=== PATIENT | female | born 1965 | race Caucasian/White ===

== ENCOUNTER 2021-12-26 12:21 | Outpatient (REF) | payer BC, SELFPAY ==
--- OUTSIDE RECORDS SUMMARY | 2021-12-26 12:24 | XMS_ITS | Clinical Summary ---
:1965 Author Organization [facility] Address [address] [place] [address] Care Team Providers Name Role Phone Unassigned, [...] for each transition of care or referral. [facility] Allergies Active Allergy Reactions Severity Noted Date Comments Sulfa Antibiotics Rash 08/31/2014 Medications Medication Sig Dispensed Refills Start Date End Date Status [place]-3 Fatty Acids 2 times daily 0 Active [...] age to complete this topic Care Teams Industrial Psychology Teacher Relationship Specialty Start Date End Date Unassigned, Provider PCP - General 06/10/[address] [place] [id number]
--- OUTSIDE RECORDS SUMMARY | 2021-12-26 12:24 | XMS_ITS | Encounter Summary ---
:1965 Author Organization [facility] Address [address] [place] [address] Care Team Providers Name Role Phone Unassigned, Provider Primary Care Provider Unavailable Reason for Visit Reason Comments SKIN LESION Encounter Details Date Type Department Care Team Description 03/13/2017 Office Visit Eddie Galicia MD, Basal cell carcinoma of right forehead (Primary Dx); Dermatology PhD Basal cell carcinoma of scalp; [address] [employer] [address] [place] [address] History of basal cell carcin paulo; [place] [address] [address] BCNS (basal cell nevus syndrome) [phone] [place] [address] (Wo rk) Social History Tobacco [...] vertex/parietal scalp. The biopsies were performed at [facility]. She was last seen by me there [...] return for Mohs surgery x 3 sites. LER OPERATOR documented in this encounter Plan of Treatment [...] anomalies documented in this encounter Care Teams Central Supply Tech Relationship Specialty Start Date End Date Unassigned, Provider PCP - General 06/10/[address] [place] [address] documented as of this encounter
--- OUTSIDE RECORDS SUMMARY | 2021-12-26 12:24 | XMS_ITS | Encounter Summary ---
:1965 Author Organization [facility] Address [address] [place] [address] Care Team Providers Name Role Phone Unassigned, Provider Primary Care Provider Unavailable Reason for Visit Reason Comments Reschedule Appointment Encounter Details Date Type Department Care Team Description 05/08/2017 Telephone [facility] Eddie Cedillo MD, Reschedule Appointment [address] [place] [address] [place] [address] [place] [address] (Wo rk) Social History Tobacco Use Types Packs/Day Years Used Date Smoking Tobacco: Never Assessed Sex Assigned at Date Recorded Not on file documented as of this encounter Nursing Notes Anitha Cristina - 07/02/2017 8:02 AM CST 07/02/17: Patient LVM to cancel mohs surgery. She states she will call back to reschedule. WIG MAKER Anitha Cristina - 05/08/2017 1:40 PM CST 05/08/17: Returned call to patient to reschedule. Mohs surgery scheduled with PL in on 06-11-17,there were no orders for patient so referral will not go to surgery schedulers if cancelled. WIG MAKER documented in this encounter Plan of Treatment Not on filedocumented as of this encounter Visit Diagnoses Not on filedocumented in this encounter Care Teams Decorative Greens Cutter Relationship Specialty Start Date End Date Unassigned, Provider PCP - General 06/10/01 [address] [place] [address] documented as of this encounter
--- OUTSIDE RECORDS SUMMARY | 2021-12-26 12:24 | XMS_ITS | Encounter Summary ---
:1965 Author Organization [facility] Address [address] [place] [address] Care Team Providers Name Role Phone Unassigned, Provider Primary Care Provider Unavailable Reason for Visit Reason Comments Surgery, To Schedule Encounter Details Date Type Department Care Team Description 07/02/2017 Telephone [facility] Eddie Eddy MD, Surgery, To Schedule [address] [place] [address] [place] [address] [place] [address] (Wo rk) Social History Tobacco [...] 07/02/17 or schedule consult if further questions. NEERING PATTERNMAKER documented in this encounter Plan of Treatment Not on filedocumented as of this encounter Visit Diagnoses Not on filedocumented in this encounter Care Teams Echocardiography Tech Relationship Specialty Start Date End Date Unassigned, Provider PCP - General 06/10/01 [address] [place] [address] documented as of this encounter
--- OUTSIDE RECORDS SUMMARY | 2021-12-26 12:24 | XMS_ITS | Encounter Summary ---
:1965 Author Organization [facility] Address [address] [place] [address] Care Team Providers Name Role Phone Unassigned, Provider Primary Care Provider Unavailable Encounter Details Date Type Department Care Team Description 01/04/1999 PN Conversion Only [facility] Rian Meier [address] [facility] [place] [address] [facility] [phone] [place], [place] [address] (Wo rk) Social History Tobacco Use Types Packs/Day Years Used Date Smoking Tobacco: Never Assessed Sex Assigned at Date Recorded Not on file documented as of this encounter Progress Notes Conversion, [facility] - 01/04/1999 12:01 AM CDT Progress Notes signed by at 12/10/00 2614 Author: Logan Conversion Service: (none) Author Type: (none) Filed: 08/23/10 1231 Note Time: 01/04/99 0001 Status: Signed Floor Press Operator: Logan Conversion IMPRESSION: Abdominal pain secondary to [...] and return for any worsening symptoms. CC: [id number] C: DOCUMENT: [id number] SCHEDULED RESOURCE: RIAN MEIER MD Electronically signed by [facility] at 03/27/2016 2:50 PM UPHOLSTERER INSIDE documented in this encounter Plan of Treatment Not on filedocumented as of this encounter Procedures Procedure Name Priority Date/Time Associated Comments Diagnosis XR ABD FLAT AND Routine 01/04/1999 3:14 PM Result s for this [facility] CDT procedure are i n the results section. WET PREP PARK Routine 01/04/1999 2:44 PM Results for this [facility] CDT procedure ar e in the results [...] PICIOUS-APPEARING MASSES OR CALCIFICATIONS ARE SEEN. A WA LD DEXTROCONVEXITY OF THE LUMBAR SPINE IS [...] - HP CONVERSION Hemoglobin Conc 36.5 gm/dL [place] RDW 11.6 11.0 - HP CONVERSION 15.0 [...] Specific 1.010 1.005 - 25 HP CONVERSION [place] pH Urine 5.5 4.5 - 7.5 HP [...] CONVERSION Test (Urine) (01/04/1999 2:44 PM CDT) [facility] Method Time Signature Urine Negative No [...] Rian Meier MD LAB_1 Performing Organization Address City/[facility]/ZIP Code Phon e Number HP CONVERSION (ABNORMAL) Wet Prep [facility] (01/04/1999 2:44 PM CDT) [facility] Method Time Signature Wet Prep [place] ? No normal HP CONVERSION [place] [facility] Wet Prep Negative No normal HP CONVERSION Trich [facility] Wet Prep WBC Few No normal HP CONVERSION [place] [facility] Wet Prep Moderate No normal HP CONVERSION Bacteria [facility] Wet Prep Clue Negative No normal HP CONVERSION Cells [facility] [place] Cl Wet Prep Positive (A) No normal HP CONVERSION [place] [facility] Wet Prep Negative No normal HP CONVERSION Amine Odor range [facility] Specimen (Source) Anatomical Collection Method Collection Time Re ceived Time Location / / Volume Laterality 01/04/1999 2:44 PM CDT Rian Meier MD LAB_1 Performing Organization Address City/State/ZIP Code Phon e Number HP CONVERSION documented in this encounter Visit Diagnoses Not on filedocumented in this encounter Care Teams Peanut Cleaner Relationship Specialty Start Date End Date Unassigned, Provider PCP - General 06/10/[address] [place] [address] documented as of this encounter
--- OUTSIDE RECORDS SUMMARY | 2021-12-26 12:24 | XMS_ITS | Encounter Summary ---
:1965 Author Organization [facility] Address [address] [place] [address] Care Team Providers Name Role Phone Unassigned, Provider Primary Care Provider Unavailable Reason for Visit Reason Onset Date Comments CONSULT 03/06/2017 Encounter Details Date Type Department Care Team Description 03/06/2017 Telephone [facility] Eddie Eddy MD, PhD CONSULT [address] [facility] [place] [address] [place], [place] [id number] (Wo rk) Social History Tobacco Use Types Packs/Day Years Used Date Smoking Tobacco: Never Assessed Sex Assigned at Date Recorded Not on file documented as of this encounter Nursing Notes Antonette Casiano RN - 03/06/2017 1:[address] Cedillo, consult scheduled with Ms. Kraus, former pt at [facility] who is exploring options for treatment of NBCCS and previously biopsied skin cancers. Appointment scheduled in . documented in this encounter Plan of Treatment Not on filedocumented as of this encounter Visit Diagnoses Not on filedocumented in this encounter Care Teams Construction Supervisor Relationship Specialty Start Date End Date Unassigned, Provider PCP - General 06/10/[address] [place] [address] documented as of this encounter
--- OUTSIDE RECORDS SUMMARY | 2021-12-26 12:24 | XMS_ITS | Encounter Summary ---
:1965 Author Organization [facility] Address [address] [place] [address] Care Team Providers Name Role Phone Unassigned, Provider Primary Care Provider Unavailable Reason for Referral Consult/Transfer Care (Routine) - Closed Specialty Diagnoses / Procedures Referred By Contact Refer red To Contact Diagnoses Recurrent basal cell carcinoma of forehead Basal cell carcinoma of scalp Eddie Cedillo MD, PhD [address] [place], [place] [address] Referral ID Status Reason Start Date Expiration Date Visits Requ ested Visits Authorized [id number] Closed 07/02/2017 10/01/2018 1 1 Scheduling Instructions Your provider has recommended an appoint ment with [facility]. A scheduler conveyor will contact you within the next 5 business days to assist you in setting up this appointment or you may call to schedule your appointment. This recommended service/s may not be covered by your insurance coverage. To find out your specific benefit coverage, please call t he number on your insurance card. RINARY MEDICINE SCIENTIST Reason for Visit Reason Comments Referral Encounter Details Date Type Department Care Team Description 07/02/2017 Notes/Orders Eddie Galicia MD, Recurrent basal cell carcinoma of forehead (Primary Dx); Dermatology PhD Basal cell carcinoma of scalp [address] [place] [address] [address] [phone] [place] [address] (Wo rk) Social History Tobacco [...] msg, spoke with pt): Home address : [address] [place] [address] Best Number/Person to Call: [phone] Remember, if contacting someone besides the pt, [...] neck documented in this encounter Care Teams Break Off Worker Relationship Specialty Start Date End Date Unassigned, Provider PCP - General 06/10/[address] [place] [address] documented as of this encounter
--- OUTSIDE RECORDS SUMMARY | 2021-12-26 12:24 | XMS_ITS | Continuity of Care Document ---
:1965 Author Organization [facility] Address [address] [address] [place] [address] Phone Care Team Providers Name Role Phone Campos Angel MD Unavailable Unavailable Allergies, Adverse Reactions, Alerts Substance Reaction Status Criticality TAPE, PERMEABLE ADHESIVE Rash Active No Info rmation Sulfa (Sulfonamide Antibiotics) Rash Active No Information Medications Medication Instructions Dosage Effective Dates Status Comment s (start - stop) TYLENOL (unknown take 2 tablet by Not Available - Active strength) oral route every 4 hours as needed IBUPROFEN (unknown take 1 capsule by Not Available - Acti ve strength) oral route every 4 hours as needed Cymbalta 60 mg take 1 capsule by 60 MG - Active capsule,delayed oral route every 2 release days Procedures Procedure Date Office Cons New/estab Mod Advance Directives Directive Yes / No Effective Date File Name No Information Encounters Encounter Practice Location Reason(s) Diagnoses Date Provider Provide rs Description For Visit Copied on Encounter Office Cons [facility] Right lower quadrant Jan- Stanley Referring New/estab [facility] Symptoms abdominal 0-201 Provider: Aniika MADIE, or painDietary [address]. Yudy [address] counseling and [address] [address], (chief surveillanceElevated Gretchen JARAMILLO H, [address] [place] complaint) blood-pressure Street [address] [place], [place], reading, w/o NE, Vu [place], [phone], diagnosis of [address], [place] [facility], [place], tel: [place], [phone]. [phone] tel: , [place]. [phone] tel: [phone] Family History Family Member Type Diagnosis Age At Onset Mother Problem (finding) Thyroid disorder Mother Problem (finding) gallbladder disease Mother Problem (finding) Melenoma Father Problem (finding) Type of lymphoma Payers Payer name Insurance type Covered democrat ID Authorization(s ) Esau Jones [facility] [id number] Social History Type Description Quantity Date Captured Comments Alcohol Use Details Caffeine Use Details Unknown Tobacco Use Status Current non-smoker Smoking Status Never smoker Non-Smoking Tobacco : No Details Available : No Details Available S Use Details Sex Female Vital Signs Date / Height Weight BMI Pulse Blood Temperature Respiratory Body Head Head Circ. Wt./Patel. BMI Pulse Inhaled Time: Rate Pressure Rate Surface Circumference Percenti le Percentile percentile Ox Ox Area 69.50 123.740 39.7 85 135/84 -2019 in kg 1 /min mm[Hg] 2:14 (272.80 kg/m PM lbs) carler (2) Chief Complaint And Reason For Visit From encounter dated '01/13/2019 14:30'. GI Symptoms or Concerns (chief complaint). Description: Gabriela Kraus is a 53-year-old woman with history of Gorlin syndrome, multiple skin cancers as a result, previous endometrial cancer and total hysterectomy and oophorectomy, parathyroid gland removal and jaw cyst removals, who presents for intermittent right-sided and right flank abdominal pain at least since the winter and spring of this year. Sheis sent by her primary care provider, Yudy Mathews.Gabriela says that this pain feels similar to kidney stone pain that she has had in the years past. However, she has had evaluation by urologist including CT abdomen and pelvis as well as specific urologic contrast studies of her kidneys and ureters without any abnormality detected. Last CT scan on October 20, 2018, did show a small hypodensity in the right lobe of the liver, most likely representing a cyst, which was stable from previous exams. She had colonic diverticulosis. She had a tiny gallstone versus small calcification in the gallbladder wall and evidence of prior appendectomy, hysterectomy and bilateral salpingo-oophorectomies. There is also a tiny lipoma in the proximal ascending colon.She did have a colonoscopy on September 04 of this year at [facility] with Dr. Yfn Fields. That exam was entirely normal with repeat recommended in 10 years.Gabriela states that usually this pain comes on and lasts for a couple of days at a fairly constant level before resolving. She does sometimes get the pain in the middle of the night and it will even wake her up at night. Sometimes the pain is related to eating particularly salty foods, but mostly it is not associated with eating or other GI functions. The pain is mostly in the right lower quadrant of the abdomen, but then seems to shoot through to her right mid back. She denies any other radiation. She has some mild nausea, but no vomiting. No change in appetite, dysphagia, or odynophagia. No constipation, diarrhea, melena, or hematochezia and no association of the pain with malfunction.She has occasionally taken NSAIDs for the pain, but denies any chronic NSAID use. No positional changes make the pain better or worse. The pain actually only comes on every few months, so currently it has been a few weeks since she has had pain episode.Gabriela is single. 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 She does not use tobacco. She rarely drinks alcohol.She does have a family history of gallbladder disease in her mother. Her father had lymphoma. She denies any other GI disorders, malignanciesin her family. Reason For Referral Reason For Referral No Information Plan Of Treatment Date Type Action Status Goal Lifestyle education regarding di et completed History Of Present Illness Encounter Date Complaint History Of Present I llness GI Symptoms or Concerns Gabriela Kraus is a 53-year-old woman with history of Gorlin syndrome, multiple skin cancers as a result, previous end ometrial cancer and total hysterectomy and oop horectomy, parathyroid gland removal and ja w cyst removals, who presents for intermi ttent right-sided and right flank abdomina l pain at least since the winter and spring of this year. She is sent by her primary care pro vider, Yudy Mathews.Gabriela says that this pain feels similar to kidney stone pain that she has had in the years past. However, she has had evaluation by urologist including CT abdomen and pelvis as well as specific urologic co ntrast studies of her kidneys and ureters without any abnormality detected. Last CT sc an on October 20, 2018, did show a small hypoden sity in the right lobe of the liver, most like ly representing a cyst, which was stable fro m previous exams. She had colonic diverticulos is. She had a tiny gallstone versus sma ll calcification in the gallbladder wall and evidence of prior appendectomy Functional Status Date Functional Assessment No Information Instructions Date Instruction Additional Informati on Lifestyle education regarding diet Relat ed to Dietary counseling and surveillance Assessments Type Assessment Date assessment Right lower quadrant abdominal pain assessment Dietary counseling and surveillance assessment Elevated blood-pressure reading w/o diag nosis of hypertension impression Gabriela Kraus is a 53-year-old woman with a history of Gorlin syndrome and multiple skin cancers, jaw cysts, and endometrial cancer probably related to Gorlin syndro me status post total hysterectomy and salpingo-oophorectomy, who presents for episodic right lower quadrant abdominal pain radiating to her mid right back and has been present for the last few months. She has no other warning signs. She felt that her symptoms were similar to previous kidney stones, but she has had full evaluation with Urology without any abno rmalities detected. She has had specifically CT abdomen and pelvis in October of this year as well as colonoscopy in September of is year, neither of which showed any significant abnormaliti es. There was possible small gallstone noted on CT scan, mary ferguson.Most likely, her symptoms are not GI related given very l ittle association with GI function, eating or bowel movements. However, we did discuss the possibility of gallbladder r elated pain given that she has a gallstone on CT scan and had s ome occasional postprandial symptoms and night symptoms . However, it would be very atypical to feel the pain predomina ntly in the right lower quadrant with a gallbladder even t hilary it does sometimes radiate up to the right back. For now, I would not pursue any further evaluation of this gi ruperto her intermittent symptoms, but at some point, we could co nsider HIDA scan if symptoms persisted and were more consist ent with gallbladder pain.I think it is equally or possibly m ore likely that she is having adhesive related pain, which she has had in the past, although she felt that it was a little b it different then. We discussed that very likely there would b e nothing to do about this, if it was the cause of her pain un less she were to have full blown obstruction, which is unlikel y.I do not think she meets criteria for functional GI disorde r unless her symptoms were to become more GI specific. With pr evious colonoscopy and CT scan, further evaluation is unlikely to be helpful from a GI perspective. She has no other upper s ymptoms to indicate upper endoscopy at this time.She will fo llow up with her primary care doctor and contact me shoul d her symptoms become more persistent or have more GI features and we could discuss further workup as detailed above.Thank y ou so much for involving us in the care of this very pl easant woman. Patient Care Teams Name Effective Dates (start - stop) Status M embshar No Information
[2021-12-26 13:00] LABS: Basophils Absolute Auto 0.04 K/uL (0.00-0.30); Basophils Percent Auto 0.6 % (0.0-3.0); Eosinophils Absolute Auto 0.28 K/uL (0.00-0.50); Eosinophils Percent Auto 4.5 % (0.0-7.0); Hematocrit 42.7 % (33.0-51.0); Hemoglobin* 14.3 gm/dL (12.0-16.0); Immature Granulocytes Abs Auto 0.01 K/uL (0.00-0.30); Lymphocytes Absolute Auto 1.69 K/uL (0.90-2.90); Lymphocytes Percent Auto 27.4 % (20-44); Mean Corpuscular HGB Conc 34 gm/dL (32-36); Mean Corpuscular Hemoglobin 31 pg (26-34); Mean Corpuscular Volume 92 fL (80-100); Monocytes Percent Auto 7.1 % (0.0-11.0); Neutrophils Percent Auto 60.2 % (42.0-72.0); Platelet Count* 366 K/uL (140-440); RDW Coefficient of Variation % 13.1 % (11.5-15.5); Red Blood Count 4.63 m/uL (4.00-5.20); White Blood Count* 6.16 K/uL (4.50-11.00)
[2021-12-26 13:10] LABS: Slide Review Reflex No
[2021-12-26 13:50] LABS: Albumin* 4.2 g/dL (3.3-5.0)
[2021-12-26 13:51] LABS: Chloride* 101 mmol/L (96-114); Potassium* 4.1 mmol/L (3.6-5.1); Sodium* 137 mmol/L (135-149)
[2021-12-26 13:53] LABS: Alkaline Phosphatase* 131 U/L (40-150); Aspartate Amino Transferase* 26 U/L (12-35); Bilirubin Total* 0.6 mg/dL (0.1-1.5); Blood Urea Nitrogen* 21 mg/dL (7-30); Carbon Dioxide* 28 mmol/L (20-32); Creatinine* 0.8 mg/dL (0.5-1.5); Estimated Glomerular Filt Rate 86 ml/min; Gamma Glutamyl Transpeptidase* 20 U/L (8-55); Total Protein* 7.1 g/dL (6.0-8.3)
[2021-12-26 13:54] LABS: Alanine Aminotransferase* 16 U/L (4-35); Calcium* 9.2 mg/dL (8.4-10.6); Glucose* 105 mg/dL (60-115)
[2021-12-26 14:28] LABS: Ferritin* 60.8 ng/mL (11.1-264.0)
[2021-12-26 14:55] LABS: Vitamin B12* 437 pg/mL (243-894)
[2021-12-27 08:50] LABS: Thyroid Peroxidase (TPO) Ab 0.6 IU/mL (0.0-9.0)
[2021-12-27 12:19] LABS: CRP, High Sensitivity 6.7 mg/L (<=3.0); Ceruloplasmin 28 mg/dL (16-45); Homocysteine, Total 8 umol/L (0-15)
[2021-12-27 12:43] LABS: Cortisol, Serum 12.3 ug/dL
[2021-12-27 13:14] LABS: Insulin, Random 14 uIU/mL
[2021-12-27 21:06] LABS: Folate, Serum 16.8 ng/mL (>=5.9)
[2021-12-28 12:06] LABS: Copper, Serum/Plasma 151.8 ug/dL (80.0-155.0)
== END 2021-12-26 12:22 | disposition home or self-care (01) ==
LOC: NPINS 12:21
PROVIDERS: PCP Internal Medicine; Visit Provider Family Medicine
DX: E55.9 Vitamin D deficiency, unspecified (principal); Z87.42 Personal history of other diseases of the female genital tract; R73.9 Hyperglycemia, unspecified; R91.1 Solitary pulmonary nodule
CPT/HCPCS: 80053; 82390; 82525; 82533; 82607; 82728; 82746; 82977; 83090; 83525; 84630; 85025; 86141; 86376

== ENCOUNTER 2021-12-26 13:27 | Outpatient (CLI) | payer BC, SELFPAY ==
--- OUTSIDE RECORDS SUMMARY | 2021-12-26 10:13 | XMS_ITS | Encounter Summary ---
:1965 Author Organization [facility] Address [address] [place] [address] Care Team Providers Name Role Phone Unassigned, Provider Primary Care Provider Unavailable Reason for Visit Reason Comments SKIN LESION Encounter Details Date Type Department Care Team Description 03/13/2017 Office Visit Eddie Galicia MD, Basal cell carcinoma of right forehead (Primary Dx); Dermatology PhD Basal cell carcinoma of scalp; [address] [address] [place] [address] History of basal cell carcin paulo; [place] [address] BLVD BCNS (basal cell nevus syndrome) [phone] [place] [address] (Wo rk) Social History Tobacco Use Types Packs/Day Years Used Date Smoking Tobacco: Never Assessed Sex Assigned at Date Recorded Not on file documented as of this encounter Progress Notes Eddie Cedillo MD, PhD - 03/13/2017 3:45 PM CST CHIEF COMPLAINT: Basal cell nevus syndrome. HISTORY OF PRESENT ILLNESS: Ms. Gabriela Kraus is a 51 y.o. woman seen in the Dermatologic Surgery Clinic. The patient is here to discuss treatment options for biopsy-proven BCCs on her right superior forehead and right vertex/parietal scalp. The biopsies were performed at [facility]. She was last seen by me there approximately 1 1/2 years ago. 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 She had surgery for endometrial cancer in January 2016. MEDICATIONS: Reviewed and noted in EMR. ALLERGIES: None. Reviewed and noted in EMR. FAMILY HISTORY: Non-contributory. No family history of skin cancer. REVIEW OF SYSTEMS: Was unremarkable for any relevant issues for 10 point review of systems check. The patient had no other skin issues or constitutional symptoms, including fever, chills, malaise. OBJECTIVE: On examination, the patient is a healthy woman in no acute distress. She was alert and oriented x3. On her face, there were multiple scars with no evidence of recurrence. On her right forehead, there was a 5 mm erythematous macule. On her vertex and right vertex scalp, there were two pearly papules. ASSESSMENT AND PLAN: 1. Basal cell carcinomas of the right superior forehead, right vertex scalp, and vertex scalp. She will return for Mohs surgery of all three sites. One of the three sites will need a frozen biopsy. 2. History of BCCs. There was no evidence of recurrence. 3. Basal cell nevus syndrome. We discussed future follow up plans and skin checks. She would like tocontact the clinic if she notices anything suspicious. She will return for Mohs surgery x 3 sites. MBLER BRAZER documented in this encounter Plan of Treatment Not on filedocumented as of this encounter Visit Diagnoses Diagnosis Basal cell carcinoma of right forehead - Primary Basal cell carcinoma of skin of other an d unspecified parts of face Basal cell carcinoma of scalp Basal cell carcinoma of scalp and skin o f neck History of basal cell carcinoma Personal history of other malignant neop lasm of skin BCNS (basal cell nevus syndrome) Other specified congenital anomalies documented in this encounter Care Teams Compensation And Benefits Analyst Relationship Specialty Start Date End Date Unassigned, Provider PCP - General 06/10/[address] [place] [address] documented as of this encounter
--- OUTSIDE RECORDS SUMMARY | 2021-12-26 10:13 | XMS_ITS | Encounter Summary ---
:1965 Author Organization [facility] Address [address] [place] [address] Care Team Providers Name Role Phone Unassigned, Provider Primary Care Provider Unavailable Reason for Referral Consult/Transfer Care (Routine) - Closed Specialty Diagnoses / Procedures Referred By Contact Refer red To Contact Diagnoses Recurrent basal cell carcinoma of forehead Basal cell carcinoma of scalp Eddie Cedillo MD, PhD [address] [place], [place] [address] Referral ID Status Reason Start Date Expiration Date Visits Requ ested Visits Authorized [id number] Closed 07/02/2017 10/01/2018 1 1 Scheduling Instructions Your provider has recommended an appoint ment with [facility]. A assembler fitter will contact you within the next 5 business days to assist you in setting up this appointment or you may call to schedule your appointment. This recommended service/s may not be covered by your insurance coverage. To find out your specific benefit coverage, please call t he number on your insurance card. EXAMINER Reason for Visit Reason Comments Referral Encounter Details Date Type Department Care Team Description 07/02/2017 Notes/Orders Eddie Galicia MD, Recurrent basal cell carcinoma of forehead (Primary Dx); Dermatology PhD Basal cell carcinoma of scalp [address] [place] [address] [address] [phone] [place] [address] (Wo rk) Social History Tobacco Use Types Packs/Day Years Used Date Smoking Tobacco: Never Assessed Sex Assigned at Date Recorded Not on file documented as of this encounter Progress Notes Jonnie, Anitha L - 07/02/2017 8:04 AM CST Mohs / Derm Surg Referral Site 1: Site 2: Site 3: Site 4: Site R superior forehead R vertex/partietal scalp Diagnosis BCC BCC Size (optional) <1 cm 1-2 cm >2 cm Mohs or Exc Mohs Photos (Copy & Paste or type No Photo): How was pt informed? (ex: left msg, spoke with pt): Home address : [address] [place] [address] Best Number/Person to Call: [phone] Remember, if contacting someone besides the pt, make sure we have a verbal disclosure on file for that person. Notes: This is not a new referral. Orders were entered for tracking purposes as order was not entered and patient has cancelled appts. Richelle Duenas - 07/02/2017 8:04 AM CST 07/10/17: LVM Anitha Cristina - 07/02/2017 8:04 AM CST 07/18/17: LVM Anitha Cristina - 07/02/2017 8:04 AM CST 07/25/17: Letter sent. Three attempts made to reach patient with no answer/call back. documented in this encounter Plan of Treatment Scheduled Referrals Name Type Priority Associated Diagnoses Order S chedule Dermatology Surgery/Mohs Referral Routine Recurrent basal cell Ordered: 07/02/2017 Consult Adult carcinoma of for ehead Basal cell carcinoma of scalp documented as of this encounter Visit Diagnoses Diagnosis Recurrent basal cell carcinoma of forehe ad - Primary Basal cell carcinoma of skin of other an d unspecified parts of face Basal cell carcinoma of scalp Basal cell carcinoma of scalp and skin o f neck documented in this encounter Care Teams Associate Oracle Retail Relationship Specialty Start Date End Date Unassigned, Provider PCP - General 06/10/[address] [place] [address] documented as of this encounter
--- OUTSIDE RECORDS SUMMARY | 2021-12-26 10:13 | XMS_ITS | Encounter Summary ---
:1965 Author Organization [facility] Address [address] [place] [address] Care Team Providers Name Role Phone Unassigned, Provider Primary Care Provider Unavailable Reason for Visit Reason Onset Date Comments CONSULT 03/06/2017 Encounter Details Date Type Department Care Team Description 03/06/2017 [facility]phone [facility] Eddie Eddy MD, PhD CONSULT [address] [facility] [place] [address] [place], [place] [id number] (Wo rk) Social History Tobacco Use Types Packs/Day Years Used Date Smoking Tobacco: Never Assessed Sex Assigned at Date Recorded Not on file documented as of this encounter Nursing Notes Antonette Casiano RN - 03/06/2017 1:[address] Cedillo, consult scheduled with Ms. Kraus, former pt at [facility] who is exploring options for treatment of NBCCS and previously biopsied skin cancers. Appointment scheduled in . documented in this encounter Plan of Treatment Not on filedocumented as of this encounter Visit Diagnoses Not on filedocumented in this encounter Care Teams Senior Graduate Advisor Relationship Specialty Start Date End Date Unassigned, Provider PCP - General 06/10/[address] [place] [address] documented as of this encounter
--- OUTSIDE RECORDS SUMMARY | 2021-12-26 10:13 | XMS_ITS | Encounter Summary ---
:1965 Author Organization [facility] Address [address] [place] [address] Care Team Providers Name Role Phone Unassigned, Provider Primary Care Provider Unavailable Encounter Details Date Type Department Care Team Description 01/04/1999 PN Conversion Only [facility] Rian Meier [address] [facility] [place] [address] [address] [facility] [phone] [place], [place] [address] (Wo rk) Social History Tobacco Use Types Packs/Day Years Used Date Smoking Tobacco: Never Assessed Sex Assigned at Date Recorded Not on file documented as of this encounter Progress Notes Conversion, [facility] - 01/04/1999 12:01 AM CDT Progress Notes signed by at 12/10/00 [id number] Author: Logan Conversion Service: (none) Author Type: (none) Filed: 08/23/10 1231 Note Time: 01/04/99 0001 Status: Signed Coal Chute Worker: Logan Conversion IMPRESSION: Abdominal pain secondary to constipation, and vaginal yeast infection. SUBJECTIVE: The patient is a 33-year-old woman who presents to Urgent Care with abdominal discomfort which has been worsening over the past hour. She has had some generalized weakness and some nausea with this. She has not had any vomiting, fever. She had a normal bowel movement today. Last menstrual period was ten days ago. She is ALLERGIC TO SULFA. She takes no medications, and denies any significant past medical history. OBJECTIVE: VITAL SIGNS: T: 98.6, P: 78, R: 16. BP: 110/72. GENERAL: She appears uncomfortable, but not toxic. HEENT: Normal. HEART AND LUNGS: Normal. ABDOMEN: Soft. Tender only to deep palpation in the right lower quadrant. There is no guarding or rebound. White blood cell count is 5.4. Urine test is negative. Urinalysis is normal. T&Y is positive for yeast. X-ray upright and flat shows a very large amount of stool in the right side of the colon. ASSESSMENT: Abdominal pain secondary to constipation, and vaginal yeast infection. PLAN: Diflucan 150 mg p.o. times one. I recommended the patient take a laxative tonight to encourage bowel movements, and return for any worsening symptoms. CC: YUNG:[id number] C: DOCUMENT: [id number] SCHEDULED RESOURCE: RIAN MEIER MD Electronically signed by [facility] [place] [facility] at 03/27/2016 2:50 PM SATELLITE TV INSTALLER documented in this encounter Plan of Treatment Not on filedocumented as of this encounter Procedures Procedure Name Priority Date/Time Associated Comments Diagnosis XR ABD FLAT AND Routine 01/04/1999 3:14 PM Result s for this UPRIGHT CDT procedure are i n the results section. WET PREP PARK Routine 01/04/1999 2:44 PM Results for this [facility] CDT procedure ar e in the results section. URINALYSIS COMPLETE Routine 01/04/1999 2:44 PM Re sults for this HOLD CULTURE CDT procedure are i n the results section. COMPLETE BLOOD Routine 01/04/1999 2:44 PM Results for this COUNT-NO DIFF CDT procedure are in the results section. TEST Routine 01/04/1999 2:44 PM Results for this (URINE) CDT procedure are i n the results section. documented in this encounter Results XR Abd Flat And Upright (01/04/1999 3:14 PM CDT) Anatomical Region Laterality Modality Abdomen Other Specimen (Source) Anatomical Location Collection Method / Collectio n Time Received Time / Laterality Volume Impressions 01/04/1999 3:14 PM CDT : ?NONSPECIFIC ABDOMEN. FINDINGS: ?TWO-VIEW ABDOMEN, . ?NO OBSTRUCTIVE BOWEL GAS PATTERN O R FREE AIR IS SEEN. ?MODERATE RETAINED BOWEL CONTENT IN THE COLON, ESPECIALLY IN ?THE AREA OF THE ASCENDING COLON. ? ?NO SUSPICIOUS-APPEARING ?MASSES OR CALCIFICATIONS ARE SEEN. ??A MILD DEXTROCONVEXITY ?OF THE LUMBAR SPINE IS SEEN. TECH-ID : ? BJR TRANS-ID: ? STX Narrative 01/04/1999 3:14 PM CDT CLINICAL DATA: ?ABDOMEN AND NAUSEA FOR ONE DAY Procedure Note Trevor Gasca - 07/12/2016 CLINICAL DATA: ABDOMEN AND NAUSEA FOR ONE DAY IMPRESSION : NONSPECIFIC ABDOMEN. FINDINGS: TWO-VIEW ABDOMEN, . NO OBSTRUCTIVE BOWEL GAS PATTERN OR EMRE E AIR IS SEEN. MODERATE RETAINED BOWEL CONTENT IN THE COLON, ESPECIALLY IN THE AREA OF THE ASCENDING COLON. NO LIBAN PICIOUS-APPEARING MASSES OR CALCIFICATIONS ARE SEEN. A NC LD DEXTROCONVEXITY OF THE LUMBAR SPINE IS SEEN. TECH-ID : BJR TRANS-ID: STX Rian Meier MD RAD GD Complete Blood Count-No Diff (01/04/1999 2:44 PM CDT) P athologist Signature White Blood Cell 5.4 3.8 - 11.0 HP CONVERSIO N Count K/cmm Red Blood Cell 4.34 3.70 - HP CONVERSION Count 5.20 m/cmm Hemoglobin 14.2 11.8 - HP CONVERSION 15.5 gm/dL Hematocrit 41.9 35.0 - HP CONVERSION 46.0 % Mean Corpuscular 96.5 80.0 - HP CONVERSION Volume 100.0 fl Mean Corpuscular 32.7 27.0 - HP CONVERSION Hemoglobin 34.0 pg Mean Corpuscular 33.9 32.0 - HP CONVERSION Hemoglobin Conc 36.5 gm/dL [place] RDW 11.6 11.0 - HP CONVERSION 15.0 % Platelet Count 377 140 - 450 HP CONVERSION k/cmm Specimen (Source) Anatomical Collection Method Collection Time Re ceived Time Location / / Volume Laterality 01/04/1999 2:44 PM CDT Rian Meier MD LAB_1 Performing Organization Address City/State/ZIP Code Phon e Number HP CONVERSION (ABNORMAL) Urinalysis Complete Hold Culture (01/04/1999 2:44 PM CDT) Patholo gist Method Time Signature U Specific 1.010 1.005 - 25 HP CONVERSION [place] pH Urine 5.5 4.5 - 7.5 HP CONVERSION Protein Urine Negative Neg-Trac HP CONVERSION Glucose, Negative Neg-Trac HP CONVERSION Qualitative U Ketones Negative Negative HP CONVERSION U BILI Negative Negative HP CONVERSION Blood Urine Negative Negative HP CONVERSION Nitrite Urine Negative Negative HP CONVERSION Leukocyte Negative Negative HP CONVERSION Esterase Urine Urobilinogen Negative 0.2 - 1.0 HP CONVERSION Urine White Blood 0-2 0 - 3 /HPF HP CONVERSION Cells Urine Red Blood Cells 0-2 0 - 3 /HPF HP CONVERSION Urine Epithelial Cells Few Few /HPF HP CONVERSION Bacteria Urine Few (A) None HP CONVERSION Hold For Yes No normal HP CONVERSION Culture? range Specimen (Source) Anatomical Collection Method Collection Time Re ceived Time Location / / Volume Laterality 01/04/1999 2:44 PM CDT Rian Meier MD LAB_1 Performing Organization Address City/State/ZIP Code Phon e Number HP CONVERSION Test (Urine) (01/04/1999 2:44 PM CDT) [facility] Method Time Signature Urine Negative No normal HP CONVERSION Test range Comment: The sensitivity of this assay is 25 mIU/ mL. This test can detect as early as 10-12 days after conception. It may be positive before a first missed menses. A negative result does no t rule out an early . Specimen (Source) Anatomical Collection Method Collection Time Re ceived Time Location / / Volume Laterality 01/04/1999 2:44 PM CDT Rian Meier MD LAB_1 Performing Organization Address City/[facility]/ZIP Code Phon e Number HP CONVERSION (ABNORMAL) Wet Prep [facility] (01/04/1999 2:44 PM CDT) [facility] Method Time Signature Wet Prep [place] ? No normal HP CONVERSION [facility] Wet Prep Negative No normal HP CONVERSION [facility] Wet Prep WBC Few No normal HP CONVERSION [place] [facility] Wet Prep Moderate No normal HP CONVERSION Bacteria [facility] Wet Prep Clue Negative No normal HP CONVERSION Cells [facility] [place] [facility] Wet Prep Positive (A) No normal HP CONVERSION Yeast [place] [facility] Wet Prep Negative No normal HP CONVERSION Amine Odor range [facility] Specimen (Source) Anatomical Collection Method Collection Time Re ceived Time Location / / Volume Laterality 01/04/1999 2:44 PM CDT Rian Meier MD LAB_1 Performing Organization Address City/State/ZIP Code Phon e Number HP CONVERSION documented in this encounter Visit Diagnoses Not on filedocumented in this encounter Care Teams Senior Geotechnical Engineer Relationship Specialty Start Date End Date Unassigned, Provider PCP - General 06/10/[address] [place] [address] documented as of this encounter
--- OUTSIDE RECORDS SUMMARY | 2021-12-26 10:13 | XMS_ITS | Encounter Summary ---
:1965 Author Organization [facility] Address [address] [place] [address] Care Team Providers Name Role Phone Unassigned, Provider Primary Care Provider Unavailable Reason for Visit Reason Comments Reschedule Appointment Encounter Details Date Type Department Care Team Description 05/08/2017 Telephone [facility] Eddie Cedillo MD, Reschedule Appointment [address] [email or web address] [address] [place] [address] [place] [address] (Wo rk) Social History Tobacco Use Types Packs/Day Years Used Date Smoking Tobacco: Never Assessed Sex Assigned at Date Recorded Not on file documented as of this encounter Nursing Notes Anitha Cristina - 07/02/2017 8:02 AM CST 07/02/17: Patient LVM to cancel mohs surgery. She states she will call back to reschedule. ICATE MAKER Anitha Cristina - 05/08/2017 1:40 PM CST 05/08/17: Returned call to patient to reschedule. Mohs surgery scheduled with PL in on 06-11-17,there were no orders for patient so referral will not go to surgery schedulers if cancelled. ICATE MAKER documented in this encounter Plan of Treatment Not on filedocumented as of this encounter Visit Diagnoses Not on filedocumented in this encounter Care Teams Valet Attendant Relationship Specialty Start Date End Date Unassigned, Provider PCP - General 06/10/01 [address] [place] [address] documented as of this encounter
--- OUTSIDE RECORDS SUMMARY | 2021-12-26 10:13 | XMS_ITS | Clinical Summary ---
:1965 Author Organization [facility] Address [address] [place] [address] Care Team Providers Name Role Phone Unassigned, Provider Primary Care Provider Unavailable Source Comments You are receiving this document as you are listed as the primary care provider,follow-up provider, or the patient has been referred to you for consultation.This is in compliance with the Medicare and Medicaid EHR Incentive Program,which states Providers who transition their patient to another setting of careor provider of care or refers their patient to another provider of care shouldprovide summarycare record for each transition of care or referral. [facility] Allergies Active Allergy Reactions Severity Noted Date Comments Sulfa Antibiotics Rash 08/31/2014 Medications Medication Sig Dispensed Refills Start Date End Date Status [place]-3 Fatty Acids 2 times daily 0 Active (FISH OIL OR) buPROPion (WELLBUTRIN Take 300 mg by 0 02/18/2017 Active XL) 300 MG 24 hour mouth. release tablet Multiple Take 1 Cap by 0 Active Vitamins-Minerals mouth. (MULTIVITAL OR) prazosin (MINIPRESS) 1 Take 2 mg by 0 02/18/2017 Active MG capsule mouth. venlafaxine (EFFEXORXR) Take once daily 0 02/18/2017 Active 37.5 MG 24 hour release capsule Active Problems Problem Noted Date BCNS (basal cell nevus syndrome) 03/15/2017 Social History Tobacco Use Types Packs/Day Years Used Date Smoking Tobacco: Never Assessed Sex Assigned at Date Recorded Not on file Plan of Treatment Health Maintenance Due Date Last Done Comments Cervical Cancer Screening Due 1965 Colon Cancer Screening Plan Due 1965 Hep C Screening (Preventive 1965 Services) HepB (1) 1965 Mammogram 1965 COVID-19 Vaccine (#1) 1965 HIV Screening (Preventive 1980 Services) Adult Preventive Visit 1982 DTaP/Tdap/Td (1 - Tdap) 1983 Cholesterol 2009 Zoster/Shingles (1 of 2) 2014 Influenza (#1) 2022 HepA Aged Out No longer eligib le based on patient's age to complete this topic Hib Aged Out No longer eligib le based on patient's age to complete this topic IPV (Polio) Aged Out No longer eligib le based on patient's age to complete this topic MCV4 Aged Out No longer eligib le based on patient's age to complete this topic Pneumococcal Aged Out No longer eligib le based on patient's age to complete this topic Care Teams Sandblast Operator Relationship Specialty Start Date End Date Unassigned, Provider PCP - General 06/10/[address] [place] [id number]
--- OUTSIDE RECORDS SUMMARY | 2021-12-26 10:13 | XMS_ITS | Encounter Summary ---
:1965 Author Organization [facility] Address [address] [place] [address] Care Team Providers Name Role Phone Unassigned, Provider Primary Care Provider Unavailable Reason for Visit Reason Comments Surgery, To Schedule Encounter Details Date Type Department Care Team Description 07/02/2017 Telephone [facility] Eddie Eddy MD, Surgery, To Schedule [address] [place] [address] [place] [address] [place] [address] (Wo rk) Social History Tobacco Use Types Packs/Day Years Used Date Smoking Tobacco: Never Assessed Sex Assigned at Date Recorded Not on file documented as of this encounter Nursing Notes Anitha Cristina - 07/25/2017 10:46 AM CDT 07/25/17: Letter sent. Three attempts made to reach patient with no answer/call back. Samantha Elam RN - 07/02/2017 10:34 AM CST Placed call to patient no answer- left message to call back. Per Dr. Cedillo check in with patient to possibly reschedule mohs surgery that was cancelled today 07/02/17 or schedule consult if further questions. MATE documented in this encounter Plan of Treatment Not on filedocumented as of this encounter Visit Diagnoses Not on filedocumented in this encounter Care Teams Cloth Examiner Hand Relationship Specialty Start Date End Date Unassigned, Provider PCP - General 06/10/01 [address] [place] [address] documented as of this encounter
[2021-12-26 12:57] LABS: Cholesterol* 248 mg/dL (90-199)
[2021-12-26 12:58] LABS: HDL Cholesterol* 52 mg/dL (>=50); LDL Cholesterol Calculated 140 mg/dL (<100); Triglycerides* 279 mg/dL (40-149)
== END 2021-12-26 13:28 | disposition home or self-care (01) ==
PROVIDERS: PCP Internal Medicine; Visit Provider Internal Medicine
DX: E78.5 Hyperlipidemia, unspecified (principal)
CPT/HCPCS: 80061

== ENCOUNTER 2022-02-12 13:34 | Outpatient (REF) | payer BC, SELFPAY ==
--- OUTSIDE RECORDS SUMMARY | 2022-02-12 13:38 | XMS_ITS | Encounter Summary ---
:1965 Author Organization [facility] Address [address] [place] [address] Care Team Providers Name Role Phone Unassigned, Provider Primary Care Provider Unavailable Reason for Visit Reason Comments Surgery, To Schedule Encounter Details Date Type Department Care Team Description 07/02/2017 Telephone [facility] Eddie Eddy MD, Surgery, To Schedule [address] [place] [address] [place] [address] [place] [address] (Wo rk) Social History Tobacco [...] 07/02/17 or schedule consult if further questions. RVISOR FLESHING documented in this encounter Plan of Treatment Not on filedocumented as of this encounter Visit Diagnoses Not on filedocumented in this encounter Care Teams Aircraft Quality Control Inspector Relationship Specialty Start Date End Date Unassigned, Provider PCP - General 06/10/01 [address] [place] [address] documented as of this encounter
--- OUTSIDE RECORDS SUMMARY | 2022-02-12 13:38 | XMS_ITS | Encounter Summary ---
:1965 Author Organization [facility] Address [address] [place] [address] Care Team Providers Name Role Phone Unassigned, Provider Primary Care Provider Unavailable Reason for Referral Consult/Transfer Care (Routine) - Closed Specialty Diagnoses / Procedures Referred By Contact Refer red To Contact Diagnoses Recurrent basal cell carcinoma of forehead Basal cell carcinoma of scalp Eddie Cedillo MD, PhD [address] [place], [place] [address] Referral ID Status Reason Start Date Expiration Date Visits Requ ested Visits Authorized [id number] Closed 07/02/2017 10/01/2018 1 1 Scheduling Instructions Your provider has recommended an appoint ment with [facility]. A patient scheduler will contact you within the next 5 business days to assist you in setting up this appointment or you may call to schedule your appointment. This recommended service/s may not be covered by your insurance coverage. To find out your specific benefit coverage, please call t he number on your insurance card. CTOR OF REGULATORY AFFAIRS Reason for Visit Reason Comments Referral Encounter Details Date Type Department Care Team Description 07/02/2017 Notes/Orders Eddie Galicia MD, Recurrent basal cell carcinoma of forehead (Primary Dx); Dermatology PhD Basal cell carcinoma of scalp [address] [place] [address] [address] [phone] [place] [address] (Wo rk) Social History Tobacco [...] msg, spoke with pt): Home address : [address] [place] [address] Best Number/Person to Call: [phone] Remember, if contacting someone besides the pt, [...] neck documented in this encounter Care Teams Arson And Bomb Investigator Relationship Specialty Start Date End Date Unassigned, Provider PCP - General 06/10/[address] [place] [address] documented as of this encounter
--- OUTSIDE RECORDS SUMMARY | 2022-02-12 13:38 | XMS_ITS | Encounter Summary ---
:1965 Author Organization [facility] Address [address] [place] [address] Care Team Providers Name Role Phone Unassigned, Provider Primary Care Provider Unavailable Reason for Visit Reason Onset Date Comments CONSULT 03/06/2017 Encounter Details Date Type Department Care Team Description 03/06/2017 Telephone [facility] Eddie Eddy MD, PhD CONSULT [address] [facility] [place] [address] [place], [place] [id number] (Wo rk) Social History Tobacco Use Types Packs/Day Years Used Date Smoking Tobacco: Never Assessed Sex Assigned at Date Recorded Not on file documented as of this encounter Nursing Notes Antonette Casiano RN - 03/06/2017 1:[address] Cedillo, consult scheduled with Ms. Kraus, former pt at [facility] who is exploring options for treatment of NBCCS and previously biopsied skin cancers. Appointment scheduled in . documented in this encounter Plan of Treatment Not on filedocumented as of this encounter Visit Diagnoses Not on filedocumented in this encounter Care Teams Medical Surgery Nurse Relationship Specialty Start Date End Date Unassigned, Provider PCP - General 06/10/[address] [place] [address] documented as of this encounter
--- OUTSIDE RECORDS SUMMARY | 2022-02-12 13:38 | XMS_ITS | Encounter Summary ---
:1965 Author Organization Pending sale to [facility] Address [address] [place] [address] Care Team Providers Name Role Phone Unassigned, Provider Primary Care Provider Unavailable Encounter Details Date Type Department Care Team Description 01/04/1999 PN Conversion Only [facility] Rian Meier [address] [facility] [place] [address] [address] [facility] [phone] [place], [place] [address] (Wo rk) Social History Tobacco Use Types Packs/Day Years Used Date Smoking Tobacco: Never Assessed Sex Assigned at Date Recorded Not on file documented as of this encounter Progress Notes Conversion, [facility] - 01/04/1999 12:01 AM CDT Progress Notes signed by at 12/10/00 [id number] Author: Logan Conversion Service: (none) Author Type: (none) Filed: 08/23/10 1231 Note Time: 01/04/99 0001 Status: Signed Digital Photographic Printer: Logan Conversion IMPRESSION: Abdominal pain secondary to [...] and return for any worsening symptoms. CC: [id number] C: DOCUMENT: [id number] SCHEDULED RESOURCE: RIAN MEIER MD CUTTER documented in this encounter Plan of Treatment Not on filedocumented as of this encounter Procedures Procedure Name Priority Date/Time Associated Comments Diagnosis XR ABD FLAT AND Routine 01/04/1999 3:14 PM Result s for this [facility] CDT procedure are i n the results section. WET PREP PARK Routine 01/04/1999 2:44 PM Results for this [facility] CDT procedure ar e in the [...] PICIOUS-APPEARING MASSES OR CALCIFICATIONS ARE SEEN. A RI LD DEXTROCONVEXITY OF THE LUMBAR SPINE IS [...] - HP CONVERSION Hemoglobin Conc 36.5 gm/dL [place] RDW 11.6 11.0 - HP CONVERSION 15.0 [...] Specific 1.010 1.005 - 25 HP CONVERSION [place] pH Urine 5.5 4.5 - 7.5 HP [...] CONVERSION Test (Urine) (01/04/1999 2:44 PM CDT) [facility] Method Time Signature Urine Negative No [...] Rian Meier MD LAB_1 Performing Organization Address City/[facility]/ZIP Code Phon e Number HP CONVERSION (ABNORMAL) Wet Prep [facility] (01/04/1999 2:44 PM CDT) [facility] Method Time Signature Wet Prep [place] ? No normal HP CONVERSION [place] [facility] Wet Prep Negative No normal HP CONVERSION Trich [facility] Wet Prep WBC Few No normal HP CONVERSION Park [facility] Wet Prep Moderate No normal HP CONVERSION Bacteria [facility] Wet Prep Clue Negative No normal HP CONVERSION Cells [facility] Foard Cl Wet Prep Positive (A) No normal HP CONVERSION Yeast [place] [facility] Wet Prep Negative No normal HP CONVERSION Amine Odor range [facility] Specimen (Source) Anatomical Collection Method Collection Time Re ceived Time Location / / Volume Laterality 01/04/1999 2:44 PM CDT Rian Meier MD LAB_1 Performing Organization Address City/State/ZIP Code Phon e Number HP CONVERSION documented in this encounter Visit Diagnoses Not on filedocumented in this encounter Care Teams Enterprise Integration Architect Relationship Specialty Start Date End Date Unassigned, Provider PCP - General 06/10/[address] [place] [id number] documented as of this encounter
--- OUTSIDE RECORDS SUMMARY | 2022-02-12 13:38 | XMS_ITS | Clinical Summary ---
:1965 [facility] Address [address] [place] [address] Care Team Providers Name Role Phone Unassigned, [...] for each transition of care or referral. [facility] Allergies Active Allergy Reactions Severity Noted Date Comments Sulfa Antibiotics Rash 08/31/2014 Medications Medication Sig Dispensed Refills Start Date End Date Status [place]-3 Fatty Acids 2 times daily 0 Active [...] age to complete this topic Care Teams Admitting Manager Relationship Specialty Start Date End Date Unassigned, Provider PCP - General 06/10/[address] [place] [id number]
--- OUTSIDE RECORDS SUMMARY | 2022-02-12 13:38 | XMS_ITS | Encounter Summary ---
:1965 Author Organization [facility] Address [address] [place] [address] Care Team Providers Name Role Phone Unassigned, Provider Primary Care Provider Unavailable Reason for Visit Reason Comments SKIN LESION Encounter Details Date Type Department Care Team Description 03/13/2017 Office Visit Eddie Galicia MD, Basal cell carcinoma of right forehead (Primary Dx); Dermatology PhD Basal cell carcinoma of scalp; [address] [facility] [address] [place] [address] History of basal cell carcin paulo; [place] [address] BL[address] BCNS (basal cell nevus syndrome) [phone] [place] [address] (Wo rk) Social History Tobacco [...] vertex/parietal scalp. The biopsies were performed at [facility]. She was last seen by me [...] return for Mohs surgery x 3 sites. MECHANIC documented in this encounter Plan of Treatment [...] anomalies documented in this encounter Care Teams Cattle Sprayer Relationship Specialty Start Date End Date Unassigned, Provider PCP - General 06/10/[address] [place] [id number] documented as of this encounter
--- OUTSIDE RECORDS SUMMARY | 2022-02-12 13:38 | XMS_ITS | Clinical Summary ---
:1965 Author Organization [facility] [place] [address] Care Team Providers Name Role Phone Zenia Jon MD Primary Care Provider Allergies Active Allergy Reactions Severity Noted Date Comments Sulfa (Sulfonamide Antibiotics) Rash 5 Medications Medication Sig Dispensed Refills Start Date End Date Status buPROPion (WELLBUTRIN Take 1 tablet by 0 08/31/2014 Active XL) 300 mg mouth every Extended-Release morning. tablet LORazepam (ATIVAN) 0.5 Take 1 tablet by 0 08/31/2014 Active mg tab mouth once daily. albuterol HFA Inhale 2 Puffs by 1 Inhaler 1 09/15/2015 Active (VENTOLIN HFA) 90 mouth 4 times mcg/actuation daily if needed. inhalerIndications: Fill upon request URI, acute prazosin (MINIPRESS) 1 3 total daily 0 09/21/2016 Active mg capsule venlafaxine (EFFEXOR Take once daily 0 01/21/2017 Active XR) 37.5 mg Extended-Release capsule Active Problems Problem Noted Date Depression 09/01/2014 Overview: Followed by [facility], Dr. Davis. 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 Cedillo [facility]. Family History Medical History Relation Name Comments Heart Disease Father Hypertension Father Heart Disease Mother Hypertension Mother Relation Name Status Comments Father 06/2014 Mother Alive Social History Tobacco Use Types Packs/Day Years Used Date Never Smoker Smokeless Tobacco: Never Used Tobacco Cessation: Counseling Given: Yes Alcohol Use Standard Drinks/Week Comments No 0 (1 standard drink = 0.6 oz pure alcoho l) Sex Assigned at Date Recorded Not on file Obstetrics History Last Filed Vital Signs Vital Sign Reading Time Taken Comments Blood Pressure 129/82 04/15/2017 8:34 AM JUNIOR STAFF ACCOUNTANT Pulse 79 04/15/2017 8:34 AM JUNIOR STAFF ACCOUNTANT Temperature 37.3 ??C (99.2 ??F) 04/15/2017 8:34 AM JUNIOR STAFF ACCOUNTANT Respiratory Rate 16 02/07/2017 9:38 AM CDT Oxygen Saturation 97% 04/15/2017 8:34 AM JUNIOR STAFF ACCOUNTANT Inhaled Oxygen Concentration - - Weight 128.7 kg (283 lb 12.8 oz) 04/15/2017 8:34 AM JUNIOR STAFF ACCOUNTANT Height 177.8 cm (5' 10) 04/15/2017 8:34 AM JUNIOR STAFF ACCOUNTANT Body Mass Index 40.72 04/15/2017 8:34 AM JUNIOR STAFF ACCOUNTANT Plan of Treatment Health Maintenance Due Date Last Done Comments Hepatitis C screening for age 18-79 1982 Colonoscopy through age 75 2009 Lipids for age 45-75 2009 Mammogram for age 45-75 2009 Zoster (shingles) series for age 50+ 2014 (1 of 2) Depression screening for age 12+ 02/07/2018 02/07/2017, , 09/15/2015 BMI (ht and wt on same day) for age 1204/15/2018 04/15/2017, 09/21/2016, 18+ 09/15/2015 Tetanus booster 09/01/2019 08/31/2009 COVID-19 vaccine series (3 - Booster 10/15/2020 08/20/2020, 07/30/2020 for Pfizer series) Influenza for age 50-64 01/04/2022 Tdap Completed 08/31/2009 Results Not on filefrom Last 3 Months Care Teams Contract Associate Manager Relationship Specialty Start Date End Date Zenia Jon MD PCP - General Family Practice 04/15/17
--- OUTSIDE RECORDS SUMMARY | 2022-02-12 13:38 | XMS_ITS | Encounter Summary ---
:1965 Author [facility] Address [address] [place] [address] Care Team Providers Name Role Phone Unassigned, Provider Primary Care Provider Unavailable Reason for Visit Reason Comments Reschedule Appointment Encounter Details Date Type Department Care Team Description 05/08/2017 Telephone [facility] Eddie Cedillo MD, Reschedule Appointment [address] [place] [address] [place] [address] [place] [address] (Wo rk) Social History Tobacco Use Types Packs/Day Years Used Date Smoking Tobacco: Never Assessed Sex Assigned at Date Recorded Not on file documented as of this encounter Nursing Notes Anitha Cristina - 07/02/2017 8:02 AM CST 07/02/17: Patient LVM to cancel mohs surgery. She states she will call back to reschedule. ALT SPREADER Anitha Cristina - 05/08/2017 1:40 PM CST 05/08/17: Returned call to patient to reschedule. Mohs surgery scheduled with PL in on 06-11-17,there were no orders for patient so referral will not go to surgery schedulers if cancelled. ALT SPREADER documented in this encounter Plan of Treatment Not on filedocumented as of this encounter Visit Diagnoses Not on filedocumented in this encounter Care Teams Form Setter/Driver Relationship Specialty Start Date End Date Unassigned, Provider PCP - General 06/10/01 [address] [place] [address] documented as of this encounter
[2022-02-12 14:58] LABS: Basophils Percent Auto 0.6 % (0.0-3.0); Hematocrit 41.7 % (33.0-51.0); Hemoglobin* 13.9 gm/dL (12.0-16.0); Immature Granulocytes Abs Auto 0.03 K/uL (0.00-0.30); Lymphocytes Percent Auto 25.6 % (20-44); Mean Corpuscular HGB Conc 33 gm/dL (32-36); Mean Corpuscular Hemoglobin 31 pg (26-34); Mean Corpuscular Volume 93 fL (80-100); Monocytes Percent Auto 6.6 % (0.0-11.0); Neutrophils Percent Auto 62.7 % (42.0-72.0); Platelet Count* 402 K/uL (140-440); Red Blood Count 4.49 m/uL (4.00-5.20)
[2022-02-12 15:06] LABS: Slide Review Reflex No
[2022-02-12 15:07] LABS: White Blood Count* 6.21 K/uL (4.50-11.00)
[2022-02-12 16:18] LABS: Albumin* 4.5 g/dL (3.3-5.0); Chloride* 100 mmol/L (96-114)
[2022-02-12 16:19] LABS: Potassium* 4.1 mmol/L (3.6-5.1); Sodium* 137 mmol/L (135-149)
[2022-02-12 16:21] LABS: Alkaline Phosphatase* 123 U/L (40-150); Aspartate Amino Transferase* 28 U/L (12-35); Bilirubin Total* 0.7 mg/dL (0.1-1.5); Blood Urea Nitrogen* 17 mg/dL (7-30); Carbon Dioxide* 27 mmol/L (20-32); Creatinine* 0.8 mg/dL (0.5-1.5); Estimated Glomerular Filt Rate 86 ml/min; Total Protein* 7.1 g/dL (6.0-8.3)
[2022-02-12 16:22] LABS: Alanine Aminotransferase* 18 U/L (4-35); Calcium* 9.5 mg/dL (8.4-10.6); Gamma Glutamyl Transpeptidase* 18 U/L (8-55); Glucose* 112 mg/dL (60-115)
[2022-02-12 17:11] LABS: Vitamin B12* 475 pg/mL (243-894)
[2022-02-15 12:55] LABS: Copper, Serum/Plasma 131.3 ug/dL (80.0-155.0)
[2022-02-15 22:22] LABS: Insulin, Random 9 uIU/mL
== END 2022-02-12 13:35 | disposition home or self-care (01) ==
LOC: NPINS 13:34
PROVIDERS: PCP Internal Medicine; Visit Provider Family Medicine
DX: R06.02 Shortness of breath (principal); R73.9 Hyperglycemia, unspecified; R79.82 Elevated C-reactive protein (CRP); Z90.2 Acquired absence of lung [part of]
CPT/HCPCS: 80053; 82525; 82607; 82977; 83525; 85025

== ENCOUNTER 2022-08-16 15:33 | Emergency (ER) | payer BC, SELFPAY ==
[2022-08-16 15:42] VITALS: BP 130/83; PULSE 109; RESP 20; TEMP 36.2; O2SAT 93; BMI 38.7
[2022-08-16 15:47] LABS: Appearance Urine Clear (Clear); Bilirubin Urine Negative (Negative); Blood Urine 2+ (Negative); Color Urine Yellow (Yellow); Glucose Urine Negative (Negative); Ketones Urine Trace (Negative); Leukocyte Esterase Urine Negative (Negative); Nitrite Urine Negative (Negative); Protein Urine Negative (Negative); Specific Gravity Urine >= 1.030 (1.000-1.030); Urobilinogen Urine 0.2 (0.2-1.0)
[2022-08-16 15:57] LABS: RBC Urine 0-2 (0-2); Squamous Epithelial Cell Urine Few (None-Few); WBC Urine 0-2 (0-5)
--- NOTE | 2022-08-16 17:31 | CRLHL7_ITS ---
For Patients: As a result of the 21st Century Cures Act, medical imaging exams and procedure reports are released immediately into your electronic medical record. You may view this report before your referring provider. If you have questions, please contact your health care provider. INDICATION: .RT FLANK PAIN TECHNIQUE: CT abdomen and pelvis without contrast. COMPARISON: CT October 2018. FINDINGS: Lower chest: Trace left pleural effusion with associated left pleural thickening. Areas of linear atelectasis. A few scattered 2-3 millimeter indeterminate pulmonary nodules in the left lung base. ABDOMEN: Liver: Subcentimeter hypodensities are too small to characterize however statistically represent cysts. Gallbladder and biliary: Normal gallbladder without radiopaque stone. Normal caliber bile ducts. Spleen: Normal size and attenuation. Pancreas: The noncontrast pancreas is homogeneous in attenuation without peripancreatic inflammatory changes or ductal dilatation. Adrenal glands: Normal adrenal glands. Kidneys and ureters: Normal attenuation. No radio-opaque calculi. No hydroureteronephrosis. GI tract: Small hiatal hernia. Normal caliber small and large bowel loops. Appendix is not definitively visualized. Vascular structures: Normal caliber aorta with atherosclerotic calcifications. Lymph nodes: No lymphadenopathy in the abdomen or pelvis by size criteria. Peritoneum: No free air, free fluid, or focal drainable fluid collection. PELVIS: Genitourinary system: Questionable fluid fluid level within the urinary bladder versus artifact. Hysterectomy. SKELETAL STRUCTURES AND SOFT TISSUES: Old left-sided rib fractures. IMPRESSION: 1. No discrete acute abdominal or pelvic process. Obstruction. No hydroureteronephrosis. 2. Trace left pleural effusion with associated left pleural thickening. This is of indeterminate etiology and was not present on the 2019 exam. If this has not previously been addressed, consider aspiration and cytological evaluation. Differential considerations include thickening from chronic pleural effusion, less likely empyema, or a malignant effusion. 3. Questionable fluid fluid level within the urinary bladder versus artifact. Recommend correlation with urinalysis. 4. A few scattered 2-3 millimeter indeterminate pulmonary nodules in the left lung base. If the patient is considered low risk for primary lung cancer, these do not require additional follow-up. If the patient is considered high-risk for primary lung cancer, consider optional unenhanced chest CT in 12 months to document stability and to assess for underlying malignant potential per Fleischner society guidelines. Please note that all CT scans at this facility use dose modulation, iterative reconstruction, and/or weight-based dosing when appropriate to reduce radiation dose to as low as reasonably achievable. Dictated by Torey Almendarez MD @ 08/16/2022 6:44:40 PM (Electronically Signed)
--- OUTSIDE RECORDS SUMMARY | 2022-08-16 17:36 | XMS_ITS | Continuity of Care Document ---
Author Name Unknown Organization [facility] Address [address] [address] [place] [address] Phone Care Team Providers Care Torch Brazer Name Role Phone Campos Angel MD Unavailable Unavailable Allergies, Adverse Reactions, Alerts Substance Reaction Status Criticality TAPE, PERMEABLE ADHESIVE Rash Active No Information Sulfa (Sulfonamide Antibiotics) Rash Active No Information Medications Medication Instructions Dosage Effective Dates (start - stop) Status Comments TYLENOL (unknown strength) take 2 tablet by oral route every 4 hours as needed Not Available - Active IBUPROFEN (unknown strength) take 1 capsule by oral route every 4 hours as needed Not Available - Active Cymbalta 60 mg capsule,delayed release take 1 capsule by oral route every 2 days 60 MG - Active Procedures Procedure Date Office Cons New/estab Mod Advance Directives Directive Yes / No Effective Date File Name No Information Encounters Encounter Description Practice Location Reason(s) For Visit Diagnoses Date Provider Providers Copied on Encounter Office Cons New/estab Mod [facility], [address] [address], [place], [place], [id number], [place] tel:[phone] [facility] GI Symptoms or Concerns (chief complaint) Right lower quadrant abdominal painDietary counseling and surveillanceElevated blood-pressure reading, w/o diagnosis of htn [address] [facility] [address], [place], [place], [id number] , [place]. [phone] Referring Provider: Yudy Mathews MD H, [address] [facility], [place], [address]. tel:[phone] Family History Family Member Type Diagnosis Age At Onset Mother Problem (finding) Thyroid disorder Mother Problem (finding) gallbladder disease Mother Problem (finding) Melenoma Father Problem (finding) Type of lymphoma Payers Payer name Insurance type Covered libertarian ID Denise nicholson(s) Esau Jones [facility] [id number] Social History Type Description Quantity Date Captured Comments Alcohol Use Details Caffeine Use Details Unknown Tobacco Use Status Current non-smoker 18 Smoking Status Never smoker Non-Smoking Tobacco Use Details : No Details Available : No Details Available Sex Female Vital Signs Date / Time: Height Weight BMI Pulse Rate Blood Pressure Temperature Respiratory Rate Body Surface Area Head Circumference Head Circ. Percentile Wt./Patel. Percentile BMI percentile Pulse Ox Inhaled Ox 2:14 PM 69.50 in 123.740 kg (272.80 lbs) 39.7 1 kg/m eter (2) 85 /min 135/84 mm[Hg] Chief Complaint And Reason For Visit From [...] since the winter and spring of this year.She is sent by her primary care provider, Yudy [...] 20, 2018, did show a small hypodensity inthe right lobe of the liver, most likely representing a cyst, which was stable from previous exams.She had colonic diverticulosis. She had a tiny gallstone versus small calcification in the gallbladder wall and evidence of prior appendectomy, hysterectomy and bilateral salpingo- oophorectomies. There is also a tiny lipoma in the proximal ascending colon.She did have a colonoscopy on September 04 [facility] [address] [facility] with Dr. Yfn Fields. That exam was [...] or other GI functions. The pain is mostlyin the right lower quadrant of the abdomen, but then seems to shoot through to her right mid back. She denies any other radiation. She has some mild nausea, but no vomiting. No change in appetite, dysphagia, or odynophagia. No constipation, diarrhea, melena, or hematochezia and no association of the pain with malfunction.She has occasionally taken NSAIDs for the pain, but denies any chronic NSAIDuse. No positional changes make the pain better or worse. The pain actually only comes on every fewmonths, so currently it has been a few weeks since she has had pain episode.Gabriela is single. 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 She does not use tobacco. She rarely drinks alcohol.She does have a family history of gallbladder disease in her mother. Her father had lymphoma. She denies any other GI disorders, malignancies in her family. Reason For Referral Reason For Referral No Information Plan Of Treatment Date Type Action Status Goal Lifestyle education regardin g diet completed History Of Present Illness Encounter Date Complaint History Of Prese nt Illness GI Symptoms or Concerns Gabriela Cloud rt is a 53-year-old woman with history of Gorlin syndrome, multiple skin cancers as a result, previous endometrial cancer and total hysterectomy and oophorectomy, parathyroid gland removal and jaw cyst removals, who presents for intermittent right-sided and right flank abdominal pain at least since the winter and spring of this year. She is sent by her primary care provider, Yudy [...] of prior appendectomy Functional Status Date Functional Assessmen t No Information Instructions Date Instruction Additional Infor santosh Lifestyle education regarding di et Related to Dietary counseling and surveillance Assessments Type Assessment Date assessment Right lower quadrant abdominal p ain assessment Dietary counseling and surveilla nce assessment Elevated blood-pressure reading w/o diagnosis of hypertension impression Gabriela Kraus is a 53-y ear-old woman with a history of Gorlin syndrome and multiple skin cancers, jaw cysts, and endometrial cancer 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 She has no other warning signs. She felt that her symptoms were similar to previous kidney stones, but she has had full evaluation with Urology without any abnormalities detected. She has had specifically CT abdomen and pelvis in October of this year as well as colonoscopy in September of this year, neither of which showed any significant abnormalities. There was possible small gallstone noted on CT scan, however.Most likely, her symptoms are not GI related given very little association with GI function, eating or bowel movements. However, we did discuss the possibility of gallbladder related pain given that she has a gallstone on CT scan and had some occasional postprandial symptoms and night symptoms. However, it would be very atypical to feel the pain predominantly in the right lower quadrant with a gallbladder even though it does sometimes radiate up to the right back. For now, I would not pursue any further evaluation of this given her intermittent symptoms, but at some point, we could consider HIDA scan if symptoms persisted and were more consistent with gallbladder pain.I think it is equally or possibly more likely that she is having adhesive related pain, which she has had in the past, although she felt that it was a little bit different then. We discussed that very likely there would be nothing to do about this, if it was the cause of her pain unless she were to have full blown obstruction, which is unlikely.I do not think she meets criteria for functional GI disorder unless her symptoms were to become more GI specific. With previous colonoscopy and CT scan, further evaluation is unlikely to be helpful from a GI perspective. She has no other upper symptoms to indicate upper endoscopy at this time.She will follow up with her primary care doctor and contact me should her symptoms become more persistent or have more GI features and we could discuss further workup as detailed above.Thank you so much for involving us in the care of this very pleasant woman. Patient Care Teams Name Effective Dates (start - stop) Status Members No Information
[2022-08-16 18:15] VITALS: PULSE 77; RESP 16; O2SAT 100
--- NOTE | 2022-08-16 18:55 | ED_ITS ---
HPI - General Adult General Date Seen: 08/16/22 Chief complaint: Flank Pain Stated complaint: R flank pain Time Seen by Provider: 08/16/22 17:21 Source: patient Mode of arrival: ambulatory Limitations: no limitations History of Present Illness HPI narrative: Patient is a 57-year-old female who comes in with about three days of right flank pain. She has a history of numerous kidney stones and is convinced that she has another one. She has not noticed any gross hematuria. No dysuria, urgency, frequency. Her last stone was about three years ago. She has never had to have a surgical procedure or stent. No nausea, vomiting, diarrhea. No fevers or chills. Related Data Home Medications Medication Instructions Recorded Confirmed albuterol sulfate 90 mcg/actuation inhalation PRN 12/19/21 05/23/22 aerosol inhaler bupropion HCl 150 mg tablet,12 hr 150 mg PO BID 12/19/21 08/16/22 sustained-release duloxetine 30 mg capsule,delayed 30 mg PO BID 12/19/21 08/16/22 release hydroxyzine HCl 25 mg tablet 25 mg PO DAILY PRN 12/19/21 08/16/22 letrozole 2.5 mg tablet 2.5 mg PO DAILY 12/19/21 08/16/22 multivitamin 1 tab PO QAM 12/19/21 08/16/22 prazosin 2 mg capsule 2 mg PO .Bedtime 12/19/21 08/16/22 sumatriptan succinate 25 mg tablet 25 mg PO ONCE PRN 12/19/21 08/16/22 (Imitrex) Previous Rx's Medication Instructions Recorded prochlorperazine maleate 5 mg 5 - 10 mg PO Q6-8H PRN nausea and 04/18/22 tablet vomiting #30 tabs oxycodone 5 mg tablet 5 mg PO BID PRN pain #20 tabs 05/23/22 oxycodone 5 mg tablet 5 mg PO Q8H PRN pain #15 tabs 08/16/22 Allergies Allergy/AdvReac Type Severity Reaction Status Date / Time Sulfa (Sulfonamide Allergy Intermediate Rash Verified 08/16/22 15:49 Antibiotics) adhesive Allergy Mild Rash Verified 08/16/22 15:49 Review of Systems Narrative: Review of systems is outlined above otherwise noted to be negative. [facility] Medical History (Updated 08/16/22 @ 19:11 by Torey Mann MD) Anxiety (01/19/09) ?F41.9 - Anxiety disorder, unspecified (ICD-10) Depression (01/19/09) ?F32.A - Depression, unspecified (ICD-10) History of endometrial cancer ?Z85.42 - Personal history of malignant neoplasm of other parts of uterus (ICD-10) History of renal calculi ?Z87.442 - Personal history of urinary calculi (ICD-10) Hyperlipidemia (2019) ?E78.5 - Hyperlipidemia, unspecified (ICD-10) Insomnia ?G47.00 - Insomnia, unspecified (ICD-10) Nevoid basal cell carcinoma syndrome ?Q87.89 - Other specified congenital malformation syndromes, not elsewhere classified (ICD-10) Obesity with body mass index greater than 30 (11/16/10) ?E66.9 - Obesity, unspecified (ICD-10) Posttraumatic stress disorder ?F43.10 - Post-traumatic stress disorder, unspecified (ICD-10) Surgical History (Updated 12/19/21 @ 11:50 by Doris Ricci MD) History of appendectomy (11/16/10) ?Z90.49 - Acquired absence of other specified parts of digestive tract (ICD- 10) 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) ?Z90.2 - Acquired absence of lung [part of] (ICD-10) History of ovarian cystectomy (11/16/10) ?Z98.890 - Other specified postprocedural states (ICD-10) ?Z87.42 - Personal history of other diseases of the female genital tract (ICD-10) History of parathyroidectomy (01/22/11) ?E89.2 - Postprocedural hypoparathyroidism (ICD-10) History of total hysterectomy with bilateral salpingo-oophorectomy (BSO) (2015) ?Z90.710 - Acquired absence of both cervix and uterus (ICD-10) ?Z90.722 - Acquired absence of ovaries, bilateral (ICD-10) ?Z90.79 - Acquired absence of other genital organ(s) (ICD-10) Social History Smoking Status: Never smoker Do you use any of these nicotine containing products: None Second hand tobacco smoke exposure: No How often do you have a drink containing alcohol: never AUDIT-C Alcohol total score: 0 Non-prescribed substance use: denies use Little interest or pleasure in doing things: not at all Feeling down, depressed, or hopeless: several days Exam Narrative: Exam Narrative: Vitals noted. HEENT: Conjunctiva clear. Neck is supple without adenopathy, thyromegaly, carotid bruit. Lungs: Clear to auscultation in all valverde. No wheezes, rales, rhonchi. Heart: Regular rate and rhythm without murmur. Abdomen: Soft and nontender. No guarding, rigidity, rebound. Bowel sounds are normal. No palpable masses. Mild right CVA tenderness. Extremities: No cyanosis or edema. Good distal pulses. Skin: No abnormalities noted of the exposed skin. Neurologic: Awake, alert, fully oriented. Neurologic exam is nonfocal. Const: Vital Signs, click to edit/add: Vital Signs - 24 hr 08/16/22 15:42 08/16/22 18:15 Temperature 97.2 F L Pulse Rate [Pulse Oximeter] 109 H 77 Respiratory Rate 20 16 Blood Pressure [Ri ght Upper Arm] 130/83 Pulse Oximetry 93 100 Oxygen Delivery Me thod Room Air Room Air Course Course Hospital Course: Patient seen and examined. Urinalysis shows 2+ blood but is otherwise fairly unremarkable. CT of her abdomen and pelvis without contrast does not show hydronephrosis, hydroureter, or renal stones. Patient received some IV fluids and a dose of fentanyl with complete resolution of her pain. Vital Signs Vital signs: Initial Vital Signs Temperature 97.2 F L 08/16/22 15:42 Temperature Source Temporal Artery Scan 08/16/22 15:42 Pulse Rate 109 H 08/16/22 15:42 Respiratory Rate 20 08/16/22 15:42 Blood Pressure 130/83 08/16/22 15:42 Blood Pressure Mean 98 08/16/22 15:42 Blood Pressure Position Sitting 08/16/22 15:42 Pulse Oximetry 93 08/16/22 15:42 Oxygen Delivery Method Room Air 08/16/22 15:42 Vital Signs Temperature 97.2 F L 08/16/22 15:42 Pulse Rate 109 H 08/16/22 15:42 Respiratory Rate 20 08/16/22 15:42 Blood Pressure 130/83 08/16/22 15:42 Pulse Oximetry 93 08/16/22 15:42 Oxygen Delivery Method Room Air 08/16/22 15:42 Temperature 97.2 F L 08/16/22 15:42 Pulse Rate 77 08/16/22 18:15 Respiratory Rate 16 08/16/22 18:15 Blood Pressure 130/83 08/16/22 15:42 Pulse Oximetry 100 08/16/22 18:15 Oxygen Delivery Method Room Air 08/16/22 18:15 Medical Decision Making MDM Narrative Medical decision making narrative: We discussed that she may have had a kidney stone that has passed into the bladder. No evidence of obstructive stone at this time. She is comfortable discharging home. Lab Data Labs: Lab Results 08/16/22 Range/Units 15:43 Urine Color Yellow (Yellow) Urine Appearance Clear (Clear) Urine pH 5.0 (5.0-8.5) Ur Specific [place] >= 1.030 (1.000-1.030) Urine Protein Negative (Negative) Urine Glucose (UA) Negative (Negative) Urine Ketones Trace A (Negative) Urine Blood 2+ A (Negative) Urine Nitrite Negative (Negative) Urine Bilirubin Negative (Negative) Urine Urobilinogen 0.2 (0.2-1.0) Ur Leukocyte Esterase Negative (Negative) Urine RBC 0-2 (0-2) Urine WBC 0-2 (0-5) Ur Squamous Epith Cells Few (None-Few) Urine Bacteria None (None) Discharge Plan Discharge Clinical Impression: Acute right flank pain Patient Disposition: Home, Self-Care Condition: Stable Additional Instructions: Rest, push fluids, Tylenol or Oxycodone for pain. Follow up if the pain recurs. Prescriptions: New oxycodone 5 mg tablet 5 mg PO Q8H PRN (Reason: pain) Qty: 15 0RF No Action duloxetine 30 mg capsule,delayed release(DR/EC) 30 mg PO BID albuterol sulfate 90 mcg/actuation HFA aerosol inhaler inhalation PRN multivitamin Tablet 1 tab PO QAM bupropion HCl 150 mg tablet sustained-release 12 hr 150 mg PO BID letrozole 2.5 mg tablet 2.5 mg PO DAILY sumatriptan succinate [Imitrex] 25 mg tablet 25 mg PO ONCE PRN prazosin 2 mg capsule 2 mg PO .Bedtime hydroxyzine HCl 25 mg tablet 25 mg PO DAILY PRN oxycodone 5 mg tablet 5 mg PO BID PRN (Reason: pain) Qty: 20 0RF prochlorperazine maleate 5 mg tablet 5 - 10 mg PO Q6-8H PRN (Reason: nausea and vomiting) Qty: 30 1RF Rx Instructions: as needed for nausea Follow Up/Referrals: Doris Ricci MD [Primary Care Provider] - Stand Alone Forms: [facility] Info Instructions
== END 2022-08-16 19:12 | disposition home or self-care (01) ==
PROVIDERS: Emergency Provider Family Medicine; PCP Internal Medicine
DX: R10.9 Unspecified abdominal pain (principal)
CPT/HCPCS: 74176; 81001; 96374; 99282; 99283; 99284; J3010

== ENCOUNTER 2023-12-14 16:52 | Emergency (ER) | payer BC, SELFPAY ==
[2023-12-14 17:01] VITALS: BP 137/95; PULSE 102; RESP 18; O2SAT 95; BMI 35.9
--- NOTE | 2023-12-14 17:06 | ED_ITS ---
HPI - General Adult General Time Seen by Provider: 17:06 Date Seen: 12/14/23 Chief complaint: Fall/Minor Trauma Stated complaint: fell, possible cracked rib Time Seen by Provider: 12/14/23 17:06 Source: patient and RN notes reviewed Mode of arrival: ambulatory Limitations: no limitations History of Present Illness HPI narrative: Gabriela is a very pleasant 58-year-old female with a complicated past medical history including lung cancer with left upper lobe lobectomy history of endometrial cancer history of PTSD hyperlipidemia depression and anxiety who comes to the emergency room with her neighbor after she injured her ribs. Gabriela was sitting on a 4 ft ladder and her neighbors was coming down a branch and it fell toward her rather than away from her. It struck her on her left shoulder and upper back and unfortunately knocked her off of the ladder and on to the ground where she fell on her right side and felt like she heard a ?crunch. After this she had a few episodes of vomiting that she attributes to anxiety and the stress of the situation. At this time she is showing me the pain to be in her right flank. It worsens with movement. She also notes that she has a history of lung cancer with left upper lobe removal in the past. She is due for a CT next week to evaluate this. Gabriela does not have any shortness of breath or hemoptysis. She is not currently on any blood thinners. She denies hitting her head and has no neck pain that is new. She has not taken anything for pain at this point. Related Data Home Medications ?Medication ?Instructions ?Recorded ?Confirmed bupropion HCl 150 mg tablet,12 hr 150 mg PO BID 12/19/21 12/14/23 sustained-release multivitamin 1 tab PO QAM 12/19/21 08/19/23 sumatriptan succinate 25 mg tablet 25 mg PO ONCE PRN 12/19/21 08/19/23 (Imitrex) Allergies Allergy/AdvReac Type Severity Reaction Status Date / Time Sulfa (Sulfonamide Allergy Intermediate Rash Verified 08/19/23 14:08 Antibiotics) adhesive Allergy Mild Rash Verified 08/19/23 14:08 Review of Systems Status of ROS: Reports: 10 or more systems reviewed and unremarkable except as noted in History and below [facility] Medical History History of endometrial cancer ?Z85.42 - Personal history of malignant neoplasm of other parts of uterus (ICD-10) History of renal calculi ?Z87.442 - Personal history of urinary calculi (ICD-10) Surgical History History of total hysterectomy with bilateral salpingo-oophorectomy (BSO) (2016) ?Z90.710 - Acquired absence of both cervix and uterus (ICD-10) ?Z90.722 - Acquired absence of ovaries, bilateral (ICD-10) ?Z90.79 - Acquired absence of other genital organ(s) (ICD-10) History of parathyroidectomy (01/22/11) ?E89.2 - Postprocedural hypoparathyroidism (ICD-10) History of ovarian cystectomy (11/16/10) ?Z98.890 - Other specified postprocedural states (ICD-10) ?Z87.42 - Personal history of other diseases of the female genital tract (ICD-10) 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) ?Z90.2 - Acquired absence of lung [part of] (ICD-10) History of appendectomy (11/16/10) ?Z90.49 - Acquired absence of other specified parts of digestive tract (ICD- 10) Social History Smoking Status: Never smoker Do you use any of these nicotine containing products: None Second hand tobacco smoke exposure: No How often do you have a drink containing alcohol: never AUDIT-C Alcohol total score: 0 Non-prescribed substance use: denies use Little interest or pleasure in doing things: not at all Feeling down, depressed, or hopeless: several days Exam Narrative: Exam Narrative: Alert and oriented. Guarded in movement but able to move. Mentating normally with a GCS of 15. Head is atraumatic normocephalic. Neck is supple. Examination of the back shows 2 linear areas of erythema across the extreme upper aspect of the scapula/mid trapezius. Palpation in this area does not yield underlying tenderness. Areas of erythema include a 10 x 3 in a 0.5 mm stripe across the top superior to this is erythema that is skipped with total length of approximately 6 cm. Palpation down thoracic and lumbar spine without pain. Palpation to the lower right ribcage posterior lateral is tender to the touch. I do not palpate any crepitus. Lung sounds are auscultated bilaterally. Abdomen soft. Lower extremities with out pain and she is moving these lower extremities. Const: Vital Signs, click to edit/add: Vital Signs - 24 hr 12/14/23 17:01 12/14/23 19:10 12/14/23 19:15 Pulse Rate 79 79 Pulse Rate [Right Pulse Oximeter] 102 H Respiratory Rate 18 18 Blood Pressure [Ri ght Upper Arm] 137/95 H Pulse Oximetry 95 95 94 Oxygen Delivery Me thod Room Air Documenting provider has reviewed patient's vital signs: yes Course Course ED Course: Differential diagnosis includes but is not limited to soft tissue injury, rib fracture, kidney trauma, at this time patient is supposed to have CT next week. I do need to evaluate both her ribs as well as her right upper abdomen. Have elected to go ahead with CT of the chest and abdomen given location of injury and patient report need for CT of the chest next week. In regards to pain, we will be receive inserting an IV and therefore will give morphine 4 mg Zofran 4 mg. Patient had initially asked for Compazine but I do not feel comfortable giving too sedating medications at this time. Reevaluation(s) Reevaluation #1: Patient had requested further pain medication. Have given her Griffin 09/3250 tablet. Vital Signs Vital signs: Initial Vital Signs Temperature Source Temporal Artery Scan 12/14/23 17:01 Pulse Rate 102 H 12/14/23 17:01 Respiratory Rate 18 12/14/23 17:01 Blood Pressure 137/95 H 12/14/23 17:01 Blood Pressure Mean 109 H 12/14/23 17:01 Blood Pressure Position Sitting 12/14/23 17:01 Pulse Oximetry 95 12/14/23 17:01 Oxygen Delivery Method Room Air 12/14/23 17:01 Vital Signs Pulse Rate 102 H 12/14/23 17:01 Respiratory Rate 18 12/14/23 17:01 Blood Pressure 137/95 H 12/14/23 17:01 Pulse Oximetry 95 12/14/23 17:01 Oxygen Delivery Method Room Air 12/14/23 17:01 Pulse Rate 79 12/14/23 19:15 Respiratory Rate 18 12/14/23 19:10 Blood Pressure 137/95 H 12/14/23 17:01 Pulse Oximetry 94 12/14/23 19:15 Oxygen Delivery Method Room Air 12/14/23 17:01 Medications Administered Medications: Discontinued Medications Generic Name Dose Route Start Last Admin Trade Name Eladio PRN Reason Stop Dose Admin Hydrocodone Bitart/Acetaminophen 1 tab 12/14/23 18:53 12/14/23 19:10 Hydrocodone-Acetamin 5-325 Mg 1 Tab PO 12/14/23 18:54 1 tab ONCE ONE Administration Morphine Sulfate 4 mg 12/14/23 17:16 12/14/23 17:53 Morphine 4 Mg/Ml Inj IVP 12/14/23 17:17 4 mg ONCE ONE Administration Ondansetron HCl 4 mg 12/14/23 17:16 12/14/23 17:53 Ondansetron 2 Mg/Ml Inj IVP 12/14/23 17:17 4 mg ONCE ONE Administration Medical Decision Making MDM Narrative Medical decision making narrative: 1. Rib fracture-right posterior 10th rib is fractured. No underlying pneumothorax, hemothorax. Have discussed the importance of deep breathing and using incentive spirometer. For pain will have Gabriela use naproxen as directed. For breakthrough pain she may use Griffin 5/325 1-2 tablets p.o. q.4-6 hours p.r.n. 12. Via [facility] machine. Seek medical attention for hemoptysis, worsening pain is as needed. Demonstrated splinting if she would need to cough or sneeze. No evidence underlying of any a kidney trauma. CBC and comprehensive panel reassuring. 2. Pyuria-5-10 wbc's noted in urine but patient has no symptoms of a UTI. Will send this for culture. 3. History of you lung cancer-no evidence of masses on CT. A copy of the CT was sent with Gabriela so that she can take this to her physicians at [facility]. 4. Disposition-home at this time. Seek medical attention for worsening symptoms. Medical Records Medical records reviewed: Yes I reviewed the patient's medical records Lab Data Lab results reviewed: Yes I reviewed the patient's lab results Labs: Lab Results 12/14/23 12/14/23 Range/Units 17:45 17:46 WBC 9.68 (4.50-11.00) K/uL RBC 4.15 (4.00-5.20) m/uL Hgb 12.1 (12.0-16.0) gm/dL Hct 37.6 (33.0-51.0) % MCV 91 (80-100) fL MCH 29 (26-34) pg MCHC 32 (32-36) gm/dL RDW Coeff of Adrianna 13.8 (11.5-15.5) % Plt Count 336 (140-440) K/uL Neut % (Auto) 86.6 H (42.0-72.0) % Lymph % (Auto) 9.2 L (20-44) % Whitman % (Auto) 3.2 (0.0-11.0) % Eos % (Auto) 0.3 (0.0-7.0) % Baso % (Auto) 0.3 (0.0-3.0) % Neut # (Auto) 8.40 H (1.7-7.0) K/uL Lymph # (Auto) 0.90 (0.90-2.90) K/uL Whitman # (Auto) 0.30 (0.00-0.90) K/UL Eos # (Auto) 0.03 (0.00-0.50) K/uL Baso # (Auto) 0.03 (0.00-0.30) K/uL Abs Immat Gran (auto) 0.04 (0.00-0.30) K/uL Imm/Tot Granulo (auto) 0.4 % Sodium 137 (135-149) mmol/L Potassium 3.8 (3.6-5.1) mmol/L Chloride 103 (96-114) mmol/L Carbon Dioxide 24 (20-32) mmol/L Anion Gap 10 (7-15) mEq/L BUN 21 (7-30) mg/dL Creatinine 1.1 (0.5-1.5) mg/dL Estimated Creat Clear 59.55 Estimated GFR 58 ml/min Glucose 107 (60-115) mg/dL Calcium 9.2 (8.4-10.6) mg/dL Total Bilirubin 0.5 (0.1-1.5) mg/dL AST 32 (12-35) U/L ALT 17 (4-35) U/L Alkaline Phosphatase 124 (40-150) U/L Total Protein 7.5 (6.0-8.3) g/dL Albumin 4.6 (3.3-5.0) g/dL Urine Color Yellow (Yellow) Urine Appearance Slightly Cloudy A (Clear) Urine pH 5.0 (5.0-8.5) Ur Specific [place] >= 1.030 (1.000-1.030) Urine Protein Negative (Negative) Urine Glucose (UA) Negative (Negative) Urine Ketones 1+ A (Negative) Urine Blood Negative (Negative) Urine Nitrite Negative (Negative) Urine Bilirubin 1+ A (Negative) Urine Urobilinogen 0.2 (0.2-1.0) Ur Leukocyte Esterase Negative (Negative) Urine RBC 0-2 (0-2) Urine WBC 5-10 A (0-5) Ur Squamous Epith Cells Few (None-Few) Urine Bacteria Moderate A (None) Hyaline Casts Many A (None-Few) Imaging Data CT Chest/Ab/Pelvis: Attestation: I have reviewed the pertinent imaging results. Radiologist's impression: The thoracic inlet is unremarkable. The thyroid gland is within normal limits. The thoracic aorta is nonaneurysmal. There is no filling defect to suggest pulmonary embolus. There is no mediastinal, hilar, or axillary adenopathy. There is prior left lobectomy with left sided pleural thickening and parenchymal scar. There are small pulmonary nodules seen within the right upper, middle and lower lobes. There is no pneumothorax. Nondisplaced fracture of the posterior right 10th rib. No other displaced rib injury is identified. The thoracic vertebral body heights are grossly maintained with minimal endplate Schmorl`s defects. There is no significant spondylolisthesis or displaced fracture. There is mild dextroscoliotic deformity of the AP alignment. ABDOMEN AND PELVIS The liver is normal in attenuation and size. The portal vein is patent. The spleen is normal in attenuation and size. The gallbladder is unremarkable without radiopaque calculus. There is no intrahepatic or common ductal dilatation. The stomach and duodenum are grossly unremarkable. The pancreas is normal in enhancement without significant atrophy. The adrenal glands are unremarkable without evidence of adenoma. The kidneys are preserved and corticomedullary differentiation. There is no hydronephrosis or radiopaque calculus. There is a moderate diffuse amount of intracolonic stool. There is minimal distal colonic diverticulosis. The appendix is unremarkable without significant inflammatory change. The abdominal aorta is nonaneurysmal with no significant atherosclerotic disease. There is prior hysterectomy. There is no pathologically enlarged epigastric, mesenteric, retroperitoneal, or pelvic sidewall lymph node. The anterior abdominal wall is grossly intact without significant hernias. There is no free air or free fluid. Degenerative changes of the bilateral hips and sacroiliac joints are appreciated. The lumbar vertebral body heights are grossly maintained in satisfactory alignment without evidence of displaced fracture. Impression: 1. Nondisplaced fracture of the posterior right 10th rib. 2. Postoperative change of the left hemithorax status post lobectomy with left basilar pleural thickening. 3. No acute intra-abdominal abnormalities. Discharge Plan Discharge Clinical Impression: Closed rib fracture Qualifiers: Encounter type: initial encounter Rib fracture type: single rib Laterality: right Qualified Code(s): S22.31XA - Fracture of one rib, right side, initial encounter for closed fracture Patient Disposition: Home, Self-Care Condition: Improved Additional Instructions: Recommend Naprosyn for anti-inflammatory effect as well as pain control. Vicodin also known as hydrocodone and Tylenol combination is available in our [employer] meds machine. You may use this for pain not relieved by Naprosyn. It is important that you practice deep breathing exercises and if you have an incentive spirometer this would be helpful. I would recommend deep breathing at the top of every hour. We talked about splinting if you need to cough or sneeze. Return for worsening symptoms and as needed. Remember that any narcotic will cause constipation and I would suggest the use of Colace and MiraLax as stool softeners. Prescriptions: No Action multivitamin Tablet 1 tab PO QAM bupropion HCl 150 mg tablet sustained-release 12 hr 150 mg PO BID sumatriptan succinate [Imitrex] 25 mg tablet 25 mg PO ONCE PRN Follow Up/Referrals: Doris Ricci MD [Primary Care Provider] - Stand Alone Forms: [facility] Info Instructions
--- NOTE | 2023-12-14 17:16 | CRLHL7_ITS ---
For Patients: As a result of the Century Cures Act, medical imaging exams and procedure reports are released immediately into your electronic medical record. You may view this report before your referring provider. If you have questions, please contact your health care provider. Indication: Right flank trauma, history of left lobectomy, hysterectomy Technique: Volumetric multidetector CT images of the chest, abdomen, and pelvis were obtained after the administration of intravenous contrast. 122 cc Isovue 370 low osmolar intravenous contrast Comparison: CT abdomen and pelvis August 16, 2022 FINDINGS: CHEST The thoracic inlet is unremarkable. The thyroid gland is within normal limits. The thoracic aorta is nonaneurysmal. There is no filling defect to suggest pulmonary embolus. There is no mediastinal, hilar, or axillary adenopathy. There is prior left lobectomy with left sided pleural thickening and parenchymal scar. There are small pulmonary nodules seen within the right upper, middle and lower lobes. There is no pneumothorax. Nondisplaced fracture of the posterior right 10th rib. No other displaced rib injury is identified. The thoracic vertebral body heights are grossly maintained with minimal endplate Schmorl`s defects. There is no significant spondylolisthesis or displaced fracture. There is mild dextroscoliotic deformity of the AP alignment. ABDOMEN AND PELVIS The liver is normal in attenuation and size. The portal vein is patent. The spleen is normal in attenuation and size. The gallbladder is unremarkable without radiopaque calculus. There is no intrahepatic or common ductal dilatation. The stomach and duodenum are grossly unremarkable. The pancreas is normal in enhancement without significant atrophy. The adrenal glands are unremarkable without evidence of adenoma. The kidneys are preserved and corticomedullary differentiation. There is no hydronephrosis or radiopaque calculus. There is a moderate diffuse amount of intracolonic stool. There is minimal distal colonic diverticulosis. The appendix is unremarkable without significant inflammatory change. The abdominal aorta is nonaneurysmal with no significant atherosclerotic disease. There is prior hysterectomy. There is no pathologically enlarged epigastric, mesenteric, retroperitoneal, or pelvic sidewall lymph node. The anterior abdominal wall is grossly intact without significant hernias. There is no free air or free fluid. Degenerative changes of the bilateral hips and sacroiliac joints are appreciated. The lumbar vertebral body heights are grossly maintained in satisfactory alignment without evidence of displaced fracture. Impression: 1. Nondisplaced fracture of the posterior right 10th rib. 2. Postoperative change of the left hemithorax status post lobectomy with left basilar pleural thickening. 3. No acute intra-abdominal abnormalities. Please note that all CT scans at this facility use dose modulation, iterative reconstruction, and/or weight-based dosing when appropriate to reduce radiation dose to as low as reasonably achievable. Dictated by Nic Hernandez MD @ 12/14/2023 6:35:55 PM (Electronically Signed)
[2023-12-14] MEDS: ONDANSETRON 2 MG/ML inj 4 MG IVP (17:53)
[2023-12-14] MEDS: MORPHINE 4 MG/ML INJ IVP (17:53)
[2023-12-14 17:59] LABS: Basophils Absolute Auto 0.03 K/uL (0.00-0.30); Basophils Percent Auto 0.3 % (0.0-3.0); Eosinophils Absolute Auto 0.03 K/uL (0.00-0.50); Eosinophils Percent Auto 0.3 % (0.0-7.0); Hematocrit 37.6 % (33.0-51.0); Hemoglobin* 12.1 gm/dL (12.0-16.0); Immature Granulocytes Abs Auto 0.04 K/uL (0.00-0.30); Immature Granulocytes Pct Auto 0.4 %; Lymphocytes Percent Auto 9.2 % (20-44); Mean Corpuscular HGB Conc 32 gm/dL (32-36); Mean Corpuscular Hemoglobin 29 pg (26-34); Mean Corpuscular Volume 91 fL (80-100); Monocytes Percent Auto 3.2 % (0.0-11.0); Neutrophils Percent Auto 86.6 % (42.0-72.0); Platelet Count* 336 K/uL (140-440); RDW Coefficient of Variation % 13.8 % (11.5-15.5); Red Blood Count 4.15 m/uL (4.00-5.20); White Blood Count* 9.68 K/uL (4.50-11.00)
[2023-12-14 18:01] LABS: Slide Review Reflex No
[2023-12-14 18:05] LABS: Appearance Urine Slightly Cloudy (Clear); Bilirubin Urine 1+ (Negative); Blood Urine Negative (Negative); Color Urine Yellow (Yellow); Glucose Urine Negative (Negative); Ketones Urine 1+ (Negative); Leukocyte Esterase Urine Negative (Negative); Nitrite Urine Negative (Negative); Protein Urine Negative (Negative); Specific Gravity Urine >= 1.030 (1.000-1.030); Urobilinogen Urine 0.2 (0.2-1.0)
[2023-12-14 18:16] LABS: Chloride* 103 mmol/L (96-114)
[2023-12-14 18:17] LABS: Albumin* 4.6 g/dL (3.3-5.0); Potassium* 3.8 mmol/L (3.6-5.1); Sodium* 137 mmol/L (135-149)
[2023-12-14 18:20] LABS: Alanine Aminotransferase* 17 U/L (4-35); Alkaline Phosphatase* 124 U/L (40-150); Anion Gap 10 mEq/L (7-15); Aspartate Amino Transferase* 32 U/L (12-35); Bilirubin Total* 0.5 mg/dL (0.1-1.5); Blood Urea Nitrogen* 21 mg/dL (7-30); Calcium* 9.2 mg/dL (8.4-10.6); Carbon Dioxide* 24 mmol/L (20-32); Creatinine* 1.1 mg/dL (0.5-1.5); Est. Creatinine Clearance* 59.55; Estimated Glomerular Filt Rate 58 ml/min; Glucose* 107 mg/dL (60-115); Total Protein* 7.5 g/dL (6.0-8.3)
--- OUTSIDE RECORDS SUMMARY | 2023-12-14 18:25 | XMS_ITS | Clinical Summary ---
Author Organization [facility] Address [address], [place] [address] Care Team Providers Care Laceworker Name Role Phone Unassigned, Provider Primary Care Provider Unava ilable Source Comments You are receiving this document as you are listed as the primary care provider,follow-up provider, or the patient has been referred to you for consultation.This is in compliance with the Medicare andMedicaid EHR Incentive Program,which states Providers who transition their patient to another setting of careor provider of care or refers their patient to another provider of care shouldprovide summary care record for each transition of care or referral. Digital Lumens Allergies Active Allergy Reactions Criticality Noted Date Comments Sulfa Antibiotics Rash 08/31/2014 Medications Medication Sig Dispensed Refills Start Date End Date Status Keene-3 Fatty Acids (FISH OIL OR) 2 times daily Active buPROPion (WELLBUTRIN XL) 300 MG 24 hour release tablet Take 300 mg by mouth. 02/18/2017 Active Multiple Vitamins-Minerals (MULTIVITAL OR) Take 1 Cap by mouth. Active prazosin (MINIPRESS) 1 MG capsule Take 2 mg by mouth. 02/18/2017 Active venlafaxine (EFFEXORXR) 37.5 MG 24 hour release capsule Take once daily 02/18/2017 Active Active Problems Problem Noted Date Diagnosed Date BCNS (basal cell nevus syndrome) 03/15/2017 Social History Tobacco Use Types Packs/Day Years Used Date Smoking Tobacco: Never Assessed Sex and Gender Information Value Date Recorded Sex Assigned at Not on file Gender Identity Not on file Sexual Orientation Not on file Plan of Treatment Health Maintenance Due Date Last Done Comments Cervical Cancer Screening Due 1965 Colon Cancer Screening Plan Due 1964 Hep C Screening (Preventive Services) 1964 Mammogram 1964 HIV Screening (Preventive Services) 1980 Adult Preventive Visit 1982 DTaP/Tdap/Td (1 - Tdap) 1983 HepB (1) 1983 Cholesterol 2009 Zoster/Shingles (1 of 2) 2014 COVID-19 Vaccine (2022-2 4 season) 2023 Influenza (#1) 2024 HepA Aged Out No longer eligi ble based on patient's age to complete this topic Hib Aged Out No longer eligi ble based on patient's age to complete this topic IPV (Polio) Aged Out No longer eligi ble based on patient's age to complete this topic MCV4 Aged Out No longer eligi ble based on patient's age to complete this topic Pneumococcal Aged Out No longer eligi ble based on patient's age to complete this topic Care Teams Laceworker Relationship Specialty Start Date End Date Unassigned, Provider [address] [place] [id number] PCP - General 06/10/01
--- OUTSIDE RECORDS SUMMARY | 2023-12-14 18:25 | XMS_ITS | Clinical Summary ---
Author Organization [facility] Address [place], [place] [address] Care Team Providers Care Community Association Manager Name Role Phone Zenia Jon MD Primary Care Provider Allergies Active Allergy Reactions Criticality Noted Date Comments Sulfa (Sulfonamide Antibiotics) Rash 08/05 Medications Medication Sig Dispensed Refills Start Date End Date Status buPROPion (WELLBUTRIN XL) 300 mg Extended-Release tablet Take 1 tablet by mouth every morning. 0 08/31/2014 Active LORazepam (ATIVAN) 0.5 mg tab Take 1 tablet by mouth once daily. 0 08/31/2014 Active albuterol HFA (VENTOLIN HFA) 90 mcg/actuation inhalerIndications:UR I, acute Inhale 2 Puffs by mouth 4 times daily if needed. Fill upon request 1 Inhaler 1 09/15/2015 Active prazosin (MINIPRESS) 1 mg capsule 3 total daily 0 09/21/2016 Active venlafaxine (EFFEXOR XR) 37.5 mg Extended-Release capsule Take once daily 01/21/2017 Active Active Problems Problem Noted Date Diagnosed Date Depression 09/01/2014 Overview: Followed by [facility], Dr. Davis. 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 Cedillo of Dermatology. Family History Medical History Relation Name Comments Heart Disease Father Hypertension Father Heart Disease Mother Hypertension Mother Relation Name Status Comments Father 06/2014 Mother Alive Social History Tobacco Use Types Packs/Day Years Used Date Smoking Tobacco: Never Smokeless Tobacco: Never Tobacco Cessation:Counseling Given: Yes Alcohol Use Standard Drinks/Week Comments No 0 (1 standard drink = 0.6 oz pur e alcohol) Sex and Gender Information Value Date Recorded Sex Assigned at Not on file Gender Identity Not on file Sexual Orientation Not on file Obstetrics History Last Filed Vital Signs Vital Sign Reading Time Taken Comments Blood Pressure 129/82 04/15/2017 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 ROLL LATHE OPERATOR Pulse 79 04/15/2017 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 ROLL LATHE OPERATOR Temperature 37.3 ??C (99.2 ??F) 04/15/2017 8:34 AM CS T Respiratory Rate 16 02/07/2017 9:38 AM CDT Oxygen Saturation 97% 04/15/2017 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 ROLL LATHE OPERATOR Inhaled Oxygen Concentration - - Weight 128.7 kg (283 lb 12.8 oz) 04/15/2017 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 ROLL LATHE OPERATOR Height 177.8 cm (5' 10) 04/15/2017 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 ROLL LATHE OPERATOR Body Mass Index 40.72 04/15/2017 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 ROLL LATHE OPERATOR Plan of Treatment Health Maintenance Due Date Last Done Comments HIV for age 15-65 1979 Hepatitis C screening for ag e 18-79 1982 Colonoscopy through age 75 2009 Lipids for age 45-75 2009 Mammogram for age 45-75 2009 Zoster (shingles) series for age 50+ (1 of 2) 2014 Depression screening for age 12+ 02/07/2018 02/07/2017, 03/27/2016, 09/15/2015 BMI (ht and wt on same day) for age 18+ 04/15/2018 04/15/2017, 09/21/2016, 09/15/2015 Tetanus booster 09/01/2019 08/31/2009 COVID-19 vaccine series ( season) 2023 08/20/2020, 07/30/2020 Influenza for age 50-64 01/05/2024 Tdap Completed 08/31/2009 Pneumococcal series for age 6-64 Aged Out No longer eligible b ased on patient's age to complete this topic Care Teams Community Association Manager Relationship Specialty Start Date End Date Zenia Jon MD PCP - General Family Practice 04/15/17
[2023-12-14 18:32] LABS: RBC Urine 0-2 (0-2)
[2023-12-14 18:33] LABS: Bacteria Urine Moderate; Hyaline Casts Urine Many (None-Few); Squamous Epithelial Cell Urine Few (None-Few)
[2023-12-14 19:10] VITALS: PULSE 79; RESP 18; O2SAT 95
[2023-12-14] MEDS: HYDROCODONE-ACETAMIN 5-325 MG 1 TAB PO (19:10)
[2023-12-14 19:15] VITALS: PULSE 79; O2SAT 94
== END 2023-12-14 19:33 | disposition home or self-care (01) ==
PROVIDERS: Emergency Provider Family Medicine; PCP Internal Medicine
DX: S22.31XA Fracture of one rib, right side, initial encounter for closed fracture (principal); W11.XXXA Fall on and from ladder, initial encounter
CPT/HCPCS: 36415; 71260; 74177; 80053; 81001; 85025; 87086; 96374; 96375; 99284; A9270; J2270; J2405; Q9967

== ENCOUNTER 2024-10-28 19:10 | Emergency (ER) | payer BC, SELFPAY ==
--- OUTSIDE RECORDS SUMMARY | 2024-09-14 11:00 | XMS_ITS | Encounter Summary ---
Author Organization [facility] Address [address] [place] [address] Care Team Providers Care Shade Classifier Name Role Phone Cindy Ruiz Unavailable Trevor Espino MD Unavailable [phone] Jaci Whitlock APRN BREAD [employer] PASTRY BAKER Unavailable + Doris Ricci MD Unavailable Yudy Pompa MD Unavailable [phone] Mary Carmen Rodriguez MD Unavailable + Herber Lopez MD Unavailable [phone] Gloria Elizalde MD Unavailable [phone] Mamadou Bowie MD Primary Care Provider [phone] Mamadou Bowie MD Unavailable Makenzie Romano MD Unavailable [phone] Shani Stephenson MD Unavailable [phone] Ita Newton Unavailable Unavailable Kenya Jennings MD Unavailable [phone] Herber Lopez MD Unavailable [phone] Сергей Dumont [facility] Unavailable Unavailable Kenya Jennings MD Unavailable [phone] Jesse Arvizu MD Unavailable Encounter Details Date Type Department Care Team (Late st Contact Info) Description 09/14/2024 11:00 AM CDT [facility] [address] [place] [address] Severe episode of recurrent major depressive disorder, without psychotic features (H) (Primary Dx) Social History Tobacco Use Types Packs/Day Years Used Date Smoking Tobacco: Never Passive Smoke Exposure: Never Smokeless Tobacco: Never Alcohol Use Standard Drinks/Week Comments Not Currently 0 (1 standard drink = 0.6 oz pure alcohol) 1 drink every couple of weeks Social Connection and Isolation Panel [NHANES] A nswer Date Recorded Frequency of Communication with Friends and Fami ly Not on file 04/02/2024 How often do you get togethe r with friends or relatives? Three times a week 04/02/2024 Attends Jewish Services Not on file 04/02 Active Member of Clubs or Organizations Not on f ile 04/02/2024 Attends Club or Organization Meetings Not on jd e 04/02/2024 Marital Status Not on file 04/02/2024 PHQ-2 Answer Date Recorded PHQ-2 Score 3 09/15/2024 [facility] - Occupational Stress Questionnaire Answer Date Recorded Do you feel stress - tense, restless, nervous, or anxious, or unable to sleep at night because your mind is troubled all the time - these days? Only a little 04/02/2024 Exercise Vital Sign Answer Date Recorde d On average, how many days pe r week do you engage in moderate to strenuous exercise (like a brisk walk)? 5 days 04/02/2024 On average, how many minutes do you engage in exercise at this level? 40 min 04/02/2024 Adolescent Education Answer Date Record ed Getting School Help Needed Not on file 01/29 Food Insecurity Answer Date Recorded Within the past 12 months, d id you worry that your food would run out before you got money to buy more? No 04/02/2024 Within the past 12 months, d id the food you bought just not last and you didn t have money to get more? No 04/02/2024 Housing Stability Answer Date Recorded Do you have housing? (Housin g is defined as stable permanent housing and does not include staying outside in a car, in a tent, in an abandoned building, in an overnight senior living, or couch-surfing.) Yes 04/03/2024 Are you worried about losing your housing? No 04/03/2024 Financial Resource Strain Answer Date R ecorded Within the past 12 months, h ave you or your family members you live with been unable to get utilities (heat, electricity) when it was really needed? No 04/02/2024 Transportation Needs Answer Date Record ed Within the past 12 months, h as lack of transportation kept you from medical appointments, getting your medicines, non-medical meetings or appointments, work, or from getting things that you need? No 04/02/2024 Interpersonal Safety Answer Date Record ed Do you feel physically and e motionally safe where you currently live? Yes 03/19/2023 Within the past 12 months, h ave you been hit, slapped, kicked or otherwise physically hurt by someone? No 03/19/2023 Within the past 12 months, h ave you been humiliated or emotionally abused in other ways by your partner or ex-partner? No 03/19/2023 Comments No Sex and Gender Information Value Date Recorded Sex Assigned at Female 11/14/2020 10:33 PM CDT Legal Sex Female 3:58 AM MOTOR POWER CONNECTOR Gender Identity other 11/14/2020 10:33 PM CDT Sexual Orientation Lesbian 06/22/2019 4: 20 AM MOTOR POWER CONNECTOR documented as of this encounter Progress Notes * Brittnee Kiser - 09/14/2024 11:00 AM CDT Images from the original note were not included. [facility] [address] [place] [address] [address] [place] [address] TMS Procedure Note Gabriela Kraus Age: [age] year old Date of : 1965 Gabriela Kraus comes into clinic today at the request of, Jesse Arvizu MD, ordering provider for TMS treatments. Pre-Procedure: History and Physical: Reviewed in medical record Consent signed by: Gabriela Kraus for this course of treatment on: 09/02/2024 Clinical Narrative: Patient tolerated treatment. Had a quiet weekend. Indications for TMS: MDD, recurrent, severe; 4+ medication trials (from 2+ classes) ineffective; Psychotherapy ineffective Procedure Diagnosis: MDD, severe, recurrent F33.2 Treatment Hx: Treatment number this series: 9 Total lifetime treatment number: 9 Allergies Allergen Reactions Adhesive Tape Rash Sulfa Antibiotics Rash LMP (LMP Unknown) Pause for the Cause Right patient: Yes Right procedure/correct coil: Yes; rTMS; cpt 91015; H1 coil. Earplugs in place: Yes Procedure Patient was seated in procedure chair. Identity and procedure was verified. Ear plugs were placed in ears and patient-specific cap was placed on head and tightened appropriately. Ruler locations wereverified. Bone conducting headphones were not used. Coil was placed at 0 - eyebrow - 16 and stimulator was set to 61% (120% of MT). Initial train was well tolerated so 55 trains were delivered. Patient tolerated procedure well with minimal right eyebrow movement. Motor Threshold Determination MT 1: 0 - 6 - 16 @ 51% on 09/02/2024 Standard LDLPFC Frequency: 18 Train Duration: 4 Total pulses delivered: 1980 Inter-train interval: 20 Tx Loc: 0 - eye - 15 (adjusted for comfort) Energy: 61% (120%MT) Trains: 55 *USE SPACER* 09/10/2024 11:13 AM 09/11/2024 9:28 AM 09/14/2024 9:24 AM PHQ-9 SCORE PHQ-9 Total Score MyChart 12 (Moderate depression) 11 (Moderate depression) PHQ-9 Total Score 11 12 11 Patient-reported Date MADRS QIDS PHQ-9 09/02/24 19 13 11 09/11/24 12 12 Plan - Continue TMS treatments This service provided today was under the supervising provider of the day, Jesse Arvizu MD, who was available if needed. Brittnee Kiser TMS Management Associate [facility] Neuromodulation documented in this encounter Plan of Treatment Upcoming Encounters Date Type Department Care Team (Latest Contact Info) Description 10/29/2024 11:00 AM CDT Virtual Visit [facility] [address] [place] [address] 11/23/2024 1:30 PM CDT Office Visit [facility] [place] [phone] [phone] Melanie Boykin MD [address] [place], [place] [address] Gloria Elizalde MD [address] [place] [address] [phone] 12/03/2024 3:00 PM CDT [facility] [address] [place] [phone] Jesse Arvizu MD [address] [place], [place] [address] 12/15/2024 11:40 AM CDT Ancillary Procedure [facility] [address] [place] [phone] Yudy Pompa MD [address] [place] [address] [phone] 12/22/2024 11:40 AM CDT Oncology Visit [facility] [address] [place] [phone] Yudy Pompa MD [address] [place] [phone] 02/22/2025 12:30 PM CDT Office Visit [facility] [address] [place] [phone] Kenya Jennings MD [address] [place] [address] [phone] 03/12/2025 1:00 PM MOTOR POWER CONNECTOR Office Visit [facility] Internal Medicine [address] [place] [address] Mamadou Bowie MD [address] [place] [address] [phone] 03/23/2025 8:00 AM MOTOR POWER CONNECTOR Hospital Encounter [facility] [address] [place] [address] [phone] Kenya Jennings MD [address] [place] [place] [address] [phone] 03/23/2025 8:00 AM MOTOR POWER CONNECTOR - 03/23/2025 12:05 PM MOTOR POWER CONNECTOR Surgery [facility] [address] [place] [address] [phone] Kenya Jennings MD [address] [place] [address] [phone] MASTECTOMY, BILATERAL, SIMPLE, NO nipple grafts. OnQ 03/30/2025 10:00 AM MOTOR POWER CONNECTOR [facility] [address] [phone] Lynn Parks APRN [address] [address] 04/16/2025 1:00 PM MOTOR POWER CONNECTOR Office Visit [facility] Internal Medicine [address] [phone] Mamadou Bowie MD [address] [place] [address] [phone] 05/03/2025 4:00 PM MOTOR POWER CONNECTOR [facility] Visit [facility] [address] [phone] Kenya Jennings MD [address] [place] [address] [phone] 08/17/2025 12:15 PM CDT Office Visit [facility] [place] [address] 3rd [place] [address] Herber Lopez MD [address] [facility] [address] [place] [address] Scheduled Procedures Name Priority Associated Diagnoses Date/Ti me MASTECTOMY, BILATERAL, FOR GENDER AFFIRMATION Gender dysphoria in adult 03/23/2025 8:00 AM MOTOR POWER CONNECTOR documented as of this encounter Goals Goal Patient Goal Type Associated Problems Recent Progress Patient-Stated? Author MYC ECC SURG ENROLL Care Plan MyC ECC SURG ENROLL No Fina Benjamin documented as of this encounter Procedures Procedure Name Priority Date/Time Associated Diagnosis Comments [place] TRANSCRANIAL MAGNETIC STIMULATION TREATMENT,DELIVERY/MANAG EMENT Routine 09/14/2024 11:09 AM CDT Severe episode of recurrent major depressive disorder, without psychotic features (H) documented in this encounter Visit Diagnoses Diagnosis Severe episode of recurrent major depressive disorder, without psychotic features (H)- Primary Gender dysphoria in adult documented in this encounter Additional Health Concerns Active Problems Noted Date Diagnosed Date MyC ECC SURG ENROLL 09/11/2024 Assessment Noted Time PHQ-9 Depression Total Score: 025 9:24 AM CDT documented as of this encounter Care Teams Shade Classifier Relationship Specialty Start Date End Date Mamadou Bowie MD [address] [place] [address] PCP - General 03/18/23 Cindy Ruiz [facility] [address] [place] [address] Resident Internal Medicine 12/07/14 Trevor Espino MD [address] [place] [address] Urology 05/16/16 Jaci Whitlock APRN BREAD [employer] PASTRY BAKER [address] [facility] [address] [place], [place] [phone] Nurse Practitioner - Women's Health 12/14/16 Doris Ricci MD [facility] [address] [place] [address] Physician Internal Medicine 07/11/20 Yudy Pompa MD [address] [place] [address] [phone] Assigned Cancer Care Provider 08/21/20 Mary Carmen Rodriguez MD [address] [facility] [address] [place], [place] [address] Dermatology 11/09/20 Herber Lopez MD [address] [facility] [address] [place], [place] [phone] Dermapathology 11/09/20 Gloria Elizalde MD [address] [place], [place] [phone] Resident 12/24/22 Mamadou Bowie MD [address] [place] [address] [phone] Assigned PCP 03/23/23 Makenzie Romano MD [address] [place] [address] [phone] offset machine operator & Neurology - Child & Adolescent Psychiatry 11/08/23 Shani Stephenson MD [address] [place] [address] Resident Psychiatry 11/08/23 Ita Newton Specialty Centerless Grinder 06/04/24 Kenya Jennings MD [address] [place] [address] [address] [place] [address] Plastic Surgery 06/04/24 Herber Lopez MD [address] [place] [address] [address] [place] [address] Assigned Dermatology Provider 07/26/24 Сергей Dumont [facility] Fur Trimming Machine Operator 08/13/24 Kenya Jennings MD [address] [place] [address] [phone] Assigned Surgical Provider 08/26/24 Jesse Arvizu MD [address] [place] [address] Assigned Behavioral Health Provider 08/26/24 09/24/24 documented as of this encounter
--- OUTSIDE RECORDS SUMMARY | 2024-09-15 11:00 | XMS_ITS | Encounter Summary ---
Author Organization [facility] Address [address] [place] [address] Care Team Providers Care Vision Impaired Teacher Name Role Phone Cindy Ruiz Unavailable Trevor Espino MD Unavailable [phone] Jaci Whitlock APRN SALES DEPARTMENT CLERK Unavailable + Doris Ricci MD Unavailable Yudy Pompa MD Unavailable [phone] Mary Carmen Rodriguez MD Unavailable + Herber Lopez MD Unavailable [phone] Gloria Elizalde MD Unavailable [phone] Mamadou Bowie MD Primary Care Provider [phone] Mamadou Bowie MD Unavailable Makenzie Romano MD Unavailable [phone] Shani Stephenson MD Unavailable [phone] Ita Newton Unavailable Unavailable Kenya Jennings MD Unavailable [phone] Herber Lopez MD Unavailable [phone] Сергей Dumont [facility] Unavailable Unavailable Kenya Jennings MD Unavailable [phone] Jesse Arvizu MD Unavailable Encounter Details Date Type Department Care Team (Late st Contact Info) Description 09/15/2024 11:00 AM CDT [facility] [address] [place] [address] Severe episode of recurrent major [...] relatives? Three times a week 04/02/2024 Attends Synagogue Services Not on file 04/02 Active Member of Clubs or Organizations Not on f ile 04/02/2024 Attends Club or Organization Meetings Not on jd e 04/02/2024 Marital Status Not on file 04/02/2024 PHQ-2 Answer Date Recorded PHQ-2 Score 4 09/16/2024 [facility] of Occupat ional Health - Occupational Stress [...] in an abandoned building, in an overnight chcf, or couch-surfing.) Yes 04/03/2024 Are you worried [...] PM CDT Legal Sex Female 3:58 AM SCIENCE INTERPRETER Gender Identity other 11/14/2020 10:33 PM CDT Sexual Orientation Lesbian 06/22/2019 4: 20 AM SCIENCE INTERPRETER documented as of this encounter Progress Notes * Chapis Branch - 09/15/2024 11:00 AM CDT Images from the original note were not included. Interventional Psychiatry Program [address] [place] [address], [address] [place] [address] TMS Procedure Note Gabriela Kraus Age: [age] year old Date of : 1965 Gabriela Kraus comes into clinic today at the request of, Jesse Arvizu MD, ordering provider for TMS treatments. Pre-Procedure: History and Physical: Reviewed in medical record Consent signed by: Gabriela Kraus for this course of treatment on: 09/02/2024 Clinical Narrative: Patient tolerated treatment. Has some yard work to do. Indications for TMS: MDD, recurrent, severe; 4+ medication trials (from 2+ classes) ineffective; Psychotherapy ineffective Procedure Diagnosis: MDD, severe, recurrent F33.2 Treatment Hx: Treatment number this series: 10 Total lifetime treatment number: 10 Allergies Allergen Reactions Adhesive Tape Rash Sulfa Antibiotics Rash LMP (LMP Unknown) Pause for the Cause Right patient: Yes Right procedure/correct coil: Yes; rTMS; cpt 99041; H1 coil. Earplugs in place: Yes Procedure [...] Energy: 61% (120%MT) Trains: 55 *USE SPACER* 09/11/2024 9:28 AM 09/14/2024 9:24 AM 09/15/2024 11:04 AM PHQ-9 SCORE PHQ-9 Total Score MyChart 12 (Moderate depression) 11 (Moderate depression) PHQ-9 Total Score 12 11 9 Patient-reported Date MADRS QIDS PHQ-9 09/02/24 19 13 11 09/11/24 12 12 Plan - Continue TMS treatments This service provided today was under the supervising provider of the day, Ulisses Mccartney MD, who was available if needed. Chapis Branch TMS Treatment Technician [facility] Neuromodulation documented in this encounter Plan of Treatment Upcoming Encounters Date Type Department Care Team (Latest Contact Info) Description 10/29/2024 11:00 AM CDT Virtual Visit [facility] [address] [facility] [address] [place] [address] 11/23/2024 1:30 PM CDT Office Visit [facility] & Addiction [address] [phone] Melanie Boykin MD [address] [place], [place] [address] Gloria Elizalde MD [address] [place] [address] 816655 12/03/2024 3:00 PM CDT [facility] [address] [facility] [address] [place] [phone] Jesse Arvizu MD [address] [place], [place] [address] 12/15/2024 11:40 AM CDT Ancillary Procedure [facility] Clinic [address] [place] [phone] Yudy Pompa MD [address] [place] [address] 538175 12/22/2024 11:40 AM CDT Oncology Visit [facility] [address] [place] [phone] Yudy Pompa MD [address] [place] [address] [phone] 02/22/2025 12:30 PM CDT Office Visit [facility]astic [facility] Reconstructive Surgery Clinic [address] [place] [phone] Kenya Jennings MD [address] [place] [address] 014885 03/12/2025 1:00 PM SCIENCE INTERPRETER Office Visit [facility] Internal Medicine [address] [place] [address] Mamadou Bowie MD [address] [place] [address] 485885 03/23/2025 8:00 AM SCIENCE INTERPRETER Hospital Encounter [facility] PeriOp Services [address] [place] [address] [phone] Kenya Jennings MD [address] [place] [address] 358615 03/23/2025 8:00 AM SCIENCE INTERPRETER - 03/23/2025 12:05 PM SCIENCE INTERPRETER Surgery [facility] [address] [place] [address] [phone] Kenya Jennings MD [address] [place] [address] 847005 MASTECTOMY, BILATERAL, SIMPLE, NO nipple grafts. OnQ 03/30/2025 10:00 AM SCIENCE INTERPRETER Office Visit [facility] [address] [phone] Lynn Parks APRN [address] [address] 04/16/2025 1:00 PM SCIENCE INTERPRETER Office Visit [facility] Internal Medicine [address] [phone] Mamadou Bowie MD [address] [place] [address] [phone] 05/03/2025 4:00 PM SCIENCE INTERPRETER Office Visit [facility] [address] [phone] Kenya Jennings MD [address] [place] [address] [phone] 08/17/2025 12:15 PM CDT Office Visit [facility] Dermatology Clinic [place] [address] [facility] 3rd [place] [address] Herber Lopez MD [address] [facility] 98 [place] [address] Scheduled Procedures Name Priority Associated Diagnoses Date/Ti me MASTECTOMY, BILATERAL, FOR GENDER AFFIRMATION Gender dysphoria in adult 03/23/2025 8:00 AM SCIENCE INTERPRETER documented as of this encounter Goals Goal Patient Goal Type Associated Problems Recent Progress Patient-Stated? Author MYC ECC SURG ENROLL Care Plan MyC ECC SURG ENROLL No Fina Benjamin documented as of this encounter Procedures Procedure Name Priority Date/Time Associated Diagnosis Comments [place] TRANSCRANIAL MAGNETIC STIMULATION TREATMENT,DELIVERY/MANAG EMENT Routine 09/15/2024 11:05 AM CDT Severe episode of recurrent major depressive disorder, without psychotic features (H) documented in this encounter Visit Diagnoses Diagnosis Severe episode of recurrent major depressive disorder, without psychotic features (H)- Primary Gender dysphoria in adult documented in this encounter Additional Health Concerns Active Problems Noted Date Diagnosed Date MyC ECC SURG ENROLL 09/11/2024 Assessment Noted Time PHQ-9 Depression Total Score: 9 10/28/ 25 10:21 AM CDT documented as of this encounter Care Teams Vision Impaired Teacher Relationship Specialty Start Date End Date Mamadou Bowie MD [address] [place] [address] PCP - General 03/18/23 Cindy Ruiz [facility] [address] [place] [address] Resident Internal Medicine 12/07/14 Trevor Espino MD [address] [place] [address] Urology 05/16/16 Jaci Whitlock APRN SALES DEPARTMENT CLERK [address] [facility] [address] [place], [place] [phone] Nurse Practitioner - Women's Health 12/14/16 Doris Ricci MD [facility] [address] [place] [address] Physician Internal Medicine 07/11/20 Yudy Pompa MD [address] [place] [address] [phone] Assigned Cancer Care Provider 08/21/20 Mary Carmen Rodriguez MD 420 [facility] 98 [place], [place] 720075 Dermatology 11/09/20 Herber Lopez MD [address] [facility] 98 [place], [place] [phone] Dermapathology 11/09/20 Gloria Elizalde MD 420 [place], [place] [phone] Resident 12/24/22 Mamadou Bowie MD [address] [place] [address] 378315 Assigned PCP 03/23/23 Makenzie Romano MD [address] [place] [address] [phone] truss puller helper & Neurology - Child & Adolescent Psychiatry 11/08/23 Shani Stephenson MD [address] [place] [address] Resident Psychiatry 11/08/23 Ita Newton Specialty Amplifier Mechanic 06/04/24 Kenya Jennings MD [address] [place] [address] 195 [place] [address] Plastic Surgery 06/04/24 Herber Lopez MD [address] [place] [address] 98 [place] [address] Assigned Dermatology Provider 07/26/24 Сергей Dumont [facility] Programming Engineer 08/13/24 Kenya Jennings MD [address] [place] [address] [phone] Assigned Surgical Provider 08/26/24 Jesse Arvizu MD [address] [place] [address] Assigned Behavioral Health Provider 08/26/24 09/24/24 documented as of this encounter
--- OUTSIDE RECORDS SUMMARY | 2024-09-16 11:00 | XMS_ITS | Encounter Summary ---
Author Organization [facility] Address [address] [place] [address] Care Team Providers Care Mdm Sr Name Role Phone Cindy Ruiz Unavailable [phone] Trevor Espino MD Unavailable [phone] Jaci Whitlock APRN ASSOCIATE PROFESSOR OF SOCIOLOGY Unavailable + Doris Ricci MD Unavailable Yudy Pompa MD Unavailable [phone] Mary Carmen Rodriguez MD Unavailable + Herber Lopez MD Unavailable [phone] Gloria Elizalde MD Unavailable [phone] Mamadou Bowie MD Primary Care Provider [phone] Mamadou Bowie MD Unavailable Makenzie Romano MD Unavailable Shani Stephenson MD Unavailable [phone] Ita Newton Unavailable Unavailable Kenya Jennings MD Unavailable [phone] Herber Lopez MD Unavailable [phone] Сергей Dumont [facility] Unavailable Unavailable Kenya Jennings MD Unavailable [phone] Jesse Arvizu MD Unavailable Encounter Details Date Type Department Care Team (Late st Contact Info) Description 09/16/2024 11:00 AM CDT [facility] [address] [place] [address] Severe episode of recurrent major [...] relatives? Three times a week 04/02/2024 Attends Spiritism Services Not on file 04/02 Active Member of Clubs or Organizations Not on f ile 04/02/2024 Attends Club or Organization Meetings Not on jd e 04/02/2024 Marital Status Not on file 04/02/2024 PHQ-2 Answer Date Recorded PHQ-2 Score 3 09/17/2024 [facility] of Occupat ional Health - Occupational Stress [...] in an abandoned building, in an overnight detention, or couch-surfing.) Yes 04/03/2024 Are you worried [...] PM CDT Legal Sex Female 3:58 AM LAWN SPECIALIST Gender Identity other 11/14/2020 10:33 PM CDT Sexual Orientation Lesbian 06/22/2019 4: 20 AM LAWN SPECIALIST documented as of this encounter Progress Notes * Chapis Branch - 09/16/2024 11:00 AM CDT Images from the original note were not included. Interventional Psychiatry Program [address] [place] [address], [address] [place] [address] TMS Procedure Note Gabriela Kraus Age: [age] year old Date of : 1965 Gabriela Kraus comes into clinic today at the request of, Jesse Arvizu MD, ordering provider for TMS treatments. Pre-Procedure: History and Physical: Reviewed in medical record Consent signed by: Gabriela Kraus for this course of treatment on: 09/02/2024 Clinical Narrative: Patient tolerated treatment. Just going to hangout today. Indications for TMS: MDD, recurrent, severe; 4+ medication trials (from 2+ classes) ineffective; Psychotherapy ineffective Procedure Diagnosis: MDD, severe, recurrent F33.2 Treatment Hx: Treatment number this series: 11 Total lifetime treatment number: 11 Allergies Allergen Reactions Adhesive Tape Rash Sulfa Antibiotics Rash LMP (LMP Unknown) Pause for the Cause Right patient: Yes Right procedure/correct coil: Yes; rTMS; cpt 98380; H1 coil. Earplugs in place: Yes Procedure [...] Energy: 61% (120%MT) Trains: 55 *USE SPACER* 09/14/2024 9:24 AM 09/15/2024 11:04 AM 09/16/2024 9:14 AM PHQ-9 SCORE PHQ-9 Total Score MyChart 11 (Moderate depression) 11 (Moderate depression) PHQ-9 Total Score 11 9 11 Patient-reported Date MADRS QIDS PHQ-9 09/02/24 19 13 11 09/11/24 12 12 Plan - Continue TMS treatments This service provided today was under the supervising provider of the day, Jesse Arvizu MD, who was available if needed. Chapis Branch TMS Project Control Officer [facility] Neuromodulation documented in this encounter Plan of Treatment Upcoming Encounters Date Type Department Care Team (Latest Contact Info) Description 10/29/2024 11:00 AM CDT Virtual Visit [facility] Psychiatry Clinic [address] [facility] [address] [place] [address] 11/23/2024 1:30 PM CDT Office Visit [facility] [place] [phone] [phone] Melanie Boykin MD [address] [place], [place] 576994 Gloria Elizalde MD [address] [place] [address] [phone] 12/03/2024 3:00 PM CDT [facility] [address] [facility] [address] [place] [phone] Jesse Arvizu MD [address] [place], [place] 660146 12/15/2024 11:40 AM CDT Ancillary Procedure [facility] Imaging Center CT Clinic [address] [place] [phone] Yudy Pompa MD [address] [place] [address] 942075 12/22/2024 11:40 AM CDT Oncology Visit [facility] [address] [place] [phone] Yudy Pompa MD [address] [place] [address] 720755 02/22/2025 12:30 PM CDT Office Visit [facility] Clinic [address] [place] [address] Kenya Jennings MD [address] [place] [address] [phone] 03/12/2025 1:00 PM LAWN SPECIALIST Office Visit [facility] Internal Medicine [address] [place] [address] Mamadou Bowie MD [address] [place] [address] 03/23/2025 8:00 AM LAWN SPECIALIST Hospital Encounter [facility] PeriOp Services [address] [place] [address] [phone] Kenya Jennings MD [address] [place] [address] 671045 03/23/2025 8:00 AM LAWN SPECIALIST - 03/23/2025 12:05 PM LAWN SPECIALIST Surgery [facility] [address] [place] [address] [phone] Kenya Jennings MD [address] [place] [address] 903175 MASTECTOMY, BILATERAL, SIMPLE, NO nipple grafts. OnQ 03/30/2025 10:00 AM LAWN SPECIALIST Office Visit [facility] [address] [phone] Lynn Parks APRN [address] [address] 04/16/2025 1:00 PM LAWN SPECIALIST Office Visit [facility] Internal Medicine [address] [phone] Mamadou Bowie MD [address] [place] [address] 05/03/2025 4:00 PM LAWN SPECIALIST Office Visit [facility] [address] [phone] Kenya Jennings MD [address] [place] [address] 416105 08/17/2025 12:15 PM CDT Office Visit [facility] Dermatology Clinic [place] [address] [facility] 3rd [place] [address] Herber Lopez MD 420 [facility] 98 [place] [address] Scheduled Procedures Name Priority Associated Diagnoses Date/Ti me MASTECTOMY, BILATERAL, FOR GENDER AFFIRMATION Gender dysphoria in adult 03/23/2025 8:00 AM LAWN SPECIALIST documented as of this encounter Goals Goal Patient Goal Type Associated Problems Recent Progress Patient-Stated? Author MYC ECC SURG ENROLL Care Plan MyC ECC SURG ENROLL No Fina Benjamin documented as of this encounter Procedures Procedure Name Priority Date/Time Associated Diagnosis Comments [place] TRANSCRANIAL MAGNETIC STIMULATION TREATMENT,DELIVERY/MANAG EMENT Routine 09/16/2024 11:09 AM CDT Severe episode of recurrent major depressive disorder, without psychotic features (H) documented in this encounter Visit Diagnoses Diagnosis Severe episode of recurrent major depressive disorder, without psychotic features (H)- Primary Gender dysphoria in adult documented in this encounter Additional Health Concerns Active Problems Noted Date Diagnosed Date MyC ECC SURG ENROLL 09/11/2024 Assessment Noted Time PHQ-9 Depression Total Score: 11 025 9:14 AM CDT documented as of this encounter Care Teams Mdm Sr Relationship Specialty Start Date End Date Mamadou Bowie MD [address] [place] [address] PCP - General 03/18/23 Cindy Ruiz [facility] [address] [place] [address] Resident Internal Medicine 12/07/14 Trevor Espino MD [address] [place] [address] Urology 05/16/16 Jaci Whitlock APRN ASSOCIATE PROFESSOR OF SOCIOLOGY 420 [facility] 395 [place], [place] 0830[address] Nurse Practitioner - Women's Health 12/14/16 Doris Ricci MD [facility] [address] [place] [address] Physician Internal Medicine 07/11/20 Yudy Pompa MD 909 [place] [address] Assigned Cancer Care Provider 08/21/20 Mary Carmen Rodriguez MD 420 [facility] 98 [place], [place] 144575 Dermatology 11/09/20 Herber Lopez MD 420 [facility] 98 [place], [place] [phone] Dermapathology 11/09/20 Gloria Elizalde MD [address] [place] [address] 520225 Resident 12/24/22 Mamadou Bowie MD [address] [place] [address] [phone] Assigned PCP 03/23/23 Makenzie Romano MD [address] [place] [address] [phone] offal icer poultry & Neurology - Child & Adolescent Psychiatry 11/08/23 Shani Stephenson MD [address] [place] [address] Resident Psychiatry 11/08/23 Ita Newton Specialty User Acceptance Tester 06/04/24 Kenya Jennings MD [address] [place] [address] 195 [place] [address] Plastic Surgery 06/04/24 Herber Lopez MD [address] [place] [address] 98 [place] [address] Assigned Dermatology Provider 07/26/24 Сергей Dumont [facility] Record Systems Analyst 08/13/24 Kenya Jennings MD [address] [place] [address] [phone] Assigned Surgical Provider 08/26/24 Jesse Arvizu MD [address] [place] [address] Assigned Behavioral Health Provider 08/26/24 09/24/24 documented as of this encounter
--- OUTSIDE RECORDS SUMMARY | 2024-09-17 11:00 | XMS_ITS | Encounter Summary ---
Author Organization [facility] Address [address] [place] [address] Care Team Providers Care Bunghole Borer Name Role Phone Cindy Ruiz Unavailable Trevor Espino MD Unavailable [phone] Jaci Whitlock APRN COREMAKING MACHINE SETTER Unavailable + Doris Ricci MD Unavailable Yudy Pompa MD Unavailable [phone] Mary Carmen Rodriguez MD Unavailable + Herber Lopez MD Unavailable [phone] Gloria Elizalde MD Unavailable [phone] Mamadou Bowie MD Primary Care Provider [phone] Mamadou Bowie MD Unavailable Makenzie Romano MD Unavailable Shani Stephenson MD Unavailable [phone] Ita Newton Unavailable Unavailable Kenya Jennings MD Unavailable [phone] Herber Lopez MD Unavailable [phone] Сергей Dumont [facility] Unavailable Unavailable Kenya Jennings MD Unavailable [phone] Jesse Arvizu MD Unavailable Encounter Details Date Type Department Care Team (Late st Contact Info) Description 09/17/2024 11:00 AM CDT [facility] [address] [place] [address] [place] [address] Severe episode of recurrent major [...] relatives? Three times a week 04/02/2024 Attends Yazdanism Services Not on file 04/02 Active Member of Clubs or Organizations Not on f ile 04/02/2024 Attends Club or Organization Meetings Not on jd e 04/02/2024 Marital Status Not on file 04/02/2024 PHQ-2 Answer Date Recorded PHQ-2 Score 3 09/18/2024 [facility] - [...] in an abandoned building, in an overnight group home, or couch-surfing.) Yes 04/03/2024 Are you worried [...] PM CDT Legal Sex Female 3:58 AM INDUSTRIAL X RAY OPERATOR Gender Identity other 11/14/2020 10:33 PM CDT Sexual Orientation Lesbian 06/22/2019 4: 20 AM INDUSTRIAL X RAY OPERATOR documented as of this encounter Progress Notes * Brittnee Kiser - 09/17/2024 11:00 AM CDT Images from the original note were not included. Interventional Psychiatry Program [address] [place] [address] [place], [address] [place] [address] TMS Procedure Note Gabriela Kraus Age: [age] year old Date of : 1965 Gabriela Kraus comes into clinic today at the request of, Jesse Arvizu MD, ordering provider for TMS treatments. Pre-Procedure: History and Physical: Reviewed in medical record Consent signed by: Gabriela Kraus for this course of treatment on: 09/02/2024 Clinical Narrative: Patient tolerated treatment. Hanging out with a friend today. Indications for TMS: MDD, recurrent, severe; 4+ medication trials (from 2+ classes) ineffective; Psychotherapy ineffective Procedure Diagnosis: MDD, severe, recurrent F33.2 Treatment Hx: Treatment number this series: 12 Total lifetime treatment number: 12 Allergies Allergen Reactions Adhesive Tape Rash Sulfa Antibiotics Rash LMP (LMP Unknown) Pause for the Cause Right patient: Yes Right procedure/correct coil: Yes; rTMS; cpt 67030; H1 coil. Earplugs in place: Yes Procedure [...] under the supervising provider of the day, Zakiya Ng MD, whowas available if needed. Brittnee Kiser TMS Real Estate Administrative Assistant [facility] Neuromodulation documented in this encounter Plan of Treatment Upcoming Encounters Date Type Department Care Team (Latest Contact Info) Description 10/29/2024 11:00 AM CDT Virtual Visit [facility] Psychiatry [facility] [address] [place] [address] [place] [phone] 11/23/2024 1:30 PM CDT Office Visit [facility] Mental [facility] & Addiction [address] [phone] Melanie Boykin MD [address] [place], [place] [address] Gloria Elizalde MD [address] [place] [address] 183615 12/03/2024 3:00 PM CDT [facility] 5775 [facility] 255 [place] [phone] Jesse Arvizu MD [address] [place], [place] [phone] 12/15/2024 11:40 AM CDT Ancillary Procedure [facility] [address] [place] [phone] Yudy Pompa MD [address] [place] [address] 442535 12/22/2024 11:40 AM CDT Oncology Visit [facility] [address] [place] [phone] Yudy Pompa MD [address] [place] [address] 744085 02/22/2025 12:30 PM CDT Office Visit [facility] [address] [place] [phone] Kenya Jennings MD [address] [place] [address] 296845 03/12/2025 1:00 PM INDUSTRIAL X RAY OPERATOR Office Visit [facility] Internal Medicine [address] [place] [phone] Mamadou Bowie MD [address] [place] [address] 03/23/2025 8:00 AM INDUSTRIAL X RAY OPERATOR Hospital Encounter [facility] PeriOp Services [address] [place] [phone] Kenya Jennings MD [address] [place] [address] 107895 03/23/2025 8:00 AM INDUSTRIAL X RAY OPERATOR - 03/23/2025 12:05 PM INDUSTRIAL X RAY OPERATOR Surgery [facility] [address] [place] [address] [phone] Kenya Jennings MD [address] [place] [address] [phone] MASTECTOMY, BILATERAL, SIMPLE, NO nipple grafts. OnQ 03/30/2025 10:00 AM INDUSTRIAL X RAY OPERATOR Office Visit [facility] [address] [phone] Lynn Parks APRN [address] [address] 04/16/2025 1:00 PM INDUSTRIAL X RAY OPERATOR Office Visit [facility] Internal Medicine [address] [phone] Mamadou Bowie MD [address] [place] [address] 05/03/2025 4:00 PM INDUSTRIAL X RAY OPERATOR Office Visit [facility] [address] [phone] Kenya Jennings MD [address] [place] [address] 08/17/2025 12:15 PM CDT Office Visit [facility] D[facility]at[facility] [place] 909 [facility] 3rd [place] [address] Herber Lopez MD 420 [facility] 98 [place] [address] Scheduled Procedures Name Priority Associated Diagnoses Date/Ti me MASTECTOMY, BILATERAL, FOR GENDER AFFIRMATION Gender dysphoria in adult 03/23/2025 8:00 AM INDUSTRIAL X RAY OPERATOR documented as of this encounter Goals Goal Patient Goal Type Associated Problems Recent Progress Patient-Stated? Author MYC ECC SURG ENROLL Care Plan MyC ECC SURG ENROLL No Fina Benjamin documented as of this encounter Procedures Procedure Name Priority Date/Time Associated Diagnosis Comments [place] TRANSCRANIAL MAGNETIC STIMULATION TREATMENT,DELIVERY/MANAG EMENT Routine 09/17/2024 11:08 AM CDT Severe episode of recurrent major depressive disorder, without psychotic features (H) documented in this encounter Visit Diagnoses Diagnosis Severe episode of recurrent major depressive disorder, without psychotic features (H)- Primary Gender dysphoria in adult documented in this encounter Additional Health Concerns Active Problems Noted Date Diagnosed Date MyC ECC SURG ENROLL 09/11/2024 Assessment Noted Time PHQ-9 Depression Total Score: 9 10/29/19 25 10:21 AM CDT documented as of this encounter Care Teams Bunghole Borer Relationship Specialty Start Date End Date Mamadou Bowie MD [address] [place] [address] PCP - General 03/18/23 Cindy Ruiz [facility] [address] [place] [address] Resident Internal Medicine 12/07/14 Trevor Espino MD [address] [place] [address] Urology 05/16/16 Jaci Whitlock APRN COREMAKING MACHINE SETTER 420 [facility] 395 [place], [place] 256145 Nurse Practitioner - Women's Health 12/14/16 Doris Ricci MD [facility] [address] [place] [address] Physician Internal Medicine 07/11/20 Yudy Pompa MD [address] [place] [address] [phone] Assigned Cancer Care Provider 08/21/20 Mary Carmen Rodriguez MD 420 [facility] 98 [place], [place] 309205 Dermatology 11/09/20 Herber Lopez MD 420 [facility] 98 [place], [place] [phone] Dermapathology 11/09/20 Gloria Elizalde MD 420 [place], [place] 329265 Resident 12/24/22 Mamadou Bowie MD [address] [place] [address] [phone] Assigned PCP 03/23/23 Makenzie Romano MD [address] [place] [address] senior case manager & Neurology - Child & Adolescent Psychiatry 11/08/23 Shani Stephenson MD 420 [place] [address] Resident Psychiatry 11/08/23 Ita Newton Specialty Weather Strip Installer 06/04/24 Kenya Jennings MD 420 [facility] 195 [place], [place] 979485 Plastic Surgery 06/04/24 Herber Lopez MD 420 [facility] 98 [place], [place] 464125 Assigned Dermatology Provider 07/26/24 Сергей Dumont [facility] Motion Graphics Designer 08/13/24 Kenya Jennings MD [address] [phone] Assigned Surgical Provider 08/26/24 Jesse Arvizu MD 5775 [place], [place] 785426 Assigned Behavioral Health Provider 08/26/24 09/24/24 documented as of this encounter
--- OUTSIDE RECORDS SUMMARY | 2024-09-18 11:00 | XMS_ITS | Encounter Summary ---
Author Organization [place] Address [address] [place] [address] Care Team Providers Care Coke Drawer Hand Name Role Phone Cindy Ruiz Unavailable Trevor Espino MD Unavailable [phone] Jaci Whitlock APRN HIDE SPREADER Unavailable + Doris Ricci MD Unavailable Yudy Pompa MD Unavailable [phone] Mary Carmen Rodriguez MD Unavailable + Herber Lopez MD Unavailable [phone] Gloria Elizalde MD Unavailable [phone] Mamadou Bowie MD Primary Care Provider [phone] Mamadou Bowie MD Unavailable Makenzie Romano MD Unavailable [phone] Shani Stephenson MD Unavailable [phone] Ita Newton Unavailable Unavailable Kenya Jennings MD Unavailable [phone] Herber Lopez MD Unavailable [phone] Сергей Dumont [facility] Unavailable Unavailable Kenya Jennings MD Unavailable [phone] Jesse Arvizu MD Unavailable Encounter Details Date Type Department Care Team (Late st Contact Info) Description 09/18/2024 11:00 AM CDT [facility] [address] [place] [address] Severe episode of recurrent major [...] relatives? Three times a week 04/02/2024 Attends Restorationist Services Not on file 04/02 Active Member of Clubs or Organizations Not on f ile 04/02/2024 Attends Club or Organization Meetings Not on jd e 04/02/2024 Marital Status Not on file 04/02/2024 PHQ-2 Answer Date Recorded PHQ-2 Score 3 09/18/2024 [facility]at [facility] Health - [...] in an abandoned building, in an overnight usp, or couch-surfing.) Yes 04/03/2024 Are you worried [...] PM CDT Legal Sex Female 3:58 AM CHILD CARE ASSISTANT Gender Identity other 11/14/2020 10:33 PM CDT Sexual Orientation Lesbian 06/22/2019 4: 20 AM CHILD CARE ASSISTANT documented as of this encounter Progress Notes * Chapis Branch - 09/18/2024 11:00 AM CDT Images from the original note were not included. Interventional Psychiatry Program [address] [place] [address], [address] [place] [address] TMS Procedure Note Gabriela Kraus Age: [age] year old Date of : 1965 Gabriela Kraus comes into clinic today at the request of, Jesse Arvizu MD, ordering provider for TMS treatments. Pre-Procedure: History and Physical: Reviewed in medical record Consent signed by: Gabriela Kraus for this course of treatment on: 09/02/2024 Clinical Narrative: Patient tolerated treatment. Friend is coming back from [place] after a few months and might see her. Indications for TMS: MDD, recurrent, severe; 4+ medication trials (from 2+ classes) ineffective; Psychotherapy ineffective Procedure Diagnosis: MDD, severe, recurrent F33.2 Treatment Hx: Treatment number this series: 13 Total lifetime treatment number: 13 Allergies Allergen Reactions Adhesive Tape Rash Sulfa Antibiotics Rash LMP (LMP Unknown) Pause for the Cause Right patient: Yes Right procedure/correct coil: Yes; rTMS; cpt 78908; H1 coil. Earplugs in place: Yes Procedure [...] Energy: 61% (120%MT) Trains: 55 *USE SPACER* 09/15/2024 11:04 AM 09/16/2024 9:14 AM 09/17/2024 11:08 AM PHQ-9 SCORE PHQ-9 Total Score MyChart 11 (Moderate depression) PHQ-9 Total Score 9 11 9 Patient-reported Date MADRS QIDS PHQ-9 09/02/24 19 13 11 09/11/24 12 12 09/18/24 12 10 Plan - Continue TMS treatments This service provided today was under the supervising provider of the day, Jesse Arvizu MD, who was available if needed. Chapis Branch TMS Silica Spray Mixer [facility] Mental [facility] Neuromodulation documented in this encounter Plan of Treatment Upcoming Encounters Date Type Department Care Team (Latest Contact Info) Description 10/29/2024 11:00 AM CDT Virtual Visit [facility] Psychiatry Clinic 57[address] [facility] [address] [place] [address] 11/23/2024 1:30 PM CDT Office Visit [facility] Mental Health & Addiction [address] [phone] Melanie Boykin MD 2450 [place], [place] 5670[address] Gloria Elizalde MD [address] [place] [address] [phone] 12/03/2024 3:00 PM CDT [facility] 5775 [facility] 255 [place] [phone] Jesse Arvizu MD 5775 [place], [place] 419576 12/15/2024 11:40 AM CDT Ancillary Procedure [facility] Imaging Center CT Clinic [address] [place] [phone] Yudy Pompa MD [address] [place] [address] 603435 12/22/2024 11:40 AM CDT Oncology Visit [facility] [address] [place] [phone] Yudy Pompa MD [address] [place] [address] [phone] 02/22/2025 12:30 PM CDT Office Visit [facility]astic [facility] Reconstruct[facility] Surgery Clinic [address] [place] [phone] Kenya Jennings MD [address] [place] [address] 974265 03/12/2025 1:00 PM CHILD CARE ASSISTANT Office Visit [facility] Internal Medicine [place] [address] [phone] Mamadou Bowie MD [address] [place] [address] 03/23/2025 8:00 AM CHILD CARE ASSISTANT Hospital Encounter [facility] PeriOp Services [address] [place] [address] [phone] Kenya Jennings MD [address] [place] [address] 03/23/2025 8:00 AM CHILD CARE ASSISTANT - 03/23/2025 12:05 PM CHILD CARE ASSISTANT Surgery [facility] [address] [place] [address] [phone] Kenya Jennings MD [address] [place] [address] 199655 MASTECTOMY, BILATERAL, SIMPLE, NO nipple grafts. OnQ 03/30/2025 10:00 AM CHILD CARE ASSISTANT Office Visit [facility] Clinic [address] [phone] Lynn Parks APRN [address] [address] 04/16/2025 1:00 PM CHILD CARE ASSISTANT Office Visit [facility] Internal Medicine [address] [phone] Mamadou Bowie MD [address] [place] [address] 05/03/2025 4:00 PM CHILD CARE ASSISTANT Office Visit [facility] Surgery Clinic [address] [phone] Kenya Jennings MD [address] [place] [address] 08/17/2025 12:15 PM CDT Office Visit [facility] Dermatology Clinic [place] 909 [facility] 3rd [place] [address] Herber Lopez MD 420 [facility] 98 [place], [place] 465045 Scheduled Procedures Name Priority Associated Diagnoses Date/Ti me MASTECTOMY, BILATERAL, FOR GENDER AFFIRMATION Gender dysphoria in adult 03/23/2025 8:00 AM CHILD CARE ASSISTANT documented as of this encounter Goals Goal Patient Goal Type Associated Problems Recent Progress Patient-Stated? Author MYC ECC SURG ENROLL Care Plan MyC ECC SURG ENROLL No Fina Benjamin documented as of this encounter Procedures Procedure Name Priority Date/Time Associated Diagnosis Comments IN TRANSCRANIAL MAGNETIC STIMULATION TREATMENT,DELIVERY/MANAG EMENT Routine 09/18/2024 11:28 AM CDT Severe episode of recurrent major depressive disorder, without psychotic features (H) documented in this encounter Visit Diagnoses Diagnosis Severe episode of recurrent major depressive disorder, without psychotic features (H)- Primary Gender dysphoria in adult documented in this encounter Additional Health Concerns Active Problems Noted Date Diagnosed Date MyC ECC SURG ENROLL 09/11/2024 Assessment Noted Time PHQ-9 Depression Total Score: 10 025 11:26 AM CDT documented as of this encounter Care Teams Coke Drawer Hand Relationship Specialty Start Date End Date Mamadou Bowie MD [address] [place] [address] PCP - General 03/18/23 Cindy Ru[place] [place] [address] Resident Internal Medicine 12/07/14 Trevor Espino MD [address] [place] [address] Urology 1/11/17 Jaci [place] APRN HIDE SPREADER 420 [facility] 395 [place], [place] 934035 Nurse Practitioner - Women's Health 12/14/16 Doris Ricci MD [facility] 2000 [place] [address] Physician Internal Medicine 07/11/20 Yudy Pompa MD [address] [place] [address] 709245 Assigned Cancer Care Provider 08/21/20 Mary Carmen Rodriguez MD 420 [facility] 98 [place], [place] 330825 Dermatology 11/09/20 Herber Lopez MD 420 [facility] 98 [place], [place] [address] Dermapathology 11/09/20 Gloria Elizalde MD 420 [place], [place] 747925 Resident 12/24/22 Mamadou Bowie MD [address] [place] [address] [phone] Assigned PCP 03/23/23 Makenzie Romano MD [address] [place] [address] equipment analyst & Neurology - Child & Adolescent Psychiatry 11/08/23 Shani Stephenson MD 420 [place], [place] 576565 Resident Psychiatry 11/08/23 Ita Newton Specialty Coatings Inspector 06/04/24 Kenya Jennings MD 420 [facility] 195 [place], [place] 484565 Plastic Surgery 06/04/24 Herber Lopez MD 420 [facility] 98 [place], [place] 108745 Assigned Dermatology Provider 07/26/24 Сергей Dumont [facility] Engravings Polisher 08/13/24 Kenya Jennings MD 420 [facility] 195 [place], [place] 280415 Assigned Surgical Provider 08/26/24 Jesse Arvizu MD 5775 [place], [place] 334486 Assigned Behavioral Health Provider 08/26/24 09/24/24 documented as of this encounter
--- OUTSIDE RECORDS SUMMARY | 2024-09-21 11:00 | XMS_ITS | Encounter Summary ---
Author Organization [facility] Address [address] [place] [address] Care Team Providers Care Adjunct Teacher Name Role Phone Cindy Ruiz Unavailable Trevor Espino MD Unavailable [phone] Jaci Whitlock APRN MOLECULAR BIOLOGY DIRECTOR Unavailable + Doris Ricci MD Unavailable Yudy Pompa MD Unavailable [phone] Mary Carmen Rodriguez MD Unavailable + Herber Lopez MD Unavailable [phone] Gloria Elizalde MD Unavailable [phone] Mamadou Bowie MD Primary Care Provider [phone] Mamadou Bowie MD Unavailable Makenzie Romano MD Unavailable [phone] Shani Stephenson MD Unavailable [phone] Ita Newton Unavailable Unavailable Kenya Jennings MD Unavailable [phone] Herber Lopez MD Unavailable [phone] Сергей Dumont [facility] Unavailable Unavailable Kenya Jennings MD Unavailable [phone] Jesse Arvizu MD Unavailable Encounter Details Date Type Department Care Team (Late st Contact Info) Description 09/21/2024 11:00 AM CDT Office Visit [facility] [address] [place] [address] Severe episode of recurrent major [...] relatives? Three times a week 04/02/2024 Attends Congregation Services Not on file 04/02 Active Member of Clubs or Organizations Not on f ile 04/02/2024 Attends Club or Organization Meetings Not on jd e 04/02/2024 Marital Status Not on file 04/02/2024 PHQ-2 Answer Date Recorded PHQ-2 Score 3 09/22/2024 [facility] - Occupational Stress [...] in an abandoned building, in an overnight longterm, or couch-surfing.) Yes 04/03/2024 Are you worried [...] PM CDT Legal Sex Female 3:58 AM PUMPER GAUGER Gender Identity other 11/14/2020 10:33 PM CDT Sexual Orientation Lesbian 06/22/2019 4: 20 AM PUMPER GAUGER documented as of this encounter Progress Notes * Chapis Branch - 09/21/2024 11:00 AM CDT Images from the original note were not included. Interventional Psychiatry Program [address] [place] [address], [address] [place] [address] TMS Procedure Note Gabriela Kraus Age: [age] year old Date of : 1965 Gabriela Kraus comes into clinic today at the request of, Jesse Arvizu MD, ordering provider for TMS treatments. Pre-Procedure: History and Physical: Reviewed in medical record Consent signed by: Gabriela Kraus for this course of treatment on: 09/02/2024 Clinical Narrative: Patient tolerated treatment. Was able to hangout with friends over the weekend. Indications for TMS: MDD, recurrent, severe; 4+ medication trials (from 2+ classes) ineffective; Psychotherapy ineffective Procedure Diagnosis: MDD, severe, recurrent F33.2 Treatment Hx: Treatment number this series: 14 Total lifetime treatment number: 14 Allergies Allergen Reactions Adhesive Tape Rash Sulfa Antibiotics Rash LMP (LMP Unknown) Pause for the Cause Right patient: Yes Right procedure/correct coil: Yes; rTMS; cpt 51067; H1 coil. Earplugs in place: Yes Procedure [...] Energy: 61% (120%MT) Trains: 55 *USE SPACER* 09/17/2024 11:08 AM 09/18/2024 11:25 AM 09/21/2024 8:58 AM PHQ-9 SCORE PHQ-9 Total Score MyChart 8 (Mild depression) PHQ-9 Total Score 9 10 8 Patient-reported Date MADRS QIDS PHQ-9 09/02/24 19 13 11 09/11/24 12 12 09/18/24 12 10 Plan - Continue TMS treatments This service provided today was under the supervising provider of the day, Jesse Arvizu MD, who was available if needed. Chapis Branch TMS Beauty Advisor [facility] Physicians [facility] Neuromodulation documented in this encounter Plan of Treatment Upcoming Encounters Date Type Department Care Team (Latest Contact Info) Description 10/29/2024 11:00 AM CDT Virtual Visit [facility] Psychiatry [facility] [address] [place] [address] [place] [phone] 11/23/2024 1:30 PM CDT Office Visit [facility] Mental Health & Addiction [address] [phone] Melanie Boykin MD [address] [place], [place] 983[address] Gloria Elizalde MD [address] [place] [address] 150365 12/03/2024 3:00 PM CDT [facility] 5775 [facility] 255 [place] [phone] Jesse Arvizu MD [address] [place], [place] [phone] 12/15/2024 11:40 AM CDT Ancillary Procedure [facility] Imaging Center CT Clinic [address] [place] [phone] Yudy Pompa MD [address] [place] [address] [phone] 12/22/2024 11:40 AM CDT Oncology Visit [facility] [address] [place] [phone] Yudy Pompa MD [address] [place] [address] 976135 02/22/2025 12:30 PM CDT Office Visit [facility] Plastic [facility] Reconstructive Surgery Clinic [address] [place] [phone] Kenya Jennings MD [address] [place] [address] 594335 03/12/2025 1:00 PM PUMPER GAUGER Office Visit [facility] Internal Medicine [address] [place] [phone] Mamadou Bowie MD [address] [place] [address] 03/23/2025 8:00 AM PUMPER GAUGER Hospital Encounter [facility] PeriOp Services [address] [place] [phone] Kenya Jennings MD [address] [place] [address] [phone] 03/23/2025 8:00 AM PUMPER GAUGER - 03/23/2025 12:05 PM PUMPER GAUGER Surgery [facility] [address] [place] [phone] Kenya Jennings MD [address] [place] [address] [phone] MASTECTOMY, BILATERAL, SIMPLE, NO nipple grafts. OnQ 03/30/2025 10:00 AM PUMPER GAUGER Office Visit [facility] [address] [phone] Lynn Parks APRN [address] [address] 04/16/2025 1:00 PM PUMPER GAUGER Office Visit [facility] Internal Medicine [address] [phone] Mamadou Bowie MD [address] [place] [address] 05/03/2025 4:00 PM PUMPER GAUGER Office Visit [facility] [address] [phone] Kenya Jennings MD [address] [place] [address] 08/17/2025 12:15 PM CDT Office Visit [facility] Dermatology Clinic [place] 9[address] [facility] 3rd [place] [address] Herber Lopez MD 420 [facility] [address] [place] [address] Scheduled Procedures Name Priority Associated Diagnoses Date/Ti me MASTECTOMY, BILATERAL, FOR GENDER AFFIRMATION Gender dysphoria in adult 03/23/2025 8:00 AM PUMPER GAUGER documented as of this encounter Goals Goal Patient Goal Type Associated Problems Recent Progress Patient-Stated? Author MYC ECC SURG ENROLL Care Plan MyC ECC SURG ENROLL No Fina Benjamin documented as of this encounter Procedures Procedure Name Priority Date/Time Associated Diagnosis Comments [place] TRANSCRANIAL MAGNETIC STIMULATION TREATMENT,DELIVERY/MANAG EMENT Routine 09/21/2024 11:11 AM CDT Severe episode of recurrent major depressive disorder, without psychotic features (H) documented in this encounter Visit Diagnoses Diagnosis Severe episode of recurrent major depressive disorder, without psychotic features (H)- Primary Gender dysphoria in adult documented in this encounter Additional Health Concerns Active Problems Noted Date Diagnosed Date MyC ECC SURG ENROLL 09/11/2024 Assessment Noted Time PHQ-9 Depression Total Score: 8 09/22/19 25 8:58 AM CDT documented as of this encounter Care Teams Adjunct Teacher Relationship Specialty Start Date End Date Mamadou Bowie MD [address] [place] [address] PCP - General 03/18/23 Cindy Ruiz [facility] [address] [place] [address] Resident Internal Medicine 12/07/14 Trevor Espino MD [address] [place] [address] Urology 05/16/16 Jaci Whitlock APRN MOLECULAR BIOLOGY DIRECTOR 420 [facility] [address] [place], [place] 5532[address] Nurse Practitioner - Women's Health 12/14/16 Doris Ricci MD [facility] [address] [place] [address] Physician Internal Medicine 07/11/20 Yudy Pompa MD [address] [place] [address] 777185 Assigned Cancer Care Provider 08/21/20 Mary Carmen Rodriguez MD 420 [facility] 98 [place], [place] [phone] Dermatology 11/09/20 Herber Lopez MD 420 [facility] [address] [place], [place] 489[address] Dermapathology 11/09/20 Gloria Elizalde MD 420 [place], [place] 794425 Resident 12/24/22 Mamadou Bowie MD [address] [place] [address] 066215 Assigned PCP 03/23/23 Makenzie Romano MD [address] [place] [address] cerner analyst & Neurology - Child & Adolescent Psychiatry 11/08/23 Shani Stephenson MD 420 [place] [address] Resident Psychiatry 11/08/23 Ita Newton Specialty Chief Compressor Station Engineer 06/04/24 Kenya Jennings MD 420 [facility] [address] [place], [place] 208645 Plastic Surgery 06/04/24 Herber Lopez MD 420 [facility] [address] [place], [place] 853565 Assigned Dermatology Provider 07/26/24 Сергей Dumont [facility] Room Service Attendant 08/13/24 Kenya Jennings MD [address] 968175 Assigned Surgical Provider 08/26/24 Jesse Arvizu MD [address] [place], [place] 201126 Assigned Behavioral Health Provider 08/26/24 09/24/24 documented as of this encounter
--- OUTSIDE RECORDS SUMMARY | 2024-09-22 11:00 | XMS_ITS | Encounter Summary ---
Author Organization [facility] Address [address] [place] [address] Care Team Providers Care Tire Trimmer Hand Name Role Phone Cindy Ruiz Unavailable [phone] Trevor Espino MD Unavailable [phone] Jaci Whitlock APRN FLAT SHEET MAKER Unavailable + Doris Ricci MD Unavailable Yudy Pompa MD Unavailable [phone] Mary Carmen Rodriguez MD Unavailable + Herber Lopez MD Unavailable [phone] Gloria Elizalde MD Unavailable [phone] Mamadou Bowie MD Primary Care Provider [phone] Mamadou Bowie MD Unavailable Makenzie Romano MD Unavailable [phone] Shani Stephenson MD Unavailable [phone] Ita Newton Unavailable Unavailable Kenya Jennings MD Unavailable [phone] Herber Lopez MD Unavailable [phone] Сергей Dumont [facility] Unavailable Unavailable Kenya Jennings MD Unavailable [phone] Jesse Arvizu MD Unavailable Encounter Details Date Type Department Care Team (Late st Contact Info) Description 09/22/2024 11:00 AM CDT [facility] [address] [place] [address] Severe episode of recurrent major [...] relatives? Three times a week 04/02/2024 Attends Shinto Services Not on file 04/02 Active Member of Clubs or Organizations Not on f ile 04/02/2024 Attends Club or Organization Meetings Not on jd e 04/02/2024 Marital Status Not on file 04/02/2024 PHQ-2 Answer Date Recorded PHQ-2 Score 3 09/23/2024 [facility] of Occupat ional Health - Occupational Stress [...] in an abandoned building, in an overnight jail, or couch-surfing.) Yes 04/03/2024 Are you worried [...] PM CDT Legal Sex Female 3:58 AM OYSTER WORKER Gender Identity other 11/14/2020 10:33 PM CDT Sexual Orientation Lesbian 06/22/2019 4: 20 AM OYSTER WORKER documented as of this encounter Progress Notes * Brittnee Kiser - 09/22/2024 11:00 AM CDT Images from the original note were not included. Interventional Psychiatry Program [address] [place] [address] [place], [address] [place] [address] TMS Procedure Note Gabriela Kraus Age: [age] year old Date of : 1965 Gabriela Kraus comes into clinic today at the request of, Jesse Arvizu MD, ordering provider for TMS treatments. Pre-Procedure: History and Physical: Reviewed in medical record Consent signed by: Gabriela Kraus for this course of treatment on: 09/02/2024 Clinical Narrative: Patient tolerated treatment. No changes reported. Indications for TMS: MDD, recurrent, severe; 4+ medication trials (from 2+ classes) ineffective; Psychotherapy ineffective Procedure Diagnosis: MDD, severe, recurrent F33.2 Treatment Hx: Treatment number this series: 15 Total lifetime treatment number: 15 Allergies Allergen Reactions Adhesive Tape Rash Sulfa Antibiotics Rash LMP (LMP Unknown) Pause for the Cause Right patient: Yes Right procedure/correct coil: Yes; rTMS; cpt 71918; H1 coil. Earplugs in place: Yes Procedure [...] Mccartney MD, who was available if needed. Brittnee Kiser TMS Supervisor [employer] [facility] Neuromodulation documented in this encounter Plan of Treatment Upcoming Encounters Date Type Department Care Team (Latest Contact Info) Description 10/29/2024 11:00 AM CDT Virtual Visit [facility] Psychiatry Clinic [address] [facility] [address] [place] [address] 11/23/2024 1:30 PM CDT Office Visit [facility] Mental Health & Addiction [place] [phone] [phone] Melanie Boykin MD [address] [place], [place] [address] Gloria Elizalde MD [address] [place] [address] [phone] 12/03/2024 3:00 PM CDT [facility] [address] [facility] [address] [place] [phone] Jesse Arvizu MD [address] [place], [place] 349736 12/15/2024 11:40 AM CDT Ancillary Procedure [facility] Imaging Center CT Clinic [address] [place] [phone] Yudy Pompa MD [address] [place] [address] 018195 12/22/2024 11:40 AM CDT Oncology Visit [facility] [address] [place] [phone] Yudy Pompa MD [address] [place] [address] [phone] 02/22/2025 12:30 PM CDT Office Visit [facility] Plastic and Reconstructive Surgery Clinic [address] [place] [phone] Kenya Jennings MD [address] [place] [address] [phone] 03/12/2025 1:00 PM OYSTER WORKER Office Visit [facility] Internal Medicine [address] [place] [address] Mamadou Bowie MD [address] [place] [address] [phone] 03/23/2025 8:00 AM OYSTER WORKER Hospital Encounter [facility] Per[facility]Op [facility] [address] [place] [phone] Kenya Jennings MD [address] [place] [address] 155885 03/23/2025 8:00 AM OYSTER WORKER - 03/23/2025 12:05 PM OYSTER WORKER Surgery [facility] [address] [place] [phone] Kenya Jennings MD [address] [place] [address] [phone] MASTECTOMY, BILATERAL, SIMPLE, NO nipple grafts. OnQ 03/30/2025 10:00 AM OYSTER WORKER Office Visit [facility] Plastic and Reconstructive Surgery Clinic [address] [phone] Lynn Parks APRN [address] [address] 04/16/2025 1:00 PM OYSTER WORKER Office Visit [facility] Internal Medicine [address] [phone] Mamadou Bowie MD [address] [place] [address] 864235 05/03/2025 4:00 PM OYSTER WORKER Office Visit [facility] Plastic and Reconstructive Surgery Clinic [address] [phone] Kenya Jennings MD [address] [place] [address] [phone] 08/17/2025 12:15 PM CDT Office Visit [facility] Dermatology Clinic [place] 909 [facility] 3rd [place] [address] Herber Lopez MD 420 [facility] 98 [place] [address] Scheduled Procedures Name Priority Associated Diagnoses Date/Ti me MASTECTOMY, BILATERAL, FOR GENDER AFFIRMATION Gender dysphoria in adult 03/23/2025 8:00 AM OYSTER WORKER documented as of this encounter Goals Goal Patient Goal Type Associated Problems Recent Progress Patient-Stated? Author MYC ECC SURG ENROLL Care Plan MyC ECC SURG ENROLL No Fina Benjamin documented as of this encounter Procedures Procedure Name Priority Date/Time Associated Diagnosis Comments IL TRANSCRANIAL MAGNETIC STIMULATION TREATMENT,DELIVERY/MANAG EMENT Routine 09/22/2024 11:08 AM CDT Severe episode of recurrent major depressive disorder, without psychotic features (H) documented in this encounter Visit Diagnoses Diagnosis Severe episode of recurrent major depressive disorder, without psychotic features (H)- Primary Gender dysphoria in adult documented in this encounter Additional Health Concerns Active Problems Noted Date Diagnosed Date MyC ECC SURG ENROLL 09/11/2024 Assessment Noted Time PHQ-9 Depression Total Score: 8 09/23/19 25 11:08 AM CDT documented as of this encounter Care Teams Tire Trimmer Hand Relationship Specialty Start Date End Date Mamadou Bowie MD [address] [place] [address] PCP - General 03/18/23 Cindy Ruiz [facility] [place] [address] [place] [address] Resident Internal Medicine 12/07/14 Trevor Espino MD [address] [place] [address] Urology 05/16/16 Jaci Whitlock APRN FLAT SHEET MAKER 420 [facility] 395 [place], [place] 544125 Nurse Practitioner - Women's Health 12/14/16 Doris Ricci MD [facility] [address] [place] [address] Physician Internal Medicine 07/11/20 Yudy Pompa MD 909 [place], [place] [phone] Assigned Cancer Care Provider 08/21/20 Mary Carmen Rodriguez MD 420 [facility] 98 [place], [place] [phone] Dermatology 11/09/20 Herber Lopez MD 420 [facility] 98 [place], [place] 359135 Dermapathology 11/09/20 Gloria Elizalde MD 420 [place] [employer], [place] 386415 Resident 12/24/22 Mamadou Bowie MD [address] [place] [address] 815395 Assigned PCP 03/23/23 Makenzie Romano MD [address] [place] [address] 878704 insurance office manager & Neurology - Child & Adolescent Psychiatry 11/08/23 Shani Stephenson MD [address] [place] [address] Resident Psychiatry 11/08/23 Ita Newton Specialty Client Relations Specialist 06/04/24 Kenya Jennings MD [address] [place] [address] 195 [place] [address] Plastic Surgery 06/04/24 Herber Lopez MD [address] [place] [address] 98 [place] [address] Assigned Dermatology Provider 07/26/24 Сергей Dumont, [facility] Contact Lens Assistant 08/13/24 Kenya Jennings MD [address] [place] [address] Assigned Surgical Provider 08/26/24 Jesse Arvizu MD [address] [place] [address] Assigned Behavioral Health Provider 08/26/24 09/24/24 documented as of this encounter
--- OUTSIDE RECORDS SUMMARY | 2024-09-23 11:00 | XMS_ITS | Encounter Summary ---
Author Organization [place] Address [address] [place] [address] Care Team Providers Care Agency Recruiter Name Role Phone Cindy Ruiz Unavailable [phone] Trevor Espino MD Unavailable [phone] Jaci Whitlock APRN SANDBLASTER GLASS Unavailable + Doris Ricci MD Unavailable Yudy Pompa MD Unavailable [phone] Mary Carmen Rodriguez MD Unavailable + Herber Lopez MD Unavailable [phone] Gloria Elizalde MD Unavailable [phone] Mamadou Bowie MD Primary Care Provider [phone] Mamadou Bowie MD Unavailable Makenzie Romano MD Unavailable [phone] Shani Stephenson MD Unavailable [phone] Ita Newton Unavailable Unavailable Kenya Jennings MD Unavailable [phone] Herber Lopez MD Unavailable [phone] Сергей Dumont [facility] Unavailable Unavailable Kenya Jennings MD Unavailable [phone] Jesse Arvizu MD Unavailable Encounter Details Date Type Department Care Team (Late st Contact Info) Description 09/23/2024 11:00 AM CDT [facility] [address] [place] [address] Severe episode of recurrent [...] relatives? Three times a week 04/02/2024 Attends Tenriism Services Not on file 04/02 Active Member of Clubs or Organizations Not on f ile 04/02/2024 Attends Club or Organization Meetings Not on jd e 04/02/2024 Marital Status Not on file 04/02/2024 PHQ-2 Answer Date Recorded PHQ-2 Score 3 09/24/2024 [facility] - Occupational [...] in an abandoned building, in an overnight mcfp, or couch-surfing.) Yes 04/03/2024 Are you worried [...] PM CDT Legal Sex Female 3:58 AM END POLISHER Gender Identity other 11/14/2020 10:33 PM CDT Sexual Orientation Lesbian 06/22/2019 4: 20 AM END POLISHER documented as of this encounter Progress Notes * Verónica Escobar - 09/23/2024 11:00 AM CDT Images from the original note were not included. Interventional Psychiatry Program [address] [place] [address], [address] [place] [address] TMS Procedure Note Gabriela Kraus Age: [age] year old Date of : 1965 Gabriela Kraus comes into clinic today at the request of, Jesse Arvizu MD, ordering provider for TMS treatments. Pre-Procedure: History and Physical: Reviewed in medical record Consent signed by: Gabriela Kraus for this course of treatment on: 09/02/2024 Clinical Narrative: Patient tolerated treatment. Doing good today, friend drove them up for the appointment. Indications for TMS: MDD, recurrent, severe; 4+ medication trials (from 2+ classes) ineffective; Psychotherapy ineffective Procedure Diagnosis: MDD, severe, recurrent F33.2 Treatment Hx: Treatment number this series: 16 Total lifetime treatment number: 16 Allergies Allergen Reactions Adhesive Tape Rash Sulfa Antibiotics Rash LMP (LMP Unknown) Pause for the Cause Right patient: Yes Right procedure/correct coil: Yes; rTMS; cpt 44434; H1 coil. Earplugs in place: Yes Procedure [...] Energy: 61% (120%MT) Trains: 55 *USE SPACER* 09/21/2024 8:58 AM 09/22/2024 11:07 AM 09/23/2024 9:32 AM PHQ-9 SCORE PHQ-9 Total Score MyChart 8 (Mild depression) 8 (Mild depression) PHQ-9 Total Score 8 8 8 Patient-reported Date MADRS QIDS PHQ-9 09/02/24 19 13 11 09/11/24 12 12 09/18/24 12 10 Plan - Continue TMS treatments This service provided today was under the supervising provider of the day, Jesse Arvizu MD, who was available if needed. Verónica Escobar TMS Scanning Coordinator [facility] Neuromodulation documented in this encounter Plan of Treatment Upcoming Encounters Date Type Department Care Team (Latest Contact Info) Description 10/29/2024 11:00 AM CDT Virtual Visit [facility] Psychiatry [facility] [address] [facility] [address] [place] [address] 11/23/2024 1:30 PM CDT Office Visit [facility] Mental Health & Addiction [address] [phone] Melanie Boykin MD 0160 [place], [place] 2[address] Gloria Elizalde MD [address] [place] [address] 812785 12/03/2024 3:00 PM CDT [facility] [address] [facility] 255 [place] [phone] Jesse Arvizu MD 5775 [place] [address] 12/15/2024 11:40 AM CDT Ancillary Procedure [facility] Imaging [facility] Clinic [address] [place] [phone] Yudy Pompa MD [address] [place] [address] 833365 12/22/2024 11:40 AM CDT Oncology Visit [facility] [address] [place] [phone] Yudy Pompa MD [address] [place] [address] 346765 02/22/2025 12:30 PM CDT Office Visit [facility] Plastic and Reconstructive Surgery Clinic [address] [place] [phone] Kenya Jennings MD [address] [place] [address] 166295 03/12/2025 1:00 PM END POLISHER Office Visit [facility] Internal Medicine [place] [address] [phone] Mamadou Bowie MD [address] [place] [address] 03/23/2025 8:00 AM END POLISHER Hospital Encounter [facility] PeriOp Services [address] [place] [address] [phone] Kenya Jennings MD [address] [place] [address] 03/23/2025 8:00 AM END POLISHER - 03/23/2025 12:05 PM END POLISHER Surgery [facility] [address] [place] [address] [phone] Kenya Jennings MD [address] [place] [address] 440655 MASTECTOMY, BILATERAL, SIMPLE, NO nipple grafts. OnQ 03/30/2025 10:00 AM END POLISHER Office Visit [facility]astic [facility] Reconstructive [facility] Clinic [address] [phone] Lynn Parks APRN [address] [address] 04/16/2025 1:00 PM END POLISHER Office Visit [facility] Internal Medicine [address] [phone] Mamadou Bowie MD [address] [place] [address] 05/03/2025 4:00 PM END POLISHER Office Visit [facility]astic [facility] Reconstructive Surgery [facility] [address] [phone] Kenya Jennings MD [address] [place] [address] 08/17/2025 12:15 PM CDT Office Visit [facility] Dermatology Clinic [place] 909 [facility] 3rd [place] [address] Herber Lopez MD [address] [facility] [address] [place], [place] 77[address] Scheduled Procedures Name Priority Associated Diagnoses Date/Ti me MASTECTOMY, BILATERAL, FOR GENDER AFFIRMATION Gender dysphoria in adult 03/23/2025 8:00 AM END POLISHER documented as of this encounter Goals Goal Patient Goal Type Associated Problems Recent Progress Patient-Stated? Author MYC ECC SURG ENROLL Care Plan MyC ECC SURG ENROLL No Fina Benjamin documented as of this encounter Procedures Procedure Name Priority Date/Time Associated Diagnosis Comments LA TRANSCRANIAL MAGNETIC STIMULATION TREATMENT,DELIVERY/MANAG EMENT Routine 09/23/2024 11:08 AM CDT Severe episode of recurrent major depressive disorder, without psychotic features (H) documented in this encounter Visit Diagnoses Diagnosis Severe episode of recurrent major depressive disorder, without psychotic features (H)- Primary Gender dysphoria in adult documented in this encounter Additional Health Concerns Active Problems Noted Date Diagnosed Date MyC ECC SURG ENROLL 09/11/2024 Assessment Noted Time PHQ-9 Depression Total Score: 8 09/24/19 25 9:32 AM CDT documented as of this encounter Care Teams Agency Recruiter Relationship Specialty Start Date End Date Mamadou Bowie MD [address] [place] [address] [phone] PCP - General 03/18/23 Cindy Ruiz [place], [place] [phone] Resident Internal Medicine 12/07/14 Trevor Espino MD [address] [place] [address] 345045 Urology 05/16/16 Jaci Whitlock APRN SANDBLASTER GLASS [address] [facility] 395 [place], [place] 971575 Nurse Practitioner - Women's Health 12/14/16 Doris Ricci MD [facility] & [address] [address] Physician Internal Medicine 07/11/20 Yudy Pompa MD [address] [place] [address] 177895 Assigned Cancer Care Provider 08/21/20 Mary Carmen Rodriguez MD 420 [facility] 98 [place], [place] 061385 Dermatology 11/09/20 Herber Lopez MD [address] [facility] 98 [place], [place] 0[address] Dermapathology 11/09/20 Gloria Elizalde MD 420 [place], [place] 686265 Resident 12/24/22 Mamadou Bowie MD [address] [place] [address] [phone] Assigned PCP 03/23/23 Makenzie Romano MD [address] [place] [address] content curator & Neurology - Child & Adolescent Psychiatry 11/08/23 Shani Stephenson MD 420 [place], [place] 850355 Resident Psychiatry 11/08/23 Ita Newton Specialty Centerless Grinding Machine Adjuster 06/04/24 Kenya Jennings MD 420 [facility] 195 [place], [place] 230585 Plastic Surgery 06/04/24 Herber Lopez MD [address] [facility] 98 [place], [place] 06[address] Assigned Dermatology Provider 07/26/24 Сергей Dumont [facility] Pediatric Allergist 08/13/24 Kenya Jennings MD [address] [phone] Assigned Surgical Provider 08/26/24 Jesse Arvizu MD 5775 [place], [place] 586926 Assigned Behavioral Health Provider 08/26/24 09/24/24 documented as of this encounter
--- OUTSIDE RECORDS SUMMARY | 2024-09-24 11:00 | XMS_ITS | Encounter Summary ---
Author Organization [place] Address [address] [place] [address] Care Team Providers Care Conceptor Name Role Phone Cindy Ruiz Unavailable Trevor Espino MD Unavailable [phone] Jaci Whitlock APRN LEVEL VIAL SETTER Unavailable + Doris Ricci MD Unavailable Yudy Pompa MD Unavailable [phone] Mary Carmen Rodriguez MD Unavailable + Herber oLpez MD Unavailable [phone] Gloria Elizalde MD Unavailable [phone] Mamadou Bowie MD Primary Care Provider [phone] Mamadou Bowie MD Unavailable Makenzie Romano MD Unavailable [phone] Shani Stephenson MD Unavailable [phone] Ita Newton Unavailable Unavailable Kenya Jennings MD Unavailable [phone] Hreber Lopez MD Unavailable [phone] Сергей Dumont [facility] Unavailable Unavailable Kenya Jennings MD Unavailable [phone] Jesse Arvizu MD Unavailable Encounter Details Date Type Department Care Team (Late st Contact Info) Description 09/24/2024 11:00 AM CDT [facility] [address] [place] [address] Severe episode of recurrent major [...] relatives? Three times a week 04/02/2024 Attends Baptism Services Not on file 04/02 Active Member of Clubs or Organizations Not on f ile 04/02/2024 Attends Club or Organization Meetings Not on jd e 04/02/2024 Marital Status Not on file 04/02/2024 PHQ-2 Answer Date Recorded PHQ-2 Score 2 09/25/2024 [facility] Occupat ional Health - [...] PM CDT Legal Sex Female 3:58 AM MEDIA MARKETING MANAGER Gender Identity other 11/14/2020 10:33 PM CDT Sexual Orientation Lesbian 06/22/2019 4: 20 AM MEDIA MARKETING MANAGER documented as of this encounter Progress Notes * Chapis Branch - 09/24/2024 11:00 AM CDT Images from the original note were not included. Interventional Psychiatry Program [address] [place] [address], [address] [place] [address] TMS Procedure Note Gabriela Kraus Age: [age] year old Date of : 1965 Gabriela Kraus comes into clinic today at the request of, Jesse Arvizu MD, ordering provider for TMS treatments. Pre-Procedure: History and Physical: Reviewed in medical record Consent signed by: Gabriela Kraus for this course of treatment on: 09/02/2024 Clinical Narrative: Patient tolerated treatment. Nurse visit. Indications for TMS: MDD, recurrent, severe; 4+ medication trials (from 2+ classes) ineffective; Psychotherapy ineffective Procedure Diagnosis: MDD, severe, recurrent F33.2 Treatment Hx: Treatment number this series: 17 Total lifetime treatment number: 17 Allergies Allergen Reactions Adhesive Tape Rash Sulfa Antibiotics Rash LMP (LMP Unknown) Pause for the Cause Right patient: Yes Right procedure/correct coil: Yes; rTMS; cpt 43015; H1 coil. Earplugs in place: Yes Procedure [...] Energy: 61% (120%MT) Trains: 55 *USE SPACER* 09/22/2024 11:07 AM 09/23/2024 9:32 AM 09/24/2024 11:04 AM PHQ-9 SCORE PHQ-9 Total Score MyChart 8 (Mild depression) PHQ-9 Total Score 8 8 7 Patient-reported Date MADRS QIDS PHQ-9 09/02/24 19 13 11 09/11/24 12 12 09/18/24 12 10 Plan - Continue TMS treatments This service provided today was under the supervising provider of the fritz, Zakiya Ng MD, whowas available if needed. Chapis Branch TMS Tissue Inserter [facility] Neuromodulation documented in this encounter Plan of Treatment Upcoming Encounters Date Type Department Care Team (Latest Contact Info) Description 10/29/2024 11:00 AM CDT Virtual Visit [facility] Psychiatry Clinic [address] [facility] [address] [place] [address] 11/23/2024 1:30 PM CDT Office Visit [facility] Mental Health & Addiction [address] F[address] [phone] Melanie Boykin MD 2050 [place], [place] 2911[address] Gloria Elizalde MD [address] [place] [address] [phone] 12/03/2024 3:00 PM CDT [facility] [address] [facility] [address] [place] [phone] Jesse Arvizu MD [address] [place], [place] [address]756 12/15/2024 11:40 AM CDT Ancillary Procedure [facility] Imaging Center CT Clinic [address] [place] [phone] Yudy Pompa MD [address] [place] [address] 418195 12/22/2024 11:40 AM CDT Oncology Visit [facility] [address] [place] [phone] Yudy Pompa MD [address] [place] [address] [phone] 02/22/2025 12:30 PM CDT Office Visit [facility] Plastic and Reconstructive Surgery Clinic [address] [place] [phone] Kenya Jennings MD [address] [place] [address] 993625 03/12/2025 1:00 PM MEDIA MARKETING MANAGER Office Visit [facility] Internal Medicine [address] [place] [address] Mamadou Bowie MD [address] [place] [address] 542695 03/23/2025 8:00 AM MEDIA MARKETING MANAGER Hospital Encounter [facility] PeriOp Services [address] [place] [address] [phone] Kenya Jennings MD [address] [place] [address] 746265 03/23/2025 8:00 AM MEDIA MARKETING MANAGER - 03/23/2025 12:05 PM MEDIA MARKETING MANAGER Surgery [facility] [address] [place] [address] [phone] Kenya Jennings MD [address] [place] [address] 176525 MASTECTOMY, BILATERAL, SIMPLE, NO nipple grafts. OnQ 03/30/2025 10:00 AM MEDIA MARKETING MANAGER Office Visit [facility] [address] [phone] Lynn Parks APRN [address] [address] 04/16/2025 1:00 PM MEDIA MARKETING MANAGER Office Visit [facility] Internal Medicine [address] [phone] Mamadou Bowie MD [address] [place] [address] 450635 05/03/2025 4:00 PM MEDIA MARKETING MANAGER Office Visit [facility] [address] [phone] Kenya Jennings MD [address] [place] [address] [phone] 08/17/2025 12:15 PM CDT Office Visit [facility] D[facility]atology [facility] [place] 9[address] [facility] 3rd [place] [address] Herber Lopez MD [address] [facility] [address] [place] [address] Scheduled Procedures Name Priority Associated Diagnoses Date/Ti me MASTECTOMY, BILATERAL, FOR GENDER AFFIRMATION Gender dysphoria in adult 03/23/2025 8:00 AM MEDIA MARKETING MANAGER documented as of this encounter Goals Goal Patient Goal Type Associated Problems Recent Progress Patient-Stated? Author MYC ECC SURG ENROLL Care Plan MyC ECC SURG ENROLL No Fina Benjamin documented as of this encounter Procedures Procedure Name Priority Date/Time Associated Diagnosis Comments [place] TRANSCRANIAL MAGNETIC STIMULATION TREATMENT,DELIVERY/MANAG EMENT Routine 09/24/2024 11:06 AM CDT Severe episode of recurrent major depressive disorder, without psychotic features (H) documented in this encounter Visit Diagnoses Diagnosis Severe episode of recurrent major depressive disorder, without psychotic features (H)- Primary Gender dysphoria in adult documented in this encounter Additional Health Concerns Active Problems Noted Date Diagnosed Date MyC ECC SURG ENROLL 09/11/2024 Assessment Noted Time PHQ-9 Depression Total Score: 7 09/25/19 25 11:04 AM CDT documented as of this encounter Care Teams Conceptor Relationship Specialty Start Date End Date Mamadou Bowie MD [address] [place] [address] PCP - General 03/18/23 Cindy Ruiz [facility] [address] [place] [address] Resident Internal Medicine 12/07/14 Trevor Espino MD [address] [place] [address] Urology 05/16/16 Jaci Whitlock APRN LEVEL VIAL SETTER [address] [facility] 395 [place], [place] 6[address] Nurse Practitioner - Women's Health 12/14/16 Doris Ricci MD [facility] [address] [place] [address] Physician Internal Medicine 07/11/20 Yudy Pompa MD [address] [place] [address] [phone] Assigned Cancer Care Provider 08/21/20 Mary Carmen Rodriguez MD 420 [facility] 98 [place], [place] 179985 Dermatology 11/09/20 Herber Lopez MD [address] [facility] 98 [place], [place] [phone] Dermapathology 11/09/20 Gloria Elizalde MD 420 [place], [place] 903755 Resident 12/24/22 Mamadou Bowie MD [address] [place] [address] 894175 Assigned PCP 03/23/23 Makenzie Romano MD [address] [place] [address] [phone] horizontal boring mill operator & Neurology - Child & Adolescent Psychiatry 11/08/23 Shani Stephenson MD [address] [place] [address] Resident Psychiatry 11/08/23 Ita Newton Specialty Engagement Specialist 06/04/24 Kenya Jennings MD [address] [place] [address] 195 [place] [address] Plastic Surgery 06/04/24 Herber Lopez MD [address] [place] [address] 98 [place] [address] Assigned Dermatology Provider 07/26/24 Сергей Dumont [facility] Lamp Decorator 08/13/24 Kenya Jennings MD [address] [place] [address] 182185 Assigned Surgical Provider 08/26/24 Jesse Arvizu MD [address] [place] [address] Assigned Behavioral Health Provider 08/26/24 09/24/24 documented as of this encounter
--- OUTSIDE RECORDS SUMMARY | 2024-09-24 11:00 | XMS_ITS | Encounter Summary ---
Author Organization [facility] Address [address] [place] [address] Care Team Providers Care Marketing Administrative Assistant Name Role Phone Cindy Ruiz Unavailable [phone] Trevor Espino MD Unavailable [phone] Jaci Whitlock APRN [employer]INE [employer]EDER Unavailable + Doris Ricci MD Unavailable [phone] Yudy Pompa MD Unavailable [phone] Mary Carmen Rodriguez MD Unavailable + Herber Lopez MD Unavailable [phone] Gloria Elizalde MD Unavailable [phone] Mamadou Bowie MD Primary Care Provider [phone] Mamadou Bowie MD Unavailable Makenzie Romano MD Unavailable [phone] Shani Stephenson MD Unavailable [phone] Ita Newton Unavailable Unavailable Kenya Jennings MD Unavailable [phone] Herber Lopez MD Unavailable [phone] Сергей Dumont [facility] Unavailable Unavailable Kenya Jennings MD Unavailable [phone] Jesse Arvizu MD Unavailable Reason for Visit * Reason Comments Clinic Care Coordination - Face To Face 3 week TMS check in Encounter Details Date Type Department Care Team (Latest Contact Info) Description 09/24/2024 11:00 AM CDT Allied Health/Nurse Visit [facility] [address] [place] [address] Clinic Care Coordination - Face To Face (3... Social History Tobacco Use Types Packs/Day Years [...] relatives? Three times a week 04/02/2024 Attends [employer] Services Not on file 04/02 Active Member of Clubs or Organizations Not on f ile 04/02/2024 Attends Club or Organization Meetings Not on jd e 04/02/2024 Marital Status Not on file 04/02/2024 PHQ-2 Answer Date Recorded PHQ-2 Score 2 09/25/2024 [facility] - Occupational [...] in an abandoned building, in an overnight mcc, or couch-surfing.) Yes 04/03/2024 Are you worried [...] PM CDT Legal Sex Female 3:58 AM TOP COATER Gender Identity other 11/14/2020 10:33 PM CDT Sexual Orientation Lesbian 06/22/2019 4: 20 AM TOP COATER documented as of this encounter Progress Notes * Shellie Humphries RN - 09/24/2024 11:00 AM CDT Physicians: Care Coordination Note SITUATION Gabriela Kraus is a 59 year old person who has been receiving Transcranial Magnetic Stimulation (TMS)at the request of Jesse Arvizu MD. BACKGROUND During course of TMS ASSESSMENT Met with patient today to check on her during TMS course. During today's discussion junior underwriter and patient discussed: Patient reports that she has been experiencing fatigue with her TMS, but notes that it feels like ahealing type fatigue. Describes it almost as a fatigue one might feel after a surgery. She does note that it has gotten better and is not as intense as it was last week. In regards to benefit she hasbeen noticing little glimmers in motivation. States that in general she feels like her depression has been a heavy wet blanket that is extremely restricting, and now this with TMS she feels it is notas heavy and is not as restricting. She is hopeful that she will continue to get more benefit but has been happy thus far with the little glimmers she is getting. Encouraged patient to keep monitoring her symptoms and reach out should she have any questions prior to next check in. Patient verbalized understanding and did not have any further questions. PHQ 9: 7 # of completed TMS Sessions: 17 PLAN Nursing Interventions: Care Coordination Follow-up plan: RN to continue to follow Shellie Humphries RN documented in this encounter Plan of Treatment Upcoming Encounters Date Type Department Care Team (Latest Contact Info) Description 10/29/2024 11:00 AM CDT [facility] [address] [place] [phone] 11/23/2024 1:30 PM CDT Office Visit [facility] Mental Health & Addiction [place] [phone] [facility] [address] [phone] Melanie Boykin MD [address] [place] [address] [phone] Gloria Elizalde MD [address] [place], [place] [phone] 12/03/2024 3:00 PM CDT [facility] [address] [place] [address] [address] [place] [phone] Jesse Arvizu MD [address] [place] [address] 384956 12/15/2024 11:40 AM CDT Ancillary Procedure [facility] [address] [place] [address] [address] [place] [phone] Yudy Pompa MD [address] [place] [address] 12/22/2024 11:40 AM CDT Oncology Visit [facility] [address] [place] [address] [phone] Yudy Pompa MD [address] [place] [address] 02/22/2025 12:30 PM CDT Office Visit [facility] [address] [phone] Kenya Jennings MD [address] [place] [address] 03/12/2025 1:00 PM TOP COATER Office Visit [facility] Internal Medicine [address] [phone] Mamadou Bowie MD [address] [place] [address] 196325 03/23/2025 8:00 AM TOP COATER Hospital Encounter [facility] [address] [place] [address] [place] [phone] Kenya Jennings MD [address] [place] [address] 03/23/2025 8:00 AM TOP COATER - 03/23/2025 12:05 PM TOP COATER Surgery [facility] [address] [place] [address] [place] [phone] Kenya Jennings MD [address] [place] [address] MASTECTOMY, BILATERAL, SIMPLE, NO nipple grafts. OnQ 03/30/2025 10:00 AM TOP COATER Office Visit [facility] [address] [phone] Lynn Parks APRN [address] [address] 04/16/2025 1:00 PM TOP COATER Office Visit [facility] Internal Medicine [address] [phone] Mamadou Bowie MD [address] [place] [address] [phone] 05/03/2025 4:00 PM TOP COATER Office Visit [facility] [address] [phone] Kenya Jennings MD [address] [place] [address] 195 [place] [address] 08/17/2025 12:15 PM CDT Office Visit [facility] Dermatology Clinic [address] [place] [phone] Herber Lopez MD [address] [place] [address] 98 [place], [place] [phone] Scheduled Procedures Name Priority Associated Diagnoses Date/Ti me MASTECTOMY, BILATERAL, FOR GENDER AFFIRMATION Gender dysphoria in adult 03/23/2025 8:00 AM TOP COATER documented as of this encounter Goals Goal Patient Goal Type Associated Problems Recent Progress Patient-Stated? Author MYC ECC SURG ENROLL Care Plan MyC ECC SURG ENROLL No Fina Benjamin documented as of this encounter Visit Diagnoses Diagnosis Severe episode of recurrent major depressive disorder, without psychotic features (H)- Primary Gender dysphoria in adult documented in this encounter Additional Health Concerns Active Problems Noted Date Diagnosed Date MyC ECC SURG ENROLL 09/11/2024 Assessment Noted Time PHQ-9 Depression Total Score: 7 09/25/19 25 11:04 AM CDT documented as of this encounter Care Teams Marketing Administrative Assistant Relationship Specialty Start Date End Date Mamadou Bowie MD [address] [place] [address] [phone] PCP - General 03/18/23 Cindy Ruiz [address] [place], [place] [phone] Resident Internal Medicine 12/07/14 Trevor Espino MD [address] [place] [address] [phone] Urology 05/16/16 Jaci Whitlock APRN [employer]ACHINE [employer]EDER [address] [place] [address] [phone] Nurse Practitioner - Women's Health 12/14/16 Doris Ricci MD [facility] [address] [address] Physician Internal Medicine 07/11/20 Yudy Pompa MD [address] [place] [address] [phone] Assigned Cancer Care Provider 08/21/20 Mary Carmen Rodriguez MD [address] [place] [address] [phone] Dermatology 11/09/20 Herber Lopez MD [address] [place] [address] [phone] Dermapathology 11/09/20 Gloria Elizalde MD [address] [place], [place] 648385 Resident 12/24/22 Mamdaou Bowie MD [address] [place], [place] 078355 Assigned PCP 03/23/23 Makenzie Romano MD [address] [phone] on site coordinator & Neurology - Child & Adolescent Psychiatry 11/08/23 Shani Stephenson MD [address] [place] [address] [phone] Resident Psychiatry 11/08/23 Ita Newton Special[facility] Central Office Supervisor 06/04/24 Kenya Jennings MD [address] [place] [address] Plastic Surgery 06/04/24 Herber Lopez MD [address] [place] [address] [phone] Assigned Dermatology Provider 07/26/24 Сергей Dumont [facility] [employer] Combination Teacher 08/13/24 Kenya Jennings MD [address] [place] [address] [phone] Assigned Surgical Provider 08/26/24 Jesse Arvizu MD [address] [place], [place] 749346 Assigned Behavioral Health Provider 08/26/24 09/24/24 documented as of this encounter
--- OUTSIDE RECORDS SUMMARY | 2024-09-24 11:15 | XMS_ITS | Encounter Summary ---
Author Organization [facility] Address [address] [place] [address] Care Team Providers Care Produce Sorter Name Role Phone Cindy Ruiz Unavailable [phone] Trevor Espino MD Unavailable [phone] Jaci Whitlock APRN SURVEILLANCE DIRECTOR Unavailable + Doris Ricci MD Unavailable [phone] Yudy Pompa MD Unavailable [phone] Mary Carmen Rodriguez MD Unavailable + Herber Lopez MD Unavailable [phone] Gloria Elizalde MD Unavailable [phone] Mamadou Bowie MD Primary Care Provider [phone] Mamadou Bowie MD Unavailable Makenzie Romano MD Unavailable [phone] Shani Stephenson MD Unavailable [phone] Ita Newton Unavailable Unavailable Kenya Jennings MD Unavailable [phone] Herber Lopez MD Unavailable [phone] Сергей Dumont [facility] Unavailable Unavailable Kenya Jennings MD Unavailable [phone] Jesse Arvizu MD Unavailable Reason for Visit * Reason Comments Follow Up Encounter Details Date Type Department Care Team (Late st Contact Info) Description 09/24/2024 11:15 AM CDT Office Visit [facility] [address] [place] [address] Racheal Ng MD [address] [facility] [address] [place] [address] 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) (Primary Dx); Severe episode of recurrent major depressive disorder, without psychotic features (H); Generalized anxiety disorder; PTSD (post-traumatic stress disorder); Anxiety Social History Tobacco Use Types Packs/Day Years Used Date Smoking Tobacco: Never Passive Smoke Exposure: Never Smokeless Tobacco: Never Tobacco Cessation:Counseling Given: Not Answered Alcohol Use Standard Drinks/Week Comments Not Currently 0 (1 standard drink = 0.6 oz pure alcohol) 1 drink every couple of weeks Social Connection and Isolation Panel [NHANES] A nswer Date Recorded Frequency of Communication with Friends and Fami ly Not on file 04/02/2024 How often do you get togethe r with friends or relatives? Three times a week 04/02/2024 Attends Sabianism Services Not on file 04/02 Active Member of Clubs or Organizations Not on f ile 04/02/2024 Attends Club or Organization Meetings Not on jd e 04/02/2024 Marital Status Not on file 04/02/2024 PHQ-2 Answer Date Recorded PHQ-2 Score 3 10/01/2024 [facility] Occupational Stress Questionnaire Answer [...] Answer Date Recorded Do you have housing? 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 Here is some information around starting the medication, medicatons to avoid, and medications that are safe. Directions for starting Parnate: Day 1: 10 mg QAM x 3 days Day 4: 10 mg QAM and 10 mg Qnoon x 3 days Day 7: 20 mg QAM and 10 mg Qnoon x 3 days Day 10: 20 mg QAM and 20 mg Qnoon *If total dose is above 30 mg, keep the dose split Please call in and report BP until titrated to dose Continue on 40 mg daily until next seen. Side Effects Possible side effects of Parnate are agitation, anxiety, constipation, diarrhea, dizziness, headache, impotence, sleep problems, loss of appetite, fady, nausea, orthostasis (lightheadedness), sleepiness, weight gain, dry mouth Lightheadedness & Risk of Falls MAOIs, such as Parnate, can be associated with low blood pressure (hypotension) and risk of syncope/falling. For this reason, use caution when standing up after sitting or when standing up from lyingdown. If you have difficulty with this you can try staying well-hydrated, increasing salt in your diet, or an abdominal binder / thigh-high CLARK stockings. Diet You will need to adhere to a tyramine-restricted diet. We will provide you with a hand-out on diet. If you accidentally eat something on the diet or take a medication with serotonergic activity (for example, an antidepressant, stimulant, pain medication such as Tramadol, etc.) you could be at risk of a hypertensive crisis. Hypertensive Crisis A hypertensive crisis is a severe increase in blood pressure that can lead to a stroke or other organ damage. Signs and symptoms of a hypertensive crisis that may be life-threatening may include: - Severe chest pain - Severe headache, accompanied by confusion and/or blurred vision - Nausea and vomiting - Severe anxiety - Shortness of breath - Seizures - Unresponsiveness If you develop any of these symptoms, you should take 10 mg hydralazine at immediate onset of symptoms and go to the ED. Please inform any of your other medical providers that you are taking a MAOI so that they can avoidprescribing medications that are contraindicated. Drug interactions with an MAOI There are two kinds of drug interactons to be avoided when taking an MAOI: 1) Serotonin syndrome, caused by SRI (serotonin reuptake inhibitors) + MAOI 2) Blood pressure elevation, caused by tyramine in food or by other serotonin releasers + MAOIs For (1), drugs that are contraindicated include the following: SSRIs: Sertraline (Zoloft), fluoxetine (Prozac), paroxetine (Paxil), fluvoxamine (Luvox), citalopram (Celexa), escitalopram (Lexapro) Tricyclic antidepressants: clomipramine, imipramine SNRIs (serotonin norepinephrine reuptake inhibitors): venlfaxine (Effexor), desvenlafaxine (Pristiq), duloxetine (Cymbalta), milnacipran (Savella), levomilnacipran (Fetzima) Analgesics: meperidine (pethidine, Demerol), tramadol (Ultram), fentanyl, tapentadol (Nucynta) Antibiotics: linezolid Other: dextromethorphan (a cough suppressant found in OTC Robitussin, Delsym, etc.), pentazocine (analgesic), methylene blue For (2), drugs that are contraindicated include: Amphetamine and derivatives (Adderall, Dexedrine, Vyvanse, Modafinil) Drugs that DO NOT have interactions with MAOIs: Mirtazapine (Remeron), trazodone (Desyrel), tryptans for migraine [e.g., Imitrex (sumatriptan), Maxalt (rizatriptan), Zomig (zolmitriptan)] Medications safe to use with MAOIs (i.e. without significant SRI potency) Mirtazapine, mianserin, doxepin, trazodone, nefazodone, buspirone, bupropion, reboxetine, atomoxetine, amoxapine, agomelatine, tianeptine. Lurasidone, quetiapine, aripiprazole, olanzapine, asenapine, and other neuroleptics. Methylphenidate (it is not a 5-HT releaser or uptake inhibitor) [place], carbamezepine, valproate, lamotrigine. L-tryptophan (start low viz. 1 gram) Low Tyramine Diet What is tyramine? Tyramine is a naturally occurring substance that is present in certain foods. Some foods contain greater amounts of tyramine than others. For instance, foods that have been aged, matured, fermented, pickled, smoked or that are past the ???best before?? or ???use by?? date. For most people, the body is able to process tyramine and there is no harm in eating tyramine containing foods. Why do I need a low tyramine diet? A low tyramine diet is needed if you are taking certain types of Monoamine Oxidase Inhibitor (MAOI)medications, usually used for depression, anxiety, or Parkinson's disease. For example: Nardil (phenelzine) Parnate (tranylcypromine) Marplan (isocarboxazid) Eldepryl or Emsam (selegiline) When taking these medications your body cannot process tyramine very well. This puts you at risk ofincreased blood pressure. What are the effects of high tyramine levels? High levels of tyramine in the body can lead to an increase in your blood pressure. This is an immediate effect of consuming tyramine in large quantities and can cause unpleasant symptoms lasting a couple of hours. As this can be a serious health problem, you may need to seek urgent medical advice. Signs and symptoms Severe headache Increasing chest pain Increasing shortness of breath The degree of symptoms is related to the amount of tyramine you have. Higher levels will lead to more symptoms. Avoiding foods and fluids that have very high tyramine levels will stop these effects whilst taking these medications. Important points Start on the low tyramine diet on the same day as starting your medication. Continue this diet while taking this medication and for 14 days after the medication is stopped (unless advised by your Doctor or Pharmacist). Watch for signs and symptoms of a reaction. If you have any symptoms seek urgent medical help. As MAOI medications may interact with other medications, always tell all of your Doctors that you are taking this medicine. How to follow a low tyramine diet Avoid overripe, leftover/spoiled foods and foods past their ???best before?? or ???use by?? date. Ensure proper handling, storage and refrigeration of protein rich foods (e.g. meat, poultry, fish, eggs, and dairy products). Eat frozen and canned food immediately after opening or cooking. Eat leftovers within 48 hours or freeze them. Levels of tyramine in food vary. It depends on the way the food was made, stored and aged. Avoid foods that have been aged, matured, fermented, pickled or smoked or that are past their shelf life or ???off???. Use the table provided on the next page as a guide to which foods are usually low in tyramine. If you have an unpleasant reaction after taking any food or drink, stop taking that food or drink and speak with your Doctor. Limit your intake of caffeine (e.g. coffee, tea, cola, energy drinks and chocolate/chocolate drinks). This may cause a migraine-like headache. Alcohol When alcohol is consumed on an empty stomach, tyramine is absorbed quickly and may cause unpleasantsymptoms. If you do consume alcohol, ensure that you have had something to eat first. Limit intake to no more than 2 standard drinks per day, or as advised by your Doctor. One standard alcoholic drink is equal to: 12 oz can/bottle of mid-strength beer 4 oz (1 small glass) of wine 1 oz (1 standard shot) of spirits Use the table provided as a guide to which alcoholic beverages are usually low in tyramine. The table below outlines which foods you should choose or avoid when following a Low Tyramine diet.This list is non-exhaustive. Each person may have a different reaction to tyramine when taking these medications. Foods marked with an asterisk (*) might be tolerated in small amounts. Please see your Dietitian or Doctor if you have any questions or for individual advice. FOOD GROUP INCLUDE AVOID Meat & Meat Alternatives All fresh meat, fish, or poultry Processed meat (e.g., cooked ham) that has been stored and handled correctly Freshly cooked eggs Cooked beans, peas, and lentils Canned poultry and fish (eat these immediately after opening) Non-fermented tofu Ensure all meat and alternatives are properly stored and refrigerated Aged, dried, or pickled meats(e.g., mortadella, hard salami, pepperoni, jerky) Pickled or smoked fish Spoiled or improperly stored meat, poultry, or seafood (e.g., foods that have changed color or odor, or have become moldy) Tempeh or fermented tofu products Milk & Dairy Non-matured cheeses (e.g., cottage cheese, ricotta, cream cheese) Milk Yogurt Custard and ice cream Non-fermented soy products (e.g., soy milk, soy yogurt, soy cheese*) Some matured cheeses (e.g., cheddar, camembert, gouda, gruyere, parmesan, provolone, paulina cheese, aged feta, goat cheese*) Buttermilk Probiotics Unpasteurized milk Breads & Cereals All others Sourdough bread* Bread made with aged cheese, aged meat, or some artisan breads Fruits & Vegetables All other fresh, frozen, or canned fruit, vegetables, and legumes Fermentedor pickled vegetables (e.g., sauerkraut, kimchi) Overripe fruits Fats & Oils All None Spreads & Sauces Jam, homey Peanut butter Sweet chili sauce, satay sauce Mustards Tartare sauce, BBQ sauce Fresh gravy Salad dressings Soy sauce and any other soy based condiments (e.g., teriyaki, hoisin [up to 1 tsp]) Fish sauce Shrimp paste Protein supplements (that may contain yeast extract) Soups All other soups Miso Alcohol??? Domestic bottled or canned beer Red or white wine Fortified axel Spirits (e.g., rum, vodka, gin) Unpasteurized beer (e.g., boutique and artisan beers, beers with visible sediment) Tongan, Lao, , and beers Homemade beer and wine ??? When alcohol is consumed on an empty stomach, tyramine is absorbed quickly and may cause unpleasant symptoms. The amount of tyramine in beer can vary. Almost all modern bottle and draught beer is safe. However, some beers produced using non-standard fermentation processes can contain high amounts of tyramine. Adapted from Low Tyramine Diet, from the Nutritional Education Materials Online (DEMOND) Team produced by [facility], [place], [place]. https://www.health.qld.gov.au/__data/assets/pdf_file/0020/521314/oncol_maoi.pdf. documented in this encounter Progress Notes * Racheal Ng MD - 09/24/2024 11:15 AM CDT Images from the original note were not included. [facility] MEDICAL PROGRESS NOTE GCT3 CARE TEAM: PCP- Mamadou Bowie Therapist- Charo, [facility] individual therapy Urology Dr. Delgadillo Powder Compounder [place] Dr. Hailee Ricci METAL BUILDING ASSEMBLER Dr. Pompa METAL BUILDING ASSEMBLER ENAMELER Jaci Whitlock Dermatology Dr. Giles, Dr. Cedillo Ophthalmology Dr. Gonzalez in [place] [facility] Thoracic Surgery Dr. Mcgowan, ENAMELER Rhianna Berry Gastroenterology Dr. Eulalia Frost Gabriela is a 59 year old who uses the pronouns she, her, hers. 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 They appear to benefit from current medication regimen, regular therapy, and complementary/alternative approaches to overall health (meditation, acupuncture, bodywork, reiki, anti-inflammatory diet, etc.). She does have a history of chronic passive SI without plan or intent. She has numerous social supports. Discussed safety plan and crisis numbers provided. She lists her dog as a protective factor. Protective factors: not wanting to burden people by dying, supportive communities, hobbies. Goal to engage more in creative hobbies. Safety plan - neighbors, glass cutter, Shannon. Today, Gabriela reports starting TMS on 09/02 and noticing some benefits to mood and SI in the past couple of weeks. Notably, SI feels less attractive than it did previously. She has a safety plan in place and multiple social supports. She would still like to start Parnate, and this was discussed at length as below: Berenice assessment text for starting MAOI while remaining on methylphenidate and bupropion: Plan to start Parnate and titrate to 40mg total daily dose. Reviewed pharmacological mechanism of Parnate, necessity of dietary restrictions, and potential side effects, including orthostatic hypotension, hypertensive crisis, and serotonin syndrome. Plan to start hydralazine 10mg PRN for acute management of symptoms of hypertensive crisis with instruction to take this medication then proceed to the ED should these symptoms develop. To minimize risk of depression worsening and literature documenting low risk of hypertensive crisis with co- prescription of Parnate, bupropion, and methylphenidate, patient will continue on methylphenidate and bupropion while titrating Parnate. Patient counseled on importance of monitoring for side effects and recommendation that she inform clinic staff or proceed to the ED should symptoms of a hypertensive crisis or serotonin syndrome develop. PSYCHOTROPIC DRUG INTERACTIONS: None*. * Although traditional drug interaction resources list a theoretical risk of hypertensive crisis with the combination of methylphenidate (Ritalin) and tranylcypromine (Parnate), multiple reviews and current literature suggest this risk is minimal when used with careful monitoring. Michelle (2021) notes that methylphenidate primarily acts as a dopamine reuptake inhibitor with minimal serotonergic effects and concludes there is no risk for precipitation of serotonin toxidrome. Alistair (2004) and Alfie Chow et al. (2021) further support its use in treatment-resistant depression, reporting no documented cases of hypertensive crisis or serotonin toxicity when co-prescribed with an MAOI. Nevertheless, the patient was educated that she could be counseled about this risk by other healthcare professionals. References Alistair S.Joseph., 2004. Combining stimulants with monoamine oxidase inhibitors: a review of uses and one possible additional indication. J. Clin. Psychiatry 65, 1717-8465. Kraig Martinez, 2002. UNIX ADMINISTRATOR ???Stimulants??? and MAOIs. [employer]. URL https://www.psychotropical.com/yhcyc-scj-fux-stimulants/ (accessed 04.23.24). Alfie Chowet al., 2021. The prescriber???s guide to classic MAO inhibitors (phenelzine, tranylcypromine, isocarboxazid) for treatment-resistant depression. UNIX ADMINISTRATOR Spectr. 1-14. Future considerations: -Goal to taper off of Wellbutrin and onto Parnate -Monitor Ritalin for increased anxiety Psychotropic Drug Interactions: [PSYCHCLINICDDI] CANNABIDIOL + PROCHLORPERAZINE: may result in increased risk of sedation PROCHLORPERAZINE + HYDROXYZINE: increased risk of QTc prolongation Management: routine monitoring MNPMP was not checked today: not using controlled substances Risk Statements: Treatment Risk- Risks, benefits, alternatives and potential adverse effects have been discussed andare understood. Safety Risk-Gabriela did not appear to be an imminent safety risk to self or others. Plan 1) Medications: - continue bupropion SR 200mg BID - continue prazosin 1mg at bedtime - continue hydroxyzine 25mg at bedtime PRN (uses ~2-3x/week) - start Parnate: Day 1: 10 mg QAM x 3 days Day 4: 10 mg QAM and 10 mg Qnoon x 3 days Day 7: 20 mg QAM and 10 mg Qnoon x 3 days Day 10: 20 mg QAM and 20 mg Qnoon and continue on this dose - hydralazine 10mg prn for hypertensive crisis -TMS started 09/02 Other Providers: - Ritalin 5mg BID for ADHD (ADHD clinic) - Prochlorperazine 5mg-for nausea ~once/week (PCP) 2) Psychotherapy: Continue individual therapy ~2-3x/month 3) Next due: Labs- Routine monitoring is not indicated for current psychotropic medication regimen EKG- Routine monitoring is not indicated for current psychotropic medication regimen. Repeat EKG with addition of any Qtc prolonging medications. Rating scales- PHQ9 4) Referrals: None 5) Other: None 6) Follow-up: Return to clinic in about [address] Elizalde Pertinent Background [most recent eval 12/24/22] Gabriela Kraus first experienced mental health issues in childhood and first received mental health care as an adult (~[phone]). She was initially seen in the [facility] psychiatry clinic from 2013 through 2016 for management of major depressive disorder and complex PTSD. She left the clinic after her insurance changing and was pursuing alternative therapies for her wellbeing. She notes overall improvement, but has continued to struggle with ongoing dysthymia and chronic SI. She was referred back to this clinic by her primary doctor again in June 2019 to address chronic SI, and during this time has been managing diagnosis/treatment for cancer. She was admitted to [facility] for SI 03/03/2020-03/09/2020. Benefits significantly from complementary health treatments (such as acupuncture, Reiki, etc). Completed Day treatment at [facility]: ~Mar 2020-August 2020. Prior CBT, DBT, EMDR, and Hypnosis with individual therapists Pertinent items include: suicidal ideation, trauma hx, mutiple psychotropic trials , psych hosp andmajor medical problems Subjective Patient has been engaged in acute course of TMS. She has noted some recent improvement in mood and SI although also notes that she has had increased fatigue. Also describes some increase in hunger since starting TMS. Describes benefit as having more motivation to get things done. Describes it as having more gumption to make decisions and complete tasks like washing dishes or taking the dog to the park. Does endorse some ongoing suicidal ideation, but notes that the thoughts are less attractive and sticky than before. . Notes that she believes this reflects feeling overwhelmed with the SI as a means of coping with this feeling. Recognizes Engages in meditation practice for 20 years, which aids in managing mental health by allowing detachment from thoughts, viewing them as transient rather thanpersonal.that SI is a chronic thought pattern but that she has developed alternative coping strategies for managing these thoughts when they occur. Is getting rides and some meals from her [place]ara community and protestant while she has been getting TMS.This has been helpful. Reports undergoing Transcranial Magnetic Stimulation (TMS) treatment, which has been both fatiguingand beneficial. Describes the depression as a heavy wet wool blanket that is starting to feel more manageable and less restrictive. Sleep has been generally fine, with no significant issues reported. [facility], including rides and meals during TMS treatment. This support has been beneficial in managing daily responsibilities and reducingstress. Reviewed past medication trials, including bupropion, Cymbalta, Effexor, and Ritalin. Bupropion hasbeen used for several years alongside other medications for pain management. Reports difficulty distinguishing between symptoms caused by depression and those resulting from physical health issues due to Gorlin syndrome. Follows the Karthik protocol for cancer management, which includes dietary adjustments and coffee enemas for detoxification and inflammation reduction. This practice has been part of self-care for 15 years. Spent much of interview reviewing risks and side effects associated with starting Parnate. Reviewedlow tyramine diet, risks associated with stating as well as potential side effects. In particular, discussed risk of orthostatic hypotension and falls and importance of taking precautions when makingpostural changes. Also reviewed signs of hypertensive crisis, prescription of hydralazaine, and indications for proceeding to ED should she develop symptoms suggesting of hypertensive emergency or emerging serotonin syndrome. Recent Psych Symptoms: Depression: see HPI Elevated: none Psychosis: none Anxiety: see HPI Trauma Related: see HPI Insomnia: None Other: No Current Social History: Living situation Lives independently Financial: [employer], [employer] Social/spiritual support: close with ex-partner, [employer] community Feels safe at home: Yes Pertinent Substance Use: Alcohol: Beer once every 2-3 months Cannabis: Previously found CBD helpful for sx of long covid. Has since cut down use after finding that it was too much of a depressant. Now uses Delta 8 ~1x/week. Tobacco: No Caffeine: Coffee enemas daily. Drinks coffee Opioids: No Narcan Kit current: N/A Other substances: none Medical Review of Systems: Lightheadedness/orthostasis: None Headaches: None GI: None Sexual health concerns: None Contraception: No Mental Status Exam Alertness: alert and oriented Appearance: casually groomed Behavior/Demeanor: cooperative, pleasant, and calm, with good eye contact Speech: normal Language: intact Psychomotor: normal or unremarkable Mood: slightly better Affect: full range; congruent to: mood- yes, content- yes Thought Process/Associations: unremarkable Thought Content: Reports suicidal ideation - passive, intermittent, improved from previous; Denies violent ideation and delusions Perception: Reports none; Denies hallucinations Insight: good Judgment: good Cognition: does appear grossly intact; formal cognitive testing was not done Gait and Station: N/A (telehealth) Past Psych Med Trials Medication Max Dose (mg) Effect Dates of Use Bupropion 450 was kind of the go to - ? 2013 Duloxetine 60 not helpful for mood or pain 2018-early 2019 Fluoxetine 40 minimally effective Lorazepam 0.5 BID ? Prazosin 5+ improved nightmares, nausea and vertiginous symptoms at doses > 5mg, fatigue venlafaxine 150 sensitive to withdrawal SEs Paroxetine Ritalin was on when complicated PTSD misconstrued as ADD. Helped some Zoloft Treatment Course and Lowe Events Since November 2022 06/27/23: Duloxetine decrease from 60 to 40mg daily total given prolonged stability 5/20/24: Wellbutrin increased from 150mg BID to 200mg BID for worsened depression 12/31/23: Self-decreased duloxetine to 20mg daily in the interim, planning to decrease to 20mg everyother day with remainder of current fill then discontinue 02/04/24: Has now discontinued duloxetine entirely 09/02/24: TMS started 09/24/24: Started [place]ate titration Vitals Pulse Readings from Last 3 Encounters: 08/17/24 91 08/04/24 84 08/03/24 89 Wt Readings from Last 3 Encounters: 09/08/24 123.4 kg (272 lb) 08/17/24 123.8 kg (273 lb) 08/04/24 123.4 kg (272 lb) BP Readings from Last 3 Encounters: 08/17/24 137/83 08/04/24 133/86 08/03/24 126/85 Medical History ALLERGIES: Adhesive tape and Sulfa antibiotics Patient Active Problem List Diagnosis Postmenopausal bleeding Basal cell nevus syndrome Obesity S/P hysterectomy Kidney stone Endometrioid adenocarcinoma of uterus (H) Skin cancer of face Other specified congenital malformation syndromes, not elsewhere classified s/p robotic ASHVIN - 06/29 PTSD (post-traumatic stress disorder) Morbid obesity (H) Major depression, recurrent Neoplasm of uncertain behavior of skin Tinea pedis of both feet Malignant neoplasm metastatic to lung, unspecified laterality (H) Encounter for long-term (current) use of medications Neoplasm of unspecified behavior of bone, soft tissue, and skin History of nonmelanoma skin cancer Seborrheic keratosis Solar lentigo Multiple benign nevi BCNS (basal cell nevus syndrome) Multiple melanocytic nevi Generalized anxiety disorder Attention deficit hyperactivity disorder (ADHD), combined type Loss of hair Androgenetic alopecia Goltz-Gorlin syndrome TARUN (obstructive sleep apnea) Medications Current Outpatient Medications Medication Sig Dispense Refill acetaminophen (TYLENOL) 500 MG tablet Take 500 mg by mouth every 6 hours as needed for mild pain albuterol (PROAIR HFA/PROVENTIL HFA/VENTOLIN HFA) 108 (90 Base) MCG/ACT inhaler Inhale 2 puffs intothe lungs every 4 hours as needed for shortness of breath or wheezing. 18 g 1 buPROPion (WELLBUTRIN SR) 200 MG 12 hr tablet Take 1 tablet (200 mg) by mouth 2 times daily. 60 tablet 2 fluticasone-vilanterol (BREO ELLIPTA) 100-25 MCG/ACT inhaler Inhale 1 puff into the lungs daily. 28each 11 hydrOXYzine HCl (ATARAX) 25 MG tablet Take 1 tablet (25 mg) by mouth daily as needed for anxiety. 30 tablet 2 methylphenidate (RITALIN) 5 MG tablet Take 1 tablet (5 mg) by mouth 2 times daily. 60 tablet 0 methylphenidate (RITALIN) 5 MG tablet Take 1 tablet (5 mg) by mouth 2 times daily. 60 tablet 0 minoxidil (LONITEN) 2.5 MG tablet Take one-half tablet daily 60 tablet 3 Multiple Vitamins-Minerals (MULTIVITAMIN OR) Take 1 capsule by mouth AM naproxen sodium (ANAPROX) 220 MG tablet Take 220 mg by mouth as needed prazosin (MINIPRESS) 1 MG capsule Take 1 capsule (1 mg) by mouth at bedtime. 30 capsule 2 prochlorperazine (COMPAZINE) 5 MG tablet TAKE 1 TO 2 TABLETS BY MOUTH EVERY 4 TO 6 HOURS NEEDED FOR NAUSEA 30 tablet 3 SUMAtriptan (IMITREX) 25 MG tablet Take 1 tablet (25 mg) by mouth at onset of headache for migraine. May repeat in 2 hours. Max 8 tablets/24 hours. - Oral 9 tablet 3 Labs and Data 01/14/2024 6:55 PM 05/17/2024 6:57 PM 08/16/2024 4:22 PM PROMIS-10 Total Score w/o Sub Scores PROMIS TOTAL - SUBSCORES 25 24 24 Patient-reported 07/28/2013 3:00 PM 01/07/2024 2:57 PM CAGE-AID Total Score Total Score 0 0 Total Score MyChart 0 (A total score of 2 or greater is considered clinically significant) 09/21/2024 8:58 AM 09/22/2024 11:07 AM 09/23/2024 9:32 AM PHQ-9 SCORE PHQ-9 Total Score MyChart 8 (Mild depression) 8 (Mild depression) PHQ-9 Total Score 8 8 8 Patient-reported 07/19/2024 10:38 PM 07/30/2024 8:59 PM 08/31/2024 8:36 PM VITO-7 SCORE Total Score 0 (minimal anxiety) 0 (minimal anxiety) 1 (minimal anxiety) Total Score 0 0 1 Patient-reported Liver/Kidney Function, TSH Metabolic Blood counts Recent Labs Lab Test 05/11/21 0740 07/01/20 0632 AST 19 -- ALT 20 -- ALKPHOS 127 -- CR 0.77 0.93 Recent Labs Lab Test 03/03/20 2035 TSH 1.47 Recent Labs Lab Test 05/11/21 0740 CHOL 205* TRIG 116 LDL 125* HDL 57 No lab results found. Recent Labs Lab Test 07/13/21 1135 GLC 77 Recent Labs Lab Test 05/11/21 0740 WBC 6.7 HGB 12.5 HCT 39.2 MCV 91 PLT 370 PROVIDER: Gloria Elizalde MD Level of Medical Decision Making: - At least 1 chronic problem that is not stable - Engaged in prescription drug management during visit (discussed any medication benefits, side effects, alternatives, etc.) :[id number]} The longitudinal plan of care for the diagnosis(es)/condition(s) as documented were addressed during this visit. Due to the added complexity in care, I will continue to support Gabriela in the subsequentmanagement and with ongoing continuity of care. Psychiatry Individual Psychotherapy Note Psychotherapy start time - 1135 Psychotherapy end time - 1155 Date treatment plan last reviewed with patient - 09/25/24 Subjective: This supportive psychotherapy session addressed issues related to goals of therapy and current psychosocial stressors. Patient's reaction: Maintenance in the context of mental status appropriate for ambulatory setting. Interactive complexity indicated? No Plan: RTC in timeframe noted above Psychotherapy services during this visit included myself and the patient. Treatment Plan SYMPTOMS; PROBLEMS MEASURABLE GOALS; FUNCTIONAL IMPROVEMENT / GAINS INTERVENTIONS DISCHARGE CRITERIA Depression: depressed mood reduce depressive symptoms Supportive / psychodynamic marked symptom improvement Patient staffed in clinic with Dr. Ng who will sign the note. Manager Gallery is Dr. Boykin. Attestation: I, Racheal Ng MD, have personally performed an examination of this patient on September 24, 2024 and I have reviewed the resident's documentation. I have edited the note to reflect all relevantchanges. I agree with the resident findings and plan in this resident note. I have reviewed all vitals and laboratory findings. Racheal Ng MD [facility] Neuromodulation documented in this encounter Plan of Treatment Upcoming Encounters Date Type Department Care Team (Latest Contact Info) Description 10/29/2024 11:00 AM CDT Virtual Visit [facility] [address] [phone] 11/23/2024 1:30 PM CDT Office Visit [facility] [address] [phone] [place] [address] [place] [address] 532194 Gloria Elizalde MD [address] [place] [address] 434345 12/03/2024 3:00 PM CDT Office Visit [facility] [address] [place] [address] [phone] Jesse Arvizu MD [address] [place] [address] 12/15/2024 11:40 AM CDT Ancillary Procedure [facility] [address] [place] [phone] Yudy Pompa MD [address] [place] [address] [phone] 12/22/2024 11:40 AM CDT Oncology Visit [facility] [address] [place] [address] [phone] Yudy Pompa MD [address] [place] [address] [phone] 02/22/2025 12:30 PM CDT Office Visit [facility] [place] [address] [place] [address] [phone] Kenya Jennings MD [address] [place] [address] [phone] 03/12/2025 1:00 PM SECURITY INSTALLATION TECHNICIAN Office Visit [facility] Internal Medicine [address] [phone] Mamadou Bowie MD [address] [place] [address] 853175 03/23/2025 8:00 AM SECURITY INSTALLATION TECHNICIAN Hospital Encounter [facility] [address] [place] [address] [phone] Kenya Jennings MD [address] [place] [address] [phone] 03/23/2025 8:00 AM SECURITY INSTALLATION TECHNICIAN - 03/23/2025 12:05 PM SECURITY INSTALLATION TECHNICIAN Surgery [facility] [address] [place] [address] [phone] Kenya Jennings MD [address] [place] [address] [phone] MASTECTOMY, BILATERAL, SIMPLE, NO nipple grafts. OnQ 03/30/2025 10:00 AM SECURITY INSTALLATION TECHNICIAN Office Visit [facility] [address] [phone] Lynn Parks APRN [address] [phone] 04/16/2025 1:00 PM SECURITY INSTALLATION TECHNICIAN Office Visit [facility] Internal Medicine [address] [phone] Mamadou Bowie MD [address] [place] [address] 12[address] 05/03/2025 4:00 PM SECURITY INSTALLATION TECHNICIAN Office Visit [facility] [place] [address] [place] [address] [address] [place] [phone] Kenya Jennings MD [address] [place] [address] [address] [place], [place] [phone] 08/17/2025 12:15 PM CDT Office Visit [facility] D[facility]atology [facility] [place] 9[address] [facility] 3rd [place] [phone] Herber Lopez MD [address] [place] [address] [address] [place], [place] 200995 Scheduled Procedures Name Priority Associated Diagnoses Date/Ti me MASTECTOMY, BILATERAL, FOR GENDER AFFIRMATION Gender dysphoria in adult 03/23/2025 8:00 AM SECURITY INSTALLATION TECHNICIAN documented as of this encounter Goals Goal Patient Goal Type Associated Problems Recent Progress Patient-Stated? Author MYC ECC SURG ENROLL Care Plan MyC ECC SURG ENROLL No Fina Benjamin documented as of this encounter Visit Diagnoses Diagnosis 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)- Primary Major depressive disorder, recurrent episode, severe, without mention of psychotic behavior Severe episode of recurrent major depressive disorder, without psychotic features (H) Generalized anxiety disorder PTSD (post-traumatic stress disorder) Posttraumatic stress disorder Anxiety Anxiety state, unspecified Gender dysphoria in adult documented in this encounter Additional Health Concerns Active Problems Noted Date Diagnosed Date MyC ECC SURG ENROLL 09/11/2024 Assessment Noted Time PHQ-9 Depression Total Score: 7 09/25/19 25 11:04 AM CDT documented as of this encounter Care Teams Produce Sorter Relationship Specialty Start Date End Date Mamadou Bowie MD [address] [place] [address] 37273 PCP - General 03/18/23 Cindy Ruiz [facility] [address] [place] [address] Resident Internal Medicine 12/07/14 Trevor Espino MD [address] [place] [address] Urology 05/16/16 Jaci Whitlock APRN SURVEILLANCE DIRECTOR [address] [place] [address] Nurse Practitioner - Women's Health 12/14/16 Doris Ricci MD [facility] & [address] [address] Physician Internal Medicine 07/11/20 Yudy Pompa MD [address] [place] [address] 63738 Assigned Cancer Care Provider 08/21/20 Mary Carmen Rodriguez MD [address] [place] [address] [address] [place] [address] Dermatology 11/09/20 Herber Lopez MD [address] [place] [address] 14771 Dermapathology 11/09/20 Gloria Elizalde MD [address] [place] [address] [phone] Resident 12/24/22 Mamadou Bowie MD [address] [place] [address] [phone] Assigned PCP 03/23/23 Makenzie Romano MD [address] [place], [place] [phone] central supply assistant & Neurology - Child & Adolescent Psychiatry 11/08/23 Shani Stephenson MD [address] [place], [place] 899355 Resident Psychiatry 11/08/23 Ita Newton Specialty [employer] Work Supervisor 06/04/24 Kenya Jennings MD 420 [facility] 195 [place], [place] [phone] Plastic Surgery 06/04/24 Herber Lopez MD 420 [facility] [address] [place], [place] 487645 Assigned Dermatology Provider 07/26/24 Сергей Dumont [facility] Nurses Assistant 08/13/24 Kenya Jennings MD 420 [facility] 195 [place], [place] 011165 Assigned Surgical Provider 08/26/24 Jesse Arvizu MD 5775 [place] [address] Assigned Behavioral Health Provider 08/26/24 09/24/24 documented as of this encounter
--- OUTSIDE RECORDS SUMMARY | 2024-09-25 11:00 | XMS_ITS | Encounter Summary ---
Author Organization [facility] Address [address] [place] [address] Care Team Providers Care Cottage Attendant Name Role Phone Cindy Ruiz Unavailable [phone] Trevor Espino MD Unavailable [phone] Jaci Whitlock APRN HIMS MANAGER Unavailable + Doris Ricci MD Unavailable [phone] Yudy Pompa MD Unavailable [phone] Mary Carmen Rodriguez MD Unavailable + Herber Lopez MD Unavailable [phone] Gloria Elizalde MD Unavailable [phone] Mamadou Bowie MD Primary Care Provider [phone] Mamadou Bowie MD Unavailable Makenzie Romano MD Unavailable [phone] Shani Stephenson MD Unavailable [phone] Ita Newton Unavailable Unavailable Kenya Jennings MD Unavailable [phone] Herber Lopez MD Unavailable [phone] Сергей Dumont [facility] Unavailable Unavailable Kenya Jennings MD Unavailable [phone] Luis Dudley MD Unavailable [phone] Carmen Cole PA-C Unavailable [phone] Encounter Details Date Type Department Care Team (Late st Contact Info) Description 09/25/2024 11:00 AM CDT [facility] [address] [place] [address] 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) (Primary Dx) Social [...] relatives? Three times a week 04/02/2024 Attends Gnosticist Services Not on file 04/02 Active Member of Clubs or Organizations Not on f ile 04/02/2024 Attends Club or Organization Meetings Not on jd e 04/02/2024 Marital Status Not on file 04/02/2024 PHQ-2 Answer Date Recorded PHQ-2 Score 2 09/25/2024 [facility] - Occupational [...] in an abandoned building, in an overnight long term, or couch-surfing.) Yes 04/03/2024 Are you worried [...] PM CDT Legal Sex Female 3:58 AM PRECISION OPTICS TECHNICIAN Gender Identity other 11/14/2020 10:33 PM CDT Sexual Orientation Lesbian 06/22/2019 4: 20 AM PRECISION OPTICS TECHNICIAN documented as of this encounter Progress Notes * Brittnee Kiser - 09/25/2024 11:00 AM CDT Images from the original note were not included. Inter[facility] Psychiatry Program [address] [place] [address], [address] [place] [address] TMS Procedure Note Gabriela Kraus Age: [age] year old Date of : 1965 Gabriela Kraus comes into clinic today at the request of, Jesse Arvizu MD, ordering provider for TMS treatments. Pre-Procedure: History and Physical: Reviewed in medical record Consent signed by: Gabriela Kraus for this course of treatment on: 09/02/2024 Clinical Narrative: Patient tolerated treatment. Brought a friend today. Indications for TMS: MDD, recurrent, severe; 4+ medication trials (from 2+ classes) ineffective; Psychotherapy ineffective Procedure Diagnosis: MDD, severe, recurrent F33.2 Treatment Hx: Treatment number this series: 18 Total lifetime treatment number: 18 Allergies Allergen Reactions Adhesive Tape Rash Sulfa Antibiotics Rash LMP (LMP Unknown) Pause for the Cause Right patient: Yes Right procedure/correct coil: Yes; rTMS; cpt 40902; H1 coil. Earplugs in place: Yes Procedure [...] 11 09/11/24 12 12 09/18/24 12 10 09/25/24 8 7 Plan - Continue TMS treatments This service provided today was under the supervising provider of the day, Jesse Arvizu MD, who was available if needed. Brittnee Kiser TMS Shower Attendant [facility] Neuromodulation documented in this encounter Plan of Treatment Upcoming Encounters Date Type Department Care Team (Latest Contact Info) Description 10/29/2024 11:00 AM CDT Virtual Visit [facility] Psychiatry Clinic [address] [place] [phone] 11/23/2024 1:30 PM CDT Office Visit [facility] [address] [phone] Melanie Boykin MD [address] [place] [address] Gloria Elizalde MD [address] [place] [address] 878805 12/03/2024 3:00 PM CDT [facility] [address] [facility] [address] [place] [phone] Jesse Arvizu MD [address]75 [place] [address] 12/15/2024 11:40 AM CDT Ancillary Procedure [facility] CT Clinic [address] [place] [phone] Yudy Pompa MD [address] [place] [address] 490305 12/22/2024 11:40 AM CDT Oncology Visit [facility] [address] [place] [address] [phone] Yudy Pompa MD [address] [place] [address] 02/22/2025 12:30 PM CDT Office Visit [facility] [address] [place] [phone] Kenya Jennings MD [address] [place] [address] 476595 03/12/2025 1:00 PM PRECISION OPTICS TECHNICIAN Office Visit [facility] Internal Medicine [address] [phone] Mamadou Bowie MD [address] [place] [address] 03/23/2025 8:00 AM PRECISION OPTICS TECHNICIAN Hospital Encounter [facility] Per[facility]Op Services [address] [place] [address] [phone] Kenya Jennings MD [address] [place] [address] [phone] 03/23/2025 8:00 AM PRECISION OPTICS TECHNICIAN - 03/23/2025 12:05 PM PRECISION OPTICS TECHNICIAN Surgery [facility] [address] [place] [address] [phone] Kenya Jennings MD [address] [place] [address] [phone] MASTECTOMY, BILATERAL, SIMPLE, NO nipple grafts. OnQ 03/30/2025 10:00 AM PRECISION OPTICS TECHNICIAN Office Visit [facility] Plastic and Reconstructive Surgery [address] [phone] Lynn Parks APRN [address] [address] 04/16/2025 1:00 PM PRECISION OPTICS TECHNICIAN Office Visit [facility] Internal Medicine [address] [phone] Mamadou Bowie MD [address] [place] [address] 05/03/2025 4:00 PM PRECISION OPTICS TECHNICIAN Office Visit [facility] Plastic and Reconstructive Surgery [address] [phone] Kenya Jennings MD 420 [facility] 195 [place] [address] 08/17/2025 12:15 PM CDT Office Visit [facility] [place] 909 [facility] 3rd [place] [phone] Herber Lopez MD 420 [facility] 98 [place], [place] 125055 Scheduled Procedures Name Priority Associated Diagnoses Date/Ti me MASTECTOMY, BILATERAL, FOR GENDER AFFIRMATION Gender dysphoria in adult 03/23/2025 8:00 AM PRECISION OPTICS TECHNICIAN documented as of this encounter Goals Goal Patient Goal Type Associated Problems Recent Progress Patient-Stated? Author MYC ECC SURG ENROLL Care Plan MyC ECC SURG ENROLL No Fina Benjamin documented as of this encounter Procedures Procedure Name Priority Date/Time Associated Diagnosis Comments GA TRANSCRANIAL MAGNETIC STIMULATION TREATMENT,DELIVERY/MANAG EMENT Routine 09/25/2024 11:11 AM CDT 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) documented in this encounter Visit Diagnoses Diagnosis 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)- Primary Major depressive disorder, recurrent episode, severe, without mention of psychotic behavior Gender dysphoria in adult documented in this encounter Additional Health Concerns Active Problems Noted Date Diagnosed Date MyC ECC SURG ENROLL 09/11/2024 Assessment Noted Time PHQ-9 Depression Total Score: 7 09/26/19 25 11:11 AM CDT documented as of this encounter Care Teams Cottage Attendant Relationship Specialty Start Date End Date Mamadou Bowie MD [address] [place] [address] PCP - General 03/18/23 Cindy Ruiz [facility] [address] [place] [address] Resident Internal Medicine 12/07/14 Trevor Espino MD [address] [place] [address] [phone] Urology 05/16/16 Jaci Whitlock APRN CNP 420 [facility] 395 [place], [place] 038615 Nurse Practitioner - Women's Health 12/14/16 Doris Ricci MD [facility] & [address] [address] Physician Internal Medicine 07/11/20 Yudy Pompa MD [address] [place] [address] 488335 Assigned Cancer Care Provider 08/21/20 Mary Carmen Rodriguez MD 420 [facility] 98 [place] [address] Dermatology 11/09/20 Herber Lopez MD [address] [place] [address] 98 [place], [place] 335235 Dermapathology 11/09/20 Gloria Elizalde MD [address] [place] [address] [phone] Resident 12/24/22 Mamadou Bowie MD [address] [place] [address] 323165 Assigned PCP 03/23/23 Makenzie Romano MD [address] [place] [address] 507954 tractor sweeper driver & Neurology - Child & Adolescent Psychiatry 11/08/23 Shani Stephenson MD 420 [place], [place] 224265 Resident Psychiatry 11/08/23 Ita Newton Specialty Research Epidemiologist 06/04/24 Kenya Jennings MD [address] [place] [address] 195 [place], [place] 154675 Plastic Surgery 06/04/24 Herber Lopez MD 420 [facility] 98 [place], [place] 162695 Assigned Dermatology Provider 07/26/24 Сергей Dumont [facility] Therapy Aide 08/13/24 Kenya Jennings MD [address] [place] [address] [phone] Assigned Surgical Provider 08/26/24 Luis Dudley MD [address] [place] [place] [address] [phone] Assigned Behavioral Health Provider 09/25/24 10/25/24 Carmen Cole PA-C [address] [phone] Assigned Sleep Provider 09/25/24 documented as of this encounter
--- OUTSIDE RECORDS SUMMARY | 2024-09-29 11:00 | XMS_ITS | Encounter Summary ---
Author Organization [facility] Address [address] [place] [address] Care Team Providers Care Supervisor Knitting Name Role Phone Cindy Ruiz Unavailable [phone] Trevor Espino MD Unavailable [phone] Jaci Whitlock APRN SALESPERSON [employer] Unavailable + Doris Ricci MD Unavailable Yudy Pompa MD Unavailable Mary Carmen Rodriguez MD Unavailable + Herber Lopez MD Unavailable [phone] Gloria Elizalde MD Unavailable [phone] Mamadou Bowie MD Primary Care Provider [phone] Mamadou Bowie MD Unavailable Makenzie Romano MD Unavailable [phone] Shani Stephenson MD Unavailable [phone] Ita Newton Unavailable Unavailable Kenya Jennings MD Unavailable [phone] Herber Lopez MD Unavailable [phone] Сергей Dumont [facility] Unavailable Unavailable Kenya Jennings MD Unavailable [phone] Luis Dudley MD Unavailable [phone] Carmen Cole PA-C Unavailable [phone] Encounter Details Date Type Department Care Team (Late st Contact Info) Description 09/29/2024 11:00 AM CDT [facility] [address] [place] [address] Severe recurrent major depression without [...] relatives? Three times a week 04/02/2024 Attends Judaism Services Not on file 04/02 Active Member of Clubs or Organizations Not on f ile 04/02/2024 Attends Club or Organization Meetings Not on jd e 04/02/2024 Marital Status Not on file 04/02/2024 PHQ-2 Answer Date Recorded PHQ-2 Score 4 09/30/2024 [facility] [place] of Occupat ional Health - Occupational Stress [...] PM CDT Legal Sex Female 3:58 AM COMMERCIAL CREDIT SPECIALIST Gender Identity other 11/14/2020 10:33 PM CDT Sexual Orientation Lesbian 06/22/2019 4: 20 AM COMMERCIAL CREDIT SPECIALIST documented as of this encounter Progress Notes * Brittnee Kiser - 09/29/2024 11:00 AM CDT Images from the original note were not included. Interventional Psychiatry Program [address] [place] [address], [address] [place] [address] TMS Procedure Note Gabriela Kraus Age: [age] year old Date of : 1965 Gabriela Kraus comes into clinic today at the request of, Jesse Arvizu MD, ordering provider for TMS treatments. Pre-Procedure: History and Physical: Reviewed in medical record Consent signed by: Gabriela Esteban Nayana for this course of treatment on: 09/02/2024 Clinical Narrative: Patient tolerated treatment. Had a good weekend. Indications for TMS: MDD, recurrent, severe; 4+ medication trials (from 2+ classes) ineffective; Psychotherapy ineffective Procedure Diagnosis: MDD, severe, recurrent F33.2 Treatment Hx: Treatment number this series: 19 Total lifetime treatment number: 19 Allergies Allergen Reactions Adhesive Tape Rash Sulfa Antibiotics Rash LMP (LMP Unknown) Pause for the Cause Right patient: Yes Right procedure/correct coil: Yes; rTMS; cpt 11818; H1 coil. Earplugs in place: Yes Procedure [...] Energy: 61% (120%MT) Trains: 55 *USE SPACER* 09/23/2024 9:32 AM 09/24/2024 11:04 AM 09/25/2024 11:10 AM PHQ-9 SCORE PHQ-9 Total Score MyChart 8 (Mild depression) PHQ-9 Total Score 8 7 7 Patient-reported Date MADRS QIDS PHQ-9 09/02/24 19 13 11 09/11/24 12 12 09/18/24 12 10 09/25/24 8 7 Plan - Continue TMS treatments This service provided today was under the supervising provider of the day, Ulisses Mccartney MD, who was available if needed. Brittnee Kiser TMS Ecosystem Ecology Professor [facility] Neuromodulation documented in this encounter Plan of Treatment Upcoming Encounters Date Type Department Care Team (Latest Contact Info) Description 10/29/2024 11:00 AM CDT Virtual Visit [facility] Psychiatry Clinic [address] [place] [phone] 11/23/2024 1:30 PM CDT Office Visit [facility] Mental Health & Addiction [address] [phone] Melanie Boykin MD [address] [place] [address] Gloria Elizalde MD [address] [place] [address] [phone] 12/03/2024 3:00 PM CDT [facility] [address] [facility] [address] [place] [phone] Jesse Arvizu MD [address] [place] [address] 12/15/2024 11:40 AM CDT Ancillary Procedure [facility] Imaging Center CT Clinic [address] [place] [phone] Yudy Pompa MD [address] [place] [address] 525815 12/22/2024 11:40 AM CDT Oncology Visit [facility] [address] [place] [phone] Yudy Pompa MD [address] [place] [address] 02/22/2025 12:30 PM CDT Office Visit [facility] Plastic and Reconstructive Surgery Clinic [address] [place] [phone] Kenya Jennings MD [address] [place] [address] [phone] 03/12/2025 1:00 PM COMMERCIAL CREDIT SPECIALIST Office Visit [facility] Internal Medicine [address] [phone] Mamadou Bowie MD [address] [place] [address] 03/23/2025 8:00 AM COMMERCIAL CREDIT SPECIALIST Hospital Encounter [facility] Per[facility]Op [facility] [address] [place] [phone] Kenya Jennings MD [address] [place] [address] 917455 03/23/2025 8:00 AM COMMERCIAL CREDIT SPECIALIST - 03/23/2025 12:05 PM COMMERCIAL CREDIT SPECIALIST Surgery [facility] [address] [place] [address] [phone] Kenya Jennings MD [address] [place] [address] [phone] MASTECTOMY, BILATERAL, SIMPLE, NO nipple grafts. OnQ 03/30/2025 10:00 AM COMMERCIAL CREDIT SPECIALIST Office Visit [facility] Plastic and Reconstructive Surgery [address] [phone] Lynn Parks APRN [address] [address] 04/16/2025 1:00 PM COMMERCIAL CREDIT SPECIALIST Office Visit [facility] Internal Medicine [address] [phone] Mamadou Bowie MD [address] [place] [address] 05/03/2025 4:00 PM COMMERCIAL CREDIT SPECIALIST Office Visit [facility] Plastic and Reconstructive Surgery [address] [phone] Kenya Jennings MD 420 [facility] 195 [place], [place] 6030[address] 08/17/2025 12:15 PM CDT Office Visit [facility] Dermatology Clinic [place] [address] [facility] 3rd [place] [address] Herber Lopez MD 420 [facility] 98 [place], [place] 928[address] Scheduled Procedures Name Priority Associated Diagnoses Date/Ti me MASTECTOMY, BILATERAL, FOR GENDER AFFIRMATION Gender dysphoria in adult 03/23/2025 8:00 AM COMMERCIAL CREDIT SPECIALIST documented as of this encounter Goals Goal Patient Goal Type Associated Problems Recent Progress Patient-Stated? Author MYC ECC SURG ENROLL Care Plan MyC ECC SURG ENROLL No Fina Benjamin documented as of this encounter Procedures Procedure Name Priority Date/Time Associated Diagnosis Comments OR TRANSCRANIAL MAGNETIC STIMULATION TREATMENT,DELIVERY/MANAG EMENT Routine 09/29/2024 11:15 AM CDT Severe recurrent major depression without [...] Noted Time PHQ-9 Depression Total Score: 9 09/30/19 25 11:14 AM CDT documented as of this encounter Care Teams Supervisor Knitting Relationship Specialty Start Date End Date Mamadou Bowie MD [address] [place] [address] PCP - General 03/18/23 Cindy Ruiz [facility] [address] [place] [address] Resident Internal Medicine 12/07/14 Trevor Espino MD [address] [place] [address] [phone] Urology 05/16/16 Jaci Whitlock APRN CNP 420 [facility] 395 [place], [place] [phone] Nurse Practitioner - Women's Health 12/14/[address] [facility] & [address] [address] Physician Internal Medicine 07/11/20 Yudy Pompa MD [address] [place] [address] [phone] Assigned Cancer Care Provider 08/21/20 Mary Carmen Rodriguez MD 420 [facility] 98 [place] [address] Dermatology 11/09/20 Herber Lopez MD [address] [place] [address] 98 [place], [place] 385445 Dermapathology 11/09/20 Gloria Elizalde MD [address] [place] [address] 149305 Resident 12/24/22 Mamadou Bowie MD [address] [place] [address] [phone] Assigned PCP 03/23/23 Makenzie Romano MD [address] [place] [address] [phone] colorectal surgeon & Neurology - Child & Adolescent Psychiatry 11/08/23 Shani Stephenson MD 420 [place], [place] 321055 Resident Psychiatry 11/08/23 Ita Newton Specialty District Sales Coordinator 06/04/24 Kenya Jennings MD [address] [place] [address] 195 [place], [place] 460545 Plastic Surgery 06/04/24 Herber Lopez MD 420 [facility] 98 [place], [place] 139755 Assigned Dermatology Provider 07/26/24 Сергей Dumont [facility] Director Process 08/13/24 Kenya Jennings MD [address] [place] [address] [phone] Assigned Surgical Provider 08/26/24 Luis Dudley MD [address] [place] [address] [phone] Assigned Behavioral Health Provider 09/25/24 10/25/24 Carmen Cole PA-C [address] 276875 Assigned Sleep Provider 09/25/24 documented as of this encounter
--- OUTSIDE RECORDS SUMMARY | 2024-09-30 11:00 | XMS_ITS | Encounter Summary ---
Author Organization [facility] Address [address] [place] [address] Care Team Providers Care Telesales Advisor Name Role Phone Cindy Ruiz Unavailable [phone] Trevor Espino MD Unavailable [phone] Jaci Whitlock APRN TRAFFIC ENGINEER Unavailable + Doris Ricci MD Unavailable Yudy Pompa MD Unavailable [phone] Mary Carmen Rodriguez MD Unavailable + Herber Lopez MD Unavailable [phone] Gloria Elizalde MD Unavailable [phone] Mamadou Bowie MD Primary Care Provider [phone] Mamadou Bowie MD Unavailable Makenzie Romano MD Unavailable [phone] Shani Stephenson MD Unavailable [phone] Ita Newton Unavailable Unavailable Kenya Jennings MD Unavailable [phone] Herber Lopez MD Unavailable [phone] Сергей Dumont [facility] Unavailable Unavailable Kenya Jennings MD Unavailable [phone] Luis Dudley MD Unavailable [phone] Carmen Cole PA-C Unavailable [phone] Encounter Details Date Type Department Care Team (Late st Contact Info) Description 09/30/2024 11:00 AM CDT [facility] [address] [place] [address] Severe recurrent major depression without [...] relatives? Three times a week 04/02/2024 Attends Mandaeism Services Not on file 04/02 Active Member of Clubs or Organizations Not on f ile 04/02/2024 Attends Club or Organization Meetings Not on jd e 04/02/2024 Marital Status Not on file 04/02/2024 PHQ-2 Answer Date Recorded PHQ-2 Score 3 10/01/2024 [facility] of Occupat ional Health - Occupational [...] PM CDT Legal Sex Female 3:58 AM CHOPPER FEEDER Gender Identity other 11/14/2020 10:33 PM CDT Sexual Orientation Lesbian 06/22/2019 4: 20 AM CHOPPER FEEDER documented as of this encounter Progress Notes * Verónica Escobar - 09/30/2024 11:00 AM CDT Images from the original note were not included. Interventional Psychiatry Program [address] [place] [address], [address] [place] [address] TMS Procedure Note Gabriela Kraus Age: [age] year old Date of : 1965 Gabriela Kraus comes into clinic today at the request of, Jesse Arvizu MD, ordering provider for TMS treatments. Pre-Procedure: History and Physical: Reviewed in medical record Consent signed by: Gabriela Esteban Nayana for this course of treatment on: 09/02/2024 Clinical Narrative: Patient tolerated treatment. Indications for TMS: MDD, recurrent, severe; 4+ medication trials (from 2+ classes) ineffective; Psychotherapy ineffective Procedure Diagnosis: MDD, severe, recurrent F33.2 Treatment Hx: Treatment number this series: 20 Total lifetime treatment number: 20 Allergies Allergen Reactions Adhesive Tape Rash Sulfa Antibiotics Rash LMP (LMP Unknown) Pause for the Cause Right patient: Yes Right procedure/correct coil: Yes; rTMS; cpt 17147; H1 coil. Earplugs in place: Yes Procedure [...] Energy: 61% (120%MT) Trains: 55 *USE SPACER* 09/25/2024 11:10 AM 09/29/2024 11:14 AM 09/30/2024 9:17 AM PHQ-9 SCORE PHQ-9 Total Score MyChart 9 (Mild depression) PHQ-9 Total Score 7 9 9 Patient-reported Date MADRS QIDS PHQ-9 09/02/24 19 13 11 09/11/24 12 12 09/18/24 12 10 09/25/24 8 7 Plan - Continue TMS treatments This service provided today was under the supervising provider of the day, Jesse Arvizu MD, who was available if needed. Verónica Escobar TMS Face Cleaner [facility] Neuromodulation documented in this encounter Plan of Treatment Upcoming Encounters Date Type Department Care Team (Latest Contact Info) Description 10/29/2024 11:00 AM CDT [facility] [address] [facility] [address] [place] [address] 11/23/2024 1:30 PM CDT Office Visit [facility] Mental Health & Addiction [address] [phone] Melanie Boykin MD [address] [place], [place] 461184 Gloria Elizalde MD [address] [place] [address] 588195 12/03/2024 3:00 PM CDT [facility] [address] [facility] [address] [place] [phone] Jesse Arvizu MD [address]75 [place] [address] 12/15/2024 11:40 AM CDT Ancillary Procedure [facility] Imaging Center CT Clinic [address] [place] [phone] Yudy Pompa MD [address] [place] [address] 206185 12/22/2024 11:40 AM CDT Oncology Visit [facility] [address] [place] [phone] Yudy Pompa MD [address] [place] [address] [phone] 02/22/2025 12:30 PM CDT Office Visit [facility] Plastic and Reconstructive Surgery Clinic [address] [place] [phone] Kenya Jennings MD [address] [place] [address] 590345 03/12/2025 1:00 PM CHOPPER FEEDER Office Visit [facility] Internal Medicine [address] [phone] Mamadou Bowie MD [address] [place] [address] 03/23/2025 8:00 AM CHOPPER FEEDER Hospital Encounter [facility] Per[facility]Op Services [address] [place] [address] [phone] Kenya Jennings MD [address] [place] [address] 03/23/2025 8:00 AM CHOPPER FEEDER - 03/23/2025 12:05 PM CHOPPER FEEDER Surgery [facility] [address] [place] [address] [phone] Kenya Jennings MD [address] [place] [address] [phone] MASTECTOMY, BILATERAL, SIMPLE, NO nipple grafts. OnQ 03/30/2025 10:00 AM CHOPPER FEEDER Office Visit [facility]astic and Reconstructive Surgery Clinic [address] [phone] Lynn Parks APRN [address] [address] 04/16/2025 1:00 PM CHOPPER FEEDER Office Visit [facility] Internal Medicine [address] [phone] Mamadou Bowie MD [address] [place] [address] 05/03/2025 4:00 PM CHOPPER FEEDER Office Visit [facility] Plastic and Reconstructive Surgery Clinic [address] [phone] Kenya Jennings MD [address] [place] [address] [place] [address] 08/17/2025 12:15 PM CDT Office Visit [facility] Dermatology [facility] [place] 909 [facility] 3rd [place] [address] Herber Lopez MD 420 [facility] 98 [place], [place] [phone] Scheduled Procedures Name Priority Associated Diagnoses Date/Ti me MASTECTOMY, BILATERAL, FOR GENDER AFFIRMATION Gender dysphoria in adult 03/23/2025 8:00 AM CHOPPER FEEDER documented as of this encounter Goals Goal Patient Goal Type Associated Problems Recent Progress Patient-Stated? Author MYC ECC SURG ENROLL Care Plan MyC ECC SURG ENROLL No Fina Benjamin documented as of this encounter Procedures Procedure Name Priority Date/Time Associated Diagnosis Comments NC TRANSCRANIAL MAGNETIC STIMULATION TREATMENT,DELIVERY/MANAG EMENT Routine 09/30/2024 11:10 AM CDT Severe recurrent major depression without [...] Noted Time PHQ-9 Depression Total Score: 9 10/01/19 25 9:17 AM CDT documented as of this encounter Care Teams Telesales Advisor Relationship Specialty Start Date End Date Mamadou Bowie MD [address] [place] [address] PCP - General 03/18/23 Cindy Ruiz [facility] [address] [place], [place] [address] Resident Internal Medicine 12/07/14 Trevor Espino MD [address] [place] [address] [phone] Urology 05/16/16 Jaci Whitlock APRN TRAFFIC ENGINEER 420 [facility] 395 [place] [address] Nurse Practitioner - Women's Health 12/14/[address] [facility] & [address] [address] Physician Internal Medicine 07/11/20 Yudy Pompa MD [address] [place] [address] Assigned Cancer Care Provider 08/21/20 Mary Carmen Rodriguez MD 420 [facility] 98 [place], [place] 893885 Dermatology 11/09/20 Herber Lopez MD [address] [place] [address] 98 [place], [place] 349265 Dermapathology 11/09/20 Gloria Elizalde MD [address] [place] [address] Resident 12/24/22 Mamadou Bowie MD [address] [place] [address] [phone] Assigned PCP 03/23/23 Makenzie Romano MD [address] [place] [address] [phone] aging box hand & Neurology - Child & Adolescent Psychiatry 11/08/23 Shani Stephenson MD 420 [place], [place] 797705 Resident Psychiatry 11/08/23 Ita Newton Specialty Chief School Finance Officer 06/04/24 Kenya Jennings MD 420 [facility] 195 [place], [place] 739025 Plastic Surgery 06/04/24 Herber Lopez MD 420 [facility] 98 [place], [place] 633005 Assigned Dermatology Provider 07/26/24 Сергей Dumont [facility] Cover Assembler 08/13/24 Kenya Jennings MD [address] [phone] Assigned Surgical Provider 08/26/24 Luis Dudley MD [address] [place] [address] [place], [place] 9516[address] Assigned Behavioral Health Provider 09/25/24 10/25/24 Carmen Cole PA-C [address] Ru[address] 135545 Assigned Sleep Provider 09/25/24 documented as of this encounter
--- OUTSIDE RECORDS SUMMARY | 2024-10-01 11:00 | XMS_ITS | Encounter Summary ---
Author Organization [facility] Address [address] [place] [address] Care Team Providers Care Elect Equip Maint Eng Name Role Phone Cindy Ruiz Unavailable [phone] Trevor Espino MD Unavailable [phone] Jaci Whitlock APRN CHIEF EMBALMER Unavailable + Doris Ricci MD Unavailable Yudy Pompa MD Unavailable [phone] Mary Carmen Rodriguez MD Unavailable + Herber Lopez MD Unavailable [phone] Gloria Elizalde MD Unavailable [phone] Mamadou Bowie MD Primary Care Provider [phone] Mamadou Bowie MD Unavailable Makenzie Romano MD Unavailable [phone] Shani Stephenson MD Unavailable [phone] Ita Newton Unavailable Unavailable Kenya Jennings MD Unavailable [phone] Herber Lopez MD Unavailable [phone] Сергей Dumont [facility] Unavailable Unavailable Kenya Jennings MD Unavailable [phone] Luis Dudley MD Unavailable [phone] Carmen Cole PA-C Unavailable [phone] Encounter Details Date Type Department Care Team (Late st Contact Info) Description 10/01/2024 11:00 AM CDT Office Visit [facility] [address] [place] [address] Severe recurrent major depression without [...] relatives? Three times a week 04/02/2024 Attends [employer] Services Not on file 04/02 Active Member of Clubs or Organizations Not on f ile 04/02/2024 Attends Club or Organization Meetings Not on jd e 04/02/2024 Marital Status Not on file 04/02/2024 PHQ-2 Answer Date Recorded PHQ-2 Score 2 10/02/2024 [facility] - Occupational [...] in an abandoned building, in an overnight care home, or couch-surfing.) Yes 04/03/2024 Are you [...] PM CDT Legal Sex Female 3:58 AM ELECTRONIC ORGAN TECHNICIAN Gender Identity other 11/14/2020 10:33 PM CDT Sexual Orientation Lesbian 06/22/2019 4: 20 AM ELECTRONIC ORGAN TECHNICIAN documented as of this encounter Progress Notes * Brtitnee Kiser - 10/01/2024 11:00 AM CDT Images from the original note were not included. [facility] Program [address] [place] [address], [address] [place] [address] TMS Procedure Note Gabriela Kraus Age: [age] year old Date of : 1965 Gabriela Kraus comes into clinic today at the request of, Jesse Arvizu MD, ordering provider for TMS treatments. Pre-Procedure: History and Physical: Reviewed in medical record Consent signed by: Gabriela Kraus for this course of treatment on: 09/02/2024 Clinical Narrative: Patient tolerated treatment. Might take her dog to the park after TMS. Indications for TMS: MDD, recurrent, severe; 4+ medication trials (from 2+ classes) ineffective; Psychotherapy ineffective Procedure Diagnosis: MDD, severe, recurrent F33.2 Treatment Hx: Treatment number this series: 21 Total lifetime treatment number: 21 Allergies Allergen Reactions Adhesive Tape Rash Sulfa Antibiotics Rash LMP (LMP Unknown) Pause for the Cause Right patient: Yes Right procedure/correct coil: Yes; rTMS; cpt 76927; H1 coil. Earplugs in place: Yes Procedure [...] whowas available if needed. Brittnee Kiser TMS Buzzle Buffer [facility] Neuromodulation documented in this encounter Plan of Treatment Upcoming Encounters Date Type Department Care Team (Latest Contact Info) Description 10/29/2024 11:00 AM CDT Virtual Visit [facility] [address] [place] [address] [address] [place] [address] 11/23/2024 1:30 PM CDT Office Visit [facility] [address] [phone] Melanie Boykin MD [address] [place] [address] Gloria Elizalde MD [address] [place] [address] 928335 12/03/2024 3:00 PM CDT [facility] [address] [facility] [address] [place] [phone] Jesse Arvizu MD [address] [place] [address] 12/15/2024 11:40 AM CDT Ancillary Procedure [facility] [address] [place] [phone] Yudy Pompa MD [address] [place] [address] 883285 12/22/2024 11:40 AM CDT Oncology Visit [facility] [address] [place] [place] [phone] Yudy Pompa MD [address] [place] [address] 414025 02/22/2025 12:30 PM CDT Office Visit [facility] [address] [place] [phone] Kenya Jennings MD [address] [place] [address] 580425 03/12/2025 1:00 PM ELECTRONIC ORGAN TECHNICIAN Office Visit [facility] Internal Medicine [address] [phone] Mamadou Bowie MD [address] [place] [address] 03/23/2025 8:00 AM ELECTRONIC ORGAN TECHNICIAN Hospital Encounter [facility] PeriOp Services [address] [place] [address] [phone] Kenya Jennings MD [address] [place] [address] 460865 03/23/2025 8:00 AM ELECTRONIC ORGAN TECHNICIAN - 03/23/2025 12:05 PM ELECTRONIC ORGAN TECHNICIAN Surgery [facility] [address] [place] [address] [phone] Kenya Jennings MD [address] [place] [address] MASTECTOMY, BILATERAL, SIMPLE, NO nipple grafts. OnQ 03/30/2025 10:00 AM ELECTRONIC ORGAN TECHNICIAN Office [facility] [address] [phone] Lynn Parks APRN [address] [address] 04/16/2025 1:00 PM ELECTRONIC ORGAN TECHNICIAN Office Visit [facility] Internal Medicine [address] [phone] Mamadou Bowie MD [address] [place] [address] 05/03/2025 4:00 PM ELECTRONIC ORGAN TECHNICIAN Office [facility] [address] [phone] Kenya Jennings MD 420 [facility] 195 [place], [place] [address] 08/17/2025 12:15 PM CDT Office Visit [facility] [place] 909 [facility] 3rd [place] [address] Herber Lopez MD 420 [facility] 98 [place], [place] 136[address] Scheduled Procedures Name Priority Associated Diagnoses Date/Ti me MASTECTOMY, BILATERAL, FOR GENDER AFFIRMATION Gender dysphoria in adult 03/23/2025 8:00 AM ELECTRONIC ORGAN TECHNICIAN documented as of this encounter Goals Goal Patient Goal Type Associated Problems Recent Progress Patient-Stated? Author MYC ECC SURG ENROLL Care Plan MyC ECC SURG ENROLL No Fina Benjamin documented as of this encounter Procedures Procedure Name Priority Date/Time Associated Diagnosis Comments [place] TRANSCRANIAL MAGNETIC STIMULATION TREATMENT,DELIVERY/MANAG EMENT Routine 10/01/2024 11:17 AM CDT Severe recurrent major depression without [...] Noted Time PHQ-9 Depression Total Score: 8 10/28/ 25 10:21 AM CDT documented as of this encounter Care Teams Elect Equip Maint Eng Relationship Specialty Start Date End Date Mamadou Bowie MD [address] [place] [address] PCP - General 03/18/23 Cindy Ruiz [facility] [address] [place] [address] Resident Internal Medicine 12/07/14 Trevor Espino MD [address] [place] [address] Urology 05/16/16 Jaci Whitlock APRN CNP [address] [place] [address] 395 [place] [address] Nurse Practitioner - Women's Health 12/14/16 Doris Ricci MD [facility] & [address] [address] Physician Internal Medicine 07/11/20 Yudy Pompa MD [address] [place] [address] 834615 Assigned Cancer Care Provider 08/21/20 Mary Carmen Rodriguez MD 420 [facility] 98 [place] [address] Dermatology 11/09/20 Herber Lopez MD [address] [place] [address] [phone] Dermapathology 11/09/20 Gloria Elizalde MD [address] [place] [address] 581615 Resident 12/24/22 Mamadou Bowie MD [address] [place] [address] 136325 Assigned PCP 03/23/23 Makenzie Romano MD [address] [place] [address] [phone] director cloud transformation & Neurology - Child & Adolescent Psychiatry 11/08/23 Shani Stephenson MD [address] [place] [address] 867915 Resident Psychiatry 11/08/23 Ita Newton Specialty Referral And Information Aide 06/04/24 Kenya Jennings MD [address] [place] [address] 195 [place], [place] 734825 Plastic Surgery 06/04/24 Herber Lopez MD [address] [place] [address] 98 [place], [place] 189705 Assigned Dermatology Provider 07/26/24 Сергей Dumont [facility] Case Technician 08/13/24 Kenya Jennings MD [address] [place] [address] [phone] Assigned Surgical Provider 08/26/24 Luis Dudley MD [address] [place] [address] 634694 Assigned Behavioral Health Provider 09/25/24 10/25/24 Carmen Cole PA-C [address] [address] Assigned Sleep Provider 09/25/24 documented as of this encounter
--- OUTSIDE RECORDS SUMMARY | 2024-10-02 11:00 | XMS_ITS | Encounter Summary ---
Author Organization [place] Address [address] [place] [address] Care Team Providers Care Mingler Operator Name Role Phone Cindy Ruiz Unavailable [phone] Trevor Espino MD Unavailable [phone] Jaci Whitlock APRN MEDIA TECHNICIAN Unavailable + Doris Ricci MD Unavailable [phone] Yudy Pompa MD Unavailable [phone] Mary Carmen Rodriguez MD Unavailable + Herber Lopez MD Unavailable [phone] Gloria Elizalde MD Unavailable [phone] Mamadou Bowie MD Primary Care Provider [phone] Mamadou Bowie MD Unavailable Makenzie Romano MD Unavailable [phone] Shani Stephenson MD Unavailable [phone] Ita Newton Unavailable Unavailable Kenya Jennings MD Unavailable [phone] Herber Lopez MD Unavailable [phone] Сергей Dumont [facility] Unavailable Unavailable Kenya Jennings MD Unavailable [phone] Luis Dudley MD Unavailable [phone] Carmen Cole PA-C Unavailable [phone] Encounter Details Date Type Department Care Team (Late st Contact Info) Description 10/02/2024 11:00 AM CDT Office Visit [facility] [address] [place] [address] Severe recurrent major depression without [...] Answer Date Recorded PHQ-2 Score 2 10/02/2024 [facility] - [...] in an abandoned building, in an overnight skilled nursing, or couch-surfing.) Yes 04/03/2024 Are you worried [...] PM CDT Legal Sex Female 3:58 AM BULK STATION AGENT Gender Identity other 11/14/2020 10:33 PM CDT Sexual Orientation Lesbian 06/22/2019 4: 20 AM BULK STATION AGENT documented as of this encounter Progress Notes * JjcullenVerónica - 10/02/2024 11:00 AM CDT Images from the original note were not included. Interventional Psychiatry Program [address] [place] [address], [address] [place] [address] TMS Procedure Note Gabriela Kraus Age: [age] year old Date of : 1965 Gabriela Kraus comes into clinic today at the request of, Jesse Arvizu MD, ordering provider for TMS treatments. Pre-Procedure: History and Physical: Reviewed in medical record Consent signed by: Gabriela Esteban Nayana for this course of treatment on: 09/02/2024 Clinical Narrative: Patient tolerated treatment. Running errands today. Indications for TMS: MDD, recurrent, severe; 4+ medication trials (from 2+ classes) ineffective; Psychotherapy ineffective Procedure Diagnosis: MDD, severe, recurrent F33.2 Treatment Hx: Treatment number this series: 22 Total lifetime treatment number: 22 Allergies Allergen Reactions Adhesive Tape Rash Sulfa Antibiotics Rash LMP (LMP Unknown) Pause for the Cause Right patient: Yes Right procedure/correct coil: Yes; rTMS; cpt 66351; H1 coil. Earplugs in place: Yes Procedure [...] Energy: 61% (120%MT) Trains: 55 *USE SPACER* 09/29/2024 11:14 AM 09/30/2024 9:17 AM 10/01/2024 11:16 AM PHQ-9 SCORE PHQ-9 Total Score MyChart 9 (Mild depression) PHQ-9 Total Score 9 9 8 Patient-reported Date MADRS QIDS PHQ-9 09/02/24 19 13 11 09/11/24 12 12 09/18/24 12 10 09/25/24 8 7 10/02/24 9 7 Plan - Continue TMS treatments This service provided today was under the supervising provider of the day, Cole Whitehead MD, who was available if needed. Verónica Escobar TMS Customer Services Supervisor [facility] Neuromodulation documented in this encounter Plan of Treatment Upcoming Encounters Date Type Department Care Team (Latest Contact Info) Description 10/29/2024 11:00 AM CDT Virtual Visit [facility] Psychiatry Clinic [address] [place] [address] [address] [place] [address] 11/23/2024 1:30 PM CDT Office Visit [facility] Mental Health & Addiction [address] [phone] Melanie Boykin MD [address] [place] [address] Gloria Elizalde MD [address] [place] [address] 770745 12/03/2024 3:00 PM CDT [facility] Visit [facility] [address] [facility] [address] [place] [phone] Jesse Arvizu MD [address] [place] [address] 12/15/2024 11:40 AM CDT Ancillary Procedure [facility] Imaging Center CT Clinic [address] [place] [phone] Yudy Pompa MD [address] [place] [address] 351215 12/22/2024 11:40 AM CDT Oncology Visit [facility] [address] [place] [phone] Yudy Pompa MD [address] [place] [address] 02/22/2025 12:30 PM CDT Office Visit [facility] Plastic and Reconstructive Surgery Clinic [address] [place] [phone] Kenya Jennings MD [address] [place] [address] 03/12/2025 1:00 PM BULK STATION AGENT Office Visit [facility] Internal Medicine [address] [phone] Mamadou Bowie MD [address] [place] [address] 03/23/2025 8:00 AM BULK STATION AGENT Hospital Encounter [facility] PeriOp Services [address] [place] [address] [phone] Kenya Jennings MD [address] [place] [address] 763185 03/23/2025 8:00 AM BULK STATION AGENT - 03/23/2025 12:05 PM BULK STATION AGENT Surgery [facility] [address] [place] [address] [phone] Kenya Jennings MD [address] [place] [address] 705305 MASTECTOMY, BILATERAL, SIMPLE, NO nipple grafts. OnQ 03/30/2025 10:00 AM BULK STATION AGENT Office Visit [facility] Plastic and Reconstructive Surgery [address] [phone] Lynn Parks APRN [address] [address] 04/16/2025 1:00 PM BULK STATION AGENT Office Visit [facility] Internal Medicine [address] [phone] Mamadou Bowie MD [address] [place] [address] 05/03/2025 4:00 PM BULK STATION AGENT Office Visit [facility] Plastic and Reconstructive Surgery [address] [phone] Kenya Jennings MD 420 [facility] 195 [place], [place] [address] 08/17/2025 12:15 PM CDT Office Visit [facility] Dermatology Clinic [place] 909 [facility] 3rd [place] [phone] Herber Lopez MD 420 [facility] 98 [place], [place] 57[address] Scheduled Procedures Name Priority Associated Diagnoses Date/Ti me MASTECTOMY, BILATERAL, FOR GENDER AFFIRMATION Gender dysphoria in adult 03/23/2025 8:00 AM BULK STATION AGENT documented as of this encounter Goals Goal Patient Goal Type Associated Problems Recent Progress Patient-Stated? Author MYC ECC SURG ENROLL Care Plan MyC ECC SURG ENROLL No Fina Benjamin documented as of this encounter Procedures Procedure Name Priority Date/Time Associated Diagnosis Comments [place] TRANSCRANIAL MAGNETIC STIMULATION TREATMENT,DELIVERY/MANAG EMENT Routine 10/02/2024 11:12 AM CDT Severe recurrent major depression without [...] Noted Time PHQ-9 Depression Total Score: 7 10/03/19 25 11:12 AM CDT documented as of this encounter Care Teams Mingler Operator Relationship Specialty Start Date End Date Mamadou Bowie MD [address] [place] [address] PCP - General 03/18/23 Cindy Ruiz [place] [address] Resident Internal Medicine 12/07/14 Trevor Espino MD [address] [place] [address] Urology 05/16/16 Jaci Whitlock APRN CNP 420 [facility] 395 [place] [address] Nurse Practitioner - Women's Health 12/14/16 Doris Ricci MD [facility] & [address] [address] Physician Internal Medicine 07/11/20 Yudy Pompa MD [address] [place] [address] Assigned Cancer Care Provider 08/21/20 Mary Carmen Rodriguez MD 420 [facility] 98 [place] [address] Dermatology 11/09/20 Herber Lopez MD [address] [place] [address] 98 [place] [address] Dermapathology 11/09/20 Gloria Elizalde MD [address] [place] [address] Resident 12/24/22 Mamadou Bowie MD [address] [place] [address] 368855 Assigned PCP 03/23/23 Makenzie Romano MD [address] [place] [address] 146424 housetrailer servicer & Neurology - Child & Adolescent Psychiatry 11/08/23 Shani Stephenson MD 420 [place], [place] 696765 Resident Psychiatry 11/08/23 Ita Newton Specialty Boiler Control Room Operator 06/04/24 Kenya Jennings MD [address] [place] [address] 195 [place], [place] 703145 Plastic Surgery 06/04/24 Herber Lopez MD [address] [place] [address] 98 [place], [place] 419545 Assigned Dermatology Provider 07/26/24 Сергей Dumont [facility] Front Desk Coordinator 08/13/24 Kenya Jennings MD [address] [place] [address] 953245 Assigned Surgical Provider 08/26/24 Luis Dudley MD [address] [place] [address] 246944 Assigned Behavioral Health Provider 09/25/24 10/25/24 Carmen Cole PA-C [address] 678135 Assigned Sleep Provider 09/25/24 documented as of this encounter
--- OUTSIDE RECORDS SUMMARY | 2024-10-05 11:00 | XMS_ITS | Encounter Summary ---
Author Organization [facility] Address [address] [place] [address] Care Team Providers Care Street Light Lamp Cleaner Name Role Phone Cindy Ruiz Unavailable [phone] Trevor Espino MD Unavailable [phone] Jaci Whitlock APRN SHEET IRONWORKER Unavailable + Doris Ricci MD Unavailable Yudy Pompa MD Unavailable [phone] Mary Carmen Rodriguez MD Unavailable + Herber Lopez MD Unavailable [phone] Gloria Elizalde MD Unavailable [phone] Mamadou Bowie MD Primary Care Provider [phone] Mamadou Bowie MD Unavailable Makenzie Romano MD Unavailable [phone] Shani Stephenson MD Unavailable [phone] Ita Newton Unavailable Unavailable Kenya Jennings MD Unavailable [phone] Herber Lopez MD Unavailable [phone] Сергей Dumont [facility] Unavailable Unavailable Kenya Jennings MD Unavailable [phone] Luis Dudley MD Unavailable [phone] Carmen Cole PA-C Unavailable [phone] Encounter Details Date Type Department Care Team (Late st Contact Info) Description 10/05/2024 11:00 AM CDT Office Visit [facility] [address] [place] [address] Severe recurrent major depression without [...] relatives? Three times a week 04/02/2024 Attends [facility] Not on file 04/02 Active Member of Clubs or Organizations Not on f ile 04/02/2024 Attends Club or Organization Meetings Not on jd e 04/02/2024 Marital Status Not on file 04/02/2024 PHQ-2 Answer Date Recorded PHQ-2 Score 2 10/06/2024 [facility] of Occupat ional Health - Occupational Stress [...] in an abandoned building, in an overnight prison, or couch-surfing.) Yes 04/03/2024 Are you worried [...] PM CDT Legal Sex Female 3:58 AM ACTIVITIES CONCIERGE Gender Identity other 11/14/2020 10:33 PM CDT Sexual Orientation Lesbian 06/22/2019 4: 20 AM ACTIVITIES CONCIERGE documented as of this encounter Progress Notes * Jose CarlosChapis - 10/05/2024 11:00 AM CDT Images from the original note were not included. [facility] [address] [place] [address], [address] [place] [address] TMS Procedure Note Gabriela Kraus Age: [age] year old Date of : 1965 Gabriela Kraus comes into clinic today at the request of, Jesse Arvizu MD, ordering provider for TMS treatments. Pre-Procedure: History and Physical: Reviewed in medical record Consent signed by: Gabriela Esteban Nayana for this course of treatment on: 09/02/2024 Clinical Narrative: Patient tolerated treatment. Wanted to get more things done over the weekend but the weather got inthe way. Indications for TMS: MDD, recurrent, severe; 4+ medication trials (from 2+ classes) ineffective; Psychotherapy ineffective Procedure Diagnosis: MDD, severe, recurrent F33.2 Treatment Hx: Treatment number this series: 23 Total lifetime treatment number: 23 Allergies Allergen Reactions Adhesive Tape Rash Sulfa Antibiotics Rash LMP (LMP Unknown) Pause for the Cause Right patient: Yes Right procedure/correct coil: Yes; rTMS; cpt 66296; H1 coil. Earplugs in place: Yes Procedure [...] Energy: 61% (120%MT) Trains: 55 *USE SPACER* 10/01/2024 11:16 AM 10/02/2024 11:11 AM 10/05/2024 11:09 AM PHQ-9 SCORE PHQ-9 Total Score 8 7 7 Date MADRS QIDS PHQ-9 09/02/24 19 13 11 09/11/24 12 12 09/18/24 12 10 09/25/24 8 7 10/02/24 9 7 Plan - Continue TMS treatments This service provided today was under the supervising provider of the day, Jesse Arvizu MD, who was available if needed. [place] TMS Cable Inspector [facility] Neuromodulation documented in this encounter Plan of Treatment Upcoming Encounters Date Type Department Care Team (Latest Contact Info) Description 10/29/2024 11:00 AM CDT Virtual Visit [facility] [address] [place] [address] [address] [place] [address] 11/23/2024 1:30 PM CDT Office Visit [facility] Mental Health & Addiction [address] [phone] Melanie Boykin MD [address] [place] [address] Gloria Elizalde MD [address] [place] [address] 929695 12/03/2024 3:00 PM CDT [facility] [address] [facility] [address] [place] [phone] Jesse Arvizu MD [address] [place] [address] 12/15/2024 11:40 AM CDT Ancillary Procedure [facility] Clinic [address] [place] [phone] Yudy Pompa MD [address] [place] [address] 832255 12/22/2024 11:40 AM CDT Oncology Visit [facility] [address] [place] [phone] Yudy Pompa MD [address] [place] [address] 02/22/2025 12:30 PM CDT Office Visit [facility] Plastic and Reconstructive Surgery Clinic [address] [place] [phone] Kenya Jennings MD [address] [place] [address] 775405 03/12/2025 1:00 PM ACTIVITIES CONCIERGE Office Visit [facility] Internal Medicine [address] [phone] Mamadou Bowie MD [address] [place] [address] 03/23/2025 8:00 AM ACTIVITIES CONCIERGE Hospital Encounter [facility] PeriOp Services [address] [place] [phone] Kenya Jennings MD [address] [place] [address] 653915 03/23/2025 8:00 AM ACTIVITIES CONCIERGE - 03/23/2025 12:05 PM ACTIVITIES CONCIERGE Surgery [facility] [address] [place] [address] [phone] Kenya Jennings MD [address] [place] [address] [phone] MASTECTOMY, BILATERAL, SIMPLE, NO nipple grafts. OnQ 03/30/2025 10:00 AM ACTIVITIES CONCIERGE Office Visit [facility] Plastic and Reconstructive Surgery [address] [phone] Lynn Parks APRN [address] [address] 04/16/2025 1:00 PM ACTIVITIES CONCIERGE Office Visit [facility] Internal Medicine [address] [phone] Mamadou Bowie MD [address] [place] [address] 05/03/2025 4:00 PM ACTIVITIES CONCIERGE Office Visit [facility] Plastic and Reconstructive Surgery [address] [phone] Kenya Jennings MD [address] [facility] 195 [place] [address] 08/17/2025 12:15 PM CDT Office Visit [facility] [place] [address] [facility] 3rd [place] [phone] Herber Lopez MD 420 [facility] 98 [place], [place] 259375 Scheduled Procedures Name Priority Associated Diagnoses Date/Ti me MASTECTOMY, BILATERAL, FOR GENDER AFFIRMATION Gender dysphoria in adult 03/23/2025 8:00 AM ACTIVITIES CONCIERGE documented as of this encounter Goals Goal Patient Goal Type Associated Problems Recent Progress Patient-Stated? Author MYC ECC SURG ENROLL Care Plan MyC ECC SURG ENROLL No Fina Benjamin documented as of this encounter Procedures Procedure Name Priority Date/Time Associated Diagnosis Comments [place] TRANSCRANIAL MAGNETIC STIMULATION TREATMENT,DELIVERY/MANAG EMENT Routine 10/05/2024 11:10 AM CDT Severe recurrent major depression [...] Noted Time PHQ-9 Depression Total Score: 7 10/06/19 25 11:09 AM CDT documented as of this encounter Care Teams Street Light Lamp Cleaner Relationship Specialty Start Date End Date Mamadou Bowie MD [address] [place] [address] PCP - General 03/18/23 Cindy Ruiz [facility] [address] [place] [address] Resident Internal Medicine 12/07/14 Trevor Espino MD [address] [place] [address] [phone] Urology 05/16/16 Jaci Whitlock APRN CNP 420 [facility] 395 [place], [place] 8974[address] Nurse Practitioner - Women's Health 12/14/16 Doris Ricci MD [facility] & [address] [address] Physician Internal Medicine 07/11/20 Yudy Pompa MD [address] [place] [address] [phone] Assigned Cancer Care Provider 08/21/20 Mary Carmen Rodriguez MD [address] [facility] 98 [place] [address] Dermatology 11/09/20 Herber Lopez MD [address] [place] [address] 98 [place], [place] 142755 Dermapathology 11/09/20 Gloria Elizalde MD [address] [place] [address] 084435 Resident 12/24/22 Mamadou Bowie MD [address] [place] [address] [phone] Assigned PCP 03/23/23 Makenzie Romano MD [address] [place] [address] [phone] director of special education & Neurology - Child & Adolescent Psychiatry 11/08/23 Shani Stephenson MD 420 [place], [place] [phone] Resident Psychiatry 11/08/23 Ita Newton Specialty Candy Department Manager 06/04/24 Kenya Jennings MD [address] [place] [address] 195 [place], [place] 333645 Plastic Surgery 06/04/24 Herber Lopez MD 420 [facility] 98 [place], [place] 338865 Assigned Dermatology Provider 07/26/24 Сергей Dumont [facility] Medical Laboratory Scientist 08/13/24 Kenya Jennings MD [address] [place] [address] 727385 Assigned Surgical Provider 08/26/24 Luis Dudley MD [address] [place] [address] [phone] Assigned Behavioral Health Provider 09/25/24 10/25/24 Carmen Cole PA-C [address] 796145 Assigned Sleep Provider 09/25/24 documented as of this encounter
--- OUTSIDE RECORDS SUMMARY | 2024-10-05 13:00 | XMS_ITS | Encounter Summary ---
Author Organization [facility] Address [address] [place] [address] Care Team Providers Care Rocket Engine Component Mechanic Name Role Phone Cindy Ruiz Unavailable [phone] Trevor Espino MD Unavailable [phone] Jaci Whitlock APRN JIG AND FIXTURE REPAIRER Unavailable + Doris Ricci MD Unavailable [phone] Yudy Pompa MD Unavailable [phone] Mary Carmen Rodriguez MD Unavailable + Herber Lopez MD Unavailable [phone] Gloria Elizalde MD Unavailable [phone] Mamadou Bowie MD Primary Care Provider [phone] Mamadou Bowie MD Unavailable Makenzie Romano MD Unavailable [phone] Shani Stephenson MD Unavailable [phone] Ita Newton Unavailable Unavailable Kenya Jennings MD Unavailable [phone] Herber Lopez MD Unavailable [phone] Сергей Dumont [facility] Unavailable Unavailable Kenya Jennings MD Unavailable Luis Dudley MD Unavailable [phone] Carmen Cole PA-C Unavailable [phone] Reason for Referral * Consultation (Routine: Next available opening) - Pending Review Specialty Diagnoses / Procedures Referred By Contslime t Referred To Contact Diagnoses Obstructive sleep apnea (adult) (pediatric) Generalized anxiety disorder Carmen Cole PA-C [address] [address] Phone: tel: fax: Referral ID Status Reason Start Date Expiration Date V isits Requested Visits Authorized [id number] Pending Review 10/05/2024 10/05/2025 1 1 Question Answer Vendor/Device Type: ResMed Device Type: AirSense 10 Serial Number: [id number] Device Number 723 Comments Please be aware that coverage of these services is subject to the terms and limitations of your health insurance plan. Call member services at your health plan with any benefit or coverage questions. Reason for Visit * Reason Comments Sleep Problem Encounter Details Date Type Department Care Team (Late st Contact Info) Description 10/05/2024 1:00 PM CDT Documentation Only [facility] [address] [place] [address], [address] [place] [address] Sleep Problem Social History Tobacco Use Types Packs/Day Years [...] relatives? Three times a week 04/02/2024 Attends [employer] Services Not on file 04/02 Active Member of Clubs or Organizations Not on f ile 04/02/2024 Attends Club or Organization Meetings Not on jd e 04/02/2024 Marital Status Not on file 04/02/2024 PHQ-2 Answer Date Recorded PHQ-2 Score 2 10/06/2024 [facility] [place] of Occupat ional Health - Occupational Stress [...] Answer Date Recorded Do you have housing? ([place] g is defined as stable permanent housing [...] PM CDT Legal Sex Female 3:58 AM SOFTWARE LICENSING ANALYST Gender Identity other 11/14/2020 10:33 PM CDT Sexual Orientation Lesbian 06/22/2019 4: 20 AM SOFTWARE LICENSING ANALYST documented as of this encounter Progress Notes * Mar Heller - 10/05/2024 1:00 PM CDT Patient was offered choice of vendor and chose [facility]. Patient Gabriela Kraus was set up at [facility] on October 05, 2024. Patient received a Resmed Airsense 10 Pressures were set at 5-15 cm H2O. Patient???s ramp is 5 cm H2O for Auto and FLEX/EPR is 2. Patient received a Resmed Mask name: Airfit N30i Nasal mask size Small, heated tubing and heated humidifier. Patient has the following compliance requirements: usage only Mar Heller documented in this encounter Plan of Treatment Upcoming Encounters Date Type Department Care Team (Latest Contact Info) Description 10/29/2024 11:00 AM CDT Virtual Visit [facility] [address] [place] [phone] 11/23/2024 1:30 PM CDT Office Visit [facility] Mental Health & Addiction [place] [phone] [address] [place] [address] [phone] Melanie Boykin MD [address] [place] [address] [phone] Gloria Elizalde MD [address] [place] [address] [phone] 12/03/2024 3:00 PM CDT Office Visit [facility] Psychiatry [facility] [address] [place] [address] [place] [address] [phone] Jesse Arvizu MD [address] [place] [address] 12/15/2024 11:40 AM CDT Ancillary Procedure [facility] Imaging Center CT Clinic [address] [place] [phone] Yudy Pompa MD [address] [place] [address] 12/22/2024 11:40 AM CDT Oncology Visit [facility] [address] [place] [address] [phone] Yudy Pompa MD [address] [place] [address] [phone] 02/22/2025 12:30 PM CDT Office Visit [facility] Plastic and Reconstructive Surgery Clinic [address] [place] [phone] Kenya Jennings MD [address] [place] [address] 03/12/2025 1:00 PM SOFTWARE LICENSING ANALYST Office Visit [facility] Internal Medicine [address] [phone] Mamadou Bowie MD [address] [place] [address] 03/23/2025 8:00 AM SOFTWARE LICENSING ANALYST Hospital Encounter [facility] PeriOp Services [address] [place] [address] [place] MELTON [phone] Kenya Jennings MD [address] [place] [address] [phone] 03/23/2025 8:00 AM SOFTWARE LICENSING ANALYST - 03/23/2025 12:05 PM SOFTWARE LICENSING ANALYST Surgery [facility]Op Services [address] [place] [address] [place] MELTON [phone] Kenya Jennings MD [address] [place] [address] 866365 MASTECTOMY, BILATERAL, SIMPLE, NO nipple grafts. OnQ 03/30/2025 10:00 AM SOFTWARE LICENSING ANALYST Office Visit [facility] Re[facility] [address] [phone] Lynn Parks APRN [address] [phone] 04/16/2025 1:00 PM SOFTWARE LICENSING ANALYST Office Visit [facility] Internal Medicine [address] [phone] Mamadou Bowie MD [address] [place] [address] [phone] 05/03/2025 4:00 PM SOFTWARE LICENSING ANALYST Office Visit [facility] Re[facility] Clinic [address] [phone] Kenya Jennings MD [address] [place] [address] 619155 08/17/2025 12:15 PM CDT Office Visit [facility] Dermatology Clinic [address] [place] [phone] Herber Lopez MD [address] [place] [address] 98 [place], [place] [phone] Scheduled Procedures Name Priority Associated Diagnoses Date/Ti me MASTECTOMY, BILATERAL, FOR GENDER AFFIRMATION Gender dysphoria in adult 03/23/2025 8:00 AM SOFTWARE LICENSING ANALYST Scheduled Referrals Name Type Priority Associated Diagnoses Orde r Schedule AirSense 10 - - - Sleep Machine Order For ResMed w/ this device only Referral Routine: Next available opening Obstructive sleep apnea (adult) (pediatric) Generalized anxiety disorder Expected: 10/05/2024 (Approximate), Expires: 10/05/2025 documented as of this encounter Goals Goal Patient Goal Type Associated Problems Recent Progress Patient-Stated? Author MYC ECC SURG ENROLL Care Plan MyC ECC SURG ENROLL No Fina Benjamin documented as of this encounter Visit Diagnoses Diagnosis Obstructive sleep apnea (adult) (pediatric)- Primary Generalized anxiety disorder Gender dysphoria in adult documented in this encounter Additional Health Concerns Active Problems Noted Date Diagnosed Date MyC ECC SURG ENROLL 09/11/2024 Assessment Noted Time PHQ-9 Depression Total Score: 7 10/06/19 25 11:09 AM CDT documented as of this encounter Care Teams Rocket Engine Component Mechanic Relationship Specialty Start Date End Date Mamadou Bowie MD [address] [place] [address] [phone] PCP - General 03/18/23 Cindy Ruiz [facility] [address] [place], [place] [phone] Resident Internal Medicine 12/07/14 Trevor Espino MD [address] [place] [address] [phone] Urology 05/16/16 Jaci Whitlock APRN JIG AND FIXTURE REPAIRER [address] [place] [address] [phone] Nurse Practitioner - Women's Health 12/14/16 Doris Ricci MD [facility] [address] [place] [address] Physician Internal Medicine 07/11/20 Yudy Pompa MD [address] [place] [address] [phone] Assigned Cancer Care Provider 08/21/20 Mary Carmen Rodriguez MD 420 [facility] 98 [place], [place] 512965 Dermatology 11/09/20 Herber Lopez MD 420 [facility] 98 [place], [place] 939735 Dermapathology 11/09/20 Gloria Elizalde MD [address] [place] [address] 544365 Resident 12/24/22 Mamadou Bowie MD [address] [place] [address] 177835 Assigned PCP 03/23/23 Makenzie Romano MD [address] [place] [address] [phone] documentation analyst & Neurology - Child & Adolescent Psychiatry 11/08/23 Shani Stephenson MD 420 [place], [place] 465775 Resident Psychiatry 11/08/23 Ita Newton Specialty Bailer Operators Supervisor 06/04/24 Kenya Jennings MD [address] [phone] Plastic Surgery 06/04/24 Herber Lopez MD 420 [facility] 98 [place] [address] Assigned Dermatology Provider 07/26/24 С[facility]гей Dumont, [facility] Phone Technician 08/13/24 Kenya Jennings MD [address] [facility] 195 [place], [place] 214155 Assigned Surgical Provider 08/26/24 Luis Dudley MD [address] [place], [place] 730964 Assigned Behavioral Health Provider 09/25/24 10/25/24 Carmen Cole PA-C [address] [facility] [address] [place], [place] 743045 Assigned Sleep Provider 09/25/24 documented as of this encounter
--- OUTSIDE RECORDS SUMMARY | 2024-10-06 11:00 | XMS_ITS | Encounter Summary ---
Author Organization [facility] Address [address] [place] [address] Care Team Providers Care Stone Sandblaster Name Role Phone Cindy Ruiz Unavailable [phone] Trevor Espino MD Unavailable [phone] Jaci Whitlock APRN ICD 9 CODER Unavailable + Doris Ricci MD Unavailable [phone] Yudy Pompa MD Unavailable [phone] Mary Carmen Rodriguez MD Unavailable + Herber Lopez MD Unavailable [phone] Gloria Elizalde MD Unavailable [phone] Mamadou Bowie MD Primary Care Provider [phone] Mamadou Bowie MD Unavailable Makenzie Romano MD Unavailable [phone] Shani Stephenson MD Unavailable [phone] Ita Newton Unavailable Unavailable Kenya Jennings MD Unavailable [phone] Herber Lopez MD Unavailable [phone] Сергей Dumont [facility] Unavailable Unavailable Kenya Jennings MD Unavailable [phone] Luis Dudley MD Unavailable [phone] Carmen Cole PA-C Unavailable [phone] Encounter Details Date Type Department Care Team (Late st Contact Info) Description 10/06/2024 11:00 AM CDT Office [facility] [address] [place] [address] Severe recurrent major depression without [...] relatives? Three times a week 04/02/2024 Attends [employer] Not on file 04/02 Active Member of Clubs or Organizations Not on f ile 04/02/2024 Attends Club or Organization Meetings Not on jd e 04/02/2024 Marital Status Not on file 04/02/2024 PHQ-2 Answer Date Recorded PHQ-2 Score 4 10/07/2024 [facility] [place] of Occupat ional Health - Occupational Stress [...] in an abandoned building, in an overnight halfway, or couch-surfing.) Yes 04/03/2024 Are you worried [...] CDT Legal Sex Female 3:58 AM MOTOR GRADER ROUGH GRADE Gender Identity other 11/14/2020 10:33 PM CDT Sexual Orientation Lesbian 06/22/2019 4: 20 AM MOTOR GRADER ROUGH GRADE documented as of this encounter Progress Notes * Brittnee Kisre - 10/06/2024 11:00 AM CDT Images from the original note were not included. Interventional Psychiatry Program [address] [place] [address], [address] [place] [address] TMS Procedure Note Gabriela Kraus Age: [age] year old Date of : 1965 Gabriela Kraus comes into clinic today at the request of, Jesse Arvizu MD, ordering provider for TMS treatments. Pre-Procedure: History and Physical: Reviewed in medical record Consent signed by: Gabriela Esteban Nayana for this course of treatment on: 09/02/2024 Clinical Narrative: Patient tolerated treatment. Went to [facility]odoxy on Saturday. Indications for TMS: MDD, recurrent, severe; 4+ medication trials (from 2+ classes) ineffective; Psychotherapy ineffective Procedure Diagnosis: MDD, severe, recurrent F33.2 Treatment Hx: Treatment number this series: 24 Total lifetime treatment number: 24 Allergies Allergen Reactions Adhesive Tape Rash Sulfa Antibiotics Rash LMP (LMP Unknown) Pause for the Cause Right patient: Yes Right procedure/correct coil: Yes; rTMS; cpt 02271; H1 coil. Earplugs in place: Yes Procedure [...] Energy: 61% (120%MT) Trains: 55 *USE SPACER* 10/02/2024 11:11 AM 10/05/2024 11:09 AM 10/06/2024 8:45 AM PHQ-9 SCORE PHQ-9 Total Score MyChart 6 (Mild depression) PHQ-9 Total Score 7 7 6 Patient-reported Date MADRS QIDS PHQ-9 09/02/24 19 13 11 09/11/24 12 12 09/18/24 12 10 09/25/24 8 7 10/02/24 9 7 Plan - Continue TMS treatments This service provided today was under the supervising provider of the day, Ulisses Mccartney MD, who was available if needed. Brittnee Kiser TMS Scientist Engineer [facility] Neuromodulation documented in this encounter Plan of Treatment Upcoming Encounters Date Type Department Care Team (Latest Contact Info) Description 10/29/2024 11:00 AM CDT Virtual Visit [facility] [address] [facility] [address] [place] [phone] 11/23/2024 1:30 PM CDT Office Visit [facility] Mental Health & Addiction [address] F[address] [phone] Melanie Boykin MD [address] [place] [address] Gloria Elizalde MD [address] [place] [address] 664225 12/03/2024 3:00 PM CDT [facility] [address] [facility] [address] [place] [phone] Jesse Arvizu MD [address] [place] [address] 12/15/2024 11:40 AM CDT Ancillary Procedure [facility] Clinic [address] [place] [phone] Yudy Pompa MD [address] [place] [address] 560205 12/22/2024 11:40 AM CDT Oncology Visit [facility] [address] [place] [phone] Yudy Pompa MD [address] [place] [address] 085265 02/22/2025 12:30 PM CDT Office Visit [facility] Re[facility] [address] [place] [phone] Kenya Jennings MD [address] [place] [address] 326965 03/12/2025 1:00 PM MOTOR GRADER ROUGH GRADE Office Visit [facility] Internal Medicine [address] [phone] Mamadou Bowie MD [address] [place] [address] 03/23/2025 8:00 AM MOTOR GRADER ROUGH GRADE Hospital Encounter [facility] [address] [place] [phone] Kenya Jennings MD [address] [place] [address] [phone] 03/23/2025 8:00 AM MOTOR GRADER ROUGH GRADE - 03/23/2025 12:05 PM MOTOR GRADER ROUGH GRADE Surgery [facility] [address] [place] [phone] Kenya Jennings MD [address] [place] [address] MASTECTOMY, BILATERAL, SIMPLE, NO nipple grafts. OnQ 03/30/2025 10:00 AM MOTOR GRADER ROUGH GRADE Office Visit [facility] Plastic [facility] Reconstructive Surgery [address] [phone] Lynn Parks APRN [address] [address] 04/16/2025 1:00 PM MOTOR GRADER ROUGH GRADE Office Visit [facility] Internal Medicine [address] [phone] Mamadou Bowie MD [address] [place] [address] 05/03/2025 4:00 PM MOTOR GRADER ROUGH GRADE Office Visit [facility] [address] [phone] Kenya Jennings MD 420 [facility] 195 [place], [place] 945275 08/17/2025 12:15 PM CDT Office Visit [facility] [place] [address] [facility] 3rd [place] [address] Herber Lopez MD 420 [facility] 98 [place], [place] [phone] Scheduled Procedures Name Priority Associated Diagnoses Date/Ti me MASTECTOMY, BILATERAL, FOR GENDER AFFIRMATION Gender dysphoria in adult 03/23/2025 8:00 AM MOTOR GRADER ROUGH GRADE documented as of this encounter Goals Goal Patient Goal Type Associated Problems Recent Progress Patient-Stated? Author MYC ECC SURG ENROLL Care Plan MyC ECC SURG ENROLL No Fina Benjamin documented as of this encounter Procedures Procedure Name Priority Date/Time Associated Diagnosis Comments MD TRANSCRANIAL MAGNETIC STIMULATION TREATMENT,DELIVERY/MANAG EMENT Routine 10/06/2024 11:07 AM CDT Severe recurrent major depression without [...] Assessment Noted Time PHQ-9 Depression Total Score: 6 10/07/19 25 8:45 AM CDT documented as of this encounter Care Teams Stone Sandblaster Relationship Specialty Start Date End Date Mamadou Bowie MD [address] [place] [address] PCP - General 03/18/23 Cindy Ruiz [facility] [address] [place] [address] Resident Internal Medicine 12/07/14 Trevor Espino MD [address] [place] [address] 12982 Urology 05/16/16 Jaci Whitlock APRN CNP 420 [facility] 395 [place] [address] Nurse Practitioner - Women's Health 12/14/16 Doris Ricci MD [facility] & [address] [address] Physician Internal Medicine 07/11/20 Yudy Pompa MD [address] [place] [address] 417015 Assigned Cancer Care Provider 08/21/20 Mary Carmen Rodriguez MD 420 [facility] 98 [place], [place] 766[address] Dermatology 11/09/20 Herber Lopez MD [address] [place] [address] 804505 Dermapathology 11/09/20 Gloria Elizalde MD [address] [place] [address] [phone] Resident 12/24/22 Mamadou Bowie MD [address] [place] [address] 267345 Assigned PCP 03/23/23 Makenzie Romano MD [address] [place] [address] [phone] provider relations manager & Neurology - Child & Adolescent Psychiatry 11/08/23 Shani Stephenson MD [address] [place] [address] 152755 Resident Psychiatry 11/08/23 Ita Newton Specialty Farm Reporter 06/04/24 Kenya Jennings MD [address] [place] [address] [phone] Plastic Surgery 06/04/24 Herber Lopez MD [address] [place] [address] [phone] Assigned Dermatology Provider 07/26/24 Сергей Dumont [facility] Wood Type Cutter 08/13/24 Kenya Jennings MD [address] [place] [address] 136675 Assigned Surgical Provider 08/26/24 Luis Dudley MD [address] [place] [address] [phone] Assigned Behavioral Health Provider 09/25/24 10/25/24 Carmen Cole PA-C [address] [facility] [address] [address] Assigned Sleep Provider 09/25/24 documented as of this encounter
--- OUTSIDE RECORDS SUMMARY | 2024-10-07 11:00 | XMS_ITS | Encounter Summary ---
Author Organization [facility] Address [address] [place] [address] Care Team Providers Care Warp Yarn Sorter Name Role Phone Cindy Ruiz Unavailable [phone] Trevor Espino MD Unavailable [phone] Jaci Whitlock APRN [employer] Unavailable + Doris Ricci MD Unavailable Yudy Pompa MD Unavailable [phone] Mary Carmen Rodriguez MD Unavailable + Herber Lopez MD Unavailable [phone] Gloria Elizalde MD Unavailable Mamadou Bowie MD Primary Care Provider [phone] Mamadou Bowie MD Unavailable Makenzie Romano MD Unavailable [phone] Shani Stephenson MD Unavailable [phone] Ita Newton Unavailable Unavailable Kenya Jennings MD Unavailable [phone] Herber Lopez MD Unavailable [phone] Сергей Dumont [facility] Unavailable Unavailable Kenya Jennings MD Unavailable [phone] Luis Dudley MD Unavailable [phone] Carmen Cole PA-C Unavailable [phone] Encounter Details Date Type Department Care Team (Late st Contact Info) Description 10/07/2024 11:00 AM CDT [facility] Visit [facility] [address] [place] [address] Severe recurrent major depression without [...] PHQ-2 Answer Date Recorded PHQ-2 Score 3 10/08/2024 [facility] of Occupat ional Health [...] PM CDT Legal Sex Female 3:58 AM LAST PATTERN GRADER Gender Identity other 11/14/2020 10:33 PM CDT Sexual Orientation Lesbian 06/22/2019 4: 20 AM LAST PATTERN GRADER documented as of this encounter Progress Notes * Luz Verónica - 10/07/2024 11:00 AM CDT Images from the original note were not included. Interventional Psychiatry Program [address] [place] [address], [address] [place] [address] TMS Procedure Note Gabriela Kraus Age: [age] year old Date of : 1965 Gabriela Kraus comes into clinic today at the request of, Jesse Arvizu MD, ordering provider for TMS treatments. Pre-Procedure: History and Physical: Reviewed in medical record Consent signed by: Gabriela Esteban Nayana for this course of treatment on: 09/02/2024 Clinical Narrative: Patient tolerated treatment. Van is in the shop. Indications for TMS: MDD, recurrent, severe; 4+ medication trials (from 2+ classes) ineffective; Psychotherapy ineffective Procedure Diagnosis: MDD, severe, recurrent F33.2 Treatment Hx: Treatment number this series: 25 Total lifetime treatment number: 25 Allergies Allergen Reactions Adhesive Tape Rash Sulfa Antibiotics Rash LMP (LMP Unknown) Pause for the Cause Right patient: Yes Right procedure/correct coil: Yes; rTMS; cpt 80780; H1 coil. Earplugs in place: Yes Procedure [...] was available if needed. Verónica Escobar TMS Server Engineer [facility] Neuromodulation documented in this encounter Plan of Treatment Upcoming Encounters Date Type Department Care Team (Latest Contact Info) Description 10/29/2024 11:00 AM CDT Virtual Visit [facility] Psychiat[facility] [address] [place] [address] [address] [place] [address] 11/23/2024 1:30 PM CDT Office Visit [facility] Mental Health & Addiction [address] [phone] Melanie Boykin MD [address] [place] [address] Gloria Elizalde MD [address] [place] [address] [phone] 12/03/2024 3:00 PM CDT [facility] [address] [facility] [address] [place] [phone] Jesse Arvizu MD [address]75 [place] [address] 12/15/2024 11:40 AM CDT Ancillary Procedure [facility] Imaging Center CT Clinic [address] [place] [phone] Yudy Pompa MD [address] [place] [address] 510505 12/22/2024 11:40 AM CDT Oncology Visit [facility] [address] [place] [address] [phone] Yudy Pompa MD [address] [place] [address] 02/22/2025 12:30 PM CDT Office Visit [facility] Clinic [address] [place] [phone] Kenya Jennings MD [address] [place] [address] 195 [place] [address] 03/12/2025 1:00 PM LAST PATTERN GRADER Office Visit [facility] Internal Medicine [address] [phone] Mamadou Bowie MD [address] [place] [address] 03/23/2025 8:00 AM LAST PATTERN GRADER Hospital Encounter [facility] [address] [place] [phone] Kenya Jennings MD [address] [place] [address] 406635 03/23/2025 8:00 AM LAST PATTERN GRADER - 03/23/2025 12:05 PM LAST PATTERN GRADER Surgery [facility] [address] [place] [address] [phone] Kenya Jennings MD [address] [place] [address] MASTECTOMY, BILATERAL, SIMPLE, NO nipple grafts. OnQ 03/30/2025 10:00 AM LAST PATTERN GRADER Office Visit [facility] [address] [phone] Lynn Parks APRN [address] [address] 04/16/2025 1:00 PM LAST PATTERN GRADER Office Visit [facility] Internal Medicine [address] [phone] Mamadou Bowie MD [address] [place] [address] 05/03/2025 4:00 PM LAST PATTERN GRADER Office Visit [facility] [address] [phone] Kenya Jennings MD 420 [facility] 195 [place], [place] 2458[address] 08/17/2025 12:15 PM CDT Office Visit [facility] Dermatology Clinic [place] 9[address] [facility] 3rd [place] [phone] Herber Lopez MD 420 [facility] 98 [place], [place] [address] Scheduled Procedures Name Priority Associated Diagnoses Date/Ti me MASTECTOMY, BILATERAL, FOR GENDER AFFIRMATION Gender dysphoria in adult 03/23/2025 8:00 AM LAST PATTERN GRADER documented as of this encounter Goals Goal Patient Goal Type Associated Problems Recent Progress Patient-Stated? Author MYC ECC SURG ENROLL Care Plan MyC ECC SURG ENROLL No Fina Bejnamin documented as of this encounter Procedures Procedure Name Priority Date/Time Associated Diagnosis Comments HI TRANSCRANIAL MAGNETIC STIMULATION TREATMENT,DELIVERY/MANAG EMENT Routine 10/07/2024 11:06 AM CDT Severe recurrent major depression without [...] Noted Time PHQ-9 Depression Total Score: 9 10/28/20 25 10:21 AM CDT documented as of this encounter Care Teams Warp Yarn Sorter Relationship Specialty Start Date End Date Mamadou Bowie MD [address] [place] [address] PCP - General 03/18/23 Cindy Ruiz [place] [address] Resident Internal Medicine 12/07/14 Trevor Espino MD [address] [place] [address] Urology 05/16/16 Jaci Whitlock APRN CNP [address] [place] [address] 395 [place] [address] Nurse Practitioner - Women's Health 12/14/16 Doris Ricci MD [facility] & [address] [address] Physician Internal Medicine 07/11/20 Yudy Pompa MD [address] [place] [address] [phone] Assigned Cancer Care Provider 08/21/20 Mary Carmen Rodriguez MD [address] [place] [address] 98 [place] [address] Dermatology 11/09/20 Herber Lopez MD [address] [place] [address] 98 [place], [place] 136635 Dermapathology 11/09/20 Gloria Elizalde MD [address] [place] [address] [phone] Resident 12/24/22 Mamadou Bowie MD [address] [place] [address] [phone] Assigned PCP 03/23/23 Makenzie Romano MD [address] [place] [address] 614994 car mover & Neurology - Child & Adolescent Psychiatry 11/08/23 Shani Stephenson MD [address] [place] [address] [phone] Resident Psychiatry 11/08/23 Ita Newton Specialty Director Agency & Strategic Partnerships 06/04/24 Kenya Jennings MD [address] [place] [address] 143315 Plastic Surgery 06/04/24 Herber Lopez MD [address] [place] [address] [phone] Assigned Dermatology Provider 07/26/24 Сергей Dumont [facility] Biodiesel Product Manager 08/13/24 Kenya Jennings MD [address] [place] [address] [phone] Assigned Surgical Provider 08/26/24 Luis Dudley MD [address] [place] [address] 634604 Assigned Behavioral Health Provider 09/25/24 10/25/24 Carmen Cole PA-C [address] 153905 Assigned Sleep Provider 09/25/24 documented as of this encounter
--- OUTSIDE RECORDS SUMMARY | 2024-10-08 10:20 | XMS_ITS | Encounter Summary ---
Author Organization [place] Address [address] [place] [address] Care Team Providers Care Automotive Airconditioning Mechanic Name Role Phone Cindy Ruiz Unavailable [phone] Trevor Espino MD Unavailable [phone] Jaci Whitlock APRN CLOTHESPIN DRIER OPERATOR Unavailable + Doris Ricci MD Unavailable [phone] Yudy Pompa MD Unavailable [phone] Mary Carmen Rodriguez MD Unavailable + Herber Lopez MD Unavailable [phone] Gloria Elizalde MD Unavailable [phone] Mamadou Bowie MD Primary Care Provider [phone] Mamadou Bowie MD Unavailable Makenzie Romano MD Unavailable [phone] Shani Stephenson MD Unavailable [phone] Ita Newton Unavailable Unavailable Kenya Jennings MD Unavailable [phone] Herber Lopez MD Unavailable +[phone] Сергей Dumont [facility] Unavailable Unavailable Kenya Jennings MD Unavailable [phone] Luis Dudley MD Unavailable [phone] Carmen Cole PA-C Unavailable [phone] Reason for Visit * Reason Comments Sleep Problem STM Encounter Details Date Type Department Care Team (Latest Contact Info) Description 10/08/2024 10:20 AM CDT Documentation Only [facility] [address] [place] [address], [address] [place] [address] Sleep Problem (STM) Social History Tobacco Use Types Packs/Day Years [...] PHQ-2 Answer Date Recorded PHQ-2 Score 3 10/09/2024 [facility] [place] of Occupat ional Health - Occupational Stress [...] in an abandoned building, in an overnight [place] [facility] [place], or couch-surfing.) Yes 04/03/2024 Are you worried [...] CDT Legal Sex Female 3:58 AM COMMERCIAL STRIPPER Gender Identity other 11/14/2020 10:33 PM CDT Sexual Orientation Lesbian 06/22/2019 4: 20 AM COMMERCIAL STRIPPER documented as of this encounter Progress Notes * Neftali Aguilar - 10/08/2024 10:20 AM CDT 3 day Sleep therapy management telephone visit Diagnostic AHI: HST: 5.6 Confirmed with patient at time of call- N/A Patient is still interested in STM service Message left for patient to return call. Objective data Order Settings for PAP CPAP min CPAP max Device settings from machine CPAP min 5 CPAP max 15 Assessment: No use but has an account in [employer]. Patient has the following upcoming sleep appts: Replacement device: No STM ordered by provider: Yes Total time spent on accessing and interpreting remote patient PAP therapy data 10 minutes Total time spent counseling, coaching and reviewing PAP therapy data with patient 1 minutes [id number] no documented in this encounter Plan of Treatment Upcoming Encounters Date Type Department Care Team (Latest Contact Info) Description 10/29/2024 11:00 AM CDT Virtual Visit [facility] [address] [phone] 11/23/2024 1:30 PM CDT Office Visit [facility] Mental Health & Addiction [address] F[address] [phone] [place] [address] [place] [address] [phone] Gloria Elizalde MD 420 [place], [place] 222225 12/03/2024 3:00 PM CDT Office Visit [facility] [address] [place] [phone] Jesse Arvizu MD [address] [place] [address] 12/15/2024 11:40 AM CDT Ancillary Procedure [facility] Imaging Center [facility] Clinic [address]st [place] [phone] Yudy Pompa MD [address] [place] [address] 544275 12/22/2024 11:40 AM CDT Oncology Visit [facility] [address] [place] [address] [phone] Yudy Pompa MD [address] [place] [address] 494205 02/22/2025 12:30 PM CDT Office Visit [facility] [place] [address] [place] [address] [phone] Kenya Jennings MD [address] [place] [address] 914165 03/12/2025 1:00 PM COMMERCIAL STRIPPER Office Visit [facility] Internal Medicine [address] [phone] Mamadou Bowie MD [address] [place] [address] 03/23/2025 8:00 AM COMMERCIAL STRIPPER Hospital Encounter [facility] [address] [place] [phone] Kenya Jennings MD [address] [place] [address] 987885 03/23/2025 8:00 AM COMMERCIAL STRIPPER - 03/23/2025 12:05 PM COMMERCIAL STRIPPER Surgery [facility] [address] [place] [address] [phone] Kenya Jennings MD [address] [place] [address] [phone] MASTECTOMY, BILATERAL, SIMPLE, NO nipple grafts. OnQ 03/30/2025 10:00 AM COMMERCIAL STRIPPER Office Visit [facility] [address] [phone] Lynn Parks APRN [address] [id number] 04/16/2025 1:00 PM COMMERCIAL STRIPPER Office Visit [facility] Internal Medicine [address] [phone] Mamadou Bowie MD [address] [place] [address] 05/03/2025 4:00 PM COMMERCIAL STRIPPER Office Visit [facility] [address] [place] [phone] Kenya Jennings MD 420 [facility] 195 [place], [place] 450285 08/17/2025 12:15 PM CDT Office Visit [facility] Dermatology Clinic [address] [place] [address] Herber Lopez MD 420 [facility] 98 [place], [place] [address] Scheduled Procedures Name Priority Associated Diagnoses Date/Ti me MASTECTOMY, BILATERAL, FOR GENDER AFFIRMATION Gender dysphoria in adult 03/23/2025 8:00 AM COMMERCIAL STRIPPER documented as of this encounter Goals Goal Patient Goal Type Associated Problems Recent Progress Patient-Stated? Author MYC ECC SURG ENROLL Care Plan MyC ECC SURG ENROLL No Fina Benjamin documented as of this encounter Visit Diagnoses Not on filedocumented in this encounter Additional Health Concerns Active Problems Noted Date Diagnosed Date MyC ECC SURG ENROLL 09/11/2024 Assessment Noted Time PHQ-9 Depression Total Score: 8 10/09/19 25 9:11 AM CDT documented as of this encounter Care Teams Automotive Airconditioning Mechanic Relationship Specialty Start Date End Date Mamadou Bowie MD [address] [place] [address] PCP - General 03/18/23 [address] [place] [address] Resident Internal Medicine 12/07/14 Trevor Espino MD [address] [place] [address] Urology 05/16/16 Jaci Whitlock APRN CNP 420 [facility] 395 [place] [address] Nurse Practitioner - Women's Health 12/14/16 Doris Ricci MD [facility] & [address] [address] Physician Internal Medicine 07/11/20 Yudy Pompa MD [address] [place] [address] [phone] Assigned Cancer Care Provider 08/21/20 Mary Carmen Rodriguez MD 420 [facility] 98 [place] [address] Dermatology 11/09/20 Herber Lopez MD [address] [place] [address] 98 [place], [place] [phone] Dermapathology 11/09/20 Gloria Elizalde MD [address] [place] [address] [phone] Resident 12/24/22 Mamadou Bowie MD [address] [place] [address] 945245 Assigned PCP 03/23/23 Makenzie Romano MD [address] [place] [address] [phone] electrical and instrument mechanic & Neurology - Child & Adolescent Psychiatry 11/08/23 Shani Stephenson MD [address] [place] [address] [phone] Resident Psychiatry 11/08/23 Ita Newton Specialty Finishing Range Supervisor 06/04/24 Kenya Jennings MD [address] [place] [address] 195 [place], [place] 010235 Plastic Surgery 06/04/24 Herber Lopez MD [address] [place] [address] [phone] Assigned Dermatology Provider 07/26/24 Сергей Dumont [facility] Delivery Truck Driver 08/13/24 Kenya Jennings MD [address] [place] [address] 61788 Assigned Surgical Provider 08/26/24 Luis Dudley MD [address] [place] [address] 380994 Assigned Behavioral Health Provider 09/25/24 10/25/24 Carmen Cole PA-C [address] 525705 Assigned Sleep Provider 09/25/24 documented as of this encounter
--- OUTSIDE RECORDS SUMMARY | 2024-10-08 11:00 | XMS_ITS | Encounter Summary ---
Author Organization [place] Address [address] [place] [address] Care Team Providers Care Dump Grounds Checker Name Role Phone Cindy Ruiz Unavailable [phone] Trevor Espino MD Unavailable [phone] Jaci Whitlock APRN VOCATIONAL TEACHER Unavailable + Doris Ricci MD Unavailable [phone] Yudy Pompa MD Unavailable [phone] Mary Carmen Rodriguez MD Unavailable + Herber Lopez MD Unavailable [phone] Gloria Elizalde MD Unavailable [phone] Mamadou Bowie MD Primary Care Provider [phone] Mamadou Bowie MD Unavailable Makenzie Romano MD Unavailable [phone] Shani Stephenson MD Unavailable [phone] Ita Newton Unavailable Unavailable Kenya Jennings MD Unavailable [phone] Herber Lopez MD Unavailable [phone] Сергей Dumont [facility] Unavailable Unavailable Kenya Jennings MD Unavailable [phone] Luis Dudley MD Unavailable [phone] Carmen Cole PA-C Unavailable [phone] Encounter Details Date Type Department Care Team (Late st Contact Info) Description 10/08/2024 11:00 AM CDT [facility] [address] [place] [address] Severe recurrent major depression without [...] relatives? Three times a week 04/02/2024 Attends Muslim Services Not on file 04/02 Active Member of Clubs or Organizations Not on f ile 04/02/2024 Attends Club or Organization Meetings Not on jd e 04/02/2024 Marital Status Not on file 04/02/2024 PHQ-2 Answer Date Recorded PHQ-2 Score 3 10/09/2024 [facility] [place] of Occupat ional Health - Occupational Stress [...] PM CDT Legal Sex Female 3:58 AM MORTGAGE BROKER Gender Identity other 11/14/2020 10:33 PM CDT Sexual Orientation Lesbian 06/22/2019 4: 20 AM MORTGAGE BROKER documented as of this encounter Progress Notes * Chapis Branch - 10/08/2024 11:00 AM CDT Images from the original note were not included. Interventional Psychiatry Program [address] [place] [address], [address] [place] [address] TMS Procedure Note Gabriela Kraus Age: [age] year old Date of : 1965 Gabriela Kraus comes into clinic today at the request of, Jesse Arvizu MD, ordering provider for TMS treatments. Pre-Procedure: History and Physical: Reviewed in medical record Consent signed by: Gabriela Esteban Nayana for this course of treatment on: 09/02/2024 Clinical Narrative: Patient tolerated treatment. Brought a friend to treatment today. Indications for TMS: MDD, recurrent, severe; 4+ medication trials (from 2+ classes) ineffective; Psychotherapy ineffective Procedure Diagnosis: MDD, severe, recurrent F33.2 Treatment Hx: Treatment number this series: 26 Total lifetime treatment number: 26 Allergies Allergen Reactions Adhesive Tape Rash Sulfa Antibiotics Rash LMP (LMP Unknown) Pause for the Cause Right patient: Yes Right procedure/correct coil: Yes; rTMS; cpt 91794; H1 coil. Earplugs in place: Yes Procedure [...] Energy: 61% (120%MT) Trains: 55 *USE SPACER* 10/06/2024 8:45 AM 10/07/2024 11:04 AM 10/08/2024 9:11 AM PHQ-9 SCORE PHQ-9 Total Score MyChart 6 (Mild depression) 8 (Mild depression) PHQ-9 Total Score 6 9 8 Patient-reported Date MADRS QIDS PHQ-9 09/02/24 19 13 11 09/11/24 12 12 09/18/24 12 10 09/25/24 8 7 10/02/24 9 7 Plan - Continue TMS treatments This service provided today was under the supervising provider of the day, Zakiya Ng MD, whowas available if needed. Chapis Branch TMS Sub[employer] [facility] Mental [facility] Neuromodulation documented in this encounter Plan of Treatment Upcoming Encounters Date Type Department Care Team (Latest Contact Info) Description 10/29/2024 11:00 AM CDT Virtual Visit [facility] Psychiatry [facility] [address] [place] [address] [place] [phone] 11/23/2024 1:30 PM CDT Office Visit [facility] Mental Health & Addiction [address] F[address] [phone] Melanie Boykin MD 5510 [place] [address] Gloria Elizalde MD [address] [place] [address] [phone] 12/03/2024 3:00 PM CDT Office Visit [facility] 5775 [facility] [address] [place] [phone] Jesse Arvizu MD 5775 [place] [address] 12/15/2024 11:40 AM CDT Ancillary Procedure [facility] Imaging Center CT Clinic [address] [place] [phone] Yudy Pompa MD [address] [place] [address] 068355 12/22/2024 11:40 AM CDT Oncology Visit [facility] [address] [place] [address] [phone] Yudy Pompa MD [address] [place] [address] 552205 02/22/2025 12:30 PM CDT Office Visit [facility] Plastic and Reconstructive Surgery Clinic [address] 4th [place] [phone] Kenya Jennings MD [address] [place] [address] 195 [place], [place] 360295 03/12/2025 1:00 PM MORTGAGE BROKER Office Visit [facility] Internal Medicine [address] [phone] Mamadou Bowie MD [address] [place] [address] 03/23/2025 8:00 AM MORTGAGE BROKER Hospital Encounter [facility] PeriOp Services [address] [place] [address] [place] [phone] Kenya Jennings MD [address] [place] [address] [phone] 03/23/2025 8:00 AM MORTGAGE BROKER - 03/23/2025 12:05 PM MORTGAGE BROKER Surgery [facility] [address] [place] [address] [phone] Kenya Jennings MD [address] [place] [address] MASTECTOMY, BILATERAL, SIMPLE, NO nipple grafts. OnQ 03/30/2025 10:00 AM MORTGAGE BROKER Office Visit [facility] Plastic and Reconstructive Surgery Clinic [address] [phone] Lynn Parks APRN [address] [address] 04/16/2025 1:00 PM MORTGAGE BROKER Office Visit [facility] Internal Medicine [address] [phone] Mamadou Bowie MD [address] [place] [address] 05/03/2025 4:00 PM MORTGAGE BROKER Office Visit [facility] Plastic and Reconstructive Surgery Clinic [address] [phone] Kenya Jennings MD 420 [facility] 195 [place], [place] 164805 08/17/2025 12:15 PM CDT Office Visit [facility] Dermatology Clinic [place] 9[address] [facility] 3rd [place] [address] Herber Lopez MD 420 [facility] 98 [place], [place] 673905 Scheduled Procedures Name Priority Associated Diagnoses Date/Ti me MASTECTOMY, BILATERAL, FOR GENDER AFFIRMATION Gender dysphoria in adult 03/23/2025 8:00 AM MORTGAGE BROKER documented as of this encounter Goals Goal Patient Goal Type Associated Problems Recent Progress Patient-Stated? Author MYC ECC SURG ENROLL Care Plan MyC ECC SURG ENROLL No Fina Benjamin documented as of this encounter Procedures Procedure Name Priority Date/Time Associated Diagnosis Comments NV TRANSCRANIAL MAGNETIC STIMULATION TREATMENT,DELIVERY/MANAG EMENT Routine 10/08/2024 11:08 AM CDT Severe recurrent major depression without [...] documented as of this encounter Care Teams Dump Grounds Checker Relationship Specialty Start Date End Date Mamadou Bowie MD [address] [place] [address] PCP - General 03/18/23 Cindy Ruiz [facility] [address] [place] [address] Resident Internal Medicine 12/07/14 Trevor Espino MD 909 [place] [address] Urology 05/16/16 Jaci Whitlock APRN CNP 420 [facility] 395 [place] [address] Nurse Practitioner - Women's Health 12/14/16 Doris Ricci MD [facility] & [address] [address] Physician Internal Medicine 07/11/20 Yudy Pompa MD [address] [place] [address] 843405 Assigned Cancer Care Provider 08/21/20 Mary Carmen Rodriguez MD 420 [facility] 98 [place], [place] 447145 Dermatology 11/09/20 Herber Lopez MD [address] [place] [address] 98 [place], [place] 79[address] Dermapathology 11/09/20 Gloria Elizalde MD [address] [place] [address] [phone] Resident 12/24/22 Mamadou Bowie MD [address] [place] [address] [phone] Assigned PCP 03/23/23 Makenzie Romano MD [address] [place] [address] [phone] printer slotter helper & Neurology - Child & Adolescent Psychiatry 11/08/23 Shani Stephenson MD 420 [place], [place] 369575 Resident Psychiatry 11/08/23 Ita Newton Specialty Shaper Machine Hand 06/04/24 Kenya Jennings MD [address] [place] [address] 195 [place], [place] 498615 Plastic Surgery 06/04/24 Herber Lopez MD [address] [place] [address] 98 [place], [place] 804965 Assigned Dermatology Provider 07/26/24 Сергей Dumont [facility] Business Unit Leader 08/13/24 Kenya Jennings MD [address] [place] [address] 393195 Assigned Surgical Provider 08/26/24 Luis Dudley MD [address] [place] [address] 578034 Assigned Behavioral Health Provider 09/25/24 10/25/24 Carmen Cole PA-C [address] 967105 Assigned Sleep Provider 09/25/24 documented as of this encounter
--- OUTSIDE RECORDS SUMMARY | 2024-10-09 11:00 | XMS_ITS | Encounter Summary ---
Author Organization [facility] Address [address] [place] [address] Care Team Providers Care Returned Telephone Equipment Appraiser Name Role Phone Cindy Ruiz Unavailable [phone] Trevor Espino MD Unavailable [phone] Jaci Whitlock APRN HEARING THERAPY TEACHER Unavailable + Doris Ricci MD Unavailable Yudy Pompa MD Unavailable [phone] Mary Carmen Rodriguez MD Unavailable + Herber Lopez MD Unavailable [phone] Gloria Elizalde MD Unavailable [phone] Mamadou Bowie MD Primary Care Provider [phone] Mamadou Bowie MD Unavailable Makenzie Romano MD Unavailable [phone] Shani Stephenson MD Unavailable [phone] Ita Newton Unavailable Unavailable Kenya Jennings MD Unavailable [phone] Herber Lopez MD Unavailable [phone] Сергей Dumont [facility] Unavailable Unavailable Kenya Jennings MD Unavailable [phone] Luis Dudley MD Unavailable [phone] Carmen Cole PA-C Unavailable [phone] Encounter Details Date Type Department Care Team (Late st Contact Info) Description 10/09/2024 11:00 AM CDT Office [facility] [address] [place] [address] Severe recurrent major depression without [...] relatives? Three times a week 04/02/2024 Attends Orthodoxy Services Not on file 04/02 Active Member of Clubs or Organizations Not on f ile 04/02/2024 Attends Club or Organization Meetings Not on jd e 04/02/2024 Marital Status Not on file 04/02/2024 PHQ-2 Answer Date Recorded PHQ-2 Score 3 10/09/2024 [facility] - Occupational [...] PM CDT Legal Sex Female 3:58 AM ROBOTIC TOY INVENTOR Gender Identity other 11/14/2020 10:33 PM CDT Sexual Orientation Lesbian 06/22/2019 4: 20 AM ROBOTIC TOY INVENTOR documented as of this encounter Progress Notes * Brittnee Kiser - 10/09/2024 11:00 AM CDT Images from the original note were not included. [facility] Program [address] [place] [address], [address] [place] [address] TMS Procedure Note Gabriela Kraus Age: [age] year old Date of : 1965 Gabriela Kraus comes into clinic today at the request of, Jesse Arvizu MD, ordering provider for TMS treatments. Pre-Procedure: History and Physical: Reviewed in medical record Consent signed by: Gabriela Esteban Nayana for this course of treatment on: 09/02/2024 Clinical Narrative: Patient tolerated treatment. Going to an estate sale after treatment. Indications for TMS: MDD, recurrent, severe; 4+ medication trials (from 2+ classes) ineffective; Psychotherapy ineffective Procedure Diagnosis: MDD, severe, recurrent F33.2 Treatment Hx: Treatment number this series: 27 Total lifetime treatment number: 27 Allergies Allergen Reactions Adhesive Tape Rash Sulfa Antibiotics Rash LMP (LMP Unknown) Pause for the Cause Right patient: Yes Right procedure/correct coil: Yes; rTMS; cpt 91109; H1 coil. Earplugs in place: Yes Procedure [...] 10 09/25/24 8 7 10/02/24 9 7 10/09/24 6 8 Plan - Continue TMS treatments This service provided today was under the supervising provider of the day, Jesse Arvizu MD, who was available if needed. Brittnee Kiser TMS Business Support [facility] Neuromodulation documented in this encounter Plan of Treatment Upcoming Encounters Date Type Department Care Team (Latest Contact Info) Description 10/29/2024 11:00 AM CDT Virtual Visit [facility] [address] [facility] [address] [place] [phone] 11/23/2024 1:30 PM CDT Office Visit [facility] [address] [phone] Melanie Boykin MD [address] [place], [place] 962664 Gloria Elizalde MD [address] [place] [address] 810015 12/03/2024 3:00 PM CDT [facility] [address] [place] [phone] Jesse Arvizu MD 57[address] [place], [place] 153676 12/15/2024 11:40 AM CDT Ancillary Procedure [facility] [address] [place] [phone] Yudy Pompa MD [address] [place] [address] 162635 12/22/2024 11:40 AM CDT Oncology Visit [facility] [address] [place] [phone] Yudy Pompa MD [address] [place] [place] [address] [phone] 02/22/2025 12:30 PM CDT Office Visit [facility] [address] 4th [place] [phone] Kenya Jennings MD 420 [facility] 195 [place], [place] 805275 03/12/2025 1:00 PM ROBOTIC TOY INVENTOR Office Visit [facility] Internal Medicine [address] [phone] Mamadou Bowie MD [address] [place] [address] 03/23/2025 8:00 AM ROBOTIC TOY INVENTOR Hospital Encounter [facility] [address] [place] [address] [phone] Kenya Jennings MD [address] [place] [address] 030065 03/23/2025 8:00 AM ROBOTIC TOY INVENTOR - 03/23/2025 12:05 PM ROBOTIC TOY INVENTOR Surgery [facility] [address] [place] [address] [phone] Kenya Jennings MD [address] [place] [address] MASTECTOMY, BILATERAL, SIMPLE, NO nipple grafts. OnQ 03/30/2025 10:00 AM ROBOTIC TOY INVENTOR Office Visit [facility] [address] [phone] Lynn Parks APRN [address] [address] 04/16/2025 1:00 PM ROBOTIC TOY INVENTOR Office Visit [facility] Internal Medicine [address] [phone] Mamadou Bowie MD [address] [place] [address] 05/03/2025 4:00 PM ROBOTIC TOY INVENTOR Office Visit [facility] [address] [place] [phone] Kenya Jennings MD 420 [facility] 195 [place], [place] 757245 08/17/2025 12:15 PM CDT Office Visit [facility] [address] [place] [address] Herber Lopez MD 420 [facility] 98 [place], [place] 557535 Scheduled Procedures Name Priority Associated Diagnoses Date/Ti me MASTECTOMY, BILATERAL, FOR GENDER AFFIRMATION Gender dysphoria in adult 03/23/2025 8:00 AM ROBOTIC TOY INVENTOR documented as of this encounter Goals Goal Patient Goal Type Associated Problems Recent Progress Patient-Stated? Author [facility] ECC SURG ENROLL Care Plan [facility] ECC SURG ENROLL No Fina Benjamin documented as of this encounter Procedures Procedure Name Priority Date/Time Associated Diagnosis Comments MO TRANSCRANIAL MAGNETIC STIMULATION TREATMENT,DELIVERY/MANAG EMENT Routine 10/09/2024 11:10 AM CDT Severe recurrent major depression [...] Noted Time PHQ-9 Depression Total Score: 8 10/10/19 25 11:12 AM CDT documented as of this encounter Care Teams Returned Telephone Equipment Appraiser Relationship Specialty Start Date End Date Mamadou Bowie MD [address] [place] [address] PCP - General 03/18/23 Cindy Ruiz [facility] [address] [place] [address] Resident Internal Medicine 12/07/14 Trevor Espino MD [address] [place] [address] Urology 05/16/16 Jaci Whitlock APRN CNP 420 [facility] 395 [place] [address] Nurse Practitioner - Women's Health 12/14/16 Doris Ricci MD [facility] 2000 [place] [address] Physician Internal Medicine 07/11/20 Yudy Pompa MD [address] [place] [address] [phone] Assigned Cancer Care Provider 08/21/20 Mary Carmen Rodriguez MD 420 [facility] 98 [place], [place] 435385 Dermatology 11/09/20 Herber Lopez MD 420 [facility] 98 [place], [place] 745455 Dermapathology 11/09/20 Gloria Elizalde MD 420 [place], [place] 234885 Resident 12/24/22 Mamadou Bowie MD 9 [place], [place] 032655 Assigned PCP 03/23/23 Makenzie Romano MD [address] [place] [address] [phone] affiliate marketing manager & Neurology - Child & Adolescent Psychiatry 11/08/23 Shani Stephenson MD 420 [place] [address] Resident Psychiatry 11/08/23 Ita Newton Specialty Hairspring Truer 06/04/24 Kenya Jennings MD [address] [address] 195 [place], [place] 081805 Plastic Surgery 06/04/24 Herber Lopez MD [address] [place] [address] 98 [place], [place] 089735 Assigned Dermatology Provider 07/26/24 Сергей Dumont [facility] Lead Miner 08/13/24 Kenya Jennings MD [address] [address] 195 [place], [place] 689715 Assigned Surgical Provider 08/26/24 Luis Dudley MD [address] [place] [address] 477114 Assigned Behavioral Health Provider 09/25/24 10/25/24 Carmen Cole PA-C [address] [address] Assigned Sleep Provider 09/25/24 documented as of this encounter
--- OUTSIDE RECORDS SUMMARY | 2024-10-12 11:00 | XMS_ITS | Encounter Summary ---
Author Organization [facility] Address [address] [place] [address] Care Team Providers Care Rn Mobile Name Role Phone Cindy Ruiz Unavailable [phone] Trevor Espino MD Unavailable [phone] Jaci Whitlock APRN BOOTH CASHIER Unavailable + Doris Ricci MD Unavailable [phone] Yudy Pompa MD Unavailable [phone] Mary Carmen Rodriguez MD Unavailable + Herber Lopez MD Unavailable [phone] Gloria Elizalde MD Unavailable [phone] Mamadou Bowie MD Primary Care Provider [phone] Mamadou Bowie MD Unavailable Makenzie Romano MD Unavailable [phone] Shani Stephenson MD Unavailable [phone] Ita Newton Unavailable Unavailable Kneya Jennings MD Unavailable [phone] Herber Lopez MD Unavailable [phone] Сергей Dumont [facility] Unavailable Unavailable Kenya Jennings MD Unavailable [phone] Luis Dudley MD Unavailable [phone] Carmen Cole PA-C Unavailable [phone] Encounter Details Date Type Department Care Team (Late st Contact Info) Description 10/12/2024 11:00 AM CDT Office Visit [facility] [address] [place] [address] Severe recurrent major depression without [...] relatives? Three times a week 04/02/2024 Attends Jew Services Not on file 04/02 Active Member of Clubs or Organizations Not on f ile 04/02/2024 Attends Club or Organization Meetings Not on jd e 04/02/2024 Marital Status Not on file 04/02/2024 PHQ-2 Answer Date Recorded PHQ-2 Score 3 10/13/2024 [facility] - Occupational Stress [...] in an abandoned building, in an overnight intermediate, or couch-surfing.) Yes 04/03/2024 Are you worried [...] CDT Legal Sex Female 3:58 AM ELECTRONIC INTEGRATED SYSTEMS MECHANIC Gender Identity other 11/14/2020 10:33 PM CDT Sexual Orientation Lesbian 06/22/2019 4: 20 AM ELECTRONIC INTEGRATED SYSTEMS MECHANIC documented as of this encounter Progress Notes * Jose CarlosChapis - 10/12/2024 11:00 AM CDT Images from the original note were not included. Inter[facility] Psychiatry Program [address] [place] [address], [address] [place] [address] TMS Procedure Note Gabriela Kraus Age: [age] year old Date of : 1965 Gabriela Kraus comes into clinic today at the request of, Jesse Arvizu MD, ordering provider for TMS treatments. Pre-Procedure: History and Physical: Reviewed in medical record Consent signed by: Gabriela Esteban Nayana for this course of treatment on: 09/02/2024 Clinical Narrative: Patient tolerated treatment. Was able to hangout with some friends over the weekend. Indications for TMS: MDD, recurrent, severe; 4+ medication trials (from 2+ classes) ineffective; Psychotherapy ineffective Procedure Diagnosis: MDD, severe, recurrent F33.2 Treatment Hx: Treatment number this series: 28 Total lifetime treatment number: 28 Allergies Allergen Reactions Adhesive Tape Rash Sulfa Antibiotics Rash LMP (LMP Unknown) Pause for the Cause Right patient: Yes Right procedure/correct coil: Yes; rTMS; cpt 61455; H1 coil. Earplugs in place: Yes Procedure [...] Energy: 61% (120%MT) Trains: 55 *USE SPACER* 10/08/2024 9:11 AM 10/09/2024 11:10 AM 10/12/2024 9:13 AM PHQ-9 SCORE PHQ-9 Total Score MyChart 8 (Mild depression) 8 (Mild depression) PHQ-9 Total Score 8 8 8 Patient-reported Date MADRS QIDS PHQ-9 09/02/24 19 13 11 09/11/24 12 12 09/18/24 12 10 09/25/24 8 7 10/02/24 9 7 10/09/24 6 8 Plan - Continue TMS treatments This service provided today was under the supervising provider of the day, Luis Dudley MD, whowas available if needed. Chapis Branch TMS Aircraft Engine Installer [facility] Neuromodulation documented in this encounter Plan of Treatment Upcoming Encounters Date Type Department Care Team (Latest Contact Info) Description 10/29/2024 11:00 AM CDT Virtual Visit [facility] [address] [facility] [address] [place] [phone] 11/23/2024 1:30 PM CDT Office Visit [facility] [address] [phone] Melanie Boykin MD 0170 [place], [place] 850334 Gloria Elizalde MD [address] [place] [address] 692985 12/03/2024 3:00 PM CDT [facility] [address] [place] [phone] Jesse Arvizu MD 5775 [place], [place] 764076 12/15/2024 11:40 AM CDT Ancillary Procedure [facility] CT Clinic [address] [place] [phone] Yudy Pompa MD [address] [place] [address] [phone] 12/22/2024 11:40 AM CDT Oncology Visit [facility] [address] [place] [address] [phone] Yudy Pompa MD [address] [place] [address] [phone] 02/22/2025 12:30 PM CDT Office Visit [facility] Clinic [address] 4th [place] [phone] Kenya Jennings MD 420 [facility] 195 [place], [place] 628385 03/12/2025 1:00 PM ELECTRONIC INTEGRATED SYSTEMS MECHANIC Office Visit [facility] Internal Medicine [address] [phone] Mamadou Bowie MD [address] [place] [address] 03/23/2025 8:00 AM ELECTRONIC INTEGRATED SYSTEMS MECHANIC Hospital Encounter [facility] [address] [place] [address] [phone] Kenya Jennings MD [address] [place] [address] 120005 03/23/2025 8:00 AM ELECTRONIC INTEGRATED SYSTEMS MECHANIC - 03/23/2025 12:05 PM ELECTRONIC INTEGRATED SYSTEMS MECHANIC Surgery [facility] [address] [place] [address] [phone] Kenya Jennings MD [address] [place] [address] MASTECTOMY, BILATERAL, SIMPLE, NO nipple grafts. OnQ 03/30/2025 10:00 AM ELECTRONIC INTEGRATED SYSTEMS MECHANIC Office Visit [facility] [address] [phone] Lynn Parks APRN [address] [address] 04/16/2025 1:00 PM ELECTRONIC INTEGRATED SYSTEMS MECHANIC Office Visit [facility] Internal Medicine [address] [phone] Mamadou Bowie MD [address] [place] [address] 05/03/2025 4:00 PM ELECTRONIC INTEGRATED SYSTEMS MECHANIC Office Visit [facility] Clinic [address] [place] [phone] Kenya Jennings MD 420 [facility] 195 [place], [place] 460395 08/17/2025 12:15 PM CDT Office Visit [facility] Dermatology Clinic [address] [place] [address] Herber Lopez MD 420 [facility] 98 [place], [place] 045545 Scheduled Procedures Name Priority Associated Diagnoses Date/Ti me MASTECTOMY, BILATERAL, FOR GENDER AFFIRMATION Gender dysphoria in adult 03/23/2025 8:00 AM ELECTRONIC INTEGRATED SYSTEMS MECHANIC documented as of this encounter Goals Goal Patient Goal Type Associated Problems Recent Progress Patient-Stated? Author MYC ECC SURG ENROLL Care Plan [facility] ECC SURG ENROLL No Fina Benjamin documented as of this encounter Procedures Procedure Name Priority Date/Time Associated Diagnosis Comments MD TRANSCRANIAL MAGNETIC STIMULATION TREATMENT,DELIVERY/MANAG EMENT Routine 10/12/2024 11:07 AM CDT Severe recurrent major depression [...] Noted Time PHQ-9 Depression Total Score: 8 10/13/19 25 9:13 AM CDT documented as of this encounter Care Teams Rn Mobile Relationship Specialty Start Date End Date Mamadou Bowie MD [address] [place] [address] PCP - General 03/18/23 Cindy Ruiz [facility] [address] [place] [address] Resident Internal Medicine 12/07/14 Trevor Espino MD 909 [place] [address] Urology 05/16/16 Jaci Whitlock APRN CNP 420 [facility] 395 [place] [address] Nurse Practitioner - Women's Health 12/14/16 Doris Ricci MD [facility] 2000 [place] [address] Physician Internal Medicine 07/11/20 Yudy Pompa MD [address] [place] [address] 676125 Assigned Cancer Care Provider 08/21/20 Mary Carmen Rodriguez MD 420 [facility] 98 [place], [place] 9[address]15 Dermatology 11/09/20 Herber Lopez MD 420 [facility] 98 [place], [place] 421775 Dermapathology 11/09/20 Gloria Elizalde MD 420 [place], [place] 989445 Resident 12/24/22 Mamadou Bowie MD 9 [place], [place] 488165 Assigned PCP 03/23/23 Makenzie Romano MD [address] [place] [address] 284954 non licensed operator & Neurology - Child & Adolescent Psychiatry 11/08/23 Shani Stephenson MD 420 [place] [address] Resident Psychiatry 11/08/23 Ita Newton Specialty Director Motion Picture 06/04/24 Kenya Jennings MD [address] [place] [address] 195 [place], [place] 774325 Plastic Surgery 06/04/24 Herber Lopez MD [address] [place] [address] 98 [place], [place] 399935 Assigned Dermatology Provider 07/26/24 Сергей Dumont [facility] Industrial Safety And Health Technician 08/13/24 Kenya Jennings MD [address] [place] [address] 195 [place], [place] 070165 Assigned Surgical Provider 08/26/24 Luis Dudley MD [address] [place] [address] 312874 Assigned Behavioral Health Provider 09/25/24 10/25/24 Carmen Cole PA-C [address] [address] Assigned Sleep Provider 09/25/24 documented as of this encounter
--- OUTSIDE RECORDS SUMMARY | 2024-10-13 11:00 | XMS_ITS | Encounter Summary ---
Author Organization [facility] Address [address] [place] [address] Care Team Providers Care Flipping Machine Operator Name Role Phone Cindy Ruiz Unavailable [phone] Trevor Espino MD Unavailable [phone] Jaci Whitlock APRN ATTORNEY Unavailable + Doris Ricci MD Unavailable [phone] Yudy Pompa MD Unavailable [phone] Mary Carmen Rodriguez MD Unavailable + Herber Lopez MD Unavailable [phone] Gloria Elizalde MD Unavailable [phone] Mamadou Bowie MD Primary Care Provider [phone] Mamadou Bowie MD Unavailable Makenzie Romano MD Unavailable [phone] Shani Stephenson MD Unavailable [phone] Ita Newton Unavailable Unavailable Kenya Jennings MD Unavailable [phone] Herber Lopez MD Unavailable +[phone] Сергей Dumont [facility] Unavailable Unavailable Kenya Jennings MD Unavailable [phone] Luis uDdley MD Unavailable [phone] Carmen Cole PA-C Unavailable +[phone] Encounter Details Date Type Department Care Team (Late st Contact Info) Description 10/13/2024 11:00 AM CDT [facility] [address] [place] [address] Severe recurrent major depression without [...] relatives? Three times a week 04/02/2024 Attends Zoroastrian Services Not on file 04/02 Active Member of Clubs or Organizations Not on f ile 04/02/2024 Attends Club or Organization Meetings Not on jd e 04/02/2024 Marital Status Not on file 04/02/2024 PHQ-2 Answer Date Recorded PHQ-2 Score 2 10/14/2024 [facility] - Occupational [...] PM CDT Legal Sex Female 3:58 AM CASH ACCOUNTING CLERK Gender Identity other 11/14/2020 10:33 PM CDT Sexual Orientation Lesbian 06/22/2019 4: 20 AM CASH ACCOUNTING CLERK documented as of this encounter Progress Notes * Luz Verónica - 10/13/2024 11:00 AM CDT Images from the original note were not included. Inter[facility] Psychiatry Program [address] [place] [address], [address] [place] [address] TMS Procedure Note Gabriela Kraus Age: [age] year old Date of : 1965 Gabriela Kraus comes into clinic today at the request of, Jesse Arvizu MD, ordering provider for TMS treatments. Pre-Procedure: History and Physical: Reviewed in medical record Consent signed by: Gabriela Esteban Nayana for this course of treatment on: 09/02/2024 Clinical Narrative: Patient tolerated treatment. Got stuck in some bad traffic on the way in today. Indications for TMS: MDD, recurrent, severe; 4+ medication trials (from 2+ classes) ineffective; Psychotherapy ineffective Procedure Diagnosis: MDD, severe, recurrent F33.2 Treatment Hx: Treatment number this series: 29 Total lifetime treatment number: 29 Allergies Allergen Reactions Adhesive Tape Rash Sulfa Antibiotics Rash LMP (LMP Unknown) Pause for the Cause Right patient: Yes Right procedure/correct coil: Yes; rTMS; cpt 17346; H1 coil. Earplugs in place: Yes Procedure [...] Mccartney MD, who was available if needed. Verónica Escobar TMS Interstate Planner [facility] Neuromodulation documented in this encounter Plan of Treatment Upcoming Encounters Date Type Department Care Team (Latest Contact Info) Description 10/29/2024 11:00 AM CDT Virtual Visit [facility] [address] [facility] [address] [place] [phone] 11/23/2024 1:30 PM CDT Office Visit [facility] Mental Health & Addiction [address] [phone] Melanie Boykin MD 2450 [place], [place] 3727[address] Gloria Elizalde MD 420 [place], [place] 1611[address] 12/03/2024 3:00 PM CDT [facility] [address] [place] [phone] Jesse Arvizu MD 5775 [place] [address] 12/15/2024 11:40 AM CDT Ancillary Procedure [facility] Imaging Center CT Clinic [address] 1st [place] [phone] Yudy Pompa MD [address] [place] [address] [phone] 12/22/2024 11:40 AM CDT Oncology Visit [facility] [address] [place] [phone] Yudy Pompa MD [address] [place] [address] [phone] 02/22/2025 12:30 PM CDT Office Visit [facility] Plastic and Reconstructive Surgery Clinic [address] 4th [place] [phone] Kenya Jennings MD 420 [facility] [address] [place], [place] [phone] 03/12/2025 1:00 PM CASH ACCOUNTING CLERK Office Visit [facility] Internal Medicine [address] [phone] Mamadou Bowie MD [address] [place] [address] 03/23/2025 8:00 AM CASH ACCOUNTING CLERK Hospital Encounter [facility] PeriOp Services [address] [place] [phone] Kenya Jennings MD [address] [place] [address] 295695 03/23/2025 8:00 AM CASH ACCOUNTING CLERK - 03/23/2025 12:05 PM CASH ACCOUNTING CLERK Surgery [facility] [address] [place] [phone] Kenya Jennings MD [address] [place] [address] MASTECTOMY, BILATERAL, SIMPLE, NO nipple grafts. OnQ 03/30/2025 10:00 AM CASH ACCOUNTING CLERK Office Visit [facility] Plastic [facility] Reconstructive Surgery Clinic [address] [phone] Lynn Parks APRN [address] [address] 04/16/2025 1:00 PM CASH ACCOUNTING CLERK Office Visit [facility] Internal Medicine [address] [phone] Mamadou Bowie MD [address] [place] [address] 05/03/2025 4:00 PM CASH ACCOUNTING CLERK Office Visit [facility] Plastic and Reconstructive Surgery Clinic [address] [place] [phone] Kenya Jennings MD 420 [facility] 195 [place], [place] [address] 08/17/2025 12:15 PM CDT Office Visit [facility] Dermatology Clinic [address] [place] [address] Herber Lopez MD 420 [facility] 98 [place], [place] 560[address] Scheduled Procedures Name Priority Associated Diagnoses Date/Ti me MASTECTOMY, BILATERAL, FOR GENDER AFFIRMATION Gender dysphoria in adult 03/23/2025 8:00 AM CASH ACCOUNTING CLERK documented as of this encounter Goals Goal Patient Goal Type Associated Problems Recent Progress Patient-Stated? Author MYC ECC SURG ENROLL Care Plan [facility] ECC SURG ENROLL No Fina Benjamin documented as of this encounter Procedures Procedure Name Priority Date/Time Associated Diagnosis Comments [place] TRANSCRANIAL MAGNETIC STIMULATION TREATMENT,DELIVERY/MANAG EMENT Routine 10/13/2024 11:36 AM CDT Severe recurrent major depression without [...] Noted Time PHQ-9 Depression Total Score: 7 10/28/ 25 10:21 AM CDT documented as of this encounter Care Teams Flipping Machine Operator Relationship Specialty Start Date End Date Mamadou Bowie MD [address] [place] [address] PCP - General 03/18/23 Cindy Ruiz [facility] [address] [place] [address] Resident Internal Medicine 12/07/14 Trevor Espino MD 909 [place] [address] Urology 05/16/16 Jaci Whitlock APRN CNP 420 [facility] 395 [place] [address] Nurse Practitioner - Women's Health 12/14/16 Doris Ricci MD [facility] [address] [place] [address] Physician Internal Medicine 07/11/20 Yudy Pompa MD [address] [place] [address] [phone] Assigned Cancer Care Provider 08/21/20 Mary Carmen Rodriguez MD 420 [facility] 98 [place], [place] 9[address]395 Dermatology 11/09/20 Herber Lopez MD 420 [facility] 98 [place], [place] 5[address]35 Dermapathology 11/09/20 Gloria Elizalde MD 420 [place] [address] Resident 12/24/22 Mamadou Bowie MD 9 [place] [address] Assigned PCP 03/23/23 Makenzie Romano MD [address] [place] [address] [phone] dietetics teacher & Neurology - Child & Adolescent Psychiatry 11/08/23 Shani Stephenson MD 420 [place] [address] Resident Psychiatry 11/08/23 Ita Newton Specialty Bacteriologist Industrial 06/04/24 Kenya Jennings MD [address] [place] [address] 195 [place], [place] 084185 Plastic Surgery 06/04/24 Herber Lopez MD [address] [place] [address] 98 [place], [place] 513355 Assigned Dermatology Provider 07/26/24 Сергей Dumont [facility] Television Servicer 08/13/24 Kenya Jennings MD [address] [place] [address] 195 [place], [place] 894885 Assigned Surgical Provider 08/26/24 Luis Dudley MD [address] [place] [address] [address] [place], [place] 4525[address] Assigned Behavioral Health Provider 09/25/24 10/25/24 Carmen Cole PA-C [address] [address] Assigned Sleep Provider 09/25/24 documented as of this encounter
--- OUTSIDE RECORDS SUMMARY | 2024-10-14 11:00 | XMS_ITS | Encounter Summary ---
Author Organization [facility] Address [address] [place] [address] Care Team Providers Care Welding Equipment Repairer Supervisor Name Role Phone Cindy Ruiz Unavailable [phone] Trevor Espino MD Unavailable [phone] INSPECTOR Unavailable + Doris Ricci MD Unavailable [phone] Yudy Pompa MD Unavailable [phone] Mary Carmen Rodriguez MD Unavailable + Herber Lopez MD Unavailable [phone] Gloria Elizalde MD Unavailable [phone] Mamadou Bowie MD Primary Care Provider [phone] Mamadou Bowie MD Unavailable Makenzie Romano MD Unavailable [phone] Shani Stephenson MD Unavailable [phone] Ita Newton Unavailable Unavailable Kenya Jennings MD Unavailable [phone] Herber Lopez MD Unavailable [phone] Сергей Dumont [facility] Unavailable Unavailable Kenya Jennings MD Unavailable [phone] Luis Dudley MD Unavailable [phone] Carmen Cole PA-C Unavailable [phone] Encounter Details Date Type Department Care Team (Late st Contact Info) Description 10/14/2024 11:00 AM CDT Office Visit [facility] [address] [place] [address] Severe recurrent major depression without [...] relatives? Three times a week 04/02/2024 Attends Caodaism Services Not on file 04/02 Active Member of Clubs or Organizations Not on f ile 04/02/2024 Attends Club or Organization Meetings Not on jd e 04/02/2024 Marital Status Not on file 04/02/2024 PHQ-2 Answer Date Recorded PHQ-2 Score 2 10/15/2024 [facility] Occupat ional Health - [...] PM CDT Legal Sex Female 3:58 AM ROUSTABOUT CREW LEADER Gender Identity other 11/14/2020 10:33 PM CDT Sexual Orientation Lesbian 06/22/2019 4: 20 AM ROUSTABOUT CREW LEADER documented as of this encounter Progress Notes * LuzVerónica - 10/14/2024 11:00 AM CDT Images from the original note were not included. Interventional Psychiatry Program [address] [place] [address], [address] [place] [address] TMS Procedure Note Gabriela Kraus Age: [age] year old Date of : 1965 Gabriela Kraus comes into clinic today at the request of, Jesse Arvizu MD, ordering provider for TMS treatments. Pre-Procedure: History and Physical: Reviewed in medical record Consent signed by: Gabriela Esteban Nayana for this course of treatment on: 09/02/2024 Clinical Narrative: Patient tolerated treatment. Nurse check in. Indications for TMS: MDD, recurrent, severe; 4+ medication trials (from 2+ classes) ineffective; Psychotherapy ineffective Procedure Diagnosis: MDD, severe, recurrent F33.2 Treatment Hx: Treatment number this series: 30 Total lifetime treatment number: 30 Allergies Allergen Reactions Adhesive Tape Rash Sulfa Antibiotics Rash LMP (LMP Unknown) Pause for the Cause Right patient: Yes Right procedure/correct coil: Yes; rTMS; cpt 64982; H1 coil. Earplugs in place: Yes Procedure [...] Energy: 61% (120%MT) Trains: 55 *USE SPACER* 10/12/2024 9:13 AM 10/13/2024 11:35 AM 10/14/2024 9:04 AM PHQ-9 SCORE PHQ-9 Total Score MyChart 8 (Mild depression) 7 (Mild depression) PHQ-9 Total Score 8 7 7 Patient-reported Date MADRS QIDS PHQ-9 09/02/24 19 13 11 09/11/24 12 12 09/18/24 12 10 09/25/24 8 7 10/02/24 9 7 10/09/24 6 8 Plan - Continue TMS treatments This service provided today was under the supervising provider of the day, Jesse Arvizu MD, who was available if needed. Verónica Escobar TMS Diesel Engine Fitter [facility] Neuromodulation documented in this encounter Plan of Treatment Upcoming Encounters Date Type Department Care Team (Latest Contact Info) Description 10/29/2024 11:00 AM CDT Virtual Visit [facility] Psychiatry Clinic [address] [place] [address] [place] [phone] 11/23/2024 1:30 PM CDT Office Visit [facility] Mental Health & Addiction [address] F[address] [phone] Melanie Boykin MD 5760 [place] [address] Gloria Elizalde MD [address] [place] [address] 646235 12/03/2024 3:00 PM CDT [facility] 5775 [facility] [address] [place] [phone] Jesse Arvizu MD 5775 [place] [address] 12/15/2024 11:40 AM CDT Ancillary Procedure [facility] Imaging Center CT Clinic [address] 1st [place] [phone] Yudy Pompa MD [address] [place] [address] 608335 12/22/2024 11:40 AM CDT Oncology Visit [facility] [address] [place] [phone] Yudy Pompa MD [address] [place] [address] 416955 02/22/2025 12:30 PM CDT Office Visit [facility] Plastic and Reconstructive Surgery Clinic [address] 4th [place] [phone] Kenya Jennings MD [address] [place] [address] 195 [place], [place] [address]395 03/12/2025 1:00 PM ROUSTABOUT CREW LEADER Office Visit [facility] Internal Medicine [address] [phone] Mamadou Bowie MD [address] [place] [address] 03/23/2025 8:00 AM ROUSTABOUT CREW LEADER Hospital Encounter [facility] PeriOp Services [address] [place] [address] [place] [phone] Kenya Jennings MD [address] [place] [address] 653645 03/23/2025 8:00 AM ROUSTABOUT CREW LEADER - 03/23/2025 12:05 PM ROUSTABOUT CREW LEADER Surgery [facility] [address] [place] [address] [place] [phone] Kenya Jennings MD [address] [place] [address] 198905 MASTECTOMY, BILATERAL, SIMPLE, NO nipple grafts. OnQ 03/30/2025 10:00 AM ROUSTABOUT CREW LEADER Office Visit [facility] Plastic and Reconstructive Surgery Clinic [address] [phone] Lynn Parks APRN [address] [address] 04/16/2025 1:00 PM ROUSTABOUT CREW LEADER Office Visit [facility] Internal Medicine [address] [phone] Mamadou Bowie MD [address] [place] [address] 05/03/2025 4:00 PM ROUSTABOUT CREW LEADER Office Visit [facility] Plastic and Reconstructive Surgery Clinic [address] [phone] Kenya Jennings MD 420 [facility] 195 [place], [place] [address] 08/17/2025 12:15 PM CDT Office Visit [facility] Dermatology Clinic [place] 909 [facility] 3rd [place] [address] Herber Lopez MD 420 [facility] 98 [place], [place] [address] Scheduled Procedures Name Priority Associated Diagnoses Date/Ti me MASTECTOMY, BILATERAL, FOR GENDER AFFIRMATION Gender dysphoria in adult 03/23/2025 8:00 AM ROUSTABOUT CREW LEADER documented as of this encounter Goals Goal Patient Goal Type Associated Problems Recent Progress Patient-Stated? Author MYC ECC SURG ENROLL Care Plan [facility] ECC SURG ENROLL No Fina Benjamin documented as of this encounter Procedures Procedure Name Priority Date/Time Associated Diagnosis Comments [place] TRANSCRANIAL MAGNETIC STIMULATION TREATMENT,DELIVERY/MANAG EMENT Routine 10/14/2024 11:09 AM CDT Severe recurrent major depression without [...] Noted Time PHQ-9 Depression Total Score: 7 10/15/19 25 9:04 AM CDT documented as of this encounter Care Teams Welding Equipment Repairer Supervisor Relationship Specialty Start Date End Date Mamadou Bowie MD [address] [place] [address] PCP - General 03/18/23 Cindy Ruiz [facility] [address] [place] [address] Resident Internal Medicine 12/07/14 Trevor Espino MD 909 [place] [address] Urology 05/16/16 Jaci Whitlock APRN CNP 420 [facility] 395 [place] [address] Nurse Practitioner - Women's Health 12/14/16 Doris Ricci MD [facility] & [address] [address] Physician Internal Medicine 07/11/20 Yudy Pompa MD [address] [place] [address] [phone] Assigned Cancer Care Provider 08/21/20 Mary Carmen Rodriguez MD 420 [facility] 98 [place] [address] Dermatology 11/09/20 Herber Lopez MD [address] [place] [address] 98 [place], [place] [address] Dermapathology 11/09/20 Gloria Elizalde MD [address] [place] [address] 370675 Resident 12/24/22 Mamadou Bowie MD [address] [place] [address] 040835 Assigned PCP 03/23/23 Makenzie Romano MD [address] [place] [address] [phone] box coverer hand & Neurology - Child & Adolescent Psychiatry 11/08/23 Shani Stephenson MD [address] [place] [address] 082195 Resident Psychiatry 11/08/23 Ita Newton Specialty Carton Maker 06/04/24 Kenya Jennings MD [address] [place] [address] 195 [place] [address] Plastic Surgery 06/04/24 Herber Lopez MD [address] [place] [address] 98 [place] [address] Assigned Dermatology Provider 07/26/24 Сергей Dumont, [facility] High School Tutor 08/13/24 Kenya Jennings MD [address] [place] [address] Assigned Surgical Provider 08/26/24 Luis Dudley MD [address] [place] [address] Assigned Behavioral Health Provider 09/25/24 10/25/24 Carmen Cole PA-C [address] 156515 Assigned Sleep Provider 09/25/24 documented as of this encounter
--- OUTSIDE RECORDS SUMMARY | 2024-10-14 11:00 | XMS_ITS | Encounter Summary ---
Author Organization [facility] Address [address] [place] [address] 25507 Care Team Providers Care Administrative Assistant Front Desk Name Role Phone Cindy Ruiz Unavailable [phone] Trevor Espino MD Unavailable [phone] Jaci Whitlock APRN OPTICAL GOODS DRILL OPERATOR Unavailable + Doris Ricci MD Unavailable [phone] Yudy Pompa MD Unavailable [phone] Mary Carmen Rodriguez MD Unavailable + Herber Lopez MD Unavailable +[phone] Gloria Elizalde MD Unavailable [phone] Mamadou Bowie MD Primary Care Provider [phone] Mamadou Bowie MD Unavailable Makenzie Romano MD Unavailable [phone] Shani Stephenson MD Unavailable [phone] Ita Newton Unavailable Unavailable Kenya Jennings MD Unavailable [phone] Herber Lopez MD Unavailable +[phone] Сергей Dumont [facility] Unavailable Unavailable Kenya Jennings MD Unavailable [phone] Luis Dudley MD Unavailable [phone] Carmen Cole PA-C Unavailable [phone] Reason for Visit * Reason Comments Clinic Care Coordination - Face To Face 6 week TMS check in Encounter Details Date Type Department Care Team (Latest Contact Info) Description 10/14/2024 11:00 AM CDT Allied Health/[facility] [address] [place] [address] Clinic Care Coordination - Face To Face (6... Social History Tobacco Use Types Packs/Day Years [...] relatives? Three times a week 04/02/2024 Attends Ep[employer] Services Not on file 04/02 Active Member of Clubs or Organizations Not on f ile 04/02/2024 Attends Club or Organization Meetings Not on jd e 04/02/2024 Marital Status Not on file 04/02/2024 PHQ-2 Answer Date Recorded PHQ-2 Score 2 10/15/2024 [facility] [place] of Occupat ional Health - Occupational Stress [...] in an abandoned building, in an overnight long-term, or couch-surfing.) Yes 04/03/2024 Are you worried [...] PM CDT Legal Sex Female 3:58 AM BEEKEEPER FARMER Gender Identity other 11/14/2020 10:33 PM CDT Sexual Orientation Lesbian 06/22/2019 4: 20 AM BEEKEEPER FARMER documented as of this encounter Progress Notes * Shellie Humphries RN - 10/14/2024 11:00 AM CDT Physicians: Care Coordination Note SITUATION Gabriela Kraus is a 59 year old person who has been receiving Transcranial Magnetic Stimulation (TMS)at the request of Jesse Arvizu MD. BACKGROUND During course of TMS ASSESSMENT Met with patient today to check on her during TMS course. During today's discussion typewriter ribbon winder and patient discussed: Patient reports that TMS is going well. She reports that she has noticed some pretty significant benefit. She reports that the change in her SI has been profound; notes that she still has the automatic thought however it no longer is appealing to her. She also reports having more energy as well. She also reported that her friend has noticed her texts are different and her therapist reports that she is brighter. Overall patient reports that her experience with TMS has been positive. We also discussed how the MAOI is going. She reports that she has not noticed any positive effects however has had some side effects. We discussed different ways to manage orthostatic hypotension. She verbalized understanding of this and was encouraged to reach out should she had any further questions or concerns before next check in. PHQ 9: 7 # of completed TMS Sessions: 30 PLAN Nursing Interventions: Care Coordination Follow-up plan: RN to continue to follow Shellie Humphries RN documented in this encounter Plan of Treatment Upcoming Encounters Date Type Department Care Team (Latest Contact Info) Description 10/29/2024 11:00 AM CDT Virtual Visit [facility] Psychiatry [address] [phone] 11/23/2024 1:30 PM CDT Office Visit [facility] Mental Health & Addiction [place] [id number] [place] [phone] Melanie Boykin MD [address] [place] [address] 111944 Gloria Elizalde MD [address] [place] [address] 054855 12/03/2024 3:00 PM CDT Office Visit [facility] Psychiatry [address] [phone] Jesse Arvizu MD [address] [place] [address] 145426 12/15/2024 11:40 AM CDT Ancillary Procedure [facility] [place] [facility] [address] [phone] Yudy Pompa MD [address] [place] [address] 9[address] 12/22/2024 11:40 AM CDT Oncology Visit [facility] [address] [place] [address] [phone] Yudy Pompa MD [address] [place] [address] 02/22/2025 12:30 PM CDT Office Visit [facility] Plastic and Reconstructive Surgery Clinic [address] [phone] Kenya Jennings MD [address] [place] [address] 03/12/2025 1:00 PM BEEKEEPER FARMER Office Visit [facility] Internal Medicine [address] [phone] Mamadou Bowie MD [address] [place] [address] 03/23/2025 8:00 AM BEEKEEPER FARMER Hospital Encounter [facility] PeriOp Services [address] [place] [address] [place] [phone] Kenya Jennings MD [address] [place] [address] 26468 03/23/2025 8:00 AM BEEKEEPER FARMER - 03/23/2025 12:05 PM BEEKEEPER FARMER Surgery [facility] [address] [place] [address] [place] [phone] Kenya Jennings MD [address] [place] [address] 96183 MASTECTOMY, BILATERAL, SIMPLE, NO nipple grafts. OnQ 03/30/2025 10:00 AM BEEKEEPER FARMER Office Visit [facility] Plastic and Reconstructive Surgery Clinic [address] [phone] Lynn Parks APRN CNP [address] [place] [address] 04/16/2025 1:00 PM BEEKEEPER FARMER Office Visit [facility] Internal Medicine [address] [phone] Mamadou Bowie MD [address] [place] [address] [phone] 05/03/2025 4:00 PM BEEKEEPER FARMER Office Visit [facility] Plastic and Reconstructive Surgery Clinic [address] [phone] Kenya Jennings MD [address] [place] [address] 195 [place], [place] 732435 08/17/2025 12:15 PM CDT Office Visit [facility] Dermatology Clinic [address] [phone] Herber Lopez MD [address] [place] [address] 98 [place], [place] 065585 Scheduled Procedures Name Priority Associated Diagnoses Date/Ti me MASTECTOMY, BILATERAL, FOR GENDER AFFIRMATION Gender dysphoria in adult 03/23/2025 8:00 AM BEEKEEPER FARMER documented as of this encounter Goals Goal [...] documented as of this encounter Care Teams Administrative Assistant Front Desk Relationship Specialty Start Date End Date Mamadou Bowie MD [address] [place] [address] [phone] PCP - General 03/18/23 [address] Ru[address] [place], [place] [phone] Resident Internal Medicine 12/07/14 Trevor Espino MD [address] [place] [address] Urology 05/16/16 Jaci Whitlock APRN CNP [address] [place] [address] Nurse Practitioner - Women's Health 12/14/16 Doris Ricci MD [facility] & [address] [address] Physician Internal Medicine 07/11/20 Yudy Pompa MD [address] [place] [address] [phone] Assigned Cancer Care Provider 08/21/20 Mary Carmen Rodriguez MD [address] [place] [address] 98 [place] [address] Dermatology 11/09/20 Herber Lopez MD [address] [place] [address] 98 [place], [place] [phone] MD Dermapathology 11/09/20 Gloria Elizalde MD 420 [place], [place] 534955 Resident 12/24/22 Mamadou Bowie MD 909 [place], [place] 568825 Assigned PCP 03/23/23 Makenzie Romano MD [address] [phone] [place] [address] all round butcher & Neurology - Child & Adolescent Psychiatry 11/08/23 Shani Stephenson MD 420 [place] [address] Resident Psychiatry 11/08/23 Ita Newton Specialty Indian Blanket Weaver 06/04/24 Kenya Jennings MD 420 [facility] 195 [place], [place] 282755 Plastic Surgery 06/04/24 Herber Lopez MD 420 [facility] 98 [place], [place] 222645 Assigned Dermatology Provider 07/26/24 Сергей Dumont [facility] Autocutter 08/13/24 Kenya Jennings MD 420 [facility] 195 [place], [place] 398615 Assigned Surgical Provider 08/26/24 Luis Dudley MD 240 [place], [place] 343844 Assigned Behavioral Health Provider 09/25/24 10/25/24 Carmen Cole PA-C [address] [place] [address] [place] [address] Assigned Sleep Provider 09/25/24 documented as of this encounter
--- OUTSIDE RECORDS SUMMARY | 2024-10-15 11:00 | XMS_ITS | Encounter Summary ---
Author Organization [place] [facility] Address [address] [place] [address] 6[address] Care Team Providers Care Surgical Services Tech Name Role Phone Cindy Ruiz Unavailable [phone] Trevor Espino MD Unavailable [phone] Jaci Whitlock APRN RESEARCH PROGRAM INTERN Unavailable + Doris Ricci MD Unavailable [phone] Yudy Pompa MD Unavailable [phone] Mary Carmen Rodriguez MD Unavailable + Herber Lopez MD Unavailable [phone] Gloria Elizalde MD Unavailable [phone] Mamadou Bowie MD Primary Care Provider [phone] Mamadou Bowie MD Unavailable Makenzie Romano MD Unavailable [phone] Shani Stephenson MD Unavailable [phone] Ita Newton Unavailable Unavailable Kenya Jennings MD Unavailable [phone] Herber Lopez MD Unavailable [phone] Сергей Dumont [facility] Unavailable Unavailable Kenya Jennings MD Unavailable [phone] Luis Dudley MD Unavailable [phone] Carmen Cole PA-C Unavailable [phone] Encounter Details Date Type Department Care Team (Late st Contact Info) Description 10/15/2024 11:00 AM CDT [facility] [address] [place] [address] Severe episode of recurrent major [...] relatives? Three times a week 04/02/2024 Attends Temple Services Not on file 04/02 Active Member of Clubs or Organizations Not on f ile 04/02/2024 Attends Club or Organization Meetings Not on jd e 04/02/2024 Marital Status Not on file 04/02/2024 PHQ-2 Answer Date Recorded PHQ-2 Score 2 10/16/2024 [facility] [place] of Occupat ional Health - Occupational Stress [...] in an abandoned building, in an overnight assisted, or couch-surfing.) Yes 04/03/2024 Are you worried [...] PM CDT Legal Sex Female 3:58 AM CHIEF CLINICAL OFFICER Gender Identity other 11/14/2020 10:33 PM CDT Sexual Orientation Lesbian 06/22/2019 4: 20 AM CHIEF CLINICAL OFFICER documented as of this encounter Progress Notes * Jose Carlos Chapis - 10/15/2024 11:00 AM CDT Images from the original note were not included. Interventional Psychiatry Program [address] [facility], [address] [place] [address] TMS Procedure Note aGbriela Kraus Age: [age] year old Date of : 1965 Gabriela Kraus comes into clinic today at the request of, Jesse Arvizu MD, ordering provider for TMS treatments. Pre-Procedure: History and Physical: Reviewed in medical record Consent signed by: Gabriela Kraus for this course of treatment on: 09/02/2024 Clinical Narrative: Patient tolerated treatment. Car issues. Indications for TMS: MDD, recurrent, severe; 4+ medication trials (from 2+ classes) ineffective; Psychotherapy ineffective Procedure Diagnosis: MDD, severe, recurrent F33.2 Treatment Hx: Treatment number this series: 31 Total lifetime treatment number: 31 Allergies Allergen Reactions Adhesive Tape Rash Sulfa Antibiotics Rash LMP (LMP Unknown) Pause for the Cause Right patient: Yes Right procedure/correct coil: Yes; rTMS; cpt 02509; H1 coil. Earplugs in place: Yes Procedure [...] Energy: 61% (120%MT) Trains: 55 *USE SPACER* 10/13/2024 11:35 AM 10/14/2024 9:04 AM 10/15/2024 11:20 AM PHQ-9 SCORE PHQ-9 Total Score MyChart 7 (Mild depression) PHQ-9 Total Score 7 7 7 Patient-reported Date MADRS QIDS PHQ-9 09/02/24 19 13 11 09/11/24 12 12 09/18/24 12 10 09/25/24 8 7 10/02/24 9 7 10/09/24 6 8 Plan - Continue TMS treatments This service provided today was under the supervising provider of the day, Eliezer Mcneal MD, who was available if needed. [place] TMS Community Assistant [facility] Mental [facility] Neuromodulation documented in this encounter Plan of Treatment Upcoming Encounters Date Type Department Care Team (Latest Contact Info) Description 10/29/2024 11:00 AM CDT Virtual Visit [facility] Psychiatry Clinic [address] [place] [address] [place] [phone] 11/23/2024 1:30 PM CDT Office Visit [facility] Mental Health & Addiction [address] [address] [phone] Melanie Boykin MD [address]80 [place] [address] Gloria Elizalde MD [address] [place] [address] 236555 12/03/2024 3:00 PM CDT [facility] [address] [facility] [address] [place] [phone] Jesse Arvizu MD [address] [place] [address] 12/15/2024 11:40 AM CDT Ancillary Procedure [facility] Clinic [address] [place] [phone] Yudy Pompa MD [address] [place] [address] 852945 12/22/2024 11:40 AM CDT Oncology Visit [facility] [address] [place] [phone] Yudy Pompa MD [address] [place] [address] 359505 02/22/2025 12:30 PM CDT Office Visit [facility] Plastic and Reconstructive Surgery Clinic [address] 4th [place] [phone] Kenya Jennings MD [address] [place] [address] 195 [place], [place] 316405 03/12/2025 1:00 PM CHIEF CLINICAL OFFICER Office Visit [facility] Internal Medicine [address] [phone] Mamadou Bowie MD [address] [place] [address] 03/23/2025 8:00 AM CHIEF CLINICAL OFFICER Hospital Encounter [facility] PeriOp Services [address] [place] [address] [place] [phone] Kenya Jennings MD [address] [place] [address] 805295 03/23/2025 8:00 AM CHIEF CLINICAL OFFICER - 03/23/2025 12:05 PM CHIEF CLINICAL OFFICER Surgery [facility] PeriOp Services [address] [place] [address] [place] [phone] Kenya Jennings MD [address] [place] [address] 978625 MASTECTOMY, BILATERAL, SIMPLE, NO nipple grafts. OnQ 03/30/2025 10:00 AM CHIEF CLINICAL OFFICER Office Visit [facility] Plastic and Reconstructive Surgery Clinic [address] [phone] Lynn Parks APRN [address] [address] 04/16/2025 1:00 PM CHIEF CLINICAL OFFICER Office Visit [facility] Internal Medicine [address] [phone] Mamadou Bowie MD [address] [place] [address] 05/03/2025 4:00 PM CHIEF CLINICAL OFFICER Office Visit [facility] Plastic and Reconstructive Surgery Clinic [address] [phone] Kenya Jennings MD 420 [facility] 195 [place], [place] 550735 08/17/2025 12:15 PM CDT Office Visit [facility] Dermatology Clinic [place] [address] [facility] 3rd [place] [address] Herber Lopez MD [address] [place] [address] 98 [place], [place] 860045 Scheduled Procedures Name Priority Associated Diagnoses Date/Ti me MASTECTOMY, BILATERAL, FOR GENDER AFFIRMATION Gender dysphoria in adult 03/23/2025 8:00 AM CHIEF CLINICAL OFFICER documented as of this encounter Goals Goal Patient Goal Type Associated Problems Recent Progress Patient-Stated? Author MYC ECC SURG ENROLL Care Plan MyC ECC SURG ENROLL No Fina Benjamin documented as of this encounter Procedures Procedure Name Priority Date/Time Associated Diagnosis Comments CA TRANSCRANIAL MAGNETIC STIMULATION TREATMENT,DELIVERY/MANAG EMENT Routine 10/15/2024 11:22 AM CDT Severe episode of recurrent major depressive disorder, without psychotic features (H) documented in this encounter Visit Diagnoses Diagnosis Severe episode of recurrent major depressive disorder, without psychotic features (H)- Primary Gender dysphoria in adult documented in this encounter Additional Health Concerns Active Problems Noted Date Diagnosed Date MyC ECC SURG ENROLL 09/11/2024 Assessment Noted Time PHQ-9 Depression Total Score: 7 10/16/19 25 11:21 AM CDT documented as of this encounter Care Teams Surgical Services Tech Relationship Specialty Start Date End Date Mamadou Bowie MD [address] [place] [address]459 PCP - General 03/18/23 Cindy Ruiz [address] [place] [address] Resident Internal Medicine 12/07/14 Trevor Espino MD [address] [place] [address] Urology 05/16/16 Jaci Whitlock APRN CNP 420 [facility] 395 [place] [address] Nurse Practitioner - Women's Health 12/14/16 Doris Ricci MD [facility] & [address] [address] Physician Internal Medicine 07/11/20 Yudy Pompa MD [address] [place] [address] 131475 Assigned Cancer Care Provider 08/21/20 Mary Carmen Rodriguez MD 420 [facility] 98 [place], [place] 610725 Dermatology 11/09/20 Herber Lopez MD [address] [place] [address] 722905 Dermapathology 11/09/20 Gloria Elizalde MD [address] [place] [address] 778155 Resident 12/24/22 Mamadou Bowie MD [address] [place] [address] 653255 Assigned PCP 03/23/23 Makenzie Romano MD [address] [place] [address] 801154 mold preparer & Neurology - Child & Adolescent Psychiatry 11/08/23 Shani Stephenson MD [address] [place] [address] 996855 Resident Psychiatry 11/08/23 Ita Newton Specialty Flat Surfacer Jewel 06/04/24 Kenya Jenninsg MD [address] [place] [address] 602885 Plastic Surgery 06/04/24 Herber Lopez MD [address] [place] [address] 984655 Assigned Dermatology Provider 07/26/24 Сергей Dumont [facility] Dough Cutting Machine Operator 08/13/24 Kenya Jennings MD [address] [place] [address] 672555 Assigned Surgical Provider 08/26/24 Luis Dudley MD [address] [place] [address] [phone] Assigned Behavioral Health Provider 09/25/24 10/25/24 Carmen Cole PA-C [address] [facility] [address] [address] Assigned Sleep Provider 09/25/24 documented as of this encounter
--- OUTSIDE RECORDS SUMMARY | 2024-10-16 11:00 | XMS_ITS | Encounter Summary ---
Author Organization [place] Address [address] [place] [address] Care Team Providers Care Brush Polisher Name Role Phone Cindy Ruiz Unavailable [phone] Trevor Espino MD Unavailable [phone] Jaci Whitlock APRN MISSILE MECHANIC Unavailable + Doris Ricci MD Unavailable Yudy Pompa MD Unavailable [phone] Mary Carmen Rodriguez MD Unavailable + Herber Lopez MD Unavailable [phone] Gloria Elizalde MD Unavailable [phone] Mamadou Bowie MD Primary Care Provider [phone] Mamadou Bowie MD Unavailable Makenzie Romano MD Unavailable [phone] Shani Stephenson MD Unavailable [phone] Ita Newton Unavailable Unavailable Kenya Jennings MD Unavailable [phone] Herber Lopez MD Unavailable [phone] Сергей Dumont [facility] Unavailable Unavailable Kenya Jennings MD Unavailable [phone] Luis Dudley MD Unavailable [phone] Carmen Cole PA-C Unavailable [phone] Encounter Details Date Type Department Care Team (Late st Contact Info) Description 10/16/2024 11:00 AM CDT Office Visit [facility] [address] [place] [address] Severe recurrent major depression without [...] relatives? Three times a week 04/02/2024 Attends Bahai Services Not on file 04/02 Active Member of Clubs or Organizations Not on f ile 04/02/2024 Attends Club or Organization Meetings Not on jd e 04/02/2024 Marital Status Not on file 04/02/2024 PHQ-2 Answer Date Recorded PHQ-2 Score 2 10/16/2024 [facility] - [...] PM CDT Legal Sex Female 3:58 AM RESTRICTIVE PREPARATION OPERATOR Gender Identity other 11/14/2020 10:33 PM CDT Sexual Orientation Lesbian 06/22/2019 4: 20 AM RESTRICTIVE PREPARATION OPERATOR documented as of this encounter Progress Notes * Stefanie Hartman RN - 10/16/2024 11:00 AM CDT Images from the original note were not included. Interventional Psychiatry Program [address] [place] [address], [address] [place] [address] TMS Procedure Note Gabriela Kraus Age: [age] year old Date of : 1965 Gabriela Kraus comes into clinic today at the request of, Jesse Arvizu MD, ordering provider for TMS treatments. Pre-Procedure: History and Physical: Reviewed in medical record Consent signed by: Gabriela Kraus for this course of treatment on: 09/02/2024 Clinical Narrative: Patient tolerated treatment. Going to an estate sale. Indications for TMS: MDD, recurrent, severe; 4+ medication trials (from 2+ classes) ineffective; Psychotherapy ineffective Procedure Diagnosis: MDD, severe, recurrent F33.2 Treatment Hx: Treatment number this series: 32 Total lifetime treatment number: 32 Allergies Allergen Reactions Adhesive Tape Rash Sulfa Antibiotics Rash LMP (LMP Unknown) Pause for the Cause Right patient: Yes Right procedure/correct coil: Yes; rTMS; cpt 84642; H1 coil. Earplugs in place: Yes Procedure [...] Energy: 61% (120%MT) Trains: 55 *USE SPACER* 10/14/2024 9:04 AM 10/15/2024 11:20 AM 10/16/2024 9:14 AM PHQ-9 SCORE PHQ-9 Total Score MyChart 7 (Mild depression) 7 (Mild depression) PHQ-9 Total Score 7 7 7 Patient-reported Date MADRS QIDS PHQ-9 09/02/24 19 13 11 09/11/24 12 12 09/18/24 12 10 09/25/24 8 7 10/02/24 9 7 10/09/24 6 8 10/16/24 8 7 Plan - Continue TMS treatments This service provided today was under the supervising provider of the day, Elias Arvizu MD, who was available if needed. Stefanie Hartman RN [facility] Neuromodulation documented in this encounter Plan of Treatment Upcoming Encounters Date Type Department Care Team (Latest Contact Info) Description 10/29/2024 11:00 AM CDT Virtual Visit [facility] [address] [facility] 255 [place] [address] 11/23/2024 1:30 PM CDT Office Visit [facility] Mental Health & Addiction [address] [phone] Melanie Boykin MD [address] [place], [place] 2332[address] Gloria Elizalde MD [address] [place] [address] 455285 12/03/2024 3:00 PM CDT Office Visit [facility] [address] [facility] [address] [place] [phone] Jesse Arvizu MD 5775 [place] [address] 12/15/2024 11:40 AM CDT Ancillary Procedure [facility] Imaging Center CT Clinic [address] 1st [place] [phone] Yudy Pompa MD [address] [place] [address] 721395 12/22/2024 11:40 AM CDT Oncology Visit [facility] [address] [place] [phone] Yudy Pompa MD [address] [place] [address] 297285 02/22/2025 12:30 PM CDT Office Visit [facility] Plastic and Reconstructive Surgery Clinic [address] 4th [place] [phone] Kenya Jennings MD [address] [place] [address] 195 [place], [place] [phone] 03/12/2025 1:00 PM RESTRICTIVE PREPARATION OPERATOR Office Visit [facility] Internal Medicine [address] [phone] Mamadou Bowie MD [address] [place] [address] 03/23/2025 8:00 AM RESTRICTIVE PREPARATION OPERATOR Hospital Encounter [facility] [place] [facility] [address] [place] [phone] Kenya Jennings MD [address] [place] [address] 806245 03/23/2025 8:00 AM RESTRICTIVE PREPARATION OPERATOR - 03/23/2025 12:05 PM RESTRICTIVE PREPARATION OPERATOR Surgery [facility] [place] [facility] [address] [place] [phone] Kenya Jennings MD [address] [place] [address] 435325 MASTECTOMY, BILATERAL, SIMPLE, NO nipple grafts. OnQ 03/30/2025 10:00 AM RESTRICTIVE PREPARATION OPERATOR Office Visit [facility] Plastic and Reconstructive Surgery [address] [phone] Lynn Parks APRN [address] [address] 04/16/2025 1:00 PM RESTRICTIVE PREPARATION OPERATOR Office Visit [facility] Internal Medicine [address] [phone] Mamadou Bowie MD [address] [place] [address] 05/03/2025 4:00 PM RESTRICTIVE PREPARATION OPERATOR Office Visit [facility] Plastic and Reconstructive Surgery [facility] [place] [address] [place] [address] 4th [place] [address] Kenya Jennings MD 420 [facility] 195 [place], [place] 837095 08/17/2025 12:15 PM CDT Office Visit [facility] Dermatology [facility] [place] [address] [place] [address] 3rd [place] [address] Herber Lopez MD 420 [facility] 98 [place], [place] 661105 Scheduled Procedures Name Priority Associated Diagnoses Date/Ti me MASTECTOMY, BILATERAL, FOR GENDER AFFIRMATION Gender dysphoria in adult 03/23/2025 8:00 AM RESTRICTIVE PREPARATION OPERATOR documented as of this encounter Goals Goal Patient Goal Type Associated Problems Recent Progress Patient-Stated? Author MYC ECC SURG ENROLL Care Plan [facility] No Fina Benjamin documented as of this encounter Procedures Procedure Name Priority Date/Time Associated Diagnosis Comments [place] TRANSCRANIAL MAGNETIC STIMULATION TREATMENT,DELIVERY/MANAG EMENT Routine 10/16/2024 11:10 AM CDT Severe recurrent major depression [...] Noted Time PHQ-9 Depression Total Score: 7 10/17/19 25 9:14 AM CDT documented as of this encounter Care Teams Brush Polisher Relationship Specialty Start Date End Date Mamadou Bowie MD [address] [place] [address] [phone] PCP - General 03/18/23 Cindy Ruiz [facility] [address] [place] [address] Resident Internal Medicine 12/07/14 Trevor Espino MD 909 [place], [place] [phone] Urology 05/16/16 Jaci Whitlock APRN CNP 420 [facility] 395 [place], [place] 803325 Nurse Practitioner - Women's Health 12/14/16 Doris Ricci MD [facility] & [address] [address] Physician Internal Medicine 07/11/20 Yudy Pompa MD [address] [place] [address] [phone] Assigned Cancer Care Provider 08/21/20 Mary Carmen Rodriguez MD 420 [facility] 98 [place], [place] 954015 Dermatology 11/09/20 Herber Lopez MD 420 [facility] 98 [place], [place] 495885 Dermapathology 11/09/20 Gloria Elizalde MD 420 [place], [place] 508685 Resident 12/24/22 Mamadou Bowie MD [address] [place] [address] 346075 Assigned PCP 03/23/23 Makenzie Romano MD [address] [place], [place] [address]E F256 [place] [address] wood router hand & Neurology - Child & Adolescent Psychiatry 11/08/23 Shani Stephenson MD 420 [place] [address] Resident Psychiatry 11/08/23 Ita Newton Specialty Records Clerk 06/04/24 Kenya Jennings MD 420 [facility] 195 [place], [place] 840985 Plastic Surgery 06/04/24 Herber Lopez MD 420 [facility] 98 [place] [address] Assigned Dermatology Provider 07/26/24 Сергей Dumont, [facility] Upkeep Mechanic 08/13/24 Kenya Jennings MD 420 [facility] 195 [place], [place] 449965 Assigned Surgical Provider 08/26/24 Luis Dudley MD 240 [place] [address] Assigned Behavioral Health Provider 09/25/24 10/25/24 Carmen Cole PA-C [address] [facility] [address] [place] [address] [place] [address] Assigned Sleep Provider 09/25/24 documented as of this encounter
--- OUTSIDE RECORDS SUMMARY | 2024-10-19 11:00 | XMS_ITS | Encounter Summary ---
Author Organization [place] Address [address] [place] [address] Care Team Providers Care Finishing Machine Operator Name Role Phone Cindy Ruiz Unavailable [phone] Trevor Espino MD Unavailable [phone] Jaci Whitlock APRN EDGE BANDER OPERATOR Unavailable + Doris Ricci MD Unavailable Yudy Pompa MD Unavailable [phone] Mary Carmen Rodriguez MD Unavailable + Herber Lopez MD Unavailable [phone] Gloria Elizalde MD Unavailable [phone] Mamadou Bowie MD Primary Care Provider [phone] Mamadou Bowie MD Unavailable Makenzie Romano MD Unavailable [phone] Shani Stephenson MD Unavailable [phone] Ita Newton Unavailable Unavailable Kenya Jennings MD Unavailable [phone] Herber Lopez MD Unavailable [phone] Сергей Dumont [facility] Unavailable Unavailable Kenya Jennings MD Unavailable [phone] Luis Dudley MD Unavailable [phone] Carmen Cole PA-C Unavailable [phone] Encounter Details Date Type Department Care Team (Late st Contact Info) Description 10/19/2024 11:00 AM CDT Office Visit [facility] [address] [place] [address] Severe recurrent major depression without [...] relatives? Three times a week 04/02/2024 Attends Restoration Services Not on file 04/02 Active Member of Clubs or Organizations Not on f ile 04/02/2024 Attends Club or Organization Meetings Not on jd e 04/02/2024 Marital Status Not on file 04/02/2024 PHQ-2 Answer Date Recorded PHQ-2 Score 3 10/20/2024 [facility] - [...] PM CDT Legal Sex Female 3:58 AM SUPERVISOR PAINT Gender Identity other 11/14/2020 10:33 PM CDT Sexual Orientation Lesbian 06/22/2019 4: 20 AM SUPERVISOR PAINT documented as of this encounter Progress Notes * Brittnee Kiser - 10/19/2024 11:00 AM CDT Images from the original note were not included. Interventional Psychiatry Program [address] [place] [address], [address] [place] [address] TMS Procedure Note Gabriela Kraus Age: [age] year old Date of : 1965 Gabriela Kraus comes into clinic today at the request of, Jesse Arvizu MD, ordering provider for TMS treatments. Pre-Procedure: History and Physical: Reviewed in medical record Consent signed by: Gabriela Esteban Nayana for this course of treatment on: 09/02/2024 Clinical Narrative: Patient tolerated treatment. Had a migraine most of the weekend. Indications for TMS: MDD, recurrent, severe; 4+ medication trials (from 2+ classes) ineffective; Psychotherapy ineffective Procedure Diagnosis: MDD, severe, recurrent F33.2 Treatment Hx: Treatment number this series: 33 Total lifetime treatment number: 33 Allergies Allergen Reactions Adhesive Tape Rash Sulfa Antibiotics Rash LMP (LMP Unknown) Pause for the Cause Right patient: Yes Right procedure/correct coil: Yes; rTMS; cpt 07252; H1 coil. Earplugs in place: Yes Procedure [...] Energy: 61% (120%MT) Trains: 55 *USE SPACER* 10/15/2024 11:20 AM 10/16/2024 9:14 AM 10/19/2024 8:41 AM PHQ-9 SCORE PHQ-9 Total Score MyChart 7 (Mild depression) 8 (Mild depression) PHQ-9 Total Score 7 7 8 Patient-reported Date MADRS QIDS PHQ-9 09/02/24 19 13 11 09/11/24 12 12 09/18/24 12 10 09/25/24 8 7 10/02/24 9 7 10/09/24 6 8 10/16/24 8 7 Plan - Continue TMS treatments This service provided today was under the supervising provider of the day, Jesse Arvizu MD, who was available if needed. Brittnee Kiser, TMS Dirt Bike Mechanic [facility] Neuromodulation documented in this encounter Plan of Treatment Upcoming Encounters Date Type Department Care Team (Latest Contact Info) Description 10/29/2024 11:00 AM CDT Virtual Visit [facility] Psychiatry Clinic [address] [facility] [address] [place] [address] 11/23/2024 1:30 PM CDT Office Visit [facility] Mental Health & Addiction [address] F[address] [phone] Melanie Boykin MD 5800 [place], [place] 045834 Gloria Elizalde MD [address] [place] [address] 877935 12/03/2024 3:00 PM CDT Office [facility] 57[address] [facility] [address] [place] [phone] Jesse Arvizu MD 5775 [place], [place] 466866 12/15/2024 11:40 AM CDT Ancillary Procedure [facility] Imaging Center CT Clinic [address] 1st [place] [phone] Yudy Pompa MD [address] [place] [address] 737075 12/22/2024 11:40 AM CDT Oncology Visit [facility] [address] [place] [phone] Yudy Pompa MD [address] [place] [address] 374865 02/22/2025 12:30 PM CDT Office Visit [facility] Plastic and Reconstructive Surgery Clinic [address] 4th [place] [phone] Kenya Jennings MD 420 [facility] 195 [place], [place] [phone] 03/12/2025 1:00 PM SUPERVISOR PAINT Office Visit [facility] Internal Medicine [address] [phone] Mamadou Bowie MD [address] [place] [address] 03/23/2025 8:00 AM SUPERVISOR PAINT Hospital Encounter [facility] [address] [place] [address] [phone] Kenya Jennings MD [address] [place] [address] 868675 03/23/2025 8:00 AM SUPERVISOR PAINT - 03/23/2025 12:05 PM SUPERVISOR PAINT Surgery [facility] [address] [place] [address] [phone] Kenya Jennings MD [address] [place] [address] MASTECTOMY, BILATERAL, SIMPLE, NO nipple grafts. OnQ 03/30/2025 10:00 AM SUPERVISOR PAINT Office Visit [facility] Plastic and Reconstructive Surgery Clinic [address] [phone] Lynn Parks APRN [address] [address] 04/16/2025 1:00 PM SUPERVISOR PAINT Office Visit [facility] Internal Medicine [address] [phone] Mamadou Bowie MD [address] [place] [address] 05/03/2025 4:00 PM SUPERVISOR PAINT Office Visit [facility] Plastic and Reconstructive Surgery Clinic [address] 4th [place] [address] Kenya Jennings MD 420 [facility] 195 [place], [place] 18[address]15 08/17/2025 12:15 PM CDT Office Visit [facility] Dermatology Clinic [place] [address] [place] [address] 3rd [place] [address] Herber Lopez MD [address] [place] [address] 98 [place], [place] [phone] Scheduled Procedures Name Priority Associated Diagnoses Date/Ti me MASTECTOMY, BILATERAL, FOR GENDER AFFIRMATION Gender dysphoria in adult 03/23/2025 8:00 AM SUPERVISOR PAINT documented as of this encounter Goals Goal Patient Goal Type Associated Problems Recent Progress Patient-Stated? Author MYC ECC SURG ENROLL Care Plan [facility] ECC SURG ENROLL No Fina Benjamin documented as of this encounter Procedures Procedure Name Priority Date/Time Associated Diagnosis Comments IN TRANSCRANIAL MAGNETIC STIMULATION TREATMENT,DELIVERY/MANAG EMENT Routine 10/19/2024 11:13 AM CDT Severe recurrent major depression without [...] Noted Time PHQ-9 Depression Total Score: 8 10/20/19 25 8:41 AM CDT documented as of this encounter Care Teams Finishing Machine Operator Relationship Specialty Start Date End Date Mamadou Bowie MD [address] [place] [address] [phone] PCP - General 03/18/23 Cindy Ru[place] [address] Resident Internal Medicine 12/07/14 Trevor Espino MD 909 [place], [place] 020345 Urology 05/16/16 Jaci Whitlock APRN EDGE BANDER OPERATOR 420 [facility] 395 [place], [place] 303085 Nurse Practitioner - Women's Health 12/14/16 Doris Ricci MD [facility] & [address] [phone] Physician Internal Medicine 07/11/20 Yudy Pompa MD [address] [place] [address] 765225 Assigned Cancer Care Provider 08/21/20 Mary Carmen Rodriguez MD 420 [facility] 98 [place], [place] 750195 Dermatology 11/09/20 Herber Lopez MD 420 [facility] 98 [place], [place] [address]235 Dermapathology 11/09/20 Gloria Elizalde MD 420 [place], [place] 104305 Resident 12/24/22 Mamadou Bowie MD [address] [place] [address] 315435 Assigned PCP 03/23/23 Makenzie Romano MD [address] [place] [address] [place] [address] mining manager & Neurology - Child & Adolescent Psychiatry 11/08/23 Shani Stephenson MD 420 [place] [address] Resident Psychiatry 11/08/23 Ita Newton Specialty Architectural Design Lecturer 06/04/24 Kenya Jennings MD 420 [facility] 195 [place] [address] Plastic Surgery 06/04/24 Herber Lopez MD 420 [facility] 98 [place] [address] Assigned Dermatology Provider 07/26/24 Сергей Dumont, [facility] Mandarin Tutor 08/13/24 Kenya Jennings MD 420 [facility] 195 [place], [place] 310385 Assigned Surgical Provider 08/26/24 Luis Dudley MD 240 [place] [address] Assigned Behavioral Health Provider 09/25/24 10/25/24 Carmen Cole PA-C [address] [facility] [address] [place] [address] [place] [address] Assigned Sleep Provider 09/25/24 documented as of this encounter
--- OUTSIDE RECORDS SUMMARY | 2024-10-20 11:00 | XMS_ITS | Encounter Summary ---
Author Organization [facility] Address [address] [place] [address] Care Team Providers Care Cobol Developer Name Role Phone Cindy Ruiz Unavailable [phone] Trevor Espino MD Unavailable [phone] Jaci Whitlock APRN EPIC AMBULATORY ANALYST Unavailable + Doris Ricci MD Unavailable Yudy Pompa MD Unavailable Mary Carmen Rodriguez MD Unavailable + Herber Lopez MD Unavailable [phone] Gloria Elizalde MD Unavailable [phone] Mamadou Bowie MD Primary Care Provider [phone] Mamadou Bowie MD Unavailable Makenzie Romano MD Unavailable [phone] Shani Stephenson MD Unavailable [phone] Ita Newton Unavailable Unavailable Kenya Jennings MD Unavailable [phone] Herber Lopez MD Unavailable [phone] Сергей Dumont [facility] Unavailable Unavailable Kenya Jennings MD Unavailable [phone] Luis Dudley MD Unavailable [phone] Carmen Cole PA-C Unavailable [phone] Encounter Details Date Type Department Care Team (Late st Contact Info) Description 10/20/2024 11:00 AM CDT Office [facility] [address] [place] [address] Severe recurrent major depression without [...] relatives? Three times a week 04/02/2024 Attends Protestant Services Not on file 04/02 Active Member of Clubs or Organizations Not on f ile 04/02/2024 Attends Club or Organization Meetings Not on jd e 04/02/2024 Marital Status Not on file 04/02/2024 PHQ-2 Answer Date Recorded PHQ-2 Score 2 10/21/2024 [facility] - [...] in an abandoned building, in an overnight snf, or couch-surfing.) Yes 04/03/2024 Are you worried [...] PM CDT Legal Sex Female 3:58 AM HYDRATION PLANT OPERATOR Gender Identity other 11/14/2020 10:33 PM CDT Sexual Orientation Lesbian 06/22/2019 4: 20 AM HYDRATION PLANT OPERATOR documented as of this encounter Progress Notes * Chapis Branch - 10/20/2024 11:00 AM CDT Images from the original note were not included. Interventional Psychiatry Program [address] [place] [address], [address] [place] [address] TMS Procedure Note Gabriela Kraus Age: [age] year old Date of : 1965 Gabriela Kraus comes into clinic today at the request of, Jesse Arvizu MD, ordering provider for TMS treatments. Pre-Procedure: History and Physical: Reviewed in medical record Consent signed by: Gabriela Esteban Nayana for this course of treatment on: 09/02/2024 Clinical Narrative: Patient tolerated treatment. Going to try and get some yard work done. Indications for TMS: MDD, recurrent, severe; 4+ medication trials (from 2+ classes) ineffective; Psychotherapy ineffective Procedure Diagnosis: MDD, severe, recurrent F33.2 Treatment Hx: Treatment number this series: 34 Total lifetime treatment number: 34 Allergies Allergen Reactions Adhesive Tape Rash Sulfa Antibiotics Rash LMP (LMP Unknown) Pause for the Cause Right patient: Yes Right procedure/correct coil: Yes; rTMS; cpt 06845; H1 coil. Earplugs in place: Yes Procedure [...] Energy: 61% (120%MT) Trains: 55 *USE SPACER* 10/16/2024 9:14 AM 10/19/2024 8:41 AM 10/20/2024 11:03 AM PHQ-9 SCORE PHQ-9 Total Score MyChart 7 (Mild depression) 8 (Mild depression) PHQ-9 Total Score 7 8 8 Patient-reported Date MADRS QIDS PHQ-9 09/02/24 19 13 11 09/11/24 12 12 09/18/24 12 10 09/25/24 8 7 10/02/24 9 7 10/09/24 6 8 10/16/24 8 7 Plan - Continue TMS treatments This service provided today was under the supervising provider of the day, Ulisses Mccartney MD, who was available if needed. Chapis Branch, TMS Nerve Specialist [facility] Neuromodulation documented in this encounter Plan of Treatment Upcoming Encounters Date Type Department Care Team (Latest Contact Info) Description 10/29/2024 11:00 AM CDT Virtual Visit [facility] [address] [place] [address] 11/23/2024 1:30 PM CDT Office Visit [facility] Mental Health & Addiction [address] [phone] Melanie Boykin MD [address] [place], [place] [address] Gloria Elizalde MD [address] [place] [address] [phone] 12/03/2024 3:00 PM CDT [facility] [address] [place] [phone] Jesse Arvizu MD [address] [place], [place] [address] 12/15/2024 11:40 AM CDT Ancillary Procedure [facility] Imaging Center [facility] Clinic [address] 1st [place] [phone] Yudy Pompa MD [address] [place] [address] 12/22/2024 11:40 AM CDT Oncology Visit [facility] [address] [place] [phone] Yudy Pompa MD [address] [place] [address] [phone] 02/22/2025 12:30 PM CDT Office Visit [facility] Re[facility] [address] 4th [place] [phone] Kenya Jennings MD [address] [facility] [address] [place], [place] [phone] 03/12/2025 1:00 PM HYDRATION PLANT OPERATOR Office Visit [facility] Internal Medicine [address] [phone] Mamadou Bowie MD [address] [place] [address] 03/23/2025 8:00 AM HYDRATION PLANT OPERATOR Hospital Encounter [facility] PeriOp Services [address] [place] [address] [phone] Kenya Jennings MD [address] [place] [address] [phone] 03/23/2025 8:00 AM HYDRATION PLANT OPERATOR - 03/23/2025 12:05 PM HYDRATION PLANT OPERATOR Surgery [facility] [address] [place] [phone] Kenya Jennings MD [address] [place] [address] MASTECTOMY, BILATERAL, SIMPLE, NO nipple grafts. OnQ 03/30/2025 10:00 AM HYDRATION PLANT OPERATOR Office Visit [facility] [address] [phone] Lynn Parks APRN [address] [address] 04/16/2025 1:00 PM HYDRATION PLANT OPERATOR Office Visit [facility] Internal Medicine [address] [phone] Mamadou Bowie MD [address] [place] [address] 05/03/2025 4:00 PM HYDRATION PLANT OPERATOR Office Visit [facility] [address] 4th [place] [address] Kenya Jennings MD [address] [facility] [address] [place], [place] [address] 08/17/2025 12:15 PM CDT Office Visit [facility] D[facility]at[facility] [place] [address] [place] [address] 3rd [place] [address] Herber Lopez MD [address] [place] [address] 98 [place], [place] [phone] Scheduled Procedures Name Priority Associated Diagnoses Date/Ti me MASTECTOMY, BILATERAL, FOR GENDER AFFIRMATION Gender dysphoria in adult 03/23/2025 8:00 AM HYDRATION PLANT OPERATOR documented as of this encounter Goals Goal Patient Goal Type Associated Problems Recent Progress Patient-Stated? Author MYC ECC SURG ENROLL Care Plan [facility] ECC SURG ENROLL No Fina Benjamin documented as of this encounter Procedures Procedure Name Priority Date/Time Associated Diagnosis Comments MO TRANSCRANIAL MAGNETIC STIMULATION TREATMENT,DELIVERY/MANAG EMENT Routine 10/20/2024 11:05 AM CDT Severe recurrent major depression without [...] Noted Time PHQ-9 Depression Total Score: 8 10/21/19 25 11:03 AM CDT documented as of this encounter Care Teams Cobol Developer Relationship Specialty Start Date End Date Mamadou Bowie MD [address] [place] [phone] PCP - General 03/18/23 C[place] [address] Resident Internal Medicine 12/07/14 Trevor Espino MD 909 [place], [place] [phone] Urology 05/16/16 Jaci Whitlock APRN EPIC AMBULATORY ANALYST 420 [facility] 395 [place], [place] [phone] Nurse Practitioner - Women's Health 12/14/16 Doris Ricci MD [facility] & [address] [phone] Physician Internal Medicine 07/11/20 Yudy Pompa MD [address] [place] [address] [phone] Assigned Cancer Care Provider 08/21/20 Mary Carmen Rodriguez MD [address] [facility] 98 [place], [place] 9[address] Dermatology 11/09/20 Herber Lopez MD 420 [facility] 98 [place], [place] [address] Dermapathology 11/09/20 Gloria Elizalde MD 420 [place], [place] 328505 Resident 12/24/22 Mamadou Bowie MD [address] [place] [address] [phone] Assigned PCP 03/23/23 Makenzie Romano MD [address] [place] [address] [place] [address] glove operator & Neurology - Child & Adolescent Psychiatry 11/08/23 Shani Stephenson MD 420 [place] [address] Resident Psychiatry 11/08/23 Ita Newton Specialty Group Leader Semiconductor Testing 06/04/24 Kenya Jennings MD [address] [facility] 195 [place] [address] Plastic Surgery 06/04/24 Herber Lopez MD 420 [facility] 98 [place] [address] Assigned Dermatology Provider 07/26/24 Сергей Dumont, [facility] Financial Services Counselor 08/13/24 Kenya Jennings MD [address] [facility] 195 [place], [place] 944385 Assigned Surgical Provider 08/26/24 Luis Dudley MD 240 [place] [address] Assigned Behavioral Health Provider 09/25/24 10/25/24 Carmen Cole PA-C [address] [facility] [address] [place] [address] Assigned Sleep Provider 09/25/24 documented as of this encounter
--- OUTSIDE RECORDS SUMMARY | 2024-10-21 11:00 | XMS_ITS | Encounter Summary ---
Author Organization [facility] Address [address] [place] [address] Care Team Providers Care Architectural Manager Name Role Phone Cindy Ruiz Unavailable [phone] Trevor Espino MD Unavailable [phone] Jaci Whitlock APRN AIRBORNE OPERATIONS SUPERINTENDENT Unavailable + Doris Ricci MD Unavailable [phone] Yudy Pompa MD Unavailable [phone] Mary Carmen Rodriguez MD Unavailable + Herber Lopez MD Unavailable [phone] Gloria Elizalde MD Unavailable [phone] Mamadou Bowie MD Primary Care Provider [phone] Mamadou Bowie MD Unavailable Makenzie Romano MD Unavailable [phone] Shani Stephenson MD Unavailable [phone] Ita Newton Unavailable Unavailable Kenya Jennings MD Unavailable [phone] Herber Lopez MD Unavailable [phone] Сергей Dumont [facility] Unavailable Unavailable eKnya Jennings MD Unavailable [phone] Luis Dudley MD Unavailable [phone] Carmen Cole PA-C Unavailable [phone] Encounter Details Date Type Department Care Team (Late st Contact Info) Description 10/21/2024 11:00 AM CDT Office Visit [facility] [address] [place] [address] Severe recurrent major depression without [...] relatives? Three times a week 04/02/2024 Attends Nondenominational Services Not on file 04/02 Active Member of Clubs or Organizations Not on f ile 04/02/2024 Attends Club or Organization Meetings Not on jd e 04/02/2024 Marital Status Not on file 04/02/2024 PHQ-2 Answer Date Recorded PHQ-2 Score 2 10/22/2024 [facility] [...] in an abandoned building, in an overnight custodial, or couch-surfing.) Yes 04/03/2024 Are you worried [...] PM CDT Legal Sex Female 3:58 AM FOSTER CARE WORKER Gender Identity other 11/14/2020 10:33 PM CDT Sexual Orientation Lesbian 06/22/2019 4: 20 AM FOSTER CARE WORKER documented as of this encounter Progress Notes * JjcullenVerónica - 10/21/2024 11:00 AM CDT Images from the original note were not included. Interventional Psychiatry Program [address] [place] [address], [address] [place] [address] TMS Procedure Note Gabriela Kraus Age: [age] year old Date of : 1965 Gabriela Kraus comes into clinic today at the request of, Jesse Arvizu MD, ordering provider for TMS treatments. Pre-Procedure: History and Physical: Reviewed in medical record Consent signed by: Gabriela Esteban Nayana for this course of treatment on: 09/02/2024 Clinical Narrative: Patient tolerated treatment. Excited to finish TMS tomorrow. Indications for TMS: MDD, recurrent, severe; 4+ medication trials (from 2+ classes) ineffective; Psychotherapy ineffective Procedure Diagnosis: MDD, severe, recurrent F33.2 Treatment Hx: Treatment number this series: 35 Total lifetime treatment number: 35 Allergies Allergen Reactions Adhesive Tape Rash Sulfa Antibiotics Rash LMP (LMP Unknown) Pause for the Cause Right patient: Yes Right procedure/correct coil: Yes; rTMS; cpt 94882; H1 coil. Earplugs in place: Yes Procedure [...] Energy: 61% (120%MT) Trains: 55 *USE SPACER* 10/19/2024 8:41 AM 10/20/2024 11:03 AM 10/21/2024 7:58 AM PHQ-9 SCORE PHQ-9 Total Score MyChart 8 (Mild depression) 6 (Mild depression) PHQ-9 Total Score 8 8 6 Patient-reported Date MADRS QIDS PHQ-9 09/02/24 19 13 11 09/11/24 12 12 09/18/24 12 10 09/25/24 8 7 10/02/24 9 7 10/09/24 6 8 10/16/24 8 7 Plan - Continue TMS treatments This service provided today was under the supervising provider of the day, Jesse Arvizu MD, who was available if needed. Verónica Escobar TMS Powder [facility] Mental Health Neuromodulation documented in this encounter Plan of Treatment Upcoming Encounters Date Type Department Care Team (Latest Contact Info) Description 10/29/2024 11:00 AM CDT Virtual Visit M [facility] [address] [facility] [address] [place] [phone] 11/23/2024 1:30 PM CDT Office Visit [facility] Mental Health & Addiction [address] [phone] Melanie Boykin MD 5360 [place], [place] 181494 Gloria Elizalde MD 420 [place], [place] 465015 12/03/2024 3:00 PM CDT [facility] [address] [facility] [address] [place] [phone] Jesse Arvizu MD 5775 [place] [address] 12/15/2024 11:40 AM CDT Ancillary Procedure [facility] Imaging Center CT Clinic [address] 1st [place] [phone] Yudy Pompa MD [address] [place] [address] 759225 12/22/2024 11:40 AM CDT Oncology Visit [facility] [address] [place] [address] [phone] Yudy Pompa MD [address] [place] [address] 172555 02/22/2025 12:30 PM CDT Office Visit [facility] Plastic [facility] Reconstructive Surgery Clinic [address] 4th [place] [phone] Kenya Jennings MD [address] [facility] 195 [place], [place] [address] 03/12/2025 1:00 PM FOSTER CARE WORKER Office Visit [facility] Internal Medicine [address] [phone] Mamadou Bowie MD [address] [place] [address] 03/23/2025 8:00 AM FOSTER CARE WORKER Hospital Encounter [facility] PeriOp Services [address] [place] [address] [phone] Kenya Jennings MD [address] [place] [address] 576025 03/23/2025 8:00 AM FOSTER CARE WORKER - 03/23/2025 12:05 PM FOSTER CARE WORKER Surgery [facility] Per[facility]Op Services [address] [place] [address] [phone] Kenya Jennings MD [address] [place] [address] 055635 MASTECTOMY, BILATERAL, SIMPLE, NO nipple grafts. OnQ 03/30/2025 10:00 AM FOSTER CARE WORKER Office Visit [facility] Plastic and Reconstructive Surgery [address] [phone] Lynn Parks APRN [address] [address] 04/16/2025 1:00 PM FOSTER CARE WORKER Office Visit [facility] Internal Medicine [address] [phone] Mamadou Bowie MD [address] [place] [address] 05/03/2025 4:00 PM FOSTER CARE WORKER Office Visit [facility] [address]th [place] [phone] Kenya Jennings MD 420 [facility] 195 [place], [place] 3888[address] 08/17/2025 12:15 PM CDT Office Visit [facility] Dermatology Clinic [address]rd [place] [address] Herber Lopez MD 420 [facility] 98 [place], [place] [address] Scheduled Procedures Name Priority Associated Diagnoses Date/Ti me MASTECTOMY, BILATERAL, FOR GENDER AFFIRMATION Gender dysphoria in adult 03/23/2025 8:00 AM FOSTER CARE WORKER documented as of this encounter Goals Goal Patient Goal Type Associated Problems Recent Progress Patient-Stated? Author MYC ECC SURG ENROLL Care Plan [facility]G [facility] No Fina Benjamin documented as of this encounter Procedures Procedure Name Priority Date/Time Associated Diagnosis Comments SC TRANSCRANIAL MAGNETIC STIMULATION TREATMENT,DELIVERY/MANAG EMENT Routine 10/21/2024 11:24 AM CDT Severe recurrent major depression without [...] Noted Time PHQ-9 Depression Total Score: 6 10/22/19 25 7:58 AM CDT documented as of this encounter Care Teams Architectural Manager Relationship Specialty Start Date End Date Mamadou Bowie MD [address] [place] [address] PCP - General 03/18/23 Cindy Ruiz [facility] [address] [place] [address] Resident Internal Medicine 12/07/14 Trevor Espino MD 909 [place] [address] Urology 05/16/16 Jaci Whitlock APRN AIRBORNE OPERATIONS SUPERINTENDENT 420 [facility] 395 [place] [address] Nurse Practitioner - Women's Health 12/14/16 Doris Ricci MD [facility] [address] [place] [address] Physician Internal Medicine 07/11/20 Yudy Pompa MD [address] [place] [address] [phone] Assigned Cancer Care Provider 08/21/20 Mary Carmen Rodriguez MD 420 [facility] 98 [place], [place] [address]125 Dermatology 11/09/20 Herber Lopez MD 420 [facility] 98 [place], [place] [address] Dermapathology 11/09/20 Gloria Elizalde MD 420 [place], [place] 327405 Resident 12/24/22 Mamadou Bowie MD 909 [place], [place] 229825 Assigned PCP 03/23/23 Makenzie Romano MD [address] [place] [address] 193954 lacquer dipping machine operator & Neurology - Child & Adolescent Psychiatry 11/08/23 Shani Stephenson MD 420 [place], [place] 856145 Resident Psychiatry 11/08/23 Ita Newton Specialty Debit Agent 06/04/24 Kenya Jennings MD 420 [facility] 195 [place], [place] 955285 Plastic Surgery 06/04/24 Herber Lopez MD 420 [facility] 98 [place], [place] 864485 Assigned Dermatology Provider 07/26/24 Сергей Dumont [facility] Cardiology Manager 08/13/24 Kenya Jennings MD [address] [facility] 195 [place], [place] 856315 Assigned Surgical Provider 08/26/24 Luis Dudley MD 240 [place], [place] 759504 Assigned Behavioral Health Provider 09/25/24 10/25/24 Carmen Cole PA-C [address] [address] Assigned Sleep Provider 09/25/24 documented as of this encounter
--- OUTSIDE RECORDS SUMMARY | 2024-10-21 13:40 | XMS_ITS | Encounter Summary ---
Author Organization [place] Address [address] [place] [address] Care Team Providers Care Fiber Worker Name Role Phone Cindy Ruiz Unavailable [phone] Trevor Espino MD Unavailable [phone] Jaic Whitlock APRN CONFIGURATION MANAGEMENT ARCHITECT Unavailable + Doris Ricci MD Unavailable Yudy Pompa MD Unavailable [phone] Mary Carmen Rodriguez MD Unavailable + Herber Lopez MD Unavailable [phone] Gloria Elizalde MD Unavailable [phone] Mamadou Bowie MD Primary Care Provider [phone] Mamadou Bowie MD Unavailable Makenzie Romano MD Unavailable [phone] Shani Stephenson MD Unavailable [phone] Ita Newton Unavailable Unavailable Kenya Jennings MD Unavailable [phone] Herber Lopez MD Unavailable [phone] Сергей Dumont [facility] Unavailable Unavailable Kenya Jennings MD Unavailable [phone] Luis Dudley MD Unavailable [phone] Carmen Cole PA-C Unavailable [phone] Reason for Visit * Reason Comments Sleep Problem STM Encounter Details Date Type Department Care Team (Latest Contact Info) Description 10/21/2024 1:40 PM CDT Documentation Only [facility] Sleep Center [facility] [address] [place] [address], [address] [place] [address] Sleep Problem (STM) Social History [...] relatives? Three times a week 04/02/2024 Attends Confucianist Services Not on file 04/02 Active Member of Clubs or Organizations Not on f ile 04/02/2024 Attends Club or Organization Meetings Not on jd e 04/02/2024 Marital Status Not on file 04/02/2024 PHQ-2 Answer Date Recorded PHQ-2 Score 2 10/22/2024 [facility] [place] of Occupat ional Health - Occupational Stress [...] PM CDT Legal Sex Female 3:58 AM BAR STEWARD Gender Identity other 11/14/2020 10:33 PM CDT Sexual Orientation Lesbian 06/22/2019 4: 20 AM BAR STEWARD documented as of this encounter Progress Notes * Jeff Neftali - 10/21/2024 1:40 PM CDT 14 DAY STM VISIT Diagnostic AHI: HST: 5.6 Subjective measures: Spoke with patient she stated things going well with her CPAP she is on a lot of differnet medicines and she can't tell if CPAP is making a difference. She is looking to get CPAPpillows for her current mask. Assessment: Pt meeting objective benchmarks. Action plan: pt to have 30 day STM visit. Device type: Auto-CPAP PAP settings: CPAP min 5.0 cm H20 CPAP max 15.0 cm H20 95th% pressure 9.2 cm H20 RESMED EPR level Setting: TWO RESMED Soft response setting: OFF Mask type: Objective measures: 14 day rolling measures Compliance 92 % Leak 1.38 lpm last upload AHI 0.11 last upload Average number of minutes 412 Objective measure goal Compliance Goal >70% Leak Goal < 24 lpm AHI Goal < 5 Usage Goal >240 Patient has the following upcoming sleep appts: Total time spent on accessing and interpreting remote patient PAP therapy data 10 minutes Total time spent counseling, coaching and reviewing PAP therapy data with patient 3 minutes [id number] no (3 day STM) documented in this encounter Plan of Treatment Upcoming Encounters Date Type Department Care Team (Latest Contact Info) Description 10/29/2024 11:00 AM CDT Virtual Visit [facility] Psychiatry [facility] [address] [place] [phone] 11/23/2024 1:30 PM CDT Office Visit [facility] Mental Health & Addiction [address] [place] [address] [phone] Melanie Boykin MD [address] [place] [address] Gloria Elizalde MD [address] [place] [address] 288105 12/03/2024 3:00 PM CDT Office Visit [facility] [address] [place] [address] [phone] Jesse Arvizu MD [address] [place] [address] 12/15/2024 11:40 AM CDT Ancillary Procedure [facility] [address] [place] [phone] Yudy Pompa MD [address] [place] [address] [phone] 12/22/2024 11:40 AM CDT Oncology [facility] [address] [place] [address] [phone] Yudy Pompa MD [address] [place] [address] 02/22/2025 12:30 PM CDT Office Visit [facility] Plastic [facility] Reconstructive [facility] [address] [phone] Kenya Jennings MD [address] [place] [address] 304515 03/12/2025 1:00 PM BAR STEWARD Office Visit [facility] Internal Medicine [address] [phone] Mamadou Bowie MD [address] [place] [address] 03/23/2025 8:00 AM BAR STEWARD Hospital Encounter [facility] PeriOp Services [address] [place] [address] [phone] Kenya Jennings MD [address] [place] [address] 12[address] 03/23/2025 8:00 AM BAR STEWARD - 03/23/2025 12:05 PM BAR STEWARD Surgery [facility] [address] [place] [address] [phone] Kenya Jennings MD [address] [place] [address] [phone] MASTECTOMY, BILATERAL, SIMPLE, NO nipple grafts. OnQ 03/30/2025 10:00 AM BAR STEWARD Office Visit [facility] [address] [phone] KaseyFrandyLynnJUSTIN parmarN CONFIGURATION MANAGEMENT ARCHITECT [address] [place] [address] 04/16/2025 1:00 PM BAR STEWARD Office Visit [facility] Internal Medicine [address] [place] [phone] Mamadou Bowie MD [address] [place] [address] 66[address] 05/03/2025 4:00 PM BAR STEWARD Office Visit [facility] [address] [phone] Kenya Jennings MD [address] [place] [address] 195 [place], [place] 0[address]95 08/17/2025 12:15 PM CDT Office Visit [facility] Dermatology Clinic [address] [place] [phone] Herber Lopez MD [address] [place] [address] 98 [place], [place] 107055 Scheduled Procedures Name Priority Associated Diagnoses Date/Ti me MASTECTOMY, BILATERAL, FOR GENDER AFFIRMATION Gender dysphoria in adult 03/23/2025 8:00 AM BAR STEWARD documented as of this encounter Goals Goal [...] documented as of this encounter Care Teams Fiber Worker Relationship Specialty Start Date End Date Mamadou Bowie MD [address] [place] [address] 84605 PCP - General 03/18/[address] Ru[address] [place], [place] [phone] Resident Internal Medicine 12/07/14 Trevor Espino MD [address] [place] [address] 930995 Urology 05/16/16 Jaci Whitlock APRN CONFIGURATION MANAGEMENT ARCHITECT [address] [place] [address] Nurse Practitioner - Women's Health 12/14/16 Doris Ricci MD [facility] & [address] [address] Physician Internal Medicine 07/11/20 Yudy Pompa MD [address] [place] [address] [phone] Assigned Cancer Care Provider 08/21/20 Mary Carmen Rodriguez MD [address] [place] [address] 98 [place], [place] 680975 Dermatology 11/09/20 Herber Lopez MD [address] [place] [address] Dermapathology 11/09/20 Gloria Elizalde MD [address] [place] [address] 609215 Resident 12/24/22 Mamadou Bowie MD 909 [place], [place] 202675 Assigned PCP 03/23/23 Makenzie Romano MD [address] [phone] [place], [place] 06[address] body piercer & Neurology - Child & Adolescent Psychiatry 11/08/23 Shani Stephenson MD 420 [place], [place] 530995 Resident Psychiatry 11/08/23 Ita Newton Specialty Coal Feeder Operator 06/04/24 Kenya Jennings MD 420 [facility] 195 [place], [place] 902755 Plastic Surgery 06/04/24 Herber Lopez MD 420 [facility] 98 [place], [place] 416125 Assigned Dermatology Provider 07/26/24 Сергей Dumont [facility] Concierge Receptionist 08/13/24 Kenya Jennings MD 420 [facility] 195 [place] [address] Assigned Surgical Provider 08/26/24 Luis Dudley MD 240 [place], [place] 968544 Assigned Behavioral Health Provider 09/25/24 10/25/24 Carmen Cole PA-C [address] [address] [place], [place] 445155 Assigned Sleep Provider 09/25/24 documented as of this encounter
--- OUTSIDE RECORDS SUMMARY | 2024-10-22 11:00 | XMS_ITS | Encounter Summary ---
Author Organization [facility] Address [address] [place] [address] Care Team Providers Care Automotive Leasing Sales Representative Name Role Phone Cindy Ruiz Unavailable [phone] Trevor Espino MD Unavailable [phone] Jaci Whitlock APRN SHIFT COMMANDER Unavailable + Doris Ricci MD Unavailable Yudy Pompa MD Unavailable [phone] Mary Carmen Rodriguez MD Unavailable + Herber Lopez MD Unavailable [phone] Gloria Elizalde MD Unavailable [phone] Mamadou Bowie MD Primary Care Provider [phone] Mamadou Bowie MD Unavailable Makenzie Romano MD Unavailable [phone] Shani Stephenson MD Unavailable [phone] Ita Newton Unavailable Unavailable Kenya Jennings MD Unavailable [phone] Herber Lopez MD Unavailable [phone] Сергей Dumont [facility] Unavailable Unavailable Kenya Jennings MD Unavailable [phone] Luis Dudley MD Unavailable [phone] Carmen Cole PA-C Unavailable [phone] Encounter Details Date Type Department Care Team (Late st Contact Info) Description 10/22/2024 11:00 AM CDT Office Visit [facility] [address] [place] [address] Severe recurrent major depression without [...] relatives? Three times a week 04/02/2024 Attends Adventist Services Not on file 04/02 Active Member of Clubs or Organizations Not on f ile 04/02/2024 Attends Club or Organization Meetings Not on jd e 04/02/2024 Marital Status Not on file 04/02/2024 PHQ-2 Answer Date Recorded PHQ-2 Score 2 10/22/2024 [facility] of Occupat ional Health - Occupational [...] PM CDT Legal Sex Female 3:58 AM AGENCY DEVELOPMENT MANAGER Gender Identity other 11/14/2020 10:33 PM CDT Sexual Orientation Lesbian 06/22/2019 4: 20 AM AGENCY DEVELOPMENT MANAGER documented as of this encounter Progress Notes * Brittnee Kiser - 10/22/2024 11:00 AM CDT Images from the original note were not included. Interventional Psychiatry Program [address] [place] [address], [address] [place] [address] TMS Procedure Note Gabriela Kraus Age: [age] year old Date of : 1965 Gabriela Kraus comes into clinic today at the request of, Jesse Arvizu MD, ordering provider for TMS treatments. Pre-Procedure: History and Physical: Reviewed in medical record Consent signed by: Gabriela Esteban Nayana for this course of treatment on: 09/02/2024 Clinical Narrative: Patient tolerated treatment. Last treatment! Indications for TMS: MDD, recurrent, severe; 4+ medication trials (from 2+ classes) ineffective; Psychotherapy ineffective Procedure Diagnosis: MDD, severe, recurrent F33.2 Treatment Hx: Treatment number this series: 36 Total lifetime treatment number: 36 Allergies Allergen Reactions Adhesive Tape Rash Sulfa Antibiotics Rash LMP (LMP Unknown) Pause for the Cause Right patient: Yes Right procedure/correct coil: Yes; rTMS; cpt 79836; H1 coil. Earplugs in place: Yes Procedure [...] 7 10/09/24 6 8 10/16/24 8 7 10/22/24 7 8 6 Plan - Follow up with Dr. Arvizu on 12/03/24 This service provided today was under the supervising provider of the day, Zakiya Ng MD, whowas available if needed. Brittnee Kiser TMS Joinery Machinist [facility] Neuromodulation documented in this encounter Plan of Treatment Upcoming Encounters Date Type Department Care Team (Latest Contact Info) Description 10/29/2024 11:00 AM CDT Virtual Visit [facility] 57[address] [facility] [address] [place] [address] 11/23/2024 1:30 PM CDT Office Visit [facility] Mental Health & Addiction [address] [phone] Melanie Boykin MD 4400 [place], [place] 775634 Gloria Elizalde MD [address] [place] [address] 018185 12/03/2024 3:00 PM CDT [facility] 5775 [facility] 255 [place] [phone] Jesse Arvizu MD [address] [place] [address] 12/15/2024 11:40 AM CDT Ancillary Procedure [facility] [address] 1st [place] [phone] Yudy Pompa MD [address] [place] [address] [phone] 12/22/2024 11:40 AM CDT Oncology Visit [facility] [address] [place] [address] [phone] Yudy Pompa MD [address] [place] [address] [phone] 02/22/2025 12:30 PM CDT Office Visit [facility] Plastic [facility] Re[facility] Clinic [address] 4th [place] [phone] Kenya Jennings MD [address] [place] [address] 03/12/2025 1:00 PM AGENCY DEVELOPMENT MANAGER Office Visit [facility] Internal Medicine [address] [phone] Mamadou Bowie MD [address] [place] [address] 03/23/2025 8:00 AM AGENCY DEVELOPMENT MANAGER Hospital Encounter [facility] PeriOp Services [address] [place] [address] [phone] Kenya Jennings MD [address] [place] [address] 20107 03/23/2025 8:00 AM AGENCY DEVELOPMENT MANAGER - 03/23/2025 12:05 PM AGENCY DEVELOPMENT MANAGER Surgery [facility] [address] [place] [address] [phone] Kenya Jennings MD [address] [place] [address] 424295 MASTECTOMY, BILATERAL, SIMPLE, NO nipple grafts. OnQ 03/30/2025 10:00 AM AGENCY DEVELOPMENT MANAGER Office Visit [facility] [address] [phone] Lynn Parks APRN [address] [address] 04/16/2025 1:00 PM AGENCY DEVELOPMENT MANAGER Office Visit [facility] Internal Medicine [address] [phone] Mamadou Bowie MD [address] [place] [address] 05/03/2025 4:00 PM AGENCY DEVELOPMENT MANAGER Office Visit [facility] Plastic and Reconstructive Surgery Clinic [place] 909 [facility] 4th [place] [phone] Kenya Jennings MD 420 [facility] 195 [place], [place] [address] 08/17/2025 12:15 PM CDT Office Visit [facility] Dermatology Clinic [place] 909 [facility] 3rd [place] [address] Herber Lopez MD 420 [facility] 98 [place] [address] Scheduled Procedures Name Priority Associated Diagnoses Date/Ti me MASTECTOMY, BILATERAL, FOR GENDER AFFIRMATION Gender dysphoria in adult 03/23/2025 8:00 AM AGENCY DEVELOPMENT MANAGER documented as of this encounter Goals Goal Patient Goal Type Associated Problems Recent Progress Patient-Stated? Author [facility] ECC SURG [facility] Care Plan [facility] ECC SURG [facility] No Fina Benjamin documented as of this encounter Procedures Procedure Name Priority Date/Time Associated Diagnosis Comments MT TRANSCRANIAL MAGNETIC STIMULATION TREATMENT,DELIVERY/MANAG EMENT Routine 10/22/2024 11:36 AM CDT Severe recurrent major depression [...] Noted Time PHQ-9 Depression Total Score: 6 10/23/19 25 11:35 AM CDT documented as of this encounter Care Teams Automotive Leasing Sales Representative Relationship Specialty Start Date End Date Mamadou Bowie MD [address] [place] [address] [phone] PCP - General 03/18/23 [address] [place] [place] [address] Resident Internal Medicine 12/07/14 Trevor Espino MD [address] [place] [address] 965395 Urology 05/16/16 Jaci Whitlock APRN SHIFT COMMANDER 420 [facility] 395 [place], [place] 315295 Nurse Practitioner - Women's Health 12/14/16 Doris Ricci MD [facility] & [address] [phone] Physician Internal Medicine 07/11/20 Yudy Pompa MD [address] [place] [address] [phone] Assigned Cancer Care Provider 08/21/20 Mary Carmen Rodriguez MD 420 [facility] 98 [place], [place] 706525 Dermatology 11/09/20 eHrber Lopez MD [address] [place] [address] 98 [place], [place] 086925 Dermapathology 11/09/20 Gloria Elizalde MD [address] [place] [address] 552685 Resident 12/24/22 Mamadou Bowie MD [address] [place] [address]672 Assigned PCP 03/23/23 Makenzie Romano MD 2450 [facility] [address] [place], [place] [address]64 eligibility supervisor & Neurology - Child & Adolescent Psychiatry 11/08/23 Shani Stephenson MD 420 [facility] [place], [place] 399525 Resident Psychiatry 11/08/23 Ita Newton Specialty Dam Tender Assistant 06/04/24 Kenya Jennings MD 420 [facility] 195 [place], [place] 287515 Plastic Surgery 06/04/24 Herber Lopez MD 420 [facility] 98 [place], [place] 202765 Assigned Dermatology Provider 07/26/24 Сергей Dumont [facility] Sound Controller 08/13/24 Kenya Jennings MD 420 [facility] 195 [place], [place] 040685 Assigned Surgical Provider 08/26/24 Luis Dudley MD 240 [facility] [place], [place] 544[address] Assigned Behavioral Health Provider 09/25/24 10/25/24 Carmen Cole PA-C [address] [address] [place], [place] 808855 Assigned Sleep Provider 09/25/24 documented as of this encounter
--- OUTSIDE RECORDS SUMMARY | 2024-10-26 13:30 | XMS_ITS | Encounter Summary ---
Author Organization [facility] Address [address] [place] [address] Care Team Providers Care Scientific Specialist Name Role Phone Cindy Ruiz Unavailable Trevor Espino MD Unavailable [phone] Jaci Whitlock APRN PRICING STRATEGIST Unavailable + Doris Ricci MD Unavailable Yudy Pompa MD Unavailable [phone] Mary Carmen Rodriguez MD Unavailable + Herber Lopez MD Unavailable [phone] Gloria Elizalde MD Unavailable [phone] Mamadou Bowie MD Primary Care Provider [phone] Mamadou Bowie MD Unavailable Makenzie Romano MD Unavailable [phone] Shani Stephenson MD Unavailable [phone] Ita Newton Unavailable Unavailable Kenya Jennings MD Unavailable [phone] Herber Lopez MD Unavailable [phone] Сергей Dumont [facility] Unavailable Unavailable Kenya Jennings MD Unavailable [phone] Carmen Cole PA-C Unavailable [phone] Racheal Ng MD Unavailable [phone] Reason for Visit * Reason Comments Recheck Medication Severe recurrent paola or depression without psychotic features Encounter Details Date Type Department Care Team (Late st Contact Info) Description 10/26/2024 1:30 PM CDT Office Visit [facility] [address] [phone] Melanie Boykin MD 2450 [place] [address] Angella Lima MD [address], [facility] [address] [place] [address] Gloria Elizalde MD [address] [place] [address] Severe episode of recurrent major depressive disorder, without psychotic features (H) (Primary Dx); PTSD (post-traumatic stress disorder); Attention deficit hyperactivity disorder (ADHD), combined type; Generalized anxiety disorder; 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) Social History Tobacco Use Types Packs/Day Years [...] PHQ-2 Answer Date Recorded PHQ-2 Score 2 10/26/2024 [facility] - Occupational Stress Questionnaire Answer Date Recorded [...] before you got money to buy more? Yes 10/26/2024 Within the past 12 months, d id the food you bought just not last and you didn t have money to get more? No 10/26/2024 Housing Stability Answer Date Recorded Do you have housing? (Familia zaidi is defined as stable permanent housing and does not include staying outside in a car, in a tent, in an abandoned building, in an overnight penitentiary, or couch-surfing.) No 10/26/2024 Are you worried about losing your housing? Yes 10/26/2024 Financial Resource Strain Answer Date R ecorded Within the past 12 months, h ave you or your family members you live with been unable to get utilities (heat, electricity) when it was really needed? No 10/26/2024 Transportation Needs Answer Date Record ed Within the past 12 months, h as lack of transportation kept you from medical appointments, getting your medicines, non-medical meetings or appointments, work, or from getting things that you need? No 10/26/2024 Interpersonal Safety Answer Date Record ed Do [...] PM CDT Legal Sex Female 3:58 AM SPORTING GOODS SALESPERSON Gender Identity other 11/14/2020 10:33 PM CDT Sexual Orientation Lesbian 06/22/2019 4: 20 AM SPORTING GOODS SALESPERSON documented as of this encounter Last Filed Vital Signs Vital Sign Reading Time Taken Comments Blood Pressure 126/79 10/26/2024 1:17 PM CDT Pulse 82 10/26/2024 1:17 PM CDT Temperature 36.6 C (97.8 F) 10/26/2024 1:17 PM CDT Respiratory Rate - - Oxygen Saturation - - Inhaled Oxygen Concentration - - Weight 123.1 kg (271 lb 6.4 oz) 10/26/2024 1:17 PM CDT Height - - Body Mass Index 38.94 09/08/2024 1:02 PM CDT documented in this encounter Patient Instructions * Patient Instructions* Gloria Elizalde MD - 10/26/2024 1:30 PM CDT Thank you for your visit today. Treatment Plan Today: 1) Plan: No medication changes today 2) Follow-up appointment with Dr Elizalde in about 4 weeks. 3) In the case of an emergency, crisis numbers are below and clinic after hours number is [phone]. Gloria Elizalde MD Trust Manager Physician Some background on this hypotensive effect of MAOIs: - Orthostatic hypotension ususally occurs shortly after a dose increase and typically reaches its peak 10 to 14 days later. - Therafter, a gradual lessening of the hypotensive effect is observed. - Even in initially severe cases, patients often note significant improvement over time (typically after 3 to 4 weeks). Recommendations for patients with orthostatic hypotension: From A to F Your physician has determined that you have orthostatic hypotension. This means that your blood pressure drops when you stand up, making you feel dizzy or perhaps even pass out. The following may help. A: Abdominal compression Wear an abdominal binder when out of bed. An abdominal binder has been shown to be more effective for managing hypotension that compression stockings. In practical terms, the binder should be tight enough to exert general pressure. It shouldbe put on before rising from bed in the the morning and taken off when lying down. Advantages are that a binder's effects are immediate, its its benefits can be easily assessed, and it can be used alonso as-needed basis by patients who need it only during periods of prolonged or- thostatic stress. Binders are also easy to fit and are available in most sporting [employer] stores and on the Web (try searching for ???abdominal binder?? ). B: Bolus of water On bad days, drink two 8-ounce glasses of cold water prior to prolonged standing. Rapidly drinking two 8-oz (500-mL) glasses of cold water helps expand plasma volume. It also, within a few minutes, elicits a significant pressor effect increasing the standing systolic blood pressure by more than 20 mm Hg for about 2 hours and improving symptoms and orthostatic endurance. This technique can be used when prolonged standing is expected (eg, shopping). B (continued): Bed up Sleep with the head of the bed elevated 4 inches. C: Countermaneuvers Contract the muscles below your waist for about half a minute at a time to raise your blood pressure during prolonged standing or when you become symptomatic. D: Drugs Drugs such as midodrine (ProAmatine), pyridostigmine (Mestinon), and fludrocortisone (Florinef) canbe used to raise your blood pressure. Recognize that some drugs you take can lower blood pressure. E: Education Recognize symptoms that indicate your standing blood pressure is falling. Recognize the conditions that lower blood pressure, such as a heavy meal, positional changes, heat,exercise, or a hot bath. Learn the things you can do to raise your blood pressure. E (continued): Exercise Avoid inactivity and consider a gentle exercise program. F : Fluids and salt You need plenty of salt and fluids. Reference: Cl SUAZO, Shayan JR, Luther RAMACHANDRAN. Preventing and treating orthostatic hypotension: As easy as AErica, Zane. Silvio Clin J Med. 2010 September;77(5):298-306. doi: 10.3949/ccjm.77a.02210. PMID: 95643315; PMCID: [id number]. For crisis resources, please see the information at the end of this document Patient Education Thank you for coming to the [facility]. Lab Testing: If you had lab testing today and your results are reassuring or normal they will be mailed to you or sent through [employer] within 7 days. If the lab tests need quick action we will call you with the results. The phone number we will call with results is # [phone]. If this is not the best numberplease call our clinic and change the number. Medication Refills: If you need any refills please call your pharmacy and they will contact us. Our fax number for refills is [phone]. Three business days of notice are needed for general medication refill requests. Five business days of notice are needed for controlled substance refill requests. If you need to change to a different pharmacy, please contact the new pharmacy directly. The new pharmacy will help you get your medications transferred. Contact Us: Please call [phone] during business hours (8-5:00 M-F). If you have medication related questions after clinic hours, or on the weekend, please call [phone]. Financial Assistance [phone] Medical Records [phone] MENTAL HEALTH CRISIS RESOURCES: For a emergency help, please call 911 or go to the nearest Emergency Department. Emergency Walk-In Options: EmPATH Unit @ [facility] ([place]): [phone] - Specialized mental health emergency area designed to be calming [facility] ([place]): [phone] [facility] Acute Psychiatry Services ([place]): [phone] [facility]): [phone] [facility] Crisis Information: [place]: [phone] [place]: [phone] Daniel (CODY) - Adult: [phone] Child: [phone] Lizandro - Adult: [phone] Child: [phone] Driver: [phone] List of all [facility] resources: https://ms.gov/dhs/ehfyjd-lo-hbdrl/adults/health-care/mental-health/resources/cr lakshmi-contacts.jsp National Crisis Information: Crisis Text Line: Text ???[place]?? to 517661 Suicide & Crisis Lifeline: 988 National Suicide Prevention Lifeline: 0-828-245-TALK ( ) For online chat options, visit https://suicidepreventionlifeline.org/chat/ Poison Control Center: Trans Lifeline: - Hotline for transgender people of all ages The Magen Project: - Hotline for LGBT youth For Non-Emergency Support: Fast Tracker: Mental Health & Substance Use Disorder Resources - https://www.Like.fmckermn.org/ documented in this encounter Nursing Notes * Karlo Agosto - 10/26/2024 1:30 PM CDT Chief Complaint Patient presents with Recheck Medication Severe recurrent major depression without psychotic features - Justin Sigala, Visit Instrument Panel Assembler documented in this encounter Plan of Treatment Upcoming Encounters Date Type Department Care Team (Latest Contact Info) Description 10/29/2024 11:00 AM CDT Virtual Visit [facility] [address] [phone] 11/23/2024 1:30 PM CDT Office Visit [facility] [address] [phone] Melanie Boykin MD 2450 [place], [place] [phone] Gloria Elizalde MD [address] [place], [place] [phone] 12/03/2024 3:00 PM CDT Office Visit [facility] 5775 [facility] [address] [place] [phone] Jesse Arvizu MD [address] [place] [address] [phone] 12/15/2024 11:40 AM CDT Ancillary Procedure [facility] [address] [place] [phone] Yudy Pompa MD [address] [place] [address] 12/22/2024 11:40 AM CDT Oncology Visit [facility] [address] [place] [phone] Yudy Pompa MD [address] [place] [phone] 02/22/2025 12:30 PM CDT Office Visit [facility] [address] [place] [phone] Kenya Jennings MD [address] [place] [address] 03/12/2025 1:00 PM SPORTING GOODS SALESPERSON Office Visit [facility] Internal Medicine [address] [place] [phone] Mamadou Bowie MD [address] [place] [address] 03/23/2025 8:00 AM SPORTING GOODS SALESPERSON Hospital Encounter [facility] [address] [place], [place] [address] [place] [phone] Kenya Jennings MD [address] [place] [address] [phone] 03/23/2025 8:00 AM SPORTING GOODS SALESPERSON - 03/23/2025 12:05 PM SPORTING GOODS SALESPERSON Surgery [facility] [address] [place], [place] [address] [place] [phone] Kenya Jennings MD [address] [place] [address] [phone] MASTECTOMY, BILATERAL, SIMPLE, NO nipple grafts. OnQ 03/30/2025 10:00 AM SPORTING GOODS SALESPERSON Office Visit [facility] [address] [phone] Lynn Parks APRN [address] [address] 04/16/2025 1:00 PM SPORTING GOODS SALESPERSON Office Visit [facility] Internal Medicine [address] [phone] Mamadou Bowie MD [address] [place] [address] [phone] 05/03/2025 4:00 PM SPORTING GOODS SALESPERSON Office Visit [facility] [address] [phone] Kenya Jennings MD [address] [place] [phone] 08/17/2025 12:15 PM CDT Office Visit [facility] [address] [phone] Herber Lopez MD [address] [place] [address] 98 [place], [place] 937925 Scheduled Procedures Name Priority Associated Diagnoses Date/Ti me MASTECTOMY, BILATERAL, FOR GENDER AFFIRMATION Gender dysphoria in adult 03/23/2025 8:00 AM SPORTING GOODS SALESPERSON documented as of this encounter Goals Goal Patient Goal Type Associated Problems Recent Progress Patient-Stated? 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 documented in this encounter Additional Health Concerns Active Problems Noted Date Diagnosed Date MyC ECC SURG ENROLL 09/11/2024 Assessment Noted Time PHQ-9 Depression Total Score: 8 10/27/19 25 10:40 AM CDT documented as of this encounter Care Teams Scientific Specialist Relationship Specialty Start Date End Date Mamadou Bowie MD [address] [place] [address] [phone] PCP - General 03/18/23 Cindy Ruiz [place] [address] Resident Internal Medicine 12/07/14 Trevor Espino MD [address] [place] [address] [phone] Urology 05/16/16 Jaci Whitlock APRN PRICING STRATEGIST [address] [place] [address] 827125 Nurse Practitioner - Women's Health 12/14/16 Doris Ricci MD [facility] [address] [place] [address] Physician Internal Medicine 07/11/20 Yudy Pompa MD [address] [place] [address] [phone] Assigned Cancer Care Provider 08/21/20 Mary Carmen Rodriguez MD 420 [facility] 98 [place] [address] Dermatology 11/09/20 Herber Lopez MD 420 [facility] 98 [place], [place] 652225 Dermapathology 11/09/20 Gloria Elizalde MD [address] [place], [place] 264185 Resident 12/24/22 Mamadou Bowie MD [address] [place] [address] 188455 Assigned PCP 03/23/23 Makenzie Romano MD [address] [place] [address] 364854 chimney mechanic & Neurology - Child & Adolescent Psychiatry 11/08/23 Shani Stephenson MD [address] [place], [place] 191975 Resident Psychiatry 11/08/23 Ita Newton Specialty Access Services Assistant 06/04/24 Kenya Jennings MD [address] [place] [address] [phone] Plastic Surgery 06/04/24 Herber Lopez MD 420 [facility] 98 [place] [address] Assigned Dermatology Provider 07/26/24 Сергей Dumont [facility] Attic Blower 08/13/24 Kenya Jennings MD [address] [facility] [address] [place], [place] [phone] Assigned Surgical Provider 08/26/24 Carmen Cole PA-C [address] [place], [place] 729[address] Assigned Sleep Provider 09/25/24 Racheal Ng MD [address] [place] [address] Assigned Behavioral Health Provider 10/26/24 documented as of this encounter
--- OUTSIDE RECORDS SUMMARY | 2024-10-28 19:13 | XMS_ITS | Encounter Summary ---
Author Organization [facility] Address [address] [place] [address] 86730 Care Team Providers Care [facility] Chaplain Name Role Phone Cindy Ruiz Unavailable Trevor Espino MD Unavailable [phone] Melanie Boykin MD Unavailable [phone] Jaci Whitlock APRN MACHINE TOOL BUILDER Unavailable + Doris Ricci MD Unavailable Yudy Pompa MD Unavailable [phone] Jessi Mcfadden MD Unavailable Mary Carmen Rodriguez MD Unavailable + Herber Lopez MD Unavailable Yomi Izquierdo DPEulalia Unavailable +[phone] Torey Luna MD Primary Care Provider Torey Luna MD Unavailable [phone] Herber Lopez MD Unavailable Maurilio Carlson MD Unavailable Herber Lopez MD Unavailable +[phone] Gloria Elizalde MD Unavailable [phone] Olena Smith Unavailable Unavailable Maurilio Carlson MD Unavailable Mamadou Bowie MD Primary Care Provider [phone] Mamadou Bowie MD Unavailable Herber Lopez MD Unavailable +[phone] Makenzie Romano MD Unavailable [phone] Shani Stephenson MD Unavailable [phone] Yomi Campos PhD Unavailable +[phone] Ita Newton Unavailable Unavailable Kenya Jennings MD Unavailable + [phone] Herber Lopez MD Unavailable [phone] Сергей Dumont [facility] Unavailable Unavailable Kenya Jennings MD Unavailable [phone] Jesse Arvizu MD Unavailable Luis Dudley MD Unavailable [phone] Carmen Cole PA-C Unavailable +[phone] Racheal Ng MD Unavailable + [phone] Encounter Details Date Type Department Care Team (Late st Contact Info) Description 08/17/2021 [facility] Medical Advice [facility] Dermatologic Surgery Clinic [address] [address] Estefanía Peter Social History Tobacco Use Types Packs/Day Years Used Date Smoking Tobacco: Never Smokeless Tobacco: Never Alcohol Use Standard Drinks/Week Comments No 0 (1 standard drink = 0.6 oz pur e alcohol) PHQ-2 Answer Date Recorded PHQ-2 Total Score (Adult) - Positive if 3 or more points; Administer PHQ-9 if positive 2 07/12/2021 Comments No Sex and Gender Information Value Date Recorded Sex Assigned at Female 11/14/2020 10:33 PM CDT Legal Sex Female 3:58 AM TELEHEALTH DIRECTOR Gender Identity other 11/14/2020 10:33 PM CDT Sexual Orientation Lesbian 06/22/2019 4: 20 AM TELEHEALTH DIRECTOR COVID-19 Exposure Response Date Recorded In the last 10 days, have yo u been in contact with someone who was confirmed or suspected to have Coronavirus/COVID-19? No / Unsure 08/14/2021 11:50 AM CDT documented as of this encounter Plan of Treatment Upcoming Encounters Date Type Department Care Team (Latest Contact Info) Description 10/29/2024 11:00 AM CDT Virtual Visit [facility] 5775 [facility] [address] [place] [address] 11/23/2024 1:30 PM CDT Office Visit [facility] Mental Health & Addiction [address] F[address] [phone] Melanie Boykin MD 2450 [place], [place] [phone] Gloria Elizalde MD 420 [place], [place] 583545 12/03/2024 3:00 PM CDT Office Visit [facility] 5775 [facility] [address] [place] [phone] Jesse Arvizu MD [address] [place] [address] 12/15/2024 11:40 AM CDT Ancillary Procedure [facility] Imaging Center CT Clinic [address] 1st [place] [phone] Yudy Pompa MD [address] [place] [address] 12/22/2024 11:40 AM CDT Oncology Visit [facility] [address] [place] [phone] Yudy Pompa MD [address] [place] [address] 587425 02/22/2025 12:30 PM CDT Office Visit [facility] Plastic and Reconstructive Surgery Clinic [address] [phone] Kenya Jennings MD [address] [place] [address] 03/12/2025 1:00 PM TELEHEALTH DIRECTOR Office Visit [facility] Internal Medicine [address] [phone] Mamadou Bowie MD [address] [place] [address] 03/23/2025 8:00 AM TELEHEALTH DIRECTOR Hospital Encounter [facility] PeriOp Services [address] [place] [phone] Kenya Jennings MD [address] [place] [address] 03/23/2025 8:00 AM TELEHEALTH DIRECTOR - 03/23/2025 12:05 PM TELEHEALTH DIRECTOR Surgery [facility] [address] [place] [phone] Kenya Jennings MD [address] [place] [address] 70669 MASTECTOMY, BILATERAL, SIMPLE, NO nipple grafts. OnQ 03/30/2025 10:00 AM TELEHEALTH DIRECTOR Office Visit [facility] Plastic and Reconstructive Surgery [address] [phone] Lynn Parks APRN [address] [address] 04/16/2025 1:00 PM TELEHEALTH DIRECTOR Office Visit [facility] Internal Medicine [address] [phone] Mamadou Bowie MD [address] [place] [address] 05/03/2025 4:00 PM TELEHEALTH DIRECTOR Office Visit [facility] Plastic and Reconstructive Surgery Clinic [address] 4th [place] [phone] Kenya Jennings MD [address] [place] [address] [address] [place], [place] 345685 08/17/2025 12:15 PM CDT Office Visit [facility] Dermatology Clinic [address] 3rd [place] [address] Herber Lopez MD [address] [place] [address] 98 [place], [place] 601205 Scheduled Procedures Name Priority Associated Diagnoses Date/Ti me MASTECTOMY, BILATERAL, FOR GENDER AFFIRMATION Gender dysphoria in adult 03/23/2025 8:00 AM TELEHEALTH DIRECTOR documented as of this encounter Visit Diagnoses Not on filedocumented in this encounter Additional Health Concerns Assessment Noted Time PHQ-9 Depression Total Score: 5 07/14/19 22 7:03 AM TELEHEALTH DIRECTOR documented as of this encounter Care Teams Hospital Chaplain Relationship Specialty Start Date End Date Torey Luna MD [address] [place] [address]296 PCP - General Internal Medicine 04/19/21 03/17/23 Mamadou Bowie MD [address] [place] [address] 21829 PCP - General 03/18/[address] [place] [place] [address] Resident Internal Medicine 12/07/14 Trevor Espino MD 9 [place] [address] Urology 05/16/16 Melanie Boykin MD [address] [place] [address] heel top lift splitter 12/10/16 11/07/23 Jaci Whitlock APRN MACHINE TOOL BUILDER [address] [phone] Nurse Practitioner - Women's Health 12/14/16 Doris Ricci MD [facility] & [address] [address] Physician Internal Medicine 07/11/20 Yudy Pompa MD [address] [place] [address] 402165 Assigned Cancer Care Provider 08/21/20 Jessi Mcfadden MD [address] [place] [address] F282/2A [place], [place] 188114 Resident Psychiatry 11/08/20 12/23/22 Mary Carmen Rodriguez MD 420 [facility] [address] [place], [place] 826795 Dermatology 11/09/20 Herber Lopez MD 420 [facility] [address] [place] [address] Dermapathology 11/09/20 Yomi Izquierdo DPM [address] [facility] [address] [place] [address] Assigned Musculoskeletal Provider 12/04/20 06/08/22 Torey Luna MD [address] [place] [address] 16912 Assigned PCP 04/23/21 03/22/23 Herber Lopez MD [address] [place] [address] 55[address] Assigned Surgical Provider 07/30/21 11/17/21 Maurilio Carlson MD [address] [place] [address] 103895 Assigned Surgical Provider 11/18/21 11/23/22 Herber Lopez MD [address] [place] [address] 244605 Assigned Surgical Provider 11/24/22 12/21/22 Gloria Elizalde MD [address] [place] [address] Resident 12/24/22 Olena Smith LSW Specialty State Trooper Medical Art Therapist - Clinical 12/25/22 01/03/23 [place] [address] [place], [place] 476429 Assigned Surgical Provider 12/22/22 05/17/23 Mamadou Bowie MD [address] [place] [address] 915695 Assigned PCP 03/23/23 Herber Lopez MD [address] [place] [address] 152585 Assigned Surgical Provider 05/18/23 07/25/24 Makenzie Romano MD [address] [place] [address] 454574 heel top lift splitter & Neurology - Child & Adolescent Psychiatry 11/08/23 Shani Stephenson MD [address] [place] [address] 035925 Resident Psychiatry 11/08/23 Yomi Campos, PhD [address] [place] [address] 833224 Assigned Behavioral Health Provider 01/27/24 08/25/24 Ita Newton Specialty State Trooper 06/04/24 Kenya Jennings MD [address] [place] [address] 385365 Plastic Surgery 06/04/24 Herber Lopez MD [address] [place] [address] 97445 Assigned Dermatology Provider 07/26/24 Сергей Dumont [facility] Medical Art Therapist 08/13/24 Kenya Jennings MD [address] [place] [address] 990475 Assigned Surgical Provider 08/26/24 Jesse Arvizu MD 5775 [place] [address] Assigned Behavioral Health Provider 08/26/24 09/24/24 Luis Dudley MD 240 [place], [place] 664934 Assigned Behavioral Health Provider 09/25/24 10/25/24 Carmen Cole PA-C 6363 [facility] 103 [place], [place] 952375 Assigned Sleep Provider 09/25/24 Racheal Ng MD 2450 [facility] F282 [place], [place] 922074 Assigned Behavioral Health Provider 10/26/24 documented as of this encounter
--- OUTSIDE RECORDS SUMMARY | 2024-10-28 19:13 | XMS_ITS | Encounter Summary ---
Author Organization [facility] Address [address] [place] [address] 37806 Care Team Providers Care Home Care Liaison Name Role Phone Cindy Ruiz Unavailable [phone] Trevor Espino MD Unavailable [phone] Jaci Whitlock APRN TECHNICAL SERVICE SPECIALIST Unavailable + Doris Ricci MD Unavailable Yudy Pompa MD Unavailable [phone] Mary Carmen Rodriguez MD Unavailable + Herber Lopez MD Unavailable [phone] Gloria Elizalde MD Unavailable [phone] Mamadou Bowie MD Primary Care Provider [phone] Mamadou Bowie MD Unavailable Makenzie Romano MD Unavailable [phone] Shani Stephenson MD Unavailable [phone] Ita Newton Unavailable Unavailable Kenya Jennings MD Unavailable [phone] Herber Lopez MD Unavailable [phone] Сергей Dumont [facility] Unavailable Unavailable Kenya Jennings MD Unavailable [phone] Jesse Arvizu MD Unavailable Encounter Details Date Type Department Care Team (Latest Contact Info) Description 09/23/2024 Travel Social History Tobacco Use Types Packs/Day Years [...] relatives? Three times a week 04/02/2024 Attends [employer] Day Services Not on file 04/02 Active Member of Clubs or Organizations Not on f ile 04/02/2024 Attends Club or Organization Meetings Not on jd e 04/02/2024 Marital Status Not on file 04/02/2024 PHQ-2 Answer Date Recorded PHQ-2 Score 3 09/24/2024 [facility] of Occupat ional Health - Occupational [...] PM CDT Legal Sex Female 3:58 AM TRAFFIC ENGINEER Gender Identity other 11/14/2020 10:33 PM CDT Sexual Orientation Lesbian 06/22/2019 4: 20 AM TRAFFIC ENGINEER documented as of this encounter Plan of Treatment Upcoming Encounters Date Type Department Care Team (Latest Contact Info) Description 10/29/2024 11:00 AM CDT Virtual Visit [facility] [address] [place] [address] [phone] 11/23/2024 1:30 PM CDT Office Visit [facility] Mental Health & Addiction [place] [phone] [address] [place] [phone] Melanie Boykin MD [address] [place] [address] 218404 Gloria Elizalde MD [address] [place] [address] [phone] 12/03/2024 3:00 PM CDT Office Visit [facility] Psychiatry [facility] [address] [phone] Jesse Arvizu MD [address] [place] [address] 12/15/2024 11:40 AM CDT Ancillary Procedure [facility] Imaging Center CT Clinic [address] 1st [place] [phone] Yudy Pompa MD [address] [place] [address] 915725 12/22/2024 11:40 AM CDT Oncology Visit [facility] [address] [place] [address] [phone] Yudy Pompa MD [address] [place] [address] 46831 02/22/2025 12:30 PM CDT Office Visit [facility] Plastic and Reconstructive Surgery Clinic [address] [phone] Kenya Jennings MD [address] [place] [address] 12325 03/12/2025 1:00 PM TRAFFIC ENGINEER Office Visit [facility] Internal Medicine [address] [phone] Mamadou Bowie MD [address] [place] [address] 0[address] 03/23/2025 8:00 AM TRAFFIC ENGINEER Hospital Encounter [facility] PeriOp Services [address] [facility] [place] [phone] Kenya Jennings MD [address] [place] [address] 10409 03/23/2025 8:00 AM TRAFFIC ENGINEER - 03/23/2025 12:05 PM TRAFFIC ENGINEER Surgery [facility] PeriOp Services [address] [place] [phone] Kenya Jennings MD [address] [place] [address] 037505 MASTECTOMY, BILATERAL, SIMPLE, NO nipple grafts. OnQ 03/30/2025 10:00 AM TRAFFIC ENGINEER Office Visit [facility] Plastic and Reconstructive Surgery Clinic [address] [phone] Lynn Parks APRN [address] 707275 04/16/2025 1:00 PM TRAFFIC ENGINEER Office Visit [facility] Internal Medicine [address] [phone] Mamadou Bowie MD [address] [place] [address] 18178 05/03/2025 4:00 PM TRAFFIC ENGINEER Office Visit [facility] Plastic and Reconstructive Surgery Clinic [address] [phone] Kenya Jennings MD [address] [place] [address] 415495 08/17/2025 12:15 PM CDT Office Visit [facility] Dermatology Clinic [address]rd [place] [phone] Herber Lopez MD [address] [place] [address] 770575 Scheduled Procedures Name Priority Associated Diagnoses Date/Ti me MASTECTOMY, BILATERAL, FOR GENDER AFFIRMATION Gender dysphoria in adult 03/23/2025 8:00 AM TRAFFIC ENGINEER documented as of this encounter Goals Goal [...] documented as of this encounter Care Teams Home Care Liaison Relationship Specialty Start Date End Date Mamadou Bowie MD [address] [place] [address] 959715 PCP - General 03/18/23 [address] [place] [place] [address] Resident Internal Medicine 12/07/14 Trevor Espino MD [address] [place] [address] 657075 Urology 05/16/16 Jaci Whitlock APRN TECHNICAL SERVICE SPECIALIST [address] [place] [address] 584395 Nurse Practitioner - Women's Health 12/14/16 Doris Ricci MD [facility] [address] [place] [address] Physician Internal Medicine 07/11/20 Yudy Pompa MD [address] [place] [address] 528755 Assigned Cancer Care Provider 08/21/20 Mary Carmen Rodriguez MD [address] [place] [address] 98 [place], [place] 097535 Dermatology 11/09/20 Herber Lopez MD [address] [place] [address] 678095 Dermapathology 11/09/20 Gloria Elizalde MD [address] [place] [address] 979135 Resident 12/24/22 Maamdou Bowie MD [address] [place] [address] 634205 Assigned PCP 03/23/23 Makenzie Romano MD [address] [place] [address] 976834 check examiner & Neurology - Child & Adolescent Psychiatry 11/08/23 Shani Stephenson MD [address] [place] [address] 55455 Resident Psychiatry 11/08/23 Ita Newton Specialty Photoengraving Proofer Apprentice 06/04/24 Kenya Jennings MD [address] [place] [address] 096385 Plastic Surgery 06/04/24 Herber Lopez MD [address] [place] [address] 721385 Assigned Dermatology Provider 07/26/24 Сергей Dumont [facility] Music Professor 08/13/24 Kenya Jennings MD [address] [place] [address] 545585 Assigned Surgical Provider 08/26/24 Jesse Arvizu MD 5775 [place] [address] Assigned Behavioral Health Provider 08/26/24 09/24/24 documented as of this encounter
--- OUTSIDE RECORDS SUMMARY | 2024-10-28 19:13 | XMS_ITS | Encounter Summary ---
Author Organization [facility] Address [address] [place] [address] 83434 Care Team Providers Care Glass Furnace Operator Name Role Phone Cindy Ruiz Unavailable Trevor Espino MD Unavailable [phone] Jaci Whitlock APRN SENIOR RELATIONSHIP MANAGER Unavailable + Doris Ricci MD Unavailable Yudy Pompa MD Unavailable [phone] Mary Carmen Rodriguez MD Unavailable + Herber Lopez MD Unavailable +[phone] Gloria Elizalde MD Unavailable [phone] Mamadou Bowie MD Primary Care Provider [phone] Mamadou Bowie MD Unavailable Makenzie Romano MD Unavailable [phone] Shani Stephenson MD Unavailable Ita Newton Unavailable Unavailable Kenya Jennings MD Unavailable [phone] Herber Lopez MD Unavailable +[phone] Сергей Dumont [facility] Unavailable Unavailable Kenya Jennings MD Unavailable Jesse Arvizu MD Unavailable Luis Dudley MD Unavailable [phone] Carmen Cole PA-C Unavailable [phone] Racheal Ng MD Unavailable Encounter Details Date Type Department Care Team (Late st Contact Info) Description 09/23/2024 MyC Medical Advice [facility] [address] 4th [place] [address] Jeniffer Rogers Social History Tobacco Use Types Packs/Day Years [...] relatives? Three times a week 04/02/2024 Attends Congregational Services Not on file 04/02 Active Member of Clubs or Organizations Not on f ile 04/02/2024 Attends Club or Organization Meetings Not on jd e 04/02/2024 Marital Status Not on file 04/02/2024 PHQ-2 Answer Date Recorded PHQ-2 Score 2 09/25/2024 [facility] of Occupat ional Health - Occupational Stress [...] in an abandoned building, in an overnight residential, or couch-surfing.) Yes 04/03/2024 Are you worried [...] PM CDT Legal Sex Female 3:58 AM SWITCHBOARD OPERATOR Gender Identity other 11/14/2020 10:33 PM CDT Sexual Orientation Lesbian 06/22/2019 4: 20 AM SWITCHBOARD OPERATOR documented as of this encounter Plan of Treatment Upcoming Encounters Date Type Department Care Team (Latest Contact Info) Description 10/29/2024 11:00 AM CDT [facility] [address] [place] [place] [phone] 11/23/2024 1:30 PM CDT Office Visit [facility] Mental Health & Addiction [address] F[address] [phone] Melanie Boykin MD 5223 [place] [address] Gloria Elizalde MD [address] [place] [address] 748045 12/03/2024 3:00 PM CDT [facility] 5775 [facility] [address] [place] [phone] Jesse Arvizu MD 5775 [place] [address] 12/15/2024 11:40 AM CDT Ancillary Procedure [facility] Imaging Center CT Clinic [address] [phone] Yudy Pompa MD [address] [place] [address] 182725 12/22/2024 11:40 AM CDT Oncology Visit [facility] [address] [place] [address] [phone] Yudy Pompa MD [address] [place] [address] [phone] 02/22/2025 12:30 PM CDT Office Visit [facility] Plastic and Reconstructive Surgery Clinic [address] [phone] Kenya Jennings MD [address] [place] [address] 269635 03/12/2025 1:00 PM SWITCHBOARD OPERATOR Office Visit [facility] Internal Medicine [address] 4th [place] [address] Mamadou Bowie MD [address] [place] [address] 622245 03/23/2025 8:00 AM SWITCHBOARD OPERATOR Hospital Encounter [facility] PeriOp Services formerly [facility] [place] [place] [phone] Kenya Jennings MD [address] [place] [address] 03/23/2025 8:00 AM SWITCHBOARD OPERATOR - 03/23/2025 12:05 PM SWITCHBOARD OPERATOR Surgery [facility] PeriOp Services [facility] [place] [phone] Kenya Jennings MD [address] [place] [address] 010695 MASTECTOMY, BILATERAL, SIMPLE, NO nipple grafts. OnQ 03/30/2025 10:00 AM SWITCHBOARD OPERATOR Office Visit [facility] Plastic and Reconstructive Surgery Clinic [address] [phone] Lynn Parks, TISH [address] [address] 04/16/2025 1:00 PM SWITCHBOARD OPERATOR Office Visit [facility] Internal Medicine [address] [phone] Mamadou Bowie MD [address] [place] [address] 05/03/2025 4:00 PM SWITCHBOARD OPERATOR Office Visit [facility]constructive [facility] Clinic [address] [phone] Kenya Jennings MD [address] [place] [address] 93[address] 08/17/2025 12:15 PM CDT Office Visit [facility] Dermatology [address]rd [place] [phone] Herber Lopez MD 420 [facility] 98 [place], [place] 743595 Scheduled Procedures Name Priority Associated Diagnoses Date/Ti me MASTECTOMY, BILATERAL, FOR GENDER AFFIRMATION Gender dysphoria in adult 03/23/2025 8:00 AM SWITCHBOARD OPERATOR documented as of this encounter Goals [...] documented as of this encounter Care Teams Glass Furnace Operator Relationship Specialty Start Date End Date Mamadou Bowie MD 909 [place], [place] [phone] PCP - General 03/18/23 Cindy Ruiz [facility] [address] [place] [address] Resident Internal Medicine 12/07/14 Trevor Espino MD 909 [place], [place] 058685 Urology 05/16/16 Jaci Whitlock APRN SENIOR RELATIONSHIP MANAGER 420 [facility] 395 [place], [place] 174465 Nurse Practitioner - Women's Health 12/14/16 Doris Ricci MD [facility] & [address] [address] Physician Internal Medicine 07/11/20 Yudy Pompa MD 909 [place], [place] 776745 Assigned Cancer Care Provider 08/21/20 Mary Carmen Rodriguez MD [address] [place] [address] 98 [place], [place] 787045 Dermatology 11/09/20 Herber Lopez MD [address] [place] [address] 98 [place], [place] 728175 Dermapathology 11/09/20 Gloria Elizalde MD [address] [place] [address] 525305 Resident 12/24/22 Mamadou Bowie MD [address] [place] [address] 277005 Assigned PCP 03/23/23 Makenzie Romano MD [address] [place] [address] [phone] job setter honing & Neurology - Child & Adolescent Psychiatry 11/08/23 Shani Stephenson MD [address] [place] [address] 071315 Resident Psychiatry 11/08/23 Ita Newton Specialty Board Stacker 06/04/24 Kenya Jennings MD [address] [place] [address] 141905 Plastic Surgery 06/04/24 Herber Lopez MD 420 [facility] 98 [place] [address] Assigned Dermatology Provider 07/26/24 Сергей Dumont [facility] Land Acquisition Analyst 08/13/24 Kenya Jennings MD 420 [facility] 195 [place], [place] 358805 Assigned Surgical Provider 08/26/24 Jesse Arvizu MD 5775 [place], [place] 748406 Assigned Behavioral Health Provider 08/26/24 09/24/24 Luis Dudley MD 240 [place], [place] 276514 Assigned Behavioral Health Provider 09/25/24 10/25/24 Carmen Cole PA-C [address] [facility] 103 [place], [place] 799975 Assigned Sleep Provider 09/25/24 Racheal Ng MD 2450 [facility] F[address] [place] [address] Assigned Behavioral Health Provider 10/26/24 documented as of this encounter
--- OUTSIDE RECORDS SUMMARY | 2024-10-28 19:13 | XMS_ITS | Encounter Summary ---
Author Organization [employer] Address [address] [place] [address] 38676 Care Team Providers Care Telegraph Installer Name Role Phone Cindy Ruiz Unavailable [phone] Trevor Espino MD Unavailable +[phone] Jaci Whitlock APRN HATCHERY HELPER Unavailable + Doris Ricci MD Unavailable Yudy Pompa MD Unavailable +[phone] Mary Carmen Rodriguez MD Unavailable + Herber Lopez MD Unavailable +[phone] Gloria Elizalde MD Unavailable [phone] Mamadou Bowie MD Primary Care Provider +[phone] Mamadou Bowie MD Unavailable Herber Lopez MD Unavailable +[phone] Makenzie Romano MD Unavailable +[phone] Shani Stephenson MD Unavailable +[phone] Yomi Campos PhD Unavailable +[phone] Ita Newton Unavailable Unavailable Kenya Jennings MD Unavailable +[phone] Herber Lopez MD Unavailable +[phone] Сергей Dumont [facility] Unavailable Unavailable Kenya Jennings MD Unavailable +[phone] Jesse Arvizu MD Unavailable Luis Dudley MD Unavailable +[phone] Carmen Cole PA-C Unavailable +[phone] Racheal Ng MD Unavailable +[phone] Encounter Details Date Type Department Care Team (Late st Contact Info) Description 12/17/2023 MyC Medical Advice [facility] [address] [place] [phone] Yudy Pompa MD [address] [place] [address] Social History Tobacco Use Types Packs/Day Years Used Date Smoking Tobacco: Never Smokeless Tobacco: Never Alcohol Use Standard Drinks/Week Comments Yes 0 (1 standard drink = 0.6 oz pur e alcohol) 1 drink every couple of weeks PHQ-2 Answer Date Recorded PHQ-2 Score 4 10/08/2023 Adolescent Education Answer Date Record ed Getting School Help Needed Not on file 01/29 Food Insecurity Answer Date Recorded Within the past 12 months, d id you worry that your food would run out before you got money to buy more? Yes 03/18/2023 Within the past 12 months, d id the food you bought just not last and you didn t have money to get more? No 03/18/2023 Housing Stability Answer Date Recorded Do you have housing? (Housin g is defined as stable permanent housing and does not include staying outside in a car, in a tent, in an abandoned building, in an overnight longterm, or couch-surfing.) Yes 03/18/2023 Are you worried about losing your housing? No 03/18/2023 Financial Resource Strain Answer Date R ecorded Within the past 12 months, h ave you or your family members you live with been unable to get utilities (heat, electricity) when it was really needed? No 03/18/2023 Transportation Needs Answer Date Record ed Within the past 12 months, h as lack of transportation kept you from medical appointments, getting your medicines, non-medical meetings or appointments, work, or from getting things that you need? No 03/18/2023 Interpersonal Safety Answer Date Record ed Do [...] PM CDT Legal Sex Female 3:58 AM TRAINING AND DEVELOPMENT HEAD Gender Identity other 11/14/2020 10:33 PM CDT Sexual Orientation Lesbian 06/22/2019 4: 20 AM TRAINING AND DEVELOPMENT HEAD documented as of this encounter Plan of Treatment Upcoming Encounters Date Type Department Care Team (Latest Contact Info) Description 10/29/2024 11:00 AM CDT Virtual Visit [facility] [address] [place] [address] [phone] 11/23/2024 1:30 PM CDT Office Visit [facility] [place] [phone] [phone] Melanie Boykin MD [address] [place] [address] [phone] Gloria Elizalde MD [address] [place] [address] 433225 12/03/2024 3:00 PM CDT [facility] [address] [facility] [address] [place] [phone] Jesse Arvizu MD [address] [place] [address] 356836 12/15/2024 11:40 AM CDT Ancillary Procedure [facility] [address] [place] [phone] Yudy Pompa MD [address] [place] [address] 81661 12/22/2024 11:40 AM CDT Oncology Visit [facility] Cancer [address] [phone] Yudy Pompa MD [address] [place] [address] 02/22/2025 12:30 PM CDT Office Visit [facility] [address] [phone] Kenya Jennings MD [address] [place] [address] 151335 03/12/2025 1:00 PM TRAINING AND DEVELOPMENT HEAD Office Visit [facility] Internal Medicine [address] [phone] Mamadou Bowie MD [address] [place] [address] 03/23/2025 8:00 AM TRAINING AND DEVELOPMENT HEAD Hospital Encounter [facility] [address] [place] [place] [address] [phone] Kenya Jennings MD [address] [place] [address] 6[address]99 03/23/2025 8:00 AM TRAINING AND DEVELOPMENT HEAD - 03/23/2025 12:05 PM TRAINING AND DEVELOPMENT HEAD Surgery [facility] [address] [place] [address] [phone] Kenya Jennings MD [address] [place] [address] 91117 MASTECTOMY, BILATERAL, SIMPLE, NO nipple grafts. OnQ 03/30/2025 10:00 AM TRAINING AND DEVELOPMENT HEAD Office Visit [facility] [address] [phone] Lynn Parks APRN [address] [address] 04/16/2025 1:00 PM TRAINING AND DEVELOPMENT HEAD Office Visit [facility] Internal Medicine [address] [phone] Mamadou Bowie MD [address] [place] [address] 084175 05/03/2025 4:00 PM TRAINING AND DEVELOPMENT HEAD Office Visit [facility] [address] [phone] Kenya Jennings MD [address] [place] [address] 195 [place], [place] 621665 08/17/2025 12:15 PM CDT Office Visit [facility] [address] [phone] Herber Lpoez MD [address] [place] [address] 98 [place], [place] 745025 Scheduled Procedures Name Priority Associated Diagnoses Date/Ti me MASTECTOMY, BILATERAL, FOR GENDER AFFIRMATION Gender dysphoria in adult 03/23/2025 8:00 AM TRAINING AND DEVELOPMENT HEAD documented as of this encounter Visit Diagnoses Not on filedocumented in this encounter Additional Health Concerns Assessment Noted Time PHQ-9 Depression Total Score: 12 024 11:40 PM CDT documented as of this encounter Care Teams Telegraph Installer Relationship Specialty Start Date End Date Mamadou Bowie MD [address] [place] [address] 479215 PCP - General 03/18/23 [address] Ru[place] [place] [address] Resident Internal Medicine 12/07/14 Trevor Espino MD [address] [place] [address] 880205 Urology 05/16/16 Jaci Whitlock APRN HATCHERY HELPER [address] [place] [address] 504415 Nurse Practitioner - Women's Health 12/14/16 Doris Ricci MD [address] [address] Physician Internal Medicine 07/11/20 Yudy Pompa MD [address] [place] [address] 488435 Assigned Cancer Care Provider 08/21/20 Mary Carmen Rodriguez MD [address] [place] [address] 98 [place], [place] 323735 Dermatology 11/09/20 Herber Lopez MD [address] [place] [address] Dermapathology 11/09/20 Gloria Elizalde MD [address] [place] [address] [phone] Resident 12/24/22 Mamadou Bowie MD 909 [place] [address] Assigned PCP 03/23/23 Herber Lopez MD 420 [facility] 98 [place], [place] 683075 Assigned Surgical Provider 05/18/23 07/25/24 Makenzie Romano MD [address] 904284 rn progressive care & Neurology - Child & Adolescent Psychiatry 11/08/23 Shani Stephenson MD [address] [place] [address] [phone] Resident Psychiatry 11/08/23 Yomi Campos, PhD [address] [place] [address] 869504 Assigned Behavioral Health Provider 01/27/24 08/25/24 Ita Newton Specialty Hydrologic Modeler 06/04/24 Kenya Jennings MD [address] [place] [address] 253725 Plastic Surgery 06/04/24 Herber Lopez MD [address] [place] [address] [phone] Assigned Dermatology Provider 07/26/24 Сергей Dumont [facility] Semiconductor Processor 08/13/24 Kenya Jennings MD [address] [place] [address] 728725 Assigned Surgical Provider 08/26/24 eJsse Arvizu MD 5775 [place], [place] 335886 Assigned Behavioral Health Provider 08/26/24 09/24/24 Luis Dudley MD 240 [place] [address] Assigned Behavioral Health Provider 09/25/24 10/25/24 Carmen Cole PA-C 6363 [facility] 103 [place], [place] 351725 Assigned Sleep Provider 09/25/24 Racheal Ng MD 2450 [facility] F[address] [place] [address] Assigned Behavioral Health Provider 10/26/24 documented as of this encounter
--- OUTSIDE RECORDS SUMMARY | 2024-10-28 19:13 | XMS_ITS | Encounter Summary ---
Author Organization [place] Address [address] [place] [address] 82101 Care Team Providers Care Data Control Clerk Supervisor Name Role Phone RichielelaCindy Unavailable [phone] Kaitlin Branch MD Unavailable +[phone] Trevor Espino MD Unavailable [phone] Melanie Boykin MD Unavailable [phone] Jaci Whitlock WET POUR SUPERVISOR HVAC MECHANIC Unavailable + Yudy Mathews MD Primary Care Provider [phone] Yudy Mathews MD Unavailable +[phone] Jaci Whitlock WET POUR SUPERVISOR HVAC MECHANIC Unavailable + Juan M Smith MD, Madhuri Unavailable +[phone] Doris Ricci MD Unavailable +[phone] Yudy Mathews MD Unavailable +[phone] Antonette Castro PA-C Unavailable +[phone] Yudy Pompa MD Unavailable [phone] Jessi Mcfadden MD Unavailable + [phone] Mary Carmen Rodriguez MD Unavailable + Herber Lopez MD Unavailable +[phone] Yomi Izquierdo DPM Unavailable +[phone] Torey Luna MD Primary Care Provider + [phone] Antonette Castro-C Unavailable +[phone] Torey Luna MD Unavailable +[phone] Herber Lopez MD Unavailable +[phone] Maurilio Carlson MD Unavailable Herber Lopez MD Unavailable +[phone] Gloria Elizalde MD Unavailable Olena Smith [facility] Unavailable Unavailable Maurilio Carlson MD Unavailable Mamadou Bowie MD Primary Care Provider [phone] AzebMamadou menchaca MD Unavailable Herber Lopez MD Unavailable +[phone] Makenzie Romano MD Unavailable [phone] Shani Stephenson MD Unavailable [phone] Yomi Campos PhD Unavailable +[phone] Ita Newton Unavailable Unavailable Kenya Jennings MD Unavailable + [phone] Herber Lopez MD Unavailable +[phone] Сергей Dumont [facility] Unavailable Unavailable Kenya Jennings MD Unavailable + [phone] Jesse Arvizu MD Unavailable Luis Dudley MD Unavailable +[phone] Carmen Cole-C Unavailable +[phone] Racheal Ng MD Unavailable [phone] Encounter Details Date Type Department Care Team (Late st Contact Info) Description 06/14/2020 [facility] [address] [facility] [address] [place] [address] Kimberley [place], [facility] 2450 [place] [address] Social History Tobacco Use Types Packs/Day Years Used Date Smoking Tobacco: Never Smokeless Tobacco: Never Alcohol Use Standard Drinks/Week Comments No 0 (1 standard drink = 0.6 oz pur e alcohol) PHQ-2 Answer Date Recorded PHQ-2 Score 2 06/15/2020 Comments No Sex and Gender Information Value Date Recorded Sex Assigned at Female 11/14/2020 10:33 PM CDT Legal Sex Female 3:58 AM MSWS Gender Identity other 11/14/2020 10:33 PM CDT Sexual Orientation Lesbian 06/22/2019 4: 20 AM MSWS documented as of this encounter Plan of Treatment Upcoming Encounters Date Type Department Care Team (Latest Contact Info) Description 10/29/2024 11:00 AM CDT Virtual Visit [facility] [address] [place] [address] [phone] 11/23/2024 1:30 PM CDT Office Visit [facility] [address] [phone] Melanie Boykin MD [address] [place] [address] [phone] Gloria Elizalde MD [address] [place] [address] [phone] 12/03/2024 3:00 PM CDT Office Visit [facility] [address] [place] [phone] Jesse Arvizu MD [address] [place] [address] 160716 12/15/2024 11:40 AM CDT Ancillary Procedure [facility] [address] [phone] Yudy Pompa MD [address] [place] [address] 549975 12/22/2024 11:40 AM CDT Oncology Visit [facility] [address] [place] [address] [phone] Yudy Pompa MD [address] [place] [address] 63380 02/22/2025 12:30 PM CDT Office Visit [facility] [address] [phone] Kenya Jennings MD [address] [place] [address] 738485 03/12/2025 1:00 PM MSWS Office Visit [facility] Internal Medicine [address] [phone] Mamadou Bowie MD [address] [place] [address] 10[address] 03/23/2025 8:00 AM MSWS Hospital Encounter [facility] [address] [place] [address] [phone] Kenya Jennings MD [address] [place] [address] 017275 03/23/2025 8:00 AM MSWS - 03/23/2025 12:05 PM MSWS Surgery [facility] [address] [place] [address] [phone] Kenya Jennings MD [address] [place] [address] 96050 MASTECTOMY, BILATERAL, SIMPLE, NO nipple grafts. OnQ 03/30/2025 10:00 AM MSWS Office Visit [facility] [address] [place] [phone] Lynn Parks APRN [address] 755235 04/16/2025 1:00 PM MSWS Office Visit [facility] Internal Medicine [address] [place] [phone] Mamadou Bowie MD [address] [place] [address] 89058 05/03/2025 4:00 PM MSWS Office Visit [facility] [address] [phone] Kenya Jennings MD [address] [place] [address] 195 [place], [place] 817685 08/17/2025 12:15 PM CDT Office Visit [facility] [address] [place] [phone] Herber Lopez MD [address] [place] [address] 98 [place], [place] 367865 Scheduled Procedures Name Priority Associated Diagnoses Date/Ti me MASTECTOMY, BILATERAL, FOR GENDER AFFIRMATION Gender dysphoria in adult 03/23/2025 8:00 AM MSWS documented as of this encounter Visit Diagnoses Not on filedocumented in this encounter Additional Health Concerns Assessment Noted Time PHQ-9 Depression Total Score: 5 06/15/19 21 7:06 AM MSWS documented as of this encounter Care Teams Data Control Clerk Supervisor Relationship Specialty Start Date End Date Yudy Mathews MD [address] [place] [address] 395 [place] [address] PCP - General Internal Medicine 10/17/18 04/18/21 Torey Luna MD [address] [address] PCP - General Internal Medicine 04/19/21 03/17/23 Mamadou Bowie MD [address] [place] [address] 15021 PCP - General 03/18/23 C[address] Ruiz [address] [place], [place] 996310 Resident Internal Medicine 12/07/14 Kaitlin Branch MD [address] [place], [place] 5000582 [place] [address] galvanometer assembler 01/02/16 10/17/20 Trevor Espino MD [address] [place] [address] 253855 Urology 05/16/16 Melanie Boykin MD [address] [place] [address] 281634 galvanometer assembler 12/10/16 11/07/23 Jaci Whitlock APRN HVAC MECHANIC [address] [place] [address] 395 [place], [place] 074765 Nurse Practitioner - Women's Health 12/14/16 Yudy Mathews MD [facility] [place] [address] Assigned PCP 09/24/19 07/24/20 Jaci Whitlock APRN HVAC MECHANIC 420 [facility] 395 [place] [address] Assigned OBGYN Provider 02/26/20 Shanelle Mcgowan MD 909 [place] [address] Assigned Surgical Provider 02/26/20 07/29/21 Doris Ricci MD [address] [address] Physician Internal Medicine 07/11/20 Yudy Mathews MD [facility] [place], [place] 979627 Assigned PCP 07/25/20 04/22/21 Antonette Castro PA-C [address] [place] [address] 924715 Assigned Heart and Vascular Provider 07/20/20 04/08/21 Yudy Pompa MD [address] [place] [address] 988895 Assigned Cancer Care Provider 08/21/20 Jessi Mcfadden MD [facility]0 [facility]. F282/2A [place], [place] 205154 Resident Psychiatry 11/08/20 12/23/22 Mary Carmen Rodriguez MD 420 [facility] 98 [place], [place] 260455 Dermatology 11/09/20 Herber Lopez MD [address] [place] [address] 383675 Dermapathology 11/09/20 Yomi Izquierdo DPM [address] [facility] [address] [place], [place] 011447 Assigned Musculoskeletal Provider 12/04/20 06/08/22 Antonette Castro PA-C [address] [place] [address] 501875 Assigned Gastroenterology Provider 04/09/21 07/08/21 Torey Luna MD [address] [place] [address] 370185 Assigned PCP 04/23/21 03/22/23 Herber Lopez MD [address] [place] [address] 915485 Assigned Surgical Provider 07/30/21 11/17/21 Maurilio Carlson MD [address] [place] [address] 878835 Assigned Surgical Provider 11/18/21 11/23/22 Herber Lopez MD [address] [place] [address] 649935 Assigned Surgical Provider 11/24/22 12/21/22 Gloria Elizalde MD [address] [place] [address] 304105 Resident 12/24/22 Olena Smith, COLORED LEATHER SETTER Specialty Client Manager [employer] [place] - Clinical 12/25/22 01/03/23 [place] [address] [place] [address] 00975 Assigned Surgical Provider 12/22/22 05/17/23 Mamadou Bowie MD [address] [place] [address] 69939 Assigned PCP 03/23/23 Herber Lopez MD [address] [place] [address] 440285 Assigned Surgical Provider 05/18/23 07/25/24 Makenzie Romano MD [address] [place] [address] 746804 galvanometer assembler & Neurology - Child & Adolescent Psychiatry 11/08/23 Shani Stephenson MD [address] [place] [address] 819865 Resident Psychiatry 11/08/23 Yomi Campos, PhD [address] [place] [address] 102334 Assigned Behavioral Health Provider 01/27/24 08/25/24 Ita Newton Specialty Client Manager [employer] 06/04/24 Kenya Jennings MD [address] [place] [address] 569595 Plastic Surgery 06/04/24 Herber Lopez MD [address] [place] [address] 85826 Assigned Dermatology Provider 07/26/24 Сергей Dumont, [facility] [place] 08/13/24 Kenya Jennings MD 420 [facility] 195 [place], [place] 321745 Assigned Surgical Provider 08/26/24 Jesse Arvizu MD 5775 [place] [address] Assigned Behavioral Health Provider 08/26/24 09/24/24 Luis Dudley MD 240 [place], [place] 227104 Assigned Behavioral Health Provider 09/25/24 10/25/24 Carmen Cole PA-C 6363 [facility] [address] 103 [place], [place] 403055 Assigned Sleep Provider 09/25/24 Racheal Ng MD 2450 [facility] [address] [place], [place] 797654 Assigned Behavioral Health Provider 10/26/24 documented as of this encounter
--- OUTSIDE RECORDS SUMMARY | 2024-10-28 19:13 | XMS_ITS | Encounter Summary ---
Author Organization [facility] Address [address] [place] [address] 9[address] Care Team Providers Care Tape Sewing Machine Operator Name Role Phone RichielelaCindy Unavailable [phone] Kaitlin Branch MD Unavailable +[phone] Trevor Espino MD Unavailable +[phone] Melanie Boykin MD Unavailable +[phone] Jaci Whitlock BRAZER RESISTANCE DIAMOND WHEEL EDGER Unavailable + Yudy Mathews MD Primary Care Provider [phone] Yudy Mathews MD Unavailable +[phone] Jaci Whitlock BRAZER RESISTANCE DIAMOND WHEEL EDGER Unavailable + uJan M Smith MD, Madhuri Unavailable +[phone] Doris Ricci MD Unavailable +[phone] Yudy Mathews MD Unavailable +[phone] Antonette Castro PA-C Unavailable +[phone] Yudy Pompa MD Unavailable +[phone] Jessi Mcfadden MD Unavailable + [phone] Mary Carmen Rodriguez MD Unavailable + Herber Lopez MD Unavailable +[phone] Yomi Izquierdo DPM Unavailable +[phone] Torey Luna MD Primary Care Provider + [phone] Antonette Castro PA-C Unavailable +[phone] Torey Luna MD Unavailable +[phone] Herber Lopez MD Unavailable +[phone] Maurilio Carlson MD Unavailable Herber Lopez MD Unavailable +[phone] Gloria Elizalde MD Unavailable +[phone] Olena Smith [facility] Unavailable Unavailable Maurilio Carlson MD Unavailable Mamadou Bowie MD Primary Care Provider +[phone] AzebMamadou menchaca MD Unavailable Herber Lopez MD Unavailable +[phone] Makenzie Romano MD Unavailable +[phone] Shani Stephenson MD Unavailable +[phone] Yomi Campos PhD Unavailable +[phone] Ita Newton Unavailable Unavailable Kenya Jennings MD Unavailable + [phone] Herber Lopez MD Unavailable +[phone] Сергей Dumont [facility] Unavailable Unavailable Kenya Jennings MD Unavailable + [phone] Jesse Arvizu MD Unavailable Luis Dudley MD Unavailable +[phone] Carmen Cole-C Unavailable +[phone] Racheal Ng MD Unavailable +[phone] Encounter Details Date Type Department Care Team (Late st Contact Info) Description 06/15/2020 [facility] Mental Health & Addiction Services [address] [place] [address] Yonas Day, RESOURCE CONSERVATIONIST, LADC [address] [place] [address] Social History Tobacco Use Types Packs/Day Years Used Date Smoking Tobacco: Never Smokeless Tobacco: Never Alcohol Use Standard Drinks/Week Comments No 0 (1 standard drink = 0.6 oz pur e alcohol) PHQ-2 Answer Date Recorded PHQ-2 Score 2 06/15/2020 Comments No Sex and Gender Information Value Date Recorded Sex Assigned at Female 11/14/2020 10:33 PM CDT Legal Sex Female 3:58 AM MIXER ATTENDANT Gender Identity other 11/14/2020 10:33 PM CDT Sexual Orientation Lesbian 06/22/2019 4: 20 AM MIXER ATTENDANT documented as of this encounter Plan of Treatment Upcoming Encounters Date Type Department Care Team (Latest Contact Info) Description 10/29/2024 11:00 AM CDT [facility] [address] [phone] 11/23/2024 1:30 PM CDT Office Visit [facility] Mental Health & Addiction [address] [phone] Melanie Boykin MD [address] [place] [address] [phone] Gloria Elizalde MD [address] [place] [address] 606155 12/03/2024 3:00 PM CDT Office Visit [facility] [address] [place] [phone] Jesse Arvizu MD [address] [place] [address] 203026 12/15/2024 11:40 AM CDT Ancillary Procedure [facility] Imaging Center [address] [phone] Yudy Pompa MD [address] [place] [address] 8[address] 12/22/2024 11:40 AM CDT Oncology Visit [facility] [address] [place] [address] [phone] Yudy Pompa MD [address] [place] [address] 944[address] 02/22/2025 12:30 PM CDT Office Visit [facility] Plastic and Reconstructive Surgery [facility] [address] [phone] Kenya Jennings MD [address] [place] [address] 03/12/2025 1:00 PM MIXER ATTENDANT Office Visit [facility] Clinic Internal Medicine [address] [phone] Mamadou Bowie MD [address] [place] [address] 03/23/2025 8:00 AM MIXER ATTENDANT Hospital Encounter [facility] [address] [place] [address] [phone] Kenya Jennings MD [address] [place] [address] 074465 03/23/2025 8:00 AM MIXER ATTENDANT - 03/23/2025 12:05 PM MIXER ATTENDANT Surgery [facility] [address] [place] [address] [phone] Kenya Jennings MD [address] [place] [address] 99911 MASTECTOMY, BILATERAL, SIMPLE, NO nipple grafts. OnQ 03/30/2025 10:00 AM MIXER ATTENDANT Office Visit [facility] [address] [place] [phone] Lynn Parks APRN [address] [address] 04/16/2025 1:00 PM MIXER ATTENDANT Office Visit [facility] Internal Medicine [address] [place] [phone] Mamadou Bowie MD [address] [place] [address] 295345 05/03/2025 4:00 PM MIXER ATTENDANT Office Visit [facility] [address] [phone] Kenya Jennings MD [address] [place] [address] 195 [place] [address] 08/17/2025 12:15 PM CDT Office Visit [facility] Dermatology Clinic [address] [place] [phone] Herber Lopez MD [address] [place] [address] 98 [place], [place] 985145 Scheduled Procedures Name Priority Associated Diagnoses Date/Ti me MASTECTOMY, BILATERAL, FOR GENDER AFFIRMATION Gender dysphoria in adult 03/23/2025 8:00 AM MIXER ATTENDANT documented as of this encounter Visit Diagnoses Not on filedocumented in this encounter Additional Health Concerns Assessment Noted Time PHQ-9 Depression Total Score: 5 06/16/19 21 7:05 AM MIXER ATTENDANT documented as of this encounter Care Teams Tape Sewing Machine Operator Relationship Specialty Start Date End Date Yudy Mathews MD [address] [place] [address] 395 [place] [address] PCP - General Internal Medicine 10/17/18 04/18/21 Torey Luna MD [address] [address] PCP - General Internal Medicine 04/19/21 03/17/23 Mamadou Bowie MD [address] [place] [address] 65[address] PCP - General 03/18/23 C[address] Ruiz [address] [place], [place] [phone] Resident Internal Medicine 12/07/14 Kaitlin Branch MD [address] [place], [place] 98[address] [place] [address] janitorial supervisor 01/02/16 10/17/20 Trevor Espino MD [address] [place] [address] 759745 Urology 05/16/16 Melanie Boykin MD [address] [place] [address] [phone] janitorial supervisor 12/10/16 11/07/23 Jaci Whitlock APRN DIAMOND WHEEL EDGER [address] [place] [address] [facility] [address] [place], [place] 970125 Nurse Practitioner - Women's Health 12/14/16 Yudy Mathews MD [facility] [place] [address] Assigned PCP 09/24/19 07/24/20 Jaci Whitlock APRN CNP 420 [facility] 395 [place], [place] 649325 Assigned OBGYN Provider 02/26/20 Shanelle Mcgowan MD [address] [place] [address] 24429 Assigned Surgical Provider 02/26/20 07/29/21 Doris Ricci MD [address] [phone] Physician Internal Medicine 07/11/20 Yudy Mathews MD [facility] [place], [place] 029797 Assigned PCP 07/25/20 04/22/21 Antonette Castro PA-C [address] [place] [address] [phone] Assigned Heart and Vascular Provider 07/20/20 04/08/21 Yudy Pompa MD [address] [place] [address] 347315 Assigned Cancer Care Provider 08/21/20 Jessi Mcfadden MD [address] [place] [address] F282/2A [place] [address] Resident Psychiatry 11/08/20 12/23/22 Mary Carmen Rodriguez MD 420 [facility] 98 [place], [place] 028075 Dermatology 11/09/20 Herber Lopez MD [address] [place] [address] Dermapathology 11/09/20 Yomi Izquierdo DPM [address] [facility] [address] [place], [place] 406847 Assigned Musculoskeletal Provider 12/04/20 06/08/22 Antonette Castro PA-C [address] [place] [address] [phone] Assigned Gastroenterology Provider 04/09/21 07/08/21 Torey Luna MD [address] [place] [address] 48[address] Assigned PCP 04/23/21 03/22/23 Herber Lopez MD [address] [place] [address] 15962 Assigned Surgical Provider 07/30/21 11/17/21 Maurilio Carlson MD [address] [place] [address] 54309 Assigned Surgical Provider 11/18/21 11/23/22 Herber Lopez MD [address] [place] [address] [phone] Assigned Surgical Provider 11/24/22 12/21/22 Gloria Elizalde MD [address] [place] [address] [phone] Resident 12/24/22 Olena Smith LSW Specialty Mushroom Laborer Rest Room Matron - Clinical 12/25/22 01/03/23 [place] [address] [facility] [place] [address] Assigned Surgical Provider 12/22/22 05/17/23 Mamadou Bowie MD [address] [place] [address] Assigned PCP 03/23/23 Herber Lopez MD [address] [place] [address] 995135 Assigned Surgical Provider 05/18/23 07/25/24 [place] [address] [place] [address] [phone] janitorial supervisor & Neurology - Child & Adolescent Psychiatry 11/08/23 Shani Stephenson MD [address] [place] [address] 001985 Resident Psychiatry 11/08/23 Yomi Campos, PhD [address] [place] [address] [phone] Assigned Behavioral Health Provider 01/27/24 08/25/24 Ita Newton Specialty Mushroom Laborer 06/04/24 Kenya Jennings MD [address] [place] [address] 216125 Plastic Surgery 06/04/24 Herber Lopez MD [address] [place] [address] 98 [place] [address] Assigned Dermatology Provider 07/26/24 Сергей Dumont [facility] Rest Room Matron 08/13/24 Kenya Jennings MD 420 [facility] 195 [place], [place] 422085 Assigned Surgical Provider 08/26/24 Jesse Arvizu MD 57[address] [place], [place] 925226 Assigned Behavioral Health Provider 08/26/24 09/24/24 Luis Dudley MD 240 [employer], [place] 796214 Assigned Behavioral Health Provider 09/25/24 10/25/24 Carmen Cole PA-C 6[address] [facility] [address] [place], [place] 504615 Assigned Sleep Provider 09/25/24 Racheal Ng MD 2450 [facility] [address] [place], [place] [phone] Assigned Behavioral Health Provider 10/26/24 documented as of this encounter
--- OUTSIDE RECORDS SUMMARY | 2024-10-28 19:13 | XMS_ITS | Encounter Summary ---
Author Organization [facility] Address [address] [place] [address] Care Team Providers Care Paid Internship Name Role Phone Cindy Ruiz Unavailable +[phone] Trevor Espino MD Unavailable +[phone] Jaci Whitlock APRN CHARGEMASTER ANALYST Unavailable + Doris Ricci MD Unavailable +[phone] Yudy Pompa MD Unavailable [phone] Mary Carmen Rodriguez MD Unavailable + Herber Lopez MD Unavailable +[phone] Gloria Elizalde MD Unavailable [phone] Mamadou Bowie MD Primary Care Provider +[phone] Mamadou Bowie MD Unavailable Herber Lopez MD Unavailable +[phone] Makenzie Romano MD Unavailable +[phone] Shani Stephenson MD Unavailable +[phone] Yomi Campos PhD Unavailable +[phone] Ita Newton Unavailable Unavailable Kenya Jennings MD Unavailable +[phone] Herber Lopez MD Unavailable +[phone] Сергей Dumont [facility] Unavailable Unavailable Kenya Jennings MD Unavailable +[phone] Jesse Arvizu MD Unavailable Luis Dudley MD Unavailable +[phone] Carmen Cole PA-C Unavailable +[phone] Racheal Ng MD Unavailable +[phone] Encounter Details Date Type Department Care Team (Late st Contact Info) Description 11/18/2023 [facility] Internal Medicine [address] [place] [address] [facility] Social History Tobacco Use Types Packs/Day Years [...] Date Recorded Do you have housing? (Familia g is defined as stable permanent housing and does not include staying outside in a car, in a tent, in an abandoned building, in an overnight group home, or couch-surfing.) Yes 03/18/2023 Are you worried [...] PM CDT Legal Sex Female 3:58 AM TIP STITCHER Gender Identity other 11/14/2020 10:33 PM CDT Sexual Orientation Lesbian 06/22/2019 4: 20 AM TIP STITCHER documented as of this encounter Plan of Treatment Upcoming Encounters Date Type Department Care Team (Latest Contact Info) Description 10/29/2024 11:00 AM CDT Virtual Visit [facility] [address] [phone] 11/23/2024 1:30 PM CDT Office Visit [facility] Mental Health & Addiction [address] [phone] Melanie Boykin MD [address] [place] [address] [phone] Gloria Elizalde MD [address] [place] [address] [phone] 12/03/2024 3:00 PM CDT Office Visit [facility] Psychiatry [facility] [address] [place] [phone] Jesse Arvizu MD [address] [place] [address] 341836 12/15/2024 11:40 AM CDT Ancillary Procedure [facility] Imaging Center [address] [place] [phone] Yudy Pompa MD [address] [place] [address] 604975 12/22/2024 11:40 AM CDT [facility] [address] [place] [address] [phone] Yudy Pompa MD [address] [place] [address] 295[address] 02/22/2025 12:30 PM CDT Office Visit [facility] Plastic and Reconstructive Surgery Clinic [address] [phone] Kenya Jennings MD [address] [place] [address] 951125 03/12/2025 1:00 PM TIP STITCHER Office Visit [facility] Internal Medicine [address] [phone] Mamadou Bowie MD [address] [place] [address] 164[address] 03/23/2025 8:00 AM TIP STITCHER Hospital Encounter [facility] PeriOp Services [address] [place] [address] [phone] Kenya Jennings MD [address] [place] [address] 9[address] 03/23/2025 8:00 AM TIP STITCHER - 03/23/2025 12:05 PM TIP STITCHER Surgery [facility] Per[facility]Op Services [address] [place] [address] [phone] Kenya Jennings MD [address] [place] [address] 698015 MASTECTOMY, BILATERAL, SIMPLE, NO nipple grafts. OnQ 03/30/2025 10:00 AM TIP STITCHER Office Visit [facility] Plastic and Reconstructive Surgery Clinic [address] [phone] Lynn Parks APRN [address] 188165 04/16/2025 1:00 PM TIP STITCHER Office Visit [facility] Internal Medicine [address] [phone] Mamadou Bowie MD [address] [place] [address] 83896 05/03/2025 4:00 PM TIP STITCHER Office Visit [facility] Plastic and Reconstructive Surgery Clinic [address] [phone] Kenya Jennings MD [address] [place] [address] 195 [place], [place] 090245 08/17/2025 12:15 PM CDT Office Visit [facility] Dermatology [address] [phone] Herber Lopez MD [address] [place] [address] 98 [place], [place] 199605 Scheduled Procedures Name Priority Associated Diagnoses Date/Ti me MASTECTOMY, BILATERAL, FOR GENDER AFFIRMATION Gender dysphoria in adult 03/23/2025 8:00 AM TIP STITCHER documented as of this encounter Visit Diagnoses Not on filedocumented in this encounter Additional Health Concerns Assessment Noted Time PHQ-9 Depression Total Score: 12 024 11:40 PM CDT documented as of this encounter Care Teams Paid Internship Relationship Specialty Start Date End Date Mamadou Bowie MD [address] [place] [address] PCP - General 03/18/23 Cindy [place] [place] [address] Resident Internal Medicine 12/07/14 Trevor Espino MD 909 [place] [address] Urology 05/16/16 Jaci Whitlock APRN CHARGEMASTER ANALYST 420 [facility] 395 [place], [place] 431515 Nurse Practitioner - Women's Health 12/14/16 Doris Ricci MD [address] [address] Physician Internal Medicine 07/11/20 Yudy Pompa MD [address] [place] [address] 253565 Assigned Cancer Care Provider 08/21/20 Mary Carmen Rodriguez MD 420 [facility] 98 [place], [place] 394545 Dermatology 11/09/20 Herber Lopez MD [address] [place] [address] 98 [place] [address] Dermapathology 11/09/20 Gloria Elizalde MD [address] [place] [address] 234105 Resident 12/24/22 Mamadou Bowie MD [address] [place] [address] 57025 Assigned PCP 03/23/23 Herber Lopez MD [address] [place] [address] 12878 Assigned Surgical Provider 05/18/23 07/25/24 Makenzie Romano MD [address] [place] [address] 8[address] credit associate & Neurology - Child & Adolescent Psychiatry 11/08/23 Shani Stephenson MD [address] [place] [address]47 Resident Psychiatry 11/08/23 Yomi Campos, PhD [address] [place] [address] 95755 Assigned Behavioral Health Provider 01/27/24 08/25/24 Ita Newton Specialty Puppet Maker 06/04/24 Kenya Jennings MD [address] [place] [address] 33328 Plastic Surgery 06/04/24 Herber Lopez MD [address] [place] [address] 71044 Assigned Dermatology Provider 07/26/24 Сергей Dumont, [facility] Orthopedic Tech 08/13/24 Kenya Jennings MD [address] [place] [address] 91789 Assigned Surgical Provider 08/26/24 Jesse Arvizu MD [address] [place] [address] Assigned Behavioral Health Provider 08/26/24 09/24/24 Luis Dudley MD 240 [place], [place] 950434 Assigned Behavioral Health Provider 09/25/24 10/25/24 Carmen Cole PA-C 6363 [facility] [address] [place], [place] 590085 Assigned Sleep Provider 09/25/24 Racheal Ng MD 2450 [facility] [address] [place], [place] [phone] Assigned Behavioral Health Provider 10/26/24 documented as of this encounter
--- OUTSIDE RECORDS SUMMARY | 2024-10-28 19:13 | XMS_ITS | Encounter Summary ---
Author Organization [facility] Address [address] [place] [address] Care Team Providers Care Territory Service Representative Name Role Phone Cindy Ruiz Unavailable Trevor Espino MD Unavailable [phone] Melanie Boykin MD Unavailable +[phone] Jaci Whitlock APRN SEED LABORATORY ASSISTANT Unavailable + Doris Ricci MD Unavailable Yudy Pompa MD Unavailable +[phone] Jessi Mcfadden MD Unavailable Mary Carmen Rodriguez MD Unavailable + Herber Lopez MD Unavailable +[phone] Yomi Izquierdo DPEulalia Unavailable +[phone] Torey Luna MD Primary Care Provider Torey Luna MD Unavailable +[phone] Herber Lopez MD Unavailable Maurilio Carlson MD Unavailable Herber Lopez MD Unavailable Gloria Elizalde MD Unavailable [phone] Olena Smith Unavailable Unavailable Maurilio Carlson MD Unavailable Mamadou Bowie MD Primary Care Provider [phone] Mamadou Bowie MD Unavailable Herber Lopez MD Unavailable +[phone] Makenzie Romano MD Unavailable +[phone] Shani Stephenson MD Unavailable +[phone] Yomi Campos PhD Unavailable +[phone] Ita Newton Unavailable Unavailable Kenya Jennings MD Unavailable +[phone] Herber Lopez MD Unavailable +[phone] Сергей Dumont [facility] Unavailable Unavailable Kenya Jennings MD Unavailable +[phone] Jesse Arvizu MD Unavailable Luis Dudley MD Unavailable +[phone] Carmen Cole PA-C Unavailable +[phone] Racheal Ng MD Unavailable + [phone] Encounter Details Date Type Department Care Team (Late st Contact Info) Description 08/15/2021 [facility] [address] [place] [phone] Yudy Pompa MD [address] [place] [address] Social History Tobacco Use Types Packs/Day [...] PM CDT Legal Sex Female 3:58 AM TELEPHONE SURVEYOR Gender Identity other 11/14/2020 10:33 PM CDT Sexual Orientation Lesbian 06/22/2019 4: 20 AM TELEPHONE SURVEYOR COVID-19 Exposure Response Date Recorded In the last 10 days, have yoni u been in contact with someone who was confirmed or suspected to have Coronavirus/COVID-19? No / Unsure 08/14/2021 11:50 AM CDT documented as of this encounter Plan of Treatment Upcoming Encounters Date Type Department Care Team (Latest Contact Info) Description 10/29/2024 11:00 AM CDT [facility] [address] [facility] [address] [place] [phone] 11/23/2024 1:30 PM CDT Office Visit [facility] Mental Health & Addiction [address] F[address] [phone] Melanie Boykin MD [address] [place] [address] [phone] Gloria Elizalde MD 420 [place], [place] [phone] 12/03/2024 3:00 PM CDT Office [facility] [address] [facility] [address] [place] [phone] Jesse Arvizu MD [address] [place] [address] 12/15/2024 11:40 AM CDT Ancillary Procedure [facility] Imaging Center [facility] Clinic [address] 1st [place] [phone] Yudy Pompa MD [address] [place] [address] [id number] 12/22/2024 11:40 AM CDT Oncology Visit [facility] [address] [place] [phone] Yudy Pompa MD [address] [place] [address] [phone] 02/22/2025 12:30 PM CDT Office Visit [facility] Plastic and Reconstructive Surgery Clinic [address] [phone] Kenya Jennings MD [address] [place] [address] 03/12/2025 1:00 PM TELEPHONE SURVEYOR Office Visit [facility] Internal Medicine [address] [phone] Mamadou Bowie MD [address] [place] [address] 03/23/2025 8:00 AM TELEPHONE SURVEYOR Hospital Encounter [facility] [address] [place] [address] [phone] Kenya Jennings MD [address] [place] [address] 03/23/2025 8:00 AM TELEPHONE SURVEYOR - 03/23/2025 12:05 PM TELEPHONE SURVEYOR Surgery [facility] [address] [place] [address] [phone] Kenya Jennings MD [address] [place] [address] 54191 MASTECTOMY, BILATERAL, SIMPLE, NO nipple grafts. OnQ 03/30/2025 10:00 AM TELEPHONE SURVEYOR Office Visit [facility] [address] [phone] Lnyn Parks APRN [address] [address] 04/16/2025 1:00 PM TELEPHONE SURVEYOR Office Visit [facility] Internal Medicine [address] [place] [phone] Mamadou Bowie MD [address] [place] [address] 05/03/2025 4:00 PM TELEPHONE SURVEYOR Office Visit [facility] [address] [place] [phone] Kenya Jennings MD [address] [place] [address] 195 [place], [place] 709545 08/17/2025 12:15 PM CDT Office Visit [facility] Dermatology Clinic [address] [place] [phone] Herber Lopez MD [address] [place] [address] 98 [place], [place] 826735 Scheduled Procedures Name Priority Associated Diagnoses Date/Ti me MASTECTOMY, BILATERAL, FOR GENDER AFFIRMATION Gender dysphoria in adult 03/23/2025 8:00 AM TELEPHONE SURVEYOR documented as of this encounter Visit Diagnoses Not on filedocumented in this encounter Additional Health Concerns Assessment Noted Time PHQ-9 Depression Total Score: 5 07/14/19 22 7:03 AM TELEPHONE SURVEYOR documented as of this encounter Care Teams Territory Service Representative Relationship Specialty Start Date End Date Torey Luna MD [address] [place] [address] 16887 PCP - General Internal Medicine 04/19/21 03/17/23 Mamadou Bowie MD [address] [place] [address] 42350 PCP - General 03/18/23 Cindy Ruiz [address] [place] [phone] Resident Internal Medicine 12/07/14 Trevor Espino MD [address] [place] [address] 95181 Urology 05/16/16 Melanie Boykin MD [address] [place] [address] 30890 senior planning analyst 12/10/16 11/07/23 Jaci Whitlock APRN [facility] [address] [place] [address] [phone] Nurse Practitioner - Women's Health 12/14/16 Doris Ricci MD [facility] [address] [address] Physician Internal Medicine 07/11/20 Yudy Pompa MD [address] [place] [address] [phone] Assigned Cancer Care Provider 08/21/20 Jessi Mcfadden MD [address] [place] [address] F282/2A [place], [place] 393134 Resident Psychiatry 11/08/20 12/23/22 Mary Carmen Rodriguez MD [address] [place] [address] [phone] Dermatology 11/09/20 Herber Lopez MD [address] [place] [address]67 Dermapathology 11/09/20 Yomi Izquierdo DPM 00263 [facility] [address] [place] [address] Assigned Musculoskeletal Provider 12/04/20 06/08/22 Torey Luna MD [address] [place] [address] 36474 Assigned PCP 04/23/21 03/22/23 Herber Lopez MD [address] [place] [address] 18559 Assigned Surgical Provider 07/30/21 11/17/21 Maurilio Carlson MD [address] [place] [address] 21449 Assigned Surgical Provider 11/18/21 11/23/22 Herber Lopez MD [address] [place] [address] 12827 Assigned Surgical Provider 11/24/22 12/21/22 Gloria Elizalde MD [address] [place] [address] Resident 12/24/22 Olena Smith LSW Specialty Utility Plant Operative Push Connector Assembler - Clinical 12/25/22 01/03/23 [place] [address] [place] [address] Assigned Surgical Provider 12/22/22 05/17/23 Mamadou Bowie MD 909 [place] [address] Assigned PCP 03/23/23 Herber Lopez MD 420 [facility] 98 [place] [address] Assigned Surgical Provider 05/18/23 07/25/24 Makenzie Romano MD [address] [phone] senior planning analyst & Neurology - Child & Adolescent Psychiatry 11/08/23 Shani Stephenson MD 420 [place], [place] 998335 Resident Psychiatry 11/08/23 Yomi Campos, PhD [address] [place] [address] 947264 Assigned Behavioral Health Provider 01/27/24 08/25/24 Ita Newton Specialty Utility Plant Operative 06/04/24 Kenya Jennings MD [address] [place] [address] Plastic Surgery 06/04/24 Herber Lopez MD [address] [address] Assigned Dermatology Provider 07/26/24 Сергей Dumont, [facility] Push Connector Assembler 08/13/24 Kenya Jennings MD [address] [place] [address] 306695 Assigned Surgical Provider 08/26/24 Jesse Arvizu MD [address] [place] [address] Assigned Behavioral Health Provider 08/26/24 09/24/24 Luis Dudley MD [address] [place], [place] [phone] Assigned Behavioral Health Provider 09/25/24 10/25/24 Carmen Cole PA-C 6363 [facility] [address] [place], [place] 926565 Assigned Sleep Provider 09/25/24 Racheal Ng MD 2450 [facility] [address] [place], [place] [phone] Assigned Behavioral Health Provider 10/26/24 documented as of this encounter
--- OUTSIDE RECORDS SUMMARY | 2024-10-28 19:13 | XMS_ITS | Encounter Summary ---
Author Organization [facility] Address [address] [place] [address] 19672 Care Team Providers Care Wrong Address Clerk Name Role Phone RichielelaCindy Unavailable [phone] Kaitlin Branch MD Unavailable +[phone] Trevor Espino MD Unavailable [phone] Melanie Boykin MD Unavailable [phone] Jaci Whitlock NAILER MACHINE RESIDENT PHYSICIAN Unavailable + Yudy Mathews MD Primary Care Provider [phone] Yudy Mathews MD Unavailable +[phone] Jaci Whitlock NAILER MACHINE RESIDENT PHYSICIAN Unavailable + Juan M Smith MD, Madhuri Unavailable +[phone] Doris Ricci MD Unavailable +[phone] Yudy Mathews MD Unavailable +[phone] Antonette Castro PA-C Unavailable +[phone] Yudy Pompa MD Unavailable +[phone] Jessi Mcfadden MD Unavailable + [phone] Mary Carmen Rodriguez MD Unavailable + Herber Lopez MD Unavailable +[phone] Yomi Izquierdo DPM Unavailable +[phone] Torey Luna MD Primary Care Provider + [phone] Antonette Castro-C Unavailable +[phone] Torey Luna MD Unavailable +[phone] Herber Lopez MD Unavailable +[phone] Maurilio Carlson MD Unavailable Herber Lopez MD Unavailable +[phone] Gloria Elizalde MD Unavailable +[phone] Olena Smith [facility] Unavailable Unavailable Maurilio Carlson MD Unavailable Mamadou Bowie MD Primary Care Provider +[phone] AzebMamadou menchaca MD Unavailable Herber Lopez MD Unavailable +[phone] Makenzie Romano MD Unavailable +[phone] Shani Stephenson MD Unavailable +[phone] Yomi Campos PhD Unavailable +[phone] Ita Newton Unavailable Unavailable Kenya Jennings MD Unavailable + [phone] Herber Lopez MD Unavailable +[phone] Сергей Dumont [facility] Unavailable Unavailable Kenya Jennings MD Unavailable + [phone] Jesse Arvizu MD Unavailable Luis Dudley MD Unavailable +[phone] Carmen Cole-C Unavailable +[phone] Racheal Ng MD Unavailable +[phone] Encounter Details Date Type Department Care Team (Late st Contact Info) Description 06/14/2020 [facility] [address] [facility] [address] [place] [address] Kimberley Salmeron, [facility] 2450 [place] [address] Social History Tobacco Use Types Packs/Day Years Used Date Smoking Tobacco: Never Smokeless Tobacco: Never Alcohol Use Standard Drinks/Week Comments No 0 (1 standard drink = 0.6 oz pur e alcohol) PHQ-2 Answer Date Recorded PHQ-2 Score 2 06/15/2020 Comments No Sex and Gender Information Value Date Recorded Sex Assigned at Female 11/14/2020 10:33 PM CDT Legal Sex Female 3:58 AM BENCH LATHE OPERATOR Gender Identity other 11/14/2020 10:33 PM CDT Sexual Orientation Lesbian 06/22/2019 4: 20 AM BENCH LATHE OPERATOR documented as of this encounter Plan of Treatment Upcoming Encounters Date Type Department Care Team (Latest Contact Info) Description 10/29/2024 11:00 AM CDT Virtual Visit [facility] [address] [place] [address] [phone] 11/23/2024 1:30 PM CDT Office Visit [facility] Mental Health & Addiction [address] [phone] Melanie Boykin MD [address] [place] [address] [phone] Gloria Elizalde MD [address] [place] [address] 358385 12/03/2024 3:00 PM CDT Office Visit [facility] [address] [place] [phone] Jesse Arvizu MD [address] [place] [address] 416166 12/15/2024 11:40 AM CDT Ancillary Procedure [facility] Imaging [address] [phone] Yudy Pompa MD [address] [place] [address] 228155 12/22/2024 11:40 AM CDT Oncology Visit [facility] Cancer Clinic [address] [place] [address] [phone] Yudy Pompa MD [address] [place] [address] 02/22/2025 12:30 PM CDT Office Visit [facility] Plastic and Reconstructive Surgery Clinic [address] [phone] Kenya Jennings MD [address] [place] [address] 218955 03/12/2025 1:00 PM BENCH LATHE OPERATOR Office Visit [facility] Clinic Internal Medicine [address] [phone] Mamadou Bowie MD [address] [place] [address] 03/23/2025 8:00 AM BENCH LATHE OPERATOR Hospital Encounter [facility] PeriOp Services [address] [place] [address] [phone] Kenya Jennings MD [address] [place] [address] 785745 03/23/2025 8:00 AM BENCH LATHE OPERATOR - 03/23/2025 12:05 PM BENCH LATHE OPERATOR Surgery [facility] [address] [place] [address] [phone] Kenya Jennings MD [address] [place] [address] 19514 MASTECTOMY, BILATERAL, SIMPLE, NO nipple grafts. OnQ 03/30/2025 10:00 AM BENCH LATHE OPERATOR Office Visit [facility] Plastic and Reconstructive Surgery Clinic [address] [place] [phone] Lynn Parks APRN [address] 584375 04/16/2025 1:00 PM BENCH LATHE OPERATOR Office Visit [facility] Internal Medicine [address] [place] [phone] Mamadou Bowie MD [address] [place] [address] 05/03/2025 4:00 PM BENCH LATHE OPERATOR Office Visit [facility] Plastic and Reconstructive Surgery Clinic [address] [phone] Kenya Jennings MD [address] [place] [address] 195 [place], [place] 7[address]65 08/17/2025 12:15 PM CDT Office Visit [facility] Dermatology Clinic [address] [place] [phone] Herber Lopez MD [address] [place] [address] 98 [place], [place] [address] Scheduled Procedures Name Priority Associated Diagnoses Date/Ti me MASTECTOMY, BILATERAL, FOR GENDER AFFIRMATION Gender dysphoria in adult 03/23/2025 8:00 AM BENCH LATHE OPERATOR documented as of this encounter Visit Diagnoses Not on filedocumented in this encounter Additional Health Concerns Assessment Noted Time PHQ-9 Depression Total Score: 5 06/15/19 21 7:06 AM BENCH LATHE OPERATOR documented as of this encounter Care Teams Wrong Address Clerk Relationship Specialty Start Date End Date Yudy Mathews MD [address] [place] [address] 395 [place] [address] PCP - General Internal Medicine 10/17/18 04/18/21 Torey Luna MD [address] [address] PCP - General Internal Medicine 04/19/21 03/17/23 Mamadou Bowie MD [address] [place] [address] 80012 PCP - General 03/18/23 Cindy Ruiz [address] [place], [place] 653670 Resident Internal Medicine 12/07/14 Kaitlin Branch MD [address] [place], [place] 960[address]82 [place] [address] business banking officer 01/02/16 10/17/20 Trevor Espino MD [address] [place] [address] [phone] Urology 05/16/16 Melanie Boykin MD [address] [place] [address] 532894 business banking officer 12/10/16 11/07/23 Jaci Whitlock APRN RESIDENT PHYSICIAN [address] [place] [address] 395 [place], [place] 354105 Nurse Practitioner - Women's Health 12/14/16 Yudy Mathews MD [facility] [place] [address] Assigned PCP 09/24/19 07/24/20 Jaci Whitlock APRN RESIDENT PHYSICIAN 420 [facility] 395 [place] [address] Assigned OBGYN Provider 02/26/20 Shanelle Mcgowan MD [address] [place] [address] Assigned Surgical Provider 02/26/20 07/29/21 Doris Ricci MD [address] [address] Physician Internal Medicine 07/11/20 Yudy Mathews MD [facility] [place], [place] 411267 Assigned PCP 07/25/20 04/22/21 Antonette Castro PA-C [address] [place] [address] 768145 Assigned Heart and Vascular Provider 07/20/20 04/08/21 Yudy Pompa MD [address] [place] [address] [phone] Assigned Cancer Care Provider 08/21/20 Jessi Mcfadden MD [facility]. F282/2A [place], [place] 066904 Resident Psychiatry 11/08/20 12/23/22 Mary Carmen Rodriguez MD 420 [facility] 98 [place], [place] 388085 Dermatology 11/09/20 Herber Lopez MD [address] [place] [address] 281035 Dermapathology 11/09/20 Yomi Izquierdo DPM [address] [facility] [address] [place], [place] 444677 Assigned Musculoskeletal Provider 12/04/20 06/08/22 Antonette Castro PA-C [address] [place] [address] 866945 Assigned Gastroenterology Provider 04/09/21 07/08/21 Torey Luna MD [address] [place] [address] 178355 Assigned PCP 04/23/21 03/22/23 Herber Lopez MD [address] [place] [address] 553605 Assigned Surgical Provider 07/30/21 11/17/21 Maurilio Carlson MD [address] [place] [address] 896525 Assigned Surgical Provider 11/18/21 11/23/22 Herber Lopez MD [address] [place] [address] [phone] Assigned Surgical Provider 11/24/22 12/21/22 Gloria Elizalde MD [address] [place] [address] [phone] Resident 12/24/22 Oelna Smith, FOOD SERVICE SALES REPRESENTATIVES Specialty Laboratory Equipment Cleaner Jig Bore Tool Maker - Clinical 12/25/22 01/03/23 [place] [address] [place] [address] 48347 Assigned Surgical Provider 12/22/22 05/17/23 Mamadou Bowie MD [address] [place] [address] 44758 Assigned PCP 03/23/23 Herber Lopez MD [address] [place] [address] 705685 Assigned Surgical Provider 05/18/23 07/25/24 Makenzie Romano MD [address] [place] [address] 489344 business banking officer & Neurology - Child & Adolescent Psychiatry 11/08/23 Shani Stephenson MD [address] [place] [address] 149755 Resident Psychiatry 11/08/23 Yomi Campos, PhD [address] [place] [address] [phone] Assigned Behavioral Health Provider 01/27/24 08/25/24 Ita Newton Specialty Laboratory Equipment Cleaner 06/04/24 Kenya Jennings MD [address] [place] [address] 576405 Plastic Surgery 06/04/24 Herber Lopez MD [address] [place] [address] 9[address]86 Assigned Dermatology Provider 07/26/24 Сергей Dumont, [facility] Jig Bore Tool Maker 08/13/24 Kenya Jennings MD 420 [facility] 195 [place], [place] 467135 Assigned Surgical Provider 08/26/24 Jesse Arvizu MD 5775 [place] [address] Assigned Behavioral Health Provider 08/26/24 09/24/24 Luis Dudley MD 240 [place], [place] 837304 Assigned Behavioral Health Provider 09/25/24 10/25/24 Carmen Cole PA-C 6363 [facility] [address] [place], [place] 546305 Assigned Sleep Provider 09/25/24 Racheal Ng MD 2450 [facility] [address] [place], [place] 326064 Assigned Behavioral Health Provider 10/26/24 documented as of this encounter
--- OUTSIDE RECORDS SUMMARY | 2024-10-28 19:14 | XMS_ITS | Encounter Summary ---
Author Organization [facility] Address [address] [place] [address] 21862 Care Team Providers Care Manager Of Financial Planning Name Role Phone Cindy Ruiz Unavailable [phone] Trevor Espino MD Unavailable [phone] Melanie Boykin MD Unavailable [phone] Jaci Whitlock APRN STEAM PIPE FITTER Unavailable + Doris Ricci MD Unavailable Yudy Pompa MD Unavailable [phone] Mary Carmen Rodriguez MD Unavailable + Herber Lopez MD Unavailable [phone] Gloria Elizalde MD Unavailable [phone] Mamadou Bowie MD Primary Care Provider [phone] Mamadou Bowie MD Unavailable Herber Lopez MD Unavailable +[phone] Makenzie Romano MD Unavailable [phone] Shani Stephenson MD Unavailable [phone] Yomi Campos PhD Unavailable [phone] Ita Newton Unavailable Unavailable Kenya Jennings MD Unavailable Herber Lopez MD Unavailable +[phone] Сергей Dumont [facility] Unavailable Unavailable Kenya Jennings MD Unavailable [phone] Jesse Arvizu MD Unavailable Luis Dudley MD Unavailable [phone] Carmen Cole PA-C Unavailable +[phone] Racheal Ng MD Unavailable [phone] Encounter Details Date Type Department Care Team (Late st Contact Info) Description 06/07/2023 [facility] Clinic [address] [place] [address] [facility] Social History Tobacco Use Types Packs/Day Years Used Date Smoking Tobacco: Never Smokeless Tobacco: Never Alcohol Use Standard Drinks/Week Comments Yes 0 (1 standard drink = 0.6 oz pur e alcohol) 1 drink every couple of weeks PHQ-2 Answer Date Recorded PHQ-2 Score 2 04/22/2023 Adolescent Education Answer Date Record ed Getting [...] in an abandoned building, in an overnight fdc, or couch-surfing.) Yes 03/18/2023 Are you worried [...] PM CDT Legal Sex Female 3:58 AM AUTOMATIC PACKER OPERATOR Gender Identity other 11/14/2020 10:33 PM CDT Sexual Orientation Lesbian 06/22/2019 4: 20 AM AUTOMATIC PACKER OPERATOR documented as of this encounter Plan of Treatment Upcoming Encounters Date Type Department Care Team (Latest Contact Info) Description 10/29/2024 11:00 AM CDT Virtual Visit [facility] [address] [place] [address] [phone] 11/23/2024 1:30 PM CDT Office Visit [facility] Mental Health & Addiction [address] [phone] Melanie Boykin MD [address] [place] [address] [phone] Gloria Elizalde MD [address] [place], [place] 265285 12/03/2024 3:00 PM CDT [facility] [address] [place] [address] [place] [phone] Jesse Arvizu MD [address] [place] [address] 159856 12/15/2024 11:40 AM CDT Ancillary Procedure [facility] [address] [phone] Yudy Pompa MD [address] [place] [address] 53312 12/22/2024 11:40 AM CDT Oncology Visit [facility] [address] [place] [address] [phone] Yudy Pompa MD [address] [place] [address] 14316 02/22/2025 12:30 PM CDT Office Visit [facility] Pl[facility] and Re[facility]ive Surgery Clinic [address] [phone] Kenya Jennings MD [address] [place] [address] 27245 03/12/2025 1:00 PM AUTOMATIC PACKER OPERATOR Office Visit [facility] Internal Medicine [address] [phone] Mamadou Bowie MD [address] [place] [address] 95331 03/23/2025 8:00 AM AUTOMATIC PACKER OPERATOR Hospital Encounter [facility] PeriOp Services [address] [place] [address] [place] [facility] [place] [phone] Kenya Jennings MD [address] [place] [address] 30389 03/23/2025 8:00 AM AUTOMATIC PACKER OPERATOR - 03/23/2025 12:05 PM AUTOMATIC PACKER OPERATOR Surgery [facility] [address] [place] [address] [place] [phone] Kenya Jennings MD [address] [place] [address] 35410 MASTECTOMY, BILATERAL, SIMPLE, NO nipple grafts. OnQ 03/30/2025 10:00 AM AUTOMATIC PACKER OPERATOR Office Visit [facility] [address] [phone] Lynn Parks APRN [address] [address] 04/16/2025 1:00 PM AUTOMATIC PACKER OPERATOR Office Visit [facility] Internal Medicine [address] [phone] Mamadou Bowie MD [address] [place] [address] 815285 05/03/2025 4:00 PM AUTOMATIC PACKER OPERATOR Office Visit [facility] [address] [phone] Kenya Jennings MD [address] [place] [address] 195 [place] [address] 08/17/2025 12:15 PM CDT Office Visit [facility] Dermatology Clinic [address] [phone] Herber Lopez MD [address] [place] [address] 98 [place], [place] 974015 Scheduled Procedures Name Priority Associated Diagnoses Date/Ti me MASTECTOMY, BILATERAL, FOR GENDER AFFIRMATION Gender dysphoria in adult 03/23/2025 8:00 AM AUTOMATIC PACKER OPERATOR documented as of this encounter Visit Diagnoses Not on filedocumented in this encounter Additional Health Concerns Assessment Noted Time PHQ-9 Depression Total Score: 6 04/21/20 6:42 PM AUTOMATIC PACKER OPERATOR documented as of this encounter Care Teams Manager Of Financial Planning Relationship Specialty Start Date End Date Mamadou Bowie MD [address] [place] [address] [phone] PCP - General 03/18/23 [address] [place] [address] Resident Internal Medicine 12/07/14 Trevor Espino MD 909 [place], [place] 650845 Urology 05/16/16 Melanie Boykin MD [address] [place] [address] 790254 medical staffing coordinator 12/10/16 11/07/23 Jaci Whitlock APRN CNP 420 [facility] 395 [place], [place] 453755 Nurse Practitioner - Women's Health 12/14/16 Doris Ricci MD [facility] & [address] [address] Physician Internal Medicine 07/11/20 Yudy Pompa MD 909 [place], [place] 680015 Assigned Cancer Care Provider 08/21/20 Mary Carmen Rodriguez MD 420 [facility] 98 [place], [place] 185495 Dermatology 11/09/20 Herber Lopez MD 420 [facility] 98 [place] [address] Dermapathology 11/09/20 Gloria Elizalde MD 420 [place] [address] Resident 12/24/22 Mamadou Bowie MD [address] [place] [address] 70286 Assigned PCP 03/23/23 Herber Lopez MD [address] [place] [address] 86014 Assigned Surgical Provider 05/18/23 07/25/24 Makenzie Romano MD [address] [place] [address] 984644 medical staffing coordinator & Neurology - Child & Adolescent Psychiatry 11/08/23 Shani Stephenson MD [address] [place] [address] [phone] Resident Psychiatry 11/08/23 Yomi Campos, PhD [address] [place] [address] 43918 Assigned Behavioral Health Provider 01/27/24 08/25/24 Ita Newton Specialty Scrap Drop Operator 06/04/24 Kenya Jennings MD [address] [place] [address] 19593 Plastic Surgery 06/04/24 Herber Lopez MD [address] [place] [address] 49223 Assigned Dermatology Provider 07/26/24 Сергей Dumont, [facility] Washer Meat 08/13/24 Kenya Jennings MD 420 [facility] 195 [place], [place] 578385 Assigned Surgical Provider 08/26/24 Jesse Arvizu MD 5775 [place], [place] 473196 Assigned Behavioral Health Provider 08/26/24 09/24/24 Luis Dudley MD [address] [place], [place] [address] Assigned Behavioral Health Provider 09/25/24 10/25/24 Carmen Cole PA-C 6363 [facility] [place] [address] [place], [place] 424215 Assigned Sleep Provider 09/25/24 Racheal Ng MD 2450 [facility] [place] [address] Assigned Behavioral Health Provider 10/26/24 documented as of this encounter
--- OUTSIDE RECORDS SUMMARY | 2024-10-28 19:14 | XMS_ITS | Encounter Summary ---
Author Organization [facility] Address [address] [place] [address] 68191 Care Team Providers Care Alterations Expert Name Role Phone Cindy Ruiz Unavailable Trevor Espino MD Unavailable [phone] Jaci Whitlock APRN AIR DEFENCE OFFICER Unavailable + Doris Ricci MD Unavailable [phone] Yudy Pompa MD Unavailable [phone] Mary Carmen Rodriguez MD Unavailable + Herber Lopez MD Unavailable [phone] Gloria Elizalde MD Unavailable [phone] Mamadou Bowie MD Primary Care Provider [phone] Mamadou Bowie MD Unavailable Makenzie Romano MD Unavailable [phone] Shani Stephenson MD Unavailable Ita Newton Unavailable Unavailable Kenya Jennings MD Unavailable [phone] Herber Lopez MD Unavailable [phone] Сергей Dumont [facility] Unavailable Unavailable Kenya Jennings MD Unavailable [phone] Jesse Arvizu MD Unavailable Luis Dudley MD Unavailable [phone] Carmen Cole PA-C Unavailable [phone] Reason for Visit * Reason Onset Date Comments Reschedule Surgery 09/21/2024 Dr. Jennings Encounter Details Date Type Department Care Team (Late st Contact Info) Description 09/21/2024 Telephone [facility] Plastic and Reconstructive Surgery Clinic [address] 4th [place] [address] Kenya Jennings MD 420 [facility] 195 [place], [place] 465925 Reschedule Surgery (Dr. Jennings) Social History Tobacco Use Types Packs/Day Years [...] Answer Date Recorded PHQ-2 Score 2 09/25/2024 [facility] - Occupational [...] in an abandoned building, in an overnight nursing home, or couch-surfing.) Yes 04/03/2024 Are you [...] PM CDT Legal Sex Female 3:58 AM FINANCIAL SYSTEMS ADMINISTRATOR Gender Identity other 11/14/2020 10:33 PM CDT Sexual Orientation Lesbian 06/22/2019 4: 20 AM FINANCIAL SYSTEMS ADMINISTRATOR documented as of this encounter Miscellaneous Notes * Telephone Encounter - Jeniffer Rogers - 09/25/2024 9:53 AM CDT Rescheduled surgery per Oh [employer] messages Date of Surgery: 03/23 Estimated Arrival time Discussed with Patient: No Location of surgery: [facility] Pre-operative H&P: patient confirmed they will schedule with Mamadou Bowie MD Pre-surgical Consult: 02/22 at 12:30 PM Additional Appointments: N/A, no additional visits requested Post-operative Appointments: Lynn Parks APRN CNP 03/30 at 10:[address] Jennings 05/03 at 4:00 PM Discussed with patient pre-op RN will call 2-3 days prior to surgery with arrival time and instructions: Yes Standard Surgery Packet: Not Applicable Additional Comments: N/A All patients questions were answered and was instructed to contact the clinic with any questions orconcerns. Jeniffer Rogers on 09/25/2024 at 9:53 AM * Telephone Encounter - Jeniffer Rogers - 09/23/2024 12:26 PM CDT Attempted to call patient regarding rescheduling surgery with Dr. Jennings Was unable to leave voicemail MyChart sent Provided direct contact line to discuss scheduling Jeniffer Rogers on 09/23/2024 at 12:26 PM * Telephone Encounter - Emanuel Godinez - 09/21/2024 11:58 AM CDT Patient left voicemail that she would like to reschedule 03/03/[address] Jennings to mid-March. documented in this encounter Plan of Treatment Upcoming Encounters Date Type Department Care Team (Latest Contact Info) Description 10/29/2024 11:00 AM CDT [facility] [address] [facility] [address] [place] [phone] 11/23/2024 1:30 PM CDT Office Visit [facility] Mental Health & Addiction [address] [address] [phone] Melanie Boykin MD 9[address] [place], [place] [phone] Gloria Elizalde MD [address] [place] [address] 453245 12/03/2024 3:00 PM CDT [facility] [address] [facility] [address] [place] [phone] Jesse Arvizu MD 5775 [place] [address] 12/15/2024 11:40 AM CDT Ancillary Procedure [facility] Imaging Center CT Clinic [address] [phone] Yudy Pompa MD [address] [place] [address] 276835 12/22/2024 11:40 AM CDT Oncology Visit [facility] [address] [place] [address] [phone] Yudy Pompa MD [address] [place] [address] 493615 02/22/2025 12:30 PM CDT Office Visit [facility] Plastic and Reconstructive Surgery Clinic [address] 4th [place] [phone] Kenya Jennings MD [address] [place] [address] 353175 03/12/2025 1:00 PM FINANCIAL SYSTEMS ADMINISTRATOR Office Visit [facility] Internal Medicine [address] [phone] Mamadou Bowie MD [address] [place] [address] 948785 03/23/2025 8:00 AM FINANCIAL SYSTEMS ADMINISTRATOR Hospital Encounter [facility] [place] [phone] Kenya Jennings MD [address] [place] [address] 20160 03/23/2025 8:00 AM FINANCIAL SYSTEMS ADMINISTRATOR - 03/23/2025 12:05 PM FINANCIAL SYSTEMS ADMINISTRATOR Surgery [facility] [place] [facility] [place] [phone] Kenya Jennings MD [address] [place] [address] 829915 MASTECTOMY, BILATERAL, SIMPLE, NO nipple grafts. OnQ 03/30/2025 10:00 AM FINANCIAL SYSTEMS ADMINISTRATOR Office Visit [facility] Plastic and Reconstructive Surgery Clinic [address] [phone] Lynn Parks APRN [address] [address] 04/16/2025 1:00 PM FINANCIAL SYSTEMS ADMINISTRATOR Office Visit [facility] Internal Medicine [address] [phone] Mamadou Bowie MD [address] [place] [address] 05/03/2025 4:00 PM FINANCIAL SYSTEMS ADMINISTRATOR Office Visit [facility] Plastic and Reconstructive Surgery Clinic [address] [place] [phone] Kenya Jennings MD [address] [place] [address] 519545 08/17/2025 12:15 PM CDT Office Visit [facility] Dermatology Clinic [address] 3rd [place] [phone] Herber Lopez MD 420 [facility] 98 [place], [place] 853135 Scheduled Procedures Name Priority Associated Diagnoses Date/Ti me MASTECTOMY, BILATERAL, FOR GENDER AFFIRMATION Gender dysphoria in adult 03/23/2025 8:00 AM FINANCIAL SYSTEMS ADMINISTRATOR documented as of this encounter Goals Goal [...] documented as of this encounter Care Teams Alterations Expert Relationship Specialty Start Date End Date Mamadou Bowie MD 909 [place], [place] 536265 PCP - General 03/18/23 Cindy Ruiz [facility] [address] [place] [address] Resident Internal Medicine 12/07/14 Trevor Espino MD 909 [place], [place] [phone] Urology 05/16/16 Jaci Whitlock APRN AIR DEFENCE OFFICER 420 [facility] 395 [place], [place] 477175 Nurse Practitioner - Women's Health 12/14/16 Doris Ricci MD [facility] & [address] [address] Physician Internal Medicine 07/11/20 Yudy Pompa MD [address] [place] [address] 520075 Assigned Cancer Care Provider 08/21/20 Mary Carmen Rodriguez MD [address] [place] [address] 98 [place], [place] 199035 Dermatology 11/09/20 Herber Lopez MD [address] [place] [address] 98 [place], [place] 774105 Dermapathology 11/09/20 Gloria Elizalde MD [address] [place] [address] [phone] Resident 12/24/22 Mamadou Bowie MD [address] [place] [address] 173005 Assigned PCP 03/23/23 Makenzie Romano MD [address] [place] [address] [phone] barge engineer & Neurology - Child & Adolescent Psychiatry 11/08/23 Shani Stephenson MD [address] [place] [address] 896385 Resident Psychiatry 11/08/23 Ita Newton Specialty Sandwich Artist 06/04/24 Kenya Jennings MD [address] [place] [address] 166625 Plastic Surgery 06/04/24 Herber Lopez MD 420 [facility] 98 [place] [address] Assigned Dermatology Provider 07/26/24 Сергей Dumont [facility] Cordwood Cutter 08/13/24 Kenya Jennings MD 420 [facility] 195 [place], [place] 659835 Assigned Surgical Provider 08/26/24 Jesse Arvizu MD 5775 [place], [place] 663396 Assigned Behavioral Health Provider 08/26/24 09/24/24 Luis Dudley MD [address] [place] [address] 019814 Assigned Behavioral Health Provider 09/25/24 10/25/24 Carmen Cole PA-C [address] 478625 Assigned Sleep Provider 09/25/24 documented as of this encounter
--- OUTSIDE RECORDS SUMMARY | 2024-10-28 19:14 | XMS_ITS | Encounter Summary ---
Author Organization [facility] Address [address] [place] [address] 6[address] Care Team Providers Care Public Affairs Specialist Name Role Phone Cindy Ruiz Unavailable Trevor Espino MD Unavailable [phone] Jaci Whitlock APRN LICENSED PRACTICAL VOCATIONAL NURSE Unavailable + Doris Ricci MD Unavailable [phone] Yudy Pompa MD Unavailable Mary Carmen Rodriguez MD Unavailable + Herber Lopez MD Unavailable [phone] Gloria Elizalde MD Unavailable [phone] Mamadou Bowie MD Primary Care Provider [phone] Mamadou Bowie MD Unavailable Makenzie Romano MD Unavailable [phone] Shani Stephenson MD Unavailable [phone] Ita Newton Unavailable Unavailable Kenya Jennings MD Unavailable [phone] Herber Lopez MD Unavailable [phone] Сергей Dumont [facility] Unavailable Unavailable Kenya Jennings MD Unavailable [phone] Jesse Arvizu MD Unavailable Encounter Details Date Type Department Care Team (Latest Contact Info) Description 09/18/2024 Travel Social History Tobacco Use Types Packs/Day [...] relatives? Three times a week 04/02/2024 Attends Alevism Services Not on file 04/02 Active Member of Clubs or Organizations Not on f ile 04/02/2024 Attends Club or Organization Meetings Not on jd e 04/02/2024 Marital Status Not on file 04/02/2024 PHQ-2 Answer Date Recorded PHQ-2 Score 3 09/18/2024 [facility] [...] PM CDT Legal Sex Female 3:58 AM EAR PULL MACHINE OPERATOR Gender Identity other 11/14/2020 10:33 PM CDT Sexual Orientation Lesbian 06/22/2019 4: 20 AM EAR PULL MACHINE OPERATOR documented as of this encounter Plan of Treatment Upcoming Encounters Date Type Department Care Team (Latest Contact Info) Description 10/29/2024 11:00 AM CDT Virtual Visit [facility] [address] [place] [address] [phone] 11/23/2024 1:30 PM CDT Office Visit [facility] Mental Health & Addiction [place] [phone] [address] [place] [phone] Melanie Boykin MD [address] [place] [address] 483164 Gloria Elizalde MD [address] [place] [address] [phone] 12/03/2024 3:00 PM CDT Office Visit [facility]iatry [facility] [address] [phone] Jesse Arvizu MD [address] [place] [address] 12/15/2024 11:40 AM CDT Ancillary Procedure [facility] Imaging Center CT Clinic [address] 1st [place] [phone] Yudy Pompa MD [address] [place] [address] 559805 12/22/2024 11:40 AM CDT Oncology Visit [facility] [address] [place] [address] [phone] Yudy Pompa MD [address] [place] [address] 82084 02/22/2025 12:30 PM CDT Office Visit [facility] Plastic and Reconstructive Surgery Clinic [address] [phone] Kenya Jennings MD [address] [place] [address] 78769 03/12/2025 1:00 PM EAR PULL MACHINE OPERATOR Office Visit [facility] Internal Medicine [address] [phone] Mamadou Bowie MD [address] [place] [address]24 03/23/2025 8:00 AM EAR PULL MACHINE OPERATOR Hospital Encounter [facility] PeriOp Services [address] [facility] [place] [phone] Kenya Jennings MD [address] [place] [address] 03/23/2025 8:00 AM EAR PULL MACHINE OPERATOR - 03/23/2025 12:05 PM EAR PULL MACHINE OPERATOR Surgery [facility] Per[facility]Op Services [address] [place] [phone] Kenya Jennings MD [address] [place] [address] 746885 MASTECTOMY, BILATERAL, SIMPLE, NO nipple grafts. OnQ 03/30/2025 10:00 AM EAR PULL MACHINE OPERATOR Office [facility] Pl[facility] and Re[facility]ive Surgery Clinic [address] [phone] Lynn Parks APRN [address] 432525 04/16/2025 1:00 PM EAR PULL MACHINE OPERATOR Office Visit [facility] Internal Medicine [address] [phone] Mamadou Bowie MD [address] [place] [address] 74[address] 05/03/2025 4:00 PM EAR PULL MACHINE OPERATOR Office Visit [facility] Plastic and Reconstructive Surgery Clinic [address] [phone] Kenya Jennings MD [address] [place] [address] [phone] 08/17/2025 12:15 PM CDT Office Visit [facility] Dermatology Clinic [address]rd [place] [phone] Herber Lopez MD [address] [place] [address] 397305 Scheduled Procedures Name Priority Associated Diagnoses Date/Ti me MASTECTOMY, BILATERAL, FOR GENDER AFFIRMATION Gender dysphoria in adult 03/23/2025 8:00 AM EAR PULL MACHINE OPERATOR documented as of this encounter Goals [...] documented as of this encounter Care Teams Public Affairs Specialist Relationship Specialty Start Date End Date Mamadou Bowie MD [address] [place] [address] 085175 PCP - General 03/18/23 Cindy Ru[place] [place] [address] Resident Internal Medicine 12/07/14 Trevor Espino MD [address] [place] [address] 096755 Urology 05/16/16 Jaci Whitlock APRN LICENSED PRACTICAL VOCATIONAL NURSE [address] [place] [address] [phone] Nurse Practitioner - Women's Health 12/14/16 Doris Ricci MD [facility] [address] [place] [address] Physician Internal Medicine 07/11/20 Yudy Pompa MD [address] [place] [address] 323005 Assigned Cancer Care Provider 08/21/20 Mary Carmen Rodriguez MD [address] [place] [address] 98 [place], [place] 165515 Dermatology 11/09/20 Herber Lopez MD [address] [place] [address] 700435 Dermapathology 11/09/20 Gloria Elizalde MD [address] [place] [address] 256075 Resident 12/24/22 Mamadou Bowie MD [address] [place] [address] 454195 Assigned PCP 03/23/23 Makenzie Romano MD [address] [place] [address] 848744 chief power dispatcher & Neurology - Child & Adolescent Psychiatry 11/08/23 Shani Stephenson MD [address] [place] [address] Resident Psychiatry 11/08/23 Ita Newton Specialty Marine Insulator 06/04/24 Kenya Jennings MD [address] [place] [address] 432655 Plastic Surgery 06/04/24 Herber Lopez MD [address] [place] [address] 728855 Assigned Dermatology Provider 07/26/24 Сергей Dumont [facility] Raise Driller 08/13/24 Kenya Jennings MD [address] [place] [address] 036195 Assigned Surgical Provider 08/26/24 Jesse Arvizu MD 5775 [place] [address] Assigned Behavioral Health Provider 08/26/24 09/24/24 documented as of this encounter
--- OUTSIDE RECORDS SUMMARY | 2024-10-28 19:14 | XMS_ITS | Encounter Summary ---
Author Organization [facility] Address [address] [place] [address] 08323 Care Team Providers Care Panelboard Tank Pumper Name Role Phone Cindy Ruiz Unavailable [phone] Trevor Espino MD Unavailable +[phone] eMlanie Boykin MD Unavailable +[phone] Jaci Whitlock APRN HOUSEKEEPER Unavailable + Doris Ricci MD Unavailable Yudy Pompa MD Unavailable +[phone] Mary Carmen Rodriguez MD Unavailable + Herber Lopez MD Unavailable +[phone] Gloria Elizalde MD Unavailable [phone] Mamadou Bowie MD Primary Care Provider +[phone] Mamadou Bowie MD Unavailable Herber Lopez MD Unavailable +[phone] Makenzie Romano MD Unavailable +[phone] Shani Stephenson MD Unavailable +[phone] Yomi Campos PhD Unavailable +[phone] Ita Newton Unavailable Unavailable Kenya Jennigns MD Unavailable Herber Lopez MD Unavailable +[phone] Сергей Dumont [facility] Unavailable Unavailable Kenya Jennings MD Unavailable [phone] Jesse Arvizu MD Unavailable Luis Dudley MD Unavailable +[phone] Carmen Cole PA-C Unavailable +[phone] Racheal Ng MD Unavailable +[phone] Encounter Details Date Type Department Care Team (Late st Contact Info) Description 09/13/2023 [facility] [address] [place] [address] [facility] Social History Tobacco Use Types Packs/Day Years Used Date Smoking Tobacco: Never Smokeless Tobacco: Never Alcohol Use Standard Drinks/Week Comments Yes 0 (1 standard drink = 0.6 oz pur e alcohol) 1 drink every couple of weeks PHQ-2 Answer Date Recorded PHQ-2 Score 2 08/20/2023 Adolescent Education Answer Date Record ed Getting [...] building, in an overnight penitentiary, or couch-surfing.) Yes 03/18/2023 Are you worried [...] PM CDT Legal Sex Female 3:58 AM FREIGHT ELEVATOR ERECTOR Gender Identity other 11/14/2020 10:33 PM CDT Sexual Orientation Lesbian 06/22/2019 4: 20 AM FREIGHT ELEVATOR ERECTOR documented as of this encounter Plan of Treatment Upcoming Encounters Date Type Department Care Team (Latest Contact Info) Description 10/29/2024 11:00 AM CDT Virtual Visit [facility] [address] [place] [address] [phone] 11/23/2024 1:30 PM CDT Office Visit [facility] [address] [phone] Melanie Boykin MD [address] [place] [address] [phone] Gloria Elizalde MD [address] [place], [place] 503995 12/03/2024 3:00 PM CDT [facility] [address] [place] [address] [place] [phone] Jesse Arvizu MD [address] [place] [address] 469076 12/15/2024 11:40 AM CDT Ancillary Procedure [facility] [address] [phone] Yudy Pompa MD [address] [place] [address] 30[address] 12/22/2024 11:40 AM CDT Oncology Visit [facility] [address] [place] [address] [phone] Yudy Pompa MD [address] [place] [address] 9[address] 02/22/2025 12:30 PM CDT Office Visit [facility] [address] [phone] Kenya Jennings MD [address] [place] [address] 03/12/2025 1:00 PM FREIGHT ELEVATOR ERECTOR [facility] Internal Medicine [address] [phone] Mamadou Bowie MD [address] [place] [address] 9[address] 03/23/2025 8:00 AM FREIGHT ELEVATOR ERECTOR Hospital Encounter [facility] [address] [place] [address] [facility] [place] [phone] Kenya Jennings MD [address] [place] [address] 116[address] 03/23/2025 8:00 AM FREIGHT ELEVATOR ERECTOR - 03/23/2025 12:05 PM FREIGHT ELEVATOR ERECTOR Surgery [facility] [address] [place] [address] [place] [phone] Kenya Jennings MD [address] [place] [address] MASTECTOMY, BILATERAL, SIMPLE, NO nipple grafts. OnQ 03/30/2025 10:00 AM FREIGHT ELEVATOR ERECTOR Office Visit [facility] [address] [phone] Lynn Parks APRN [address] [address] 04/16/2025 1:00 PM FREIGHT ELEVATOR ERECTOR Office Visit [facility] Medicine [address] [phone] Mamadou Bowie MD [address] [place] [address] 352525 05/03/2025 4:00 PM FREIGHT ELEVATOR ERECTOR Office Visit [facility] [address] [phone] Kenya Jennings MD [address] [place] [address] 195 [place] [address] 08/17/2025 12:15 PM CDT Office Visit [facility] [address] [phone] Herber Lopez MD [address] [place] [address] 98 [place], [place] 113245 Scheduled Procedures Name Priority Associated Diagnoses Date/Ti me MASTECTOMY, BILATERAL, FOR GENDER AFFIRMATION Gender dysphoria in adult 03/23/2025 8:00 AM FREIGHT ELEVATOR ERECTOR documented as of this encounter Visit Diagnoses Not on filedocumented in this encounter Additional Health Concerns Assessment Noted Time PHQ-9 Depression Total Score: 8 08/20/19 24 9:50 AM CDT documented as of this encounter Care Teams Panelboard Tank Pumper Relationship Specialty Start Date End Date Mamadou Bowie MD [address] [place] [address] [phone] PCP - General 03/18/23 Cindy Ruiz [address] [address] Resident Internal Medicine 12/07/14 Trevor Espino MD 9[address] [place], [place] [phone] Urology 05/16/16 Melanie Boykin MD [address] [place] [address] [phone] patient companion 12/10/16 11/07/23 Jaci Whitlock APRN CNP 420 [facility] 395 [place], [place] 583645 Nurse Practitioner - Women's Health 12/14/16 Doris Ricci MD [facility] & [address] [address] Physician Internal Medicine 07/11/20 Yudy Pompa MD 909 [place], [place] [phone] Assigned Cancer Care Provider 08/21/20 Mary Carmen Rodriguez MD 420 [facility] 98 [place], [place] 773935 Dermatology 11/09/20 Herber Lopez MD 420 [facility] 98 [place], [place] 391245 Dermapathology 11/09/20 Gloria Elizalde MD 420 [place] [address] Resident 12/24/22 Mamadou Bowie MD [address] [place] [address]706 Assigned PCP 03/23/23 Herber Lopez MD [address] [place] [address]25 Assigned Surgical Provider 05/18/23 07/25/24 Makenzie Romano MD [address] [place] [address] 28[address] patient companion & Neurology - Child & Adolescent Psychiatry 11/08/23 Shani Stephenson MD [address] [place] [address] [phone] Resident Psychiatry 11/08/23 Yomi Campos, PhD [address] [place] [address] Assigned Behavioral Health Provider 01/27/24 08/25/24 Ita Newton Specialty Die Cutting Machine Operator 06/04/24 Kenya Jennings MD [address] [place] [address] 48[address] Plastic Surgery 06/04/24 Herber Lopez MD [address] [place] [address] 43822 Assigned Dermatology Provider 07/26/24 Сергей Dumont [facility] Living Nurse 08/13/24 Kenya Jennings MD [address] [facility] 195 [place], [place] 040485 Assigned Surgical Provider 08/26/24 Jesse Arvizu MD 5775 [place], [place] 021016 Assigned Behavioral Health Provider 08/26/24 09/24/24 Luis Dudley MD [facility] [place] [place] 701454 Assigned Behavioral Health Provider 09/25/24 10/25/24 Carmen Cole PA-C 6363 [facility] 103 [place], [place] 542475 Assigned Sleep Provider 09/25/24 Racheal Ng MD 2450 [facility] S [address] [place] [address] Assigned Behavioral Health Provider 10/26/24 documented as of this encounter
--- OUTSIDE RECORDS SUMMARY | 2024-10-28 19:14 | XMS_ITS | Encounter Summary ---
Author Organization [place] Address [address] [place] [address] Care Team Providers Care Senior Chemical Engineer Name Role Phone RichielelaCindy Unavailable [phone] Kaitlin Branch MD Unavailable +[phone] Trevor Espino MD Unavailable [phone] Melanie Boykin MD Unavailable [phone] Jaci Whitlock SHREDDING SPECIALIST THREAD CUTTER TENDER Unavailable + Yudy [place] MD Primary Care Provider [phone] Yudy [place] MD Unavailable +[phone] Jaci Whitolck SHREDDING SPECIALIST THREAD CUTTER TENDER Unavailable + Juan M Smith MD, Madhuri Unavailable +[phone] Doris Ricci MD Unavailable +[phone] Yudy [place] MD Unavailable +[phone] Antonette Castro PA-C Unavailable +[phone] Yudy Pompa MD Unavailable +[phone] Jessi Mcfadden MD Unavailable + [phone] Mary Carmen Rodriguez MD Unavailable + Herber Lopez MD Unavailable +[phone] Yomi Izquierdo DPM Unavailable +[phone] Torey Luna MD Primary Care Provider +[phone] Antonette Castro PA-C Unavailable +[phone] Torey Luna MD Unavailable +[phone] Herber Lopez MD Unavailable +[phone] Maurilio Carlson MD Unavailable Herber Lopez MD Unavailable +[phone] Gloria Elizalde MD Unavailable [phone] Olena Smith [facility] Unavailable Unavailable Maurilio Carlson MD Unavailable Mamadou Bowie MD Primary Care Provider + [phone] AzebMamadou menchaca MD Unavailable Herber Lopez MD Unavailable +[phone] Makenzie Romano MD Unavailable +[phone] Shani Stephenson MD Unavailable +[phone] Yomi Campos PhD Unavailable +[phone] Ita Newton Unavailable Unavailable Kenya Jennings MD Unavailable + [phone] Herber Lopez MD Unavailable +[phone] Сергей Dumont [facility] Unavailable Unavailable Kenya Jennings MD Unavailable + [phone] Jesse Arvizu MD Unavailable Luis Dudley MD Unavailable [phone] Carmen Cole-C Unavailable +[phone] Racheal Ng MD Unavailable + [phone] Encounter Details Date Type Department Care Team (Late st Contact Info) Description 10/09/2019 [facility] 9 [place] [address] [facility] Social History Tobacco Use Types Packs/Day Years Used Date Smoking Tobacco: Never Smokeless Tobacco: Never Alcohol Use Standard Drinks/Week Comments No 0 (1 standard drink = 0.6 oz pur e alcohol) PHQ-2 Answer Date Recorded PHQ-2 Score 1 06/22/2019 Comments No Sex and Gender Information Value Date Recorded Sex Assigned at Female 11/14/2020 10:33 PM CDT Legal Sex Female 3:58 AM DOUBLE BASS PLAYER Gender Identity other 11/14/2020 10:33 PM CDT Sexual Orientation Lesbian 06/22/2019 4: 20 AM DOUBLE BASS PLAYER documented as of this encounter Plan of Treatment Upcoming Encounters Date Type Department Care Team (Latest Contact Info) Description 10/29/2024 11:00 AM CDT Virtual Visit [facility] [address] [place] [phone] 11/23/2024 1:30 PM CDT Office Visit [facility] Mental Health & Addiction [place] [phone] [address] [place] [phone] Melanie Boykin MD [address] [place] [address] 345[address] Gloria Elizalde MD [address] [place] [address] 238145 12/03/2024 3:00 PM CDT Office Visit [facility] Psychiat[facility] [address] [place] [phone] Jesse Arvizu MD [address] [place] [address] 25[address] 12/15/2024 11:40 AM CDT Ancillary Procedure [facility] Imaging [facility] Clinic [address] [phone] Yudy Pompa MD [address] [place] [address] 623[address] 12/22/2024 11:40 AM CDT Oncology Visit [facility] [address] [place] [address] [phone] Yudy Pompa MD [address] [place] [address] 01924 02/22/2025 12:30 PM CDT Office Visit [facility] [address] [phone] Kenya Jennings MD [address] [place] [address] 44[address] 03/12/2025 1:00 PM DOUBLE BASS PLAYER Office Visit [facility] Internal Medicine [address] [phone] Mamadou Bowie MD [address] [place] [address] 239585 03/23/2025 8:00 AM DOUBLE BASS PLAYER Hospital Encounter [facility] [address] [place] [address] [phone] Kenya Jennings MD [address] [place] [address] 8[address]86 03/23/2025 8:00 AM DOUBLE BASS PLAYER - 03/23/2025 12:05 PM DOUBLE BASS PLAYER Surgery [facility] [address] [place] [address] [phone] Kenya Jennings MD [address] [place] [address] 334865 MASTECTOMY, BILATERAL, SIMPLE, NO nipple grafts. OnQ 03/30/2025 10:00 AM DOUBLE BASS PLAYER Office Visit [facility] [address] [phone] KaseyLynn APRN THREAD CUTTER TENDER [address] [place] [address] 24[address] 04/16/2025 1:00 PM DOUBLE BASS PLAYER Office Visit [facility] Internal Medicine [address] [place] [phone] Mamadou Bowie MD [address] [place] [address] 8[address] 05/03/2025 4:00 PM DOUBLE BASS PLAYER Office Visit [facility] [address] [place] [phone] Kenya Jennings MD [address] [place] [address] 195 [place], [place] 147215 08/17/2025 12:15 PM CDT Office Visit [facility] Dermatology Clinic [address] [place] [phone] Herber Lopez MD [address] [place] [address] 98 [place], [place] 149385 Scheduled Procedures Name Priority Associated Diagnoses Date/Ti me MASTECTOMY, BILATERAL, FOR GENDER AFFIRMATION Gender dysphoria in adult 03/23/2025 8:00 AM DOUBLE BASS PLAYER documented as of this encounter Visit Diagnoses Not on filedocumented in this encounter Additional Health Concerns Assessment Noted Time PHQ-9 Depression Total Score: 3 06/22/19 20 1:01 PM DOUBLE BASS PLAYER documented as of this encounter Care Teams Senior Chemical Engineer Relationship Specialty Start Date End Date Yudy [place] MD [address] [place] [address] 395 [place], [place] 566155 PCP - General Internal Medicine 10/17/18 04/18/21 Torey Luna MD [address] [place] [address] 318245 PCP - General Internal Medicine 04/19/21 03/17/23 Mamadou Bowie MD [address] [place] [address] 63304 PCP - General 03/18/23 Cindy Ruiz [place] [address] Resident Internal Medicine 12/07/14 Kaitlin Branch MD [address] [place] [address]287 b2b outside sales representative 01/02/16 10/17/20 Trevor Espino MD [address] [place] [address] 32531 Urology 05/16/16 Melanie Boykin MD [address] [place] [address] 018514 b2b outside sales representative 12/10/16 11/07/23 Jaci Whitlock APRN THREAD CUTTER TENDER [address] [place] [address] 921955 Nurse Practitioner - Women's Health 12/14/16 Yudy Mathews MD [facility] [place], [place] 110347 Assigned PCP 09/24/19 07/24/20 Jaci Whitlock APRN THREAD CUTTER TENDER [address] [place] [address] 260365 Assigned OBGYN Provider 02/26/20 Shanelle Mcgowan MD [address] [place] [address] 94494 Assigned Surgical Provider 02/26/20 07/29/21 Doris Ricci MD [address] [address] Physician Internal Medicine 07/11/20 [place] [address] Assigned PCP 07/25/20 04/22/21 Antonette Castro PA-C [address] [place] [address] 18322 Assigned Heart and Vascular Provider 07/20/20 04/08/21 Yudy Pompa MD [address] [place] [address] 880405 Assigned Cancer Care Provider 08/21/20 Jessi Mcfadden MD [address] [place] [address] F282/2A [place], [place] 535284 Resident Psychiatry 11/08/20 12/23/22 Mary Carmen Rodriguez MD [address] [place] [address] 669845 Dermatology 11/09/20 Herber Lopez MD [address] [place] [address]271 Dermapathology 11/09/20 Yomi Izquierdo DPM [address] [facility] [address] [place] [address] Assigned Musculoskeletal Provider 12/04/20 06/08/22 Antonette Castro PA-C [address] [place] [address] 79566 Assigned Gastroenterology Provider 04/09/21 07/08/21 Torey Luna MD [address] [place] [address] 6[address]24 Assigned PCP 04/23/21 03/22/23 Herber Lopez MD [address] [place] [address] 53702 Assigned Surgical Provider 07/30/21 11/17/21 Maurilio Carlson MD [address] [place] [address] 38681 Assigned Surgical Provider 11/18/21 11/23/22 Herber Lopez MD [address] [place] [address] 52507 Assigned Surgical Provider 11/24/22 12/21/22 Gloria Elizalde MD [address] [place] [address] 88324 Resident 12/24/22 Olena Smith LSW Specialty Customer Service Engineer Brim And Crown Presser - Clinical 12/25/22 01/03/23 [place] [address] [place] [address] Assigned Surgical Provider 12/22/22 05/17/23 Mamadou Bowie MD 909 [place] [address] Assigned PCP 03/23/23 Herber Lopez MD 420 [facility] 98 [place], [place] 826045 Assigned Surgical Provider 05/18/23 07/25/24 Makenzie Romano MD [address] 356684 b2b outside sales representative & Neurology - Child & Adolescent Psychiatry 11/08/23 Shani Stephenson MD 420 [place] [address] Resident Psychiatry 11/08/23 Yomi Campos, PhD [address] [place], [place] 0462956 [place], [place] 774374 Assigned Behavioral Health Provider 01/27/24 08/25/24 Ita Newton Specialty Customer Service Engineer 06/04/24 Kenya Jennings MD 420 [facility] 195 [place], [place] 500685 Plastic Surgery 06/04/24 Herber Lopez MD 420 [facility] 98 [place], [place] 167355 Assigned Dermatology Provider 07/26/24 Сергей Dumont [facility] Brim And Crown Presser 08/13/24 Kenya Jennings MD [address] [place] [facility] 195 [place], [place] 413425 Assigned Surgical Provider 08/26/24 Jesse Arvizu MD 5775 [place], [place] 892296 Assigned Behavioral Health Provider 08/26/24 09/24/24 Luis Dudley MD 240 [place], [place] 331324 Assigned Behavioral Health Provider 09/25/24 10/25/24 Carmen Cole PA-C 6363 [facility] 103 [place], [place] 024815 Assigned Sleep Provider 09/25/24 Racheal Ng MD 2450 [facility] F282 [place] [address] Assigned Behavioral Health Provider 10/26/24 documented as of this encounter
--- OUTSIDE RECORDS SUMMARY | 2024-10-28 19:14 | XMS_ITS | Encounter Summary ---
Author Organization [facility] Address [address] [place] [address] Care Team Providers Care Manager Trading Name Role Phone Cindy Ruiz Unavailable [phone] Trevor Espino MD Unavailable +[phone] Melanie Boykin MD Unavailable +[phone] Jaci Whitlock APRN MARINE FARMER Unavailable + Doris Ricci MD Unavailable +[phone] Yudy Pompa MD Unavailable +[phone] Mary Carmen Rodriguez MD Unavailable + Herber Lopez MD Unavailable +[phone] Gloria Elizalde MD Unavailable +[phone] Mamadou Bowie MD Primary Care Provider +[phone] Mamadou Bowie MD Unavailable Herber Lopez MD Unavailable +[phone] Makenzie Romano MD Unavailable +[phone] Shani Stephenson MD Unavailable +[phone] Yomi Campos PhD Unavailable +[phone] Ita Newton Unavailable Unavailable Kenya Jennings MD Unavailable +[phone] Herber Lopez MD Unavailable +[phone] Сергей Dumont [facility] Unavailable Unavailable Kenya Jennings MD Unavailable +[phone] Jesse Arvizu MD Unavailable Luis Dudley MD Unavailable +[phone] Carmen Cole PA-C Unavailable +[phone] Racheal Ng MD Unavailable +[phone] Encounter Details Date Type Department Care Team (Late st Contact Info) Description 06/25/2023 [facility] [address] [place] [address] [facility] Social History Tobacco Use Types Packs/Day Years Used Date Smoking Tobacco: Never Smokeless Tobacco: Never Alcohol Use Standard Drinks/Week Comments Yes 0 (1 standard drink = 0.6 oz pur e alcohol) 1 drink every couple of weeks PHQ-2 Answer Date Recorded PHQ-2 Score 2 06/27/2023 Adolescent Education Answer Date Record ed Getting [...] in an overnight detention, or couch-surfing.) Yes 03/18/2023 Are you worried [...] PM CDT Legal Sex Female 3:58 AM REGISTERED CLINICAL DIETITIAN Gender Identity other 11/14/2020 10:33 PM CDT Sexual Orientation Lesbian 06/22/2019 4: 20 AM REGISTERED CLINICAL DIETITIAN documented as of this encounter Plan of Treatment Upcoming Encounters Date Type Department Care Team (Latest Contact Info) Description 10/29/2024 11:00 AM CDT Virtual Visit [facility] [address] [place] [address] [phone] 11/23/2024 1:30 PM CDT Office Visit [facility] Mental Health & Addiction [address] [phone] Melanie Boykin MD [address] [place] [address] [phone] Gloria Elizalde MD [address] [place], [place] 526005 12/03/2024 3:00 PM CDT [facility] [address] [place] [address] [place] [phone] Jesse Arvizu MD [address] [place] [address] [phone] 12/15/2024 11:40 AM CDT Ancillary Procedure [facility] Imaging Center [address] [phone] Yudy Pompa MD [address] [place] [address] 13370 12/22/2024 11:40 AM CDT Oncology Visit [facility] [address] [place] [address] [phone] Yudy Pompa MD [address] [place] [address] 34139 02/22/2025 12:30 PM CDT Office Visit [facility] Plastic and Reconstructive Surgery Clinic [address] [phone] Kenya Jennings MD [address] [place] [address] 227[address] 03/12/2025 1:00 PM REGISTERED CLINICAL DIETITIAN Office Visit [facility] Clinic Internal Medicine [address] [phone] Mamadou Bowie MD [address] [place] [address] 6[address] 03/23/2025 8:00 AM REGISTERED CLINICAL DIETITIAN Hospital Encounter [facility] PeriOp Services [address] [place] [address] [facility] [place] [phone] Kenya Jennings MD [address] [place] [address] 52932 03/23/2025 8:00 AM REGISTERED CLINICAL DIETITIAN - 03/23/2025 12:05 PM REGISTERED CLINICAL DIETITIAN Surgery [facility] [address] [place] [address] [place] [phone] Kenya Jennings MD [address] [place] [address] 32320 MASTECTOMY, BILATERAL, SIMPLE, NO nipple grafts. OnQ 03/30/2025 10:00 AM REGISTERED CLINICAL DIETITIAN Office Visit [facility] [address] [phone] Lynn Parks APRN [address] [address] 04/16/2025 1:00 PM REGISTERED CLINICAL DIETITIAN Office Visit [facility] Internal Medicine [address] [phone] Mamadou Bowie MD [address] [place] [address] 183275 05/03/2025 4:00 PM REGISTERED CLINICAL DIETITIAN Office Visit [facility] [address] [phone] Kenya Jennings MD [address] [place] [address] 195 [place] [address] 08/17/2025 12:15 PM CDT Office Visit [facility] Dermatology Clinic [address] [phone] Herber Lopez MD [address] [place] [address] 98 [place], [place] 399295 Scheduled Procedures Name Priority Associated Diagnoses Date/Ti me MASTECTOMY, BILATERAL, FOR GENDER AFFIRMATION Gender dysphoria in adult 03/23/2025 8:00 AM REGISTERED CLINICAL DIETITIAN documented as of this encounter Visit Diagnoses Not on filedocumented in this encounter Additional Health Concerns Assessment Noted Time PHQ-9 Depression Total Score: 6 04/21/20 6:42 PM REGISTERED CLINICAL DIETITIAN documented as of this encounter Care Teams Manager Trading Relationship Specialty Start Date End Date Mamadou Bowie MD [address] [place] [address] [phone] PCP - General 03/18/23 [address] Ru[address] [place] [address] Resident Internal Medicine 12/07/14 Trevor Espino MD [address] [place], [place] 768115 Urology 05/16/16 Melanie Boykin MD [address] [place] [address] 806704 enterprise application architect 12/10/16 11/07/23 Jaci Whitlock APRN CNP 420 [facility] 395 [place], [place] 928225 Nurse Practitioner - Women's Health 12/14/16 Doris Ricci MD [facility] & [address] [address] Physician Internal Medicine 07/11/20 Yudy Pompa MD [address] [place], [place] 390105 Assigned Cancer Care Provider 08/21/20 Mary Carmen Rodriguez MD 420 [facility] 98 [place], [place] 672295 Dermatology 11/09/20 Herber Lopez MD 420 [facility] 98 [place] [address] Dermapathology 11/09/20 Gloria Elizalde MD [address] [place] [address] Resident 12/24/22 Mamadou Bowie MD [address] [place] [address] 0[address] Assigned PCP 03/23/23 Herber Lopez MD [address] [place] [address] 12965 Assigned Surgical Provider 05/18/23 07/25/24 Makenzie Romano MD [address] [place] [address] [phone] enterprise application architect & Neurology - Child & Adolescent Psychiatry 11/08/23 Shani Stephenson MD [address] [place] [address] 670925 Resident Psychiatry 11/08/23 Yomi Campos, PhD [address] [place] [address] 37790 Assigned Behavioral Health Provider 01/27/24 08/25/24 Ita Newton Specialty Fire Department Marine Engineer 06/04/24 Kenya Jennings MD [address] [place] [address] 44481 Plastic Surgery 06/04/24 Herber Lopez MD [address] [place] [address] 30730 Assigned Dermatology Provider 07/26/24 Сергей Dumont, [facility] Model Technician 08/13/24 Kenya Jennings MD 420 [facility] 195 [place], [place] 904075 Assigned Surgical Provider 08/26/24 Jesse Arvizu MD [address] [place], [place] 883086 Assigned Behavioral Health Provider 08/26/24 09/24/24 Luis Dudley MD [address] [place], [place] 135024 Assigned Behavioral Health Provider 09/25/24 10/25/24 Carmen Cole PA-C 6[address] [facility] [address] [place], [place] 045225 Assigned Sleep Provider 09/25/24 Racheal Ng MD 2450 [facility] [place] [address] Assigned Behavioral Health Provider 10/26/24 documented as of this encounter
--- OUTSIDE RECORDS SUMMARY | 2024-10-28 19:14 | XMS_ITS | Encounter Summary ---
Author Organization [facility] Address [address] [place] [address] 6[address]31 Care Team Providers Care Admission Discharge Rn Name Role Phone RichielelaCindy Unavailable [phone] Kaitlin Branch MD Unavailable [phone] Trevor Espino MD Unavailable [phone] Melanie Boykin MD Unavailable [phone] Jaci Whitlock DATA OPERATIONS DIRECTOR SUPERIOR COURT CLERK Unavailable + Yudy Mathews MD Primary Care Provider [phone] Yudy Mahtews MD Unavailable +[phone] Jaci Whitlock DATA OPERATIONS DIRECTOR SUPERIOR COURT CLERK Unavailable + Juan M Smith MD, Madhuri Unavailable +[phone] Doris Ricci MD Unavailable +[phone] Yudy Mathews MD Unavailable +[phone] Antonette Castro PA-C Unavailable +[phone] Yudy Pompa MD Unavailable +[phone] Jessi Mcfadden MD Unavailable + [phone] Mary Carmen Rodriguez MD Unavailable + Herber Lopez MD Unavailable +[phone] Yomi Izquierdo DPM Unavailable +[phone] Torey Luna MD Primary Care Provider + [phone] Antonette Castro PA-C Unavailable +[phone] Torey Luna MD Unavailable +[phone] Herber Lopez MD Unavailable +[phone] Maurilio Carlson MD Unavailable Herber Lopez MD Unavailable +[phone] Gloria Elizalde MD Unavailable +[phone] Olena Smith [facility] Unavailable Unavailable Maurilio Carlson MD Unavailable Mamadou Bowie MD Primary Care Provider +[phone] AzebMamadou menchaca MD Unavailable Herber Lopez MD Unavailable +[phone] Makenzie Romano MD Unavailable +[phone] Shani Stephenson MD Unavailable +[phone] Yomi Campos PhD Unavailable +[phone] Ita Newton Unavailable Unavailable Kenya Jennings MD Unavailable + [phone] Herber Lopez MD Unavailable +[phone] Сергей Dumont [facility] Unavailable Unavailable Kenya Jennings MD Unavailable + [phone] Jesse Arvizu MD Unavailable Luis Dudley MD Unavailable +[phone] Carmen Cole PA-C Unavailable +[phone] Racheal Ng MD Unavailable [phone] Encounter Details Date Type Department Care Team (Late st Contact Info) Description 09/03/2019 [facility] Cancer [address] [phone] Shanelle Mcgowan MD [address] [place] [address] Social History Tobacco Use Types Packs/Day Years Used Date Smoking Tobacco: Never Smokeless Tobacco: Never Alcohol Use Standard Drinks/Week Comments No 0 (1 standard drink = 0.6 oz pur e alcohol) PHQ-2 Answer Date Recorded PHQ-2 Score 1 06/22/2019 Comments No Sex and Gender Information Value Date Recorded Sex Assigned at Female 11/14/2020 10:33 PM CDT Legal Sex Female 3:58 AM BUTCHER HELPER Gender Identity other 11/14/2020 10:33 PM CDT Sexual Orientation Lesbian 06/22/2019 4: 20 AM BUTCHER HELPER documented as of this encounter Plan of Treatment Upcoming Encounters Date Type Department Care Team (Latest Contact Info) Description 10/29/2024 11:00 AM CDT Virtual Visit [facility] [address] [place] [phone] 11/23/2024 1:30 PM CDT Office Visit [facility] Mental Health & Addiction [address] [phone] Melanie Boykin MD [address] [place] [address] [phone] Gloria Elizalde MD [address] [place] [address] 374755 12/03/2024 3:00 PM CDT Office Visit [facility] [address] [place] [phone] Jesse Arvizu MD [address] [place] [address] 480306 12/15/2024 11:40 AM CDT Ancillary Procedure [facility] Imaging Center [address] [place] [phone] Yudy Pompa MD [address] [place] [address] 887655 12/22/2024 11:40 AM CDT Oncology Visit [facility] Cancer Clinic [address] [place] [address] [phone] Yudy Pompa MD [address] [place] [address] 02/22/2025 12:30 PM CDT Office Visit [facility] Plastic and Reconstructive Surgery Clinic [address] [phone] Kenya Jennings MD [address] [place] [address] 245115 03/12/2025 1:00 PM BUTCHER HELPER Office Visit [facility] Internal Medicine [address] [phone] Mamadou Bowie MD [address] [place] [address] 15553 03/23/2025 8:00 AM BUTCHER HELPER Hospital Encounter [facility] Per[facility]Op [facility] [address] [place] [address] [phone] Kenya Jennings MD [address] [place] [address] 841865 03/23/2025 8:00 AM BUTCHER HELPER - 03/23/2025 12:05 PM BUTCHER HELPER Surgery [facility] [address] [place] [address] [phone] Kenya Jennings MD [address] [place] [address] 31535 MASTECTOMY, BILATERAL, SIMPLE, NO nipple grafts. OnQ 03/30/2025 10:00 AM BUTCHER HELPER Office Visit [facility] Plastic and Reconstructive Surgery Clinic [address] [place] [phone] Lynn Parks APRN [address] 959235 04/16/2025 1:00 PM BUTCHER HELPER Office Visit [facility] Internal Medicine [address] [place] [phone] Mamadou Bowie MD [address] [place] [address] 86284 05/03/2025 4:00 PM BUTCHER HELPER Office Visit [facility] Plastic and Reconstructive Surgery Clinic [address] [phone] Kenya Jennings MD [address] [place] [address] 195 [place], [place] 186425 08/17/2025 12:15 PM CDT Office Visit [facility] Dermatology Clinic [address] [place] [phone] Herber Lopez MD [address] [place] [address] 98 [place], [place] 647515 Scheduled Procedures Name Priority Associated Diagnoses Date/Ti me MASTECTOMY, BILATERAL, FOR GENDER AFFIRMATION Gender dysphoria in adult 03/23/2025 8:00 AM BUTCHER HELPER documented as of this encounter Visit Diagnoses Not on filedocumented in this encounter Additional Health Concerns Assessment Noted Time PHQ-9 Depression Total Score: 3 06/22/19 20 1:01 PM BUTCHER HELPER documented as of this encounter Care Teams Admission Discharge Rn Relationship Specialty Start Date End Date Yudy Mathews MD [address] [place] [address] 395 [place] [address] PCP - General Internal Medicine 10/17/18 04/18/21 Torey Luna MD [address] [address] PCP - General Internal Medicine 04/19/21 03/17/23 Mamadou Bowie MD [address] [place] [address] [phone] PCP - General 03/18/23 Cindy Ruiz [facility] [address] [place], [place] 436770 Resident Internal Medicine 12/07/14 Kaitlin Branch MD [address] [place], [place] 7103282 [place], [place] 893494 site technician 01/02/16 10/17/20 Trevor Espino MD [address] [place] [address] 846355 Urology 05/16/16 Melanie Boykin MD [address] [place] [address] [phone] site technician 12/10/16 11/07/23 Jaci Whitlock, DATA OPERATIONS DIRECTOR SUPERIOR COURT CLERK [address] [place] [address] 395 [place], [place] 501235 Nurse Practitioner - Women's Health 12/14/16 Yudy Mathews MD [facility] [place] [address] Assigned PCP 09/24/19 07/24/[address] Whit[address]N SUPERIOR COURT CLERK 420 [facility] 395 [place] [address] Assigned OBGYN Provider 02/26/20 Shanelle Mcgowan MD 909 [place] [address] Assigned Surgical Provider 02/26/20 07/29/21 Doris Ricci MD [address] [address] Physician Internal Medicine 07/11/20 Yudy Mathews MD [facility] [address] [place] [address] Assigned PCP 07/25/20 04/22/21 Antonette Castro PA-C [address] [place] [address] 111975 Assigned Heart and Vascular Provider 07/20/20 04/08/21 Yudy Pompa MD 9 [place], [place] 887355 Assigned Cancer Care Provider 08/21/20 Jessi Mcfadden MD [facility] F282/2A [place], [place] 049604 Resident Psychiatry 11/08/20 12/23/22 Mary Carmen Rodriguez MD 420 [facility] 98 [place], [place] 588065 Dermatology 11/09/20 Herber Lopez MD [address] [place] [address] 8[address] Dermapathology 11/09/20 Yomi Izquierdo DPM [address] [facility] [address] [place] [address] Assigned Musculoskeletal Provider 12/04/20 06/08/22 Antonette Castro PA-C [address] [place] [address] 684015 Assigned Gastroenterology Provider 04/09/21 07/08/21 Torey Luna MD [address] [place] [address] 807865 Assigned PCP 04/23/21 03/22/23 Herber Lopez MD [address] [place] [address] 517515 Assigned Surgical Provider 07/30/21 11/17/21 Maurilio Carlson MD [address] [place] [address] 646235 Assigned Surgical Provider 11/18/21 11/23/22 Herber Lopez MD [address] [place] [address] 168925 Assigned Surgical Provider 11/24/22 12/21/22 Gloria Elizalde MD [address] [place] [address] 304685 Resident 12/24/22 Olena Smith, KAT Specialty Bulldogger Gaming Floor Supervisor - Clinical 12/25/22 01/03/23 [place] [address] [place] [address] 29439 Assigned Surgical Provider 12/22/22 05/17/23 Mamadou Bowie MD [address] [place] [address] Assigned PCP 03/23/23 Herber Lopez MD [address] [place] [address] Assigned Surgical Provider 05/18/23 07/25/24 Makenzie Romano MD [address] [place] [address] site technician & Neurology - Child & Adolescent Psychiatry 11/08/23 Shani Stephenson MD [address] [place] [address] 325485 Resident Psychiatry 11/08/23 Yomi Campos, PhD [address] [place] [address] 96192 Assigned Behavioral Health Provider 01/27/24 08/25/24 Ita Newton Specialty Bulldogger 06/04/24 Kenya Jennings MD [address] [place] [address] 678345 Plastic Surgery 06/04/24 Herber Lopez MD [address] [place] [address] 40192 Assigned Dermatology Provider 07/26/24 Сергей Dumont, [facility] Gaming Floor Supervisor 08/13/24 Kenya Jennings MD 420 [facility] 195 [place], [place] 124055 Assigned Surgical Provider 08/26/24 Jesse Arvizu MD 5775 [place] [address] Assigned Behavioral Health Provider 08/26/24 09/24/24 Luis Dudley MD 240 [place], [place] 397884 Assigned Behavioral Health Provider 09/25/24 10/25/24 Carmen Cole PA-C 6363 [facility] 103 [place], [place] 851405 Assigned Sleep Provider 09/25/24 Racheal Ng MD 2450 [facility] F282 [place], [place] 072864 Assigned Behavioral Health Provider 10/26/24 documented as of this encounter
--- OUTSIDE RECORDS SUMMARY | 2024-10-28 19:14 | XMS_ITS | Encounter Summary ---
Author Organization [facility] Address [address] [place] [address] 8[address] Care Team Providers Care Bowling Alley Mechanic Name Role Phone Cindy Ruiz Unavailable Trevor Espino MD Unavailable [phone] Jaci Whitlock APRN ASSISTED LIVING EXECUTIVE DIRECTOR Unavailable + Doris Ricci MD Unavailable [phone] Yudy Pompa MD Unavailable [phone] Mary Carmen Rodriguez MD Unavailable + Herber Lopez MD Unavailable [phone] Gloria Elizalde MD Unavailable [phone] Mamadou Bowie MD Primary Care Provider [phone] Mamadou Bowie MD Unavailable Makenzie Romano MD Unavailable [phone] Shani Stephenson MD Unavailable [phone] Ita Newton Unavailable Unavailable Kenya Jennings MD Unavailable [phone] Herber Lopez MD Unavailable [phone] Сергей Dumont [facility] Unavailable Unavailable Kenya Jennings MD Unavailable [phone] Jesse Arvizu MD Unavailable Encounter Details Date Type Department Care Team (Latest Contact Info) Description 09/21/2024 Travel Social History Tobacco Use Types Packs/Day [...] relatives? Three times a week 04/02/2024 Attends Zoroastrianism Services Not on file 04/02 Active Member of Clubs or Organizations Not on f ile 04/02/2024 Attends Club or Organization Meetings Not on jd e 04/02/2024 Marital Status Not on file 04/02/2024 PHQ-2 Answer Date Recorded PHQ-2 Score 3 09/22/2024 [facility] - Occupational [...] PM CDT Legal Sex Female 3:58 AM DIVERSIONAL THERAPIST'S ASSISTANT Gender Identity other 11/14/2020 10:33 PM CDT Sexual Orientation Lesbian 06/22/2019 4: 20 AM DIVERSIONAL THERAPIST'S ASSISTANT documented as of this encounter Plan of Treatment Upcoming Encounters Date Type Department Care Team (Latest Contact Info) Description 10/29/2024 11:00 AM CDT Virtual Visit [facility] [address] [place] [address] [phone] 11/23/2024 1:30 PM CDT Office Visit [facility] Mental Health & Addiction [place] [phone] [address] [place] [phone] Melanie Boykin MD [address] [place] [address] [phone] Gloria Elizalde MD [address] [place] [address] [phone] 12/03/2024 3:00 PM CDT Office Visit [facility] Psychiatry [facility] [address] [phone] Jesse Arvizu MD [address] [place] [address] 12/15/2024 11:40 AM CDT Ancillary Procedure [facility] Imaging Center CT Clinic [address] [place] [phone] Yudy Pompa MD [address] [place] [address] [phone] 12/22/2024 11:40 AM CDT Oncology Visit [facility] [address] [place] [address] [phone] Yudy Pompa MD [address] [place] [address] 388[address] 02/22/2025 12:30 PM CDT Office Visit [facility] Clinic [address] [phone] Kenya Jennings MD [address] [place] [address] 99[address] 03/12/2025 1:00 PM DIVERSIONAL THERAPIST'S ASSISTANT Office Visit [facility] Internal Medicine [address] [phone] Mamadou Bowie MD [address] [place] [address] 400[address] 03/23/2025 8:00 AM DIVERSIONAL THERAPIST'S ASSISTANT Hospital Encounter [facility] PeriOp [facility] [address] [facility] [place] [phone] Kenya Jennings MD [address] [place] [address] 99[address] 03/23/2025 8:00 AM DIVERSIONAL THERAPIST'S ASSISTANT - 03/23/2025 12:05 PM DIVERSIONAL THERAPIST'S ASSISTANT Surgery [facility] [address] [place] [phone] Kenya Jennings MD [address] [place] [address] [phone] MASTECTOMY, BILATERAL, SIMPLE, NO nipple grafts. OnQ 03/30/2025 10:00 AM DIVERSIONAL THERAPIST'S ASSISTANT Office Visit [facility] [address] [phone] Lynn Parks APRN [address] [phone] 04/16/2025 1:00 PM DIVERSIONAL THERAPIST'S ASSISTANT Office Visit [facility] Internal Medicine [address] [phone] Mamadou Bowie MD [address] [place] [address] 24357 05/03/2025 4:00 PM DIVERSIONAL THERAPIST'S ASSISTANT Office Visit [facility] [address] [phone] Kenya Jennings MD [address] [place] [address] 309405 08/17/2025 12:15 PM CDT Office Visit [facility] Dermatology Clinic [address] [place] [phone] Herber Lopez MD [address] [place] [address] [phone] Scheduled Procedures Name Priority Associated Diagnoses Date/Ti me MASTECTOMY, BILATERAL, FOR GENDER AFFIRMATION Gender dysphoria in adult 03/23/2025 8:00 AM DIVERSIONAL THERAPIST'S ASSISTANT documented as of this encounter Goals [...] documented as of this encounter Care Teams Bowling Alley Mechanic Relationship Specialty Start Date End Date Mamadou Bowie MD [address] [place] [address] [phone] PCP - General 03/18/23 [address] Ru[place] [place] [address] Resident Internal Medicine 12/07/14 Trevor Espino MD [address] [place] [address] [phone] Urology 05/16/16 Jaci Whitlock APRN ASSISTED LIVING EXECUTIVE DIRECTOR [address] [place] [address] [phone] Nurse Practitioner - Women's Health 12/14/16 Doris Ricci MD [facility] [address] [place] [address] Physician Internal Medicine 07/11/20 Yudy Pompa MD [address] [place] [address] [phone] Assigned Cancer Care Provider 08/21/20 Mary Carmen Rodriguez MD [address] [place] [address] 98 [place], [place] 778405 Dermatology 11/09/20 Herber Lopez MD [address] [place] [address] [phone] Dermapathology 11/09/20 Gloria Elizalde MD [address] [place] [address] [phone] Resident 12/24/22 Mamadou Bowie MD [address] [place] [address] [phone] Assigned PCP 03/23/23 Makenzie Romano MD [address] [place] [address] [phone] sales architect & Neurology - Child & Adolescent Psychiatry 11/08/23 Shani Stephenson MD [address] [place] [address] 55455 Resident Psychiatry 11/08/23 Ita Newton Specialty Room Cleaner 06/04/24 Kenya Jennings MD [address] [place] [address] 197805 Plastic Surgery 06/04/24 Herber Lopez MD [address] [place] [address] [phone] Assigned Dermatology Provider 07/26/24 Сергей Dumont [facility] Rn Observation 08/13/24 Kenya Jennings MD [address] [place] [address] [phone] Assigned Surgical Provider 08/26/24 Jesse Arvizu MD [address] [place] [address] Assigned Behavioral Health Provider 08/26/24 09/24/24 documented as of this encounter
--- OUTSIDE RECORDS SUMMARY | 2024-10-28 19:14 | XMS_ITS | Encounter Summary ---
Author Organization [facility] Address [address] [place] [address] 13980 Care Team Providers Care Wire Frame Lampshade Maker Name Role Phone Cindy Ruiz Unavailable Trevor Espino MD Unavailable [phone] Jaci Whitlock APRN WASTE MANAGEMENT RECYCLING TECHNICIAN Unavailable + Dorsi Ricci MD Unavailable Yudy Pompa MD Unavailable Mary Carmen Rodriguez MD Unavailable + Herber Lopez MD Unavailable [phone] Gloria Elizalde MD Unavailable [phone] Mamadou Bowie MD Primary Care Provider [phone] Mamadou Bowie MD Unavailable Makenzie Romano MD Unavailable [phone] Shani Stephenson MD Unavailable [phone] Ita Newton Unavailable Unavailable Kenya Jennings MD Unavailable [phone] Herber Lopez MD Unavailable [phone] Сергей Dumont [facility] Unavailable Unavailable Kenya Jennings MD Unavailable [phone] Jesse Arvizu MD Unavailable Encounter Details Date Type Department Care Team (Latest Contact Info) Description 09/15/2024 Travel Social History Tobacco Use Types Packs/Day [...] relatives? Three times a week 04/02/2024 Attends Druze Services Not on file 04/02 Active Member of Clubs or Organizations Not on f ile 04/02/2024 Attends Club or Organization Meetings Not on jd e 04/02/2024 Marital Status Not on file 04/02/2024 PHQ-2 Answer Date Recorded PHQ-2 Score 4 09/16/2024 [facility] - [...] in an abandoned building, in an overnight alf, or couch-surfing.) Yes 04/03/2024 Are you worried [...] PM CDT Legal Sex Female 3:58 AM CHEMIST PROTEINS Gender Identity other 11/14/2020 10:33 PM CDT Sexual Orientation Lesbian 06/22/2019 4: 20 AM CHEMIST PROTEINS documented as of this encounter Plan of Treatment Upcoming Encounters Date Type Department Care Team (Latest Contact Info) Description 10/29/2024 11:00 AM CDT Virtual Visit [facility] [address] [place] [address] [phone] 11/23/2024 1:30 PM CDT Office Visit [facility] Mental Health & Addiction [place] [phone] [address] [place] [phone] Melanie Boykin MD [address] [place] [address] 199644 Gloria Elizalde MD [address] [place] [address] [phone] 12/03/2024 3:00 PM CDT Office Visit [facility] Psychiatry [facility] [address] [phone] Jesse Arvizu MD [address] [place] [address] 12/15/2024 11:40 AM CDT Ancillary Procedure [facility] Imaging Center CT Clinic [address] [place] [phone] Yudy Pompa MD [address] [place] [address] 386255 12/22/2024 11:40 AM CDT Oncology Visit [facility] [address] [place] [address] [phone] Yudy Pompa MD [address] [place] [address] 24391 02/22/2025 12:30 PM CDT Office Visit [facility]astic [facility] Reconstruct[facility] Surgery Clinic [address] [phone] Kenya Jennings MD [address] [place] [address] 41382 03/12/2025 1:00 PM CHEMIST PROTEINS Office Visit [facility] Internal Medicine [address] [phone] Mamadou Bowie MD [address] [place] [address] 03/23/2025 8:00 AM CHEMIST PROTEINS Hospital Encounter [facility] PeriOp [facility] [address] [place] [phone] Kenya Jennings MD [address] [place] [address] 6[address] 03/23/2025 8:00 AM CHEMIST PROTEINS - 03/23/2025 12:05 PM CHEMIST PROTEINS Surgery [facility] [address] [place] [phone] Kenya Jennings MD [address] [place] [address] [phone] MASTECTOMY, BILATERAL, SIMPLE, NO nipple grafts. OnQ 03/30/2025 10:00 AM CHEMIST PROTEINS Office Visit [facility] Reconstruct[facility] Surgery Clinic [address] [phone] Lynn Parks APRN [address] [phone] 04/16/2025 1:00 PM CHEMIST PROTEINS Office Visit [facility] Internal Medicine [address] [phone] Mamadou Bowie MD [address] [place] [address] 54312 05/03/2025 4:00 PM CHEMIST PROTEINS Office Visit [facility] Reconstruct[facility] Surgery Clinic [address] [phone] Kenya Jennings MD [address] [place] [address] 444125 08/17/2025 12:15 PM CDT Office Visit [facility] Dermatology Clinic [address] [place] [phone] Herber Lopez MD [address] [place] [address] [phone] Scheduled Procedures Name Priority Associated Diagnoses Date/Ti me MASTECTOMY, BILATERAL, FOR GENDER AFFIRMATION Gender dysphoria in adult 03/23/2025 8:00 AM CHEMIST PROTEINS documented as of this encounter Goals Goal [...] documented as of this encounter Care Teams Wire Frame Lampshade Maker Relationship Specialty Start Date End Date Mamadou Bowie MD [address] [place] [address] 26204 PCP - General 03/18/23 Cindy Ruiz [place] [address] Resident Internal Medicine 12/07/14 Trevor Espino MD [address] [place] [address] 116255 Urology 05/16/16 Jaci Whitlock APRN WASTE MANAGEMENT RECYCLING TECHNICIAN [address] [place] [address] [phone] Nurse Practitioner - Women's Health 12/14/16 Doris Ricci MD [facility] [address] [place] [address] Physician Internal Medicine 07/11/20 Yudy Pompa MD [address] [place] [address] 845995 Assigned Cancer Care Provider 08/21/20 Mary Carmen Rodriguez MD [address] [place] [address] 98 [place], [place] [phone] Dermatology 11/09/20 Herber Lopez MD [address] [place] [address] [phone] Dermapathology 11/09/20 Gloria Elizalde MD [address] [place] [address] 843115 Resident 12/24/22 Mamadou Bowie MD [address] [place] [address] [phone] Assigned PCP 03/23/23 Makenzie Romano MD [address] [place] [address] [phone] yard supervisor & Neurology - Child & Adolescent Psychiatry 11/08/23 Shani Stephenson MD [address] [place] [address] 55455 Resident Psychiatry 11/08/23 Ita Newton Specialty Warranty Coordinator 06/04/24 Kenya Jennings MD [address] [place] [address] [phone] Plastic Surgery 06/04/24 Herber Lopez MD [address] [place] [address] [phone] Assigned Dermatology Provider 07/26/24 Сергей Dumont [facility] Equipment Cleaner And Tester 08/13/24 Kenya Jennings MD [address] [place] [address] [phone] Assigned Surgical Provider 08/26/24 Jesse Arvizu MD [address] [place] [address] Assigned Behavioral Health Provider 08/26/24 09/24/24 documented as of this encounter
--- OUTSIDE RECORDS SUMMARY | 2024-10-28 19:14 | XMS_ITS | Encounter Summary ---
Author Organization [place] Address [address] [place] [address] Care Team Providers Care Market Research Coordinator Name Role Phone RichielelaCindy Unavailable +[phone] Kaitlin Branch MD Unavailable [phone] Trevor Espino MD Unavailable [phone] Melanie Boykin MD Unavailable Jaci Whitlock SHOT BLAST EQUIPMENT OPERATOR SCHEDULING CLERK Unavailable + Yudy Mathews MD Primary Care Provider [phone] Yudy Mathews MD Unavailable [phone] Jaci Whitlock SHOT BLAST EQUIPMENT OPERATOR SCHEDULING CLERK Unavailable + Juan M Smith MD, Madhuri Unavailable +[phone] Doris Ricci MD Unavailable +[phone] Yudy Mathews MD Unavailable +[phone] Antonette Castro PA-C Unavailable +[phone] Yudy Pompa MD Unavailable Jessi Mcfadden MD Unavailable + [phone] Mary Carmen Rodriguez MD Unavailable + Herber Lopez MD Unavailable +[phone] Yomi Izquierdo DPM Unavailable [phone] Torey Luna MD Primary Care Provider + [phone] Antonette Castro PA-C Unavailable +[phone] Torey Luna MD Unavailable +[phone] Herber Lopez MD Unavailable +[phone] Maurilio Carlson MD Unavailable Herber Lopez MD Unavailable +[phone] Gloria Elizalde MD Unavailable +[phone] Olena Smith [facility] Unavailable Unavailable Maurilio Carlson MD Unavailable Mamadou Bowie MD Primary Care Provider [phone] AzebMamadou menchaca MD Unavailable Herber Lopez MD Unavailable +[phone] Makenzie Romano MD Unavailable +[phone] Shani Stephenson MD Unavailable [phone] Yomi Campos PhD Unavailable +[phone] Ita Newton Unavailable Unavailable Kenya Jennings MD Unavailable +[phone] Herber Lopez MD Unavailable +[phone] Сергей Dumont [facility] Unavailable Unavailable Kenya Jennings MD Unavailable + [phone] Jesse Arvizu MD Unavailable Luis Dudley MD Unavailable +[phone] Carmen Cole-C Unavailable +[phone] Racheal Ng MD Unavailable +[phone] Encounter Details Date Type Department Care Team (Late st Contact Info) Description 06/10/2020 Team Conference [facility] [address] [facility] [place] [address] Rhianna Berry, TISH [facility] [address] [facility] [address] [place] [address] (work) Social History Tobacco Use Types Packs/Day Years Used Date Smoking Tobacco: Never Smokeless Tobacco: Never Alcohol Use Standard Drinks/Week Comments No 0 (1 standard drink = 0.6 oz pur e alcohol) PHQ-2 Answer Date Recorded PHQ-2 Score 3 03/11/2020 Comments No Sex and Gender Information Value Date Recorded Sex Assigned at Female 11/14/2020 10:33 PM CDT Legal Sex Female 3:58 AM ELECTRICAL TRANSMISSION ENGINEER Gender Identity other 11/14/2020 10:33 PM CDT Sexual Orientation Lesbian 06/22/2019 4: 20 AM ELECTRICAL TRANSMISSION ENGINEER COVID-19 Exposure Response Date Recorded In the last month, have you been in contact with someone who was confirmed or suspected to have Coronavirus / COVID-19? No / Unsure 05/12/2020 10:42 AM ELECTRICAL TRANSMISSION ENGINEER documented as of this encounter Miscellaneous Notes * Telephone Encounter - Rhianna Berry APRN CNS - 06/09/2020 9:08 AM CST Pulmonary Nodule Conference Patient Name: Gabriela Kraus Reason for conference discussion (brief overview): 55 yo female with ASHVIN lung nodule that has been slowly increasing in size. Plan is to wedge this out but would like coil localization prior. Specific Question: Is IR able to coil loc the ASHVIN (series 4 image 96) nodule prior to surgery? Pertinent Histology: None Referring Physician: Dr. Shanelle Mcgowan The patient's case was presented at the multidisciplinary conference for the above noted reason. There was a consensus recommendation for the following actions: Not discussed. Dr. Schulz already reviewed the case and approved coil localization of the nodule. Case Lead: Rhianna Berry Interventional Radiology Staff Present: Dr. Schulz TRICAL TRANSMISSION ENGINEER documented in this encounter Plan of Treatment Upcoming Encounters Date Type Department Care Team (Latest Contact Info) Description 10/29/2024 11:00 AM CDT Virtual Visit [facility] Psychiatry Clinic [address] [facility] [address] [place] [address] 11/23/2024 1:30 PM CDT Office Visit [facility] Mental Health & Addiction [address] F[address] [phone] Melanie Boykin MD 2450 [place], [place] 744914 Gloria Elizalde MD [address] [place] [address] 093575 12/03/2024 3:00 PM CDT [facility] [address] [facility] 255 [place] [phone] Jesse Arvizu MD 57[address] [place], [place] 154296 12/15/2024 11:40 AM CDT Ancillary Procedure [facility] Imaging Center CT Clinic [address] [place] [phone] Yudy Pompa MD [address] [place] [address] 885465 12/22/2024 11:40 AM CDT Oncology Visit [facility] [address] [place] [phone] Yudy Pompa MD [address] [place] [address] 796965 02/22/2025 12:30 PM CDT Office Visit [facility] Plastic and Reconstructive Surgery Clinic [address] [place] [phone] Kenya Jennings MD [address] [place] [address] 419215 03/12/2025 1:00 PM ELECTRICAL TRANSMISSION ENGINEER Office Visit [facility] Internal Medicine [place] [address] [phone] Mamadou Bowie MD [address] [place] [address] 03/23/2025 8:00 AM ELECTRICAL TRANSMISSION ENGINEER Hospital Encounter [facility] PeriOp Services [address] [place] [address] [phone] Kenya Jennings MD [address] [place] [address] 03/23/2025 8:00 AM ELECTRICAL TRANSMISSION ENGINEER - 03/23/2025 12:05 PM ELECTRICAL TRANSMISSION ENGINEER Surgery [facility] [address] [place] [address] [phone] Kenya Jennings MD [address] [place] [address] 175435 MASTECTOMY, BILATERAL, SIMPLE, NO nipple grafts. OnQ 03/30/2025 10:00 AM ELECTRICAL TRANSMISSION ENGINEER Office Visit [facility] Reconstructive Surgery Clinic [address] [phone] Lynn Parks APRN [address] [address] 04/16/2025 1:00 PM ELECTRICAL TRANSMISSION ENGINEER Office Visit [facility] Internal Medicine [address] [phone] Mamadou Bowie MD [address] [place] [address] 96[address] 05/03/2025 4:00 PM ELECTRICAL TRANSMISSION ENGINEER Office Visit [facility] [address] [phone] Kenya Jennings MD [address] [place] [address] 08/17/2025 12:15 PM CDT Office Visit [facility] Dermatology Clinic [place] [address] [facility] 3rd [place] [phone] Herber Lopez MD [address] [facility] [address] [place], [place] [address] Scheduled Procedures Name Priority Associated Diagnoses Date/Ti me MASTECTOMY, BILATERAL, FOR GENDER AFFIRMATION Gender dysphoria in adult 03/23/2025 8:00 AM ELECTRICAL TRANSMISSION ENGINEER documented as of this encounter Visit Diagnoses Not on filedocumented in this encounter Additional Health Concerns Assessment Noted Time PHQ-9 Depression Total Score: 8 03/11/20 20 4:01 PM ELECTRICAL TRANSMISSION ENGINEER documented as of this encounter Care Teams Market Research Coordinator Relationship Specialty Start Date End Date Yudy Mathews MD [address] [facility] [address] [place] [address] PCP - General Internal Medicine 10/17/18 04/18/21 Torey Luna MD [address] [place] [address]01 PCP - General Internal Medicine 04/19/21 03/17/23 aMmadou Bowie MD [address] [place] [address]1879 PCP - General 03/18/23 Cindy Ruiz [facility] [address] [place], [place] 966070 Resident Internal Medicine 12/07/14 Kaitlin Branch MD [facility] [place] [address] [place], [place] 213044 fumigator and sterilizer 01/02/16 10/17/20 Trevor Espino MD [address] [place] [address] 080685 Urology 05/16/16 Melanie Boykin MD [address] [place] [address] [phone] fumigator and sterilizer 12/10/16 11/07/23 Jaci Whitlock APRN SCHEDULING CLERK [address] [place] [address] [phone] Nurse Practitioner - Women's Health 12/14/16 [place] [address] Assigned PCP 09/24/19 07/24/20 Jaci Whitlock APRN SCHEDULING CLERK [address] [place] [address] Assigned OBGYN Provider 02/26/20 Shanelle Mcgowan MD [address] [place] [address] 13952 Assigned Surgical Provider 02/26/20 07/29/21 Doris Ricci MD [address] [address] Physician Internal Medicine 07/11/20 [place] [address] Assigned PCP 07/25/20 04/22/21 Antonette Castro PA-C [address] [place] [address] Assigned Heart and Vascular Provider 07/20/20 04/08/21 Yudy Pompa MD [address] [place] [address]806 Assigned Cancer Care Provider 08/21/20 Jessi Mcfadden MD [address] [place] [address] F282/2A [place] [address] Resident Psychiatry 11/08/20 12/23/22 Mary Carmen Rodriguez MD [address] [place] [address] Dermatology 11/09/20 Herber Lopez MD [address] [place] [address] 97[address] Dermapathology 11/09/20 Yomi Izquierdo DPM 14851 [facility] [address] [place] [address] Assigned Musculoskeletal Provider 12/04/20 06/08/22 Antonette Castro PA-C [address] [place] [address] 349[address] Assigned Gastroenterology Provider 04/09/21 07/08/21 Torey Luna MD [address] [place] [address] [place] [address] Assigned PCP 04/23/21 03/22/23 Herber Lopez MD [address] [place] [address] 0[address]60 Assigned Surgical Provider 07/30/21 11/17/21 Maurilio Carlson MD [address] [place] [address] 18956 Assigned Surgical Provider 11/18/21 11/23/22 Herber Lopez MD [address] [place] [address] 02317 Assigned Surgical Provider 11/24/22 12/21/22 Gloria Elizalde MD [address] [place] [address] 14[address] Resident 12/24/22 Olena Smith [facility] Specialty Strawhat Sizer Forest Scientist - Clinical 12/25/22 01/03/23 [place] [address] [place] [address] Assigned Surgical Provider 12/22/22 05/17/23 Mamadou Bowie MD [address] [place] [address] 55070 Assigned PCP 03/23/23 Herber Lopez MD [address] [place] [address] 63222 Assigned Surgical Provider 05/18/23 07/25/24 Makenzie Romano MD [address] [place] [address] 999[address] [place], [place] 693404 fumigator and sterilizer & Neurology - Child & Adolescent Psychiatry 11/08/23 Shani Stephenson MD [address] [facility] [address] [place], [place] 098395 Resident Psychiatry 11/08/23 Yomi Campos, PhD [facility] [address] [place], [place] 0[address]174 Assigned Behavioral Health Provider 01/27/24 08/25/24 Ita Newton Specialty Strawhat Sizer 06/04/24 Kenya Jennings MD 420 [facility] 195 [place], [place] 751115 Plastic Surgery 06/04/24 Herber Lopez MD [address] [facility] [address] [place], [place] 882045 Assigned Dermatology Provider 07/26/24 Сергей Dumont [facility] Forest Scientist 08/13/24 Kenya Jennings MD 420 [facility] 195 [place], [place] 307795 Assigned Surgical Provider 08/26/24 Jesse Arvizu MD 57[address] [place], [place] 831716 Assigned Behavioral Health Provider 08/26/24 09/24/24 Luis Dudley MD 240 [place], [place] 084944 Assigned Behavioral Health Provider 09/25/24 10/25/24 Carmen Cole PA-C [address] [place] [address] Assigned Sleep Provider 09/25/24 Racheal Ng MD [address] [place] 116944 Assigned Behavioral Health Provider 10/26/24 documented as of this encounter
--- OUTSIDE RECORDS SUMMARY | 2024-10-28 19:14 | XMS_ITS | Encounter Summary ---
Author Organization [place] Address [address] [place] [address] Care Team Providers Care Water Hauler Name Role Phone Cindy Ruiz Unavailable Trevor Espino MD Unavailable [phone] Jaci Whitlock APRN DIRECTOR OF PARKS AND RECREATION Unavailable + Doris Ricci MD Unavailable Yudy Pompa MD Unavailable [phone] Mary Carmen Rodriguez MD Unavailable + Herber Lopez MD Unavailable [phone] Gloria Elizalde MD Unavailable [phone] Mamadou Bowie MD Primary Care Provider [phone] Mamadou Bowie MD Unavailable Makenzie Romano MD Unavailable [phone] Shani Stephenson MD Unavailable [phone] Ita Newton Unavailable Unavailable Kenya Jennings MD Unavailable +[phone] Herber Lopez MD Unavailable [phone] Сергей Dumont [facility] Unavailable Unavailable Kenya Jennings MD Unavailable [phone] Jesse Arvizu MD Unavailable Encounter Details Date Type Department Care Team (Latest Contact Info) Description 09/16/2024 Travel Social History Tobacco Use Types Packs/Day [...] Answer Date Recorded PHQ-2 Score 3 09/17/2024 [facility] [...] PM CDT Legal Sex Female 3:58 AM OVERLOCK SLEEVE SETTER Gender Identity other 11/14/2020 10:33 PM CDT Sexual Orientation Lesbian 06/22/2019 4: 20 AM OVERLOCK SLEEVE SETTER documented as of this encounter Plan of Treatment Upcoming Encounters Date Type Department Care Team (Latest Contact Info) Description 10/29/2024 11:00 AM CDT [facility] [address] [place] [address] [phone] 11/23/2024 1:30 PM CDT Office Visit [facility] Mental Health & Addiction [place] [phone] [address] [place] [phone] Melanie Boykin MD [address] [place] [address] 411934 Gloria Elizalde MD [address] [place] [address] [phone] 12/03/2024 3:00 PM CDT Office Visit [facility] Psychiatry [facility] [address] [phone] Jesse Arvizu MD [address] [place] [address] 12/15/2024 11:40 AM CDT Ancillary Procedure [facility] Imaging Center CT Clinic [address] 1st [place] [phone] Yudy Pompa MD [address] [place] [address] 130405 12/22/2024 11:40 AM CDT Oncology Visit [facility] [address] [place] [phone] Yudy Pompa MD [address] [place] [address] 02/22/2025 12:30 PM CDT Office Visit [facility] Re[facility] Surgery Clinic [address] [phone] Kenya Jennings MD [address] [place] [address] 03/12/2025 1:00 PM OVERLOCK SLEEVE SETTER Office Visit [facility] Internal Medicine [address] [phone] Mamadou Bowie MD [address] [place] [address] 03/23/2025 8:00 AM OVERLOCK SLEEVE SETTER Hospital Encounter [facility] PeriOp Services [address] [place] [phone] Kenya Jennings MD [address] [place] [address] 03/23/2025 8:00 AM OVERLOCK SLEEVE SETTER - 03/23/2025 12:05 PM OVERLOCK SLEEVE SETTER Surgery [facility] [address] [place] [phone] Kenya Jennings MD [address] [place] [address] [phone] MASTECTOMY, BILATERAL, SIMPLE, NO nipple grafts. OnQ 03/30/2025 10:00 AM OVERLOCK SLEEVE SETTER Office Visit [facility] [address] [phone] Lynn Parks APRN [address] 043675 04/16/2025 1:00 PM OVERLOCK SLEEVE SETTER Office Visit [facility] Internal Medicine [address] [phone] Mamadou Bowie MD [address] [place] [address] 05/03/2025 4:00 PM OVERLOCK SLEEVE SETTER Office Visit [facility] [address] [phone] Kenya Jennings MD [address] [place] [address] 089865 08/17/2025 12:15 PM CDT Office Visit [facility] Dermatology Clinic [address] [place] [phone] Herber Lopez MD [address] [place] [address] [phone] Scheduled Procedures Name Priority Associated Diagnoses Date/Ti me MASTECTOMY, BILATERAL, FOR GENDER AFFIRMATION Gender dysphoria in adult 03/23/2025 8:00 AM OVERLOCK SLEEVE SETTER documented as of this encounter Goals Goal [...] documented as of this encounter Care Teams Water Hauler Relationship Specialty Start Date End Date Mamadou Bowie MD [address] [place] [address]28 PCP - General 03/18/23 [address] Ru[place] [address] Resident Internal Medicine 12/07/14 Trevor Espino MD [address] [place] [address] 812005 Urology 05/16/16 Jaci Whitlock APRN DIRECTOR OF PARKS AND RECREATION [address] [place] [address] 299685 Nurse Practitioner - Women's Health 12/14/16 Doris Ricci MD [facility] [address] [place] [address] Physician Internal Medicine 07/11/20 Yudy Pompa MD [address] [place] [address] 403705 Assigned Cancer Care Provider 08/21/20 Mary Carmen Rodriguez MD [address] [place] [address] 98 [place], [place] 403175 Dermatology 11/09/20 Herber Lopez MD [address] [place] [address] 277915 Dermapathology 11/09/20 Gloira Elizalde MD [address] [place] [address] 059155 Resident 12/24/22 [place] Bow[place] [address] [place] [address] 502965 Assigned PCP 03/23/23 Makenzie Romano MD [address] [place] [address] [phone] pipe setter & Neurology - Child & Adolescent Psychiatry 11/08/23 Shani Stephenson MD [address] [place] [address] Resident Psychiatry 11/08/23 Ita Newton Specialty Yard Warehouse Worker 06/04/24 Kenya Jennings MD [address] [place] [address] 842755 Plastic Surgery 06/04/24 Herber Lopez MD [address] [place] [address] 622525 Assigned Dermatology Provider 07/26/24 Сергей Dumont [facility] Loss Prevention Research Engineer 08/13/24 Kenya Jennings MD [address] [place] [address] 964225 Assigned Surgical Provider 08/26/24 Jesse Arvizu MD [address] [place] [address] Assigned Behavioral Health Provider 08/26/24 09/24/24 documented as of this encounter
--- OUTSIDE RECORDS SUMMARY | 2024-10-28 19:14 | XMS_ITS | Encounter Summary ---
Author Organization [facility] Address [address] [place] [address] Care Team Providers Care Acetone Recovery Worker Name Role Phone RichielelaCindy Unavailable +[phone] Kaitlin Branch MD Unavailable +[phone] Trevor Espino MD Unavailable +[phone] Melanie Boykin MD Unavailable +[phone] Jaci Whitlock CHIEF DESIGN ENGINEER SCIENTIFIC RESEARCH ASSOCIATE Unavailable + Yudy Mathews MD Primary Care Provider +[phone] Yudy Mathews MD Unavailable +[phone] Jaci Whitlock CHIEF DESIGN ENGINEER SCIENTIFIC RESEARCH ASSOCIATE Unavailable + Juan M Smith MD, Madhuri Unavailable +[phone] Doris Ricci MD Unavailable +[phone] Yudy Mathews MD Unavailable +[phone] Antonette Castro PA-C Unavailable +[phone] Yudy Pompa MD Unavailable +[phone] Jessi Mcfadden MD Unavailable + [phone] Mary Carmen Rodriguez MD Unavailable + Herber Lopez MD Unavailable +[phone] Yomi Izquierdo DPM Unavailable +[phone] Torey Luna MD Primary Care Provider + [phone] Antonette Castro PA-C Unavailable +[phone] Torey Luna MD Unavailable +[phone] Herber Lopez MD Unavailable +[phone] Maurilio Carlson MD Unavailable Herber Lopez MD Unavailable +[phone] Gloria Elizalde MD Unavailable +[phone] Olena Smith [facility] Unavailable Unavailable Maurilio Carlson MD Unavailable Mamadou Bowie MD Primary Care Provider +[phone] AzebMamadou menchaca MD Unavailable Herber Lopez MD Unavailable +[phone] Makenzie Romano MD Unavailable +[phone] Shani Stephenson MD Unavailable +[phone] Yomi Campos PhD Unavailable +[phone] Ita Newton Unavailable Unavailable Kenya Jennings MD Unavailable + [phone] Herber Lopez MD Unavailable +[phone] Сергей Dumont [facility] Unavailable Unavailable Kenya Jennings MD Unavailable + [phone] Jesse Arvizu MD Unavailable Luis Dudley MD Unavailable +[phone] Carmen Cole-C Unavailable +[phone] Racheal Ng MD Unavailable +[phone] Encounter Details Date Type Department Care Team (Late st Contact Info) Description 10/16/2019 Team Conference [facility] [address] [facility] [place] [address] Rhianna Berry, TISH [facility] [address] [facility] [address] [place] [address] Social History Tobacco Use Types Packs/Day Years Used Date Smoking Tobacco: Never Smokeless Tobacco: Never Alcohol Use Standard Drinks/Week Comments No 0 (1 standard drink = 0.6 oz pur e alcohol) PHQ-2 Answer Date Recorded PHQ-2 Score 1 06/22/2019 Comments No Sex and Gender Information Value Date Recorded Sex Assigned at Female 11/14/2020 10:33 PM CDT Legal Sex Female 3:58 AM FEEDER DRIVER Gender Identity other 11/14/2020 10:33 PM CDT Sexual Orientation Lesbian 06/22/2019 4: 20 AM FEEDER DRIVER COVID-19 Exposure Response Date Recorded In the last month, have you been in contact with someone who was confirmed or suspected to have Coronavirus / COVID-19? No / Unsure 10/14/2019 3:01 PM CDT documented as of this encounter Miscellaneous Notes * Telephone Encounter - Rhianna Berry APRN CNS - 10/15/2019 7:34 AM CDT Pulmonary Nodule Conference Patient Name: Gabriela Kraus Reason for conference discussion (brief overview): 53 yo female with h/o endometrial cancer (stage IV) s/p hysterectomy. PET from 12/2018 showed a left upper lobe pulmonary nodule with mild FDG avidity as well as a RLL ggo, RML nodule, and 2 solid LLL nodules. PMH includes Gorlin Syndrome. We saw her in January and the plan at that time was short term follow up. Recent chest CT report states thenodules are grossly unchanged compared to the December 2018 CT.. Patient is reluctant to have surgery. Was discussed her in March 2019 and recommendation was follow up CT in 6 months (ggo was felt to actually be solid and other nodules had been stable). The follow up CT shows that a cavitary lesion in the ASHVIN has increased. Specific Question: Recommendations based on most recent chest CT. 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 There was a consensus recommendation for the following actions: Patient wants to defer any potential surgery to March. Plan will be to get a chest CT and followup with Dr. Mcgowan in February. Was not discussed at conference. Case Lead: Rhianna Berry Interventional Radiology Staff Present: N/A documented in this encounter Plan of Treatment Upcoming Encounters Date Type Department Care Team (Latest Contact Info) Description 10/29/2024 11:00 AM CDT [facility] [address] [facility] [address] [place] [phone] 11/23/2024 1:30 PM CDT Office Visit [facility] Mental Health & Addiction [address] F[address] [phone] Melanie Boykin MD 2450 [place], [place] [phone] Gloria Elizalde MD 420 [place], [place] [phone] 12/03/2024 3:00 PM CDT Office Visit [facility] [address] [facility] [address] [place] [address] [phone] Jesse Arvizu MD [address] [place] [address] [phone] 12/15/2024 11:40 AM CDT Ancillary Procedure [facility] Imaging Center [facility] Clinic [address] 1st [place] [phone] Yudy Pompa MD [address] [place] [address] 12/22/2024 11:40 AM CDT Oncology Visit [facility] [address] [place] [phone] Yudy Pompa MD [address] [place] [address] 02/22/2025 12:30 PM CDT Office Visit [facility] Plastic and Reconstructive Surgery [address] [phone] Kenya Jennings MD [address] [place] [address] [phone] 03/12/2025 1:00 PM FEEDER DRIVER Office Visit [facility] Internal Medicine [address] [phone] Mamadou Bowie MD [address] [place] [address] [phone] 03/23/2025 8:00 AM FEEDER DRIVER Hospital Encounter [facility] PeriOp Services [address] [place] [phone] Kenya Jennings MD [address] [place] [address] 03/23/2025 8:00 AM FEEDER DRIVER - 03/23/2025 12:05 PM FEEDER DRIVER Surgery [facility] [address] [place] [address] [phone] Kenya Jennings MD [address] [place] [address] [phone] MASTECTOMY, BILATERAL, SIMPLE, NO nipple grafts. OnQ 03/30/2025 10:00 AM FEEDER DRIVER Office Visit [facility] Plastic and Reconstructive Surgery [address] [phone] Lynn Parks APRN [address] [address] 04/16/2025 1:00 PM FEEDER DRIVER Office Visit [facility] Internal Medicine [address]th [place] [phone] Mamadou Bowie MD [address] [place] [address] 05/03/2025 4:00 PM FEEDER DRIVER Office Visit [facility] Plastic and Reconstructive Surgery Clinic [address] [place] [phone] Kenya Jennings MD 420 [facility] 195 [place], [place] 231165 08/17/2025 12:15 PM CDT Office Visit [facility] Dermatology Clinic [address] [place] [phone] Herber Lopez MD 420 [facility] 98 [place], [place] 608155 Scheduled Procedures Name Priority Associated Diagnoses Date/Ti me MASTECTOMY, BILATERAL, FOR GENDER AFFIRMATION Gender dysphoria in adult 03/23/2025 8:00 AM FEEDER DRIVER documented as of this encounter Visit Diagnoses Not on filedocumented in this encounter Additional Health Concerns Assessment Noted Time PHQ-9 Depression Total Score: 3 06/22/19 20 1:01 PM FEEDER DRIVER documented as of this encounter Care Teams Acetone Recovery Worker Relationship Specialty Start Date End Date Yudy Mathews MD [address] [place] [address] 395 [place] [address] PCP - General Internal Medicine 10/17/18 04/18/21 Torey Luna MD [address] [place] [address] PCP - General Internal Medicine 04/19/21 03/17/23 Mamadou Bowie MD [address] [place] [address] PCP - General 03/18/23 [address] Ruiz [place] [address] Resident Internal Medicine 12/07/14 Kaitlin Branch MD [address] [place] [address] ratings analyst 01/02/16 10/17/20 Trevor Espino MD [address] [place] [address] Urology 05/16/16 Melanie Boykin MD [address] [place] [address] 66935 ratings analyst 12/10/16 11/07/23 Jaci Whitlock APRN SCIENTIFIC RESEARCH ASSOCIATE [address] [place] [address] 31434 Nurse Practitioner - Women's Health 12/14/16 [place] [address] Assigned PCP 09/24/19 07/24/20 Jaci Whitlock APRN SCIENTIFIC RESEARCH ASSOCIATE [address] [place] [address] Assigned OBGYN Provider 02/26/20 Shanelle Mcgowan MD [address] [place] [address] Assigned Surgical Provider 02/26/20 07/29/21 Doris Ricci MD [facility] [address] [address] Physician Internal Medicine 07/11/20 Yudy Mathews MD [facility] [place] [address] Assigned PCP 07/25/20 04/22/21 Antonette Castro PA-C [address] [place] [address] Assigned Heart and Vascular Provider 07/20/20 04/08/21 Yudy Pompa MD [address] [place] [address] [phone] Assigned Cancer Care Provider 08/21/20 Jessi Mcfadden MD 2450 [facility] F282/2A [place], [place] 514124 Resident Psychiatry 11/08/20 12/23/22 Mary Carmen Rodriguez MD [address] [phone] Dermatology 11/09/20 Herber Lopez MD [address] [address] Dermapathology 11/09/20 Yomi Izquierdo DPM [address] [facility] [address] [place] [address] Assigned Musculoskeletal Provider 12/04/20 06/08/22 Antonette Castro PA-C [address] [place] [address] Assigned Gastroenterology Provider 04/09/21 07/08/21 Torey Luna MD [address] [address] Assigned PCP 04/23/21 03/22/23 Herber Lopez MD [address] [place] [address] Assigned Surgical Provider 07/30/21 11/17/21 Maurilio Carlson MD [address] [place] [address] 9[address]64 Assigned Surgical Provider 11/18/21 11/23/22 Herber Lopez MD [address] [place] [address] 86727 Assigned Surgical Provider 11/24/22 12/21/22 Gloria Elizalde MD 420 [place] [address] Resident 12/24/22 Olena Smith LSW Specialty Instructional Specialist Concrete Pouring Supervisor - Clinical 12/25/22 01/03/23 [place] [address] [place] [address] Assigned Surgical Provider 12/22/22 05/17/23 Mamadou Bowie MD 909 [place], [place] 567335 Assigned PCP 03/23/23 Herber Lopez MD 420 [facility] 98 [place], [place] 414385 Assigned Surgical Provider 05/18/23 07/25/24 Makenzie Romano MD [address] [address] ratings analyst & Neurology - Child & Adolescent Psychiatry 11/08/23 Shani Stephenson MD [address] [place] [address] Resident Psychiatry 11/08/23 Yomi Campos, PhD [address] [place] [address] 785614 Assigned Behavioral Health Provider 01/27/24 08/25/24 Ita Newton Specialty Instructional Specialist 06/04/24 Kenya Jennings MD [address] [place] [address] 978395 Plastic Surgery 06/04/24 Herber Lopez MD [address] [place] [address] 434015 Assigned Dermatology Provider 07/26/24 Сергей Dumont [facility] Concrete Pouring Supervisor 08/13/24 Kenya Jennings MD [address] [place] [address] 873155 Assigned Surgical Provider 08/26/24 Jesse Arvizu MD 5775 [place], [place] [phone] Assigned Behavioral Health Provider 08/26/24 09/24/24 Luis Dudley MD 240 [place] [address] Assigned Behavioral Health Provider 09/25/24 10/25/24 Carmen Cole PA-C 6[address] [facility] [address] [place], [place] 558165 Assigned Sleep Provider 09/25/24 Racheal Ng MD 2450 [facility] [address] [place] [address] Assigned Behavioral Health Provider 10/26/24 documented as of this encounter
--- OUTSIDE RECORDS SUMMARY | 2024-10-28 19:15 | XMS_ITS | Encounter Summary ---
Author Organization [facility] Address [address] [place] [address] Care Team Providers Care Bookie Name Role Phone RichielelaCindy Unavailable +[phone] Kaitlin Branch MD Unavailable +[phone] Trevor Espino MD Unavailable +[phone] Melanie Boykin MD Unavailable +[phone] Jaci Whitlock IT FIELD TECHNICIAN EQUITY STRUCTURER Unavailable + Yudy Mathews MD Primary Care Provider [phone] Yudy Mathews MD Unavailable +[phone] Jaci Whitlock IT FIELD TECHNICIAN EQUITY STRUCTURER Unavailable + Juan M Smith MD, Madhuri Unavailable +[phone] Doris Ricci MD Unavailable +[phone] Yudy Mathews MD Unavailable +[phone] Antonette Castro PA-C Unavailable +[phone] Yudy Pompa MD Unavailable +[phone] Jessi Mcfadden MD Unavailable + [phone] Mary Carmen Rodriguez MD Unavailable + Herber Lopez MD Unavailable +[phone] Yomi Izquierdo DPM Unavailable +[phone] Torey Luna MD Primary Care Provider + [phone] Antonette Castro PA-C Unavailable +[phone] Torey Luna MD Unavailable +[phone] Herber Lopez MD Unavailable +[phone] Maurilio Carlson MD Unavailable Herber Lopez MD Unavailable +[phone] Gloria Elizalde MD Unavailable +[phone] Olena Smith [facility] Unavailable Unavailable Maurilio Carlson MD Unavailable Mamadou Bowie MD Primary Care Provider +[phone] AzebMamadou menchaca MD Unavailable Herber Lopez MD Unavailable +[phone] Makenzie Romano MD Unavailable +[phone] Shani Stephenson MD Unavailable +[phone] Yomi Campos PhD Unavailable +[phone] Ita Newton Unavailable Unavailable Kenya Jennings MD Unavailable + [phone] Herber Lopez MD Unavailable +[phone] Сергей Dumont [facility] Unavailable Unavailable Kenya Jennings MD Unavailable + [phone] Jesse Arvizu MD Unavailable Luis Dudley MD Unavailable +[phone] Carmen Cole PA-C Unavailable +[phone] Racheal Ng MD Unavailable +[phone] Encounter Details Date Type Department Care Team (Late st Contact Info) Description 05/24/2020 [facility] Cancer [address] [phone] Shanelle Mcgowan MD [address] [place] [address] Social History Tobacco Use Types Packs/Day Years Used Date Smoking Tobacco: Never Smokeless Tobacco: Never Alcohol Use Standard Drinks/Week Comments No 0 (1 standard drink = 0.6 oz pur e alcohol) PHQ-2 Answer Date Recorded PHQ-2 Score 3 03/11/2020 Comments No Sex and Gender Information Value Date Recorded Sex Assigned at Female 11/14/2020 10:33 PM CDT Legal Sex Female 3:58 AM CLOTH PRESSER Gender Identity other 11/14/2020 10:33 PM CDT Sexual Orientation Lesbian 06/22/2019 4: 20 AM CLOTH PRESSER COVID-19 Exposure Response Date Recorded In the last month, have you been in contact with someone who was confirmed or suspected to have Coronavirus / COVID-19? No / Unsure 05/12/2020 10:42 AM CLOTH PRESSER documented as of this encounter Plan of Treatment Upcoming Encounters Date Type Department Care Team (Latest Contact Info) Description 10/29/2024 11:00 AM CDT [facility] [address] [place] [address] [place] [phone] 11/23/2024 1:30 PM CDT Office Visit [facility] Mental Health & Addiction [address] [phone] Melanie Boykin MD [address] [place] [address] 179524 Gloria Elizalde MD [address] [place] [address] 592175 12/03/2024 3:00 PM CDT Office Visit [facility] Psychiatry [facility] [address] [place] [address] [place] [phone] Jesse Arvizu MD [address] [place] [address] 12/15/2024 11:40 AM CDT Ancillary Procedure [facility] [address] [place] [phone] Yudy Pompa MD [address] [place] [address] 12/22/2024 11:40 AM CDT Oncology Visit [facility] [address] [place] [phone] Yudy Pompa MD [address] [place] [address] 02/22/2025 12:30 PM CDT Office Visit [facility] Plastic and Reconstructive Surgery Clinic [address]th [place] [phone] Kenya Jennings MD [address] [place] [address] 668165 03/12/2025 1:00 PM CLOTH PRESSER Office Visit [facility] Internal Medicine [address]th [place] [phone] Mamadou Bowie MD [address] [place] [address] 03/23/2025 8:00 AM CLOTH PRESSER Hospital Encounter [facility] PeriOp Services [address] [place] [address] [place] [phone] Kenya Jennings MD [address] [place] [address] 425245 03/23/2025 8:00 AM CLOTH PRESSER - 03/23/2025 12:05 PM CLOTH PRESSER Surgery [facility] PeriOp Services [address] [place] [address] [place] [phone] Kenya Jennings MD [address] [place] [address] 268005 MASTECTOMY, BILATERAL, SIMPLE, NO nipple grafts. OnQ 03/30/2025 10:00 AM CLOTH PRESSER Office Visit [facility] [address] [place] [phone] Lynn Parks APRN [address] [address] 04/16/2025 1:00 PM CLOTH PRESSER Office Visit [facility] Internal Medicine [address] [place] [phone] Mamadou Bowie MD [address] [place] [address] 05/03/2025 4:00 PM CLOTH PRESSER Office Visit [facility] [address] [phone] Kenya Jennings MD [address] [place] [address] 195 [place], [place] 433425 08/17/2025 12:15 PM CDT Office Visit [facility] Dermatology Clinic [address] [place] [phone] Herber Lopez MD 420 [facility] 98 [place] [address] Scheduled Procedures Name Priority Associated Diagnoses Date/Ti me MASTECTOMY, BILATERAL, FOR GENDER AFFIRMATION Gender dysphoria in adult 03/23/2025 8:00 AM CLOTH PRESSER documented as of this encounter Visit Diagnoses Not on filedocumented in this encounter Additional Health Concerns Assessment Noted Time PHQ-9 Depression Total Score: 8 03/11/20 20 4:01 PM CLOTH PRESSER documented as of this encounter Care Teams Bookie Relationship Specialty Start Date End Date Yudy Mathews MD [address] [place] [address] 395 [place] [address] PCP - General Internal Medicine 10/17/18 04/18/21 Torey Luna MD [address] [place] [address] PCP - General Internal Medicine 04/19/21 03/17/23 Mamadou Bowie MD [address] [place] [address] 25778 PCP - General 03/18/23 Cindy Ruiz [address] [place], [place] 798170 Resident Internal Medicine 12/07/14 Kaitlin Branch MD [address] [place] [address] director software 01/02/16 10/17/20 Trevor Espino MD [address] [place] [address] Urology 05/16/16 Melanie Boykin MD [address] [place] [address]76 director software 12/10/16 11/07/23 Jaci Whitlock APRN EQUITY STRUCTURER [address] [place] [address]647 Nurse Practitioner - Women's Health 12/14/16 [place] [address] Assigned PCP 09/24/19 07/24/20 Jaci Whitlock APRN CNP [address] [place] [address] 395 [place] [address] Assigned OBGYN Provider 02/26/20 Shanelle Mcgowan MD [address] [place] [address] 63619 Assigned Surgical Provider 02/26/20 07/29/21 Doris Ricci MD [address] [address] Physician Internal Medicine 07/11/20 [place] [address] Assigned PCP 07/25/20 04/22/21 Antonette Castro PA-C [address] [place] [address]53 Assigned Heart and Vascular Provider 07/20/20 04/08/21 Yudy Pompa MD [address] [place] [address] 724775 Assigned Cancer Care Provider 08/21/20 Jessi Mcfadden MD [address] [place] [address] F282/2A [place], [place] 040974 Resident Psychiatry 11/08/20 12/23/22 Mary Carmen Rodriguez MD [address] [address] Dermatology 11/09/20 Herber Lopez MD [address] [address] Dermapathology 11/09/20 Yomi Izquierdo DPM [address]342 [facility] [address] [place] [address] Assigned Musculoskeletal Provider 12/04/20 06/08/22 Antonette Castro PA-C [address] [place] [address] 530645 Assigned Gastroenterology Provider 04/09/21 07/08/21 Torey Luna MD [address] 364695 Assigned PCP 04/23/21 03/22/23 Herber Lopez MD [address] [place] [address] Assigned Surgical Provider 07/30/21 11/17/21 Maurilio Carlson MD [address] [place] [address] [phone] Assigned Surgical Provider 11/18/21 11/23/22 Herber Lopez MD [address] [address] Assigned Surgical Provider 11/24/22 12/21/22 Gloria Elizalde MD [address] [place] [address] 177865 Resident 12/24/22 Olena Smith LSW Specialty Artist And Repertoire Manager Commutator V Ring Assembler - Clinical 12/25/22 01/03/23 [place] [address] [place] [address]693 Assigned Surgical Provider 12/22/22 05/17/23 Mamadou Bowie MD [address] [place] [address] 470555 Assigned PCP 03/23/23 Herber Lopez MD [address] [place] [address] 98 [place], [place] 212945 Assigned Surgical Provider 05/18/23 07/25/24 Makenzie Romano MD [address] [place] [address] [phone] director software & Neurology - Child & Adolescent Psychiatry 11/08/23 Shani Stephenson MD [address] [place] [address] 343665 Resident Psychiatry 11/08/23 Yomi Campos, PhD [facility] [address] [address] Assigned Behavioral Health Provider 01/27/24 08/25/24 Ita Newton Specialty Artist And Repertoire Manager 06/04/24 Kenya Jennings MD [address] [place] [address] 195 [place] [address] Plastic Surgery 06/04/24 Herber Lopez MD 420 [facility] 98 [place] [address] Assigned Dermatology Provider 07/26/24 Сергей Dumont [facility] Commutator V Ring Assembler 08/13/24 Kenya Jennings MD 420 [facility] 195 [place] [address] Assigned Surgical Provider 08/26/24 Jesse Arvizu MD 5775 [place] [address] Assigned Behavioral Health Provider 08/26/24 09/24/24 Luis Dudley MD [address] [place], [place] 820424 Assigned Behavioral Health Provider 09/25/24 10/25/24 Carmen Cole PA-C 6363 [facility] [address] [place], [place] 425995 Assigned Sleep Provider 09/25/24 Racheal Ng MD [address] F[address] [place], [place] 380384 Assigned Behavioral Health Provider 10/26/24 documented as of this encounter
--- OUTSIDE RECORDS SUMMARY | 2024-10-28 19:15 | XMS_ITS | Encounter Summary ---
Author Organization [facility] Address [address] [place] [address] Care Team Providers Care Technology Sales Specialist Name Role Phone Cindy Ruiz Unavailable Trevor Espino MD Unavailable [phone] Jaci Whitlock APRN SALES SUPPORT ENGINEER Unavailable + Doris Ricci MD Unavailable Yudy Pompa MD Unavailable [phone] Mary Carmen Rodriguez MD Unavailable + Herber Lopez MD Unavailable [phone] Gloria Elizalde MD Unavailable [phone] Mamadou Bowie MD Primary Care Provider [phone] Mamadou Bowie MD Unavailable Makenzie Romano MD Unavailable [phone] Shani Stephenson MD Unavailable Ita Newton Unavailable Unavailable Kenya Jennings MD Unavailable [phone] Herber Lopez MD Unavailable [phone] Сергей Dumont [facility] Unavailable Unavailable Kenya Jennings MD Unavailable [phone] Jesse Arvizu MD Unavailable Luis Dudley MD Unavailable Carmen Cole PA-C Unavailable [phone] Racheal Ng MD Unavailable [phone] Encounter Details Date Type Department Care Team (Late st Contact Info) Description 09/15/2024 [facility] Stefany Esteban [facility] Plastic and Reconstructive Surgery Clinic [address] 4th [place] [phone] Antonette Ferrari, RN Social History Tobacco Use Types Packs/Day Years [...] relatives? Three times a week 04/02/2024 Attends Anabaptist Services Not on file 04/02 Active Member of Clubs or Organizations Not on f ile 04/02/2024 Attends Club or Organization Meetings Not on jd e 04/02/2024 Marital Status Not on file 04/02/2024 PHQ-2 Answer Date Recorded PHQ-2 Score 3 09/18/2024 [facility] [place] of Occupat ional Health - Occupational Stress [...] in an abandoned building, in an overnight correction, or couch-surfing.) Yes 04/03/2024 Are you worried [...] PM CDT Legal Sex Female 3:58 AM BLOCK ENGRAVER Gender Identity other 11/14/2020 10:33 PM CDT Sexual Orientation Lesbian 06/22/2019 4: 20 AM BLOCK ENGRAVER documented as of this encounter Plan of Treatment Upcoming Encounters Date Type Department Care Team (Latest Contact Info) Description 10/29/2024 11:00 AM CDT [facility] [address] [place] [phone] 11/23/2024 1:30 PM CDT Office Visit [facility] Mental Health & Addiction [address] [phone] Melanie Boykin MD [address] [place] [address] Gloria Elizalde MD [address] [place] [address] 468255 12/03/2024 3:00 PM CDT Office Visit [facility] [address] [facility] [address] [place] [phone] Jesse Arvizu MD 57[address] [place] [address] 12/15/2024 11:40 AM CDT Ancillary Procedure [facility] Imaging Center [facility] Clinic [address] [phone] Yudy Pompa MD [address] [place] [address] 424145 12/22/2024 11:40 AM CDT Oncology Visit [facility] [address] [place] [phone] Yudy Pompa MD [address] [place] [address] [phone] 02/22/2025 12:30 PM CDT Office Visit [facility] Re[facility] Clinic [address] [phone] Kenya Jennings MD [address] [place] [address] 329075 03/12/2025 1:00 PM BLOCK ENGRAVER Office Visit [facility] Internal Medicine [address]th [place] [phone] Mamadou Bowie MD [address] [place] [address] 810405 03/23/2025 8:00 AM BLOCK ENGRAVER Hospital Encounter [facility] PeriOp Services [facility] [place] [place] [phone] Kenya Jennings MD [address] [place] [address] 03/23/2025 8:00 AM BLOCK ENGRAVER - 03/23/2025 12:05 PM BLOCK ENGRAVER Surgery [facility] PeriOp Services [facility] [place] [place] [phone] Kenya Jennings MD [address] [place] [address] [phone] MASTECTOMY, BILATERAL, SIMPLE, NO nipple grafts. OnQ 03/30/2025 10:00 AM BLOCK ENGRAVER Office Visit [facility] [address] [phone] Lynn Parks APRN [address] [address] 04/16/2025 1:00 PM BLOCK ENGRAVER Office Visit [facility] Internal Medicine [address] [phone] Mamadou Bowie MD [address] [place] [address] 05/03/2025 4:00 PM BLOCK ENGRAVER Office Visit [facility] [address] [phone] Kenya Jennings MD [address] [place] [address] 08/17/2025 12:15 PM CDT Office Visit [facility] Dermatology [address] [place] [phone] Herber Lopez MD 420 [facility] 98 [place], [place] 489965 Scheduled Procedures Name Priority Associated Diagnoses Date/Ti me MASTECTOMY, BILATERAL, FOR GENDER AFFIRMATION Gender dysphoria in adult 03/23/2025 8:00 AM BLOCK ENGRAVER documented as of this encounter Goals Goal [...] documented as of this encounter Care Teams Technology Sales Specialist Relationship Specialty Start Date End Date Mamadou Bowie MD [address] [place] [address] PCP - General 03/18/23 Cindy Ruiz [facility] [place] [place] [address] Resident Internal Medicine 12/07/14 Trevor Espino MD [address] [place], [place] 998815 Urology 05/16/16 Jaci Whitlock APRN SALES SUPPORT ENGINEER 420 [facility] 395 [place], [place] 232545 Nurse Practitioner - Women's Health 12/14/16 Doris Ricci MD [facility] [address] [address] Physician Internal Medicine 07/11/20 Yudy Pompa MD [address] [place], [place] 557605 Assigned Cancer Care Provider 08/21/20 Mary Carmen Rodriguez MD [address] [place] [address] 98 [place], [place] 854885 Dermatology 11/09/20 Herber Lopez MD [address] [place] [address] [phone] Dermapathology 11/09/20 Gloria Elizalde MD [address] [place] [address] 874305 Resident 12/24/22 Mamadou Bowie MD [address] [place] [address] 598685 Assigned PCP 03/23/23 Makenzie Romano MD [address] [place] [address] [phone] second grade teacher & Neurology - Child & Adolescent Psychiatry 11/08/23 Shnai Stephenson MD [address] [place] [address] 482565 Resident Psychiatry 11/08/23 Ita Newton Specialty Cuff Setter Lockstitch 06/04/24 Kenya Jennings MD [address] [place] [address] 536015 Plastic Surgery 06/04/24 Herber Lopez MD 420 [facility] 98 [place] [address] Assigned Dermatology Provider 07/26/24 Сергей Dumont, [facility] Picker Feeder 08/13/24 Kenya Jennings MD 420 [facility] 195 [place], [place] 103855 Assigned Surgical Provider 08/26/24 Jesse Arvizu MD 5775 [place], [place] 668706 Assigned Behavioral Health Provider 08/26/24 09/24/24 Luis Dudley MD 240 [place], [place] 144924 Assigned Behavioral Health Provider 09/25/24 10/25/24 Carmen Cole PA-C 6363 [facility] 103 [place], [place] 888515 Assigned Sleep Provider 09/25/24 Racheal Ng MD 2450 [facility] F282 [place], [place] [phone] Assigned Behavioral Health Provider 10/26/24 documented as of this encounter
--- OUTSIDE RECORDS SUMMARY | 2024-10-28 19:15 | XMS_ITS | Encounter Summary ---
Author Organization [facility] Address [address] [place] [address] Care Team Providers Care Nanotechnician Name Role Phone Cindy Ruiz Unavailable Trevor Espino MD Unavailable [phone] Jaci Whitlock APRN SHAREPOINT APPLICATION ARCHITECT Unavailable + Doris Ricci MD Unavailable Yudy Pompa MD Unavailable [phone] Mary Carmen Rodriguez MD Unavailable + Herber Lopez MD Unavailable [phone] Gloria Elizalde MD Unavailable [phone] Mamadou Bowie MD Primary Care Provider [phone] Mamadou Bowie MD Unavailable Makenzie Romano MD Unavailable [phone] Shani Stephenson MD Unavailable Ita Newton Unavailable Unavailable Kenya Jennings MD Unavailable [phone] Herber Lopez MD Unavailable [phone] Сергей Dumont [facility] Unavailable Unavailable Kenya Jennings MD Unavailable [phone] Jesse Arvizu MD Unavailable Luis Dudley MD Unavailable Carmen Cole PA-C Unavailable + [phone] Racheal Ng MD Unavailable [phone] Encounter Details Date Type Department Care Team (Late st Contact Info) Description 09/10/2024 MyC Medical Advice [facility] Plastic and Reconstructive Surgery Clinic [address] 4th [place] [phone] Сергей Dumont, PIPING SUPERVISOR Social History Tobacco Use Types Packs/Day Years [...] relatives? Three times a week 04/02/2024 Attends Buddhism Services Not on file 04/02 Active Member of Clubs or Organizations Not on f ile 04/02/2024 Attends Club or Organization Meetings Not on jd e 04/02/2024 Marital Status Not on file 04/02/2024 PHQ-2 Answer Date Recorded PHQ-2 Score 5 09/14/2024 [facility] [place] of Occupat ional Health - Occupational Stress [...] PM CDT Legal Sex Female 3:58 AM SHEARING SUPERVISOR Gender Identity other 11/14/2020 10:33 PM CDT Sexual Orientation Lesbian 06/22/2019 4: 20 AM SHEARING SUPERVISOR documented as of this encounter Plan of Treatment Upcoming Encounters Date Type Department Care Team (Latest Contact Info) Description 10/29/2024 11:00 AM CDT Virtual [facility] [address] [place] [phone] 11/23/2024 1:30 PM CDT Office Visit [facility] Mental Health & Addiction [address] F[address] [phone] Melanie Boykin MD 1660 [place] [address] Gloria Elizalde MD [address] [place] [address] [phone] 12/03/2024 3:00 PM CDT Office Visit [facility] 5775 [facility] [address] [place] [phone] Jesse Arvizu MD 5775 [place] [address] 12/15/2024 11:40 AM CDT Ancillary Procedure [facility] Imaging Center CT Clinic [address] [phone] Yudy Pompa MD [address] [place] [address] 513565 12/22/2024 11:40 AM CDT Oncology Visit [facility] [address] [place] [phone] Yudy Pompa MD [address] [place] [address] [phone] 02/22/2025 12:30 PM CDT Office Visit [facility] Plastic and Reconstructive Surgery Clinic [address] [phone] Kenya Jennings MD [address] [place] [address] 355635 03/12/2025 1:00 PM SHEARING SUPERVISOR Office Visit [facility] Internal Medicine [address]th [place] [phone] Mamadou Bowie MD [address] [place] [address] 397045 03/23/2025 8:00 AM SHEARING SUPERVISOR Hospital Encounter [facility] PeriOp Services [facility] [place] [phone] Kenya Jennings MD [address] [place] [address] 03/23/2025 8:00 AM SHEARING SUPERVISOR - 03/23/2025 12:05 PM SHEARING SUPERVISOR Surgery [facility] PeriOp Services [facility] [place] [phone] Kenya Jennings MD [address] [place] [address] 825655 MASTECTOMY, BILATERAL, SIMPLE, NO nipple grafts. OnQ 03/30/2025 10:00 AM SHEARING SUPERVISOR Office Visit [facility] Plastic and Reconstructive Surgery Clinic [address] [phone] Lynn Parks APRN [address] [address] 04/16/2025 1:00 PM SHEARING SUPERVISOR Office Visit [facility] Internal Medicine [address] [phone] Mamadou Bowie MD [address] [place] [address] 05/03/2025 4:00 PM SHEARING SUPERVISOR Office Visit [facility] Plastic and Reconstructive Surgery Clinic [address] [phone] Kenya Jennings MD [address] [place] [address] 78[address] 08/17/2025 12:15 PM CDT Office Visit [facility] Dermatology [address]rd [place] [phone] Herber Lopez MD 420 [facility] 98 [place], [place] 9[address]215 Scheduled Procedures Name Priority Associated Diagnoses Date/Ti me MASTECTOMY, BILATERAL, FOR GENDER AFFIRMATION Gender dysphoria in adult 03/23/2025 8:00 AM SHEARING SUPERVISOR documented as of this encounter Visit Diagnoses Not on filedocumented in this encounter Additional Health Concerns Assessment Noted Time PHQ-9 Depression Total Score: 10 025 9:21 AM CDT documented as of this encounter Care Teams Nanotechnician Relationship Specialty Start Date End Date Mamadou Bowie MD [address] [place] [address] [phone] PCP - General 03/18/23 Cindy Ruiz HUNTER PHILIP [facility] [address] Resident Internal Medicine 12/07/14 Trevor Espino MD [address] [place] [address] [phone] Urology 05/16/16 Jaci Whitlock APRN SHAREPOINT APPLICATION ARCHITECT [address] [place] [address] 395 [place], [place] 705895 Nurse Practitioner - Women's Health 12/14/16 Doris Ricci MD [facility] & [address] [address] Physician Internal Medicine 07/11/20 Yudy Pompa MD [address] [place] [address] 187715 Assigned Cancer Care Provider 08/21/20 Mary Carmen Rodriguez MD 420 [facility] 98 [place], [place] 205265 Dermatology 11/09/20 Herber Lopez MD 420 [facility] 98 [place], [place] 008915 Dermapathology 11/09/20 Gloria Elizalde MD [address] [place] [address] 192125 Resident 12/24/22 Mamadou Bowie MD [address] [place] [address] [phone] Assigned PCP 03/23/23 Makenzie Romano MD [address] [place] [address] 600854 compress trucker & Neurology - Child & Adolescent Psychiatry 11/08/23 Shani Stephenson MD 420 [place], [place] 891385 Resident Psychiatry 11/08/23 Ita Newton Specialty Pin Inserter 06/04/24 Kenya Jennings MD [address] [address] Plastic Surgery 06/04/24 Herber Lopez MD 420 [facility] 98 [place] [address] Assigned Dermatology Provider 07/26/24 Сергей Dumont, [facility] Machine Packer 08/13/24 Kenya Jennings MD [address] [place] [address] [facility] 195 [place], [place] 692045 Assigned Surgical Provider 08/26/24 Jesse Arvizu MD 5775 [place], [place] 375786 Assigned Behavioral Health Provider 08/26/24 09/24/24 Luis Dudley MD 240 [place], [place] 510894 Assigned Behavioral Health Provider 09/25/24 10/25/24 Carmen Cole PA-C 6363 [facility] 103 [place], [place] 194045 Assigned Sleep Provider 09/25/24 Racheal Ng MD 2450 [facility] [address] [place] [address] Assigned Behavioral Health Provider 10/26/24 documented as of this encounter
--- OUTSIDE RECORDS SUMMARY | 2024-10-28 19:15 | XMS_ITS | Clinical Summary ---
Author Organization [facility] Address [address], [place] [address] Care Team Providers Care Transfer Table Operator Name Role Phone Unassigned, Provider Primary Care [...] for each transition of care or referral. Ancera Allergies Active Allergy Reactions Criticality Noted Date Comments Sulfa Antibiotics Rash 08/31/2014 Medications [place]-3 Fatty Acids (FISH OIL OR) 2 times daily Active buPROPion (WELLBUTRIN XL) 300 MG 24 hour release tablet Take 300 mg by mouth. 02/18/2017 Active Multiple Vitamins-Mineral s (MULTIVITAL OR) Take 1 Cap by mouth. Active prazosin (MINIPRESS) 1 MG capsule Take 2 mg by mouth. 02/18/2017 Active venlafaxine (EFFEXORXR) 37.5 MG 24 hour release capsule Take once daily 02/18/2017 Active Active Problems Problem Noted Date Diagnosed Date BCNS (basal cell nevus syndrome) 03/15/2017 Social History Tobacco Use Types Packs/Day Years Used Date Smoking Tobacco: Never Assessed Comments Unknown Sex and Gender Information Value Date Recorded Sex Assigned at Not on file Legal Sex Female 5:18 AM CDT Gender Identity Not on file Sexual Orientation Not on file Plan of Treatment Health Maintenance Due Date Last Done Comments Cervical Cancer Screening Due 1964 Colon Cancer Screening Plan Due 1964 Hep C Screening (Preventive Services) 1964 Mammogram 1964 HIV Screening (Preventive Services) 1980 Adult Preventive Visit 1982 DTaP/Tdap/Td Vaccine (1 - Tdap) 1983 Cholesterol 2009 Pneumococcal Vaccine 50+ Yrs (1 of 1 - PCV) 2014 Zoster/Shingles Vaccine (1 of 2) 2014 COVID-19 Vaccine ( - 2023-2 5 season) 2024 Influenza Vaccine (Season Ended) 2025 RSV Vaccine (1 - 1-dose 75+ series) 2039 HepA Vaccine Aged Out No longer eligi ble based on patient's age to complete this topic HepB Vaccine Aged Out No longer eligi ble based on patient's age to complete this topic Hib Vaccine Aged Out No longer eligi ble based on patient's age to complete this topic IPV (Polio) Vaccine Aged Out No longe r eligible based on patient's age to complete this topic MCV4 Vaccine Aged Out No longer eligi ble based on patient's age to complete this topic Meningococcal B Vaccine Aged Out No l onger eligible based on patient's age to complete this topic Care Teams Transfer Table Operator Relationship Specialty Start Date End Date Unassigned, Provider [address] [place] [address] PCP - General 06/10/01
--- OUTSIDE RECORDS SUMMARY | 2024-10-28 19:15 | XMS_ITS | Encounter Summary ---
Author Organization [facility] Address [address] [place] [address] 22711 Care Team Providers Care Qa Specialist Name Role Phone Cindy Ruiz Unavailable [phone] Trevor Espino MD Unavailable [phone] Melanie Boykin MD Unavailable +[phone] Jaci Whitlock APRN SKATE SHOP ATTENDANT Unavailable + Juan M Smith MD, Madhuri Unavailable Doris Ricci MD Unavailable Yudy Pompa MD Unavailable +[phone] Jessi Mcfadden MD Unavailable + [phone] Mary Carmen Rodriguez MD Unavailable + Herber Lopez MD Unavailable +[phone] Yomi Izquierdo DPM Unavailable +[phone] Torey Luna MD Primary Care Provider Torey Luna MD Unavailable Herber Lopez MD Unavailable +[phone] Maurilio Carlson MD Unavailable Herber Lopez MD Unavailable +[phone] Gloria Elizalde MD Unavailable [phone] Olena Smith Unavailable Unavailable Maurilio Carlson MD Unavailable Mamadou Bowie MD Primary Care Provider [phone] Mamadou Bowie MD Unavailable Herber Lopez MD Unavailable +[phone] Makenzie Romano MD Unavailable +[phone] Shani Stephenson MD Unavailable +[phone] Yomi Campos PhD Unavailable +[phone] Ita Newton Unavailable Unavailable Kenya Jennings MD Unavailable +[phone] Herber Lopez MD Unavailable +[phone] Сергей Dumont [facility] Unavailable Unavailable Kenya Jennings MD Unavailable +[phone] Jesse Arvizu MD Unavailable Luis Dudley MD Unavailable +[phone] Carmen Cole PA-C Unavailable +[phone] Racheal Ng MD Unavailable +[phone] Encounter Details Date Type Department Care Team (Late st Contact Info) Description 07/12/2021 [facility] Mental Health & Addiction [place] [id number] [address] [address] Jessi Mcfadden MD 2450 [facility]. F282/2A [place] [address] Social History Tobacco Use Types [...] PM CDT Legal Sex Female 3:58 AM COPYRIGHT MANAGER Gender Identity other 11/14/2020 10:33 PM CDT Sexual Orientation Lesbian 06/22/2019 4: 20 AM COPYRIGHT MANAGER COVID-19 Exposure Response Date Recorded In the last month, have you been in contact with someone who was confirmed or suspected to have Coronavirus / COVID-19? No / Unsure 07/13/2021 9:56 AM COPYRIGHT MANAGER documented as of this encounter Plan of Treatment Upcoming Encounters Date Type Department Care Team (Latest Contact Info) Description 10/29/2024 11:00 AM CDT [facility] [address] [phone] 11/23/2024 1:30 PM CDT Office Visit [facility] Mental Health & Addiction [place] [id number] [address] [place] [phone] Melanie Boykin MD [address] [place] [address] 818854 Gloria Elizalde MD [address] [place] [address] 150275 12/03/2024 3:00 PM CDT Office [facility] Psychiatry [facility] [address] [place] [phone] Jesse Arvizu MD [address] [place] [address] 23870 12/15/2024 11:40 AM CDT Ancillary Procedure [facility] [address] 1st [place] [phone] Yudy Pompa MD [address] [place] [address] 538085 12/22/2024 11:40 AM CDT Oncology Visit [facility] [address] [place] [address] [phone] Yudy Pompa MD [address] [place] [address] 38784 02/22/2025 12:30 PM CDT Office Visit [facility] [address] [phone] Kenya Jennings MD [address] [place] [address] 470[address] 03/12/2025 1:00 PM COPYRIGHT MANAGER Office Visit [facility] Internal Medicine [address] [phone] Mamadou Bowie MD [address] [place] [address] [phone] 03/23/2025 8:00 AM COPYRIGHT MANAGER Hospital Encounter [facility] [address] [address] [phone] Kenya Jennings MD [address] [place] [address] 839685 03/23/2025 8:00 AM COPYRIGHT MANAGER - 03/23/2025 12:05 PM COPYRIGHT MANAGER Surgery [facility] [address] [place] [phone] Kenya Jennings MD [address] [place] [address] 904345 MASTECTOMY, BILATERAL, SIMPLE, NO nipple grafts. OnQ 03/30/2025 10:00 AM COPYRIGHT MANAGER Office Visit [facility] [address] [phone] Lynn Parks APRN [address] [address] 04/16/2025 1:00 PM COPYRIGHT MANAGER Office Visit [facility] Internal Medicine [address] [place] [phone] Mamadou Bowie MD [address] [place] [address] 64[address] 05/03/2025 4:00 PM COPYRIGHT MANAGER Office Visit [facility] [address] [place] [phone] Kenya Jennings MD [address] [place] [address] 195 [place], [place] 088985 08/17/2025 12:15 PM CDT Office Visit [facility] Dermatology Clinic [address] [place] [phone] Herber Lopez MD [address] [place] [address] 98 [place] [address] Scheduled Procedures Name Priority Associated Diagnoses Date/Ti me MASTECTOMY, BILATERAL, FOR GENDER AFFIRMATION Gender dysphoria in adult 03/23/2025 8:00 AM COPYRIGHT MANAGER documented as of this encounter Visit Diagnoses Not on filedocumented in this encounter Additional Health Concerns Assessment Noted Time PHQ-9 Depression Total Score: 2 10/29/19 9:05 AM CDT documented as of this encounter Care Teams Qa Specialist Relationship Specialty Start Date End Date Torey Luna MD [address] [place] [address] 846[address] PCP - General Internal Medicine 04/19/21 03/17/23 Mamadou Bowie MD [address] [place] [address] 60696 PCP - General 03/18/[address] Ru[address] [place], [place] 664460 Resident Internal Medicine 12/07/14 Trevor Espino MD [address] [place] [address] 522105 Urology 05/16/16 Melanie Boykin MD [address] [place] [address] [phone] help desk engineer 12/10/16 11/07/23 Jaci Whitlock APRN SKATE SHOP ATTENDANT [address] [place] [address] 970725 Nurse Practitioner - Women's Health 12/14/16 Shanelle Mcgowan MD [address] [place] [address] 332955 Assigned Surgical Provider 02/26/20 07/29/21 Doris Ricci MD [facility] [address] [address] Physician Internal Medicine 07/11/20 Yudy Pompa MD [address] [place] [address] [phone] Assigned Cancer Care Provider 08/21/20 Jessi Mcfadden MD [address] [place] [address] F282/2A [place], [place] [phone] Resident Psychiatry 11/08/20 12/23/22 Mary Carmen Rodriguez MD [address] [phone] MD Dermatology 11/09/20 Herber Lopez MD [address] [place] [address] 735335 Dermapathology 11/09/20 Yomi Izquierdo DPM [address] [facility] [address] [place], [place] [phone] Assigned Musculoskeletal Provider 12/04/20 06/08/22 Torey Luna MD [address] [place] [address] [phone] Assigned PCP 04/23/21 03/22/23 Herber Lopez MD [address] [place] [address] [phone] Assigned Surgical Provider 07/30/21 11/17/21 Maurilio Carlson MD 9 [place], [place] [phone] Assigned Surgical Provider 11/18/21 11/23/22 Herber Lopez MD [address] [place] [address] [phone] Assigned Surgical Provider 11/24/22 12/21/22 Gloria Elizalde MD [address] [place] [address] 178225 Resident 8/21/23 Olena Smith LSW Specialty Welder Setter Resistance Machine Correction Worker - Clinical 12/25/22 01/03/23 [place] [address] [place] [address] 52908 Assigned Surgical Provider 12/22/22 05/17/23 Mamadou Bowie MD [address] [place] [address] 20442 Assigned PCP 03/23/23 Herber Lopez MD [address] [place] [address] 08806 Assigned Surgical Provider 05/18/23 07/25/24 Makenzie Romano MD [address] [place] [address] 99903 help desk engineer & Neurology - Child & Adolescent Psychiatry 11/08/23 Shani Stephenson MD [address] [place] [address] 107385 Resident Psychiatry 11/08/23 Yomi Campos, PhD [address] [place] [address] [phone] Assigned Behavioral Health Provider 01/27/24 08/25/24 Ita Newton Specialty Welder Setter Resistance Machine 06/04/24 Kenya Jennings MD [address] [place] [address] [phone] Plastic Surgery 06/04/24 Herber Lopez MD [address] [place] [address] 79990 Assigned Dermatology Provider 07/26/24 Сергей Dumont, [facility] Correction Worker 08/13/24 Kenya Jennings MD 420 [facility] 195 [place], [place] 120495 Assigned Surgical Provider 08/26/24 Jesse Arvizu MD 5775 [place] [address] Assigned Behavioral Health Provider 08/26/24 09/24/24 Luis Dudley MD 240 [place], [place] 881804 Assigned Behavioral Health Provider 09/25/24 10/25/24 Carmen Cole PA-C 6363 [facility] 103 [place], [place] 849955 Assigned Sleep Provider 09/25/24 Racheal Ng MD 2450 [facility] F282 [place], [place] [phone] Assigned Behavioral Health Provider 10/26/24 documented as of this encounter
--- OUTSIDE RECORDS SUMMARY | 2024-10-28 19:15 | XMS_ITS | Encounter Summary ---
Author Organization [facility] Address [address] [place] [address] 55[address] Care Team Providers Care Breading Machine Tender Name Role Phone RichielelaCindy Unavailable +[phone] Kaitlin [place] MD Unavailable +[phone] Trevor Espino MD Unavailable [phone] Melanie Boykin MD Unavailable +[phone] Jaci Whitlock AUTOMOBILE BUMPER STRAIGHTENER BEAUTY ADVISOR Unavailable + Yudy Mathews MD Primary Care Provider [phone] Yudy Mathews MD Unavailable +[phone] Jaci Whitlock AUTOMOBILE BUMPER STRAIGHTENER BEAUTY ADVISOR Unavailable + Juan M Smith MD, Madhuri Unavailable +[phone] Doris Ricci MD Unavailable +[phone] Yudy Mathews MD Unavailable +[phone] Antonette Castro PA-C Unavailable +[phone] Yudy Pompa MD Unavailable [phone] Jessi Mcfadden MD Unavailable + [phone] Mary Carmen Rodriguez MD Unavailable + Herber Lopez MD Unavailable +[phone] Yomi Izquierdo DPM Unavailable +[phone] Torey Luna MD Primary Care Provider + [phone] Antonette Castro-C Unavailable +[phone] Torey Luna MD Unavailable +[phone] Herber Lopez MD Unavailable +[phone] Maurilio Carlson MD Unavailable Herber Lopez MD Unavailable +[phone] Gloria Elizalde MD Unavailable +[phone] Olena Smith [facility] Unavailable Unavailable Maurilio Carlson MD Unavailable Mamadou Bowie MD Primary Care Provider +[phone] AzebMamadou menchaca MD Unavailable Herber Lopez MD Unavailable +[phone] Makenzie Romano MD Unavailable +[phone] Shani Stephenson MD Unavailable [phone] Yomi Campos PhD Unavailable +[phone] Ita Newton Unavailable Unavailable Kenya Jennings MD Unavailable + [phone] Herber Lopez MD Unavailable +[phone] Сергей Dumont [facility] Unavailable Unavailable Kenya Jennings MD Unavailable + [phone] Jesse Arvizu MD Unavailable Luis Dudley MD Unavailable +[phone] Carmen Cole-C Unavailable +[phone] Racheal Ng MD Unavailable [phone] Encounter Details Date Type Department Care Team (Late st Contact Info) Description 05/26/2020 [facility] Mental Health & Addiction Services [address] [facility] [address] [place] [address] Kimberley [place], [facility] 2450 [place] [address] Social History Tobacco Use Types Packs/Day Years Used Date Smoking Tobacco: Never Smokeless Tobacco: Never Alcohol Use Standard Drinks/Week Comments No 0 (1 standard drink = 0.6 oz pur e alcohol) PHQ-2 Answer Date Recorded PHQ-2 Score 3 03/11/2020 Comments No Sex and Gender Information Value Date Recorded Sex Assigned at Female 11/14/2020 10:33 PM CDT Legal Sex Female 3:58 AM FINISHING AND SHIPPING SUPERVISOR Gender Identity other 11/14/2020 10:33 PM CDT Sexual Orientation Lesbian 06/22/2019 4: 20 AM FINISHING AND SHIPPING SUPERVISOR COVID-19 Exposure Response Date Recorded In the last month, have you been in contact with someone who was confirmed or suspected to have Coronavirus / COVID-19? No / Unsure 05/12/2020 10:42 AM FINISHING AND SHIPPING SUPERVISOR documented as of this encounter Plan of Treatment Upcoming Encounters Date Type Department Care Team (Latest Contact Info) Description 10/29/2024 11:00 AM CDT Virtual Visit [facility] [address] [place] [address] [place] [address] [phone] 11/23/2024 1:30 PM CDT Office Visit [facility] Mental Health & Addiction [address] [phone] Melanie Boykin MD [address] [place] [address] [phone] Gloria Elizalde MD [address] [place] [address] 354545 12/03/2024 3:00 PM CDT Office Visit [email or web address] Psychiatry [facility] [address] [place] [address] [place] [address] [phone] Jesse Arvizu MD [address] [place] [address] 59[address] 12/15/2024 11:40 AM CDT Ancillary Procedure [facility] Imaging [address] [place] [phone] Yudy Pompa MD [address] [place] [address] 384205 12/22/2024 11:40 AM CDT [facility] [address] [place] [address] [phone] Yudy Pompa MD [address] [place] [address] 28258 02/22/2025 12:30 PM CDT Office Visit [facility] Plastic and Reconstructive Surgery Clinic [address] [place] [phone] Kenya Jennings MD [address] [place] [address] 472205 03/12/2025 1:00 PM FINISHING AND SHIPPING SUPERVISOR Office Visit [facility] Internal Medicine [address] [place] [phone] Mamadou Bowie MD [address] [address] 54614 03/23/2025 8:00 AM FINISHING AND SHIPPING SUPERVISOR Hospital Encounter [facility] [address] [place] [address] [place] [phone] Kenya Jennings MD [address] [place] [address] 681725 03/23/2025 8:00 AM FINISHING AND SHIPPING SUPERVISOR - 03/23/2025 12:05 PM FINISHING AND SHIPPING SUPERVISOR Surgery [facility] [address] [place] [address] [place] [phone] Kenya Jennings MD [address] [place] [address] 40692 MASTECTOMY, BILATERAL, SIMPLE, NO nipple grafts. OnQ 03/30/2025 10:00 AM FINISHING AND SHIPPING SUPERVISOR Office Visit [facility] Plastic and Reconstructive Surgery Clinic [address] [place] [phone] Lynn Parks APRN [address] [address] 04/16/2025 1:00 PM FINISHING AND SHIPPING SUPERVISOR Office Visit [facility] Internal Medicine [address] [place] [phone] Mamadou Bowie MD [address] [address] 161005 05/03/2025 4:00 PM FINISHING AND SHIPPING SUPERVISOR Office Visit [facility] Plastic and Reconstructive Surgery Clinic [address] [phone] Kenya Jennings MD [address] [place] [address] 195 [place], [place] 940505 08/17/2025 12:15 PM CDT Office Visit [facility] Dermatology Clinic [address] [place] [phone] Herber Lopez MD 420 [facility] 98 [place], [place] 952925 Scheduled Procedures Name Priority Associated Diagnoses Date/Ti me MASTECTOMY, BILATERAL, FOR GENDER AFFIRMATION Gender dysphoria in adult 03/23/2025 8:00 AM FINISHING AND SHIPPING SUPERVISOR documented as of this encounter Visit Diagnoses Not on filedocumented in this encounter Additional Health Concerns Assessment Noted Time PHQ-9 Depression Total Score: 8 03/11/20 20 4:01 PM FINISHING AND SHIPPING SUPERVISOR documented as of this encounter Care Teams Breading Machine Tender Relationship Specialty Start Date End Date Yudy Mathews MD [address] [place] [address] 395 [place] [address] PCP - General Internal Medicine 10/17/18 04/18/21 Torey Luna MD [address] [place] [address] 07786 PCP - General Internal Medicine 04/19/21 03/17/23 Mamadou Bowie MD [address] [address] 73714 PCP - General 03/18/23 Cindy Ruiz [address] [place], [place] 316960 Resident Internal Medicine 12/07/14 Kaitlin [place] MD [address] [place] [address] 47138 lpn medical assistant 01/02/16 10/17/20 Trevor Espino MD [address] [place] [address] 36302 Urology 05/16/16 Melanie Boykin MD [address] [place] [address] 63696 lpn medical assistant 12/10/16 11/07/23 Jaci Whitlock APRN BEAUTY ADVISOR [address] [place] [address] 38719 Nurse Practitioner - Women's Health 12/14/16 [place] [address] Assigned PCP 09/24/19 07/24/20 Jaci Whitlock APRN CNP [address] [place] [address] 395 [place] [address] Assigned OBGYN Provider 02/26/20 Shanelle Mcgowan MD [address] [place] [address] 58462 Assigned Surgical Provider 02/26/20 07/29/21 Doris Ricci MD [address] [address] Physician Internal Medicine 07/11/20 [place] [address] Assigned PCP 07/25/20 04/22/21 Antonette Castro PA-C [address] [place] [address] 69882 Assigned Heart and Vascular Provider 07/20/20 04/08/21 Yudy Pompa MD [address] [place] [address] [phone] Assigned Cancer Care Provider 08/21/20 Jessi Mcfadden MD [address] [place] [address] F282/2A [place], [place] 580294 Resident Psychiatry 11/08/20 12/23/22 Mary Carmen Rodriguez MD [address] [address] Dermatology 11/09/20 Herber Lopez MD [address] [address] Dermapathology 11/09/20 Yomi Izquierdo DPM [address] [facility] [address] [place] [address] Assigned Musculoskeletal Provider 12/04/20 06/08/22 Antonette Castro PA-C [address] [place] [address] 959365 Assigned Gastroenterology Provider 04/09/21 07/08/21 Torey Luna MD [address] 441025 Assigned PCP 04/23/21 03/22/23 Herber Lopez MD [address] [place] [address] 63623 Assigned Surgical Provider 07/30/21 11/17/21 Maurilio Carlson MD [address] [place] [address] 230885 Assigned Surgical Provider 11/18/21 11/23/22 Herber Lopez MD [address] [place] [address] 72778 Assigned Surgical Provider 11/24/22 12/21/22 Gloria Elizalde MD [address] [place] [address] 54999 Resident 12/24/22 Olena Smith LSW Specialty Manufacturing Project Engineer Agricultural Education Teacher - Clinical 12/25/22 01/03/23 [place] [address] [place] [address] 73910 Assigned Surgical Provider 12/22/22 05/17/23 Mamadou Bowie MD [address] [place] [address] 943615 Assigned PCP 03/23/23 Herber Lopez MD [address] [place] [address] 98 [place], [place] 659735 Assigned Surgical Provider 05/18/23 07/25/24 Makenzie Romano MD [address] [place] [address] 190584 lpn medical assistant & Neurology - Child & Adolescent Psychiatry 11/08/23 Shani Stephenson MD [address] [place] [address] 524035 Resident Psychiatry 11/08/23 Yomi Campos, PhD [address] [place] [address] 55454 Assigned Behavioral Health Provider 01/27/24 08/25/24 Ita Newton Specialty Manufacturing Project Engineer 06/04/24 Kenya Jennings MD [address] [place] [address] 195 [place], [place] 838715 Plastic Surgery 06/04/24 Herber Lopez MD 420 [facility] 98 [place] [address] Assigned Dermatology Provider 07/26/24 Сергей Dumont [facility] Agricultural Education Teacher 08/13/24 Kenya Jennings MD 420 [facility] 195 [place] [address] Assigned Surgical Provider 08/26/24 Jesse Arvizu MD 5775 [place] [address] Assigned Behavioral Health Provider 08/26/24 09/24/24 Luis Dudley MD [address] [place], [place] 286344 Assigned Behavioral Health Provider 09/25/24 10/25/24 Carmen Cole PA-C 6363 [facility] 103 [place], [place] 317445 Assigned Sleep Provider 09/25/24 Racheal Ng MD 2450 [facility]82 [place], [place] 777284 Assigned Behavioral Health Provider 10/26/24 documented as of this encounter
--- OUTSIDE RECORDS SUMMARY | 2024-10-28 19:15 | XMS_ITS | Encounter Summary ---
Author Organization [place] Address [address] [place] [address] 60[address] Care Team Providers Care Apprenticeship Consultant Name Role Phone MaryjudsonCindy Unavailable Trevor Espino MD Unavailable [phone] Melanie Boykin MD Unavailable [phone] Jaci Whitlock APRN FURNITURE FINISHER Unavailable + Doris Ricci MD Unavailable Yudy Pompa MD Unavailable [phone] Mary Carmen Rodriguez MD Unavailable + Herber Lopez MD Unavailable +[phone] Gloria Elizalde MD Unavailable [phone] Maurilio Carlson MD Unavailable Mamadou Bowie MD Primary Care Provider [phone] Mamadou Bowie MD Unavailable Herber Lopez MD Unavailable +[phone] Makenzie Romano MD Unavailable [phone] Shani Stephenson MD Unavailable [phone] Yomi Campos PhD Unavailable +[phone] Ita eNwton Unavailable Unavailable Kenya Jennings MD Unavailable Herber Lopez MD Unavailable [phone] Сергей Dumont [facility] Unavailable Unavailable Kenya Jennings MD Unavailable +[phone] Jesse Arvizu MD Unavailable Luis [place] MD Unavailable [phone] Carmen Cole PA-C Unavailable +[phone] Racheal Ng MD Unavailable +[phone] Encounter Details Date Type Department Care Team (Late st Contact Info) Description 04/23/2023 [facility] [place] [facility] [place] [id number] [address] Yoselin Fowler Social History Tobacco Use Types Packs/Day Years [...] an overnight skilled nursing, or couch-surfing.) Yes 03/18/2023 Are you worried [...] PM CDT Legal Sex Female 3:58 AM LMFT Gender Identity other 11/14/2020 10:33 PM CDT Sexual Orientation Lesbian 06/22/2019 4: 20 AM LMFT documented as of this encounter Plan of Treatment Upcoming Encounters Date Type Department Care Team (Latest Contact Info) Description 10/29/2024 11:00 AM CDT Virtual Visit [facility] [address] [place] [phone] 11/23/2024 1:30 PM CDT Office Visit [facility] Addiction [address] [phone] Melanie Boykin MD [address] [place] [address] [phone] Gloria Elizalde MD [address] [place] [address] 377745 12/03/2024 3:00 PM CDT Office Visit [facility] [address] [place] [phone] Jesse Arvizu MD [address] [place] [address] 533026 12/15/2024 11:40 AM CDT Ancillary Procedure [facility] [address] [phone] Yudy Pompa MD [address] [place] [address] 12/22/2024 11:40 AM CDT [facility] [address] [place] [address] [phone] Yudy Pompa MD [address] [place] [address] 02/22/2025 12:30 PM CDT Office Visit [facility] Plastic and Reconstructive Surgery Clinic [address] [place] [phone] Kenya Jennings MD [address] [place] [address] 03/12/2025 1:00 PM LMFT Office Visit [facility] Internal Medicine [address] [phone] Mamadou Bowie MD [address] [place] [address] 03/23/2025 8:00 AM LMFT Hospital Encounter [facility] [address] [place], [place] [address] [place] [phone] Kenya Jennings MD [address] [place] [address] 03/23/2025 8:00 AM LMFT - 03/23/2025 12:05 PM LMFT Surgery [facility] [address] [place] [address] [place] [phone] Kenya Jennings MD [address] [place] [address] 82692 MASTECTOMY, BILATERAL, SIMPLE, NO nipple grafts. OnQ 03/30/2025 10:00 AM LMFT Office Visit [facility] [address] [phone] Lynn Parks APRN [address] [phone] 04/16/2025 1:00 PM LMFT Office Visit [facility] Internal Medicine [address] [phone] Mamadou Bowie MD [address] [place] [address] 162455 05/03/2025 4:00 PM LMFT Office Visit [facility] [address] [phone] Kenya Jennings MD [address] [place] [address] 195 [place], [place] 113275 08/17/2025 12:15 PM CDT Office Visit [facility] Dermatology Clinic [address] [phone] Herber Lopez MD [address] [place] [address] 98 [place], [place] 228075 Scheduled Procedures Name Priority Associated Diagnoses Date/Ti me MASTECTOMY, BILATERAL, FOR GENDER AFFIRMATION Gender dysphoria in adult 03/23/2025 8:00 AM LMFT documented as of this encounter Visit Diagnoses Not on filedocumented in this encounter Additional Health Concerns Assessment Noted Time PHQ-9 Depression Total Score: 6 04/21/20 23 6:42 PM LMFT documented as of this encounter Care Teams Apprenticeship Consultant Relationship Specialty Start Date End Date Mamadou Bowie MD [address] [place] [address] 78766 PCP - General 03/18/23 Cindy Ru[place] [address] [place] [address] Resident Internal Medicine 12/07/14 Trevor Espino MD [address] [place] [address] Urology 05/16/16 Melanie Boykin MD [address] [place] [address] 862104 electric motor and generator assembler 12/10/16 11/07/23 Jaci Whitlock APRN [facility] [address] [place] [address] 757575 Nurse Practitioner - Women's Health 12/14/16 Doris Ricci MD [facility] & [address] [address] Physician Internal Medicine 07/11/20 Yudy Pompa MD [address] [place] [address] Assigned Cancer Care Provider 08/21/20 Mary Carmen Rodriguez MD [address] 467115 Dermatology 11/09/20 Herber Lopez MD [address] 564615 Dermapathology 11/09/20 Gloria Elizalde MD [address] [place] [address] 467115 Resident 12/24/22 [place] [address] [place], [place] 711019 Assigned Surgical Provider 12/22/22 05/17/23 Mamadou Bowie MD [address] [place] [address] Assigned PCP 03/23/23 Herber Lopez MD [address] [place] [address] 98 [place], [place] 476285 Assigned Surgical Provider 05/18/23 07/25/24 Makenzie Romano MD [address] [address] electric motor and generator assembler & Neurology - Child & Adolescent Psychiatry 11/08/23 Shani Stephenson MD [address] [place] [address] Resident Psychiatry 11/08/23 Yomi Campos, PhD [address] [address] Assigned Behavioral Health Provider 01/27/24 08/25/24 Ita [place] Specialty Graphic Artist 06/04/24 Kenya Jennings MD [address] [place] [address] 195 [place] [address] Plastic Surgery 06/04/24 Herber Lopez MD 420 [facility] 98 [place], [place] 916805 Assigned Dermatology Provider 07/26/24 Сергей Dumont, [facility] Paper Twister 08/13/24 Kenya Jennings MD 420 [facility] 195 [place], [place] 048815 Assigned Surgical Provider 08/26/24 Jesse Arvizu MD 5775 [place], [place] 196626 Assigned Behavioral Health Provider 08/26/24 09/24/24 Luis Dudley MD 240 [place], [place] 172684 Assigned Behavioral Health Provider 09/25/24 10/25/24 Carmen Cole PA-C 6363 [facility] 103 [place], [place] 368215 Assigned Sleep Provider 09/25/24 Racheal Ng MD [address] [place] [phone] [place], [place] [phone] Assigned Behavioral Health Provider 10/26/24 documented as of this encounter
--- OUTSIDE RECORDS SUMMARY | 2024-10-28 19:15 | XMS_ITS | Encounter Summary ---
Author Organization [place] Address [address] [place] [address] Care Team Providers Care Stock Letterer Name Role Phone Cindy Ruiz Unavailable [phone] Trevor Espino MD Unavailable [phone] Melanie Boykin MD Unavailable [phone] Jaci Whitlock APRN TAILING MACHINE OPERATOR Unavailable + Juan M Smith MD, Madhuri Unavailable [phone] Doris Ricci MD Unavailable Yudy Pompa MD Unavailable [phone] Jessi Mcfadden MD Unavailable + [phone] Mary Carmen Rodriguez MD Unavailable + Herber Lopez MD Unavailable [phone] Yomi Izquierdo DPM Unavailable [phone] Torey Luna MD Primary Care Provider Torey Luna MD Unavailable [phone] Herber Lopez MD Unavailable [phone] Maurilio Carlson MD Unavailable Herber Lopez MD Unavailable [phone] Gloria Elizalde MD Unavailable [phone] Olena Smith Unavailable Unavailable Maurilio Carlson MD Unavailable Mamadou Bowie MD Primary Care Provider [phone] Mamadou Bowie MD Unavailable Herber Lopez MD Unavailable [phone] Makenzie Romano MD Unavailable [phone] Shani Stephenson MD Unavailable [phone] Yomi Campos PhD Unavailable +[phone] Ita [place] Unavailable Unavailable Kenya Jennings MD Unavailable [phone] Herber Lopez MD Unavailable +[phone] Сергей Dumont [facility] Unavailable Unavailable Kenya Jennings MD Unavailable [phone] Jesse Arvizu MD Unavailable Luis [place] MD Unavailable [phone] Carmen Cole PA-C Unavailable +[phone] Racheal Ng MD Unavailable [phone] Encounter Details Date Type Department Care Team (Late st Contact Info) Description 07/11/2021 [facility] [place] Medical Advice [facility] Mental Health & Addiction [place] [id number] [address] Jessi Mcfadden MD 2450 [facility]. F282[address]2A [place] [address] Social History Tobacco Use Types [...] PM CDT Legal Sex Female 3:58 AM SNOWMOBILE MECHANIC Gender Identity other 11/14/2020 10:33 PM CDT Sexual Orientation Lesbian 06/22/2019 4: 20 AM SNOWMOBILE MECHANIC COVID-19 Exposure Response Date Recorded In the last month, have you been in contact with someone who was confirmed or suspected to have Coronavirus / COVID-19? No / Unsure 07/13/2021 9:56 AM SNOWMOBILE MECHANIC documented as of this encounter Plan of Treatment Upcoming Encounters Date Type Department Care Team (Latest Contact Info) Description 10/29/2024 11:00 AM CDT Virtual Visit [facility] [address] [phone] 11/23/2024 1:30 PM CDT Office Visit [facility] Addiction [place] [phone] [address] [place] [phone] Melanie Boykin MD [address] [place] [address] 950574 Gloria Elizalde MD [address] [place] [address] 656255 12/03/2024 3:00 PM CDT Office Visit [facility] Psych[facility]ry [facility] [address] [place] [phone] Jesse Arvizu MD [address] [place] [address] 28[address] 12/15/2024 11:40 AM CDT Ancillary Procedure [facility] [address] [place] [phone] Yudy Pompa MD [address] [place] [address] 153025 12/22/2024 11:40 AM CDT Oncology Visit [facility] [address] [place] [address] [phone] Yudy Pompa MD [address] [place] [address] 82085 02/22/2025 12:30 PM CDT Office Visit [facility] [address] [phone] Kenya Jennings MD [address] [place] [address] 25570 03/12/2025 1:00 PM SNOWMOBILE MECHANIC Office Visit [facility] Internal Medicine [address] [phone] Mamadou Bowie MD [address] [place] [address] 149005 03/23/2025 8:00 AM SNOWMOBILE MECHANIC Hospital Encounter [facility] PeriOp Services [address] [place] [address] [phone] Kenya Jennings MD [address] [place] [address] 859845 03/23/2025 8:00 AM SNOWMOBILE MECHANIC - 03/23/2025 12:05 PM SNOWMOBILE MECHANIC Surgery [facility] [address] [place] [phone] Kenya Jennings MD [address] [place] [address] 385015 MASTECTOMY, BILATERAL, SIMPLE, NO nipple grafts. OnQ 03/30/2025 10:00 AM SNOWMOBILE MECHANIC Office Visit [facility] [address] [phone] Lynn Parks APRN [address] [address] 04/16/2025 1:00 PM SNOWMOBILE MECHANIC Office Visit [facility] Internal Medicine [address] [place] [phone] Mamadou Bowie MD [address] [place] [address] 9[address] 05/03/2025 4:00 PM SNOWMOBILE MECHANIC Office Visit [facility] [address] [place] [phone] Kenya Jennings MD [address] [place] [address] 195 [place], [place] 650335 08/17/2025 12:15 PM CDT Office Visit [facility] D[facility] [address] [place] [phone] Herber Lopez MD [address] [place] [address] 98 [place] [address] Scheduled Procedures Name Priority Associated Diagnoses Date/Ti me MASTECTOMY, BILATERAL, FOR GENDER AFFIRMATION Gender dysphoria in adult 03/23/2025 8:00 AM SNOWMOBILE MECHANIC documented as of this encounter Visit Diagnoses Not on filedocumented in this encounter Additional Health Concerns Assessment Noted Time PHQ-9 Depression Total Score: 2 10/29/19 9:05 AM CDT documented as of this encounter Care Teams Stock Letterer Relationship Specialty Start Date End Date Torey Luna MD [address] [place] [address] 27828 PCP - General Internal Medicine 04/19/21 03/17/23 Mamadou Bowie MD [address] [place] [address] 34556 PCP - General 03/18/23 Cindy Ruiz [address] [place], [place] 806660 Resident Internal Medicine 12/07/14 Trevor Espino MD [address] [place] [address] 099225 Urology 05/16/16 Melanie Boykin MD [address] [place] [address] [phone] manufacturing sr engineer 12/10/16 11/07/23 Jaci Whitlock APRN TAILING MACHINE OPERATOR [address] [place] [address] 035325 Nurse Practitioner - Women's Health 12/14/16 Shanelle Mcgowan MD [address] [place] [address] [phone] Assigned Surgical Provider 02/26/20 07/29/21 Doris Ricci MD [facility] & [address] [address] Physician Internal Medicine 07/11/20 Yudy Pompa MD [address] [place] [address] 467565 Assigned Cancer Care Provider 08/21/20 Jessi Mcfadden MD [address] [place] [address] F282/2A [place], [place] [phone] Resident Psychiatry 11/08/20 12/23/22 Mary Carmen Rodriguez MD [address] 013485 MD Dermatology 11/09/20 Herber Lopez MD [address] [place] [address] 669765 Dermapathology 11/09/20 Yomi Izquierdo DPM [address] [facility] [address] [place], [place] [phone] Assigned Musculoskeletal Provider 12/04/20 06/08/22 Torey uLna MD [address] [place] [address] [phone] Assigned PCP 04/23/21 03/22/23 Herber Lopez MD [address] [place] [address] [phone] Assigned Surgical Provider 07/30/21 11/17/21 Maurilio Carlson MD 9 [place], [place] [phone] Assigned Surgical Provider 11/18/21 11/23/22 Herber Lopez MD [address] [place] [address] 146655 Assigned Surgical Provider 11/24/22 12/21/22 Gloria Elizalde MD [address] [place] [address] 844245 Resident 8/21/23 Olena Smith LSW Specialty Sewing Demonstrator Branch Credit Counselor - Clinical 12/25/22 01/03/23 [place] [address] [place] [address]87[address] Assigned Surgical Provider 12/22/22 05/17/23 Mamadou Bowie MD [address] [place] [address] 90[address] Assigned PCP 03/23/23 Herber Lopez MD [address] [place] [address] 72722 Assigned Surgical Provider 05/18/23 07/25/24 Makenzie Romano MD [address] [place] [address] 31426 manufacturing sr engineer & Neurology - Child & Adolescent Psychiatry 11/08/23 Shani Stephenson MD [address] [place] [address] 514825 Resident Psychiatry 11/08/23 Yomi Campos, PhD [address] [place] [address] 568284 Assigned Behavioral Health Provider 01/27/24 08/25/24 Ita [place] Specialty Sewing Demonstrator 06/04/24 Kenya Jennings MD [address] [place] [address] 258625 Plastic Surgery 06/04/24 Herber Lopez MD [address] [place] [address] Assigned Dermatology Provider 07/26/24 Сергей Dumont, [facility] Branch Credit Counselor 08/13/24 Kenya Jennings MD 420 [facility] 195 [place], [place] 315655 Assigned Surgical Provider 08/26/24 Jesse Arvizu MD [address] [place] [address] Assigned Behavioral Health Provider 08/26/24 09/24/24 Luis [place] MD [address] [place], [place] 402494 Assigned Behavioral Health Provider 09/25/24 10/25/24 Carmen Cole PA-C 6363 [facility] 103 [place], [place] 369725 Assigned Sleep Provider 09/25/24 Racheal Ng MD 2450 [facility] F282 [place], [place] [phone] Assigned Behavioral Health Provider 10/26/24 documented as of this encounter
--- OUTSIDE RECORDS SUMMARY | 2024-10-28 19:15 | XMS_ITS | Encounter Summary ---
Author Organization [place] Address [address] [place] [address] Care Team Providers Care Cloth Piecer Name Role Phone iCndy Ruiz Unavailable [phone] Trevor Espino MD Unavailable +[phone] Melanie Boykin MD Unavailable [phone] Jaci Whitlock APRN HAIR DESIGNER Unavailable + Doris Ricci MD Unavailable +[phone] Yudy Pompa MD Unavailable [phone] Mary Carmen Rodriguez MD Unavailable + Herber Lopez MD Unavailable +[phone] Torey Luna MD Primary Care Provider [phone] Torey Luna MD Unavailable +[phone] Gloria Elizalde MD Unavailable +[phone] Maurilio Carlson MD Unavailable Mamadou Bowie MD Primary Care Provider [phone] Mamadou Bowie MD Unavailable Herber Lopez MD Unavailable +[phone] Makenzie Romano MD Unavailable +[phone] Shani Stephenson MD Unavailable +[phone] Yomi Campos PhD Unavailable +[phone] Ita Newton Unavailable Unavailable Kenya Jennings MD Unavailable +[phone] Herber Lopez MD Unavailable +[phone] Сергей Dumont [facility] Unavailable Unavailable Kenya Jennings MD Unavailable +[phone] Jesse Arvizu MD Unavailable Luis Dudley MD Unavailable +[phone] Carmen Cole PA-C Unavailable +[phone] Racheal Ng MD Unavailable [phone] Encounter Details Date Type Department Care Team (Late st Contact Info) Description 02/25/2023 MyC Medical Advice [facility] Cancer Clinic [address] [place] [address] [facility] Social History Tobacco Use Types Packs/Day Years Used Date Smoking Tobacco: Never Smokeless Tobacco: Never Alcohol Use Standard Drinks/Week Comments No 0 (1 standard drink = 0.6 oz pur e alcohol) PHQ-2 Answer Date Recorded PHQ-2 Score 2 12/24/2022 Adolescent Education Answer Date Record ed Getting School Help Needed Not on file 01/29 Comments No Sex and Gender Information Value Date Recorded Sex Assigned at Female 11/14/2020 10:33 PM CDT Legal Sex Female 3:58 AM COMPONENT OVERHAUL OPERATOR Gender Identity other 11/14/2020 10:33 PM CDT Sexual Orientation Lesbian 06/22/2019 4: 20 AM COMPONENT OVERHAUL OPERATOR documented as of this encounter Plan of Treatment Upcoming Encounters Date Type Department Care Team (Latest Contact Info) Description 10/29/2024 11:00 AM CDT [facility] [address] [facility] [address] [place] [phone] 11/23/2024 1:30 PM CDT Office Visit [facility] Mental Health & Addiction [address] [place] [address] [address] [address] Melanie Boykin MD [address] [place] [address] Gloria Elizalde MD [address] [place] [address] 423045 12/03/2024 3:00 PM CDT [facility] [address] [facility] [address] [place] [phone] Jesse Arvizu MD 57[address] [place] [address] 12/15/2024 11:40 AM CDT Ancillary Procedure [facility] Imaging Center CT Clinic [address] 1[address] [place] [phone] Yudy Pompa MD [address] [place] [address] 284375 12/22/2024 11:40 AM CDT Oncology Visit [facility] [address] [place] [phone] Yudy Pompa MD [address] [place] [address] 191495 02/22/2025 12:30 PM CDT Office Visit [facility] [address] [phone] Kenya Jennings MD [address] [place] [address] 195 [place], [place] 146275 03/12/2025 1:00 PM COMPONENT OVERHAUL OPERATOR Office Visit [facility] Internal Medicine [address] [place] [phone] Mamadou Bowie MD [address] [place] [address] 670785 03/23/2025 8:00 AM COMPONENT OVERHAUL OPERATOR Hospital Encounter [facility] PeriOp Services [facility] [phone] Kenya Jennings MD [address] [place] [address] 03/23/2025 8:00 AM COMPONENT OVERHAUL OPERATOR - 03/23/2025 12:05 PM COMPONENT OVERHAUL OPERATOR Surgery [facility] PeriOp Services [facility] [place] [phone] Kenya Jennings MD [address] [place] [address] 711385 MASTECTOMY, BILATERAL, SIMPLE, NO nipple grafts. OnQ 03/30/2025 10:00 AM COMPONENT OVERHAUL OPERATOR Office Visit [facility] [address] [phone] Lynn Parks APRN [address] 535155 04/16/2025 1:00 PM COMPONENT OVERHAUL OPERATOR Office Visit [facility] Internal Medicine [address] [phone] Mamadou Bowie MD [address] [place] [address] 9[address] 05/03/2025 4:00 PM COMPONENT OVERHAUL OPERATOR Office Visit [facility] [address] [phone] Kenya Jennings MD [address] [place] [address] 237[address] 08/17/2025 12:15 PM CDT Office Visit [facility] Dermatology Clinic [address] [place] [phone] Herber Lopez MD 420 [facility] 98 [place], [place] 289255 Scheduled Procedures Name Priority Associated Diagnoses Date/Ti me MASTECTOMY, BILATERAL, FOR GENDER AFFIRMATION Gender dysphoria in adult 03/23/2025 8:00 AM COMPONENT OVERHAUL OPERATOR documented as of this encounter Visit Diagnoses Not on filedocumented in this encounter Additional Health Concerns Assessment Noted Time PHQ-9 Depression Total Score: 5 04/04/20 23 7:17 AM COMPONENT OVERHAUL OPERATOR documented as of this encounter Care Teams Cloth Piecer Relationship Specialty Start Date End Date Torey Luna MD [address] [place] [address] 10076 PCP - General Internal Medicine 04/19/21 03/17/23 Mamadou Bowie MD [address] [place] [address] 88149 PCP - General 03/18/23 Cindy Ruiz [facility] [facility] [place] [place] [address] Resident Internal Medicine 12/07/14 Trevor Espino MD [address] [place] [address] 18171 Urology 05/16/16 Melanie Boykin MD [address] [place] [address] 033534 green end worker 12/10/16 11/07/23 Jaci Whitlock APRN HAIR DESIGNER [address] [place] [address] 395 [place], [place] 505505 Nurse Practitioner - Women's Health 12/14/16 Doris Ricci MD [address] [address] Physician Internal Medicine 07/11/20 Yudy Pompa MD [address] [place] [address] 013175 Assigned Cancer Care Provider 08/21/20 Mary Carmen Rodriguez MD [address] [place] [address] 415245 Dermatology 11/09/20 Herber Lopez MD [address] [place] [address] 753205 Dermapathology 11/09/20 Torey Luna MD [address] [place] [address] 008995 Assigned PCP 04/23/21 03/22/23 Gloria Elizalde MD [address] [place] [address] 948265 Resident 12/24/22 [place] [address] [place], [place] 420789 Assigned Surgical Provider 12/22/22 05/17/23 Mamadou Bowie MD [address] [place] [address] 919945 Assigned PCP 03/23/23 Herber Lopez MD [address] 765385 Assigned Surgical Provider 05/18/23 07/25/24 Makenzie Romano MD [address] [phone] green end worker & Neurology - Child & Adolescent Psychiatry 11/08/23 Shani Stephenson MD 420 [place] [address] Resident Psychiatry 11/08/23 Yomi Campos, PhD [address] [place] [address] 316384 Assigned Behavioral Health Provider 01/27/24 08/25/24 Ita Newton Specialty Diesel Tractor Operator 06/04/24 Kenya Jennings MD [address] [place] [address] 850715 Plastic Surgery 06/04/24 Herber Lopez MD [address] [place] [address] 737985 Assigned Dermatology Provider 07/26/24 Сергей Dumont [facility] Vessel Traffic Officer 08/13/24 Kenya Jennings MD [address] [place] [address] 417405 Assigned Surgical Provider 08/26/24 Jesse Arvizu MD [address] [place], [place] [phone] Assigned Behavioral Health Provider 08/26/24 09/24/24 Luis Dudley MD 240 [place], [place] [phone] Assigned Behavioral Health Provider 09/25/24 10/25/24 Carmen Cole PA-C [address] [facility] [place] 103 [place], [place] 288415 Assigned Sleep Provider 09/25/24 Racheal Ng MD 2450 [facility] [address] [place] [address] Assigned Behavioral Health Provider 10/26/24 documented as of this encounter
--- OUTSIDE RECORDS SUMMARY | 2024-10-28 19:15 | XMS_ITS | Encounter Summary ---
Author Organization [place] Address [address] [place] [address]28 Care Team Providers Care Field Secretary Name Role Phone Cindy Ruiz Unavailable Trevor Espino MD Unavailable [phone] Jaci Whitlock APRN SET UP MOLD TECHNICIAN Unavailable + Doris Ricci MD Unavailable Yudy Pompa MD Unavailable [phone] Mary Carmen Rodriguez MD Unavailable + Herber Lopez MD Unavailable +[phone] Gloria Elizalde MD Unavailable [phone] Mamadou Bowie MD Primary Care Provider [phone] Mamadou Bowie MD Unavailable Makenzie Romano MD Unavailable [phone] Shani Stephenson MD Unavailable Ita Newton Unavailable Unavailable Kenya Jennings MD Unavailable [phone] Herber Lopez MD Unavailable +[phone] Сергей Dumont [facility] Unavailable Unavailable Kenya Jennings MD Unavailable Jesse Arvizu MD Unavailable Luis Dudley MD Unavailable [phone] Carmen Cole PA-C Unavailable + [phone] Racheal Ng MD Unavailable Encounter Details Date Type Department Care Team (Late st Contact Info) Description 09/11/2024 MyC Medical Advice [facility] Cancer [address] [address] Nery Cummings Social History Tobacco Use Types Packs/Day Years [...] Answer Date Recorded PHQ-2 Score 3 09/15/2024 [facility] [place] of Occupat ional Health - Occupational Stress [...] PM CDT Legal Sex Female 3:58 AM DATA DEVELOPER Gender Identity other 11/14/2020 10:33 PM CDT Sexual Orientation Lesbian 06/22/2019 4: 20 AM DATA DEVELOPER documented as of this encounter Plan of Treatment Upcoming Encounters Date Type Department Care Team (Latest Contact Info) Description 10/29/2024 11:00 AM CDT [facility] [address] [facility] [address] [place] [address] 11/23/2024 1:30 PM CDT Office Visit [facility] Addiction [address] [place] F[address] [address] [phone] Melanie Boykin MD 7211 [place] [address] Gloria Elizalde MD [address] [place] [address] 641405 12/03/2024 3:00 PM CDT Office Visit [facility] [address] [facility] [address] [place] [phone] Jesse Arvizu MD 5775 [place], [place] 992426 12/15/2024 11:40 AM CDT Ancillary Procedure [facility] CT Clinic [address] [place] [phone] Yudy Pompa MD [address] [place] [address] 375015 12/22/2024 11:40 AM CDT Oncology Visit [facility] [address] [place] [phone] Yudy Pompa MD [address] [place] [address] 294065 02/22/2025 12:30 PM CDT Office Visit [facility] [address] [place] [phone] Kenya Jennings MD [address] [place] [address] 137185 03/12/2025 1:00 PM DATA DEVELOPER Office Visit [facility] Internal Medicine [address] [place] [phone] Mamadou Bowie MD [address] [place] [address] 300975 03/23/2025 8:00 AM DATA DEVELOPER Hospital Encounter [facility] PeriOp Services [facility] [place] [phone] Kenya Jennings MD [address] [place] [address] 531495 03/23/2025 8:00 AM DATA DEVELOPER - 03/23/2025 12:05 PM DATA DEVELOPER Surgery [facility] PeriOp Services [facility] [place] [phone] Kenya Jennings MD [address] [place] [address] 260465 MASTECTOMY, BILATERAL, SIMPLE, NO nipple grafts. OnQ 03/30/2025 10:00 AM DATA DEVELOPER Office Visit [facility] [address] [phone] Lynn Parks APRN [address] [address] 04/16/2025 1:00 PM DATA DEVELOPER Office Visit [facility] Internal Medicine [address] [phone] Mamadou Bowie MD [address] [place] [address] 05/03/2025 4:00 PM DATA DEVELOPER Office Visit [facility] [address] [phone] Kenya Jennings MD [address] [place] [address] 806205 08/17/2025 12:15 PM CDT Office Visit [facility] Dermatology [address] [place] [phone] Herber Lopez MD 420 [facility] 98 [place] [address] Scheduled Procedures Name Priority Associated Diagnoses Date/Ti me MASTECTOMY, BILATERAL, FOR GENDER AFFIRMATION Gender dysphoria in adult 03/23/2025 8:00 AM DATA DEVELOPER documented as of this encounter Goals Goal [...] Noted Time PHQ-9 Depression Total Score: 12 025 9:28 AM CDT documented as of this encounter Care Teams Field Secretary Relationship Specialty Start Date End Date Mamadou Bowie MD 909 [place] [address] PCP - General 03/18/23 Cindy Ruiz [facility] [address] [place] [address] Resident Internal Medicine 12/07/14 Trevor Espino MD 909 [place] [address] Urology 05/16/16 Jaci Whitlock APRN SET UP MOLD TECHNICIAN 420 [facility] 395 [place], [place] 713595 Nurse Practitioner - Women's Health 12/14/16 Doris Ricci MD [facility] & [address] [address] Physician Internal Medicine 07/11/20 Yudy Pompa MD [address] [place] [address] 225185 Assigned Cancer Care Provider 08/21/20 Mary Carmen Rodriguez MD [address] [place] [address] 215445 Dermatology 11/09/20 Herber Lopez MD [address] [place] [address] 101125 Dermapathology 11/09/20 Gloria Elizalde MD [address] [place] [address] 883855 Resident 12/24/22 Mamadou Bowie MD [address] [place] [address] 10419 Assigned PCP 03/23/23 Makenzie Romano MD [address] [place] [address] clinical application consultant & Neurology - Child & Adolescent Psychiatry 11/08/23 Shani Stephenson MD [address] [place] [address] 082815 Resident Psychiatry 11/08/23 Ita Newton Specialty Press Room Supervisor 06/04/24 Kenya Jennings MD [address] [place] [address] 800515 Plastic Surgery 06/04/24 Herber Lopez MD [address] [place] [address] [place] [address] Assigned Dermatology Provider 07/26/24 Сергей Dumont, [facility] Real Estate Internship 08/13/24 Kenya Jennings MD 420 [facility] 195 [place], [place] 116595 Assigned Surgical Provider 08/26/24 Jesse Arvizu MD 5775 [place] [address] Assigned Behavioral Health Provider 08/26/24 09/24/24 Luis Dudley MD 240 [place], [place] 605944 Assigned Behavioral Health Provider 09/25/24 10/25/24 Carmen Cole PA-C 6363 [facility] [address] 103 [place], [place] 149855 Assigned Sleep Provider 09/25/24 Racheal Ng MD 2450 [facility] F282 [place], [place] 704624 Assigned Behavioral Health Provider 10/26/24 documented as of this encounter
--- OUTSIDE RECORDS SUMMARY | 2024-10-28 19:15 | XMS_ITS | Encounter Summary ---
Author Organization [place] Address [address] [place] [address]93 Care Team Providers Care Office Clin Asst Name Role Phone Cindy Ruiz Unavailable Trevor Espino MD Unavailable [phone] Jaci Whitlock APRN SILK SCREEN PRINTER Unavailable + Doris Ricci MD Unavailable [phone] Yudy Pompa MD Unavailable [phone] Mary Carmen Rodriguez MD Unavailable + Herber Lopez MD Unavailable [phone] Gloria Elizalde MD Unavailable [phone] Mamadou Bowie MD Primary Care Provider [phone] Mamadou Bowie MD Unavailable Makenzie Romano MD Unavailable [phone] Shani Stephenson MD Unavailable +[phone] Ita Newton Unavailable Unavailable Kenya Jennings MD Unavailable [phone] Herber Lopez MD Unavailable +[phone] Сергей Dumont [facility] Unavailable Unavailable Kenya Jennings MD Unavailable [phone] Jesse Arvizu MD Unavailable Encounter Details Date Type Department Care Team (Latest Contact Info) Description 09/14/2024 Travel Social History Tobacco Use Types Packs/Day [...] relatives? Three times a week 04/02/2024 Attends Mandaen Services Not on file 04/02 Active Member of Clubs or Organizations Not on f ile 04/02/2024 Attends Club or Organization Meetings Not on jd e 04/02/2024 Marital Status Not on file 04/02/2024 PHQ-2 Answer Date Recorded PHQ-2 Score 3 09/15/2024 [facility] of Occupat ional Health - Occupational [...] PM CDT Legal Sex Female 3:58 AM SET OFF BLOCKER Gender Identity other 11/14/2020 10:33 PM CDT Sexual Orientation Lesbian 06/22/2019 4: 20 AM SET OFF BLOCKER documented as of this encounter Plan of Treatment Upcoming Encounters Date Type Department Care Team (Latest Contact Info) Description 10/29/2024 11:00 AM CDT Virtual Visit [facility] [address] [place] [address] [phone] 11/23/2024 1:30 PM CDT Office Visit [facility] Mental Health & Addiction [place] [phone] [address] [place] [phone] Melanie Boykin MD [address] [place] [address] 111364 Gloria Elizalde MD [address] [place] [address] [phone] 12/03/2024 3:00 PM CDT Office Visit [facility] Psychiatry [facility] [address] [phone] Jesse Arvizu MD [address] [place] [address] 12/15/2024 11:40 AM CDT Ancillary Procedure [facility] Imaging Center CT Clinic [address] [place] [phone] Yudy Pompa MD [address] [place] [address] 161775 12/22/2024 11:40 AM CDT Oncology Visit [facility] [address] [place] [address] [phone] Yudy Pompa MD [address] [place] [address] 8[address] 02/22/2025 12:30 PM CDT Office Visit [facility] Plastic and Reconstructive Surgery Clinic [address] [phone] Kenya Jennings MD [address] [place] [address] 4[address]9 03/12/2025 1:00 PM SET OFF BLOCKER Office Visit [facility] Internal Medicine [address] [phone] Mamadou Bowie MD [address] [place] [address] 03/23/2025 8:00 AM SET OFF BLOCKER Hospital Encounter [facility] PeriOp Services [address] [place] [phone] Kenya Jennings MD [address] [place] [address] 03/23/2025 8:00 AM SET OFF BLOCKER - 03/23/2025 12:05 PM SET OFF BLOCKER Surgery [facility] PeriOp Services [address] [place] [phone] Kenya Jennings MD [address] [place] [address] 600515 MASTECTOMY, BILATERAL, SIMPLE, NO nipple grafts. OnQ 03/30/2025 10:00 AM SET OFF BLOCKER Office Visit [facility] Plastic and Reconstructive Surgery Clinic [address] [phone] Lynn Parks APRN [address] 394495 04/16/2025 1:00 PM SET OFF BLOCKER Office Visit [facility] Internal Medicine [address] [phone] Mamadou Bowie MD [address] [place] [address] 05/03/2025 4:00 PM SET OFF BLOCKER Office Visit [facility] Plastic and Reconstructive Surgery Clinic [address] [phone] Kenya Jennings MD [address] [place] [address] 521745 08/17/2025 12:15 PM CDT Office Visit [facility] Dermatology Clinic [address] [place] [phone] Herber Lopez MD [address] [place] [address] 294185 Scheduled Procedures Name Priority Associated Diagnoses Date/Ti me MASTECTOMY, BILATERAL, FOR GENDER AFFIRMATION Gender dysphoria in adult 03/23/2025 8:00 AM SET OFF BLOCKER documented as of this encounter Goals Goal [...] Time PHQ-9 Depression Total Score: 11 025 9:24 AM CDT documented as of this encounter Care Teams Office Clin Asst Relationship Specialty Start Date End Date Mamadou Bowie MD [address] [place] [address] 13235 PCP - General 03/18/23 C[address] Ru[address] [place] [address] Resident Internal Medicine 12/07/14 Trevor Espino MD [address] [place] [address] [phone] Urology 05/16/16 Jaci Whitlock APRN SILK SCREEN PRINTER [address] [place] [address] 089225 Nurse Practitioner - Women's Health 12/14/[address] [facility] [address] [place] [address] Physician Internal Medicine 07/11/20 Yudy Pompa MD [address] [place] [address] 032315 Assigned Cancer Care Provider 08/21/20 Mary Carmen Rodriguez MD [address] [place] [address] 98 [place], [place] 451705 Dermatology 11/09/20 Herber Lopez MD [address] [place] [address] 275205 Dermapathology 11/09/20 Gloria Elizalde MD [address] [place] [address] 557065 Resident 12/24/22 Mamadou Bowie MD [address] [place] [address] 975175 Assigned PCP 03/23/23 Makenzie Romano MD [address] [place] [address] 448294 seed laboratory assistant & Neurology - Child & Adolescent Psychiatry 11/08/23 Shani Stephenson MD [address] [place] [address] Resident Psychiatry 11/08/23 Ita Newton Specialty Incinerator Plant Laborer 06/04/24 Kenya Jennings MD [address] [place] [address] 410765 Plastic Surgery 06/04/24 Herber Lopez MD [address] [place] [address] 837285 Assigned Dermatology Provider 07/26/24 Сергей Dumont [facility] Child Psychologist 08/13/24 Kenya Jennings MD [address] [place] [address] 697785 Assigned Surgical Provider 08/26/24 Jesse Arvizu MD [address] [place] [address] Assigned Behavioral Health Provider 08/26/24 09/24/24 documented as of this encounter
--- OUTSIDE RECORDS SUMMARY | 2024-10-28 19:15 | XMS_ITS | Encounter Summary ---
Author Organization [facility] Address [address] [place] [address] Care Team Providers Care Ornamental Iron Worker Helper Name Role Phone Cindy Ruiz Unavailable [phone] Trevor Espino MD Unavailable [phone] Melanie Boykin MD Unavailable [phone] Jaci Whitlock APRN HEALTHCARE SOCIAL WORKER Unavailable + Doris Ricci MD Unavailable Yudy Pompa MD Unavailable +[phone] Mary Carmen Rodriguez MD Unavailable + Herber Lopez MD Unavailable [phone] Torey Luna MD Primary Care Provider Torey Luna MD Unavailable +[phone] Gloria Elizalde MD Unavailable [phone] Maurilio Carlson MD Unavailable Mamadou Bowie MD Primary Care Provider [phone] Mamadou Bowie MD Unavailable Herber Lopez MD Unavailable +[phone] Makenzie Romano MD Unavailable [phone] Shani Stephenson MD Unavailable [phone] Yomi Campos PhD Unavailable +[phone] Ita Newton Unavailable Unavailable Kenya Jennings MD Unavailable [phone] Herber Lopez MD Unavailable +[phone] Сергей Dumont [facility] Unavailable Unavailable Kenya Jennings MD Unavailable +[phone] Jesse Arvizu MD Unavailable Luis Dudley MD Unavailable [phone] Carmen Cole PA-C Unavailable +[phone] Racheal Ng MD Unavailable [phone] Encounter Details Date Type Department Care Team (Late st Contact Info) Description 01/16/2023 MyC Medical Advice [facility] [address] [place] [address] [facility] Social History Tobacco Use Types Packs/Day Years Used Date Smoking Tobacco: Never Smokeless Tobacco: Never Alcohol Use Standard Drinks/Week Comments No 0 (1 standard drink = 0.6 oz pur e alcohol) PHQ-2 Answer Date Recorded PHQ-2 Score 2 12/24/2022 Comments No Sex and Gender Information Value Date Recorded Sex Assigned at Female 11/14/2020 10:33 PM CDT Legal Sex Female 3:58 AM FRAME BUILDER Gender Identity other 11/14/2020 10:33 PM CDT Sexual Orientation Lesbian 06/22/2019 4: 20 AM FRAME BUILDER COVID-19 Exposure Response Date Recorded In the last 10 days, have yo u been in contact with someone who was confirmed or suspected to have Coronavirus/COVID-19? No / Unsure 01/01/2023 10:27 AM CDT documented as of this encounter Plan of Treatment Upcoming Encounters Date Type Department Care Team (Latest Contact Info) Description 10/29/2024 11:00 AM CDT [facility] [address] [facility] [address] [place] [address] 11/23/2024 1:30 PM CDT Office Visit [facility] Mental Health & Addiction [place] [phone] [phone] Melanie Boykin MD [address] [place], [place] 451474 Gloria Elizalde MD [address] [place] [address] [phone] 12/03/2024 3:00 PM CDT [facility] [address] [facility] [address] [place] [phone] Jesse Arvizu MD [address] [place], [place] 657016 12/15/2024 11:40 AM CDT Ancillary Procedure [facility] Imaging Center [facility] Clinic [address] [place] [phone] Yudy Pompa MD [address] [place] [address] 991475 12/22/2024 11:40 AM CDT Oncology [facility] [address] [place] [phone] Yudy Pompa MD [address] [place] [address] [phone] 02/22/2025 12:30 PM CDT Office Visit [facility] Plastic and Reconstructive Surgery Clinic [address] [place] [phone] Kenya Jennings MD [address] [place] [address] 469415 03/12/2025 1:00 PM FRAME BUILDER Office Visit [facility] Internal Medicine [address] [place] [address] Mamadou Bowie MD [address] [place] [address] 03/23/2025 8:00 AM FRAME BUILDER Hospital Encounter [facility] Per[facility]Op [facility] [address] [place] [phone] Kenya Jennings MD [address] [place] [address] 643685 03/23/2025 8:00 AM FRAME BUILDER - 03/23/2025 12:05 PM FRAME BUILDER Surgery [facility] [address] [place] [phone] Kenya Jennings MD [address] [place] [address] 100785 MASTECTOMY, BILATERAL, SIMPLE, NO nipple grafts. OnQ 03/30/2025 10:00 AM FRAME BUILDER Office Visit [facility] [address] [phone] Lynn Parks APRN [address] [address] 04/16/2025 1:00 PM FRAME BUILDER Office Visit [facility] Internal Medicine [address] [phone] Mamadou Bowie MD [address] [place] [address] 05/03/2025 4:00 PM FRAME BUILDER Office Visit [facility] [address] [phone] Kenya Jennings MD [address] [place] [address] [phone] 08/17/2025 12:15 PM CDT Office Visit [facility] Dermatology Clinic [place] [address] [facility] [address] [place] [phone] Herber Lopez MD [address] [facility] 98 [place] [address] Scheduled Procedures Name Priority Associated Diagnoses Date/Ti me MASTECTOMY, BILATERAL, FOR GENDER AFFIRMATION Gender dysphoria in adult 03/23/2025 8:00 AM FRAME BUILDER documented as of this encounter Visit Diagnoses Not on filedocumented in this encounter Additional Health Concerns Assessment Noted Time PHQ-9 Depression Total Score: 5 04/04/20 7:17 AM FRAME BUILDER documented as of this encounter Care Teams Ornamental Iron Worker Helper Relationship Specialty Start Date End Date Torey Luna MD [address] [place] [address] PCP - General Internal Medicine 04/19/21 03/17/23 Mamadou Bowie MD [address] [place] [address] [phone] PCP - General 03/18/23 [address] [place] [place] [address] Resident Internal Medicine 12/07/14 Trevor Espino MD [address] [place] [address] 118585 Urology 05/16/16 Melanie Boykin MD [address] [place] [address] breaker off 12/10/16 11/07/23 Jaci Whitlock APRN HEALTHCARE SOCIAL WORKER [address] [facility] 395 [place], [place] 345935 Nurse Practitioner - Women's Health 12/14/16 Doris Ricci MD [facility] [address] [address] Physician Internal Medicine 07/11/20 Yudy Pompa MD 909 [place] [address] Assigned Cancer Care Provider 08/21/20 Mary Carmen Rodriguez MD 420 [facility] 98 [place], [place] 772925 Dermatology 11/09/20 Herber Lopez MD [address] [facility] 98 [place], [place] 463085 Dermapathology 11/09/20 Torey Luna MD [address] [place] [address] 814115 Assigned PCP 04/23/21 03/22/23 Gloria Elizalde MD [address] [place] [address] [phone] Resident 12/24/22 [place] [address] [place] [address] Assigned Surgical Provider 12/22/22 05/17/23 Mamadou Bowie MD 909 [place] [address] Assigned PCP 03/23/23 Herber Lopez MD [address] [place] [address] Assigned Surgical Provider 05/18/23 07/25/24 Makenzie Romano MD [address] [place] [address] breaker off & Neurology - Child & Adolescent Psychiatry 11/08/23 Shani Stephenson MD [address] [place] [address] [phone] Resident Psychiatry 11/08/23 Yomi Campos, PhD [address] [place] [address] Assigned Behavioral Health Provider 01/27/24 08/25/24 Iat Newton Specialty Goat Driver 06/04/24 Kenya Jennings MD [address] [place] [address] [phone] Plastic Surgery 06/04/24 Herber Lopez MD [address] [place] [address] Assigned Dermatology Provider 07/26/24 Сергей Dumont, [facility] Pay Agent 08/13/24 Kenya Jennings MD [address] [place] [address] Assigned Surgical Provider 08/26/24 Jesse Arvizu MD [address] [place] [address] Assigned Behavioral Health Provider 08/26/24 09/24/24 Luis Dudley MD 240 [place], [place] 107974 Assigned Behavioral Health Provider 09/25/24 10/25/24 Carmen Cole PA-C [address] [facility] [address] [place], [place] 480755 Assigned Sleep Provider 09/25/24 Racheal Ng MD 2450 [facility] [address] [place], [place] [phone] Assigned Behavioral Health Provider 10/26/24 documented as of this encounter
--- OUTSIDE RECORDS SUMMARY | 2024-10-28 19:15 | XMS_ITS | Encounter Summary ---
Author Organization [facility] Address [address] [place] [address] Care Team Providers Care Pulpit Operator Name Role Phone Cindy Ruiz Unavailable [phone] Trevor Espino MD Unavailable [phone] Jaci Whitlock APRN GAME AGENT Unavailable + Doris Ricci MD Unavailable [phone] Yudy Pompa MD Unavailable [phone] Mary Carmen Rodriguez MD Unavailable + Herber Lopez MD Unavailable [phone] Gloria Elizalde MD Unavailable [phone] Mamadou Bowie MD Primary Care Provider [phone] Mamadou Bowie MD Unavailable Makenzie Romano MD Unavailable [phone] Shani Stephenson MD Unavailable [phone] Ita Newton Unavailable Unavailable Kenya Jennings MD Unavailable [phone] Herber Lopez MD Unavailable [phone] Сергей Dumont [facility] Unavailable Unavailable Kenya Jennings MD Unavailable [phone] Jesse Arvizu MD Unavailable Encounter Details Date Type Department Care Team (Late st Contact Info) Description 09/15/2024 Documentation Only [facility] Plastic and Reconstructive Surgery Clinic [address] 4th [place] [address] Antonette Ferrari RN Social History Tobacco Use Types Packs/Day [...] relatives? Three times a week 04/02/2024 Attends [employer] Services Not on file 04/02 Active Member of Clubs or Organizations Not on f ile 04/02/2024 Attends Club or Organization Meetings Not on jd e 04/02/2024 Marital Status Not on file 04/02/2024 PHQ-2 Answer Date Recorded PHQ-2 Score 4 09/16/2024 [facility] Occupat ional [...] PM CDT Legal Sex Female 3:58 AM CHIN STRAP MAKER Gender Identity other 11/14/2020 10:33 PM CDT Sexual Orientation Lesbian 06/22/2019 4: 20 AM CHIN STRAP MAKER documented as of this encounter Progress Notes * Antonette Ferrari RN - 09/15/2024 8:44 AM CDT [facility] : Care Coordination Note SITUATION Gabriela Kraus is a 59 year old adult who is receiving support for: gender dysphoria. BACKGROUND Pt has seen Dr Jennings for gender affirming top surgery consultation. Pt has surgery scheduled for 03/03/2025. ASSESSMENT Pt LOS in chart dated 07/23/24 and reviewed by our social science manager. Pt will not need a pre-op mammogram. Pt does not use nicotine. PLAN Follow-up plan: Will contact pt to inform of need for pre-op H&P within 30 days of surgery. Pt to have pre-op surgical consultation with Dr Jennings 02/22/2025. STEFFEN Whitman documented in this encounter Plan of Treatment Upcoming Encounters Date Type Department Care Team (Latest Contact Info) Description 10/29/2024 11:00 AM CDT Virtual Visit [facility] [address] [facility] [address] [place] [phone] 11/23/2024 1:30 PM CDT Office Visit [facility] Mental Health & Addiction [address] [phone] [place] [address] [place] [address] 776874 Gloria Elizalde MD [address] [place] [address] 457905 12/03/2024 3:00 PM CDT Office Visit [facility] [address] [phone] Jesse Arvizu MD [address] [place] [address] 12/15/2024 11:40 AM CDT Ancillary Procedure [facility] Imaging Center CT Clinic [address] [place] [phone] Yudy Pompa MD [address] [place] [address] [phone] 12/22/2024 11:40 AM CDT Oncology Visit [facility] [address] [place] [address] [phone] Yudy Pompa MD [address] [place] [address] 580345 02/22/2025 12:30 PM CDT Office Visit [facility] Plastic and Reconstructive Surgery Clinic [place] [address] [phone] Kenya Jennings MD [address] [place] [address] 837935 03/12/2025 1:00 PM CHIN STRAP MAKER Office Visit [facility] Internal Medicine [address] [phone] Mamadou Bowie MD [address] [place] [address] 03/23/2025 8:00 AM CHIN STRAP MAKER Hospital Encounter [facility] [address] [place] [phone] Kenya Jennings MD [address] [place] [address] 03/23/2025 8:00 AM CHIN STRAP MAKER - 03/23/2025 12:05 PM CHIN STRAP MAKER Surgery [facility] [address] [place] [address] [phone] Kenya Jennings MD [address] [place] [address] 957505 MASTECTOMY, BILATERAL, SIMPLE, NO nipple grafts. OnQ 03/30/2025 10:00 AM CHIN STRAP MAKER Office Visit [facility] Clinic [address] [phone] Lynn Parks APRN [address] [phone] 04/16/2025 1:00 PM CHIN STRAP MAKER Office Visit [facility] Internal Medicine [address] [phone] Mamadou Bowie MD [address] [place] [address] 05/03/2025 4:00 PM CHIN STRAP MAKER Office Visit [facility] [address] [place] [phone] Kenya Jennings MD [address] [place] [address] 195 [place], [place] 390855 08/17/2025 12:15 PM CDT Office Visit [facility] Dermatology Clinic [address] [place] [address] Herber Lopez MD [address] [place] [address] 98 [place], [place] 191665 Scheduled Procedures Name Priority Associated Diagnoses Date/Ti me MASTECTOMY, BILATERAL, FOR GENDER AFFIRMATION Gender dysphoria in adult 03/23/2025 8:00 AM CHIN STRAP MAKER documented as of this encounter Goals Goal [...] documented as of this encounter Care Teams Pulpit Operator Relationship Specialty Start Date End Date Mamadou Bowie MD [address] [place] [address] PCP - General 03/18/23 Cindy Ru[place] [address] Resident Internal Medicine 12/07/14 Trevor Espino MD [address] [place] [address] Urology 05/16/16 Jaci Whitlock APRN CNP 420 [facility] 395 [place] [address] Nurse Practitioner - Women's Health 12/14/16 Doris Ricci MD [facility] & [address] [address] Physician Internal Medicine 07/11/20 Yudy Pompa MD [address] [place] [address] Assigned Cancer Care Provider 08/21/20 Mary Carmen Rodriguez MD 420 [facility] 98 [place] [address] Dermatology 11/09/20 Herber Lopez MD [address] [place] [address] 98 [place] [address] Dermapathology 11/09/20 Gloria Elizalde MD [address] [place] [address] Resident 12/24/22 Mamadou Bowie MD [address] [place] [address] 990275 Assigned PCP 03/23/23 Makenzie Romano MD [address] [place] [address] 148834 junior project manager & Neurology - Child & Adolescent Psychiatry 11/08/23 Shani Stephenson MD [address] [place] [address] [phone] Resident Psychiatry 11/08/23 Ita Newton Specialty Baseball Pitcher 06/04/24 Kenya Jennings MD [address] [place] [address] [phone] Plastic Surgery 06/04/24 Herber Lopez MD [address] [place] [address] 299455 Assigned Dermatology Provider 07/26/24 Сергей Dumont [facility] Compliance Consultant 08/13/24 Keyna Jennings MD [address] [place] [address] Assigned Surgical Provider 08/26/24 Jesse Arvizu MD 5775 [place] [address] Assigned Behavioral Health Provider 08/26/24 09/24/24 documented as of this encounter
--- OUTSIDE RECORDS SUMMARY | 2024-10-28 19:16 | XMS_ITS | Encounter Summary ---
Author Organization [place] Address [address] [place] [address] 25385 Care Team Providers Care Systems Librarian Name Role Phone Cindy Ruiz Unavailable [phone] Trevor Espino MD Unavailable [phone] Melanie Boykin MD Unavailable [phone] Jaci Whitlock APRN GIZZARD PEELER Unavailable + Yudy Mathews MD Primary Care Provider [phone] Juan M Smith MD, Madhuri Unavailable +[phone] Doris Ricci MD Unavailable Yudy Mathews MD Unavailable +[phone] Antonette Castro PA-C Unavailable +[phone] Yudy Pompa MD Unavailable [phone] Jessi Mcfadden MD Unavailable +[phone] Mary Carmen Rodriguez MD Unavailable + Herber Lopez MD Unavailable +[phone] Yomi Izquierdo DPM Unavailable [phone] Torey Luna MD Primary Care Provider + [phone] Antonette Castro PA-C Unavailable +[phone] Torey Luna MD Unavailable Herber Lopez MD Unavailable Maurilio Carlson MD Unavailable Herber Lopez MD Unavailable +[phone] Gloria Elizalde MD Unavailable [phone] SmithOlena [facility] Unavailable Unavailable Maurilio Carlson MD Unavailable Mamadou Bowie MD Primary Care Provider [phone] Mamadou Bowie MD Unavailable Herber Lopez MD Unavailable +[phone] Makenzie Romano MD Unavailable [phone] Shani Stephenson MD Unavailable +[phone] Yomi Campos PhD Unavailable +[phone] Ita Newton Unavailable Unavailable Kenya Jennings MD Unavailable + [phone] Herber Lopez MD Unavailable +[phone] Сергей Dumont [facility] Unavailable Unavailable Kenya Jennings MD Unavailable + [phone] Jesse Arvizu MD Unavailable Luis Dudley MD Unavailable +[phone] Carmen Cole PA-C Unavailable +[phone] Racheal Ng MD Unavailable +[phone] Encounter Details Date Type Department Care Team (Late st Contact Info) Description 02/16/2021 [facility] [place] [facility] [address] [place] [address] Rhianna Berry APRN [facility] [address] [facility] 207 [place] [address] Social History Tobacco Use Types Packs/Day Years Used Date Smoking Tobacco: Never Smokeless Tobacco: Never Alcohol Use Standard Drinks/Week Comments No 0 (1 standard drink = 0.6 oz pur e alcohol) PHQ-2 Answer Date Recorded PHQ-2 Total Score (Adult) - Positive if 3 or more points; Administer PHQ-9 if positive 1 01/30/2021 Comments No Sex and Gender Information Value Date Recorded Sex Assigned at Female 11/14/2020 10:33 PM CDT Legal Sex Female 3:58 AM PURCHASING/RECEIVING Gender Identity other 11/14/2020 10:33 PM CDT Sexual Orientation Lesbian 06/22/2019 4: 20 AM PURCHASING/RECEIVING COVID-19 Exposure Response Date Recorded In the last month, have you been in contact with someone who was confirmed or suspected to have Coronavirus / COVID-19? No / Unsure 01/24/2021 10:38 AM CDT documented as of this encounter Plan of Treatment Upcoming Encounters Date Type Department Care Team (Latest Contact Info) Description 10/29/2024 11:00 AM CDT [facility] Visit [facility] [address] [place] [address] [phone] 11/23/2024 1:30 PM CDT Office Visit [facility] [place] [phone] [address] [place] [address] [phone] Melanie Boykin MD [address] [place] [address] [phone] Gloria Elizalde MD [address] [place] [address] 417755 12/03/2024 3:00 PM CDT Office Visit [facility] [address] [place] [address] [place] [address] [phone] Jesse Arvizu MD [address] [place] [address] 140036 12/15/2024 11:40 AM CDT Ancillary Procedure [facility] [address] [place] [phone] Yudy Pompa MD [address] [place] [address] 44[address] 12/22/2024 11:40 AM CDT Oncology Visit [facility] [address] [place] [address] [phone] Yudy Pompa MD [address] [place] [address] 43679 02/22/2025 12:30 PM CDT Office Visit [facility] [address] [phone] Kenya Jennings MD [address] [place] [address] 41811 03/12/2025 1:00 PM PURCHASING/RECEIVING Office Visit [facility] Internal Medicine [address] [phone] Mamadou Bowie MD [address] [place] [address] 57[address] 03/23/2025 8:00 AM PURCHASING/RECEIVING Hospital Encounter [facility] [address] [place] [address] [phone] Kenya Jennings MD [address] [place] [address] 92040 03/23/2025 8:00 AM PURCHASING/RECEIVING - 03/23/2025 12:05 PM PURCHASING/RECEIVING Surgery [facility] [address] [place], [place] [address] [phone] Kenya Jennings MD [address] [place] [address] 81227 MASTECTOMY, BILATERAL, SIMPLE, NO nipple grafts. OnQ 03/30/2025 10:00 AM PURCHASING/RECEIVING Office Visit [facility] [address] [phone] Lynn Parks APRN CNP [address] [place] [address] 43[address] 04/16/2025 1:00 PM PURCHASING/RECEIVING Office Visit [facility] [address] [place] [phone] Mamadou Bowie MD [address] [place] [address] [phone] 05/03/2025 4:00 PM PURCHASING/RECEIVING Office Visit [facility] [address] [phone] Kenya Jennings MD [address] [place] [address] 195 [place] [address] 08/17/2025 12:15 PM CDT Office Visit [facility] [address] [phone] Herber Lopez MD [address] [place] [address] 98 [place], [place] 099125 Scheduled Procedures Name Priority Associated Diagnoses Date/Ti me MASTECTOMY, BILATERAL, FOR GENDER AFFIRMATION Gender dysphoria in adult 03/23/2025 8:00 AM PURCHASING/RECEIVING documented as of this encounter Visit Diagnoses Not on filedocumented in this encounter Additional Health Concerns Assessment Noted Time PHQ-9 Depression Total Score: 3 02/01/20 21 7:02 AM CDT documented as of this encounter Care Teams Systems Librarian Relationship Specialty Start Date End Date Yudy Mathews MD [address] [place] [address] 395 [place] [address] PCP - General Internal Medicine 10/17/18 04/18/21 Torey Luna MD [address] [place] [address] [phone] PCP - General Internal Medicine 04/19/21 03/17/23 Mamadou Bowie MD [address] [place] [address] 192225 PCP - General 03/18/23 Cindy Ruiz [place] [address] Resident Internal Medicine 12/07/14 Trevor Espino MD [address] [place] [address] [phone] Urology 05/16/16 Melanie Boykin MD [address] [place] [address]454 quality assurance coach 12/10/16 11/07/23 Jaci Whitlock APRN GIZZARD PEELER [address] [place] [address] 417155 Nurse Practitioner - Women's Health 12/14/16 Shanelle Mcgowan MD [address] [place] [address] [phone] Assigned Surgical Provider 02/26/20 07/29/21 Doris Ricci MD [facility] [address] [place] [address] Physician Internal Medicine 07/11/20 Yudy Mathews MD [facility] [place] [address] Assigned PCP 07/25/20 04/22/21 Antonette Castro PA-C [address] [place] [address] 796405 Assigned Heart and Vascular Provider 07/20/20 04/08/21 Yudy Pompa MD [address] [place] [address] [phone] Assigned Cancer Care Provider 08/21/20 Jessi Mcfadden MD [address] [place] [address] F282/2A [place], [place] 750144 Resident Psychiatry 11/08/20 12/23/22 Mary Carmen Rodriguez MD [address] [place] [address] [phone] Dermatology 11/09/20 Herber Lopez MD [address] [place] [address] 551375 Dermapathology 11/09/20 Yomi Izquierdo DPM [address] [facility] [address] [place], [place] 243237 Assigned Musculoskeletal Provider 12/04/20 06/08/22 Antonette Castro PA-C [address] [place] [address] 742645 Assigned Gastroenterology Provider 04/09/21 07/08/21 Torey Luna MD [address] [place] [address] 92988 Assigned PCP 04/23/21 03/22/23 Herber Lopez MD [address] [place] [address] 90812 Assigned Surgical Provider 07/30/21 11/17/21 Maurilio Carlson MD [address] [place] [address] 87716 Assigned Surgical Provider 11/18/21 11/23/22 Herber Lopez MD [address] [place] [address] 51518 Assigned Surgical Provider 11/24/22 12/21/22 Gloria Elizalde MD [address] [place] [address] 06030 Resident 12/24/22 Olena Smith LSW Specialty Medical Technologist Chemistry Hearing Care Professional - Clinical 12/25/22 01/03/23 [place] [address] [place] [address] Assigned Surgical Provider 12/22/22 05/17/23 Mamadou Bowie MD [address] [place] [address] 54037 Assigned PCP 03/23/23 Herber Lopez MD [address] [place] [address] [phone] Assigned Surgical Provider 05/18/23 07/25/24 [place] [address] [place] [address] 00597 quality assurance coach & Neurology - Child & Adolescent Psychiatry 11/08/23 Shani [place]son MD [address] [place], [place] 980045 Resident Psychiatry 11/08/23 oYmi Campos, PhD [address] [place] [address] [phone] Assigned Behavioral Health Provider 01/27/24 08/25/24 Ita Newton Specialty Medical Technologist Chemistry 06/04/24 Kenya Jennings MD 420 [facility] 195 [place], [place] 335875 Plastic Surgery 06/04/24 Herber Lopez MD [address] [place] [address] 82825 Assigned Dermatology Provider 07/26/24 Сергей Dumont, [facility] Hearing Care Professional 08/13/24 Kenya Jennings MD [address] [place] [address] 415345 Assigned Surgical Provider 08/26/24 Jesse Arvizu MD 5775 [place] [address] Assigned Behavioral Health Provider 08/26/24 09/24/24 Luis Dudley MD 240 [place] [address] Assigned Behavioral Health Provider 09/25/24 10/25/24 Carmen Cole PA-C 6363 [facility] 103 [place], [place] 807165 Assigned Sleep Provider 09/25/24 Racheal Ng MD 2450 [facility] F282 [place], [place] 036134 Assigned Behavioral Health Provider 10/26/24 documented as of this encounter
--- OUTSIDE RECORDS SUMMARY | 2024-10-28 19:16 | XMS_ITS | Encounter Summary ---
Author Organization [place] Address [address] [place] [address]25 Care Team Providers Care Motor Man Name Role Phone Cindy Ruiz Unavailable Trevor Espino MD Unavailable [phone] Melanie Boykin MD Unavailable [phone] Jaci Whitlock APRN RV SERVICER Unavailable + Doris Ricci MD Unavailable Yudy Pompa MD Unavailable [phone] Jessi Mcfadden MD Unavailable Mary Carmen Rodriguez MD Unavailable + Herber Lopez MD Unavailable Torey Luna MD Primary Care Provider Torey Luna MD Unavailable Maurilio Carlson MD Unavailable Herber Lopez MD Unavailable [phone] Gloria Elizalde MD Unavailable [phone] Olena Smith [facility] Unavailable Unavailable Maurilio Carlson MD Unavailable Mamadou Bowie MD Primary Care Provider [phone] Mamadou Bowie MD Unavailable Herber Lopez MD Unavailable [phone] Makenzie Romano MD Unavailable [phone] Shani Stephenson MD Unavailable [phone] Yomi Campos PhD Unavailable [phone] Ita Newton Unavailable Unavailable Kenya Jennings MD Unavailable [phone] Herber Lopez MD Unavailable +[phone] Сергей Dumont [facility] Unavailable Unavailable Kenya Jennings MD Unavailable [phone] Jesse Arvizu MD Unavailable Luis Dudley MD Unavailable [phone] Carmen Cole PA-C Unavailable +[phone] Racheal Ng MD Unavailable + [phone] Encounter Details Date Type Department Care Team (Late st Contact Info) Description 09/27/2022 [facility] [place] [facility] [facility] 9 [place] [address] [facility] Social History Tobacco Use Types Packs/Day Years Used Date Smoking Tobacco: Never Smokeless Tobacco: Never Alcohol Use Standard Drinks/Week Comments No 0 (1 standard drink = 0.6 oz pur e alcohol) PHQ-2 Answer Date Recorded PHQ-2 Score 1 09/13/2022 Comments No Sex and Gender Information Value Date Recorded Sex Assigned at Female 11/14/2020 10:33 PM CDT Legal Sex Female 3:58 AM ASPHALT DISTRIBUTOR TENDER Gender Identity other 11/14/2020 10:33 PM CDT Sexual Orientation Lesbian 06/22/2019 4: 20 AM ASPHALT DISTRIBUTOR TENDER documented as of this encounter Plan of Treatment Upcoming Encounters Date Type Department Care Team (Latest Contact Info) Description 10/29/2024 11:00 AM CDT [facility] [address] [place] [address] [address] [place] [phone] 11/23/2024 1:30 PM CDT Office Visit [facility] [address] F[address] [phone] Melanie Boykin MD 7680 [place], [place] 737694 Gloria Elizalde MD [address] [place] [address] 814675 12/03/2024 3:00 PM CDT [facility] 5775 [facility] 255 [place] [phone] Jesse Arvizu MD [address]75 [place], [place] [phone] 12/15/2024 11:40 AM CDT Ancillary Procedure [facility] [address] [place] [phone] Yudy Pompa MD [address] [place] [address] 745205 12/22/2024 11:40 AM CDT Oncology Visit [facility] [address] [place] [phone] Yudy Pompa MD [address] [place] [address] 244205 02/22/2025 12:30 PM CDT Office Visit [facility] [address] [place] [phone] Kenya Jennings MD [address] [place] [address] 151325 03/12/2025 1:00 PM ASPHALT DISTRIBUTOR TENDER Office Visit [facility] Internal Medicine [address] [place] [phone] Mamadou Bowie MD [address] [place] [address] 26979 03/23/2025 8:00 AM ASPHALT DISTRIBUTOR TENDER Hospital Encounter [facility] [address] [place] [phone] Kenya Jennings MD [address] [place] [address] 883985 03/23/2025 8:00 AM ASPHALT DISTRIBUTOR TENDER - 03/23/2025 12:05 PM ASPHALT DISTRIBUTOR TENDER Surgery [facility] [address] [place] [address] [phone] Kenya Jennings MD [address] [place] [address] 142995 MASTECTOMY, BILATERAL, SIMPLE, NO nipple grafts. OnQ 03/30/2025 10:00 AM ASPHALT DISTRIBUTOR TENDER Office Visit [facility] [address] [phone] Lynn Parks APRN [address] [address] 04/16/2025 1:00 PM ASPHALT DISTRIBUTOR TENDER Office Visit [facility] Internal Medicine [address] [phone] Mamadou Bowie MD [address] [place] [address] 25162 05/03/2025 4:00 PM ASPHALT DISTRIBUTOR TENDER Office Visit [facility] [address] [phone] Kenya Jennings MD [address] [place] [address] 69845 08/17/2025 12:15 PM CDT Office Visit [facility] [place] 909 [facility] 3rd [place] [phone] Herber Lopez MD 420 [facility] 98 [place] [address] Scheduled Procedures Name Priority Associated Diagnoses Date/Ti me MASTECTOMY, BILATERAL, FOR GENDER AFFIRMATION Gender dysphoria in adult 03/23/2025 8:00 AM ASPHALT DISTRIBUTOR TENDER documented as of this encounter Visit Diagnoses Not on filedocumented in this encounter Additional Health Concerns Assessment Noted Time PHQ-9 Depression Total Score: 3 09/13/19 23 8:36 PM CDT documented as of this encounter Care Teams Motor Man Relationship Specialty Start Date End Date Torey Luna MD [address] [place] [address] 4TH [place], [place] 767705 PCP - General Internal Medicine 04/19/21 03/17/23 Mamadou Bowie MD [address] [place] [address] 495025 PCP - General 03/18/23 Cindy Ruiz [facility] [address] [place], [place] 745620 Resident Internal Medicine 12/07/14 Trevor Espino MD [address] [place] [address] [phone] Urology 05/16/16 Melanie Boykin MD [address] [place] [address] 85603 parking lot supervisor 12/10/16 11/07/23 Jaci Whitlock APRN [facility] 420 [facility] 395 [place], [place] 077815 Nurse Practitioner - Women's Health 12/14/16 Doris Ricci MD [facility] & [address] [address] Physician Internal Medicine 07/11/20 Yudy Pompa MD [address] [place] [address] 55455 Assigned Cancer Care Provider 08/21/20 Jessi Mcfadden MD [address] [place] [address] F282/2A [place], [place] 445324 Resident Psychiatry 11/08/20 12/23/22 Mary Carmen Rodriguez MD [address] [place] [address] 98 [place], [place] 854955 Dermatology 11/09/20 Herber Lopez MD [address] [place] [address] 98 [place], [place] 094215 Dermapathology 11/09/20 Torey Luna MD [address] [place] [address]455 Assigned PCP 04/23/21 03/22/23 Maurilio Carlson MD [address] [place] [address] 913595 Assigned Surgical Provider 11/18/21 11/23/22 Herber Lopez MD [address] [place] [address] 60563 Assigned Surgical Provider 11/24/22 12/21/22 Gloria Elizalde MD [address] [place] [address] 141995 Resident 12/24/22 Olena Smith, [facility] Specialty Vice President Underwriting Billing And Accounting Staff Assistant - Clinical 12/25/22 01/03/23 [place] [address] [place] [address] 73264 Assigned Surgical Provider 12/22/22 05/17/23 Mamadou Bowie MD [address] [place] [address] 20949 Assigned PCP 03/23/23 Herber Lopez MD [address] [place] [address] 04178 Assigned Surgical Provider 05/18/23 07/25/24 Makenzie Romano MD [address] [place] [address] 148104 parking lot supervisor & Neurology - Child & Adolescent Psychiatry 11/08/23 Shani Stephenson MD [address] [place] [address] [phone] Resident Psychiatry 11/08/23 Yomi Campos, PhD [address] [place] [address] 598604 Assigned Behavioral Health Provider 01/27/24 08/25/24 Ita Newton Specialty Vice President Underwriting 06/04/24 Kenya Jennings MD 420 [facility] 195 [place] [address] Plastic Surgery 06/04/24 Herber Lopez MD 420 [facility] 98 [place] [address] Assigned Dermatology Provider 07/26/24 Сергей Dumont [facility] Billing And Accounting Staff Assistant 08/13/24 Kenya Jennings MD 420 [facility] 195 [place] [address] Assigned Surgical Provider 08/26/24 Jesse Arvizu MD 5775 [place] [address] Assigned Behavioral Health Provider 08/26/24 09/24/24 Luis Dudley MD 240 [place], [place] 552234 Assigned Behavioral Health Provider 09/25/24 10/25/24 Carmen Cole PA-C 6[address] [facility] 103 [place], [place] 745065 Assigned Sleep Provider 09/25/24 Racheal Ng MD [address] [place] [phone] [place], [place] 751044 Assigned Behavioral Health Provider 10/26/24 documented as of this encounter
--- OUTSIDE RECORDS SUMMARY | 2024-10-28 19:16 | XMS_ITS | Encounter Summary ---
Author Organization [facility] Address [address] [place] [address] 56778 Care Team Providers Care Copra Processor Name Role Phone Cindy Ruiz Unavailable +[phone] Trevor Espino MD Unavailable +[phone] Melanie Boykin MD Unavailable +[phone] Jaci Whitlock APRN MASONRY INSTRUCTOR Unavailable + Yudy Mathews MD Primary Care Provider +[phone] Juan M Smith MD, Madhuri Unavailable +[phone] Doris Ricci MD Unavailable Yudy Mathews MD Unavailable +[phone] Antonette Castro PA-C Unavailable +[phone] Yudy Pompa MD Unavailable +[phone] Jessi Mcfadden MD Unavailable +[phone] Mary Carmen Rodriguez MD Unavailable + Herber Lopez MD Unavailable +[phone] Yomi Izquierdo DPM Unavailable +[phone] Torey Luna MD Primary Care Provider + [phone] Antonette Castro PA-C Unavailable +[phone] Torey Luna MD Unavailable +[phone] Herber Lopez MD Unavailable Maurilio Carlson MD Unavailable Herber Lopez MD Unavailable +[phone] Gloria Elizalde MD Unavailable +[phone] Smith Olena [facility] Unavailable Unavailable Maurilio Carlson MD Unavailable Mamadou Bowie MD Primary Care Provider [phone] Mamadou Bowie MD Unavailable Herber Lopez MD Unavailable +[phone] Makenzie Romano MD Unavailable +[phone] Shani Stephenson MD Unavailable +[phone] Yomi Campos PhD Unavailable +[phone] Ita Newton Unavailable Unavailable Kenya Jennings MD Unavailable + [phone] Herber Lopez MD Unavailable +[phone] Сергей Dumont [facility] Unavailable Unavailable Kenya Jennings MD Unavailable + [phone] Jesse Arvizu MD Unavailable Luis Dudley MD Unavailable +[phone] Carmen Cole PA-C Unavailable +[phone] Racheal Ng MD Unavailable [phone] Encounter Details Date Type Department Care Team (Late st Contact Info) Description 01/12/2021 [facility] [facility] Internal Medicine [place] [id number] [facility] 4th [place] [address] Yudy Mathews MD [facility] [place] [address] Social History Tobacco Use Types Packs/Day Years Used Date Smoking Tobacco: Never Smokeless Tobacco: Never Alcohol Use Standard Drinks/Week Comments No 0 (1 standard drink = 0.6 oz pur e alcohol) PHQ-2 Answer Date Recorded PHQ-2 Total Score (Adult) - Positive if 3 or more points; Administer PHQ-9 if positive 1 12/20/2020 Comments No Sex and Gender Information Value Date Recorded Sex Assigned at Female 11/14/2020 10:33 PM CDT Legal Sex Female 3:58 AM FEED MILLER Gender Identity other 11/14/2020 10:33 PM CDT Sexual Orientation Lesbian 06/22/2019 4: 20 AM FEED MILLER documented as of this encounter Plan of Treatment Upcoming Encounters Date Type Department Care Team (Latest Contact Info) Description 10/29/2024 11:00 AM CDT Virtual Visit [facility]icians [facility] [address] [place] [phone] 11/23/2024 1:30 PM CDT Office Visit [facility] [place] [phone] [place] [phone] Melanie Boykin MD [address] [place] [address] 09488 Gloria Elizalde MD [address] [place] [address] [phone] 12/03/2024 3:00 PM CDT Office Visit [facility] Psychiatry [facility] [address] [place] [phone] Jesse Arvizu MD [address] [place] [address] 664[address] 12/15/2024 11:40 AM CDT Ancillary Procedure [facility] [address] 1st [place] [phone] Yudy Pompa MD [address] [place] [address] 450335 12/22/2024 11:40 AM CDT [facility] [address] [place] [address] [phone] Yudy Pompa MD [address] [place] [address] [phone] 02/22/2025 12:30 PM CDT Office Visit [facility] [address] [phone] Kenya Jennings MD [address] [place] [address] 20261 03/12/2025 1:00 PM FEED MILLER Office Visit [facility] Internal Medicine [address] [phone] Mamadou Bowie MD [address] [place] [address] 816185 03/23/2025 8:00 AM FEED MILLER Hospital Encounter [facility]Op [facility] [address] [place] [address] [phone] Kenya Jennings MD [address] [place] [address] 56014 03/23/2025 8:00 AM FEED MILLER - 03/23/2025 12:05 PM FEED MILLER Surgery [facility] [address] [place] [address] [phone] Kenya Jennings MD [address] [place] [address] 659315 MASTECTOMY, BILATERAL, SIMPLE, NO nipple grafts. OnQ 03/30/2025 10:00 AM FEED MILLER Office Visit [facility] [address] [phone] Lynn Parks APRN MASONRY INSTRUCTOR [address] [place] [address] 27221 04/16/2025 1:00 PM FEED MILLER Office Visit [facility] Internal Medicine [address] 4th [place] [phone] Mamadou Bowie MD [address] [place] [address] 95323 05/03/2025 4:00 PM FEED MILLER Office Visit [facility] [address] 4th [place] [phone] Kenya Jennings MD [address] [place] [address] 195 [place], [place] 011785 08/17/2025 12:15 PM CDT Office Visit [facility] [address] 3rd [place] [phone] Herber Lopez MD [address] [place] [address] 98 [place], [place] 130115 Scheduled Procedures Name Priority Associated Diagnoses Date/Ti me MASTECTOMY, BILATERAL, FOR GENDER AFFIRMATION Gender dysphoria in adult 03/23/2025 8:00 AM FEED MILLER documented as of this encounter Visit Diagnoses Not on filedocumented in this encounter Additional Health Concerns Assessment Noted Time PHQ-9 Depression Total Score: 5 12/22/19 21 7:03 AM CDT documented as of this encounter Care Teams Copra Processor Relationship Specialty Start Date End Date Yudy Mathews MD [address] [place] [address] 395 [place], [place] [phone] PCP - General Internal Medicine 10/17/18 04/18/21 Torey Luna MD [address] [place] [address] [phone] PCP - General Internal Medicine 04/19/21 03/17/23 Mamadou Bowie MD [address] [place] [address] 643175 PCP - General 03/18/23 [address] Ru[place] [address] [place] [address] Resident Internal Medicine 12/07/14 Trevor Espino MD [address] [place] [address] [phone] Urology 05/16/16 Melanie Boykin MD [address] [place] [address] 749114 pathology tech 12/10/16 11/07/23 Jaci Whitlock APRN MASONRY INSTRUCTOR [address] [place] [address] 395 [place], [place] 550845 Nurse Practitioner - Women's Health 12/14/16 Shanelle Mcgowan MD [address] [place] [address] 414455 Assigned Surgical Provider 02/26/20 07/29/21 Doris Ricci MD [facility] & [address] [address] Physician Internal Medicine 07/11/20 Yudy Mathews MD [facility] [place], [place] 165287 Assigned PCP 07/25/20 04/22/21 Antonette Castro PA-C [address] [place] [address] 32221 Assigned Heart and Vascular Provider 07/20/20 04/08/21 Yudy Pompa MD [address] [place] [address] 800075 Assigned Cancer Care Provider 08/21/20 Jessi Mcfadden MD [address] [place] [address] F282/2A [place], [place] 320124 Resident Psychiatry 11/08/20 12/23/22 Mary Carmen Rodriguez MD [address] [place] [address] 007315 Dermatology 11/09/20 Herber Lopez MD [address] [place] [address] [phone] Dermapathology 11/09/20 Yomi Izquierdo DPM [address] [facility] [address] [place] [address] Assigned Musculoskeletal Provider 12/04/20 06/08/22 Antonette Castro PA-C [address] [place] [address] 557295 Assigned Gastroenterology Provider 04/09/21 07/08/21 Torey Luna MD [address] [place] [address] 26211 Assigned PCP 04/23/21 03/22/23 Herber Lopez MD [address] [place] [address] 24166 Assigned Surgical Provider 07/30/21 11/17/21 Maurilio Carlson MD [address] [place] [address] 04401 Assigned Surgical Provider 11/18/21 11/23/22 Herber Lopez MD [address] [place] [address] 30160 Assigned Surgical Provider 11/24/22 12/21/22 Gloria Elizalde MD [address] [place] [address] 32845 Resident 12/24/22 Olena Smith PRODUCTION PROOFREADER Specialty Supervisor Building Maintenance Beach Attendant - Clinical 12/25/22 01/03/23 [place] [address] [place] [address] Assigned Surgical Provider 12/22/22 05/17/23 Mamadou Bowie MD [address] [place] [address] 26889 Assigned PCP 03/23/23 Herber Lopez MD [address] [place] [address] 99482 Assigned Surgical Provider 05/18/23 07/25/24 Makenzie Romano MD [address] [phone] [place] [address] pathology tech & Neurology - Child & Adolescent Psychiatry 11/08/23 Shani Stephenson MD 420 [facility] [place], [place] [address] Resident Psychiatry 11/08/23 Yomi Campos, PhD [facility] [place] [address] F256 [place], [place] 103874 Assigned Behavioral Health Provider 01/27/24 08/25/24 Ita Newton Specialty Supervisor Building Maintenance 06/04/24 Kenya Jennings MD 420 [facility] 195 [place], [place] 512855 Plastic Surgery 06/04/24 Herber Lopez MD 420 [facility] 98 [place], [place] 079255 Assigned Dermatology Provider 07/26/24 Сергей Dumont [facility] Beach Attendant 08/13/24 Kenya Jennings MD [address] [facility] 195 [place], [place] 194625 Assigned Surgical Provider 08/26/24 Jesse Arvizu MD 57[address] [place] [address] Assigned Behavioral Health Provider 08/26/24 09/24/24 Luis Dudley MD [address] [place] [address] Assigned Behavioral Health Provider 09/25/24 10/25/24 Carmen Cole PA-C [address] [facility] [address] [place] [address] Assigned Sleep Provider 09/25/24 Racheal Ng MD [address] [facility] [address] F[address] [place], [place] 365604 Assigned Behavioral Health Provider 10/26/24 documented as of this encounter
--- OUTSIDE RECORDS SUMMARY | 2024-10-28 19:16 | XMS_ITS | Encounter Summary ---
Author Organization [facility] Address [address] [place] [address] 17810 Care Team Providers Care Senior Billing Consultant Name Role Phone Cindy Ruiz Unavailable [phone] Trevor Espino MD Unavailable +[phone] Melanie Boykin MD Unavailable [phone] Jaci Whitlock APRN DAY HABILITATION SUPERVISOR Unavailable + Yudy Mathews MD Primary Care Provider [phone] Juan M Smith MD, Madhuri Unavailable +[phone] Doris Ricci MD Unavailable Yudy Mathews MD Unavailable +[phone] Antonette Castro PA-C Unavailable +[phone] Yudy Pompa MD Unavailable +[phone] Jessi Mcfadden MD Unavailable +[phone] Mary Carmen Rodriguez MD Unavailable + Herber Lopez MD Unavailable +[phone] Yomi Izquierdo DPM Unavailable +[phone] Torey Luna MD Primary Care Provider + [phone] Antonette Castro PA-C Unavailable +[phone] Torey Luna MD Unavailable Herber Lopez MD Unavailable Maurilio Carlson MD Unavailable Herber Lopez MD Unavailable +[phone] Gloria Elizalde MD Unavailable +[phone] SmithOlena henry [facility] Unavailable Unavailable Maurilio Carlson MD Unavailable Mamadou Bowie MD Primary Care Provider [phone] Mamadou Bowie MD Unavailable Herber Lopez MD Unavailable +[phone] Makenzie Rmoano MD Unavailable +[phone] Shani Stephenson MD Unavailable +[phone] Yomi Campos PhD Unavailable +[phone] Ita Newton Unavailable Unavailable Kenya Jennings MD Unavailable +[phone] Herber Lopez MD Unavailable +[phone] Сергей Dumont [facility] Unavailable Unavailable Kenya Jennings MD Unavailable +[phone] Jesse Arvizu MD Unavailable Luis Dudley MD Unavailable +[phone] Carmen Cole PA-C Unavailable +[phone] Racheal Ng MD Unavailable [phone] Encounter Details Date Type Department Care Team (Late st Contact Info) Description 12/27/2020 MyC Medical Advice [facility] Cancer Clinic [address] [place] [phone] Willow Schwarz, RN Social History Tobacco Use Types Packs/Day [...] PM CDT Legal Sex Female 3:58 AM BILINGUAL CUSTOMER SERVICE Gender Identity other 11/14/2020 10:33 PM CDT Sexual Orientation Lesbian 06/22/2019 4: 20 AM BILINGUAL CUSTOMER SERVICE COVID-19 Exposure Response Date Recorded In the last month, have you been in contact with someone who was confirmed or suspected to have Coronavirus / COVID-19? No / Unsure 12/01/2020 10:10 AM CDT documented as of this encounter Plan of Treatment Upcoming Encounters Date Type Department Care Team (Latest Contact Info) Description 10/29/2024 11:00 AM CDT Virtual Visit [facility] [address] [place] [address] [phone] 11/23/2024 1:30 PM CDT Office Visit [facility] [address] [phone] Melanie Boykin MD [address] [place] [address] 668404 Gloria Elizalde MD [address] [place] [address] 456635 12/03/2024 3:00 PM CDT Office Visit [facility] [address] [place] [phone] Jesse Arvizu MD [address] [place] [address] 525[address] 12/15/2024 11:40 AM CDT Ancillary Procedure [facility] CT Clinic [address] [phone] Yudy Pompa MD [address] [place] [address] [phone] 12/22/2024 11:40 AM CDT Oncology Visit [facility] Cancer Clinic [address] [place] [address] [phone] Yudy Pompa MD [address] [place] [address] 56338 02/22/2025 12:30 PM CDT Office Visit [facility] [address] [phone] Kenya Jennings MD [address] [place] [address] [phone] 03/12/2025 1:00 PM BILINGUAL CUSTOMER SERVICE Office Visit [facility] Internal Medicine [address] [phone] Mamadou Bowie MD [address] [place] [address] 997[address] 03/23/2025 8:00 AM BILINGUAL CUSTOMER SERVICE Hospital Encounter [facility] PeriOp Services [address] [place] [address] [phone] Kenya Jennings MD [address] [place] [address] 26595 03/23/2025 8:00 AM BILINGUAL CUSTOMER SERVICE - 03/23/2025 12:05 PM BILINGUAL CUSTOMER SERVICE Surgery [facility] [address] [place] [address] [phone] Kenya Jennings MD [address] [place] [address] [phone] MASTECTOMY, BILATERAL, SIMPLE, NO nipple grafts. OnQ 03/30/2025 10:00 AM BILINGUAL CUSTOMER SERVICE Office Visit [facility] [address] [phone] Kasey JUSTIN BaileyN DAY HABILITATION SUPERVISOR [address] [place] [address] 957615 04/16/2025 1:00 PM BILINGUAL CUSTOMER SERVICE Office Visit [facility] Internal Medicine [address] 4th [place] [phone] Mamadou Bowie MD [address] [place] [address] 49769 05/03/2025 4:00 PM BILINGUAL CUSTOMER SERVICE Office Visit [facility] [address] [phone] Kenya Jennings MD [address] [place] [address] 195 [place], [place] 863825 08/17/2025 12:15 PM CDT Office Visit [facility] [address] 3rd [place] [phone] Herber Lopez MD [address] [place] [address] 98 [place], [place] 263405 Scheduled Procedures Name Priority Associated Diagnoses Date/Ti me MASTECTOMY, BILATERAL, FOR GENDER AFFIRMATION Gender dysphoria in adult 03/23/2025 8:00 AM BILINGUAL CUSTOMER SERVICE documented as of this encounter Visit Diagnoses Not on filedocumented in this encounter Additional Health Concerns Assessment Noted Time PHQ-9 Depression Total Score: 5 12/22/19 21 7:03 AM CDT documented as of this encounter Care Teams Senior Billing Consultant Relationship Specialty Start Date End Date Yudy Mathews MD [address] [place] [address] 395 [place] [address] PCP - General Internal Medicine 10/17/18 04/18/21 Torey Luna MD [facility] [address] [address] PCP - General Internal Medicine 04/19/21 03/17/23 Mamadou Bowie MD [address] [place] [address] 29400 PCP - General 03/18/23 Cindy Ruiz [place] [address] Resident Internal Medicine 12/07/14 Trevor Espino MD [address] [place] [address] 85422 Urology 05/16/16 Melanie Boykin MD [address] [place] [address] 20942 slime plant operator helper 12/10/16 11/07/23 Jaci Whitlock APRN DAY HABILITATION SUPERVISOR [address] [place] [address] Nurse Practitioner - Women's Health 12/14/16 Shanelle Mcgowan MD [address] [place] [address] 65231 Assigned Surgical Provider 02/26/20 07/29/21 Doris Ricci MD [address] [address] Physician Internal Medicine 07/11/20 Yudy Mathews MD [facility] [address] [place] [address] Assigned PCP 07/25/20 04/22/21 Antonette Castro PA-C 909 [place] [address] Assigned Heart and Vascular Provider 07/20/20 04/08/21 Yudy Pompa MD [address] [place], [place] 243405 Assigned Cancer Care Provider 08/21/20 Jessi Mcfadden MD 2450 [facility] F282/2A [place], [place] 954014 Resident Psychiatry 11/08/20 12/23/22 Mary Carmen Rodriguez MD [address] 549405 Dermatology 11/09/20 Herber Lopez MD [address] [phone] Dermapathology 11/09/20 Yomi Izquierdo DPM [address] [facility] [address] [place], [place] 269157 Assigned Musculoskeletal Provider 12/04/20 06/08/22 Antonette Castro PA-C 9 [place] [address] Assigned Gastroenterology Provider 04/09/21 07/08/21 Torey Luna MD [address] [place] [address] 44268 Assigned PCP 04/23/21 03/22/23 Herber Lopez MD [address] [place] [address] 38499 Assigned Surgical Provider 07/30/21 11/17/21 Maurilio Carlson MD [address] [place] [address] 523905 Assigned Surgical Provider 11/18/21 11/23/22 Herber Lopez MD [address] [place] [address] 47914 Assigned Surgical Provider 11/24/22 12/21/22 Gloria Elizalde MD [address] [place] [address] 97629 Resident 12/24/22 Olena Smith [facility] Specialty Wind Turbine Installer Opener Verifier Packer Customs - Clinical 12/25/22 01/03/23 [place] [address] [place] [address] Assigned Surgical Provider 12/22/22 05/17/23 Mamadou Bowie MD [address] [place] [address] 46414 Assigned PCP 03/23/23 Herber Lopez MD [address] [place] [address] 46986 Assigned Surgical Provider 05/18/23 07/25/24 Makenzie Romano MD [address] [place] [address] 55454 slime plant operator helper & Neurology - Child & Adolescent Psychiatry 11/08/23 Shani Stephenson MD [address] [place] [address] 420795 Resident Psychiatry 11/08/23 Yomi Campos, PhD [address] [place] [address] 55454 Assigned Behavioral Health Provider 01/27/24 08/25/24 Ita Newton Specialty Wind Turbine Installer 06/04/24 Kenya Jennings MD [address] [place] [address] 394155 Plastic Surgery 06/04/24 Herber Lopez MD [address] [place] [address] 878745 Assigned Dermatology Provider 07/26/24 Сергей Dumont [facility] Opener Verifier [employer] 08/13/24 Kenya Jennings MD [address] [place] [address] 40083 Assigned Surgical Provider 08/26/24 Jesse Arvizu MD [address] [place], [place] 377476 Assigned Behavioral Health Provider 08/26/24 09/24/24 Luis Dudley MD [address] [place] [address] [phone] Assigned Behavioral Health Provider 09/25/24 10/25/24 Carmen Cole PA-C 6[address] [facility] VA[address] [place] [address] Assigned Sleep Provider 09/25/24 Racheal Ng MD [address] [place] [address] [place] [address] Assigned Behavioral Health Provider 10/26/24 documented as of this encounter
--- OUTSIDE RECORDS SUMMARY | 2024-10-28 19:16 | XMS_ITS | Encounter Summary ---
Author Organization [place] Address [address] [place] [address] 30686 Care Team Providers Care Interventional Radiology Technologist Name Role Phone Cindy Ruiz Unavailable [phone] Trevor Espino MD Unavailable [phone] Melanie Boykin MD Unavailable [phone] Jaci Whitlock APRN CHEMISTRY PHYSICS TEACHER Unavailable + Doris Ricci MD Unavailable Yudy Pompa MD Unavailable [phone] Mary Carmen Rodriguez MD Unavailable + Herber Lopez MD Unavailable [phone] Torey Luna MD Primary Care Provider [phone] Torey Luna MD Unavailable [phone] Gloria Elizalde MD Unavailable [phone] Olena Smith Unavailable Unavailable Maurilio Carlson MD Unavailable Mamadou Bowie MD Primary Care Provider [phone] Mamadou Bowie MD Unavailable Herber Lopez MD Unavailable [phone] Makenzie Romano MD Unavailable [phone] Shani Stephenson MD Unavailable [phone] Yomi Campos PhD Unavailable [phone] Ita Newton Unavailable Unavailable Kenya Jennings MD Unavailable [phone] Herber Lopez MD Unavailable [phone] MejiaMeño [facility] Unavailable Unavailable Kenya Jennings MD Unavailable [phone] Jesse Arvizu MD Unavailable Luis Dudley MD Unavailable [phone] Carmen Cole PA-C Unavailable +[phone] Racheal Ng MD Unavailable [phone] Encounter Details Date Type Department Care Team (Late st Contact Info) Description 12/25/2022 MyC Medical Advice [facility] [place] [id number] Formerly named [facility] [address] [phone] [facility] Social History Tobacco Use Types Packs/Day Years Used Date Smoking Tobacco: Never Smokeless Tobacco: Never Alcohol Use Standard Drinks/Week Comments No 0 (1 standard drink = 0.6 oz pur e alcohol) PHQ-2 Answer Date Recorded PHQ-2 Score 2 12/24/2022 Comments No Sex and Gender Information Value Date Recorded Sex Assigned at Female 11/14/2020 10:33 PM CDT Legal Sex Female 3:58 AM SKID WRAPPER Gender Identity other 11/14/2020 10:33 PM CDT Sexual Orientation Lesbian 06/22/2019 4: 20 AM SKID WRAPPER COVID-19 Exposure Response Date Recorded In the last 10 days, have yo u been in contact with someone who was confirmed or suspected to have Coronavirus/COVID-19? No / Unsure 12/26/2022 3:27 PM CDT documented as of this encounter Plan of Treatment Upcoming Encounters Date Type Department Care Team (Latest Contact Info) Description 10/29/2024 11:00 AM CDT Virtual Visit [facility] [address] [facility] [address] [place] [address] 11/23/2024 1:30 PM CDT Office Visit [facility] [address] [phone] Melanie Boykin MD 2450 [place], [place] [address] Gloria Elizalde MD [address] [place] [address] [phone] 12/03/2024 3:00 PM CDT [facility] 5775 [facility] 255 [place] [phone] Jesse Arvizu MD 5775 [place], [place] 596716 12/15/2024 11:40 AM CDT Ancillary Procedure [facility] Imaging [facility] CT Clinic [address] [place] [phone] Yudy Pompa MD [address] [place] [address] 074155 12/22/2024 11:40 AM CDT Oncology Visit [facility] [address] [place] [phone] Yudy Pompa MD [address] [place] [address] 857335 02/22/2025 12:30 PM CDT Office Visit [facility] Plastic and Reconstructive Surgery Clinic [address] [place] [phone] Kenya Jennings MD [address] [place] [address] 444505 03/12/2025 1:00 PM SKID WRAPPER Office Visit [facility] Internal Medicine [place] [address] [phone] Mamadou Bowie MD [address] [place] [address] 03/23/2025 8:00 AM SKID WRAPPER Hospital Encounter [facility] PeriOp Services [address] [place] [address] [phone] Kenya Jennings MD [address] [place] [address] 03/23/2025 8:00 AM SKID WRAPPER - 03/23/2025 12:05 PM SKID WRAPPER Surgery [facility] [address] [place] [address] [phone] Kenya Jennings MD [address] [place] [address] [phone] MASTECTOMY, BILATERAL, SIMPLE, NO nipple grafts. OnQ 03/30/2025 10:00 AM SKID WRAPPER Office Visit [facility] [address] [phone] Lynn Parks APRN [address] [address] 04/16/2025 1:00 PM SKID WRAPPER Office Visit [facility] Internal Medicine [address] [phone] Mamadou Bowie MD [address] [place] [address] 05/03/2025 4:00 PM SKID WRAPPER Office Visit [facility] [address] [phone] Kenya Jennings MD [address] [place] [address] 08/17/2025 12:15 PM CDT Office Visit [facility] Dermatology Clinic [address] [place] [phone] Herber Lopez MD 420 [facility] 98 [place], [place] 999355 Scheduled Procedures Name Priority Associated Diagnoses Date/Ti me MASTECTOMY, BILATERAL, FOR GENDER AFFIRMATION Gender dysphoria in adult 03/23/2025 8:00 AM SKID WRAPPER documented as of this encounter Visit Diagnoses Not on filedocumented in this encounter Additional Health Concerns Assessment Noted Time PHQ-9 Depression Total Score: 5 04/04/20 23 7:17 AM SKID WRAPPER documented as of this encounter Care Teams Interventional Radiology Technologist Relationship Specialty Start Date End Date Torey Luna MD [address] [place] [address] [phone] PCP - General Internal Medicine 04/19/21 03/17/23 Mamadou Bowie MD [address] [place] [address] [phone] PCP - General 03/18/23 Cindy Ruiz [place] [place] [address] Resident Internal Medicine 12/07/14 Trevor Espino MD [address] [place] [address] [phone] Urology 05/16/16 Melanie Boykin MD [address] [place] [address] clerk 12/10/16 11/07/23 Jaci Whitlock APRN CNP [address] [address] Nurse Practitioner - Women's Health 12/14/16 Doris Ricci MD [facility] & [address] [address] Physician Internal Medicine 07/11/20 Yudy Pompa MD [address] [place] [address] Assigned Cancer Care Provider 08/21/20 Mary Carmen Rodriguez MD [address] [place] [address] 98 [place], [place] 000875 Dermatology 11/09/20 Herber Lopez MD [address] [place] [address] Dermapathology 11/09/20 Torey Luna MD [address] [place] [address] Assigned PCP 04/23/21 03/22/23 Gloria Elizalde MD [address] [place] [address] [phone] Resident 12/24/22 Olena Smith LSW Specialty Shipper Customer Success Intern - Clinical 12/25/22 01/03/[address] [place] [address] [place], [place] [address] [phone] Assigned Surgical Provider 12/22/22 05/17/23 Mamadou Bowie MD [address] [place] [address] 87556 Assigned PCP 03/23/23 Herber Lopez MD [address] [place] [address] 11529 Assigned Surgical Provider 05/18/23 07/25/24 Makenzie Romano MD [address] [place] [address] & Neurology - Child & Adolescent Psychiatry 11/08/23 Shani Stephenson MD [address] [place] [address] Resident Psychiatry 11/08/23 Yomi Cmapos, PhD [address] [place] [address]48 Assigned Behavioral Health Provider 01/27/24 08/25/24 Ita Newton Specialty Shipper 06/04/24 Kenya Jennings MD [address] [place] [address] 46645 Plastic Surgery 06/04/24 Herber Lopez MD [address] [place] [address] 12330 Assigned Dermatology Provider 07/26/24 Сергей Dumont [facility] Customer Success Intern 08/13/24 Kenya Jennings MD [address] [place] [address], [place] [address] Assigned Surgical Provider 08/26/24 Jesse Arvizu MD 5775 [place] [address] Assigned Behavioral Health Provider 08/26/24 09/24/24 Luis Dudley MD 240 [place], [place] 889544 Assigned Behavioral Health Provider 09/25/24 10/25/24 Carmen Cole PA-C 6[address] [facility] MAINE 103 [place], [place] 225805 Assigned Sleep Provider 09/25/24 Racheal Ng MD 2450 [facility] F282 [place], [place] [phone] Assigned Behavioral Health Provider 10/26/24 documented as of this encounter
--- OUTSIDE RECORDS SUMMARY | 2024-10-28 19:16 | XMS_ITS | Encounter Summary ---
Author Organization [place] Address [address] [place] [address] Care Team Providers Care Brass Buffer Name Role Phone Cindy Ruiz Unavailable [phone] Trevor Espino MD Unavailable [phone] Jaci Whitlock APRN SAMPLE MAKER HAND Unavailable + Doris Ricci MD Unavailable Yudy Pompa MD Unavailable [phone] Mary Carmen Rodriguez MD Unavailable + Herber Lopez MD Unavailable [phone] Gloria Elizalde MD Unavailable [phone] Mamadou Bowie MD Primary Care Provider [phone] Mamadou Bowie MD Unavailable Makenzie Romano MD Unavailable [phone] Shani Stephenson MD Unavailable Ita Newton Unavailable Unavailable Kenya Jennings MD Unavailable [phone] Herber Lopez MD Unavailable [phone] Сергей Dumont [facility] Unavailable Unavailable Kenya Jennings MD Unavailable Jesse Arvizu MD Unavailable Luis Dudley MD Unavailable [phone] Carmen Cole PA-C Unavailable [phone] Racheal Ng MD Unavailable [phone] Encounter Details Date Type Department Care Team (Late st Contact Info) Description 08/28/2024 MyC Medical Advice [facility] [address] [place] [address] [address] [place] [phone] Kimberly Guo, DEPOSITION REPORTER Social History Tobacco Use Types Packs/Day Years [...] PHQ-2 Answer Date Recorded PHQ-2 Score 3 07/20/2024 [facility] [place] of Occupat ional Health - Occupational Stress [...] PM CDT Legal Sex Female 3:58 AM AUTO GLASS WORKER Gender Identity other 11/14/2020 10:33 PM CDT Sexual Orientation Lesbian 06/22/2019 4: 20 AM AUTO GLASS WORKER documented as of this encounter Plan of Treatment Upcoming Encounters Date Type Department Care Team (Latest Contact Info) Description 10/29/2024 11:00 AM CDT [facility] [address] [facility] [address] [place] [phone] 11/23/2024 1:30 PM CDT Office Visit [facility] Mental Health & Addiction [address] [phone] Melanie Boykin MD 5378 [place], [place] [phone] Gloria Elizalde MD [address] [place] [address] 446835 12/03/2024 3:00 PM CDT [facility] [address] [facility] [address] [place] [phone] Jesse Arvizu MD 5775 [place] [address] 12/15/2024 11:40 AM CDT Ancillary Procedure [facility] Imaging Center CT Clinic [address] [phone] Yudy Pompa MD [address] [place] [address] 655055 12/22/2024 11:40 AM CDT Oncology Visit [facility] [address] [place] [address] [phone] Yudy Pompa MD [address] [place] [address] 023485 02/22/2025 12:30 PM CDT Office Visit [facility] Plastic and Reconstructive Surgery Clinic [address] [place] [phone] Kenya Jennings MD [address] [place] [address] 823035 03/12/2025 1:00 PM AUTO GLASS WORKER Office Visit [facility] Internal Medicine [address] [phone] Mamadou Bowie MD [address] [place] [address] 812455 03/23/2025 8:00 AM AUTO GLASS WORKER Hospital Encounter [facility] PeriOp Services [facility] [place] [phone] Kenya Jennings MD [address] [place] [address] 03/23/2025 8:00 AM AUTO GLASS WORKER - 03/23/2025 12:05 PM AUTO GLASS WORKER Surgery [facility] PeriOp Services [facility] [place] [phone] Kenya Jennings MD [address] [place] [address] 260445 MASTECTOMY, BILATERAL, SIMPLE, NO nipple grafts. OnQ 03/30/2025 10:00 AM AUTO GLASS WORKER Office Visit [facility] Clinic [address] [phone] Lynn Parks APRN [address] [address] 04/16/2025 1:00 PM AUTO GLASS WORKER Office Visit [facility] Internal Medicine [address] [phone] Mamadou Bowie MD [address] [place] [address] 05/03/2025 4:00 PM AUTO GLASS WORKER Office Visit [facility] Clinic [address] [place] [phone] Kenya Jennings MD [address] [place] [address] [phone] 08/17/2025 12:15 PM CDT Office Visit [facility] Dermatology Clinic [address] [place] [phone] Herber Lopez MD 420 [facility] 98 [place], [place] 146705 Scheduled Procedures Name Priority Associated Diagnoses Date/Ti me MASTECTOMY, BILATERAL, FOR GENDER AFFIRMATION Gender dysphoria in adult 03/23/2025 8:00 AM AUTO GLASS WORKER documented as of this encounter Visit Diagnoses Not on filedocumented in this encounter Additional Health Concerns Assessment Noted Time PHQ-9 Depression Total Score: 9 07/20/19 25 10:37 PM CDT documented as of this encounter Care Teams Brass Buffer Relationship Specialty Start Date End Date Mamadou Bowie MD [address] [place] [address] 158265 PCP - General 03/18/23 C[address] Ruiz [address] [place], [place] 309750 Resident Internal Medicine 12/07/14 Trevor Espino MD [address] [place] [address] 398175 Urology 05/16/16 Jaci Whitlock APRN SAMPLE MAKER HAND 420 [facility] 395 [place], [place] 405285 Nurse Practitioner - Women's Health 12/14/16 Doris Ricci MD [facility] 2000 [place] [address] Physician Internal Medicine 07/11/20 Yudy Pompa MD [address] [place] [address] 835725 Assigned Cancer Care Provider 4/18/21 Mary Carmen Rodriguez MD 420 [facility] 98 [place], [place] 157495 Dermatology 11/09/20 Herber Lopez MD 420 [facility] 98 [place], [place] 415015 Dermapathology 11/09/20 Gloria Elizalde MD [address] [place] [address] [phone] Resident 12/24/22 Mamadou Bowie MD [address] [place] [address] 978335 Assigned PCP 03/23/23 Makenzie Romano MD [address] [place] [address] 144694 supermarket manager & Neurology - Child & Adolescent Psychiatry 11/08/23 Shani Stephenson MD 420 [place], [place] 845075 Resident Psychiatry 11/08/23 Ita Newton Specialty Firestopper Installer 06/04/24 Kenya Jennings MD [address] 255155 Plastic Surgery 06/04/24 Herber Lopez MD 420 [facility] 98 [place] [address] Assigned Dermatology Provider 07/26/24 Сергей Dumont [facility] Litigation Legal Assistant 08/13/24 Kenya Jennings MD 420 [facility] 195 [place], [place] 208645 Assigned Surgical Provider 08/26/24 Jesse Arvizu MD 5775 [place], [place] 266426 Assigned Behavioral Health Provider 08/26/24 09/24/24 Luis Dudley MD [address] [facility] [place] [phone] Assigned Behavioral Health Provider 09/25/24 10/25/24 Carmen Cole PA-C 6363 [facility] [address] 103 [place], [place] 558525 Assigned Sleep Provider 09/25/24 Racheal Ng MD 2450 [facility] F[address] [place] [address] Assigned Behavioral Health Provider 10/26/24 documented as of this encounter
--- OUTSIDE RECORDS SUMMARY | 2024-10-28 19:16 | XMS_ITS | Encounter Summary ---
Author Organization [place] Address [address] [place] [address] 34904 Care Team Providers Care Crew Team Member Name Role Phone Cindy Ruiz Unavailable [phone] Trevor Espino MD Unavailable +[phone] Melanie Boykin MD Unavailable [phone] Jaci Whitlock APRN YARN WEIGHT AND STRENGTH TESTER Unavailable + Yudy Mathews MD Primary Care Provider [phone] Juan M Smith MD, Madhuri Unavailable +[phone] Doris Ricci MD Unavailable +[phone] Yudy Mathews MD Unavailable +[phone] Antonette Castro PA-C Unavailable +[phone] Yudy Pompa MD Unavailable +[phone] Jessi Mcfadden MD Unavailable +[phone] Mary Carmen Rodriguez MD Unavailable + Herber Lopez MD Unavailable +[phone] Yomi Izquierdo DPM Unavailable +[phone] Torey Luna MD Primary Care Provider + [phone] Antonette Castro PA-C Unavailable +[phone] Torey Luna MD Unavailable +[phone] Herber Lopez MD Unavailable [phone] Maurilio Carlson MD Unavailable Herber Lopez MD Unavailable +[phone] Gloria Elizalde MD Unavailable +[phone] SmithOlena henry [facility] Unavailable Unavailable Maurilio Carlson MD Unavailable Mamadou Bowie MD Primary Care Provider [phone] Mamadou Bowie MD Unavailable Herber Lopez MD Unavailable +[phone] Makenzie Romano MD Unavailable [phone] Shani Stephenson MD Unavailable +[phone] Yomi Campos PhD Unavailable +[phone] Ita Newton Unavailable Unavailable Kenya Jennings MD Unavailable +[phone] Herber Lopez MD Unavailable +[phone] Сергей Dumont [facility] Unavailable Unavailable Kenya Jennings MD Unavailable +[phone] Jesse Arvizu MD Unavailable Luis Dudley MD Unavailable +[phone] Carmen Cole PA-C Unavailable +[phone] Racheal Ng MD Unavailable +[phone] Encounter Details Date Type Department Care Team (Late st Contact Info) Description 04/06/2021 [facility] [place] [facility] [facility] [address] [address] Jessi Mcfadden MD 2450 [facility]. F282/2A [place] [address] Social History Tobacco Use Types [...] PM CDT Legal Sex Female 3:58 AM TIRE BUILDER HEAVY SERVICE Gender Identity other 11/14/2020 10:33 PM CDT Sexual Orientation Lesbian 06/22/2019 4: 20 AM TIRE BUILDER HEAVY SERVICE COVID-19 Exposure Response Date Recorded In the last month, have you been in contact with someone who was confirmed or suspected to have Coronavirus / COVID-19? No / Unsure 03/20/2021 1:09 PM TIRE BUILDER HEAVY SERVICE documented as of this encounter Plan of Treatment Upcoming Encounters Date Type Department Care Team (Latest Contact Info) Description 10/29/2024 11:00 AM CDT Virtual Visit [facility] [address] [place] [address] [phone] 11/23/2024 1:30 PM CDT Office Visit [facility] [place] [phone] [phone] Melanie Boykin MD [address] [place] [address] 819414 Gloria Elizalde MD [address] [place] [address] 329725 12/03/2024 3:00 PM CDT [facility] [address] [place] [address] [place] [address] [phone] Jesse Arvizu MD [address] [place] [address] 114606 12/15/2024 11:40 AM CDT Ancillary Procedure [facility] [address] [phone] Yudy Pompa MD [address] [place] [address] 04[address] 12/22/2024 11:40 AM CDT Oncology Visit [facility] [address] [place] [address] [phone] Yudy Pompa MD [address] [place] [address] 97697 02/22/2025 12:30 PM CDT Office Visit [facility] [address] [phone] Kenya Jennings MD [address] [place] [address] 723[address] 03/12/2025 1:00 PM TIRE BUILDER HE[employer] SERVICE Office Visit [facility] Internal Medicine [address] [phone] Mamadou Bowie MD [address] [place] [address] 324945 03/23/2025 8:00 AM TIRE BUILDER HEAVY SERVICE Hospital Encounter [facility] [address] [place] [address] [facility] [place] [phone] Kenya Jennings MD [address] [place] [address] 8[address] 03/23/2025 8:00 AM TIRE BUILDER HEAVY SERVICE - 03/23/2025 12:05 PM TIRE BUILDER HEAVY SERVICE Surgery [facility] [address] [place] [address] [place] [phone] Kenya Jennings MD [address] [place] [address] 90954 MASTECTOMY, BILATERAL, SIMPLE, NO nipple grafts. OnQ 03/30/2025 10:00 AM TIRE BUILDER HEAVY SERVICE Office Visit [facility] [address] [phone] Lynn Parks APRN CNP [address] [place] [address] 227945 04/16/2025 1:00 PM TIRE BUILDER HEAVY SERVICE Office Visit [facility] Internal Medicine [address] [phone] Mamadou Bowie MD [address] [place] [address] 099665 05/03/2025 4:00 PM TIRE BUILDER HEAVY SERVICE Office Visit [facility] [address] [phone] Kenya Jennings MD 420 [facility] 195 [place], [place] 762995 08/17/2025 12:15 PM CDT Office Visit [facility] [address] [phone] Herber Lopez MD 420 [facility] 98 [place], [place] 249855 Scheduled Procedures Name Priority Associated Diagnoses Date/Ti me MASTECTOMY, BILATERAL, FOR GENDER AFFIRMATION Gender dysphoria in adult 03/23/2025 8:00 AM TIRE BUILDER HEAVY SERVICE documented as of this encounter Visit Diagnoses Not on filedocumented in this encounter Additional Health Concerns Assessment Noted Time PHQ-9 Depression Total Score: 3 02/01/20 21 7:02 AM CDT documented as of this encounter Care Teams Crew Team Member Relationship Specialty Start Date End Date Yudy Mathews MD [address] [place] [address] 395 [place] [address] PCP - General Internal Medicine 10/17/18 04/18/21 Torey Luna MD [address] [place] [address] 060525 PCP - General Internal Medicine 04/19/21 03/17/23 Mamadou Bowie MD [address] [place] [address] 32348 PCP - General 03/18/23 Cindy Ruiz [place] [address] Resident Internal Medicine 12/07/14 Trevor Espino MD [address] [place] [address] 82436 Urology 05/16/16 Melanie Boykin MD [address] [place] [address] 765994 brokerage clerk 12/10/16 11/07/23 Jaci Whitlock APRN YARN WEIGHT AND STRENGTH TESTER [address] [place] [address] [phone] Nurse Practitioner - Women's Health 12/14/16 Shanelle Mcgowan MD [address] [place] [address] 412495 Assigned Surgical Provider 02/26/20 07/29/21 Doris Ricci MD [facility] & [address] [address] Physician Internal Medicine 07/11/20 Yudy Mathews MD [facility] [place] [address] Assigned PCP 07/25/20 04/22/21 Antonette Castro PA-C [address] [place] [address] 013[address] Assigned Heart and Vascular Provider 07/20/20 04/08/21 Yudy Pompa MD [address] [place] [address] 218015 Assigned Cancer Care Provider 08/21/20 Jessi Mcfadden MD [address] [place] [address] F282/2A [place] [address] Resident Psychiatry 11/08/20 12/23/22 Mary Carmen Rodriguez MD [address] [place] [address] 786665 Dermatology 11/09/20 Herber Lopez MD [address] [place] [address] 00599 Dermapathology 11/09/20 Yomi Izquierdo DPM 29482 [facility] 300 [place] [address] Assigned Musculoskeletal Provider 12/04/20 06/08/22 Antonette Castro PA-C [address] [place] [address] 21854 Assigned Gastroenterology Provider 04/09/21 07/08/21 Torey Luna MD [address] [place] [address] 64363 Assigned PCP 04/23/21 03/22/23 Herber Lopez MD [address] [place] [address] 03302 Assigned Surgical Provider 07/30/21 11/17/21 Maurilio Carlson MD [address] [place] [address] 28934 Assigned Surgical Provider 11/18/21 11/23/22 Herber Lopez MD [address] [place] [address] 71042 Assigned Surgical Provider 11/24/22 12/21/22 Gloria Elizalde MD [address] [place] [address] Resident 12/24/22 Olena Smith LSW Specialty Penetration Tester Bullet Casting Operator - Clinical 12/25/22 01/03/23 [place] [address] [place] [address] Assigned Surgical Provider 12/22/22 05/17/23 Mamadou Bowie MD [address] [place] [address] 50450 Assigned PCP 03/23/23 Herber Lopez MD 420 [facility] 98 [place] [address] Assigned Surgical Provider 05/18/23 07/25/24 Makenzie Romano MD 2450 [facility] F256 [place], [place] 365114 brokerage clerk & Neurology - Child & Adolescent Psychiatry 11/08/23 Shani Stephenson MD 420 [place] [address] Resident Psychiatry 11/08/23 Yomi Campos, PhD [address] [place] [address] [place] [address] 852974 Assigned Behavioral Health Provider 01/27/24 08/25/24 Ita Newton Specialty Penetration Tester 06/04/24 Kenya Jennings MD 420 [facility] 195 [place], [place] 259265 Plastic Surgery 06/04/24 Herber Lopez MD 420 [facility] 98 [place] [address] Assigned Dermatology Provider 07/26/24 Сергей Dumont [facility] Bullet Casting Operator 08/13/24 Kenya Jennings MD [address] [phone] Assigned Surgical Provider 08/26/24 Jesse Arvizu MD 5775 [place] [address] Assigned Behavioral Health Provider 08/26/24 09/24/24 Luis Dudley MD 240 [place], [place] 226994 Assigned Behavioral Health Provider 09/25/24 10/25/24 Carmen Cole PA-C 6363 [facility] MAINE 103 [place], [place] 276255 Assigned Sleep Provider 09/25/24 Racehal Ng MD 2450 [facility] F282 [place], [place] [phone] Assigned Behavioral Health Provider 10/26/24 documented as of this encounter
--- OUTSIDE RECORDS SUMMARY | 2024-10-28 19:16 | XMS_ITS | Encounter Summary ---
Author Organization [place] Address [address] [place] [address] 16416 Care Team Providers Care Conche Operator Name Role Phone Cindy Ruiz Unavailable Trevor Espino MD Unavailable [phone] Jaci Whitlock APRN WAREHOUSE SHIPPING SUPERVISOR Unavailable + Doris Ricci MD Unavailable [phone] Yudy Pompa MD Unavailable [phone] Mary Carmen Rodriguez MD Unavailable + Herber Lopez MD Unavailable +[phone] Gloria Elizalde MD Unavailable [phone] Mamadou Bowie MD Primary Care Provider [phone] Mamadou Bowie MD Unavailable Makenzie Romano MD Unavailable [phone] Shani Stephenson MD Unavailable Ita Newton Unavailable Unavailable Kenya Jennings MD Unavailable [phone] Herber Lopez MD Unavailable +[phone] Сергей Dumont [facility] Unavailable Unavailable Kenya Jennings MD Unavailable [phone] Jesse Arvizu MD Unavailable Luis Dudley MD Unavailable Carmen Cole PA-C Unavailable [phone] Racheal Ng MD Unavailable Encounter Details Date Type Department Care Team (Late st Contact Info) Description 09/01/2024 Orders Only [facility] - Surgical Specialties Service Line 4650 [place] [address] Kenya Jennings MD 420 [facility] 195 [place] [address] Gender dysphoria in adult (Primary Dx) Social History Tobacco Use Types [...] relatives? Three times a week 04/02/2024 Attends Jainism Services Not on file 04/02 Active Member of Clubs or Organizations Not on f ile 04/02/2024 Attends Club or Organization Meetings Not on jd e 04/02/2024 Marital Status Not on file 04/02/2024 PHQ-2 Answer Date Recorded PHQ-2 Score 4 09/04/2024 [facility] - Occupational Stress Questionnaire Answer Date Recorded [...] PM CDT Legal Sex Female 3:58 AM SCHOOL SPEECH THERAPIST Gender Identity other 11/14/2020 10:33 PM CDT Sexual Orientation Lesbian 06/22/2019 4: 20 AM SCHOOL SPEECH THERAPIST documented as of this encounter Plan of Treatment Upcoming Encounters Date Type Department Care Team (Latest Contact Info) Description 10/29/2024 11:00 AM CDT [facility] [address] [place] [address] 11/23/2024 1:30 PM CDT Office Visit [facility] Mental Health & Addiction [place] [phone] [address] [place] [phone] Melanie Boykin MD 2000 [place], [place] 747594 Gloria Elizalde MD [address] [place] [address] 806065 12/03/2024 3:00 PM CDT Office [facility] [address] [place] [phone] Jesse Arvizu MD 5775 [place], [place] [phone] 12/15/2024 11:40 AM CDT Ancillary Procedure [facility] Imaging Center [facility] Clinic [address] 1st [place] [phone] Yudy Pompa MD [address] [place] [address] 966245 12/22/2024 11:40 AM CDT Oncology Visit [facility] [address] [place] [address] [phone] Yudy Pompa MD [address] [place] [address] 672385 02/22/2025 12:30 PM CDT Office Visit [facility] Plastic [facility] Reconstructive Surgery Clinic [address] [place] [phone] Kenya Jennings MD [address] [place] [address] 966995 03/12/2025 1:00 PM SCHOOL SPEECH THERAPIST Office Visit [facility] Internal Medicine [address]th [place] [phone] Mamadou Bowie MD [address] [place] [address] 03/23/2025 8:00 AM SCHOOL SPEECH THERAPIST Hospital Encounter [facility] PeriOp Services [address] [place] [address] [facility] [place] [phone] Kenya Jennings MD [address] [place] [address] 551105 03/23/2025 8:00 AM SCHOOL SPEECH THERAPIST - 03/23/2025 12:05 PM SCHOOL SPEECH THERAPIST Surgery [facility] PeriOp Services [address] [place], [place] [address] [place] [phone] Kenya Jennings MD [address] [place] [address] 305505 MASTECTOMY, BILATERAL, SIMPLE, NO nipple grafts. OnQ 03/30/2025 10:00 AM SCHOOL SPEECH THERAPIST Office Visit [facility] Plastic [facility] Re[facility] Clinic [address] [phone] Lynn Parks APRN [address] [address] 04/16/2025 1:00 PM SCHOOL SPEECH THERAPIST Office Visit [facility] Internal Medicine [address] [phone] Mamadou Bowie MD [address] [place] [address] 059[address] 05/03/2025 4:00 PM SCHOOL SPEECH THERAPIST Office Visit [facility] [address] [phone] Kenya Jennings MD [address] [place] [address] 138785 08/17/2025 12:15 PM CDT Office Visit [facility] Dermatology Clinic [place] 909 [facility] 3rd [place] [phone] Herber Lopez MD 420 [facility] 98 [place] [address] Scheduled Procedures Name Priority Associated Diagnoses Date/Ti me MASTECTOMY, BILATERAL, FOR GENDER AFFIRMATION Gender dysphoria in adult 03/23/2025 8:00 AM SCHOOL SPEECH THERAPIST documented as of this encounter Visit Diagnoses Diagnosis Gender dysphoria in adult- Primary Gender dysphoria in adult documented in this encounter Additional Health Concerns Assessment Noted Time PHQ-9 Depression Total Score: 9 07/20/19 25 10:37 PM CDT documented as of this encounter Care Teams Conche Operator Relationship Specialty Start Date End Date Mamadou Bowie MD [address] [place] [address] 101505 PCP - General 03/18/23 Cindy Ruiz HUNTER [employer] [address] [place] [address] Resident Internal Medicine 12/07/14 Trevor Espino MD [address] [place] [address] 63672 Urology 05/16/16 Jaci Whitlock APRN WAREHOUSE SHIPPING SUPERVISOR [address] [place] [address] 395 [place], [place] 398945 Nurse Practitioner - Women's Health 12/14/16 Doris Ricci MD [facility] & [address] [address] Physician Internal Medicine 07/11/20 Yudy Pompa MD [address] [place] [address] 474165 Assigned Cancer Care Provider 08/21/20 Mary Carmen Rodriguez MD [address] [place] [address] 324745 Dermatology 11/09/20 Herber Lopez MD [address] [place] [address] 849055 Dermapathology 11/09/20 Gloria Elizalde MD [address] [place] [address] 074765 Resident 12/24/22 Mamadou Bowie MD [address] [place] [address] 00083 Assigned PCP 03/23/23 Makenzie Romano MD [address] [place] [address] 86539 auto body repair technician & Neurology - Child & Adolescent Psychiatry 11/08/23 Shani Stephenson MD [address] [place] [address] 748875 Resident Psychiatry 11/08/23 Ita Newton Specialty Engineering Group Leader 06/04/24 Kenya Jennings MD [address] [place] [address] 645795 Plastic Surgery 06/04/24 Herber Lopez MD [address] [place] [address] [place] [address] Assigned Dermatology Provider 07/26/24 Сергей Dumont, [facility] Store Custodian 08/13/24 Kenya Jennings MD 420 [facility] 195 [place], [place] 810545 Assigned Surgical Provider 08/26/24 Jesse Arvizu MD 5775 [place] [address] Assigned Behavioral Health Provider 08/26/24 09/24/24 Luis Dudley MD 240 [place], [place] 551714 Assigned Behavioral Health Provider 09/25/24 10/25/24 Carmen Cole PA-C 6363 [facility] MAINE 103 [place], [place] 319785 Assigned Sleep Provider 09/25/24 Racheal Ng MD 2450 [facility] F282 [place], [place] 345494 Assigned Behavioral Health Provider 10/26/24 documented as of this encounter
--- OUTSIDE RECORDS SUMMARY | 2024-10-28 19:16 | XMS_ITS | Clinical Summary ---
Author Organization [facility] Address [address] [place] [address] Care Team Providers Care Courtroom Reporter Name Role Phone Cindy Ruiz Unavailable Trevor Espino MD Unavailable [phone] Jaci Whitlock APRN SR. UNIX SYSTEM ADMINISTRATOR Unavailable + Doris Ricci MD Unavailable [phone] Yudy Pompa MD Unavailable [phone] Mary Carmen Rodriguez MD Unavailable + Herber Lopez MD Unavailable [phone] Gloria Elizalde MD Unavailable [phone] Mamadou Bowie MD Primary Care Provider [phone] Mamadou Bowie MD Unavailable Makenzie Romano MD Unavailable [phone] Shani Stephenson MD Unavailable [phone] Ita Newton Unavailable Unavailable Kenya Jennings MD Unavailable [phone] Herber Lopez MD Unavailable [phone] Сергей Dumont [facility] Unavailable Unavailable Kenya Jennings MD Unavailable [phone] Carmen Cole PA-C Unavailable [phone] Racheal Ng MD Unavailable [phone] Allergies Active Allergy Reactions Criticality Noted Date Comments Adhesive Tape Rash Low 06/25/2014 Sulfa Antibiotics Rash Low 06/24/2013 Medications Multiple Vitamins-Minerals (MULTIVITAMIN OR) Take 1 capsule by mouth AM Active acetaminophen (TYLENOL) 500 MG tablet Take 500 mg by mouth every 6 hours as needed for mild pain Active naproxen sodium (ANAPROX) 220 MG tablet Take 220 mg by mouth as needed Active fluticasone-vilan terol (BREO ELLIPTA) 100-25 MCG/ACT inhalerIndication s:Mild intermittent asthma without complication Inhale 1 puff into the lungs daily. 28 each 11 4 Active albuterol (PROAIR HFA/PROVENTIL HFA/VENTOLIN HFA) 108 (90 Base) MCG/ACT inhalerIndication s:Mild intermittent asthma without complication Inhale 2 puffs into the lungs every 4 hours as needed for shortness of breath or wheezing. 18 g 1 4 Active SUMAtriptan (IMITREX) 25 MG tabletIndications :Migraine without aura and without status migrainosus, not intractable Take 1 tablet (25 mg) by mouth at onset of headache for migraine. May repeat in 2 hours. Max 8 tablets/24 hours. - Oral 9 tablet 3 4 Active minoxidil (LONITEN) 2.5 MG tabletIndications :Androgenetic alopecia Take one-half tablet daily 60 tablet 3 5 Active methylphenidate (RITALIN) 5 MG tabletIndications :Attention deficit hyperactivity disorder (ADHD), combined type Take 1 tablet (5 mg) by mouth 2 times daily. 60 tablet 5 Active methylphenidate (RITALIN) 5 MG tabletIndications :Attention deficit hyperactivity disorder (ADHD), combined type Take 1 tablet (5 mg) by mouth 2 times daily. 60 tablet 5 Active prochlorperazine (COMPAZINE) 5 MG tabletIndications :Mild intermittent asthma without complication,Migr shantanu without aura and without status migrainosus, not intractable TAKE 1 TO 2 TABLETS BY MOUTH EVERY 4 TO 6 HOURS NEEDED FOR NAUSEA 30 tablet 3 5 Active buPROPion (WELLBUTRIN SR) 200 MG 12 hr tabletIndications :PTSD (post-traumatic stress disorder) Take 1 tablet (200 mg) by mouth 2 times daily. 60 tablet 2 5 Active hydrOXYzine HCl (ATARAX) 25 MG tabletIndications :PTSD (post-traumatic stress disorder) Take 1 tablet (25 mg) by mouth daily as needed for anxiety. 30 tablet 2 5 Active prazosin (MINIPRESS) 1 MG capsuleIndication s:PTSD (post-traumatic stress disorder) Take 1 capsule (1 mg) by mouth at bedtime. 30 capsule 2 5 Active tranylcypromine (PARNATE) 10 MG tabletIndications :Severe episode of recurrent major depressive disorder, without psychotic features (H) Taken 2 tablets (20 mg) every morning and 20 mg every day at noon 120 tablet 1 5 Active buPROPion (WELLBUTRIN SR) 200 MG 12 hr tabletIndications :PTSD (post-traumatic stress disorder) Take 1 tablet (200 mg) by mouth 2 times daily. 60 tablet 2 5 025 Discontin ued(Reord er (No AVS)) prazosin (MINIPRESS) 1 MG capsuleIndication s:PTSD (post-traumatic stress disorder) Take 1 capsule (1 mg) by mouth at bedtime. 30 capsule 2 5 025 Discontin ued(Reord er (No AVS)) hydrOXYzine HCl (ATARAX) 25 MG tabletIndications :PTSD (post-traumatic stress disorder) Take 1 tablet (25 mg) by mouth daily as needed for anxiety. 30 tablet 2 5 025 Discontin ued(Reord er (No AVS)) tranylcypromine (PARNATE) 10 MG tabletIndications :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) Start Parnate as follows: Day 1: 10 mg QAM x 3 days Day 4: 10 mg QAM and 10 mg Qnoon x 3 days Day 7: 20 mg QAM and 10 mg Qnoon x 3 days Day 10: 20 mg QAM and 20 mg Qnoon and continue on this dose. 120 tablet 1 5 025 Discontin ued(Reord er (No AVS)) tranylcypromine (PARNATE) 10 MG tabletIndications :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) Start Parnate as follows: Day 1: 10 mg QAM x 3 days Day 4: 10 mg QAM and 10 mg Qnoon x 3 days Day 7: 20 mg QAM and 10 mg Qnoon x 3 days Day 10: 20 mg QAM and 20 mg Qnoon and continue on this dose. 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 TARUN (obstructive sleep apnea) 09/08/2024 Attention deficit hyperactiv ity disorder (ADHD), combined type 06/01/2024 Generalized anxiety disorder 06/27/2023 BCNS (basal cell nevus syndrome) 05/16/2023 Multiple melanocytic nevi 05/16/2023 Neoplasm of unspecified beha vior of bone, soft tissue, and skin 11/17/2022 History of nonmelanoma skin cancer 11/17/2022 Seborrheic keratosis 11/17/2022 Solar lentigo 11/17/2022 Multiple benign nevi 11/17/2022 Malignant neoplasm metastati c to lung, unspecified laterality 05/08/2021 Encounter for long-term (current) use of medicat ions 05/08/2021 Neoplasm of uncertain behavior of skin 1 Tinea pedis of both feet 02/19/2021 Major depression, recurrent 03/14/2020 Morbid obesity 03/10/2020 PTSD (post-traumatic stress disorder) 03/03/2020 s/p robotic ASHVIN - 2/24 10/15/2019 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 Cedillo of Dermatology. Other specified congenital m alformation syndromes, not elsewhere classified 09/01/2014 Postmenopausal bleeding 06/24/2013 Basal cell nevus syndrome 06/24/2013 Obesity 06/24/2013 Resolved Problems Problem Noted Date Diagnosed Date Resolved Date Anxiety 04/22/2023 08/17/2024 Circadian rhythm disorder 07/29/2013 Encounters Date Type Department Care Team Description 10/27/2024 MyC Medical Advice [facility] Psychiatry [facility] [address] [place] [phone] Racheal Ng MD 10/26/2024 1:30 PM CDT Office Visit [facility] [place] [id number] [place] [phone] Melanie Boykin MD Odebunmi, Tolulope Oluwadamilola, MD Raasch, Caitlin, MD Severe episode of recurrent major depressive disorder, without psychotic features (H) (Primary Dx); PTSD (post-traumatic stress disorder); Attention deficit hyperactivity disorder (ADHD), combined type; Generalized anxiety disorder; 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) 10/26/2024 Documentation Only [facility] [address] [place] [address] [address] [place] [phone] Mary Perez Sleep Problem 10/26/2024 Travel 10/22/2024 11:00 AM CDT Office Visit [facility] [address] [place] [phone] 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) (Primary Dx) 10/22/2024 Travel 10/21/2024 1:40 PM CDT Documentation Only [facility] [address] [place] [address], [address] [place] [phone] Sleep Problem (STM) 10/21/2024 11:00 AM CDT Office Visit [facility] [address] [place] [address] 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) (Primary Dx) 10/21/2024 Travel 10/20/2024 11:00 AM CDT Office Visit [facility] [address] [place] [phone] 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) (Primary Dx) 10/20/2024 MyC Medical Advice [facility] Internal Medicine [address] [place] [phone] Korin Pope 10/19/2024 11:00 AM CDT Office Visit [facility] [address] [place] [phone] 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) (Primary Dx) 10/19/2024 Travel 10/16/2024 11:00 AM CDT Office Visit [facility] [address] [place] [phone] 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) (Primary Dx) 10/16/2024 Travel 10/15/2024 11:00 AM CDT Office Visit [address] [phone] Severe episode of recurrent major depressive disorder, without psychotic features (H) (Primary Dx) 10/14/2024 11:00 AM CDT Allied Health/Nurse Visit [facility] [address] [place] [phone] Clinic Care Coordination - Face To Face (6... 10/14/2024 11:00 AM CDT Office Visit [facility] [address] [place] [phone] 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) (Primary Dx) 10/14/2024 Travel 10/13/2024 11:00 AM CDT Office Visit [facility] [address] [place] [phone] 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) (Primary Dx) 10/12/2024 11:00 AM CDT [facility] Visit [facility] [address] [place] [phone] 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) (Primary Dx) 10/12/2024 Travel 10/09/2024 11:00 AM CDT Office Visit [facility] [address] [place] [phone] 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) (Primary Dx) 10/09/2024 Travel 10/08/2024 11:00 AM CDT Office Visit [facility] Psychiatry [facility] [address] [place] [phone] 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) (Primary Dx) 10/08/2024 10:20 AM CDT Documentation Only [facility] [address] [place] [phone] Sleep Problem (STM) 10/07/2024 11:00 AM CDT Office Visit [facility] Psychiatry [facility] [address] [place] [phone] 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) (Primary Dx) 10/07/2024 Travel 10/06/2024 11:00 AM CDT Office Visit [facility] Psychiat[facility] [address] [place] [phone] 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) (Primary Dx) 10/06/2024 Travel 10/05/2024 1:00 PM CDT Documentation Only [facility] [address] [place] [phone] Sleep Problem 10/05/2024 11:00 AM CDT Office Visit [facility] [address] [place] [phone] 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) (Primary Dx) 10/05/2024 Travel 10/02/2024 11:00 AM CDT Office Visit [facility] [address] [place] [phone] 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) (Primary Dx) 10/01/2024 11:00 AM CDT Office Visit [facility] [address] [place] [address] 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) (Primary Dx) 10/01/2024 Travel 09/30/2024 11:00 AM CDT Office Visit [facility] [address] [place] [phone] 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) (Primary Dx) 09/29/2024 11:00 AM CDT Office Visit [facility] [address] [place] [phone] 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) (Primary Dx) 09/29/2024 MyC Medical Advice [facility] [address] [place] [phone] Racheal Ng MD 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) 09/29/2024 Travel 09/25/2024 11:00 AM CDT Office Visit [facility] [address] [place] [phone] 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) (Primary Dx) 09/25/2024 Telephone [facility] Internal Medicine [address] 4[address] [place] [address] Mamadou Bowie MD Patient Request 09/25/2024 Travel 09/25/2024 Telephone [facility] [address] [place] [phone] Racheal Ng MD Prior Auth - Medication (Tranylcypromine Sulfate 10MG tabs- APPROVED ) 09/24/2024 11:15 AM CDT Office Visit [facility] Psychiatry [facility] [address] [place] [phone] Racheal Ng MD 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) (Primary Dx); Severe episode of recurrent major depressive disorder, without psychotic features (H); Generalized anxiety disorder; PTSD (post-traumatic stress disorder); Anxiety 09/24/2024 11:00 AM CDT Allied Health/Nurse Visit [facility] Psychiatry [facility] [address] [place] [phone] Clinic Care Coordination - Face To Face (3... 09/24/2024 11:00 AM CDT Office Visit [facility] [address] [place] [phone] Severe episode of recurrent major depressive disorder, without psychotic features (H) (Primary Dx) 09/23/2024 11:00 AM CDT Office Visit [facility] Psychiatry [facility] [address] [place] [phone] Severe episode of recurrent major depressive disorder, without psychotic features (H) (Primary Dx) 09/23/2024 MyC Medical Advice [facility] [address] [place] [phone] Jeniffer Rogers 09/23/2024 Travel 09/22/2024 11:00 AM CDT Office Visit [facility] [address] [place] [phone] Severe episode of recurrent major depressive disorder, without psychotic features (H) (Primary Dx) 09/21/2024 11:00 AM CDT Office Visit [facility] [address] [place] [phone] Severe episode of recurrent major depressive disorder, without psychotic features (H) (Primary Dx) 09/21/2024 Telephone [facility] [address] [place] [phone] Kenya Jennings MD Reschedule Surgery (Dr. Jennings) 09/21/2024 Travel 09/18/2024 11:00 AM CDT Office Visit [facility] [address] [place] [address] Severe episode of recurrent major depressive disorder, without psychotic features (H) (Primary Dx) 09/18/2024 Travel 09/17/2024 11:00 AM CDT Office Visit [facility] [address] [place] [address] Severe episode of recurrent major depressive disorder, without psychotic features (H) (Primary Dx) 09/16/2024 11:00 AM CDT Office Visit [facility] [address] [phone] Severe episode of recurrent major depressive disorder, without psychotic features (H) (Primary Dx) 09/16/2024 Travel 09/15/2024 11:00 AM CDT Office Visit [facility] [address] [place] [phone] Severe episode of recurrent major depressive disorder, without psychotic features (H) (Primary Dx) 09/15/2024 Travel 09/15/2024 Documentation Only [facility] [address] [place] [address] Antonette Ferrari, RN 09/15/2024 MyC Medical Advice [facility] [address] [place] [phone] Antonette Ferrari, RN 09/14/2024 11:00 AM CDT Office Visit [facility] [address] [place] [phone] Severe episode of recurrent major depressive disorder, without psychotic features (H) (Primary Dx) 09/14/2024 Travel 09/11/2024 11:00 AM CDT Office Visit [facility] [address] [facility] [address] [place] [phone] Severe episode of recurrent major depressive disorder, without psychotic features (H) (Primary Dx) 09/11/2024 Telephone [facility] [address] [place] [address] Kenya Jennings MD Schedule Surgery 09/11/2024 MyC Medical Advice [facility] [address] [place] [address] Cristhian Cummingsie 09/11/2024 Travel 09/10/2024 11:00 AM CDT [facility] [address] [place] [phone] Severe episode of recurrent major depressive disorder, without psychotic features (H) (Primary Dx) 09/10/2024 MyC Medical Advice [facility] [address] [phone] Сергей Dumont LGSW 09/10/2024 Travel 09/09/2024 11:00 AM CDT [facility] [address] [phone] Severe episode of recurrent major depressive disorder, without psychotic features (H) (Primary Dx) 09/09/2024 Travel 09/08/2024 1:30 PM CDT Virtual Visit [facility] [address] [phone] Mamadou Bowie MD Baumann, Carmen Hernandez PA-C TARUN (obstructive sleep apnea) (Primary Dx); Moderate episode of recurrent major depressive disorder (H); Generalized anxiety disorder 09/08/2024 11:00 AM CDT [facility] [address] [place] [address] [place] [phone] Severe episode of recurrent major depressive disorder, without psychotic features (H) (Primary Dx) 09/08/2024 Refill [facility] Internal Medicine [address] [place] [phone] Mamadou Bowie MD Refill Request (/prochlorperazine (COMPAZINE) 5 MG tablet /) 09/07/2024 11:00 AM CDT Office Visit [facility] [address] [place] [address] Severe episode of recurrent major depressive disorder, without psychotic features (H) (Primary Dx) 09/07/2024 MyC Medical Advice [facility] [address] [place] [phone] Lilia Cervantes 09/07/2024 Travel 09/04/2024 11:00 AM CDT Office Visit [facility] [address] [place] [address] [place] [phone] Severe episode of recurrent major depressive disorder, without psychotic features (H) (Primary Dx) 09/04/2024 Travel 09/03/2024 11:00 AM CDT Office Visit [facility] [address] [place] [phone] Severe episode of recurrent major depressive disorder, without psychotic features (H) (Primary Dx) 09/02/2024 11:00 AM CDT Office Visit [facility] [address] [place] [address] [place] [phone] Luis Dudley MD Severe episode of recurrent major depressive disorder, without psychotic features (H) (Primary Dx) 09/02/2024 10:30 AM CDT Allied Health/Nurse Visit [facility] [address] [place] [phone] Pt Ed (TMS) 09/02/2024 MyC Medical Advice [facility] [address] [place] [phone] Antonette Ferrari RN 09/02/2024 Travel 09/01/2024 Orders Only [facility] Services - Surgical Specialties Service Line [address] [place] [address] Kenya Jennings MD Gender dysphoria in adult (Primary Dx) 08/31/2024 Travel 08/28/2024 MyC Medical Advice [facility] [address] [phone] Kimberly Guo CMA 08/26/2024 8:00 AM CDT Documentation Only [facility] [address] [phone] Sleep Study (HST Drop off) 08/25/2024 3:00 PM CDT Office Visit [address] [phone] Snoring; Obesity (BMI 30-39.9); Moderate episode of recurrent major depressive disorder (H); Generalized anxiety disorder 08/25/2024 Travel 08/24/2024 Travel 08/17/2024 1:30 PM CDT Office Visit [facility] [address] [place] [address] [facility] [address] [phone] Melanie Boykin MD Powell, Karen, DO Raasch, Caitlin, MD Severe episode of recurrent major depressive disorder, without psychotic features (H) (Primary Dx); Generalized anxiety disorder; Attention deficit hyperactivity disorder (ADHD), combined type; PTSD (post-traumatic stress disorder) 08/17/2024 Telephone [facility] [address] [place] [address] [facility] [address] [phone] Luciana Moreno RN 08/17/2024 Travel 08/16/2024 Travel 08/13/2024 Documentation Only [facility] [address] [place] [address] Сергей Dumont, [facility] Care Team (LOS Review) 08/12/2024 Telephone [facility] [address] [phone] Herber Lopez MD 08/11/2024 12:30 PM CDT Office Visit [facility] [address] [phone] Herber Lopez MD Loss of hair (Primary Dx); Androgenetic alopecia; Goltz-Gorlin syndrome 08/11/2024 Travel 08/10/2024 Travel 08/06/2024 MyC Medical Advice [facility] [address] [phone] Rhianna Suazo RN 08/04/2024 12:00 PM CDT Office Visit [facility] [address] [phone] Mamadou Bowie MD Buckley, Marie Claire, MD Gender dysphoria 08/03/2024 2:00 PM CDT Office Visit [facility] [address] [place] [address] [place] [phone] Jesse Arvizu MD Recurrent major depressive disorder, in partial remission (Primary Dx) 08/03/2024 Travel 07/31/2024 Documentation Only [facility] [address] [place] [phone] Shell Lema APRN SR[employer] UNIX SYSTEM ADMINISTRATOR 07/30/2024 Travel 07/28/2024 MyC Medical Advice [facility] [address] [phone] Carmen Cole PA-C Snoring (Primary Dx); Obesity (BMI 30-39.9); Moderate episode of recurrent major depressive disorder (H); Generalized anxiety disorder 07/28/2024 MyC Medical Advice [facility] [address] [phone] Ita Newton from Last 3 Months Immunizations Immunization Administration Dates Next Due COVID-19 MONOVALENT 12+ (Pfizer) 08/20/2020,07/05 DTaP, Unspecified 05/06/2008 TD,PF 7+ (Tenivac) 07/22/2018 TDAP (Adacel,Boostrix) 05/06/2008 Td (Adult), Adsorbed 07/22/2018 Family History Medical History Relation Comments C.A.D. Father Cancer Father Cerebrovascular Disease Father Deep Vein Thrombosis Father Hypertension Father Obesity Father Hypertension Maternal Grandmother Obesity Maternal Grandmother Anesthesia Reaction Mother ponv Thyroid Disease Mother Hyperthyroidism. Cancer Other Mother had Melon paulo Depression Paternal Grandfather Multiple in patient and ECT Obesity Paternal Grandfather Cerebrovascular Disease Paternal Grandmother Hypertension Paternal Grandmother Relation Status Comments Father Maternal Grandmother Mother Other Paternal Grandfather Paternal Grandmother Social History Tobacco Use Types Packs/Day Years [...] Answer Date Recorded PHQ-2 Score 2 10/26/2024 [facility] - Occupational [...] in an abandoned building, in an overnight fci, or couch-surfing.) No 10/26/2024 Are you worried [...] PM CDT Legal Sex Female 3:58 AM [employer] Gender Identity other 11/14/2020 10:33 PM CDT Sexual Orientation Lesbian 06/22/2019 4: 20 AM [employer]AL [employer]ER Last Filed Vital Signs Vital Sign Reading Time Taken Comments Blood Pressure 126/79 10/26/2024 1:17 PM CDT Pulse 82 10/26/2024 1:17 PM CDT Temperature 36.6 C (97.8 F) 10/26/2024 1:17 PM CDT Respiratory Rate 18 04/03/2024 2:24 PM [employer] Oxygen Saturation 98% 09/24/2024 11: 33 AM CDT Inhaled Oxygen Concentration - - Weight 123.1 kg (271 lb 6.4 oz) 10/26/2024 1:17 PM CDT Height 177.8 cm (5' 10) 09/08/2024 1:02 PM CDT Body Mass Index 38.94 09/08/2024 1:02 PM CDT Plan of Treatment Upcoming Encounters Date Type Department Care Team (Latest Contact Info) Description 10/29/2024 11:00 AM CDT Virtual Visit [facility] [address] [place] [phone] 11/23/2024 1:30 PM CDT Office Visit [facility] [place] [phone] [facility] [address] [phone] Melanie Boykin MD [address] [place] [address] [phone] Gloria Elizalde MD [address] [place], [place] [phone] 12/03/2024 3:00 PM CDT Office Visit [facility] [address] [place] [address] [phone] Jesse Arvizu MD [address] [place] [address] [phone] 12/15/2024 11:40 AM CDT Ancillary Procedure [facility] [address] 1st [place] [phone] Yudy Pompa MD [address] [place] [address] [phone] 12/22/2024 11:40 AM CDT Oncology Visit [facility] [address] [place] [address] [phone] Yudy Pompa MD [address] [place] [address] [phone] 02/22/2025 12:30 PM CDT Office Visit [facility] [address] [phone] Kenya Jennings MD [address] [place] [address] [phone] 03/12/2025 1:00 PM [employer] Office Visit [facility] Internal Medicine [address] [phone] Mamadou Bowie MD [address] [place] [address] [phone] 03/23/2025 8:00 AM [employer]ER Hospital Encounter [facility] [address] [place] [address] [phone] Kenya Jennings MD [address] [place] [address] [phone] 03/23/2025 8:00 AM [employer]ER - 03/23/2025 12:05 PM [employer] Surgery [facility] [address] [place] [address] [phone] Kenya Jennings MD [address] [place] [address] [phone] MASTECTOMY, BILATERAL, SIMPLE, NO nipple grafts. OnQ 03/30/2025 10:00 AM [employer] Office Visit [facility] [address] [phone] Lynn Parks APRN [address] [phone] 04/16/2025 1:00 PM [employer] Office Visit [facility] Internal Medicine [address] [place] [phone] Mamadou Bowie MD [address] [place] [address] [phone] 05/03/2025 4:00 PM [employer] Office Visit [facility] [address] [place] [phone] Kenya Jennings MD [address] [place] [address] [address] [place], [place] [phone] 08/17/2025 12:15 PM CDT Office Visit [facility] [address] [place] [phone] Herber Lopez MD [address] [place] [address] [address] [place], [place] [phone] Scheduled Procedures Name Priority Associated Diagnoses Date/Ti me MASTECTOMY, BILATERAL, FOR GENDER AFFIRMATION Gender dysphoria in adult 03/23/2025 8:00 AM [employer] Health Maintenance Due Date Last Done Comments CT COLONOGRAPHY 1965 FIT 1965 FLEX SIG 1965 sDNA (Cologuard) 1965 PNEUMOCOCCAL VACCINE 50+ YEARS (1 of 2 - PCV) 1983 ZOSTER VACCINE (1 of 2) 1983 COVID-19 VACCINE ( season) 2024 04/30/2021, 08/20/2020, 07/30/2020 ASTHMA ACTION PLAN 03/19/2024 03/19/2023, 1 05/19/2022, 03/19/2023 RSV VACCINE (1 - Risk 60-74 years 1-dose series) 2024 DIABETES SCREENING 07/13/2024 07/13/2021, 0 05/11/2021, 01/24/2021, Additional history exists ASTHMA CONTROL TEST 10/01/2024 04/03/2024, 03/24/2024, 03/19/2023, Additional history exists DEPRESSION 12 MO INDEX REPEAT PHQ-9 11/09/2024 10/26/2024, 10/22/2024, 10/21/2024, Additional history exists PHQ-9 11/25/2024 10/26/2024, 10/04, 10/21/2024, Additional history exists INFLUENZA VACCINE (Season Ended) 2025 ANNUAL REVIEW OF HM ORDERS 04/03/2025 04/03/2024, YEARLY PREVENTIVE VISIT 04/03/2025 04/03/2024, 03/19 MAMMO SCREENING 12/23/2025 12/24/2023, 05/06, 05/12/2020, Additional history exists LIPID 05/11/2026 05/11/2021 DTAP/TDAP/TD VACCINE (5 - Td or Tdap) 07/22/2028 07/22/2018, 07/22/2018, 05/06/2008, Additional history exists COLONOSCOPY 09/04/2028 09/04/2018, 09/04/2018 COLORECTAL CANCER SCREENING 09/04/2028 ADVANCE CARE PLANNING 04/03/2029 04/03/2024, 023 DEPRESSION ACTION PLAN Completed 03/19/2023 HEPATITIS C SCREENING Discontinued HIV SCREENING Discontinued HPV VACCINE Aged Out No longer eligi ble based on patient's age to complete this topic MENINGITIS VACCINE Aged Out No longer eligible based on patient's age to complete this topic PAP Discontinued Goals Goal Patient Goal Type Associated Problems Recent Progress Patient-Stated? 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) MS TRANSCRANIAL MAGNETIC STIMULATION TREATMENT,DELIVERY/M ANAGEMENT Routine 10/21/2024 11:24 AM CDT 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) MS TRANSCRANIAL MAGNETIC STIMULATION TREATMENT,DELIVERY/M ANAGEMENT Routine 10/20/2024 11:05 AM CDT 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) MS TRANSCRANIAL MAGNETIC STIMULATION TREATMENT,DELIVERY/M ANAGEMENT Routine 10/19/2024 11:13 AM CDT 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) MS TRANSCRANIAL MAGNETIC STIMULATION TREATMENT,DELIVERY/M ANAGEMENT Routine 10/16/2024 11:10 AM CDT 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) MS TRANSCRANIAL MAGNETIC STIMULATION TREATMENT,DELIVERY/M ANAGEMENT Routine 10/15/2024 11:22 AM CDT Severe episode of recurrent major depressive disorder, without psychotic features (H) MS TRANSCRANIAL MAGNETIC STIMULATION TREATMENT,DELIVERY/M ANAGEMENT Routine 10/14/2024 11:09 AM CDT 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) MS TRANSCRANIAL MAGNETIC STIMULATION TREATMENT,DELIVERY/M ANAGEMENT Routine 10/13/2024 11:36 AM CDT 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) MS TRANSCRANIAL MAGNETIC STIMULATION TREATMENT,DELIVERY/M ANAGEMENT Routine 10/12/2024 11:07 AM CDT 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) MS TRANSCRANIAL MAGNETIC STIMULATION TREATMENT,DELIVERY/M ANAGEMENT Routine 10/09/2024 11:10 AM CDT 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) MS TRANSCRANIAL MAGNETIC STIMULATION TREATMENT,DELIVERY/M ANAGEMENT Routine 10/08/2024 11:08 AM CDT 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) MS TRANSCRANIAL MAGNETIC STIMULATION TREATMENT,DELIVERY/M ANAGEMENT Routine 10/07/2024 11:06 AM CDT 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) MS TRANSCRANIAL MAGNETIC STIMULATION TREATMENT,DELIVERY/M ANAGEMENT Routine 10/06/2024 11:07 AM CDT 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) MS TRANSCRANIAL MAGNETIC STIMULATION TREATMENT,DELIVERY/M ANAGEMENT Routine 10/05/2024 11:10 AM CDT 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) MS TRANSCRANIAL MAGNETIC STIMULATION TREATMENT,DELIVERY/M ANAGEMENT Routine 10/02/2024 11:12 AM CDT 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) MS TRANSCRANIAL MAGNETIC STIMULATION TREATMENT,DELIVERY/M ANAGEMENT Routine 10/01/2024 11:17 AM CDT 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) MS TRANSCRANIAL MAGNETIC STIMULATION TREATMENT,DELIVERY/M ANAGEMENT Routine 09/30/2024 11:10 AM CDT 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) MS TRANSCRANIAL MAGNETIC STIMULATION TREATMENT,DELIVERY/M ANAGEMENT Routine 09/29/2024 11:15 AM CDT 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) MS TRANSCRANIAL MAGNETIC STIMULATION TREATMENT,DELIVERY/M ANAGEMENT Routine 09/25/2024 11:11 AM CDT 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) MS TRANSCRANIAL MAGNETIC STIMULATION TREATMENT,DELIVERY/M ANAGEMENT Routine 09/24/2024 11:06 AM CDT Severe episode of recurrent major depressive disorder, without psychotic features (H) MS TRANSCRANIAL MAGNETIC STIMULATION TREATMENT,DELIVERY/M ANAGEMENT Routine 09/23/2024 11:08 AM CDT Severe episode of recurrent major depressive disorder, without psychotic features (H) MS TRANSCRANIAL MAGNETIC STIMULATION TREATMENT,DELIVERY/M ANAGEMENT Routine 09/22/2024 11:08 AM CDT Severe episode of recurrent major depressive disorder, without psychotic features (H) MS TRANSCRANIAL MAGNETIC STIMULATION TREATMENT,DELIVERY/M ANAGEMENT Routine 09/21/2024 11:11 AM CDT Severe episode of recurrent major depressive disorder, without psychotic features (H) MS TRANSCRANIAL MAGNETIC STIMULATION TREATMENT,DELIVERY/M ANAGEMENT Routine 09/18/2024 11:28 AM CDT Severe episode of recurrent major depressive disorder, without psychotic features (H) MS TRANSCRANIAL MAGNETIC STIMULATION TREATMENT,DELIVERY/M ANAGEMENT Routine 09/17/2024 11:08 AM CDT Severe episode of recurrent major depressive disorder, without psychotic features (H) MS TRANSCRANIAL MAGNETIC STIMULATION TREATMENT,DELIVERY/M ANAGEMENT Routine 09/16/2024 11:09 AM CDT Severe episode of recurrent major depressive disorder, without psychotic features (H) MS TRANSCRANIAL MAGNETIC STIMULATION TREATMENT,DELIVERY/M ANAGEMENT Routine 09/15/2024 11:05 AM CDT Severe episode of recurrent major depressive disorder, without psychotic features (H) MS TRANSCRANIAL MAGNETIC STIMULATION TREATMENT,DELIVERY/M ANAGEMENT Routine 09/14/2024 11:09 AM CDT Severe episode of recurrent major depressive disorder, without psychotic features (H) MS TRANSCRANIAL MAGNETIC STIMULATION TREATMENT,DELIVERY/M ANAGEMENT Routine 09/11/2024 11:13 AM CDT Severe episode of recurrent major depressive disorder, without psychotic features (H) MS TRANSCRANIAL MAGNETIC STIMULATION TREATMENT,DELIVERY/M ANAGEMENT Routine 09/10/2024 11:14 AM CDT Severe episode of recurrent major depressive disorder, without psychotic features (H) MS TRANSCRANIAL MAGNETIC STIMULATION TREATMENT,DELIVERY/M ANAGEMENT Routine 09/09/2024 11:14 AM CDT Severe episode of recurrent major depressive disorder, without psychotic features (H) MS TRANSCRANIAL MAGNETIC STIMULATION TREATMENT,DELIVERY/M ANAGEMENT Routine 09/08/2024 11:19 AM CDT Severe episode of recurrent major depressive disorder, without psychotic features (H) MS TRANSCRANIAL MAGNETIC STIMULATION TREATMENT,DELIVERY/M ANAGEMENT Routine 09/07/2024 11:05 AM CDT Severe episode of recurrent major depressive disorder, without psychotic features (H) MS TRANSCRANIAL MAGNETIC STIMULATION TREATMENT,DELIVERY/M ANAGEMENT Routine 09/04/2024 11:12 AM CDT Severe episode of recurrent major depressive disorder, without psychotic features (H) MS TRANSCRANIAL MAGNETIC STIMULATION TREATMENT,DELIVERY/M ANAGEMENT Routine 09/03/2024 11:19 AM CDT Severe episode of recurrent major depressive disorder, without psychotic features (H) MS TRANSCRANIAL MAGNETIC STIMULATION TREATMENT,PLANNING Routine 09/02/2024 11:57 AM CDT Severe episode of recurrent major depressive disorder, without psychotic features (H) MS HOME SLEEP TEST/TYPE 3 ANDREINA Routine 08/25/2024 3:00 PM CDT Snoring Obesity (BMI 30-39.9) Moderate episode of recurrent major depressive disorder (H) Generalized anxiety disorder MA SCREENING BILATERAL W/ GARRETT Routine 12/24/2023 2:51 PM CDT Visit for screening mammogram GLUCOSE WHOLE BLOOD POCT Routine 07/13/2021 11:35 AM [employer] 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, unspecified laterality (H) LIPID REFLEX TO DIRECT LDL PANEL Routine 05/11/2021 7:40 AM [employer]AL [employer]ER Screening cholesterol level COLONOSCOPY - HIM SCAN Routine 09/04/2018 from Last 3 Months or Most Recently Relevant to Health Maintenance Results * HST-Home Sleep Apnea Test - Noxturnal Returnable (08/25/2024 3:00 PM CDT) Narrative Kimberly Guo CMA - 08/25/2024 3:00 PM CDT Fam Guevara MD 08/26/2024 11:24 AM [facility] Home Sleep Study Interpretation Patient: Gabriela Kraus Date of : 1965 Study Date: 08/25/2024 PCP/Referring Provider: Mamadou Bowie; Ordering Provider: Carmen Cole PA-C Indications for Home Study: Gabriela is a 59 Female who presents with symptoms suggestive of obstructive sleep apnea Weight: 272.0 lbs BMI: 39.0 Brandon: STOP BAN Data: A full night home sleep study was performed recording the standard physiologic parameters including body position, movement, sound, nasal pressure, thermal oral airflow, chest and abdominal movements with respiratory inductance plethysmography, and oxygen saturation by pulse oximetry. Pulse rate was estimated by oximetry recording. This study was considered adequate based on > 4 hours of quality oximetry and respiratory recording. As specified by the AASM Manual for the Scoring of Sleep and Associated events, version 2.3, Rule VIII.D 1B, 4% oxygen desaturation scoring for hypopneas is used as a standard of care on all home sleep apnea testing. Analysis Time: 567.8 minutes Respiration: Sleep Associated Hypoxemia: Sustained hypoxemia was not present. Baseline oxygen saturation was 96 %. Time with saturation less than 89% was 1.2 minutes. Time with saturation less than 90% was 3 minutes. The lowest oxygen saturation was 86.0%. Snoring: Snoring was present 60% of the time with an average level of 70 dB. Duration of time snoring above 70 dB was 341 minutes. Respiratory events: The home study revealed a presence of 0 obstructive apneas and 0 mixed and central apneas. There were 53 hypopneas resulting in a combined apnea/hypopnea index [AHI] of 6 events per hour with 12 per hour supine, 0 per hour prone, 0 per hour upright, 0 per hour left side, and 5 per hour right side. Position: Percent of time spent: Supine 3%, prone 0%, upright 0%, on left 0%, on right 97%. Heart Rate: By Pulse Oximetry normal rate was noted. Assessment: Mild obstructive sleep apnea. Sleep associated hypoxemia was not present. Of note, there was minimal supine positioning during this test. Recommendations: If treatment of mild obstructive sleep apnea is clinically indicated, following therapy options can be considered. Patient can consider mandibular advancement dental appliance therapy through referral to dental sleep medicine for treatment of mild obstructive sleep apnea. If there is excessive daytime sleepiness or other qualifying medical comorbidity, consider auto titrating CPAP therapy for treatment. Suggest optimizing sleep hygiene and avoiding sleep deprivation Weight management Diagnosis Code(s): Obstructive Sleep Apnea G47.33 Electronically signed by: Fam Guevara MD, August 26, 2024 Diplomate, [place] [employer], Sleep Medicine Procedure Note Fam Guevara MD - 08/25/2024 3:00 PM CDT [facility] Home Sleep Study Interpretation Patient: Gabriela Kraus Date of : 1965 Study Date: 08/25/2024 PCP/Referring Provider: Mamadou Bowie; Ordering Provider: Carmen Cole PA-C Indications for Home Study: Gabriela is a 59 Female who presents with symptomssuggestive of obstructive sleep apnea Weight: 272.0 lbs BMI: 39.0 Brandon: / STOP BAN-09/10 Data: A full night home sleep study was performed recording the standardphysiologic parameters including body position, movement, sound, nasalpressure, thermal oral airflow, chest and abdominal movements withrespiratory inductance plethysmography, and oxygen saturation by pulseoximetry. Pulse rate was estimated by oximetry recording. This study wasconsidered adequate based on > 4 hours of quality oximetry and respiratoryrecording. As specified by the AASM Manual for the Scoring of Sleep andAssociated events, version 2.3, Rule VIII.D 1B, 4% oxygen desaturationscoring for hypopneas is used as a standard of care on all home sleepapnea testing. Analysis Time: 567.8 minutes Respiration: Sleep Associated Hypoxemia: Sustained hypoxemia was not present. Baselineoxygen saturation was 96 %. Time with saturation less than 89% was 1.2minutes. Time with saturation less than 90% was 3 minutes. The lowestoxygen saturation was 86.0%. Snoring: Snoring was present 60% of the time with an average level of 70dB. Duration of time snoring above 70 dB was 341 minutes. Respiratory events: The home study revealed a presence of 0 obstructiveapneas and 0 mixed and central apneas. There were 53 hypopneas resultingin a combined apnea/hypopnea index [AHI] of 6 events per hour with 12 perhour supine, 0 per hour prone, 0 per hour upright, 0 per hour left side,and 5 per hour right side. Position: Percent of time spent: Supine 3%, prone 0%, upright 0%, on left0%, on right 97%. Heart Rate: By Pulse Oximetry normal rate was noted. Assessment: Mild obstructive sleep apnea. Sleep associated hypoxemia was not present. Of note, there was minimal supine positioning during this test. Recommendations: If treatment of mild obstructive sleep apnea is clinically indicated,following therapy options can be considered. Patient can consider mandibular advancement dental appliance therapythrough referral to dental sleep medicine for treatment of mildobstructive sleep apnea. If there is excessive daytime sleepiness or other qualifying medicalcomorbidity, consider auto titrating CPAP therapy for treatment. Suggest optimizing sleep hygiene and avoiding sleep deprivation Weight management Diagnosis Code(s): Obstructive Sleep Apnea G47.33 Electronically signed by: Fam Guevraa MD, August 26, 2024 Diplomate, [place] [employer] and [employer]rology, Sleep Medicine Carmen Cole PA-C PROCEDURES Abram ai Result - Final * MA Screen Bilateral w/Garrett (12/24/2023 2:51 PM CDT) Anatomical Region Laterality Modality Breast Bilateral Mammography Impressions 12/26/2023 1:01 PM CDT IMPRESSION: ACR BI-RADS Category 1: Negative BREAST CANCER SCREENING RECOMMENDATION: Routine yearly mammography beginning at age 40 or as discussed with your provider. The results and recommendations of this examination will be communicated to the patient. I have personally reviewed the examination and initial interpretation and I agree with the findings. Ana Lilia Tai MD; Marva Auguste MD Based on the pre-exam history questionnaire and medical history, there may be increased risk for developing breast cancer or other cancers in the future. The contact for scheduling cancer genetic counseling for risk assessment and possible genetic testing and supplemental screening is: [phone]. Narrative 12/26/2023 1:01 PM CDT BILATERAL FULL FIELD DIGITAL SCREENING MAMMOGRAM WITH TOMOSYNTHESIS Performed on: 12/24/23 Compared to: 05/15/2021, 05/12/2020, and 09/19/2018 Technique: This study was evaluated with the assistance of Computer-Aided Detection. Breast Tomosynthesis was used in interpretation. Findings: There are scattered areas of fibroglandular density. There is no radiographic evidence of malignancy. Mamadou Bowie MD IMG MAMMOGRAPHY ORDERABLES Final Result * Glucose Whole Blood POCT (07/13/2021 11:35 AM [employer]IVERSAL [employer]ER) Glucose 77 70 - 99 mg/dL Whole blood 07/13/2021 11:3 5 AM [employer]AL [employer]ER Yudy Pompa MD LAB - ENTER/EDIT POCT Final Res ult * (ABNORMAL) Lipid panel reflex to direct LDL Fasting (05/11/2021 7:40 AM [employer]IV[employer]AL B[employer]ER) Cholesterol 205(H) <200 mg/dL 05/11/2021 8:19 AM [employer]IVERSAL B[employer]ER [facility] Triglycerides 116 <150 mg/dL 05/11/2021 8:19 AM [employer]AL [employer]ER [facility] Direct Measure HDL 57 >=40 mg/dL 05/11/2021 8:19 AM [employer]IV[employer]AL B[employer]ER [facility] LDL Cholesterol Calculated 125(H) <=100 mg/dL 05/11/2021 8:19 AM [facility] Non HDL Cholesterol 148(H) <130 mg/dL 05/11/2021 8:19 AM [facility] Patient Fasting > 8hrs? Yes 05/11/2021 8:19 AM [facility] Blood STRUCTURE OF LEFT UPPER LIMB / Unknown Venipuncture / Unknown 05/11/2021 7:40 AM [employer]IVERSAL B[employer]ER 05/11/2021 7:45 AM UNIVERSAL BANKER Narrative [facility] - 05/11/2021 8:19 AM UNIVERSAL B[employer]ER The sex of this patient cannot be reliably determined based on discrepancies in demographics (legal sex, sex assigned at , gender identity). Both male and female reference ranges are provided where applicable. Careful evaluation of the patient s results as compared to the gender specific reference intervals is required in this setting. Cholesterol Desirable: <200 mg/dL Triglycerides Normal: Less than 150 mg/dL Borderline High: 150-199 mg/dL High: 200-499 mg/dL Very High: Greater than or equal to 500 mg/dL Direct Measure HDL Female: Greater than or equal to 50 mg/dL Male: Greater than or equal to 40 mg/dL LDL Cholesterol Desirable: <100mg/dL Above Desirable: 100-129 mg/dL Borderline High: 130-159 mg/dL High: 160-189 mg/dL Very High: >= 190 mg/dL Non HDL Cholesterol Desirable: 130 mg/dL Above Desirable: 130-159 mg/dL Borderline High: 160-189 mg/dL High: 190-219 mg/dL Very High: Greater than or equal to 220 mg/dL Torey Luna MD LAB - BLOOD ORDERABLES Final Result [facility] - [address] [place] [address] * Colonoscopy - HIM Scan (09/04/2018) Impressions Darrell Brandon CMA - 09/04/2018 -One 5 mm polyp at the splenic fixture, removed piecemeal using a cold biopsy forceps. Resected and retrieved. -Likely benign tumor at the splenic flexure. Biopsied. -One 3 mm polyp in the rectum, removed piecemeal using a cold biopsy forceps. Resected and retrieved. -The examination was otherwise normal on direct and retroflexion views. Given recent colonoscopy exam and negative family history of colon cancer and polyps, recommend next colonoscopy in 10 years. Patient Reported PROCEDURES Final Result from Last 3 Months or Most Recently Relevant to Health Maintenance Additional Health Concerns Active Problems Noted Date Diagnosed Date MyC ECC SURG ENROLL 09/11/2024 Insurance [employer]UE [employer]US ADVANTAGE [place] [employer] [employer] * Guarantor: Gabriela Kraus Account Type Relation to Patient Date of Phone Billing Address Medication Therapy Self 1965 [address] [place] [address] BLUE PLUS [facility] Advance Directives For more information, please contact: [phone] * Full Code (Latest Code Status on File) Date Activated Date Inactivated Comments 03/03/2020 10:56 PM 03/09/2020 4:37 PM All basic and advanced life-sustaining interventions are performed as appropriate Question Answer Comments Code status determined by: Unable to dis cuss and no AD/POLST on file; continue PREVIOUSLY ORDERED code status * Full Code Date Activated Date Inactivated Comments 01/31/2016 7:48 AM 03/03/2020 5:21 PM * Full Code Date Activated Date Inactivated Comments 01/30/2016 6:19 PM 01/31/2016 7:48 AM Care Teams Courtroom Reporter Relationship Specialty Start Date End Date Mamadou Bowie MD [address] [place] [address] 8[address] PCP - General 03/18/23 Cindy Ruiz [facility] [address] [place] [address] Resident Internal Medicine 12/07/14 Trevor Espino MD 909 [place], [place] 255215 Urology 05/16/16 Jaci Whitlock APRN SR. UNIX SYSTEM ADMINISTRATOR 420 [facility] 395 [place], [place] 453045 Nurse Practitioner - Women's Health 12/14/16 Doris Ricci MD [facility] & [address] [phone] Physician Internal Medicine 07/11/20 Yudy Pompa MD [address] [place] [address] Assigned Cancer Care Provider 08/21/20 Mary Carmen Rodriguez MD 420 [facility] 98 [place], [place] 230275 Dermatology 11/09/20 Herber Lopez MD 420 [facility] 98 [place], [place] 432035 Dermapathology 11/09/20 Gloria Elizalde MD 420 [place], [place] 694725 Resident 12/24/22 Mamadou Bowie MD [address] [place] [address] 954205 Assigned PCP 03/23/23 Makenzie Romano MD [address] [place] [address], [place] [address] multiskill operator & Neurology - Child & Adolescent Psychiatry 11/08/23 Shani Stephenson MD 420 [place], [place] 739835 Resident Psychiatry 11/08/23 Ita Newton Specialty Repairer Welding Systems And Equipment 06/04/24 Kenya Jennings MD 420 [facility] 195 [place], [place] 229525 Plastic Surgery 06/04/24 Herber Lopez MD [address] [place] [address] 98 [place], [place] 345485 Assigned Dermatology Provider 07/26/24 Сергей Dumont [facility] Plastics Sheet Finishing Press Operator 08/13/24 Kenya Jennings MD [address] [place] [address] 195 [place], [place] 905125 Assigned Surgical Provider 08/26/24 Carmen Cole PA-C [address] [facility] [address] 103 [place] [address] Assigned Sleep Provider 09/25/24 Racheal Ng MD [address] [place], [place] 729624 Assigned Behavioral Health Provider 10/26/24
--- OUTSIDE RECORDS SUMMARY | 2024-10-28 19:16 | XMS_ITS | Encounter Summary ---
Author Organization [place] Address [address] [place] [address]28 Care Team Providers Care Deaf And Hard Of Hearing Teacher Name Role Phone Cindy Ruiz Unavailable Trevor Espino MD Unavailable [phone] Jaci Whitlock APRN CLINICAL WRITER Unavailable + Doris Ricci MD Unavailable Yudy Pompa MD Unavailable [phone] Mary Carmen Rodriguez MD Unavailable + Herber Lopez MD Unavailable [phone] Gloria Elizalde MD Unavailable [phone] aMmadou Bowie MD Primary Care Provider [phone] Mamadou Bowie MD Unavailable Makenzie Romano MD Unavailable [phone] Shani Stephenson MD Unavailable Ita Newton Unavailable Unavailable Kenya Jennings MD Unavailable [phone] Herber Lopez MD Unavailable [phone] Сергей Dumont [facility] Unavailable Unavailable Kenya Jennings MD Unavailable Jesse Arvizu MD Unavailable Luis Dudley MD Unavailable Carmen Cole PA-C Unavailable + [phone] Racheal Ng MD Unavailable Encounter Details Date Type Department Care Team (Late st Contact Info) Description 09/02/2024 [facility] Re[facility] Clinic [address] 4th [place] [phone] Antonette Ferrari, RN Social History Tobacco Use [...] Answer Date Recorded PHQ-2 Score 4 09/04/2024 [facility] [place] Head of Occupat ional Health - Occupational Stress [...] PM CDT Legal Sex Female 3:58 AM CARDIAC EXERCISE PHYSIOLOGIST Gender Identity other 11/14/2020 10:33 PM CDT Sexual Orientation Lesbian 06/22/2019 4: 20 AM CARDIAC EXERCISE PHYSIOLOGIST documented as of this encounter Plan of Treatment Upcoming Encounters Date Type Department Care Team (Latest Contact Info) Description 10/29/2024 11:00 AM CDT [facility] [address] [place] [phone] 11/23/2024 1:30 PM CDT Office Visit [facility] Mental Health & Addiction [address] F[address] [phone] Melanie Boykin MD [address] [place] [address] Gloria Elizalde MD [address] [place] [address] 843125 12/03/2024 3:00 PM CDT [facility] 5775 [facility] [address] [place] [phone] Jesse Arvizu MD 5775 [place] [address] 12/15/2024 11:40 AM CDT Ancillary Procedure [facility] Imaging Center CT Clinic [address] [address] Yudy Pompa MD [address] [place] [address] 330365 12/22/2024 11:40 AM CDT Oncology Visit [facility] [address] [place] [phone] Yudy Pompa MD [address] [place] [address] [phone] 02/22/2025 12:30 PM CDT Office Visit [facility] Clinic [address] [phone] Kenya Jennings MD [address] [place] [address] 074215 03/12/2025 1:00 PM CARDIAC EXERCISE PHYSIOLOGIST Office Visit [facility] Internal Medicine [address] 4th [place] [phone] Mamadou Bowie MD [address] [place] [address] 381755 03/23/2025 8:00 AM CARDIAC EXERCISE PHYSIOLOGIST Hospital Encounter [facility] PeriOp Services [facility] [place] [phone] Kenya Jennings MD [address] [place] [address] 03/23/2025 8:00 AM CARDIAC EXERCISE PHYSIOLOGIST - 03/23/2025 12:05 PM CARDIAC EXERCISE PHYSIOLOGIST Surgery [facility] Per[facility]Op [facility] [phone] Kenya Jennings MD [address] [place] [address] 878135 MASTECTOMY, BILATERAL, SIMPLE, NO nipple grafts. OnQ 03/30/2025 10:00 AM CARDIAC EXERCISE PHYSIOLOGIST Office Visit [facility] Clinic [address] [phone] Lynn Parks APRN [address] [address] 04/16/2025 1:00 PM CARDIAC EXERCISE PHYSIOLOGIST Office Visit [facility] Internal Medicine [address] [phone] Mamadou Bowie MD [address] [place] [address] 05/03/2025 4:00 PM CARDIAC EXERCISE PHYSIOLOGIST Office Visit [facility] [address] [phone] Kenya Jennings MD [address] [place] [address] 08/17/2025 12:15 PM CDT Office Visit [facility] Dermatology [address] 3rd [place] [phone] Herber Lopez MD 420 [facility] 98 [place], [place] 232135 Scheduled Procedures Name Priority Associated Diagnoses Date/Ti me MASTECTOMY, BILATERAL, FOR GENDER AFFIRMATION Gender dysphoria in adult 03/23/2025 8:00 AM CARDIAC EXERCISE PHYSIOLOGIST documented as of this encounter Visit Diagnoses Not on filedocumented in this encounter Additional Health Concerns Assessment Noted Time PHQ-9 Depression Total Score: 025 11:57 AM CDT documented as of this encounter Care Teams Deaf And Hard Of Hearing Teacher Relationship Specialty Start Date End Date Mamadou Bowie MD [address] [place] [address] 340995 PCP - General 03/18/23 Cindy Ruiz [facility] [place] [place] [address] Resident Internal Medicine 12/07/14 Trevor Espino MD [address] [place] [address] 170425 Urology 05/16/16 Jaci Whitlock APRN CLINICAL WRITER [address] [place] [address] 395 [place], [place] 453645 Nurse Practitioner - Women's Health 12/14/16 Doris Ricci MD [facility] & [address] [address] Physician Internal Medicine 07/11/20 Yudy Pompa MD [address] [place] [address] 068285 Assigned Cancer Care Provider 08/21/20 Mary Carmen Rodriguez MD 420 [facility] 98 [place], [place] 945095 Dermatology 11/09/20 Herber Lopez MD 420 [facility] 98 [place], [place] 002335 Dermapathology 11/09/20 Gloria Elizalde MD [address] [place] [address] 953105 Resident 12/24/22 Mamadou Bowie MD [address] [place] [address] 377025 Assigned PCP 03/23/23 Makenzie Romano MD [address] [place] [address] 219004 tripper & Neurology - Child & Adolescent Psychiatry 11/08/23 Shani Stephenson MD 420 [place], [place] 410675 Resident Psychiatry 11/08/23 Ita Newton Specialty Repairer Engine Production 06/04/24 Kenya Jennings MD [address] 894455 Plastic Surgery 06/04/24 Herber Lopez MD 420 [facility] 98 [place] [address] Assigned Dermatology Provider 07/26/24 Сергей Dumont, [facility] Rough Rib Grader 08/13/24 Kenya Jennings MD 420 [facility] 195 [place], [place] 177875 Assigned Surgical Provider 08/26/24 Jesse Arvizu MD 5775 [place], [place] 029206 Assigned Behavioral Health Provider 08/26/24 09/24/24 Luis Dudley MD 240 [place], [place] 073894 Assigned Behavioral Health Provider 09/25/24 10/25/24 Carmen Cole PA-C 6363 [facility] [address] 103 [place], [place] 354205 Assigned Sleep Provider 09/25/24 Racheal Ng MD 2450 [facility] [address] [place] [address] Assigned Behavioral Health Provider 10/26/24 documented as of this encounter
--- OUTSIDE RECORDS SUMMARY | 2024-10-28 19:16 | XMS_ITS | Encounter Summary ---
Author Organization [place] Address [address] [place] [address] Care Team Providers Care Relief Charge Nurse Name Role Phone Cindy Ruiz Unavailable [phone] Trevor Espino MD Unavailable [phone] Melanie Boykin MD Unavailable [phone] Jaci Whitlock APRN SEWAGE RETICULATION DRAFTING OFFICER Unavailable + Doris Ricci MD Unavailable Yudy Pompa MD Unavailable [phone] Jessi Mcfadden MD Unavailable Mary Carmen Rodriguez MD Unavailable + Herber Lopez MD Unavailable [phone] Torey Luna MD Primary Care Provider Torey Luna MD Unavailable Maurilio Carlson MD Unavailable Herber Lopez MD Unavailable [phone] Gloria Elizalde MD Unavailable [phone] Olena Smith PLUMBING INSTRUCTOR Unavailable Unavailable Maurilio Carlson MD Unavailable Mamadou Bowie MD Primary Care Provider [phone] Mamadou Bowie MD Unavailable Herber Lopez MD Unavailable Makenzie Romano MD Unavailable [phone] Shani Stephenson MD Unavailable Yomi Campos PhD Unavailable [phone] Ita Newton Unavailable Unavailable Kenya Jennings MD Unavailable Herber Lopez MD Unavailable [phone] Сергей Dumont [facility] Unavailable Unavailable Kenya Jennings MD Unavailable [phone] Jesse Arvizu MD Unavailable Luis Dudley MD Unavailable [phone] Carmen Cole PA-C Unavailable [phone] Racheal Ng MD Unavailable [phone] Encounter Details Date Type Department Care Team (Late st Contact Info) Description 08/28/[address] [facility] Medical Advice [facility] Mental Health & Addiction [address] [phone] Bria Edwards MD 420 [place] [address] Social History Tobacco Use Types Packs/Day Years Used Date Smoking Tobacco: Never Smokeless Tobacco: Never Alcohol Use Standard Drinks/Week Comments No 0 (1 standard drink = 0.6 oz pur e alcohol) PHQ-2 Answer Date Recorded PHQ-2 Score 2 07/03/2022 Comments No Sex and Gender Information Value Date Recorded Sex Assigned at Female 11/14/2020 10:33 PM CDT Legal Sex Female 3:58 AM ADJUNCT PROFESSOR OF U.S. HISTORY Gender Identity other 11/14/2020 10:33 PM CDT Sexual Orientation Lesbian 06/22/2019 4: 20 AM ADJUNCT PROFESSOR OF U.S. HISTORY documented as of this encounter Plan of Treatment Upcoming Encounters Date Type Department Care Team (Latest Contact Info) Description 10/29/2024 11:00 AM CDT Virtual Visit [facility] Psychiatry Clinic 5775 [facility] [address] [place] [address] 11/23/2024 1:30 PM CDT Office Visit [facility] Mental Health & Addiction [address] F[address] [phone] Melanie Boykin MD 2450 [place], [place] 077234 Gloria Elizalde MD 420 [place], [place] 285315 12/03/2024 3:00 PM CDT [facility] [address] [place] [phone] Jesse Arvizu MD 5775 [place] [address] 12/15/2024 11:40 AM CDT Ancillary Procedure [facility] Imaging Center CT Clinic [address] 1st [place] [phone] Yudy Pompa MD [address] [place] [address] 177525 12/22/2024 11:40 AM CDT Oncology Visit [facility] [address] [place] [phone] Yudy Pompa MD [address] [place] [address] 009435 02/22/2025 12:30 PM CDT Office Visit [facility] Clinic [address] 4th [place] [phone] Kenya Jennings MD 420 [facility] 195 [place], [place] 101475 03/12/2025 1:00 PM ADJUNCT PROFESSOR OF U.S. HISTORY Office Visit [facility] Internal Medicine [address] [phone] Mamadou Bowie MD [address] [place] [address] 03/23/2025 8:00 AM ADJUNCT PROFESSOR OF U.S. HISTORY Hospital Encounter [facility] PeriOp Services [address] [place] [phone] Kenya Jennings MD [address] [place] [address] 161285 03/23/2025 8:00 AM ADJUNCT PROFESSOR OF U.S. HISTORY - 03/23/2025 12:05 PM ADJUNCT PROFESSOR OF U.S. HISTORY Surgery [facility] PeriOp Services [address] [place] [phone] Kenya Jennings MD [address] [place] [address] 040925 MASTECTOMY, BILATERAL, SIMPLE, NO nipple grafts. OnQ 03/30/2025 10:00 AM ADJUNCT PROFESSOR OF U.S. HISTORY Office Visit [facility] Plastic and Reconstructive Surgery [address] [phone] Lynn Parks APRN [address] [address] 04/16/2025 1:00 PM ADJUNCT PROFESSOR OF U.S. HISTORY Office Visit [facility] Internal Medicine [address] [phone] Mamadou Bowie MD [address] [place] [address] 05/03/2025 4:00 PM ADJUNCT PROFESSOR OF U.S. HISTORY Office Visit [facility] [address] [place] [phone] Kenya Jennings MD 420 [facility] 195 [place], [place] 821625 08/17/2025 12:15 PM CDT Office Visit [facility] Dermatology Clinic [address]rd [place] [phone] Herber Lopez MD 420 [facility] 98 [place], [place] 307065 Scheduled Procedures Name Priority Associated Diagnoses Date/Ti me MASTECTOMY, BILATERAL, FOR GENDER AFFIRMATION Gender dysphoria in adult 03/23/2025 8:00 AM ADJUNCT PROFESSOR OF U.S. HISTORY documented as of this encounter Visit Diagnoses Not on filedocumented in this encounter Additional Health Concerns Assessment Noted Time PHQ-9 Depression Total Score: 3 07/03/19 9:09 AM ADJUNCT PROFESSOR OF U.S. HISTORY documented as of this encounter Care Teams Relief Charge Nurse Relationship Specialty Start Date End Date Torey Luna MD [address] [place] [address] PCP - General Internal Medicine 04/19/21 03/17/23 Mamadou Bowie MD [address] [place] [address] PCP - General 03/18/[address] Ru[address] [place], [place] 472190 Resident Internal Medicine 12/07/14 Trevor Espino MD [address] [place] [address] Urology 05/16/16 Melanie Boykin MD [address] [place] [address] emergency management system director 12/10/16 11/07/23 Jaci Whitlock APRN [facility] 420 [facility] 395 [place] [address] Nurse Practitioner - Women's Health 12/14/16 Doris Ricci MD [facility] & [address] [address] Physician Internal Medicine 07/11/20 Yudy Pompa MD [address] [place] [address] 276355 Assigned Cancer Care Provider 08/21/20 Jessi Mcfadden MD [address] [place] [address] F282/2A [place], [place] 278434 Resident Psychiatry 11/08/20 12/23/22 Mary Carmen Rodriguez MD 420 [facility] 98 [place] [address] Dermatology 11/09/20 Herber Lopez MD 420 [facility] 98 [place], [place] 0[address]365 Dermapathology 11/09/20 Torey Luna MD [address] [place] [address] 8[address] Assigned PCP 04/23/21 03/22/23 Maurilio Carlson MD 909 [place] [address] Assigned Surgical Provider 11/18/21 11/23/22 Herber Lopez MD [address] [address] Assigned Surgical Provider 11/24/22 12/21/22 Gloria Elizalde MD [address] [place] [address] 454385 Resident 12/24/22 Olena Smith [facility] Specialty Staff Educator Supervisor [employer] - Clinical 12/25/22 01/03/23 [place] [address] [place] [address] 876779 Assigned Surgical Provider 12/22/22 05/17/23 Mamadou Bowie MD [address] [place] [address] 576585 Assigned PCP 03/23/23 Herber Lopez MD [address] [place] [address] 338635 Assigned Surgical Provider 05/18/23 07/25/24 Makenzie Romano MD [address] 440634 emergency management system director & Neurology - Child & Adolescent Psychiatry 11/08/23 Shani Stephenson MD [address] [place] [address] 271635 Resident Psychiatry 11/08/23 Yomi Campos, PhD [address] [place] [address] F256 [place], [place] 514934 Assigned Behavioral Health Provider 01/27/24 08/25/24 Ita Newton Specialty Staff Educator 06/04/24 Kenya Jennings MD 420 [facility] 195 [place], [place] 670725 Plastic Surgery 06/04/24 Herber Lopez MD 420 [facility] 98 [place], [place] [address]35 Assigned Dermatology Provider 07/26/24 Сергей Dumont [facility] Supervisor [employer] 08/13/24 Kenya Jennings MD 420 [facility] 195 [place], [place] 393895 Assigned Surgical Provider 08/26/24 Jesse Arvizu MD 5775 [place], [place] 840276 Assigned Behavioral Health Provider 08/26/24 09/24/24 Luis Dudley MD 240 [place], [place] [phone] Assigned Behavioral Health Provider 09/25/24 10/25/24 Carmen Cole PA-C 6363 [facility] 103 [place], [place] 0[address]95 Assigned Sleep Provider 09/25/24 Racheal Ng MD [address]50 [place] [id number] [place], [place] [phone] Assigned Behavioral Health Provider 10/26/24 documented as of this encounter
--- OUTSIDE RECORDS SUMMARY | 2024-10-28 19:16 | XMS_ITS | Encounter Summary ---
Author Organization [place] Address [address] [place] [address] 93642 Care Team Providers Care Meat Loiner Name Role Phone Cindy Ruiz Unavailable [phone] Trevor Espino MD Unavailable [phone] Melanie Boykin MD Unavailable [phone] Jaci Whitlock APRN SIGNALING PROJECT ENGINEER Unavailable + Doris Ricci MD Unavailable Yudy Pompa MD Unavailable [phone] Jessi Mcfadden MD Unavailable Mary Carmen Rodriguez MD Unavailable + Herber Lopez MD Unavailable [phone] Torey Luna MD Primary Care Provider Torey Luna MD Unavailable Maurilio Carlson MD Unavailable Herber Lopez MD Unavailable [phone] Gloria Elizalde MD Unavailable [phone] Olena Smith STEAM SHOVEL OILER Unavailable Unavailable Maurilio Carlson MD Unavailable Mamadou Bowie MD Primary Care Provider [phone] Mamadou Bowie MD Unavailable Herber Lopez MD Unavailable Makenzie Romano MD Unavailable [phone] Shani Stephenson MD Unavailable [phone] Yomi Campos PhD Unavailable Ita Newton Unavailable Unavailable Kenya Jennings MD Unavailable Herber Lopez MD Unavailable Сергей Dumont [facility] Unavailable Unavailable Kenya Jennings MD Unavailable [phone] Jesse Arvizu MD Unavailable Luis Dudley MD Unavailable [phone] Carmen Cole PA-C Unavailable [phone] Racheal Ng MD Unavailable [phone] Encounter Details Date Type Department Care Team (Late st Contact Info) Description 08/15/2022 [facility] Medical Advice [facility] [address] [address] Bria Edwards MD [address] [place] [address]455 Recurrent major depressive disorder, in partial remission Social History Tobacco Use Types Packs/Day Years Used Date Smoking Tobacco: Never Smokeless Tobacco: Never Alcohol Use Standard Drinks/Week Comments No 0 (1 standard drink = 0.6 oz pur e alcohol) PHQ-2 Answer Date Recorded PHQ-2 Score 2 07/03/2022 Comments No Sex and Gender Information Value Date Recorded Sex Assigned at Female 11/14/2020 10:33 PM CDT Legal Sex Female 3:58 AM PAPER TWISTER TENDER Gender Identity other 11/14/2020 10:33 PM CDT Sexual Orientation Lesbian 06/22/2019 4: 20 AM PAPER TWISTER TENDER documented as of this encounter Miscellaneous Notes * Telephone Encounter - Tracy Lorenzana RN - 08/15/2022 11:56 AM CDT Wellbutrin SR does come in 150 mg strength. Client is likely running into quantity limit insurance issues with current Rx for 100 mg daily. Will suggest adjusting prescriptions to the following to avoid insurance issues: -Wellbutrin SR 150 mg; take 1 tab by mouth every morning for two weeks, then increase to 1 tab by mouth BID -Wellbutrin SR 100 mg; take 1 tab by mouth every evening for two weeks and then increase to 150 mg by mouth BID (see separate script) *Will first confirm if client needs an additional Rx for 100 mg tabs to complete the two weeks withthis evening dose. Tracy Lorenzana RN on 08/15/2022 at 12:17 PM documented in this encounter Plan of Treatment Upcoming Encounters Date Type Department Care Team (Latest Contact Info) Description 10/29/2024 11:00 AM CDT [facility] Visit [facility] [address] [place] [phone] 11/23/2024 1:30 PM CDT Office Visit [facility] [place] [phone] [phone] Melanie Boykin MD [address] [place] [address] 469704 Gloria Elizalde MD 420 [place], [place] 008055 12/03/2024 3:00 PM CDT Office Visit [facility] [address] [place] [address] [phone] Jesse Arvizu MD [address] [place] [address] 12/15/2024 11:40 AM CDT Ancillary Procedure [facility] [address] [phone] Yudy Pompa MD [address] [place] [address] 98[address] 12/22/2024 11:40 AM CDT Oncology Visit [facility] [address] [place] [address] [phone] Yudy Pompa MD [address] [place] [address] 47[address] 02/22/2025 12:30 PM CDT Office Visit [facility] [address] [phone] Kenya Jennings MD [address] [place] [address] 812055 03/12/2025 1:00 PM PAPER TWISTER TENDER Office Visit [facility] Internal Medicine [address] [phone] Mamadou Bowie MD [address] [place] [address] 389[address] 03/23/2025 8:00 AM PAPER TWISTER TENDER Hospital Encounter [facility] PeriOp Services [address] [place] [address] [phone] Kenya Jennings MD [address] [place] [address] 6[address] 03/23/2025 8:00 AM PAPER TWISTER TENDER - 03/23/2025 12:05 PM PAPER TWISTER TENDER Surgery [facility] [address] [place] [address] [phone] Kenya Jennings MD [address] [place] [address] 64832 MASTECTOMY, BILATERAL, SIMPLE, NO nipple grafts. OnQ 03/30/2025 10:00 AM PAPER TWISTER TENDER Office Visit [facility] [address] [phone] Lynn Parks APRN [address] [phone] 04/16/2025 1:00 PM PAPER TWISTER TENDER Office Visit [facility] Internal Medicine [address] [phone] Mamadou Bowie MD [address] [place] [address] 163145 05/03/2025 4:00 PM PAPER TWISTER TENDER Office Visit [facility] [address] [phone] Kenya Jennings MD [address] [place] [address] 195 [place], [place] 722935 08/17/2025 12:15 PM CDT Office Visit [facility] [address] [phone] Herber Lopez MD [address] [place] [address] 98 [place], [place] 799415 Scheduled Procedures Name Priority Associated Diagnoses Date/Ti me MASTECTOMY, BILATERAL, FOR GENDER AFFIRMATION Gender dysphoria in adult 03/23/2025 8:00 AM PAPER TWISTER TENDER documented as of this encounter Visit Diagnoses Diagnosis Recurrent major depressive disorder, in partial remission Gender dysphoria in adult documented in this encounter Additional Health Concerns Assessment Noted Time PHQ-9 Depression Total Score: 3 07/03/19 23 9:09 AM PAPER TWISTER TENDER documented as of this encounter Care Teams Meat Loiner Relationship Specialty Start Date End Date Torey Luna MD [address] [place] [address] 86222 PCP - General Internal Medicine 04/19/21 03/17/23 Mamadou Bowie MD 9[address] [place] [address] PCP - General 03/18/23 Cindy Ruiz [place] [address] Resident Internal Medicine 12/07/14 Trevor Espino MD [address] [place] [address] 95270 Urology 05/16/16 Melanie Boykin MD [address] [place] [address] 83581 director financial planning 12/10/16 11/07/23 Jaci Whitlock APRN SIGNALING PROJECT ENGINEER [address] [place] [address] 034375 Nurse Practitioner - Women's Health 12/14/16 Doris Ricci MD [facility] [address] [place] [address] Physician Internal Medicine 07/11/20 Yudy Pompa MD [address] [place] [address] 50499 Assigned Cancer Care Provider 08/21/20 Jessi Mcfadden MD [address] [place] [address] F282/2A [place] [address] Resident Psychiatry 11/08/20 12/23/22 Mary Carmen Rodriguez MD [address] [place] [address] 74643 Dermatology 11/09/20 Herber Lopez MD [address] [place] [address] 54457 Dermapathology 11/09/20 Torey Luna MD [address] [place] [address] 58915 Assigned PCP 04/23/21 03/22/23 Maurilio Carlson MD [address] [place] [address] 92644 Assigned Surgical Provider 11/18/21 11/23/22 Herber Lopez MD [address] [place] [address] 44969 Assigned Surgical Provider 11/24/22 12/21/22 Gloria Elizalde MD [address] [place] [address] 27224 Resident 12/24/22 Olena Smith, STEAM SHOVEL OILER Specialty Repairer Resistance Welding Machines Podiatry Professor - Clinical 12/25/22 01/03/23 [place] [address] [place] [address] Assigned Surgical Provider 12/22/22 05/17/23 Mamadou Bowie MD 909 [place] [address] Assigned PCP 03/23/23 Herber Lopez MD 420 [facility] 98 [place] [address] Assigned Surgical Provider 05/18/23 07/25/24 Makenzie Romano MD [address] 345594 director financial planning & Neurology - Child & Adolescent Psychiatry 11/08/23 Shani Stephenson MD 420 [place], [place] 255515 Resident Psychiatry 11/08/23 Yomi Campos, PhD [address] [place] [address] 154654 Assigned Behavioral Health Provider 01/27/24 08/25/24 Ita Newton Specialty Repairer Resistance Welding Machines 06/04/24 Kenya Jennings MD [address] [place] [address] 45849 Plastic Surgery 06/04/24 Herber Lopez MD [address] [address] Assigned Dermatology Provider 07/26/24 Сергей Dumont, [facility] Podiatry Professor 08/13/24 Kenya Jennings MD [address] [place] [address] 426295 Assigned Surgical Provider 08/26/24 Jesse Arvizu MD 5775 [place] [address] Assigned Behavioral Health Provider 08/26/24 09/24/24 Luis Dudley MD 240 [place], [place] [phone] Assigned Behavioral Health Provider 09/25/24 10/25/24 Carmen Cole PA-C 6363 [facility] [place] 103 [place], [place] 165765 Assigned Sleep Provider 09/25/24 Racheal Ng MD 2450 [facility] F[address] [place], [place] [phone] Assigned Behavioral Health Provider 10/26/24 documented as of this encounter
--- OUTSIDE RECORDS SUMMARY | 2024-10-28 19:16 | XMS_ITS | Encounter Summary ---
Author Organization [place] Address [address] [place] [address] 81026 Care Team Providers Care Claims Technician Name Role Phone Cindy Ruiz Unavailable Trevor Espino MD Unavailable [phone] Jaci Whitlock APRN SUPERINTENDENT TESTS Unavailable + Doris Ricci MD Unavailable [phone] Yudy Pompa MD Unavailable [phone] Mary Carmen Rodriguez MD Unavailable + Herber Lopez MD Unavailable [phone] Gloria Elizalde MD Unavailable [phone] Mamadou Bowie MD Primary Care Provider [phone] Mamadou Bowie MD Unavailable Makenzie Romano MD Unavailable [phone] Shani Stephenson MD Unavailable Ita Newton Unavailable Unavailable Kenya Jennings MD Unavailable [phone] Herber Lopez MD Unavailable [phone] Сергей Dumont [facility] Unavailable Unavailable Kenya Jennings MD Unavailable Jesse Arvizu MD Unavailable Luis Dudley MD Unavailable Carmen Cole PA-C Unavailable [phone] Racheal Ng MD Unavailable Encounter Details Date Type Department Care Team (Late st Contact Info) Description 09/07/2024 [facility] Medical Advice [facility] [address] [place] [address] [address] Muñoz [phone] Lilia Cervantes Social History Tobacco Use Types Packs/Day Years [...] PHQ-2 Answer Date Recorded PHQ-2 Score 5 09/11/2024 [facility] [place] of Occupat ional Health - Occupational Stress [...] PM CDT Legal Sex Female 3:58 AM RECTIFIER OPERATOR Gender Identity other 11/14/2020 10:33 PM CDT Sexual Orientation Lesbian 06/22/2019 4: 20 AM RECTIFIER OPERATOR documented as of this encounter Plan of Treatment Upcoming Encounters Date Type Department Care Team (Latest Contact Info) Description 10/29/2024 11:00 AM CDT [facility] [address] [facility] [address] [place] [address] 11/23/2024 1:30 PM CDT Office Visit [facility] Mental Health & Addiction [address] [place] [address] [address] [phone] Melanie Boykin MD 6434 [place] [address] Gloria Elizalde MD [address] [place] [address] 505835 12/03/2024 3:00 PM CDT [facility] 57[address] [facility] [address] [place] [phone] Jesse Arvizu MD 5775 [place], [place] 021036 12/15/2024 11:40 AM CDT Ancillary Procedure [facility] Imaging [facility] Clinic [address] [place] [phone] Yudy Pompa MD [address] [place] [address] 749415 12/22/2024 11:40 AM CDT Oncology Visit [facility] [address] [place] [address] [phone] Yudy Pompa MD [address] [place] [address] 790835 02/22/2025 12:30 PM CDT Office Visit [facility]astic [facility] Reconstruct[facility] Clinic [address] [place] [phone] Kenya Jennings MD [address] [place] [address] 207465 03/12/2025 1:00 PM RECTIFIER OPERATOR Office Visit [facility] Internal Medicine [address] [place] [phone] Mamadou Bowie MD [address] [place] [address] 012725 03/23/2025 8:00 AM RECTIFIER OPERATOR Hospital Encounter [facility] PeriOp Services [facility] [place] [phone] Kenya Jennings MD [address] [place] [address] 159605 03/23/2025 8:00 AM RECTIFIER OPERATOR - 03/23/2025 12:05 PM RECTIFIER OPERATOR Surgery [facility]Op [facility] [place] [phone] Kenya Jennings MD [address] [place] [address] 055695 MASTECTOMY, BILATERAL, SIMPLE, NO nipple grafts. OnQ 03/30/2025 10:00 AM RECTIFIER OPERATOR Office Visit [facility] [address] [phone] Lynn Parks APRN [address] [address] 04/16/2025 1:00 PM RECTIFIER OPERATOR Office Visit [facility] Internal Medicine [address] [phone] Mamadou Bowie MD [address] [place] [address] 88427 05/03/2025 4:00 PM RECTIFIER OPERATOR Office Visit [facility] [address] [phone] Kenya Jennings MD [address] [place] [address] 040565 08/17/2025 12:15 PM CDT Office Visit [facility] Dermatology [address] [place] [phone] Herber Lopez MD 420 [facility] 98 [place] [address] Scheduled Procedures Name Priority Associated Diagnoses Date/Ti me MASTECTOMY, BILATERAL, FOR GENDER AFFIRMATION Gender dysphoria in adult 03/23/2025 8:00 AM RECTIFIER OPERATOR documented as of this encounter Visit Diagnoses Not on filedocumented in this encounter Additional Health Concerns Assessment Noted Time PHQ-9 Depression Total Score: 10 025 11:02 AM CDT documented as of this encounter Care Teams Claims Technician Relationship Specialty Start Date End Date Mamadou Bowie MD [address] [place] [address] [phone] PCP - General 03/18/23 Cindy Ruiz HUNTER PHILIP [facility] [address] [place], [place] 517420 Resident Internal Medicine 12/07/14 Trevor Espino MD [address] [place] [address] [phone] Urology 05/16/16 Jaci Whitlock APRN SUPERINTENDENT TESTS [address] [place] [address] 395 [place] [address] Nurse Practitioner - Women's Health 12/14/16 Doris Ricci MD [facility] 2000 [place] [address] Physician Internal Medicine 07/11/20 Yudy Pompa MD [address] [place] [address] 69188 Assigned Cancer Care Provider 08/21/20 Mary Carmen Rodriguez MD 420 [facility] 98 [place], [place] 930755 Dermatology 11/09/20 Herber Lopez MD [address] 598705 Dermapathology 11/09/20 Gloria Elizalde MD [address] [place] [address] 666755 Resident 12/24/22 Mamadou Bowie MD [address] [place] [address] 874905 Assigned PCP 03/23/23 Makenzie Romano MD [address] [place] [address] 864694 proofer prepress & Neurology - Child & Adolescent Psychiatry 11/08/23 Shani Stephenson MD 420 [place], [place] 372825 Resident Psychiatry 11/08/23 Ita Newton Specialty Stopper Maker 06/04/24 Kenya Jennings MD [address] [place] [address] 070285 Plastic Surgery 06/04/24 Herber Lopez MD 420 [facility] 98 [place] [address] Assigned Dermatology Provider 07/26/24 Сергей Dumont GERIATRIC SOCIAL WORKER Dough Mixer Helper 08/13/24 Kenya Jennings MD 420 [facility] 195 [place], [place] 932755 Assigned Surgical Provider 08/26/24 Jesse Arvizu MD 5775 [place], [place] 229746 Assigned Behavioral Health Provider 08/26/24 09/24/24 Luis Dudley MD 240 [facility] [place], [place] 636714 Assigned Behavioral Health Provider 09/25/24 10/25/24 Carmen Cole PA-C 6363 [facility] [place] 103 [place], [place] 180395 Assigned Sleep Provider 09/25/24 Racheal Ng MD 2450 [facility] F282 [place] [address] Assigned Behavioral Health Provider 10/26/24 documented as of this encounter
--- OUTSIDE RECORDS SUMMARY | 2024-10-28 19:17 | XMS_ITS | Encounter Summary ---
Author Organization [place] Address [address] [place] [address] 42068 Care Team Providers Care Auto Battery Builder Name Role Phone Cindy Ruiz Unavailable [phone] Trevor Espino MD Unavailable [phone] Jaci hWitlock APRN VP AD PRODUCTS AND PLANNING Unavailable + Doris Ricci MD Unavailable Yudy Pompa MD Unavailable Mary Carmen Rodriguez MD Unavailable + Herber Lopez MD Unavailable [phone] Gloria Elizalde MD Unavailable [phone] Mamadou Bowie MD Primary Care Provider [phone] Mamadou Bowie MD Unavailable Makenzie Romano MD Unavailable [phone] Shani Stephenson MD Unavailable [phone] Ita Newton Unavailable Unavailable Kenya Jennings MD Unavailable [phone] Herber Lopez MD Unavailable [phone] Сергей Dumont [facility] Unavailable Unavailable Kenya Jennings MD Unavailable [phone] Luis Dudley MD Unavailable [phone] Carmen Cole PA-C Unavailable [phone] Encounter Details Date Type Department Care Team (Latest Contact Info) Description 10/22/2024 Travel Social History Tobacco Use Types Packs/Day [...] relatives? Three times a week 04/02/2024 Attends Christianity Services Not on file 04/02 Active Member of Clubs or Organizations Not on f ile 04/02/2024 Attends Club or Organization Meetings Not on jd e 04/02/2024 Marital Status Not on file 04/02/2024 PHQ-2 Answer Date Recorded PHQ-2 Score 2 10/22/2024 [facility] of Occupat ional [facility] - Occupational Stress Questionnaire Answer Date Recorded [...] PM CDT Legal Sex Female 3:58 AM SUPERINTENDENT STORAGE AREA Gender Identity other 11/14/2020 10:33 PM CDT Sexual Orientation Lesbian 06/22/2019 4: 20 AM SUPERINTENDENT STORAGE AREA documented as of this encounter Plan of Treatment Upcoming Encounters Date Type Department Care Team (Latest Contact Info) Description 10/29/2024 11:00 AM CDT Virtual Visit [facility] [address] [phone] 11/23/2024 1:30 PM CDT Office Visit [facility] Mental Health & Addiction [place] [phone] [address] [place] [address] [phone] Melanie Boykin MD [address] [place] [address] Gloria Elizalde MD 420 [place], [place] 389275 12/03/2024 3:00 PM CDT Office Visit [facility] Psychiatry [facility] [address] [place] [phone] Jesse Arvizu MD [address]75 [place] [address] 12/15/2024 11:40 AM CDT Ancillary Procedure [facility] Imaging Center [facility] Clinic [address]st [place] [phone] Yudy Pompa MD [address] [place] [address] 0[address]71 12/22/2024 11:40 AM CDT Oncology Visit [facility] [address] [place] [address] [phone] Yduy Pompa MD [address] [place] [address] 325855 02/22/2025 12:30 PM CDT Office Visit [facility] Clinic [address] [phone] Kenya Jennings MD [address] [place] [address] 12174 03/12/2025 1:00 PM SUPERINTENDENT STORAGE AREA Office Visit [facility] Internal Medicine [address]th [place] [phone] Mamadou Bowie MD [address] [place] [address] 03/23/2025 8:00 AM SUPERINTENDENT STORAGE AREA Hospital Encounter [facility] PeriOp Services 2450 [place] [phone] Kenya Jennings MD [address] [place] [address] 26890 03/23/2025 8:00 AM SUPERINTENDENT STORAGE AREA - 03/23/2025 12:05 PM SUPERINTENDENT STORAGE AREA Surgery [facility] Per[facility]Op Services [address] [place] [phone] Kenya Jennings MD [address] [place] [address] 87088 MASTECTOMY, BILATERAL, SIMPLE, NO nipple grafts. OnQ 03/30/2025 10:00 AM SUPERINTENDENT STORAGE AREA Office Visit [facility] [address] [phone] Lynn Parks APRN [address] 834215 04/16/2025 1:00 PM SUPERINTENDENT STORAGE AREA Office Visit [facility] Internal Medicine [address] [phone] Mamadou Bowie MD [address] [place] [address] 455825 05/03/2025 4:00 PM SUPERINTENDENT STORAGE AREA Office Visit [facility] [address] [phone] Kenya Jennings MD [address] [place] [address] 228825 08/17/2025 12:15 PM CDT Office Visit [facility] Dermatology Clinic [address] [place] [phone] Herber Lopez MD [address] [place] [address] 846125 Scheduled Procedures Name Priority Associated Diagnoses Date/Ti me MASTECTOMY, BILATERAL, FOR GENDER AFFIRMATION Gender dysphoria in adult 03/23/2025 8:00 AM SUPERINTENDENT STORAGE AREA documented as of this encounter Goals Goal [...] documented as of this encounter Care Teams Auto Battery Builder Relationship Specialty Start Date End Date Mamadou Bowie MD [address] [place] [address] 80059 PCP - General 03/18/23 Cindy Ruiz HUNTER PHILIP [address] [place] [address] Resident Internal Medicine 12/07/14 Trevor Espino MD [address] [place] [address] 03144 Urology 05/16/16 Jaci Whitlock APRN VP AD PRODUCTS AND PLANNING [address] [place] [address]62 Nurse Practitioner - Women's Health 12/14/16 Doris Ricci MD [facility] 1999 [place] [address] Physician Internal Medicine 07/11/20 Yudy Pompa MD [address] [place] [address] 22693 Assigned Cancer Care Provider 08/21/20 Mary Carmen Rodriguez MD [address] [address] Dermatology 11/09/20 Herber Lopez MD [address] [place] [address] 58350 Dermapathology 11/09/20 Gloria Elizalde MD [address] [place] [address]35 Resident 12/24/22 Mamadou Bowie MD [address] [place] [address] 78850 Assigned PCP 03/23/23 Makenzie Romano MD [address] [place] [address] 75326 computer networking instructor adjunct & Neurology - Child & Adolescent Psychiatry 11/08/23 Shani Stephenson MD [address] [place] [address] 27559 Resident Psychiatry 11/08/23 Ita Newton Specialty Securities Underwriter 06/04/24 Kenya Jennings MD [address] [place] [address] 52432 Plastic Surgery 06/04/24 Herber Lopez MD [address] [place] [address] 77[address] Assigned Dermatology Provider 07/26/24 Сергей Dumont [facility] Button Station Worker 08/13/24 Kenya Jennings MD [address] [place] [address] 289245 Assigned Surgical Provider 08/26/24 Luis Dudley MD 240 [facility] [place] [address] Assigned Behavioral Health Provider 09/25/24 10/25/24 Carmen Cole PA-C 6363 RUPERT Ruiz [facility] 103 [place], [place] 948075 Assigned Sleep Provider 09/25/24 documented as of this encounter
--- OUTSIDE RECORDS SUMMARY | 2024-10-28 19:17 | XMS_ITS | Encounter Summary ---
Author Organization [place] Address [address] [place] [address] 54438 Care Team Providers Care Legislators Name Role Phone Cindy Ruiz Unavailable Trevor Espino MD Unavailable [phone] Jaci Whitlock APRN LANGUAGE PATHOLOGIST Unavailable + Doris Ricci MD Unavailable Yudy Pompa MD Unavailable [phone] Mary Carmen Rodriguez MD Unavailable + Herber Lpoez MD Unavailable +[phone] Gloria Elizalde MD Unavailable [phone] Mamadou Bowie MD Primary Care Provider [phone] Mamadou Bowie MD Unavailable Makenzie Romano MD Unavailable [phone] Shani Stephenson MD Unavailable [phone] Ita Newton Unavailable Unavailable Kenya Jennnigs MD Unavailable +[phone] Herber Lopez MD Unavailable +[phone] Сергей Dumont [facility] Unavailable Unavailable Kenya Jennings MD Unavailable +[phone] Carmen Cole PA-C Unavailable +[phone] Racheal Ng MD Unavailable +[phone] Encounter Details Date Type Department Care Team (Latest Contact Info) Description 10/26/2024 Travel Social History Tobacco Use Types Packs/Day [...] Answer Date Recorded PHQ-2 Score 2 10/26/2024 [facility] of Occupat ional Health - Occupational Stress [...] building, in an overnight usp, or couch-surfing.) No 10/26/2024 Are you worried [...] PM CDT Legal Sex Female 3:58 AM REPAIRER SWITCHGEAR Gender Identity other 11/14/2020 10:33 PM CDT Sexual Orientation Lesbian 06/22/2019 4: 20 AM REPAIRER SWITCHGEAR documented as of this encounter Plan of Treatment Upcoming Encounters Date Type Department Care Team (Latest Contact Info) Description 10/29/2024 11:00 AM CDT Virtual Visit [facility] [address] [address] 11/23/2024 1:30 PM CDT Office Visit [facility] [place] [phone] [place] [phone] Melanie Boykin MD [address] [place] [address] 799524 Gloria Elizalde MD 420 [place], [place] 759825 12/03/2024 3:00 PM CDT [facility] [address] [phone] Jesse Arvizu MD 5775 [place] [address] 12/15/2024 11:40 AM CDT Ancillary Procedure [facility] CT Clinic [address] 1st [place] [phone] Yudy Pompa MD [address] [place] [address] 12/22/2024 11:40 AM CDT Oncology Visit [facility] [address] [place] [phone] Yudy Pompa MD [address] [place] [address] 211805 02/22/2025 12:30 PM CDT Office Visit [facility] [address] 4th [place] [phone] Kenya Jennings MD [address] [place] [address] 9[address] 03/12/2025 1:00 PM REPAIRER SWITCHGEAR Office Visit [facility] Internal Medicine [address] 4th [place] [phone] Mamadou Bowie MD [address] [place] [address] 03/23/2025 8:00 AM REPAIRER SWITCHGEAR Hospital Encounter [facility] PeriOp Services 2450 [place] [phone] Kenya Jennings MD [address] [place] [address] 03/23/2025 8:00 AM REPAIRER SWITCHGEAR - 03/23/2025 12:05 PM REPAIRER SWITCHGEAR Surgery [facility] PeriOp Services [address] [place] [phone] Kenya Jennings MD [address] [place] [address] 095045 MASTECTOMY, BILATERAL, SIMPLE, NO nipple grafts. OnQ 03/30/2025 10:00 AM REPAIRER SWITCHGEAR Office Visit [facility] [address] [phone] Lynn Parks APRN [address] 293225 04/16/2025 1:00 PM REPAIRER SWITCHGEAR Office Visit [facility] Internal Medicine [address] [phone] Mamadou Bowie MD [address] [place] [address] 668025 05/03/2025 4:00 PM REPAIRER SWITCHGEAR Office Visit [facility] [address] [phone] Kenya Jennings MD [address] [place] [address] 97[address] 08/17/2025 12:15 PM CDT Office Visit [facility] Dermatology Clinic [address] [phone] Herber Lopez MD [address] [place] [address] 960075 Scheduled Procedures Name Priority Associated Diagnoses Date/Ti me MASTECTOMY, BILATERAL, FOR GENDER AFFIRMATION Gender dysphoria in adult 03/23/2025 8:00 AM REPAIRER SWITCHGEAR documented as of this encounter Goals Goal [...] documented as of this encounter Care Teams Legislators Relationship Specialty Start Date End Date Mamadou Bowie MD [address] [place] [address]39[address] PCP - General 03/18/23 Cindy Ruiz [facility] [place] [address] Resident Internal Medicine 12/07/14 Trevor Espino MD [address] [place] [address] 525155 Urology 05/16/16 Jaci Whitlock APRN LANGUAGE PATHOLOGIST [address] [place] [address] 96479 Nurse Practitioner - Women's Health 12/14/16 Doris Ricci MD [facility] [address] [place] [address] Physician Internal Medicine 07/11/20 Yudy Pompa MD [address] [place] [address] 80710 Assigned Cancer Care Provider 08/21/20 Mary Carmen Rodriguez MD [address] [address] Dermatology 11/09/20 Herber Lopez MD [address] [place] [address] Dermapathology 11/09/20 Gloria Elizalde MD [address] [place] [address] 17727 Resident 12/24/22 Mamadou Bowie MD [address] [place] [address] Assigned PCP 03/23/23 Makenzie Romano MD [address] [place] [address] 38667 facility manager & Neurology - Child & Adolescent Psychiatry 11/08/23 Shani Stephenson MD [address] [place] [address] Resident Psychiatry 11/08/23 Ita Newton Specialty Antisqueak Worker 06/04/24 Kenya Jennings MD [address] [place] [address] 55857 Plastic Surgery 06/04/24 Herber Lopez MD [address] [place] [address] Assigned Dermatology Provider 07/26/24 Сергей Dumont [facility] Director Medical Affairs 08/13/24 Kenya Jennings MD [address] [place] [address] [place] [address] Assigned Surgical Provider 08/26/24 Carmen Cole PA-C [address] [facility] [address] [place], [place] 169875 Assigned Sleep Provider 09/25/24 Racheal Ng MD [address] [facility]82 [place], [place] [phone] Assigned Behavioral Health Provider 10/26/24 documented as of this encounter
--- OUTSIDE RECORDS SUMMARY | 2024-10-28 19:17 | XMS_ITS | Encounter Summary ---
Author Organization [place] Address [address] [place] [address] 45791 Care Team Providers Care Torch Cutter Name Role Phone Cindy Ruiz Unavailable [phone] Trevor Espino MD Unavailable [phone] Melanie Boykin MD Unavailable [phone] Jaci Whitlock APRN DEVELOPMENT SCIENTIST Unavailable + Doris Ricci MD Unavailable Yudy Pompa MD Unavailable [phone] Jessi Mcfadden MD Unavailable Mary Carmen Rodriguez MD Unavailable + Herber Lopez MD Unavailable [phone] Yomi Izquierdo DPEulalia Unavailable [phone] Torey Luna MD Primary Care Provider Torey Luna MD Unavailable [phone] Maurilio Carlson MD Unavailable Herber Lopez MD Unavailable [phone] Gloria Elizalde MD Unavailable [phone] Olena Smith SENIOR PROGRAM ANALYST Unavailable Unavailable Maurilio Carlson MD Unavailable Mamadou Bowie MD Primary Care Provider [phone] Mamadou Bowie MD Unavailable Herber Lopez MD Unavailable [phone] Makenzie Romano MD Unavailable [phone] Shani Stephenson MD Unavailable [phone] Andres Yomi Alek PhD Unavailable +[phone] Ita Newton Unavailable Unavailable Kenya Jennings MD Unavailable [phone] Herber Lopez MD Unavailable [phone] Сергей Dumont [facility] Unavailable Unavailable Kenya Jennings MD Unavailable [phone] Jesse Arvizu MD Unavailable Luis Dudley MD Unavailable [phone] Carmen Cole PA-C Unavailable +[phone] Racheal Ng MD Unavailable + [phone] Encounter Details Date Type Department Care Team (Late st Contact Info) Description 02/08/2022 [facility] Cancer Clinic [address] [place] [address] Jeniffer Rogers Social History Tobacco Use Types Packs/Day Years Used Date Smoking Tobacco: Never Smokeless Tobacco: Never Alcohol Use Standard Drinks/Week Comments No 0 (1 standard drink = 0.6 oz pur e alcohol) PHQ-2 Answer Date Recorded PHQ-2 Score 2 01/16/2022 Comments No Sex and Gender Information Value Date Recorded Sex Assigned at Female 11/14/2020 10:33 PM CDT Legal Sex Female 3:58 AM ELECTRONIC ORGAN TECHNICIAN Gender Identity other 11/14/2020 10:33 PM CDT Sexual Orientation Lesbian 06/22/2019 4: 20 AM ELECTRONIC ORGAN TECHNICIAN COVID-19 Exposure Response Date Recorded In the last 10 days, have yo u been in contact with someone who was confirmed or suspected to have Coronavirus/COVID-19? No / Unsure 01/16/2022 10:22 AM CDT documented as of this encounter Plan of Treatment Upcoming Encounters Date Type Department Care Team (Latest Contact Info) Description 10/29/2024 11:00 AM CDT Virtual Visit [facility] 5775 [facility] [address] [place] [phone] 11/23/2024 1:30 PM CDT Office Visit [facility] Addiction [address] [address] [phone] Melanie Boykin MD 2450 [place], [place] 777194 Gloria Elizalde MD 420 [place], [place] 495535 12/03/2024 3:00 PM CDT [facility] 5775 [facility] [address] [place] [phone] Jesse Arvizu MD [address] [place] [address] 12/15/2024 11:40 AM CDT Ancillary Procedure [facility] Imaging Center CT Clinic [address] 1st [place] [phone] Yudy Pompa MD [address] [place] [address] 890195 12/22/2024 11:40 AM CDT Oncology Visit [facility] [address] [place] [address] [phone] Yudy Pompa MD [address] [place] [address] 069345 02/22/2025 12:30 PM CDT Office Visit [facility] Pl[facility] Reconstructive Surgery Clinic [address] 4th [place] [phone] Kenya Jennings MD [address] [place] [address] 62585 03/12/2025 1:00 PM ELECTRONIC ORGAN TECHNICIAN Office Visit [facility] Internal Medicine [address] [phone] Mamadou Bowie MD [address] [place] [address] 832405 03/23/2025 8:00 AM ELECTRONIC ORGAN TECHNICIAN Hospital Encounter [facility] PeriOp Services [address] [place] [address] [phone] Kenya Jennings MD [address] [place] [address] 93[address] 03/23/2025 8:00 AM ELECTRONIC ORGAN TECHNICIAN - 03/23/2025 12:05 PM ELECTRONIC ORGAN TECHNICIAN Surgery [facility] PeriOp Services [address] [place] [address] [phone] Kenya Jennings MD [address] [place] [address] 256565 MASTECTOMY, BILATERAL, SIMPLE, NO nipple grafts. OnQ 03/30/2025 10:00 AM ELECTRONIC ORGAN TECHNICIAN Office Visit [facility] Surgery Clinic [address] [phone] Lynn Parks APRN [address] [address] 04/16/2025 1:00 PM ELECTRONIC ORGAN TECHNICIAN Office Visit [facility] Internal Medicine [address] [phone] Mamadou Bowie MD [address] [place] [address] 624145 05/03/2025 4:00 PM ELECTRONIC ORGAN TECHNICIAN Office Visit [facility] Plastic and Reconstructive Surgery Clinic [place] [address] [place] [address] 4th [place] [phone] Kenya Jennings MD 420 [facility] [address] [place], [place] 883545 08/17/2025 12:15 PM CDT Office Visit [facility] Dermatology Clinic [place] [address] [place] [address] 3rd [place] [phone] Herber Lopez MD 420 [facility] 98 [place], [place] 312525 Scheduled Procedures Name Priority Associated Diagnoses Date/Ti me MASTECTOMY, BILATERAL, FOR GENDER AFFIRMATION Gender dysphoria in adult 03/23/2025 8:00 AM ELECTRONIC ORGAN TECHNICIAN documented as of this encounter Visit Diagnoses Not on filedocumented in this encounter Additional Health Concerns Assessment Noted Time PHQ-9 Depression Total Score: 4 01/17/20 22 7:54 AM CDT documented as of this encounter Care Teams Torch Cutter Relationship Specialty Start Date End Date Torey Luna MD [address] [place] [address] [phone] PCP - General Internal Medicine 04/19/21 03/17/23 Mamadou Bowie MD [address] [place] [address] 96802 PCP - General 03/18/23 C[address] Ru[place] [address] Resident Internal Medicine 12/07/14 Trevor Espino MD [address] [place] [address] 631165 Urology 05/16/16 eMlanie Boykin MD [address] [place] [address] 219114 communications superintendent 12/10/16 11/07/23 Jaci Whitlock APRN DEVELOPMENT SCIENTIST [address] [place] [address] 510615 Nurse Practitioner - Women's Health 12/14/16 Doris Ricci MD [facility] & [address] [address] Physician Internal Medicine 07/11/20 Yudy Pompa MD [address] [place] [address] 804655 Assigned Cancer Care Provider 08/21/20 Jessi Mcfadden MD [address] [place] [address] F282/2A [place], [place] 089454 Resident Psychiatry 11/08/20 12/23/22 Mary Carmen Rodriguez MD [address] [place] [address] 049925 Dermatology 11/09/20 Herber Lopez MD [address] [place] [address] 190225 Dermapathology 11/09/20 Yomi Izquierdo DPM 19011 [facility] 300 [place] [address] Assigned Musculoskeletal Provider 12/04/20 06/08/22 Torey Luna MD [address] [place] [address] 39984 Assigned PCP 04/23/21 03/22/23 Maurilio Carlson MD [address] [place] [address] 34077 Assigned Surgical Provider 11/18/21 11/23/22 Herber Lopez MD [address] [place] [address] 44403 Assigned Surgical Provider 11/24/22 12/21/22 Gloria Elizalde MD [address] [place] [address] 38085 Resident 12/24/22 Olena Smith [facility] Specialty Real Estate Coordinator Press Tender Short Goods - Clinical 12/25/22 01/03/23 [place] [address] [place] [address] Assigned Surgical Provider 12/22/22 05/17/23 Mamadou Bowie MD [address] [place] [address] 67405 Assigned PCP 03/23/23 Herber Lopez MD [address] [place] [address] 15257 Assigned Surgical Provider 05/18/23 07/25/24 Makenzie Romano MD [address] [address] communications superintendent & Neurology - Child & Adolescent Psychiatry 11/08/23 Shani Stephenson MD 420 [place], [place] 685785 Resident Psychiatry 11/08/23 Yomi Campos, PhD [address] [place] [address]1975 Assigned Behavioral Health Provider 01/27/24 08/25/24 Ita Newton Specialty Real Estate Coordinator 06/04/24 Kenya Jennings MD 420 [facility] [address] [place], [place] 204385 Plastic Surgery 06/04/24 Herber Lopez MD 420 [facility] 98 [place], [place] 297535 Assigned Dermatology Provider 07/26/24 Сергей Dumont, [facility] Press Tender Short Goods 08/13/24 Kenya Jennings MD 420 [facility] [address] [place], [place] 581835 Assigned Surgical Provider 08/26/24 Jesse Arvizu MD 5775 [place] [address] Assigned Behavioral Health Provider 08/26/24 09/24/24 Luis Dudley MD [address] [place] [address] Assigned Behavioral Health Provider 09/25/24 10/25/24 Carmen Cole PA-C [address] [place] [address] Assigned Sleep Provider 09/25/24 Racheal Ng MD [address] [place] [address] [place], [place] 979514 Assigned Behavioral Health Provider 10/26/24 documented as of this encounter
--- OUTSIDE RECORDS SUMMARY | 2024-10-28 19:17 | XMS_ITS | Encounter Summary ---
Author Organization [facility] Address [address] [place] [address]45 Care Team Providers Care Machine Shop Lead Man Name Role Phone Cindy Ruiz Unavailable [phone] Trevor Espino MD Unavailable [phone] Jaci Whitlock APRN CLEANER HOUSEKEEPING Unavailable + Doris Ricci MD Unavailable Yudy Pompa MD Unavailable [phone] Mary Carmen Rodriguez MD Unavailable + Herber Lopez MD Unavailable +[phone] Gloria Elizalde MD Unavailable [phone] Mamadou Bowie MD Primary Care Provider [phone] Mamadou Bowie MD Unavailable Makenzie Romano MD Unavailable [phone] Shani Stephenson MD Unavailable [phone] Ita Newton Unavailable Unavailable Kenya Jennings MD Unavailable [phone] Herber Lopez MD Unavailable +[phone] Сергей Dumont [facility] Unavailable Unavailable Kenya Jennings MD Unavailable [phone] Luis Dudley MD Unavailable [phone] Carmen Cole PA-C Unavailable +[phone] Encounter Details Date Type Department Care Team (Latest Contact Info) Description 10/21/2024 Travel Social History Tobacco Use Types Packs/Day [...] relatives? Three times a week 04/02/2024 Attends Buddhist Services Not on file 04/02 Active Member of Clubs or Organizations Not on f ile 04/02/2024 Attends Club or Organization Meetings Not on jd e 04/02/2024 Marital Status Not on file 04/02/2024 PHQ-2 Answer Date Recorded PHQ-2 Score 2 10/22/2024 [facility] of Occupat ional [...] PM CDT Legal Sex Female 3:58 AM FINISHER FIBERGLASS BOAT PARTS Gender Identity other 11/14/2020 10:33 PM CDT Sexual Orientation Lesbian 06/22/2019 4: 20 AM FINISHER FIBERGLASS BOAT PARTS documented as of this encounter Plan of Treatment Upcoming Encounters Date Type Department Care Team (Latest Contact Info) Description 10/29/2024 11:00 AM CDT Virtual Visit [facility] [address] [phone] 11/23/2024 1:30 PM CDT Office Visit [facility] Mental Health & Addiction [place] [phone] [address] [place] [address] [phone] Melanie Boykin MD [address] [place] [address] Gloria Elizalde MD 420 [place], [place] 639665 12/03/2024 3:00 PM CDT Office Visit [facility] Psychiatry [facility] [address] [place] [address] Jesse Arvizu MD [address]75 [place] [address] 12/15/2024 11:40 AM CDT Ancillary Procedure [facility] Imaging Center CT Clinic [address] 1st [place] [phone] Yudy Pompa MD [address] [place] [address] 12/22/2024 11:40 AM CDT Oncology Visit [facility] [address] [place] [address] [phone] Yudy Pompa MD [address] [place] [address] 474695 02/22/2025 12:30 PM CDT Office Visit [facility] Plastic and Reconstructive Surgery Clinic [address] [phone] Kenya Jennings MD [address] [place] [address] 61220 03/12/2025 1:00 PM FINISHER FIBERGLASS BOAT PARTS Office Visit [facility] Internal Medicine [address] [place] [phone] Mamadou Bowie MD [address] [place] [address] 89427 03/23/2025 8:00 AM FINISHER FIBERGLASS BOAT PARTS Hospital Encounter [facility] PeriOp Services 2450 [place] [phone] Kenya Jennings MD [address] [place] [address] 86459 03/23/2025 8:00 AM FINISHER FIBERGLASS BOAT PARTS - 03/23/2025 12:05 PM FINISHER FIBERGLASS BOAT PARTS Surgery [facility] Services [address] [place] [phone] Kenya Jennings MD [address] [place] [address] 01573 MASTECTOMY, BILATERAL, SIMPLE, NO nipple grafts. OnQ 03/30/2025 10:00 AM FINISHER FIBERGLASS BOAT PARTS Office Visit [facility] Plastic and Reconstructive Surgery Clinic [address] [phone] Lynn Parks APRN [address] 489775 04/16/2025 1:00 PM FINISHER FIBERGLASS BOAT PARTS Office Visit [facility] Internal Medicine [address] [phone] Mamadou Bowie MD [address] [place] [address] 486915 05/03/2025 4:00 PM FINISHER FIBERGLASS BOAT PARTS Office Visit [facility] Plastic and Reconstructive Surgery Clinic [address] [phone] Kenya Jennings MD [address] [place] [address] 686255 08/17/2025 12:15 PM CDT Office Visit [facility] Dermatology Clinic [address]rd [place] [phone] Herber Lopez MD [address] [place] [address] [phone] Scheduled Procedures Name Priority Associated Diagnoses Date/Ti me MASTECTOMY, BILATERAL, FOR GENDER AFFIRMATION Gender dysphoria in adult 03/23/2025 8:00 AM FINISHER FIBERGLASS BOAT PARTS documented as of this encounter Goals Goal [...] documented as of this encounter Care Teams Machine Shop Lead Man Relationship Specialty Start Date End Date Mamadou Bowie MD [address] [place] [address] 02546 PCP - General 03/18/23 Cindy Ruiz [facility] [address] [place] [address] Resident Internal Medicine 12/07/14 Trevor Espino MD [address] [place] [address]603 Urology 05/16/16 Jaci Whitlock APRN CLEANER HOUSEKEEPING [address] [place] [address] 78283 Nurse Practitioner - Women's Health 12/14/16 Doris Ricci MD [facility] [address] [place] [address] Physician Internal Medicine 07/11/20 Yudy Pompa MD [address] [place] [address] 09123 Assigned Cancer Care Provider 08/21/20 Mary Carmen Rodriguez MD [address] [address] Dermatology 11/09/20 Herber Lpoez MD [address] [place] [address] 14880 Dermapathology 11/09/20 Gloria Elizalde MD [address] [place] [address] 95823 Resident 12/24/22 Mamadou Bowie MD [address] [place] [address] 48766 Assigned PCP 03/23/23 Makenzie Romano MD [address] [place] [address] 47893 steel erecting pusher & Neurology - Child & Adolescent Psychiatry 11/08/23 Shani Stephenson MD [address] [place] [address] 60202 Resident Psychiatry 11/08/23 Ita Newton Specialty Mass Spectrometry Specialist 06/04/24 Kenya Jennings MD [address] [place] [address] 54014 Plastic Surgery 06/04/24 Herber Lopez MD [address] [place] [address] 43215 Assigned Dermatology Provider 07/26/24 Сергей Dumont [facility] Pea Viner Mechanic 08/13/24 Kenya Jennings MD [address] [place] [address] 914165 Assigned Surgical Provider 08/26/24 Luis Dudley MD [address] [facility] [place] [place] 361794 Assigned Behavioral Health Provider 09/25/24 10/25/24 Carmen Cole PA-C [address] [facility] 103 [place], [place] 955935 Assigned Sleep Provider 09/25/24 documented as of this encounter
--- OUTSIDE RECORDS SUMMARY | 2024-10-28 19:17 | XMS_ITS | Encounter Summary ---
Author Organization [facility] Address [address] [place] [address] Care Team Providers Care Wrapper Stemmer Operator Name Role Phone Cindy Ruiz Unavailable [phone] Trevor Espino MD Unavailable [phone] Melanie Boykin MD Unavailable [phone] Jaci Whitlock APRN [facility] Unavailable + Doris Ricci MD Unavailable +[phone] Yudy Pompa MD Unavailable [phone] Jessi Mcfadden MD Unavailable Mary Carmen Rodriguez MD Unavailable + Herber Lopez MD Unavailable +[phone] Yomi Izquierdo DPEulalia Unavailable +[phone] Torey Luna MD Primary Care Provider Torey Luna MD Unavailable [phone] Maurilio Carlson MD Unavailable Herber Lopez MD Unavailable [phone] Gloria Elizalde MD Unavailable [phone] Olena Smith GEOSPATIAL ENGINEER Unavailable Unavailable Maurilio Carlson MD Unavailable Mamadou Bowie MD Primary Care Provider [phone] Mamadou Bowie MD Unavailable Herber Lopez MD Unavailable Makenzie Romano MD Unavailable [phone] Shani Stephenson MD Unavailable Andres Yomi Alek PhD Unavailable +[phone] Ita Newton Unavailable Unavailable Kenya Jennings MD Unavailable +[phone] Herber Lopez MD Unavailable [phone] Сергей Dumont [facility] Unavailable Unavailable Kenya Jennings MD Unavailable Jesse Arvizu MD Unavailable Luis Dudley MD Unavailable [phone] Carmen Cole PA-C Unavailable +[phone] Racheal Ng MD Unavailable + [phone] Encounter Details Date Type Department Care Team (Late st Contact Info) Description 05/02/2022 [facility] [address] [place] [address] [facility] Social History Tobacco Use Types Packs/Day Years Used Date Smoking Tobacco: Never Smokeless Tobacco: Never Alcohol Use Standard Drinks/Week Comments No 0 (1 standard drink = 0.6 oz pur e alcohol) PHQ-2 Answer Date Recorded PHQ-2 Score 2 04/10/2022 Comments No Sex and Gender Information Value Date Recorded Sex Assigned at Female 11/14/2020 10:33 PM CDT Legal Sex Female 3:58 AM PUTTY REMOVER Gender Identity other 11/14/2020 10:33 PM CDT Sexual Orientation Lesbian 06/22/2019 4: 20 AM PUTTY REMOVER documented as of this encounter Plan of Treatment Upcoming Encounters Date Type Department Care Team (Latest Contact Info) Description 10/29/2024 11:00 AM CDT Virtual Visit [facility] 5775 [facility] [address] [place] [address] 11/23/2024 1:30 PM CDT Office Visit [facility] Mental Health & Addiction [address] [phone] Melanie Boykin MD [address] [place] [address] Gloria Elizalde MD [address] [place] [address] 258895 12/03/2024 3:00 PM CDT [facility] 5775 [facility] [address] [place] [phone] Jesse Arvizu MD 5775 [place] [address] 12/15/2024 11:40 AM CDT Ancillary Procedure [facility] Imaging [facility] CT Clinic [address] [place] [phone] Yudy Pompa MD [address] [place] [address] 159425 12/22/2024 11:40 AM CDT Oncology Visit [facility] [address] [place] [phone] Yudy Pompa MD [address] [place] [address] 02/22/2025 12:30 PM CDT Office Visit [facility] Plastic [facility] Reconstructive Surgery Clinic [address] [place] [phone] Kenya Jennings MD [address] [place] [address] 03/12/2025 1:00 PM PUTTY REMOVER Office [facility] Internal Medicine [address] [phone] Mamadou Bowie MD [address] [place] [address] 03/23/2025 8:00 AM PUTTY REMOVER Hospital Encounter [facility] PeriOp Services [address] [place] [phone] Kenya Jennings MD [address] [place] [address] 921855 03/23/2025 8:00 AM PUTTY REMOVER - 03/23/2025 12:05 PM PUTTY REMOVER Surgery [facility] [address] [place] [phone] Kenya Jennings MD [address] [place] [address] 527725 MASTECTOMY, BILATERAL, SIMPLE, NO nipple grafts. OnQ 03/30/2025 10:00 AM PUTTY REMOVER Office Visit [facility] Plastic and Reconstructive Surgery [address] [phone] Lynn Parks APRN [address] [address] 04/16/2025 1:00 PM PUTTY REMOVER Office Visit [facility] Internal Medicine [address] [phone] Mamadou Bowie MD [address] [place] [address] 05/03/2025 4:00 PM PUTTY REMOVER Office Visit [facility] Plastic and Reconstructive Surgery [address] [phone] Kenya Jennings MD 420 [facility] [address] [place] [address] 08/17/2025 12:15 PM CDT Office Visit [facility] Dermatology [facility] [place] 909 [facility] [address]rd [place] [phone] Herber Lopez MD 420 [facility] [address] [place], [place] 8069[address] Scheduled Procedures Name Priority Associated Diagnoses Date/Ti me MASTECTOMY, BILATERAL, FOR GENDER AFFIRMATION Gender dysphoria in adult 03/23/2025 8:00 AM PUTTY REMOVER documented as of this encounter Visit Diagnoses Not on filedocumented in this encounter Additional Health Concerns Assessment Noted Time PHQ-9 Depression Total Score: 6 04/09/20 22 10:27 PM PUTTY REMOVER documented as of this encounter Care Teams Wrapper Stemmer Operator Relationship Specialty Start Date End Date Torey Luna MD [address] [place] [address] PCP - General Internal Medicine 04/19/21 03/17/23 Mamadou Bowie MD [address] [place] [address] 101[address] PCP - General 03/18/[address] [place] [address] [place] [address] Resident Internal Medicine 12/07/14 Trevor Espino MD [address] [place] [address] Urology 05/16/16 Melanie Boykin MD [address] [place] [address] 127[address] industrial machine system technician 12/10/16 11/07/23 Jaci Whitlock APRN [facility] [address] [place] [address] [address] [place] [address] Nurse Practitioner - Women's Health 12/14/16 Doris Ricci MD [facility] & [address] [address] Physician Internal Medicine 07/11/20 Yudy Pompa MD [address] [place] [address] 116[address] Assigned Cancer Care Provider 08/21/20 Jessi Mcfadden MD [address] [place] [address] F282/2A [place] [address] Resident Psychiatry 11/08/20 12/23/22 Mary Carmen Rodriguez MD [address] [place] [address] [address] [place] [address] Dermatology 11/09/20 Herber Lopez MD [address] [place] [address] 98 [place] [address] Dermapathology 11/09/20 Yomi Izquierdo DPM [address] [facility] 300 [place] [address] Assigned Musculoskeletal Provider 12/04/20 06/08/22 Torey Luna MD [address] [place] [address] Assigned PCP 04/23/21 03/22/23 Maurilio Carlson MD [address] [place] [address] Assigned Surgical Provider 11/18/21 11/23/22 Herber Lopez MD [address] [place] [address] Assigned Surgical Provider 11/24/22 12/21/22 Gloria Elizalde MD [address] [place] [address] Resident 12/24/22 Olena Smith [facility] Specialty Coordinate Measuring Machine Programmer Medical Delivery Driver - Clinical 12/25/22 01/03/23 [place] [address] [place] [address] Assigned Surgical Provider 12/22/22 05/17/23 Mamadou Bowie MD [address] [place] [address] Assigned PCP 03/23/23 Herber Lopez MD [address] [place] [address] Assigned Surgical Provider 05/18/23 07/25/24 Makenzie Romano MD 2450 [facility] [address] [address] industrial machine system technician & Neurology - Child & Adolescent Psychiatry 11/08/23 Shani Stephenson MD [address] [facility] [address] [place], [place] 387[address] Resident Psychiatry 11/08/23 Yomi Campos, PhD [address] [place] [address] F256 [place] [address] Assigned Behavioral Health Provider 01/27/24 08/25/24 Ita Newton Specialty Coordinate Measuring Machine Programmer 06/04/24 Kenya Jennings MD 420 [facility] [address] [place], [place] 325795 Plastic Surgery 06/04/24 Herber Lopez MD 420 [facility] [address] [place], [place] 733845 Assigned Dermatology Provider 07/26/24 Сергей Dumont [facility] Medical Delivery Driver 08/13/24 Kenya Jennings MD 420 [facility] [address] [place], [place] 194715 Assigned Surgical Provider 08/26/24 Jesse Arvizu MD 5775 [place], [place] 759746 Assigned Behavioral Health Provider 08/26/24 09/24/24 Luis Dudley MD [address] [place] [address] 964514 Assigned Behavioral Health Provider 09/25/24 10/25/24 Carmen Cole PA-C 6363 [facility] 103 [place], [place] 063035 Assigned Sleep Provider 09/25/24 Racheal Ng MD [facility] [address] [address] Assigned Behavioral Health Provider 10/26/24 documented as of this encounter
--- OUTSIDE RECORDS SUMMARY | 2024-10-28 19:17 | XMS_ITS | Encounter Summary ---
Author Organization [facility] Address [address] [place] [address] Care Team Providers Care Manufacturing Inspector Name Role Phone Cindy Ruiz Unavailable [phone] Trevor Espino MD Unavailable [phone] Jaci Whitlock APRN CHIROPRACTIC DOCTOR Unavailable + Doris Ricci MD Unavailable Yudy Pompa MD Unavailable [phone] Mary Camren Rodriguez MD Unavailable + Herber Lopez MD Unavailable [phone] Gloria Elizalde MD Unavailable [phone] Mamadou Bowie MD Primary Care Provider [phone] Mamadou Bowie MD Unavailable Makenzie Romano MD Unavailable [phone] Shani Stephenson MD Unavailable [phone] Ita Newton Unavailable Unavailable Kenya Jennings MD Unavailable [phone] Herber Lopez MD Unavailable +[phone] Сергей Dumont [facility] Unavailable Unavailable Kenya Jennings MD Unavailable [phone] Carmen Cole PA-C Unavailable +[phone] Racheal Ng MD Unavailable [phone] Reason for Visit * Reason Comments Sleep Problem Encounter Details Date Type Department Care Team (Late st Contact Info) Description 10/26/2024 Documentation Only [facility] Sleep Center [facility] Care [address] [place] [address], [address] [place] [address] Mary Perez Sleep Problem Social History Tobacco Use Types [...] relatives? Three times a week 04/02/2024 Attends Sikhism Services Not on file 04/02 Active Member of Clubs or Organizations Not on f ile 04/02/2024 Attends Club or Organization Meetings Not on jd e 04/02/2024 Marital Status Not on file 04/02/2024 PHQ-2 Answer Date Recorded PHQ-2 Score 2 10/26/2024 [facility] of Occupat ional Health - Occupational Stress [...] in an overnight group home, or couch-surfing.) No 10/26/2024 Are you worried [...] PM CDT Legal Sex Female 3:58 AM DIGITAL X RAY SERVICE ENGINEER Gender Identity other 11/14/2020 10:33 PM CDT Sexual Orientation Lesbian 06/22/2019 4: 20 AM DIGITAL X RAY SERVICE ENGINEER documented as of this encounter Progress Notes * Mray Perez - 10/26/2024 4:29 PM CDTSummary: MASK CONSULTATION - 30 DAY MASK EXCHANGE DATE: 10/26/2024 LOCATION OF MASK FITTING: GRANGER REASON FOR MASK FITTING: WANTING TO TRY DIFFERENT PILLOWS, WELL 2 OF THE WIDE CRADLES DISCUSSED/VIEWED THE FOLLOWING MASKS: AIRFIT P30I, AIRFIT N30I MASK AND SIZE SELECTED: P30I FITPACK WITH 2 N30I WIDE CRADLES NOT INCLUDED IN OG MASK MASK CLARIFICATION NEEDED: N DOES PATIENT WEAR A ANIME ARTIST THAT WILL BE AFFECTED BY THE RESPIRONICS OR RESMED MAGNETIC MASKCONTRAINDICATION (IF YES, SELECT A MASK THAT DOES NOT HAVE MAGNETS)? N/A documented in this encounter Plan of Treatment Upcoming Encounters Date Type Department Care Team (Latest Contact Info) Description 10/29/2024 11:00 AM CDT Virtual Visit [facility] [address] [place] [phone] 11/23/2024 1:30 PM CDT Office Visit [facility] Mental Health & Addiction [address] F[address] [phone] Melanie Boykin MD 2450 [place], [place] 890[address] Gloria Elizalde MD 420 [place], [place] 271755 12/03/2024 3:00 PM CDT Office Visit [facility] 5775 [facility] [address] [place] [phone] Jesse Arvizu MD [address] [place] [address] 071366 12/15/2024 11:40 AM CDT Ancillary Procedure [facility] Imaging Center CT Clinic [address] 1st [place] [phone] Yudy Pompa MD [address] [place] [address] 415495 12/22/2024 11:40 AM CDT Oncology Visit [facility] [address] [place] [phone] Yudy Pompa MD [address] [place] [place] [address] 944155 02/22/2025 12:30 PM CDT Office Visit [facility] Plastic and Reconstructive Surgery Clinic [address] [phone] Kenya Jennings MD [address] [place] [address] 03/12/2025 1:00 PM DIGITAL X RAY SERVICE ENGINEER Office Visit [facility] Internal Medicine [address] [phone] Mamadou Bowie MD [address] [place] [address] 03/23/2025 8:00 AM DIGITAL X RAY SERVICE ENGINEER Hospital Encounter [facility] PeriOp Services [address] [place] [address] [phone] Kenya Jennings MD [address] [place] [address] 03/23/2025 8:00 AM DIGITAL X RAY SERVICE ENGINEER - 03/23/2025 12:05 PM DIGITAL X RAY SERVICE ENGINEER Surgery [facility] PeriOp Services [address] [place] [address] [phone] Kenya Jennings MD [address] [place] [address] MASTECTOMY, BILATERAL, SIMPLE, NO nipple grafts. OnQ 03/30/2025 10:00 AM DIGITAL X RAY SERVICE ENGINEER Office Visit [facility] Plastic and Reconstructive Surgery Clinic [address] [phone] Lynn Parks APRN [address] [address] 04/16/2025 1:00 PM DIGITAL X RAY SERVICE ENGINEER Office Visit [facility] Internal Medicine [address] [phone] Mamadou Bowie MD [address] [place] [address] 05/03/2025 4:00 PM DIGITAL X RAY SERVICE ENGINEER Office Visit [facility] Plastic and Reconstructive Surgery Clinic [address] 4th [place] [phone] Kenya Jennings MD 420 [facility] 195 [place], [place] 1779[address] 08/17/2025 12:15 PM CDT Office Visit [facility] Dermatology Clinic [address] 3rd [place] [address] Herber Lopez MD 420 [facility] 98 [place], [place] 9[address]25 Scheduled Procedures Name Priority Associated Diagnoses Date/Ti me MASTECTOMY, BILATERAL, FOR GENDER AFFIRMATION Gender dysphoria in adult 03/23/2025 8:00 AM DIGITAL X RAY SERVICE ENGINEER documented as of this encounter Goals [...] documented as of this encounter Care Teams Manufacturing Inspector Relationship Specialty Start Date End Date Mamadou Bowie MD [address] [place] [address] PCP - General 03/18/23 Cindy Ruiz [facility] [address] [place] [address] Resident Internal Medicine 12/07/14 Trevor Espino MD 909 [place] [address] Urology 05/16/16 Jaci Whitlock APRN CNP 420 [facility] 395 [place] [address] Nurse Practitioner - Women's Health 12/14/16 Doris Ricci MD [facility] [address] [place] [address] Physician Internal Medicine 07/11/20 Yudy Pompa MD [address] [place] [address] 057325 Assigned Cancer Care Provider 08/21/20 Mary Carmen Rodriguez MD 420 [facility] 98 [place], [place] 758985 Dermatology 11/09/20 Herber Lopez MD 420 [facility] 98 [place], [place] 704425 Dermapathology 11/09/20 Gloria Elizalde MD 420 [place] [address] Resident 12/24/22 Mamadou Bowie MD [address] [place] [address] 6[address] Assigned PCP 03/23/23 Makenzie Romano MD [address] [place] [address] [phone] newspaper editor & Neurology - Child & Adolescent Psychiatry 11/08/23 Shani Stephenson MD 420 [place], [place] 838805 Resident Psychiatry 11/08/23 Ita Newton Specialty Literary Agent 06/04/24 Kenya Jennings MD 420 [facility] 195 [place], [place] 936925 Plastic Surgery 06/04/24 Herber Lopez MD 420 [facility] 98 [place], [place] 933[address] Assigned Dermatology Provider 07/26/24 Сергей Dumont [facility] Automat Car Attendant 08/13/24 Kenya Jennings MD 420 [facility] 195 [place], [place] 857835 Assigned Surgical Provider 08/26/24 Carmen Cole PA-C [address] [facility] [place] [address] [place] [address] Assigned Sleep Provider 09/25/24 Racheal Ng MD [address] [place], [place] [address] Assigned Behavioral Health Provider 10/26/24 documented as of this encounter
--- OUTSIDE RECORDS SUMMARY | 2024-10-28 19:17 | XMS_ITS | Encounter Summary ---
Author Organization [place] Address [address] [place] [address] 9[address] Care Team Providers Care Compensation Consulting Manager Name Role Phone Cindy Ruiz Unavailable [phone] Trevor Espino MD Unavailable [phone] Jaci Whitlock APRN DOOR FURRING INSTALLER Unavailable + Doris Ricci MD Unavailable +[phone] Yudy Pompa MD Unavailable +[phone] Mary Carmen Rodriguez MD Unavailable + Herber Lopez MD Unavailable [phone] Gloria Elizalde MD Unavailable [phone] Mamadou Bowie MD Primary Care Provider +[phone] Mamadou Bowie MD Unavailable Makenzie Romano MD Unavailable +[phone] Shani Stephenson MD Unavailable [phone] Yomi Campos PhD Unavailable +[phone] Ita Newton Unavailable Unavailable Kenya Jennings MD Unavailable +[phone] Herber Lopez MD Unavailable +[phone] Сергей Dumont [facility] Unavailable Unavailable Kenya Jennings MD Unavailable +[phone] Jesse Arvizu MD Unavailable Luis Dudley MD Unavailable [phone] Carmen Cole PA-C Unavailable +[phone] Racheal Ng MD Unavailable +[phone] Encounter Details Date Type Department Care Team (Late st Contact Info) Description 08/06/2024 MyC Medical Advice [address] [address] Rhianna Suazo RN Social History Tobacco Use Types Packs/Day [...] relatives? Three times a week 04/02/2024 Attends Taoism Services Not on file 04/02 Active Member of Clubs or Organizations Not on f ile 04/02/2024 Attends Club or Organization Meetings Not on jd e 04/02/2024 Marital Status Not on file 04/02/2024 PHQ-2 Answer Date Recorded PHQ-2 Score 3 07/20/2024 [facility] [place] of Occupat ional Health - Occupational Stress [...] in an overnight fdc, or couch-surfing.) Yes 04/03/2024 Are you worried [...] PM CDT Legal Sex Female 3:58 AM AUTOMATED MANUFACTURING INSTRUCTOR Gender Identity other 11/14/2020 10:33 PM CDT Sexual Orientation Lesbian 06/22/2019 4: 20 AM AUTOMATED MANUFACTURING INSTRUCTOR documented as of this encounter Plan of Treatment Upcoming Encounters Date Type Department Care Team (Latest Contact Info) Description 10/29/2024 11:00 AM CDT [facility] [address] [place] [address] 11/23/2024 1:30 PM CDT Office Visit [facility] [address] F[address] [phone] Melanie Boykin MD 9221 [place], [place] 618034 Gloria Elizalde MD [address] [place] [address] 315635 12/03/2024 3:00 PM CDT [facility] [address] [facility] [address] [place] [phone] Jesse Arvizu MD 5775 [place] [address] 12/15/2024 11:40 AM CDT Ancillary Procedure [facility] Clinic [address] [phone] Yudy Pompa MD [address] [place] [address] 892775 12/22/2024 11:40 AM CDT Oncology Visit [facility] [address] [place] [phone] Yudy Pompa MD [address] [place] [address] 266085 02/22/2025 12:30 PM CDT Office Visit [facility] [address] [phone] Kenya Jennings MD [address] [place] [address] 162075 03/12/2025 1:00 PM AUTOMATED MANUFACTURING INSTRUCTOR Office Visit [facility] Internal Medicine [address] [phone] Mamadou Bowie MD [address] [place] [address] 173435 03/23/2025 8:00 AM AUTOMATED MANUFACTURING INSTRUCTOR Hospital Encounter [facility]Op [facility] [place] [phone] Kenya Jennings MD [address] [place] [address] 03/23/2025 8:00 AM AUTOMATED MANUFACTURING INSTRUCTOR - 03/23/2025 12:05 PM AUTOMATED MANUFACTURING INSTRUCTOR Surgery [facility] 24[address] [facility] [place] [phone] Kenya Jennings MD [address] [place] [address] 934845 MASTECTOMY, BILATERAL, SIMPLE, NO nipple grafts. OnQ 03/30/2025 10:00 AM AUTOMATED MANUFACTURING INSTRUCTOR Office Visit [facility] [address] [phone] Lynn Parks APRN [address] [address] 04/16/2025 1:00 PM AUTOMATED MANUFACTURING INSTRUCTOR Office Visit [facility] Internal Medicine [address] [phone] Mamadou Bowie MD [address] [place] [address] 8[address] 05/03/2025 4:00 PM AUTOMATED MANUFACTURING INSTRUCTOR Office Visit [facility] [address] [phone] Kenya Jennings MD [address] [place] [address] 08/17/2025 12:15 PM CDT Office Visit [facility] [address]rd [place] [phone] Herber Lopez MD 420 [facility] 98 [place], [place] 114505 Scheduled Procedures Name Priority Associated Diagnoses Date/Ti me MASTECTOMY, BILATERAL, FOR GENDER AFFIRMATION Gender dysphoria in adult 03/23/2025 8:00 AM AUTOMATED MANUFACTURING INSTRUCTOR documented as of this encounter Visit Diagnoses Not on filedocumented in this encounter Additional Health Concerns Assessment Noted Time PHQ-9 Depression Total Score: 9 07/20/19 25 10:37 PM CDT documented as of this encounter Care Teams Compensation Consulting Manager Relationship Specialty Start Date End Date Mamadou Bowie MD [address] [place] [address] 660455 PCP - General 03/18/23 Cindy Ruiz [facility] [place] [address] Resident Internal Medicine 12/07/14 Trevor Espino MD [address] [place] [address] 947175 Urology 05/16/16 Jaci Whitlock APRN DOOR FURRING INSTALLER [address] [place] [address] 395 [place] [address] Nurse Practitioner - Women's Health 12/14/16 Doris Ricci MD [facility] & [address] [address] Physician Internal Medicine 07/11/20 Yudy Pompa MD [address] [place] [address] 443655 Assigned Cancer Care Provider 08/21/20 Mary Carmen Rodriguez MD [address] [place] [address] 342405 Dermatology 11/09/20 Herber Lopez MD [address] [place] [address] 027045 Dermapathology 11/09/20 Gloria Elizalde MD [address] [place] [address] 278945 Resident 12/24/22 Mamadou Bowie MD [address] [place] [address] 290225 Assigned PCP 03/23/23 Makenzie Romano MD [address] [place] [address] [phone] slot shift supervisor & Neurology - Child & Adolescent Psychiatry 11/08/23 Shani Stephenson MD [address] [place] [address] [phone] Resident Psychiatry 11/08/23 Yomi Campos, PhD [address] [place] [address] 241634 Assigned Behavioral Health Provider 01/27/24 08/25/24 Ita Newton Specialty Operation Agent 06/04/24 Kenya Jennings MD [address] [place] [address] 846785 Plastic Surgery 06/04/24 Herber Lopez MD 420 [facility] 98 [place], [place] 927235 Assigned Dermatology Provider 07/26/24 Сергей Dumont [facility] Doctor Assistant 08/13/24 Kenya Jennings MD 420 [facility] 195 [place], [place] [phone] Assigned Surgical Provider 08/26/24 Jesse Arvizu MD [address] [place], [place] [phone] Assigned Behavioral Health Provider 08/26/24 09/24/24 Luis Dudley MD 240 [place] [address] Assigned Behavioral Health Provider 09/25/24 10/25/24 Carmen Cole PA-C 6363 [facility] [place] 103 [place], [place] 884165 Assigned Sleep Provider 09/25/24 Racheal Ng MD [address] [id number] [place] [address] Assigned Behavioral Health Provider 10/26/24 documented as of this encounter
--- OUTSIDE RECORDS SUMMARY | 2024-10-28 19:17 | XMS_ITS | Encounter Summary ---
Author Organization [place] Address [address] [place] [address] Care Team Providers Care Blade Worker Name Role Phone Cindy Ruiz Unavailable [phone] Trevor Espino MD Unavailable [phone] Jaci Whitlock APRN SALES PERFORMANCE MANAGER Unavailable + Doris Ricci MD Unavailable Yudy Pompa MD Unavailable [phone] Mary Carmen Rodriguez MD Unavailable + Herber Lopez MD Unavailable +[phone] Gloria Elizalde MD Unavailable [phone] Mamadou Bowie MD Primary Care Provider [phone] Mamadou Bowie MD Unavailable Herber Lopez MD Unavailable [phone] Makenzie Romano MD Unavailable [phone] Shani Stephenson MD Unavailable [phone] Yomi Campos PhD Unavailable +[phone] Ita Newton Unavailable Unavailable Kenya Jennings MD Unavailable +[phone] Herber Lopez MD Unavailable +[phone] Сергей Dumont [facility] Unavailable Unavailable Kenya Jennings MD Unavailable +[phone] Jesse Arvizu MD Unavailable Luis Dudley MD Unavailable +[phone] Carmen Cole PA-C Unavailable +[phone] Racheal Ng MD Unavailable [phone] Encounter Details Date Type Department Care Team (Late st Contact Info) Description 07/22/2024 [facility] [place] [phone] [phone] Yoselin Fowler Social History Tobacco Use Types [...] Answer Date Recorded PHQ-2 Score 3 07/20/2024 [facility] Health - Occupational Stress Questionnaire Answer Date [...] in an abandoned building, in an overnight fpc, or couch-surfing.) Yes 04/03/2024 Are you worried [...] PM CDT Legal Sex Female 3:58 AM ENVIRONMENTAL SERVICES COORDINATOR Gender Identity other 11/14/2020 10:33 PM CDT Sexual Orientation Lesbian 06/22/2019 4: 20 AM ENVIRONMENTAL SERVICES COORDINATOR documented as of this encounter Plan of Treatment Upcoming Encounters Date Type Department Care Team (Latest Contact Info) Description 10/29/2024 11:00 AM CDT [facility] [address] [place] [address] 11/23/2024 1:30 PM CDT Office Visit [facility] [place] [phone] [address] [place] [phone] Melanie Boykin MD [address] [facility] 877964 Gloria Elizalde MD [address] [place] [address] 431145 12/03/2024 3:00 PM CDT Office [facility] [address] [place] [phone] Jesse Arvizu MD 5775 [place], [place] [phone] 12/15/2024 11:40 AM CDT Ancillary Procedure [facility] CT Clinic [address] [place] [phone] Yudy Pompa MD [address] [place] [address] 753535 12/22/2024 11:40 AM CDT Oncology Visit [facility] [address] [place] [address] [phone] Yudy Pompa MD [address] [place] [address] 552935 02/22/2025 12:30 PM CDT Office Visit [facility] [address] [place] [phone] Kenya Jennings MD [address] [place] [address] 602705 03/12/2025 1:00 PM ENVIRONMENTAL SERVICES COORDINATOR Office Visit [facility] Internal Medicine [address] [place] [phone] Mamadou Bowie MD [address] [place] [address] 89[address] 03/23/2025 8:00 AM ENVIRONMENTAL SERVICES COORDINATOR Hospital Encounter [facility] PeriOp Services [address] [place] [address] [place] [phone] Kenya Jennings MD [address] [place] [address] [phone] 03/23/2025 8:00 AM ENVIRONMENTAL SERVICES COORDINATOR - 03/23/2025 12:05 PM ENVIRONMENTAL SERVICES COORDINATOR Surgery [facility]Op Services [address] [place], [place] [address] [place] [phone] Kenya Jennings MD [address] [place] [address] 350425 MASTECTOMY, BILATERAL, SIMPLE, NO nipple grafts. OnQ 03/30/2025 10:00 AM ENVIRONMENTAL SERVICES COORDINATOR Office Visit [facility] [address] [phone] Lynn Parks APRN [address] [address] 04/16/2025 1:00 PM ENVIRONMENTAL SERVICES COORDINATOR Office Visit [facility] Internal Medicine [address] [phone] Mamadou Bowie MD [address] [place] [address] 47[address] 05/03/2025 4:00 PM ENVIRONMENTAL SERVICES COORDINATOR Office Visit [facility] [address] [phone] Kenya Jennings MD [address] [place] [address] 938345 08/17/2025 12:15 PM CDT Office Visit [facility] [place] 9[address] [facility] 3rd [place] [phone] Herber Lopez MD 420 [facility] 98 [place] [address] Scheduled Procedures Name Priority Associated Diagnoses Date/Ti me MASTECTOMY, BILATERAL, FOR GENDER AFFIRMATION Gender dysphoria in adult 03/23/2025 8:00 AM ENVIRONMENTAL SERVICES COORDINATOR documented as of this encounter Visit Diagnoses Not on filedocumented in this encounter Additional Health Concerns Assessment Noted Time PHQ-9 Depression Total Score: 9 07/20/19 25 10:37 PM CDT documented as of this encounter Care Teams Blade Worker Relationship Specialty Start Date End Date Mamadou Bowie MD [address] [place] [address]88[address] PCP - General 03/18/23 Cindy Ruiz [facility] [address] [place] [address] Resident Internal Medicine 12/07/14 Trevor Espino MD [address] [place] [address] 16416 Urology 05/16/16 Jaci Whitlock APRN SALES PERFORMANCE MANAGER [address] [place] [address] 395 [place] [address] Nurse Practitioner - Women's Health 12/14/16 Doris Ricci MD [facility] & [address] [address] Physician Internal Medicine 07/11/20 Yudy Pompa MD [address] [place] [address] 26926 Assigned Cancer Care Provider 08/21/20 Mary Carmen Rodriguez MD [address] [place] [address] Dermatology 11/09/20 Herber Lopez MD [address] [place] [address] Dermapathology 11/09/20 Gloria Elizalde MD [address] [place] [address] 666525 Resident 12/24/22 Mamadou Bowie MD [address] [place] [address] Assigned PCP 03/23/23 Herber Lopez MD [address] [place] [address] 91070 Assigned Surgical Provider 05/18/23 07/25/24 Makenzie Romano MD [address] [place] [address] 580394 shopper insights manager & Neurology - Child & Adolescent Psychiatry 11/08/23 Shani Stephenson MD [address] [place] [address] 425955 Resident Psychiatry 11/08/23 Yomi Campos, PhD [address] [place] [address] 208654 Assigned Behavioral Health Provider 01/27/24 08/25/24 Ita Newton Specialty Sand Shoveler 06/04/24 Kenya Jennings MD 420 [facility] 195 [place] [address] Plastic Surgery 06/04/24 Herber Lopez MD 420 [facility] 98 [place] [address] Assigned Dermatology Provider 07/26/24 Сергей Dumont [facility] Boot Liner Maker 08/13/24 Kenya Jennings MD 420 [facility] 195 [place] [address] Assigned Surgical Provider 08/26/24 Jesse Arvizu MD 5775 [place] [address] Assigned Behavioral Health Provider 08/26/24 09/24/24 Luis Dudley MD 240 [place], [place] 645684 Assigned Behavioral Health Provider 09/25/24 10/25/24 Carmen Cole PA-C 6363 [facility] 103 [place], [place] 589245 Assigned Sleep Provider 09/25/24 Racheal Ng MD 2450 [facility] F282 [place], [place] 628294 Assigned Behavioral Health Provider 10/26/24 documented as of this encounter
--- OUTSIDE RECORDS SUMMARY | 2024-10-28 19:17 | XMS_ITS | Encounter Summary ---
Author Organization [place] Address [address] [place] [address] Care Team Providers Care Clinical Product Specialist Name Role Phone Cindy Ruiz Unavailable [phone] Trevor Espino MD Unavailable [phone] Jaci Whitlock APRN ASSISTANT PRINCIPAL Unavailable + Doris Ricci MD Unavailable Yudy Pompa MD Unavailable [phone] Mary Carmen Rodriguez MD Unavailable + Herber Lopez MD Unavailable +[phone] Gloria Elizalde MD Unavailable [phone] Mamadou Bowie MD Primary Care Provider [phone] Mamadou Bowie MD Unavailable Makenzie Romano MD Unavailable [phone] Shani Stephenson MD Unavailable [phone] Ita Newton Unavailable Unavailable Kenya Jennings MD Unavailable +[phone] Herber Lopez MD Unavailable +[phone] Сергей Dumont [facility] Unavailable Unavailable Kenya Jennings MD Unavailable [phone] Carmen Cole PA-C Unavailable +[phone] Racheal Ng MD Unavailable [phone] Encounter Details Date Type Department Care Team (Late st Contact Info) Description 10/27/2024 MyC Medical Advice [facility] [address] [place] [address] Racheal Ng MD 7416 [facility] F236 [place] [address] Social History Tobacco Use Types [...] relatives? Three times a week 04/02/2024 Attends [employer] Services Not on file 04/02 Active Member of Clubs or Organizations Not on f ile 04/02/2024 Attends Club or Organization Meetings Not on jd e 04/02/2024 Marital Status Not on file 04/02/2024 PHQ-2 Answer Date Recorded PHQ-2 Score 2 10/26/2024 [facility] [place] of Occupat ional Health - Occupational Stress [...] building, in an overnight detention, or couch-surfing.) No 10/26/2024 Are you worried [...] PM CDT Legal Sex Female 3:58 AM LACE PAPER MACHINE OPERATOR Gender Identity other 11/14/2020 10:33 PM CDT Sexual Orientation Lesbian 06/22/2019 4: 20 AM LACE PAPER MACHINE OPERATOR documented as of this encounter Plan of Treatment Upcoming Encounters Date Type Department Care Team (Latest Contact Info) Description 10/29/2024 11:00 AM CDT [facility] [address] [place] [address] 11/23/2024 1:30 PM CDT Office Visit [facility] [address] F275 [address] [phone] Melanie Boykin MD 7969 [place] [address] Gloria Elizalde MD [address] [place] [address] 087315 12/03/2024 3:00 PM CDT [facility] 5775 [facility] [address] [place] [phone] Jesse Arvizu MD 5775 [place] [address] 12/15/2024 11:40 AM CDT Ancillary Procedure [facility] CT Clinic [address] [address] Yudy Pompa MD [address] [place] [address] 065465 12/22/2024 11:40 AM CDT Oncology Visit [facility] [address] [place] [address] [phone] Yudy Pompa MD [address] [place] [address] [phone] 02/22/2025 12:30 PM CDT Office Visit [facility] [address] [address] Kenya Jennings MD [address] [place] [address] 321685 03/12/2025 1:00 PM LACE PAPER MACHINE OPERATOR Office Visit [facility] Internal Medicine [address]th [place] [address] Mamadou Bowie MD [address] [place] [address] 674925 03/23/2025 8:00 AM LACE PAPER MACHINE OPERATOR Hospital Encounter [facility] PeriOp Services [facility] [place] [phone] Kenya Jennings MD [address] [place] [address] 03/23/2025 8:00 AM LACE PAPER MACHINE OPERATOR - 03/23/2025 12:05 PM LACE PAPER MACHINE OPERATOR Surgery [facility]Op Services [facility]0 [place] [phone] Kenya Jennings MD [address] [place] [address] 685365 MASTECTOMY, BILATERAL, SIMPLE, NO nipple grafts. OnQ 03/30/2025 10:00 AM LACE PAPER MACHINE OPERATOR Office Visit [facility] [address] [phone] Lynn Parks APRN [address] [address] 04/16/2025 1:00 PM LACE PAPER MACHINE OPERATOR Office Visit [facility] Internal Medicine [address] [phone] Mamadou Bowie MD [address] [place] [address] 05/03/2025 4:00 PM LACE PAPER MACHINE OPERATOR Office Visit [facility] [address] [phone] Kenya Jennings MD [address] [place] [address] 07[address] 08/17/2025 12:15 PM CDT Office Visit [facility] Dermatology Clinic [address] [place] [phone] Herber Lopez MD 420 [facility] 98 [place], [place] 083565 Scheduled Procedures Name Priority Associated Diagnoses Date/Ti me MASTECTOMY, BILATERAL, FOR GENDER AFFIRMATION Gender dysphoria in adult 03/23/2025 8:00 AM LACE PAPER MACHINE OPERATOR documented as of this encounter [...] documented as of this encounter Care Teams Clinical Product Specialist Relationship Specialty Start Date End Date Mamadou Bowie MD 909 [place], [place] 196385 PCP - General 03/18/23 Cindy Ruiz [facility] [address] [place] [address] Resident Internal Medicine 12/07/14 Trevor Espino MD 909 [place], [place] 793245 Urology 05/16/16 Jaci Whitlock APRN ASSISTANT PRINCIPAL 420 [facility] 395 [place], [place] 038545 Nurse Practitioner - Women's Health 12/14/16 Doris Ricci MD [facility] & [address] [address] Physician Internal Medicine 07/11/20 Yudy Pompa MD [address]09 [place], [place] 213405 Assigned Cancer Care Provider 08/21/20 Mary Carmen Rodriguez MD [address] [place] [address] 98 [place], [place] 035985 Dermatology 11/09/20 Herber Lopez MD [address] [place] [address] [phone] Dermapathology 11/09/20 Gloria Elizalde MD [address] [place] [address] 182645 Resident 12/24/22 Mamadou Bowie MD [address] [place] [address] 424205 Assigned PCP 03/23/23 Makenzie Romano MD [address] [place] [address] [phone] plaster machine operator & Neurology - Child & Adolescent Psychiatry 11/08/23 Shani Stephenson MD [address] [place] [address] 935775 Resident Psychiatry 11/08/23 Ita Newton Specialty Hostess Party Sales Representative 06/04/24 Kenya Jennings MD [address] [place] [address] 346305 Plastic Surgery 06/04/24 Herber Lopez MD 420 [facility] 98 [place] [address] Assigned Dermatology Provider 07/26/24 Сергей Dumont, [facility] Production Control Planner 08/13/24 Kenya Jennings MD 420 [facility] 195 [place], [place] 235895 Assigned Surgical Provider 08/26/24 Carmen Cole PA-C [address] [place], [place] 214315 Assigned Sleep Provider 09/25/24 Racheal Ng MD [address] [place], [place] [phone] Assigned Behavioral Health Provider 10/26/24 documented as of this encounter
--- OUTSIDE RECORDS SUMMARY | 2024-10-28 19:17 | XMS_ITS | Encounter Summary ---
Author Organization [facility] Address [address] [place] [address]10 Care Team Providers Care Steam Locomotive Firer/Fireman Name Role Phone Cindy Ruiz Unavailable [phone] Trevor Espino MD Unavailable +[phone] Jaci Whitlock APRN GREIGE MENDER Unavailable + Doris Ricci MD Unavailable Yudy Pompa MD Unavailable [phone] Mary Carmen Rodriguez MD Unavailable + Herber Lopez MD Unavailable +[phone] Gloria Elizalde MD Unavailable [phone] Mamadou Bowie MD Primary Care Provider [phone] Mamadou Bowie MD Unavailable Makenzie Romano MD Unavailable [phone] Shani Stephenson MD Unavailable [phone] Yomi Campos PhD Unavailable +[phone] Ita Newton Unavailable Unavailable Kenya Jennings MD Unavailable +[phone] Herber Lopez MD Unavailable +[phone] Сергей Dumont [facility] Unavailable Unavailable Kenya Jennings MD Unavailable [phone] Jesse Arvizu MD Unavailable Luis Dudley MD Unavailable +[phone] Carmen Cole PA-C Unavailable + [phone] Racheal Ng MD Unavailable [phone] Encounter Details Date Type Department Care Team (Late st Contact Info) Description 07/28/2024 MyC Medical Advice [facility] Plastic and Reconstructive Surgery Clinic [address] 4th [place] [address] Ita Newton Social History Tobacco Use Types Packs/Day Years [...] relatives? Three times a week 04/02/2024 Attends Hoahaoism Services Not on file 04/02 Active Member of Clubs or Organizations Not on f ile 04/02/2024 Attends Club or Organization Meetings Not on jd e 04/02/2024 Marital Status Not on file 04/02/2024 PHQ-2 Answer Date Recorded PHQ-2 Score 3 07/20/2024 [facility] of Occupat ional Health - [...] PM CDT Legal Sex Female 3:58 AM CONSULTANT RN Gender Identity other 11/14/2020 10:33 PM CDT Sexual Orientation Lesbian 06/22/2019 4: 20 AM CONSULTANT RN documented as of this encounter Functional Status * Did you feel that you didn't have enough to eat, had to wear dirty clothes, or had no one to protect or take care of you? Answer Date of Assessment Author 0 07/30/2024 9:02 PM CDT Yoselin Fowler * Did you live with anyone who was depressed, mentally ill, or attempted suicide? Answer Date of Assessment Author 1 07/30/2024 9:02 PM CDT Yoselin Fowler * Did you live with anyone who had a problem with drinking or using drugs, including prescription drugs? Answer Date of Assessment Author 0 07/30/2024 9:02 PM CDT Yoselin Fowler * Did your parents or adults in your home ever hit, punch, beat, or threaten to harm each other? Answer Date of Assessment Author 0 07/30/2024 9:02 PM CDT Yoselin Fowler * Did you live with anyone who went to fci or nursing home? Answer Date of Assessment Author 0 07/30/2024 9:02 PM CDT Yoselin Fowler * Did a parent or adult in your home ever swear at you, insult you, or put you down? Answer Date of Assessment Author 1 07/30/2024 9:02 PM CDT Yoselin Fowler * Did a parent or adult in your home ever hit, beat, kick, or physically hurt you in any way? Answer Date of Assessment Author 0 07/30/2024 9:02 PM CDT Yoselin Fowler * Did you feel that no one in your family loved you or thought you were special? Answer Date of Assessment Author 0 07/30/2024 9:02 PM CDT Yoselin Fowler * Did you experience unwanted sexual contact (such as fondling or oral/anal/vaginal intercourse/penetration)? Answer Date of Assessment Author 1 07/30/2024 9:02 PM JENT Yoselin Fowler documented as of this encounter Plan of Treatment Upcoming Encounters Date Type Department Care Team (Latest Contact Info) Description 10/29/2024 11:00 AM CDT [facility] [address] [facility] 255 [place] [address] 11/23/2024 1:30 PM CDT Office Visit [facility] Mental Health & Addiction [address] F[address] [phone] Melanie Boykin MD [address] [place] [address] 139154 Gloria Elizalde MD 420 [place], [place] 010205 12/03/2024 3:00 PM CDT Office Visit [facility] [address] [place] [phone] Jesse Arvizu MD 5775 [place] [address] 12/15/2024 11:40 AM CDT Ancillary Procedure [facility] Imaging Center CT Clinic [address]st [place] [phone] Yudy Pompa MD [address] [place] [address] 338265 12/22/2024 11:40 AM CDT Oncology Visit [facility] [address] [place] [phone] Yudy Pompa MD [address] [place] [address] 416975 02/22/2025 12:30 PM CDT Office Visit [facility] Re[facility] Clinic [address] [phone] Kenya Jennings MD [address] [place] [address] 916275 03/12/2025 1:00 PM CONSULTANT RN Office Visit [facility] Internal Medicine [address]th [place] [phone] Mamadou Bowie MD [address] [place] [address] 937565 03/23/2025 8:00 AM CONSULTANT RN Hospital Encounter [facility] PeriOp Services [address] [place] [address] [phone] Kenya Jennings MD [address] [place] [address] 054555 03/23/2025 8:00 AM CONSULTANT RN - 03/23/2025 12:05 PM CONSULTANT RN Surgery [facility] PeriOp Services [address] [place] [phone] Kenya Jennings MD [address] [place] [address] 889705 MASTECTOMY, BILATERAL, SIMPLE, NO nipple grafts. OnQ 03/30/2025 10:00 AM CONSULTANT RN Office Visit [facility] [address] [phone] Lynn Parks APRN [address] 285195 04/16/2025 1:00 PM CONSULTANT RN Office Visit [facility] Internal Medicine [address] [phone] Mamadou Bowie MD [address] [place] [address] 832115 05/03/2025 4:00 PM CONSULTANT RN Office Visit [facility]astic [facility] Clinic [address] [phone] Kenya Jennings MD [address] [place] [address] 08/17/2025 12:15 PM CDT Office Visit [facility] Dermatology Clinic [address] [phone] Herber Lopez MD [address] [place] [address]275 Scheduled Procedures Name Priority Associated Diagnoses Date/Ti me MASTECTOMY, BILATERAL, FOR GENDER AFFIRMATION Gender dysphoria in adult 03/23/2025 8:00 AM CONSULTANT RN documented as of this encounter Visit Diagnoses Not on filedocumented in this encounter Additional Health Concerns Assessment Noted Time PHQ-9 Depression Total Score: 9 07/20/19 25 10:37 PM CDT documented as of this encounter Care Teams Steam Locomotive Firer/Fireman Relationship Specialty Start Date End Date Mamadou Bowie MD [address] [place] [address] 518155 PCP - General 03/18/23 Cindy Ruiz [address] [place], [place] 422920 Resident Internal Medicine 12/07/14 Trevor Espino MD [address] [place] [address] [phone] Urology 05/16/16 Jaci Whitlock APRN GREIGE MENDER [address] [place] [address] 395 [place], [place] [phone] Nurse Practitioner - Women's Health 12/14/16 Doris Ricci MD [facility] 1999 [place] [address] Physician Internal Medicine 07/11/20 Yudy Pompa MD [address] [place] [address] 594435 Assigned Cancer Care Provider 08/21/20 Mary Carmen Rodriguez MD [address] [place] [address] 98 [place], [place] 433315 Dermatology 11/09/20 Herber Lopez MD 420 [facility] 98 [place], [place] 182915 Dermapathology 11/09/20 Gloria Elizalde MD 420 [place], [place] 950235 Resident 12/24/22 Mamadou Bowie MD 909 [place], [place] 336565 Assigned PCP 03/23/23 [place] [address] [place] [address] [phone] senior analyst & Neurology - Child & Adolescent Psychiatry 11/08/23 Shani Stephenson MD 420 [place] [address] Resident Psychiatry 11/08/23 Yomi Campos, PhD [address] [phone] Assigned Behavioral Health Provider 01/27/24 08/25/24 Ita Newton Specialty Laborer Brush Clearing 06/04/24 Kenya Jennings MD 420 [facility] 195 [place], [place] 762005 Plastic Surgery 06/04/24 Herber Lopez MD 420 [facility] 98 [place] [address] Assigned Dermatology Provider 07/26/24 Сергей Dumont, [facility] Registration Officer 08/13/24 Kenya Jennings MD 420 [facility] 195 [place], [place] 968075 Assigned Surgical Provider 08/26/24 Jesse Arvizu MD 5775 [place], [place] 483546 Assigned Behavioral Health Provider 08/26/24 09/24/24 Luis Dudley MD 240 [place], [place] 235934 Assigned Behavioral Health Provider 09/25/24 10/25/24 Carmen Cole PA-C 6363 [facility] 103 [place], [place] 132445 Assigned Sleep Provider 09/25/24 Racheal Ng MD 2450 [facility] F[address] [place] [address] Assigned Behavioral Health Provider 10/26/24 documented as of this encounter
--- OUTSIDE RECORDS SUMMARY | 2024-10-28 19:17 | XMS_ITS | Encounter Summary ---
Author Organization [facility] Address [address] [place] [address]48 Care Team Providers Care Refrigerator Crater Name Role Phone Cindy Ruiz Unavailable [phone] Trevor Espino MD Unavailable [phone] Jaci Whitlock APRN GELATIN PLANT SUPERVISOR Unavailable + Doris Ricci MD Unavailable [phone] Yudy Pompa MD Unavailable [phone] Mary Carmen Rodriguez MD Unavailable + Herber Lopez MD Unavailable +[phone] Gloria Elizalde MD Unavailable [phone] Mamadou Bowie MD Primary Care Provider [phone] Mamadou Bowie MD Unavailable Makenzie Romano MD Unavailable [phone] Shani Stephenson MD Unavailable [phone] Ita Newton Unavailable Unavailable Kenya Jennings MD Unavailable [phone] Herber Lopez MD Unavailable +[phone] Сергей Dumont [facility] Unavailable Unavailable Kenya Jennings MD Unavailable +[phone] Luis Dudley MD Unavailable [phone] Carmen Cole PA-C Unavailable +[phone] Racheal Ng MD Unavailable [phone] Encounter Details Date Type Department Care Team (Late st Contact Info) Description 10/20/2024 MyC Medical Advice [facility] Internal Medicine [address] 4th [place] [phone] Toshia Korin Social History Tobacco Use Types Packs/Day Years [...] relatives? Three times a week 04/02/2024 Attends Latter-Day Services Not on file 04/02 Active Member of Clubs or Organizations Not on f ile 04/02/2024 Attends Club or Organization Meetings Not on jd e 04/02/2024 Marital Status Not on file 04/02/2024 PHQ-2 Answer Date Recorded PHQ-2 Score 2 10/22/2024 [facility] [place] of Occupat ional Health - Occupational Stress [...] PM CDT Legal Sex Female 3:58 AM NURSE BEHAVIORAL HEALTH CARE Gender Identity other 11/14/2020 10:33 PM CDT Sexual Orientation Lesbian 06/22/2019 4: 20 AM NURSE BEHAVIORAL HEALTH CARE documented as of this encounter Plan of Treatment Upcoming Encounters Date Type Department Care Team (Latest Contact Info) Description 10/29/2024 11:00 AM CDT [facility] [address] [facility] [address] [place] [phone] 11/23/2024 1:30 PM CDT Office Visit [facility] Mental Health & Addiction [address] F[address] [phone] [place] [address] [place] [address] Gloria Elizalde MD 420 [place] [address] 12/03/2024 3:00 PM CDT Office Visit [facility] [address] [facility] [address] [place] [phone] Jesse Arvizu MD 5775 [place] [address] 12/15/2024 11:40 AM CDT Ancillary Procedure [facility] Imaging Center CT Clinic [address]st [place] [phone] Yudy Pompa MD [address] [place] [address] 318425 12/22/2024 11:40 AM CDT Oncology Visit [facility] [address] [place] [address] [phone] Yudy Pompa MD [address] [place] [address] 290635 02/22/2025 12:30 PM CDT Office Visit [facility] Plastic and Reconstructive Surgery Clinic [address]th [place] [phone] Kenya Jennings MD [address] [place] [address] 195 [place], [place] 834435 03/12/2025 1:00 PM NURSE BEHAVIORAL HEALTH CARE Office Visit [facility] Internal Medicine [address]th [place] [phone] Mamadou Bowie MD [address] [place] [address]18 03/23/2025 8:00 AM NURSE BEHAVIORAL HEALTH CARE Hospital Encounter [facility] PeriOp Services [address] [place] [address] [place] [phone] Kenya Jennings MD [address] [place] [address] 062455 03/23/2025 8:00 AM NURSE BEHAVIORAL HEALTH C[facility] - 03/23/2025 12:05 PM N[facility]SE BEHAVIORAL [facility] C[facility] Surgery [facility] PeriOp Services 2450 [facility] [place] [phone] Kenya Jennings MD [address] [place] [address] 98774 MASTECTOMY, BILATERAL, SIMPLE, NO nipple grafts. OnQ 03/30/2025 10:00 AM NURSE BEHAVIORAL HEALTH CARE Office Visit [facility] Plastic and Reconstructive Surgery Clinic [address] [phone] Lynn Parks APRN [address] [address] 04/16/2025 1:00 PM NURSE BEHAVIORAL HEALTH CARE Office Visit [facility] Internal Medicine [address] [phone] Mamadou Bowie MD [address] [place] [address] 33776 05/03/2025 4:00 PM NURSE BEHAVIORAL HEALTH CARE Office Visit [facility] Plastic and Reconstructive Surgery Clinic [address] [phone] Kenya Jennings MD [address] [place] [address] 729155 08/17/2025 12:15 PM CDT Office Visit [facility] Dermatology Clinic [address] [place] [phone] Herber Lopez MD [address] [place] [address] Scheduled Procedures Name Priority Associated Diagnoses Date/Ti me MASTECTOMY, BILATERAL, FOR GENDER AFFIRMATION Gender dysphoria in adult 03/23/2025 8:00 AM NURSE BEHAVIORAL HEALTH CARE documented as of this encounter Goals Goal [...] documented as of this encounter Care Teams Refrigerator Crater Relationship Specialty Start Date End Date Mamadou Bowie MD [address] [place] [address] 29430 PCP - General 03/18/23 Cindy Ruiz HUNTER PHILIP [address] [place] [address] Resident Internal Medicine 12/07/14 Trevor Espino MD [address] [place] [address] Urology 05/16/16 Jaci Whitlock APRN GELATIN PLANT SUPERVISOR [address] [place] [address] 395 [place] [address] Nurse Practitioner - Women's Health 12/14/16 Doris Ricci MD [facility] 1999 [place] [address] Physician Internal Medicine 07/11/20 Yudy Pompa MD [address] [place] [address] 75501 Assigned Cancer Care Provider 08/21/20 Mary Carmen Rodriguez MD [address] [place] [address] 91662 MD Dermatology 11/09/20 Herber Lopez MD [address] [place] [address] 34740 Dermapathology 11/09/20 Gloria Elizalde MD [address] [place] [address] 146185 Resident 12/24/22 Mamadou Bowie MD [address] [place] [address] 63509 Assigned PCP 03/23/23 Makenzie Romano MD [address] [place] [address] 721074 insulation worker apprentice & Neurology - Child & Adolescent Psychiatry 11/08/23 Shani Stephenson MD [address] [place] [address] 493845 Resident Psychiatry 11/08/23 Ita Newton Specialty Manufacturing Maintenance Technician 06/04/24 Kenya Jennings MD [address] [place] [address] 728525 Plastic Surgery 06/04/24 Herber Lopez MD [address] [place] [address] 516545 Assigned Dermatology Provider 07/26/24 Сергей Dumont, [facility] Die Tripper 08/13/24 Kenya Jennings MD 420 [facility] 195 [place], [place] 445415 Assigned Surgical Provider 08/26/24 Luis Dudley MD 240 [place], [place] 982694 Assigned Behavioral Health Provider 09/25/24 10/25/24 Carmen Cole PA-C 6363 [facility] 103 [place], [place] 802525 Assigned Sleep Provider 09/25/24 Racheal Ng MD [address] [place] [phone] [place] [address] Assigned Behavioral Health Provider 10/26/24 documented as of this encounter
--- OUTSIDE RECORDS SUMMARY | 2024-10-28 19:18 | XMS_ITS | Encounter Summary ---
Author Organization [facility] Address [address] [place] [address] 43034 Care Team Providers Care Twitchell Operator Name Role Phone Cindy Ruiz Unavailable [phone] Trevor Espino MD Unavailable [phone] Jaci Whitlock APRN SOLAR DESIGNER Unavailable + Doris Ricci MD Unavailable Yudy Pompa MD Unavailable [phone] Mary Carmen Rodriguez MD Unavailable + Herber Lopez MD Unavailable +[phone] Gloria Elizalde MD Unavailable [phone] Mamadou Bowie MD Primary Care Provider [phone] Mamadou Bowie MD Unavailable Makenzie Romano MD Unavailable [phone] Shani Stephenson MD Unavailable [phone] Ita Newton Unavailable Unavailable Kenya Jennings MD Unavailable [phone] Herber Lopez MD Unavailable +[phone] Сергей Dumont [facility] Unavailable Unavailable Kenya Jennings MD Unavailable [phone] Luis Dudley MD Unavailable [phone] Carmen Cole PA-C Unavailable +[phone] Encounter Details Date Type Department Care Team (Latest Contact Info) Description 10/07/2024 Travel Social History Tobacco Use Types Packs/Day [...] relatives? Three times a week 04/02/2024 Attends Rastafarian Services Not on file 04/02 Active Member of Clubs or Organizations Not on f ile 04/02/2024 Attends Club or Organization Meetings Not on jd e 04/02/2024 Marital Status Not on file 04/02/2024 PHQ-2 Answer Date Recorded PHQ-2 Score 3 10/08/2024 [facility] of Occupat ional Health - Occupational [...] PM CDT Legal Sex Female 3:58 AM AIRPORT MAINTENANCE LABORER Gender Identity other 11/14/2020 10:33 PM CDT Sexual Orientation Lesbian 06/22/2019 4: 20 AM AIRPORT MAINTENANCE LABORER documented as of this encounter Plan of Treatment Upcoming Encounters Date Type Department Care Team (Latest Contact Info) Description 10/29/2024 11:00 AM CDT Virtual Visit [facility] [address] [phone] 11/23/2024 1:30 PM CDT Office Visit [facility] Mental Health & Addiction [place] [phone] [address] [place] [address] [phone] Melanie Boykin MD [address] [place] [address] Gloria Elizalde MD 420 [place], [place] 815565 12/03/2024 3:00 PM CDT Office Visit [facility] Psychiatry [facility] [address] [place] [phone] Jesse Arvizu MD [address]75 [place] [address] 12/15/2024 11:40 AM CDT Ancillary Procedure [facility] Imaging Center CT Clinic [address]st [place] [phone] Yudy Pompa MD [address] [place] [address] 12/22/2024 11:40 AM CDT Oncology Visit [facility] [address] [place] [address] [phone] Yudy Pompa MD [address] [place] [address] 081875 02/22/2025 12:30 PM CDT Office Visit [facility] Plastic and Reconstructive Surgery Clinic [address] [phone] Kenya Jennings MD [address] [place] [address] 945[address] 03/12/2025 1:00 PM AIRPORT MAINTENANCE LABORER Office Visit [facility] Internal Medicine [address] [place] [phone] Mamadou Bowie MD [address] [place] [address] 80053 03/23/2025 8:00 AM AIRPORT MAINTENANCE LABORER Hospital Encounter [facility] PeriOp Services 2450 [place] [phone] Kenya Jennings MD [address] [place] [address] 03/23/2025 8:00 AM AIRPORT MAINTENANCE LABORER - 03/23/2025 12:05 PM AIRPORT MAINTENANCE LABORER Surgery [facility] PeriOp Services [address] [place] [phone] Kenya Jennings MD [address] [place] [address] 55765 MASTECTOMY, BILATERAL, SIMPLE, NO nipple grafts. OnQ 03/30/2025 10:00 AM AIRPORT MAINTENANCE LABORER Office Visit [facility] Clinic [address] [phone] Lynn Parks APRN [address] 356055 04/16/2025 1:00 PM AIRPORT MAINTENANCE LABORER Office Visit [facility] Internal Medicine [address] [phone] Mamadou Bowie MD [address] [place] [address] 385315 05/03/2025 4:00 PM AIRPORT MAINTENANCE LABORER Office Visit [facility] Reconstructive Surgery Clinic [address] [phone] Kenya Jennings MD [address] [place] [address] 957435 08/17/2025 12:15 PM CDT Office Visit [facility] Dermatology Clinic [address] [place] [phone] Herber Lopez MD [address] [place] [address] 691235 Scheduled Procedures Name Priority Associated Diagnoses Date/Ti me MASTECTOMY, BILATERAL, FOR GENDER AFFIRMATION Gender dysphoria in adult 03/23/2025 8:00 AM AIRPORT MAINTENANCE LABORER documented as of this encounter Goals Goal [...] documented as of this encounter Care Teams Twitchell Operator Relationship Specialty Start Date End Date Mamadou Bowie MD [address] [place] [address] 73454 PCP - General 03/18/23 Cindy Ruiz HUNTER PHILIP [address] [place] [address] Resident Internal Medicine 12/07/14 Trevor Espino MD [address] [place] [address] 67977 Urology 05/16/16 Jaci Whitlock APRN SOLAR DESIGNER [address] [place] [address] 18[address] Nurse Practitioner - Women's Health 12/14/16 Doris Ricci MD [facility] 1999 [place] [address] Physician Internal Medicine 07/11/20 Yudy Pompa MD [address] [place] [address] 69457 Assigned Cancer Care Provider 08/21/20 Mary Carmen Rodriguez MD [address] [address] Dermatology 11/09/20 Herber Lopez MD [address] [place] [address] 81924 Dermapathology 11/09/20 Gloria Elizalde MD [address] [place] [address] 46371 Resident 12/24/22 Mamadou Bowie MD [address] [place] [address] 30571 Assigned PCP 03/23/23 Makenzie Romano MD [address] [place] [address] 33226 supervisor long goods & Neurology - Child & Adolescent Psychiatry 11/08/23 Shani Stephenson MD [address] [place] [address] 17973 Resident Psychiatry 11/08/23 Ita Newton Specialty Steward/Stewardess Second Class 06/04/24 Kenya Jennings MD [address] [place] [address] 56558 Plastic Surgery 06/04/24 Herber Lopez MD [address] [place] [address] 02229 Assigned Dermatology Provider 07/26/24 Сергей Dumont [facility] Distribution Warehouse Manager 08/13/24 Kenya Jennings MD [address] [place] [address] 650245 Assigned Surgical Provider 08/26/24 Luis Dudley MD [address] [facility] [address] [place], [place] 753884 Assigned Behavioral Health Provider 09/25/24 10/25/24 Carmen Cole PA-C 6363 RUPERT Ruiz [facility] 103 [place], [place] 576155 Assigned Sleep Provider 09/25/24 documented as of this encounter
--- OUTSIDE RECORDS SUMMARY | 2024-10-28 19:18 | XMS_ITS | Encounter Summary ---
Author Organization [place] Address [address] [place] [address] 63645 Care Team Providers Care Concrete Crusher Loader Operator Name Role Phone Cindy Ruiz Unavailable [phone] Trevor Espino MD Unavailable [phone] Jaci Whitlock APRN STEEL POST INSTALLER Unavailable + Doris Ricci MD Unavailable Yudy Pompa MD Unavailable [phone] Mary Carmen Rodriguez MD Unavailable + Herber Lopez MD Unavailable +[phone] Gloria Elizalde MD Unavailable [phone] Mamadou Bowie MD Primary Care Provider [phone] Mamadou Bowie MD Unavailable Herber Lopez MD Unavailable +[phone] Makenzie Romano MD Unavailable Shani Stephenson MD Unavailable [phone] Yomi Campos PhD Unavailable [phone] Ita Newton Unavailable Unavailable Kenya Jennings MD Unavailable [phone] Herber Lopez MD Unavailable [phone] Сергей Dumont [facility] Unavailable Unavailable Kenya Jennings MD Unavailable +[phone] Jesse Arvizu MD Unavailable Luis Dudley MD Unavailable Carmen Cole PA-C Unavailable Rahceal Ng MD Unavailable +[phone] Encounter Details Date Type Department Care Team (Late st Contact Info) Description 06/22/2024 MyC Medical Advice [facility] Mental Health & Addiction [place] [id number] [address] Gloria Elizalde MD 420 [place] [address] PTSD (post-traumatic stress disorder); Moderate episode of recurrent major depressive disorder (H) Social History Tobacco Use Types Packs/Day [...] relatives? Three times a week 04/02/2024 Attends Hinduism Services Not on file 04/02 Active Member of Clubs or Organizations Not on f ile 04/02/2024 Attends Club or Organization Meetings Not on jd e 04/02/2024 Marital Status Not on file 04/02/2024 PHQ-2 Answer Date Recorded PHQ-2 Score 4 05/18/2024 [facility] [place] of Occupat ional Health - Occupational Stress [...] PM CDT Legal Sex Female 3:58 AM FIRE SAFETY MANAGER Gender Identity other 11/14/2020 10:33 PM CDT Sexual Orientation Lesbian 06/22/2019 4: 20 AM FIRE SAFETY MANAGER documented as of this encounter Plan of Treatment Upcoming Encounters Date Type Department Care Team (Latest Contact Info) Description 10/29/2024 11:00 AM CDT Virtual Visit [facility] Psychiatry [facility] [address] [facility] [address] [place] [address] 11/23/2024 1:30 PM CDT Office Visit [facility] Mental Health & Addiction [address] F[address] [phone] Melanie Boykin MD [address] [place] [address] Gloria Elizalde MD [address] [place] [address] 151385 12/03/2024 3:00 PM CDT [facility] [address] [facility] [address] [place] [phone] Jesse Arvizu MD 5775 [place] [address] 12/15/2024 11:40 AM CDT Ancillary Procedure [facility] Imaging Center CT Clinic [address] 1st [place] [phone] Yudy Pompa MD [address] [place] [address] 970925 12/22/2024 11:40 AM CDT Oncology Visit [facility] [address] [place] [phone] Yudy Pompa MD [address] [place] [address] 769435 02/22/2025 12:30 PM CDT Office Visit [facility] Plastic and Reconstructive Surgery Clinic [address] 4th [place] [phone] Kenya Jennings MD [address] [place] [address] 195 [place], [place] 181155 03/12/2025 1:00 PM FIRE SAFETY MANAGER Office Visit [facility] Internal Medicine [address] [phone] Mamadou Bowie MD [address] [place] [address] 03/23/2025 8:00 AM FIRE SAFETY MANAGER Hospital Encounter [facility] PeriOp Services [address] [place] [address] [place] [phone] Kenya Jennings MD [address] [place] [address] 402935 03/23/2025 8:00 AM FIRE SAFETY MANAGER - 03/23/2025 12:05 PM FIRE SAFETY MANAGER Surgery [facility] [address] [place] [address] [place] [phone] Kenya Jennings MD [address] [place] [address] [phone] MASTECTOMY, BILATERAL, SIMPLE, NO nipple grafts. OnQ 03/30/2025 10:00 AM FIRE SAFETY MANAGER Office Visit [facility] [address] [phone] Lynn Parks APRN [address] [address] 04/16/2025 1:00 PM FIRE SAFETY MANAGER Office Visit [facility] Internal Medicine [address] [phone] Mamadou Bowie MD [address] [place] [address] 05/03/2025 4:00 PM FIRE SAFETY MANAGER Office Visit [facility] [address] [address] Kenya Jennings MD 420 [facility] 195 [place], [place] 938935 08/17/2025 12:15 PM CDT Office Visit [facility] Dermatology Clinic Mcdaniel 909 [facility] 3rd [place] [address] Herber Lopez MD 420 [facility] 98 [place], [place] 928655 Scheduled Procedures Name Priority Associated Diagnoses Date/Ti me MASTECTOMY, BILATERAL, FOR GENDER AFFIRMATION Gender dysphoria in adult 03/23/2025 8:00 AM FIRE SAFETY MANAGER documented as of this encounter Visit Diagnoses Diagnosis PTSD (post-traumatic stress disorder) Posttraumatic stress disorder Moderate episode of recurrent major depressive disorder (H) Gender dysphoria in adult documented in this encounter Additional Health Concerns Assessment Noted Time PHQ-9 Depression Total Score: 10 025 6:56 PM FIRE SAFETY MANAGER documented as of this encounter Care Teams Concrete Crusher Loader Operator Relationship Specialty Start Date End Date Mamadou Bowie MD [address] [place] [address] 476645 PCP - General 03/18/23 Cindy Ru[place] [address] Resident Internal Medicine 12/07/14 Trevor Espino MD [address] [place] [address] 580015 Urology 05/16/16 Jaci Whitlock APRN STEEL POST INSTALLER [address] [place] [address] 395 [place], [place] 705615 Nurse Practitioner - Women's Health 12/14/16 Doris Ricci MD [facility] & [address] [address] Physician Internal Medicine 07/11/20 Yudy Pompa MD [address] [place] [address] 816695 Assigned Cancer Care Provider 08/21/20 Mary Carmen Rodriguez MD [address] [place] [address] 843665 Dermatology 11/09/20 Herber Lopez MD [address] [place] [address] 043805 Dermapathology 11/09/20 Gloria Elizalde MD [address] [place] [address] 558645 Resident 12/24/22 Mamadou Bowie MD [address] [place] [address] 596405 Assigned PCP 03/23/23 Herber Lopez MD [address] [place] [address] 15890 Assigned Surgical Provider 05/18/23 07/25/24 Makenzie Romano MD [address] [place] [address] 37593 terrazzo polisher & Neurology - Child & Adolescent Psychiatry 11/08/23 Shani Stephenson MD [address] [place] [address] Resident Psychiatry 11/08/23 Yomi Campos, PhD [address] [place], [place] 2296056 [place] [address] Assigned Behavioral Health Provider 01/27/24 08/25/24 Ita Newton Specialty Motor And Generator Assembler 06/04/24 Kenya Jennings MD 420 [facility] 195 [place], [place] 674135 Plastic Surgery 06/04/24 Herber Lopez MD 420 [facility] 98 [place] [address] Assigned Dermatology Provider 07/26/24 Сергей Dumont, [facility] Milled Rice Broker 08/13/24 Kenya Jennings MD 420 [facility] 195 [place], [place] 564615 Assigned Surgical Provider 08/26/24 Jesse Arvizu MD 5775 [place], [place] 598376 Assigned Behavioral Health Provider 08/26/24 09/24/24 Luis Dudley MD [address] [place] [address] 327974 Assigned Behavioral Health Provider 09/25/24 10/25/24 Carmen Cole PA-C [address] [address] Assigned Sleep Provider 09/25/24 Racheal Ng MD [address] [place] [phone] [place] [address] Assigned Behavioral Health Provider 10/26/24 documented as of this encounter
--- OUTSIDE RECORDS SUMMARY | 2024-10-28 19:18 | XMS_ITS | Encounter Summary ---
Author Organization [place] Address [address] [place] [address] 79139 Care Team Providers Care Metal Riveting Machine Operator Name Role Phone Cindy Ruiz Unavailable [phone] Trevor Espino MD Unavailable [phone] Jaci Whitlock APRN INPATIENT AUDITOR Unavailable + Doris Ricci MD Unavailable [phone] Yudy Pompa MD Unavailable [phone] Mary Carmen Rodriguez MD Unavailable + Herber Lopez MD Unavailable [phone] Gloria Elizalde MD Unavailable [phone] Mamadou Bowie MD Primary Care Provider [phone] Mamadou Bowie MD Unavailable Makenzie Romano MD Unavailable [phone] Shani Stephenson MD Unavailable [phone] Ita Newton Unavailable Unavailable Kenya Jennings MD Unavailable [phone] Herber Lopez MD Unavailable +[phone] Сергей Dumont [facility] Unavailable Unavailable Kenya Jennings MD Unavailable [phone] Luis Dudley MD Unavailable [phone] Carmen Cole PA-C Unavailable [phone] Encounter Details Date Type Department Care Team (Latest Contact Info) Description 10/16/2024 Travel Social History Tobacco Use Types Packs/Day [...] Answer Date Recorded PHQ-2 Score 2 10/16/2024 [facility] of Occupat ional [place] - Occupational Stress Questionnaire Answer Date Recorded [...] CDT Legal Sex Female 3:58 AM ENVIRONMENTAL SCIENCE INSTRUCTOR Gender Identity other 11/14/2020 10:33 PM CDT Sexual Orientation Lesbian 06/22/2019 4: 20 AM ENVIRONMENTAL SCIENCE INSTRUCTOR documented as of this encounter Plan of Treatment Upcoming Encounters Date Type Department Care Team (Latest Contact Info) Description 10/29/2024 11:00 AM CDT [facility] [address] [phone] 11/23/2024 1:30 PM CDT Office Visit [facility] Mental Health & Addiction [place] [phone] [address] [place] [address] [phone] Melanie Boykin MD [address] [place] [address] Gloria Elizalde MD 420 [place], [place] 242655 12/03/2024 3:00 PM CDT Office Visit [facility] Psychiatry [facility] [address] [place] [phone] Jesse Arvizu MD [address] [place] [address] 12/15/2024 11:40 AM CDT Ancillary Procedure [facility] Imaging Center CT Clinic [address] 1st [place] [phone] Yudy Pompa MD [address] [place] [address] 87[address] 12/22/2024 11:40 AM CDT Oncology Visit [facility] [address] [place] [address] [phone] Yudy Pompa MD [address] [place] [address] 738125 02/22/2025 12:30 PM CDT Office Visit [facility] Plastic and Reconstructive Surgery Clinic [address] [phone] Kenya Jennings MD [address] [place] [address] 03/12/2025 1:00 PM ENVIRONMENTAL SCIENCE INSTRUCTOR Office Visit [facility] Internal Medicine [address]th [place] [phone] Mamadou Bowie MD [address] [place] [address] 03/23/2025 8:00 AM ENVIRONMENTAL SCIENCE INSTRUCTOR Hospital Encounter [facility] PeriOp Services 2450 [place] [phone] Kenya Jennings MD [address] [place] [address] 03/23/2025 8:00 AM ENVIRONMENTAL SCIENCE INSTRUCTOR - 03/23/2025 12:05 PM ENVIRONMENTAL SCIENCE INSTRUCTOR Surgery [facility]Op Services [address] [place] [phone] Kenya Jennings MD [address] [place] [address] 52471 MASTECTOMY, BILATERAL, SIMPLE, NO nipple grafts. OnQ 03/30/2025 10:00 AM ENVIRONMENTAL SCIENCE INSTRUCTOR Office Visit [facility] Plastic and Reconstructive Surgery Clinic [address] [phone] Lynn Parks APRN [address] 891805 04/16/2025 1:00 PM ENVIRONMENTAL SCIENCE INSTRUCTOR Office Visit [facility] Internal Medicine [address] [phone] Mamadou Bowie MD [address] [place] [address] 920015 05/03/2025 4:00 PM ENVIRONMENTAL SCIENCE INSTRUCTOR Office Visit [facility] Plastic and Reconstructive Surgery Clinic [address] [phone] Kenya Jennings MD [address] [place] [address] 396455 08/17/2025 12:15 PM CDT Office Visit [facility] Dermatology Clinic [address] 3rd [place] [phone] Herber Lopez MD [address] [place] [address] 625645 Scheduled Procedures Name Priority Associated Diagnoses Date/Ti me MASTECTOMY, BILATERAL, FOR GENDER AFFIRMATION Gender dysphoria in adult 03/23/2025 8:00 AM ENVIRONMENTAL SCIENCE INSTRUCTOR documented as of this encounter Goals Goal [...] documented as of this encounter Care Teams Metal Riveting Machine Operator Relationship Specialty Start Date End Date Mamadou Bowie MD [address] [place] [address] 94483 PCP - General 03/18/23 Cindy Ruiz [facility] [address] [place] [address] Resident Internal Medicine 12/07/14 Trevor Espino MD [address] [place] [address] Urology 05/16/16 Jaci Whitlock APRN INPATIENT AUDITOR [address] [place] [address] Nurse Practitioner - Women's Health 12/14/16 Doris Ricci MD [facility] [address] [place] [address] Physician Internal Medicine 07/11/20 Yudy Pompa MD [address] [place] [address] 59538 Assigned Cancer Care Provider 08/21/20 Mary Carmen Rodriguez MD [address] [address] Dermatology 11/09/20 Herber Lopez MD [address] [place] [address] Dermapathology 11/09/20 Gloria Elizalde MD [address] [place] [address] Resident 12/24/22 Mamadou Bowie MD [address] [place] [address] Assigned PCP 03/23/23 Makenzie Romano MD [address] [place] [address] 26354 manager web & Neurology - Child & Adolescent Psychiatry 11/08/23 Shani Stephenson MD [address] [place] [address] Resident Psychiatry 11/08/23 Ita Newton Specialty Feather Mixer 06/04/24 Kenya Jennings MD [address] [place] [address] 10007 Plastic Surgery 06/04/24 Herber Lopez MD [address] [place] [address] 29164 Assigned Dermatology Provider 07/26/24 Сергей Dumont [facility] Restaurant Inspector 08/13/24 Kenya Jennings MD [address] [place] [address] 035595 Assigned Surgical Provider 08/26/24 Luis Dudley MD [address] [facility] [place], [place] 988014 Assigned Behavioral Health Provider 09/25/24 10/25/24 Carmen Cole PA-C [address] R[address] Ruiz [facility] [[email or web address] 103 [place], [place] 482295 Assigned Sleep Provider 09/25/24 documented as of this encounter
--- OUTSIDE RECORDS SUMMARY | 2024-10-28 19:18 | XMS_ITS | Encounter Summary ---
Author Organization [place] Address [address] [place] [address]391 Care Team Providers Care Automatic Cigar Wrapper Tender Name Role Phone Cindy Ruiz Unavailable [phone] Trevor Espino MD Unavailable [phone] Jaci Whitlock APRN MUTUAL FUND ACCOUNTANT Unavailable + Doris Ricci MD Unavailable [phone] Yudy Pompa MD Unavailable [phone] Mary Carmen Rodriguez MD Unavailable + Herber Lopez MD Unavailable +[phone] Gloria Elizalde MD Unavailable [phone] Mamadou Bowie MD Primary Care Provider [phone] Mamadou Bowie MD Unavailable Makenzie Romano MD Unavailable [phone] Shani Stephenson MD Unavailable [phone] Ita Newton Unavailable Unavailable Kenya Jennings MD Unavailable [phone] Herber Lopez MD Unavailable +[phone] Сергей Dumont [facility] Unavailable Unavailable Kenya Jennings MD Unavailable [phone] Luis Dudley MD Unavailable [phone] Carmen Cole PA-C Unavailable [phone] Encounter Details Date Type Department Care Team (Latest Contact Info) Description 10/19/2024 Travel Social History Tobacco Use Types Packs/Day [...] relatives? Three times a week 04/02/2024 Attends [employer] Not on file 04/02 Active Member of Clubs or Organizations Not on f ile 04/02/2024 Attends Club or Organization Meetings Not on jd e 04/02/2024 Marital Status Not on file 04/02/2024 PHQ-2 Answer Date Recorded PHQ-2 Score 3 10/20/2024 [facility] of Occupat ional [facility] - Occupational Stress Questionnaire Answer Date [...] PM CDT Legal Sex Female 3:58 AM HEALTH ANALYTICS CONSULTANT Gender Identity other 11/14/2020 10:33 PM CDT Sexual Orientation Lesbian 06/22/2019 4: 20 AM HEALTH ANALYTICS CONSULTANT documented as of this encounter Plan of Treatment Upcoming Encounters Date Type Department Care Team (Latest Contact Info) Description 10/29/2024 11:00 AM CDT Virtual Visit [facility] [address] [phone] 11/23/2024 1:30 PM CDT Office Visit [facility] Mental Health & Addiction [place] [phone] [address] [place] [address] [phone] Melanie Boykin MD [address] [place] [address] Gloria Elizalde MD 420 [place], [place] 244655 12/03/2024 3:00 PM CDT Office Visit [facility] Psychiatry [facility] [address] [place] [phone] Jesse Arvizu MD [address] [place] [address] 12/15/2024 11:40 AM CDT Ancillary Procedure [facility] Imaging Center CT Clinic [address]st [place] [phone] Yudy Pompa MD [address] [place] [address] 12/22/2024 11:40 AM CDT Oncology Visit [facility] [address] [place] [address] [phone] Yudy Pompa MD [address] [place] [address] 437095 02/22/2025 12:30 PM CDT Office Visit [facility] Plastic and Reconstructive Surgery Clinic [address] [phone] Kenya Jennings MD [address] [place] [address] 09375 03/12/2025 1:00 PM HEALTH ANALYTICS CONSULTANT Office Visit [facility] Internal Medicine [address] 4th [place] [phone] Mamadou Bowie MD [address] [place] [address] 03/23/2025 8:00 AM HEALTH ANALYTICS CONSULTANT Hospital Encounter [facility] PeriOp Services 2450 [place] [phone] Kenya Jennings MD [address] [place] [address] 03/23/2025 8:00 AM HEALTH ANALYTICS CONSULTANT - 03/23/2025 12:05 PM HEALTH ANALYTICS CONSULTANT Surgery [facility] PeriOp Services [address] [place] [phone] Kenya Jennings MD [address] [place] [address] 932[address] MASTECTOMY, BILATERAL, SIMPLE, NO nipple grafts. OnQ 03/30/2025 10:00 AM HEALTH ANALYTICS CONSULTANT Office Visit [facility] Plastic and Reconstructive Surgery Clinic [address] [phone] Lynn Parks APRN [address] 418035 04/16/2025 1:00 PM HEALTH ANALYTICS CONSULTANT Office Visit [facility] Internal Medicine [address] [phone] Mamadou Bowie MD [address] [place] [address] 648915 05/03/2025 4:00 PM HEALTH ANALYTICS CONSULTANT Office Visit [facility]astic and Reconstruct[facility] Clinic [address] [phone] Kenya Jennings MD [address] [place] [address] 570695 08/17/2025 12:15 PM CDT Office Visit [facility] Dermatology Clinic [address] [place] [phone] Herber Lopez MD [address] [place] [address] 193865 Scheduled Procedures Name Priority Associated Diagnoses Date/Ti me MASTECTOMY, BILATERAL, FOR GENDER AFFIRMATION Gender dysphoria in adult 03/23/2025 8:00 AM HEALTH ANALYTICS CONSULTANT documented as of this encounter Goals Goal [...] documented as of this encounter Care Teams Automatic Cigar Wrapper Tender Relationship Specialty Start Date End Date Mamadou Bowie MD [address] [place] [address] 18114 PCP - General 03/18/23 Cindy Ruiz [facility] [address] [place] [address] Resident Internal Medicine 12/07/14 Trevor Espino MD [address] [place] [address] 28510 Urology 05/16/16 Jaci Whitlock APRN MUTUAL FUND ACCOUNTANT [address] [place] [address] Nurse Practitioner - Women's Health 12/14/16 Doris Ricci MD [facility] [address] [place] [address] Physician Internal Medicine 07/11/20 Yudy Pompa MD [address] [place] [address] 75906 Assigned Cancer Care Provider 08/21/20 Mary Carmen Rodriguez MD [address] [address] Dermatology 11/09/20 Herber Lopez MD [address] [place] [address] Dermapathology 11/09/20 Gloria Elizalde MD [address] [place] [address] Resident 12/24/22 Mamadou Bowie MD [address] [place] [address] 14649 Assigned PCP 03/23/23 Makenzie Romano MD [address] [place] [address] airbrush artist technical & Neurology - Child & Adolescent Psychiatry 11/08/23 Shani Stephenson MD [address] [place] [address] 31573 Resident Psychiatry 11/08/23 Ita Newton Specialty Proof Load Mechanic 06/04/24 Kenya Jennings MD [address] [place] [address] 95884 Plastic Surgery 06/04/24 Herber Lopez MD [address] [place] [address] 38612 Assigned Dermatology Provider 07/26/24 Сергей Dumont [facility] Vamp Presser 08/13/24 Kenya Jennings MD [address] [place] [address] 856405 Assigned Surgical Provider 08/26/24 Luis Dudley MD [address] [facility] [place], [place] 475624 Assigned Behavioral Health Provider 09/25/24 10/25/24 Carmen Cole PA-C [address] [facility] 103 [place], [place] 342535 Assigned Sleep Provider 09/25/24 documented as of this encounter
--- OUTSIDE RECORDS SUMMARY | 2024-10-28 19:18 | XMS_ITS | Encounter Summary ---
Author Organization [facility] Address [address] [place] [address] 538[address] Care Team Providers Care Consolidator Name Role Phone Cindy Ruiz Unavailable [phone] Trevor Espino MD Unavailable [phone] Jaci Whitlock APRN REGIONAL BRANCH MANAGER Unavailable + Doris Ricci MD Unavailable Yudy Pompa MD Unavailable [phone] Mary Carmen Rodriguez MD Unavailable + Herber Lopez MD Unavailable +[phone] Gloria Elizalde MD Unavailable [phone] Mamadou Bowie MD Primary Care Provider [phone] Mamadou Bowie MD Unavailable Makenzie Romano MD Unavailable [phone] Shani Stephenson MD Unavailable [phone] Ita Newton Unavailable Unavailable Kenya Jennings MD Unavailable [phone] Herber Lopez MD Unavailable +[phone] Сергей Dumont [facility] Unavailable Unavailable Kenya Jennings MD Unavailable +[phone] Luis Dudley MD Unavailable [phone] Carmen Cole PA-C Unavailable +[phone] Encounter Details Date Type Department Care Team (Latest Contact Info) Description 10/12/2024 Travel Social History Tobacco Use Types Packs/Day [...] Answer Date Recorded PHQ-2 Score 3 10/13/2024 [facility] of Occupat ional Health - Occupational [...] PM CDT Legal Sex Female 3:58 AM PUBLIC RELATIONS ACCOUNT SUPERVISOR Gender Identity other 11/14/2020 10:33 PM CDT Sexual Orientation Lesbian 06/22/2019 4: 20 AM PUBLIC RELATIONS ACCOUNT SUPERVISOR documented as of this encounter Plan of Treatment Upcoming Encounters Date Type Department Care Team (Latest Contact Info) Description 10/29/2024 11:00 AM CDT Virtual Visit [facility] [address] [phone] 11/23/2024 1:30 PM CDT Office Visit [facility] Mental [facility] & Addiction [place] [phone] [address] [place] [address] [phone] Melanie Boykin MD [address] [place] [address] 55[address] Gloria Elizalde MD 420 [place], [place] 413205 12/03/2024 3:00 PM CDT Office Visit [facility] Psychiatry [facility] [address] [place] [phone] Jesse Arvizu MD [address] [place] [address] 12/15/2024 11:40 AM CDT Ancillary Procedure [facility] Imaging Center CT Clinic [address] [place] [phone] Yudy Pompa MD [address] [place] [address] 12/22/2024 11:40 AM CDT Oncology Visit [facility] [address] [place] [address] [phone] Yudy Pompa MD [address] [place] [address] 755255 02/22/2025 12:30 PM CDT Office Visit [facility] [address] [phone] Kenya Jennings MD [address] [place] [address] 96851 03/12/2025 1:00 PM PUBLIC RELATIONS ACCOUNT SUPERVISOR Office Visit [facility] Internal Medicine [address] [place] [phone] Mamadou Bowie MD [address] [place] [address] 179[address] 03/23/2025 8:00 AM PUBLIC RELATIONS ACCOUNT SUPERVISOR Hospital Encounter [facility] PeriOp Services 2450 [place] [phone] Kenya Jennings MD [address] [place] [address] 22[address] 03/23/2025 8:00 AM PUBLIC RELATIONS ACCOUNT SUPERVISOR - 03/23/2025 12:05 PM PUBLIC RELATIONS ACCOUNT SUPERVISOR Surgery [facility] [address] [place] [phone] Kenya Jennings MD [address] [place] [address] 20197 MASTECTOMY, BILATERAL, SIMPLE, NO nipple grafts. OnQ 03/30/2025 10:00 AM PUBLIC RELATIONS ACCOUNT SUPERVISOR Office Visit [facility] [address] [phone] Lynn Parks APRN [address] 358965 04/16/2025 1:00 PM PUBLIC RELATIONS ACCOUNT SUPERVISOR Office Visit [facility] Internal Medicine [address] [phone] Mamadou Bowie MD [address] [place] [address] 313055 05/03/2025 4:00 PM PUBLIC RELATIONS ACCOUNT SUPERVISOR Office Visit [facility] [address] [phone] Kenya Jennings MD [address] [place] [address] 679045 08/17/2025 12:15 PM CDT Office Visit [facility] Dermatology Clinic [address] [place] [phone] Herber Lopez MD [address] [place] [address] 672715 Scheduled Procedures Name Priority Associated Diagnoses Date/Ti me MASTECTOMY, BILATERAL, FOR GENDER AFFIRMATION Gender dysphoria in adult 03/23/2025 8:00 AM PUBLIC RELATIONS ACCOUNT SUPERVISOR documented as of this encounter Goals Goal [...] documented as of this encounter Care Teams Consolidator Relationship Specialty Start Date End Date Mamadou Bowie MD [address] [place] [address]2381 PCP - General 03/18/23 Cindy Ruiz [facility] [address] [place] [address] Resident Internal Medicine 12/07/14 Trevor Espino MD [address] [place] [address] 17697 Urology 05/16/16 Jaci Whitlock APRN REGIONAL BRANCH MANAGER [address] [place] [address] 82957 Nurse Practitioner - Women's Health 12/14/16 Doris Ricci MD [facility] [address] [place] [address] Physician Internal Medicine 07/11/20 Yudy Pompa MD [address] [place] [address] 83678 Assigned Cancer Care Provider 08/21/20 Mary Carmen Rodriguez MD [address] [address] Dermatology 11/09/20 Herber Lopez MD [address] [place] [address] 34910 Dermapathology 11/09/20 Gloria Elizalde MD [address] [place] [address] Resident 12/24/22 Mamadou Bowie MD [address] [place] [address] 89707 Assigned PCP 03/23/23 Makenzie Romano MD [address] [place] [address] 979[address] assistant press operator offset & Neurology - Child & Adolescent Psychiatry 11/08/23 Shani Stephenson MD [address] [place] [address] 20865 Resident Psychiatry 11/08/23 Ita Newton Specialty Squeegee Operator 06/04/24 Kenya Jennings MD [address] [place] [address] 85804 Plastic Surgery 06/04/24 Herber Lopez MD [address] [place] [address] 13275 Assigned Dermatology Provider 07/26/24 Сергей Dumont [facility] Sanding Machine Tender 08/13/24 Kenya Jennings MD [address] [place] [address] 286675 Assigned Surgical Provider 08/26/24 Luis Dudley MD [address] [facility] [place], [place] [address] Assigned Behavioral Health Provider 09/25/24 10/25/24 Carmen Cole PA-C [address] [facility] [address] [place], [place] 897455 Assigned Sleep Provider 09/25/24 documented as of this encounter
--- OUTSIDE RECORDS SUMMARY | 2024-10-28 19:18 | XMS_ITS | Encounter Summary ---
Author Organization [facility] Address [address] [place] [address] 57354 Care Team Providers Care Shirt Marker Name Role Phone Cindy Ruiz Unavailable [phone] Trevor Espino MD Unavailable [phone] Jaci Whitlock APRN CRAFT WORKER Unavailable + Doris Ricci MD Unavailable [phone] Yudy Pompa MD Unavailable [phone] Mary Carmen Rodriguez MD Unavailable + Herber Lopez MD Unavailable +[phone] Gloria Elizalde MD Unavailable [phone] Mamadou Bowie MD Primary Care Provider [phone] Mamadou Bowie MD Unavailable Herber Lopez MD Unavailable +[phone] Makenzie Romano MD Unavailable [phone] Shani Stephenson MD Unavailable [phone] Yomi Campos PhD Unavailable [phone] Ita Newton Unavailable Unavailable Kenya Jennings MD Unavailable [phone] Herber Lopez MD Unavailable [phone] Сергей Dumont [facility] Unavailable Unavailable Kenya Jennings MD Unavailable [phone] Jesse Arvizu MD Unavailable Luis Dudley MD Unavailable [phone] Carmen Cole PA-C Unavailable [phone] Racheal Ng MD Unavailable [phone] Encounter Details Date Type Department Care Team (Late st Contact Info) Description 03/23/2024 MyC Medical Advice [facility] Internal Medicine [address] [place] [address] Marichuy Marrero Social History Tobacco Use Types Packs/Day Years Used Date Smoking Tobacco: Never Passive Smoke Exposure: Never Smokeless Tobacco: Never Alcohol Use Standard Drinks/Week Comments Yes 0 (1 standard drink = 0.6 oz pur e alcohol) 1 drink every couple of weeks Social Connection and Isolation Panel [NHANES] A nswer Date Recorded Frequency of Communication with Friends and Fami ly Not on file 03/23/2024 How often do you get together with friends or re latives? Twice a week 03/23/2024 Attends [facility] Not on file 03/23 Active Member of Clubs or Organizations Not on f ile 03/23/2024 Attends Club or Organization Meetings Not on jd e 03/23/2024 Marital Status Not on file 03/23/2024 PHQ-2 Answer Date Recorded PHQ-2 Score 2 03/24/2024 [facility] of Occupat ional Health - Occupational Stress Questionnaire Answer Date Recorded Do you feel stress - tense, restless, nervous, or anxious, or unable to sleep at night because your mind is troubled all the time - these days? Only a little 03/23/2024 Exercise Vital Sign Answer Date Recorde d On average, how many days pe r week do you engage in moderate to strenuous exercise (like a brisk walk)? 5 days 03/23/2024 On average, how many minutes do you engage in exercise at this level? 40 min 03/23/2024 Adolescent Education Answer Date Record ed Getting School Help Needed Not on file 01/29 Food Insecurity Answer Date Recorded Within the past 12 months, d id you worry that your food would run out before you got money to buy more? Patient declined 1 2023 Within the past 12 months, d id the food you bought just not last and you didn t have money to get more? No 03/23/2024 Housing Stability Answer Date Recorded Do you have housing? (Familia zaidi is defined as stable permanent housing and does not include staying outside in a car, in a tent, in an abandoned building, in an overnight nursing home, or couch-surfing.) No 03/23/2024 Are you worried about losing your housing? No 03/23/2024 Financial Resource Strain Answer Date R ecorded Within the past 12 months, h ave you or your family members you live with been unable to get utilities (heat, electricity) when it was really needed? No 03/23/2024 Transportation Needs Answer Date Record ed Within the past 12 months, h as lack of transportation kept you from medical appointments, getting your medicines, non-medical meetings or appointments, work, or from getting things that you need? No 03/23/2024 Interpersonal Safety Answer Date Record ed Do [...] PM CDT Legal Sex Female 3:58 AM COMBINE OPERATOR Gender Identity other 11/14/2020 10:33 PM CDT Sexual Orientation Lesbian 06/22/2019 4: 20 AM COMBINE OPERATOR documented as of this encounter Plan of Treatment Upcoming Encounters Date Type Department Care Team (Latest Contact Info) Description 10/29/2024 11:00 AM CDT [facility] [address] [facility] [address] [place] [phone] 11/23/2024 1:30 PM CDT Office Visit [facility] Mental Health & Addiction [place] [phone] [address] [place] [phone] Melanie Boykin MD 2860 [place], [place] 712884 Gloria Elizalde MD [address] [place] [address] 240915 12/03/2024 3:00 PM CDT [facility] 5775 [facility] [address] [place] [phone] Jesse Arvizu MD 5775 [place], [place] 570586 12/15/2024 11:40 AM CDT Ancillary Procedure [facility] Imaging Center CT Clinic [address] [phone] Yudy Pompa MD [address] [place] [address] 303975 12/22/2024 11:40 AM CDT Oncology Visit [facility] [address] [place] [address] [phone] Yudy Pompa MD [address] [place] [address] 758185 02/22/2025 12:30 PM CDT Office Visit [facility] Plastic [facility] Reconstruct[facility] Surgery Clinic [address] [phone] Kenya Jennings MD [address] [place] [address] 195 [place], [place] 847545 03/12/2025 1:00 PM COMBINE OPERATOR Office Visit [facility] Internal Medicine [address] [place] [phone] Mamadou Bowie MD [address] [place] [address] 9[address] 03/23/2025 8:00 AM COMBINE OPERATOR Hospital Encounter [facility] PeriOp Services Counts include 234 beds at the [facility] [place] [place] [phone] Kneya Jennings MD [address] [place] [address] 905575 03/23/2025 8:00 AM COMBINE OPERATOR - 03/23/2025 12:05 PM COMBINE OPERATOR Surgery [facility] [address] [place] [address] [facility] [phone] Kenya Jennings MD [address] [place] [address] 74090 MASTECTOMY, BILATERAL, SIMPLE, NO nipple grafts. OnQ 03/30/2025 10:00 AM COMBINE OPERATOR Office Visit [facility]construct[facility] Clinic [address] [phone] Lynn Parks APRN [address] [address] 04/16/2025 1:00 PM COMBINE OPERATOR Office Visit [facility] Internal Medicine [address] [phone] Mamadou Bowie MD [address] [place] [address] 52280 05/03/2025 4:00 PM COMBINE OPERATOR Office Visit [facility] Clinic [address] [phone] Kenya Jennings MD [address] [place] [address] 664145 08/17/2025 12:15 PM CDT Office Visit [facility] Dermatology Clinic [place] [address] [place] [address] 3rd [place] [phone] Herber Lopez MD 420 [facility] [address] [place] [address] Scheduled Procedures Name Priority Associated Diagnoses Date/Ti me MASTECTOMY, BILATERAL, FOR GENDER AFFIRMATION Gender dysphoria in adult 03/23/2025 8:00 AM COMBINE OPERATOR documented as of this encounter Visit Diagnoses Not on filedocumented in this encounter Additional Health Concerns Assessment Noted Time PHQ-9 Depression Total Score: 4 03/23/20 24 10:30 PM COMBINE OPERATOR documented as of this encounter Care Teams Shirt Marker Relationship Specialty Start Date End Date Mamadou Bowie MD [address] [place] [address] 04286 PCP - General 03/18/23 Cindy Ruiz [facility] [address] [place] [address] Resident Internal Medicine 12/07/14 Trevor Espino MD [address] [place] [address] 94974 Urology 05/16/16 Jaci Whitlock APRN CRAFT WORKER [address] [place] [address] 395 [place] [address] Nurse Practitioner - Women's Health 12/14/16 Doris Ricci MD [facility] [address] [address] Physician Internal Medicine 07/11/20 Yudy Pompa MD [address] [place] [address] 83509 Assigned Cancer Care Provider 08/21/20 Mary Carmen Rodriguez MD [address] [place] [address] 69389 MD Dermatology 11/09/20 Herber Lopez MD [address] [place] [address] 04824 Dermapathology 11/09/20 Gloria Elizalde MD [address] [place] [address] 26666 Resident 12/24/22 Mamadou Bowie MD [address] [place] [address] 66219 Assigned PCP 03/23/23 Herber Lopez MD [address] [place] [address] 20919 Assigned Surgical Provider 05/18/23 07/25/24 Makenzie Romano MD [address] [place] [address] 044334 editor & Neurology - Child & Adolescent Psychiatry 11/08/23 Shani Stephenson MD [address] [place] [address] 963095 Resident Psychiatry 11/08/23 Yomi Campos, PhD [address] [place] [address] 736124 Assigned Behavioral Health Provider 01/27/24 08/25/24 Ita Newton Specialty Entry Level Sales Representative 06/04/24 Kenya Jennings MD 420 [facility] 195 [place] [address] Plastic Surgery 06/04/24 Herber Lopez MD 420 [facility] [address] [place] [address] Assigned Dermatology Provider 07/26/24 Сергей Dumont [facility] Fence Repairman 08/13/24 Kenya Jennings MD 420 [facility] 195 [place] [address] Assigned Surgical Provider 08/26/24 Jesse Arvizu MD 5775 [place] [address] Assigned Behavioral Health Provider 08/26/24 09/24/24 Luis Dudley MD 240 [place], [place] 040064 Assigned Behavioral Health Provider 09/25/24 10/25/24 Carmen Cole PA-C 6363 [facility] 103 [place], [place] 675475 Assigned Sleep Provider 09/25/24 Racheal Ng MD [address] [place] 8805182 [place], [place] 335584 Assigned Behavioral Health Provider 10/26/24 documented as of this encounter
--- OUTSIDE RECORDS SUMMARY | 2024-10-28 19:18 | XMS_ITS | Encounter Summary ---
Author Organization [place] [facility] Address [address] [place] [address] Care Team Providers Care Qual Field Manager Name Role Phone Cindy Ruiz Unavailable [phone] Trevor Espino MD Unavailable [phone] Jaci Whitlock APRN RED HAT LINUX ADMINISTRATOR Unavailable + Doris Ricci MD Unavailable [phone] Yudy Pompa MD Unavailable [phone] Mary Carmen Rodriguez MD Unavailable + Herber Lopez MD Unavailable [phone] Gloria Elizalde MD Unavailable Mamadou Bowie MD Primary Care Provider [phone] Mamadou Bowie MD Unavailable Makenzie Romnao MD Unavailable [phone] Shani Stephenson MD Unavailable [phone] Ita Newton Unavailable Unavailable Kenya Jennings MD Unavailable [phone] Herber Lopez MD Unavailable +[phone] Сергей Dumont [facility] Unavailable Unavailable Kenya Jennings MD Unavailable [phone] Luis Dudley MD Unavailable [phone] Carmen Cole PA-C Unavailable +[phone] Encounter Details Date Type Department Care Team (Latest Contact Info) Description 10/14/2024 Travel Social History Tobacco Use Types Packs/Day [...] relatives? Three times a week 04/02/2024 Attends [employer] Not on file 04/02 Active Member of Clubs or Organizations Not on f ile 04/02/2024 Attends Club or Organization Meetings Not on jd e 04/02/2024 Marital Status Not on file 04/02/2024 PHQ-2 Answer Date Recorded PHQ-2 Score 2 10/15/2024 [facility] of Occupat ional [facility] - Occupational Stress Questionnaire Answer Date [...] PM CDT Legal Sex Female 3:58 AM GUARD IMMIGRATION Gender Identity other 11/14/2020 10:33 PM CDT Sexual Orientation Lesbian 06/22/2019 4: 20 AM GUARD IMMIGRATION documented as of this encounter Plan of Treatment Upcoming Encounters Date Type Department Care Team (Latest Contact Info) Description 10/29/2024 11:00 AM CDT Virtual Visit [facility] [address] [address] 11/23/2024 1:30 PM CDT Office Visit [facility] Mental Health & Addiction [place] [phone] [address] [place] [address] [phone] Melanie Boykin MD [address] [place] [address] Gloria Elizalde MD 420 [place], [place] 978385 12/03/2024 3:00 PM CDT Office Visit [facility] Psychiatry [facility] [address] [place] [phone] Jesse Arvizu MD [address] [place] [address] 12/15/2024 11:40 AM CDT Ancillary Procedure [facility] Imaging Center CT Clinic [address] [place] [phone] Yudy Pompa MD [address] [place] [address] 12/22/2024 11:40 AM CDT Oncology Visit [facility] [address] [place] [address] [phone] Yudy Pompa MD [address] [place] [address] 732755 02/22/2025 12:30 PM CDT Office Visit [facility] Plastic and Reconstructive Surgery Clinic [address] [phone] Kenya Jennings MD [address] [place] [address]489 03/12/2025 1:00 PM GUARD IMMIGRATION Office Visit [facility] Internal Medicine [address] [place] [phone] Mamadou Bowie MD [address] [place] [address] 03/23/2025 8:00 AM GUARD IMMIGRATION Hospital Encounter [facility] PeriOp Services 2450 [place] [phone] Kenya Jennings MD [address] [place] [address] 03/23/2025 8:00 AM GUARD IMMIGRATION - 03/23/2025 12:05 PM GUARD IMMIGRATION Surgery [facility] PeriOp Services [address] [place] [phone] Kenya Jennings MD [address] [place] [address] MASTECTOMY, BILATERAL, SIMPLE, NO nipple grafts. OnQ 03/30/2025 10:00 AM GUARD IMMIGRATION Office Visit [facility] Plastic and Reconstructive Surgery Clinic [address] [phone] Lynn Parks APRN [address] 304175 04/16/2025 1:00 PM GUARD IMMIGRATION Office Visit [facility] Internal Medicine [address] [phone] Mamadou Bowie MD [address] [place] [address] 995385 05/03/2025 4:00 PM GUARD IMMIGRATION Office Visit [facility] Plastic and Reconstructive Surgery Clinic [address] [phone] Kenya Jennings MD [address] [place] [address] 920845 08/17/2025 12:15 PM CDT Office Visit [facility] Dermatology Clinic [address] [place] [phone] Herber Lopez MD [address] [place] [address] 912755 Scheduled Procedures Name Priority Associated Diagnoses Date/Ti me MASTECTOMY, BILATERAL, FOR GENDER AFFIRMATION Gender dysphoria in adult 03/23/2025 8:00 AM GUARD IMMIGRATION documented as of this encounter Goals Goal [...] documented as of this encounter Care Teams Qual Field Manager Relationship Specialty Start Date End Date Mamadou Bowie MD [address] [place] [address] 79176 PCP - General 03/18/23 Cindy Ruiz [facility] [address] [place] [address] Resident Internal Medicine 12/07/14 Trevor Espino MD [address] [place] [address] 24849 Urology 05/16/16 Jaci Whitlock APRN RED HAT LINUX ADMINISTRATOR [address] [place] [address] 689[address] Nurse Practitioner - Women's Health 12/14/16 Doris Ricci MD [facility] [address] [place] [address] Physician Internal Medicine 07/11/20 Yudy Pompa MD [address] [place] [address] 66980 Assigned Cancer Care Provider 08/21/20 Mary Carmen Rodriguez MD [address] [address] Dermatology 11/09/20 Herber Lopez MD [address] [place] [address] 96018 Dermapathology 11/09/20 Gloria Elizalde MD [address] [place] [address] 14249 Resident 12/24/22 Mamadou Bowie MD [address] [place] [address] 92400 Assigned PCP 03/23/23 Makenzie Romano MD [address] [place] [address] 08407 crepe sole wire brusher & Neurology - Child & Adolescent Psychiatry 11/08/23 Shani Stephenson MD [address] [place] [address] 10590 Resident Psychiatry 11/08/23 Ita Newton Specialty Director Online Marketing 06/04/24 Kenya Jennings MD [address] [place] [address] 15448 Plastic Surgery 06/04/24 Herber Lopez MD [address] [place] [address] 13675 Assigned Dermatology Provider 07/26/24 Сергей Dumont [facility] Rigging Worker 08/13/24 Kenya Jennings MD [address] [place] [address] 931625 Assigned Surgical Provider 08/26/24 Luis Dudley MD [address] [facility] [place] 7[address] Assigned Behavioral Health Provider 09/25/24 10/25/24 Carmen Cole PA-C 6363 R[address] Ruiz [facility] 103 [place], [place] 597125 Assigned Sleep Provider 09/25/24 documented as of this encounter
--- OUTSIDE RECORDS SUMMARY | 2024-10-28 19:19 | XMS_ITS | Encounter Summary ---
Author Organization [facility] Address [address] [place] [address] 09003 Care Team Providers Care Valve Tester Name Role Phone Cindy Ruiz Unavailable [phone] Trevor Espino MD Unavailable [phone] Jaci Whitlock APRN GLUTEN SETTLING TENDER Unavailable + Doris Ricci MD Unavailable [phone] Yudy Pompa MD Unavailable [phone] Mary Carmen Rodriguez MD Unavailable + Herber Lopez MD Unavailable +[phone] Gloria Elizalde MD Unavailable [phone] Mamadou Bowie MD Primary Care Provider [phone] Mamadou Bowie MD Unavailable Herber Lopez MD Unavailable +[phone] Makenzie Romano MD Unavailable [phone] Shani Stephenson MD Unavailable [phone] Yomi Campos PhD Unavailable +[phone] Ita Newton Unavailable Unavailable Kenya Jennings MD Unavailable +[phone] Herber Lopez MD Unavailable [phone] Сергей Dumont [facility] Unavailable Unavailable Kenya Jennings MD Unavailable [phone] Jesse Arvizu MD Unavailable Luis Dudley MD Unavailable +[phone] Carmen Cole PA-C Unavailable +[phone] Racheal Ng MD Unavailable [phone] Encounter Details Date Type Department Care Team (Late st Contact Info) Description 04/20/[address] [facility]astic and Re[facility] Surgery Clinic [address] 4th [place] [address] Ita Newton Social History Tobacco [...] relatives? Three times a week 04/02/2024 Attends Sikh Services Not on file 04/02 Active Member of Clubs or Organizations Not on f ile 04/02/2024 Attends Club or Organization Meetings Not on jd e 04/02/2024 Marital Status Not on file 04/02/2024 PHQ-2 Answer Date Recorded PHQ-2 Score 2 04/03/2024 [facility] - Occupational Stress [...] PM CDT Legal Sex Female 3:58 AM MANAGER COMMERCIAL Gender Identity other 11/14/2020 10:33 PM CDT Sexual Orientation Lesbian 06/22/2019 4: 20 AM MANAGER COMMERCIAL documented as of this encounter Plan of Treatment Upcoming Encounters Date Type Department Care Team (Latest Contact Info) Description 10/29/2024 11:00 AM CDT [facility] [address] [place] [phone] 11/23/2024 1:30 PM CDT Office Visit [facility] Mental Health & Addiction [place] [id number] [address] [place] [phone] Melanie Boykin MD [address]50 [place], [place] 433384 Gloria Elizalde MD [address] [place] [address] 902635 12/03/2024 3:00 PM CDT [facility] [address] [facility] [address] [place] [phone] Jesse Arvizu MD 5775 [place], [place] 763526 12/15/2024 11:[address] [facility] Imaging Center [place] Clinic [address] [phone] Yudy Pompa MD [address] [place] [address] 869775 12/22/2024 11:40 AM CDT Oncology Visit [facility] [address] [place] [address] [phone] Yudy Pompa MD [address] [place] [address] 692645 02/22/2025 12:30 PM CDT Office Visit [facility] [address] [phone] Kenya Jennings MD [address] [place] [address] 195 [place], [place] 308865 03/12/2025 1:00 PM MANAGER COMMERCIAL Office Visit [facility] [address] 4th [place] [phone] Mamadou Bowie MD [address] [place] [address] 133[address] 03/23/2025 8:00 AM MANAGER COMMERCIAL Hospital Encounter [facility] PeriOp Services Critical access hospital0 [facility] [phone] Kenya Jennings MD [address] [place] [address] 704675 03/23/2025 8:00 AM MANAGER COMMERCIAL - 03/23/2025 12:05 PM MANAGER COMMERCIAL Surgery [facility] [address] [place] [address] [place] [phone] Kenya Jennings MD [address] [place] [address] 208[address] MASTECTOMY, BILATERAL, SIMPLE, NO nipple grafts. OnQ 03/30/2025 10:00 AM MANAGER COMMERCIAL Office Visit [facility] [address] [phone] Lynn Parks APRN [address] [address] 04/16/2025 1:00 PM MANAGER COMMERCIAL Office Visit [facility] [address] [phone] Mamadou Bowie MD [address] [place] [address] 9[address] 05/03/2025 4:00 PM MANAGER COMMERCIAL Office Visit [facility] [address] [phone] Kenya Jennings MD [address] [place] [address] 960405 08/17/2025 12:15 PM CDT Office Visit [facility] Dermatology Clinic [place] [address] [place] [address] 3rd [place] [phone] Herber Lopez MD 420 [facility] 98 [place] [address] Scheduled Procedures Name Priority Associated Diagnoses Date/Ti me MASTECTOMY, BILATERAL, FOR GENDER AFFIRMATION Gender dysphoria in adult 03/23/2025 8:00 AM MANAGER COMMERCIAL documented as of this encounter Visit Diagnoses Not on filedocumented in this encounter Additional Health Concerns Assessment Noted Time PHQ-9 Depression Total Score: 4 04/02/20 24 12:39 PM MANAGER COMMERCIAL documented as of this encounter Care Teams Valve Tester Relationship Specialty Start Date End Date Mamadou Bowie MD [address] [place] [address] PCP - General 03/18/23 Cindy Ruiz [facility] [place] [place] [address] Resident Internal Medicine 12/07/14 Trevor Espino MD [address] [place] [address] 21918 Urology 05/16/16 Jaci Whitlock APRN GLUTEN SETTLING TENDER [address] [place] [address] 395 [place] [address] Nurse Practitioner - Women's Health 12/14/16 Doris Ricci MD [facility] & [address] [address] Physician Internal Medicine 07/11/20 Yudy Pompa MD [address] [place] [address] 35971 Assigned Cancer Care Provider 08/21/20 Mary Carmen Rodriguez MD [address] [place] [address]005 MD Dermatology 11/09/20 Herber Lopez MD [address] [place] [address] 98124 Dermapathology 11/09/20 Gloria Elizalde MD [address] [place] [address] Resident 12/24/22 Mamadou Bowie MD [address] [place] [address] 40274 Assigned PCP 03/23/23 Herber Lopez MD [address] [place] [address] 44121 Assigned Surgical Provider 05/18/23 07/25/24 Makenzie Romano MD [address] [place] [address] [phone] carpet mechanic & Neurology - Child & Adolescent Psychiatry 11/08/23 Shani Stephenson MD [address] [place] [address] 358965 Resident Psychiatry 11/08/23 Yomi Campos, PhD [address] [place] [address] 100754 Assigned Behavioral Health Provider 01/27/24 08/25/24 Ita Newton [employer]ty Studio Control Operator 06/04/24 Kenya Jennings MD 420 [facility] 195 [place] [address] Plastic Surgery 06/04/24 Herber Lopez MD 420 [facility] 98 [place] [address] Assigned Dermatology Provider 07/26/24 Сергей Dumont [facility] Hot Metal Charger 08/13/24 Kenya Jennings MD 420 [facility] 195 [place] [address] Assigned Surgical Provider 08/26/24 Jesse Arvizu MD 5775 [place] [address] Assigned Behavioral Health Provider 08/26/24 09/24/24 Luis Dudley MD 240 [place], [place] 614584 Assigned Behavioral Health Provider 09/25/24 10/25/24 Carmen Cole PA-C 6363 [facility] 103 [place], [place] 232995 Assigned Sleep Provider 09/25/24 Racheal Ng MD [address] [place] [id number] [place], [place] 736624 Assigned Behavioral Health Provider 10/26/24 documented as of this encounter
--- OUTSIDE RECORDS SUMMARY | 2024-10-28 19:19 | XMS_ITS | Encounter Summary ---
Author Organization [facility] Address [address] [place] [address] Care Team Providers Care Simulation Developer Name Role Phone Cindy Ruiz Unavailable [phone] Trevor Espino MD Unavailable [phone] Jaci Whitlock APRN PACKAGING SALES REPRESENTATIVE Unavailable + Doris Ricci MD Unavailable uYdy Pompa MD Unavailable [phone] Mary Carmen Rodriguez MD Unavailable + Herber Lopez MD Unavailable +[phone] Gloria Elizalde MD Unavailable [phone] Mamadou Bowie MD Primary Care Provider [phone] Mamadou Bowie MD Unavailable Makenzie Romano MD Unavailable [phone] Shani Stephenson MD Unavailable [phone] Ita Newton Unavailable Unavailable Kenya Jennings MD Unavailable [phone] Hreber Lopez MD Unavailable [phone] Сергей Dumont [facility] Unavailable Unavailable Kenya Jennings MD Unavailable [phone] Luis Dudley MD Unavailable [phone] Carmen Cole PA-C Unavailable +[phone] Encounter Details Date Type Department Care Team (Latest Contact Info) Description 10/05/2024 Travel Social History Tobacco Use Types Packs/Day [...] Answer Date Recorded PHQ-2 Score 2 10/06/2024 [facility] of Occupat [...] in an overnight penitentiary, or couch-surfing.) Yes 04/03/2024 Are you worried [...] PM CDT Legal Sex Female 3:58 AM SENIOR PROJECT ARCHITECT Gender Identity other 11/14/2020 10:33 PM CDT Sexual Orientation Lesbian 06/22/2019 4: 20 AM SENIOR PROJECT ARCHITECT documented as of this encounter Plan of Treatment Upcoming Encounters Date Type Department Care Team (Latest Contact Info) Description 10/29/2024 11:00 AM CDT Virtual Visit [facility] [address] [phone] 11/23/2024 1:30 PM CDT Office Visit [facility] Mental Health & Addiction [place] [phone] [address] [place] [address] [phone] Melanie Boykin MD [address] [place] [address] Gloria Elizalde MD 420 [place], [place] 145305 12/03/2024 3:00 PM CDT Office Visit [facility] Psychiatry [facility] [address] [place] [phone] Jesse Arvizu MD [address] [place] [address] 12/15/2024 11:40 AM CDT Ancillary Procedure [facility] Imaging Center CT Clinic [address]st [place] [phone] Yudy Pompa MD [address] [place] [address] 16417 12/22/2024 11:40 AM CDT Oncology Visit [facility] [address] [place] [address] [phone] Yudy Pompa MD [address] [place] [address] 886185 02/22/2025 12:30 PM CDT Office Visit [facility] [address] [phone] Kenya Jennings MD [address] [place] [address] 03/12/2025 1:00 PM SENIOR PROJECT ARCHITECT Office Visit [facility] Internal Medicine [address] [place] [phone] Mamadou Bowie MD [address] [place] [address] 03/23/2025 8:00 AM SENIOR PROJECT ARCHITECT Hospital Encounter [facility] PeriOp Services 2450 [place] [phone] Kenya Jennings MD [address] [place] [address] 03/23/2025 8:00 AM SENIOR PROJECT ARCHITECT - 03/23/2025 12:05 PM SENIOR PROJECT ARCHITECT Surgery [facility] PeriOp Services [address] [place] [phone] Kenya Jennings MD [address] [place] [address] 99[address] MASTECTOMY, BILATERAL, SIMPLE, NO nipple grafts. OnQ 03/30/2025 10:00 AM SENIOR PROJECT ARCHITECT Office Visit [facility] [address] [phone] Lynn Parks APRN [address] 121365 04/16/2025 1:00 PM SENIOR PROJECT ARCHITECT Office Visit [facility] Internal Medicine [address] [phone] Mamadou Bowie MD [address] [place] [address] 995865 05/03/2025 4:00 PM SENIOR PROJECT ARCHITECT Office Visit [facility] [address] [phone] Kenya Jennings MD [address] [place] [address] 363665 08/17/2025 12:15 PM CDT Office Visit [facility] Dermatology Clinic [address] [place] [phone] Herber Lopez MD [address] [place] [address] 968155 Scheduled Procedures Name Priority Associated Diagnoses Date/Ti me MASTECTOMY, BILATERAL, FOR GENDER AFFIRMATION Gender dysphoria in adult 03/23/2025 8:00 AM SENIOR PROJECT ARCHITECT documented as of this encounter Goals Goal [...] documented as of this encounter Care Teams Simulation Developer Relationship Specialty Start Date End Date Mamadou Bowie MD [address] [place] [address] 01682 PCP - General 03/18/23 Cindy Ruiz [facility] [address] [place] [address] Resident Internal Medicine 12/07/14 Trevor Espino MD [address] [place] [address] 78702 Urology 05/16/16 Jaci Whitlock APRN PACKAGING SALES REPRESENTATIVE [address] [place] [address] 01664 Nurse Practitioner - Women's Health 12/14/16 Doris Ricci MD [facility] [address] [place] [address] Physician Internal Medicine 07/11/20 Yudy Pompa MD [address] [place] [address] 53146 Assigned Cancer Care Provider 08/21/20 Mary Carmen Rodriguez MD [address] [address] Dermatology 11/09/20 Herber Lopez MD [address] [place] [address] 7[address] Dermapathology 11/09/20 Gloria Elizalde MD [address] [place] [address] Resident 12/24/22 Mamadou Bowie MD [address] [place] [address] 00414 Assigned PCP 03/23/23 Makenzie Romano MD [address] [place] [address] naturopathic doctor & Neurology - Child & Adolescent Psychiatry 11/08/23 Shani Stephenson MD [address] [place] [address] 85384 Resident Psychiatry 11/08/23 Ita Newton Specialty Household Appliances Salesperson 06/04/24 Kenya Jennings MD [address] [place] [address] 6[address]61 Plastic Surgery 06/04/24 Herber Lopez MD [address] [place] [address] 24456 Assigned Dermatology Provider 07/26/24 Сергей Dumont [facility] Economic Consultant 08/13/24 Kenya Jennings MD [address] [place] [address] 103845 Assigned Surgical Provider 08/26/24 Luis Dudley MD [address] [facility] [place] [place] 568084 Assigned Behavioral Health Provider 09/25/24 10/25/24 Carmen Cole PA-C [address] [facility] 103 [place], [place] 132645 Assigned Sleep Provider 09/25/24 documented as of this encounter
--- OUTSIDE RECORDS SUMMARY | 2024-10-28 19:19 | XMS_ITS | Encounter Summary ---
Author Organization [facility] Address [address] [place] [address] 19940 Care Team Providers Care Gift Shop Manager Name Role Phone Cindy Ruiz Unavailable [phone] Trevor Espino MD Unavailable [phone] Jaci Whitlock APRN SOLE ASSESSOR Unavailable + Doris Ricci MD Unavailable Yudy Pompa MD Unavailable [phone] Mary Carmen Rodriguez MD Unavailable + Herber Lopez MD Unavailable +[phone] Gloria Elizalde MD Unavailable [phone] Mamadou Bowie MD Primary Care Provider [phone] Mamadou Bowie MD Unavailable Makenzie Romano MD Unavailable [phone] Shani Stephenson MD Unavailable [phone] Ita Newton Unavailable Unavailable Kenya Jennings MD Unavailable [phone] Herber Lopez MD Unavailable +[phone] Сергей Dumont [facility] Unavailable Unavailable Kenya Jennings MD Unavailable [phone] Luis Dudley MD Unavailable [phone] Carmen Cole PA-C Unavailable [phone] Encounter Details Date Type Department Care Team (Latest Contact Info) Description 09/25/2024 Travel Social History Tobacco Use Types Packs/Day [...] Answer Date Recorded PHQ-2 Score 2 09/25/2024 [facility] - Occupational Stress Questionnaire Answer Date [...] CDT Legal Sex Female 3:58 AM COMMERCIAL PROJECT MANAGER Gender Identity other 11/14/2020 10:33 PM CDT Sexual Orientation Lesbian 06/22/2019 4: 20 AM COMMERCIAL PROJECT MANAGER documented as of this encounter Plan of Treatment Upcoming Encounters Date Type Department Care Team (Latest Contact Info) Description 10/29/2024 11:00 AM CDT Virtual Visit [facility] [address] [phone] 11/23/2024 1:30 PM CDT Office Visit [facility] Mental Health & Addiction [place] [phone] [address] [place] [address] [phone] Melanie Boykin MD [address] [place] [address] Gloria Elizalde MD 420 [place], [place] 635655 12/03/2024 3:00 PM CDT Office Visit [facility] Psychiatry [facility] [address] [place] [phone] Jesse Arvizu MD [address] [place] [address] 12/15/2024 11:40 AM CDT Ancillary Procedure [facility] Imaging Center CT Clinic [address] [place] [phone] Yudy Pompa MD [address] [place] [address] 12/22/2024 11:40 AM CDT Oncology Visit [facility] [address] [place] [address] [phone] Yudy Pompa MD [address] [place] [address] 837615 02/22/2025 12:30 PM CDT Office Visit [facility] Plastic and Reconstructive Surgery Clinic [address] [phone] Kenya Jennings MD [address] [place] [address]346 03/12/2025 1:00 PM COMMERCIAL PROJECT MANAGER Office Visit [facility] Internal Medicine [address]th [place] [phone] Mamadou Bowie MD [address] [place] [address] 395[address] 03/23/2025 8:00 AM COMMERCIAL PROJECT MANAGER Hospital Encounter [facility] PeriOp Services 2450 [place] [phone] Kenya Jennings MD [address] [place] [address] 03/23/2025 8:00 AM COMMERCIAL PROJECT MANAGER - 03/23/2025 12:05 PM COMMERCIAL PROJECT MANAGER Surgery [facility] PeriOp Services [address] [place] [phone] Kenya Jennings MD [address] [place] [address] 79[address] MASTECTOMY, BILATERAL, SIMPLE, NO nipple grafts. OnQ 03/30/2025 10:00 AM COMMERCIAL PROJECT MANAGER Office Visit [facility] Plastic and Reconstructive Surgery Clinic [address] [phone] Lynn Parks APRN [address] 873175 04/16/2025 1:00 PM COMMERCIAL PROJECT MANAGER Office Visit [facility] Internal Medicine [address] [phone] Mamadou Bowie MD [address] [place] [address] 407265 05/03/2025 4:00 PM COMMERCIAL PROJECT MANAGER Office Visit [facility] Plastic and Reconstructive Surgery Clinic [address] [phone] Kenya Jennings MD [address] [place] [address] 626535 08/17/2025 12:15 PM CDT Office Visit [facility] Dermatology Clinic [address] [place] [phone] Herber Lopez MD [address] [place] [address] 559685 Scheduled Procedures Name Priority Associated Diagnoses Date/Ti me MASTECTOMY, BILATERAL, FOR GENDER AFFIRMATION Gender dysphoria in adult 03/23/2025 8:00 AM COMMERCIAL PROJECT MANAGER documented as of this encounter Goals [...] documented as of this encounter Care Teams Gift Shop Manager Relationship Specialty Start Date End Date Mamadou Bowie MD [address] [place] [address] 40963 PCP - General 03/18/23 Cindy Ruiz [facility] [address] [place] [address] Resident Internal Medicine 12/07/14 Trevor Espino MD [address] [place] [address] 88861 Urology 05/16/16 Jaci Whitlock APRN SOLE ASSESSOR [address] [place] [address] 75985 Nurse Practitioner - Women's Health 12/14/16 Doris Ricci MD [facility] 1999 [place] [address] Physician Internal Medicine 07/11/20 Yudy Pompa MD [address] [place] [address] 90948 Assigned Cancer Care Provider 08/21/20 Mary Carmen Rodriguez MD [address] [address] Dermatology 11/09/20 Herber Lopez MD [address] [place] [address] 04697 Dermapathology 11/09/20 Gloria Elizalde MD [address] [place] [address] 67588 Resident 12/24/22 Mamadou Bowie MD [address] [place] [address] 33684 Assigned PCP 03/23/23 Makenzie Romano MD [address] [place] [address] 65183 microwave technician & Neurology - Child & Adolescent Psychiatry 11/08/23 Shani Stephenson MD [address] [place] [address] 62568 Resident Psychiatry 11/08/23 Ita Newton Specialty Instructor Robotics 06/04/24 Kenya Jennings MD [address] [place] [address] 96418 Plastic Surgery 06/04/24 Herber Lopez MD [address] [place] [address] 74446 Assigned Dermatology Provider 07/26/24 Сергей Dumont [facility] Contract Negotiator 08/13/24 Kenya Jennings MD [address] [place] [address] 907615 Assigned Surgical Provider 08/26/24 Luis Dudley MD [address] [facility] [place], [place] 425534 Assigned Behavioral Health Provider 09/25/24 10/25/24 Carmen Cole PA-C [address] [facility] 103 [place], [place] 380615 Assigned Sleep Provider 09/25/24 documented as of this encounter
--- OUTSIDE RECORDS SUMMARY | 2024-10-28 19:19 | XMS_ITS | Encounter Summary ---
Author Organization [facility] Address [address] [place] [address] 93555 Care Team Providers Care Licensing Director Name Role Phone Cindy Ruiz Unavailable [phone] Trevor Espino MD Unavailable [phone] Jaci Whitlock APRN ROUSTABOUT PUSHER Unavailable + Doris Ricci MD Unavailable Yudy Pompa MD Unavailable [phone] Mary Carmen Rodriguez MD Unavailable + Herber Lopez MD Unavailable +[phone] Gloria Elizalde MD Unavailable [phone] Mamadou Bowie MD Primary Care Provider [phone] Mamadou Bowie MD Unavailable Makenzie Romano MD Unavailable [phone] Shani Stephenson MD Unavailable [phone] Ita Newton Unavailable Unavailable Kenya Jennings MD Unavailable [phone] Herber Lopez MD Unavailable +[phone] Сергей Dumont [facility] Unavailable Unavailable Kenya Jennings MD Unavailable [phone] Luis Dudley MD Unavailable [phone] Carmen Cole PA-C Unavailable +[phone] Encounter Details Date Type Department Care Team (Latest Contact Info) Description 10/09/2024 Travel Social History Tobacco Use Types Packs/Day [...] Answer Date Recorded PHQ-2 Score 3 10/09/2024 [facility] - Occupational Stress Questionnaire Answer Date [...] building, in an overnight fci, or couch-surfing.) Yes 04/03/2024 Are you worried [...] PM CDT Legal Sex Female 3:58 AM RING MAKING MACHINE OPERATOR Gender Identity other 11/14/2020 10:33 PM CDT Sexual Orientation Lesbian 06/22/2019 4: 20 AM RING MAKING MACHINE OPERATOR documented as of this encounter Plan of Treatment Upcoming Encounters Date Type Department Care Team (Latest Contact Info) Description 10/29/2024 11:00 AM CDT Virtual Visit Physicians Psychiat[facility] [address] [address] 11/23/2024 1:30 PM CDT Office Visit [facility] Mental Health & Addiction [place] [id number] [address] [place] [address] [phone] Melanie Boykin MD [address] [place] [address] 55454 Gloria Elizalde MD 420 [place], [place] 788955 12/03/2024 3:00 PM CDT Office Visit [facility] Psychiatry [facility] [address] [place] [phone] Jesse Arvizu MD [address] [place] [address] 12/15/2024 11:40 AM CDT Ancillary Procedure [facility] Imaging Center [facility] Clinic [address] 1[address] [place] [phone] Yudy Pompa MD [address] [place] [address] 8[address] 12/22/2024 11:40 AM CDT Oncology Visit [facility] [address] [place] [address] [phone] Yudy Pompa MD [address] [place] [address] 752955 02/22/2025 12:30 PM CDT Office Visit [facility] Plastic [facility] Reconstructive Surgery Clinic [address] [phone] Kenya Jennings MD [address] [place] [address] 03/12/2025 1:00 PM RING MAKING MACHINE OPERATOR Office Visit [facility] Internal Medicine [address] [place] [phone] Mamadou Bowie MD [address] [place] [address] 22[address] 03/23/2025 8:00 AM RING MAKING MACHINE OPERATOR Hospital Encounter [facility] PeriOp Services 2450 [place] [phone] Kenya Jennings MD [address] [place] [address] 03/23/2025 8:00 AM RING MAKING MACHINE OPERATOR - 03/23/2025 12:05 PM RING MAKING MACHINE OPERATOR Surgery [facility] [address] [place] [phone] Kenya Jennings MD [address] [place] [address] 26702 MASTECTOMY, BILATERAL, SIMPLE, NO nipple grafts. OnQ 03/30/2025 10:00 AM RING MAKING MACHINE OPERATOR Office Visit [facility] [address] [phone] Lynn Parks APRN [address] 383825 04/16/2025 1:00 PM RING MAKING MACHINE OPERATOR Office Visit [facility] Internal Medicine [address] [phone] Mamadou Bowie MD [address] [place] [address] 909235 05/03/2025 4:00 PM RING MAKING MACHINE OPERATOR Office Visit [facility] [address] [phone] Kenya Jennings MD [address] [place] [address] 324115 08/17/2025 12:15 PM CDT Office Visit [facility] Dermatology Clinic [address] [place] [phone] Herber Lopez MD [address] [place] [address] 008655 Scheduled Procedures Name Priority Associated Diagnoses Date/Ti me MASTECTOMY, BILATERAL, FOR GENDER AFFIRMATION Gender dysphoria in adult 03/23/2025 8:00 AM RING MAKING MACHINE OPERATOR documented as of this encounter [...] documented as of this encounter Care Teams Licensing Director Relationship Specialty Start Date End Date Mamadou Bowie MD [address] [place] [address] 07684 PCP - General 03/18/23 Cindy Ruiz [facility] [address] [place] [address] Resident Internal Medicine 12/07/14 Trevor Espino MD [address] [place] [address] 34062 Urology 05/16/16 Jaci Whitlock APRN ROUSTABOUT PUSHER [address] [place] [address] 63413 Nurse Practitioner - Women's Health 12/14/16 Doris Ricci MD [facility] [address] [place] [address] Physician Internal Medicine 07/11/20 Yudy Pompa MD [address] [place] [address] 42056 Assigned Cancer Care Provider 08/21/20 Mary Carmen Rodriguez MD [address] [address] Dermatology 11/09/20 Herber Lopez MD [address] [place] [address] 6[address] Dermapathology 11/09/20 Gloria Elizalde MD [address] [place] [address] 68907 Resident 12/24/22 Mamadou Bowie MD [address] [place] [address] 11702 Assigned PCP 03/23/23 Makenzie Romano MD [address] [place] [address] 65595 correction officer reformatory & Neurology - Child & Adolescent Psychiatry 11/08/23 Shani Stephenson MD [address] [place] [address] 60261 Resident Psychiatry 11/08/23 Ita Newton Specialty Washery Boss 06/04/24 Kenya Jennings MD [address] [place] [address] 46901 Plastic Surgery 06/04/24 Herber Lopez MD [address] [place] [address] 72170 Assigned Dermatology Provider 07/26/24 Сергей Dumont [facility] Tire And Lube Technician 08/13/24 Kenya Jennings MD [address] [place] [address] [phone] Assigned Surgical Provider 08/26/24 Luis Dudley MD [address] [facility] [place], [place] 867424 Assigned Behavioral Health Provider 09/25/24 10/25/24 Carmen Cole PA-C [address] [facility] 103 [place], [place] 719935 Assigned Sleep Provider 09/25/24 documented as of this encounter
--- OUTSIDE RECORDS SUMMARY | 2024-10-28 19:19 | XMS_ITS | Encounter Summary ---
Author Organization [facility] Address [address] [place] [address] 97139 Care Team Providers Care Recruiting Associate Name Role Phone Cindy Ruiz Unavailable [phone] Trevor Espino MD Unavailable [phone] Jaci Whitlock APRN SACK SEWER MACHINE Unavailable + Doris Ricci MD Unavailable [phone] Yudy Pompa MD Unavailable [phone] Mary Carmen Rodriguez MD Unavailable + Herber Lopez MD Unavailable [phone] Gloria Elizalde MD Unavailable [phone] Mamadou Bowie MD Primary Care Provider [phone] Mamadou Bowie MD Unavailable Makenzie Romano MD Unavailable [phone] Shani Stephenson MD Unavailable [phone] Ita Newton Unavailable Unavailable Kenya Jennings MD Unavailable [phone] Herber Lopez MD Unavailable +[phone] Сергей Dumont [facility] Unavailable Unavailable Kenya Jennings MD Unavailable [phone] Luis Dudley MD Unavailable [phone] Carmen Cole PA-C Unavailable [phone] Encounter Details Date Type Department Care Team (Latest Contact Info) Description 10/01/2024 Travel Social History Tobacco Use Types Packs/Day [...] relatives? Three times a week 04/02/2024 Attends Rastafari Services Not on file 04/02 Active Member of Clubs or Organizations Not on f ile 04/02/2024 Attends Club or Organization Meetings Not on jd e 04/02/2024 Marital Status Not on file 04/02/2024 PHQ-2 Answer Date Recorded PHQ-2 Score 2 10/02/2024 [facility] - Occupational [...] PM CDT Legal Sex Female 3:58 AM FLIGHT INFORMATION EXPEDITER Gender Identity other 11/14/2020 10:33 PM CDT Sexual Orientation Lesbian 06/22/2019 4: 20 AM FLIGHT INFORMATION EXPEDITER documented as of this encounter Plan of Treatment Upcoming Encounters Date Type Department Care Team (Latest Contact Info) Description 10/29/2024 11:00 AM CDT Virtual Visit Physicians Psychiatry [facility] [address] [phone] 11/23/2024 1:30 PM CDT Office Visit [facility] Mental Health & Addiction [place] [phone] [address] [place] [address] [phone] Melanie Boykin MD [address] [place] [address] 55454 Gloria Elizalde MD 420 [place], [place] 266125 12/03/2024 3:00 PM CDT Office Visit [facility] Psychiatry [facility] [address] [place] [phone] Jesse Arvizu MD [address] [place] [address] 12/15/2024 11:40 AM CDT Ancillary Procedure [facility] Imaging Center CT Clinic [address] [place] [phone] Yudy Pompa MD [address] [place] [address] 04458 12/22/2024 11:40 AM CDT Oncology Visit [facility] [address] [place] [address] [phone] Yudy Pompa MD [address] [place] [address] 125905 02/22/2025 12:30 PM CDT Office Visit [facility] Plastic [facility] Re[facility] Surgery Clinic [address] [phone] Kenya Jennings MD [address] [place] [address] 19707 03/12/2025 1:00 PM FLIGHT INFORMATION EXPEDITER Office Visit [facility] Internal Medicine [address] [place] [phone] Mamadou Bowie MD [address] [place] [address] 17664 03/23/2025 8:00 AM FLIGHT INFORMATION EXPEDITER Hospital Encounter [facility] PeriOp Services 2450 [place] [phone] Kenya Jennings MD [address] [place] [address] 21367 03/23/2025 8:00 AM FLIGHT INFORMATION EXPEDITER - 03/23/2025 12:05 PM FLIGHT INFORMATION EXPEDITER Surgery [facility] [address] [place] [phone] Kenya Jennings MD [address] [place] [address] 43851 MASTECTOMY, BILATERAL, SIMPLE, NO nipple grafts. OnQ 03/30/2025 10:00 AM FLIGHT INFORMATION EXPEDITER Office Visit [facility] Clinic [address] [phone] Lynn Parks APRN [address] 605135 04/16/2025 1:00 PM FLIGHT INFORMATION EXPEDITER Office Visit [facility] Internal Medicine [address] [phone] Mamadou Bowie MD [address] [place] [address] 185115 05/03/2025 4:00 PM FLIGHT INFORMATION EXPEDITER Office Visit [facility] [address] [phone] Kenya Jennings MD [address] [place] [address] 755235 08/17/2025 12:15 PM CDT Office Visit [facility] Dermatology Clinic [address] [place] [phone] Herber Lopez MD [address] [place] [address] [phone] Scheduled Procedures Name Priority Associated Diagnoses Date/Ti me MASTECTOMY, BILATERAL, FOR GENDER AFFIRMATION Gender dysphoria in adult 03/23/2025 8:00 AM FLIGHT INFORMATION EXPEDITER documented as of this encounter Goals Goal [...] Noted Time PHQ-9 Depression Total Score: 8 10/29/19 25 10:21 AM CDT documented as of this encounter Care Teams Recruiting Associate Relationship Specialty Start Date End Date Mamadou Bowie MD [address] [place] [address] 11130 PCP - General 03/18/23 Cindy Ruiz [facility] [address] [place] [address] Resident Internal Medicine 12/07/14 Trevor Espino MD [address] [place] [address] 86547 Urology 05/16/16 Jaci Whitlock APRN SACK SEWER MACHINE [address] [place] [address] 79176 Nurse Practitioner - Women's Health 12/14/16 Doris Ricci MD [facility] [address] [place] [address] Physician Internal Medicine 07/11/20 Yudy Pompa MD [address] [place] [address] 25894 Assigned Cancer Care Provider 08/21/20 Mary Carmen Rodriguez MD [address] [address] Dermatology 11/09/20 Herber Lopez MD [address] [place] [address] 34682 Dermapathology 11/09/20 Gloria Elizalde MD [address] [place] [address] 74617 Resident 12/24/22 Mamadou Bowie MD [address] [place] [address] 23561 Assigned PCP 03/23/23 Makenzie Romano MD [address] [place] [address] 11160 horseradish maker & Neurology - Child & Adolescent Psychiatry 11/08/23 Shani Stephenson MD [address] [place] [address] 02349 Resident Psychiatry 11/08/23 Ita Newton Specialty Director Of Food And Nutrition Services 06/04/24 Kenya Jennings MD [address] [place] [address] 71679 Plastic Surgery 06/04/24 Herber Lopez MD [address] [place] [address] 26304 Assigned Dermatology Provider 07/26/24 Сергей Dumont [facility] Die Cast Technician 08/13/24 Kenya Jennings MD [address] [place] [address] 126505 Assigned Surgical Provider 08/26/24 Luis Dudley MD [address] [facility] [place], [place] 086054 Assigned Behavioral Health Provider 09/25/24 10/25/24 Carmen Cole PA-C [address] [facility] 103 [place], [place] 534115 Assigned Sleep Provider 09/25/24 documented as of this encounter
--- OUTSIDE RECORDS SUMMARY | 2024-10-28 19:19 | XMS_ITS | Encounter Summary ---
Author Organization [facility] Address [address] [place] [address] 67768 Care Team Providers Care Homicide Squad Captain Name Role Phone Cindy Ruiz Unavailable [phone] Trevor Espino MD Unavailable [phone] Jaci Whitlock APRN PRINTER MACHINE Unavailable + Doris Ricci MD Unavailable Yudy Pompa MD Unavailable [phone] Mary Carmen Rodriguez MD Unavailable + Herber Lopez MD Unavailable [phone] Gloria Elizalde MD Unavailable [phone] Mamadou Bowie MD Primary Care Provider [phone] Mamadou Bowie MD Unavailable Makenzie Romano MD Unavailable [phone] Shani Stephenson MD Unavailable [phone] Ita Newton Unavailable Unavailable Kenya Jennings MD Unavailable [phone] Herber Lopez MD Unavailable +[phone] Сергей Dumont [facility] Unavailable Unavailable Kenya Jennings MD Unavailable [phone] Luis Dudley MD Unavailable [phone] Carmen Cole PA-C Unavailable [phone] Encounter Details Date Type Department Care Team (Latest Contact Info) Description 10/06/2024 Travel Social History Tobacco Use Types Packs/Day [...] relatives? Three times a week 04/02/2024 Attends Taoist Services Not on file 04/02 Active Member of Clubs or Organizations Not on f ile 04/02/2024 Attends Club or Organization Meetings Not on jd e 04/02/2024 Marital Status Not on file 04/02/2024 PHQ-2 Answer Date Recorded PHQ-2 Score 4 10/07/2024 [facility] - [...] in an abandoned building, in an overnight retirement, or couch-surfing.) Yes 04/03/2024 Are you worried [...] PM CDT Legal Sex Female 3:58 AM PIPE CHIPPER Gender Identity other 11/14/2020 10:33 PM CDT Sexual Orientation Lesbian 06/22/2019 4: 20 AM PIPE CHIPPER documented as of this encounter Plan of Treatment Upcoming Encounters Date Type Department Care Team (Latest Contact Info) Description 10/29/2024 11:00 AM CDT Virtual Visit Physicians Psychiatry [facility] [address] [address] 11/23/2024 1:30 PM CDT Office Visit [facility] Mental Health & Addiction [place] [phone] [address] [place] [address] [phone] Melanie Boykin MD [address] [place] [address] 55454 Gloria Elizalde MD 420 [place], [place] 457695 12/03/2024 3:00 PM CDT Office Visit [facility] Psychiatry [facility] [address] [place] [phone] Jesse Arvizu MD [address] [place] [address] 12/15/2024 11:40 AM CDT Ancillary Procedure [facility] Imaging Center CT Clinic [address] [place] [phone] Yudy Pompa MD [address] [place] [address] 12/22/2024 11:40 AM CDT Oncology Visit [facility] [address] [place] [address] [phone] Yudy Pompa MD [address] [place] [address] 336055 02/22/2025 12:30 PM CDT Office Visit [facility] Plastic and Reconstructive Surgery Clinic [address] [phone] Kenya Jennings MD [address] [place] [address] 72277 03/12/2025 1:00 PM PIPE CHIPPER Office Visit [facility] Internal Medicine [address] [place] [phone] Mamadou Bowie MD [address] [place] [address]65[address] 03/23/2025 8:00 AM PIPE CHIPPER Hospital Encounter [facility] 2450 [place] [phone] Kenya Jennings MD [address] [place] [address] 66865 03/23/2025 8:00 AM PIPE CHIPPER - 03/23/2025 12:05 PM PIPE CHIPPER Surgery [facility] [address] [place] [phone] Kenya Jennings MD [address] [place] [address] 18228 MASTECTOMY, BILATERAL, SIMPLE, NO nipple grafts. OnQ 03/30/2025 10:00 AM PIPE CHIPPER Office Visit [facility] Plastic and Reconstructive Surgery Clinic [address] [phone] Lynn Parks APRN [address] 350845 04/16/2025 1:00 PM PIPE CHIPPER Office Visit [facility] Internal Medicine [address] [phone] Mamadou Bowie MD [address] [place] [address] 359115 05/03/2025 4:00 PM PIPE CHIPPER Office Visit [facility] Plastic and Reconstructive Surgery Clinic [address] [phone] Kenya Jennings MD [address] [place] [address] 011045 08/17/2025 12:15 PM CDT Office Visit [facility] Dermatology Clinic [address] [place] [phone] Herber Lopez MD [address] [place] [address] 942105 Scheduled Procedures Name Priority Associated Diagnoses Date/Ti me MASTECTOMY, BILATERAL, FOR GENDER AFFIRMATION Gender dysphoria in adult 03/23/2025 8:00 AM PIPE CHIPPER documented as of this encounter Goals Goal [...] documented as of this encounter Care Teams Homicide Squad Captain Relationship Specialty Start Date End Date Mamadou Bowie MD [address] [place] [address] 04362 PCP - General 03/18/23 Cindy Ruiz [facility] [address] [place] [address] Resident Internal Medicine 12/07/14 Trevor Espino MD [address] [place] [address] 59165 Urology 05/16/16 Jaci Whitlock APRN PRINTER MACHINE [address] [place] [address] 12495 Nurse Practitioner - Women's Health 12/14/16 Doris Ricci MD [facility] [address] [place] [address] Physician Internal Medicine 07/11/20 Yudy Pompa MD [address] [place] [address] 82686 Assigned Cancer Care Provider 08/21/20 Mary Carmen Rodriguez MD [address] [address] Dermatology 11/09/20 Herber Lopez MD [address] [place] [address] 73713 Dermapathology 11/09/20 Gloria Elizalde MD [address] [place] [address] 00184 Resident 12/24/22 Mamadou Bowie MD [address] [place] [address] 54021 Assigned PCP 03/23/23 Makenzie Romano MD [address] [place] [address] 62206 manager baby & Neurology - Child & Adolescent Psychiatry 11/08/23 Shani Stephesnon MD [address] [place] [address] 67408 Resident Psychiatry 11/08/23 Ita Newton Specialty Pet Ambassador 06/04/24 Kenya Jennings MD [address] [place] [address] 24944 Plastic Surgery 06/04/24 Herber Lopez MD [address] [place] [address] 82281 Assigned Dermatology Provider 07/26/24 Сергей Dumont [facility] Window Display Designer 08/13/24 Kenya Jennings MD [address] [place] [address] 245465 Assigned Surgical Provider 08/26/24 Luis Dudley MD [address] [facility] [place], [place] 260[address] Assigned Behavioral Health Provider 09/25/24 10/25/24 Carmen Cole PA-C [address] [facility] 103 [place], [place] 031885 Assigned Sleep Provider 09/25/24 documented as of this encounter
--- OUTSIDE RECORDS SUMMARY | 2024-10-28 19:19 | XMS_ITS | Encounter Summary ---
Author Organization [facility] Address [address] [place] [address] Care Team Providers Care Reinforcing Iron Worker Helper Name Role Phone Cindy Ruiz Unavailable [phone] Trevor Espino MD Unavailable [phone] Jaci Whitlock APRN ESCORT CAR DRIVER Unavailable + Doris Ricci MD Unavailable Yudy Pompa MD Unavailable [phone] Mary Carmen Rodriguez MD Unavailable + Herber Lopez MD Unavailable +[phone] Gloria Elizalde MD Unavailable [phone] Mamadou Bowie MD Primary Care Provider [phone] Mamadou Bowie MD Unavailable Makenzie Romano MD Unavailable [phone] Shani Stephenson MD Unavailable [phone] Ita Newton Unavailable Unavailable Kenya Jennings MD Unavailable +[phone] Herber Lopez MD Unavailable +[phone] Сергей Dumont [facility] Unavailable Unavailable Kenya Jennings MD Unavailable +[phone] Luis Dudley MD Unavailable +[phone] Carmen Cole PA-C Unavailable [phone] Encounter Details Date Type Department Care Team (Late st Contact Info) Description 09/29/2024 MyC Medical Advice [facility] [address] [place] [address] Racheal Ng MD 9356 [facility] [address] [place] [address] Severe recurrent major depression without psychotic features [...] relatives? Three times a week 04/02/2024 Attends Religion Services Not on file 04/02 Active Member of Clubs or Organizations Not on f ile 04/02/2024 Attends Club or Organization Meetings Not on jd e 04/02/2024 Marital Status Not on file 04/02/2024 PHQ-2 Answer Date Recorded PHQ-2 Score 3 10/01/2024 [facility] [place] [facility] Occupat ional Health - Occupational Stress [...] PM CDT Legal Sex Female 3:58 AM FARM MECHANIC APPRENTICE Gender Identity other 11/14/2020 10:33 PM CDT Sexual Orientation Lesbian 06/22/2019 4: 20 AM FARM MECHANIC APPRENTICE documented as of this encounter Miscellaneous Notes * Telephone Encounter - Jessica Perez RN - 09/30/2024 10:54 AM CDT Prescription for parnate sent to patients preferred pharmacy, per patient request in Duable Chinese message. documented in this encounter Plan of Treatment Upcoming Encounters Date Type Department Care Team (Latest Contact Info) Description 10/29/2024 11:00 AM CDT [facility] Visit [facility] Psychiatry [address] [phone] 11/23/2024 1:30 PM CDT Office Visit [facility] Mental Health & Addiction [address] [phone] Melanie Boykin MD 9990 [place], [place] 239964 Gloria Elizalde MD [address] [place] [address] 396675 12/03/2024 3:00 PM CDT [facility] [address] [facility] [address] [place] [phone] Jesse Arvizu MD [address] [place], [place] 368536 12/15/2024 11:40 AM CDT [address] Procedure [facility] Imaging Center [facility] Clinic [address] 1st [place] [phone] Yudy Pompa MD [address] [place] [address] 638915 12/22/2024 11:40 AM CDT Oncology Visit [facility] [address] [place] [address] [phone] Yudy Pompa MD [address] [place] [address] 02/22/2025 12:30 PM CDT Office Visit [facility] Plastic and Reconstructive Surgery Clinic [address] 4th [place] [phone] Kenya Jennings MD 420 [facility] 195 [place], [place] 755955 03/12/2025 1:00 PM FARM MECHANIC APPRENTICE Office Visit [facility] Internal Medicine [address] [phone] Mamadou Bowie MD [address] [place] [address] 03/23/2025 8:00 AM FARM MECHANIC APPRENTICE Hospital Encounter [facility] PeriOp Services [address] [place] [address] [phone] Kenya Jennings MD [address] [place] [address] 969605 03/23/2025 8:00 AM FARM MECHANIC APPRENTICE - 03/23/2025 12:05 PM FARM MECHANIC APPRENTICE Surgery [facility] [address] [place] [phone] Kenya Jennings MD [address] [place] [address] 26985 MASTECTOMY, BILATERAL, SIMPLE, NO nipple grafts. OnQ 03/30/2025 10:00 AM FARM MECHANIC APPRENTICE Office Visit [facility] Plastic and Reconstructive Surgery Clinic [address] [phone] Lynn Parks APRN [address] [address] 04/16/2025 1:00 PM FARM MECHANIC APPRENTICE Office Visit [facility] Internal Medicine [address] [phone] Mamadou Bowie MD [address] [place] [address] 449[address] 05/03/2025 4:00 PM FARM MECHANIC APPRENTICE Office Visit [facility] Clinic [address] [place] [phone] Kenya Jennings MD 420 [facility] 195 [place], [place] 393015 08/17/2025 12:15 PM CDT Office Visit [facility] Dermatology Clinic [place] 909 [facility] 3rd [place] [address] Herber Lopez MD 420 [facility] 98 [place], [place] 977435 Scheduled Procedures Name Priority Associated Diagnoses Date/Ti me MASTECTOMY, BILATERAL, FOR GENDER AFFIRMATION Gender dysphoria in adult 03/23/2025 8:00 AM FARM MECHANIC APPRENTICE documented as of this encounter Goals Goal [...] documented as of this encounter Care Teams Reinforcing Iron Worker Helper Relationship Specialty Start Date End Date Mamadou Bowie MD [address] [place] [address] 39040 PCP - General 03/18/23 Cindy Ruiz [facility] [address] [place] [address] Resident Internal Medicine 12/07/14 Trevor Espino MD [address] [place] [address] 77584 Urology 05/16/16 Jaci Whitlock APRN ESCORT CAR DRIVER 420 [facility] 395 [place], [place] 510445 Nurse Practitioner - Women's Health 12/14/16 Doris Ricci MD [facility] 2000 [place] [address] Physician Internal Medicine 07/11/20 Yudy Pompa MD 909 [place], [place] [phone] Assigned Cancer Care Provider 08/21/20 Mary Carmen Rodriguez MD 420 [facility] 98 [place], [place] 810335 Dermatology 11/09/20 Herber Lopez MD 420 [facility] 98 [place], [place] 897845 Dermapathology 11/09/20 Gloria Elizalde MD 420 [place], [place] 709815 Resident 12/24/22 Mamadou Bowie MD [address] [place] [address] [phone] Assigned PCP 03/23/23 Makenzie Romano MD [address] [place] [address] [phone] mold stripper & Neurology - Child & Adolescent Psychiatry 11/08/23 Shani Stephenson MD 420 [place], [place] 766895 Resident Psychiatry 11/08/23 Ita Newton Specialty Secondary Set Up Man 06/04/24 Kenya Jennings MD 420 [facility] 195 [place], [place] 282165 Plastic Surgery 06/04/24 Herber Lopez MD 420 [facility] 98 [place], [place] 780175 Assigned Dermatology Provider 07/26/24 Сергей Dumont [facility] Dancing Master 08/13/24 Kenya Jennings MD 420 [facility] 195 [place], [place] 866035 Assigned Surgical Provider 08/26/24 Luis Dudley MD 240 [place], [place] 149864 Assigned Behavioral Health Provider 09/25/24 10/25/24 Carmen Cole PA-C [address] 395105 Assigned Sleep Provider 09/25/24 documented as of this encounter
--- OUTSIDE RECORDS SUMMARY | 2024-10-28 19:20 | XMS_ITS | Encounter Summary ---
Author Organization [facility] Address [address] [place] [address] 0[address] Care Team Providers Care Equipment Mechanic Specialist Name Role Phone RichielelaCindy Unavailable [phone] Kaitlin Branch MD Unavailable [phone] Trevor Espino MD Unavailable [phone] Melanie Boykin MD Unavailable [phone] Jaci Whitlock BAR POINTER VTC TECHNICIAN Unavailable + Yudy Mathews MD Primary Care Provider [phone] Yudy Mathews MD Unavailable [phone] Jaci Whitlock BAR POINTER VTC TECHNICIAN Unavailable + Juan M Smith MD, Madhuri Unavailable +[phone] Doris Ricci MD Unavailable [phone] Yudy Mathews MD Unavailable +[phone] Antonette Castro PA-C Unavailable +[phone] Yudy Pompa MD Unavailable [phone] Jessi Mcfadden MD Unavailable + [phone] Mary Carmen Rodriguez MD Unavailable + Herber Lopez MD Unavailable +[phone] Yomi Izquierdo DPM Unavailable +[phone] Torey Luna MD Primary Care Provider + [phone] Antonette Castro PA-C Unavailable +[phone] Torey Luna MD Unavailable +[phone] Herber Lopez MD Unavailable +[phone] Maurilio Carlson MD Unavailable Herber Lopez MD Unavailable +[phone] Gloria Elizalde MD Unavailable +[phone] Olena Smith [facility] Unavailable Unavailable Maurilio Carlson MD Unavailable Mamadou Bowie MD Primary Care Provider [phone] AzebMamadou menchaca MD Unavailable Herber Lopez MD Unavailable +[phone] Makenzie Romano MD Unavailable [phone] Shani Stephenson MD Unavailable +[phone] Yomi Campos PhD Unavailable +[phone] Ita Newton Unavailable Unavailable Kenya Jennings MD Unavailable + [phone] Herber Lopez MD Unavailable +[phone] Сергей Dumont [facility] Unavailable Unavailable Kenya Jennings MD Unavailable + [phone] Jesse Arvizu MD Unavailable Luis Dudely MD Unavailable +[phone] Carmen Cole-C Unavailable +[phone] Racheal Ng MD Unavailable [phone] Encounter Details Date Type Department Care Team (Late st Contact Info) Description 04/08/2019 [facility] Cancer Clinic 909 [place] [address] Jaci Whitlock APRN [facility] 420 [facility] 395 [place] [address] Social History Tobacco Use Types Packs/Day Years Used Date Smoking Tobacco: Never Smokeless Tobacco: Never Alcohol Use Standard Drinks/Week Comments No 0 (1 standard drink = 0.6 oz pur e alcohol) PHQ-2 Answer Date Recorded PHQ-2 Score 0 05/13/2018 Comments No Sex and Gender Information Value Date Recorded Sex Assigned at Female 11/14/2020 10:33 PM CDT Legal Sex Female 3:58 AM EYEGLASS CUTTER Gender Identity other 11/14/2020 10:33 PM CDT Sexual Orientation Lesbian 06/22/2019 4: 20 AM EYEGLASS CUTTER documented as of this encounter Plan of Treatment Upcoming Encounters Date Type Department Care Team (Latest Contact Info) Description 10/29/2024 11:00 AM CDT Virtual Visit [facility] [address] [place] [address] [phone] 11/23/2024 1:30 PM CDT Office Visit [facility] Mental Health & Addiction [address] [phone] Melanie Boykin MD [address] [place] [address] [phone] Gloria Elizalde MD [address] [place] [address] 599265 12/03/2024 3:00 PM CDT Office Visit [facility] [address] [place] [phone] Jesse Arvizu MD [address] [place] [address] 167016 12/15/2024 11:40 AM CDT Ancillary Procedure [facility] Imaging [address] [phone] Yudy Pompa MD [address] [place] [address] 988805 12/22/2024 11:40 AM CDT Oncology Visit [facility] Cancer Clinic [address] [place] [address] [phone] Yudy Pompa MD [address] [place] [address] 860[address] 02/22/2025 12:30 PM CDT Office Visit [facility] Plastic and Reconstructive Surgery Clinic [address] [phone] Kenya Jennings MD [address] [place] [address] 388265 03/12/2025 1:00 PM EYEGLASS CUTTER Office Visit [facility] Clinic Internal Medicine [address] [phone] Mamadou Bowie MD [address] [place] [address] 03/23/2025 8:00 AM EYEGLASS CUTTER Hospital Encounter [facility] PeriOp Services [address] [place] [address] [phone] Kenya Jennings MD [address] [place] [address] 886495 03/23/2025 8:00 AM EYEGLASS CUTTER - 03/23/2025 12:05 PM EYEGLASS CUTTER Surgery [facility] PeriOp Services [address] [place] [address] [phone] Kenya Jennings MD [address] [place] [address] 50238 MASTECTOMY, BILATERAL, SIMPLE, NO nipple grafts. OnQ 03/30/2025 10:00 AM EYEGLASS CUTTER Office Visit [facility] Plastic and Reconstructive Surgery Clinic [address]th [place] [phone] Lynn Parks APRN [address] 635155 04/16/2025 1:00 PM EYEGLASS CUTTER Office Visit [facility] Internal Medicine [address]th [place] [phone] Mamadou Bowie MD [address] [place] [address] [phone] 05/03/2025 4:00 PM EYEGLASS CUTTER Office Visit [facility] Plastic and Reconstructive Surgery Clinic [address] [phone] Kenya Jennings MD [address] [place] [address] 195 [place], [place] 771145 08/17/2025 12:15 PM CDT Office Visit [facility] Dermatology Clinic [address]rd [place] [phone] Herber Lopez MD [address] [place] [address] 98 [place], [place] 104915 Scheduled Procedures Name Priority Associated Diagnoses Date/Ti me MASTECTOMY, BILATERAL, FOR GENDER AFFIRMATION Gender dysphoria in adult 03/23/2025 8:00 AM EYEGLASS CUTTER documented as of this encounter Visit Diagnoses Not on filedocumented in this encounter Additional Health Concerns Assessment Noted Time PHQ-9 Depression Total Score: 5 11/11/19 19 12:38 PM CDT documented as of this encounter Care Teams Equipment Mechanic Specialist Relationship Specialty Start Date End Date Yudy Mathews MD [address] [place] [address] 395 [place] [address] PCP - General Internal Medicine 10/17/18 04/18/21 Torey Luna MD [address] [address] PCP - General Internal Medicine 04/19/21 03/17/23 Mamadou Bowie MD [address] [place] [address] 89553 PCP - General 03/18/[address] Ruiz [address] [place], [place] 655[address] Resident Internal Medicine 12/07/14 Kaitlin Branch MD [address] [place], [place] [phone] [place] [address] continuous improvement consultant 01/02/16 10/17/20 Trevor Espino MD [address] [place] [address] 630385 Urology 05/16/16 Melanie Boykin MD [address] [place] [address] 355854 continuous improvement consultant 12/10/16 11/07/23 Jaci Whitlock APRN VTC TECHNICIAN [address] [place] [address] 395 [place], [place] 653205 Nurse Practitioner - Women's Health 12/14/16 Yudy Mathews MD [facility] [place] [address] Assigned PCP 09/24/19 07/24/20 Jaci Whitlock APRN VTC TECHNICIAN 420 [facility] 395 [place] [address] Assigned OBGYN Provider 02/26/20 Shanelle Mcgowan MD [address] [place] [address] 97148 Assigned Surgical Provider 02/26/20 07/29/21 Doris Ricci MD [address] [address] Physician Internal Medicine 07/11/20 Yudy Mathews MD [facility] [address] [place], [place] 510237 Assigned PCP 07/25/20 04/22/21 Antonette Castro PA-C [address] [place] [address] 047325 Assigned Heart and Vascular Provider 07/20/20 04/08/21 Yudy Pompa MD [address] [place] [address] 909725 Assigned Cancer Care Provider 08/21/20 Jessi Mcfadden MD [facility] F282/2A [place], [place] 100784 Resident Psychiatry 11/08/20 12/23/22 Mary Carmen Rodriguez MD 420 [facility] 98 [place], [place] 899275 Dermatology 11/09/20 Herber Lopez MD [address] [place] [address] 126225 Dermapathology 11/09/20 Yomi Izquierdo DPM 11512 [facility] [address] [place], [place] 128597 Assigned Musculoskeletal Provider 12/04/20 06/08/22 Antonette Castro PA-C [address] [place] [address] [phone] Assigned Gastroenterology Provider 04/09/21 07/08/21 Torey Luna MD [address] [place] [address] 538885 Assigned PCP 04/23/21 03/22/23 Herber Lopez MD [address] [place] [address] 379185 Assigned Surgical Provider 07/30/21 11/17/21 Maurilio Carlson MD [address] [place] [address] 942385 Assigned Surgical Provider 11/18/21 11/23/22 Herber Lopez MD [address] [place] [address] 140915 Assigned Surgical Provider 11/24/22 12/21/22 Gloria Elizalde MD [address] [place] [address] 186175 Resident 12/24/22 Olena Smith, MOVIE EDITOR Specialty Yard Clerk Tools And Parts Attendant - Clinical 12/25/22 01/03/23 [place] [address] [place] [address] Assigned Surgical Provider 12/22/22 05/17/23 Mamadou Bowie MD [address] [place] [address] 56[address] Assigned PCP 03/23/23 Herber Lopez MD [address] [place] [address] 473095 Assigned Surgical Provider 05/18/23 07/25/24 Makenzie Romano MD [address] [place] [address] [phone] continuous improvement consultant & Neurology - Child & Adolescent Psychiatry 11/08/23 Shani Stephenson MD [address] [place] [address] 305615 Resident Psychiatry 11/08/23 Yomi Campos, PhD [address] [place] [address] 176984 Assigned Behavioral Health Provider 01/27/24 08/25/24 Ita Newton Specialty Yard Clerk 06/04/24 Kenya Jennings MD [address] [place] [address] 475085 Plastic Surgery 06/04/24 Herber Lopez MD [address] [place] [address] 60207 Assigned Dermatology Provider 07/26/24 Сергей Dumont [facility] Tools And Parts Attendant 08/13/24 Kenya Jennings MD 420 [facility] 195 [place] [address] Assigned Surgical Provider 08/26/24 Jesse Arvizu MD 5775 [place] [address] Assigned Behavioral Health Provider 08/26/24 09/24/24 Luis Dudley MD 240 [place], [place] 293714 Assigned Behavioral Health Provider 09/25/24 10/25/24 Carmen Cole PA-C 6363 [facility] [address] [place], [place] 320435 Assigned Sleep Provider 09/25/24 Racheal Ng MD 2450 [facility] [address] [place], [place] 790044 Assigned Behavioral Health Provider 10/26/24 documented as of this encounter
--- OUTSIDE RECORDS SUMMARY | 2024-10-28 19:20 | XMS_ITS | Encounter Summary ---
Author Organization [facility] Address [address] [place] [address] Care Team Providers Care Vp Data Name Role Phone Cindy Ruiz Unavailable [phone] Trevor Espino MD Unavailable [phone] Jaci Whitlock APRN HAND SHOE CUTTER Unavailable + Doris Ricci MD Unavailable Yudy Pompa MD Unavailable [phone] Mary Carmen Rodriguez MD Unavailable + Herber Lopez MD Unavailable +[phone] Gloria Elizalde MD Unavailable [phone] Mamadou Bowie MD Primary Care Provider [phone] Mamadou Bowie MD Unavailable Makenzie Romano MD Unavailable [phone] Shani Stephenson MD Unavailable [phone] Ita Newton Unavailable Unavailable Kenya Jennings MD Unavailable +[phone] Herber Lopez MD Unavailable +[phone] Сергей Dumont [facility] Unavailable Unavailable Kenya Jennings MD Unavailable +[phone] Lius Dudley MD Unavailable [phone] Carmen Cole PA-C Unavailable +[phone] Encounter Details Date Type Department Care Team (Latest Contact Info) Description 09/29/2024 Travel Social History Tobacco Use Types Packs/Day [...] relatives? Three times a week 04/02/2024 Attends Catholic Services Not on file 04/02 Active Member of Clubs or Organizations Not on f ile 04/02/2024 Attends Club or Organization Meetings Not on jd e 04/02/2024 Marital Status Not on file 04/02/2024 PHQ-2 Answer Date Recorded PHQ-2 Score 4 09/30/2024 [facility] - [...] PM CDT Legal Sex Female 3:58 AM CUSTOMS COMPLIANCE SPECIALIST Gender Identity other 11/14/2020 10:33 PM CDT Sexual Orientation Lesbian 06/22/2019 4: 20 AM CUSTOMS COMPLIANCE SPECIALIST documented as of this encounter Plan of Treatment Upcoming Encounters Date Type Department Care Team (Latest Contact Info) Description 10/29/2024 11:00 AM CDT Virtual Visit [facility] [address] [phone] 11/23/2024 1:30 PM CDT Office Visit [facility] & Addiction [place] [phone] [address] [place] [address] [phone] Melanie Boykin MD [address] [place] [address] Gloria Elizalde MD 420 [place], [place] 134115 12/03/2024 3:00 PM CDT Office Visit [facility] Psychiat[facility] [address] [place] [phone] Jsese Arvizu MD [address] [place] [address] 12/15/2024 11:40 AM CDT Ancillary Procedure [facility] [address] [place] [phone] Yudy Pompa MD [address] [place] [address] 12/22/2024 11:40 AM CDT Oncology Visit [facility] [address] [place] [phone] Yudy Pompa MD [address] [place] [address] 957595 02/22/2025 12:30 PM CDT Office Visit [facility] Clinic [address] [phone] Kenya Jennings MD [address] [place] [address] 03/12/2025 1:00 PM CUSTOMS COMPLIANCE SPECIALIST Office Visit [facility] Internal Medicine [address] [place] [phone] Mamadou Bowie MD [address] [place] [address] 03/23/2025 8:00 AM CUSTOMS COMPLIANCE SPECIALIST Hospital Encounter [facility] PeriOp Services [address]50 [place] [phone] Kenya Jennings MD [address] [place] [address] 03/23/2025 8:00 AM CUSTOMS COMPLIANCE SPECIALIST - 03/23/2025 12:05 PM CUSTOMS COMPLIANCE SPECIALIST Surgery [facility] [address] [place] [phone] Kenya Jennings MD [address] [place] [address] MASTECTOMY, BILATERAL, SIMPLE, NO nipple grafts. OnQ 03/30/2025 10:00 AM CUSTOMS COMPLIANCE SPECIALIST Office Visit [facility] [address] [phone] Lynn Parks APRN [address] 446525 04/16/2025 1:00 PM CUSTOMS COMPLIANCE SPECIALIST Office Visit [facility] Internal Medicine [address] [phone] Mamadou Bowie MD [address] [place] [address] 375035 05/03/2025 4:00 PM CUSTOMS COMPLIANCE SPECIALIST Office Visit [facility] [address] [phone] Kenya Jennings MD [address] [place] [address] 018755 08/17/2025 12:15 PM CDT Office Visit [facility] Dermatology Clinic [address] [place] [phone] Herber Lopez MD [address] [place] [address] [phone] Scheduled Procedures Name Priority Associated Diagnoses Date/Ti me MASTECTOMY, BILATERAL, FOR GENDER AFFIRMATION Gender dysphoria in adult 03/23/2025 8:00 AM CUSTOMS COMPLIANCE SPECIALIST documented as of this encounter Goals [...] documented as of this encounter Care Teams Vp Data Relationship Specialty Start Date End Date Mamadou Bowie MD [address] [place] [address] PCP - General 03/18/23 Cindy Ruiz [facility] [address] [place] [address] Resident Internal Medicine 12/07/14 Trevor Espino MD [address] [place] [address] Urology 05/16/16 Jaci Whitlock APRN HAND SHOE CUTTER [address] [place] [address] Nurse Practitioner - Women's Health 12/14/16 Doris Ricci MD [facility] [address] [place] [address] Physician Internal Medicine 07/11/20 Yudy Pompa MD [address] [place] [address] Assigned Cancer Care Provider 08/21/20 Mar yCarmen Rodriguez MD [address] [address] Dermatology 11/09/20 Herber Lopez MD [address] [place] [address] Dermapathology 11/09/20 Gloria Elizalde MD [address] [place] [address] Resident 12/24/22 Mamadou Bowie MD [address] [place] [address] 89694 Assigned PCP 03/23/23 Makenzie Romano MD [address] [place] [address] hospital corps[facility] & Neurology - Child & Adolescent Psychiatry 11/08/23 Shani [place] MD [address] [place] [address]78 Resident Psychiatry 11/08/23 Ita Newton Specialty Trimming Operator 06/04/24 Kenya Jennings MD [address] [place] [address] 52088 Plastic Surgery 06/04/24 Herber Lopez MD [address] [place] [address] 00293 Assigned Dermatology Provider 07/26/24 Сергей Dumont [facility] Pan Dumper 08/13/24 Kenya Jennings MD [address] [place] [address] 796615 Assigned Surgical Provider 08/26/24 Luis Dudley MD [address] [facility] [place] [place] [address] Assigned Behavioral Health Provider 09/25/24 10/25/24 Carmen Cole PA-C 6363 RUPERT Ruiz [facility] [address] [place], [place] 879315 Assigned Sleep Provider 09/25/24 documented as of this encounter
--- OUTSIDE RECORDS SUMMARY | 2024-10-28 19:20 | XMS_ITS | Encounter Summary ---
Author Organization [facility] Address [address] [place] [address] 75159 Care Team Providers Care Record Center Coordinator Name Role Phone Eddie Cedillo MD Unavailable Cindy Ruiz Unavailable [phone] Doris Ricci MD Primary Care Provider Marge Kelley MD Unavailable [phone] Kaitlin Branch MD Unavailable [phone] Kesha Boyd DO Primary Care Provider Trevor Espino MD Unavailable [phone] Jessica Reddy MD Unavailable Melanie Boykin MD Unavailable [phone] Jaci Whitlock APRN STARCHER AND TENTER RANGE FEEDER Unavailable + Jessica Reddy MD Unavailable Yudy Mathews MD Primary Care Provider [phone] Yudy Mathews MD Unavailable [phone] Jaci Whitlock CLAY MILLER STARCHER AND TENTER RANGE FEEDER Unavailable + Juan M Smith MD, Madhuri Unavailable [phone] Doris Ricci MD Unavailable Yudy Mathews MD Unavailable +[phone] Antonette Castro PA-C Unavailable +[phone] Yudy Pompa MD Unavailable [phone] Jessi Mcfdaden MD Unavailable +[phone] Mary Carmen Rodriguez MD Unavailable + Herber Lopez MD Unavailable +[phone] Yomi Izquierdo DPM Unavailable [phone] Torey Luna MD Primary Care Provider [phone] Antonette Castro-C Unavailable +[phone] Torey Luna MD Unavailable [phone] Herber Lopez MD Unavailable +[phone] Maurilio Carlson MD Unavailable Herber Lopez MD Unavailable +[phone] Gloria Elizalde MD Unavailable [phone] Olena mSith [facility] Unavailable Unavailable Maurilio Carlson MD Unavailable Mamadou Bowie MD Primary Care Provider [phone] AzebMamadou menchaca MD Unavailable Herber Lopez MD Unavailable +[phone] Makenzie Romano MD Unavailable +[phone] Shani Stephenson MD Unavailable [phone] Yomi Campos PhD Unavailable +[phone] Ita Newton Unavailable Unavailable Kenya Jennings MD Unavailable + [phone] Herber Lopez MD Unavailable +[phone] Сергей Dumont [facility] Unavailable Unavailable Kenya Jnenings MD Unavailable +[phone] Jesse Arvizu MD Unavailable Luis Dudley MD Unavailable +[phone] Carmen Cole PA-C Unavailable [phone] Racheal Ng MD Unavailable [phone] Encounter Details Date Type Department Care Team (Late st Contact Info) Description 02/14/2016 MyC Medical Advice [facility] [address] [place] [phone] Yudy Pompa MD [address] [place] [address] Social History Tobacco Use Types Packs/Day Years Used Date Smoking Tobacco: Never Alcohol Use Standard Drinks/Week Comments No 0 (1 standard drink = 0.6 oz pur e alcohol) Comments No Sex and Gender Information Value Date Recorded Sex Assigned at Female 11/14/2020 10:33 PM CDT Legal Sex Female 3:[address] Gender Identity other 11/14/2020 10:33 PM CDT Sexual Orientation Lesbian 06/22/2019 4: [address] documented as of this encounter Plan of Treatment Upcoming Encounters Date Type Department Care Team (Latest Contact Info) Description 10/29/2024 11:00 AM CDT [facility] [address] [place] [phone] 11/23/2024 1:30 PM CDT Office Visit [facility] Addiction [address] [place] [address] [phone] Melanie Boykin MD [address] [place] [address] [phone] Gloria Elizalde MD 420 [place], [place] [phone] 12/03/2024 3:00 PM CDT [facility] 5775 [facility] [address] [place] [address] [phone] Jesse Arvizu MD [address] [place] [address] 12/15/2024 11:40 AM CDT Ancillary Procedure [facility] Imaging Center CT Clinic [address] [place] [phone] Yudy Pompa MD [address] [place] [address] 12/22/2024 11:40 AM CDT [facility] [address] [place] [address] [phone] Yudy Pompa MD [address] [place] [address] 02/22/2025 12:30 PM CDT Office Visit [facility] Clinic [address] [phone] Kenya Jennings MD [address] [place] [address] 244255 03/12/2025 1:[address] Office Visit [facility] Internal Medicine [address] [phone] Mamadou Bowie MD [address] [place] [address] 03/23/2025 8:[address] Hospital Encounter [facility] [address] [place] [address] [place] [phone] Kenya Jennings MD [address] [place] [address] 03/23/2025 8:[address] - 03/23/2025 12:[address] CONTRACTOR Surgery [facility] [address] [place] [phone] Kenya Jennings MD [address] [place] [address] 935155 MASTECTOMY, BILATERAL, SIMPLE, NO nipple grafts. OnQ 03/30/2025 10:[address] Office Visit [facility] [address] [phone] Lynn Parks APRN [address] 798045 04/16/2025 1:[address] Office Visit [facility] Internal Medicine [address] [phone] Mamadou Bowie MD [address] [place] [address] 477[address] 05/03/2025 4:[address] Office Visit [facility] [address] [phone] Kenya Jennings MD [address] [place] [address] 08/17/2025 12:15 PM CDT Office Visit [facility] Dermatology Clinic [address] [phone] Herber Lopez MD [address] [place] [address] 498175 Scheduled Procedures Name Priority Associated Diagnoses Date/Ti me MASTECTOMY, BILATERAL, FOR GENDER AFFIRMATION Gender dysphoria in adult 03/23/2025 8:[address] documented as of this encounter Visit Diagnoses Not on filedocumented in this encounter Additional Health Concerns Assessment Noted Time PHQ-9 Depression Total Score: 4 01/31/20 16 7:19 AM CDT documented as of this encounter Care Teams Record Center Coordinator Relationship Specialty Start Date End Date Doris Ricci MD [facility] [address] [place] [address] PCP - General Internal Medicine 03/01/15 04/11/16 Kesha Boyd DO [address] [phone] [place] [address] PCP - General Family Practice 04/12/16 10/16/18 Yudy Mathews MD [address] [place] [address]36 PCP - General Internal Medicine 10/17/18 04/18/21 Torey Luna MD [address] [address] PCP - General Internal Medicine 04/19/21 03/17/23 Mamadou Bowie MD [address] [place] [address]355 PCP - General 03/18/23 Eddie Cedillo MD [facility] [address] [place] [address] Dermatology 10/21/14 11/18/17 Cindy Ruiz [facility] [place] [address] Resident Internal Medicine 12/07/14 Marge Kelley MD [facility] 2450 [facility] F[address] [place], [place] 306094 Resident Psychiatry 12/30/15 02/05/17 Kaitlin Branch MD [address] [place], [place] [phone] [place], [place] [phone] dog food dough mixer 01/02/16 10/17/20 Trevor Espino MD [address] [place] [address] 785165 Urology 05/16/16 Jessica Reddy MD [address] 837416 Resident Student in organized health care education/training program 12/10/16 10/16/18 Melanie Boykin MD [address] [place] [address] 066594 dog food dough mixer 12/10/16 11/07/23 Jaci Whitlock APRN STARCHER AND TENTER RANGE FEEDER [address] [place] [address] 395 [place], [place] 788205 Nurse Practitioner - Women's Health 12/14/16 Jessica Reddy MD [address] 911426 Resident Student in organized health care education/training program 02/06/17 06/26/18 Yudy Mathews MD [place] [address] Assigned PCP 09/24/19 07/24/20 Jaci Whitlock APRN CNP [address] [place] [address] 395 [place] [address] Assigned OBGYN Provider 02/26/20 Shanelle Mcgowan MD [address] [place] [address]231 Assigned Surgical Provider 02/26/20 07/29/21 Doris Ricci MD [address] [address] Physician Internal Medicine 07/11/20 [place] [address] Assigned PCP 07/25/20 04/22/21 Antonette Castro PA-C [address] [place] [address] Assigned Heart and Vascular Provider 07/20/20 04/08/21 Yudy Pompa MD [address] [place] [address] 60893 Assigned Cancer Care Provider 08/21/20 Jessi Mcfadden MD [address] [place] [address] F282/2A [place] [address] Resident Psychiatry 11/08/20 12/23/22 Mary Carmen Rodriguez MD [address] [address] Dermatology 11/09/20 Herber Lopez MD [address] [address] Dermapathology 11/09/20 Yomi Izquierdo DPM [address] [facility] [address] [place] [address] Assigned Musculoskeletal Provider 12/04/20 06/08/22 Antonette Castro PA-C 9 [place] [address] Assigned Gastroenterology Provider 04/09/21 07/08/21 Torey Luna MD [address] [address] Assigned PCP 04/23/21 03/22/23 Herber Lopez MD [address] [place] [address] 41547 Assigned Surgical Provider 07/30/21 11/17/21 Maurilio Carlson MD 909 [place] [address] Assigned Surgical Provider 11/18/21 11/23/22 Herber Lopez MD [address] [address] Assigned Surgical Provider 11/24/22 12/21/22 Gloria Elizalde MD 420 [place] [address] Resident 12/24/22 Olena Smith LSW Specialty [employer] Farm Equipment Mechanic - Clinical 12/25/22 01/03/23 [place] [address] [place], [place] 248449 Assigned Surgical Provider 12/22/22 05/17/23 Mamadou Bowie MD 909 [place], [place] 265395 Assigned PCP 03/23/23 Herber Lopez MD 420 [facility] 98 [place], [place] 000635 Assigned Surgical Provider 05/18/23 07/25/24 Makenzie Romano MD [address] [address] dog food dough mixer & Neurology - Child & Adolescent Psychiatry 11/08/23 Shani [place] MD 420 [place], [place] 300815 Resident Psychiatry 11/08/23 Yomi Campos, PhD [address] [place] [address] Assigned Behavioral Health Provider 01/27/24 08/25/24 Ita Newton Specialty [employer] 06/04/24 Kenya Jennings MD 420 [facility] 195 [place], [place] [phone] Plastic Surgery 06/04/24 Herber Lopez MD 420 [facility] 98 [place], [place] 767305 Assigned Dermatology Provider 07/26/24 Сергей Dumont, [facility] Farm Equipment Mechanic 08/13/24 Kenya Jennings MD 420 [facility] 195 [place], [place] 919835 Assigned Surgical Provider 08/26/24 Jesse Arvizu MD 5775 [place], [place] [phone] Assigned Behavioral Health Provider 08/26/24 09/24/24 Luis Dudley MD 240 [place], [place] [phone] Assigned Behavioral Health Provider 09/25/24 10/25/24 Carmen Cole PA-C [address] 815535 Assigned Sleep Provider 09/25/24 Racheal Ng MD 2450 [facility] F[address] [place] [address] Assigned Behavioral Health Provider 10/26/24 documented as of this encounter
--- OUTSIDE RECORDS SUMMARY | 2024-10-28 19:20 | XMS_ITS | Encounter Summary ---
Author Organization [facility] Address [address] [place] [address] 91068 Care Team Providers Care Electrical Experimental Mechanic Name Role Phone Cindy Ruiz Unavailable [phone] Trevor Espino MD Unavailable [phone] Jaci Whitlock APRN SKIP PITMAN Unavailable + Doris Ricci MD Unavailable Yudy Pompa MD Unavailable [phone] Mary Carmen Rodriguez MD Unavailable + Herber Lopez MD Unavailable [phone] Gloria Elizalde MD Unavailable Mamadou Bowie MD Primary Care Provider [phone] Mamadou Bowie MD Unavailable Makenzie Romano MD Unavailable [phone] Shani Stephenson MD Unavailable [phone] Ita Newton Unavailable Unavailable Kenya Jennings MD Unavailable [phone] Herber Lopez MD Unavailable [phone] Сергей Dumont [facility] Unavailable Unavailable Kenya Jennings MD Unavailable [phone] Luis Dudley MD Unavailable +[phone] Carmen Cole PA-C Unavailable [phone] Reason for Visit * Reason Onset Date Comments Patient Request 09/25/2024 Encounter Details Date Type Department Care Team (Late st Contact Info) Description 09/25/2024 Telephone [facility] [address] [place] [address] Mamadou Bowie MD [address] [place] [address] Patient Request Social History Tobacco Use Types Packs/Day Years [...] relatives? Three times a week 04/02/2024 Attends Gnosticism Services Not on file 04/02 Active Member of Clubs or Organizations Not on f ile 04/02/2024 Attends Club or Organization Meetings Not on jd e 04/02/2024 Marital Status Not on file 04/02/2024 PHQ-2 Answer Date Recorded PHQ-2 Score 2 09/25/2024 [facility] of Occupat [...] PM CDT Legal Sex Female 3:58 AM INFECTION CONTROL NURSE Gender Identity other 11/14/2020 10:33 PM CDT Sexual Orientation Lesbian 06/22/2019 4: 20 AM INFECTION CONTROL NURSE documented as of this encounter Miscellaneous Notes * Telephone Encounter - Frederic Salmon - 09/25/2024 2:06 PM CDT Patient requested 03/12 appt to be changed to pre-op, appt has been changed. Pt will call back to schedule an annual physical at a later date * Telephone Encounter - Clary Abebe - 09/25/2024 1:22 PM CDT [facility] Phone Message May a detailed message be left on voicemail: yes Reason for Call: Other: Patient scheduled physical in nov. Patient also needs pre-op done sometime around then and was wondering if that could be her pre op advise thanks. Action Taken: Message routed to[facility] Travel Screening: Not Applicable Date of Service: documented in this encounter Plan of Treatment Upcoming Encounters Date Type Department Care Team (Latest Contact Info) Description 10/29/2024 11:00 AM CDT [facility] [address] [phone] 11/23/2024 1:30 PM CDT Office Visit [facility] [place] [id number] [address] [place] [phone] Melanie Boykin MD [address] [place] [address] 83[address] Gloria Elizalde MD [address] [place], [place] 186525 12/03/2024 3:00 PM CDT Office Visit [facility] [address] [place] [phone] Jesse Arvizu MD [address] [place] [address] 12/15/2024 11:40 AM CDT Ancillary Procedure [facility] [address] [place] [address] 1st [place] [phone] Yudy Pompa MD [address] [place] [address] 12/22/2024 11:40 AM CDT Oncology Visit [facility] [address] [place] [address] [phone] Yudy Pompa MD [address] [place] [address] [phone] 02/22/2025 12:30 PM CDT Office Visit [facility] [address] [phone] Kenya Jennings MD [address] [place] [address] 111835 03/12/2025 1:00 PM INFECTION CONTROL NURSE Office Visit [facility] [address] [phone] Mamadou Bowie MD [address] [place] [address] 096045 03/23/2025 8:00 AM INFECTION CONTROL NURSE Hospital Encounter [facility] [address] [place] [address] [phone] Kenya Jennings MD [address] [place] [address] 8[address] 03/23/2025 8:00 AM INFECTION CONTROL NURSE - 03/23/2025 12:05 PM INFECTION CONTROL NURSE Surgery [facility] [address] [place] [address] [phone] Kenya Jennings MD [address] [place] [address] 805335 MASTECTOMY, BILATERAL, SIMPLE, NO nipple grafts. OnQ 03/30/2025 10:00 AM INFECTION CONTROL NURSE Office Visit [facility] [address] [phone] Lynn Parks APRN SKIP PITMAN [address] [place] [address] 6[address] 04/16/2025 1:00 PM INFECTION CONTROL NURSE Office Visit [facility] [address]th [place] [phone] Mamadou Bowie MD [address] [place] [address] 60[address] 05/03/2025 4:00 PM INFECTION CONTROL NURSE Office Visit [facility] [address] [phone] Kenya Jennings MD [address] [place] [address] 195 [place], [place] 854395 08/17/2025 12:15 PM CDT Office Visit [facility] [address] [place] [phone] Herber Lopez MD [address] [place] [address] 98 [place], [place] [phone] Scheduled Procedures Name Priority Associated Diagnoses Date/Ti me MASTECTOMY, BILATERAL, FOR GENDER AFFIRMATION Gender dysphoria in adult 03/23/2025 8:00 AM INFECTION CONTROL NURSE documented as of this encounter Goals Goal [...] documented as of this encounter Care Teams Electrical Experimental Mechanic Relationship Specialty Start Date End Date Mamadou Bowie MD [address] [place] [address] 68719 PCP - General 03/18/23 [address] Ru[place] [place] [address] Resident Internal Medicine 12/07/14 Trevor Espino MD [address] [place] [address] 170385 Urology 05/16/16 Jaci Whitlock APRN SKIP PITMAN [address] [place] [address] 395 [place] [address] Nurse Practitioner - Women's Health 12/14/16 Doris Ricci MD [facility] & [address] [address] Physician Internal Medicine 07/11/20 Yudy Pompa MD [address] [place] [address]455 Assigned Cancer Care Provider 08/21/20 Mary Carmen Rodriguez MD 420 [facility] 98 [place], [place] 518305 Dermatology 11/09/20 Herber Lopez MD 420 [facility] 98 [place], [place] 047195 Dermapathology 11/09/20 Gloria Elizalde MD [address] [place] [address] 048465 Resident 12/24/22 Mamadou Bowie MD 909 [facility] [place] [address] Assigned PCP 03/23/23 Makenzie Romano MD 2450 [facility] F[address] [place], [place] 345504 origination specialist & Neurology - Child & Adolescent Psychiatry 11/08/23 Shani Stephenson MD 420 [place], [place] 759195 Resident Psychiatry 11/08/23 Ita Newton Specialty Supervisor Patching 06/04/24 Kenya Jennings MD 420 [facility] 195 [place], [place] 052755 Plastic Surgery 06/04/24 Herber Lopez MD 420 [facility] 98 [place], [place] 202735 Assigned Dermatology Provider 07/26/24 Сергей Dumont [facility] Terminal Gauger 08/13/24 Kenya Jennings MD 420 [facility] 195 [place], [place] 672805 Assigned Surgical Provider 08/26/24 Luis Dudley MD 240 [facility] [place], [place] 349274 Assigned Behavioral Health Provider 09/25/24 10/25/24 Carmen Cole PA-C [address] [facility] [address] [facility] 103 [place] [address] Assigned Sleep Provider 09/25/24 documented as of this encounter
--- OUTSIDE RECORDS SUMMARY | 2024-10-28 19:20 | XMS_ITS | Clinical Summary ---
Author Organization [facility] Address [facility] [place] [address] Care Team Providers Care Cardiac Sonographer Name Role Phone Zenia Jon MD Primary Care Provider [phone] Allergies Active Allergy Reactions Criticality Noted Date Comments Sulfa (Sulfonamide Antibiotics) Rash 08/05 Medications buPROPion (WELLBUTRIN XL) 300 mg Extended-Releas e tablet Take 1 tablet by mouth every morning. 0 08/31/2014 Active LORazepam (ATIVAN) 0.5 mg tab Take 1 tablet by mouth once daily. 0 08/31/2014 Active albuterol HFA (VENTOLIN HFA) 90 mcg/actuation inhalerIndicati ons:URI, acute Inhale 2 Puffs by mouth 4 times daily if needed. Fill upon request 1 Inhaler 1 09/15/2015 Active prazosin (MINIPRESS) 1 mg capsule 3 total daily 0 09/21/2016 Active venlafaxine (EFFEXOR XR) 37.5 mg Extended-Releas e capsule Take once daily 01/21/2017 Active Active Problems Problem Noted Date Diagnosed Date Depression 09/01/2014 Overview (09/01/2014): Followed by [facility], Dr. Davis. 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 Cedillo of Dermatology. 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 Not on file Not on file Obstetrics History Last Filed Vital Signs Vital Sign Reading Time Taken Comments Blood Pressure 129/82 04/15/2017 8:34 AM REHABILITATION THERAPY TECHNICIAN Pulse 79 04/15/2017 8:34 AM REHABILITATION THERAPY TECHNICIAN Temperature 37.3 C (99.2 F) 04/15/2017 8:34 AM REHABILITATION THERAPY TECHNICIAN Respiratory Rate 16 02/07/2017 9:38 AM CDT Oxygen Saturation 97% 04/15/2017 8:34 AM REHABILITATION THERAPY TECHNICIAN Inhaled Oxygen Concentration - - Weight 128.7 kg (283 lb 12.8 oz) 04/15/2017 8:34 AM REHABILITATION THERAPY TECHNICIAN Height 177.8 cm (5' 10) 04/15/2017 8:34 AM REHABILITATION THERAPY TECHNICIAN Body Mass Index 40.72 04/15/2017 8:34 AM REHABILITATION THERAPY TECHNICIAN Plan of Treatment Health Maintenance Due Date Last Done Comments HIV for age 15-65 1979 Hepatitis C screening for ag e 18-79 1982 Colonoscopy through age 75 2009 Lipids for age 45-75 2009 Mammogram for age 45-75 2009 Pneumococcal series for age 50+ (1 of 1 - PCV) 2014 Zoster (shingles) series for age 50+ (1 of 2) 2014 Depression screening for age 12+ 02/07/2018 02/07/2017, 03/27/2016, 09/15/2015 BMI (ht and wt on same day) for age 18+ 04/15/2018 04/15/2017, 09/21/2016, 09/15/2015 Tetanus booster 09/01/2019 08/31/2009 COVID-19 vaccine series ( season) 2024 08/20/2020, 07/30/2020 Influenza Vaccine (Season Ended) 2025 RSV vaccine for adults or (1 - 1-dose 75+ series) 2039 Tdap Completed 08/31/2009 Hepatitis B series for 19+ Aged Out N o longer eligible based on patient's age to complete this topic Care Teams Cardiac Sonographer Relationship Specialty Start Date End Date Zenia Jon MD PCP - General Family Practice 04/15/17
--- OUTSIDE RECORDS SUMMARY | 2024-10-28 19:20 | XMS_ITS | Encounter Summary ---
Author Organization [facility] Address [address] [place] [address] 9[address]36 Care Team Providers Care Valet Runner Name Role Phone Eddie Cedillo MD Unavailable Cindy Ruiz Unavailable [phone] Doris Ricci MD Primary Care Provider Marge Kelley MD Unavailable [phone] Kaitlin Branch MD Unavailable [phone] Kesha Boyd DO Primary Care Provider Trevor Espino MD Unavailable [phone] Jessica Reddy MD Unavailable Melanie Boykin MD Unavailable [phone] Jaci Whitlock APRN MILK AND CREAM GRADER Unavailable + Jessica Reddy MD Unavailable Yudy Mathews MD Primary Care Provider [phone] Yudy Mathews MD Unavailable [phone] Jaci Whitlock ASSOCIATE MUSIC PROFESSOR MILK AND CREAM GRADER Unavailable + Juan M Smith MD, Madhuri Unavailable [phone] Doris Ricci MD Unavailable Yudy Mathews MD Unavailable [phone] Antonette Castro PA-C Unavailable [phone] Yudy Pompa MD Unavailable [phone] Jessi Mcfadden MD Unavailable [phone] Mary Carmen Rodriguez MD Unavailable + Herber Lopez MD Unavailable +[phone] Yomi Izquierdo DPM Unavailable [phone] Torey Luna MD Primary Care Provider [phone] Antonette Castro-C Unavailable [phone] Torey Luna MD Unavailable [phone] Herber Lopez MD Unavailable +[phone] Maurilio Carlson MD Unavailable Herber Lopez MD Unavailable +[phone] Gloria Elizalde MD Unavailable [phone] Olena Smith [facility] Unavailable Unavailable Maurilio Carlson MD Unavailable Mamadou Bowie MD Primary Care Provider [phone] AzebMamadou menchaca MD Unavailable Herber Lopez MD Unavailable [phone] Makenzie Romano MD Unavailable [phone] Shani Stephenson MD Unavailable [phone] Yomi Campos PhD Unavailable +[phone] Ita Newton Unavailable Unavailable Kenya Jennings MD Unavailable + [phone] Herber Lopez MD Unavailable +[phone] Сергей Dumont [facility] Unavailable Unavailable Kenya Jennings MD Unavailable +[phone] Jesse Arvizu MD Unavailable Luis Dudley MD Unavailable [phone] Carmen Cole PA-C Unavailable [phone] Racheal Ng MD Unavailable Encounter Details Date Type Department Care Team (Late st Contact Info) Description 01/02/2016 MyC Medical Advice [facility] [address] [place] [phone] Willow Schwarz, RN Social History Tobacco Use Types Packs/Day Years Used Date Smoking Tobacco: Never Alcohol Use Standard Drinks/Week Comments No 0 (1 standard drink = 0.6 oz pur e alcohol) Comments No Sex and Gender Information Value Date Recorded Sex Assigned at Female 11/14/2020 10:33 PM CDT Legal Sex Female 3:58 AM EAP SPECIALIST Gender Identity other 11/14/2020 10:33 PM CDT Sexual Orientation Lesbian 06/22/2019 4: 20 AM EAP SPECIALIST documented as of this encounter Plan of Treatment Upcoming Encounters Date Type Department Care Team (Latest Contact Info) Description 10/29/2024 11:00 AM CDT [facility] [address] [place] [address] [phone] 11/23/2024 1:30 PM CDT Office Visit [facility] [place] [phone] [phone] Melanie Boykin MD [address] [place] [address] 290384 Gloria Elizalde MD 420 [place], [place] 833765 12/03/2024 3:00 PM CDT [facility] Visit [facility] 57[address] [facility] [address] [place] [address] [phone] Jesse Arvizu MD [address] [place] [address] 945066 12/15/2024 11:40 AM CDT Ancillary Procedure [facility] [address] [place] [phone] Yudy Pompa MD [address] [place] [address] 04276 12/22/2024 11:40 AM CDT Oncology Visit [facility] [address] [place] [address] [phone] Yudy Pompa MD [address] [place] [address] 039295 02/22/2025 12:30 PM CDT Office Visit [facility] [address] [place] [phone] Kenya Jennings MD [address] [place] [address] 90261 03/12/2025 1:00 PM EAP SPECIALIST Office Visit [facility] Internal Medicine [address] [place] [phone] Mamadou Bowie MD [address] [place] [address] 323[address] 03/23/2025 8:00 AM EAP SPECIALIST Hospital Encounter [facility] [address] [place] [address] [place] [phone] Kenya Jennings MD [address] [place] [address] 165835 03/23/2025 8:00 AM EAP SPECIALIST - 03/23/2025 12:05 PM EAP SPECIALIST Surgery [facility] [address] [place] [address] [place] [phone] Kenya Jennings MD [address] [place] [address] 947195 MASTECTOMY, BILATERAL, SIMPLE, NO nipple grafts. OnQ 03/30/2025 10:00 AM EAP SPECIALIST Office Visit [facility] [address] [phone] Lynn Parks APRN [address] [address] 04/16/2025 1:00 PM EAP SPECIALIST Office Visit [facility] Internal Medicine [address] [phone] Mamadou Bowie MD [address] [place] [address] [phone] 05/03/2025 4:00 PM EAP SPECIALIST Office Visit [facility] [address] [phone] Kenya Jennings MD [address] [place] [address] 26730 08/17/2025 12:15 PM CDT Office Visit [facility] [address] [place] [phone] Herber Lopez MD [address] [place] [address] [phone] Scheduled Procedures Name Priority Associated Diagnoses Date/Ti me MASTECTOMY, BILATERAL, FOR GENDER AFFIRMATION Gender dysphoria in adult 03/23/2025 8:00 AM EAP SPECIALIST documented as of this encounter Visit Diagnoses Not on filedocumented in this encounter Additional Health Concerns Assessment Noted Time PHQ-9 Depression Total Score: 7 01/04/20 16 7:21 AM CDT documented as of this encounter Care Teams Valet Runner Relationship Specialty Start Date End Date Doris Ricci MD [facility] [address] [place] [address] PCP - General Internal Medicine 03/01/15 04/11/16 Kesha Boyd DO [address] [place] [address] 21529 PCP - General Family Practice 04/12/16 10/16/18 Yudy Mathews MD [address] [place] [address] 15997 PCP - General Internal Medicine 10/17/18 04/18/21 Torey Luna MD [address] [place] [address] 65815 PCP - General Internal Medicine 04/19/21 03/17/23 Mamadou Bowie MD [address] [place] [address] 17522 PCP - General 03/18/23 Eddie Cedillo MD [facility] [address]50 [place] [address] Dermatology 10/21/14 11/18/17 Cindy Ru[place] [address] Resident Internal Medicine 12/07/14 Marge Kelley MD [place] [id number] [address] [place] [address] Resident Psychiatry 12/30/15 02/05/17 Kaitlin Branch MD [address] [place] [address] [place], [place] 2946982 [place] [address] slip bridge operator 01/02/16 10/17/20 Trevor Espino MD [address] [place] [address] 12454 Urology 05/16/16 Jessica Reddy MD [address] [address] Resident Student in organized health care education/training program 12/10/16 10/16/18 Melanie Boykin MD [address] [place] [address] 03417 slip bridge operator 12/10/16 11/07/23 Jaci Whitlock APRN MILK AND CREAM GRADER [address] [place] [address] 395 [place], [place] 974215 Nurse Practitioner - Women's Health 12/14/16 Jessica Reddy MD [address] 039446 Resident Student in organized health care education/training program 02/06/17 06/26/18 Yudy Mathews MD [facility] [address] Assigned PCP 09/24/19 07/24/20 Jaci Whitlock APRN CNP 420 [facility] 395 [place], [place] 243435 Assigned OBGYN Provider 02/26/20 Shanelle Mcgowan MD [address] [place] [address] 95256 Assigned Surgical Provider 02/26/20 07/29/21 Doris Ricci MD [address] [address] Physician Internal Medicine 07/11/20 Yudy Mathews MD [facility] [place] [address] Assigned PCP 07/25/20 04/22/21 Antonette Castro PA-C [address] [place] [address] 39458 Assigned Heart and Vascular Provider 07/20/20 04/08/21 Yuyd Pompa MD [address] [place] [address] 64871 Assigned Cancer Care Provider 08/21/20 Jessi Mcfadden MD [address] [place] [address] F282/2A [place] [address] Resident Psychiatry 11/08/20 12/23/22 Mary Carmen Rodriguez MD [address] [address] MD Dermatology 11/09/20 Herber Lopez MD [address] [place] [address] 25268 Dermapathology 11/09/20 Yomi Izquierdo DPM [address] [facility] [address] [place] [address] Assigned Musculoskeletal Provider 12/04/20 06/08/22 Antonette Castro PA-C [address] [place] [address] 27069 Assigned Gastroenterology Provider 04/09/21 07/08/21 Torey Luna MD [address] [place] [address] 59430 Assigned PCP 04/23/21 03/22/23 Herber Lopez MD [address] [place] [address] 34538 Assigned Surgical Provider 07/30/21 11/17/21 Maurilio Carlson MD [address] [place] [address] 13003 Assigned Surgical Provider 11/18/21 11/23/22 Herber Lopez MD [address] [place] [address] 47977 Assigned Surgical Provider 11/24/22 12/21/22 Gloria Elizalde MD [address] [place] [address] 477[address] Resident 12/24/22 Oelna Smith LSW Specialty Youth Manager Heddle Machine Operator - Clinical 12/25/22 01/03/23 [place] [address] [place] [address] Assigned Surgical Provider 12/22/22 05/17/23 Mamadou Bowie MD [address] [place] [address] 31266 Assigned PCP 03/23/23 Herber Lopez MD 420 [facility] 98 [place] [address] Assigned Surgical Provider 05/18/23 07/25/24 Makenzie Romano MD [address] 224184 slip bridge operator & Neurology - Child & Adolescent Psychiatry 11/08/23 Shani Stephenson MD 420 [place], [place] 031185 Resident Psychiatry 11/08/23 Yomi Campos, PhD [address] [place], [place] 6[address]64[address] [place] [address] Assigned Behavioral Health Provider 01/27/24 08/25/24 Ita Newton Specialty Youth Manager 06/04/24 Kenya Jennings MD 420 [facility] 195 [place] [address] Plastic Surgery 06/04/24 Herber Lopez MD 420 [facility] 98 [place] [address] Assigned Dermatology Provider 07/26/24 Сергей Dumont, [facility] Heddle Machine Operator 08/13/24 Kenya Jennings MD 420 [facility] 195 [place], [place] 248585 Assigned Surgical Provider 08/26/24 Jesse Arvizu MD 5775 [place], [place] [phone] Assigned Behavioral Health Provider 08/26/24 09/24/24 Luis Dudley MD 240 [place], [place] 440274 Assigned Behavioral Health Provider 09/25/24 10/25/24 Carmen Cole PA-C 6363 [facility] [address] 103 [place], [place] 487525 Assigned Sleep Provider 09/25/24 Racheal Ng MD 2450 [facility] [address] [place] [address] Assigned Behavioral Health Provider 10/26/24 documented as of this encounter
--- OUTSIDE RECORDS SUMMARY | 2024-10-28 19:20 | XMS_ITS | Encounter Summary ---
Author Organization [facility] Address [address] [place] [address] Care Team Providers Care Wholesale Account Executive Name Role Phone Eddie Cedillo MD Unavailable Cindy Ruiz Unavailable [phone] Doris Ricci MD Primary Care Provider [phone] Marge Kelley MD Unavailable +[phone] Kaitlin Branch MD Unavailable +[phone] Kesha Boyd DO Primary Care Provider Trevor Espino MD Unavailable +[phone] Jessica Reddy MD Unavailable Melanie Boykin MD Unavailable +[phone] Jaci Whitlock APRN PORTRAIT ARTIST Unavailable + Jessica Reddy MD Unavailable Yudy Mathews MD Primary Care Provider [phone] Yudy Mathews MD Unavailable +[phone] Jaci Whitlock HEAD OF PRECISION TARGETING PORTRAIT ARTIST Unavailable + Juan M Smith MD, Madhuri Unavailable +[phone] Doris Ricci MD Unavailable Yudy Mathews MD Unavailable +[phone] Antonette Castro PA-C Unavailable +[phone] Yudy Pompa MD Unavailable +[phone] Jessi Mcfadden MD Unavailable +[phone] Mary Carmen Rodriguez MD Unavailable + Herber Lopez MD Unavailable +[phone] Yomi Izquierdo DPM Unavailable [phone] Torey Luna MD Primary Care Provider [phone] Antonette Castro-C Unavailable +[phone] Torey Luna MD Unavailable +[phone] Herber Lopez MD Unavailable +[phone] Maurilio Carlson MD Unavailable Herber Lopez MD Unavailable +[phone] Gloria Elizalde MD Unavailable +[phone] Olena Smith [facility] Unavailable Unavailable Maurilio Carlson MD Unavailable Mamadou Bowie MD Primary Care Provider +[phone] AzebMamadou menchaca MD Unavailable Herber Lopez MD Unavailable +[phone] Makenzie Romano MD Unavailable +[phone] Shani Stephenson MD Unavailable +[phone] Yomi Campos PhD Unavailable +[phone] Ita Newton Unavailable Unavailable Kenya Jennings MD Unavailable + [phone] Herber Lopez MD Unavailable +[phone] Сергей Dumont [facility] Unavailable Unavailable Kenya Jennings MD Unavailable +[phone] Jesse Arvizu MD Unavailable Luis Dudley MD Unavailable +[phone] Carmen Cole PA-C Unavailable +[phone] Racheal Ng MD Unavailable Encounter Details Date Type Department Care Team (Late st Contact Info) Description 02/07/2016 MyC Medical Advice [facility] [address] [place] [phone] Yudy Pompa MD [address] [place] [address] Social History Tobacco Use Types Packs/Day Years Used Date Smoking Tobacco: Never Alcohol Use Standard Drinks/Week Comments No 0 (1 standard drink = 0.6 oz pur e alcohol) Comments No Sex and Gender Information Value Date Recorded Sex Assigned at Female 11/14/2020 10:33 PM CDT Legal Sex Female 3:58 AM SLUG PRESS OPERATOR Gender Identity other 11/14/2020 10:33 PM CDT Sexual Orientation Lesbian 06/22/2019 4: 20 AM SLUG PRESS OPERATOR documented as of this encounter Plan of Treatment Upcoming Encounters Date Type Department Care Team (Latest Contact Info) Description 10/29/2024 11:00 AM CDT [facility] [address] [place] [phone] 11/23/2024 1:30 PM CDT Office Visit [facility] Mental Health & Addiction [address] [place] [address] [phone] Melanie Boykin MD [address] [place] [address] 057404 Gloria Elizalde MD 420 [place], [place] [phone] 12/03/2024 3:00 PM CDT Office Visit [facility] [address] [facility] [address] [place] [address] [phone] Jesse Arvizu MD [address] [place] [address] 68[address] 12/15/2024 11:40 AM CDT Ancillary Procedure [facility] Imaging Center CT Clinic [address] 1st [place] [phone] Yudy Pompa MD [address] [place] [address] 84171 12/22/2024 11:40 AM CDT [facility] [address] [place] [address] [phone] Yudy Pompa MD [address] [place] [address] 8[address] 02/22/2025 12:30 PM CDT Office Visit [facility] Plastic [facility] Re[facility] Surgery Clinic [address] [phone] Kenya Jennings MD [address] [place] [address] 042395 03/12/2025 1:00 PM SLUG PRESS OPERATOR Office Visit [facility] Internal Medicine [address] [phone] Mamadou Bowie MD [address] [place] [address] 206[address] 03/23/2025 8:00 AM SLUG PRESS OPERATOR Hospital Encounter [facility] PeriOp Services [address] [place] [address] [facility] [place] [phone] Kenya Jennings MD [address] [place] [address] 02[address] 03/23/2025 8:00 AM SLUG PRESS OPERATOR - 03/23/2025 12:05 PM SLUG PRESS OPERATOR Surgery [facility] [address] [place] [place] [phone] Kenya Jennings MD [address] [place] [address] 471765 MASTECTOMY, BILATERAL, SIMPLE, NO nipple grafts. OnQ 03/30/2025 10:00 AM SLUG PRESS OPERATOR Office Visit [facility] [address] [phone] Lynn Parks APRN [address] 653255 04/16/2025 1:00 PM SLUG PRESS OPERATOR Office Visit [facility] Internal Medicine [address] [phone] Mamadou Bowie MD [address] [place] [address] 89677 05/03/2025 4:00 PM SLUG PRESS OPERATOR Office Visit [facility] [address] [phone] Kenya Jennings MD [address] [place] [address] 38[address] 08/17/2025 12:15 PM CDT Office Visit [facility] Dermatology Clinic [address] [phone] Herber Lopez MD [address] [place] [address] 106345 Scheduled Procedures Name Priority Associated Diagnoses Date/Ti me MASTECTOMY, BILATERAL, FOR GENDER AFFIRMATION Gender dysphoria in adult 03/23/2025 8:00 AM SLUG PRESS OPERATOR documented as of this encounter Visit Diagnoses Not on filedocumented in this encounter Additional Health Concerns Assessment Noted Time PHQ-9 Depression Total Score: 4 01/31/20 16 7:19 AM CDT documented as of this encounter Care Teams Wholesale Account Executive Relationship Specialty Start Date End Date Doris Ricci MD [facility] [address] [place] [address] PCP - General Internal Medicine 03/01/15 04/11/16 Kesha Boyd DO [address] [phone] [place] [address] PCP - General Family Practice 04/12/16 10/16/18 Yudy Mathews MD [address] [place] [address] PCP - General Internal Medicine 10/17/18 04/18/21 Torey Luna MD [address] [address] PCP - General Internal Medicine 04/19/21 03/17/23 Mamadou Bowie MD [address] [place] [address] 387[address] PCP - General 03/18/23 Eddie Cedillo MD [facility] [address] [place] [address] Dermatology 10/21/14 11/18/17 Cindy Ruiz [facility] [place] [address] Resident Internal Medicine 12/07/[address] [facility] 2450 [facility] F282 [place], [place] 728034 Resident Psychiatry 12/30/15 02/05/17 Kaitlin Branch MD [address] [place], [place] [phone] [place], [place] 384464 order entry specialist 01/02/16 10/17/20 Trevor Espino MD [address] [place] [address] 506925 Urology 05/16/16 Jessica Reddy MD [address] 025206 Resident Student in organized health care education/training program 12/10/16 10/16/18 Melanie Boykin MD [address] [place] [address] 987804 order entry specialist 12/10/16 11/07/23 Jaci Whitlock APRN PORTRAIT ARTIST [address] [place] [address] 395 [place], [place] 346805 Nurse Practitioner - Women's Health 12/14/16 Jessica Reddy MD [address] 904906 Resident Student in organized health care education/training program 02/06/17 06/26/18 Yudy Mathews MD [facility] [place] [address] Assigned PCP 09/24/19 07/24/20 Jaci Whitlock APRN CNP [address] [place] [address] 395 [place] [address] Assigned OBGYN Provider 02/26/20 Shanelle Mcgowan MD [address] [place] [address] 35025 Assigned Surgical Provider 02/26/20 07/29/21 Doris Ricci MD [address] [address] Physician Internal Medicine 07/11/20 [place] [address] Assigned PCP 07/25/20 04/22/21 Antonette Castro PA-C [address] [place] [address] 00270 Assigned Heart and Vascular Provider 07/20/20 04/08/21 Yudy Pompa MD [address] [place] [address] 09916 Assigned Cancer Care Provider 08/21/20 Jessi Mcfadden MD [address] [place] [address] F282/2A [place] [address] Resident Psychiatry 11/08/20 12/23/22 Mary Carmen Rodriguez MD [address] [address] Dermatology 11/09/20 Herber Lopez MD [address] [address] Dermapathology 11/09/20 Yomi Izquierdo DPM [address] [facility] [address] [place] [address] Assigned Musculoskeletal Provider 12/04/20 06/08/22 Antonette Castro PA-C 9 [place] [address] Assigned Gastroenterology Provider 04/09/21 07/08/21 Torey Luna MD [address] [address] Assigned PCP 04/23/21 03/22/23 Herber Lopez MD [address] [place] [address] 6[address] Assigned Surgical Provider 07/30/21 11/17/21 Maurilio Carlson MD 909 [place] [address] Assigned Surgical Provider 11/18/21 11/23/22 Herber Lopez MD [address] [address] Assigned Surgical Provider 11/24/22 12/21/22 Gloria Elizalde MD 420 [place] [address] Resident 12/24/22 Olena Smith LSW Specialty Black Topper Geotechnical Engineering Technician - Clinical 12/25/22 01/03/23 [place] [address] [place], [place] 968[address] Assigned Surgical Provider 12/22/22 05/17/23 Mamadou Bowie MD 909 [place], [place] 217705 Assigned PCP 03/23/23 Herber Lopez MD 420 [facility] 98 [place], [place] 148725 Assigned Surgical Provider 05/18/23 07/25/24 Makenzie Romano MD [address] [address] order entry specialist & Neurology - Child & Adolescent Psychiatry 11/08/23 Shani Stephenson MD 420 [place], [place] 189045 Resident Psychiatry 11/08/23 Yomi Campos, PhD [address] [place] [address] Assigned Behavioral Health Provider 01/27/24 08/25/24 Ita Newton Specialty Black Topper 06/04/24 Kenya Jennings MD 420 [facility] 195 [place], [place] [phone] Plastic Surgery 06/04/24 Herber Lopez MD 420 [facility] 98 [place], [place] 206055 Assigned Dermatology Provider 07/26/24 Сергей Dumont, [facility] Geotechnical Engineering Technician 08/13/24 Kenya Jennings MD 420 [facility] 195 [place], [place] 727305 Assigned Surgical Provider 08/26/24 Jesse Arvizu MD 5775 [place], [place] [phone] Assigned Behavioral Health Provider 08/26/24 09/24/24 Luis Dudley MD 240 [place], [place] [phone] Assigned Behavioral Health Provider 09/25/24 10/25/24 Carmen Cole PA-C [address] 790935 Assigned Sleep Provider 09/25/24 Racheal Ng MD 2450 [facility] F282 [place] [address] Assigned Behavioral Health Provider 10/26/24 documented as of this encounter
--- OUTSIDE RECORDS SUMMARY | 2024-10-28 19:20 | XMS_ITS | Encounter Summary ---
Author Organization [facility] Address [address] [place] [address] 8[address]64 Care Team Providers Care Retail Merchandising Manager Name Role Phone Eddie Cedillo MD Unavailable Rhianna Humphries MD Unavailable + [phone] Cindy Ruiz Unavailable +[phone] Doris Ricci MD Primary Care Provider Mariola Pakrs MD Unavailable Unavailable Marge Kelley MD Unavailable [phone] Kaitlin Branch MD Unavailable [phone] Kesha Boyd DO Primary Care Provider + [phone] Trevor Espino MD Unavailable [phone] Jessica Reddy MD Unavailable Melanei Boykin MD Unavailable [phone] Jaci Whitlock APRN PSYCHIATRIC TECHNICIAN Unavailable + Jessica Reddy MD Unavailable Yudy Mathews MD Primary Care Provider [phone] Yudy Mathews MD Unavailable +[phone] Jaci Whitlock FORM SETTER/DRIVER PSYCHIATRIC TECHNICIAN Unavailable + Juan M Smith MD, Madhuri Unavailable +[phone] Doris Ricci MD Unavailable Yudy Mathews MD Unavailable Antonette Castro PA-C Unavailable +[phone] Yudy Pompa MD Unavailable [phone] Jessi Mcfadden MD Unavailable +[phone] Mary Carmen Rodriguez MD Unavailable + Herber Lopez MD Unavailable +[phone] Yomi Izquierdo DPM Unavailable Torey Luna MD Primary Care Provider Antonette Castro PA-C Unavailable +[phone] Torey Luna MD Unavailable Herber Lopez MD Unavailable +[phone] Maurilio Carlson MD Unavailable Herber Lopez MD Unavailable +[phone] Gloria Elizalde MD Unavailable +[phone] Olena Smith HIGH SCHOOL SOCIAL STUDIES TUTOR Unavailable Unavailable Maurilio Carlson MD Unavailable Mamadou Bowie MD Primary Care Provider Mamadou Bowie MD Unavailable Herber Lopez MD Unavailable [phone] Makenzie Romano MD Unavailable [phone] Shani Stephenson MD Unavailable Yomi Campos PhD Unavailable +[phone] Ita Newton Unavailable Unavailable Kenya Jenninsg MD Unavailable +[phone] Herber Lopez MD Unavailable +[phone] Сергей Dumont [facility] Unavailable Unavailable Kenya Jennings MD Unavailable +[phone] Jesse Arvizu MD Unavailable Luis Dudley MD Unavailable Carmen Cole PA-C Unavailable +[phone] Racheal Ng MD Unavailable [phone] Encounter Details Date Type Department Care Team (Late st Contact Info) Description 10/31/2015 MyC Medical Advice [facility] [address] F[address] [address] Rhianna Humphries MD [address] [place] [address] Social History Tobacco Use Types Packs/Day Years Used Date Smoking Tobacco: Never Alcohol Use Standard Drinks/Week Comments No 0 (1 standard drink = 0.6 oz pur e alcohol) Comments No Sex and Gender Information Value Date Recorded Sex Assigned at Female 11/14/2020 10:33 PM CDT Legal Sex Female 3:58 AM ENTERPRISE SALES PERSON Gender Identity other 11/14/2020 10:33 PM CDT Sexual Orientation Lesbian 06/22/2019 4: 20 AM ENTERPRISE SALES PERSON documented as of this encounter Plan of Treatment Upcoming Encounters Date Type Department Care Team (Latest Contact Info) Description 10/29/2024 11:00 AM CDT [facility] [address] [place] [phone] 11/23/2024 1:30 PM CDT Office Visit [facility] [address] F214 [facility] [address] [address] Melanie Boykin MD [address] [place] [address] Gloria Elizalde MD [address] [place] [address] 657555 12/03/2024 3:00 PM CDT Office Visit [facility] [address] [place] [address] Jesse Arvizu MD 5775 [place] [address] 12/15/2024 11:40 AM CDT Ancillary Procedure [facility] Imaging Center CT Clinic [address] [place] [phone] Yudy Pompa MD [address] [place] [address] 12/22/2024 11:40 AM CDT Oncology Visit [facility] [address] [place] [phone] Yudy Pompa MD [address] [place] [address] 062755 02/22/2025 12:30 PM CDT Office Visit [facility] Plastic and Reconstructive Surgery Clinic [address] [place] [phone] Kenya Jennings MD [address] [place] [address] 370135 03/12/2025 1:00 PM ENTERPRISE SALES PERSON Office Visit [facility] [address] [place] [phone] Mamadou Bowie MD [address] [place] [address] 03/23/2025 8:00 AM ENTERPRISE SALES PERSON Hospital Encounter [facility] PeriOp Services 2450 [place] [phone] Kenya Jennings MD [address] [place] [address] 03/23/2025 8:00 AM ENTERPRISE SALES PERSON - 03/23/2025 12:05 PM ENTERPRISE SALES PERSON Surgery [facility] PeriOp Services [address] [place] [phone] Kenya Jennings MD [address] [place] [address] 346105 MASTECTOMY, BILATERAL, SIMPLE, NO nipple grafts. OnQ 03/30/2025 10:00 AM ENTERPRISE SALES PERSON Office Visit [facility] Plastic [facility] Reconstructive Surgery Clinic [address] [phone] Lynn Parks APRN [address] [address] 04/16/2025 1:00 PM ENTERPRISE SALES PERSON Office Visit [facility] [address] [phone] Mamadou Bowie MD [address] [place] [address] 650275 05/03/2025 4:00 PM ENTERPRISE SALES PERSON Office Visit [facility]astic [facility] Reconstructive Surgery Clinic [address] [phone] Kenya Jennings MD [address] [place] [address] 851785 08/17/2025 12:15 PM CDT Office Visit [facility] Dermatology Clinic [address] [phone] Herber Lopez MD [address] [place] [address] 912605 Scheduled Procedures Name Priority Associated Diagnoses Date/Ti me MASTECTOMY, BILATERAL, FOR GENDER AFFIRMATION Gender dysphoria in adult 03/23/2025 8:00 AM ENTERPRISE SALES PERSON documented as of this encounter Visit Diagnoses Not on filedocumented in this encounter Additional Health Concerns Assessment Noted Time PHQ-9 Depression Total Score: 9 08/24/19 16 7:14 AM CDT documented as of this encounter Care Teams Retail Merchandising Manager Relationship Specialty Start Date End Date Doris Ricci MD [facility] & [address] [address] PCP - General Internal Medicine 03/01/15 04/11/16 Kesha Boyd DO [address] [place] [address] 433414 PCP - General Family Practice 04/12/16 10/16/18 Yudy Mathews MD [address] [place] [address] 652575 PCP - General Internal Medicine 10/17/18 04/18/21 Torey Luna MD [address] [place] [address] 915175 PCP - General Internal Medicine 04/19/21 03/17/23 Mamadou Bowie MD [address] [place] [address] 943075 PCP - General 03/18/23 Eddie Cedillo MD [facility] DERMATOLOGY 3850 [place], [place] 485806 Dermatology 10/21/14 11/18/17 Rhianna Humphries MD [address] [place] [address] 733704 Resident Psychiatry 12/07/14 12/29/15 Cindy Ruiz [address] [place] [address] Resident Internal Medicine 12/07/14 Mariola Parks MD [facility] & [address] [address] closet builder 08/23/15 12/29/15 Marge Kelley MD [address] 222824 Resident Psychiatry 12/30/15 02/05/17 Kaitlin Branch MD [address] [place] [address] 703454 closet builder 01/02/16 10/17/20 Trevor Espino MD [address] [place] [address] 479065 Urology 05/16/16 Jessica Reddy MD [address] [place] [address] Resident Student in organized health care education/training program 12/10/16 10/16/18 Melanie Boykin MD [address] [place] [address] 729954 closet builder 12/10/16 11/07/23 Jaci Whitlock APRN PSYCHIATRIC TECHNICIAN [address] [place] [address] 395 [place] [address] Nurse Practitioner - Women's Health 12/14/16 Jessica Reddy MD [facility] 3800 [place] [address] Resident Student in organized health care education/training program 02/06/17 06/26/18 [place] [address] Assigned PCP 09/24/19 07/24/20 Jaci Whitlock APRN CNP [address] [place] [address]87 Assigned OBGYN Provider 02/26/20 Shanelle Mcgowan MD [address] [place] [address] 39946 Assigned Surgical Provider 02/26/20 07/29/21 Doris Ricci MD [facility] 2000 [place] [address] Physician Internal Medicine 07/11/20 [place] [address] Assigned PCP 07/25/20 04/22/21 Antonette Castro PA-C [address] [place] [address] 5[address]21 Assigned Heart and Vascular Provider 07/20/20 04/08/21 Yudy Pompa MD 909 [place], [place] 672205 Assigned Cancer Care Provider 08/21/20 Jessi Mcfadden MD 2450 [facility] F282/2A [place], [place] 550254 Resident Psychiatry 11/08/20 12/23/22 Mary Carmen Rodriguez MD [address] [place] [address] [phone] MD Dermatology 11/09/20 Herber Lopez MD [address] [place] [address] 448265 Dermapathology 11/09/20 Yomi Izquierdo DPM [address] [facility] [address] [place], [place] 635537 Assigned Musculoskeletal Provider 12/04/20 06/08/22 Antonette Castro PA-C [address] [place] [address] 902765 Assigned Gastroenterology Provider 04/09/21 07/08/21 Torey Luna MD [address] [place] [address] 736315 Assigned PCP 04/23/21 03/22/23 Herber Lopez MD [address] [place] [address] 448445 Assigned Surgical Provider 07/30/21 11/17/21 Maurilio Carlson MD [address] [place] [address] 583075 Assigned Surgical Provider 11/18/21 11/23/22 Herber Lopez MD [address] [place] [address] 313245 Assigned Surgical Provider 11/24/22 12/21/22 Gloria Elizalde MD [address] [place] [address] 118125 Resident 12/24/22 Olena Smith HIGH SCHOOL SOCIAL STUDIES TUTOR Specialty Clinical Research Monitor Display Associate - Clinical 12/25/22 01/03/23 [place] [address] [place] [address] Assigned Surgical Provider 12/22/22 05/17/23 Mamadou Bowie MD [address] [place] [address] 576855 Assigned PCP 03/23/23 Herber Lopez MD [address] [place] [address] 56833 Assigned Surgical Provider 05/18/23 07/25/24 Makenzie Romano MD [address] [place] [address] 537624 closet builder & Neurology - Child & Adolescent Psychiatry 11/08/23 Shani Stephenson MD [address] [place] [address] 912655 Resident Psychiatry 11/08/23 Yomi Campos, PhD [address] [place] [address] F256 [place], [place] 772874 Assigned Behavioral Health Provider 01/27/24 08/25/24 Ita Newton Specialty Clinical Research Monitor 06/04/24 Kenya Jennings MD 420 [facility] 195 [place] [address] Plastic Surgery 06/04/24 Herber Lopez MD 420 [facility] 98 [place] [address] Assigned Dermatology Provider 07/26/24 Сергей Dumont [facility] Display Associate 08/13/24 Kenya Jennings MD 420 [facility] 195 [place] [address] Assigned Surgical Provider 08/26/24 Jesse Arvizu MD 5775 [place] [address] Assigned Behavioral Health Provider 08/26/24 09/24/24 Luis Dudley MD [address] [place] [address] 955654 Assigned Behavioral Health Provider 09/25/24 10/25/24 Carmen Cole PA-C [address] [address] Assigned Sleep Provider 09/25/24 Racheal Ng MD [address] [address] Assigned Behavioral Health Provider 10/26/24 documented as of this encounter
--- OUTSIDE RECORDS SUMMARY | 2024-10-28 19:20 | XMS_ITS | Encounter Summary ---
Author Organization [facility] Address [address] [place] [address]70 Care Team Providers Care Mattress Inspector Name Role Phone Cindy Ruiz Unavailable [phone] Trevor Espino MD Unavailable [phone] Jaci Whitlock APRN HEAD OF GLOBAL STRATEGIC PARTNERSHIPS Unavailable + Doris Ricci MD Unavailable Yudy Pompa MD Unavailable [phone] Mary Carmen Rodriguez MD Unavailable + Herber Lopez MD Unavailable +[phone] Gloria Elizalde MD Unavailable Mamadou Boiwe MD Primary Care Provider [phone] Mamadou Bowie MD Unavailable Makenzie Romano MD Unavailable [phone] Shani Stephenson MD Unavailable [phone] Ita Newton Unavailable Unavailable Kenya Jennings MD Unavailable +[phone] Herber Lopez MD Unavailable +[phone] Сергей Dumont [facility] Unavailable Unavailable Kenya Jennings MD Unavailable +[phone] Luis Dudley MD Unavailable +[phone] Carmen Cole PA-C Unavailable +[phone] Racheal Ng MD Unavailable Reason for Visit * Reason Onset Date Comments Prior Auth - Medication 09/25/2024 Tranylcy promine Sulfate 10MG tabs- APPROVED Encounter Details Date Type Department Care Team (Late st Contact Info) Description 09/25/2024 Telephone [facility] [address] [facility] [address] [place] [address] Racheal Ng MD [address] [phone] [place] [address] Prior Auth - Medication (Tranylcypromine Sulfate 10MG tabs- APPROVED ) Social History Tobacco Use Types Packs/Day Years [...] PHQ-2 Answer Date Recorded PHQ-2 Score 3 09/29/2024 [facility]ational Stress Questionnaire Answer Date [...] CDT Legal Sex Female 3:58 AM FREIGHT TRUCKER Gender Identity other 11/14/2020 10:33 PM CDT Sexual Orientation Lesbian 06/22/2019 4: 20 AM FREIGHT TRUCKER documented as of this encounter Miscellaneous Notes * Telephone Encounter - Dionte Reeveskendal - 09/29/2024 3:37 PM CDT Images from the original note were not included. Prior Authorization Approval Medication: TRANYLCYPROMINE SULFATE 10 MG PO TABS Authorization Effective Date: 07/01/2024 Authorization Expiration Date: 09/29/2025 Approved Dose/Quantity: Reference #: Insurance Company: [employer] - Expected CoPay: $ CoPay Card Available: Financial Assistance Needed: Which Pharmacy is filling the prescription: [facility] [place] [address] Pharmacy Notified: Yes Patient Notified: Instructed pharmacy to notify patient when script is ready to welding equipment repairer supervisor/ship. * Telephone Encounter - Dionte Reeves - 09/29/2024 10:37 AM CDT Images from the original note were not included. Central Prior Authorization Team PA Initiation Medication: TRANYLCYPROMINE SULFATE 10 MG PO TABS Insurance Company: [employer] - Pharmacy Filling the Rx: [facility] [place] [address] Filling Pharmacy Filling Pharmacy Start Date: 09/29/2024 * Telephone Encounter - Shellie Humphries RN - 09/25/2024 11:13 AM CDT Phonograph Needle Tip Maker spoke to patient regarding this. She notes that she would like it to go to [facility] [place] she will pay out of pocket for the medication to start it. Medication resent to [facility]. * Telephone Encounter - Jeffery Rivero LPN - 09/25/2024 9:13 AM CDT Images from the original note were not included. Prior Authorization Retail Medication Request Medication/Dose: Tranylcypromine Sulfate 10MG tabs Diagnosis and ICD code (if different than what is on RX): New/renewal/insurance change PA/secondary ins. PA: Previously Tried and Failed: see chart Rationale: see chart Insurance Primary: Insurance ID: Secondary (if applicable): Insurance ID: Pharmacy Information (if different than what is on RX) Name: Phone: Fax: Clinic Information Preferred routing pool for dept communication: documented in this encounter Plan of Treatment Upcoming Encounters Date Type Department Care Team (Latest Contact Info) Description 10/29/2024 11:00 AM CDT [facility] [address] [place] [phone] 11/23/2024 1:30 PM CDT Office Visit [facility] [place] [id number] [place] [phone] Melanie Boykin MD [address] [place] [address] 757334 Gloria Elizalde MD [address] [place] [address] 275265 12/03/2024 3:00 PM CDT Office Visit [facility] Psychiatry [facility] [address] [place] [phone] Jesse Arvizu MD [address] [place] [address] 12/15/2024 11:40 AM CDT Ancillary Procedure [facility] Imaging Center [facility] Clinic [address] 1st [place] [phone] Yudy Pompa MD [address] [place] [address] 889065 12/22/2024 11:40 AM CDT Oncology Visit [facility] [address] [place] [phone] Yudy Pompa MD [address] [place] [address] 897155 02/22/2025 12:30 PM CDT Office Visit [facility] [address] [phone] Kenya Jennings MD [address] [place] [address] 190985 03/12/2025 1:00 PM FREIGHT TRUCKER Office Visit [facility] Internal Medicine [address] [phone] Mamadou Bowie MD [address] [place] [address] 027405 03/23/2025 8:00 AM FREIGHT TRUCKER Hospital Encounter [facility] PeriOp Services [address] [place] [address] [phone] Kenya Jennings MD [address] [place] [address] 768385 03/23/2025 8:00 AM FREIGHT TRUCKER - 03/23/2025 12:05 PM FREIGHT TRUCKER Surgery [facility] [address] [place] [address] [phone] Kenya Jennings MD [address] [place] [address] [phone] MASTECTOMY, BILATERAL, SIMPLE, NO nipple grafts. OnQ 03/30/2025 10:00 AM FREIGHT TRUCKER Office Visit [facility] [address] [phone] Lynn Parks APRN [address] 699845 04/16/2025 1:00 PM FREIGHT TRUCKER Office Visit [facility] Internal Medicine [address] [place] [phone] Mamadou Bowie MD [address] [place] [address] 05/03/2025 4:00 PM FREIGHT TRUCKER Office Visit [facility] [address] [place] [phone] Kenya Jennings MD [address] [place] [address] 195 [place], [place] 649515 08/17/2025 12:15 PM CDT Office Visit [facility] Dermat[facility] [address] [place] [phone] Herber Lopez MD [address] [place] [address] 98 [place], [place] 444235 Scheduled Procedures Name Priority Associated Diagnoses Date/Ti me MASTECTOMY, BILATERAL, FOR GENDER AFFIRMATION Gender dysphoria in adult 03/23/2025 8:00 AM FREIGHT TRUCKER documented as of this encounter Goals Goal [...] documented as of this encounter Care Teams Mattress Inspector Relationship Specialty Start Date End Date Mamadou Bowie MD [address] [place] [address] PCP - General 03/18/23 [address] Ru[address] [place], [place] 278830 Resident Internal Medicine 12/07/14 Trevor Espino MD [address] [place] [address] 957505 Urology 05/16/16 Jaci Whitlock APRN HEAD OF GLOBAL STRATEGIC PARTNERSHIPS [address] [place] [address] 395 [place] [address] Nurse Practitioner - Women's Health 12/14/16 Doris Ricci MD [facility] & [address] [address] Physician Internal Medicine 07/11/20 Yudy Pompa MD [address] [place] [address] Assigned Cancer Care Provider 08/21/20 Mary Carmen Rodriguez MD 420 [facility] 98 [place] [address] Dermatology 11/09/20 Herber Lopez MD [address] [place] [address] 98 [place], [place] 069895 Dermapathology 11/09/20 Gloria Elizalde MD [address] [place] [address] [phone] Resident 12/24/22 Mamadou Bowie MD 909 [place], [place] [phone] Assigned PCP 03/23/23 Makenzie Romano MD [address] [phone] [place], [place] [phone] senior court office assistant & Neurology - Child & Adolescent Psychiatry 11/08/23 Shani Stephenson MD 420 [place], [place] [phone] Resident Psychiatry 11/08/23 Ita Newton Specialty Optometrist Assistant 06/04/24 Kenya Jennings MD 420 [facility] 195 [place], [place] 158935 Plastic Surgery 06/04/24 Herber Lopez MD 420 [facility] 98 [place], [place] 278925 Assigned Dermatology Provider 07/26/24 Сергей Dumont [facility] Hydroelectric Machinery Mechanic 08/13/24 Kenya Jennings MD 420 [facility] 195 [place], [place] 328825 Assigned Surgical Provider 08/26/24 Luis Dudley MD 240 [place], [place] 051284 Assigned Behavioral Health Provider 09/25/24 10/25/24 Carmen Cole PA-C [address] 141625 Assigned Sleep Provider 09/25/24 Racheal Ng MD [facility] [address] [address] Assigned Behavioral Health Provider 10/26/24 documented as of this encounter
--- OUTSIDE RECORDS SUMMARY | 2024-10-28 19:20 | XMS_ITS | Encounter Summary ---
Author Organization [facility] Address [address] [place] [address] Care Team Providers Care Multimedia Technician Name Role Phone Eddie Cedillo MD Unavailable Cindy Ruiz Unavailable [phone] Doris Ricci MD Primary Care Provider [phone] Marge Kelley MD Unavailable [phone] Kaitlin Branch MD Unavailable [phone] Kesha Boyd DO Primary Care Provider Trevor Espino MD Unavailable [phone] Jessica Reddy MD Unavailable Melanie Boykin MD Unavailable [phone] Jaci Whitlock APRN CENSUS TAKER Unavailable + Jessica Reddy MD Unavailable Yudy Mathews MD Primary Care Provider [phone] Yudy Mathews MD Unavailable +[phone] Jaci Whitlock TERRAZZO FINISHER CENSUS TAKER Unavailable + Juan M Smith MD, Madhuri Unavailable [phone] Doris Ricci MD Unavailable Yudy Mathews MD Unavailable +[phone] Antonette Castro PA-C Unavailable +[phone] Yudy Pompa MD Unavailable [phone] Jessi Mcfadden MD Unavailable +[phone] Mary Carmen Rodriguez MD Unavailable + Herber Lopez MD Unavailable +[phone] Yomi Izquierdo DPM Unavailable [phone] Torey Luna MD Primary Care Provider [phone] Antonette Castro-C Unavailable +[phone] Torey Luna MD Unavailable +[phone] Herber Lopez MD Unavailable +[phone] Maurilio Carlson MD Unavailable Herber Lopez MD Unavailable +[phone] Gloria Elizalde MD Unavailable [phone] Olena Smith [facility] Unavailable Unavailable Maurilio Carlson MD Unavailable Mamadou Bowie MD Primary Care Provider [phone] AzebMamadou menchaca MD Unavailable Herber Lopez MD Unavailable +[phone] Makenzie Romano MD Unavailable +[phone] Shani Stephenson MD Unavailable [phone] Yomi Campos PhD Unavailable +[phone] Ita Newton Unavailable Unavailable Kenya Jennings MD Unavailable + [phone] Herber Lopez MD Unavailable +[phone] Сергей Dumont [facility] Unavailable Unavailable Kenya Jennings MD Unavailable +[phone] Jesse Arvizu MD Unavailable Luis Dudley MD Unavailable +[phone] Carmen Cole PA-C Unavailable [phone] Racheal Ng MD Unavailable [phone] Encounter Details Date Type Department Care Team (Late st Contact Info) Description 02/20/2016 MyC Medical Advice [facility] 909 [place] [phone] Yudy Pompa MD [address] [place] [address] Social History Tobacco Use Types Packs/Day Years Used Date Smoking Tobacco: Never Alcohol Use Standard Drinks/Week Comments No 0 (1 standard drink = 0.6 oz pur e alcohol) Comments No Sex and Gender Information Value Date Recorded Sex Assigned at Female 11/14/2020 10:33 PM CDT Legal Sex Female 3:58 AM LABORER GOLF COURSE Gender Identity other 11/14/2020 10:33 PM CDT Sexual Orientation Lesbian 06/22/2019 4: 20 AM LABORER GOLF COURSE documented as of this encounter Plan of Treatment Upcoming Encounters Date Type Department Care Team (Latest Contact Info) Description 10/29/2024 11:00 AM CDT [facility] [address] [place] [phone] 11/23/2024 1:30 PM CDT Office Visit [facility] Addiction [address] [place] [address] [phone] Melanie Boykin MD [address] [place] [address] 612314 Gloria Elizalde MD 420 [place], [place] [phone] 12/03/2024 3:00 PM CDT Office [facility] 5775 [facility] [address] [place] [address] [phone] Jesse Arvizu MD [address] [place] [address] 12/15/2024 11:40 AM CDT Ancillary Procedure [facility] Imaging Center CT Clinic [address]st [place] [phone] Yudy Pompa MD [address] [place] [address] 8[address]46 12/22/2024 11:40 AM CDT [facility] [address] [place] [address] [phone] Yudy Pompa MD [address] [place] [address] 02/22/2025 12:30 PM CDT Office Visit [facility] [address] [phone] Kenya Jennings MD [address] [place] [address] 172385 03/12/2025 1:00 PM LABORER GOLF COURSE Office Visit [facility] Internal Medicine [address] [phone] Mamadou Bowie MD [address] [place] [address] 03/23/2025 8:00 AM LABORER GOLF COURSE Hospital Encounter [facility] PeriOp Services [address] [place] [address] [facility] [place] [phone] Kenya Jennings MD [address] [place] [address] 03/23/2025 8:00 AM LABORER GOLF COURSE - 03/23/2025 12:05 PM LABORER GOLF COURSE Surgery [facility] Per[facility] Services [address] [place] [facility] [place] [phone] Kenya Jennings MD [address] [place] [address] [phone] MASTECTOMY, BILATERAL, SIMPLE, NO nipple grafts. OnQ 03/30/2025 10:00 AM LABORER GOLF COURSE Office Visit [facility] [address] [phone] Lynn Parks APRN [address] 511735 04/16/2025 1:00 PM LABORER GOLF COURSE Office Visit [facility] Internal Medicine [address] [phone] Mamadou Bowie MD [address] [place] [address] 05/03/2025 4:00 PM LABORER GOLF COURSE Office Visit [facility] [address] [phone] Kenya Jennings MD [address] [place] [address] 92385 08/17/2025 12:15 PM CDT Office Visit [facility] Dermatology Clinic [address] [phone] Herber Lopez MD [address] [place] [address] 549315 Scheduled Procedures Name Priority Associated Diagnoses Date/Ti me MASTECTOMY, BILATERAL, FOR GENDER AFFIRMATION Gender dysphoria in adult 03/23/2025 8:00 AM LABORER GOLF COURSE documented as of this encounter Visit Diagnoses Not on filedocumented in this encounter Additional Health Concerns Assessment Noted Time PHQ-9 Depression Total Score: 4 01/31/20 16 7:19 AM CDT documented as of this encounter Care Teams Multimedia Technician Relationship Specialty Start Date End Date Doris Ricci MD [facility] [address] [place] [address] PCP - General Internal Medicine 03/01/15 04/11/16 Kesha Boyd DO [address] [phone] [place] [address] PCP - General Family Practice 04/12/16 10/16/18 Yudy Mathews MD [address] [place] [address] PCP - General Internal Medicine 10/17/18 04/18/21 Torey Luna MD [address] [address] PCP - General Internal Medicine 04/19/21 03/17/23 Mamadou Bowie MD [address] [place] [address] PCP - General 03/18/23 Eddie Cedillo MD [facility] [address] [place] [address] Dermatology 10/21/14 11/18/17 Cindy Ruiz [facility] [address] [place] [address] Resident Internal Medicine 12/07/14 Marge Kelley MD [facility] 2450 [facility] F[address] [place], [place] 286994 Resident Psychiatry 12/30/15 02/05/17 Kaitlin Branch MD [address] [place], [place] 3644[address] [place] 0[address]04 food service cashier 01/02/16 10/17/20 Trevor Espino MD [address] [place] [address] 689655 Urology 05/16/16 Jessica Reddy MD [address] 266276 Resident Student in organized health care education/training program 12/10/16 10/16/18 Melanie Boykin MD [address] [place] [address] 441404 food service cashier 12/10/16 11/07/23 Jaci Whitlock APRN CENSUS TAKER [address] [place] [address] 395 [place], [place] 433615 Nurse Practitioner - Women's Health 12/14/16 Jessica Reddy MD [address] 980696 Resident Student in organized health care education/training program 02/06/17 06/26/18 Yudy Mathews MD [facility] [address] Assigned PCP 09/24/19 07/24/20 Jaci Whitlock APRN CNP [address] [place] [address] 395 [place] [address] Assigned OBGYN Provider 02/26/20 Shanelle Mcgowan MD [address] [place] [address] Assigned Surgical Provider 02/26/20 07/29/21 Doris Ricci MD [address] [address] Physician Internal Medicine 07/11/20 [place] [address] Assigned PCP 07/25/20 04/22/21 Antonette Castro PA-C [address] [place] [address] Assigned Heart and Vascular Provider 07/20/20 04/08/21 Yudy Pompa MD [address] [place] [address]9726 Assigned Cancer Care Provider 08/21/20 Jessi Mcfadden MD [address] [place] [address] F282/2A [place] [address] Resident Psychiatry 11/08/20 12/23/22 Mary Carmen Rodriguez MD [address] [address] Dermatology 11/09/20 Herber Lopez MD [address] [address] Dermapathology 11/09/20 Yomi Izquierdo DPM [address] [facility] [address] [place] [address] Assigned Musculoskeletal Provider 12/04/20 06/08/22 Antonette Castro PA-C 9 [place] [address] Assigned Gastroenterology Provider 04/09/21 07/08/21 Torey Luna MD [address] [address] Assigned PCP 04/23/21 03/22/23 Herber Lopez MD [address] [place] [address] Assigned Surgical Provider 07/30/21 11/17/21 Maurilio Carlson MD 909 [place] [address] Assigned Surgical Provider 11/18/21 11/23/22 Herber Lopez MD [address] [address] Assigned Surgical Provider 11/24/22 12/21/22 Gloria Elizalde MD 420 [place] [address] Resident 12/24/22 Olena Simth LSW Specialty Cnc Machine Programmer Tray Worker - Clinical 12/25/22 01/03/23 [place] [address] [place], [place] 993229 Assigned Surgical Provider 12/22/22 05/17/23 Mamadou Bowie MD 909 [place], [place] 980795 Assigned PCP 03/23/23 Herber Lopez MD 420 [facility] 98 [place], [place] 448855 Assigned Surgical Provider 05/18/23 07/25/24 Makenzie Romano MD [address] [address] food service cashier & Neurology - Child & Adolescent Psychiatry 11/08/23 Shani Stephenson MD 420 [place], [place] 773915 Resident Psychiatry 11/08/23 Yomi Campos, PhD [address] [place] [address] Assigned Behavioral Health Provider 01/27/24 08/25/24 Ita Newton Specialty Cnc Machine Programmer 06/04/24 Kenya Jennings MD 420 [facility] 195 [place], [place] [phone] Plastic Surgery 06/04/24 Herber Lopez MD 420 [facility] 98 [place], [place] 317765 Assigned Dermatology Provider 07/26/24 Сергей Dumont, [facility] Tray Worker 08/13/24 Kenya Jennings MD 420 [facility] 195 [place], [place] 774195 Assigned Surgical Provider 08/26/24 Jesse Arvizu MD 5775 [place], [place] [phone] Assigned Behavioral Health Provider 08/26/24 09/24/24 Luis Dudley MD 240 [place], [place] [phone] Assigned Behavioral Health Provider 09/25/24 10/25/24 Carmen Cole PA-C [address] 906185 Assigned Sleep Provider 09/25/24 Racheal Ng MD 2450 [facility] [address] [place] [address] Assigned Behavioral Health Provider 10/26/24 documented as of this encounter
--- OUTSIDE RECORDS SUMMARY | 2024-10-28 19:21 | XMS_ITS | Encounter Summary ---
Author Organization [facility] Address [address] [place] [address] Care Team Providers Care News Commentator Name Role Phone Cindy Ruiz Unavailable [phone] Trevor Espino MD Unavailable [phone] Melanie Boykin MD Unavailable [phone] Jaci Whitlock APRN DOUBLE END PRODUCTION GRINDER Unavailable + Doris Ricci MD Unavailable Yudy Pompa MD Unavailable [phone] Jessi Mcfadden MD Unavailable Mary Carmen Rodriguez MD Unavailable + Herber Lopez MD Unavailable +[phone] Yomi Izquierdo DPEulalia Unavailable +[phone] Torey Luna MD Primary Care Provider Troey Luna MD Unavailable Maurilio Carlson MD Unavailable Herber Lopez MD Unavailable +[phone] Gloria Elizalde MD Unavailable [phone] Olena Smith [employer] Unavailable Unavailable Maurilio Carlson MD Unavailable Mamadou Bowie MD Primary Care Provider [phone] Mamadou Bowie MD Unavailable Herber Lopez MD Unavailable Makenzie Romano MD Unavailable [phone] Shani Stephenson MD Unavailable [phone] Yomi Campos PhD Unavailable Ita Newton Unavailable Unavailable Kenya Jennings MD Unavailable Herber Lopez MD Unavailable [phone] Сергей Dumont [facility] Unavailable Unavailable Kenya Jennings MD Unavailable Jesse Arvizu MD Unavailable Luis Dudley MD Unavailable Carmen Cole PA-C Unavailable Rcaheal Ng MD Unavailable [phone] Encounter Details Date Type Department Care Team (Late st Contact Info) Description 12/12/2021 [facility] [place] [address] [facility] [address] 4th [place] [address] Kenya Jennings MD 420 [facility] 195 [place] [address] Social History Tobacco Use Types Packs/Day Years Used Date Smoking Tobacco: Never Smokeless Tobacco: Never Alcohol Use Standard Drinks/Week Comments No 0 (1 standard drink = 0.6 oz pur e alcohol) PHQ-2 Answer Date Recorded PHQ-2 Score 2 12/12/2021 Comments No Sex and Gender Information Value Date Recorded Sex Assigned at Female 11/14/2020 10:33 PM CDT Legal Sex Female 3:58 AM CO FOUNDER & CEO Gender Identity other 11/14/2020 10:33 PM CDT Sexual Orientation Lesbian 06/22/2019 4: 20 AM CO FOUNDER & CEO COVID-19 Exposure Response Date Recorded In the last 10 days, have yo u been in contact with someone who was confirmed or suspected to have Coronavirus/COVID-19? No / Unsure 12/12/2021 9:38 AM CDT documented as of this encounter Plan of Treatment Upcoming Encounters Date Type Department Care Team (Latest Contact Info) Description 10/29/2024 11:00 AM CDT Virtual Visit [facility] 5775 [facility] [address] [place] [phone] 11/23/2024 1:30 PM CDT [facility] [address] [phone] Melanie Boykin MD 2450 [place], [place] [phone] Gloria Elizalde MD 420 [place], [place] 6[address]95 12/03/2024 3:00 PM CDT Office Visit [facility] [address] [place] [address] [place] [phone] Jesse Arvizu MD [address] [place] [address] 12/15/2024 11:40 AM CDT Ancillary Procedure [facility] [address] 1st [place] [phone] Yudy Pompa MD [address] [place] [address] 12/22/2024 11:40 AM CDT Oncology [facility] [address] [place] [phone] Yudy Pompa MD [address] [place] [address] [phone] 02/22/2025 12:30 PM CDT [facility] [address] [phone] Kenya Jennings MD [address] [place] [address] 03/12/2025 1:00 PM CO FOUNDER & CEO Office Visit [facility] Internal Medicine [address] [phone] Mamadou Bowie MD [address] [place] [address] 03/23/2025 8:00 AM CO FOUNDER & CEO Hospital Encounter [facility] PeriOp Services [address] [place] [address] [phone] Kenya Jennings MD [address] [place] [address] 03/23/2025 8:00 AM CO FOUNDER & CEO - 03/23/2025 12:05 PM CO FOUNDER & CEO Surgery [facility] [address] [place] [phone] Kenya Jennings MD [address] [place] [address] MASTECTOMY, BILATERAL, SIMPLE, NO nipple grafts. OnQ 03/30/2025 10:00 AM CO FOUNDER & CEO [facility] [address] [phone] Lynn Parks APRN [address] [address] 04/16/2025 1:00 PM CO FOUNDER & CEO Office Visit [facility] Internal Medicine [address] [phone] Mamadou Bowie MD [address] [place] [address] 89[address] 05/03/2025 4:00 PM CO FOUNDER & CEO [facility] [address] 4th [place] [phone] Kenya Jennings MD [address] [place] [address] 195 [place], [place] 030825 08/17/2025 12:15 PM CDT [facility] Visit [facility] D[facility] [address] 3rd [place] [phone] Herber Lopez MD [address] [place] [address] 98 [place], [place] 130345 Scheduled Procedures Name Priority Associated Diagnoses Date/Ti me MASTECTOMY, BILATERAL, FOR GENDER AFFIRMATION Gender dysphoria in adult 03/23/2025 8:00 AM CO FOUNDER & CEO documented as of this encounter Visit Diagnoses Not on filedocumented in this encounter Additional Health Concerns Assessment Noted Time PHQ-9 Depression Total Score: 5 12/12/19 22 3:28 PM CDT documented as of this encounter Care Teams News Commentator Relationship Specialty Start Date End Date Torey Luna MD [address] [place] [address] 28171 PCP - General Internal Medicine 04/19/21 03/17/23 Mamadou Bowie MD [address] [place] [address] PCP - General 03/18/23 Cindy Ruiz [place] [place] [address] Resident Internal Medicine 12/07/14 Trevor Espino MD 9 [place] [address] Urology 05/16/16 Melanie Boykin MD [address] [place] [address] [phone] vacuum bottle assembler 12/10/16 11/07/23 Jaci Whitlock APRN DOUBLE END PRODUCTION GRINDER [address] [place] [address] 898345 Nurse Practitioner - Women's Health 12/14/16 Doris Ricci MD [facility] & [address] [address] Physician Internal Medicine 07/11/20 Yudy Pompa MD [address] [place] [address] 454505 Assigned Cancer Care Provider 08/21/20 Jessi Mcfadden MD [address] [place] [address] F282/2A [place], [place] 360714 Resident Psychiatry 11/08/20 12/23/22 Mary Carmen Rodriguez MD [address] [place] [address] 98 [place], [place] 022115 Dermatology 11/09/20 Herber Lopez MD 420 [facility] 98 [place], [place] 324525 Dermapathology 11/09/20 Yomi Izquierdo DPM 16441 [facility] 300 [place] [address] Assigned Musculoskeletal Provider 12/04/20 06/08/22 Torey Luna MD [address] [place] [address] Assigned PCP 04/23/21 03/22/23 Maurilio Carlson MD [address] [place] [address] 337365 Assigned Surgical Provider 11/18/21 11/23/22 Herber Lopez MD [address] [place] [address] 958145 Assigned Surgical Provider 11/24/22 12/21/22 Gloria Elizalde MD [address] [place] [address] 174735 Resident 12/24/22 Olena Smith LSW Specialty Warehouse Person Wind Energy Technician - Clinical 12/25/22 01/03/23 [place] [address] [place] [address] Assigned Surgical Provider 12/22/22 05/17/23 Mamadou Bowie MD [address] [place] [address] 307015 Assigned PCP 03/23/23 Herber Lopez MD [address] [address] Assigned Surgical Provider 05/18/23 07/25/24 Makenzie Romano MD [address] [place] [address] [phone] vacuum bottle assembler & Neurology - Child & Adolescent Psychiatry 11/08/23 Shani Stephenson MD 420 [place], [place] 917445 Resident Psychiatry 11/08/23 Yomi Campos, PhD [address] [place] [address] [phone] Assigned Behavioral Health Provider 01/27/24 08/25/24 Ita Newton Specialty Warehouse Person 06/04/24 Kenya Jennings MD [address] [place] [address] 236985 Plastic Surgery 06/04/24 Herber Lopez MD [address] [place] [address] 896335 Assigned Dermatology Provider 07/26/24 Сергей Dumont, [facility] Wind Energy Technician 08/13/24 Kenya Jennings MD [address] [place] [address] 182435 Assigned Surgical Provider 08/26/24 Jesse Arvizu MD 5775 [place] [address] Assigned Behavioral Health Provider 08/26/24 09/24/24 Luis Dudley MD [address] [place] [address] Assigned Behavioral Health Provider 09/25/24 10/25/24 Carmen Cole PA-C [address] [place] [address] Assigned Sleep Provider 09/25/24 Racheal Ng MD [address] F[address] [place] [address] Assigned Behavioral Health Provider 10/26/24 documented as of this encounter
--- OUTSIDE RECORDS SUMMARY | 2024-10-28 19:21 | XMS_ITS | Encounter Summary ---
Author Organization [employer] Address [address] [place] [address] Care Team Providers Care Warp Spinner Name Role Phone RichielelaCindy Unavailable [phone] Kaitlin Branch MD Unavailable [phone] Trevor Espino MD Unavailable [phone] Melanie Boykin MD Unavailable [phone] Jaci Whitlock ENGINEERING DESIGN MANAGER PM HEAD COOK Unavailable + Yudy Mathews MD Primary Care Provider [phone] Yudy Mathews MD Unavailable [phone] Jaci Whitlock ENGINEERING DESIGN MANAGER PM HEAD COOK Unavailable + Juan M Smith MD, Madhuri Unavailable [phone] Doris Ricci MD Unavailable [phone] Yudy Mathews MD Unavailable +[phone] Antonette Castro PA-C Unavailable +[phone] Yudy Pompa MD Unavailable [phone] Jessi Mcfadden MD Unavailable + [phone] Mary Carmen Rodriguez MD Unavailable + Herber Lopez MD Unavailable +[phone] Yomi Izquierdo DPM Unavailable [phone] Torey Luna MD Primary Care Provider + [phone] Antonette Castro PA-C Unavailable +[phone] Torey Luna MD Unavailable +[phone] Herber Lopez MD Unavailable +[phone] Maurilio Carlson MD Unavailable Herber Lopez MD Unavailable +[phone] Gloria Elizalde MD Unavailable [phone] Olena Smith [facility] Unavailable Unavailable Maurilio Carlson MD Unavailable Mamadou Bowie MD Primary Care Provider [phone] AzebMamadou menchaca MD Unavailable Herber Lopez MD Unavailable +[phone] Makenzie Romano MD Unavailable [phone] Shani Stephenson MD Unavailable [phone] Yomi Campos PhD Unavailable +[phone] Ita Newton Unavailable Unavailable Kenya Jennings MD Unavailable + [phone] Herber Lopez MD Unavailable +[phone] Сергей Dumont [facility] Unavailable Unavailable Kenya Jennings MD Unavailable + [phone] Jesse Arvizu MD Unavailable Luis Dudley MD Unavailable [phone] Carmen Cole-C Unavailable +[phone] Racheal Ng MD Unavailable [phone] Encounter Details Date Type Department Care Team (Late st Contact Info) Description 03/27/[address] [facility] 909 [facility] [place] [address] Rhianna Berry, [facility] [address] [place] [address] [facility] 207 [place] [address] Social History Tobacco Use Types Packs/Day Years Used Date Smoking Tobacco: Never Smokeless Tobacco: Never Alcohol Use Standard Drinks/Week Comments No 0 (1 standard drink = 0.6 oz pur e alcohol) PHQ-2 Answer Date Recorded PHQ-2 Score 0 05/13/2018 Comments No Sex and Gender Information Value Date Recorded Sex Assigned at Female 11/14/2020 10:33 PM CDT Legal Sex Female 3:58 AM POTATO INSPECTOR Gender Identity other 11/14/2020 10:33 PM CDT Sexual Orientation Lesbian 06/22/2019 4: 20 AM POTATO INSPECTOR documented as of this encounter Miscellaneous Notes * Telephone Encounter - Rhianna Berry APRN CNS - 03/26/2019 12:12 PM CST Pulmonary Nodule Conference Patient Name: Gabriela [...] CT.. Patient is reluctant to have surgery. Specific Question: Is there a solid component to the RLL ggo and how concerning is it? Ok to just do surveillance of ASHVIN nodule? Pertinent Histology: None Referring Physician: Dr. Shanelle Mcgowan The patient's case was presented at the multidisciplinary conference for the above noted reason. There was a consensus recommendation for the following actions: The group agrees that the nodule called out as a ggo does in fact appear to be a solid nodule. The group feels that as the nodules have been stable, it is reasonable to continue with surveillance. The recommendation is a follow up chest CT in 6 months. Case Lead: Rhianna Berry Interventional Radiology Staff Present: N/A TO INSPECTOR documented in this encounter Plan of Treatment Upcoming Encounters Date Type Department Care Team (Latest Contact Info) Description 10/29/2024 11:00 AM CDT Virtual Visit [facility] [address] [facility] [address] [place] [phone] 11/23/2024 1:30 PM CDT Office Visit [facility] Mental Health & Addiction [address] F275 [address] [phone] Melanie Boykin MD 2450 [place], [place] 768764 Gloria Elizalde MD [address] [place] [address] 334455 12/03/2024 3:00 PM CDT Office Visit [facility] [address] [phone] Jsese Arvizu MD 5775 [place] [address] 12/15/2024 11:40 AM CDT Ancillary Procedure [facility] Imaging Center CT Clinic [address] 1st [place] [phone] Yudy Pompa MD [address] [place] [address] 545485 12/22/2024 11:40 AM CDT Oncology Visit [facility] [address] [place] [address] [phone] Yudy Pompa MD [address] [place] [address] 175455 02/22/2025 12:30 PM CDT Office Visit [facility] Plastic and Reconstructive Surgery Clinic [address] 4th [place] [phone] Kenya Jennings MD [address] [place] [address] 03/12/2025 1:00 PM POTATO INSPECTOR Office Visit [facility] Internal Medicine [address] [phone] Mamadou Bowie MD [address] [place] [address] 03/23/2025 8:00 AM POTATO INSPECTOR Hospital Encounter [facility] PeriOp Services [address] [place] [address] [phone] Kenya Jennings MD [address] [place] [address] 03/23/2025 8:00 AM POTATO INSPECTOR - 03/23/2025 12:05 PM POTATO INSPECTOR Surgery [facility] PeriOp Services [address] [place] [address] [phone] Kenya Jennings MD [address] [place] [address] 597505 MASTECTOMY, BILATERAL, SIMPLE, NO nipple grafts. OnQ 03/30/2025 10:00 AM POTATO INSPECTOR Office Visit [facility] Plastic and Reconstructive Surgery Clinic [address] [phone] Lynn Parks APRN [address] [address] 04/16/2025 1:00 PM POTATO INSPECTOR Office Visit [facility] Internal Medicine [address] [phone] Mamadou Bowie MD [address] [place] [address] 05/03/2025 4:00 PM POTATO INSPECTOR Office Visit [facility] Plastic and Reconstructive Surgery Clinic [place] [address] [place] [address] 4th [place] [phone] Kenya Jennings MD 420 [facility] 195 [place], [place] 373385 08/17/2025 12:15 PM CDT Office Visit [facility] Dermatology Clinic [place] [address] [place] [address] 3rd [place] [phone] Herber Lopez MD 420 [facility] 98 [place], [place] 434645 Scheduled Procedures Name Priority Associated Diagnoses Date/Ti me MASTECTOMY, BILATERAL, FOR GENDER AFFIRMATION Gender dysphoria in adult 03/23/2025 8:00 AM POTATO INSPECTOR documented as of this encounter Visit Diagnoses Not on filedocumented in this encounter Additional Health Concerns Assessment Noted Time PHQ-9 Depression Total Score: 5 11/11/19 19 12:38 PM CDT documented as of this encounter Care Teams Warp Spinner Relationship Specialty Start Date End Date Yudy Mathews MD [address] [place] [address] 395 [place] [address] PCP - General Internal Medicine 10/17/18 04/18/21 Torey Luna MD [address] [place] [address]16 PCP - General Internal Medicine 04/19/21 03/17/23 Mamadou Bowie MD [address] [place] [address] 538155 PCP - General 03/18/23 [address] Ru[place] [place] [address] Resident Internal Medicine 12/07/14 Kaitlin Branch MD [address] [place], [place] 897[address]82 [place], [place] 008664 engineer internship 01/02/16 10/17/20 Trevor Espino MD [address] [place] [address] 728975 Urology 05/16/16 Melanie Boykin MD [address] [place] [address] 509904 engineer internship 12/10/16 11/07/23 Jaci Whitlock APRN PM HEAD COOK [address] [place] [address] 130215 Nurse Practitioner - Women's Health 12/14/16 Yudy Mathews MD [facility] [place] [address] Assigned PCP 09/24/19 07/24/20 Jaci Whitlock APRN PM HEAD COOK [address] [place] [address]75 Assigned OBGYN Provider 02/26/20 Shanelle Mcgowan MD [address] [place] [address] 816545 Assigned Surgical Provider 02/26/20 07/29/21 Doris Ricci MD [facility] & [address] [address] Physician Internal Medicine 07/11/20 Yudy Mathews MD [facility] [place] [address] Assigned PCP 07/25/20 04/22/21 Antonette Castro PA-C 9 [place] [address] Assigned Heart and Vascular Provider 07/20/20 04/08/21 Yudy Pompa MD [address] [place] [address] 58997 Assigned Cancer Care Provider 08/21/20 Jessi Mcfadden MD [address] [place] [address] F282/2A [place] [address] Resident Psychiatry 11/08/20 12/23/22 Mary Carmen Rodriguez MD [address] [place] [address] Dermatology 11/09/20 Herber Lopez MD [address] [place] [address] Dermapathology 11/09/20 Yomi Izquierdo DPM 33894 [facility] 300 [place] [address] Assigned Musculoskeletal Provider 12/04/20 06/08/22 Antonette Castro PA-C [address] [place] [address] 47936 Assigned Gastroenterology Provider 04/09/21 07/08/21 Torey Luna MD [address] [place] [address] 74[address] Assigned PCP 04/23/21 03/22/23 Herber Lopez MD [address] [place] [address] 15008 Assigned Surgical Provider 07/30/21 11/17/21 Maurilio Carlson MD [address] [place] [address] 9[address]24 Assigned Surgical Provider 11/18/21 11/23/22 Herber Lopez MD [address] [place] [address] 64889 Assigned Surgical Provider 11/24/22 12/21/22 Gloria Elizalde MD [address] [place] [address] Resident 12/24/22 Olena Smith LSW Specialty Chrome Plater Helper Watchstander - Clinical 12/25/22 01/03/23 [place] [address] [place] [address] Assigned Surgical Provider 12/22/22 05/17/23 Mamadou Bowie MD [address] [place] [address] 12548 Assigned PCP 03/23/23 Herber Lopez MD 420 [facility] 98 [place] [address] Assigned Surgical Provider 05/18/23 07/25/24 Makenzie Romano MD [address] [place] 9507256 [place], [place] 578854 engineer internship & Neurology - Child & Adolescent Psychiatry 11/08/23 Shani Stephenson MD 420 [place], [place] 396765 Resident Psychiatry 11/08/23 Yomi Campos, PhD [facility] [address] 105134 Assigned Behavioral Health Provider 01/27/24 08/25/24 Ita Newton Specialty Chrome Plater Helper 06/04/24 Kenya Jennings MD 420 [facility] 195 [place], [place] 882575 Plastic Surgery 06/04/24 Herber Lopez MD [address] [address] Assigned Dermatology Provider 07/26/24 Сергей Dumont [facility] Watchstander 08/13/24 Kenya Jennings MD [address] 786355 Assigned Surgical Provider 08/26/24 Jesse Arvizu MD 5775 [place] [address] Assigned Behavioral Health Provider 08/26/24 09/24/24 Luis Dudley MD 240 [place], [place] 435484 Assigned Behavioral Health Provider 09/25/24 10/25/24 Carmen Cole PA-C 6363 [facility] [address]INE 103 [place], [place] 914695 Assigned Sleep Provider 09/25/24 Racheal Ng MD 2450 [facility] F282 [place], [place] 707124 Assigned Behavioral Health Provider 10/26/24 documented as of this encounter
--- OUTSIDE RECORDS SUMMARY | 2024-10-28 19:21 | XMS_ITS | Encounter Summary ---
Author Organization [facility] Address [address] [place] [address] 17355 Care Team Providers Care Telepathist Name Role Phone Cindy Ruiz Unavailable [phone] Trevor Espino MD Unavailable [phone] Melanie Boykin MD Unavailable [phone] Jaci Whitlock APRN WAVE SOLDER OFFBEARER Unavailable + Doris Ricci MD Unavailable +[phone] Yudy Pompa MD Unavailable [phone] Jessi Mcfadden MD Unavailable Mary Carmen Rodriguez MD Unavailable + Herber Lopez MD Unavailable +[phone] Yomi Izquierdo DPEulalia Unavailable +[phone] Torey Luna MD Primary Care Provider [phone] Torey Luna MD Unavailable Maurilio Carlson MD Unavailable Herber Lopez MD Unavailable +[phone] Gloria Elizalde MD Unavailable [phone] Olena Smith STAFF INTERPRETER Unavailable Unavailable Maurilio Carlson MD Unavailable Mamadou Bowie MD Primary Care Provider [phone] Mamadou Bowie MD Unavailable Herber Lopez MD Unavailable +[phone] Makenzie Romano MD Unavailable [phone] Shani Stephenson MD Unavailable Andres Yomi Alek PhD Unavailable +[phone] Ita Newton Unavailable Unavailable Kenya Jennings MD Unavailable +[phone] Herber Lopez MD Unavailable +[phone] Сергей Dumont [facility] Unavailable Unavailable Kenya Jennings MD Unavailable +[phone] Jesse Arvizu MD Unavailable Luis Dudley MD Unavailable +[phone] Carmen Cole PA-C Unavailable +[phone] Racheal Ng MD Unavailable + [phone] Encounter Details Date Type Department Care Team (Late st Contact Info) Description 12/25/2021 MyC Medical Advice UR PREOP/PHASE II [address] [place] [address] Yoselin Fowler Social History Tobacco Use [...] PM CDT Legal Sex Female 3:58 AM VOICE NETWORK ADMINISTRATOR Gender Identity other 11/14/2020 10:33 PM CDT Sexual Orientation Lesbian 06/22/2019 4: 20 AM VOICE NETWORK ADMINISTRATOR COVID-19 Exposure Response Date Recorded In the last 10 days, have yo u been in contact with someone who was confirmed or suspected to have Coronavirus/COVID-19? No / Unsure 12/12/2021 9:38 AM CDT documented as of this encounter Plan of Treatment Upcoming Encounters Date Type Department Care Team (Latest Contact Info) Description 10/29/2024 11:00 AM CDT Virtual Visit Physicians Psych[facility] [address] [facility] [address] [place] [phone] 11/23/2024 1:30 PM CDT Office Visit [facility] Mental Health & Addiction [address] F[address] [phone] Melanie Boykin MD [address] [place] [address] [phone] Gloria Elizalde MD [address] [place] [address] 486105 12/03/2024 3:00 PM CDT Office Visit [facility] Psych[facility] [address] [place] [address] [place] [phone] Jesse Arvizu MD [address] [place] [address] 12/15/2024 11:40 AM CDT [address] [facility] Imaging Center [facility] Clinic [address] 1st [place] [phone] Yudy Pompa MD [address] [place] [address] 666955 12/22/2024 11:40 AM CDT Oncology Visit [facility] [address] [place] [phone] Yudy Pompa MD [address] [place] [address] 990865 02/22/2025 12:30 PM CDT Office Visit [facility] Plastic and Reconstructive Surgery Clinic [address] 4[address] [place] [phone] Kenya Jennings MD [address] [place] [address] 03/12/2025 1:00 PM VOICE NETWORK ADMINISTRATOR Office Visit [facility] Internal Medicine [address] [phone] Mamadou Bowie MD [address] [place] [address] 03/23/2025 8:00 AM VOICE NETWORK ADMINISTRATOR Hospital Encounter [facility] PeriOp Services [address] [place] [address] [phone] Kenya Jennings MD [address] [place] [address] 03/23/2025 8:00 AM VOICE NETWORK ADMINISTRATOR - 03/23/2025 12:05 PM VOICE NETWORK ADMINISTRATOR Surgery [facility] [address] [place] [phone] Kenya Jennings MD [address] [place] [address] [phone] MASTECTOMY, BILATERAL, SIMPLE, NO nipple grafts. OnQ 03/30/2025 10:00 AM VOICE NETWORK ADMINISTRATOR Office Visit [facility] Plastic and Reconstructive Surgery Clinic [address] [phone] Lynn Parks APRN [address] [address] 04/16/2025 1:00 PM VOICE NETWORK ADMINISTRATOR Office Visit [facility] Internal Medicine [address] [phone] Mamadou Bowie MD [address] [place] [address] 05/03/2025 4:00 PM VOICE NETWORK ADMINISTRATOR Office Visit [facility] Plastic and Reconstructive Surgery [facility] [place] [address] [place] [address] 4th [place] [phone] Kenya Jennings MD 420 [facility] 195 [place], [place] 500905 08/17/2025 12:15 PM CDT Office Visit [facility] Dermatology Clinic [place] [address] [place] [address] 3rd [place] [phone] Herber Lopez MD 420 [facility] 98 [place], [place] [phone] Scheduled Procedures Name Priority Associated Diagnoses Date/Ti me MASTECTOMY, BILATERAL, FOR GENDER AFFIRMATION Gender dysphoria in adult 03/23/2025 8:00 AM VOICE NETWORK ADMINISTRATOR documented as of this encounter Visit Diagnoses Not on filedocumented in this encounter Additional Health Concerns Assessment Noted Time PHQ-9 Depression Total Score: 5 12/12/19 22 3:28 PM CDT documented as of this encounter Care Teams Telepathist Relationship Specialty Start Date End Date Torey Luna MD [address] [place] [address] [phone] PCP - General Internal Medicine 04/19/21 03/17/23 Mamadou Bowie MD [address] [place] [address] 33642 PCP - General 03/18/23 Cindy Ruiz [place] [address] Resident Internal Medicine 12/07/14 Trevor Espino MD [address] [place] [address] 633455 Urology 05/16/16 Melanie Boykin MD [address] [place] [address] 320444 manufacturers representative 12/10/16 11/07/23 Jaci Whitlock APRN WAVE SOLDER OFFBEARER [address] [place] [address] [phone] Nurse Practitioner - Women's Health 12/14/16 Doris Ricci MD [facility] & [address] [address] Physician Internal Medicine 07/11/20 Yudy Pompa MD [address] [place] [address] 928405 Assigned Cancer Care Provider 08/21/20 Jessi Mcfadden MD [address] [place] [address] F282/2A [place], [place] 082494 Resident Psychiatry 11/08/20 12/23/22 Mary Carmen Rodriguez MD [address] [place] [address] 447155 Dermatology 11/09/20 Herber Lopez MD [address] [place] [address] 727975 Dermapathology 11/09/20 Yomi Izquierdo DPM 85191 [facility] 300 [place] [address] Assigned Musculoskeletal Provider 12/04/20 06/08/22 Toery Luna MD [address] [place] [address] 80723 Assigned PCP 04/23/21 03/22/23 Maurilio Carlson MD [address] [place] [address] 52847 Assigned Surgical Provider 11/18/21 11/23/22 Herber Lopez MD [address] [place] [address] 57088 Assigned Surgical Provider 11/24/22 12/21/22 Gloria Elizalde MD [address] [place] [address] 37795 Resident 12/24/22 Olena Smith STAFF INTERPRETER Specialty Generalist Nut Sorter - Clinical 12/25/22 01/03/23 [place] [address] [place] [address] Assigned Surgical Provider 12/22/22 05/17/23 Mamadou Bowie MD [address] [place] [address] 84057 Assigned PCP 03/23/23 Herber Lopez MD [address] [place] [address] 71519 Assigned Surgical Provider 05/18/23 07/25/24 Makenzie Romano MD [address] [address] manufacturers representative & Neurology - Child & Adolescent Psychiatry 11/08/23 Shani Stephenson MD 420 [place], [place] 823175 Resident Psychiatry 11/08/23 Yomi Campos, PhD [address] [place] [address] 394034 Assigned Behavioral Health Provider 01/27/24 08/25/24 Ita Newton Specialty Generalist 06/04/24 Kenya Jennings MD 420 [facility] 195 [place], [place] 690365 Plastic Surgery 06/04/24 Herber Lopez MD 420 [facility] 98 [place], [place] 793805 Assigned Dermatology Provider 07/26/24 Сергей Dumont, [facility] Nut Sorter 08/13/24 Kenya Jennings MD [address] [place] [address] 195 [place], [place] 546255 Assigned Surgical Provider 08/26/24 Jesse Arvizu MD 5775 [place] [address] Assigned Behavioral Health Provider 08/26/24 09/24/24 Luis Dudley MD [address] [place] [address] 90609 Assigned Behavioral Health Provider 09/25/24 10/25/24 Carmen Cole PA-C [address] [facility] [address] [place] [address] Assigned Sleep Provider 09/25/24 Racheal Ng MD [address] [facility] [address] [address] [place], [place] 424374 Assigned Behavioral Health Provider 10/26/24 documented as of this encounter
--- OUTSIDE RECORDS SUMMARY | 2024-10-28 19:21 | XMS_ITS | Encounter Summary ---
Author Organization [facility] Address [address] [place] [address] Care Team Providers Care Information Management Manager Name Role Phone Cindy Ruiz Unavailable [phone] Trevor Espino MD Unavailable [phone] Melanie Boykin MD Unavailable [phone] Jaci Whitlock APRN BAND SINGER Unavailable + Doris Ricci MD Unavailable Yudy Pompa MD Unavailable [phone] Jessi Mcfadden MD Unavailable Mary Carmen Rodriguez MD Unavailable + Herber Lopez MD Unavailable [phone] Yomi Izquierdo DPEulalia Unavailable +[phone] Torey Luna MD Primary Care Provider [phone] Torey Luna MD Unavailable [phone] Maurilio Carlson MD Unavailable Herber Lopez MD Unavailable [phone] Gloria Elizalde MD Unavailable [phone] Olena Smith ENVIRONMENTAL SERVICES TECHNICIAN Unavailable Unavailable Maurilio Carlson MD Unavailable Mamadou Bowie MD Primary Care Provider [phone] Mamadou Bowie MD Unavailable Herber Lopez MD Unavailable [phone] Makenzie Romano MD Unavailable Shani Stephenson MD Unavailable [phone] Andres Yomi Alek PhD Unavailable +[phone] Ita Newton Unavailable Unavailable Kenya Jennings MD Unavailable +[phone] Herber Lopez MD Unavailable +[phone] Сергей Dumont [facility] Unavailable Unavailable Kenya Jennings MD Unavailable [phone] Jesse Arvizu MD Unavailable Luis Dudley MD Unavailable [phone] Carmen Cole PA-C Unavailable +[phone] Racheal Ng MD Unavailable + [phone] Encounter Details Date Type Department Care Team (Late st Contact Info) Description 01/04/2022 [facility] Cancer Clinic 9 [place] [address] Jeniffer Rogers Social History Tobacco [...] PM CDT Legal Sex Female 3:58 AM ENGINEERING PSYCHOLOGIST Gender Identity other 11/14/2020 10:33 PM CDT Sexual Orientation Lesbian 06/22/2019 4: 20 AM ENGINEERING PSYCHOLOGIST COVID-19 Exposure Response Date Recorded In the last 10 days, have yo u been in contact with someone who was confirmed or suspected to have Coronavirus/COVID-19? No / Unsure 12/12/2021 9:38 AM CDT documented as of this encounter Plan of Treatment Upcoming Encounters Date Type Department Care Team (Latest Contact Info) Description 10/29/2024 11:00 AM CDT Virtual Visit Physicians Psych[facility] [address] [facility] [address] [place] [phone] 11/23/2024 1:30 PM CDT Office Visit [facility] Mental Health & Addiction [address] F275 [address] [phone] Melanie Boykin MD 2450 [place], [place] 644964 Gloria Elizalde MD 420 [place], [place] 458465 12/03/2024 3:00 PM CDT Office Visit [facility] [address] [facility] [address] [place] [phone] Jesse Arvizu MD [address] [place] [address] 620[address] 12/15/2024 11:40 AM CDT Ancillary Procedure [facility] Imaging Center CT Clinic [address] 1st [place] [phone] Yudy Pompa MD [address] [place] [address] 834975 12/22/2024 11:40 AM CDT Oncology Visit [facility] [address] [place] [address] [phone] Yudy Pompa MD [address] [place] [address] 327665 02/22/2025 12:30 PM CDT Office Visit [facility] Plastic and Reconstructive Surgery Clinic [address] 4th [place] [phone] Kenya Jennings MD [address] [place] [address] 03/12/2025 1:00 PM ENGINEERING PSYCHOLOGIST Office Visit [facility] Internal Medicine [address] [phone] Mamadou Bowie MD [address] [place] [address] 363245 03/23/2025 8:00 AM ENGINEERING PSYCHOLOGIST Hospital Encounter [facility] PeriOp Services [address] [place] [address] [phone] Kenya Jennings MD [address] [place] [address] 7[address] 03/23/2025 8:00 AM ENGINEERING PSYCHOLOGIST - 03/23/2025 12:05 PM ENGINEERING PSYCHOLOGIST Surgery [facility] Per[facility]Op Services [address] [place] [address] [phone] Kenya Jennings MD [address] [place] [address] 218585 MASTECTOMY, BILATERAL, SIMPLE, NO nipple grafts. OnQ 03/30/2025 10:00 AM ENGINEERING PSYCHOLOGIST Office Visit [facility] Plastic and Reconstructive Surgery Clinic [address] [phone] Lynn Parks APRN [address] [address] 04/16/2025 1:00 PM ENGINEERING PSYCHOLOGIST Office Visit [facility] Internal Medicine [address] [phone] Mamadou Bowie MD [address] [place] [address] 833695 05/03/2025 4:00 PM ENGINEERING PSYCHOLOGIST Office Visit [facility] Plastic and Reconstructive Surgery Clinic [place] [address] [place] [address] 4th [place] [phone] Kenya Jennings MD 420 [facility] 195 [place], [place] 982915 08/17/2025 12:15 PM CDT Office Visit [facility] Dermatology Clinic [place] [address] [place] [address] 3rd [place] [phone] Herber Lopez MD 420 [facility] 98 [place], [place] 716855 Scheduled Procedures Name Priority Associated Diagnoses Date/Ti me MASTECTOMY, BILATERAL, FOR GENDER AFFIRMATION Gender dysphoria in adult 03/23/2025 8:00 AM ENGINEERING PSYCHOLOGIST documented as of this encounter Visit Diagnoses Not on filedocumented in this encounter Additional Health Concerns Assessment Noted Time PHQ-9 Depression Total Score: 5 12/12/19 22 3:28 PM CDT documented as of this encounter Care Teams Information Management Manager Relationship Specialty Start Date End Date Torey Luna MD [address] [place] [address] 568365 PCP - General Internal Medicine 04/19/21 03/17/23 Mamadou Bowie MD [address] [place] [address] 42048 PCP - General 03/18/23 Cindy Ru[place] [place] [address] Resident Internal Medicine 12/07/14 Trevor Espino MD [address] [place] [address] [phone] Urology 05/16/16 Melanie Boykin MD [address] [place] [address] 322384 mobile home servicer 12/10/16 11/07/23 Jaci Whitlock APRN BAND SINGER [address] [place] [address] [phone] Nurse Practitioner - Women's Health 12/14/16 Doris Ricci MD [facility] & [address] [address] Physician Internal Medicine 07/11/20 Yudy Pompa MD [address] [place] [address] 743975 Assigned Cancer Care Provider 08/21/20 Jessi Mcfadden MD [address] [place] [address] F282/2A [place], [place] 868044 Resident Psychiatry 11/08/20 12/23/22 Mary Carmen Rodriguez MD [address] [place] [address] 946025 Dermatology 11/09/20 Herber Lopez MD [address] [place] [address] 288595 Dermapathology 11/09/20 Yomi Izquierdo DPM [address]228 [facility] 300 [place] [address] Assigned Musculoskeletal Provider 12/04/20 06/08/22 Torey Luna MD [address] [place] [address]25 Assigned PCP 04/23/21 03/22/23 Maurilio Carlson MD [address] [place] [address] 47412 Assigned Surgical Provider 11/18/21 11/23/22 Herber Lopez MD [address] [place] [address] 50822 Assigned Surgical Provider 11/24/22 12/21/22 Gloria Elizalde MD [address] [place] [address] Resident 12/24/22 Olena Smith [facility] Specialty Printing Shop Supervisor Pasting Machine Offbearer - Clinical 12/25/22 01/03/23 [place] [address] [place] [address] Assigned Surgical Provider 12/22/22 05/17/23 Mamadou Bowie MD [address] [place] [place] [address] 01694 Assigned PCP 03/23/23 Herber Lopez MD [address] [place] [address] 31781 Assigned Surgical Provider 05/18/23 07/25/24 Makenzie Romano MD [address] [address] mobile home servicer & Neurology - Child & Adolescent Psychiatry 11/08/23 Shani Stephenson MD 420 [place], [place] 932735 Resident Psychiatry 11/08/23 Yomi Campos, PhD [address] [place] [address]671 Assigned Behavioral Health Provider 01/27/24 08/25/24 Ita Newton Specialty Printing Shop Supervisor 06/04/24 Kenya Jennings MD 420 [facility] 195 [place], [place] 380375 Plastic Surgery 06/04/24 Herber Lopez MD 420 [facility] 98 [place], [place] 589085 Assigned Dermatology Provider 07/26/24 Сергей Dumont, [facility] Pasting Machine Offbearer 08/13/24 Kenya Jennings MD 420 [facility] 195 [place], [place] 378585 Assigned Surgical Provider 08/26/24 Jesse Arvizu MD 5775 [place] [address] Assigned Behavioral Health Provider 08/26/24 09/24/24 Luis Dudley MD 240 [place] [address] Assigned Behavioral Health Provider 09/25/24 10/25/24 Carmen Cole PA-C [address] [place] [address] Assigned Sleep Provider 09/25/24 Racheal Ng MD [address] [facility] [address] [place], [place] 883074 Assigned Behavioral Health Provider 10/26/24 documented as of this encounter
--- OUTSIDE RECORDS SUMMARY | 2024-10-28 19:21 | XMS_ITS | Encounter Summary ---
Author Organization [facility] Address [address] [place] [address] 495[address] Care Team Providers Care Boiler Fireman Name Role Phone RichielelaCindy Unavailable +[phone] Kaitlin Branch MD Unavailable +[phone] Kesha Boyd DO Primary Care Provider + [phone] Trevor Espino MD Unavailable +[phone] Jessica Reddy MD Unavailable Melanie Boykin MD Unavailable +[phone] Jaci Whitlock APRN CONTROL VALVE TECHNICIAN Unavailable + Yudy Mathews MD Primary Care Provider +[phone] Yudy Mathews MD Unavailable +[phone] Jaci Whitlock APRN CONTROL VALVE TECHNICIAN Unavailable + Juan M Smith MD, Madhuri Unavailable +[phone] Doris Ricci MD Unavailable +[phone] Yudy Mathews MD Unavailable +[phone] Antonette Castro PA-C Unavailable +[phone] Yudy Pompa MD Unavailable +[phone] Jessi Mcfadden MD Unavailable + [phone] Mary Carmen Rodriguez MD Unavailable + Herber Lopez MD Unavailable +[phone] Yomi Izquierdo DPM Unavailable +[phone] Torey Luna MD Primary Care Provider +[phone] Antonette Castro PA-C Unavailable +[phone] Torey Luna MD Unavailable Herber Lopez MD Unavailable +[phone] Maurilio Carlson MD Unavailable Herber Lopez MD Unavailable +[phone] Gloria Elizalde MD Unavailable +[phone] Olena Smith SILK SOAKER Unavailable Unavailable Maurilio Carlson MD Unavailable Mamadou Bowie MD Primary Care Provider +[phone] Mamadou Bowie MD Unavailable Herber Lopez MD Unavailable +[phone] Makenzie Romano MD Unavailable +[phone] Shani Stephenson MD Unavailable +[phone] Yomi Campos PhD Unavailable +[phone] Ita Newton Unavailable Unavailable Kenya Jennings MD Unavailable + [phone] Herber Lopez MD Unavailable +[phone] Сергей Dumont [facility] Unavailable Unavailable Kenya Jennings MD Unavailable + [phone] Jesse Arvizu MD Unavailable Luis Dudley MD Unavailable +[phone] Carmen Cole-C Unavailable +[phone] Racheal Ng MD Unavailable +[phone] Encounter Details Date Type Department Care Team (Late st Contact Info) Description 09/12/2018 [facility] Cancer [address] [address] Yudy Pompa MD [address] [place] [address] [id number] Social History Tobacco Use Types Packs/Day Years Used Date Smoking Tobacco: Never Smokeless Tobacco: Never Alcohol Use Standard Drinks/Week Comments No 0 (1 standard drink = 0.6 oz pur e alcohol) PHQ-2 Answer Date Recorded PHQ-2 Score 0 05/13/2018 Comments No Sex and Gender Information Value Date Recorded Sex Assigned at Female 11/14/2020 10:33 PM CDT Legal Sex Female 3:58 AM HAIR TINTER Gender Identity other 11/14/2020 10:33 PM CDT Sexual Orientation Lesbian 06/22/2019 4: 20 AM HAIR TINTER documented as of this encounter Plan of Treatment Upcoming Encounters Date Type Department Care Team (Latest Contact Info) Description 10/29/2024 11:00 AM CDT [facility] [address] [place] [phone] 11/23/2024 1:30 PM CDT Office Visit [facility] Mental Health & Addiction [place] [phone] [place] [address] [phone] Melanie Boykin MD [address] [place] [address] 034154 Gloria Elizalde MD [address] [place] [address] 229685 12/03/2024 3:00 PM CDT Office Visit [facility] [address] [place] [address] [place] [address] [phone] Jesse Arvizu MD [address] [place] [address] 12/15/2024 11:40 AM CDT Ancillary Procedure [facility] [place] [facility] [address] [phone] Yudy Pompa MD [address] [place] [address] 9[address] 12/22/2024 11:40 AM CDT Oncology [facility] [address] [place] [address] [phone] Yudy Pompa MD [address] [place] [address] 02/22/2025 12:30 PM CDT Office Visit [facility] Plastic and Reconstructive Surgery Clinic [address]th [place] [phone] Kenya Jennings MD [address] [place] [address] 03/12/2025 1:00 PM HAIR TINTER Office Visit [facility] Internal Medicine [address] [phone] Mamadou Bowie MD [address] [place] [address] 03/23/2025 8:00 AM HAIR TINTER Hospital Encounter [facility] PeriOp Services [address] [place], [place] [address] [place] [phone] Kenya Jennings MD [address] [place] [address] 03/23/2025 8:00 AM HAIR TINTER - 03/23/2025 12:05 PM HAIR TINTER Surgery [facility] [address] [place] [address] [place] [phone] Kenya Jennings MD [address] [place] [address] 16447 MASTECTOMY, BILATERAL, SIMPLE, NO nipple grafts. OnQ 03/30/2025 10:00 AM HAIR TINTER Office Visit [facility] [address] [phone] Lynn Parks APRN [address] [phone] 04/16/2025 1:00 PM HAIR TINTER Office Visit [facility] Internal Medicine [address] [phone] Mamadou Bowie MD [address] [place] [address] [phone] 05/03/2025 4:00 PM HAIR TINTER Office Visit [facility] [address] [phone] Kenya Jennings MD [address] [place] [address] 195 [place], [place] 266135 08/17/2025 12:15 PM CDT Office Visit [facility] Dermatology Clinic [address] [phone] Herber Lopez MD [address] [place] [address] 98 [place], [place] 852615 Scheduled Procedures Name Priority Associated Diagnoses Date/Ti me MASTECTOMY, BILATERAL, FOR GENDER AFFIRMATION Gender dysphoria in adult 03/23/2025 8:00 AM HAIR TINTER documented as of this encounter Visit Diagnoses Not on filedocumented in this encounter Additional Health Concerns Assessment Noted Time PHQ-9 Depression Total Score: 7 02/21/20 17 12:55 PM CDT documented as of this encounter Care Teams Boiler Fireman Relationship Specialty Start Date End Date Kesha Boyd DO [address] [place] [address] PCP - General Family Practice 04/12/16 10/16/18 Yudy Mathews MD [address] [place] [address] 395 [place] [address] PCP - General Internal Medicine 10/17/18 04/18/21 Torey Luna MD [address] [address] PCP - General Internal Medicine 04/19/21 03/17/23 Mamadou Bowie MD [address] [place] [address] 96053 PCP - General 03/18/23 Cindy Ruiz [facility] [place] [address] Resident Internal Medicine 12/07/14 Kaitlin Branch MD [facility] [place] [phone] [place] [address] system specialist 01/02/16 10/17/20 Trevor Espino MD [address] [place] [address] Urology 05/16/16 Jessica Reddy MD [facility] 3800 [place] [address] Resident Student in organized health care education/training program 12/10/16 10/16/18 Melanie Boykin MD [address] [place] [address] 17401 system specialist 12/10/16 11/07/23 Jaci Whitlock APRN CONTROL VALVE TECHNICIAN [address] [address] Nurse Practitioner - Women's Health 12/14/16 [place] [address] Assigned PCP 09/24/19 07/24/20 Jaci Whitlock APRN CONTROL VALVE TECHNICIAN [address] [place] [address] Assigned OBGYN Provider 02/26/20 Shanelle Mcgowan MD [address] [place] [address] 584065 Assigned Surgical Provider 02/26/20 07/29/21 Doris Ricci MD [facility] [address] [address] Physician Internal Medicine 07/11/20 [place] [address] Assigned PCP 07/25/20 04/22/21 Antonette Castro PA-C [address] [place] [address] 20964 Assigned Heart and Vascular Provider 07/20/20 04/08/21 Yudy Pompa MD 909 [place], [place] 208215 Assigned Cancer Care Provider 08/21/20 Jessi Mcfadden MD [facility] F282/2A [place] [address] Resident Psychiatry 11/08/20 12/23/22 Mary Carmen Rodriguez MD [address] [place] [address] MD Dermatology 11/09/20 Herber Lopez MD [address] [place] [address] Dermapathology 11/09/20 Y[address]PM [address] [facility] [address] [place] [address] Assigned Musculoskeletal Provider 12/04/20 06/08/22 Antonette Castro PA-C [address] [place] [address] [phone] Assigned Gastroenterology Provider 04/09/21 07/08/21 Torey Luna MD [address] [place] [address] Assigned PCP 04/23/21 03/22/23 Herber Lopez MD [address] [place] [address] [phone] Assigned Surgical Provider 07/30/21 11/17/21 Maurilio Carlson MD [address] [place] [address] 850965 Assigned Surgical Provider 11/18/21 11/23/22 Herber Lopez MD [address] [place] [address] 123215 Assigned Surgical Provider 11/24/22 12/21/22 Gloria Elizalde MD [address] [place] [address] 976555 Resident 12/24/22 Olean Smith LSW Specialty Tie Carrier Smoking Pipes Cleaner - Clinical 12/25/22 01/03/23 Maurilio Carlson MD [address] [place] [address] 684639 Assigned Surgical Provider 12/22/22 05/17/23 Mamadou Bowie MD [address] [place] [address] 917165 Assigned PCP 03/23/23 Herber Lopez MD [address] [place] [address] 290935 Assigned Surgical Provider 05/18/23 07/25/24 Makenzie Romano MD [address] [place] [address] 8[address] system specialist & Neurology - Child & Adolescent Psychiatry 11/08/23 Shani Stephenson MD [address] [place] [address] 999175 Resident Psychiatry 11/08/23 Yomi Campos, PhD [facility] [place] [address] [phone] [place] [address] Assigned Behavioral Health Provider 01/27/24 08/25/24 Ita Newton Specialty Tie Carrier 06/04/24 Kenya Jennings MD 420 [facility] 195 [place], [place] 304205 Plastic Surgery 06/04/24 Herber Lopez MD 420 [facility] 98 [place] [address] Assigned Dermatology Provider 07/26/24 Сергей Dumont [facility] Smoking Pipes Cleaner 08/13/24 Kenya Jennings MD 420 [facility] 195 [place], [place] 862805 Assigned Surgical Provider 08/26/24 Jesse Arvizu MD 5775 [place] [address] Assigned Behavioral Health Provider 08/26/24 09/24/24 Luis Dudley MD 240 [place] [address] Assigned Behavioral Health Provider 09/25/24 10/25/24 Carmen Cole PA-C [address] [address] Assigned Sleep Provider 09/25/24 Racheal Ng MD 2450 [facility] F282 [place] [address] Assigned Behavioral Health Provider 10/26/24 documented as of this encounter
--- OUTSIDE RECORDS SUMMARY | 2024-10-28 19:21 | XMS_ITS | Encounter Summary ---
Author Organization [facility] Address [address] [place] [address] 83[address] Care Team Providers Care Greeting Card Maker Name Role Phone RichielelaCindy Unavailable +[phone] Kaitlin Branch MD Unavailable +[phone] Kesha Boyd DO Primary Care Provider + [phone] Trevor Espino MD Unavailable +[phone] Jessica Reddy MD Unavailable Melanie Boykin MD Unavailable +[phone] Jaci Whitlock APRN PRINTING ROLLER HANDLER Unavailable + Yudy Mathews MD Primary Care Provider +[phone] Yudy Mathews MD Unavailable +[phone] Jaci Whitlock APRN PRINTING ROLLER HANDLER Unavailable + Juan M Smith MD, Madhuri Unavailable +[phone] Doris Ricci MD Unavailable +[phone] Yudy Mathews MD Unavailable +[phone] Antonette Castro PA-C Unavailable +[phone] Yudy Pompa MD Unavailable +[phone] Jessi Mcfadden MD Unavailable + [phone] Mary Carmen Rodriguez MD Unavailable + Herber Lopez MD Unavailable +[phone] Yomi Izquierdo DPM Unavailable +[phone] Torey Luna MD Primary Care Provider Antonette Castro PA-C Unavailable +[phone] Torey Luna MD Unavailable Herber Lopez MD Unavailable +[phone] Maurilio Carlson MD Unavailable Herber Lopez MD Unavailable +[phone] Gloria Elizalde MD Unavailable +[phone] Olena Smith CERTIFIED WELLNESS PROGRAM MANAGER Unavailable Unavailable Maurilio Carlson MD Unavailable Mamadou Bowie MD Primary Care Provider [phone] Mamadou Bowie MD Unavailable Herber Lopez MD Unavailable +[phone] Makenzie Romano MD Unavailable +[phone] Shani Stephenson MD Unavailable +[phone] Yomi Campos PhD Unavailable +[phone] Ita Newton Unavailable Unavailable Kenya Jennings MD Unavailable + [phone] Herber Lopez MD Unavailable +[phone] Сергей Dumont [facility] Unavailable Unavailable Kenya Jennings MD Unavailable + [phone] Jesse Arvizu MD Unavailable Luis Dudley MD Unavailable +[phone] Carmen Cole-C Unavailable +[phone] Racheal Ng MD Unavailable +[phone] Encounter Details Date Type Department Care Team (Late st Contact Info) Description 09/09/2018 [facility] Cancer [address] [phone] Yudy Pompa MD [address] [place] [address] 863145 Social History Tobacco Use Types Packs/Day Years Used Date Smoking Tobacco: Never Smokeless Tobacco: Never Alcohol Use Standard Drinks/Week Comments No 0 (1 standard drink = 0.6 oz pur e alcohol) PHQ-2 Answer Date Recorded PHQ-2 Score 0 05/13/2018 Comments No Sex and Gender Information Value Date Recorded Sex Assigned at Female 11/14/2020 10:33 PM CDT Legal Sex Female 3:58 AM ALTERATIONS SUPERVISOR Gender Identity other 11/14/2020 10:33 PM CDT Sexual Orientation Lesbian 06/22/2019 4: 20 AM ALTERATIONS SUPERVISOR documented as of this encounter Plan of Treatment Upcoming Encounters Date Type Department Care Team (Latest Contact Info) Description 10/29/2024 11:00 AM CDT [facility] [address] [place] [phone] 11/23/2024 1:30 PM CDT Office Visit [facility] Mental Health & Addiction [place] [phone] [address] [place] [address] [phone] Melanie Boykin MD [address] [place] [address] 758674 Gloria Elizalde MD [address] [place] [address] 941175 12/03/2024 3:00 PM CDT Office Visit [facility] [address] [place] [address] [place] [address] [phone] Jesse Arvizu MD [address] [place] [address] 6[address] 12/15/2024 11:40 AM CDT Ancillary Procedure [facility] [place] [facility] [address] [phone] Yudy Pompa MD [address] [place] [address] 12/22/2024 11:40 AM CDT Oncology Visit [facility] [address] [place] [address] [phone] Yudy Pompa MD [address] [place] [address] 02/22/2025 12:30 PM CDT Office Visit [facility] Plastic and Reconstructive Surgery Clinic [address]th [place] [phone] Kenya Jennings MD [address] [place] [address] 847[address] 03/12/2025 1:00 PM ALTERATIONS SUPERVISOR Office Visit [facility] Internal Medicine [address] [phone] Mamadou Bowie MD [address] [place] [address] 70721 03/23/2025 8:00 AM ALTERATIONS SUPERVISOR Hospital Encounter [facility] PeriOp Services [address] [place], [place] [address] [place] [phone] Kenya Jennings MD [address] [place] [address] 9[address] 03/23/2025 8:00 AM ALTERATIONS SUPERVISOR - 03/23/2025 12:05 PM ALTERATIONS SUPERVISOR Surgery [facility] [address] [place] [address] [place] [phone] Kenya Jennings MD [address] [place] [address] 567[address] MASTECTOMY, BILATERAL, SIMPLE, NO nipple grafts. OnQ 03/30/2025 10:00 AM ALTERATIONS SUPERVISOR Office Visit [facility] [address] [phone] Lynn Parks APRN [address] 947215 04/16/2025 1:00 PM ALTERATIONS SUPERVISOR Office Visit [facility] Internal Medicine [address] [phone] Mamadou Bowie MD [address] [place] [address] 382845 05/03/2025 4:00 PM ALTERATIONS SUPERVISOR Office Visit [facility] Clinic [address] [phone] Kenya Jennings MD [address] [place] [address] 195 [place], [place] 688645 08/17/2025 12:15 PM CDT Office Visit [facility] Dermatology Clinic [address] [phone] Herber Lopez MD [address] [place] [address] 98 [place], [place] 385935 Scheduled Procedures Name Priority Associated Diagnoses Date/Ti me MASTECTOMY, BILATERAL, FOR GENDER AFFIRMATION Gender dysphoria in adult 03/23/2025 8:00 AM ALTERATIONS SUPERVISOR documented as of this encounter Visit Diagnoses Not on filedocumented in this encounter Additional Health Concerns Assessment Noted Time PHQ-9 Depression Total Score: 7 02/21/20 17 12:55 PM CDT documented as of this encounter Care Teams Greeting Card Maker Relationship Specialty Start Date End Date Kesha Boyd DO [address] [place] [address] PCP - General Family Practice 04/12/16 10/16/18 Yudy Mathews MD [address] [place] [address] 395 [place] [address] PCP - General Internal Medicine 10/17/18 04/18/21 Torey Luna MD [address] [address] PCP - General Internal Medicine 04/19/21 03/17/23 Mamadou Bowie MD [address] [place] [address]15 PCP - General 03/18/23 Cindy Ruiz [facility]LE [facility] [place] [address] Resident Internal Medicine 12/07/14 Kaitlin Branch MD [facility]0 [place] [phone] [place] [address] dairy equipment specialist 01/02/16 10/17/20 Trevor Espino MD [address] [place] [address] 39[address] Urology 05/16/16 Jessica Reddy MD [facility] 3800 [place] [address] Resident Student in organized health care education/training program 12/10/16 10/16/18 Melanie Boykin MD [address] [place] [address]2045 dairy equipment specialist 12/10/16 11/07/23 Jaci Whitlock APRN PRINTING ROLLER HANDLER [address] [address] Nurse Practitioner - Women's Health 12/14/16 [place] [address] Assigned PCP 09/24/19 07/24/20 Jaci Whitlock APRN PRINTING ROLLER HANDLER [address] [place] [address] 7[address] Assigned OBGYN Provider 02/26/20 Shanelle Mcgowan MD [address] [place] [address] 939865 Assigned Surgical Provider 02/26/20 07/29/21 Doris Ricci MD [facility] & [address] [address] Physician Internal Medicine 07/11/20 [place] [address] Assigned PCP 07/25/20 04/22/21 Antonette Castro PA-C [address] [place] [address] Assigned Heart and Vascular Provider 07/20/20 04/08/21 Yudy Pompa MD 909 [place], [place] 985925 Assigned Cancer Care Provider 08/21/20 Jessi Mcfadden MD 24[facility] F282/2A [place] [address] Resident Psychiatry 11/08/20 12/23/22 Mary Carmen Rodriguez MD [address] [place] [address] MD Dermatology 11/09/20 Herber Lopez MD [address] [place] [address] Dermapathology 11/09/20 Yomi Izquierdo DPM [address] [facility] 300 [place] [address] Assigned Musculoskeletal Provider 12/04/20 06/08/22 Antonette Castro PA-C [address] [place] [address] [phone] Assigned Gastroenterology Provider 04/09/21 07/08/21 Torey Luna MD [address] [place] [address] Assigned PCP 04/23/21 03/22/23 Herber Lopez MD [address] [place] [address] [phone] Assigned Surgical Provider 07/30/21 11/17/21 Maurilio Carlson MD [address] [place] [address] 646895 Assigned Surgical Provider 11/18/21 11/23/22 Herber Lopez MD [address] [place] [address] 544545 Assigned Surgical Provider 11/24/22 12/21/22 Gloria Elizalde MD [address] [place] [address] 212725 Resident 12/24/22 Olena Smith LSW Specialty Assistant Women'S Soccer Coach Talent Acquisition Specialist - Clinical 12/25/22 01/03/23 Maurilio Carlson MD [address] [place] [address] 435759 Assigned Surgical Provider 12/22/22 05/17/23 Mamadou Bowie MD [address] [place] [address] 158515 Assigned PCP 03/23/23 Herber Lopez MD [address] [place] [address] 637355 Assigned Surgical Provider 05/18/23 07/25/24 Makenzie Romano MD [address] [place] [address] dairy equipment specialist & Neurology - Child & Adolescent Psychiatry 11/08/23 Shani Stephenson MD [address] [place] [address] 482665 Resident Psychiatry 11/08/23 Yomi Campos, PhD [facility]2 [place] [address] 1089556 [place] [address] Assigned Behavioral Health Provider 01/27/24 08/25/24 Ita Newton Specialty Assistant Women'S Soccer Coach 06/04/24 Kenya Jennings MD 420 [facility] 195 [place], [place] 803595 Plastic Surgery 06/04/24 Herber Lopez MD 420 [facility] 98 [place] [address] Assigned Dermatology Provider 07/26/24 Сергей Dumont [facility] Talent Acquisition Specialist 08/13/24 Kenya Jennings MD 420 [facility] 195 [place], [place] 796585 Assigned Surgical Provider 08/26/24 Jesse Arvizu MD 5775 [place] [address] Assigned Behavioral Health Provider 08/26/24 09/24/24 Luis [place] MD 240 [place] [address] Assigned Behavioral Health Provider 09/25/24 10/25/24 Carmen Cole PA-C [address] [address] Assigned Sleep Provider 09/25/24 Racheal Ng MD 2450 [facility] F282 [place] [address] Assigned Behavioral Health Provider 10/26/24 documented as of this encounter
--- OUTSIDE RECORDS SUMMARY | 2024-10-28 19:21 | XMS_ITS | Encounter Summary ---
Author Organization [facility] Address [address] [place] [address] 26384 Care Team Providers Care Air Pumper Name Role Phone Eddie Cedillo MD Unavailable Cindy Ruiz Unavailable [phone] Kaitlin Branch MD Unavailable [phone] Kesha Boyd DO Primary Care Provider + [phone] Trevor Espino MD Unavailable +[phone] Jessica Reddy MD Unavailable Melanie Boykin MD Unavailable +[phone] Jaci Whitlock COOK'S ASSISTANT LEGAL ACTIVITY ADJUDICATOR Unavailable + Jessica Reddy MD Unavailable Yudy Mathews MD Primary Care Provider + Yudy Mathews MD Unavailable +[phone] Jaci Whitlock COOK'S ASSISTANT LEGAL ACTIVITY ADJUDICATOR Unavailable + Juan M Smith MD, Madhuri Unavailable +[phone] Doris Ricci MD Unavailable +[phone] Yudy Mathews MD Unavailable +[phone] Antonette Castro PA-C Unavailable +[phone] Yudy Pompa MD Unavailable +[phone] Jessi Mcfadden MD Unavailable +[phone] Mary Carmen Rodriguez MD Unavailable + Herber Lopez MD Unavailable +[phone] Yomi Izquierdo DPM Unavailable +[phone] Torey Luna MD Primary Care Provider Antonette Castro-C Unavailable +[phone] Torey Luna MD Unavailable +[phone] Herber Lopez MD Unavailable +[phone] Maurilio Carlson MD Unavailable Herber Lopez MD Unavailable +[phone] Gloria Elizalde MD Unavailable +[phone] Olena Smith SANITARY INSPECTOR Unavailable Unavailable Maurilio Carlson MD Unavailable Mamadou Bowie MD Primary Care Provider +[phone] Mamadou Bowie MD Unavailable Herber Lopez MD Unavailable +[phone] Maknezie Romano MD Unavailable +[phone] Shani Stephenson MD Unavailable [phone] Yomi Campos PhD Unavailable +[phone] Ita Newton Unavailable Unavailable Kenya Jennings MD Unavailable + [phone] Herber Lopez MD Unavailable +[phone] Сергей Dumont [facility] Unavailable Unavailable Kenya Jennings MD Unavailable + [phone] Jesse Arvizu MD Unavailable Luis Dudley MD Unavailable +[phone] Carmen Cole-C Unavailable +[phone] Racheal Ng MD Unavailable +[phone] Reason for Visit * Reason Onset Date Comments Appointment 05/08/2017 Encounter Details Date Type Department Care Team (Late st Contact Info) Description 05/08/2017 MyC Medical Advice [facility] Mental [facility] Addiction [address] F[address] [phone] Jessica Reddy MD [facility] [address] [place], [place] [phone] Appointment Social History Tobacco Use Types Packs/Day Years Used Date Smoking Tobacco: Never Alcohol Use Standard Drinks/Week Comments No 0 (1 standard drink = 0.6 oz pur e alcohol) Comments No Sex and Gender Information Value Date Recorded Sex Assigned at Female 11/14/2020 10:33 PM CDT Legal Sex Female 3:58 AM NEURO PSYCH SALES SPECIALIST Gender Identity other 11/14/2020 10:33 PM CDT Sexual Orientation Lesbian 06/22/2019 4: 20 AM NEURO PSYCH SALES SPECIALIST documented as of this encounter Plan of Treatment Upcoming Encounters Date Type Department Care Team (Latest Contact Info) Description 10/29/2024 11:00 AM CDT [facility] [address] [place] [phone] 11/23/2024 1:30 PM CDT Office Visit [facility] [address] [place] F235 [facility] [address] [phone] Melanie Boykin MD [address] [place] [address] [phone] Gloria Elizalde MD [address] [place], [place] 742475 12/03/2024 3:00 PM CDT Office Visit [facility] [address] [place] [address] [phone] Jesse Arvizu MD [address] [place] [address] [phone] 12/15/2024 11:40 AM CDT Ancillary Procedure [facility] Imaging [facility] [address] [place] [phone] Yudy Pompa MD [address] [place] [address] 239705 12/22/2024 11:40 AM CDT Oncology Visit [facility] [address] [place] [address] [phone] Yudy Pompa MD [address] [place] [address] [phone] 02/22/2025 12:30 PM CDT Office Visit [facility] [address] [phone] Kenya Jennings MD [address] [place] [address] 87865 03/12/2025 1:00 PM NEURO PSYCH SALES SPECIALIST Office Visit [facility] Internal Medicine [address] [phone] Mamadou Bowie MD [address] [place] [address] 79[address] 03/23/2025 8:00 AM NEURO PSYCH SALES SPECIALIST Hospital Encounter [facility] [address] [place] [address] [place] [phone] Kenya Jennings MD [address] [place] [address] 04274 03/23/2025 8:00 AM NEURO PSYCH SALES SPECIALIST - 03/23/2025 12:05 PM NEURO PSYCH SALES SPECIALIST Surgery [facility] [address] [place] [phone] Kenya Jennings MD [address] [place] [address] [phone] MASTECTOMY, BILATERAL, SIMPLE, NO nipple grafts. OnQ 03/30/2025 10:00 AM NEURO PSYCH SALES SPECIALIST Office Visit [facility] [address] [phone] Lynn Parks APRN [address] [address] 04/16/2025 1:00 PM NEURO PSYCH SALES SPECIALIST Office Visit [facility] Internal Medicine [address] [phone] Mamadou Bowie MD [address] [place] [address] 947645 05/03/2025 4:00 PM NEURO PSYCH SALES SPECIALIST Office Visit [facility] [address] [phone] Kenya Jennings MD [address] [place] [address] 91023 08/17/2025 12:15 PM CDT Office Visit [facility] Dermatology Clinic [address] [phone] Herber Lopez MD [address] [place] [address] 107325 Scheduled Procedures Name Priority Associated Diagnoses Date/Ti me MASTECTOMY, BILATERAL, FOR GENDER AFFIRMATION Gender dysphoria in adult 03/23/2025 8:00 AM NEURO PSYCH SALES SPECIALIST documented as of this encounter Visit Diagnoses Not on filedocumented in this encounter Additional Health Concerns Assessment Noted Time PHQ-9 Depression Total Score: 7 02/21/20 17 12:55 PM CDT documented as of this encounter Care Teams Air Pumper Relationship Specialty Start Date End Date Kesha Boyd DonnaDO [address] [place] [address] 39650 PCP - General Family Practice 04/12/16 10/16/18 Yudy Mathews MD [address] [place] [address] 395 [place] [address] PCP - General Internal Medicine 10/17/18 04/18/21 Torey Luna MD [address] [place] [address] 47341 PCP - General Internal Medicine 04/19/21 03/17/23 Mamadou Bowie MD [address] [place] [address] 83269 PCP - General 03/18/23 Eddie Cedillo MD [facility] [address] [place] [address] Dermatology 10/21/14 11/18/17 [facility] Ru[facility] [place] [address] Resident Internal Medicine 12/07/14 Kaitlin Branch MD [address] [place] [address] 81356 blindstitch machine operator 01/02/16 10/17/20 Trevor Espino MD [address] [place] [address] 85236 Urology 05/16/16 Jessica Reddy MD [address] [address] Resident Student in organized health care education/training program 12/10/16 10/16/18 Melanie Boykin MD [address] [place] [address] 300494 blindstitch machine operator 12/10/16 11/07/23 Jaci Whitlock APRN LEGAL ACTIVITY ADJUDICATOR [address] [place] [address] [phone] Nurse Practitioner - Women's Health 12/14/16 Jessica Reddy MD [address] [address] Resident Student in organized health care education/training program 02/06/17 06/26/18 Yudy Mathews MD [facility] [place], [place] 695157 Assigned PCP 09/24/19 07/24/20 Jaci Whitlock APRN LEGAL ACTIVITY ADJUDICATOR [address] [place] [address] [phone] Assigned OBGYN Provider 02/26/20 Shanelle Mcgowan MD [address] [place] [address] 88958 Assigned Surgical Provider 02/26/20 07/29/21 Doris Ricci MD [facility] [address] [address] Physician Internal Medicine 07/11/20 Yudy Mathews MD [facility] [place] [address] Assigned PCP 07/25/20 04/22/21 Antonette Castro PA-C [address] [place] [address] 948195 Assigned Heart and Vascular Provider 07/20/20 04/08/21 Yudy Pompa MD [address] [place] [address] [phone] Assigned Cancer Care Provider 08/21/20 Jessi Mcfadden MD [address] [place] [address] F282/2A [place], [place] 312334 Resident Psychiatry 11/08/20 12/23/22 Mary Carmen Rodriguez MD [address] [place] [address] 85380 Dermatology 11/09/20 Herber Lopez MD [address] [place] [address] 91058 Dermapathology 11/09/20 Yomi Izquierdo DPM 24889 [facility] [address] [place] [address] Assigned Musculoskeletal Provider 12/04/20 06/08/22 Antnoette Castro PA-C [address] [place] [address] 55320 Assigned Gastroenterology Provider 04/09/21 07/08/21 Torey Luna MD [address] [place] [address] 63711 Assigned PCP 04/23/21 03/22/23 Herber Lopez MD [address] [place] [address] 67120 Assigned Surgical Provider 07/30/21 11/17/21 Maurilio Carlson MD [address] [place] [address] 71086 Assigned Surgical Provider 11/18/21 11/23/22 Herber Lopez MD [address] [place] [address] 98398 Assigned Surgical Provider 11/24/22 12/21/22 Gloria Elizalde MD [address] [place] [address] 7[address]25 Resident 12/24/22 Olena Smith LSW Specialty Computer Help Desk Specialist Graphic Art Technician - Clinical 12/25/22 01/03/23 [place] [address] [place] [address] Assigned Surgical Provider 12/22/22 05/17/23 Mamadou Bowie MD 909 [place] [address] Assigned PCP 03/23/23 Herber Lopez MD 420 [facility] 98 [place] [address] Assigned Surgical Provider 05/18/23 07/25/24 Makenzie Romano MD [address] [place] [address] 77370 blindstitch machine operator & Neurology - Child & Adolescent Psychiatry 11/08/23 Shani Stephenson MD [address] [place] [address] 376985 Resident Psychiatry 11/08/23 Yomi Campos, PhD [address] [place] [address] 96743 Assigned Behavioral Health Provider 01/27/24 08/25/24 Ita Newton Specialty Computer Help Desk Specialist 06/04/24 Kenya Jennings MD [address] [place] [address] 47809 Plastic Surgery 06/04/24 Herber Lopez MD [address] [place] [address] 79410 Assigned Dermatology Provider 07/26/24 Сергей Dumont, [facility] Graphic Art Technician 08/13/24 Kenya Jennings MD [address] [place] [address] 749405 Assigned Surgical Provider 08/26/24 Jesse Arvizu MD [address] [place] [address] Assigned Behavioral Health Provider 08/26/24 09/24/24 Luis Dudley MD [address] [place], [place] 274724 Assigned Behavioral Health Provider 09/25/24 10/25/24 Carmen Cole PA-C 6363 [facility] [place] 103 [place], [place] 530405 Assigned Sleep Provider 09/25/24 Racheal Ng MD 2450 [facility] F282 [place], [place] [phone] Assigned Behavioral Health Provider 10/26/24 documented as of this encounter
--- OUTSIDE RECORDS SUMMARY | 2024-10-28 19:21 | XMS_ITS | Encounter Summary ---
Author Organization [facility] Address [address] [place] [address] 81502 Care Team Providers Care Defensive Fire Control Systems Operator Name Role Phone RichielelaReinadanitza Low Unavailable [phone] Kaitlin Branch MD Unavailable +[phone] Trevor Espino MD Unavailable +[phone] Melanie Boykin MD Unavailable +[phone] Jaci Whitlock APRN GROUND SUPPORT AGENT Unavailable + Yudy Mathews MD Primary Care Provider [phone] Juan M Smith MD, Madhuri Unavailable +[phone] Doris Ricci MD Unavailable +[phone] Yudy Mathews MD Unavailable +[phone] Antonette Castro PA-C Unavailable +[phone] Yudy Pompa MD Unavailable +[phone] Jessi Mcfadden MD Unavailable +[phone] Mary Carmen Rodriguez MD Unavailable + Herber Lopez MD Unavailable +[phone] Yomi Izquierdo DPM Unavailable +[phone] Torey Luna MD Primary Care Provider +[phone] Antonette Castro PA-C Unavailable +[phone] Torey Luna MD Unavailable +[phone] Herber Lopez MD Unavailable +[phone] Maurilio Carlson MD Unavailable Herber Lopez MD Unavailable +[phone] Gloria Elizalde MD Unavailable +[phone] Olena Smith [facility] Unavailable Unavailable Maurilio Carlson MD Unavailable Mamadou Bowie MD Primary Care Provider [phone] Mamadou Bowie MD Unavailable Herber Lopez MD Unavailable +[phone] Makenzie Romano MD Unavailable +[phone] Shani Stephenson MD Unavailable +[phone] Yomi Campos PhD Unavailable +[phone] Ita Newton Unavailable Unavailable Kenya Jennings MD Unavailable +[phone] Herber Lopez MD Unavailable +[phone] Сергей Dumont [facility] Unavailable Unavailable Kenya Jennings MD Unavailable +[phone] Jesse Arvizu MD Unavailable Luis Dudley MD Unavailable +[phone] Carmen Cole PA-C Unavailable +[phone] Racheal Ng MD Unavailable +[phone] Encounter Details Date Type Department Care Team (Late st Contact Info) Description 07/27/2020 MyC Medical Advice [facility] Mental Health & Addiction Services [address] [place] [address] Yonas Day, QUALITY ASSURANCE SUPERVISOR, [facility] [address] [place] [address] [place] [address] Social History Tobacco Use Types Packs/Day Years Used Date Smoking Tobacco: Never Smokeless Tobacco: Never Alcohol Use Standard Drinks/Week Comments No 0 (1 standard drink = 0.6 oz pur e alcohol) PHQ-2 Answer Date Recorded PHQ-2 Score 2 06/15/2020 Comments No Sex and Gender Information Value Date Recorded Sex Assigned at Female 11/14/2020 10:33 PM CDT Legal Sex Female 3:58 AM MALL PLANT CARETAKER Gender Identity other 11/14/2020 10:33 PM CDT Sexual Orientation Lesbian 06/22/2019 4: 20 AM MALL PLANT CARETAKER COVID-19 Exposure Response Date Recorded In the last month, have you been in contact with someone who was confirmed or suspected to have Coronavirus / COVID-19? No / Unsure 07/28/2020 11:53 AM CDT documented as of this encounter Plan of Treatment Upcoming Encounters Date Type Department Care Team (Latest Contact Info) Description 10/29/2024 11:00 AM CDT Virtual Visit [facility] [address] [place] [address] [phone] 11/23/2024 1:30 PM CDT Office Visit [facility] Mental Health & Addiction [place] [phone] [address] [place] [phone] Melanie Boykin MD [address] [place] [place] [address] [phone] Gloria Elizalde MD [address] [place] [address] [phone] 12/03/2024 3:00 PM CDT [facility] Visit [facility] [address] [place] [phone] Jesse Arvizu MD [address] [place] [address] 753746 12/15/2024 11:40 AM CDT Ancillary Procedure [facility] [address] [phone] Yudy Pompa MD [address] [place] [address] 72310 12/22/2024 11:40 AM CDT Oncology Visit [facility] [address] [place] [address] [phone] Yudy Pompa MD [address] [place] [address] 13983 02/22/2025 12:30 PM CDT Office Visit [facility] Plastic and Reconstructive Surgery Clinic [address] [phone] Kenya Jennings MD [address] [place] [address] 62163 03/12/2025 1:00 PM MALL PLANT CARETAKER Office Visit [facility] Internal Medicine [address] [phone] Mamadou Bowie MD [address] [place] [address] 01677 03/23/2025 8:00 AM MALL PLANT CARETAKER Hospital Encounter [facility] [address] [place] [address] [place] [phone] Kenya Jennings MD [address] [place] [address] 86125 03/23/2025 8:00 AM MALL PLANT CARETAKER - 03/23/2025 12:05 PM MALL PLANT CARETAKER Surgery [facility] [address] [place] [address] [place] [phone] Kenya Jennings MD [address] [place] [address] 46914 MASTECTOMY, BILATERAL, SIMPLE, NO nipple grafts. OnQ 03/30/2025 10:00 AM MALL PLANT CARETAKER Office Visit [facility] Re[facility]ive [facility] Clinic [address] [phone] Lynn Parks APRN [address] 516815 04/16/2025 1:00 PM MALL PLANT CARETAKER Office Visit [facility] Internal Medicine [address] [phone] Mamadou Bowie MD [address] [place] [address] 038965 05/03/2025 4:00 PM MALL PLANT CARETAKER Office Visit [facility]astic and Reconstructive Surgery Clinic [address] [phone] Kenya Jennings MD [address] [place] [address] 195 [place], [place] 880985 08/17/2025 12:15 PM CDT Office Visit [facility] Dermatology Clinic [address] [phone] Herber Lopez MD [address] [place] [address] 98 [place], [place] 336715 Scheduled Procedures Name Priority Associated Diagnoses Date/Ti me MASTECTOMY, BILATERAL, FOR GENDER AFFIRMATION Gender dysphoria in adult 03/23/2025 8:00 AM MALL PLANT CARETAKER documented as of this encounter Visit Diagnoses Not on filedocumented in this encounter Additional Health Concerns Assessment Noted Time PHQ-9 Depression Total Score: 5 06/16/19 21 7:05 AM MALL PLANT CARETAKER documented as of this encounter Care Teams Defensive Fire Control Systems Operator Relationship Specialty Start Date End Date Yudy Mathews MD [address] [place] [address] 395 [place], [place] 139625 PCP - General Internal Medicine 10/17/18 04/18/21 Torey Luna MD [address] [place] [address] [phone] PCP - General Internal Medicine 04/19/21 03/17/23 Mamadou Bowie MD [address] [place] [address] 850495 PCP - General 03/18/23 Cindy Ruiz [address] [place], [place] 176470 Resident Internal Medicine 12/07/14 Kaitlin Branch MD [address] [place] [address] [phone] range aide 01/02/16 10/17/20 Trevor Espino MD [address] [place] [address] 829725 Urology 05/16/16 Melanie Boykin MD [address] [place] [address] [phone] range aide 12/10/16 11/07/23 Jaci Whitlock APRN GROUND SUPPORT AGENT [address] [place] [address] 395 [place], [place] 044215 Nurse Practitioner - Women's Health 12/14/16 Shanelle Mcgowan MD [address] [place] [address] [phone] Assigned Surgical Provider 02/26/20 07/29/21 Doris Ricci MD [facility] & [address] [address] Physician Internal Medicine 07/11/20 Yudy Mathews MD [facility] [address] [place], [place] 183857 Assigned PCP 07/25/20 04/22/21 Antonette Castro PA-C [address] [place] [address] 078915 Assigned Heart and Vascular Provider 07/20/20 04/08/21 Yudy Pompa MD [address] [place] [address] 258735 Assigned Cancer Care Provider 08/21/20 Jessi Mcfadden MD [address] [place], [place] [id number]/2A [place], [place] 968304 Resident Psychiatry 11/08/20 12/23/22 Mary Carmen Rodriguez MD [address] [place] [address] [phone] Dermatology 11/09/20 Herber Lopez MD [address] [place] [address] 085165 Dermapathology 11/09/20 Yomi Izquierdo DPM [address] [facility] 300 [place], [place] [phone] Assigned Musculoskeletal Provider 12/04/20 06/08/22 Antonette Castro PA-C [address] [place] [address] 45869 Assigned Gastroenterology Provider 04/09/21 07/08/21 Torey Luna MD [address] [place] [address] 30844 Assigned PCP 04/23/21 03/22/23 Herber Lopez MD [address] [place] [address] 68120 Assigned Surgical Provider 07/30/21 11/17/21 Maurilio Carlson MD [address] [place] [address] 39655 Assigned Surgical Provider 11/18/21 11/23/22 Herber Lopez MD [address] [place] [address] 05421 Assigned Surgical Provider 11/24/22 12/21/22 Gloria Elizalde MD [address] [place] [address] 19282 Resident 12/24/22 lOena Smith LSW Specialty Import And Export Clerk Glove Pairer - Clinical 12/25/22 01/03/23 [place] [address] [place] [address] Assigned Surgical Provider 12/22/22 05/17/23 Mamadou Bowie MD [address] [place] [address] 27071 Assigned PCP 03/23/23 Herber Lopez MD [address] [place] [address] 64039 Assigned Surgical Provider 05/18/23 07/25/24 Makenzie Romano MD [address] [place] [address] 38703 range aide & Neurology - Child & Adolescent Psychiatry 11/08/23 Shani Stephenson MD [address] [place] [address] 586075 Resident Psychiatry 11/08/23 Yomi Campos, PhD [address] [place] [address] 29049 Assigned Behavioral Health Provider 01/27/24 08/25/24 Ita Newton Specialty Import And Export Clerk 06/04/24 Kenya Jennings MD [address] [place] [address] 155735 Plastic Surgery 06/04/24 Herber Lopez MD [address] [place] [address] 62193 Assigned Dermatology Provider 07/26/24 Сергей Dumont, [facility] Glove Pairer 08/13/24 Kenya Jennings MD [address] [place] [address] 95312 Assigned Surgical Provider 08/26/24 Jesse Arvizu MD [address] [place] [address] Assigned Behavioral Health Provider 08/26/24 09/24/24 Luis Dudley MD 240 [place], [place] 884794 Assigned Behavioral Health Provider 09/25/24 10/25/24 Carmen Cole PA-C [address] [facility] [address] [place], [place] 632785 Assigned Sleep Provider 09/25/24 Racheal Ng MD 2450 [facility] F282 [place], [place] [phone] Assigned Behavioral Health Provider 10/26/24 documented as of this encounter
--- OUTSIDE RECORDS SUMMARY | 2024-10-28 19:21 | XMS_ITS | Encounter Summary ---
Author Organization [facility] Address [address] [place] [address] 26628 Care Team Providers Care Utility Locator Name Role Phone RichielelaReinadanitza Low Unavailable [phone] Kaitlin Branch MD Unavailable +[phone] Trevor Espino MD Unavailable +[phone] Melanie Boykin MD Unavailable Jaci Whitlock APRN IT COMPLIANCE MANAGER Unavailable + Yudy Mathews MD Primary Care Provider [phone] Juan M Smith MD, Madhuri Unavailable +[phone] Doris Ricci MD Unavailable +[phone] Yudy Mathews MD Unavailable +[phone] Antonette Castro PA-C Unavailable +[phone] Yudy Pompa MD Unavailable +[phone] Jessi Mcfadden MD Unavailable +[phone] Mary Carmen Rodriguez MD Unavailable + Herber Lopez MD Unavailable +[phone] Yomi Izquierdo DPM Unavailable +[phone] Torey Luna MD Primary Care Provider +[phone] Antonette Castro PA-C Unavailable +[phone] Torey Luna MD Unavailable +[phone] Herber Lopez MD Unavailable +[phone] Maurilio Carlson MD Unavailable Herber Lopez MD Unavailable +[phone] Gloria Elizalde MD Unavailable +[phone] Olena Smith [facility] Unavailable Unavailable Maurilio Carlson MD Unavailable Mamadou Bowie MD Primary Care Provider [phone] Mamadou Bowie MD Unavailable Herber Lopez MD Unavailable +[phone] Makenzie Romano MD Unavailable +[phone] Shani Stephenson MD Unavailable +[phone] Yomi Campos PhD Unavailable +[phone] Ita Newton Unavailable Unavailable Kenya Jennings MD Unavailable +[phone] Herber Lopez MD Unavailable +[phone] Сергей Dumont [facility] Unavailable Unavailable Kenya Jennings MD Unavailable +[phone] Jesse Arvizu MD Unavailable Luis Dudley MD Unavailable +[phone] Carmen Cole PA-C Unavailable +[phone] Racheal Ng MD Unavailable +[phone] Encounter Details Date Type Department Care Team (Late st Contact Info) Description 08/31/2020 MyC Medical Advice [facility] Mental Health & Addiction Services [address] [place] [address] Yonas Day, COUNSELOR EDUCATION PROFESSOR, [facility] [address] [place] [address] Social History Tobacco Use Types [...] CDT Legal Sex Female 3:58 AM INDUSTRIAL ARTS TEACHER Gender Identity other 11/14/2020 10:33 PM CDT Sexual Orientation Lesbian 06/22/2019 4: 20 AM INDUSTRIAL ARTS TEACHER COVID-19 Exposure Response Date Recorded In the last month, have you been in contact with someone who was confirmed or suspected to have Coronavirus / COVID-19? No / Unsure 08/30/2020 9:10 AM CDT documented as of this encounter Plan of Treatment Upcoming Encounters Date Type Department Care Team (Latest Contact Info) Description 10/29/2024 11:00 AM CDT Virtual Visit [facility] [address] [place] [address] [phone] 11/23/2024 1:30 PM CDT Office Visit [facility] Mental Health & Addiction [place] [phone] [address] [place] [phone] Melanie Boykin MD [address] [place] [address] [phone] Gloria Elizalde MD [address] [place] [address] 638975 12/03/2024 3:00 PM CDT [facility] [address] [place] [phone] Jesse Arvizu MD [address] [place] [address] 727416 12/15/2024 11:40 AM CDT Ancillary Procedure [facility] [place] [facility] [address] [phone] Yudy Pompa MD [address] [place] [address] 89946 12/22/2024 11:40 AM CDT Oncology Visit [facility] Cancer [facility] [address] [place] [address] [phone] Yudy Pompa MD [address] [place] [address] 34903 02/22/2025 12:30 PM CDT Office Visit [facility] Plastic and Reconstructive Surgery Clinic [address] [phone] Kenya Jennings MD [address] [place] [address] 94616 03/12/2025 1:00 PM INDUSTRIAL ARTS TEACHER Office Visit [facility] Internal Medicine [address] [phone] Mamadou Bowie MD [address] [place] [address] 52877 03/23/2025 8:00 AM INDUSTRIAL ARTS TEACHER Hospital Encounter [facility] PeriOp Services [address] [place] [address] [place] [phone] Kenya Jennings MD [address] [place] [address] 66289 03/23/2025 8:00 AM INDUSTRIAL ARTS TEACHER - 03/23/2025 12:05 PM INDUSTRIAL ARTS TEACHER Surgery [facility] [address] [place] [address] [place] [phone] Kenya Jennings MD [address] [place] [address] 91894 MASTECTOMY, BILATERAL, SIMPLE, NO nipple grafts. OnQ 03/30/2025 10:00 AM INDUSTRIAL ARTS TEACHER Office Visit [facility] Plastic and Reconstructive Surgery Clinic [address] [phone] Lynn Parks APRN [address] [address] 04/16/2025 1:00 PM INDUSTRIAL ARTS TEACHER Office Visit [facility] Internal Medicine [address] [phone] Mamadou Bowie MD [address] [place] [address] [phone] 05/03/2025 4:00 PM INDUSTRIAL ARTS TEACHER Office Visit [facility] Plastic [facility] Reconstructive Surgery Clinic [address] [phone] Kenya Jennings MD [address] [place] [address] [address] [place], [place] 818795 08/17/2025 12:15 PM CDT Office Visit [facility] Dermatology Clinic [address] [phone] Herber Lopez MD [address] [place] [address] 98 [place], [place] 160815 Scheduled Procedures Name Priority Associated Diagnoses Date/Ti me MASTECTOMY, BILATERAL, FOR GENDER AFFIRMATION Gender dysphoria in adult 03/23/2025 8:00 AM INDUSTRIAL ARTS TEACHER documented as of this encounter Visit Diagnoses Not on filedocumented in this encounter Additional Health Concerns Assessment Noted Time PHQ-9 Depression Total Score: 7 09/07/19 21 7:02 AM CDT documented as of this encounter Care Teams Utility Locator Relationship Specialty Start Date End Date Yudy Mathews MD [address] [place] [address] 395 [place], [place] 119305 PCP - General Internal Medicine 10/17/18 04/18/21 Torey Luna MD [address] [place] [address] 960555 PCP - General Internal Medicine 04/19/21 03/17/23 Mamadou Bowie MD [address] [place] [address] [phone] PCP - General 03/18/23 Cindy Ruiz [address] [place], [place] 235740 Resident Internal Medicine 12/07/14 aKitlin Branch MD [address] [place] [address] [phone] simplex operator 01/02/16 10/17/20 Trevor Espino MD [address] [place] [address] 190595 Urology 05/16/16 Melaine Boykin MD [address] [place] [address] 673014 simplex operator 12/10/16 11/07/23 Jaci Whitolck APRN IT COMPLIANCE MANAGER [address] [place] [address] 347295 Nurse Practitioner - Women's Health 12/14/16 Shanelle Mcgowan MD [address] [place] [address] 839875 Assigned Surgical Provider 02/26/20 07/29/21 Doris Ricci MD [facility] & [address] [address] Physician Internal Medicine 07/11/20 Yudy Mathews MD [facility] [place], [place] 781497 Assigned PCP 07/25/20 04/22/21 Antonette Castro PA-C [address] [place] [address] 435855 Assigned Heart and Vascular Provider 07/20/20 04/08/21 Yudy Pompa MD [address] [place] [address] 280395 Assigned Cancer Care Provider 08/21/20 Jessi Mcfadden MD [address] [place], [place] 3007182/2A [place], [place] 507454 Resident Psychiatry 11/08/20 12/23/22 Mary Carmen Rodriguez MD [address] [place] [address] 088155 Dermatology 11/09/20 Herber Lopez MD [address] [place] [address] 805705 Dermapathology 11/09/20 Yomi Izquierdo DPM 22728 [facility] [address] [place], [place] 474497 Assigned Musculoskeletal Provider 12/04/20 06/08/22 Antonette Castro PA-C [address] [place] [address] 42642 Assigned Gastroenterology Provider 04/09/21 07/08/21 Torey Luna MD [address] [place] [address] 08669 Assigned PCP 04/23/21 03/22/23 Herber Lopez MD [address] [place] [address] 38425 Assigned Surgical Provider 07/30/21 11/17/21 Maurilio Carslon MD [address] [place] [address] 23980 Assigned Surgical Provider 11/18/21 11/23/22 Herber Lopez MD [address] [place] [address] 67484 Assigned Surgical Provider 11/24/22 12/21/22 Gloria Elizalde MD [address] [place] [address] 54435 Resident 12/24/22 Olena Smith LSW Specialty Brick Veneer Maker Business Analyst Sales Operations - Clinical 12/25/22 01/03/23 [place] [address] [place] [address] Assigned Surgical Provider 12/22/22 05/17/23 Mamadou Bowie MD [address] [place] [address] 89193 Assigned PCP 03/23/23 Herber Lopez MD [address] [place] [address] 02576 Assigned Surgical Provider 05/18/23 07/25/24 Makenzie Romano MD [address] [place] [address] 17434 simplex operator & Neurology - Child & Adolescent Psychiatry 11/08/23 Shani Stephenson MD [address] [place] [address] 707335 Resident Psychiatry 11/08/23 Yomi Campos, PhD [address] [place] [address] 31228 Assigned Behavioral Health Provider 01/27/24 08/25/24 Ita Newton Specialty Brick Veneer Maker 06/04/24 Kenya Jennings MD [address] [place] [address] [phone] Plastic Surgery 06/04/24 Herber Lopez MD [address] [place] [address] 14293 Assigned Dermatology Provider 07/26/24 Сергей Dumont [facility] Business Analyst Sales Operations 08/13/24 Kenya Jennings MD [address] [place] [address] 61095 Assigned Surgical Provider 08/26/24 Jesse Arvizu MD [address] [place] [address] Assigned Behavioral Health Provider 08/26/24 09/24/24 Luis Dudley MD 240 [place], [place] 484984 Assigned Behavioral Health Provider 09/25/24 10/25/24 Carmen Cole PA-C [address] [facility] [address] [place], [place] 784325 Assigned Sleep Provider 09/25/24 Racheal Ng MD 2450 [facility] [address] [place], [place] [phone] Assigned Behavioral Health Provider 10/26/24 documented as of this encounter
--- OUTSIDE RECORDS SUMMARY | 2024-10-28 19:21 | XMS_ITS | Encounter Summary ---
Author Organization [facility] Address [address] [place] [address] 23166 Care Team Providers Care Trade Economist Name Role Phone RichielelaReinadanitza Low Unavailable [phone] Kaitlin Branch MD Unavailable +[phone] Trevor Espino MD Unavailable +[phone] Melanie Boykin MD Unavailable +[phone] Jaci Whitlock APRN ONION TOPPER Unavailable + Yudy Mathews MD Primary Care Provider [phone] Juan M Smith MD, Madhuri Unavailable +[phone] Doris Ricci MD Unavailable +[phone] Yudy Mathews MD Unavailable +[phone] Antonette Castro PA-C Unavailable +[phone] Yudy Pompa MD Unavailable +[phone] Jessi Mcfadden MD Unavailable +[phone] Mary Carmen Rodriguez MD Unavailable + Herber Lopez MD Unavailable +[phone] Yomi Izquierdo DPM Unavailable +[phone] Torey Luna MD Primary Care Provider +[phone] Antonette Castro PA-C Unavailable +[phone] Torey Luna MD Unavailable +[phone] Herber Lopez MD Unavailable +[phone] Maurilio Carlson MD Unavailable Herber Lopez MD Unavailable +[phone] Gloria Elizalde MD Unavailable +[phone] Olena Smith INTERNATIONAL SPECIALIST Unavailable Unavailable Maurilio Carlson MD Unavailable Mamadou Bowie MD Primary Care Provider [phone] Mamadou Bowie MD Unavailable Herber Lopez MD Unavailable +[phone] Makenzie Romano MD Unavailable +[phone] Shani Stephenson MD Unavailable +[phone] Yomi Campos PhD Unavailable +[phone] Ita Newton Unavailable Unavailable Kenya Jennings MD Unavailable +[phone] Herber Lopez MD Unavailable +[phone] Сергей Dumont [facility] Unavailable Unavailable Kenya Jennings MD Unavailable +[phone] Jesse Arvizu MD Unavailable Luis Dudley MD Unavailable +[phone] Carmen Cole PA-C Unavailable +[phone] Racheal Ng MD Unavailable +[phone] Encounter Details Date Type Department Care Team (Late st Contact Info) Description 08/30/2020 MyC Medical Advice [facility] Cancer Clinic [address] [place] [address] Willow Shcwarz, RN Social History Tobacco Use Types Packs/Day Years Used Date Smoking Tobacco: Never Smokeless Tobacco: Never Alcohol Use Standard Drinks/Week Comments No 0 (1 standard drink = 0.6 oz pur e alcohol) PHQ-2 Answer Date Recorded PHQ-2 Score 2 06/15/2020 Comments No Sex and Gender Information Value Date Recorded Sex Assigned at Female 11/14/2020 10:33 PM CDT Legal Sex Female 3:58 AM GEOTHERMAL OPERATING ENGINEER Gender Identity other 11/14/2020 10:33 PM CDT Sexual Orientation Lesbian 06/22/2019 4: 20 AM GEOTHERMAL OPERATING ENGINEER COVID-19 Exposure Response Date Recorded In [...] Visit [facility] [address] [place] [address] [phone] 11/23/2024 1:30 PM CDT Office Visit [facility] Mental Health & Addiction [address] [phone] Melanie Boykin MD [address] [place] [address] 928484 Gloria Elizalde MD [address] [place] [address] [phone] 12/03/2024 3:00 PM CDT Office Visit [facility] Psychiatry [facility] [address] [place] [phone] Jesse Arvizu MD [address] [place] [address] 81664 12/15/2024 11:40 AM CDT Ancillary Procedure [facility] Imaging Center [place] Clinic [address] [phone] Yudy Pompa MD [address] [place] [address] 862345 12/22/2024 11:40 AM CDT Oncology Visit [facility] Cancer Clinic [address] [place] [address] [phone] Yudy Pompa MD [address] [place] [address] 54086 02/22/2025 12:30 PM CDT Office Visit [facility] Plastic and Reconstructive Surgery Clinic [address] [phone] Kenya Jennings MD [address] [place] [address] 773135 03/12/2025 1:00 PM GEOTHERMAL OPERATING ENGINEER Office Visit [facility] Internal Medicine [address] [phone] Mamadou Bowie MD [address] [place] [address] 51507 03/23/2025 8:00 AM GEOTHERMAL OPERATING ENGINEER Hospital Encounter [facility] PeriOp Services [address] [place] [address] [phone] Kenya Jennings MD [address] [place] [address] 886765 03/23/2025 8:00 AM GEOTHERMAL OPERATING ENGINEER - 03/23/2025 12:05 PM GEOTHERMAL OPERATING ENGINEER Surgery [facility] PeriOp Services [address] [place] [address] [phone] Kenya Jennings MD [address] [place] [address] [phone] MASTECTOMY, BILATERAL, SIMPLE, NO nipple grafts. OnQ 03/30/2025 10:00 AM GEOTHERMAL OPERATING ENGINEER Office Visit [facility] Plastic and Reconstructive Surgery Clinic [address] [place] [phone] Lynn Parks APRN ONION TOPPER [address] [place] [address] 264605 04/16/2025 1:00 PM GEOTHERMAL OPERATING ENGINEER Office Visit [facility] Internal Medicine [address] [place] [phone] Mamadou Bowie MD [address] [place] [address] 40573 05/03/2025 4:00 PM GEOTHERMAL OPERATING ENGINEER Office Visit [facility] Plastic and Reconstructive Surgery Clinic [address] [phone] Kenya Jennings MD [address] [place] [address] 195 [place], [place] 945495 08/17/2025 12:15 PM CDT Office Visit [facility] Dermatology Clinic [address] [place] [phone] Herber Lopez MD [address] [place] [address] 98 [place], [place] 161465 Scheduled Procedures Name Priority Associated Diagnoses Date/Ti me MASTECTOMY, BILATERAL, FOR GENDER AFFIRMATION Gender dysphoria in adult 03/23/2025 8:00 AM GEOTHERMAL OPERATING ENGINEER documented as of this encounter Visit Diagnoses Not on filedocumented in this encounter Additional Health Concerns Assessment Noted Time PHQ-9 Depression Total Score: 5 06/16/19 21 7:05 AM GEOTHERMAL OPERATING ENGINEER documented as of this encounter Care Teams Trade Economist Relationship Specialty Start Date End Date Yudy Mathews MD [address] [place] [address] 395 [place] [address] PCP - General Internal Medicine 10/17/18 04/18/21 Torey Luna MD [address] [place] [address] 99777 PCP - General Internal Medicine 04/19/21 03/17/23 Mamadou Bowie MD [address] [place] [address] 39066 PCP - General 03/18/23 iCndy [place] [address] Resident Internal Medicine 12/07/14 Kaitlin Branch MD [address] [place] [address] 39922 clinical care coordinator 01/02/16 10/17/20 Trevor Espino MD [address] [place] [address] 71462 Urology 05/16/16 Melanie Boykin MD [address] [place] [address] 33412 clinical care coordinator 12/10/16 11/07/23 Jaci Whitlock APRN ONION TOPPER [address] [place] [address] 395 [place] [address] Nurse Practitioner - Women's Health 12/14/16 Shanelle Mcgowan MD [address] [place] [address] 28626 Assigned Surgical Provider 02/26/20 07/29/[address] [facility] [address] [place] [address] Physician Internal Medicine 07/11/20 Yudy Mathews MD [facility] [address] Assigned PCP 07/25/20 04/22/21 Antonette Castro PA-C [address] [place] [address] Assigned Heart and Vascular Provider 07/20/20 04/08/21 Yudy Pompa MD [address] [place] [address] [phone] Assigned Cancer Care Provider 08/21/20 Jessi Mcfadden MD 2450 [facility] F282/2A [place], [place] 893934 Resident Psychiatry 11/08/20 12/23/22 Mary Carmen Rodriguez MD [address] [address] Dermatology 11/09/20 Herber Lopez MD [address] [address] Dermapathology 11/09/20 Yomi Izquierdo DPM [address] [facility] 300 [place] [address] Assigned Musculoskeletal Provider 12/04/20 06/08/22 Antonette Castro PA-C [address] [place] [address] 79000 Assigned Gastroenterology Provider 04/09/21 07/08/21 Torey Luna MD [address] [place] [address] 95720 Assigned PCP 04/23/21 03/22/23 Herber Lopez MD [address] [place] [address] 06841 Assigned Surgical Provider 07/30/21 11/17/21 Maurilio Carlson MD [address] [place] [address] 089165 Assigned Surgical Provider 11/18/21 11/23/22 Herber Lopez MD [address] [place] [address] 21577 Assigned Surgical Provider 11/24/22 12/21/22 Gloria Elizalde MD [address] [place] [address] 63095 Resident 12/24/22 Olena Smith INTERNATIONAL SPECIALIST Specialty Assistant Merchandiser [employer] - Clinical 12/25/22 01/03/23 [place] [address] [place] [address] Assigned Surgical Provider 12/22/22 05/17/23 Mamadou Bowie MD [address] [place] [address] 58035 Assigned PCP 03/23/23 Herber Lopez MD [address] [place] [address] 453925 Assigned Surgical Provider 05/18/23 07/25/24 [place] [address] [place] [address] [phone] clinical care coordinator & Neurology - Child & Adolescent Psychiatry 11/08/23 Shani Stephenson MD [address] [place] [address]455 Resident Psychiatry 11/08/23 Yomi Campos, PhD [address] [place] [address] 763984 Assigned Behavioral Health Provider 01/27/24 08/25/24 Ita Newton Specialty Assistant Merchandiser 06/04/24 Kenya Jennings MD [address] [place] [address] 776615 Plastic Surgery 06/04/24 Herber Lopez MD [address] [place] [address] 576395 Assigned Dermatology Provider 07/26/24 Сергей Dumont [facility] Stevedore Dock 08/13/24 Kenya Jennings MD [address] [place] [address] 389555 Assigned Surgical Provider 08/26/24 Jesse Arvizu MD 5775 [place], [place] 564156 Assigned Behavioral Health Provider 08/26/24 09/24/24 Luis Dudley MD 240 [place], [place] 039704 Assigned Behavioral Health Provider 09/25/24 10/25/24 Carmen Cole PA-C 6363 [facility] [address] [place], [place] 826375 Assigned Sleep Provider 09/25/24 Racheal Ng MD 2450 [facility] F282 [place], [place] [phone] Assigned Behavioral Health Provider 10/26/24 documented as of this encounter
--- OUTSIDE RECORDS SUMMARY | 2024-10-28 19:21 | XMS_ITS | Encounter Summary ---
Author Organization [facility] Address [address] [place] [address] 25188 Care Team Providers Care Licensed Funeral Director Name Role Phone RichielelaReinadanitza Low Unavailable +[phone] Kaitlin Branch MD Unavailable +[phone] Trevor Espino MD Unavailable +[phone] Melanie Boykin MD Unavailable +[phone] Jaci Whitlock APRN SIZE MIXER Unavailable + Yudy Mathews MD Primary Care Provider [phone] Juan M Smith MD, Madhuri Unavailable +[phone] Doris Ricci MD Unavailable +[phone] Yudy Mathews MD Unavailable +[phone] Antonette Castro PA-C Unavailable +[phone] Yudy Pompa MD Unavailable +[phone] Jessi Mcfadden MD Unavailable +[phone] Mary Carmen Rodriguez MD Unavailable + Herber Lopez MD Unavailable +[phone] Yomi Izquierdo DPM Unavailable +[phone] Torey Luna MD Primary Care Provider +[phone] Antonette Castro PA-C Unavailable +[phone] Torey Luna MD Unavailable +[phone] Herber Lopez MD Unavailable +[phone] Maurilio Carlson MD Unavailable Herber Lopez MD Unavailable +[phone] Gloria Elizalde MD Unavailable +[phone] Olena Smith FLIGHT ATTENDANT/INFLIGHT MANAGER Unavailable Unavailable Maurilio Carlson MD Unavailable Mamadou Bowie MD Primary Care Provider [phone] Mamadou Bowie MD Unavailable Herber Lopez MD Unavailable +[phone] Makenzie Romano MD Unavailable +[phone] Shani Stephenson MD Unavailable +[phone] Yomi Campos PhD Unavailable +[phone] Ita Newton Unavailable Unavailable Kenya Jennings MD Unavailable +[phone] Herber Lopez MD Unavailable +[phone] Сергей Dumont [facility] Unavailable Unavailable Kenya Jennings MD Unavailable +[phone] Jesse Arvizu MD Unavailable Luis Dudley MD Unavailable +[phone] Carmen Cole PA-C Unavailable +[phone] Racheal Ng MD Unavailable +[phone] Encounter Details Date Type Department Care Team (Late st Contact Info) Description 08/30/2020 MyC Medical Advice [facility] Cancer Clinic [address] [place] [address] Willow Schwarz, RN Social History Tobacco [...] PM CDT Legal Sex Female 3:58 AM CHURNER Gender Identity other 11/14/2020 10:33 PM CDT Sexual Orientation Lesbian 06/22/2019 4: 20 AM CHURNER COVID-19 Exposure Response Date Recorded In the last month, have you been in contact with someone who was confirmed or suspected to have Coronavirus / COVID-19? No / Unsure 08/30/2020 9:10 AM CDT documented as of this encounter Plan of Treatment Upcoming Encounters Date Type Department Care Team (Latest Contact Info) Description 10/29/2024 11:00 AM CDT Virtual Visit [facility] [address] [place] [address] [phone] 11/23/2024 1:30 PM CDT Office Visit [facility] Mental Health & Addiction [address] [phone] Melanie Boykin MD [address] [place] [address] [phone] Gloria Elizalde MD [address] [place] [address] 349375 12/03/2024 3:00 PM CDT Office Visit [facility] Psychiatry [facility] [address] [place] [phone] Jesse Arvizu MD [address] [place] [address] 02[address] 12/15/2024 11:40 AM CDT Ancillary Procedure [facility] Imaging [facility] Clinic [address] [phone] Yudy Pompa MD [address] [place] [address] 528825 12/22/2024 11:40 AM CDT Oncology Visit [facility] Cancer Clinic [address] [place] [address] [phone] Yudy Pompa MD [address] [place] [address] 95408 02/22/2025 12:30 PM CDT Office Visit [facility] [address] [phone] Kenya Jennings MD [address] [place] [address] 636985 03/12/2025 1:00 PM [facility]NER Office Visit [facility] Internal Medicine [address] [phone] Mamadou Bowie MD [address] [place] [address] 75140 03/23/2025 8:00 AM [facility] Hospital Encounter [facility] [address] [place] [address] [phone] Kenya Jennings MD [address] [place] [address] 498525 03/23/2025 8:00 AM CHURNER - 03/23/2025 12:05 PM CH[facility]NER Surgery [facility] [address] [place] [address] [phone] Kenya Jennings MD [address] [place] [address] 069235 MASTECTOMY, BILATERAL, SIMPLE, NO nipple grafts. OnQ 03/30/2025 10:00 AM [facility] Office Visit [facility] [address] [place] [phone] Lynn Parks APRN SIZE MIXER [address] [place] [address] 316255 04/16/2025 1:00 PM [facility]NER Office Visit [facility] Internal Medicine [address] [place] [phone] Mamadou Bowie MD [address] [place] [address] 77324 05/03/2025 4:00 PM [facility] Office Visit [facility] [address] [phone] Kenya Jennings MD [address] [place] [address] 195 [place], [place] 935715 08/17/2025 12:15 PM CDT Office Visit [facility] Dermatology [facility] [address] [place] [phone] Herber Lopez MD [address] [place] [address] 98 [place], [place] 139025 Scheduled Procedures Name Priority Associated Diagnoses Date/Ti me MASTECTOMY, BILATERAL, FOR GENDER AFFIRMATION Gender dysphoria in adult 03/23/2025 8:00 AM CHURNER documented as of this encounter Visit Diagnoses Not on filedocumented in this encounter Additional Health Concerns Assessment Noted Time PHQ-9 Depression Total Score: 5 06/16/19 21 7:05 AM CHURNER documented as of this encounter Care Teams Licensed Funeral Director Relationship Specialty Start Date End Date Yudy Mathews MD [address] [place] [address] 395 [place] [address] PCP - General Internal Medicine 10/17/18 04/18/21 Torey Luna MD [address] [place] [address] 37531 PCP - General Internal Medicine 04/19/21 03/17/23 Mamadou Bowie MD [address] [place] [address] 63647 PCP - General 03/18/23 Cindy [place] [address] Resident Internal Medicine 12/07/14 Kaitlin Branch MD [address] [place] [address] 80959 television news reporter 01/02/16 10/17/20 Trevor Espino MD [address] [place] [address] 05143 Urology 05/16/16 Melanie Boykin MD [address] [place] [address] 73053 television news reporter 12/10/16 11/07/23 Jaci Whitlock APRN SIZE MIXER [address] [place] [address] 395 [place] [address] Nurse Practitioner - Women's Health 12/14/16 Shanelle Mcgowan MD [address] [place] [address] 29813 Assigned Surgical Provider 02/26/20 07/29/21 Doris Ricci MD [facility] [address] [place] [address] Physician Internal Medicine 07/11/20 Yudy Mathews MD [facility] [place] [address] Assigned PCP 07/25/20 04/22/21 Antonette Castro PA-C 909 [place] [address] Assigned Heart and Vascular Provider 07/20/20 04/08/21 Yudy Pompa MD [address] [place] [address] [phone] Assigned Cancer Care Provider 08/21/20 Jessi Mcfadden MD 2450 [facility] F282/2A [place], [place] [phone] Resident Psychiatry 11/08/20 12/23/22 Mary Carmne Rodriguez MD [address] [address] Dermatology 11/09/20 Herber Lopez MD [address] [address] Dermapathology 11/09/20 Yomi Izquierdo DPM 66348 [facility] [address] [place] [address] Assigned Musculoskeletal Provider 12/04/20 06/08/22 Antonette Castro PA-C [address] [place] [address] 57179 Assigned Gastroenterology Provider 04/09/21 07/08/21 Torey Luna MD [address] [place] [address] 87687 Assigned PCP 04/23/21 03/22/23 Herber Lopez MD [address] [place] [address] 65011 Assigned Surgical Provider 07/30/21 11/17/21 Maurilio Carlson MD [address] [place] [address] 637805 Assigned Surgical Provider 11/18/21 11/23/22 Herber Lopez MD [address] [place] [address] 98202 Assigned Surgical Provider 11/24/22 12/21/22 Gloria Elizalde MD [address] [place] [address] 92872 Resident 12/24/22 Olena Smith FLIGHT ATTENDANT/INFLIGHT MANAGER Specialty Analyst Programmer Trauma Doctor - Clinical 12/25/22 01/03/23 [place] [address] [place] [address] Assigned Surgical Provider 12/22/22 05/17/23 Maamdou Bowie MD [address] [place] [address] 65158 Assigned PCP 03/23/23 Herber Lopez MD [address] [place] [address] [phone] Assigned Surgical Provider 05/18/23 07/25/24 [place] [address] [place] [address] [phone] television news reporter & Neurology - Child & Adolescent Psychiatry 11/08/23 Shani Stephenson MD [address] [place] [address] Resident Psychiatry 11/08/23 Yomi Campos, PhD [address] [place] [address] 071974 Assigned Behavioral Health Provider 01/27/24 08/25/24 Ita Newton Specialty Analyst Programmer 06/04/24 Kenya Jennings MD [address] [place] [address] 155875 Plastic Surgery 06/04/24 Herber Lopez MD [address] [place] [address] 525855 Assigned Dermatology Provider 07/26/24 Сергей Dumont [facility] Trauma Doctor 08/13/24 Kenya Jennings MD [address] [place] [address] [phone] Assigned Surgical Provider 08/26/24 Jesse Arvizu MD 5775 [place], [place] 472256 Assigned Behavioral Health Provider 08/26/24 09/24/24 Luis Dudley MD 240 [place], [place] 027694 Assigned Behavioral Health Provider 09/25/24 10/25/24 Carmen Cole PA-C 6363 [facility] MA[address] 103 [place], [place] 757955 Assigned Sleep Provider 09/25/24 Racheal Ng MD 2450 [facility] F282 [place], [place] [phone] Assigned Behavioral Health Provider 10/26/24 documented as of this encounter
--- OUTSIDE RECORDS SUMMARY | 2024-10-28 19:21 | XMS_ITS | Encounter Summary ---
Author Organization [facility] Address [address] [place] [address] 31853 Care Team Providers Care Dispensing Audiologist Name Role Phone RichielelaCindy Unavailable +[phone] Kaitlin Branch MD Unavailable +[phone] Trevor Espino MD Unavailable +[phone] Melanie Boykin MD Unavailable [phone] Jaci Whitlock TECHNOLOGY PROFESSIONAL CLIP BOLTER AND WRAPPER Unavailable + Yudy Mathews MD Primary Care Provider [phone] Yudy Mathews MD Unavailable +[phone] Jaci Whitlock TECHNOLOGY PROFESSIONAL CLIP BOLTER AND WRAPPER Unavailable + Juan M Smith MD, Madhuri Unavailable +[phone] Doris Ricci MD Unavailable +[phone] Yudy Mathews MD Unavailable +[phone] Antonette Castro PA-C Unavailable +[phone] Yudy Pompa MD Unavailable +[phone] Jessi Mcfadden MD Unavailable + [phone] Mary Carmen Rodriguez MD Unavailable + Herber Lopez MD Unavailable +[phone] Yomi Izquierdo DPM Unavailable +[phone] Torey Luna MD Primary Care Provider + [phone] Antonette Castro PA-C Unavailable +[phone] Torey Luna MD Unavailable +[phone] Herber Lopez MD Unavailable +[phone] Maurilio Carlson MD Unavailable Herber Lopez MD Unavailable +[phone] Gloria Elizalde MD Unavailable +[phone] Olena Smith [facility] Unavailable Unavailable Maurilio Carlson MD Unavailable Mamadou Bowie MD Primary Care Provider [phone] AzebMamadou menchaca MD Unavailable Herber Lopez MD Unavailable +[phone] Makenzie Romano MD Unavailable +[phone] Shani Stephenson MD Unavailable +[phone] Yomi Campos PhD Unavailable +[phone] Ita Newton Unavailable Unavailable Kenya Jennings MD Unavailable + [phone] Herber Lopez MD Unavailable +[phone] Сергей Dumont [facility] Unavailable Unavailable Kenya Jennings MD Unavailable + [phone] Jesse Arvizu MD Unavailable Luis Dudley MD Unavailable +[phone] Carmen Cole-C Unavailable +[phone] Racheal Ng MD Unavailable +[phone] Encounter Details Date Type Department Care Team (Late st Contact Info) Description 12/26/[address] [facility] [place] [facility] 9[address] [place] [address] Aicha Lind APRN [facility] 420 [facility] 195 [place] [address] Social History Tobacco Use Types Packs/Day Years Used Date Smoking Tobacco: Never Smokeless Tobacco: Never Alcohol Use Standard Drinks/Week Comments No 0 (1 standard drink = 0.6 oz pur e alcohol) PHQ-2 Answer Date Recorded PHQ-2 Score 0 05/13/2018 Comments No Sex and Gender Information Value Date Recorded Sex Assigned at Female 11/14/2020 10:33 PM CDT Legal Sex Female 3:58 AM STOCK PATCH SAWYER Gender Identity other 11/14/2020 10:33 PM CDT Sexual Orientation Lesbian 06/22/2019 4: 20 AM STOCK PATCH SAWYER documented as of this encounter Miscellaneous Notes * Telephone Encounter - Aicha Lind APRN COMPUTER BUILDER - 12/22/2018 2:38 PM CDT Pulmonary Nodule Conference Patient Name: Gabriela Kraus Reason for conference discussion (brief overview): 53 yo diagnosed with stage 1A grade 1 endometrial adenocarcinoma in 2016, resection done including BSO, hysterectomy, LND. Recent PET scan done which demonstrated a 9.5 x 7 mm semisolid nodule in ASHVIN with mild uptake SUV 2.7. Some additional small p ulmonary nodules. Specific Question: Recommendations for further evaluation? Pertinent Histology: None Referring Physician: Jaci Whitlock APRN, CLIP BOLTER AND WRAPPER The patient's case was presented at the multidisciplinary conference for the above noted reason. There was a consensus recommendation for the following actions: This nodule is small, <1 cm, which would make for a low yield if a needle biopsy was attempted. It was recommended that she meet with thoracic surgery and have PFT's checked prior, to discuss trisegmentectomy, lingula sparing left upper lobectomy. Case Lead: Aicha Lind Interventional Radiology Staff Present: None Message sent to Jaci Whitlock, can help coordinate appts as needed. documented in this encounter Plan of Treatment Upcoming Encounters Date Type Department Care Team (Latest Contact Info) Description 10/29/2024 11:00 AM CDT Virtual Visit [facility] Psychiat[facility] [place] [facility] [address] [place] [address] [address] [place] [phone] 11/23/2024 1:30 PM CDT Office Visit [facility] Mental Health & Addiction [address] F[address] [phone] Melanie Boykin MD 8980 [place] [address] Gloria Elizalde MD [address] [place] [address] 833095 12/03/2024 3:00 PM CDT [facility] 5775 [facility] [address] [place] [phone] Jesse Arvizu MD 5775 [place] [address] 12/15/2024 11:40 AM CDT Ancillary Procedure [facility] Imaging Center CT Clinic [address] [place] [phone] Yudy Pompa MD [address] [place] [address] 745975 12/22/2024 11:40 AM CDT Oncology Visit [facility] [address] [place] [address] [phone] Yudy Pompa MD [address] [place] [address] 990905 02/22/2025 12:30 PM CDT Office Visit [facility] Plastic and Reconstructive Surgery Clinic [address] [place] [phone] Kenya Jennings MD [address] [place] [address] 171275 03/12/2025 1:00 PM STOCK PATCH SAWYER Office Visit [facility] Internal Medicine [address] [phone] Mamadou Bowie MD [address] [place] [address] 38[address] 03/23/2025 8:00 AM STOCK PATCH SAWYER Hospital Encounter [facility] [address] [place] [address] [phone] Kenya Jennings MD [address] [place] [address] 946165 03/23/2025 8:00 AM STOCK PATCH SAWYER - 03/23/2025 12:05 PM STOCK PATCH SAWYER Surgery [facility] [address] [place] [address] [phone] Kenya Jennings MD [address] [place] [address] 21038 MASTECTOMY, BILATERAL, SIMPLE, NO nipple grafts. OnQ 03/30/2025 10:00 AM STOCK PATCH SAWYER Office Visit [facility] Plastic and Reconstructive Surgery [address] [phone] Lynn Parks APRN [address] [address] 04/16/2025 1:00 PM STOCK PATCH SAWYER Office Visit [facility] Internal Medicine [address] [phone] Mamadou Bowie MD [address] [place] [address] 49[address] 05/03/2025 4:00 PM STOCK PATCH SAWYER Office Visit [facility] Plastic and Reconstructive Surgery Clinic [address] [phone] Kenya Jennings MD 420 [facility] 195 [place], [place] 163785 08/17/2025 12:15 PM CDT Office Visit [facility] Dermatology Clinic [place] 909 [facility] 3rd [place] [phone] Herber Lopez MD 420 [facility] 98 [place], [place] 352325 Scheduled Procedures Name Priority Associated Diagnoses Date/Ti me MASTECTOMY, BILATERAL, FOR GENDER AFFIRMATION Gender dysphoria in adult 03/23/2025 8:00 AM STOCK PATCH SAWYER documented as of this encounter Visit Diagnoses Not on filedocumented in this encounter Additional Health Concerns Assessment Noted Time PHQ-9 Depression Total Score: 5 11/11/19 12:38 PM CDT documented as of this encounter Care Teams Dispensing Audiologist Relationship Specialty Start Date End Date Yudy Mathews MD [address] [place] [address] 395 [place] [address] PCP - General Internal Medicine 10/17/18 04/18/21 Torey Luna MD [address] [address] PCP - General Internal Medicine 04/19/21 03/17/23 Mamadou Bowie MD [address] [place] [address] 96856 PCP - General 03/18/23 Cindy Ruiz [facility]TER [facility] [place] [address] Resident Internal Medicine 12/07/14 Kaitlin Branch MD [address] [place], [place] [phone] [place] [address] pin drafter 01/02/16 10/17/20 Trevor Espino MD [address] [place] [address] 75651 Urology 05/16/16 Melanie Byokin MD [address] [place] [address] 82242 pin drafter 12/10/16 11/07/23 Jaci Whitlock APRN CLIP BOLTER AND WRAPPER [address] [place] [address]94 Nurse Practitioner - Women's Health 12/14/16 [place] [address] Assigned PCP 09/24/19 07/24/20 Jaci Whitlock APRN CLIP BOLTER AND WRAPPER [address] [place] [address] 25949 Assigned OBGYN Provider 02/26/20 Shanelle Mcgowan MD [address] [place] [address] 85560 Assigned Surgical Provider 02/26/20 07/29/21 Doris Ricci MD [address] [address] Physician Internal Medicine 07/11/20 Yudy Mathews MD [facility] [address] [place] [address] Assigned PCP 07/25/20 04/22/21 Antonette Castro PA-C 909 [place] [address] Assigned Heart and Vascular Provider 07/20/20 04/08/21 Yudy Pompa MD 909 [place], [place] 246225 Assigned Cancer Care Provider 08/21/20 Jessi Mcfadden MD 2450 [facility] F282/2A [place], [place] 889834 Resident Psychiatry 11/08/20 12/23/22 Mary Carmen Rodriguez MD [address] 670615 Dermatology 11/09/20 Herber Lopez MD [address] [address] Dermapathology 11/09/20 Yomi Izquierdo DPM 38636 [facility] [address] [place], [place] 912167 Assigned Musculoskeletal Provider 12/04/20 06/08/22 Antonette Castro PA-C 9 [place] [address] Assigned Gastroenterology Provider 04/09/21 07/08/21 Torey Luna MD [address] [place] [address] 6[address] Assigned PCP 04/23/21 03/22/23 Herber Lopez MD [address] [place] [address] 54786 Assigned Surgical Provider 07/30/21 11/17/21 Maurilio Carlson MD [address] [place] [address] 988325 Assigned Surgical Provider 11/18/21 11/23/22 Herber Lopez MD [address] [place] [address] 17186 Assigned Surgical Provider 11/24/22 12/21/22 Gloria Elizalde MD [address] [place] [address] 8[address] Resident 12/24/22 Olena Smith NUCLEAR WORKER TECHNICIAN Specialty Special Officer Clinical Laboratory Director - Clinical 12/25/22 01/03/23 [place] [address] [place] [address] Assigned Surgical Provider 12/22/22 05/17/23 Mamadou Bowie MD [address] [place] [address] 914725 Assigned PCP 03/23/23 Herber Lopez MD [address] [place] [address] 41166 Assigned Surgical Provider 05/18/23 07/25/24 [place] [address] [place] [address] pin drafter & Neurology - Child & Adolescent Psychiatry 11/08/23 Shani Stephenson MD [address] [place] [address] Resident Psychiatry 11/08/23 Yomi Campos, PhD [address] [place] [address] Assigned Behavioral Health Provider 01/27/24 08/25/24 Ita Newton Specialty Special Officer 06/04/24 Kenya Jennings MD [address] [place] [address] 760255 Plastic Surgery 06/04/24 Herber Lopez MD [address] [place] [address] [phone] Assigned Dermatology Provider 07/26/24 Сергей Dumont [facility] Clinical Laboratory Director 08/13/24 Kenya Jennings MD [address] [place] [address] 953795 Assigned Surgical Provider 08/26/24 Jesse Arvizu MD 57[address] [place], [place] 325486 Assigned Behavioral Health Provider 08/26/24 09/24/24 Luis Dudley MD [address] [place] [address] [phone] Assigned Behavioral Health Provider 09/25/24 10/25/24 Carmen Cole PA-C 6363 [facility] VA[facility] Ruiz [address] [place] [address] Assigned Sleep Provider 09/25/24 Racheal Ng MD [address] [facility] [address] [place], [place] 766684 Assigned Behavioral Health Provider 10/26/24 documented as of this encounter
--- OUTSIDE RECORDS SUMMARY | 2024-10-28 19:21 | XMS_ITS | Encounter Summary ---
Author Organization [place] Address [address] [place] [address] 36511 Care Team Providers Care Staff Analyst Name Role Phone RichielelaCindy Unavailable +[phone] Kaitlin Branch MD Unavailable +[phone] Trevor Espino MD Unavailable +[phone] Melanie Boykin MD Unavailable [phone] Jaci Whitlock UNDERGROUND HEAVY EQUIPMENT OPERATOR COOK 3 PASTRY Unavailable + Yudy Mathews MD Primary Care Provider [phone] Yudy Mathews MD Unavailable +[phone] Jaci Whitlock UNDERGROUND HEAVY EQUIPMENT OPERATOR COOK 3 PASTRY Unavailable + Juan M Smith MD, Madhuri Unavailable +[phone] Doris Ricci MD Unavailable +[phone] Yudy Mathews MD Unavailable +[phone] Antonette Castro PA-C Unavailable +[phone] Yudy Pompa MD Unavailable +[phone] Jessi Mcfadden MD Unavailable + [phone] Mary Carmen Rodriguez MD Unavailable + Herber Lopez MD Unavailable +[phone] Yomi Izquierdo DPM Unavailable +[phone] Torey Luna MD Primary Care Provider +[phone] Antonette Castro PA-C Unavailable +[phone] Torey Luna MD Unavailable +[phone] Herber Lopez MD Unavailable +[phone] Maurilio Carlson MD Unavailable Herber Lopez MD Unavailable +[phone] Gloria Elizalde MD Unavailable +[phone] Olena Smith [facility] Unavailable Unavailable Maurilio Carlson MD Unavailable Mamadou Bowie MD Primary Care Provider [phone] Mamadou Bowie MD Unavailable Herber Lopez MD Unavailable +[phone] Makenzie Romano MD Unavailable +[phone] Shani Stephenson MD Unavailable +[phone] Yomi Campos PhD Unavailable +[phone] Ita Newton Unavailable Unavailable Kenya Jennings MD Unavailable + [phone] Herber Lopez MD Unavailable +[phone] Сергей Dumont [facility] Unavailable Unavailable Kenya Jennings MD Unavailable + [phone] Jesse Arvizu MD Unavailable Luis Dudley MD Unavailable +[phone] Carmen Cole-C Unavailable +[phone] Racheal Ng MD Unavailable + [phone] Encounter Details Date Type Department Care Team (Late st Contact Info) Description 03/16/2019 [facility] Gastroenterology and IBD Clinic [address] [phone] Gogo Arenas, RN Social History Tobacco Use Types Packs/Day Years Used Date Smoking Tobacco: Never Smokeless Tobacco: Never Alcohol Use Standard Drinks/Week Comments No 0 (1 standard drink = 0.6 oz pur e alcohol) PHQ-2 Answer Date Recorded PHQ-2 Score 0 05/13/2018 Comments No Sex and Gender Information Value Date Recorded Sex Assigned at Female 11/14/2020 10:33 PM CDT Legal Sex Female 3:58 AM NUCLEAR OPERATOR Gender Identity other 11/14/2020 10:33 PM CDT Sexual Orientation Lesbian 06/22/2019 4: 20 AM NUCLEAR OPERATOR documented as of this encounter Plan of Treatment Upcoming Encounters Date Type Department Care Team (Latest Contact Info) Description 10/29/2024 11:00 AM CDT Virtual Visit [facility] [address] [place] [address] [phone] 11/23/2024 1:30 PM CDT Office Visit [facility] Mental Health & Addiction [place] [phone] [place] [address] [phone] Melanie Boykin MD [address] [place] [address] 15706 Gloria Elizalde MD [address] [place] [address] 591615 12/03/2024 3:00 PM CDT Office Visit [facility] Psychiatry [facility] [address] [place] [address] [phone] Jesse Arvizu MD [address] [place] [address] 20857 12/15/2024 11:40 AM CDT Ancillary Procedure [facility] [place] [facility] [address] [phone] Yudy Pompa MD [address] [place] [address] 981305 12/22/2024 11:40 AM CDT Oncology Visit [facility] [address] [place] [address] [phone] Yudy Pompa MD [address] [place] [address] 03202 02/22/2025 12:30 PM CDT Office Visit [facility] Plastic and Reconstructive Surgery Clinic [address] [phone] Kenya Jennings MD [address] [place] [address] 667405 03/12/2025 1:00 PM NUCLEAR OPERATOR Office Visit [facility] Internal Medicine [address] [phone] Mamadou Bowie MD [address] [place] [address] 20495 03/23/2025 8:00 AM NUCLEAR OPERATOR Hospital Encounter [facility] PeriOp Services [address] [place] [address] [phone] Kenya Jennings MD [address] [place] [address] 079515 03/23/2025 8:00 AM NUCLEAR OPERATOR - 03/23/2025 12:05 PM NUCLEAR OPERATOR Surgery [facility] [address] [place] [address] [phone] Kenya Jennings MD [address] [place] [address] 935555 MASTECTOMY, BILATERAL, SIMPLE, NO nipple grafts. OnQ 03/30/2025 10:00 AM NUCLEAR OPERATOR Office Visit [facility] [address] [phone] Lynn Parks APRN COOK [address] [place] [address] 34147 04/16/2025 1:00 PM NUCLEAR OPERATOR Office Visit [facility] Internal Medicine [address]th [place] [phone] Mamadou Bowie MD [address] [place] [address] 04249 05/03/2025 4:00 PM NUCLEAR OPERATOR Office Visit [facility] [address] [phone] Kenya Jennings MD [address] [place] [address] 195 [place], [place] 653805 08/17/2025 12:15 PM CDT Office Visit [facility] Dermatology Clinic [address] [place] [phone] Herber Lopez MD [address] [place] [address] 98 [place], [place] 550515 Scheduled Procedures Name Priority Associated Diagnoses Date/Ti me MASTECTOMY, BILATERAL, FOR GENDER AFFIRMATION Gender dysphoria in adult 03/23/2025 8:00 AM NUCLEAR OPERATOR documented as of this encounter Visit Diagnoses Not on filedocumented in this encounter Additional Health Concerns Assessment Noted Time PHQ-9 Depression Total Score: 5 11/11/19 19 12:38 PM CDT documented as of this encounter Care Teams Staff Analyst Relationship Specialty Start Date End Date Yudy Mathews MD [address] [place] [address] 395 [place] [address] PCP - General Internal Medicine 10/17/18 04/18/21 Torey Luna MD [address] [place] [address] 49582 PCP - General Internal Medicine 04/19/21 03/17/23 Mamadou Bowie MD [address] [place] [address] 47888 PCP - General 03/18/23 Cindy Ruiz [facility] [place] [address] Resident Internal Medicine 12/07/14 Kaitlin Branch MD [address] [place] [address] 40264 electrician front 01/02/16 10/17/20 Trevor Espino MD [address] [place] [address] 11282 Urology 05/16/16 Melanie Boykin MD [address] [place] [address] 02461 electrician front 12/10/16 11/07/23 Jaci Whitlock APRN COOK [address] [place] [address] 92944 Nurse Practitioner - Women's Health 12/14/16 Yudy Mathews MD [facility] [place] [address] Assigned PCP 09/24/19 07/24/20 Jaci Whitlock APRN COOK [address] [place] [address] 41073 Assigned OBGYN Provider 02/26/20 Shanelle Mcgowan MD 9 [place] [address] Assigned Surgical Provider 02/26/20 07/29/21 Doris Ricci MD [facility] & [address] [address] Physician Internal Medicine 07/11/20 Yudy Mathews MD [facility] [place] [address] Assigned PCP 07/25/20 04/22/21 Antonette Castro PA-C [address] [place] [address] 23350 Assigned Heart and Vascular Provider 07/20/20 04/08/21 Yudy Pompa MD [address] [place] [address] 87261 Assigned Cancer Care Provider 08/21/20 Jessi Mcfadden MD [address] [place] [address]. F282/2A [place] [address] Resident Psychiatry 11/08/20 12/23/22 Mary Carmen Rodriguez MD [address] [place] [address] 98 [place] [address] Dermatology 11/09/20 Herber Lopez MD [address] [place] [address] 43380 Dermapathology 11/09/20 Yomi Izquierdo DPM [address] [facility] [address] [place] [address] Assigned Musculoskeletal Provider 12/04/20 06/08/22 Antonette Castro PA-C [address] [place] [address] 28099 Assigned Gastroenterology Provider 04/09/21 07/08/21 Torey Luna MD [address] [place] [address] 090[address] Assigned PCP 04/23/21 03/22/23 Herber Lopez MD [address] [place] [address] 78135 Assigned Surgical Provider 07/30/21 11/17/21 Maurilio Carlson MD [address] [place] [address] 36148 Assigned Surgical Provider 11/18/21 11/23/22 Herber Lopez MD [address] [place] [address] 83710 Assigned Surgical Provider 11/24/22 12/21/22 Gloria Elizalde MD [address] [place] [address] 84098 Resident 12/24/22 Smith, Olena, WELDING MACHINE OPERATOR [employer] Specialty Correctional Therapy Teacher Explosive Operator Supervisor - Clinical 12/25/22 01/03/23 [place] [address] [place] [address] Assigned Surgical Provider 12/22/22 05/17/23 Mamadou Bowie MD 909 [place] [address] Assigned PCP 03/23/23 Herber Lopez MD [address] [place] [address] 304255 Assigned Surgical Provider 05/18/23 07/25/24 Makenzie Romano MD [address] 357814 electrician front & Neurology - Child & Adolescent Psychiatry 11/08/23 Shani Stephenson MD [address] [place] [address] 55455 Resident Psychiatry 11/08/23 Yomi Campos, PhD [address] 740774 Assigned Behavioral Health Provider 01/27/24 08/25/24 Ita Newton Specialty Correctional Therapy Teacher 06/04/24 Kenya Jennings MD [address] [place] [address] 55455 Plastic Surgery 06/04/24 Herber Lopez MD [address] [place] [address] 409285 Assigned Dermatology Provider 07/26/24 Сергей Dumont, [facility] Explosive Operator Supervisor 08/13/24 Kneya Jennings MD 420 [facility] 195 [place], [place] 872745 Assigned Surgical Provider 08/26/24 Jesse Arvizu MD 5775 [place], [place] [phone] Assigned Behavioral Health Provider 08/26/24 09/24/24 Luis Dudley MD 240 [place], [place] [phone] Assigned Behavioral Health Provider 09/25/24 10/25/24 Carmen Cole PA-C [address] [facility] [address] [place], [place] 063345 Assigned Sleep Provider 09/25/24 Racheal Ng MD [address] [place] [phone] [place] [address] Assigned Behavioral Health Provider 10/26/24 documented as of this encounter
--- OUTSIDE RECORDS SUMMARY | 2024-10-28 19:21 | XMS_ITS | Encounter Summary ---
Author Organization [place] Address [address] [place] [address] 58544 Care Team Providers Care Contract Sheltered Workshop Supervisor Name Role Phone Cindy Ruiz Unavailable [phone] Trevor Espino MD Unavailable [phone] Melanie Boykin MD Unavailable [phone] Jaci Whitlock APRN BELLMAKER Unavailable + Doris Ricci MD Unavailable [phone] Yudy Pompa MD Unavailable [phone] Jessi Mcfadden MD Unavailable Mary Carmen Rodriguez MD Unavailable + Herber Lopez MD Unavailable +[phone] Yomi Izquierdo DPEulalia Unavailable +[phone] Torey Luna MD Primary Care Provider Troey Luna MD Unavailable +[phone] Maurilio Carlson MD Unavailable Herber Lopez MD Unavailable [phone] Gloria Elizalde MD Unavailable [phone] Olena Smith PLAN REP Unavailable Unavailable Maurilio Carlson MD Unavailable Mamadou Bowie MD Primary Care Provider [phone] Mamadou Bowie MD Unavailable Herber Lopez MD Unavailable [phone] Makenzie Romano MD Unavailable [phone] Shani Stephenson MD Unavailable Yomi Campos PhD Unavailable Ita Newton Unavailable Unavailable Kenya Jennings MD Unavailable [phone] Herber Lopez MD Unavailable +[phone] Сергей Dumont [facility] Unavailable Unavailable Kenya Jennings MD Unavailable [phone] Jesse Arvizu MD Unavailable Luis Dudley MD Unavailable Carmen Cole PA-C Unavailable Racheal Ng MD Unavailable [phone] Encounter Details Date Type Department Care Team (Late st Contact Info) Description 11/21/2021 [facility] Medical [facility] Plastic and Reconstructive Surgery Clinic [place] [phone] [facility] [address] 4th [place] [address] Kenya Jennings MD 420 [facility] 195 [place] [address] Social History Tobacco Use Types Packs/Day Years Used Date Smoking Tobacco: Never Smokeless Tobacco: Never Alcohol Use Standard Drinks/Week Comments No 0 (1 standard drink = 0.6 oz pur e alcohol) PHQ-2 Answer Date Recorded PHQ-2 Score 2 10/24/2021 Comments No Sex and Gender Information Value Date Recorded Sex Assigned at Female 11/14/2020 10:33 PM CDT Legal Sex Female 3:58 AM REGIONAL PROJECT MANAGER Gender Identity other 11/14/2020 10:33 PM CDT Sexual Orientation Lesbian 06/22/2019 4: 20 AM REGIONAL PROJECT MANAGER COVID-19 Exposure Response Date Recorded In the last 10 days, have yo u been in contact with someone who was confirmed or suspected to have Coronavirus/COVID-19? No / Unsure 11/24/2021 3:20 PM CDT documented as of this encounter Miscellaneous Notes * Telephone Encounter - Meño Yu RN - 11/22/2021 10:53 AM CDT [facility] : Care Coordination Note SITUATION Gabriela Kraus is a 56 year old adult who is receiving support for: gender dysphoria . BACKGROUND Pt saw Dr Jennings on 08/11/21 for gender affirming top surgery consult. ASSESSMENT Pt has LOS in letters tab in chart from 07/13/21. This letter has not been reviewed by SW. PLAN Follow-up plan: Notify SW that LOS is in chart for review Request case request from Dr Jennings Update pt on plan moving forward toward surgery Meño Yu RN documented in this encounter Plan of Treatment Upcoming Encounters Date Type Department Care Team (Latest Contact Info) Description 10/29/2024 11:00 AM CDT [facility] [address] [place] [address] [place] [phone] 11/23/2024 1:30 PM CDT Office Visit [facility] Mental Health & Addiction [address] F275 [facility] [address] [phone] Melanie Boykin MD [address] [place] [address] 192964 Gloria Elizalde MD [address] [place] [address] 697465 12/03/2024 3:00 PM CDT Office Visit [facility] Psychiatry [facility] [address] [place] [address] [place] [phone] Jesse Arvizu MD [address] [place] [address] 927876 12/15/2024 11:40 AM CDT Ancillary Procedure [facility] [address] [place] [phone] Yudy Pompa MD [address] [place] [address]1177 12/22/2024 11:40 AM CDT Oncology Visit [facility] [address] [place] [address] [phone] Yudy Pompa MD [address] [place] [address]89 02/22/2025 12:30 PM CDT Office Visit [facility] Plastic and Reconstructive Surgery Clinic [address]th [place] [phone] Kenya Jennings MD [address] [place] [address] 64981 03/12/2025 1:00 PM REGIONAL PROJECT MANAGER Office Visit [facility] Internal Medicine [address]th [place] [phone] Mamadou Bowie MD [address] [place] [address] 269[address] 03/23/2025 8:00 AM REGIONAL PROJECT MANAGER Hospital Encounter [facility] [address] [place] [address] [place] [phone] Kenya Jennings MD [address] [place] [address] 105875 03/23/2025 8:00 AM REGIONAL PROJECT MANAGER - 03/23/2025 12:05 PM REGIONAL PROJECT MANAGER Surgery [facility] [address] [place] [address] [place] [phone] Kenya Jennings MD [address] [place] [address] 482185 MASTECTOMY, BILATERAL, SIMPLE, NO nipple grafts. OnQ 03/30/2025 10:00 AM REGIONAL PROJECT MANAGER [facility] [address] [phone] Lynn Parks APRN [address] 329585 04/16/2025 1:00 PM REGIONAL PROJECT MANAGER Office Visit [facility] Internal Medicine [address] [phone] Mamadou Bowie MD [address] [place] [address] [phone] 05/03/2025 4:00 PM REGIONAL PROJECT MANAGER Office Visit [facility] [address] [phone] Kenya Jennings MD [address] [place] [address] 177215 08/17/2025 12:15 PM CDT Office Visit [facility] Dermatology Clinic [address] [phone] Herber Lopez MD [address] [place] [address] 98 [place], [place] 188975 Scheduled Procedures Name Priority Associated Diagnoses Date/Ti me MASTECTOMY, BILATERAL, FOR GENDER AFFIRMATION Gender dysphoria in adult 03/23/2025 8:00 AM REGIONAL PROJECT MANAGER documented as of this encounter Visit Diagnoses Not on filedocumented in this encounter Additional Health Concerns Assessment Noted Time PHQ-9 Depression Total Score: 5 10/23/ 22 9:38 PM CDT documented as of this encounter Care Teams Contract Sheltered Workshop Supervisor Relationship Specialty Start Date End Date Torey Luna MD [address] [address] PCP - General Internal Medicine 04/19/21 03/17/23 Mamadou Bowie MD [address] [place] [address] 94818 PCP - General 03/18/[address] [place], [place] 859[address] Resident Internal Medicine 12/07/14 Trevor Espino MD [address] [place] [address] 293195 Urology 05/16/16 Melanie Boykin MD [address] [place] [address] 806024 passenger flagman 12/10/16 11/07/23 Jaci Whitlock APRN BELLMAKER [address] [place] [address] [phone] Nurse Practitioner - Women's Health 12/14/16 Doris Ricci MD [facility] [address] [place] [address] Physician Internal Medicine 07/11/20 Yudy Pompa MD [address] [place] [address] 56573 Assigned Cancer Care Provider 08/21/20 Jessi Mcfadden MD [facility] F[facility]/2A [place], [place] 941134 Resident Psychiatry 11/08/20 12/23/22 Mary Carmen Rodriguez MD [address] 516535 Dermatology 11/09/20 Herber Lopez MD [address] [place] [address] 953845 Dermapathology 11/09/20 Yomi Izquierdo DPM 58[address] [address] [facility] [address] [place], [place] 434687 Assigned Musculoskeletal Provider 12/04/20 06/08/22 Torey Luna MD [address] 179135 Assigned PCP 04/23/21 03/22/23 Maurilio Carlson MD [address] [place] [address] 058555 Assigned Surgical Provider 11/18/21 11/23/22 Hebrer Lopez MD [address] [place] [address] 065125 Assigned Surgical Provider 11/24/22 12/21/22 Gloria Elizalde MD [address] [place] [address] 896725 Resident 12/24/22 Olena Smith, PLAN REP Specialty Plastic Tool Maker Supervisor [place] - Clinical 12/25/22 01/03/23 [place] [address] [place] [address] Assigned Surgical Provider 12/22/22 05/17/23 Mamadou Bowie MD [address] [place] [address] 213395 Assigned PCP 03/23/23 Herber Lopez MD [address] [place] [address]455 Assigned Surgical Provider 05/18/23 07/25/24 [place] [address] [place] [address] [phone] passenger flagman & Neurology - Child & Adolescent Psychiatry 11/08/23 Shani Stephenson MD [address] [place] [address] Resident Psychiatry 11/08/23 Yomi Campos, PhD [facility] [address] 967944 Assigned Behavioral Health Provider 01/27/24 08/25/24 Ita Newton Specialty Plastic Tool Maker 06/04/24 Kenya Jennings MD [address] [place] [address]455 Plastic Surgery 06/04/24 Herber Lopez MD [address] [place] [address] 967835 Assigned Dermatology Provider 07/26/24 Сергей Dumont, [facility] Supervisor [place] 08/13/24 Kenya Jennings MD 420 [facility] 195 [place], [place] 294775 Assigned Surgical Provider 08/26/24 Jesse Arvizu MD 5775 [place], [place] 274416 Assigned Behavioral Health Provider 08/26/24 09/24/24 Luis Dudley MD 240 [place], [place] 956864 Assigned Behavioral Health Provider 09/25/24 10/25/24 Carmen Cole PA-C 6363 [facility] [address] 103 [place], [place] 578705 Assigned Sleep Provider 09/25/24 Racheal Ng MD 2450 [facility] F282 [place], [place] 93321454 Assigned Behavioral Health Provider 10/26/24 documented as of this encounter
--- OUTSIDE RECORDS SUMMARY | 2024-10-28 19:22 | XMS_ITS | Encounter Summary ---
Author Organization [facility] Address [address] [place] [address] 7[address]80 Care Team Providers Care Marriage And Family Teacher Name Role Phone RichielelaCindy Unavailable +[phone] Kaitlin Branch MD Unavailable +[phone] Trevor Espino MD Unavailable +[phone] Melanie Boykin MD Unavailable +[phone] Jaci Whitlock INSURANCE ADMINISTRATOR TRAFFIC WAREHOUSE SUPERVISOR Unavailable + Yudy Mathews MD Primary Care Provider [phone] Yudy Mathews MD Unavailable +[phone] Jaci Whitlock INSURANCE ADMINISTRATOR TRAFFIC WAREHOUSE SUPERVISOR Unavailable + Juan M Smith MD, Madhuri Unavailable +[phone] Doris Ricci MD Unavailable +[phone] Yudy Mathews MD Unavailable +[phone] Antonette Castro PA-C Unavailable +[phone] Yudy Pompa MD Unavailable Jessi Mcfadden MD Unavailable + [phone] Mary Carmen Rodriguez MD Unavailable + Herber Lopez MD Unavailable +[phone] Yomi Izquierdo DPM Unavailable +[phone] Torey Luna MD Primary Care Provider + [phone] Antonette Castro PA-C Unavailable +[phone] Torey Luna MD Unavailable +[phone] Herber Lopez MD Unavailable +[phone] Maurilio Carlson MD Unavailable Herber Lopez MD Unavailable +[phone] Gloria Elizalde MD Unavailable Olena Smith [facility] Unavailable Unavailable Maurilio Carlson MD Unavailable Mamadou Bowie MD Primary Care Provider +[phone] AzebMamadou menchaca MD Unavailable Herber Lopez MD Unavailable +[phone] Makenzie Romano MD Unavailable +[phone] Shani Stephenson MD Unavailable +[phone] Yomi Campos PhD Unavailable +[phone] Ita Newton Unavailable Unavailable Kenya Jennings MD Unavailable + [phone] Herber Lopez MD Unavailable +[phone] Сергей Dumont [facility] Unavailable Unavailable Kenya Jennings MD Unavailable + [phone] Jesse Arvizu MD Unavailable Luis Dudley MD Unavailable +[phone] Carmen Cole-C Unavailable +[phone] Racheal Ng MD Unavailable + [phone] Reason for Visit * Reason Onset Date Comments MyChart Communication 01/29/2020 Encounter Details Date Type Department Care Team (Late st Contact Info) Description 01/29/2020 [facility] [address] [facility] [address] [place] [address] Yudy Mathews MD [facility] [place] [address] MyChart Communication Social History Tobacco Use Types Packs/Day Years Used Date Smoking Tobacco: Never Smokeless Tobacco: Never Alcohol Use Standard Drinks/Week Comments No 0 (1 standard drink = 0.6 oz pur e alcohol) PHQ-2 Answer Date Recorded PHQ-2 Score 1 06/22/2019 Comments No Sex and Gender Information Value Date Recorded Sex Assigned at Female 11/14/2020 10:33 PM CDT Legal Sex Female 3:58 AM READING INTERVENTION TEACHER Gender Identity other 11/14/2020 10:33 PM CDT Sexual Orientation Lesbian 06/22/2019 4: 20 AM READING INTERVENTION TEACHER COVID-19 Exposure Response Date Recorded In the last month, have you been in contact with someone who was confirmed or suspected to have Coronavirus / COVID-19? Unable to assess 01/27/2020 12:28 PM CDT documented as of this encounter Plan of Treatment Upcoming Encounters Date Type Department Care Team (Latest Contact Info) Description 10/29/2024 11:00 AM CDT [facility] [address] [place] [address] [phone] 11/23/2024 1:30 PM CDT Office Visit [facility] Mental Health & Addiction [place] [phone] [place] [address] [phone] Melanie Boykin MD [address] [place] [address] 13037 Gloria Elizalde MD [address] [place] [address] 39972 12/03/2024 3:00 PM CDT Office Visit [facility] [address] [place] [address] [place] [address] [phone] Jesse Arvizu MD [address] [place] [address] 98894 12/15/2024 11:40 AM CDT Ancillary Procedure [facility] [address]st [place] [phone] Yudy Pompa MD [address] [place] [address] 21118 12/22/2024 11:40 AM CDT Oncology Visit [facility] [address] [place] [address] [phone] Yudy Pompa MD [address] [place] [address] 974915 02/22/2025 12:30 PM CDT Office Visit [facility] Plastic and Reconstructive Surgery Clinic [address] [place] [phone] Kenya Jennings MD [address] [place] [address] 096[address] 03/12/2025 1:00 PM READING INTERVENTION TEACHER Office Visit [facility] Internal Medicine [address] [phone] Mamadou Bowie MD [address] [place] [address] 07021 03/23/2025 8:00 AM READING INTERVENTION TEACHER Hospital Encounter [facility] PeriOp Services [address] [place] [address] SHOLA MELTON [phone] Kenya Jennings MD [address] [place] [address] 170635 03/23/2025 8:00 AM READING INTERVENTION TEACHER - 03/23/2025 12:05 PM READING INTERVENTION TEACHER Surgery [facility] [address] [place] [address] SHOLA MELTON [phone] Kenya Jennings MD [address] [place] [address] 195 [place], [place] 845715 MASTECTOMY, BILATERAL, SIMPLE, NO nipple grafts. OnQ 03/30/2025 10:00 AM READING INTERVENTION TEACHER Office Visit [facility] [address] [phone] Lynn Parks APRN [address] [address] 04/16/2025 1:00 PM READING INTERVENTION TEACHER Office Visit [facility] Internal Medicine [address] [phone] Mamadou Bowie MD [address] [place] [address] 134115 05/03/2025 4:00 PM READING INTERVENTION TEACHER Office Visit [facility] [address] [phone] Kenya Jennings MD [address] [place] [address] 01350 08/17/2025 12:15 PM CDT Office Visit [facility] Dermatology Clinic [address] [place] [phone] Herber Lopez MD [address] [place] [address] 98 [place], [place] 326785 Scheduled Procedures Name Priority Associated Diagnoses Date/Ti me MASTECTOMY, BILATERAL, FOR GENDER AFFIRMATION Gender dysphoria in adult 03/23/2025 8:00 AM READING INTERVENTION TEACHER documented as of this encounter Visit Diagnoses Not on filedocumented in this encounter Additional Health Concerns Assessment Noted Time PHQ-9 Depression Total Score: 3 06/22/19 20 1:01 PM READING INTERVENTION TEACHER documented as of this encounter Care Teams Marriage And Family Teacher Relationship Specialty Start Date End Date Yudy Mathews MD 420 [facility] 395 [place] [address] PCP - General Internal Medicine 10/17/18 04/18/21 Torey Luna MD [address] [place] [address] 78837 PCP - General Internal Medicine 04/19/21 03/17/23 Mamadou Bowie MD [address] [place] [address] 679555 PCP - General 03/18/23 Cindy Ruiz [address] [place], [place] 726080 Resident Internal Medicine 12/07/14 Kaitlin Branch MD [address] [place] [address] [phone] stencil cutter 01/02/16 10/17/20 Trevor Espino MD [address] [place] [address] 613225 Urology 05/16/16 Melanie Boykin MD [address] [place] [address] 897054 stencil cutter 12/10/16 11/07/23 Jaci Whitlock APRN TRAFFIC WAREHOUSE SUPERVISOR [address] [phone] Nurse Practitioner - Women's Health 12/14/16 [place] [address] Assigned PCP 09/24/19 07/24/20 Jaci Whitlock APRN CNP [address] [place] [address] 395 [place], [place] 050115 Assigned OBGYN Provider 02/26/20 Shanelle Mcgowan MD [address] [place] [address] 108005 Assigned Surgical Provider 02/26/20 07/29/21 Doris Ricci MD [address] [address] Physician Internal Medicine 07/11/20 [place] [address] Assigned PCP 07/25/20 04/22/21 Antonette Castro PA-C [address] [place] [address] 942195 Assigned Heart and Vascular Provider 07/20/20 04/08/21 Yudy Pompa MD [address] [place] [address] [phone] Assigned Cancer Care Provider 08/21/20 Jessi Mcfadden MD [address] [place] [address] F282/2A [place], [place] 678894 Resident Psychiatry 11/08/20 12/23/22 Mary Carmen Rodriguez MD [address] [place] [address] 078105 MD Dermatology 11/09/20 Hreber Lopez MD [address] [place] [address] 723145 Dermapathology 11/09/20 Yomi Izquierdo DPM [address] [facility] [address] [place], [place] 127857 Assigned Musculoskeletal Provider 12/04/20 06/08/22 Antonette Castro PA-C [address] [place] [address] [phone] Assigned Gastroenterology Provider 04/09/21 07/08/21 Torey Luna MD [address] [place] [address] [phone] Assigned PCP 04/23/21 03/22/23 Herber Lopez MD [address] [place] [address] 439105 Assigned Surgical Provider 07/30/21 11/17/21 Maurilio Carlson MD [address] [place] [address] 055015 Assigned Surgical Provider 11/18/21 11/23/22 Herber Lopez MD [address] [place] [address] 577475 Assigned Surgical Provider 11/24/22 12/21/22 Gloria Elizalde MD [address] [place] [address] 53965 Resident 12/24/22 Olena Smith, DESK MAKER Specialty Shell Assembler Cable Coverer - Clinical 12/25/22 01/03/23 [place] [address] [place] [address] 96873 Assigned Surgical Provider 12/22/22 05/17/23 Mamadou Bowie MD [address] [place] [address] 74292 Assigned PCP 03/23/23 Herber Lopez MD [address] [place] [address] 11197 Assigned Surgical Provider 05/18/23 07/25/24 Makenzie Romano MD [address] [place] [address] 220544 stencil cutter & Neurology - Child & Adolescent Psychiatry 11/08/23 Shani Stephenson MD [address] [place] [address] 048655 Resident Psychiatry 11/08/23 Yomi Campos, PhD [address] [place] [address] 93430 Assigned Behavioral Health Provider 01/27/24 08/25/24 tIa Newton Specialty Shell Assembler 06/04/24 Kenya Jennings MD 420 [facility] 195 [place] [address] Plastic Surgery 06/04/24 Herber Lopez MD 420 [facility] 98 [place] [address] Assigned Dermatology Provider 07/26/24 Сергей Dumont [facility] Cable Coverer 08/13/24 Kenya Jennings MD 420 [facility] 195 [place] [address] Assigned Surgical Provider 08/26/24 Jesse Arvizu MD 5775 [place] [address] Assigned Behavioral Health Provider 08/26/24 09/24/24 Luis Dudley MD [address] [place], [place] 978144 Assigned Behavioral Health Provider 09/25/24 10/25/24 Carmen Cole PA-C [address] [facility] [address] [place] [address] Assigned Sleep Provider 09/25/24 Racheal Ng MD [address] [place], [place] 819984 Assigned Behavioral Health Provider 10/26/24 documented as of this encounter
--- OUTSIDE RECORDS SUMMARY | 2024-10-28 19:22 | XMS_ITS | Encounter Summary ---
Author Organization [facility] Address [address] [place] [address] 15441 Care Team Providers Care Superintendent Overhead Distribution Name Role Phone RichieerlineusebiajudsonCindy Unavailable +[phone] Kaitlin Branch MD Unavailable [phone] Trevor Espino MD Unavailable +[phone] Melanie Boykin MD Unavailable +[phone] Jaci Whitlock APRN PERSONNEL GENERALIST MANAGER Unavailable + Yudy Mathews MD Primary Care Provider [phone] Yudy Mathews MD Unavailable +[phone] Juan M Smith MD, Shanelle Unavailable +[phone] Doris Ricci MD Unavailable +[phone] Yudy Mathews MD Unavailable +[phone] Antonette Castro PA-C Unavailable +[phone] Yudy Pompa MD Unavailable +[phone] Jessi Mcfadden MD Unavailable +[phone] Mary Carmen Rodriguez MD Unavailable + Hebrer Lopez MD Unavailable +[phone] Yomi Izquierdo DPEulalia Unavailable +[phone] Torey Luna MD Primary Care Provider + [phone] Antonette Castro PA-C Unavailable +[phone] Torey Luna MD Unavailable Herber Lopez MD Unavailable +[phone] Maurilio Carlson MD Unavailable Herber Lopez MD Unavailable +[phone] Gloria Elizalde MD Unavailable +[phone] Olena Smith [facility] Unavailable Unavailable Maurilio Carlson MD Unavailable Mamadou Bowie MD Primary Care Provider +[phone] Mamadou Bowie MD Unavailable Herber Lopez MD Unavailable +[phone] Makenzie Romano MD Unavailable +[phone] Shani Stephenson MD Unavailable +[phone] Yomi Campos PhD Unavailable +[phone] Ita Newton Unavailable Unavailable Kenya Jennings MD Unavailable +[phone] Hebrer Lopez MD Unavailable +[phone] Сергей Dumont [facility] Unavailable Unavailable Kenya Jennings MD Unavailable + [phone] Jesse Arvizu MD Unavailable Luis Dudley MD Unavailable +[phone] Carmen Cole-C Unavailable +[phone] Racheal Ng MD Unavailable +[phone] Encounter Details Date Type Department Care Team (Late st Contact Info) Description 07/13/2020 [facility] [address] [place] [phone] Shanelle Mcgowan MD [address] [place] [address]455 Social History Tobacco Use Types Packs/Day Years Used Date Smoking Tobacco: Never Smokeless Tobacco: Never Alcohol Use Standard Drinks/Week Comments No 0 (1 standard drink = 0.6 oz pur e alcohol) PHQ-2 Answer Date Recorded PHQ-2 Score 2 06/15/2020 Comments No Sex and Gender Information Value Date Recorded Sex Assigned at Female 11/14/2020 10:33 PM CDT Legal Sex Female 3:58 AM DIRECTOR OF CUSTOMER SERVICE Gender Identity other 11/14/2020 10:33 PM CDT Sexual Orientation Lesbian 06/22/2019 4: 20 AM DIRECTOR OF CUSTOMER SERVICE COVID-19 Exposure Response Date Recorded In the last month, have you been in contact with someone who was confirmed or suspected to have Coronavirus / COVID-19? No / Unsure 06/29/2020 6:04 AM DIRECTOR OF CUSTOMER SERVICE documented as of this encounter Plan of Treatment Upcoming Encounters Date Type Department Care Team (Latest Contact Info) Description 10/29/2024 11:00 AM CDT [facility] [address] [place] [address] [place] [phone] 11/23/2024 1:30 PM CDT Office Visit [facility] Mental Health & Addiction [place] [phone] [phone] Melanie Boykin MD [address] [place] [address] 857754 Gloria Elizalde MD [address] [place] [address] 312765 12/03/2024 3:00 PM CDT [facility] [address] [facility] [address] [place] [phone] Jesse Arvizu MD [address] [place] [address] 12/15/2024 11:40 AM CDT Ancillary Procedure [facility] Imaging [facility] Clinic [address] 1st [place] [phone] Yudy Pompa MD [address] [place] [address] 07283 12/22/2024 11:40 AM CDT Oncology Visit [facility] Cancer Clinic [address] [place] [address] [phone] Yudy Pompa MD [address] [place] [address] 06535 02/22/2025 12:30 PM CDT Office Visit [facility] Plastic and Reconstructive Surgery Clinic [address] [phone] Kenya Jennings MD [address] [place] [address] 149105 03/12/2025 1:00 PM DIRECTOR OF CUSTOMER SERVICE Office Visit [facility] Internal Medicine [address] [phone] Mamadou Bowie MD [address] [place] [address] 653355 03/23/2025 8:00 AM DIRECTOR OF CUSTOMER SERVICE Hospital Encounter [facility] PeriOp Services [address] [place] [address] [place] [phone] Kenya Jennings MD [address] [place] [address] 88[address] 03/23/2025 8:00 AM DIRECTOR OF CUSTOMER SERVICE - 03/23/2025 12:05 PM DIRECTOR OF CUSTOMER SERVICE Surgery [facility] [address] [place] [address] [phone] Kenya Jennings MD [address] [place] [address] 725865 MASTECTOMY, BILATERAL, SIMPLE, NO nipple grafts. OnQ 03/30/2025 10:00 AM DIRECTOR OF CUSTOMER SERVICE Office Visit [facility] Clinic [address] [phone] Lynn Parks APRN [address] [address] 04/16/2025 1:00 PM DIRECTOR OF CUSTOMER SERVICE Office Visit [facility] Internal Medicine [address] [phone] Mamadou Bowie MD [address] [place] [address] 847185 05/03/2025 4:00 PM DIRECTOR OF CUSTOMER SERVICE Office Visit [facility] Clinic [address] [phone] Kenya Jennings MD [address] [place] [address] 195 [place], [place] 601205 08/17/2025 12:15 PM CDT Office Visit [facility] Dermatology Clinic [address] [phone] Herber Lopez MD [address] [place] [address] 98 [place], [place] 949145 Scheduled Procedures Name Priority Associated Diagnoses Date/Ti me MASTECTOMY, BILATERAL, FOR GENDER AFFIRMATION Gender dysphoria in adult 03/23/2025 8:00 AM DIRECTOR OF CUSTOMER SERVICE documented as of this encounter Visit Diagnoses Not on filedocumented in this encounter Additional Health Concerns Assessment Noted Time PHQ-9 Depression Total Score: 5 06/16/19 21 7:05 AM DIRECTOR OF CUSTOMER SERVICE documented as of this encounter Care Teams Superintendent Overhead Distribution Relationship Specialty Start Date End Date Yudy Mathews MD [address] [place] [address] 395 [place] [address] PCP - General Internal Medicine 10/17/18 04/18/21 Torey Luna MD [address] [place] [address] 556475 PCP - General Internal Medicine 04/19/21 03/17/23 Mamadou Bowie MD [address] [place] [address] 10243 PCP - General 03/18/23 Cindy Ruiz [employer] [address] [place], [place] 966700 Resident Internal Medicine 12/07/14 Kaitlin Branch MD [address] [place] [address] 42589 amusement park ride mechanic 01/02/16 10/17/20 Trevor Espino MD [address] [place] [address] 377485 Urology 05/16/16 Melanie Boykin MD [address] [place] [address] 594074 amusement park ride mechanic 12/10/16 11/07/23 Jaci Whitlock APRN PERSONNEL GENERALIST MANAGER [address] [place] [address] 395 [place], [place] 734085 Nurse Practitioner - Women's Health 12/14/16 Yudy Mathews MD [facility] [place], [place] 292107 Assigned PCP 09/24/19 07/24/20 Shanelle Mcgowan MD [address] [place] [address] 76135 Assigned Surgical Provider 02/26/20 07/29/21 Doris Ricci MD [address] [address] Physician Internal Medicine 07/11/20 [place] [address] Assigned PCP 07/25/20 04/22/21 Antonette Castro PA-C [address] [place] [address] 13957 Assigned Heart and Vascular Provider 07/20/20 04/08/21 Yudy Pompa MD [address] [place] [address] 786285 Assigned Cancer Care Provider 08/21/20 Jessi Mcfadden MD [address] [place] [address] F282/2A [place], [place] 440794 Resident Psychiatry 11/08/20 12/23/22 Mary Carmen Rodriguez MD [address] [place] [address] 060095 Dermatology 11/09/20 Herber Lopez MD [address] [place] [address] 69454 Dermapathology 11/09/20 Yomi Izquierdo DPM [address] [facility] [address] [place] [address] Assigned Musculoskeletal Provider 12/04/20 06/08/22 Antonette Castro PA-C [address] [place] [address] 77473 Assigned Gastroenterology Provider 04/09/21 07/08/21 Torey Luna MD [address] [place] [address] 25710 Assigned PCP 04/23/21 03/22/23 Herber Lopez MD [address] [place] [address] 36544 Assigned Surgical Provider 07/30/21 11/17/21 Maurilio Carlson MD [address] [place] [address] 76224 Assigned Surgical Provider 11/18/21 11/23/22 Herber Lopez MD [address] [place] [address] 22918 Assigned Surgical Provider 11/24/22 12/21/22 Gloria Elizalde MD [address] [place] [address] 26334 Resident 12/24/22 Olena Smith LSW Specialty Train Attendant Property Underwriter - Clinical 12/25/22 01/03/23 [place] [address] [place] [address] Assigned Surgical Provider 12/22/22 05/17/23 Mamadou Bowie MD 909 [place] [address] Assigned PCP 03/23/23 Herber Lopez MD 420 [facility] 98 [place], [place] 313415 Assigned Surgical Provider 05/18/23 07/25/24 Makenzie Romano MD [address] 311874 amusement park ride mechanic & Neurology - Child & Adolescent Psychiatry 11/08/23 Shani Stephenson MD 420 [place] [address] Resident Psychiatry 11/08/23 Yomi Campos, PhD [address] [place], [place] 6306956 [place], [place] 289094 Assigned Behavioral Health Provider 01/27/24 08/25/24 Ita Newton Specialty Train Attendant 06/04/24 Kenya Jenninsg MD 420 [facility] 195 [place], [place] 525505 Plastic Surgery 06/04/24 Herber Lopez MD 420 [facility] 98 [place] [address] Assigned Dermatology Provider 07/26/24 Сергей Dumont, [facility] Property Underwriter 08/13/24 Kenya Jennings MD [address] [address] [facility] 195 [place], [place] 272545 Assigned Surgical Provider 08/26/24 Jesse Arvizu MD 5775 [place], [place] 850336 Assigned Behavioral Health Provider 08/26/24 09/24/24 Luis Dudley MD 240 [place], [place] 752204 Assigned Behavioral Health Provider 09/25/24 10/25/24 Carmen Cole PA-C 6363 [facility] [address] [place], [place] 868765 Assigned Sleep Provider 09/25/24 Racheal Ng MD 2450 [facility] F282 [place] [address] Assigned Behavioral Health Provider 10/26/24 documented as of this encounter
--- OUTSIDE RECORDS SUMMARY | 2024-10-28 19:22 | XMS_ITS | Encounter Summary ---
Author Organization [facility] Address [address] [place] [address] Care Team Providers Care Global Supply Chain Director Name Role Phone Cindy Ruiz Unavailable [phone] Trevor Espino MD Unavailable [phone] Melanie Boykin MD Unavailable [phone] Jaci Whitlock APRN BAGGAGE SMASHER Unavailable + Doris Ricci MD Unavailable +[phone] Yudy Pompa MD Unavailable [phone] Jessi Mcfadden MD Unavailable Mary Carmen Rodriguez MD Unavailable + Herber Lopez MD Unavailable +[phone] Yomi Izquierdo DPEulalia Unavailable [phone] Torey Luna MD Primary Care Provider Torey Luna MD Unavailable [phone] Maurilio Carlson MD Unavailable Herber Lopez MD Unavailable +[phone] Gloria Elizalde MD Unavailable [phone] Olena Smith WINDOWS VMWARE ENGINEER Unavailable Unavailable Maurilio Carlson MD Unavailable Mamadou Bowie MD Primary Care Provider [phone] Mamadou Bowie MD Unavailable Herber Lopez MD Unavailable +[phone] Makenzie Romano MD Unavailable [phone] Shani Stephenson MD Unavailable [phone] Andres Yomi Alek PhD Unavailable +[phone] Ita Newton Unavailable Unavailable Kenya Jennings MD Unavailable +[phone] Herber Lopez MD Unavailable +[phone] Сергей Dumont [facility] Unavailable Unavailable Kenya Jennings MD Unavailable [phone] Jesse Arvizu MD Unavailable Luis Dudley MD Unavailable [phone] Carmen Cole PA-C Unavailable +[phone] Racheal Ng MD Unavailable + [phone] Encounter Details Date Type Department Care Team (Late st Contact Info) Description 11/30/2021 [facility] [address] [place] [address] Jeniffer Rogers Social History Tobacco [...] PM CDT Legal Sex Female 3:58 AM SEASONAL DELIVERY DRIVER Gender Identity other 11/14/2020 10:33 PM CDT Sexual Orientation Lesbian 06/22/2019 4: 20 AM SEASONAL DELIVERY DRIVER COVID-19 Exposure Response Date Recorded In the last 10 days, have yo u been in contact with someone who was confirmed or suspected to have Coronavirus/COVID-19? No / Unsure 11/24/2021 3:20 PM CDT documented as of this encounter Plan of Treatment Upcoming Encounters Date Type Department Care Team (Latest Contact Info) Description 10/29/2024 11:00 AM CDT Virtual Visit [facility] [address] [facility] [address] [place] [phone] 11/23/2024 1:30 PM CDT Office Visit [facility] [address] [phone] Melanie Boykin MD 2450 [place], [place] 381554 Gloria Elizalde MD 420 [place], [place] 885515 12/03/2024 3:00 PM CDT [facility] [address] [facility] [address] [place] [phone] Jesse Arvizu MD [address] [place] [address] 18[address] 12/15/2024 11:40 AM CDT Ancillary Procedure [facility] [address] [place] [phone] Yudy Pompa MD [address] [place] [address] [phone] 12/22/2024 11:40 AM CDT Oncology Visit [facility] [address] [place] [address] [phone] Yudy Pompa MD [address] [place] [address] 149785 02/22/2025 12:30 PM CDT Office Visit [facility] [address] [place] [phone] Kenya Jennings MD [address] [place] [address] 03/12/2025 1:00 PM SEASONAL DELIVERY DRIVER Office Visit [facility] Internal Medicine [address] [phone] Mamadou Bowie MD [address] [place] [address] [phone] 03/23/2025 8:00 AM SEASONAL DELIVERY DRIVER Hospital Encounter [facility] PeriOp Services [address] [place] [address] [phone] Kenya Jennings MD [address] [place] [address] 03/23/2025 8:00 AM SEASONAL DELIVERY DRIVER - 03/23/2025 12:05 PM SEASONAL DELIVERY DRIVER Surgery [facility] [address] [place] [phone] Kenya Jennings MD [address] [place] [address] [phone] MASTECTOMY, BILATERAL, SIMPLE, NO nipple grafts. OnQ 03/30/2025 10:00 AM SEASONAL DELIVERY DRIVER Office Visit [facility] [address] [phone] Lynn Parks APRN [address] [address] 04/16/2025 1:00 PM SEASONAL DELIVERY DRIVER Office Visit [facility] Internal Medicine [address] [phone] Mamadou Bowie MD [address] [place] [address] 773255 05/03/2025 4:00 PM SEASONAL DELIVERY DRIVER Office Visit [facility] [place] [address] [place] [address] 4[address] [place] [phone] Kenya Jennings MD 420 [facility] 195 [place], [place] 202145 08/17/2025 12:15 PM CDT Office Visit [facility] [place] [address] [place] [address] 3[address] [place] [phone] Herber Lopez MD 420 [facility] 98 [place], [place] [phone] Scheduled Procedures Name Priority Associated Diagnoses Date/Ti me MASTECTOMY, BILATERAL, FOR GENDER AFFIRMATION Gender dysphoria in adult 03/23/2025 8:00 AM SEASONAL DELIVERY DRIVER documented as of this encounter Visit Diagnoses Not on filedocumented in this encounter Additional Health Concerns Assessment Noted Time PHQ-9 Depression Total Score: 5 10/24/19 22 9:38 PM CDT documented as of this encounter Care Teams Global Supply Chain Director Relationship Specialty Start Date End Date Torey Luna MD [address] [place] [address] 430235 PCP - General Internal Medicine 04/19/21 03/17/23 Mamadou Bowie MD [address] [place] [address] 88480 PCP - General 03/18/[address] [place] [address] Resident Internal Medicine 12/07/14 Trevor Espino MD [address] [place] [address] [phone] Urology 05/16/16 Melanie Boykin MD [address] [place] [address] 766194 aligning checker 12/10/16 11/07/23 Jaci Whitlock APRN BAGGAGE SMASHER [address] [place] [address] [phone] Nurse Practitioner - Women's Health 12/14/16 Doris Ricci MD [facility] & [address] [address] Physician Internal Medicine 07/11/20 Yudy Pompa MD [address] [place] [address] [phone] Assigned Cancer Care Provider 08/21/20 Jessi Mcfadden MD [address] [place] [address] F282/2A [place], [place] 954924 Resident Psychiatry 11/08/20 12/23/22 Mary Carmen Rodriguez MD [address] [place] [address] 844105 Dermatology 11/09/20 Herber Lopez MD [address] [place] [address] 339125 Dermapathology 11/09/20 Yomi Izquierdo DPM [address] [facility] 300 [place] [address] Assigned Musculoskeletal Provider 12/04/20 06/08/22 [place] Luna [place] [address] [place] [address] 73413 Assigned PCP 04/23/21 03/22/23 Maurilio Carlson MD [address] [place] [address] Assigned Surgical Provider 11/18/21 11/23/22 Herber Lopez MD [address] [place] [address] 499[address] Assigned Surgical Provider 11/24/22 12/21/22 Gloria Elizalde MD [address] [place] [address] 107[address] Resident 12/24/22 Olena Smith [facility] Specialty Concrete Stone Fabricator Nurse Aide Evaluator - Clinical 12/25/22 01/03/23 [place] [address] [place] [address] Assigned Surgical Provider 12/22/22 05/17/23 Mamadou Bowie MD [address] [place] [address] Assigned PCP 03/23/23 Herber Lopez MD [address] [place] [address] 26322 Assigned Surgical Provider 05/18/23 07/25/24 Makenzie Romano MD [address] [address] aligning checker & Neurology - Child & Adolescent Psychiatry 11/08/23 Shani Stephenson MD 420 [place], [place] 814175 Resident Psychiatry 11/08/23 Yomi Campos, PhD [address] [place] [address] 70774 Assigned Behavioral Health Provider 01/27/24 08/25/24 Ita Newton Specialty Concrete Stone Fabricator 06/04/24 Kenya Jennings MD 420 [facility] 195 [place], [place] 658705 Plastic Surgery 06/04/24 Herber Lopez MD 420 [facility] 98 [place], [place] 912375 Assigned Dermatology Provider 07/26/24 Сергей Dumont, [facility] Nurse Aide Evaluator 08/13/24 Kenya Jennings MD 420 [facility] 195 [place], [place] 687615 Assigned Surgical Provider 08/26/24 Jesse Arvizu MD 5775 [place] [address] Assigned Behavioral Health Provider 08/26/24 09/24/24 Luis Dudley MD 240 [place] [address] Assigned Behavioral Health Provider 09/25/24 10/25/24 Carmen Cole PA-C [address] [place] [address] Assigned Sleep Provider 09/25/24 Racheal Ng MD [address] [place] [place], [place] 244334 Assigned Behavioral Health Provider 10/26/24 documented as of this encounter
--- OUTSIDE RECORDS SUMMARY | 2024-10-28 19:22 | XMS_ITS | Encounter Summary ---
Author Organization [facility] Address [address] [place] [address] Care Team Providers Care Weight Loss Consultant Name Role Phone Cindy Ruiz Unavailable Trevor Espino MD Unavailable [phone] Melanie Boykin MD Unavailable [phone] Jaci Whitlock APRN FARM CONTRACTOR BUYER Unavailable + Doris Ricci MD Unavailable Yudy Pompa MD Unavailable [phone] Jessi Mcfadden MD Unavailable Mary Carmen Rodriguez MD Unavailable + Herber Lopez MD Unavailable Yomi Izquierdo DPEulalia Unavailable Torey Luna MD Primary Care Provider Torey Luna MD Unavailable [phone] Herber Lopez MD Unavailable Maurilio Carlson MD Unavailable Herber Lopez MD Unavailable Gloria Elizalde MD Unavailable [phone] Olena Smith Unavailable Unavailable Maurilio Carlson MD Unavailable Mamadou Bowie MD Primary Care Provider [phone] Mamadou Bowie MD Unavailable Herber Lopez MD Unavailable [phone] Makenzie Romano MD Unavailable [phone] Shani Stephenson MD Unavailable [phone] Yomi Campos PhD Unavailable [phone] Ita Newton Unavailable Unavailable Kenya Jennings MD Unavailable [phone] Herber Lopez MD Unavailable [phone] Сергей Dumont [facility] Unavailable Unavailable Kenya Jennings MD Unavailable [phone] Jesse Arvizu MD Unavailable Luis Dudley MD Unavailable [phone] Carmen Cole PA-C Unavailable +[phone] Racheal Ng MD Unavailable + [phone] Encounter Details Date Type Department Care Team (Late st Contact Info) Description 10/14/2021 [facility] D[facility]atology Clinic [address] [phone] Christian Brooks MD [address] [place] [address] 8098 [place] [address] Social History Tobacco Use Types Packs/Day Years Used Date Smoking Tobacco: Never Smokeless Tobacco: Never Alcohol Use Standard Drinks/Week Comments No 0 (1 standard drink = 0.6 oz pur e alcohol) PHQ-2 Answer Date Recorded PHQ-2 Total Score (Adult) - Positive if 3 or more points; Administer PHQ-9 if positive 1 08/29/2021 Comments No Sex and Gender Information Value Date Recorded Sex Assigned at Female 11/14/2020 10:33 PM CDT Legal Sex Female 3:58 AM HOLLOW TILE PARTITION ERECTOR Gender Identity other 11/14/2020 10:33 PM CDT Sexual Orientation Lesbian 06/22/2019 4: 20 AM HOLLOW TILE PARTITION ERECTOR documented as of this encounter Plan of Treatment Upcoming Encounters Date Type Department Care Team (Latest Contact Info) Description 10/29/2024 11:00 AM CDT [facility] [address] [facility] [address] [place] [phone] 11/23/2024 1:30 PM CDT Office Visit [facility] [address] F275 [address] [phone] Melanie Boykin MD [address] [place] [address] 715074 Gloria Elizalde MD [address] [place] [address] [phone] 12/03/2024 3:00 PM CDT Office Visit [facility] [address] [phone] Jesse Arvizu MD [address] [place] [address] 12/15/2024 11:40 AM CDT Ancillary Procedure [facility] Imaging Center CT Clinic [address] [place] [phone] Yudy Pompa MD [address] [place] [address] 248435 12/22/2024 11:40 AM CDT Oncology Visit [facility] [address] [place] [address] [phone] Yudy Pompa MD [address] [place] [address] 596495 02/22/2025 12:30 PM CDT Office Visit [facility] [address] [place] [phone] Kenya Jennings MD [address] [place] [address] 03/12/2025 1:00 PM HOLLOW TILE PARTITION ERECTOR Office Visit [facility] Internal Medicine [address] [phone] Mamadou Bowie MD [address] [place] [address] 03/23/2025 8:00 AM HOLLOW TILE PARTITION ERECTOR Hospital Encounter [facility] PeriOp Services [address] [place] [address] [phone] Kenya Jennings MD [address] [place] [address] 791535 03/23/2025 8:00 AM HOLLOW TILE PARTITION ERECTOR - 03/23/2025 12:05 PM HOLLOW TILE PARTITION ERECTOR Surgery [facility] [address] [place] [address] [phone] Kenya Jennings MD [address] [place] [address] [phone] MASTECTOMY, BILATERAL, SIMPLE, NO nipple grafts. OnQ 03/30/2025 10:00 AM HOLLOW TILE PARTITION ERECTOR Office Visit [facility] [address] [phone] Lynn Parks APRN [address] 667[address] 04/16/2025 1:00 PM HOLLOW TILE PARTITION ERECTOR Office Visit [facility] Internal Medicine [address] [phone] Mamadou Bowie MD [address] [place] [address] 73283 05/03/2025 4:00 PM HOLLOW TILE PARTITION ERECTOR Office Visit [facility] [place] [address] [place] [address] 4th [place] [phone] Kenya Jennings MD 420 [facility] 195 [place], [place] [address]95 08/17/2025 12:15 PM CDT Office Visit [facility]ermatology [facility] [place] [address] [place] [address] 3rd [place] [phone] Herber Lopez MD [address] [place] [address] 98 [place], [place] 497815 Scheduled Procedures Name Priority Associated Diagnoses Date/Ti me MASTECTOMY, BILATERAL, FOR GENDER AFFIRMATION Gender dysphoria in adult 03/23/2025 8:00 AM HOLLOW TILE PARTITION ERECTOR documented as of this encounter Visit Diagnoses Not on filedocumented in this encounter Additional Health Concerns Assessment Noted Time PHQ-9 Depression Total Score: 5 08/31/19 22 7:04 AM CDT documented as of this encounter Care Teams Weight Loss Consultant Relationship Specialty Start Date End Date Torey Luna MD [address] [place] [address] PCP - General Internal Medicine 04/19/21 03/17/23 Mamadou Bowie MD [address] [place] [address] 68763 PCP - General 03/18/23 [address] Ru[place] [address] Resident Internal Medicine 12/07/14 Trevor Espino MD 909 [place] [address] Urology 05/16/16 Melanie Boykin MD [address] [place] [address] railroad car repair supervisor 12/10/16 11/07/23 Jaci Whitlock APRN FARM CONTRACTOR BUYER [address] [place] [address] 24353 Nurse Practitioner - Women's Health 12/14/16 Doris Ricci MD [facility] & [address] [address] Physician Internal Medicine 07/11/20 Yudy Pompa MD [address] [place] [address] 61851 Assigned Cancer Care Provider 08/21/20 Jessi Mcfadden MD [address] [place] [address] F282/2A [place], [place] 198294 Resident Psychiatry 11/08/20 12/23/22 Mary Carmen Rodriguez MD [address] [place] [address] 448145 Dermatology 11/09/20 Herber Lopez MD [address] [place] [address] 00143 Dermapathology 11/09/20 Yomi Izquierdo DPM [address] [facility] [address] [place] [address] Assigned Musculoskeletal Provider 12/04/20 06/08/22 Torey Luna MD [address] [place] [address] 6[address] Assigned PCP 04/23/21 03/22/23 Herber Lopez MD 420 [facility] 98 [place] [address] Assigned Surgical Provider 07/30/21 11/17/21 Maurilio Carlson MD [address] [place] [address] 61490 Assigned Surgical Provider 11/18/21 11/23/22 Herber Lopez MD [address] [address] Assigned Surgical Provider 11/24/22 12/21/22 Gloria Elizalde MD [address] [place] [address] 29[address] Resident 12/24/22 Olena Smith LSW Specialty Chainstitch Binder Fleet Sales Manager - Clinical 12/25/22 01/03/23 [place] [address] [place] [address] Assigned Surgical Provider 12/22/22 05/17/23 Mamadou Bowie MD [address] [place] [address] 22464 Assigned PCP 03/23/23 Herber Lopez MD 420 [facility] 98 [place] [address] Assigned Surgical Provider 05/18/23 07/25/24 Makenzie Romano MD [address] 045994 railroad car repair supervisor & Neurology - Child & Adolescent Psychiatry 11/08/23 Shani Stephenson MD 420 [place], [place] 783405 Resident Psychiatry 11/08/23 Yomi Campos, PhD [address] [place] [address] 883844 Assigned Behavioral Health Provider 01/27/24 08/25/24 Ita Newton Specialty Chainstitch Binder 06/04/24 Kenya Jennings MD [address] [place] [address] 406385 Plastic Surgery 06/04/24 Herber Lopez MD [address] [address] Assigned Dermatology Provider 07/26/24 Сергей Dumont [facility] Fleet Sales Manager 08/13/24 Kenya Jennings MD [address] [place] [address] 116205 Assigned Surgical Provider 08/26/24 Jesse Arvizu MD 5775 [place] [address] Assigned Behavioral Health Provider 08/26/24 09/24/24 Luis Dudley MD 240 [place], [place] 648214 Assigned Behavioral Health Provider 09/25/24 10/25/24 Carmen Cole PA-C 6363 [facility] [address] [address] [place], [place] 239105 Assigned Sleep Provider 09/25/24 Racheal Ng MD 2450 [facility] F282 [place] [address] Assigned Behavioral Health Provider 10/26/24 documented as of this encounter
--- OUTSIDE RECORDS SUMMARY | 2024-10-28 19:22 | XMS_ITS | Encounter Summary ---
Author Organization [place] Address [address] [place] [address] Care Team Providers Care Track Sweeper Name Role Phone Cindy Ruiz Unavailable [phone] Trevor Espino MD Unavailable [phone] Melanie Boykin MD Unavailable [phone] Jaci Whitlock APRN AMERICAN SIGN LANGUAGE TEACHER Unavailable + Doris Ricci MD Unavailable [phone] Yudy Pompa MD Unavailable [phone] Jessi Mcfadden MD Unavailable Mary Carmen Rodriguez MD Unavailable + Herber Lopez MD Unavailable [phone] Yomi Izquierdo DPEulalia Unavailable [phone] Torey Luna MD Primary Care Provider [phone] Torey Luna MD Unavailable Maurilio Carlson MD Unavailable Herber Lopez MD Unavailable [phone] Gloria Elizalde MD Unavailable [phone] Olena Smith BILLING REP Unavailable Unavailable Maurilio Carlson MD Unavailable Mamadou Bowie MD Primary Care Provider [phone] Mamadou Bowie MD Unavailable Herber Lopez MD Unavailable [phone] Makenzie Romano MD Unavailable [phone] Shani Stephenson MD Unavailable [phone] Andres Yomi Alek PhD Unavailable Ita Newton Unavailable Unavailable Kenya Jennings MD Unavailable Herber Lopez MD Unavailable [phone] Сергей Dumont [facility] Unavailable Unavailable Kenya Jennings MD Unavailable Jesse Arvizu MD Unavailable Luis Dudley MD Unavailable Carmen Cole PA-C Unavailable Racheal Ng MD Unavailable [phone] Reason for Visit * Reason Onset Date Comments Patient Request for Note/Letter 11/22/2021 Amendment to letter for surgery Encounter Details Date Type Department Care Team (Late st Contact Info) Description 11/22/2021 [facility] Medical Advice [facility] [place] [id number] [address] Jessi Mcfadden MD 2450 [facility]. F282/2A [place] [address] Patient Request for Note/Letter (Amendment... Social History Tobacco Use Types Packs/Day Years Used Date Smoking Tobacco: Never Smokeless Tobacco: Never Alcohol Use Standard Drinks/Week Comments No 0 (1 standard drink = 0.6 oz pur e alcohol) PHQ-2 Answer Date Recorded PHQ-2 Score 2 10/24/2021 Comments No Sex and Gender Information Value Date Recorded Sex Assigned at Female 11/14/2020 10:33 PM CDT Legal Sex Female 3:58 AM BOOT MAKER Gender Identity other 11/14/2020 10:33 PM CDT Sexual Orientation Lesbian 06/22/2019 4: 20 AM BOOT MAKER COVID-19 Exposure Response Date Recorded In the last 10 days, have yo u been in contact with someone who was confirmed or suspected to have Coronavirus/COVID-19? No / Unsure 11/24/2021 3:20 PM CDT documented as of this encounter Plan of Treatment Upcoming Encounters Date Type Department Care Team (Latest Contact Info) Description 10/29/2024 11:00 AM CDT Virtual Visit [facility] [address] [place] [address] [phone] 11/23/2024 1:30 PM CDT Office Visit [facility] [place] [phone] [facility] [address] [phone] Melanie Boykin MD [address] [place] [address] 850144 Gloria Elizalde MD [address] [place] [address] 808985 12/03/2024 3:00 PM CDT Office Visit [facility] [address] [place] [address] [phone] Jesse Arivzu MD [address] [place] [address] 12/15/2024 11:40 AM CDT Ancillary Procedure [facility] [address] 1st [place] [phone] Yudy Pompa MD [address] [place] [address] [phone] 12/22/2024 11:40 AM CDT Oncology Visit [facility] [address] [place] [address] [phone] Yudy Pompa MD [address] [place] [address] 02/22/2025 12:30 PM CDT Office Visit [facility] [address] [phone] Kenya Jennings MD [address] [place] [address] 238165 03/12/2025 1:00 PM BOOT MAKER Office Visit [facility] Internal Medicine [address] [phone] Mamadou Bowie MD [address] [place] [address] 786255 03/23/2025 8:00 AM BOOT MAKER Hospital Encounter [facility] [address] [place] [address] [phone] Kenya Jennings MD [address] [place] [address] 817525 03/23/2025 8:00 AM BOOT MAKER - 03/23/2025 12:05 PM BOOT MAKER Surgery [facility] [address] [place] [address] [phone] Kenya Jennings MD [address] [place] [address] 290255 MASTECTOMY, BILATERAL, SIMPLE, NO nipple grafts. OnQ 03/30/2025 10:00 AM BOOT MAKER Office Visit [facility] [address] [phone] Lynn Parks APRN [address] 664195 04/16/2025 1:00 PM BOOT MAKER Office Visit [facility] Internal Medicine [address] 4th [place] [phone] Mamadou Bowie MD [address] [place] [address] 26[address] 05/03/2025 4:00 PM BOOT MAKER Office Visit [facility] [address] [phone] Kenya Jennings MD [address] [place] [address] 195 [place], [place] 868155 08/17/2025 12:15 PM CDT Office Visit [facility] [address] [place] [address] Herber Lopez MD [address] [place] [address] 98 [place], [place] [phone] Scheduled Procedures Name Priority Associated Diagnoses Date/Ti me MASTECTOMY, BILATERAL, FOR GENDER AFFIRMATION Gender dysphoria in adult 03/23/2025 8:00 AM BOOT MAKER documented as of this encounter Visit Diagnoses Not on filedocumented in this encounter Additional Health Concerns Assessment Noted Time PHQ-9 Depression Total Score: 5 10/24/19 22 9:38 PM CDT documented as of this encounter Care Teams Track Sweeper Relationship Specialty Start Date End Date Torey Luna MD [address] [place] [address] 80097 PCP - General Internal Medicine 04/19/21 03/17/23 Mamadou Bowie MD [address] [place] [address] 82232 PCP - General 03/18/23 Cindy Ruiz HUNTER PHILIP [facility] [address] [place], [place] 416390 Resident Internal Medicine 12/07/14 Trevor Espino MD 909 [place] [address] Urology 05/16/16 Melanie Boykin MD [address] [place] [address] 545[address] location and measurement technician 12/10/16 11/07/23 Jaci Whitlock APRN CNP 420 [facility] EM[facility]PARTMENT [address] [place], [place] 145665 Nurse Practitioner - Women's Health 12/14/16 Doris Ricci MD [facility] [address] [address] Physician Internal Medicine 07/11/20 Yudy Pompa MD 909 [place], [place] 239165 Assigned Cancer Care Provider 08/21/20 Jessi Mcfadden MD [address] [place] [address] F282/2A [place], [place] [phone] Resident Psychiatry 11/08/20 12/23/22 Mary Carmen Rodriguez MD 420 [facility] 98 [place], [place] 883295 Dermatology 11/09/20 Herber Lopez MD [address] [address] Dermapathology 11/09/20 Yomi Izquierdo DPM [address] [facility] [address] [place] [address] Assigned Musculoskeletal Provider 12/04/20 06/08/22 Torey Luna MD [address] [place] [address] 178845 Assigned PCP 04/23/21 03/22/23 Maurilio Carlson MD [address] [place] [address] 626405 Assigned Surgical Provider 11/18/21 11/23/22 Herber Lopez MD [address] [place] [address] Assigned Surgical Provider 11/24/22 12/21/22 Gloria Elizalde MD [address] [place] [address] Resident 12/24/22 Olena Smith BILLING REP Specialty Weatherization Field Technician Edge Stripper - Clinical 12/25/22 01/03/23 [place] [address] [place] [address] Assigned Surgical Provider 12/22/22 05/17/23 Mamadou Bowie MD [address] [place] [address] 457115 Assigned PCP 03/23/23 Herber Lopez MD [address] 474755 Assigned Surgical Provider 05/18/23 07/25/24 Makenzie Romano MD [address] [phone] location and measurement technician & Neurology - Child & Adolescent Psychiatry 11/08/23 Shani Stephenson MD 420 [place] [address] Resident Psychiatry 11/08/23 Yomi Campos, PhD [address] [place] [address] [phone] Assigned Behavioral Health Provider 01/27/24 08/25/24 Ita Newton Specialty Weatherization Field Technician 06/04/24 Kenya Jennings MD [address] [place] [address] 618335 Plastic Surgery 06/04/24 Herber Lopez MD [address] [place] [address] 612535 Assigned Dermatology Provider 07/26/24 Сергей Dumont [facility] Edge Stripper 08/13/24 Kenya Jennings MD [address] [place] [address] 675315 Assigned Surgical Provider 08/26/24 Jesse Arvizu MD 5775 [place], [place] 296406 Assigned Behavioral Health Provider 08/26/24 09/24/24 Luis Dudley MD 240 [place], [place] 525394 Assigned Behavioral Health Provider 09/25/24 10/25/24 Carmen Cole PA-C 6363 [facility] MAINE [address] [place], [place] 126315 Assigned Sleep Provider 09/25/24 Racheal Ng MD 2450 [facility] F282 [place], [place] [phone] Assigned Behavioral Health Provider 10/26/24 documented as of this encounter
--- OUTSIDE RECORDS SUMMARY | 2024-10-28 19:22 | XMS_ITS | Encounter Summary ---
Author Organization [place] Address [address] [place] [address] 97785 Care Team Providers Care Wrapping Machine Tender Name Role Phone Cindy Ruiz Unavailable [phone] Trevor Espino MD Unavailable [phone] Melanie Boykin MD Unavailable [phone] Jaci Whitlock APRN AD TERMINAL MAKEUP OPERATOR Unavailable + Doris Ricci MD Unavailable Yudy Pompa MD Unavailable [phone] Jessi Mcfadden MD Unavailable Mary Carmen Rodriguez MD Unavailable + Herber Lopez MD Unavailable [phone] Yomi Izquierdo DPEulalia Unavailable [phone] Torey Luna MD Primary Care Provider Torey Luna MD Unavailable Maurilio Carlson MD Unavailable Herber Lopez MD Unavailable [phone] Gloria Elizalde MD Unavailable [phone] Olena Smith [facility] Unavailable Unavailable Maurilio Carlson MD Unavailable Mamadou Bowie MD Primary Care Provider [phone] Mamadou Bowie MD Unavailable Herber Lopez MD Unavailable [phone] Makenzie Romano MD Unavailable [phone] Shani Stephenson MD Unavailable Andres Yomi Alek PhD Unavailable Ita Newton Unavailable Unavailable Kenya Jennings MD Unavailable [phone] Herber Lopez MD Unavailable [phone] Сергей Dumont [facility] Unavailable Unavailable Kenya Jennings MD Unavailable Jesse Arvizu MD Unavailable Luis Dudley MD Unavailable Carmen Cole PA-C Unavailable [phone] Racheal Ng MD Unavailable [phone] Encounter Details Date Type Department Care Team (Late st Contact Info) Description 11/23/2021 [facility] [address] [place] [address] Les Silverio, [facility] 500 [place] [address] Social History Tobacco Use Types Packs/Day Years Used Date Smoking Tobacco: Never Smokeless Tobacco: Never Alcohol Use Standard Drinks/Week Comments No 0 (1 standard drink = 0.6 oz pur e alcohol) PHQ-2 Answer Date Recorded PHQ-2 Score 2 10/24/2021 Comments No Sex and Gender Information Value Date Recorded Sex Assigned at Female 11/14/2020 10:33 PM CDT Legal Sex Female 3:58 AM MERCHANDISE FOR RESALE PURCHASING AGENT Gender Identity other 11/14/2020 10:33 PM CDT Sexual Orientation Lesbian 06/22/2019 4: 20 AM MERCHANDISE FOR RESALE PURCHASING AGENT COVID-19 Exposure Response Date Recorded In the [...] Visit [facility] 5775 [facility] [address] [place] [phone] 11/23/2024 1:30 PM CDT Office Visit [facility] [address] F[address] [phone] Melanie Boykin MD 2450 [place], [place] [phone] Gloria Elizalde MD 420 [place], [place] 505605 12/03/2024 3:00 PM CDT Office Visit [facility] 5775 [facility] [address] [place] [address] [phone] Jesse Arvizu MD [address] [place] [address] 12/15/2024 11:40 AM CDT Ancillary Procedure [facility] CT Clinic [address] 1st [place] [phone] Yudy Pompa MD [address] [place] [address] 357[address] 12/22/2024 11:40 AM CDT Oncology Visit [facility] [address] [place] [address] [phone] Yudy Pompa MD [address] [place] [address] 861715 02/22/2025 12:30 PM CDT Office Visit [facility] [address] [phone] Kenya Jennings MD [address] [place] [address] 03/12/2025 1:00 PM MERCHANDISE FOR RESALE PURCHASING AGENT Office Visit [facility] Internal Medicine [address] [phone] Mamadou Bowie MD [address] [place] [address] 212265 03/23/2025 8:00 AM MERCHANDISE FOR RESALE PURCHASING AGENT Hospital Encounter [facility] PeriOp Services [address] [place] [address] [phone] Kenya Jennings MD [address] [place] [address] 03/23/2025 8:00 AM MERCHANDISE FOR RESALE PURCHASING AGENT - 03/23/2025 12:05 PM MERCHANDISE FOR RESALE PURCHASING AGENT Surgery [facility] [address] [place] [address] [phone] Kenya Jennings MD [address] [place] [address] MASTECTOMY, BILATERAL, SIMPLE, NO nipple grafts. OnQ 03/30/2025 10:00 AM MERCHANDISE FOR RESALE PURCHASING AGENT Office Visit [facility] Plastic and Reconstructive Surgery [address] [phone] Lynn Parks APRN [address] [address] 04/16/2025 1:00 PM MERCHANDISE FOR RESALE PURCHASING AGENT Office Visit [facility] Internal Medicine [address] [phone] Mamadou Bowie MD [address] [place] [address] 216[address] 05/03/2025 4:00 PM MERCHANDISE FOR RESALE PURCHASING AGENT Office Visit [facility] [address] 4th [place] [phone] Kenya Jennings MD [address] [place] [address] 195 [place], [place] 564655 08/17/2025 12:15 PM CDT Office Visit [facility] Dermatology Clinic [address] [place] [address] Herber Lopez MD [address] [place] [address] 98 [place], [place] 682485 Scheduled Procedures Name Priority Associated Diagnoses Date/Ti me MASTECTOMY, BILATERAL, FOR GENDER AFFIRMATION Gender dysphoria in adult 03/23/2025 8:00 AM MERCHANDISE FOR RESALE PURCHASING AGENT documented as of this encounter Visit Diagnoses Not on filedocumented in this encounter Additional Health Concerns Assessment Noted Time PHQ-9 Depression Total Score: 5 10/24/19 22 9:38 PM CDT documented as of this encounter Care Teams Wrapping Machine Tender Relationship Specialty Start Date End Date Torey Luna MD [address] [place] [address]47 PCP - General Internal Medicine 04/19/21 03/17/23 Mamadou Bowie MD [address] [place] [address] 78006 PCP - General 03/18/23 Cindy Ruiz [place] [address] Resident Internal Medicine 12/07/14 Trevor Espino MD 9 [place] [address] Urology 05/16/16 Melanie Boykin MD [address] [place] [address] 00773 cotton sampler 12/10/16 11/07/23 Jaic Whitlock APRN AD TERMINAL MAKEUP OPERATOR [address] [place] [address] 337385 Nurse Practitioner - Women's Health 12/14/16 Doris Ricci MD [facility] [address] [address] Physician Internal Medicine 07/11/20 Yudy Pompa MD [address] [place] [address] 832335 Assigned Cancer Care Provider 08/21/20 Jessi Mcfadden MD [address] [place] [address] F282/2A [place], [place] 175804 Resident Psychiatry 11/08/20 12/23/22 Mary Carmen Rodriguez MD [address] [place] [address] 98 [place], [place] 443555 Dermatology 11/09/20 Herber Lopez MD 420 [facility] 98 [place], [place] 353115 Dermapathology 11/09/20 Yomi Izquierdo DPM [address] [facility] 300 [place] [address] Assigned Musculoskeletal Provider 12/04/20 06/08/22 Torey Luna MD [address] [place] [address]105 Assigned PCP 04/23/21 03/22/23 Maurilio Carlson MD [address] [place] [address] 724885 Assigned Surgical Provider 11/18/21 11/23/22 Herber Lopez MD [address] [place] [address] 447315 Assigned Surgical Provider 11/24/22 12/21/22 Gloria Elizalde MD [address] [place] [address] 898225 Resident 12/24/22 Olena Smith LSW Specialty Tool Honing Machine Set Up Operator Thermograph Operator - Clinical 12/25/22 01/03/23 [place] [address] [place] [address] Assigned Surgical Provider 12/22/22 05/17/23 Mamadou Bowie MD [address] [place] [address] 722945 Assigned PCP 03/23/23 Herber Lopez MD [address] [address] Assigned Surgical Provider 05/18/23 07/25/24 [place] [address] [place] [address] 875594 cotton sampler & Neurology - Child & Adolescent Psychiatry 11/08/23 Shani Stephenson MD 420 [place], [place] 840925 Resident Psychiatry 11/08/23 Yomi Campos, PhD [address] [place] [address] 55[address] Assigned Behavioral Health Provider 01/27/24 08/25/24 Ita Newton Specialty Tool Honing Machine Set Up Operator 06/04/24 Kenya Jennings MD [address] [place] [address] 027695 Plastic Surgery 06/04/24 Herber Lopez MD [address] [place] [address] 051525 Assigned Dermatology Provider 07/26/24 Сергей Dumont, [facility] Thermograph Operator 08/13/24 Kenya Jennings MD [address] [place] [address] 021975 Assigned Surgical Provider 08/26/24 Jesse Arvizu MD 5775 [place] [address] Assigned Behavioral Health Provider 08/26/24 09/24/24 Luis Dudley MD [address] [place] [address] 561514 Assigned Behavioral Health Provider 09/25/24 10/25/24 Carmen Cole PA-C [address] Ruiz MAINE [address] [place] [address] Assigned Sleep Provider 09/25/24 Racheal Ng MD [address] F[address] [place], [place] 129684 Assigned Behavioral Health Provider 10/26/24 documented as of this encounter
--- OUTSIDE RECORDS SUMMARY | 2024-10-28 19:22 | XMS_ITS | Encounter Summary ---
Author Organization [facility] Address [address] [place] [address] 72147 Care Team Providers Care Skating Rink Ice Maker Name Role Phone Eddie Cedillo MD Unavailable Cindy Ruiz Unavailable [phone] Marge Kelley MD Unavailable [phone] Kaitlin Branch MD Unavailable [phone] Kesha Boyd DO Primary Care Provider Trevor Espino MD Unavailable +[phone] Jessica Reddy MD Unavailable Melanie Boykin MD Unavailable Jaci Whitlock TRUCK DOCK MATERIAL MOVER CORPORATE REAL ESTATE SPECIALIST Unavailable + Jessica Reddy MD Unavailable Yudy Mathews MD Primary Care Provider [phone] Yudy Mathews MD Unavailable +[phone] Jaci Whitlock TRUCK DOCK MATERIAL MOVER CORPORATE REAL ESTATE SPECIALIST Unavailable + Juan M Smith MD, Madhuri Unavailable +[phone] Doris Ricci MD Unavailable +[phone] Yudy Mathews MD Unavailable +[phone] Antonette Castro PA-C Unavailable +[phone] Yudy Pompa MD Unavailable +[phone] Jessi Mcfadden MD Unavailable +[phone] Mary Carmen Rodriguez MD Unavailable + Herber Lopez MD Unavailable +[phone] Yomi Izquierdo DPM Unavailable +[phone] Torey Luna MD Primary Care Provider + [phone] Antonette Castro-C Unavailable +[phone] Torey Luna MD Unavailable +[phone] Herber Lopez MD Unavailable +[phone] Maurilio Carlson MD Unavailable Herber Lopez MD Unavailable +[phone] Gloria Elizalde MD Unavailable +[phone] Olena Smith [facility] Unavailable Unavailable Maurilio Carlson MD Unavailable Mamadou Bowie MD Primary Care Provider +[phone] AzebMamadou menchaca MD Unavailable Herber Lopez MD Unavailable +[phone] Makenzie Romano MD Unavailable +[phone] Shani Stephenson MD Unavailable +[phone] Yomi Campos PhD Unavailable +[phone] Ita Newton Unavailable Unavailable Kenya Jennings MD Unavailable + [phone] Herber Lopez MD Unavailable +[phone] Сергей Dumont [facility] Unavailable Unavailable Kenya Jennings MD Unavailable +[phone] Jsese Arvizu MD Unavailable Luis Dudley MD Unavailable + [phone] Carmen Cole-C Unavailable +[phone] Racheal Ng MD Unavailable +[phone] Encounter Details Date Type Department Care Team (Late st Contact Info) Description 08/30/2016 MyC Medical Advice [facility] [place] [id number] [facility] [address] [phone] Marge Kelley MD [address] [id number] Social History Tobacco Use Types Packs/Day Years Used Date Smoking Tobacco: Never Alcohol Use Standard Drinks/Week Comments No 0 (1 standard drink = 0.6 oz pur e alcohol) Comments No Sex and Gender Information Value Date Recorded Sex Assigned at Female 11/14/2020 10:33 PM CDT Legal Sex Female 3:58 AM SURGEON/PRESIDENT Gender Identity other 11/14/2020 10:33 PM CDT Sexual Orientation Lesbian 06/22/2019 4: 20 AM SURGEON/PRESIDENT documented as of this encounter Plan of Treatment Upcoming Encounters Date Type Department Care Team (Latest Contact Info) Description 10/29/2024 11:00 AM CDT [facility] [address] [place] [phone] 11/23/2024 1:30 PM CDT Office Visit [facility] [address] F236 [facility] [address] [phone] Melanie Boykin MD [address] [place] [address] [phone] Gloria Elizalde MD [address] [place] [address] 12/03/2024 3:00 PM CDT Office Visit [facility] [address] [place] [address] [place] [address] [phone] Jesse Arvizu MD [address] [place] [address] [phone] 12/15/2024 11:40 AM CDT Ancillary Procedure [facility] [address] [phone] Yudy Pompa MD [address] [place] [address] 889175 12/22/2024 11:40 AM CDT Oncology Visit [facility] [address] [place] [address] [phone] Yudy Pompa MD [address] [place] [address] 390615 02/22/2025 12:30 PM CDT Office Visit [facility] [address] [phone] Kenya Jennings MD [address] [place] [address] 288225 03/12/2025 1:00 PM SURGEON/PRESIDENT Office Visit [facility] Internal Medicine [address] [phone] Mamadou Bowie MD [address] [place] [address]78[address] 03/23/2025 8:00 AM SURGEON/PRESIDENT Hospital Encounter [facility] [address] [place] [address] [place] [phone] Kenya Jennings MD [address] [place] [address] 82272 03/23/2025 8:00 AM SURGEON/PRESIDENT - 03/23/2025 12:05 PM SURGEON/PRESIDENT Surgery [facility] [address] [place] [phone] Kenya Jennings MD [address] [place] [address] [phone] MASTECTOMY, BILATERAL, SIMPLE, NO nipple grafts. OnQ 03/30/2025 10:00 AM SURGEON/PRESIDENT Office Visit [facility] [address] [phone] Lynn Parks, TISH [address] [address] 04/16/2025 1:00 PM SURGEON/PRESIDENT Office Visit [facility] Internal Medicine [address] [phone] Mamadou Bowie MD [address] [place] [address] 207415 05/03/2025 4:00 PM SURGEON/PRESIDENT Office Visit [facility] [address] [phone] Kenya Jennings MD [address] [place] [address] 08/17/2025 12:15 PM CDT Office Visit [facility] [address] [phone] Herber Lopez MD [address] [place] [address] [phone] Scheduled Procedures Name Priority Associated Diagnoses Date/Ti me MASTECTOMY, BILATERAL, FOR GENDER AFFIRMATION Gender dysphoria in adult 03/23/2025 8:00 AM SURGEON/PRESIDENT documented as of this encounter Visit Diagnoses Not on filedocumented in this encounter Additional Health Concerns Assessment Noted Time PHQ-9 Depression Total Score: 6 08/29/19 17 7:07 AM CDT documented as of this encounter Care Teams Skating Rink Ice Maker Relationship Specialty Start Date End Date Kesha Boyd DO [address] [place] [address]9586 PCP - General Family Practice 04/12/16 10/16/18 Yudy Mathews MD [address] [place] [address] 395 [place] [address] PCP - General Internal Medicine 10/17/18 04/18/21 Torey Luna MD [address] [place] [address] 69477 PCP - General Internal Medicine 04/19/21 03/17/23 Mamadou Bowie MD [address] [place] [address] 50984 PCP - General 03/18/23 Eddie Cedillo MD [facility] 3850 [place], [place] 723546 Dermatology 10/21/14 11/18/17 Cindy Ruiz [place] [address] [address] [place], [place] 512980 Resident Internal Medicine 12/07/14 Marge Kelley MD [facility] [address] [place] [address] Resident Psychiatry 12/30/15 02/05/17 Kaitlin Branch MD [address] [place], [place] 4490682 [place] [address] database design analyst 01/02/16 10/17/20 Trevor Espino MD [address] [place] [address] 15045 Urology 05/16/16 Jessica Reddy MD [address] [address] Resident Student in organized health care education/training program 12/10/16 10/16/18 Melanie Boykin MD [address] [place] [address] 53699 database design analyst 12/10/16 11/07/23 Jaci Whitlock APRN CORPORATE REAL ESTATE SPECIALIST [address] [place] [address] 359595 Nurse Practitioner - Women's Health 12/14/16 Jessica Reddy MD [address] [address] Resident Student in organized health care education/training program 02/06/17 06/26/18 Yudy Mathews MD [facility] [place], [place] 631397 Assigned PCP 09/24/19 07/24/20 Jaci Whitlock APRN CORPORATE REAL ESTATE SPECIALIST [address] [place] [address] 324355 Assigned OBGYN Provider 02/26/20 Shanelle Mcgowan MD [address] [place] [address] 39091 Assigned Surgical Provider 02/26/20 07/29/21 Doris Ricci MD [address] [address] Physician Internal Medicine 07/11/20 Yud[place] [address] Assigned PCP 07/25/20 04/22/21 Antonette Castro PA-C [address] [place] [address] 92396 Assigned Heart and Vascular Provider 07/20/20 04/08/21 Yudy Pompa MD [address] [place] [address] 490785 Assigned Cancer Care Provider 08/21/20 Jessi Mcfadden MD [address] [place] [address] F282/2A [place], [place] 740114 Resident Psychiatry 11/08/20 12/23/22 Mary Carmen Rodriguez MD [address] [place] [address] 166265 Dermatology 11/09/20 Herber Lopez MD [address] [place] [address] 06933 Dermapathology 11/09/20 Yomi Izquierdo DPM [address] [facility] [address] [place] [address] Assigned Musculoskeletal Provider 12/04/20 06/08/22 Antonette Castro PA-C [address] [place] [address] 96648 Assigned Gastroenterology Provider 04/09/21 07/08/21 Torey Luna MD [address] [place] [address] 14536 Assigned PCP 04/23/21 03/22/23 Herber Lopez MD [address] [place] [address] 06419 Assigned Surgical Provider 07/30/21 11/17/21 Maurilio Carlson MD [address] [place] [address] 45423 Assigned Surgical Provider 11/18/21 11/23/22 Herber Lopez MD [address] [place] [address] 31517 Assigned Surgical Provider 11/24/22 12/21/22 Gloria Elizalde MD [address] [place] [address] 23486 Resident 12/24/22 Olena Smith LSW Specialty Linux Solaris Administrator Family Independence Case Manager - Clinical 12/25/22 01/03/23 [place] [address] [place] [address] Assigned Surgical Provider 12/22/22 05/17/23 Mamadou Bowie MD 909 [place] [address] Assigned PCP 03/23/23 Herber Lopez MD 420 [facility] 98 [place], [place] 406495 Assigned Surgical Provider 05/18/23 07/25/24 Makenzie Romano MD [address] 103444 database design analyst & Neurology - Child & Adolescent Psychiatry 11/08/23 Shani Stephenson MD 420 [place] [address] Resident Psychiatry 11/08/23 Yomi Campos, PhD [address] [place] [address] 363224 Assigned Behavioral Health Provider 01/27/24 08/25/24 Ita Newton Specialty Linux Solaris Administrator 06/04/24 Kenya Jennings MD 420 [facility] 195 [place], [place] 978965 Plastic Surgery 06/04/24 Herber Lopez MD 420 [facility] 98 [place], [place] 839215 Assigned Dermatology Provider 07/26/24 Сергей Dumont [facility] Family Independence Case Manager 08/13/24 Kenya Jennings MD [address] [address] [facility] 195 [place], [place] 994995 Assigned Surgical Provider 08/26/24 Jesse Arvizu MD 5775 [place], [place] 742976 Assigned Behavioral Health Provider 08/26/24 09/24/24 Luis Dudley MD 240 [place], [place] 242304 Assigned Behavioral Health Provider 09/25/24 10/25/24 Carmen Cole PA-C 6363 [facility] [address] 103 [place], [place] 144695 Assigned Sleep Provider 09/25/24 Racheal Ng MD 2450 [facility] F282 [place] [address] Assigned Behavioral Health Provider 10/26/24 documented as of this encounter
--- OUTSIDE RECORDS SUMMARY | 2024-10-28 19:22 | XMS_ITS | Encounter Summary ---
Author Organization [facility] Address [address] [place] [address] 74187 Care Team Providers Care Shelter Case Manager Name Role Phone Cindy Ruiz Unavailable Trevor Espino MD Unavailable [phone] Melanie Boykin MD Unavailable [phone] Jaci Whitlock APRN SONG AND DANCE PERFORMER Unavailable + Doris Ricci MD Unavailable Yudy Pompa MD Unavailable [phone] Jessi Mcfadden MD Unavailable Mary Carmen Rodriguez MD Unavailable + Herber Lopez MD Unavailable [phone] Yomi Izquierdo DPEulalia Unavailable Torey Luna MD Primary Care Provider [phone] Torey Luna MD Unavailable Herber Lopez MD Unavailable Maurilio Carlson MD Unavailable Herber Lopez MD Unavailable Gloria Elizalde MD Unavailable [phone] Olena Smith Unavailable Unavailable Maurilio Carlson MD Unavailable Mamadou Bowie MD Primary Care Provider [phone] Mamadou Bowie MD Unavailable Herber Lopez MD Unavailable +[phone] Makenzie Romano MD Unavailable [phone] Shani Stephenson MD Unavailable [phone] Yomi Campos PhD Unavailable [phone] Ita Newton Unavailable Unavailable Kenya Jennings MD Unavailable +[phone] Herber Lopez MD Unavailable +[phone] Сергей Dumont [facility] Unavailable Unavailable Kenya Jennings MD Unavailable +[phone] Jesse Arvizu MD Unavailable Luis Dudley MD Unavailable [phone] Carmen Cole PA-C Unavailable +[phone] Racheal Ng MD Unavailable + [phone] Encounter Details Date Type Department Care Team (Late st Contact Info) Description 09/07/2021 [facility] Medical Advice [facility] Internal Medicine [address] [phone] Torey Luna MD [address] [place] [place] [address] Social History Tobacco Use Types Packs/Day [...] PM CDT Legal Sex Female 3:58 AM GOLF CART ATTENDANT Gender Identity other 11/14/2020 10:33 PM CDT Sexual Orientation Lesbian 06/22/2019 4: 20 AM GOLF CART ATTENDANT COVID-19 Exposure Response Date Recorded In the last 10 days, have yoni u been in contact with someone who was confirmed or suspected to have Coronavirus/COVID-19? No / Unsure 08/14/2021 11:50 AM CDT documented as of this encounter Miscellaneous Notes * Telephone Encounter - Torey Luna MD - 09/13/2021 11:36 AM CDT Peter Luna * Telephone Encounter - Darrell Brandon CMA - 09/08/2021 7:49 AM CDT Called Echocardiogram number and had message sent to result patient Echocardiogram. Darrell Brandon CMA (AAMA) at 8:19 AM on 09/08/2021 documented in this encounter Plan of Treatment Upcoming Encounters Date Type Department Care Team (Latest Contact Info) Description 10/29/2024 11:00 AM CDT Virtual Visit [facility] [address] [place] [address] [phone] 11/23/2024 1:30 PM CDT Office Visit [facility] [place] [phone] [address] [place] [address] [phone] Melanie Boykin MD [address] [place] [address] 413474 Gloria Elizalde MD [address] [place] [address] [phone] 12/03/2024 3:00 PM CDT Office Visit [facility] Psychiatry [facility] [address] [place] [address] [phone] Jesse Arvizu MD [address] [place] [address] 12/15/2024 11:40 AM CDT Ancillary Procedure [facility] Imaging [facility] CT Clinic [address] 1st [place] [phone] Yudy Pompa MD [address] [place] [address] 204705 12/22/2024 11:40 AM CDT Oncology Visit [facility] [address] [place] [address] [phone] Yudy Pompa MD [address] [place] [address] 02/22/2025 12:30 PM CDT Office Visit [facility] [address] [phone] Kenya Jennings MD [address] [place] [address] 6[address] 03/12/2025 1:00 PM GOLF CART ATTENDANT Office Visit [facility] Internal Medicine [address] [phone] Mamadou Bowie MD [address] [place] [address] 9[address] 03/23/2025 8:00 AM GOLF CART ATTENDANT Hospital Encounter [facility] PeriOp Services [address] [facility] [place] [phone] Kenya Jennings MD [address] [place] [address] 03/23/2025 8:00 AM GOLF CART ATTENDANT - 03/23/2025 12:05 PM GOLF CART ATTENDANT Surgery [facility] [address] [place] [phone] Kenya Jennings MD [address] [place] [address]65 MASTECTOMY, BILATERAL, SIMPLE, NO nipple grafts. OnQ 03/30/2025 10:00 AM GOLF CART ATTENDANT Office Visit [facility] [address] [phone] Lynn Parks APRN [address] 587705 04/16/2025 1:00 PM GOLF CART ATTENDANT Office Visit [facility] Medicine [address] [phone] Mamadou Bowie MD [address] [place] [address] 87[address] 05/03/2025 4:00 PM GOLF CART ATTENDANT Office Visit [facility] [address] [phone] Kenya Jennings MD [address] [place] [address] 8[address] 08/17/2025 12:15 PM CDT Office Visit [facility] [address] [place] [phone] Herber Lopez MD [address] [place] [address] 991975 Scheduled Procedures Name Priority Associated Diagnoses Date/Ti me MASTECTOMY, BILATERAL, FOR GENDER AFFIRMATION Gender dysphoria in adult 03/23/2025 8:00 AM GOLF CART ATTENDANT documented as of this encounter Visit Diagnoses Not on filedocumented in this encounter Additional Health Concerns Assessment Noted Time PHQ-9 Depression Total Score: 5 08/31/19 22 7:04 AM CDT documented as of this encounter Care Teams Shelter Case Manager Relationship Specialty Start Date End Date Torey Luna MD [address] [place] [place] [address]34 PCP - General Internal Medicine 04/19/21 03/17/23 Mamadou Bowie MD [address] [place] [address] 08181 PCP - General 03/18/23 Cindy Ruiz [facility] [place] [address] Resident Internal Medicine 12/07/14 Trevor Espino MD [address] [place] [address] Urology 05/16/16 Melanie Boykin MD [address] [place] [address] 00334 loan officer assistant 12/10/16 11/07/23 Jaci Whitlock APRN SONG AND DANCE PERFORMER [address] [place] [address] 39366 Nurse Practitioner - Women's Health 12/14/16 Doris Ricci MD [facility] & [address] [address] Physician Internal Medicine 07/11/20 Yudy Pompa MD 909 [place] [address] Assigned Cancer Care Provider 08/21/20 Jessi Mcfadden MD 2450 [facility] F282/2A [place] [address] Resident Psychiatry 11/08/20 12/23/22 Mary Carmen Rodriguez MD [address] [place] [address] 55054 Dermatology 11/09/20 Herber Lopez MD [address] [place] [address] 75[address] Dermapathology 11/09/20 Yomi Izquierdo DPM [address] [facility] [address] [place] [address] Assigned Musculoskeletal Provider 12/04/20 06/08/22 Torey Luna MD [address] [place] [place] [address] 7[address] Assigned PCP 04/23/21 03/22/23 Herber Lopez MD [address] [place] [address] 53289 Assigned Surgical Provider 07/30/21 11/17/21 Maurilio Carlson MD [address] [place] [address] 19453 Assigned Surgical Provider 11/18/21 11/23/22 Herber Lopez MD [address] [address] Assigned Surgical Provider 11/24/22 12/21/22 Gloria Elizalde MD 420 [place] [address] Resident 12/24/22 Olena Smith AREA SAFETY MANAGER Specialty Water Leak Repairer Take Away Man - Clinical 12/25/22 01/03/23 [place] [address] [place] [address] 66179 Assigned Surgical Provider 12/22/22 05/17/23 Mamadou Bowie MD [address] [place] [address] 40420 Assigned PCP 03/23/23 Herber Lopez MD [address] [place] [address] 49086 Assigned Surgical Provider 05/18/23 07/25/24 [place] [address] [place] [address] 19835 loan officer assistant & Neurology - Child & Adolescent Psychiatry 11/08/23 Shani Stephenson MD 420 [place], [place] 873735 Resident Psychiatry 11/08/23 Yomi Campos, PhD [facility] [address] [address] Assigned Behavioral Health Provider 01/27/24 08/25/24 Ita Newton Specialty Water Leak Repairer 06/04/24 Kenya Jennings MD 420 [facility] 195 [place] [address] Plastic Surgery 06/04/24 Herber Lopez MD 420 [facility] 98 [place] [address] Assigned Dermatology Provider 07/26/24 Сергей Dumont [facility] Take Away Man 08/13/24 Kenya Jennings MD 420 [facility] 195 [place], [place] 219895 Assigned Surgical Provider 08/26/24 Jesse Arvizu MD 5775 [place], [place] [phone] Assigned Behavioral Health Provider 08/26/24 09/24/24 Luis Dudley MD 240 [place], [place] 12879454 Assigned Behavioral Health Provider 09/25/24 10/25/24 Carmen Cole PA-C 6363 [facility] [address] 103 [place], [place] 559235 Assigned Sleep Provider 09/25/24 Racheal Ng MD 2450 [facility] F282 [place] [address] Assigned Behavioral Health Provider 10/26/24 documented as of this encounter
--- OUTSIDE RECORDS SUMMARY | 2024-10-28 19:22 | XMS_ITS | Encounter Summary ---
Author Organization [facility] Address [address] [place] [address] 31598 Care Team Providers Care Gym Manager Name Role Phone Eddie Cedillo MD Unavailable Cindy Ruiz Unavailable [phone] Marge Kelley MD Unavailable +[phone] Kaitlin Branch MD Unavailable +[phone] Kesha Boyd DO Primary Care Provider Trevor Espino MD Unavailable +[phone] Jessica Reddy MD Unavailable Melanie Boykin MD Unavailable +[phone] Jaci Whitlock CORE SHAPER MANAGER AUTO Unavailable + Jessica Reddy MD Unavailable Yudy Mathews MD Primary Care Provider [phone] Yudy Mathews MD Unavailable +[phone] Jaci Whitlock CORE SHAPER MANAGER AUTO Unavailable + Juan M Smith MD, Madhuri Unavailable +[phone] Doris Ricci MD Unavailable Yudy Mathews MD Unavailable +[phone] Antonette Castro PA-C Unavailable +[phone] Yudy Pompa MD Unavailable +[phone] Jessi Mcfadden MD Unavailable +[phone] Mary Carmen Rodriguez MD Unavailable + Herber Lopez MD Unavailable +[phone] Yomi Izquierdo DPM Unavailable +[phone] Torey Luna MD Primary Care Provider + [phone] Antonette Castro-C Unavailable +[phone] Torey Luna MD Unavailable +[phone] Herber Lopez MD Unavailable +[phone] Maurilio Carlson MD Unavailable Herber Lopez MD Unavailable +[phone] Gloria Elizalde MD Unavailable +[phone] Olena Smith [facility] Unavailable Unavailable Maurilio Carlson MD Unavailable Mamadou Bowie MD Primary Care Provider +[phone] AzebMamadou menchaca MD Unavailable Herber Lopez MD Unavailable +[phone] Makenzie Romano MD Unavailable +[phone] Shani Stephenson MD Unavailable +[phone] Yomi Campos PhD Unavailable +[phone] Ita Newton Unavailable Unavailable Kenya Jennings MD Unavailable + [phone] Herber Lopez MD Unavailable +[phone] Сергей Dumont [facility] Unavailable Unavailable Kenya Jennings MD Unavailable +[phone] Jesse Arvizu MD Unavailable Luis Dudley MD Unavailable + [phone] Carmen Cole-C Unavailable +[phone] Racheal Ng MD Unavailable +[phone] Encounter Details Date Type Department Care Team (Late st Contact Info) Description 05/18/2016 MyC Medical Advice [facility] Urology and Inst for Prostate and Urologic Cancers [address] [facility] 4th [place] [phone] Trevor Espino MD [address] [place] [address] 098005 Social History Tobacco Use Types Packs/Day Years Used Date Smoking Tobacco: Never Alcohol Use Standard Drinks/Week Comments No 0 (1 standard drink = 0.6 oz pur e alcohol) Comments No Sex and Gender Information Value Date Recorded Sex Assigned at Female 11/14/2020 10:33 PM CDT Legal Sex Female 3:58 AM ELECTION ASSISTANT Gender Identity other 11/14/2020 10:33 PM CDT Sexual Orientation Lesbian 06/22/2019 4: 20 AM ELECTION ASSISTANT documented as of this encounter Plan of Treatment Upcoming Encounters Date Type Department Care Team (Latest Contact Info) Description 10/29/2024 11:00 AM CDT [facility] [address] [place] [phone] 11/23/2024 1:30 PM CDT Office Visit [facility] Addiction [address] F[address] [facility] [address] [phone] Melanie Boykin MD [address] [place] [address] [phone] Gloria Elizalde MD 420 [place], [place] 635655 12/03/2024 3:00 PM CDT Office Visit [facility] 57[address] [facility] [address] [place] [address] [phone] Jesse Arvizu MD [address] [place] [address] [phone] 12/15/2024 11:40 AM CDT Ancillary Procedure [facility] CT Clinic [address] 1st [place] [phone] Yudy Pompa MD [address] [place] [address] 6[address] 12/22/2024 11:40 AM CDT Oncology Visit [facility] [address] [place] [address] [phone] Yudy Pompa MD [address] [place] [address] 942545 02/22/2025 12:30 PM CDT Office Visit [facility] Plastic [facility] Reconstructive Surgery [facility] [address] 4th [place] [phone] Kenya Jennings MD [address] [place] [address] 03/12/2025 1:00 PM ELECTION ASSISTANT Office Visit [facility] [address] 4th [place] [phone] Mamadou Bowie MD [address] [place] [address] 12[address] 03/23/2025 8:00 AM ELECTION ASSISTANT Hospital Encounter [facility] [address] [place] [address] [place] [phone] Kenya Jennings MD [address] [place] [address] 841755 03/23/2025 8:00 AM ELECTION ASSISTANT - 03/23/2025 12:05 PM ELECTION ASSISTANT Surgery [facility] [address] [place], [place] [address] [place] [phone] Kenya Jennings MD [address] [place] [address] [phone] MASTECTOMY, BILATERAL, SIMPLE, NO nipple grafts. OnQ 03/30/2025 10:00 AM ELECTION ASSISTANT Office Visit [facility] [address] [phone] Lynn Parks APRN [address] [address] 04/16/2025 1:00 PM ELECTION ASSISTANT Office Visit [facility] [address] [phone] Mamadou Bowie MD [address] [place] [address] 05/03/2025 4:00 PM ELECTION ASSISTANT Office Visit [facility] [address] [phone] Kenya Jennings MD [address] [place] [address] 890[address] 08/17/2025 12:15 PM CDT Office Visit [facility] D[facility]atology Clinic [address] [phone] Herber Lopez MD [address] [place] [address] [phone] Scheduled Procedures Name Priority Associated Diagnoses Date/Ti me MASTECTOMY, BILATERAL, FOR GENDER AFFIRMATION Gender dysphoria in adult 03/23/2025 8:00 AM ELECTION ASSISTANT documented as of this encounter Visit Diagnoses Not on filedocumented in this encounter Additional Health Concerns Assessment Noted Time PHQ-9 Depression Total Score: 9 09/02/19 17 7:07 AM CDT documented as of this encounter Care Teams Gym Manager Relationship Specialty [place] [address] [place] [address] 35159 PCP - General Family Practice 04/12/16 10/16/18 Yudy Mathews MD [address] [place] [address] 395 [place], [place] 545155 PCP - General Internal Medicine 10/17/18 04/18/21 Torey Luna MD [address] [place] [address] 365265 PCP - General Internal Medicine 04/19/21 03/17/23 Mamadou Bowie MD [address] [place] [address] [phone] PCP - General 03/18/23 Eddie Cedillo MD [facility] 3850 [place] [address] Dermatology 10/21/14 11/18/17 [facility] Ruiz [facility] [address] [place], [place] [address] Resident Internal Medicine 12/07/14 Marge Kelley MD [address] [address] Resident Psychiatry 12/30/15 02/05/17 Kaitlin Branch MD [address] [place] [address] 37425 instructor extension work 01/02/16 10/17/20 Trevor Espino MD 909 [place] [address] Urology 05/16/16 Jessica Reddy MD [facility] 3800 [place] [address] Resident Student in organized health care education/training program 12/10/16 10/16/18 Melanie Boykin MD [address] [place] [address] 05402 instructor extension work 12/10/16 11/07/23 Jaci Whitlock APRN MANAGER AUTO [address] [place] [address] 975185 Nurse Practitioner - Women's Health 12/14/16 Jessica Reddy MD [address] [address] Resident Student in organized health care education/training program 02/06/17 06/26/18 Yudy Mathews MD [facility] [place] [address] Assigned PCP 09/24/19 07/24/20 Jaci Whitlock APRN MANAGER AUTO [address] 095205 Assigned OBGYN Provider 02/26/20 Shanelle Mcgowan MD [address] [place] [address] 42908 Assigned Surgical Provider 02/26/20 07/29/21 Doris Ricci MD [facility] & [address] [address] Physician Internal Medicine 07/11/20 Yudy Mathews MD [facility] [place] [address] Assigned PCP 07/25/20 04/22/21 Antonette Castro PA-C [address] [place] [address] 000655 Assigned Heart and Vascular Provider 07/20/20 04/08/21 Yudy Pompa MD [address] [place] [address] 160815 Assigned Cancer Care Provider 08/21/20 Jessi Mcfadden MD [address] [place] [address] F282/2A [place], [place] 879894 Resident Psychiatry 11/08/20 12/23/22 Mary Carmen Rodriguez MD [address] [place] [address] 580705 Dermatology 11/09/20 Herber Lopez MD [address] [place] [address] 586595 Dermapathology 11/09/20 Yomi Izquierdo DPM [address]18 [facility] [address] [place] [address] Assigned Musculoskeletal Provider 12/04/20 06/08/22 Antonette Castro PA-C 9 [place] [address] Assigned Gastroenterology Provider 04/09/21 07/08/21 Torey Luna MD [address] [address] Assigned PCP 04/23/21 03/22/23 Herber Lopez MD 420 [facility] 98 [place] [address] Assigned Surgical Provider 07/30/21 11/17/21 Maurilio Carlson MD 9 [place] [address] Assigned Surgical Provider 11/18/21 11/23/22 Herber Lopez MD 420 [facility] 98 [place] [address] Assigned Surgical Provider 11/24/22 12/21/22 Gloria Elizalde MD 420 [place] [address] Resident 12/24/22 Olena Smith LSW Specialty Recreation Attendant Supervisor Parking Control Officer - Clinical 12/25/22 01/03/23 [place] [address] [place] [address] Assigned Surgical Provider 12/22/22 05/17/23 Mamadou Bowie MD 909 [place] [address] Assigned PCP 03/23/23 Herber Lopez MD 420 [facility] 98 [place] [address] Assigned Surgical Provider 05/18/23 07/25/24 [place] [address] [place] [address] 12478 instructor extension work & Neurology - Child & Adolescent Psychiatry 11/08/23 Shain Stephenson MD 420 [place], [place] 848745 Resident Psychiatry 11/08/23 Yomi Campos, PhD [address] [place] [address] 29263 Assigned Behavioral Health Provider 01/27/24 08/25/24 Ita Newton Specialty Recreation Attendant Supervisor 06/04/24 Kenya Jennings MD [address] [place] [address] 401695 Plastic Surgery 06/04/24 Herber Lopez MD [address] [place] [address] 98 [place] [address] Assigned Dermatology Provider 07/26/24 Сергей Dumont, [facility] Parking Control Officer 08/13/24 Kenya Jennings MD [address] [facility] [address] [place], [place] 127875 Assigned Surgical Provider 08/26/24 Jesse Arvizu MD 5775 [place], [place] 916926 Assigned Behavioral Health Provider 08/26/24 09/24/24 Luis Dudley MD 240 [facility] [place] [place] 686[address] Assigned Behavioral Health Provider 09/25/24 10/25/24 Carmen Cole PA-C [address] [facility] 103 [place], [place] 898025 Assigned Sleep Provider 09/25/24 Racheal Ng MD 2450 [facility] F282 [place] [address] Assigned Behavioral Health Provider 10/26/24 documented as of this encounter
--- OUTSIDE RECORDS SUMMARY | 2024-10-28 19:22 | XMS_ITS | Encounter Summary ---
Author Organization [facility] Address [address] [place] [address] 40014 Care Team Providers Care Document Photographer Name Role Phone RichieerlineusebiajudsonCindy Unavailable [phone] Kaitlin Branch MD Unavailable [phone] Trevor Espino MD Unavailable +[phone] Melanie Boykin MD Unavailable +[phone] Jaci Whitlock APRN SURGERY SCHEDULER Unavailable + Yudy Mathews MD Primary Care Provider [phone] Yudy Mathews MD Unavailable +[phone] Juan M Smith MD, Shanelle Unavailable +[phone] Doris Ricci MD Unavailable +[phone] Yudy Mathews MD Unavailable +[phone] Antonette Castro PA-C Unavailable +[phone] Yudy Pompa MD Unavailable +[phone] Jessi Mcfadden MD Unavailable +[phone] Mary Carmen Rodriguez MD Unavailable + Herber Lopez MD Unavailable +[phone] Yomi Izquierdo DPEulalia Unavailable +[phone] Torey Luna MD Primary Care Provider + [phone] Antonette Castro PA-C Unavailable +[phone] Torey Luna MD Unavailable Herber Lopez MD Unavailable +[phone] Maurilio Carlson MD Unavailable Herber Lopez MD Unavailable +[phone] Gloria Elizalde MD Unavailable +[phone] Olena Smith [facility] Unavailable Unavailable Maurilio Carlson MD Unavailable Mamadou Bowie MD Primary Care Provider +[phone] Mamadou Bowie MD Unavailable Herber Lopez MD Unavailable +[phone] Makenzie Romano MD Unavailable Shani Stephenson MD Unavailable +[phone] Yomi Campos PhD Unavailable +[phone] Ita Newton Unavailable Unavailable Kenya Jennings MD Unavailable +[phone] Herber Lopez MD Unavailable +[phone] Сергей Dumont [facility] Unavailable Unavailable Kenya Jennings MD Unavailable + [phone] Jesse Arvizu MD Unavailable Luis Dudley MD Unavailable +[phone] Carmen Cole-C Unavailable +[phone] Racheal Ng MD Unavailable [phone] Encounter Details Date Type Department Care Team (Late st Contact Info) Description 07/13/2020 [facility] 909 [place] [address] Jaci Whitlock APRN [facility] 420 [facility] 395 [place] [address] Social History Tobacco Use Types Packs/Day Years Used Date Smoking Tobacco: Never Smokeless Tobacco: Never Alcohol Use Standard Drinks/Week Comments No 0 (1 standard drink = 0.6 oz pur e alcohol) PHQ-2 Answer Date Recorded PHQ-2 Score 2 06/15/2020 Comments No Sex and Gender Information Value Date Recorded Sex Assigned at Female 11/14/2020 10:33 PM CDT Legal Sex Female 3:58 AM AUTOMATION AND CONTROLS MANAGER Gender Identity other 11/14/2020 10:33 PM CDT Sexual Orientation Lesbian 06/22/2019 4: 20 AM AUTOMATION AND CONTROLS MANAGER COVID-19 Exposure Response Date Recorded In the last month, have you been in contact with someone who was confirmed or suspected to have Coronavirus / COVID-19? No / Unsure 06/29/2020 6:04 AM AUTOMATION AND CONTROLS MANAGER documented as of this encounter Plan of Treatment Upcoming Encounters Date Type Department Care Team (Latest Contact Info) Description 10/29/2024 11:00 AM CDT Virtual [facility] [address] [place] [address] [place] [address] [phone] 11/23/2024 1:30 PM CDT Office Visit [facility] Mental Health & Addiction [place] [phone] [phone] Melanie Boykin MD [address] [place] [address] 387874 Gloria Elizalde MD [address] [place] [address] 528035 12/03/2024 3:00 PM CDT [facility] [address] [facility] [address] [place] [phone] Jesse Arvizu MD [address] [place] [address] 12/15/2024 11:40 AM CDT Ancillary Procedure [facility] Imaging Center CT [facility] [place] [address] [place] [address] 1st [place] [phone] Yudy Pompa MD [address] [place] [address] 56[address] 12/22/2024 11:40 AM CDT Oncology Visit [facility] [address] [phone] Yudy Pompa MD [address] [place] [address] 8[address] 02/22/2025 12:30 PM CDT Office Visit [facility] Plastic and Reconstructive Surgery Clinic [address] [phone] Kenya Jennings MD [address] [place] [address] 763945 03/12/2025 1:00 PM AUTOMATION AND CONTROLS MANAGER Office Visit [facility] Internal Medicine [address] [phone] Mamadou Bowie MD [address] [place] [address] 9[address] 03/23/2025 8:00 AM AUTOMATION AND CONTROLS MANAGER Hospital Encounter [facility] [address] [place] [address] [phone] Kenya Jennings MD [address] [place] [address] 8[address] 03/23/2025 8:00 AM AUTOMATION AND CONTROLS MANAGER - 03/23/2025 12:05 PM AUTOMATION AND CONTROLS MANAGER Surgery [facility] [address] [place] [address] [phone] Kenya Jennings MD [address] [place] [address] 73382 MASTECTOMY, BILATERAL, SIMPLE, NO nipple grafts. OnQ 03/30/2025 10:00 AM AUTOMATION AND CONTROLS MANAGER Office Visit [facility] Plastic and Reconstructive Surgery Clinic [address] [phone] Lynn Parks APRN [address] 620325 04/16/2025 1:00 PM AUTOMATION AND CONTROLS MANAGER Office Visit [facility] Internal Medicine [address] [phone] Mamadou Bowie MD [address] [place] [address] 012405 05/03/2025 4:00 PM AUTOMATION AND CONTROLS MANAGER Office Visit [facility] Plastic and Reconstructive Surgery Clinic [address] [phone] Kenya Jennings MD [address] [place] [address] 195 [place], [place] 504625 08/17/2025 12:15 PM CDT Office Visit [facility] Dermatology Clinic [address] 3rd [place] [phone] Herber Lopez MD [address] [place] [address] 98 [place], [place] 453375 Scheduled Procedures Name Priority Associated Diagnoses Date/Ti me MASTECTOMY, BILATERAL, FOR GENDER AFFIRMATION Gender dysphoria in adult 03/23/2025 8:00 AM AUTOMATION AND CONTROLS MANAGER documented as of this encounter Visit Diagnoses Not on filedocumented in this encounter Additional Health Concerns Assessment Noted Time PHQ-9 Depression Total Score: 5 06/16/19 21 7:05 AM AUTOMATION AND CONTROLS MANAGER documented as of this encounter Care Teams Document Photographer Relationship Specialty Start Date End Date Yudy Mathews MD [address] [place] [address] 395 [place] [address] PCP - General Internal Medicine 10/17/18 04/18/21 Torey Luna MD [address] [place] [address] 16462 PCP - General Internal Medicine 04/19/21 03/17/23 Mamadou Bowie MD [address] [place] [address] 0[address]48 PCP - General 03/18/23 Cindy Ruiz [facility] [place] [address] Resident Internal Medicine 12/07/14 Kaitlin Branch MD [address] [place] [address] 31120 wastewater supervisor 01/02/16 10/17/20 Trevor Espino MD [address] [place] [address] 6[address] Urology 05/16/16 Melanie Boykin MD [address] [place] [address] 58966 wastewater supervisor 12/10/16 11/07/23 Jaci Whitlock APRN SURGERY SCHEDULER [address] [place] [address] 395 [place], [place] 179715 Nurse Practitioner - Women's Health 12/14/16 [place] [address] Assigned PCP 09/24/19 07/24/20 Shanelle Mcgowan MD [address] [place] [address] Assigned Surgical Provider 02/26/20 07/29/21 Doris Ricci MD [facility] & [address] [address] Physician Internal Medicine 07/11/20 [place] [address] Assigned PCP 07/25/20 04/22/21 Antonette Castro PA-C [address] [place] [address] 75109 Assigned Heart and Vascular Provider 07/20/20 04/08/21 Yudy Pompa MD [address] [place] [address] 01598 Assigned Cancer Care Provider 08/21/20 Jessi Mcfadden MD [address] [place] [address] F282/2A [place] [address] Resident Psychiatry 11/08/20 12/23/22 Mary Carmen Rodriguez MD [address] [place] [address] 33246 Dermatology 11/09/20 Herber Lopez MD [address] [place] [address] 7[address]99 Dermapathology 11/09/20 Yomi Izquierdo DPM [address] [facility] [address] [place] [address] Assigned Musculoskeletal Provider 12/04/20 06/08/22 Antonette Castro PA-C [address] [place] [address]07 Assigned Gastroenterology Provider 04/09/21 07/08/21 Torey Luna MD [address] [place] [address] 19717 Assigned PCP 04/23/21 03/22/23 Herber Lopez MD [address] [place] [address] 41530 Assigned Surgical Provider 07/30/21 11/17/21 Maurilio Carlson MD [address] [place] [address] 86[address] Assigned Surgical Provider 11/18/21 11/23/22 Herber Lopez MD [address] [place] [address] 27349 Assigned Surgical Provider 11/24/22 12/21/22 Gloria Elizalde MD [address] [place] [address] 81985 Resident 12/24/22 Olena Smith MANAGER INTERN [employer] Cutter Software Release Engineer - Clinical 12/25/22 01/03/23 [place] [address] [place] [address] Assigned Surgical Provider 12/22/22 05/17/23 Mamadou Bowie MD 909 [place] [address] Assigned PCP 03/23/23 Herber Lopez MD 420 [facility] 98 [place], [place] 224135 Assigned Surgical Provider 05/18/23 07/25/24 Makenzie Romano MD [address] 106304 wastewater supervisor & Neurology - Child & Adolescent Psychiatry 11/08/23 Shani Stephenson MD 420 [place] [address] Resident Psychiatry 11/08/23 Yomi Campos, PhD 2312 [place] 6159856 [place], [place] 342164 Assigned Behavioral Health Provider 01/27/24 08/25/24 Ita Newton Specialty Fabrics And Material Cutter 06/04/24 Kenya Jennings MD 420 [facility] 195 [place], [place] 300415 Plastic Surgery 06/04/24 Herber Lopez MD 420 [facility] 98 [place], [place] 616545 Assigned Dermatology Provider 07/26/24 Сергей Dumont [facility] Software Release Engineer 08/13/24 Kenya Jennings MD [address] [facility] [address] [place], [place] 745105 Assigned Surgical Provider 08/26/24 Jesse Arvizu MD 5775 [place], [place] 918676 Assigned Behavioral Health Provider 08/26/24 09/24/24 Luis Dudley MD 240 [place], [place] 662864 Assigned Behavioral Health Provider 09/25/24 10/25/24 Carmen Cole PA-C 6363 [facility] 103 [place], [place] 623025 Assigned Sleep Provider 09/25/24 Racheal Ng MD 2450 [facility] F282 [place] [address] Assigned Behavioral Health Provider 10/26/24 documented as of this encounter
--- OUTSIDE RECORDS SUMMARY | 2024-10-28 19:22 | XMS_ITS | Encounter Summary ---
Author Organization [place] Address [address] [place] [address] 07170 Care Team Providers Care Lamination Technician Name Role Phone Cindy Ruiz Unavailable [phone] Trevor Espino MD Unavailable [phone] Jaci Whitlock APRN FINANCIAL SERVICE REPRESENTATIVE Unavailable + Doris Ricci MD Unavailable Yudy Pompa MD Unavailable [phone] Mary Carmen Rodriguez MD Unavailable + Herber Lopez MD Unavailable +[phone] Gloria Elizalde MD Unavailable [phone] Mamadou Bowie MD Primary Care Provider [phone] Mamadou Bowie MD Unavailable Herber Lopez MD Unavailable +[phone] Makenzie Romano MD Unavailable [phone] Shani Stephenson MD Unavailable [phone] Yomi Campos PhD Unavailable +[phone] Ita Newton Unavailable Unavailable Kenya Jennings MD Unavailable +[phone] Herber Lopez MD Unavailable +[phone] Сергей Dumont [facility] Unavailable Unavailable Kenya Jennings MD Unavailable [phone] Jesse Arvizu MD Unavailable Luis Dudley MD Unavailable +[phone] Carmen Cole PA-C Unavailable +[phone] Racheal Ng MD Unavailable [phone] Encounter Details Date Type Department Care Team (Late st Contact Info) Description 02/10/2024 [facility] Medical Advice [facility] Mental [facility] & Addiction [place] [id number] [phone] Yoselin Fowler Social History Tobacco Use Types Packs/Day Years Used Date Smoking Tobacco: Never Passive Smoke Exposure: Never Smokeless Tobacco: Never Alcohol Use Standard Drinks/Week Comments Yes 0 (1 standard drink = 0.6 oz pur e alcohol) 1 drink every couple of weeks PHQ-2 Answer Date Recorded PHQ-2 Score 2 01/15/2024 Adolescent Education Answer Date Record ed Getting [...] in an overnight alf, or couch-surfing.) Yes 03/18/2023 Are you worried [...] PM CDT Legal Sex Female 3:58 AM FOREIGN LANGUAGES PROFESSOR Gender Identity other 11/14/2020 10:33 PM CDT Sexual Orientation Lesbian 06/22/2019 4: 20 AM FOREIGN LANGUAGES PROFESSOR documented as of this encounter Plan of Treatment Upcoming Encounters Date Type Department Care Team (Latest Contact Info) Description 10/29/2024 11:00 AM CDT [facility] [address] [phone] 11/23/2024 1:30 PM CDT Office Visit [facility] Addiction [address] [phone] Melanie Boykin MD [address] [place] [address] 607474 Gloria Elizalde MD [address] [place] [address] 373595 12/03/2024 3:00 PM CDT Office [facility] [address] [phone] Jesse Arvizu MD [address] [place] [address] 867396 12/15/2024 11:40 AM CDT Ancillary Procedure [facility] [place] [facility] [address] [phone] Yudy Pompa MD [address] [place] [address] 349[address] 12/22/2024 11:40 AM CDT Oncology Visit [facility] [address] [place] [address] [phone] Yudy Pompa MD [address] [place] [address] 02/22/2025 12:30 PM CDT Office Visit [facility] [address] [phone] Kenya Jennings MD [address] [place] [address] 03/12/2025 1:00 PM FOREIGN LANGUAGES PROFESSOR Office Visit [facility] Internal Medicine [address] [phone] Mamadou Bowie MD [address] [place] [address] 8[address] 03/23/2025 8:00 AM FOREIGN LANGUAGES PROFESSOR Hospital Encounter [facility] PeriOp Services [address] [place] [address] [phone] Kenya Jennings MD [address] [place] [address] 20436 03/23/2025 8:00 AM FOREIGN LANGUAGES PROFESSOR - 03/23/2025 12:05 PM FOREIGN LANGUAGES PROFESSOR Surgery [facility] [address] [place] [address] [phone] Kenya Jennings MD [address] [place] [address] 79087 MASTECTOMY, BILATERAL, SIMPLE, NO nipple grafts. OnQ 03/30/2025 10:00 AM FOREIGN LANGUAGES PROFESSOR Office Visit [facility] [address] [phone] Lynn Parks APRN [address] [address] 04/16/2025 1:00 PM FOREIGN LANGUAGES PROFESSOR Office Visit [facility] Internal Medicine [address] [phone] Mamadou Bowie MD [address] [place] [address] 178005 05/03/2025 4:00 PM FOREIGN LANGUAGES PROFESSOR Office Visit [facility] [address] [phone] Kenya Jennings MD [address] [place] [address] 195 [place], [place] 324325 08/17/2025 12:15 PM CDT Office Visit [facility] Dermatology Clinic [address] [phone] Herber Lopez MD [address] [place] [address] 98 [place], [place] 030405 Scheduled Procedures Name Priority Associated Diagnoses Date/Ti me MASTECTOMY, BILATERAL, FOR GENDER AFFIRMATION Gender dysphoria in adult 03/23/2025 8:00 AM FOREIGN LANGUAGES PROFESSOR documented as of this encounter Visit Diagnoses Not on filedocumented in this encounter Additional Health Concerns Assessment Noted Time PHQ-9 Depression Total Score: 6 01/14/20 24 6:54 PM CDT documented as of this encounter Care Teams Lamination Technician Relationship Specialty Start Date End Date Mamadou Bowie MD [address] [place] [address]125 PCP - General 03/18/23 Cindy Ruiz [facility] [address] [place] [address] Resident Internal Medicine 12/07/14 Trevor Espino MD [address] [place] [address] [phone] Urology 05/16/16 Jaci Whitlock APRN FINANCIAL SERVICE REPRESENTATIVE 420 [facility] 395 [place], [place] [phone] Nurse Practitioner - Women's Health 12/14/16 Doris Ricci MD [facility] & [address] [address] Physician Internal Medicine 07/11/20 Yudy Pompa MD [address] [place] [address] 745915 Assigned Cancer Care Provider 08/21/20 Mary Carmen Rodrgiuez MD 420 [facility] 98 [place], [place] 246985 Dermatology 11/09/20 Herber Lopez MD 420 [facility] 98 [place], [place] 180965 Dermapathology 11/09/20 Gloria Elizalde MD [address] [place] [address] [phone] Resident 12/24/22 Mamadou Bowie MD [address] [place] [address] 42227 Assigned PCP 03/23/23 Herber Lopez MD [address] [place] [address] 35539 Assigned Surgical Provider 05/18/23 07/25/24 Makenzie Romano MD [address] [place] [address] harbor department manager & Neurology - Child & Adolescent Psychiatry 11/08/23 Shani Stephenson MD [address] [place] [address] 43075 Resident Psychiatry 11/08/23 Yomi Campos, PhD [address] [place] [address] 32563 Assigned Behavioral Health Provider 01/27/24 08/25/24 Ita Newton Specialty Newscast Director 06/04/24 Kenya Jennings MD [address] [place] [address] 38830 Plastic Surgery 06/04/24 Hreber Lopez MD [address] [place] [address] 07557 Assigned Dermatology Provider 07/26/24 Сергей Dumont, [facility] Roll Bucker 08/13/24 Kenya Jennings MD [address] [place] [address] 63050 Assigned Surgical Provider 08/26/24 Jesse Arvizu MD [address] [place] [address] Assigned Behavioral Health Provider 08/26/24 09/24/24 Luis Dudley MD 240 [place], [place] 704764 Assigned Behavioral Health Provider 09/25/24 10/25/24 Carmen Cole PA-C 6363 [facility] 103 [place], [place] 431965 Assigned Sleep Provider 09/25/24 Racheal Ng MD 2450 [facility] F[address] [place], [place] 346404 Assigned Behavioral Health Provider 10/26/24 documented as of this encounter
--- OUTSIDE RECORDS SUMMARY | 2024-10-28 19:22 | XMS_ITS | Encounter Summary ---
Author Organization [place] Address [address] [place] [address] Care Team Providers Care Orthotist/Prosthetist Name Role Phone Cindy Ruiz Unavailable [phone] Trevor Espino MD Unavailable [phone] Jaci Whitlock APRN PAPER CUTTING MACHINE OPERATOR Unavailable + Doris Ricci MD Unavailable Yudy Pompa MD Unavailable [phone] Mary Carmen Rodriguez MD Unavailable + Herber Lopez MD Unavailable +[phone] Gloria Elizalde MD Unavailable [phone] Mamadou Bowie MD Primary Care Provider [phone] Mamadou Bowie MD Unavailable Herber Lopez MD Unavailable +[phone] Makenzie Romano MD Unavailable [phone] Shani Stephenson MD Unavailable [phone] Yomi Campos PhD Unavailable [phone] Ita Newton Unavailable Unavailable Kenya Jennings MD Unavailable [phone] Herber Lopez MD Unavailable [phone] Сергей Dumont [facility] Unavailable Unavailable Kenya Jennings MD Unavailable [phone] Jesse Arvizu MD Unavailable Luis Dudley MD Unavailable [phone] Carmen Cole PA-C Unavailable +[phone] Racheal Ng MD Unavailable [phone] Encounter Details Date Type Department Care Team (Late st Contact Info) Description 01/02/2024 [facility] Medical Advice [facility] Mental Health & Addiction [place] [id number] [phone] Yoselin Fowler Social History Tobacco Use Types Packs/Day Years Used Date Smoking Tobacco: Never Passive Smoke Exposure: Never Smokeless Tobacco: Never Alcohol Use Standard Drinks/Week Comments Yes 0 (1 standard drink = 0.6 oz pur e alcohol) 1 drink every couple of weeks PHQ-2 Answer Date Recorded PHQ-2 Score 2 12/31/2023 Adolescent Education Answer Date Record ed Getting [...] PM CDT Legal Sex Female 3:58 AM ASSEMBLER BRAZER Gender Identity other 11/14/2020 10:33 PM CDT Sexual Orientation Lesbian 06/22/2019 4: 20 AM ASSEMBLER BRAZER documented as of this encounter Plan of Treatment Upcoming Encounters Date Type Department Care Team (Latest Contact Info) Description 10/29/2024 11:00 AM CDT [facility] [address] [phone] 11/23/2024 1:30 PM CDT Office Visit [facility] Mental Health & Addiction [address] [phone] Melanie Boykin MD [address] [place] [address] 935734 Gloria Elizalde MD [address] [place] [address] 513345 12/03/2024 3:00 PM CDT Office Visit [facility] [address] [phone] Jesse Arvizu MD [address] [place] [address] 694356 12/15/2024 11:40 AM CDT Ancillary Procedure [facility] [place] [facility] [address] [phone] Yudy Pompa MD [address] [place] [address] 18[address] 12/22/2024 11:40 AM CDT Oncology Visit [facility] [address] [place] [address] [phone] Yudy Pompa MD [address] [place] [address] 46680 02/22/2025 12:30 PM CDT Office Visit [facility] Re[facility] Clinic [address] [phone] Kenya Jennings MD [address] [place] [address] 44179 03/12/2025 1:00 PM ASSEMBLER BRAZER Office Visit [facility] Clinic Internal Medicine [address] [phone] Mamadou Bowie MD [address] [place] [address] 80073 03/23/2025 8:00 AM ASSEMBLER BRAZER Hospital Encounter [facility] PeriOp Services [address] [place] [phone] Kenya Jennings MD [address] [place] [address] 09020 03/23/2025 8:00 AM ASSEMBLER BRAZER - 03/23/2025 12:05 PM ASSEMBLER BRAZER Surgery [facility] [address] [place] [address] [phone] Kenya Jennings MD [address] [place] [address] 04389 MASTECTOMY, BILATERAL, SIMPLE, NO nipple grafts. OnQ 03/30/2025 10:00 AM ASSEMBLER BRAZER Office Visit [facility] [address] [phone] Lynn Parks APRN [address] [address] 04/16/2025 1:00 PM ASSEMBLER BRAZER Office Visit [facility] Internal Medicine [address] [phone] Mamadou Bowie MD [address] [place] [address] 724675 05/03/2025 4:00 PM ASSEMBLER BRAZER Office Visit [facility] [address] [phone] Kenya Jennings MD [address] [place] [address] 195 [place], [place] 110245 08/17/2025 12:15 PM CDT Office Visit [facility] Dermatology Clinic [address] [phone] Herber Lopez MD [address] [place] [address] 98 [place], [place] 337955 Scheduled Procedures Name Priority Associated Diagnoses Date/Ti me MASTECTOMY, BILATERAL, FOR GENDER AFFIRMATION Gender dysphoria in adult 03/23/2025 8:00 AM ASSEMBLER BRAZER documented as of this encounter Visit Diagnoses Not on filedocumented in this encounter Additional Health Concerns Assessment Noted Time PHQ-9 Depression Total Score: 11 024 3:05 PM CDT documented as of this encounter Care Teams Orthotist/Prosthetist Relationship Specialty Start Date End Date Mamadou Bowie MD [address] [place] [address] 45265 PCP - General 03/18/23 Cindy Ruiz [facility] [place] [place] [address] Resident Internal Medicine 12/07/14 Trevor Espino MD [address] [place] [address] [phone] Urology 05/16/16 Jaci Whitlock APRN PAPER CUTTING MACHINE OPERATOR 420 [facility] [address] [place], [place] 561755 Nurse Practitioner - Women's Health 12/14/16 Doris Ricci MD [facility] [address] [address] Physician Internal Medicine 07/11/20 Yudy Pompa MD [address] [place] [address] 805925 Assigned Cancer Care Provider 08/21/20 Mary Carmen Rodriguez MD 420 [facility] 98 [place], [place] 584715 Dermatology 11/09/20 Herber Lopez MD 420 [facility] 98 [place], [place] 535575 Dermapathology 11/09/20 Gloria Elizalde MD [address] [place] [address] 785415 Resident 12/24/22 Mamadou Bowie MD [address] [place] [address] 37640 Assigned PCP 03/23/23 Herber Lopez MD [address] [place] [address] 12583 Assigned Surgical Provider 05/18/23 07/25/24 Makenzie Romano MD [address] [place] [address] 72[address] concrete stone finishing supervisor & Neurology - Child & Adolescent Psychiatry 11/08/23 Shani Stephenson MD [address] [place] [address] 9[address]25 Resident Psychiatry 11/08/23 Yomi Campos, PhD [address] [place] [address] 49529 Assigned Behavioral Health Provider 01/27/24 08/25/24 Ita Newton Specialty Database Engineer 06/04/24 Kenya Jennings MD [address] [place] [address] 18129 Plastic Surgery 06/04/24 Herber Lopez MD [address] [place] [address] 35182 Assigned Dermatology Provider 07/26/24 Сергей Dumont, [facility] Cricket Coach 08/13/24 Kenya Jennings MD [address] [place] [address] 43448 Assigned Surgical Provider 08/26/24 Jesse Arvizu MD [address] [place] [address] Assigned Behavioral Health Provider 08/26/24 09/24/24 Luis Dudley MD 240 [place], [place] 905654 Assigned Behavioral Health Provider 09/25/24 10/25/24 Carmen Cole PA-C 6363 [facility] 103 [place], [place] 858835 Assigned Sleep Provider 09/25/24 Racheal Ng MD 2450 [facility] F[address] [place], [place] 478404 Assigned Behavioral Health Provider 10/26/24 documented as of this encounter
--- OUTSIDE RECORDS SUMMARY | 2024-10-28 19:22 | XMS_ITS | Encounter Summary ---
Author Organization [facility] Address [address] [place] [address] 47671 Care Team Providers Care Applied Technologist Name Role Phone Cindy Ruiz Unavailable [phone] Trevor Espino MD Unavailable [phone] Melanie Boykin MD Unavailable [phone] Jaci Whitlock APRN PORT SURVEYOR Unavailable + Doris Ricci MD Unavailable Yudy Pompa MD Unavailable [phone] Jessi Mcfadden MD Unavailable Mary Carmen Rodriguez MD Unavailable + Herber Lopez MD Unavailable Yomi Izquierdo DPEulalia Unavailable Torey Luna MD Primary Care Provider Torey Luna MD Unavailable [phone] Herber Lopez MD Unavailable Maurilio Carlson MD Unavailable Herber Lopez MD Unavailable Gloria Elizalde MD Unavailable [phone] Olena Smith Unavailable Unavailable Maurilio Carlson MD Unavailable Mamadou Bowie MD Primary Care Provider [phone] Mamadou Bowie MD Unavailable Herber Lopez MD Unavailable [phone] Makenzie Romano MD Unavailable [phone] Shani Stephenson MD Unavailable [phone] Yomi Campos PhD Unavailable +[phone] Ita Newton Unavailable Unavailable Kenya Jennings MD Unavailable + [phone] Herber Lopez MD Unavailable +[phone] Сергей Dumont [facility] Unavailable Unavailable Kenya Jennings MD Unavailable + [phone] Jesse Arvizu MD Unavailable Luis Dudley MD Unavailable [phone] Carmen Cole PA-C Unavailable +[phone] Racheal Ng MD Unavailable + [phone] Encounter Details Date Type Department Care Team (Late st Contact Info) Description 10/30/2021 [facility] Medical Advice [facility] Dermatologic Surgery Clinic [address] [place] [address] [place] [address] [place] [address] Social History Tobacco Use Types Packs/Day Years Used Date Smoking Tobacco: Never Smokeless Tobacco: Never Alcohol Use Standard Drinks/Week Comments No 0 (1 standard drink = 0.6 oz pur e alcohol) PHQ-2 Answer Date Recorded PHQ-2 Score 2 10/24/2021 Comments No Sex and Gender Information Value Date Recorded Sex Assigned at Female 11/14/2020 10:33 PM CDT Legal Sex Female 3:58 AM RESOLUTION EXPERT Gender Identity other 11/14/2020 10:33 PM CDT Sexual Orientation Lesbian 06/22/2019 4: 20 AM RESOLUTION EXPERT COVID-19 Exposure Response Date Recorded In the last 10 days, have yo u been in contact with someone who was confirmed or suspected to have Coronavirus/COVID-19? Unable to assess 10/23/2021 2:56 PM CDT documented as of this encounter Miscellaneous Notes * Telephone Encounter - Luciana Joe RN - 10/30/2021 4:12 PM CDT RN assessed wound, looks appropriate for 12 days post-op. RN encouraged patient to keep applying Vaseline and covering the wound, as well as cleaning it daily. Luciana Wagoner RN documented in this encounter Plan of Treatment Upcoming Encounters Date Type Department Care Team (Latest Contact Info) Description 10/29/2024 11:00 AM CDT [facility] Visit [facility] [address] [phone] 11/23/2024 1:30 PM CDT Office Visit [facility] Mental Health & Addiction [address] [phone] Melanie Boykin MD [address] [place] [address] [phone] Gloria Elizalde MD [address] [place] [address] 239735 12/03/2024 3:00 PM CDT Office Visit [facility] Psychiatry [address] [place] [phone] Jesse Arvizu MD [address] [place] [address] 787496 12/15/2024 11:40 AM CDT Ancillary Procedure [facility] Imaging [address] [phone] Yudy Pompa MD [address] [place] [address] 66066 12/22/2024 11:40 AM CDT Oncology Visit [facility] [address] [place] [address] [phone] Yudy Pompa MD [address] [place] [address] 6[address] 02/22/2025 12:30 PM CDT Office Visit [facility] Plastic and Reconstructive Surgery Clinic [address] [phone] Kenya Jennings MD [address] [place] [address] 03/12/2025 1:00 PM RESOLUTION EXPERT Office Visit [facility] Clinic Internal Medicine [address] [phone] Mamadou Bowie MD [address] [place] [address] 87[address] 03/23/2025 8:00 AM RESOLUTION EXPERT Hospital Encounter [facility] PeriOp Services [address] [place] [address] [phone] Kenya Jennings MD [address] [place] [address] [phone] 03/23/2025 8:00 AM RESOLUTION EXPERT - 03/23/2025 12:05 PM RESOLUTION EXPERT Surgery [facility] [address] [place] [address] [phone] Kenya Jennings MD [address] [place] [address] 51674 MASTECTOMY, BILATERAL, SIMPLE, NO nipple grafts. OnQ 03/30/2025 10:00 AM RESOLUTION EXPERT Office Visit [facility] [address] [phone] Lynn Parks APRN [address] [address] 04/16/2025 1:00 PM RESOLUTION EXPERT Office Visit [facility] Internal Medicine [address] [phone] Mamadou Bowie MD [address] [place] [address] [phone] 05/03/2025 4:00 PM RESOLUTION EXPERT Office Visit [facility] [address] [phone] Kenya Jennings MD [address] [place] [address] 195 [place], [place] 274855 08/17/2025 12:15 PM CDT Office Visit [facility] Dermatology Clinic [address] [phone] Herber Lopez MD [address] [place] [address] 98 [place], [place] 010235 Scheduled Procedures Name Priority Associated Diagnoses Date/Ti me MASTECTOMY, BILATERAL, FOR GENDER AFFIRMATION Gender dysphoria in adult 03/23/2025 8:00 AM RESOLUTION EXPERT documented as of this encounter Visit Diagnoses Not on filedocumented in this encounter Additional Health Concerns Assessment Noted Time PHQ-9 Depression Total Score: 5 10/24/19 22 9:38 PM CDT documented as of this encounter Care Teams Applied Technologist Relationship Specialty Start Date End Date Torey Luna MD [address] [place] [address] [phone] PCP - General Internal Medicine 04/19/21 03/17/23 Mamadou Bowie MD [address] [place] [address] PCP - General 03/18/23 C[address] Ruiz [address] [place], [place] 046280 Resident Internal Medicine 12/07/14 Trevor Espino MD [address] [place] [address] 738165 Urology 05/16/16 Melanie Boykin MD [address] [place] [address] [phone] continuous improvement lead 12/10/16 11/07/23 Jaci Whitlock APRN CNP [address] [place] [address] [phone] Nurse Practitioner - Women's Health 12/14/16 Doris Ricci MD [facility] [address] [place] [address] Physician Internal Medicine 07/11/20 Yudy Pompa MD 9 [place], [place] 528295 Assigned Cancer Care Provider 08/21/20 Jessi Mcfadden MD [address] [place] [address] F282/2A [place], [place] [phone] Resident Psychiatry 11/08/20 12/23/22 Mary Carmen Rodriguez MD [address] [address] MD Dermatology 11/09/20 Herber Lopez MD [address] [place] [address] Dermapathology 11/09/20 Yomi Izquierdo DPM [address] [facility] [address] [place], [place] 844637 Assigned Musculoskeletal Provider 12/04/20 06/08/22 Torey Luna MD [address] [phone] Assigned PCP 04/23/21 03/22/23 Herber Lopez MD [address] [place] [address] 552915 Assigned Surgical Provider 07/30/21 11/17/21 Maurilio Carlson MD [address] [place] [address] 460605 Assigned Surgical Provider 11/18/21 11/23/22 Herber Lopez MD [address] [place] [address] 785255 Assigned Surgical Provider 11/24/22 12/21/22 Gloria Elizalde MD [address] [place] [address] [phone] Resident 12/24/22 Olena Smith LSW Specialty Core Loader Labor Expediter - Clinical 12/25/22 01/03/23 [place] [address] [facility] [place] [address] Assigned Surgical Provider 12/22/22 05/17/23 Mamadou Bowie MD [address] [place] [address] 50693 Assigned PCP 03/23/23 Herber Lopez MD [address] [place] [address] [phone] Assigned Surgical Provider 05/18/23 07/25/24 Makenzie Romano MD [address] [place] [address] 37464 continuous improvement lead & Neurology - Child & Adolescent Psychiatry 11/08/23 Shani Stephenson MD [address] [place] [address] 195575 Resident Psychiatry 11/08/23 Yomi Campos, PhD [address] [place] [address] 938774 Assigned Behavioral Health Provider 01/27/24 08/25/24 Ita Newton Specialty Core Loader 06/04/24 Kenya Jennings MD [address] [place] [address] 244925 Plastic Surgery 06/04/24 Herber Lopez MD [address] [place] [address] 119855 Assigned Dermatology Provider 07/26/24 Сергей Dumont, [facility] Labor Expediter 08/13/24 Kenya Jennings MD 420 [facility] 195 [place], [place] 398425 Assigned Surgical Provider 08/26/24 Jesse Arvizu MD 5775 [place], [place] 461136 Assigned Behavioral Health Provider 08/26/24 09/24/24 Luis Dudley MD 240 [place], [place] 992314 Assigned Behavioral Health Provider 09/25/24 10/25/24 Carmen Cole PA-C 6363 [facility] [address] [place], [place] 203775 Assigned Sleep Provider 09/25/24 Racheal Ng MD 2450 [facility] F[address] [place] [address] Assigned Behavioral Health Provider 10/26/24 documented as of this encounter
--- OUTSIDE RECORDS SUMMARY | 2024-10-28 19:22 | XMS_ITS | Encounter Summary ---
Author Organization [facility] Address [address] [place] [address] 67378 Care Team Providers Care Acetylene Operator Name Role Phone Cindy Ruiz Unavailable Trevor Espino MD Unavailable [phone] Melanie Boykin MD Unavailable [phone] Jaci Whitlock APRN METAL WEIGHER Unavailable + Doris Ricci MD Unavailable Yudy Pompa MD Unavailable [phone] Jessi Mcfadden MD Unavailable Mary Carmen Rodriguez MD Unavailable + Herber Lopez MD Unavailable Yomi Izquierdo DPEulalia Unavailable [phone] Torey Luna MD Primary Care Provider Torey Luna MD Unavailable Herber Lopez MD Unavailable Maurilio Carlson MD Unavailable Herber Lopez MD Unavailable Gloria Elizalde MD Unavailable [phone] Olena Smith Unavailable Unavailable Maurilio Carlson MD Unavailable Mamadou Bowie MD Primary Care Provider [phone] Mamadou Bowie MD Unavailable Herber Lopez MD Unavailable [phone] Makenzie Romano MD Unavailable [phone] Shani Stephenson MD Unavailable [phone] Yomi Campos PhD Unavailable [phone] Ita Newton Unavailable Unavailable Kenya Jennings MD Unavailable + [phone] Herber Lopez MD Unavailable [phone] Сергей Dumont [facility] Unavailable Unavailable Kenya Jennings MD Unavailable + [phone] Jesse Arvizu MD Unavailable Luis Dudley MD Unavailable [phone] Carmen Cole PA-C Unavailable +[phone] Racheal Ng MD Unavailable + [phone] Encounter Details Date Type Department Care Team (Late st Contact Info) Description 11/07/2021 [facility] Dermatologic Surgery Clinic [address] [place] [address] [place] [address] [place] [address] Social History Tobacco Use Types Packs/Day Years Used Date Smoking Tobacco: Never Smokeless Tobacco: Never Alcohol Use Standard Drinks/Week Comments No 0 (1 standard drink = 0.6 oz pur e alcohol) PHQ-2 Answer Date Recorded PHQ-2 Score 2 10/24/2021 Comments No Sex and Gender Information Value Date Recorded Sex Assigned at Female 11/14/2020 10:33 PM CDT Legal Sex Female 3:58 AM WOOD CAR BUILDER Gender Identity other 11/14/2020 10:33 PM CDT Sexual Orientation Lesbian 06/22/2019 4: 20 AM WOOD CAR BUILDER COVID-19 Exposure Response Date Recorded In the last 10 days, have yo u been in contact with someone who was confirmed or suspected to have Coronavirus/COVID-19? No / Unsure 11/09/2021 10:07 AM CDT documented as of this encounter Miscellaneous Notes * Telephone Encounter - Luciana Joe RN - 11/08/2021 9:33 AM CDT Please advise documented in this encounter Plan of Treatment Upcoming Encounters Date Type Department Care Team (Latest Contact Info) Description 10/29/2024 11:00 AM CDT Virtual Visit [facility] [address] [place] [address] [phone] 11/23/2024 1:30 PM CDT Office Visit [facility] Mental Health & Addiction [place] [phone] [address] [place] [address] [phone] Melanie Boykin MD [address] [place] [address] 103484 Gloria Elizalde MD [address] [place] [address] [phone] 12/03/2024 3:00 PM CDT Office Visit [facility] Psychiatry [facility] [address] [place] [phone] Jesse Arvizu MD [address] [place] [address] 99233 12/15/2024 11:40 AM CDT Ancillary Procedure [facility] [address] [place] [phone] Yudy Pompa MD [address] [place] [address] 686475 12/22/2024 11:40 AM CDT Oncology [facility] [address] [place] [address] [phone] Yudy Pompa MD [address] [place] [address] 35135 02/22/2025 12:30 PM CDT Office Visit [facility] [address] [phone] Kenya Jennings MD [address] [place] [address] 721015 03/12/2025 1:00 PM WOOD CAR BUILDER Office Visit [facility] Internal Medicine [address] [phone] Mamadou Bowie MD [address] [place] [address] 389865 03/23/2025 8:00 AM WOOD CAR BUILDER Hospital Encounter [facility] PeriOp Services [address] [place] [address] [phone] Kenya Jennings MD [address] [place] [address] 28516 03/23/2025 8:00 AM WOOD CAR BUILDER - 03/23/2025 12:05 PM WOOD CAR BUILDER Surgery [facility] PeriOp Services [address] [place] [address] [phone] Kenya Jennings MD [address] [place] [address] 411115 MASTECTOMY, BILATERAL, SIMPLE, NO nipple grafts. OnQ 03/30/2025 10:00 AM WOOD CAR BUILDER Office Visit [facility] [address] [phone] Kasey TISH Bailey METAL WEIGHER [address] [place] [address] 42914 04/16/2025 1:00 PM WOOD CAR BUILDER Office Visit [facility] Internal Medicine [address] [phone] Mamadou Bowie MD [address] [place] [address] 60276 05/03/2025 4:00 PM WOOD CAR BUILDER Office Visit [facility] [address] [phone] Kenya Jennings MD [address] [place] [address] 195 [place], [place] 634215 08/17/2025 12:15 PM CDT Office Visit [facility] Dermatology Clinic [address] [phone] Herber Lopez MD [address] [place] [address] 98 [place], [place] 504985 Scheduled Procedures Name Priority Associated Diagnoses Date/Ti me MASTECTOMY, BILATERAL, FOR GENDER AFFIRMATION Gender dysphoria in adult 03/23/2025 8:00 AM WOOD CAR BUILDER documented as of this encounter Visit Diagnoses Not on filedocumented in this encounter Additional Health Concerns Assessment Noted Time PHQ-9 Depression Total Score: 5 10/24/19 22 9:38 PM CDT documented as of this encounter Care Teams Acetylene Operator Relationship Specialty Start Date End Date Torey Luna MD [address] [place] [address] 36226 PCP - General Internal Medicine 04/19/21 03/17/23 Mamadou Bowie MD [address] [place] [address] 38062 PCP - General 03/18/23 [address] [place] [place] [address] Resident Internal Medicine 12/07/14 Trevor Espino MD [address] [place] [address] 53858 Urology 05/16/16 Melanie Boykin MD [address] [place] [address] 37288 chief radiologic technologist 12/10/16 11/07/23 Jaci Whitlock APRN CNP [address] [place] [address] 32694 Nurse Practitioner - Women's Health 12/14/16 Doris Ricci MD [facility] [address] [place] [address] Physician Internal Medicine 07/11/20 Yudy Pompa MD [address] [place] [address] 06178 Assigned Cancer Care Provider 08/21/20 Jessi Mcfadden MD [address] [place] [address] F282/2A [place] [address] Resident Psychiatry 11/08/20 12/23/22 Mary Carmen Rodriguez MD [address] [place] [address] 12223 Dermatology 11/09/20 Herber Lopez MD [address] [place] [address] 15245 Dermapathology 11/09/20 Yomi Izquierdo DPM [address] [facility] [address] [place] [address] Assigned Musculoskeletal Provider 12/04/20 06/08/22 Torey Luna MD [address] [place] [address] 13214 Assigned PCP 04/23/21 03/22/23 Herber Lopez MD [address] [place] [address] 98455 Assigned Surgical Provider 07/30/21 11/17/21 aMurilio Carlson MD [address] [place] [address] 21117 Assigned Surgical Provider 11/18/21 11/23/22 Herber Lopez MD [address] [place] [address] 51215 Assigned Surgical Provider 11/24/22 12/21/22 Gloria Elizalde MD [address] [place] [address] 02923 Resident 12/24/22 Olena Smith LSW Specialty Chemical Process Analyst Wiring Technician - Clinical 12/25/22 01/03/23 [place] [address] [place] [address] Assigned Surgical Provider 12/22/22 05/17/23 Mamadou Bowie MD 909 [place] [address] Assigned PCP 03/23/23 Herber Lopez MD 420 [facility] 98 [place], [place] 577785 Assigned Surgical Provider 05/18/23 07/25/24 Makenzie Romano MD [address] 711984 chief radiologic technologist & Neurology - Child & Adolescent Psychiatry 11/08/23 Shani Stephenson MD 420 [place] [address] Resident Psychiatry 11/08/23 Yomi Campos, PhD [address] 840464 Assigned Behavioral Health Provider 01/27/24 08/25/24 Ita Newton Specialty Chemical Process Analyst 06/04/24 Kenya Jennings MD 420 [facility] 195 [place], [place] 626165 Plastic Surgery 06/04/24 Herber Lopez MD 420 [facility] 98 [place], [place] 634925 Assigned Dermatology Provider 07/26/24 Сергей Dumont, [facility] Wiring Technician 08/13/24 Kenya Jennings MD 420 [facility] 195 [place], [place] 298405 Assigned Surgical Provider 08/26/24 Jesse Arvizu MD 5775 [place], [place] 351226 Assigned Behavioral Health Provider 08/26/24 09/24/24 Luis Dudley MD 240 [place], [place] 427224 Assigned Behavioral Health Provider 09/25/24 10/25/24 Carmen Cole PA-C 6363 [facility] [address] [place], [place] 221935 Assigned Sleep Provider 09/25/24 Racheal Ng MD 2450 [facility] F[address] [place], [place] [phone] Assigned Behavioral Health Provider 10/26/24 documented as of this encounter
--- OUTSIDE RECORDS SUMMARY | 2024-10-28 19:22 | XMS_ITS | Encounter Summary ---
Author Organization [place] Address [address] [place] [address] Care Team Providers Care Senior Controller Name Role Phone Cindy Ruiz Unavailable Trevor Espino MD Unavailable [phone] Melanie Boykin MD Unavailable [phone] Jaci Whitlock APRN EYEGLASS FRAMES INSPECTOR Unavailable + Doris Ricci MD Unavailable Yudy Pompa MD Unavailable [phone] Jessi Mcfadden MD Unavailable Mary Carmen Rodriguez MD Unavailable + Herber Lopez MD Unavailable Yomi Izquierdo DPEulalia Unavailable [phone] Torey Luna MD Primary Care Provider Torey Luna MD Unavailable Herber Lopez MD Unavailable Maurilio Carlson MD Unavailable Herber Lopez MD Unavailable [phone] Gloria Elizalde MD Unavailable [phone] Olena Smith Unavailable Unavailable Maurilio Carlson MD Unavailable Mamadou Bowie MD Primary Care Provider [phone] Mamadou Bowie MD Unavailable Herber Lopez MD Unavailable [phone] Makenzie Romano MD Unavailable [phone] Shani Stephenson MD Unavailable [phone] Yomi Campos PhD Unavailable +[phone] Ita Newton Unavailable Unavailable Kenya Jennings MD Unavailable + [phone] Herber Lopez MD Unavailable +[phone] Сергей Dumont [facility] Unavailable Unavailable Kenya Jennings MD Unavailable [phone] Jesse Arvizu MD Unavailable Luis Dudley MD Unavailable [phone] Carmen Cole PA-C Unavailable +[phone] Racheal Ng MD Unavailable + [phone] Encounter Details Date Type Department Care Team (Late st Contact Info) Description 08/18/2021 [facility] [place] [address] [phone] Christian Brooks MD [address] [place] [address] [place] [address] Social History Tobacco Use Types Packs/Day [...] PM CDT Legal Sex Female 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 No / Unsure 08/14/2021 11:50 AM CDT documented as of this encounter Plan of Treatment Upcoming Encounters Date Type Department Care Team (Latest Contact Info) Description 10/29/2024 11:00 AM CDT [facility] [address] [facility] [address] [place] [phone] 11/23/2024 1:30 PM CDT Office Visit [facility] [address] F[address] [phone] Melanie Boykin MD [address] [place] [address] [phone] Gloria Elizalde MD [address] [place], [place] [phone] 12/03/2024 3:00 PM CDT Office [facility] [address] [facility] [address] [place] [phone] Jesse Arvizu MD 5775 [place] [address] 12/15/2024 11:40 AM CDT Ancillary Procedure [facility] [address] 1st [place] [phone] Yudy Pompa MD [address] [place] [address] [phone] 12/22/2024 11:40 AM CDT Oncology Visit [facility] [address] [place] [phone] Yudy Pompa MD [address] [place] [address] [phone] 02/22/2025 12:30 PM CDT Office Visit [facility] [address] [phone] Kenya Jennings MD [address] [place] [address] 03/12/2025 1:00 PM TRUCK DRIVER HELPER Office Visit [facility] [address] [phone] Mamadou Bowie MD [address] [place] [address] 03/23/2025 8:00 AM TRUCK DRIVER HELPER Hospital Encounter [facility] [address] [place] [address] [phone] Kenya Jennings MD [address] [place] [address] 03/23/2025 8:00 AM TRUCK DRIVER HELPER - 03/23/2025 12:05 PM TRUCK DRIVER HELPER Surgery [facility] [address] [place] [address] [phone] Kenya Jennings MD [address] [place] [address] MASTECTOMY, BILATERAL, SIMPLE, NO nipple grafts. OnQ 03/30/2025 10:00 AM TRUCK DRIVER HELPER Office Visit [facility] [address] [phone] Lynn Parks APRN [address] [address] 04/16/2025 1:00 PM TRUCK DRIVER HELPER Office Visit [facility] [address] [place] [phone] Mamadou Bowie MD [address] [place] [address] 05/03/2025 4:00 PM TRUCK DRIVER HELPER Office Visit [facility] [address] [place] [phone] Kenya Jennings MD [address] [place] [address] 195 [place], [place] 436465 08/17/2025 12:15 PM CDT Office Visit [facility] [address]rd [place] [phone] Herber Lopez MD [address] [place] [address] 98 [place], [place] 636945 Scheduled Procedures Name Priority Associated Diagnoses Date/Ti me MASTECTOMY, BILATERAL, FOR GENDER AFFIRMATION Gender dysphoria in adult 03/23/2025 8:00 AM TRUCK DRIVER HELPER documented as of this encounter Visit Diagnoses Not on filedocumented in this encounter Additional Health Concerns Assessment Noted Time PHQ-9 Depression Total Score: 5 07/14/19 22 7:03 AM TRUCK DRIVER HELPER documented as of this encounter Care Teams Senior Controller Relationship Specialty Start Date End Date Torey Luna MD [address] [place] [address] PCP - General Internal Medicine 04/19/21 03/17/23 Mamadou Bowie MD [address] [place] [address] PCP - General 03/18/23 Cindy Ruiz [address] [place] [id number] Resident Internal Medicine 12/07/14 Trevor Espino MD [address] [place] [address] Urology 05/16/16 Melanie Boykin MD [address] [place] [address] chef under 12/10/16 11/07/23 Jaci Whitlock APRN [facility] [address] [place] [address] [phone] Nurse Practitioner - Women's Health 12/14/16 Doris Ricci MD [facility] [address] [address] Physician Internal Medicine 07/11/20 Yudy Pompa MD [address] [place] [address] 734635 Assigned Cancer Care Provider 08/21/20 Jessi Mcfadden MD [address] [place] [address] F282/2A [place], [place] 473264 Resident Psychiatry 11/08/20 12/23/22 Mary Carmen Rodriguez MD [address] [place] [address] 373115 Dermatology 11/09/20 Herber Lopez MD [address] [place] [address] Dermapathology 11/09/20 Yomi Izquierdo DPM [address] [facility] [address] [place] [address] Assigned Musculoskeletal Provider 12/04/20 06/08/22 Torey Luna MD [address] [place] [address] 19958 Assigned PCP 04/23/21 03/22/23 Herber Lopez MD [address] [place] [address] Assigned Surgical Provider 07/30/21 11/17/21 Maurilio Carlson MD [address] [place] [address] Assigned Surgical Provider 11/18/21 11/23/22 Herber Lopez MD [address] [place] [address]378 Assigned Surgical Provider 11/24/22 12/21/22 Gloria Elizalde MD [address] [place] [address] Resident 12/24/22 Olena Smith LSW Specialty Camouflage Specialist Aircraft Design Engineer - Clinical 12/25/22 01/03/23 [place] [address] [place] [address] Assigned Surgical Provider 12/22/22 05/17/23 Mamadou Bowie MD 909 [place] [address] Assigned PCP 03/23/23 Herber Lopez MD 420 [facility] 98 [place] [address] Assigned Surgical Provider 05/18/23 07/25/24 Makenzie Romano MD [address] 166694 chef under & Neurology - Child & Adolescent Psychiatry 11/08/23 Shani Stephenson MD 420 [place], [place] 269865 Resident Psychiatry 11/08/23 Yomi Campos, PhD [address] [place] [address] 152984 Assigned Behavioral Health Provider 01/27/24 08/25/24 Ita Newton Specialty Camouflage Specialist 06/04/24 Kenya Jennings MD [address] [place] [address]65 Plastic Surgery 06/04/24 Herber Lopez MD [address] [address] Assigned Dermatology Provider 07/26/24 Сергей Dumont, [facility] Aircraft Design Engineer 08/13/24 Kenya Jennings MD [address] [place] [address] 910065 Assigned Surgical Provider 08/26/24 Jesse Arvizu MD 5775 [place] [address] Assigned Behavioral Health Provider 08/26/24 09/24/24 Luis Dudley MD [address] [place], [place] [phone] Assigned Behavioral Health Provider 09/25/24 10/25/24 Carmen Cole PA-C [address] [facility] [address] [place], [place] 242145 Assigned Sleep Provider 09/25/24 Racheal Ng MD 2450 [facility] F282 [place], [place] [phone] Assigned Behavioral Health Provider 10/26/24 documented as of this encounter
--- OUTSIDE RECORDS SUMMARY | 2024-10-28 19:23 | XMS_ITS | Encounter Summary ---
Author Organization [place] Address [address] [place] [address] Care Team Providers Care Boot Lace Cutter Machine Name Role Phone Cindy Ruiz Unavailable [phone] Trevor Espino MD Unavailable [phone] Jaci Whitlock APRN CAR HOSTLER Unavailable + Doris Ricci MD Unavailable Yudy Pompa MD Unavailable [phone] Mary Carmen Rodriguez MD Unavailable + Herber Lopez MD Unavailable [phone] Gloria Elizalde MD Unavailable [phone] Mamadou Bowie MD Primary Care Provider [phone] Mamadou Bowie MD Unavailable Herber Lopez MD Unavailable [phone] Makenzie Romano MD Unavailable [phone] Shani Stephenson MD Unavailable [phone] Yomi Campos PhD Unavailable [phone] Ita Newton Unavailable Unavailable Kenya Jennings MD Unavailable [phone] Herber Lopez MD Unavailable [phone] Сергей Dumont [facility] Unavailable Unavailable Kenya Jennings MD Unavailable [phone] Jesse Arvizu MD Unavailable Luis Dudley MD Unavailable [phone] Carmen Cole PA-C Unavailable +[phone] Racheal Ng MD Unavailable [phone] Encounter Details Date Type Department Care Team (Late st Contact Info) Description 01/02/2024 [facility] [place] [facility] Mental Health & Addiction [place] [phone] [phone] Yoselin Fowler Social History Tobacco Use Types [...] in an overnight fci, or couch-surfing.) Yes 03/18/2023 Are you worried [...] PM CDT Legal Sex Female 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 Gender Identity other 11/14/2020 10:33 PM CDT Sexual Orientation Lesbian 06/22/2019 4: 20 AM HOT DIMPLING MACHINE OPERATOR documented as of this encounter Plan of Treatment Upcoming Encounters Date Type Department Care Team (Latest Contact Info) Description 10/29/2024 11:00 AM CDT [facility] [address] [phone] 11/23/2024 1:30 PM CDT Office Visit [facility] Mental Health [facility] Addiction [address] [phone] Melanie Boykin MD [address] [place] [address] [phone] Gloria Elizalde MD [address] [place] [address] [phone] 12/03/2024 3:00 PM CDT [facility] [address] [phone] Jesse Arvizu MD [address] [place] [address] 465556 12/15/2024 11:40 AM CDT Ancillary Procedure [facility] [address] [phone] Yudy Pompa MD [address] [place] [address] 12/22/2024 11:40 AM CDT Oncology Visit [facility] [address] [place] [address] [phone] Yudy Pompa MD [address] [place] [address] 02/22/2025 12:30 PM CDT Office Visit [facility] Plastic and Reconstructive Surgery Clinic [address] [phone] Kenya Jennings MD [address] [place] [address] 03/12/2025 1:00 PM HOT DIMPLING MACHINE OPERATOR Office Visit [facility] Clinic Internal Medicine [address] [phone] Mamadou Bowie MD [address] [place] [address] 03/23/2025 8:00 AM HOT DIMPLING MACHINE OPERATOR Hospital Encounter [facility] [address] [place] [address] [phone] Kenya Jennings MD [address] [place] [address] 03/23/2025 8:00 AM HOT DIMPLING MACHINE OPERATOR - 03/23/2025 12:05 PM HOT DIMPLING MACHINE OPERATOR Surgery [facility] [address] [place] [address] [phone] Kenya Jennings MD [address] [place] [address] 83187 MASTECTOMY, BILATERAL, SIMPLE, NO nipple grafts. OnQ 03/30/2025 10:00 AM HOT DIMPLING MACHINE OPERATOR Office Visit [facility] Plastic and Reconstructive Surgery Clinic [address] [phone] Lynn Parks APRN [address] [address] 04/16/2025 1:00 PM HOT DIMPLING MACHINE OPERATOR Office Visit [facility] Internal Medicine [address] [phone] Mamadou Bowie MD [address] [place] [address] 640305 05/03/2025 4:00 PM HOT DIMPLING MACHINE OPERATOR Office Visit [facility]astic [facility] Reconstruct[facility] Surgery Clinic [address] [phone] Kenya Jennings MD [address] [place] [address] 195 [place], [place] 202575 08/17/2025 12:15 PM CDT Office Visit [facility] Dermatology Clinic [address] [phone] Herber Lopez MD [address] [place] [address] 98 [place], [place] 224915 Scheduled Procedures Name Priority Associated Diagnoses Date/Ti me MASTECTOMY, BILATERAL, FOR GENDER AFFIRMATION Gender dysphoria in adult 03/23/2025 8:00 AM HOT DIMPLING MACHINE OPERATOR documented as of this encounter Visit Diagnoses Not on filedocumented in this encounter Additional Health Concerns Assessment Noted Time PHQ-9 Depression Total Score: 11 024 3:05 PM CDT documented as of this encounter Care Teams Boot Lace Cutter Machine Relationship Specialty Start Date End Date Mamadou Bowie MD [address] [place] [address] PCP - General 03/18/23 Cindy Ruiz HUNTER PHILIP [facility] [place] [address] Resident Internal Medicine 12/07/14 Trevor Espino MD [address] [place] [address] [phone] Urology 05/16/16 Jaci Whitlock APRN CAR HOSTLER 420 [facility] 395 [place], [place] 692725 Nurse Practitioner - Women's Health 12/14/16 Doris Ricci MD [facility] & [address] [address] Physician Internal Medicine 07/11/20 Yudy Pompa MD [address] [place] [address] [phone] Assigned Cancer Care Provider 08/21/20 Mary Carmen Rodriguez MD 420 [facility] 98 [place], [place] 884675 Dermatology 11/09/20 Herber Lopez MD 420 [facility] 98 [place], [place] 706435 Dermapathology 11/09/20 Gloria Elizalde MD [address] [place] [address] 255265 Resident 12/24/22 Mamadou Bowie MD [address] [place] [address] 21911 Assigned PCP 03/23/23 Herber Lopez MD [address] [place] [address]71 Assigned Surgical Provider 05/18/23 07/25/24 Makenzie Romano MD [address] [place] [address] grid operator & Neurology - Child & Adolescent Psychiatry 11/08/23 Shani Stephenson MD [address] [place] [address] Resident Psychiatry 11/08/23 Yomi Campos, PhD [address] [place] [address] Assigned Behavioral Health Provider 01/27/24 08/25/24 Ita Newton Specialty Apparel Sales Leader 06/04/24 Kenya Jennings MD [address] [place] [address] 11560 Plastic Surgery 06/04/24 Herber Lopez MD [address] [place] [address] Assigned Dermatology Provider 07/26/24 Сергей Dumont, [facility] Top Distribution Executive 08/13/24 Kenya Jennings MD [address] [place] [address]84 Assigned Surgical Provider 08/26/24 Jesse Arvizu MD [address] [place] [address] Assigned Behavioral Health Provider 08/26/24 09/24/24 Luis Dudley MD 240 [place], [place] 391174 Assigned Behavioral Health Provider 09/25/24 10/25/24 Carmen Cole PA-C 6363 [facility] [address] 103 [place], [place] 985115 Assigned Sleep Provider 09/25/24 Racheal Ng MD 2450 [facility] F282 [place], [place] 873834 Assigned Behavioral Health Provider 10/26/24 documented as of this encounter
[2024-10-28 19:25] VITALS: BP 206/79; PULSE 89; RESP 14; TEMP 35.9; O2SAT 98; BMI 37.5
[2024-10-28 20:16] VITALS: BP 159/85; PULSE 61; RESP 20; O2SAT 98
--- NOTE | 2024-10-28 20:22 | ED.GENADULT ---
HPI - General Adult General Chief complaint: Hypertension Stated complaint: Hypertension Time Seen by Provider: 10/28/24 20:22 History of Present Illness HPI narrative: Pt here for eval of hypertension ( 224/128 at home ). Reports symptomatic with BRAY x1 hr ago, CP, dizziness, nausea. Denies palpitations, SOB. 59-year-old woman presenting to the emergency department with concern of high blood pressure. Beginning shift I see her in a busy emergency department. She is concerned about the lack of attention she has received here regarding her high blood pressure. Initial blood pressure here was 206/79 with a recheck at 159/85. Following ingestion of some bad/fermented meat she noted rather high blood pressures at 224/128 or so on repeated testing at home. She presented to the emergency department as she has been coached to do by her physicians. She is concerned about the MAOi that she takes interacting with the tyramine that she suspects has now ingested. She expects IV fluids and further investigation and to spend a few hours in the emergency department. Still feels generally unwell with mild headache and mild nausea and some chest pressure. Related Data Home Medications ?Medication ?Instructions ?Recorded ?Confirmed multivitamin 1 tab PO QAM 12/19/21 10/28/24 sumatriptan succinate 25 mg tablet 25 mg PO ONCE PRN 12/19/21 10/28/24 (Imitrex) bupropion HCl 200 mg tablet,12 hr 200 mg PO BID 12/16/23 10/28/24 sustained-release hydroxyzine HCl 25 mg tablet 25 mg PO DAILY PRN 07/02/24 10/28/24 methylphenidate HCl 5 mg tablet 5 mg PO QDAY PRN 07/02/24 10/28/24 prazosin 1 mg capsule 1 mg PO QHS 07/02/24 10/28/24 tranylcypromine 10 mg tablet 20 mg PO BID 10/28/24 10/28/24 Previous Rx's ?Medication ?Instructions ?Recorded prochlorperazine maleate 5 mg 5 mg PO Q8H PRN nausea #20 tabs 12/23/23 tablet Allergies Allergy/AdvReac Type Severity Reaction Status Date / Time Sulfa (Sulfonamide Allergy Intermediate Rash Verified 10/28/24 19:23 Antibiotics) adhesive Allergy Mild Rash Verified 10/28/24 19:23 Review of Systems Status of ROS: Reports: 6 or more systems reviewed and unremarkable except as noted in History and below [facility] Medical History History of endometrial cancer ?Z85.42 - Personal history of malignant neoplasm of other parts of uterus (ICD-10) History of renal calculi ?Z87.442 - Personal history of urinary calculi (ICD-10) Surgical History History of total hysterectomy with bilateral salpingo-oophorectomy (BSO) (2016) ?Z90.710 - Acquired absence of both cervix and uterus (ICD-10) ?Z90.722 - Acquired absence of ovaries, bilateral (ICD-10) ?Z90.79 - Acquired absence of other genital organ(s) (ICD-10) History of parathyroidectomy (01/22/11) ?E89.2 - Postprocedural hypoparathyroidism (ICD-10) History of ovarian cystectomy (11/16/10) ?Z98.890 - Other specified postprocedural states (ICD-10) ?Z87.42 - Personal history of other diseases of the female genital tract (ICD-10) 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 Emesis bag is at hand. Pupils are equal. Cranial nerves 2-12 to be intact. Lower extremity without edema. She generally appears well perfused though skin is little clammy. Breathing easily. Lungs are clear. Heart in regular rate and rhythm without murmur rub or gallop. Const: Vital Signs, click to edit/add: Vital Signs - 24 hr 10/28/24 19:25 10/28/24 20:16 10/28/24 22:29 Temperature 96.7 F L Pulse Rate [Pulse Oximeter] 89 61 74 Respiratory Rate 14 20 20 Blood Pressure [Ri t Upper Arm] 206/79 H 159/85 H 118/75 Pulse Oximetry 98 98 97 Oxygen Delivery Me thod Room Air Room Air Documenting provider has reviewed patient's vital signs: yes Course Vital Signs Vital signs: Initial Vital Signs Temperature 96.7 F L 10/28/24 19:25 Temperature Source Temporal Artery Scan 10/28/24 19:25 Pulse Rate 89 10/28/24 19:25 Pulse Rhythm Regular 10/28/24 19:25 Respiratory Rate 14 10/28/24 19:25 Blood Pressure 206/79 H 10/28/24 19:25 Blood Pressure Mean 121 H 10/28/24 19:25 Blood Pressure Position Sitting 10/28/24 19:25 Pulse Oximetry 98 10/28/24 19:25 Oxygen Delivery Method Room Air 10/28/24 19:25 Vital Signs Temperature 96.7 F L 10/28/24 19:25 Pulse Rate 89 10/28/24 19:25 Respiratory Rate 14 10/28/24 19:25 Blood Pressure 206/79 H 10/28/24 19:25 Pulse Oximetry 98 10/28/24 19:25 Oxygen Delivery Method Room Air 10/28/24 19:25 Temperature 96.7 F L 10/28/24 19:25 Pulse Rate 74 10/28/24 22:29 Respiratory Rate 20 10/28/24 22:29 Blood Pressure 118/75 10/28/24 22:29 Pulse Oximetry 97 10/28/24 22:29 Oxygen Delivery Method Room Air 10/28/24 20:16 Medications Administered Medications: Discontinued Medications Generic Name Dose Route Start Last Admin Trade Name Freq PRN Reason Stop Dose Admin Acetaminophen 1,000 mg 10/28/24 21:15 10/28/24 21:32 Acetaminophen 500 Mg Tablet PO 10/28/24 21:16 1,000 mg ONCE ONE Administration Sodium Chloride 500 mls @ 500 mls/hr 10/28/24 20:40 10/28/24 22:12 0.9 % Sodium Chloride 500 Ml IV 10/28/24 21:39 Infused .Q1H ONE Infusion Prochlorperazine 5 mg 10/28/24 21:15 10/28/24 21:32 Prochlorperazine 5 Mg/Ml Vial IVP 10/28/24 21:16 5 mg ONCE ONE Administration Medical Decision Making MDM Narrative Medical decision making narrative: Concern would be for hypertensive crisis or possibly serotonin syndrome. I do not see evidence of that here other than just isolated elevated blood pressure which on recheck at improved. Will continue to monitor closely. Monitor for pressures and for rhythm abnormalities. I would suspect some anxiety also contributing. On reassessment she would appreciate treatment for nausea. Typically would take promethazine and so this was ordered along with acetaminophen for headache. On reassessment was improved. Labs are reassuring. Monitored on desktop technician during time in emergency department. There were no events. Blood pressures remain lower. Final blood pressure 118/75. Overall she feels much better. See patient discharge plan for further discussion. Medical Records Medical records reviewed: Yes I reviewed the patient's medical records Lab Data Lab results reviewed: Yes I reviewed the patient's lab results Labs: Lab Results 10/28/24 10/28/24 Range/Units 20:54 21:03 WBC 7.37 (4.50-11.00) K/uL RBC 4.40 (4.00-5.20) m/uL Hgb 13.0 (12.0-16.0) gm/dL Hct 39.6 (33.0-51.0) % MCV 90 (80-100) fL MCH 30 (26-34) pg MCHC 33 (32-36) gm/dL RDW Coeff of Adrianna 13.8 (11.5-15.5) % Plt Count 385 (140-440) K/uL Neut % (Auto) 68.9 (42.0-72.0) % Lymph % (Auto) 18.9 L (20-44) % [place] % (Auto) 9.5 (0.0-11.0) % Eos % (Auto) 1.8 (0.0-7.0) % Baso % (Auto) 0.8 (0.0-3.0) % Neut # (Auto) 5.08 (1.7-7.0) K/uL Lymph # (Auto) 1.40 (0.90-2.90) K/uL [place] # (Auto) 0.70 (0.00-0.90) K/UL Eos # (Auto) 0.13 (0.00-0.50) K/uL Baso # (Auto) 0.06 (0.00-0.30) K/uL Abs Immat Gran (auto) 0.01 (0.00-0.30) K/uL Imm/Tot Granulo (auto) 0.1 % Sodium 140 (135-149) mmol/L Potassium 4.3 (3.6-5.1) mmol/L Chloride 102 (96-114) mmol/L Carbon Dioxide 30 (20-32) mmol/L Anion Gap 8 (7-15) mEq/L BUN 20 (7-30) mg/dL Creatinine 1.0 (0.5-1.5) mg/dL Estimated Creat Clear 64.69 Estimated GFR 64 ml/min Glucose 115 (60-115) mg/dL Calcium 9.0 (8.4-10.6) mg/dL Urine Color Yellow (Yellow) Urine Appearance Clear (Clear) Urine pH 6.0 (5.0-8.5) Ur Specific [place] >= 1.030 (1.000-1.030) Urine Protein Trace A (Negative) Urine Glucose (UA) Negative (Negative) Urine Ketones Negative (Negative) Urine Blood Negative (Negative) Urine Nitrite Negative (Negative) Urine Bilirubin Negative (Negative) Urine Urobilinogen 0.2 (0.2-1.0) Ur Leukocyte Esterase Negative (Negative) Urine RBC 0-2 (0-2) Urine WBC 0-2 (0-5) Ur Squamous Epith Cells Moderate A (None-Few) Urine Bacteria Moderate A (None) Fine Granular Casts Few A (None) Discharge Plan Discharge Clinical Impression: Elevated blood pressure reading Patient Disposition: Home w/ Parent or Adult Condition: Improved Additional Instructions: I am happy you are feeling better. As I said I cannot be sure what happened here this evening. Your evaluation here though was reassuring. Certainly feel free to return for persistently high blood pressures particularly if accompanied by headache, chest pain or shortness of breath. Prescriptions: No Action multivitamin Tablet 1 tab PO QAM sumatriptan succinate [Imitrex] 25 mg tablet 25 mg PO ONCE PRN bupropion HCl 200 mg tablet sustained-release 12 hr 200 mg PO BID hydroxyzine HCl 25 mg tablet 25 mg PO DAILY PRN prazosin 1 mg capsule 1 mg PO QHS methylphenidate HCl 5 mg tablet 5 mg PO QDAY PRN tranylcypromine 10 mg tablet 20 mg PO BID prochlorperazine maleate 5 mg tablet 5 mg PO Q8H PRN (Reason: nausea) Qty: 20 1RF Follow Up/Referrals: Doris Ricci MD [Primary Care Provider, Internal Medicine] Stand Alone Forms: [facility] Info Instructions
[2024-10-28 21:02] LABS: Appearance Urine Clear (Clear); Bilirubin Urine Negative (Negative); Blood Urine Negative (Negative); Color Urine Yellow (Yellow); Glucose Urine Negative (Negative); Ketones Urine Negative (Negative); Leukocyte Esterase Urine Negative (Negative); Nitrite Urine Negative (Negative); Protein Urine Trace (Negative); Specific Gravity Urine >= 1.030 (1.000-1.030); Urobilinogen Urine 0.2 (0.2-1.0)
[2024-10-28 21:07] LABS: Basophils Absolute Auto 0.06 K/uL (0.00-0.30); Basophils Percent Auto 0.8 % (0.0-3.0); Eosinophils Absolute Auto 0.13 K/uL (0.00-0.50); Eosinophils Percent Auto 1.8 % (0.0-7.0); Hematocrit 39.6 % (33.0-51.0); Immature Granulocytes Abs Auto 0.01 K/uL (0.00-0.30); Immature Granulocytes Pct Auto 0.1 %; Lymphocytes Percent Auto 18.9 % (20-44); Mean Corpuscular HGB Conc 33 gm/dL (32-36); Mean Corpuscular Hemoglobin 30 pg (26-34); Mean Corpuscular Volume 90 fL (80-100); Monocytes Percent Auto 9.5 % (0.0-11.0); Neutrophils Absolute Auto 5.08 K/uL (1.7-7.0); Neutrophils Percent Auto 68.9 % (42.0-72.0); Platelet Count* 385 K/uL (140-440); RDW Coefficient of Variation % 13.8 % (11.5-15.5); White Blood Count* 7.37 K/uL (4.50-11.00)
[2024-10-28 21:08] LABS: Slide Review Reflex No
[2024-10-28] MEDS: 0.9 % SODIUM CHLORIDE 500 ML 500 ML IV (21:08)
[2024-10-28 21:18] LABS: Bacteria Urine Moderate; Fine Granular Casts Urine Few; RBC Urine 0-2 (0-2); Squamous Epithelial Cell Urine Moderate (None-Few); WBC Urine 0-2 (0-5)
[2024-10-28 21:19] LABS: Chloride* 102 mmol/L (96-114); Potassium* 4.3 mmol/L (3.6-5.1); Sodium* 140 mmol/L (135-149)
[2024-10-28 21:22] LABS: Anion Gap 8 mEq/L (7-15); Blood Urea Nitrogen* 20 mg/dL (7-30); Carbon Dioxide* 30 mmol/L (20-32); Est. Creatinine Clearance* 64.69; Estimated Glomerular Filt Rate 64 ml/min
[2024-10-28 21:23] LABS: Glucose* 115 mg/dL (60-115)
[2024-10-28] MEDS: PROCHLORPERAZINE 5 MG/ML VIAL IVP (21:32)
[2024-10-28] MEDS: ACETAMINOPHEN 500 MG TABLET 1000 MG PO (21:32)
[2024-10-28 22:29] VITALS: BP 118/75; PULSE 74; RESP 20; O2SAT 97
== END 2024-10-28 22:42 | disposition home or self-care (01) ==
PROVIDERS: Emergency Provider Family Medicine; PCP Internal Medicine
DX: R03.0 Elevated blood-pressure reading, without diagnosis of hypertension (principal)
CPT/HCPCS: 36415; 80048; 81001; 85025; 87086; 93005; 96374; 99284; A9270; J0780; J7030

== ENCOUNTER 2025-04-23 05:01 | Emergency (ER) | payer BC, SELFPAY ==
--- OUTSIDE RECORDS SUMMARY | 2025-03-12 13:00 | XMS_ITS | Encounter Summary ---
Author Organization [facility] Address [address] [place] [id number] Care Team Providers Care Manager Wound Care Name Role Phone Cindy Ruiz Unavailable [phone] Trevor Espino MD Unavailable [phone] Jaci Whitlock APRN [employer] Unavailable + Doris Ricci MD Unavailable Yudy Pompa MD Unavailable [phone] Mary Carmen Rodriguez MD Unavailable + Herber Lopez MD Unavailable [phone] Gloria Elizalde MD Unavailable [phone] Mamadou Bowie MD Primary Care Provider [phone] Mamadou Bowie MD Unavailable Makenzie Romano MD Unavailable [phone] Shani Stephenson MD Unavailable [phone] Ita Newton Unavailable Unavailable Kenya Jennings MD Unavailable [phone] Herber Lopez MD Unavailable [phone] Сергей Dumont [facility] Unavailable Unavailable Kenya Jennings MD Unavailable Carmen Cole PA-C Unavailable [phone] Jesse Arvizu MD Unavailable Marita Chisholm [facility] Unavailable [phone] Reason for Visit * ReasonCommentsPre-Op Exam Encounter Details DateTypeDepartmentCare Team (Latest Contact Info)Roqicfkxlif69/07/2025 1:00 PM CSTOffice Visit M [facility] [address] [place] [address] Mamadou Bowie MD [address] [place] [id number] Preop general physical exam (Primary Dx); Gender dysphoria; TARUN (obstructive sleep apnea); Fatigue, unspecified type Social History Tobacco UseTypesPacks/DayYears UsedDateSmoking Tobacco: NeverPassive Smoke Exposure: NeverSmokeless Tobacco: NeverAlcohol UseStandard Drinks/WeekComments Not Currently0 (1 standard drink = 0.6 oz pure alcohol)1 drink every couple of weeksSocial Connection and Isolation PanelAnswerDate RecordedFrequency of Communication with Friends and FamilyNot on file04/02/2024How often do you get together with friends or relatives?Three times a week04/02/2024ttends Confucianism ServicesNot on file04/02/2024ctive Member of Clubs or OrganizationsNot on file 04/02/2024ttends Club or Organization MeetingsNot on file04/02/2024Marital StatusNot on file04/02/2024HQ-2AnswerDate RecordedPHQ-2 Fqwxe59905/12/2024[facility] [place] [facility] Occupational Health - Occupational Stress QuestionnaireAnswerDate RecordedDo you feel stress - tense, restless, nervous, or anxious, or unable to sleep at night because yourmind is troubled all the time - these days?Only a xokpzo8104/02/2024Exercise Vital SignAnswerDate RecordedOn average, how many days per week do you engage in moderate to strenuous exercise (like a brisk walk)?5 days04/02/2024On average, how many minutes do you engage in exercise at this level?40 min04/02/2024dolescent EducationAnswerDate RecordedGetting School Help NeededNot on file09/26/2023Food InsecurityAnswerDate RecordedWithin the past 12 months, did you worry that your food would run out before you got money to buy more?No12/20/2024Within the past 12 months, did the food you bought just not last and you didn???t have money to getmore?No12/20/2024Housing StabilityAnswer Date RecordedDo you have housing? (Housing is defined as stable permanent housing and does not include staying outside in a car, in a tent, in an abandoned building, in an overnight nursing home, or couch-surfing.)Yes12/20/2024re you worried about losing your housing?No12/20/2024Financial Resource Strain AnswerDate RecordedWithin the past 12 months, have you or your family members you live with been unable to get utilities (heat, electricity) when it was really needed?No12/20/2024Transportation NeedsAnswerDate RecordedWithin the past 12 months, has lack of transportation kept you from medical appointments, getting your medicines, non-medical meetings or appointments, work, or from getting things that you need?No12/20/2024Interpersonal SafetyAnswerDate Recorded Do you feel physically and emotionally safe where you currently live?Yes 03/19/2023Within the past 12 months, have you been hit, slapped, kicked or otherwise physically hurt by someone?No03/19/2023Within the past 12 months, have you been humiliated or emotionally abused in other ways by your partner or ex-partner?No03/19/2023CommentsNoSex and Gender InformationValueDate RecordedSex Assigned at AzbdvFqjnhs40/12/2021 10:33 PM CDTLegal SexFemale 03/09/2012 3:58 AM CSTGender Tszzirckrugvn34/12/2021 10:33 PM CDTSexual RtoreehytnsPwujduw59/17/2020 4:20 AM CSTdocumented as of this encounter Last Filed Vital Signs Vital SignReadingTime TakenCommentsBlood Grxgyvnl859/7903/12/2025 12:43 PM DEMENTIA PROGRAM DIRECTOR Tqmpk5495 12:43 PM PCPRgresmafzac18.6 ??C (97.9 ??F)03/12/2025 12:43 PM CSTRespiratory Izvk835905/12/2024 12:43 PM CSTOxygen Yrvfwebldc19%03/12/2025 12:43 PM CSTInhaled Oxygen Concentration--Hcfsij468 kg (284 lb 8 oz)03/12/2025 12:43 PM JOTFywgvs087.5 cm (5' 9.5)03/12/2025 12:43 PM CSTBody Mass Index41.41 03/12/2025 12:43 PM CSTdocumented in this encounter Patient Instructions * Patient Instructions* Mamadou Bowie MD - 03/12/2025 1:00 PM DEMENTIA PROGRAM DIRECTOR How to Take Your Medication Before Surgery Preoperative Medication Instructions Antiplatelet or Anticoagulation Medication Instructions - aspirin: Discontinue aspirin 7 days prior to procedure to reduce bleeding risk. It should be resumed postoperatively. Additional Medication Instructions - naproxen (Aleve, Naprosyn): DO NOT TAKE 4 days before surgery. - MAOIs: plan to continue perioperatively - Psychostimulants: Hold the day of surgery - Hydroxyzine- do not take day of surgery Patient Education Preparing for Your Surgery For Adults Getting started In most cases, a nurse will call to review your health history and instructions. They will give youan arrival time based on your scheduled surgery time. Please be ready to share: Your doctor's clinic name and phone number Your medical, surgical, and anesthesia history A list of allergies and sensitivities A list of medicines, including herbal treatments and ebdn-odv-hgzpsjw drugs Whether the patient has a legal guardian (ask how to send us the papers in advance) Note: You may not receive a call if you were seen at our PAC (Preoperative Assessment Center). Please tell us if you're --or if there's any chance you might be . Some surgeries may injure a fetus (unborn baby), so they require a test. Surgeries that are safe for a fetus don't always need a test, and you can choose whether to have one. Preparing for surgery Within 10 to 30 days of surgery: Have a pre-op exam (sometimes called an H&P, or History and Physical). This can be done at a clinic or pre-operative center. If you're having a , you may not need this exam. Talk to your care team. At your pre-op exam, talk to your care team about all medicines you take. (This includes CBD oil and any drugs, such as THC, marijuana, and other forms of cannabis.) If you need to stop any medicine before surgery, ask when to start taking it again. This is for your safety. Many medicines and drugs can make you bleed too much during surgery. Some change how well surgery (anesthesia) drugs work. Call your insurance company to let them know you're having surgery. (If you don't have insurance, call [phone].) Call your clinic if there's any change in your health. This includes a scrape or scratch near the surgery site, or any signs of a cold (sore throat, runny nose, cough, rash, fever). Eating and drinking guidelines For your safety: Unless your surgeon tells you otherwise, follow the guidelines below. Eat and drink as normal until 8 hours before you arrive for surgery. After that, no food or milk. You can spit out gum when you arrive. Drink clear liquids until 2 hours before you arrive. These are liquids you can see through, like water, Gatorade, and Propel Water. They also include plain black coffee and tea (no cream or milk). No alcohol for 24 hours before you arrive. The night before surgery, stop any drinks that contain THC. If your care team tells you to take medicine on the morning of surgery, it's okay to take it with asip of water. No other medicines or drugs are allowed (including CBD oil)--follow your care team's instructions. If you have questions the day of surgery, call your hospital or surgery center. Preventing infection Shower or bathe the night before and the morning of surgery. Follow the instructions your clinic gave you. (If no instructions, use regular soap.) Don't shave or clip hair near your surgery site. We'll remove the hair if needed. Don't smoke or vape the morning of surgery. No chewing tobacco for 6 hours before you arrive. A nicotine patch is okay. You may spit out nicotine gum when you arrive. For some surgeries, the surgeon will tell you to fully quit smoking and nicotine. We will make every effort to keep you safe from infection. We will: Clean our hands often with soap and water (or an alcohol-based hand rub). Clean the skin at your surgery site with a special soap that kills germs. Give you a special gown to keep you warm. (Cold raises the risk of infection.) Wear hair covers, masks, gowns, and gloves during surgery. Give antibiotic medicine, if prescribed. Not all surgeries need this medicine. What to bring on the day of surgery Photo ID and insurance card Copy of your health care directive, if you have one Glasses and hearing aids (bring cases) You can't wear contacts during surgery Inhaler and eye drops, if you use them (tell us about these when you arrive) CPAP machine or breathing device, if you use them A few personal items, if spending the night If you have . . . A pacemaker, ICD (cardiac defibrillator), or other implant: Bring the ID card. An implanted stimulator: Bring the remote control. A legal guardian: Bring a copy of the certified (court-stamped) guardianship papers. Please remove any jewelry, including body piercings. Leave jewelry and other valuables at home. If you're going home the day of surgery You must have a support person drive you home. They should stay with you overnight, and they may need to help with your self-care. If you don't have a support person, please tells us as soon as possible. We can help. After surgery If it's hard to control your pain or you need more pain medicine, please call your surgeon's office. Questions? If you have any questions for your care team, list them here: For informational purposes only. Not to replace the advice of your health care provider. Copyright ?? 2018 [facility]. All rights reserved. Clinically reviewed by Gregory Smith MD. [employer] [id number] - REV 06/30. NTIA PROGRAM DIRECTOR documented in this encounter Progress Notes * Mamadou Bowie MD - 03/12/2025 1:00 PM CST Images from the original note were not included. Preoperative Evaluation [facility] INTERNAL MEDICINE [address] [id number] Primary Provider: Mamadou Bowie MD Pre-op Performing Provider: Mamadou Bowie MD Mar 12, 2025 03/12/2025 Surgical Information What procedure is being done? Bilateral mastectomy Facility or Hospital where procedure/surgery will be performed: [facility] Who is doing the procedure / surgery? Dr. Jennings Date of surgery / procedure: 03/23 Time of surgery / procedure: TBD Where do you plan to recover after surgery? at home alone Patient-reported Fax number for surgical facility: Note does not need to be faxed, will be available electronically in [employer]. Assessment & Plan The proposed surgical procedure is considered LOW risk. Preop general physical exam: - Preoperative evaluation for upcoming surgery. No significant concerns identified on physical exam. Need to rule out physiological causes of fatigue prior to surgery. - Ordered laboratory tests including thyroid function and kidney function. Will review lab results prior to surgery. Gender dysphoria: - Gender-affirming surgery planned. Anticipated improvement in mental health and body comfort postoperatively. - Proceed with planned surgery as scheduled. TARUN (obstructive sleep apnea): - Using CPAP Fatigue, unspecified type: - Fatigue likely multifactorial, with sleep disruption as primary contributor. Will rule out metabolic and physiological causes with laboratory evaluation. - Ordered laboratory tests to assess for metabolic and physiological contributors to fatigue- CBC, CMP, TSH wnl. Consent was obtained from the patient to use an AI documentation tool in the creation of this note. Preoperative Medication Instructions MAOI usage - can continue tranylcypromine, but noting medication usage so anesthesiology is aware. Per UTD: Currently, an MAO-safe anesthetic technique which excludes the use of meperidine and indirect-acting adrenergic agonists is recommended for patients requiring continued MAO inhibitor therapy (Indy 2006). Antiplatelet or Anticoagulation Medication Instructions - aspirin: Discontinue aspirin 7 days prior to procedure to reduce bleeding risk. It should be resumed postoperatively. Additional Medication Instructions - naproxen (Aleve, Naprosyn): DO NOT TAKE 4 days before surgery. - MAOIs: plan to continue perioperatively - Psychostimulants: Hold the day of surgery - Hydroxyzine- do not take day of surgery Recommendation Approval given to proceed with proposed procedure, without further diagnostic evaluation. Subjective Gabriela is a 59 year old, presenting for the following: Pre-Op Exam 03/12/2025 12:39 PM Additional Questions Roomed by Nataly HPI: Gabriela is schedule for gender affirming top surgery. Gabriela Kraus, age 59 years Fatigue and Sleep Disturbance - Averaging 5 to 6 hours of interrupted sleep per night for several weeks prior to the encounter - Reports feeling exhausted, which has been ongoing for several weeks - Sleep issues have made daily functioning more difficult - Saw psychiatrist Dr. Ng two weeks prior, who prescribed doxepin, but has not started due to insurance delays Mental Health (Depression, PTSD, Dissociation) - Reports improvement in depressive symptoms, suicidality, and PTSD following transcranial magneticstimulation (TMS) - Continues to experience dissociative episodes, including a recent event while driving where lost track of location for 20-30 minutes - Describes ongoing adjustment to mental health changes and medication modifications - Reports hypervigilance related to PTSD, previously worsened but improved after medication adjustment - No current use of Ritalin Surgical Decision-Making - Considering this surgery, which was decided upon 2-3 years ago as a necessary but not urgent procedure - Expresses ambivalence about timing due to current fatigue and sleep disturbance, but also desire to proceed to improve comfort in body Medication and Diet Considerations - Continues to take Parmate, aware of potential interactions with anesthesia - Following a low tyramine diet - Reports two prior emergency room visits due to accidental tyramine ingestion from spoiled meat, now sources meat locally to avoid further incidents Renal Symptoms - Reports occasional kidney pain, similar to longstanding symptoms attributed to overcalcification - No worsening of kidney pain compared to usual Misc - Has an advanced healthcare directive and plans to bring an updated version for surgery 03/12/2025 Pre-Op Questionnaire Have you ever had a heart attack or stroke? No Have you ever had surgery on your heart or blood vessels, such as a stent placement, a coronary artery bypass, or surgery on an artery in your head, neck, heart, or legs? No Do you have chest pain with activity? No Do you have a history of heart failure? No Do you currently have a cold, bronchitis or symptoms of other infection? No Do you have a cough, shortness of breath, or wheezing? No Do you or anyone in your family have previous history of blood clots? No Do you or does anyone in your family have a serious bleeding problem such as prolonged bleeding following surgeries or cuts? No Have you ever had problems with anemia or been told to take iron pills? No Have you had any abnormal blood loss such as black, tarry or bloody stools, or abnormal vaginal bleeding? No Have you ever had a blood transfusion? No Are you willing to have a blood transfusion if it is medically needed before, during, or after yoursurgery? Yes Have you or any of your relatives ever had problems with anesthesia? No Do you have sleep apnea, excessive snoring or daytime drowsiness? (!) YES Do you have a CPAP machine? Yes Do you have any artifical heart valves or other implanted medical devices like a pacemaker, defibrillator, or continuous glucose monitor? No Do you have artificial joints? No Are you allergic to latex? No Patient-reported Advance Care Planning Patient states has Health Care Directive and will send to [facility]. 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 Priority: Medium TARUN (obstructive sleep apnea) 09/08/2024 Priority: Medium Attention deficit hyperactivity disorder (ADHD), combined type 06/01/2024 Priority: Medium Generalized anxiety disorder 06/27/2023 Priority: Medium BCNS (basal cell nevus syndrome) 05/16/2023 Priority: Medium Multiple melanocytic nevi 05/16/2023 Priority: Medium Neoplasm of unspecified behavior of bone, soft tissue, and skin 11/17/2022 Priority: Medium History of nonmelanoma skin cancer 11/17/2022 Priority: Medium Seborrheic keratosis 11/17/2022 Priority: Medium Solar lentigo 11/17/2022 Priority: Medium Multiple benign nevi 11/17/2022 Priority: Medium Malignant neoplasm metastatic to lung, unspecified laterality (H) 05/08/2021 Priority: Medium Encounter for long-term (current) use of medications 05/08/2021 Priority: Medium Neoplasm of uncertain behavior of skin 02/19/2021 Priority: Medium Tinea pedis of both feet 02/19/2021 Priority: Medium Major depression, recurrent 03/14/2020 Priority: Medium Morbid obesity (H) 03/10/2020 Priority: Medium PTSD (post-traumatic stress disorder) 03/03/2020 Priority: Medium s/p robotic ASHVIN - 24 10/15/2019 Priority: Medium 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 Cedillo of Dermatology. Other specified congenital malformation syndromes, not elsewhere classified 09/01/2014 Priority: Medium Postmenopausal bleeding 06/24/2013 Priority: Medium Basal cell nevus syndrome 06/24/2013 Priority: Medium Obesity 06/24/2013 Priority: Medium Past Medical History: Diagnosis Date Anesthesia feels dopey for weeks afterward, and nausea Basal cell nevus syndrome Depressive disorder Hyperparathyroidism Lesion of left ulnar nerve Positioning injury during surgery in 2015 Migraines 1990 Obese PONV (postoperative nausea and vomiting) PTSD (post-traumatic stress disorder) Thyroid disease HYPERPARATHYROID Uncomplicated asthma 07/1994 Past Surgical History: Procedure Laterality Date APPENDECTOMY 05/06/2009 BIOPSY OF SKIN LESION COLONOSCOPY 09/2018 CYSTOSCOPY N/A 01/30/2016 Procedure: CYSTOSCOPY; Surgeon: Yudy Pompa MD; Location: [facility] HYSTERECTOMY TOTAL, BILATERAL SALPINGO-OOPHORECTMY, NODE DISSECTION, TUMOR STAGING, COMBINED N/A 01/30/2016 Procedure: COMBINED [facility] HYSTERECTOMY TOTAL, SALPINGO-OOPHORECTOMY, NODE DISSECTION, TUMOR STAGING; Surgeon: Yudy Pompa MD; Location: [facility] LOBECTOMY LUNG Left 06/29/2020 Procedure: ROBOT-ASSISTED Left wedge, lobectomy, mediastinal lymph node dissection; Surgeon: Shanelle Mcgowan MD; Location: [facility] DILATION AND CURETTAGE, OPERATIVE HYSTEROSCOPY WITH MORCELLATOR, COMBINED 08/19/2013 Procedure: Hysteroscopy, Polypectomy With Morcellator, Dilation And Curettage ; Surgeon: Mimi Campos MD; Location: [facility] EYE SURGERY Multiple Excision and draining of chelazions FUNERAL PLANNER SURGERY 05/06/2000 RIGHT OOPHERECTOMY HYSTERECTOMY LAPAROSCOPIC OOPHORECTOMY 05/06/2008 right ovary LAPAROTOMY EXPLORATORY 05/06/1991 Ovarian mass removal MOHS MICROGRAPHIC PROCEDURE OOPHOROPEXY PARATHYROIDECTOMY 05/06/2010 Current Outpatient Medications Medication Sig Dispense Refill acetaminophen (TYLENOL) 500 MG tablet Take 500 mg by mouth every 6 hours as needed for mild pain albuterol (PROAIR HFA/PROVENTIL HFA/VENTOLIN HFA) 108 (90 Base) MCG/ACT inhaler Inhale 2 puffs intothe lungs every 4 hours as needed for shortness of breath or wheezing. 18 g 1 aspirin 81 MG EC tablet Take 1 tablet (81 mg) by mouth daily. 30 tablet 0 doxepin (SILENOR) 3 MG tablet Take 1-2 tablets (3-6 mg) by mouth nightly as needed for sleep (may repeat once). 120 tablet 1 fluticasone-vilanterol (BREO ELLIPTA) 100-25 MCG/ACT inhaler Inhale 1 puff into the lungs daily. 28each 11 hydrALAZINE (APRESOLINE) 10 MG tablet Take 1 tab (10mg) PRN signs of hypertensive crisis (severe headache, high BP with headache, nausea, vomitting, tremor, chest pain, shortness of breath, high anxiety) and proceed to nearest ER. May repeat once. 15 tablet 1 hydrOXYzine HCl (ATARAX) 25 MG tablet Take 1 tablet (25 mg) by mouth 2 times daily as needed for anxiety or itching. 60 tablet 2 methylphenidate (RITALIN) 5 MG tablet Take 5 mg by mouth daily as needed. minoxidil (LONITEN) 2.5 MG tablet Take one-half tablet daily 60 tablet 3 Multiple Vitamins-Minerals (MULTIVITAMIN OR) Take 1 capsule by mouth AM naproxen sodium (ANAPROX) 220 MG tablet Take 220 mg by mouth as needed prazosin (MINIPRESS) 1 MG capsule Take 1 capsule (1 mg) by mouth 3 times daily as needed (hypervigilance). 90 capsule 1 prazosin (MINIPRESS) 1 MG capsule Take 1 capsule (1 mg) by mouth at bedtime. 30 capsule 2 prochlorperazine (COMPAZINE) 5 MG tablet TAKE 1 TO 2 TABLETS BY MOUTH EVERY 4 TO 6 HOURS NEEDED FOR NAUSEA 30 tablet 3 ROZEREM 8 MG tablet Take 1 tablet (8 mg) by mouth at bedtime. 30 tablet 0 SUMAtriptan (IMITREX) 25 MG tablet Take 1 tablet (25 mg) by mouth at onset of headache for migraine. May repeat in 2 hours. Max 8 tablets/24 hours. - Oral 9 tablet 3 tranylcypromine (PARNATE) 10 MG tablet Taken 2 tablets (20 mg) every morning and 20 mg every day atnoon 120 tablet 2 Allergies[1] Social History Tobacco Use Smoking status: Never Passive exposure: Never Smokeless tobacco: Never Substance Use Topics Alcohol use: Not Currently Comment: 1 drink every couple of weeks History Drug Use No 10 point ROS of systems including Constitutional, Eyes, Respiratory, Cardiovascular, Gastroenterology, Genitourinary, Integumentary, Muscularskeletal, Psychiatric were all negative except for pertinent positives noted in my HPI. Objective BP 123/79 (BP Location: Right arm, Patient Position: Sitting, Cuff Size: Adult Large) Pulse 78 Temp 97.9 ??F (36.6 ??C) (Oral) Resp 16 Ht 1.765 m (5' 9.5) Wt 129 kg (284 lb 8 oz) LMP (LMP Unknown) SpO2 96% BMI 41.41 kg/m?? Estimated body mass index is 41.41 kg/m?? as calculated from the following: Height as of this encounter: 1.765 m (5' 9.5). Weight as of this encounter: 129 kg (284 lb 8 oz). Physical Exam GENERAL APPEARANCE: healthy, alert and no distress HENT: normal ear canals and TMs, nose and mouth without ulcers or lesions NECK: no adenopathy, no asymmetry, masses, or scars RESP: lungs clear to auscultation - no rales, rhonchi or wheezes CV: regular rates and rhythm, normal S1 S2, no S3 or S4 and no murmur, click or rub - ABDOMEN: soft, nontender, no HSM or masses and bowel sounds normal MS: extremities normal- no gross deformities noted, no evidence of inflammation in joints NEURO: mentation intact and speech normal PSYCH: mentation appears normal. and affect normal/bright LYMPHATICS: No cervical or supraclavicular nodes Recent Labs Lab Test 12/20/24 0641 12/19/24 2103 HGB 12.0 13.2 PLT 330 415 NA 140 140 POTASSIUM 4.3 4.4 CR 0.76 0.88 Diagnostics Recent Results (from the past 24 hours) Hemoglobin A1c Collection Time: 03/12/25 1:15 PM Result Value Ref Range Estimated Average Glucose 120 (H) <117 mg/dL Hemoglobin A1C 5.8 (H) <5.7 % TSH with free T4 reflex Collection Time: 03/12/25 1:15 PM Result Value Ref Range TSH 1.60 0.30 - 4.20 uIU/mL Comprehensive metabolic panel (BMP + Alb, Alk Phos, ALT, AST, Total. Bili, TP) Collection Time: 03/12/25 1:15 PM Result Value Ref Range Sodium 139 135 - 145 mmol/L Potassium 4.4 3.4 - 5.3 mmol/L Carbon Dioxide (CO2) 25 22 - 29 mmol/L Anion Gap 11 7 - 15 mmol/L Urea Nitrogen 19.7 8.0 - 23.0 mg/dL Creatinine 0.82 0.51 - 1.17 mg/dL GFR Estimate 81 >60 mL/min/1.73m2 Calcium 9.2 8.8 - 10.4 mg/dL Chloride 103 98 - 107 mmol/L Glucose 88 70 - 99 mg/dL Alkaline Phosphatase 90 40 - 150 U/L AST 30 0 - 45 U/L ALT 23 0 - 70 U/L Protein Total 7.0 6.4 - 8.3 g/dL Albumin 4.0 3.5 - 5.2 g/dL Bilirubin Total 0.5 <=1.2 mg/dL CBC with platelets Collection Time: 03/12/25 1:15 PM Result Value Ref Range WBC Count 7.44 4.00 - 11.00 10e3/uL RBC Count 4.13 3.80 - 5.90 10e6/uL Hemoglobin 12.1 11.7 - 17.7 g/dL Hematocrit 36.9 35.0 - 53.0 % MCV 89.3 78.0 - 100.0 fL MCH 29.3 26.5 - 33.0 pg MCHC 32.8 31.5 - 36.5 g/dL RDW 14.4 10.0 - 15.0 % Platelet Count 357 150 - 450 10e3/uL No EKG required, no history of coronary heart disease, significant arrhythmia, peripheral arterial disease or other structural heart disease. Revised Cardiac Risk Index (RCRI) The patient has the following serious cardiovascular risks for perioperative complications: - No serious cardiac risks = 0 points RCRI Interpretation: 0 points: Class I (very low risk - 0.4% complication rate) Signed Electronically by: Mamadou Bowie MD A copy of this evaluation report is provided to the requesting physician. [1] Allergies Allergen Reactions Adhesive Tape Rash Sulfa Antibiotics Rash NTIA PROGRAM DIRECTOR documented in this encounter Plan of Treatment DateTypeDepartmentCare Team (Latest Contact Info)Mhoavhkidof90/29/2025 4:00 PM CSTOffice Visit [facility] [place] [address] [facility] [address] 4th [place] [address] Kenya Jennings MD [address] [facility] [address] [place], [place] [phone] 05/20/2025 1:00 PM CSTOffice Visit [facility] [address] [facility] [address] [place] [address] Racheal Ng MD [id number] [place] [address] 05/25/2025 10:40 AM CSTOffice Visit [facility] [address] [phone] Yael Reaves MD [address] [place], [place] [phone] 08/17/2025 12:15 PM CDTOffice Visit [facility] [address] [place] [phone] Herber Lopez MD [address] [phone] 01/14/2026 1:40 PM CDTAncillary Procedure [facility] [address] [place] [phone] Yudy Pompa MD [address] [place] [phone] 01/18/2026 1:20 PM CDTOncology Visit [facility] [address] [place] [phone] Yudy Pompa MD [address] [place] [phone] documented as of this encounter Goals GoalPatient Goal TypeAssociated ProblemsRecent ProgressPatient-Stated?Author MYC ECC SURG ENROLL Care PlanMyC ECC SURG ENROLLNoSpearFina murray Jdocumented as of this encounter Results * CBC with platelets (03/12/2025 1:15 PM DEMENTIA PROGRAM DIRECTOR)ComponentValueRef RangeTest Method Analysis TimePerformed AtPathologist SignatureWBC Count7.444.00 - 11.00 10e3/uL/11/2024 1:20 PM [facility]STUC[facility] - CORE LABRBC Count4.133.80 - 5.90 10e6/uL11/11/2024 1:20 PM CSTUC[facility] - CORE LABComment:Reference Range: Female 3.80-5.20 10e6/uL Male 4.40-5.90 10e6u/WBuujzcitoa48.111.7 - 17.7 g/dL03/12/2025 1:20 PM CSTUC[facility] - CORE LABComment:Reference Range: Female 11.7-15.7 g/dL Male 13.3-17.7 g/gJUpgrpnuyok87.935.0 - 53.0 % 03/12/2025 1:20 PM CST[facility] - CORE LABComment:Reference Range: Female 35.0-47.0 % Male 40.0-54.0 %MCV89.378.0 - 100.0 fL03/12/2025 1:20 PM [facility]ST[facility] VLBKZR50.326.5 - 33.0 pg03/12/2025 1:20 PM [facility] RTHVKRI79.831.5 - 36.5 g/dL03/12/2025 1:20 PM [facility] TQYTAN15.410.0 - 15.0 %03/12/2025 1:20 PM [facility]ST[facility] - CORE LABPlatelet Ldbei648102 - 450 10e3/uL03/12/2025 1:20 PM [facility] LABSpecimen (Source)Anatomical Location / Laterality Collection Method / VolumeCollection TimeReceived TimeBloodSTRUCTURE OF LEFT UPPER LIMB / UnknownVenipuncture / Jhkiyyh0503/12/2025 1:15 PM CST03/12/2025 1:15 PM DEMENTIA PROGRAM DIRECTOR Narrative [facility] - 03/12/2025 1:20 PM DEMENTIA PROGRAM DIRECTOR The generation of reference intervals for this test is currently based on binary male or female sex. If the electronic health record information indicates another gender identity or if Legal Sex is recorded as Unknown, both male and female reference intervals are provided where applicable, and should be considered according to the individual's appropriate clinical context. Authorizing ProviderResult TypeResult StatusLee Gogo Bowie MDLAB - BLOOD ORDERABLESFinal ResultPerforming OrganizationAddressCity/State/ZIP CodePhone Number [facility] [place] [id number] [facility] 1st [place] [address] * Comprehensive metabolic panel (BMP + Alb, Alk Phos, ALT, AST, Total. Bili, TP) (03/12/2025 1:15 PM DEMENTIA PROGRAM DIRECTOR)ComponentValueRef RangeTest MethodAnalysis Time Performed AtPathologist LllgansugKgbjwb817689 - 145 mmol/L105/12/2024 1:52 PM CSTUCFL [facility] - CORE LABPotassium4.43.4 - 5.3 mmol/L105/12/2024 1:52 PM [facility]ST[facility] - CORE LABCarbon Dioxide (CO2)2522 - 29 mmol/L105/12/2024 1:52 PM [facility]ST[facility] - CORE LABAnion Gce981 - 15 mmol/L105/12/2024 1:52 PM [facility]ST[facility] - CORE LABUrea Rrzyeebt92.78.0 - 23.0 mg/dL03/12/2025 1:52 PM [facility] - CORE LABCreatinine0.820.51 - 1.17 mg/dL03/12/2025 1:52 PM [facility] - CORE LABComment: Male and Female 0-2 Months ?0.31-0.88 mg/dL 2-12 Months ?? 0.16-0.39 mg/dL 1-2 Years ? 0.18-0.35 mg/dL 3-4 Years ? 0.26-0.42 mg/dL 5-6 Years ? 0.29-0.47 mg/dL 7-8 Years ? 0.34-0.53 mg/dL 9-10 Years ?0.33-0.64 mg/dL 11-12 Years ?? 0.44-0.68 mg/dL 13-14 Years ?? 0.46-0.77 mg/dL Female 15 Years and older ??0.51-0.95 mg/dL Male 15 Years and older ??0.67-1.17 mg/dL GFR Uylnvozk91>60 mL/min/1.83i32303/12/2025 1:52 PM [facility] Comment:The generation of the estimated GFR is currently based on binary male or female sex. If the electronic health record information indicates another gender identity or if Legal Sex is recorded as Unknown, GFR estimates are not automatically calculated, and application of GFR equations or a direct GFR measurement should be considered according to the individual's appropriate clinical context.Calcium9.28.8 - 10.4 mg/dL03/12/2025 1:52 PM [facility] CORE IOBGulesarb32867 - 107 mmol/L105/12/2024 1:52 PM [facility] CORE EYMZauyqvu4163 - 99 mg/dL03/12/2025 1:52 PM [facility] Alkaline Juawvexhbqt2888 - 150 U/L105/12/2024 1:52 PM [facility] - CORE LABComment: Female: 0-15 days ?83-248 U/L 15d-1 year ?? 122-469 U/L 1-10 years ?? 142-335 U/L 10-13 years ??129-417 U/L 13-15 years ??57-254 U/L 15-17 years ??50-117 U/L 17-19 years ??45-87 U/L 19 years and older ??35-104 U/L Male: 0-15 days ?83-248 U/L 15d-1 year ?? 122-469 U/L 1-10 years ?? 142-335 U/L 10-13 years ??129-417 U/L 13-15 years ??116-468 U/L 15-17 years ??82-331 U/L 17-19 years ??55-149 U/L 19 years and older ??40-129 U/L UMO940 - 45 U/L105/12/2024 1:52 PM [facility] DXKJMM277 - 70 U/L 03/12/2025 1:52 PM [facility]ST[facility] - CORE LABComment: Female All ages ? 0-50 U/L Male 0-20 Years ? 0-50 U/L 20-Unsp. Years 0-70 U/L ?? Protein Total7.06.4 - 8.3 g/dL03/12/2025 1:52 PM [facility] Albumin4.03.5 - 5.2 g/dL03/12/2025 1:52 PM [facility] Bilirubin Total0.5<=1.2 mg/dL03/12/2025 1:52 PM [facility] Specimen (Source)Anatomical Location / LateralityCollection Method / Volume Collection TimeReceived TimeBloodSTRUCTURE OF LEFT UPPER LIMB / Unknown Venipuncture / Juwbiqg4603/12/2025 1:15 PM CST03/12/2025 1:15 PM DEMENTIA PROGRAM DIRECTOR Narrative [facility] - 03/12/2025 1:52 PM DEMENTIA PROGRAM DIRECTOR The generation of reference intervals for this test is currently based on binary male or female sex. If the electronic health record information indicates another gender identity or if Legal Sex is recorded as Unknown, both male and female reference intervals are provided where applicable, and should be considered according to the individual's appropriate clinical context. Authorizing ProviderResult TypeResult StatusLeadi Bowie MDLAB - BLOOD ORDERABLESFinal ResultPerforming OrganizationAddressCity/State/ZIP CodePhone Number [facility] [address] [place] [address] * TSH with free T4 reflex (03/12/2025 1:15 PM DEMENTIA PROGRAM DIRECTOR)ComponentValueRef RangeTest MethodAnalysis TimePerformed AtPathologist SignatureTSH1.600.30 - 4.20 uIU/mL 03/12/2025 1:52 PM [facility]ST[facility] - CORE LABSpecimen (Source)Anatomical Location / LateralityCollection Method / VolumeCollection TimeReceived Time BloodSTRUCTURE OF LEFT UPPER LIMB / UnknownVenipuncture / Ievvihy7003/12/2025 1:15 PM CST03/12/2025 1:15 PM DEMENTIA PROGRAM DIRECTOR Narrative Authorizing ProviderResult TypeResult StatusMamadou DESHPANDE - BLOOD ORDERABLESFinal ResultPerforming OrganizationAddressCity/State/ZIP CodePhone Number [facility] [address] [place] [address] documented in this encounter Visit Diagnoses Diagnosis Preop general physical exam- Primary Other specified pre-operative examination Gender dysphoria TARUN (obstructive sleep apnea) Obstructive sleep apnea (adult) (pediatric) Fatigue, unspecified type documented in this encounter Additional Health Concerns Active ProblemsNoted DateDiagnosed DateMyC ECC SURG VJHTVL6509/11/2024ssessment Noted TimePHQ-9 Depression Total Score: 11:51 AM CSTdocumented as of this encounter Care Teams Team MemberRelationshipSpecialtyStart DateEnd Date Mamadou Bowie MD [address] [place] [address] [phone] PCP - Iixdrkv25/13/23 Cindy Ruiz [facility] [address], [place] [phone] ResidentInternal Medicine12/07/14 Trevor Espino MD [address] [place] [address] [phone] MDUrology1 Jaci Whitlock APRN [employer] [address] [place] [address] [address] [place], [place] 9[address] Nurse Practitioner - Women's Health12/14/16 Doris Ricci MD [facility] [address] [place] [address] PhysicianInternal Medicine07/11/20 Yudy Pompa MD [address] [place] [address] [phone] Assigned Cancer Care Provider08/21/20 Mary Carmen Rodriguez MD [address] [facility] [address] [place], [place] [address] MDDermatology11/09/20 Herber Lopez MD 420 [facility] 98 [place], [place] [address] MDDermapathology11/09/20 Gloria Elizalde MD 420 [place], [place] [phone] Resident12/24/22 Mamadou Bowie MD [address] [place] [address] [phone] Assigned PCP03/23/23 [place] [address] [place] [address] [phone] MDPsychiatry & Neurology - Child & Adolescent Psychiatry11/08/23 Shani Stpehenson MD 420 [place], [place] [phone] ResidentPsychiatry11/08/23 Ita Newton Specialty Care Coordinator06/04/24 Kenya Jennings MD [address] [phone] MDPlastic Surgery06/04/24 Herber Lopez MD 420 [facility] [address] [place] [address] Assigned Dermatology Provider07/26/24 Сергей Dumont [facility] Social Worker08/13/24 Kenya Jennings MD [address] [phone] Assigned Surgical Provider08/26/24 Carmen Cole PA-C [address] [place], [place] [address] Assigned Sleep Provider09/25/24 Jesse Arvizu MD [address] [place], [place] 9[address] Assigned Behavioral Health Provider12/26/2510 Marita Chsiholm [facility] [address] [place], [place] [address] JcvklbzkqjTtaqhcgosf06/22/25documented as of this encounter
--- OUTSIDE RECORDS SUMMARY | 2025-03-12 13:15 | XMS_ITS | Encounter Summary ---
Author Organization [facility] Address [address] [place] [address] Care Team Providers Care Collections Representative Name Role Phone Cindy Ruiz Unavailable Trevor Espino MD Unavailable [phone] Jaci Whitlock APRN FLORAL SPECIALIST Unavailable + Doris Ricci MD Unavailable [phone] Yudy Pompa MD Unavailable [phone] Mary Carmen Rodriguez MD Unavailable + Herber Lopez MD Unavailable [phone] Gloria Elizalde MD Unavailable [phone] Mamadou Bowie MD Primary Care Provider [phone] Mamadou Bowie MD Unavailable Makenzie Romano MD Unavailable [phone] Shani Stephenson MD Unavailable [phone] Ita Newton Unavailable Unavailable Kenya Jennings MD Unavailable [phone] Herber Lopez MD Unavailable [phone] Сергей Dumont [facility] Unavailable Unavailable Kenya Jennings MD Unavailable Carmen Cole PA-C Unavailable [phone] Jesse Arvizu MD Unavailable Marita Chisholm [facility] Unavailable [phone] Encounter Details DateTypeDepartmentCare Team (Latest Contact Info)Tntcugofnyl88/07/2025 1:15 PM CSTLab [facility] Lab [address] 1st [place] [address] Elevated glucose; Fatigue, unspecified type Social History Tobacco UseTypesPacks/DayYears UsedDateSmoking Tobacco: NeverPassive Smoke Exposure: NeverSmokeless Tobacco: NeverAlcohol UseStandard Drinks/WeekComments Not Currently0 (1 standard drink = 0.6 oz pure alcohol)1 drink every couple of weeksSocial Connection and Isolation PanelAnswerDate RecordedFrequency of Communication with Friends and FamilyNot on file04/02/2024How often do you get together with friends or relatives?Three times a week04/02/2024ttends Church ServicesNot on file04/02/2024ctive Member of Clubs or OrganizationsNot on file 04/02/2024ttends Club or Organization MeetingsNot on file04/02/2024Marital StatusNot on file04/02/2024HQ-2AnswerDate RecordedPHQ-2 Pdtbl38505/12/2024[facility] - Occupational Stress QuestionnaireAnswerDate RecordedDo you feel stress - tense, restless, nervous, or anxious, or unable to sleep at night because yourmind is troubled all the time - these days?Only a xvwvbm1904/02/2024Exercise Vital SignAnswerDate RecordedOn average, how many days per week do you engage in moderate to strenuous exercise (like a brisk walk)?5 days04/02/2024On average, how many minutes do you engage in exercise at this level?40 min04/02/2024dolescent EducationAnswerDate RecordedGetting School Help NeededNot on file01/29/2023Food InsecurityAnswerDate RecordedWithin the past 12 months, did you worry that your food would run out before you got money to buy more?No12/20/2024Within the past 12 months, did the food you bought just not last and you didn???t have money to getmore?No08/17/2025Housing StabilityAnswer Date RecordedDo you have housing? (Housing is defined as stable permanent housing and does not include staying outside in a car, in a tent, in an abandoned building, in an overnight mcc, or couch-surfing.)Yes12/20/2024re you worried about losing your [...] ex-partner?No03/19/2023CommentsNoSex and Gender InformationValueDate RecordedSex Assigned at CkqkaQsuzvl98/12/2021 10:33 PM CDTLegal SexFemale 03/09/2012 3:58 AM CSTGender Yfkqoxhbzlyde29/12/2021 10:33 PM CDTSexual EkvxosifbzrPhnkdut58/17/2020 4:20 AM CSTdocumented as of this encounter Plan of Treatment DateTypeDepartmentCare Team (Latest Contact Info)Wtpuyuyxcuh76/29/2025 4:00 PM CSTOffice Visit [facility] [address] 4th [place] [address] Kenya Jennings MD [address] [place] [address] 05/20/2025 1:00 PM CSTOffice Visit [facility] [address] [place] [address] Racheal Ng MD [address] [facility] [address] [place], [place] [address] 05/25/2025 10:40 AM CSTOffice Visit [facility] Mental Health & [facility] 2nd [facility] [address] [phone] [place] [address] [place] [address] 08/17/2025 12:15 PM CDTOffice Visit [facility] Dermatology Clinic [address] [place] [phone] Herber Lopez MD 420 [facility] 98 [place], [place] [address] 01/14/2026 1:40 PM CDTAncillary Procedure [facility] [address] [place] [phone] Yudy Pompa MD [address] [place] [address] 01/18/2026 1:20 PM CDTOncology Visit [facility] [address] [place] [address] Yudy Pompa MD [address] [place] [phone] documented as of this encounter Goals GoalPatient Goal TypeAssociated ProblemsRecent ProgressPatient-Stated?Author MYC ECC SURG ENROLL Care PlanMyC ECC SURG ENROLLNoSpearFina murray Jdocumented as of this encounter Procedures Procedure NamePriorityDate/TimeAssociated DiagnosisCommentsTSH WITH FREE T4 XFXFDLZlqlmjq31/07/2025 1:15 PM MARKETING CAMPAIGN ANALYST Fatigue, unspecified type HEMOGLOBIN C2UYwuzlyy62/07/2025 1:15 PM MARKETING CAMPAIGN ANALYST Elevated glucose COMPREHENSIVE METABOLIC NXYLEEillwna83/07/2025 1:15 PM MARKETING CAMPAIGN ANALYST Fatigue, unspecified type CBC WITH GWYFFNNRPFkiptnr22/07/2025 1:15 PM MARKETING CAMPAIGN ANALYST Fatigue, unspecified type documented in this encounter Results * CBC with platelets (03/12/2025 1:15 PM MARKETING CAMPAIGN ANALYST)ComponentValueRef RangeTest Method Analysis TimePerformed AtPathologist SignatureWBC Count7.444.00 - 11.00 10e3/uL03/12/2025 1:20 PM CSTUCSC LABORATORY - CORE LABRBC Count4.133.80 - 5.90 10e6/uL03/12/2025 1:20 PM CSTUCSC LABORATORY - CORE LABComment:Reference Range: Female 3.80-5.20 10e6/uL Male 4.40-5.90 10e6u/WDynzvhgjpb46.111.7 - 17.7 g/dL03/12/2025 1:20 PM CSTUCSC LABORATORY - CORE LABComment:Reference Range: Female 11.7-15.7 g/dL Male 13.3-17.7 g/wQCutkxwammw39.935.0 - 53.0 % 03/12/2025 1:20 PM CSTUCSC LABORATORY - CORE LABComment:Reference Range: Female 35.0-47.0 % Male 40.0-54.0 %MCV89.378.0 - 100.0 fL03/12/2025 1:20 PM CSTUCSC [facility]AT[facility] - CORE GLLBEV25.326.5 - 33.0 pg03/12/2025 1:20 PM CSTUCSC [facility] - CORE KVWNLBL06.831.5 - 36.5 g/dL03/12/2025 1:20 PM CSTUCSC [facility] - CORE QQGZWL47.410.0 - 15.0 %03/12/2025 1:20 PM CSTUCSC LABORATORY - CORE LABPlatelet Yoxnx432928 - 450 10e3/uL03/12/2025 1:20 PM CSTUCIN LABORATORY - CORE LABSpecimen (Source)Anatomical Location / Laterality Collection Method / VolumeCollection TimeReceived TimeBloodSTRUCTURE OF LEFT UPPER LIMB / UnknownVenipuncture / Pmlwdse6003/12/2025 1:15 PM CST03/12/2025 1:15 PM MARKETING CAMPAIGN ANALYST Narrative [facility] - CORE LAB - 03/12/2025 1:20 PM MARKETING CAMPAIGN ANALYST The generation of reference intervals for this [...] StatusLeadi Bowie MDLAB - BLOOD ORDERABLESFinal ResultPerforming OrganizationAddressCity/State/[facility] CodePhone Number [facility] LAB [facility] - [address] 1st [place] [address] * Comprehensive metabolic panel (BMP + Alb, Alk Phos, ALT, AST, Total. Bili, TP) (03/12/2025 1:15 PM MARKETING CAMPAIGN ANALYST)ComponentValueRef RangeTest MethodAnalysis Time Performed AtPathologist YvaeltyveUyjldg847719 - 145 mmol/L105/12/2024 1:52 PM CSTUCSC LABORATORY - CORE LABPotassium4.43.4 - 5.3 mmol/L105/12/2024 1:52 PM [facility] - CORE LABCarbon Dioxide (CO2)2522 - 29 mmol/L105/12/2024 1:52 PM CSTUCIN LABORATORY - CORE LABAnion Duh676 - 15 mmol/L105/12/2024 1:52 PM CSTUCSC LABORATORY - CORE LABUrea Dxungxml03.78.0 - 23.0 mg/dL03/12/2025 1:52 PM [facility] - CORE LABCreatinine0.820.51 - 1.17 mg/dL03/12/2025 1:52 PM CSTUCIN LABORATORY - CORE LABComment: Male and Female [...] 15 Years and older ??0.67-1.17 mg/dL GFR Zmzsebzq29>60 mL/min/1.70m94103/12/2025 1:52 PM CSTUCIN [facility] - CORE LAB Comment:The generation of [...] mg/dL03/12/2025 1:52 PM CSTUCSC LAB[facility] - CORE ODWDygkqior36693 - 107 mmol/L105/12/2024 1:52 PM CSTUCSC [facility] - CORE LWBGnwyask4934 - 99 mg/dL03/12/2025 1:52 PM CSTUCSC [facility] - CORE LAB Alkaline Snpdfjzjegv2992 - 150 U/L105/12/2024 1:52 PM [facility] - CORE LABComment: Female: 0-15 days [...] U/L 19 years and older ??40-129 U/L MOP109 - 45 U/L105/12/2024 1:52 PM [facility] CPFOWO662 - 70 U/L 03/12/2025 1:52 PM [facility]ST[facility] - CORE LABComment: Female All ages ? 0-50 U/L Male 0-20 Years ? 0-50 U/L 20-Unsp. Years 0-70 U/L ?? Protein Total7.06.4 - 8.3 g/dL03/12/2025 1:52 PM [facility] Albumin4.03.5 - 5.2 g/dL03/12/2025 1:52 PM [facility] Bilirubin Total0.5<=1.2 mg/dL03/12/2025 1:52 PM [facility] Specimen (Source)Anatomical Location / LateralityCollection Method / Volume Collection TimeReceived TimeBloodSTRUCTURE OF LEFT UPPER LIMB / Unknown Venipuncture / Vvwvbau2303/12/2025 1:15 PM CST03/12/2025 1:15 PM MARKETING CAMPAIGN ANALYST Narrative [facility] - CORE LAB - 03/12/2025 1:52 PM MARKETING CAMPAIGN ANALYST The generation of reference intervals for this [...] - BLOOD ORDERABLESFinal ResultPerforming OrganizationAddressCity/State/ZIP CodePhone Number [facility] - CORE LAB [facility] - [place] [address]st [place] [address] * TSH with free T4 reflex (03/12/2025 1:15 PM MARKETING CAMPAIGN ANALYST)ComponentValueRef RangeTest MethodAnalysis TimePerformed AtPathologist SignatureTSH1.600.30 - 4.20 uIU/mL 03/12/2025 1:52 PM CSTUCSC LABORATORY - CORE LABSpecimen (Source)Anatomical Location / LateralityCollection Method / VolumeCollection TimeReceived Time BloodSTRUCTURE OF LEFT UPPER LIMB / UnknownVenipuncture / Nidqxek8503/12/2025 1:15 PM CST03/12/2025 1:15 PM MARKETING CAMPAIGN ANALYST Narrative Authorizing ProviderResult TypeResult StatusMamadou Bowie MDLAB - BLOOD ORDERABLESFinal ResultPerforming OrganizationAddressCity/State/ZIP CodePhone Number [facility] - CORE LAB [facility] - [address] 1st [place] [address] * (ABNORMAL) Hemoglobin A1c (03/12/2025 1:15 PM MARKETING CAMPAIGN ANALYST)ComponentValueRef RangeTest MethodAnalysis TimePerformed AtPathologist SignatureEstimated Average Glucose 120(H)<117 mg/dL03/12/2025 4:10 PM CSTUU LABORATORYHemoglobin A1C5.8(H)<5.7 % 03/12/2025 4:10 PM CSTUU LABORATORYComment: Normal <5.7% Prediabetes 5.7-6.4% ?? Diabetes 6.5% or higher Note: Adopted from ADA consensus guidelines. Specimen (Source)Anatomical Location / LateralityCollection Method / Volume Collection TimeReceived TimeBloodSTRUCTURE OF LEFT UPPER LIMB / Unknown Venipuncture / Xilfreq2903/12/2025 1:15 PM CST03/12/2025 1:15 PM MARKETING CAMPAIGN ANALYST Narrative Authorizing ProviderResult TypeResult StatusMamadou DESHPANDE - BLOOD ORDERABLESFinal ResultPerforming OrganizationAddressCity/State/ZIP CodePhone Number [facility] [address] [facility], [address] [place] [address], [facility] documented in this encounter Visit Diagnoses Diagnosis Elevated glucose Other abnormal glucose Fatigue, unspecified type documented in this encounter Additional Health Concerns Active ProblemsNoted DateDiagnosed DateMyC ECC SURG AHJJKA6709/11/2024ssessment Noted TimePHQ-9 Depression Total Score: 11:51 AM CSTdocumented as of this encounter Care Teams Team MemberRelationshipSpecialtyStart DateEnd Mamadou Bowie MD [address] [place], [place] [phone] PCP - Baschxo55/13/[address] [place], [place] [phone] ResidentInternal Medicine12/07/14 Trevor Espino MD [address] [place] [address] MDUrolog05/16/16 Jaci Whitlock APRN CNP [address] [facility] [address] [place], [place] [phone] Nurse Practitioner - Women's Health12/14/16 Doris Ricci MD [facility] [address] [address] PhysicianInternal Medicine07/11/20 Yudy Pompa MD [address] [place] [phone] Assigned Cancer Care Provider08/21/20 Mary Carmen Rodriguez MD [address] [facility] 98 [place], [place] [phone] MDDermatology11/09/20 Herber Lopez MD [address] [facility] [address] [place], [place] [address] MDDermapathology11/09/20 Gloria Elizalde MD [address] [place], [place] [phone] Resident12/24/22 Mamadou Bowie MD [address] [place] [address] Assigned PCP03/23/23 Makenzie Romano MD [address] [facility] [address] [place], [place] [address] MDPsychiatry & Neurology - Child & Adolescent Psychiatry11/08/23 Shani Stephenson MD [address] [place], [place] [address] ResidentPsychiatry11/08/23 Ita Newton Specialty Care Coordinator06/04/24 Kenya Jennings MD [address] [facility] [address] [place], [place] [address] MDPlastic Surgery06/04/24 Herber Lopez MD [address] [facility] 98 [place], [place] [address] Assigned Dermatology Provider07/26/24 Сергей Dumont [facility] Social Worker08/13/24 Kenya Jennings MD [address] [facility] [address] [place], [place] [address] Assigned Surgical Provider08/26/24 Carmen Cole PA-C [address] [facility] [facility] [address] [place] [address] Assigned Sleep Provider09/25/24 Jesse Arvizu MD [address] [place] [address] Assigned Behavioral Health Provider12/26/2510 Marita Chisholm [facility] [address] [address] AuceqdoricPftfhakxmy86/22/25documented as of this encounter
--- OUTSIDE RECORDS SUMMARY | 2025-03-19 14:20 | XMS_ITS | Encounter Summary ---
Author Organization [facility] Address [address] [place] [address] Care Team Providers Care Dental Manager Name Role Phone Cindy Ruiz Unavailable Trevor Espino MD Unavailable [phone] Jaci Whitlock APRN LABORATORY ASSISTANT Unavailable + Doris Ricci MD Unavailable [phone] Yudy Pompa MD Unavailable [phone] Mary Carmen Rodriguez MD Unavailable + Herber Lopez MD Unavailable [phone] Gloria Elizalde MD Unavailable [phone] Mamadou Bowie MD Primary Care Provider [phone] Mamadou Bowie MD Unavailable Makenzie Romano MD Unavailable [phone] Shani Stephenson MD Unavailable [phone] Ita Newton Unavailable Unavailable Kenya Jennings MD Unavailable [phone] Herber Lopez MD Unavailable [phone] Сергей Dumont [facility] Unavailable Unavailable Kenya Jennings MD Unavailable Carmen Cole PA-C Unavailable [phone] Jesse Arvizu MD Unavailable Marita Chisholm [facility] Unavailable [phone] Reason for Visit * ReasonCommentsRECHECK Encounter Details DateTypeDepartmentCare Team (Latest Contact Info)Svngjksnjgh54/14/2025 2:20 PM CSTVirtual Visit [facility] [address] [address] Angella Lima MD [address] [facility] [address] [place] [address] Matt Murcia MD 2450 [place] [address] Yael Reaves MD [facility] [place] [address] Moderate episode of recurrent major depressive disorder (H) (Primary Dx); PTSD (post-traumatic stress disorder); Generalized anxiety disorder; Attention deficit hyperactivity disorder (ADHD), combined type Social History Tobacco UseTypesPacks/DayYears UsedDateSmoking Tobacco: NeverPassive Smoke Exposure: NeverSmokeless Tobacco: NeverAlcohol UseStandard Drinks/WeekComments Not Currently0 (1 standard drink = 0.6 oz pure alcohol)1 drink every couple of weeksSocial Connection and Isolation PanelAnswerDate RecordedFrequency of Communication with Friends and FamilyNot on file04/02/2024How often do you get together with friends or relatives?Three times a week04/02/2024ttends Sabianist ServicesNot on file04/02/2024ctive Member of Clubs or OrganizationsNot on file 04/02/2024ttends Club or Organization MeetingsNot on file04/02/2024Marital StatusNot on file04/02/2024HQ-2AnswerDate RecordedPHQ-2 Wfehg90205/19/2024[facility] [place] of Occupational Health - Occupational Stress QuestionnaireAnswerDate RecordedDo you feel stress - tense, restless, nervous, or anxious, or unable to sleep at night because yourmind is troubled all the time - these days?Only a pftslp5804/02/2024Exercise Vital SignAnswerDate RecordedOn average, how many days [...] abandoned building, in an overnight custodial, or couch-surfing.)Yes12/20/2024re you worried about losing your [...] and emotionally safe where you currently live?Yes 03/23/2025Within the past 12 months, have you been hit, slapped, kicked or otherwise physically hurt by someone?No03/23/2025Within the past 12 months, have you been humiliated or emotionally abused in other ways by your partner or ex-partner?No03/23/2025CommentsNoSex and Gender InformationValueDate RecordedSex Assigned at ZvwfxRvoqlu33/12/2021 10:33 PM CDTLegal SexFemale 03/09/2012 3:58 AM CSTGender Dxgwlgjxqgcth77/12/2021 10:33 PM CDTSexual EitpijbzymgVihhqiq51/17/2020 4:20 AM CSTdocumented as of this encounter Patient Instructions * Patient Instructions* Yael Reaves MD - 03/19/2025 2:20 PM BIT SHARPENER Med Changes: None Next Visit : Apr 06 at 0920 For crisis resources, please see the information at the end of this document Patient Education Thank you for coming to the [facility]. Lab Testing: If you had lab testing today and your results are reassuring or normal they will be mailed to you or sent through [employer] within 7 days. If the lab tests need quick action we will call you with the results. The phone number we will call with results is # [phone]. If this is not the best numberplease call our clinic and change the number. Medication Refills: If you need any refills please call your pharmacy and they will contact us. Our fax number for refills is [phone]. Three business days of notice are needed for general medication refill requests. Five business days of notice are needed for controlled substance refill requests. If you need to change to a different pharmacy, please contact the new pharmacy directly. The new pharmacy will help you get your medications transferred. Contact Us: Please call [phone] during business hours (8-5:00 M-F). If you have medication related questions after clinic hours, or on the weekend, please call [phone]. Financial Assistance [phone] Medical Records [phone] MENTAL HEALTH CRISIS RESOURCES: For a emergency help, please call 911 or go to the nearest Emergency Department. Emergency Walk-In Options: EmPATH Unit @ [facility] ([place]): [phone] - Specialized mental health emergency area designed to be calming [facility] ([place]): [phone] [facility] Acute Psychiatry Services ([place]): [phone] [facility]): [phone] [facility] Crisis Information: Red: [phone] Bin: [phone] Daniel (CODY) - Adult: [phone] Child: [phone] Lizandro - Adult: [phone] Child: [phone] Driver: [phone] List of all [facility] resources: https://wa.[facility]/dhs/fxdvcz-ns-nzkqc/adults/health-care/mental-health/resources/cr lakshmi-contacts.jsp National Crisis Information: Crisis Text Line: Text ???[place]?? to 591397 Suicide & Crisis Lifeline: 988 National Suicide Prevention Lifeline: 4-566-867-TALK ( ) For online chat options, visit https://suicidepreventionlifeline.org/chat/ Poison Control Center: Trans Lifeline: - Hotline for transgender people of all ages The Magen Project: - Hotline for LGBT youth For Non-Emergency Support: Fast Tracker: Mental Health & Substance Use Disorder Resources - https://www.WeimickAttachments.men.org/ SHARPENER SHARPENER SHARPENER SHARPENER documented in this encounter Progress Notes * Yael Reaves MD - 03/19/2025 2:20 PM CST Images from the original note were not included. [facility] Psychiatric Progress Note GCT3 CARE TEAM: PCP- Mamadou Bowie Therapist- Charo LEAD PRESS OPERATOR individual therapy Urology Dr. Delgadillo Sheet [place] Dr. Hailee Ricci GAS PLANT SPECIALIST Dr. Pompa GAS PLANT SPECIALIST PEST CONTROLLER ASSISTANT Jaci Whitlock Dermatology Dr. Giles, Dr. Cedillo Ophthalmology Dr. Gonzalez in [place] [facility] Dr. Mcgowan, PEST CONTROLLER ASSISTANT [facility] Dr. Eulalia Frost Gabriela is a 59 year old who uses the pronouns she, her, hers. 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 They appear to benefit from current medication regimen, regular therapy, and complementary/alternative approaches to overallhealth (meditation, acupuncture, bodywork, reiki, anti-inflammatory diet, etc.). She does have a history of chronic passive SI without plan or intent that drastically improved after completing TMS and starting Parnate in October 2024 although since has had some side effects - see below. She has numerous social supports. Discussed safety plan and crisis numbers provided. She lists her dog as a protective factor. Protective factors: not wanting to burden people by dying, supportive communities, hobbies, close friends. Goal to engage more in creative hobbies. 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 Today, Gabriela shared that she is doing better since her worsening of her ptsd symptoms and dissociation. Had made changes - see below - with [facility] clinic and Dr. Ng. These changes have helped her sleep. No acute safety concerns today, SI has resolved as of late. Discussed up coming surgery which she is preparing for and ready for. She is hopeful for the changes to come and feels happy with where her medications are at. Meds currently managed by Dr. Ng until her sleep concerns/PTSD symptoms since TMS have resolved. Doing better on a lower dose of Parnate. Pt agreed to remain off Ritalin atthis time due to sleep concerns as of late. Future considerations: -Monitor Ritalin for increased anxiety - currently off -differ discussion of VNS until early 2025 based on response to MAOI, trauma therapy and a second course of TMS with [facility] clinic - gabapentin for anxiety with caveat that can worsen depression and SI Psychotropic Drug Interactions: [PSYCHCLINICDDI] CANNABIDIOL + PROCHLORPERAZINE: may result in increased risk of sedation PROCHLORPERAZINE + HYDROXYZINE: increased risk of QTc prolongation Anticholinergic burden - parnate and hydroxyzine Serotoninergic burden - parnate and Imitrex Management: routine monitoring MNPMP was checked today: indicates that controlled prescriptions have been filled as prescribed Risk Statements: Treatment Risk- Risks, benefits, alternatives and potential adverse effects have been discussed andare understood. Safety Risk-Gabriela Ochoa endorsed suicidal ideation. SUICIDE RISK ASSESSMENT- Risk factors for self-harm: recent symptom worsening, severe anxiety, and new/ worsening medical issue. Mitigating factors: no plan or intent, no h/o risky impulsive behavior, describes a safety plan, h/o seeking help , minimal substance use , feeling hopeful, future oriented, good social support , stable housing, stable finances, and worship beliefs. The patient does not appear to be at imminent risk for self-harm, hospitalization is not recommended which the pt does agree to. No hospitalization will be arranged. Additional steps to minimize risk: ID previous SI triggers, anxiety/ insomnia mngmt, and expand care team. Safety Plan placed in Pt Instructions: Yes. Plan 1) Medications: - continue prazosin 1mg at bedtime, continue prazosin 1mg PRN TID hypervigilance - continue hydroxyzine 25mg at BID PRN (uses ~2-3x/week) - Continue Parnate 40 mg QAM - managed by Dr. Ng - Continue doxepine 3-6mg at bedtime for sleep - managed by Dr. Ng - hydralazine 10mg prn for hypertensive crisis - TMS completed 10/22/2024 - Ritalin - she wants it on her med list but does not want it filled, has stopped it due to sleep issues Other Providers: - Prochlorperazine 5mg-for nausea ~once/week (PCP) - Imitrex - mg for sleep 2) Psychotherapy: Continue individual therapy ~2-3x/month 3) Next due: Labs- Routine monitoring is not indicated for current psychotropic medication regimen, A1C has beenhigher - defer to PCP EKG- Routine monitoring is not indicated for current psychotropic medication regimen. Repeat EKG with addition of any Qtc prolonging medications. EK12/19/2024 - QTC 456 Rating scales- PHQ9 4) Referrals: None 5) Other: None 6) Follow-up: Return to clinic Apr 06 Pertinent Background [most recent eval 12/24/22] Gabriela Kraus first experienced mental health issues in childhood and first received mental health care as an adult (~[phone]). She was initially seen in the [facility] psychiatry clinic from 2013 through 2016 for [...] diagnosis/treatment for cancer. She was admitted to [facility] for SI 03/03/2020-03/09/2020. Benefits significantly from complementary health treatments (such as acupuncture, Reiki, etc). Completed Day treatment at [facility]: ~Mar 2020-August 2020. Prior CBT, DBT, EMDR, and Hypnosis with individual therapists Pertinent items include: suicidal ideation, trauma hx, mutiple psychotropic trials , psych hosp andmajor medical problems Subjective Between visits, was seen with Dr. Ng at [facility] clinic where it was noted that Gabriela had ongoing sleep disruption and increased symptoms of PTSD. It is possible per Dr. Ng that TMS this Spring likely contributed to an increase in intrusion symptoms of PTSD with prominent increase in dissociation. This has likely been perpetuated by Parnate-induced disruption of sleep (an unfortunate but very common SE of all MAOIs) per Dr. Ng. Made the following changes: 1. Consolidate Parnate to AM dosing (no need for split dosing under 40mg total daily) 2. Start doxepine 3-6mg at bedtime for sleep 3. Start prazosin 1mg PRN TID hypervigilance Dr. Ng noted she would follow Gabriela during these changes. Today, Gabriela has had a lot on her plate. Sleep concerns. Hypervigilant. Had dissociative symptoms from trauma, losing time which she has not had for years she said, had dealt with her trauma prior. Went on for weeks. Was really helpful to see Dr. Ng. Tried Rozerem (didn't help) when insurance was pending. Doxapine - insurance approved only 30mg. Has had it for three nights now, seems to help with quality of sleep. Feels a little more perkier she said. Started Prazosin as well. Is trying two at bedtime and one in the AM of Prazosin. Has helped with hypervigilance. Was at a conference and missed two doses of Parnate. Mcgregor better, so scaled back to 30mg. Takes all at once in the AM and talked about this with Dr. Ng. Was getting 5-6 hours of sleep, very poor, no issue with falling a sleep. Uses CPAP. Helps. Feels current meds are right for now. Feels the Parnate was activating. Ritalin - stopped due to sleep issues and all the past conversations Has been careful to drive or use power tools since feeling more fuzzy/foggy but has been getting better. Mood: Has times now where she is less tired and has more drive which has been good SI: Less than in the past, some bad days here and there especially when was sleeping less, feels the SI is more reactive to the context than ruminations as in the past. Used to think about it before going to sleep (was sort of self soothing she said) but this has stopped. No plan or intent currently. Said does not want her life story to end with suicide. Sometimes thinks about what her life couldhave been. Side effects: just the sleep issue, edginess has gone down. Appetite: craving more sweets, said PCP talked to her about the high A1C but said she is not in a place to change the foods she eats due to the fatigue and upcoming surgery next week. Has plans for her recovery and storing up food to eat after surgery. Has double mastectomy next week 03/23. Proactive procedure. Feels different as so many of her othersurgeries have been reactive. Has been feeling good about it. Has been uncomfortable in her body for years. Is ready for this next step. Pertinent Substance Use: updated 01/18/2025 Alcohol: none Cannabis: Previously found CBD helpful for sx of long covid. Has since cut down use after finding that it was too much of a depressant. Now uses Delta 8 ~1x/week. Tobacco: No Caffeine: Coffee enemas daily. Drinks coffee in the morning Opioids: No Narcan Kit current: N/A Other substances: none Medical Review of Systems: Lightheadedness/orthostasis: Occasionally Headaches: Occasionally, improving, eye has healed from scratch. GI: None Sexual health concerns: None Contraception: No Mental Status Exam Alertness: alert and oriented Appearance: casually groomed Behavior/Demeanor: cooperative, pleasant, and calm, with fair eye contact, intermittently closes eyes Speech: normal Language: intact Psychomotor: normal or unremarkable Mood: more on my plate Affect: full range, euthymic; congruent to: mood- yes, content- yes Thought Process/Associations: unremarkable Thought Content: Reports none Denies violent ideation and delusions Perception: Reports none; Denies hallucinations Insight: good Judgment: good Cognition: does appear grossly intact; formal cognitive testing was not done Gait and Station: unremarkable Past Psych Med Trials Medication Max Dose (mg) Effect Dates of Use Bupropion 450 was kind of the go to - ? 2013 Duloxetine 60 not helpful for mood or pain 2019 Fluoxetine 40 minimally effective Lorazepam 0.5 BID ? Prazosin 5+ improved nightmares, nausea and vertiginous symptoms at doses > 5mg, fatigue venlafaxine 150 sensitive to withdrawal SEs Paroxetine Ritalin was on when complicated PTSD misconstrued as ADD. Helped some Zoloft Treatment Course and Lowe Events Since November 2022 06/27/23: Duloxetine decrease from 60 to 40mg daily total given prolonged stability 09/23/23: Wellbutrin increased from 150mg BID to 200mg BID for worsened depression 12/31/23: Self-decreased duloxetine to 20mg daily in the interim, planning to decrease to 20mg everyother day with remainder of current fill then discontinue 02/04/24: Has now discontinued duloxetine entirely 09/02/24: TMS started 10/02/24: Started Parnate titration, full dose on 10/1410/22/24: Completed TMS 10/28/24: Hypertensive crisis w/ unclear trigger 11/23/24: Taper off of Wellbutrin d/t inefficacy 01/18/25: encouraged Bid hydroxyzine dosing for anxiety and to hold off Ritalin 03/19/2025: Between visits seen in [facility] clinic where consolidated Parnate to AM dosing (no need for split dosing under 40mg total daily), started doxepine 3-6mg at bedtime for sleep and started prazosin 1mg PRN TID hypervigilance. No changes today. Vitals Pulse Readings from Last 3 Encounters: 03/12/25 78 02/25/25 101 02/22/25 82 Wt Readings from Last 3 Encounters: 03/12/25 129 kg (284 lb 8 oz) 02/22/25 125.6 kg (277 lb) 01/26/25 122.5 kg (270 lb) BP Readings from Last 3 Encounters: 03/12/25 123/79 02/25/25 124/79 02/22/25 133/84 Medical History ALLERGIES: Adhesive tape and Sulfa [...] alopecia Goltz-Gorlin syndrome TARUN (obstructive sleep apnea) Elevated troponin Prediabetes Medications Current Outpatient Medications Medication Sig Dispense [...] mg every day atnoon 120 tablet 2 Labs and Data 05/17/2024 6:57 PM 08/16/2024 4:22 PM 11/23/2024 1:16 AM PROMIS-10 Total Score w/o Sub Scores PROMIS TOTAL - SUBSCORES 24 24 26 Patient-reported 07/28/2013 3:00 PM 01/07/2024 2:57 PM CAGE-AID Total Score Total Score 0 0 Total Score MyChart 0 (A total score of 2 or greater is considered clinically significant) 01/17/2025 6:17 PM 02/24/2025 7:26 PM 03/12/2025 11:51 AM PHQ-9 SCORE PHQ-9 Total Score MyChart 6 (Mild depression) 7 (Mild depression) 10 (Moderate depression) PHQ-9 Total Score 6 7 10 Patient-reported 09/24/2024 9:08 AM 12/02/2024 4:28 PM 02/24/2025 7:27 PM VITO-7 SCORE Total Score 0 (minimal anxiety) 1 (minimal anxiety) 5 (mild anxiety) Total Score 0 1 5 Patient-reported Liver/Kidney Function, TSH Metabolic Blood counts Recent Labs Lab Test 03/12/25 1315 12/20/24 0641 AST 30 -- ALT 23 -- ALKPHOS 90 -- CR 0.82 0.76 Recent Labs Lab Test 03/12/25 1315 TSH 1.60 Recent Labs Lab Test 01/12/25 1124 CHOL 218* TRIG 141 LDL 128* HDL 62 Recent Labs Lab Test 03/12/25 1315 A1C 5.8* Recent Labs Lab Test 03/12/25 1315 GLC 88 Recent Labs Lab Test 03/12/25 1315 WBC 7.44 HGB 12.1 HCT 36.9 MCV 89.3 PLT 357 EK12/19/2024 - QTC 456 Psychiatry Individual Psychotherapy Note Psychotherapy start time - 224 PM Psychotherapy end time -314 PM Date treatment plan last reviewed with patient - 02/04/25 Subjective: This supportive psychotherapy session addressed issues [...] GAINS INTERVENTIONS DISCHARGE CRITERIA Depression: depressed mood Anxiety: excessive worry reduce depressive symptoms, develop strategies for thought distraction when ruminating, and learn 2new ways of coping with routine stressors Supportive / psychodynamic marked symptom improvement andreduced visit frequency Level of Medical Decision Making: - At least 1 chronic problem that is not stable - Engaged in prescription drug management during visit (discussed any medication benefits, side effects, alternatives, etc.) The longitudinal plan of care for the diagnosis(es)/condition(s) as documented were addressed during this visit. Due to the added complexity in care, I will continue to support Gabriela in the subsequentmanagement and with ongoing continuity of care. PROVIDER: Yael Reaves MD Funeral Limousine Driver Physician PGY3 Patient staffed in clinic with Dr. Murcia who will sign the note. Mother Tester is Dr. Lima. Answers submitted by the patient for this visit: Patient Health Questionnaire (Submitted on 01/17/2025) If you checked off any problems, how difficult have these problems made it for you to do your work,take care of things at home, or get along with other people?: Somewhat difficult PHQ9 TOTAL SCORE: 6 Cosigned by Matt Murcia MD at 03/26/2025 2:19 PM BIT SHARPENER SHARPENER SHARPENER Associated attestation - Matt Murcia MD - 03/26/2025 2:19 PM BIT SHARPENER I met with Gabriela Kraus along with the resident physician, Yael Reaves MD, and agree with the findings and the plan of care as documented in the resident???s note. Matt Murcia MD * Yael Reaves MD - 03/19/2025 2:20 PM CST Virtual Visit Details Type of service: Video Visit Video Start Time: 0225pm Video End Time:0315pm Originating Location (pt. Location): Home Distant Location (provider location): On-site Platform used for Video Visit: Isaiah Reaves MD Funeral Limousine Driver Physician Cosigned by Matt Murcia MD at 03/26/2025 2:21 PM BIT SHARPENER SHARPENER SHARPENER Associated attestation - Matt Murcia MD - 03/26/2025 2:21 PM BIT SHARPENER Reviewed. Matt Murcia MD documented in this encounter Nursing Notes * Sagrario Lowe - 03/19/2025 2:20 PM CST Current patient location: [address] [place] [phone] Is the patient currently in the state of [place]? YES Visit mode: VIDEO If the visit is dropped, the patient can be reconnected by:VIDEO VISIT: Send to e-mail at: [email or web address] Will anyone else be joining the visit? NO (If patient encounters technical issues they should call [phone]) Are changes needed to the allergy or medication list? No Are refills needed on medications prescribed by this physician? Discuss with provider Rooming Documentation: Questionnaire(s) completed Reason for visit: No chief complaint on file. Sagrario Lowe VVF SHARPENER documented in this encounter Plan of Treatment DateTypeDepartmentCare Team (Latest Contact Info)Bkqiygfwcqn01/29/2025 4:00 PM CSTOffice Visit [facility] [address] [place] [address] Kenya Jennings MD [address] [place] [address] [address] [place], [place] [phone] 05/20/2025 1:00 PM CSTOffice Visit [facility] [address] [facility] [address] [place] [phone] Racheal Ng MD [address] [place], [place] [phone] [place], [place] [phone] 05/25/2025 10:40 AM CSTOffice Visit [facility] [address] [phone] Yael Reaves MD [address] [place] [phone] 08/17/2025 12:15 PM CDTOffice Visit [facility] [place] [address] [facility] [address] [place] [phone] Herber Lopez MD [address] [place] [address] [address] [place], [place] [phone] 01/14/2026 1:40 PM CDTAncillary Procedure [facility] [address] [place] [address] Yudy Pompa MD [address] [place] [phone] 01/18/2026 1:20 PM CDTOncology Visit [facility] [address] [place] [phone] Yudy Pompa MD [address] [place] [address] documented as of this encounter Goals GoalPatient Goal TypeAssociated ProblemsRecent ProgressPatient-Stated?Author MYC ECC SURG ENROLL Care PlanO[facility] ECC SURG ENROLLNoSpearFina murray Jdocumented as of this encounter Visit Diagnoses Diagnosis Moderate episode of recurrent major depressive disorder (H)- Primary PTSD (post-traumatic stress disorder) Posttraumatic stress disorder Generalized anxiety disorder Attention deficit hyperactivity disorder (ADHD), combined type documented in this encounter Additional Health Concerns Active ProblemsNoted DateDiagnosed DateMy ECC SURG [id number] Noted TimePHQ-9 Depression Total Score: 10105/12/2024 11:51 AM CSTdocumented as of this encounter Care Teams Team MemberRelationshipSpecialtyStart DateEnd Date Mamadou Bowie MD [address] [place] [address] [id number] PCP - Zhbeedg74/13/[address] [place] [address] [place] [address] ResidentInternal Medicine12/07/14 Trevor Espino MD [address] [place] [address] Urolog05/16/16 Jaci Whitlock APRN CNP [address] [facility] [address] [place] [address] Nurse Practitioner - Women's Health12/14/16 Doris Ricci MD [facility] [address] [place] [address] PhysicianInternal Medicine07/11/20 Yudy Pompa MD [address] [place] [address] [phone] Assigned Cancer Care Provider08/21/20 Mary Carmen Rodriguez MD [address] [facility] [address] [place] [address] MDDermatology11/09/20 Herber Lopez MD [address] [facility] [address] [place], [place] 0[address] MDDermapathology11/09/20 Gloria Elizalde MD [address] [place] [address] [phone] Resident12/24/22 Mamadou Bowie MD [address] [place] [address] [phone] Assigned PCP03/23/23 Makenzie Romano MD [address] [place] [address] [phone] MDPsychiatry & Neurology - Child & Adolescent Psychiatry11/08/23 Shani Stephenson MD [address] [place], [place] 0[address]75 ResidentPsychiatry11/08/23 Ita Newton Specialty Care Coordinator06/04/24 Kenya Jennings MD [address] [place] [address] [address] [place], [place] 868245 MDPlastic Surgery06/04/24 Herber Lopez MD [address] [place] [address] [address] [place], [place] [phone] Assigned Dermatology Provider07/26/24 Сергей Dumont, [facility] Social Worker08/13/24 Kenya Jennings MD [address] [place] [address] [phone] Assigned Surgical Provider08/26/24 Carmen Cole PA-C [address] [address] Assigned Sleep Provider09/25/24 Jesse Arvizu MD [address] [place], [place] 037616 Assigned Behavioral Health Provider12/26/2510 Marita Chisholm, [facility] [address] [place], [place] [address] OzavjuceunOyhbubewfd79/22/25documented as of this encounter
--- OUTSIDE RECORDS SUMMARY | 2025-03-23 06:12 | XMS_ITS | Encounter Summary ---
Author Organization [facility] Address [address] [place] [address] Care Team Providers Care Jewelry Designer Name Role Phone Cindy Ruiz Unavailable [phone] Trevor Espino MD Unavailable [phone] Jaci Whitlock APRN WALL WASHER Unavailable + Doris Ricci MD Unavailable Yudy Pompa MD Unavailable [phone] Mary Carmen Rodriguez MD Unavailable + Herber Lopez MD Unavailable [phone] Gloria Elizalde MD Unavailable [phone] Mamadou Bowie MD Primary Care Provider [phone] Mamadou Bowie MD Unavailable Makenzie Romano MD Unavailable [phone] Shani Stephenson MD Unavailable [phone] Ita Newton Unavailable Unavailable Kenya Jennings MD Unavailable [phone] Herber Lopez MD Unavailable [phone] Сергей Dumont [facility] Unavailable Unavailable Kenya Jennings MD Unavailable [phone] Carmen Cole PA-C Unavailable [phone] Jesse Arvizu MD Unavailable Marita Chisholm [facility] Unavailable [phone] Reason for Visit * Auth/CertSpecialtyDiagnoses / ProceduresReferred By ContactReferred To Contact Surgery Diagnoses Gender dysphoria in adult Gender dysphoria in adult [F64.0] Procedures [place] MASTECTOMY, SIMPLE, COMPLETE MASTECTOMY, BILATERAL, SIMPLE, NO nipple grafts. [facility] [address] [place] [address] Phone: tel: fax: Referral IDStatusReasonStart DateExpiration DateVisits RequestedVisits [id number] Encounter Details DateTypeDepartmentCare Team (Latest Contact Info)Zykmdaleszd14/18/2025 6:12 AM SECURITY OFFICER - 03/23/2025 3:15 PM CSTHospital Encounter UR PACU [address] [facility], [place] [address] Kenya Jennings MD [address] [address] Gender dysphoria (Primary Dx) Discharge Disposition: Home or Self Care Social History Tobacco UseTypesPacks/DayYears UsedDateSmoking Tobacco: NeverPassive Smoke Exposure: NeverSmokeless Tobacco: NeverAlcohol UseStandard Drinks/WeekComments Not Currently0 (1 standard drink = 0.6 oz pure alcohol)1 drink every couple of weeksSocial Connection and Isolation PanelAnswerDate RecordedFrequency of Communication with Friends and FamilyNot on file04/02/2024How often do you get together with friends or relatives?Three times a week04/02/2024ttends Bahai ServicesNot on file04/02/2024ctive Member of Clubs or OrganizationsNot on file 04/02/2024ttends Club or Organization MeetingsNot on file04/02/2024Marital StatusNot on file04/02/2024HQ-2AnswerDate RecordedPHQ-2 Enruh78505/19/2024[facility] - Occupational Stress QuestionnaireAnswerDate RecordedDo you feel stress - tense, restless, nervous, or anxious, or unable to sleep at night because yourmind is troubled all the time - these days?Only a gpolou4404/02/2024Exercise Vital SignAnswerDate RecordedOn average, how many days [...] abandoned building, in an overnight chcf, or couch-surfing.)Yes12/20/2024re you worried about losing your housing?12/20/2024Financial Resource Strain AnswerDate RecordedWithin the past 12 [...] ex-partner?No03/23/2025CommentsNoSex and Gender InformationValueDate RecordedSex Assigned at BhkzsWcyrux26/12/2021 10:33 PM CDTLegal SexFemale 03/09/2012 3:58 AM CSTGender Pjeglatbfdtsn67/12/2021 10:33 PM CDTSexual RgddeoutwfyDxowggi23/17/2020 4:20 AM CSTdocumented as of this encounter Last Filed Vital Signs Vital SignReadingTime TakenCommentsBlood Zyedqbsn007/8103/23/2025 2:30 PM SECURITY OFFICER Yxyei511503/23/2025 1:19 PM LYGZbornwwxzdx45.7 ??C (98 ??F)03/23/2025 1:49 PM SECURITY OFFICER Respiratory Qhyc805205/23/2024 1:49 PM CSTOxygen Eaxafmupfh54%03/23/2025 2:30 PM CSTInhaled Oxygen Concentration--Peyonx594.1 kg (282 lb 6.6 oz)03/23/2025 6:46 AM KWDMljpiv919.5 cm (5' 9.49)03/23/2025 6:46 AM CSTBody Mass Index41.12 03/23/2025 6:46 AM CSTdocumented in this encounter Functional Status * Calculated C-SSRS Risk Score (Lifetime/Recent)AnswerDate of AssessmentAuthor Moderate Risk03/23/2025 7:10 AM Gloria Rivers RN * [place] Suicide Severity Rating Scale (Screener/Recent Self-Report)Question AnswerDate of AssessmentAuthor1. Wish to be (Past 1 Month)Yes03/23/2025 7:10 AM Gloria Rivers RN2. Non-Specific Active Suicidal Thoughts (Past 1 Month)Yes03/23/2025 7:10 AM Gloria Rivers RN3. Active Suicidal Ideation with any Methods (Not Plan) Without Intent to Act (Past 1 Month)No03/23/2025 7:10 AM Gloria Rivers RN4. Active Suicidal Ideation with Some Intent to Act, Without Specific Plan (Past 1 Month)No03/23/2025 7:10 AM Gloria Rivers RN5. Active Suicidal Ideation with Specific Plan and Intent (Past 1 Month)No 03/23/2025 7:10 AM Gloria Rivers RN6. Suicidal Behavior (Lifetime)Yes 03/23/2025 7:10 AM Gloria Rivers RN6. Suicidal Behavior (3 Months)No 03/23/2025 7:10 AM Gloria Rivers RN documented as of this encounter Discharge Instructions * Discharge Instructions* Tavares Valenzuela RN - 03/23/2025 12:53 PM SECURITY OFFICER To contact a doctor, call Janay Jensen's office at [phone] at the [facility]astic [facility] from 8 am till 5 pm or: [phone] and ask for the Resident Patient Financial Rep for: Plastics (answered 24 hours a day) Emergency Departments: [facility] Emergency Department: [phone] ON-Q?? Continuous Pain Pump Discharge Instructions after Bilateral Mastectomy with Dr. Jennings The OnQ pump: Dr. Jennings inserted a pain pump under your incisions. The pump is shaped like a balloon and is filled with medicine that causes numbness or loss of sensation to help control your pain around the incision. The pain pump DOES NOT contain controlled substances. The medicine in the pump may alter your ability to feel changes in temperature or pressure. The Pump: The pump delivers medicine at a very slow rate. You will NOT see the medicine moving through the tubing. As the medicine is delivered, the pump ball will slowly become smaller. It may take a day or so before you notice a change in the size and look of the pump. It typically takes 5 days for all the medicine in the pump to deliver. The middle part of the pump may look like an apple core when empty. Managing Your Pain: The Medicine and Infusion Rate: 0.2% Ropivacaine at 4mL/ hr The pain pump may not block all of the pain from your surgery so it is important that you take the pain medicines prescribed by your surgeon if you need them. If you continue to have difficulty with your pain control, please contact Dr. Jennings's clinic. Caring for Your Pump at Home: The pump functions when the blue sensor tubing in contact with your skin. Your skin temperature keeps the valve open. Currently it is adhered with a clear dressing. Please reinforce this dressing as needed to ensure pump function. Make sure there are no kinks in the tubing. Do not tape or cover up the filter. Protect the pump from sunlight and heat. When sleeping: Do not place the pump underneath the bed covers where the pump may become too warm. Do not place the pump on the floor or hang the pump on a bed post as these situations may cause thetubing to get tangled and get pulled out. Bathing/Showering: We recommend taking sponge baths until the pump is removed. It is important to not get the area where the tube enters your body wet. Removing the Tubing: Dr. Jennings will take the pain pump tubes out at your follow up appointment. If you wish to remove the tubes yourself, follow these steps: Wash your hands. Remove the clear dressing that covers the tubing. Grasp the tubing close to the skin and gently pull. If you meet resistance, stop pulling and call Dr. Jennings's clinic DO NOT cut or forcefully remove the tubing. After removal, check the end of the tubing for a dark tip. If you do not see a dark tip, call Dr. Jennings's clinic. Apply firm pressure over the site until oozing stops. Wash the area with soap and water, dry with aclean towel and then cover with a bandage. The pump is not reusable. Dispose of it in the trash and wash your hands. Troubleshooting: Tubing Comes Out From Skin: If the tube accidentally comes out, check the end of the tube for a dark tip. If you see a dark tip simply discard it and do not attempt to reinsert the tube. You will also haveto remove the tube on the other side. If you don???t see a dark tip, immediately call Dr. Jennings's clinic. Tubing Disconnection: If the tubing accidentally becomes disconnected from the pump, DO NOT reconnect the pump to the tubing. It may have been contaminated with germs. Remove the tubes as described above and call Dr. Jennings's clinic. Fluid Leaking: If enough fluid is leaking from the pump or the tubing outside your body to soak through the dressing, please contact Dr. Jennings's clinic. Immediately report the following to Dr. Jennings's clinic: Redness, warmth, swelling, or tenderness at the site the tubing was inserted Increase in pain Fever, chills, sweats Bowel or bladder changes Difficulty breathing Dizziness, lightheadedness Blurred vision Ringing or buzzing in your ears Metal taste in your mouth Numbness and/or tingling around your mouth, fingers or toes Drowsiness Confusion Trouble removing the tubing Dark tip is not present when tubing is removed During daytime hours call Dr. Jennings's plastic surgery clinic RN at [phone] or main office [phone] After hours and weekends: [phone] and ask for the Resident Patient Financial Rep for Plastic Surgeon Caring for your Ward-Rodriguez Drains after Bilateral Mastectomy with Dr. Michaela Jennings placed Ward-Rodriguez drainage tubes into your incisions. This tube drains fluid from your incision, helping prevent swelling and reducing the risk for infection. The tube is held in placeby a few stitches. The drain will be removed at a follow up appointment when the amount of drainagedecreases. Home Care: Make sure the tube does not pull. You may tape the tube to the skin below the bandage. Secure the tube and bulb inside your clothing with a safety pin. This helps keep the tube from being pulled out. Keep the bulb compressed at all times, except when you empty it. Empty your drain at least twice a day. Empty it more often if the drain is full. Wash your hands Lift the opening of the drain. Drain the fluid into a measuring cup. Record the amount of fluid each time you empty in the chart below. Share the information with your doctor at your follow-up visit. Squeeze the bulb with your hands until you hear air coming out of the bulb. Close the opening. ???Stripping?? the tube helps keep blood clots from blocking the tube. Do this twice a day when you empty the drain: Hold the tubing where it leaves the skin with one hand. This keeps it from pulling on the skin. Pinch the tubing with the thumb and first finger of your other hand. Slowly and firmly pull your thumb and first finger down the tube (squeezing the tube between your fingers). Keep squeezing the tube as you run your fingers towards the bulb. If the pulling hurts or feels like it is coming out of the skin, STOP. Begin again more gently. Let go of the tubing with both hands. If the tube is still blocked, repeat these steps three or four times. Make sure that the bulb is compressed so it creates suction. When to call your doctor: New or increased pain around the tube Redness, warmth, or swelling around the incision or tube Drainage that is foul smelling Fever over 101??F degrees Fluid leaking around the tube Bulb won't hold suction The tube falls out A sudden amount of bright red drainage filling the bulb rapidly A sudden decrease of fluid in bulb AND swelling with discomfort building up at site Your drainage record: Date Time Bulb 1: Amount of drainage (ml or cc) Bulb 2: Amount of drainage (ml or cc) Notes RITY OFFICER RITY OFFICER * Attachments The following attachments cannot be sent through Care Everywhere. * (s) After Anesthesia (Sleep Medicine) (Croatian) documented in this encounter Medications at Time of Discharge MedicationSigDispense QuantityRefillsLast FilledStart DateEnd Date acetaminophen (TYLENOL) 500 MG tablet Take 500 mg by mouth every 6 hours as needed for mild pain aspirin 81 MG EC tablet Indications:Endometrioid adenocarcinoma of uterus (H)Take 1 tablet (81 mg) by mouth daily. 30 tablet 12/20/2024 doxepin (SILENOR) 3 MG tablet Indications:PTSD (post-traumatic stress disorder),Drug-induced insomnia (H)Take 1-2 tablets (3-6 mg) by mouth nightly as needed for sleep (may repeat once). 120 tablet hydrALAZINE (APRESOLINE) 10 MG tablet Take 1 tab (10mg) PRN signs of hypertensive crisis (severe headache, high BP with headache, nausea,vomitting, tremor, chest pain, shortness of breath, high anxiety) and proceed to nearest ER. May repeat once. 15 tablet hydrOXYzine HCl (ATARAX) 25 MG tablet Indications:Gender dysphoriaTake 1 tablet (25 mg) by mouth 3 times daily as needed for itching. 12 tablet 03/23/2025 methylphenidate (RITALIN) 5 MG tablet Take 5 mg by mouth daily as needed. minoxidil (LONITEN) 2.5 MG tablet Indications:Androgenetic alopeciaTake one-half tablet daily 60 tablet Multiple Vitamins-Minerals (MULTIVITAMIN OR) Take 1 capsule by mouth AM naproxen sodium (ANAPROX) 220 MG tablet Take 220 mg by mouth as needed oxyCODONE (ROXICODONE) 5 MG tablet Indications:Gender dysphoriaTake 1 tablet (5 mg) by mouth every 6 hours as needed for severe pain. 12 tablet 03/23/2025 prazosin (MINIPRESS) 1 MG capsule Indications:PTSD (post-traumatic stress disorder)Take 1 capsule (1 mg) by mouth at bedtime. 30 capsule prochlorperazine (COMPAZINE) 10 MG tablet Indications:Gender dysphoriaTake 1 tablet (10 mg) by mouth every 6 hours as needed for nausea or vomiting. 12 tablet 03/23/2025 prochlorperazine (COMPAZINE) 5 MG tablet Indications:Mild intermittent asthma without complication,Migraine without aura and without status migrainosus, not intractableTAKE 1 TO 2 TABLETS BY MOUTH EVERY 4 TO 6 HOURS NEEDED FOR NAUSEA 30 tablet ROZEREM 8 MG tablet Indications:Drug-induced insomnia (H)Take 1 tablet (8 mg) by mouth at bedtime. 30 tablet 03/03/2025 SUMAtriptan (IMITREX) 25 MG tablet Indications:Migraine without aura and without status migrainosus, not intractableTake 1 tablet (25 mg) by mouth at onset of headache for migraine. May repeat in 2 hours. Max 8 tablets/24 hours. - Oral 9 tablet tranylcypromine (PARNATE) 10 MG tablet Taken 2 tablets (20 mg) every morning and 20 mg every day at noon 120 tablet albuterol (PROAIR HFA/PROVENTIL HFA/VENTOLIN HFA) 108 (90 Base) MCG/ACT inhaler Indications:Mild intermittent asthma without complicationInhale 2 puffs into the lungs every 4 hours as needed for shortness of breath or wheezing. 18 g azithromycin (ZITHROMAX) 250 MG tablet Indications:Gender dysphoriaTake 2 tablets (500mg) by mouth day 1, then take 1 tablet (250mg) by mouth daily for 4 days 6 tablet fluticasone-vilanterol (BREO ELLIPTA) 100-25 MCG/ACT inhaler Indications:Mild intermittent asthma without complicationInhale 1 puff into the lungs daily. 28 each hydrOXYzine HCl (ATARAX) 25 MG tablet Indications:PTSD (post-traumatic stress disorder)Take 1 tablet (25 mg) by mouth 2 times daily as needed for anxiety or itching. 60 tablet prazosin (MINIPRESS) 1 MG capsule Indications:PTSD (post-traumatic stress disorder)Take 1 capsule (1 mg) by mouth 3 times daily as needed (hypervigilance). 90 capsule documented as of this encounter Miscellaneous Notes * Brief Op Note - Cynthia Hartman MD - 03/23/2025 12:17 PM CST [facility] Brief Operative Note Pre-operative diagnosis: Gender dysphoria in adult [F64.0] Post-operative diagnosis Same as pre-operative diagnosis Procedure: MASTECTOMY, BILATERAL, SIMPLE, NO nipple grafts. OnQ, Bilateral - Breast Surgeon: Surgeons and Role: * Kenya Jennings MD - Primary * Tracy Brooks PA-C - Resident - Assisting * Cynthia Hartman MD - Resident - Assisting Anesthesia: General Estimated Blood Loss: 100 ml UOP 375 ml mIVF 1700 ml Drains: Ward-Rodriguez and On-Q pump Specimens: ID Type Source Tests Collected by Time Destination 1 : Left Breast Tissue Tissue Breast, Left SURGICAL PATHOLOGY EXAM Kenya Jennings MD 03/23/2025 9:38 AM 2 : Right Breast Tissue Tissue Breast, Right SURGICAL PATHOLOGY EXAM Kenya Jennings MD 03/23/2025 9:39 AM 3 : Left Breast Tissue Tissue Breast, Left SURGICAL PATHOLOGY EXAM Kenya Jennings MD 03/23/2025 10:14 AM 4 : Right Breast Tissue Tissue Breast, Right SURGICAL PATHOLOGY EXAM Kenya Jennings MD 03/23/2025 10:14 AM Findings: R breast = 1186 g; L Breast = 1089 g. Complications: None. Implants: * No implants in log * Cynthia Arredondo MD Plastic Surgery Resident, PGY-2 RITY OFFICER * Op Note - Kenya Jennings MD - 03/23/2025 8:56 AM CST Images from the original note were not included. OPERATIVE NOTE DATE OF PROCEDURE: 03/23 ATTENDING: Michaela RODRIGUEZ SURGEON: cynthia Arredondo MD PGY2 CHANCERY CLERK: Tracy Brooks PA-C (MADIE did 50% of case while Dr Arredondo assisted Dr Jennings) PREOP DIAGNOSIS: Gender dysphoria POSTOP DIAGNOSIS: Same PROCEDURE: Bilateral simple mastectomy with NO nipple graft reconstruction. On-Q catheter placement. ANESTHESIA: GETA EBL: 100 cc IV FLUIDS: 1700 cc URINE OUTPUT: 375 cc COUNTS: Correct COMPLICATIONS: None DRAINS: TERESO x2 SPECIMENS: Right breast 1186 g, left breast 1089 g. INDICATIONS: This is a 59 year old biologic female with a diagnosis of gender dysphoria who met [facility]PATH and insurance criteria for gender affirming top surgery. Due to breast hypertrophy and ptosis, they would require a double incision approach to their mastectomy. They did NOT desire nipple graft reconstruction. Of note, this patient has a history of Gorlin Syndrome. PROCEDURE: The patient was seen in the preoperative waiting area. The operative sites were marked. This included the sternal notch, sternal midline, inframammary folds with possible extension laterally, vertical line through the nipple areolar complex, vertical lines at the medial and lateral borders of the breast footplate, transverse line at the mid humerus level, and transverse line at the inferior origin of the pectoralis major muscle on flexion. Informed consent was obtained after reviewing the possible risks and complications including but not limited to the following: Infection, bleeding, hematoma/seroma formation, poor healing, spitting sutures, dehiscence, hypertrophic scarring, partial or complete loss of nipple grafts, fat necrosis, injury to surrounding musculoskeletal or neurovascular structures- including intrathoracic or intra-axillary structures, residual asymmetries or deformities, altered sensation of the chest wall-eitherhypo or hyper-sensitivity, need for further surgery, and anesthetic risks such as DVT, PE, cardiopulmonary arrest. The patient was brought to the operating room on a stretcher and transferred to the OR table in a supine position. After general anesthesia was administered and the patient was intubated with ETT, a Shrestha was placed. The patient already had sequential compression devices on their lower extremities prior to induction. Thighs and forelegs were supported on pillows and secured with padded safety straps. A lower Crystal hugger was placed. Arms were secured to arm boards at 90 degrees from the table using 6 inch Marin wraps and padding. The patient was then put into a sitting position on the OR table and adjustments were made as necessary to gain symmetry of the chest breast area. The chest breast was then prepped with the usual ChloraPrep and draped in the usual sterile fashion. A timeout was taken and the proper patient and procedure were identified. We made our inframammary fold incisions with scalpel and traditional ValleyLab cautery on the left and scalpel with Peak PlasmaBlade cautery on the right. We left approximately 2 to 3 cm of subcutaneous fat along the IMF incision before beveling down to the pectoral fascia. The breast mound was elevated off the pec fascia superiorly towards the clavicle, medially towards the parasternal border, and laterally past the lateral border of the pectoralis major muscle. This allowed us to displace thebreast mound inferiorly and kiko where it overlapped with the IMF incision. This was just slightly lower than our preop markings, allowing for any necessary adjustments to shape and level of incision. Since this patient was NOT interested in nipple grafting, the nipple areolar complexes were NOT harvested. We then amputated the breast mound. Additional thinning of the superior skin flap was done based ontheir body habitus. In an effort to gain better symmetry with regard to contour, flap thickness wasadjusted to camouflage any significant asymmetries such as prominent ribs or musculature. This patient had a very slanted pec contour. Once we were happy with our original resection, our incisions were temporarily skin stapled and the patient put into a sitting position. This allowed us to make further adjustments with regard to the level and shape of the IMF incision. These additional areas werethen resected and added to the path specimens which were passed off the back table and weighed before sending to pathology for permanent histologic exam. Once we were happy with symmetry of contour and incisions, including elimination of any dogears medially or laterally, we then irrigated the dissection pocket with antibiotic saline solution. #15 round channel drains were introduced through a separate stab wound incision laterally and secured with 3-0 nylon suture. This was draped along the inferior pocket. Dual 10 inch On-Q catheters were percutaneously introduced from the epigastric region and draped along the superior area of the dissection pocket. These were secured with benzoin and Tegaderm. Definitive closure was then achieved with 2-0 Vicryl deep sutures between the breast capsule and the upper abdominal fascia. Additional 2-0 and 3-0 Vicryl buried sutures were used for deep dermal closure. 4-0 Vicryl was used for running subcuticular suture. 5-0 fast-absorbing gut was used to touch up any areas of the skin closure. Once we were happy with the appearance of the chest, we then applied Dermabond Prineo along the incisions. TERESO drain tubing was trimmed and put to bulb suction. ABD pads were used for drain sponges. Acouple 6 inch Kerlix rolls were unfurled across the anterior chest for padding. The thorax was thencircumferentially wrapped with a double long 6 inch Marin wrap for compression. The Shrestha was discontinued and the patient was extubated. They were transferred to a stretcher. The On-Q catheters were attached to the reservoir containing 550 cc of 0.2% ropivacaine to be delivered at 2 cc/h per catheter for the next 5 days. The patient was then taken to the recovery room in satisfactory condition having tolerated the procedure without difficulty and complication. Final weights as measured in the ORwere right breast equals 1186 g and left breast equals 1089 g. RITY OFFICER documented in this encounter Plan of Treatment DateTypeDepartmentCare Team (Latest Contact Info)Jlxzmojwtam43/29/2025 4:00 PM CSTOffice Visit [facility] [address] [place] [address] Kenya Jennings MD [address] [place] [id number] 05/20/2025 1:00 PM CSTOffice Visit [facility] [address] [place] [phone] Racheal Ng MD [address] [facility] [address] [place], [place] [address] 05/25/2025 10:40 AM CSTOffice Visit [facility] Mental [facility] & Addiction [address] [phone] Yael Reaves MD [facility] [place], [place] [id number] 08/17/2025 12:15 PM CDTOffice Visit [facility] D[facility]atology Clinic [address] [place] [phone] Herber Lopez MD [address] [facility] [address] [place], [place] [address] 01/14/2026 1:40 PM CDTAncillary Procedure [facility] [address] [place] [phone] Yudy Pompa MD [address] [place] [id number] 01/18/2026 1:20 PM CDTOncology Visit [facility] [address] [place] [address] [phone] Yudy Pompa MD [address] [place] [address] [id number] documented as of this encounter Procedures Procedure NamePriorityDate/TimeAssociated DiagnosisCommentsSURGICAL PATHOLOGY SLBYJtyphsn50/18/2025 9:38 AM SECURITY OFFICER MASTECTOMY, SIMPLE, ZSYYFSFH15/18/2025 8:05 AM SECURITY OFFICER Gender dysphoria in adult Special Needs SARINA Lara documented in this encounter Results * Surgical Pathology Exam (03/23/2025 9:38 AM SECURITY OFFICER)ComponentValueRef RangeTest MethodAnalysis TimePerformed AtPathologist SignatureCase ReportSurgical Pathology Report ? Case: [id number] ? Authorizing Provider: ??Kenya Jennings MD ??Collected: ? 03/23/2025 09:38 AM ? Ordering Location: ? [facility] ? Received: ?03/23/2025 10:03 AM ? Pathologist: ? Mari Nava MD ? Specimens: ?? A) - Breast, Left, Left Breast Tissue ? B) - Breast, Right, Right Breast Tissue ? 03/25/2025 11:02 AM [facility] LABSFinal DiagnosisA. LEFT breast, simple mastectomy: - Benign breast tissue with fibrocystic change (including microcysts) - Benign nipple and skin - Negative for atypia and malignancy B. RIGHT breast, simple mastectomy: - Benign breast tissue with fibrocystic change (including microcysts) and usual ductal hyperplasia - Benign nipple and skin - Negative for atypia and bjapypmcjf88/20/2025 11:02 AM [facility] at 1102 SECURITY OFFICER Clinical InformationThe patient is a 59 year old presenting for bilateral simple mastectomy.03/25/2025 11:02 AM [facility] LABORATORYGross DescriptionA(1). Breast, Left, Left Breast Tissue: The specimen is received fresh in 2 containers with proper patient identification labeled left breast tissue. The specimen consists of a 1078.7 g, 18.1 x 14.1 x 6.2 cm aggregate of yellow-lares fibroadipose tissue and skin (18.1 cm in greatest dimension with a 1.0 x 1.0 cm everted nipple). The cut s urface is composed of 40% fibrous to 70% adipose tissue with no cysts or masses identified. Attenuator sections are submitted in cassettes A1-A2. The specimen is collected at 9:38 AM, received in the pathology lab at 9:55 AM, then sectioned and placed in formalin at 10:17 AM on 03/23/2025. B(2). Breast, Right, Right Breast Tissue: The specimen is received fresh in 2 containers with proper patient identification labeled right breast tissue. The specimen consists of an 1185.6 g, 20.1 x 18.5 x 7.1 cm aggregate of yellow-lares fibroadipose tissue and skin (18.5 cm in greatest dimension with a 2.1 x 1.5 x 1.5 cm everted nipple). The cut surface is composed of 50% fibrous to 50% adipose tissue with no cysts or masses identified.Attenuator sections are submitted in cassettes B1-B2. The specimen is collected at 9:39 AM, received in the pathology lab at 9:55 AM, then sectioned and placed in formalin at 10:09 AM on 03/23/2025.03/25/2025 11:02 AM [facility] LABORATORYMicroscopic DescriptionMicroscopic examination is performed. 03/25/2025 11:02 AM [facility] LABORATORYPerforming LabsThe technical component of this testing was completed at [facility]. Stain controls for all stains resulted within this report have been reviewed and show appropriate reactivity.03/25/2025 11:02 AM [facility] LABORATORYCase Images 03/25/2025 11:02 AM [facility] LABSSpecimen (Source)Anatomical Location / LateralityCollection Method / VolumeCollection TimeReceived TimeTissueLEFT BREAST STRUCTURE / Hnpmajt7103/23/2025 9:38 AM CST03/23/2025 10:03 AM CSTTissue specimen (specimen)RIGHT BREAST STRUCTURE / Ulaousi4103/23/2025 9:39 AM SECURITY OFFICER 03/23/2025 10:03 AM SECURITY OFFICER Narrative Authorizing ProviderResult TypeResult StatusMarie Hope CABRERA APFinal ResultPerforming OrganizationAddressCity/State/ZIP CodePhone Number SPECIALTY LABS Specialty Lab [address] [facility] [address], [address] [place] [address], [facility] [address] [facility] [place] [address], [facility] documented in this encounter Visit Diagnoses Diagnosis Gender dysphoria- Primary documented in this encounter Administered Medications Medication OrderMAR ActionAction DateDoseRateSite dexAMETHasone (DECADRON) injection 4 mg 4 mg, Intravenous, ONCE PRN, nausea/vomiting - 2nd line, PACU, Administer over 1 Minutes, Starting on e 03/23/25 at 1237, For 1 dose, Administer ONLY if dexamethasone (DECADRON) NOT given in the OR. This is Step 2 of nausea and vomiting management. IF nausea vomiting NOT resolved within 30 minutes or dexamethasone (DECADRON) was given in the OR go to Step 3 prochlorperazine (COMPAZINE)., PACU dexAMETHasone (DECADRON) injection 4 mg 4 mg, Intravenous, ONCE PRN, nausea/vomiting - 2nd line, Phase II, Administer over 1 Minutes, Starting on e 03/23/25 at 1237, For 1 dose, Administer ONLY if dexamethasone (DECADRON) NOT given in the OR. This is Step 2 of nausea and vomiting management. IF nausea vomiting NOT resolved within 30 minutes or dexamethasone (DECADRON) was given in the OR go to Step 3 prochlorperazine (COMPAZINE)., Phase ll HYDROmorphone (PF) (DILAUDID) injection 0.2 mg 0.2 mg, Intravenous, EVERY 10 MIN PRN, moderate pain, Starting on Sat03/23/25 at 1237, Use FentaNYL (SUBLIMAZE) first if ordered. Maximum total cumulative dose NOT to exceed 2 mg. DO NOT revert backto fentanyl (SUBLIMAZE) after administering HYDROmorphone (DILAUDID). Notify Provider to assess for uncontrolled pain or analgesic side effects., PACU $Given03/23/2025 1:19 PM CST0.2 mg$Given03/23/2025 1:07 PM CST0.2 mg HYDROmorphone (PF) (DILAUDID) injection 0.4 mg 0.4 mg, Intravenous, EVERY 10 MIN PRN, severe pain, Starting on Sat03/23/25 at 1237, Use FentaNYL (SUBLIMAZE) first if ordered. Maximum total cumulative dose NOT to exceed 2 mg. DO NOT revert back to fentanyl (SUBLIMAZE) after administering HYDROmorphone (DILAUDID). Notify Provider to assess for un controlled pain or analgesic side effects., PACU lactated ringers infusion at 100 mL/hr, Intravenous, CONTINUOUS, Continue until IV catheter is weaned, PACU, Starting on Sat03/23/25 at 1300, Until Sat03/23/25 at 1718 naloxone (NARCAN) injection 0.04 mg 0.04 mg, Intravenous, EVERY 2 MIN PRN, opioid reversal, Starting on Sat03/23/25 at 1237, Notify Anesthesia Provider when administering naloxone (NARCAN) for unintended sedation or respiratory depression IF all three of the following criteria are met: 1. Respiratory rate LESS than or EQUAL to 8. 2.SaO2 is LESS than 92% and/or end-tidal CO2 is GREATER than 50. 3. Patient is receiving an opioid, has unintended sedation assessed as RASS (-3) moderate sedation. Notify Anesthesia Provider PRIOR to administering additional opioids if naloxone (NARCAN) given. Once patient has demonstrated a response to naloxone (NARCAN), continue to monitor respiratory rate, depth, oxygen saturation EVERY 15 minutes x 2, then EVERY 30 minutes x 2, then EVERY hour x 1 after each naloxone (NARCAN) dose. Monitor in Phase II for 2 hours after last naloxone (NARCAN) dose PRIOR to discharge., PACU naloxone (NARCAN) injection 0.04 mg 0.04 mg, Intravenous, EVERY 2 MIN PRN, opioid reversal, Starting on Sat03/23/25 at 1237, Notify Anesthesia Provider when administering naloxone (NARCAN) for unintended sedation or respiratory depression IF all three of the following criteria are met: 1. Respiratory rate LESS than or EQUAL to 8. 2.SaO2 is LESS than 92% and/or end-tidal CO2 is GREATER than 50. 3. Patient is receiving an opioid, has unintended sedation assessed as RASS (-3) moderate sedation. Notify Anesthesia Provider PRIOR to administering additional opioids if naloxone (NARCAN) given. Once patient has demonstrated a response to naloxone (NARCAN), continue to monitor respiratory rate, depth, oxygen saturation EVERY 15 minutes x 2, then EVERY 30 minutes x 2, then EVERY hour x 1 after each naloxone (NARCAN) dose. Monitor in Phase II for 2 hours after last naloxone (NARCAN) dose PRIOR to discharge., Phase ll naloxone (NARCAN) injection 0.08 mg 0.08 mg, Intravenous, EVERY 2 MIN PRN, opioid reversal, Starting on Sat03/23/25 at 1237, Notify Anesthesia Provider when administering naloxone (NARCAN) for unintended sedation or respiratory depression IF all three of the following criteria are met: 1. Respiratory rate LESS than or EQUAL to 8. 2.SaO2 is LESS than 92% and/or end-tidal CO2 is GREATER than 50. 3. Patient is receiving an opioid, has unintended sedation assessed as RASS (-4) or (-5) moderate sedation. Notify Anesthesia Provider PRIOR to administering additional opioids if naloxone (NARCAN) given. Once patient has demonstrated aresponse to naloxone (NARCAN), continue to monitor respiratory rate, depth, oxygen saturation EVERY15 minutes x 2, then EVERY 30 minutes x 2, then EVERY hour x 1 after each naloxone (NARCAN) dose. Monitor in Phase II for 2 hours after last naloxone (NARCAN) dose PRIOR to discharge., PACU naloxone (NARCAN) injection 0.08 mg 0.08 mg, Intravenous, EVERY 2 MIN PRN, opioid reversal, Starting on Sat03/23/25 at 1237, Notify Anesthesia Provider when administering naloxone (NARCAN) for unintended sedation or respiratory depression IF all three of the following criteria are met: 1. Respiratory rate LESS than or EQUAL to 8. 2.SaO2 is LESS than 92% and/or end-tidal CO2 is GREATER than 50. 3. Patient is receiving an opioid, has unintended sedation assessed as RASS (-4) or (-5) moderate sedation. Notify Anesthesia Provider PRIOR to administering additional opioids if naloxone (NARCAN) given. Once patient has demonstrated aresponse to naloxone (NARCAN), continue to monitor respiratory rate, depth, oxygen saturation EVERY15 minutes x 2, then EVERY 30 minutes x 2, then EVERY hour x 1 after each naloxone (NARCAN) dose. Monitor in Phase II for 2 hours after last naloxone (NARCAN) dose PRIOR to discharge., Phase ll ondansetron (ZOFRAN ODT) ODT tab 4 mg 4 mg, Oral, EVERY 30 MIN PRN, nausea/vomiting - 1st line, PACU, Starting on Sat03/23/25 at 1237, For 2 doses, Administer if NO vascular access present. This is Step 1 of nausea and vomiting management. If nausea/vomiting not resolved in 15 minutes, go to Step 2 dexamethasone (DECADRON) IV. MAX total dose = 8 mg, including OR dosing. With dry hands, peel back foil backing and gently remove tablet. Do not push oral disintegrating tablet through foil backing. Administer immediately on tongue and oral disintegrating tablet dissolves in seconds, then swallow with saliva. Liquid not required., PACU ondansetron (ZOFRAN) injection 4 mg 4 mg, Intravenous, EVERY 30 MIN PRN, nausea/vomiting - 1st line, PACU, Administer over 2-5 Minutes,Starting on Sat03/23/25 at 1237, For 2 doses, This is Step 1 of nausea and vomiting management. Ifnausea/vomiting not resolved in 15 minutes, then go to Step 2 dexamethasone (DECADRON) IV. MAX total dose = 8 mg, including OR dosing., PACU oxyCODONE (ROXICODONE) tablet 5 mg 5 mg, Oral, ONCE PRN, moderate pain, other, or is unable to participate in post op recovery due to pain., Starting on Sat03/23/25 at 1237, For 1 dose, Max: 5 mg for opioid-na??ve patient., Phase ll $Given03/23/2025 2:07 PM CST5 mg oxyCODONE IR (ROXICODONE) tablet 10 mg 10 mg, Oral, ONCE PRN, severe pain, Starting on Sat03/23/25 at 1237, For 1 dose, Max: 5 mg for opioid-na??ve patient. Use caution with patient Age GREATER than 65 years, COPD, or CrCl LESS than 50 mL/min., Phase ll prochlorperazine (COMPAZINE) injection 5 mg 5 mg, Intravenous, EVERY 6 HOURS PRN, nausea/vomiting - 3rd line, PACU, Administer over 1-2 Minutes, Starting on Sat03/23/25 at 1237, This is Step 3 of the nausea and vomiting protocol. If nausea/vomiting not resolved in 15-30 minutes, notify Provider., PACU prochlorperazine (COMPAZINE) injection 5 mg 5 mg, Intravenous, EVERY 6 HOURS PRN, nausea/vomiting - 3rd line, Phase II, Administer over 1-2 Minutes, Starting on Sat03/23/25 at 1237, This is Step 3 of the nausea and vomiting protocol. If nausea/vomiting not resolved in 15-30 minutes, notify Provider., Phase ll ROPivacaine 0.2% (NAROPIN) 550 mL in ON-Q 4 mL/hr ([id number] holds 400-500 mL) 10 dual cath disposable pump at 4 mL/hr, CONTINUOUS, Starting on Sat03/23/25 at 0730, ROUTE = Wound Site. Medication is delivered through a catheter that has been placed by the surgeon into the wound site., Intra-procedure $New Bag03/23/2025 12:39 PM CST4 mL/hrdocumented in this encounter Active and Recently Administered Medications Times are shown in SECURITY OFFICER.Medication Order/ ceFAZolin Sodium (ANCEF) injection 3 g (COMPLETED) Routine, 3 g, Intravenous, PRE-OP/PRE-PROCEDURE, Starting on Sat03/23/25 at 0638, For 1 dose, Givefirst dose within 1 hour PRIOR to incision., Indications: Perioperative Pharmacoprophylaxis, Pre-procedure * 0822 ($Given - Provider: Kaelyn Juarez APRN CRNA) fosaprepitant (EMEND) 150 mg in sodium chloride 0.9 % 275 mL intermittent infusion (COMPLETED) 150 mg, Intravenous, ONCE, On Sat03/23/25 at 0800, For 1 dose, Administer over 20 Minutes, Intra-procedure * 0920 ($New Bag - Provider: Kaelyn Juarez APRN CRNA) tranexamic acid 1 g in 100 mL NS IV bag (premix) (COMPLETED) 1 g, Intravenous, ONCE, On Sat03/23/25 at 1130, For 1 dose, Each 1 gram to be infused over 10 minutes., Intra-procedure * 1119 ($Given - Provider: Kaelyn Juarez APRN CRNA) Medication Order/ lactated ringers infusion at 100 mL/hr, Intravenous, CONTINUOUS, Continue until IV catheter is weaned, PACU, Starting on Sat03/23/25 at 1300, Until Sat03/23/25 at 1718 * 1300 (Canceled Entry - Provider: Orders Generic Provider - Comment: Automatically canceled at discontinue of medication order) ROPivacaine 0.2% (NAROPIN) 550 mL in ON-Q 4 mL/hr ([id number] holds 400-500 mL) 10 dual cath disposable pump at 4 mL/hr, CONTINUOUS, Starting on Sat03/23/25 at 0730, ROUTE = Wound Site. Medication is delivered through a catheter that has been placed by the surgeon into the wound site., Intra-procedure * 1239 ($New Bag - Provider: Hanna Serrano RN) Medication Order/ BUPivacaine (MARCAINE) 0.25% preservative free injection (CANCELED) PRN, Starting on Sat03/23/25 at 1127, Intra-procedure * 1127 ($Given - Provider: Kenya Jennings MD - Comment: Primed each catheter with 2mL) ceFAZolin (ANCEF) 1g in 1000 mL NS irrigation bottle (CANCELED) PRN, Starting on Sat03/23/25 at 1128, Intra-procedure * 1128 ($Given - Provider: Kenya Jennings MD - Comment: Used PRN throughout case) dexAMETHasone (DECADRON) injection 4 mg 4 mg, Intravenous, ONCE PRN, nausea/vomiting - 2nd line, PACU, Administer over 1 Minutes, Starting on Sat03/23/25 at 1237, For 1 dose, Administer ONLY if dexamethasone (DECADRON) NOT given in the OR. This is Step 2 of nausea and vomiting management. IF nausea vomiting NOT resolved within 30 minutes or dexamethasone (DECADRON) was given in the OR go to Step 3 prochlorperazine (COMPAZINE)., PACU dexAMETHasone (DECADRON) injection 4 mg 4 mg, Intravenous, ONCE PRN, nausea/vomiting - 2nd line, Phase II, Administer over 1 Minutes, Starting on Sat03/23/25 at 1237, For 1 dose, Administer ONLY if dexamethasone (DECADRON) NOT given in the OR. This is Step 2 of nausea and vomiting management. IF nausea vomiting NOT resolved within 30 minutes or dexamethasone (DECADRON) was given in the OR go to Step 3 prochlorperazine (COMPAZINE)., Phase ll HYDROmorphone (PF) (DILAUDID) injection 0.2 mg 0.2 mg, Intravenous, EVERY 10 MIN PRN, moderate pain, Starting on Sat03/23/25 at 1237, Use FentaNYL (SUBLIMAZE) first if ordered. Maximum total cumulative dose NOT to exceed 2 mg. DO NOT revert backto fentanyl (SUBLIMAZE) after administering HYDROmorphone (DILAUDID). Notify Provider to assess for uncontrolled pain or analgesic side effects., PACU * 1307 ($Given - Provider: Tami Karimi RN) * 1319 ($Given - Provider: Tami Karimi RN) HYDROmorphone (PF) (DILAUDID) injection 0.4 mg 0.4 mg, Intravenous, EVERY 10 MIN PRN, severe pain, Starting on Sat03/23/25 at 1237, Use FentaNYL (SUBLIMAZE) first if ordered. Maximum total cumulative dose NOT to exceed 2 mg. DO NOT revert back to fentanyl (SUBLIMAZE) after administering HYDROmorphone (DILAUDID). Notify Provider to assess for un controlled pain or analgesic side effects., PACU naloxone (NARCAN) injection 0.04 mg(Linked Group 1) 0.04 mg, Intravenous, EVERY 2 MIN PRN, opioid reversal, Starting on Sat03/23/25 at 1237, Notify Anesthesia Provider when administering naloxone (NARCAN) for unintended sedation or respiratory depression IF all three of the following criteria are met: 1. Respiratory rate LESS than or EQUAL to 8. 2.SaO2 is LESS than 92% and/or end-tidal CO2 is GREATER than 50. 3. Patient is receiving an opioid, has unintended sedation assessed as RASS (-3) moderate sedation. Notify Anesthesia Provider PRIOR to administering additional opioids if naloxone (NARCAN) given. Once patient has demonstrated a response to naloxone (NARCAN), continue to monitor respiratory rate, depth, oxygen saturation EVERY 15 minutes x 2, then EVERY 30 minutes x 2, then EVERY hour x 1 after each naloxone (NARCAN) dose. Monitor in Phase II for 2 hours after last naloxone (NARCAN) dose PRIOR to discharge., PACU naloxone (NARCAN) injection 0.04 mg(Linked Group 2) 0.04 mg, Intravenous, EVERY 2 MIN PRN, opioid reversal, Starting on Sat03/23/25 at 1237, Notify Anesthesia Provider when administering naloxone (NARCAN) for unintended sedation or respiratory depression IF all three of the following criteria are met: 1. Respiratory rate LESS than or EQUAL to 8. 2.SaO2 is LESS than 92% and/or end-tidal CO2 is GREATER than 50. 3. Patient is receiving an opioid, has unintended sedation assessed as RASS (-3) moderate sedation. Notify Anesthesia Provider PRIOR to administering additional opioids if naloxone (NARCAN) given. Once patient has demonstrated a response to naloxone (NARCAN), continue to monitor respiratory rate, depth, oxygen saturation EVERY 15 minutes x 2, then EVERY 30 minutes x 2, then EVERY hour x 1 after each naloxone (NARCAN) dose. Monitor in Phase II for 2 hours after last naloxone (NARCAN) dose PRIOR to discharge., Phase ll naloxone (NARCAN) injection 0.08 mg(Linked Group 1) 0.08 mg, Intravenous, EVERY 2 MIN PRN, opioid reversal, Starting on Sat03/23/25 at 1237, Notify Anesthesia Provider when administering naloxone (NARCAN) for unintended sedation or respiratory depression IF all three of the following criteria are met: 1. Respiratory rate LESS than or EQUAL to 8. 2.SaO2 is LESS than 92% and/or end-tidal CO2 is GREATER than 50. 3. Patient is receiving an opioid, has unintended sedation assessed as RASS (-4) or (-5) moderate sedation. Notify Anesthesia Provider PRIOR to administering additional opioids if naloxone (NARCAN) given. Once patient has demonstrated aresponse to naloxone (NARCAN), continue to monitor respiratory rate, depth, oxygen saturation EVERY15 minutes x 2, then EVERY 30 minutes x 2, then EVERY hour x 1 after each naloxone (NARCAN) dose. Monitor in Phase II for 2 hours after last naloxone (NARCAN) dose PRIOR to discharge., PACU naloxone (NARCAN) injection 0.08 mg(Linked Group 2) 0.08 mg, Intravenous, EVERY 2 MIN PRN, opioid reversal, Starting on Sat03/23/25 at 1237, Notify Anesthesia Provider when administering naloxone (NARCAN) for unintended sedation or respiratory depression IF all three of the following criteria are met: 1. Respiratory rate LESS than or EQUAL to 8. 2.SaO2 is LESS than 92% and/or end-tidal CO2 is GREATER than 50. 3. Patient is receiving an opioid, has unintended sedation assessed as RASS (-4) or (-5) moderate sedation. Notify Anesthesia Provider PRIOR to administering additional opioids if naloxone (NARCAN) given. Once patient has demonstrated aresponse to naloxone (NARCAN), continue to monitor respiratory rate, depth, oxygen saturation EVERY15 minutes x 2, then EVERY 30 minutes x 2, then EVERY hour x 1 after each naloxone (NARCAN) dose. Monitor in Phase II for 2 hours after last naloxone (NARCAN) dose PRIOR to discharge., Phase ll ondansetron (ZOFRAN ODT) ODT tab 4 mg(Linked Group 3) 4 mg, Oral, EVERY 30 MIN PRN, nausea/vomiting - 1st line, PACU, Starting on Sat03/23/25 at 1237, For 2 doses, Administer if NO vascular access present. This is Step 1 of nausea and vomiting management. If nausea/vomiting not resolved in 15 minutes, go to Step 2 dexamethasone (DECADRON) IV. MAX total dose = 8 mg, including OR dosing. With dry hands, peel back foil backing and gently remove tablet. Do not push oral disintegrating tablet through foil backing. Administer immediately on tongue and oral disintegrating tablet dissolves in seconds, then swallow with saliva. Liquid not required., PACU ondansetron (ZOFRAN) injection 4 mg(Linked Group 3) 4 mg, Intravenous, EVERY 30 MIN PRN, nausea/vomiting - 1st line, PACU, Administer over 2-5 Minutes,Starting on Sat03/23/25 at 1237, For 2 doses, This is Step 1 of nausea and vomiting management. Ifnausea/vomiting not resolved in 15 minutes, then go to Step 2 dexamethasone (DECADRON) IV. MAX total dose = 8 mg, including OR dosing., PACU oxyCODONE (ROXICODONE) tablet 5 mg (COMPLETED) 5 mg, Oral, ONCE PRN, moderate pain, other, or is unable to participate in post op recovery due to pain., Starting on Sat03/23/25 at 1237, For 1 dose, Max: 5 mg for opioid-na??ve patient., Phase ll * 1407 ($Given - Provider: Tavares Valenzuela RN) oxyCODONE IR (ROXICODONE) tablet 10 mg 10 mg, Oral, ONCE PRN, severe pain, Starting on Sat03/23/25 at 1237, For 1 dose, Max: 5 mg for opioid-na??ve patient. Use caution with patient Age GREATER than 65 years, COPD, or CrCl LESS than 50 mL/min., Phase ll prochlorperazine (COMPAZINE) injection 5 mg 5 mg, Intravenous, EVERY 6 HOURS PRN, nausea/vomiting - 3rd line, PACU, Administer over 1-2 Minutes, Starting on Sat03/23/25 at 1237, This is Step 3 of the nausea and vomiting protocol. If nausea/vomiting not resolved in 15-30 minutes, notify Provider., PACU prochlorperazine (COMPAZINE) injection 5 mg 5 mg, Intravenous, EVERY 6 HOURS PRN, nausea/vomiting - 3rd line, Phase II, Administer over 1-2 Minutes, Starting on Sat03/23/25 at 1237, This is Step 3 of the nausea and vomiting protocol. If nausea/vomiting not resolved in 15-30 minutes, notify Provider., Phase ll Order Group 1: naloxone (NARCAN) injection 0.04 mgJump to med 0.04 mg, Intravenous, EVERY 2 MIN PRN, opioid reversal, Starting on Sat03/23/25 at 1237, Notify Anesthesia Provider when administering naloxone (NARCAN) for unintended sedation or respiratory depression IF all three of the following criteria are met: 1. Respiratory rate LESS than or EQUAL to 8. 2.SaO2 is LESS than 92% and/or end-tidal CO2 is GREATER than 50. 3. Patient is receiving an opioid, has unintended sedation assessed as RASS (-3) moderate sedation. Notify Anesthesia Provider PRIOR to administering additional opioids if naloxone (NARCAN) given. Once patient has demonstrated a response to naloxone (NARCAN), continue to monitor respiratory rate, depth, oxygen saturation EVERY 15 minutes x 2, then EVERY 30 minutes x 2, then EVERY hour x 1 after each naloxone (NARCAN) dose. Monitor in Phase II for 2 hours after last naloxone (NARCAN) dose PRIOR to discharge., PACU Or naloxone (NARCAN) injection 0.08 mgJump to med 0.08 mg, Intravenous, EVERY 2 MIN PRN, opioid reversal, Starting on Sat03/23/25 at 1237, Notify Anesthesia Provider when administering naloxone (NARCAN) for unintended sedation or respiratory depression IF all three of the following criteria are met: 1. Respiratory rate LESS than or EQUAL to 8. 2.SaO2 is LESS than 92% and/or end-tidal CO2 is GREATER than 50. 3. Patient is receiving an opioid, has unintended sedation assessed as RASS (-4) or (-5) moderate sedation. Notify Anesthesia Provider PRIOR to administering additional opioids if naloxone (NARCAN) given. Once patient has demonstrated aresponse to naloxone (NARCAN), continue to monitor respiratory rate, depth, oxygen saturation EVERY15 minutes x 2, then EVERY 30 minutes x 2, then EVERY hour x 1 after each naloxone (NARCAN) dose. Monitor in Phase II for 2 hours after last naloxone (NARCAN) dose PRIOR to discharge., PACU Group 2: naloxone (NARCAN) injection 0.04 mgJump to med 0.04 mg, Intravenous, EVERY 2 MIN PRN, opioid reversal, Starting on Sat03/23/25 at 1237, Notify Anesthesia Provider when administering naloxone (NARCAN) for unintended sedation or respiratory depression IF all three of the following criteria are met: 1. Respiratory rate LESS than or EQUAL to 8. 2.SaO2 is LESS than 92% and/or end-tidal CO2 is GREATER than 50. 3. Patient is receiving an opioid, has unintended sedation assessed as RASS (-3) moderate sedation. Notify Anesthesia Provider PRIOR to administering additional opioids if naloxone (NARCAN) given. Once patient has demonstrated a response to naloxone (NARCAN), continue to monitor respiratory rate, depth, oxygen saturation EVERY 15 minutes x 2, then EVERY 30 minutes x 2, then EVERY hour x 1 after each naloxone (NARCAN) dose. Monitor in Phase II for 2 hours after last naloxone (NARCAN) dose PRIOR to discharge., Phase ll Or naloxone (NARCAN) injection 0.08 mgJump to med 0.08 mg, Intravenous, EVERY 2 MIN PRN, opioid reversal, Starting on Sat03/23/25 at 1237, Notify Anesthesia Provider when administering naloxone (NARCAN) for unintended sedation or respiratory depression IF all three of the following criteria are met: 1. Respiratory rate LESS than or EQUAL to 8. 2.SaO2 is LESS than 92% and/or end-tidal CO2 is GREATER than 50. 3. Patient is receiving an opioid, has unintended sedation assessed as RASS (-4) or (-5) moderate sedation. Notify Anesthesia Provider PRIOR to administering additional opioids if naloxone (NARCAN) given. Once patient has demonstrated aresponse to naloxone (NARCAN), continue to monitor respiratory rate, depth, oxygen saturation EVERY15 minutes x 2, then EVERY 30 minutes x 2, then EVERY hour x 1 after each naloxone (NARCAN) dose. Monitor in Phase II for 2 hours after last naloxone (NARCAN) dose PRIOR to discharge., Phase ll Group 3: ondansetron (ZOFRAN ODT) ODT tab 4 mgJump to med 4 mg, Oral, EVERY 30 MIN PRN, nausea/vomiting - 1st line, PACU, Starting on Sat03/23/25 at 1237, For 2 doses, Administer if NO vascular access present. This is Step 1 of nausea and vomiting management. If nausea/vomiting not resolved in 15 minutes, go to Step 2 dexamethasone (DECADRON) IV. MAX total dose = 8 mg, including OR dosing. With dry hands, peel back foil backing and gently remove tablet. Do not push oral disintegrating tablet through foil backing. Administer immediately on tongue and oral disintegrating tablet dissolves in seconds, then swallow with saliva. Liquid not required., PACU Or ondansetron (ZOFRAN) injection 4 mgJump to med 4 mg, Intravenous, EVERY 30 MIN PRN, nausea/vomiting - 1st line, PACU, Administer over 2-5 Minutes,Starting on Sat03/23/25 at 1237, For 2 doses, This is Step 1 of nausea and vomiting management. Ifnausea/vomiting not resolved in 15 minutes, then go to Step 2 dexamethasone (DECADRON) IV. MAX total dose = 8 mg, including OR dosing., PACU documented in this encounter Additional Health Concerns AssessmentNoted TimePHQ-9 Depression Total Score: 10105/12/2024 11:51 AM SECURITY OFFICER documented as of this encounter Care Teams Team MemberRelationshipSpecialtyStart DateEnd Date Mamadou Bowie MD [address] [place] [address] 876405 PCP - Ffarqtw30/13/23 Cindy Ruiz [facility] [place] [address] ResidentInternal Medicine12/07/14 Trevor Espino MD [address] [place] [address] [phone] MDUrolog05/16/16 Jaci Whitlock APRN CNP [address] [place] [address] [address] [place], [place] [phone] Nurse Practitioner - Women's Health12/14/16 Doris Ricci MD [facility] [address] [place] [address] PhysicianInternal Medicine07/11/20 Yudy Pompa MD [address] [place] [address] Assigned Cancer Care Provider08/21/20 Mary Carmen Rodriguez MD [address] [place] [address] [address] [place], [place] [phone] MDDermatology11/09/20 Herber Lopez MD [address] [place], [place] [address] MDDermapathology11/09/20 Gloria Elizalde MD [address] [place] [address] [phone] Resident12/24/22 Mamadou Bowie MD [address] [place] [address] [phone] Assigned PCP03/23/23 Makenzie Romano MD [address] [place] [address] 130234 MDPsychiatry & Neurology - Child & Adolescent Psychiatry11/08/23 Shani Stephenson MD [address] [place] [address] 985105 ResidentPsychiatry11/08/23 Ita Newton Specialty Care Coordinator06/04/24 Kenya Jennings MD [address] [place] [address] 622925 MDPlastic Surgery06/04/24 Herber Lopez MD [address] [place] [address] [phone] Assigned Dermatology Provider07/26/24 Сергей Dumont, [facility] Social Worker08/13/24 Kenya Jennings MD [address] [place] [address] [phone] Assigned Surgical Provider08/26/24 Carmen Cole PA-C [address] [place] [address] Assigned Sleep Provider09/25/24 Jesse Arvizu MD [address] [place], [place] [phone] Assigned Behavioral Health Provider12/26/2510 Marita Chisholm, [facility] [address] [place], [place] [address] CnmylepcvpIesqqibckz13/22/25documented as of this encounter
--- OUTSIDE RECORDS SUMMARY | 2025-03-23 08:00 | XMS_ITS | Encounter Summary ---
Author Organization [facility] Address [address] [place] [address] Care Team Providers Care Sales And Customer Relations Rep Name Role Phone Cindy Ruiz Unavailable Trevor Espino MD Unavailable [phone] Jaci Whitlock APRN CLINICAL RESEARCH COORDINATOR Unavailable + Doris Ricci MD Unavailable Yudy Pompa MD Unavailable [phone] Mary Carmen Rodriguez MD Unavailable + Herber Lopez MD Unavailable [phone] Gloria Elizalde MD Unavailable [phone] Mamadou Bowie MD Primary Care Provider [phone] Mamadou Bowie MD Unavailable Makenzie Romano MD Unavailable [phone] Shani Stephenson MD Unavailable [phone] Ita Newton Unavailable Unavailable Kenya Jennings MD Unavailable Herber Lopez MD Unavailable [phone] Сергей Dumont [facility] Unavailable Unavailable Kenya Jennings MD Unavailable [phone] Carmen Cole PA-C Unavailable [phone] Jesse Arvizu MD Unavailable Marita Chisholm [facility] Unavailable [phone] Reason for Visit * Auth/CertSpecialtyDiagnoses / ProceduresReferred By ContactReferred To Contact Surgery Diagnoses Gender dysphoria in adult Gender dysphoria in adult [F64.0] Procedures [place] MASTECTOMY, SIMPLE, COMPLETE MASTECTOMY, BILATERAL, SIMPLE, NO nipple grafts. OnQ [facility] [address] [place] [phone] Phone: tel: fax: Referral IDStatusReasonStart DateExpiration DateVisits RequestedVisits [id number] Encounter Details DateTypeDepartmentCare Team (Latest Contact Info)Nzdacowydks24/18/2025 8:00 AM WINTERIZER - 03/23/2025 12:05 PM CSTSurgery [facility] [address] [place] [phone] Kenya Jennings MD [address] [phone] MASTECTOMY, BILATERAL, SIMPLE, NO nipple grafts. OnQ Surgery Details Date/TimeStatusLocationORServicePatient ClassCase ClassCase TypeTrauma Case? 03/23/2025 8:00 AMPostedUR ORUR OR 11Plastics & ReconstructionSame Day Surgery ElectivePanel 1 ProcedureLRBAnes RegionWound ClassCommentsMASTECTOMY, BILATERAL, SIMPLE, NO nipple grafts. OnQBilateralGeneralBreastI-Clean SurgeonSurgeon RoleServicePanelKenya Jennings, MDPrimaryPlastics & Ehgyeocxrnhctn7Khdbqdgn, Laura, PA-CResident - AssistingAssistant Authorization1 Cynthia Hartman MDResimoreliat - Assisting1 Special Needs SARINA Lara documented in this encounter Social History Tobacco UseTypesPacks/DayYears UsedDateSmoking Tobacco: NeverPassive Smoke Exposure: NeverSmokeless Tobacco: NeverAlcohol UseStandard Drinks/WeekComments Not Currently0 (1 standard drink = 0.6 oz pure alcohol)1 drink every couple of weeksSocial Connection and Isolation PanelAnswerDate RecordedFrequency of Communication with Friends and FamilyNot on file04/02/2024How often do you get together with friends or relatives?Three times a week04/02/2024ttends Synagogue ServicesNot on file04/02/2024ctive Member of Clubs or OrganizationsNot on file 04/02/2024ttends Club or Organization MeetingsNot on file04/02/2024Marital StatusNot on file04/02/2024HQ-2AnswerDate RecordedPHQ-2 Xanmu50505/19/2024[facility] Occupational Health - Occupational Stress QuestionnaireAnswerDate RecordedDo you feel stress - tense, restless, nervous, or anxious, or unable to sleep at night because yourmind is troubled all the time - these days?Only a kklmjy6804/02/2024Exercise Vital SignAnswerDate RecordedOn average, how many days [...] in an abandoned building, in an overnight half-way, or couch-surfing.)Yes12/20/2024re you worried about losing your [...] ex-partner?No03/23/2025CommentsNoSex and Gender InformationValueDate RecordedSex Assigned at BlqxfStoyrq42/12/2021 10:33 PM CDTLegal SexFemale 03/09/2012 3:58 AM CSTGender Xejirmwffecbe57/12/2021 10:33 PM CDTSexual PzdohybaketUjyokvz27/17/2020 4:20 AM CSTdocumented as of this encounter Last Filed Vital Signs Vital SignReadingTime TakenCommentsBlood Zlxoctvw718/7203/23/2025 6:46 AM WINTERIZER Hqcai291903/23/2025 6:46 AM QGLKefvzoimuxb13.7 ??C (98 ??F)03/23/2025 6:46 AM WINTERIZER Respiratory Kbph714705/23/2024 6:46 AM CSTOxygen Eiyojmobtm32%03/23/2025 6:46 AM CSTInhaled Oxygen Concentration--Xemcol044.1 kg (282 lb 6.6 oz)03/23/2025 6:46 AM OEDYyfvlq339.5 cm (5' 9.49)03/23/2025 6:46 AM CSTBody Mass Index41.12 03/23/2025 6:46 AM CSTdocumented in this encounter Functional Status * Calculated C-SSRS Risk Score (Lifetime/Recent)AnswerDate of AssessmentAuthor Moderate Risk03/23/2025 7:10 AM Gloria Rivers RN * [place] Suicide Severity Rating Scale (Screener/Recent Self-Report)Question AnswerDate [...] Tavares Valenzuela RN - 03/23/2025 12:53 PM WINTERIZER To contact a doctor, call Janay Jensen's office at [phone] at the [facility] from 8 am till 5 pm or: [phone] and ask for the Resident Pl Sql Developer for: Plastics (answered 24 hours a day) Emergency Departments: [facility] Adult Emergency Department: [phone] ON-Q?? Continuous Pain Pump Discharge Instructions after [...] Dr. Jennings's plastic surgery clinic RN at [phone] or main office [phone] After hours and weekends: [phone] and ask for the Resident Pl Sql Developer for Plastic Surgeon Caring for your Ward-Rodriguez [...] Amount of drainage (ml or cc) Notes ERIZER ERIZER * Attachments The following attachments cannot be sent through Care Everywhere. * (s) After Anesthesia (Sleep Medicine) ([place]) documented in this encounter Medications at Time [...] Hartman MD - 03/23/2025 12:17 PM CST [facility] Brief Operative Note Pre-operative diagnosis: Gender dysphoria [...] Cynthia Arredondo MD Plastic Surgery Resident, PGY-2 ERIZER * Op Note - Kenya Jennings MD - 03/23/2025 8:56 AM CST Images from the original note were not included. OPERATIVE NOTE DATE OF PROCEDURE: 03/23 ATTENDING: Michaela RODRIGUEZ SURGEON: cynthia Arredondo MD PGY2 CERTIFIED NURSE: Tracy Brooks PA-C (MADIE did 50% of [...] g and left breast equals 1089 g. ERIZER documented in this encounter Plan of Treatment DateTypeDepartmentCare Team (Latest Contact Info)Bxcaojxrbmm11/29/2025 4:00 PM CSTOffice Visit [facility] [address] 4[address] [place] [phone] Kenya Jennings MD 420 [facility] [address] [place], [place] [address] 05/20/2025 1:00 PM CSTOffice Visit [facility] [address] [facility] [address] [place] [address] Racheal Ng MD [address] [facility] [address] [place], [place] [address] 05/25/2025 10:40 AM CSTOffice Visit [facility] [address] [address] Yael Reaves MD [facility]0 [place], [place] [address] 08/17/2025 12:15 PM CDTOffice Visit [facility] [address] [place] [phone] Herber Lopez MD 420 [facility] [address] [place], [place] [address]395 01/14/2026 1:40 PM CDTAncillary Procedure [facility] [address] 1[address] [place] [phone] Yudy Pompa MD [address] [place] [address] 413365 01/18/2026 1:20 PM CDTOncology Visit [facility] [address] [place] [phone] Yudy Pompa MD [address] [place] [address] documented as of this encounter Procedures Procedure NamePriorityDate/TimeAssociated DiagnosisCommentsSURGICAL PATHOLOGY LDWKQakgcvw07/18/2025 9:38 AM WINTERIZER MASTECTOMY, SIMPLE, ZNOADIVW18/18/2025 8:05 AM WINTERIZER Gender dysphoria in adult Special Needs SARINA Lara documented in this encounter Results * Surgical Pathology Exam (03/23/2025 9:38 AM WINTERIZER)ComponentValueRef RangeTest MethodAnalysis TimePerformed AtPathologist SignatureCase ReportSurgical Pathology Report ? Case: [id number] ? Authorizing Provider: ??Kenya Jennings MD ??Collected: [...] and skin - Negative for atypia and ctuxzixxcl30/20/2025 11:02 AM CSTUM [facility] at 1102 WINTERIZER Clinical InformationThe patient is a 59 year [...] tissue with no cysts or masses identified. Last Trimmer sections are submitted in cassettes A1-A2. The [...] adipose tissue with no cysts or masses identified.Last Trimmer sections are submitted in cassettes B1-B2. The specimen is collected at 9:39 AM, received in the pathology lab at 9:55 AM, then sectioned and placed in formalin at 10:09 AM on 03/23/2025.03/25/2025 11:02 AM CSTUR LABORATORYMicroscopic DescriptionMicroscopic examination is performed. 03/25/2025 11:02 AM CSTUR LABORATORYPerforming LabsThe technical component of this testing was completed at [facility]. Stain controls for all stains resulted within this report have been reviewed and show appropriate reactivity.03/25/2025 11:02 AM CSTUR LABORATORYCase Images 03/25/2025 11:02 AM CSTUM SPECIALTY LABSSpecimen (Source)Anatomical Location / LateralityCollection Method / VolumeCollection TimeReceived TimeTissueLEFT BREAST STRUCTURE / Jlerxzg1903/23/2025 9:38 AM CST03/23/2025 10:03 AM CSTTissue specimen (specimen)RIGHT BREAST STRUCTURE / Ricibxc8403/23/2025 9:39 AM WINTERIZER 03/23/2025 10:03 AM WINTERIZER Narrative Authorizing ProviderResult TypeResult StatusKenya CABRERA APFinal ResultPerforming OrganizationAddressCity/State/ZIP CodePhone Number SPECIALTY LABS Specialty Lab [address] [facility], [address] [place] [address], [facility] Acute Care Lab [address] [facility], [address] [place] [address] documented in this encounter Visit Diagnoses Diagnosis Gender dysphoria- Primary Gender dysphoria in adult documented in this encounter Administered Medications Medication OrderMAR ActionAction DateDoseRateSite BUPivacaine (MARCAINE) 0.25% preservative free injection PRN, Starting on Sat03/23/25 at 1127, Intra-procedure $Given03/23/2025 11:27 AM CST4 mLsOperative Site/Surgical Site ceFAZolin (ANCEF) 1g in 1000 mL NS irrigation bottle PRN, Starting on Sat03/23/25 at 1128, Intra-procedure $Given03/23/2025 11:28 AM CST1 gOperative Site/Surgical Site dexAMETHasone (DECADRON) injection 4 mg 4 mg, [...] (NAROPIN) 550 mL in ON-Q 4 mL/hr (VF363-C holds 400-500 mL) 10 dual cath disposable pump at 4 mL/hr, CONTINUOUS, Starting on Sat03/23/25 at 0730, ROUTE = Wound Site. Medication is delivered through a catheter that has been placed by the surgeon into the wound site., Intra-procedure $New Bag03/23/2025 12:39 PM CST4 mL/hrdocumented in this encounter Active and Recently Administered Medications Times are shown in WINTERIZER.Medication Order/ ceFAZolin Sodium (ANCEF) injection 3 g [...] (NAROPIN) 550 mL in ON-Q 4 mL/hr (YK168-R holds 400-500 mL) 10 dual cath disposable pump at 4 mL/hr, CONTINUOUS, Starting on Sat03/23/25 at 0730, ROUTE = Wound Site. Medication is delivered through a catheter that has been placed by the surgeon into the wound site., Intra-procedure * 1239 ($New Bag - Provider: Hanna Serrano RN) Medication Order// BUPivacaine (MARCAINE) 0.25% preservative free injection (CANCELED) [...] Health Concerns AssessmentNoted TimePHQ-9 Depression Total Score: 11:51 AM WINTERIZER documented as of this encounter Care Teams Team MemberRelationshipSpecialtyStart DateEnd Date Mamadou Bowie MD [address] [place] [address] PCP - Chzjzsh12/13/23 Cindy Ruiz [facility] [address] [place] [address] ResidentInternal Medicine12/07/14 Trevor Espino MD [address] [place] [address] Urolog05/16/16 Jaci Whitlock APRN CNP 420 [facility] [address] [place] [address] Nurse Practitioner - Women's Health12/14/16 Doris Ricci MD [facility] [address] [place] [address] PhysicianInternal Medicine07/11/20 Yudy Pompa MD [address] [place] [address] [phone] Assigned Cancer Care Provider08/21/20 Mary Carmen Rodriguez MD 420 [facility] [address] [place] [address] MDDermatology11/09/20 Herber Lopez MD 420 [facility] [address] [place] [address] MDDermapathology11/09/20 Gloria Elizalde MD [address] [place] [address] Resident12/24/22 Mamadou Bowie MD [address] [place] [address] Assigned PCP03/23/23 Makenzie Romano MD [address] [place] [address] MDPsychiatry & Neurology - Child & Adolescent Psychiatry11/08/23 Shani Stephenson MD [address] [place], [place] [address] ResidentPsychiatry11/08/23 Ita Newton Specialty Care Coordinator06/04/24 Kenya Jennings MD 420 [facility] [address] [place], [place] [address] MDPlastic Surgery06/04/24 Herber Lopez MD 420 [facility] [address] [place] [address] Assigned Dermatology Provider07/26/24 Сергей Dumont, [facility] Social Worker08/13/24 Kenya Jennings MD 420 [facility] [address] [place], [place] [address] Assigned Surgical Provider08/26/24 Carmen Cole PA-C [address] 026735 Assigned Sleep Provider09/25/24 Jesse Arvizu MD [address] [place] [address] Assigned Behavioral Health Provider12/26/2510 Marita Chisholm [facility] 2450 [facility] [address] [place], [place] [address] OuhslfgmswAvnzankgso89/22/25documented as of this encounter
--- OUTSIDE RECORDS SUMMARY | 2025-03-23 08:05 | XMS_ITS | Encounter Summary ---
Author Organization [facility] Address [address] [place] [address] Care Team Providers Care Barrel Lapper Name Role Phone Cindy Ruiz Unavailable Trevor Espino MD Unavailable [phone] Jaci Whitlock APRN SYBASE DEVELOPER Unavailable + Doris Ricci MD Unavailable Yudy Pompa MD Unavailable [phone] Mary Carmen Rodriguez MD Unavailable + Herber Lopez MD Unavailable [phone] Gloria Elizalde MD Unavailable [phone] Mamadou Bowie MD Primary Care Provider [phone] Mamadou Bowie MD Unavailable Makenzie Romano MD Unavailable [phone] Shani Stephenson MD Unavailable [phone] Ita Newton Unavailable Unavailable Kenya Jennings MD Unavailable [phone] Herber Lopez MD Unavailable [phone] Сергей Dumont [facility] Unavailable Unavailable Kenya Jennings MD Unavailable [phone] Carmen Cole PA-C Unavailable [phone] Jesse Arvizu MD Unavailable Marita Chisholm [facility] Unavailable [phone] Reason for Visit * Auth/CertSpecialtyDiagnoses / ProceduresReferred By ContactReferred To Contact Surgery Diagnoses Gender dysphoria in adult Gender dysphoria in adult [F64.0] Procedures UT MASTECTOMY, SIMPLE, COMPLETE MASTECTOMY, BILATERAL, SIMPLE, NO nipple grafts. OnQ [facility]ly [facility] [address] [place], [place] [address] [place] [address] Phone: tel: fax: Referral IDStatusReasonStart DateExpiration DateVisits RequestedVisits [id number] Encounter Details DateTypeDepartmentCare Team (Latest Contact Info)Ohqzpsuevvu90/18/2025 8:[address] [facility] [address] [place], [place] [address] [address] Torey Dumont MD [address] [place] [address] [address] [place] [phone] Enedelia Matthews MD [address] [place] [address] Anesthesia Record Procedure NameResponsible AnesthesiologistAnesthesia Start TimeAnesthesia Stop TimeMASTECTOMY, BILATERAL, SIMPLE, NO nipple grafts. OnQ (Bilateral: Breast) Torey Dumont MD03/23/25 [id number]/23/25 8189JqwnFltvUjbjwWxekzwt93/18/69003712KSSK Ready for Etklemsoq1316Dw StartAnesthesia Start is defined as when the anesthesia provider assumed care, began anesthesia prep, remained continuously present with the patient, and excludes all time for performing the pre-anesthesia evaluation. The Pre-Anesthesia Evaluation was completed before Anesthesia Start.08 Start [id number] REASSESSI attest that I have identified and re-evaluated the patient immediately before the induction of anesthesia and I am satisfied that the anesthetic plan is suitable for the patient's condition and procedure. The first vital signs recorded are pre-induction. Kaelyn Juarez APRN [id number] Rqojoioec1270Ms Hfgooyedcz2810Xasscqldlw Ready for Ndrhpjulp3311Uoixd NoteSitting patient up per surgeon [id number] [id number] COLLECTION SYSTEMS FOREMAN HandoffI, Kaelyn Juarez APRN CRNA, attest that I have reviewed all the significant information with the provider relieving me and assuming care of this patient. All questions were answered, anesthesia and OR team are aware of change of COLLECTION SYSTEMS FOREMAN.0942Quick NoteSitting patient up per surgeon [id number] Dngiqfw0011Bjsubfxrk HandoffI, Torey Dumont MD, attest that I have reviewed all the significant information with the provider relieving me and assuming care of this patient. All questions were answered, anesthesia and OR team are aware of change of anesthesiologist.1018Quick NoteSitting patient up per surgeon request 1018MD Uvhufur4691Grfxy NoteSitting patient up per surgeon iwmyqim9795Trmbo Note Pt in sitting position per surgeon request; returned to [id number] Extubation All extubation criteria met prior to removal.1235an stop piyf1122Ue Stop Electronically signed by Kaelyn Juarez APRN CRNA on March 23, 2025 12:40 PM* NameTotalmidazolam 1 mg/mL2 mgHYDROmorphone 1 mg/mL1 mgpropofol 10 mg/mL230 mgpropofol drip mcg/kg/min4,134.43 mgrocuronium 10 mg/mL190 mgphenylephrine (NED-SYNEPHRINE) xcsonaxme563 mcgdexamethasone (DECADRON) 4 mg/mL6 mg sugammadex (BRIDION) 200mg/0oD074 mgceFAZolin Sodium (ANCEF) injection 3 g3 g fosaprepitant (EMEND) 150 mg in sodium chloride 0.9 % 275 mL intermittent gttekgyi723 mgdexmedeTOMIDine (PRECEDEX) 4 mcg/mL bolus20 mcgalbuterol (PROVENTIL HFA/VENTOLIN HFA) inhaler6 pufftranexamic acid 1 g in 100 mL NS IV bag (premix)1 kDE594 mLLR1,000 mL * Agents Name O2 N2O Air Exp Sevoflurane Exp Isoflurane Exp Desflurane O2 Delivery Device Ins Sevoflurane Ins Isoflurane Ins Desflurane O2 Auxiliary * Blood No blood administrations on file. TypeDetailsPlacementRemovalIncision/Surgical Site06/29/20; 1733; Left; Chest; 4 port sites06/29/20 1733 by Gabriela Barragan RNIncision/Surgical SiteIncision; 03/23/25; 0922; Bilateral; Breast; bilateral mastectomy, no uczwsve99/18/25 0922 by Hanna Serrano, RNPeripheral IV03/23/25; 0736; 20 G; Anterior, Right; Lower jwtbeen07/18/25 0736 by Josefina Bolton RN03/23/25 1330 by Tavares Valenzuela RNUrinary Drain03/23/25; 0818; Urethral Catheter; No; Surgical procedure; 16 fr03/23/25 0818 by Hanna Serrano RN03/23/25 1217 by Hanna Serrano RNETTPlacement Date: 03/23/25; Placement Time: 0820 (created via procedure documentation); Mask Ventilation: 1; Induction Type: Intravenous; Ease of Intubation: Easy; Technique: Video laryngoscopy; Tube Size: 7.5 mm; VL Blade Size: [place] scope 4 (hyperangle 4--small mouth opening); Grade View: 1; Adjucts: Stylet; Placement Person: Physician, KIRK; Attempts: 1 03/23/25 0820 by Kaelyn Juarez APRN CRNA03/23/25 1220 by Kaelyn Juarez APRN CRNAPeripheral IV03/23/25; 0823; 20 G; (jelco); Left; Hand; Alcohol; None; 0823 by Kaelyn Juarez APRN CRNA03/23/25 1500 by Gabriela Tristan RN Drain03/23/25; 1139; Closed/Suction; 1; Left, Lateral; Chest; Bulb; 15 [place] 03/23/25 1139 by Marva Chambers RN03/23/25 1618 by Inpatient, NurseDrain 03/23/25; 1140; Closed/Suction; 1; Right, Lateral; Chest; Bulb; 15 [place] 03/23/25 1140 by Marva Chambers RN03/23/25 1618 by Inpatient, NurseLDA Elastomeric Pump/On-Q105/23/24; 1148; continuous nerve block; mid upper abdomen; 03/23/25; 06196805/23/24 1148 by Hanna Serrano RN03/23/25 1618 by Inpatient, Nursedocumented in this encounter Social History Tobacco UseTypesPacks/DayYears UsedDateSmoking Tobacco: NeverPassive Smoke Exposure: NeverSmokeless Tobacco: NeverAlcohol UseStandard Drinks/WeekComments Not Currently0 (1 standard drink = 0.6 oz pure alcohol)1 drink every couple of weeksSocial Connection and Isolation PanelAnswerDate RecordedFrequency of Communication with Friends and FamilyNot on file04/02/2024How often do you get together with friends or relatives?Three times a week04/02/2024ttends Latter Day ServicesNot on file04/02/2024ctive Member of Clubs or OrganizationsNot on file 04/02/2024ttends Club or Organization MeetingsNot on file04/02/2024Marital StatusNot on file04/02/2024HQ-2AnswerDate RecordedPHQ-2 Wwcco03105/19/2024[facility] Occupational Health - Occupational Stress QuestionnaireAnswerDate RecordedDo you feel stress - tense, restless, nervous, or anxious, or unable to sleep at night because yourmind is troubled all the time - these days?Only a rtdanl5204/02/2024Exercise Vital SignAnswerDate RecordedOn average, how many days [...] an overnight [facility], or couch-surfing.)Yes12/20/2024re you worried about losing your [...] ex-partner?No03/23/2025CommentsNoSex and Gender InformationValueDate RecordedSex Assigned at RortfEtfppq74/12/2021 10:33 PM CDTLegal SexFemale 03/09/2012 3:58 AM CSTGender Jhynmkpgjrvvt94/12/2021 10:33 PM CDTSexual AtzowygjvclMegspvi14/17/2020 4:20 AM CSTdocumented as of this encounter OR Notes * Anesthesia Postprocedure Evaluation - Torey Dumont MD - 03/23/2025 2:10 PM CST Patient: Gabriela Kraus Procedure: Procedure(s): MASTECTOMY, BILATERAL, SIMPLE, NO nipple grafts. OnQ Anesthesia Type: General Note: Disposition: Outpatient Postop Pain Control: Uneventful Sign Out: Well controlled pain PONV: No Neuro/Psych: Uneventful Sign Out: Acceptable/Baseline neuro status Airway/Respiratory: Uneventful Sign Out: Acceptable/Baseline resp. status CV/Hemodynamics: Uneventful Sign Out: Acceptable CV status; No obvious hypovolemia; No obvious fluid overload Other NRE: NONE DID A NON-ROUTINE EVENT OCCUR? No Last vitals: Vitals Value Taken Time BP 123/77 03/23/25 13:30 Temp 36.6 ??C (97.9 ??F) 03/23/25 12:30 Pulse 75 03/23/25 13:31 Resp 20 03/23/25 13:31 SpO2 93 % 03/23/25 13:31 Vitals shown include unfiled device data. Electronically Signed By: Torey Dumont MD March 23, 2025 2:10 PM URCE ROOM TEACHER * Anesthesia Procedure Notes - Kaelyn Juarez APRN CRNA - 03/23/2025 9:16 AM CSTAssociated Order(s): Airway Airway Patient location during procedure: OR Procedure Start/Stop Times: 03/23/2025 8:20 AM Staff - Anesthesiologist: Enedelia Matthews MD COLLECTION SYSTEMS FOREMAN: Kaelyn Juarez APRN CRNA Performed By: COLLECTION SYSTEMS FOREMAN and anesthesiologist Consent for Airway Urgency: elective Indications and Patient Condition Indications for airway management: chana-procedural Induction type:intravenous Mask difficulty assessment: 1 - vent by mask Final Airway Details Final airway type: endotracheal airway Successful airway: ETT - single and Oral Endotracheal Airway Details ETT size (mm): 7.5 Cuffed: yes Successful intubation technique: video laryngoscopy VL Blade Size: Glidescope 4 (hyperangle 4--small mouth opening) Grade View of Cords: 1 Adjucts: stylet Position: Right Measured from: lips Secured at (cm): 21 Bite block used: None Post intubation assessment Placement verified by: capnometry, equal breath sounds and chest rise Number of attempts at approach: 1 Number of other approaches attempted: 0 Secured with: tape Ease of procedure: easy Dentition: Intact and Unchanged Medication(s) Administered Medication Administration Time: 03/23/2025 8:20 AM URCE ROOM TEACHER * Anesthesia Preprocedure Evaluation - Enedelia Matthews MD - 03/22/2025 3:19 PM CST Anesthesia Pre-Procedure Evaluation Patient: Gabriela Kraus : 1965 Procedure : Procedure(s): MASTECTOMY, BILATERAL, SIMPLE, NO nipple grafts. 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 History of anesthetic complications - PONV. L ulnar nerve injury during surgery in 2016. Residual numbness.. ROS/MED HX ENT/Pulmonary: (+) Intermittent, asthma Treatment: Inhaler prn, severe, COPD, (-) tobacco use and sleep apnea Neurologic: Comment: Last used Imitrex 2 weeks ago. Migraines respond well to acupuncture therapy (+) peripheral neuropathy, - left ulnar injury (exacerbated by positioning in OR). Still has pinkienumbness. migraines, (-) no seizures and no CVA Cardiovascular: (+) - - - - - Previous cardiac testing Echo: Date: Results: Stress Test: Date: 2007 Results: No ischemia ECG Reviewed: Date: 2013 Results: NSR Cath: Date: Results: METS/Exercise Tolerance: >4 METS Hematologic: - neg hematologic ROS (-) history of blood clots and history of blood transfusion Musculoskeletal: Comment: Mild diffuse arthritis GI/Hepatic: (-) GERD and liver disease Renal/Genitourinary: Comment: (+) Nephrolithiasis , Endo: Comment: Body mass index is 43.33 kg/m??. Hyperparathyroidism (+) Obesity, (-) Type II DM Psychiatric/Substance Use: Comment: PTSD (+) psychiatric history depression Infectious Disease: - neg infectious disease ROS Malignancy: Comment: BCC (+) Malignancy, History of Other and Skin.Skin CA Remission status post Surgery. Other CA Endometrial Remission status post Surgery. Other: - neg other ROS Physical Exam Airway Mallampati: II TM distance: >3 FB Neck ROM: limited Upper bite lip test: unable to assess Mouth opening: >= 4 cm Cardiovascular - normal exam Dental (+) Modest Abnormalities - crowns, retainers, 1 or 2 missing teeth Pulmonary - normal exam Neurological - normal exam She appears awake, alert and oriented x3. Other Findings OUTSIDE LABS: CBC: Lab Results Component Value Date WBC 7.44 03/12/2025 WBC 6.77 12/20/2024 HGB 12.1 03/12/2025 HGB 12.0 12/20/2024 HCT 36.9 03/12/2025 HCT 36.3 12/20/2024 PLT 357 03/12/2025 PLT 330 12/20/2024 BMP: Lab Results Component Value Date NA 139 03/12/2025 NA 140 12/20/2024 POTASSIUM 4.4 03/12/2025 POTASSIUM 4.3 12/20/2024 CHLORIDE 103 03/12/2025 CHLORIDE 105 12/20/2024 CO2 25 03/12/2025 CO2 25 12/20/2024 BUN 19.7 03/12/2025 BUN 18.6 12/20/2024 CR 0.82 03/12/2025 CR 0.76 12/20/2024 GLC 88 03/12/2025 GLC 87 01/18/2025 COAGS: No results found for: PTT, INR, FIBR POC: Lab Results Component Value Date BGM 105 (H) 06/29/2020 HCG Negative 08/19/2013 HEPATIC: Lab Results Component Value Date ALBUMIN 4.0 03/12/2025 PROTTOTAL 7.0 03/12/2025 ALT 23 03/12/2025 AST 30 03/12/2025 ALKPHOS 90 03/12/2025 BILITOTAL 0.5 03/12/2025 OTHER: Lab Results Component Value Date PH 7.35 06/29/2020 LACT 2.1 (H) 06/29/2020 A1C 5.8 (H) 03/12/2025 ALTON 9.2 03/12/2025 PHOS 3.2 06/29/2020 MAG 2.2 06/30/2020 LIPASE 129 05/16/2016 TSH 1.60 03/12/2025 Anesthesia Plan ASA Status: 3 NPO Status: NPO Appropriate Anesthesia Type: General. Airway: oral. Induction: intravenous. Maintenance: Balanced. Techniques and Equipment: - Monitoring Plan: standard ASA monitoring, train of four monitoring, processed EEG monitor Consents Postoperative Care Pain management: non-narcotic analgesics, peripheral nerve block. Comments: Enedelia Matthews MD Clinically Significant Risk Factors Present on Admission # Morbid Obesity: Estimated body mass index is 41.41 kg/m?? as calculated from the following: Height as of 03/12/25: 1.765 m (5' 9.5). Weight as of 03/12/25: 129 kg (284 lb 8 oz). [1] Allergies Allergen Reactions Adhesive Tape Rash Sulfa Antibiotics Rash URCE ROOM TEACHER URCE ROOM TEACHER URCE ROOM TEACHER documented in this encounter Miscellaneous Notes * Anesthesia Care Transfer Note - Kaelyn Juarez APRN CRNA - 03/23/2025 12:35 PM CST Patient: Gabriela Kraus Procedure: Procedure(s): MASTECTOMY, BILATERAL, SIMPLE, NO nipple grafts. OnQ Diagnosis: Gender dysphoria in adult [F64.0] Diagnosis Additional Information: No value filed. Anesthesia Type: General Note: Oropharynx: oropharynx clear of all foreign objects and spontaneously breathing Level of Consciousness: awake Oxygen Supplementation: face mask Level of Supplemental Oxygen (L/min / FiO2): 8 Independent Airway: airway patency satisfactory and stable Dentition: dentition unchanged Vital Signs Stable: post-procedure vital signs reviewed and stable Report to RN Given: handoff report given Patient transferred to: PACU Handoff Report: Identifed the Patient, Identified the Reponsible Provider, Reviewed the pertinent medical history, Discussed the surgical course, Reviewed Intra-OP anesthesia mangement and issues during anesthesia, Set expectations for post-procedure period and Allowed opportunity for questions andacknowledgement of understanding Vitals: Vitals Value Taken Time BP 104/62 03/23/25 12:30 Temp 36.6 ??C (97.9 ??F) 03/23/25 12:30 Pulse 82 03/23/25 12:40 Resp 15 03/23/25 12:40 SpO2 99 % 03/23/25 12:40 Vitals shown include unfiled device data. Electronically Signed By: Kaelyn Juarez APRN CRNA March 23, 2025 12:41 PM URCE ROOM TEACHER documented in this encounter Plan of Treatment DateTypeDepartmentCare Team (Latest Contact Info)Xztblvzcqxm31/29/2025 4:00 PM CSTOffice Visit [facility] [place] [address] [facility] [address]th [place] [address] Kenya Jennings MD [address] [place] [address] [address] [place], [place] [phone] 05/20/2025 1:00 PM CSTOffice Visit [facility] Psychiatry [address] [place] [phone] Racheal Ng MD [facility]0 [facility] [address] [place], [place] [address] 05/25/2025 10:40 AM CSTOffice Visit [facility] Addiction [address] [phone] Yael Reaves MD [address] [place] [address] 08/17/2025 12:15 PM CDTOffice Visit [facility] [address] [place] [phone] Herber Lopez MD [address] [facility] 98 [place], [place] [address] 01/14/2026 1:40 PM CDTAncillary Procedure [facility] [address] [place] [phone] Yudy Pompa MD [address] [place] [address] 01/18/2026 1:20 PM CDTOncology Visit [facility] [address] [place] [phone] Yudy Pompa MD [address] [place] [phone] documented as of this encounter Goals GoalPatient Goal TypeAssociated ProblemsRecent ProgressPatient-Stated?Author MYC ECC SURG ENROLL Care PlanMyC ECC SURG ENROLLNoSpearFina murray Jdocumented as of this encounter Procedures Procedure NamePriorityDate/TimeAssociated DiagnosisCommentsANE AIRWAY ETT IGLIGSZFCHKMiyvgaa60/18/2025 8:20 AM RESOURCE ROOM TEACHER documented in this encounter Results * ANE AIRWAY ETT PERFORMABLE (03/23/2025 8:20 AM RESOURCE ROOM TEACHER) Narrative Kaelyn Juarez APRN COLLECTION SYSTEMS FOREMAN - 03/23/2025 8:20 AM RESOURCE ROOM TEACHER Kaelyn Juarez APRN CRNA 03/23/2025 9:21 AM Airway ? Patient location during procedure: OR ? Procedure Start/Stop Times: 03/23/2025 8:20 AM Staff - ? Anesthesiologist: ??Enedelia Matthews MD ? COLLECTION SYSTEMS FOREMAN: Kaelyn Juarez APRN CRNA ? Performed By: COLLECTION SYSTEMS FOREMAN and anesthesiologist Consent for Airway ? Urgency: elective Indications and Patient Condition ? Indications for airway management: chana-procedural ? Induction type:intravenous ? Mask difficulty assessment: 1 - vent by mask Final Airway Details ? Final airway type: endotracheal airway ? Successful airway: ETT - single and Oral Endotracheal Airway Details ? ETT size (mm): 7.5 ? Cuffed: yes ? Successful intubation technique: video laryngoscopy ? VL Blade Size: Glidescope 4 (hyperangle 4--small mouth opening) ? Grade View of Cords: 1 ? Adjucts: stylet ? Position: Right ? Measured from: lips ? Secured at (cm): 21 ? Bite block used: None Post intubation assessment ? Placement verified by: capnometry, equal breath sounds and chest rise ? Number of attempts at approach: 1 ? Number of other approaches attempted: 0 ? Secured with: tape ? Ease of procedure: easy ? Dentition: Intact and Unchanged Medication(s) Administered Medication Administration Time: 03/23/2025 8:20 AM Authorizing ProviderResult TypeResult StatusEnedelia TURNER ANESTHESIAFinal Result documented in this encounter Visit Diagnoses Not on filedocumented in this encounter Administered Medications Medication OrderMAR ActionAction DateDoseRateSite albuterol (PROVENTIL HFA/VENTOLIN HFA) inhaler Inhalation, PRN, Starting on Sat03/23/25 at 0832, Anesthesia Intra-op $03/23/2025 8:32 AM CST6 puffs ceFAZolin Sodium (ANCEF) injection 3 g Routine, 3 g, Intravenous, PRE-OP/PRE-PROCEDURE, Starting on Sat03/23/25 at 0638, For 1 dose, Givefirst dose within 1 hour PRIOR to incision., Indications: Perioperative Pharmacoprophylaxis, Pre-procedure Indications:Perioperative Pharmacoprophylaxis$03/23/2025 8:22 AM CST3 g dexAMETHasone (DECADRON) injection Intravenous, PRN, Administer over 1 Minutes, Starting on Sat03/23/25 at 0915, Anesthesia Intra-op $03/23/2025 9:15 AM CST6 mg dexmedeTOMIDine (PRECEDEX) 4 mcg/mL bolus Intravenous, CONTINUOUS PRN, Starting on Sat03/23/25 at 0924, Anesthesia Intra-op $Bolus03/23/2025 9:49 AM CST8 mcg$03/23/2025 9:24 AM CST12 mcg fosaprepitant (EMEND) 150 mg in sodium chloride 0.9 % 275 mL intermittent infusion 150 mg, Intravenous, ONCE, On Sat03/23/25 at 0800, For 1 dose, Administer over 20 Minutes, Intra-procedure $03/23/2025 9:20 AM PRF818 mg HYDROmorphone (DILAUDID) injection Intravenous, PRN, Starting on Sat03/23/25 at 0851, Anesthesia Intra-op $03/23/2025 9:51 AM CST0.5 mg$03/23/2025 8:51 AM CST0.5 mg lactated ringers infusion Intravenous, CONTINUOUS PRN, Anesthesia Intra-op, Starting on Sat03/23/25 at 0800, Until Sat03/23/25 at 1240 $03/23/2025 8:00 AM RESOURCE ROOM TEACHER lactated ringers infusion Intravenous, CONTINUOUS PRN, Anesthesia Intra-op, Starting on Sat03/23/25 at 0845, Until Sat03/23/25 at 1240 $03/23/2025 8:45 AM RESOURCE ROOM TEACHER midazolam (VERSED) injection Intravenous, Administer over 2 Minutes, PRN, Starting on Sat03/23/25 at 0802, Anesthesia Intra-op $Given03/23/2025 8:17 AM CST1 mg$Given03/23/2025 8:02 AM CST1 mg phenylephrine (NED-SYNEPHRINE) injection Intravenous, CONTINUOUS PRN, Starting on Sat03/23/25 at 0858, Anesthesia Intra-op $Bolus03/23/2025 9:09 AM BPR383 mcg$Bolus03/23/2025 9:03 AM YXE530 mcg$New Bag 03/23/2025 8:58 AM MEK476 mcg propofol (DIPRIVAN) infusion Intravenous, CONTINUOUS PRN, Starting on Sat03/23/25 at 0817, Anesthesia Intra-op Rate/Dose Vuqgih3003/23/2025 12:03 PM CST50 mcg/kg/min38.43 mL/hrRate/Dose Change 03/23/2025 11:33 AM CST75 mcg/kg/min57.645 mL/hrRate/Dose Ixnwyj4403/23/2025 11:07 AM TUE550 mcg/kg/min76.86 mL/hr propofol (DIPRIVAN) injection 10 mg/mL vial Intravenous, PRN, Starting on Sat03/23/25 at 0817, Anesthesia Intra-op $Given03/23/2025 11:43 AM CST30 mg$Given03/23/2025 8:51 AM CST50 mg$Given 03/23/2025 8:17 AM JJE389 mg rocuronium injection Intravenous, PRN, Starting on Sat03/23/25 at 0818, Anesthesia Intra-op $Given03/23/2025 11:10 AM CST20 mg$Given03/23/2025 10:42 AM CST20 mg$Given 03/23/2025 10:16 AM CST20 mg sugammadex (BRIDION) injection Intravenous, PRN, Starting on Sat03/23/25 at 1209, Anesthesia Intra-op $Given03/23/2025 12:09 PM FAV260 mg tranexamic acid 1 g in 100 mL NS IV bag (premix) 1 g, Intravenous, ONCE, On Sat03/23/25 at 1130, For 1 dose, Each 1 gram to be infused over 10 minutes., Intra-procedure $Given03/23/2025 11:19 AM CST1 gdocumented in this encounter Additional Health Concerns Active ProblemsNoted DateDiagnosed DateMyC ECC SURG SCTHVM1109/11/2024ssessment Noted TimePHQ-9 Depression Total Score: 10105/12/2024 11:51 AM CSTdocumented as of this encounter Care Teams Team MemberRelationshipSpecialtyStart DateEnd Date Mamadou Bowie MD [address] [place] [address] [phone] PCP - Rkzlejt17/13/23 Cindy Ruiz [address] [place], [place] [phone] ResidentInternal Medicine12/07/14 Trevor Espino MD [address] [place] [address] [phone] Urolog05/16/16 Jaci Whitlock APRN CNP [address] [place] [address] 395 [place] [address] Nurse Practitioner - Women's Health12/14/[address] [facility] [address] [place] [address] PhysicianInternal Medicine07/11/20 Yudy Pompa MD [address] [place] [address] Assigned Cancer Care Provider08/21/20 Mary Carmen Rodriguez MD [address] [place] [address] [address] [place], [place] [phone] MDDermatology11/09/20 Herber Lopez MD [address] [address]645 MDDermapathology11/09/20 Gloria Elizalde MD [address] [phone] Resident12/24/22 Mamadou Bowie MD [address] [place] [address] [phone] Assigned PCP03/23/23 Makenzie Romano MD [facility] [phone] MDPsychiatry & Neurology - Child & Adolescent Psychiatry11/08/23 Shani Stephenson MD [address] [place] [address] [phone] ResidentPsychiatry11/08/23 Ita Newton Specialty Care Coordinator06/04/24 Kenya Jennings MD [address] [place] [address] [id number] MDPlastic Surgery06/04/24 Herber Lopez MD [address] 859845 Assigned Dermatology Provider07/26/24 Сергей Dumont [facility] Social Worker08/13/24 Kenya Jennings MD [address] [place] [address] 761975 Assigned Surgical Provider08/26/24 Carmen Cole PA-C [address] [place], [place] [address] Assigned Sleep Provider09/25/24 Jesse Arvizu MD [address] [place] [address] Assigned Behavioral Health Provider12/26/2510 Marita Chisholm [facility] [address] [place], [place] [address] IaxdrfqwrmQqpqvqzznc52/22/25documented as of this encounter
--- OUTSIDE RECORDS SUMMARY | 2025-03-30 10:00 | XMS_ITS | Encounter Summary ---
Author Organization [facility] Address [address] [place] [address] Care Team Providers Care Ethologist Name Role Phone Cindy Ruiz Unavailable [phone] Trevor Espino MD Unavailable [phone] Jaci Whitlock APRN ELECTRONIC DEVELOPMENT TECHNICIAN Unavailable + Doris Ricci MD Unavailable [phone] Yudy Pompa MD Unavailable [phone] Mary Carmen Rodriguez MD Unavailable + Herber Lopez MD Unavailable [phone] [facility] SystemG[facility] MD Unavailable [phone] Mamadou Bowie MD Primary Care Provider [phone] Mamadou Bowie MD Unavailable Makenzie Romano MD Unavailable Shani Stephenson MD Unavailable [phone] Ita Newton Unavailable Unavailable Kenya Jennings MD Unavailable [phone] Herber Lopez MD Unavailable [phone] Сергей Dumont [facility] Unavailable Unavailable Kenya Jennings MD Unavailable [phone] Carmen Cole PA-C Unavailable [phone] Marita Chisholm [facility] Unavailable [phone] Racheal Ng MD Unavailable [phone] Marita Chisholm [facility] Unavailable + [phone] Reason for Visit * ReasonCommentsSurgical FollowupLisa is being seen for a 1 week post-operative visit. Top surgery DOS 03/23/2025. Encounter Details DateTypeDepartmentCare Team (Latest Contact Info)Ghwslnpobib49/25/2025 10:00 AM CSTOffice Visit [facility] [address] [place] [address] Lynn Parks APRN [address] [address] S/P bilateral mastectomy (Primary Dx); Rash Social History Tobacco UseTypesPacks/DayYears UsedDateSmoking Tobacco: NeverPassive Smoke Exposure: NeverSmokeless Tobacco: Never Tobacco Cessation:Counseling Given: Not Answered Alcohol UseStandard Drinks/WeekCommentsNot Currently0 (1 standard drink = 0.6 oz pure alcohol)1 drink every couple of weeksSocial Connection and Isolation Panel AnswerDate RecordedFrequency of Communication with Friends and FamilyNot on file 04/02/2024How often do you get together with friends or relatives?Three times a week04/02/2024ttends Sikh ServicesNot on file04/02/2024ctive Member of Clubs or OrganizationsNot on file04/02/2024ttends Club or Organization Meetings Not on file04/02/2024Marital StatusNot on file04/02/2024HQ-2AnswerDate Recorded PHQ-2 Hmwfl84505/19/2024[facility] - Occupational Stress QuestionnaireAnswerDate RecordedDo you feel stress - tense, restless, nervous, or anxious, or unable to sleep at night because yourmind is troubled all the time - these days?Only a fwjhwr5704/02/2024Exercise Vital SignAnswerDate RecordedOn average, how many days [...] and you didn???t have money to getmore?No12/20/2024Housing StabilityAnswerDate RecordedDo you have housing? (Housing is defined as stable permanent housing and does not include staying ou tside in a car, in a tent, in an abandoned building, in an overnight correction, or couch-surfing.)Yes12/20/2024re you worried about losing your housing?No 12/20/2024Financial Resource StrainAnswerDate RecordedWithin the past 12 months, have you or your family members you live with been unable to get utilities (heat, electricity) when it was really needed?No12/20/2024Transportation Needs AnswerDate RecordedWithin the past 12 months, has lack of transportation kept you from medical appointments, getting your medicines, non-medical meetings or appointments, work, or from getting things that you need?No12/20/2024 Interpersonal SafetyAnswerDate RecordedDo you feel physically and emotionally safe where you currently live?Yes03/23/2025Within the past 12 months, have you been hit, slapped, kicked or otherwise physically hurt by someone?No03/23/2025 Within the past 12 months, have you been humiliated or emotionally abused in other ways by your partner or ex-partner?No03/23/2025CommentsNoSex and Gender InformationValueDate RecordedSex Assigned at NhrscRjxlvz71/12/2021 10:33 PM CDTLegal KixOgxuez93/04/2012 3:58 AM CSTGender Tsaojnjtcwwrz77/12/2021 10:33 PM CDTSexual AzeoopxdxisJfxnors91/17/2020 4:20 AM CSTdocumented as of this encounter Last Filed Vital Signs Vital SignReadingTime TakenCommentsBlood Bdorccbm417/7511 9:52 AM STORY TELLER Bpbhk467003/30/2025 9:52 AM MOBIkiizvgnwet64.8 ??C (98.3 ??F)03/30/2025 9:52 AM CSTRespiratory Rate--Oxygen Gxubceohwi62%03/30/2025 9:52 AM CSTInhaled Oxygen Concentration--Eupbdm226.3 kg (280 lb 9.6 oz)03/30/2025 9:52 AM ETVZmicup004.5 cm (5' 9.5)03/30/2025 9:52 AM CSTBody Mass Index40.8403/30/2025 9:52 AM STORY TELLER documented in this encounter Patient Instructions * Patient Instructions* Lynn Parks APRN ELECTRONIC DEVELOPMENT TECHNICIAN - 03/30/2025 10:00 AM STORY TELLER Care of Chest Incisions Keep compression on for 1 more week from today. Continue modified T-Trace arms and do not life more than 5 pounds for 2 more weeks. At 3 weeks post op you may begin to use your arms as you normally would and you can lift up to 10 pounds until your 6 week post-op appointment with Dr Jennings, when restrictions are typically lifted. Remove the tape from your incisions by 3 weeks post op. You may startmoisturizing your incisions with any non-scented, non-glittered lotion 3 weeks from your surgery date. You can start scar care after the tape is removed. Any over the counter scar care is ok, we recommend silicone strips or sheets. These can be purchased on burrp! and at [employer] and [employer]. At one month post op, baseline shoulder motion should return. Full shoulder motion should return by8 weeks. When to call: Sudden increase of swelling or pain on one side Uncontrolled pain despite pain medication Worsening of chest swelling Separation of nipple from chest skin Redness and warmth in chest area Fever > 101 Contact the RN between 8-3:30 Mon-Fri with questions or concerns through my chart message via your doctor's name (most efficient) or call at [phone]. For urgent medical issues that cannot wait, call [phone] Mon-Fri 8:-4:30. After hours, weekends or holidays, call [phone] and ask to speak to the knitting demonstrator plastic surgeon fellow. 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 Jennings. S: Gabriela is here for one week PO follow-up. Drain outputs have remained elevated with 42 from left and 52 from right yesterday. Pain has been very manageable. She has a rash on left shoulder that she doesn't think is related to surgery, but has been applying cortisone cream. She would like stronger steroid if possible. O: BP 119/75 (BP Location: Left arm, Patient Position: Sitting, Cuff Size: Adult Large) Pulse 81 Temp 98.3 ??F (36.8 ??C) (Oral) Ht 1.765 m (5' 9.5) Wt 127.3 kg (280 lb 9.6 oz) LMP (LMP Unknown) SpO2 98% BMI 40.84 kg/m?? General: NAD Chest: Bilateral chest incisions covered with Mepilex dressings. No erythema or rash around dressings. Papular rash on left shoulder. Minimal swelling and bruising PATH: A. LEFT breast, simple mastectomy: - Benign breast tissue with fibrocystic change (including microcysts) - Benign nipple and skin - Negative for atypia and malignancy B. RIGHT breast, simple mastectomy: - Benign breast tissue with fibrocystic change (including microcysts) and usual ductal hyperplasia - Benign nipple and skin - Negative for atypia and malignancy A/P: S/P bilateral mastectomy -healing well -Drains left in place due to high outputs - RTC for drain removal as scheduled -Continue compression from today and then continue x1 week once drains are out -Trex/5lb lifting restrictions x2 more weeks. Ok to increase movement and lifting up to 10lbs afterthis until 6 weeks post op, when restrictions will likely be cleared. -RTC Thursday 04/05 at 430 pm for drain removal with Dr Michaela Parks APRN, ELECTRONIC DEVELOPMENT TECHNICIAN [facility] 20 minutes spent on the date of the encounter doing chart review, history and physical, dressing changes, documentation and further activity as noted above. Y TELLER documented in this encounter Nursing Notes * Aimee Collazo - 03/30/2025 10:00 AM CST Chief Complaint Patient presents with Surgical Followup Gabriela is being seen for a 1 week post-operative visit. Top surgery DOS 03/23/2025. Vitals: 03/30/25 0952 BP: 119/75 BP Location: Left arm Patient Position: Sitting Cuff Size: Adult Large Pulse: 81 Temp: 98.3 ??F (36.8 ??C) TempSrc: Oral SpO2: 98% Weight: 127.3 kg (280 lb 9.6 oz) Height: 1.765 m (5' 9.5) Body mass index is 40.84 kg/m??. Aimee Collazo, EMT Y TELLER documented in this encounter Plan of Treatment DateTypeDepartmentCare Team (Latest Contact Info)Vmfmrvpmhbg42/29/2025 4:00 PM CSTOffice Visit [facility] [place] [address] [facility] [address] [place] [address] Kenya Jennings MD [address] [place] [address] [address] [place], [place] [address] 05/20/2025 1:00 PM CSTOffice Visit [facility] [address] [facility] [address] [place] [phone] Racheal Ng MD [address] [place], [place] [phone] [place], [place] [address] 05/25/2025 10:40 AM CSTOffice Visit [facility] Addiction [address] [phone] Yael Reaves MD [address] [place] [address] 08/17/2025 12:15 PM CDTOffice Visit [facility]ology [facility] [address] [place] [phone] Herber Lopez MD 420 [facility] [address] [place], [place] [address] 01/14/2026 1:40 PM CDTAncillary Procedure [facility] [address] [place] [phone] Yudy Pompa MD [address] [place] [phone] 01/18/2026 1:20 PM CDTOncology Visit [facility] [address] [place] [phone] Yudy Pompa MD [address] [place] [address] [phone] documented as of this encounter Goals GoalPatient Goal TypeAssociated ProblemsRecent ProgressPatient-Stated?Author MYC ECC SURG ENROLL Care PlanMy ECC SURG ENROLLNoSpearFina murray Jdocumented as of this encounter Visit Diagnoses Diagnosis S/P bilateral mastectomy- Primary Acquired absence of breast and nipple Rash Rash and other nonspecific skin eruption documented in this encounter Additional Health Concerns Active ProblemsNoted DateDiagnosed DateMyC ECC SURG [id number] Noted TimePHQ-9 Depression Total Score: 11:51 AM CSTdocumented as of this encounter Care Teams Team MemberRelationshipSpecialtyStart DateEnd Mamadou Bowie MD [address] [place], [place] [phone] PCP - Kbaskyb14/13/[address] [address] ResidentInternal Medicine12/07/14 Trevor Espino MD [address] [place] [address]5905 MDUrolog05/16/16 Jaci Whitlock APRN CNP [address] [place] [address] [address] [place], [place] [address] Nurse Practitioner - Women's Health12/14/16 Doris Ricci MD [facility] & [address] [address] PhysicianInternal Medicine07/11/20 Yudy Pompa MD [address] [place] [address] [phone] Assigned Cancer Care Provider08/21/20 Mary Carmen Rodriguez MD 420 [facility] [address] [place], [place] [address] MDDermatology11/09/20 Herber Lopez MD 420 [facility] [address] [place], [place] [address] MDDermapathology11/09/20 Gloria Elizalde MD 420 [place], [place] 97[address]85 Resident12/24/22 Mamadou Bowie MD [address] [place] [address] Assigned PCP03/23/23 Makenzie Romano MD 2450 [facility] [address] [place], [place] [address] MDPsychiatry & Neurology - Child & Adolescent Psychiatry11/08/23 Shani Stephenson MD 420 [place], [place] 26[address] ResidentPsychiatry11/08/23 Ita Newton Specialty Care Coordinator06/04/24 Kenya Jennings MD 420 [facility] [address] [place], [place] [address] MDPlastic Surgery06/04/24 Herber Lopez MD 420 [facility] [address] [place], [place] [address] Assigned Dermatology Provider07/26/24 Сергей Dumont [facility] Social Worker08/13/24 Kenya Jennings MD 420 [facility] [address] [place], [place] [address] Assigned Surgical Provider08/26/24 Carmen Cole PA-C [address] [facility] [place] [address]49[address] Assigned Sleep Provider09/25/24 Marita Chisholm [facility] [address] [phone] [place], [place] [address] HoxggsxxygOlklszijte75/22/25 Racheal Ng MD [facility] [place] [phone] [place] [address] Assigned Behavioral Health Clusgykr53/23/25 Marita Chisholm [facility] [address] [phone] [place] [address] Assigned [place] Sgfblpvoyh19/23/25documented as of this encounter
--- OUTSIDE RECORDS SUMMARY | 2025-04-05 16:30 | XMS_ITS | Encounter Summary ---
Author Organization [facility] Address [address] [place] [address] Care Team Providers Care Financial Manager Name Role Phone Cindy Ruiz Unavailable [phone] Trevor Espino MD Unavailable [phone] Jaci Whitlock APRN VOLCANOLOGY PROFESSOR Unavailable + Doris Ricci MD Unavailable +[phone] Yudy Pompa MD Unavailable [phone] Mary Carmen Rodriguez MD Unavailable + Herber Lopez MD Unavailable +[phone] [facility] Unavailable [phone] Mamadou Bowie MD Primary Care Provider [phone] Mamadou Bowie MD Unavailable Makenzie Romano MD Unavailable Shani Stephenson MD Unavailable [phone] Ita Newton Unavailable Unavailable Kenya Jennings MD Unavailable + [phone] Herber Lopez MD Unavailable [phone] Сергей Dumont [facility] Unavailable Unavailable Kenya Jennings MD Unavailable +[phone] Carmen Cole PA-C Unavailable +[phone] Marita Chisholm [facility] Unavailable [phone] Racheal Ng MD Unavailable + [phone] Marita Chisholm Kenya [facility] Unavailable + [phone] Reason for Visit * ReasonCommentsRECHECKLisa, is being seen today for a Drain removal. Encounter Details DateTypeDepartmentCare Team (Latest Contact Info)Lcvejjnsccb48/01/2025 4:30 PM CSTOffice Visit [facility] [place] [phone] [facility] [address] 4th [place] [address] Kenya Jennings MD [address] [facility] 195 [place] [address] S/P bilateral mastectomy (Primary Dx); Postoperative state Social History Tobacco UseTypesPacks/DayYears UsedDateSmoking Tobacco: NeverPassive Smoke Exposure: NeverSmokeless Tobacco: NeverAlcohol UseStandard Drinks/WeekComments Not Currently0 (1 standard drink = 0.6 oz pure alcohol)1 drink every couple of weeksSocial Connection and Isolation PanelAnswerDate RecordedFrequency of Communication with Friends and FamilyNot on file04/02/2024How often do you get together with friends or relatives?Three times a week04/02/2024ttends Gnosticism ServicesNot on file04/02/2024ctive Member of Clubs or OrganizationsNot on file 04/02/2024ttends Club or Organization MeetingsNot on file04/02/2024Marital StatusNot on file04/02/2024HQ-2AnswerDate RecordedPHQ-2 Nwyec30205/19/2024[facility] of Occupational Health - Occupational Stress QuestionnaireAnswerDate RecordedDo you feel stress - tense, restless, nervous, or anxious, or unable to sleep at night because yourmind is troubled all the time - these days?Only a jnqshi0904/02/2024Exercise Vital SignAnswerDate RecordedOn average, how many days [...] abandoned building, in an overnight longterm, or couch-surfing.)Yes12/20/2024re you worried about losing your housing?12/20/2024Financial Resource Strain AnswerDate RecordedWithin the past 12 months, have you or your family members you live with been unable to get utilities (heat, electricity) when it was really needed?12/20/2024Transportation NeedsAnswerDate RecordedWithin the past 12 months, has lack of transportation kept you from medical appointments, getting your medicines, non-medical meetings or appointments, work, or from getting things that you need?12/20/2024Interpersonal SafetyAnswerDate Recorded Do you feel physically and emotionally safe where you currently live?Yes 03/23/2025Within the past 12 months, have you been hit, slapped, kicked or otherwise physically hurt by someone?No03/23/2025Within the past 12 months, have you been humiliated or emotionally abused in other ways by your partner or ex-partner?No03/23/2025CommentsNoSex and Gender InformationValueDate RecordedSex Assigned at TdadxIjdmvu80/12/2021 10:33 PM CDTLegal SexFemale 03/09/2012 3:58 AM CSTGender Sewhtskeuzota91/12/2021 10:33 PM CDTSexual JycvohmbywcPlzozge10/17/2020 4:20 AM CSTdocumented as of this encounter Last Filed Vital Signs Vital SignReadingTime TakenCommentsBlood Xssftoof968/7712 5:03 PM DIRECTOR CLINICAL PHARMACOLOGY Kmker2111/05/2024 5:03 PM XYMHywbqfsuwpl70 ??C (98.6 ??F)04/05/2025 5:03 PM DIRECTOR CLINICAL PHARMACOLOGY Respiratory Rate--Oxygen Adpqmtjgzq30%04/05/2025 5:03 PM CSTInhaled Oxygen Concentration--Ccsubx699 kg (280 lb)04/05/2025 5:03 PM MCOTcflmr009.5 cm (5' 9.5)04/05/2025 5:03 PM CSTBody Mass Index40.7604/05/2025 5:03 PM CSTdocumented in this encounter Progress Notes * Kenya Jennings MD - 04/05/2025 4:30 PM CST PLASTICS POST-OP This is a 59 year old non-binary adult with a history of gender dysphoria who presents 1 week post-op after a bilateral simple mastectomy without nipple graft reconstruction on 03/23/25. Surgical tape was doing well initially but after 1 week was irritating her skin, so they switched it out with some micropore hypoallergenic tape, which she has on today. Gabriela reports I barely had any incision pain. Notes OnQ was really helpful. Only took some of the narcs qhs for sleep, as a buffer, but mainly just needed the NSAIDS. We removed drains today and put Mepilex borders on the drain sites. PE: Chest: Nice upper chest contour. Good symmetry. Incisions look flat and thin. Tiny dog ears bilaterally. No nipple grafts. Photos taken with verbal consent. A&P: Gabriela is happy with her results. Dysphoria has improved since the time of her top surgery. Friend here today notes I noticed that Gabriela just looks more.. right, and Gabriela agrees, notes that other friends have said the same thing as well as it just feels more like you. Okay to do very slow, chill activities for the next week and a half before beginning to ramp up a bit more as tolerated. No shoveling snow or driving quite yet. Gabriela will follow up 6 weeks post-op. Causes for returning sooner were discussed. Total time = 20 minutes, spent on the date of encounter doing chart review, history and physical, dressing changes, documentation, patient education, and any further activity as noted above. This note was prepared on behalf of Kenya Jennings MD by Ita Grimes (she/they), a trainedmedical scribe, based on my observations and the provider's statements to me. CTOR CLINICAL PHARMACOLOGY documented in this encounter Nursing Notes * Marva Lehman LPN - 04/05/2025 4:30 PM CST Chief Complaint Patient presents with RECHECK Gabriela, is being seen today for a Drain removal. Vitals: 04/05/25 1703 BP: 120/77 BP Location: Left arm Patient Position: Chair Cuff Size: Adult Large Pulse: 76 Temp: 98.6 ??F (37 ??C) TempSrc: Oral SpO2: 98% Weight: 127 kg (280 lb) Height: 1.765 m (5' 9.5) Body mass index is 40.76 kg/m??. Marva Lehman LPN CTOR CLINICAL PHARMACOLOGY documented in this encounter Plan of Treatment DateTypeDepartmentCare Team (Latest Contact Info)Pefbambzmwl94/29/2025 4:00 PM CSTOffice Visit [facility] [place] [address] [facility] 4th [place] [phone] Kenya Jennings MD [address] [facility] 195 [place], [place] [address]26[address] 05/20/2025 1:00 PM CSTOffice Visit [facility] [address] [facility] [address] [place] [phone] Racheal Ng MD [address] [place], [place] 604[address] [place], [place] [address] 05/25/2025 10:40 AM CSTOffice Visit [facility] Mental [facility] Addiction [place] [phone] [phone] Yael Reaves MD 2450 [place], [place] 1599[address] 08/17/2025 12:15 PM CDTOffice Visit [facility] [address] 3rd [place] [phone] Herber Lopez MD 420 [facility] 98 [place], [place] 1547[address] 01/14/2026 1:40 PM CDTAncillary Procedure [facility] [address] 1st [place] [phone] Yudy Pompa MD [address] [place] [address]39[address] 01/18/2026 1:20 PM CDTOncology Visit [facility] [address] [place] [phone] Yudy Pompa MD [address] [place] [address] [phone] documented as of this encounter Goals GoalPatient Goal TypeAssociated ProblemsRecent ProgressPatient-Stated?Author MYC ECC SURG ENROLL Care PlanMy ECC SURG ENROLLNoSpearFina murray Jdocumented as of this encounter Visit Diagnoses Diagnosis S/P bilateral mastectomy- Primary Acquired absence of breast and nipple Postoperative state Other postprocedural status documented in this encounter Additional Health Concerns Active ProblemsNoted DateDiagnosed DateMyC ECC SURG [id number] Noted TimePHQ-9 Depression Total Score: 11:51 AM CSTdocumented as of this encounter Care Teams Team MemberRelationshipSpecialtyStart DateEnd Date Mamadou Bowie MD [address] [place] [address] 234135 PCP - Bopcobo33/13/[address] [place] [address] ResidentInternal Medicine12/07/14 Trevor Espino MD [address] [place] [address] 985595 MDUrolog05/16/16 Jaci Whitlock APRN VOLCANOLOGY PROFESSOR [address] [place] [address] 037475 Nurse Practitioner - Women's Health12/14/16 Doris Ricci MD [facility] & [address] [address] PhysicianInternal Medicine07/11/20 Yudy Pompa MD [address] [place] [address] 424005 Assigned Cancer Care Provider08/21/20 Mary Carmen Rodriguez MD [address] [place] [address] 98 [place], [place] 935155 MDDermatology11/09/20 Herber Lopez MD [address] [place] [address] MDDermapathology11/09/20 Gloria Elizalde MD [address] [place] [address] Resident12/24/22 Mamadou Bowie MD 909 [place] [address] Assigned PCP03/23/23 Makenzie Romano MD [address] [place] [id number] [place], [place] 336174 MDPsychiatry & Neurology - Child & Adolescent Psychiatry11/08/23 Shani Stephenson MD 420 [place], [place] [address]1995 ResidentPsychiatry11/08/23 Ita Newton Specialty Care Coordinator06/04/24 Kenya Jennings MD [address] [facility] 195 [place] 201805 MDPlastic Surgery06/04/24 Herber Lopez MD 420 [facility] 98 [place] 201805 Assigned Dermatology Provider07/26/24 Сергей Dumont, [facility] Social Worker08/13/24 Kenya Jennings MD [address] [place] [address] Assigned Surgical Provider08/26/24 Carmen Cole PA-C [address] 336185 Assigned Sleep Provider09/25/24 Marita Chisholm [facility] [address] [place] [phone] [place] [address] DnzziqrsisAygwlrmekc41/22/25 Racheal Ng MD [address] [place] [address] Assigned Behavioral Health Bimvzcpq74/23/25 Marita Chisholm [facility] [address] [place] [address] 072084 Assigned MTM Fjhngkirna48/23/25documented as of this encounter
--- OUTSIDE RECORDS SUMMARY | 2025-04-06 09:20 | XMS_ITS | Encounter Summary ---
Author Organization [facility] Address [address] [place] [address] Care Team Providers Care Floor Surfacer Name Role Phone Cindy Ruiz Unavailable [phone] Trevor Espino MD Unavailable [phone] Jaci Whitlock APRN BIOMEDICAL SERVICE ENGINEER Unavailable + Doris Ricci MD Unavailable [phone] Yudy Pompa MD Unavailable [phone] Mray Carmen Rodriguez MD Unavailable + Herber Lopez MD Unavailable [phone] [facility] Unavailable [phone] Mamadou Bowie MD Primary Care Provider [phone] Mamadou Bowie MD Unavailable Makenzie Romano MD Unavailable Shani Stephenson MD Unavailable [phone] Ita Newton Unavailable Unavailable Kenya Jennings MD Unavailable + [phone] Herber Lopez MD Unavailable [phone] Сергей Dumont [facility] Unavailable Unavailable Kenya Jennings MD Unavailable [phone] Carmen Cole PA-C Unavailable [phone] Marita Chisholm [facility] Unavailable [phone] Racheal Ng MD Unavailable Marita Chisholm Kenya [facility] Unavailable [phone] Reason for Visit * ReasonCommentsRECHECK Encounter Details DateTypeDepartmentCare Team (Latest Contact Info)Wbbfkqzzgbh67/02/2025 9:20 AM CSTVirtual Visit [facility] Mental [facility] Addiction [place] [phone] [phone] Angella Lima MD [address] [place] [address] Santy Owens MD [address] [place] [address] Yael Reaves MD [address] [place] [address] Gender dysphoria; PTSD (post-traumatic stress disorder) Social History Tobacco UseTypesPacks/DayYears UsedDateSmoking Tobacco: NeverPassive Smoke Exposure: NeverSmokeless Tobacco: NeverAlcohol UseStandard Drinks/WeekComments Not Currently0 (1 standard drink = 0.6 oz pure alcohol)1 drink every couple of weeksSocial Connection and Isolation PanelAnswerDate RecordedFrequency of Communication with Friends and FamilyNot on file04/02/2024How often do you get together with friends or relatives?Three times a week04/02/2024ttends Lutheran ServicesNot on file04/02/2024ctive Member of Clubs or OrganizationsNot on file 04/02/2024ttends Club or Organization MeetingsNot on file04/02/2024Marital StatusNot on file04/02/2024HQ-2AnswerDate RecordedPHQ-2 Lugkx18105/19/2024[facility] [place] of Occupational Health - Occupational Stress QuestionnaireAnswerDate RecordedDo you feel stress - tense, restless, nervous, or anxious, or unable to sleep at night because yourmind is troubled all the time - these days?Only a bvlnen1504/02/2024Exercise Vital SignAnswerDate RecordedOn average, how many days [...] abandoned building, in an overnight fci, or couch-surfing.)Yes12/20/2024re you worried about losing your [...] ex-partner?No03/23/2025CommentsNoSex and Gender InformationValueDate RecordedSex Assigned at ViuetBorrxf64/12/2021 10:33 PM CDTLegal SexFemale 03/09/2012 3:58 AM CSTGender Fmbmppdtaoxmr93/12/2021 10:33 PM CDTSexual MtumjebgbuqTmqmcrn92/17/2020 4:20 AM CSTdocumented as of this encounter Patient Instructions * Patient Instructions* Yael Revaes MD - 04/06/2025 9:20 AM STUDENT UNION CONSULTANT Med Changes: None. Next Visit : 1 month For crisis resources, please see the information at the end of this document Patient Education Thank you for coming to the [facility]. Lab Testing: If you had lab testing today and your results are reassuring or normal they will be mailed to you or sent through Expreem within 7 days. If the lab tests need quick action we will call you with the results. The phone number we will call with results is # [phone]. If this is not the best numberplease call our clinic and change the number. Medication Refills: If you need any refills please call your pharmacy and they will contact us. Our fax number for refills is [phone]. Three business days of notice are needed for general medication refill requests. Five business days of notice are needed for controlled substance refill requests. If you need to change to a different pharmacy, please contact the new pharmacy directly. The new pharmacy will help you get your medications transferred. Contact Us: Please call [phone] during business hours (8-5:00 M-F). If you have medication related questions after clinic hours, or on the weekend, please call [phone]. Financial Assistance [phone] Medical Records [phone] MENTAL HEALTH CRISIS RESOURCES: For a emergency help, please call 911 or go to the nearest Emergency Department. Emergency Walk-In Options: EmPATH Unit @ [facility] ([place]): [phone] - Specialized mental health emergency area designed to be calming [facility] ([place]): [phone] [facility] ([place]): [phone] [facility]): [phone] [facility] Crisis Information: [place]: [phone] Bin: [phone] Daniel ([place]) - Adult: [phone] Child: [phone] Lizandro - Adult: [phone] Child: [phone] Driver: [phone] List of all [facility] resources: https://pr.gov/dhs/haghsy-ag-vxzyt/adults/health-care/mental-health/resources/cr lakshmi-contacts.jsp National Crisis Information: Crisis Text Line: Text ???[place]?? to 922347 Suicide & Crisis Lifeline: 988 National Suicide Prevention Lifeline: 9-345-972-TALK ( ) For online chat options, visit https://suicidepreventionlifeline.org/chat/ Poison Control Center: Trans Lifeline: - Hotline for transgender people of all ages The Magen Project: - Hotline for LGBT youth For Non-Emergency Support: Fast Tracker: Mental Health & Substance Use Disorder Resources - https://www.fasttrackermn.org/ ENT UNION CONSULTANT ENT UNION CONSULTANT ENT UNION CONSULTANT ENT UNION CONSULTANT documented in this encounter Nursing Notes * Romina Hayes - 04/06/2025 9:20 AM CST Current patient location: [address] [place] [phone] Is the patient currently in the state of [place]? YES Visit mode: VIDEO If the visit is dropped, the patient can be reconnected by:VIDEO VISIT: Send to e-mail at: Will anyone else be joining the visit? NO (If patient encounters technical issues they should call [phone] :[phone]) Are changes needed to the allergy or medication list? No Are refills needed on medications prescribed by this physician? Discuss with provider Rooming Documentation: Questionnaire(s) not pre-assigned Reason for visit: RECHECK Romina Hayes VVF ENT UNION CONSULTANT documented in this encounter Plan of Treatment DateTypeDepartmentCare Team (Latest Contact Info)Learlsucbeo98/29/2025 4:00 PM CSTOffice Visit [facility] [address] 4th [place] [phone] Kenya Jennings MD [address] [place] [address] 195 [place], [place] 531215 05/20/2025 1:00 PM CSTOffice Visit [facility] [address] [facility] [address] [place] [phone] Racheal Ng MD [address] [place], [place] [address] [place], [place] [address] 05/25/2025 10:40 AM CSTOffice Visit [facility] Mental Health & Addiction [address] [address] [phone] Yael Reaves MD [address] [place] [address] 134104 08/17/2025 12:15 PM CDTOffice Visit [facility] D[facility]atology [facility] [place] [address] [place] [address] 3rd [place] [phone] Herber Lopez MD 420 [facility] 98 [place], [place] 5[address]85 01/14/2026 1:40 PM CDTAncillary Procedure [facility] Imaging Center CT Clinic [place] [address] [place] [address] 1st [place] [phone] Yudy Pompa MD [address] [place] [address] 385915 01/18/2026 1:20 PM CDTOncology Visit [facility] [address] [place] [phone] Yudy Pompa MD [address] [place] [address] 838855 documented as of this encounter Goals GoalPatient Goal TypeAssociated ProblemsRecent ProgressPatient-Stated?Author MYC ECC SURG ENROLL Care PlanRolling [facility] – [facility] ECC SURG ENROLLNoSpsmoothtrevor Fina Jdocumented as of this encounter Visit Diagnoses Diagnosis Gender dysphoria PTSD (post-traumatic stress disorder) Posttraumatic stress disorder documented in this encounter Additional Health Concerns Active ProblemsNoted DateDiagnosed DateMy ECC SURG [id number] Noted TimePHQ-9 Depression Total Score: 11:51 AM CSTdocumented as of this encounter Care Teams Team MemberRelationshipSpecialtyStart DateEnd Date Mamadou Bowie MD [address] [place] [address] 524845 PCP - Bdnrned32/13/23 Cindy Ruiz [facility] [address] [place] [address] ResidentInternal Medicine12/07/14 Trevor Espino MD [address] [place] [address] 511015 Urology1 Jaci Whitlock APRN BIOMEDICAL SERVICE ENGINEER [address] [place] [address] Nurse Practitioner - Women's Health12/14/16 Doris Ricci MD [facility] 2000 [place] [address] PhysicianInternal Medicine07/11/20 Yudy Pompa MD [address] [place] [address] 283685 Assigned Cancer Care Provider08/21/20 Mary Carmen Rodriguez MD [address] [place] [address] MDDermatology11/09/20 Herber Lopez MD [address] [place] [address] MDDermapathology11/09/20 Gloria Elizalde MD [address] [place] [address] Resident12/24/22 Mamadou Bowie MD [address] [place] [address] 879635 Assigned PCP03/23/23 Makenzie Romano MD [address] [place] [address] MDPsychiatry & Neurology - Child & Adolescent Psychiatry11/08/23 Shani Stephenson MD [address] [place] [address] ResidentPsychiatry11/08/23 Ita Newton Specialty Care Coordinator06/04/24 Kenya Jennings MD 420 [facility] 195 [place], [place] 431345 MDPlastic Surgery06/04/24 Herber Lopez MD 420 [facility] 98 [place], [place] 786515 Assigned Dermatology Provider07/26/24 Сергей Dumont, [facility] Social Worker08/13/24 Kenya Jennings MD 420 [facility] 195 [place], [place] [address]1945 Assigned Surgical Provider08/26/24 Carmen Cole PA-C [address] [facility] [address] [address] Assigned Sleep Provider09/25/24 Marita Chisholm [facility] [address] [place] [address] 153894 AntmtwsnirTioseukbpt25/22/25 Racheal Ng MD [facility] [address] [address] Assigned Behavioral Health Ndblqdmm82/23/25 Marita Chisholm Rolando [facility] 081164 Assigned MTM Cwycjfzdop38/23/25documented as of this encounter
--- OUTSIDE RECORDS SUMMARY | 2025-04-16 13:00 | XMS_ITS | Encounter Summary ---
Author Organization [facility] Address [address] [place] [id number] Care Team Providers Care Wood Stock Blank Handler Name Role Phone Cindy Ruiz Unavailable [phone] Trevor Espino MD Unavailable [phone] Jaic Whitlock APRN [employer] Unavailable + Doris Ricci MD Unavailable [phone] Yudy Pompa MD Unavailable Mary Carmen Rodriguez MD Unavailable + Herber Lopez MD Unavailable [phone] [facility] Unavailable [phone] Mamadou Bowie MD Primary Care Provider [phone] Mamadou Bowie MD Unavailable Makenzie Romano MD Unavailable [phone] Shani Stephenson MD Unavailable [phone] Ita Newton Unavailable Unavailable Kenya Jennings MD Unavailable + [phone] Herber Lopez MD Unavailable [phone] Сергей Dumont [facility] Unavailable Unavailable Kenya Jeninngs MD Unavailable [phone] Carmen Cole PA-C Unavailable [phone] Marita Chisholm [facility] Unavailable [phone] Racheal Ng MD Unavailable [phone] Marita Chisholm Kenya [facility] Unavailable + [phone] Reason for Visit * ReasonCommentsPhysical Encounter Details DateTypeDepartmentCare Team (Latest Contact Info)Nawdlfrumin11/12/2025 1:[address] [facility] [address] [place] [address] Mamadou Bowie MD [address] [place] [id number] Routine general medical examination at a health care facility (Primary Dx); Mild persistent asthma without complication Social History Tobacco UseTypesPacks/DayYears UsedDateSmoking Tobacco: NeverPassive Smoke Exposure: NeverSmokeless Tobacco: NeverAlcohol UseStandard Drinks/WeekComments Not Currently0 (1 standard drink = 0.6 oz pure alcohol)1 drink every couple of weeksPHQ-2AnswerDate RecordedPHQ-2 Sirue67306/17/2024[facility] [place] [facility] Occupational [facility] - Occupational Stress QuestionnaireAnswerDate RecordedDo you feel stress - tense, restless, nervous, or anxious, or unable to sleep at night because yourmind is troubled all the time - these days?Only a irnsna6204/15/2025 Exercise Vital SignAnswerDate RecordedOn average, how many days per week do you engage in moderate to strenuous exercise (like a brisk walk)?4 days04/15/2025On average, how many minutes do you engage in exercise at this level?20 min 04/15/2025dolescent EducationAnswerDate RecordedGetting School Help NeededNot on file01/29/2023Social ConnectionsAnswerDate RecordedHow often do you feel lonely or isolated from those around you?Rizipd4804/15/2025Food InsecurityAnswer Date RecordedWithin the past 12 months, did you worry that your food would run out before you got money to buy more?No04/15/2025Within the past 12 months, did the food you bought just not last and you didn???t have money to getmore?No 04/15/2025Housing StabilityAnswerDate RecordedDo you have housing? (Housing is defined as stable permanent housing and does not include staying outside in a car, in a tent, in an abandoned building, in an overnight assisted, or couch-surfing.)Yes04/15/2025re you worried about losing your housing?No 04/15/2025Financial Resource StrainAnswerDate RecordedWithin the past 12 months, have you or your family members you live with been unable to get utilities (heat, electricity) when it was really needed?No04/15/2025Transportation Needs AnswerDate RecordedWithin the past 12 months, has lack of transportation kept you from medical appointments, getting your medicines, non-medical meetings or appointments, work, or from getting things that you need?No04/15/2025 Interpersonal SafetyAnswerDate RecordedDo you feel physically and emotionally safe where you currently live?Yes04/16/2025Within the past 12 months, have you been hit, slapped, kicked or otherwise physically hurt by someone?No04/16/2025 Within the past 12 months, have you been humiliated or emotionally abused in other ways by your partner or ex-partner?No04/16/2025CommentsNoSex and Gender InformationValueDate RecordedSex Assigned at MsyeyWaurks72/12/2021 10:33 PM CDTLegal VaaUllmkj24/04/2012 3:58 AM CSTGender Ygegovyncvsks44/12/2021 10:33 PM CDTSexual TpfslwpbjrtJhyrppz69/17/2020 4:20 AM CSTdocumented as of this encounter Last Filed Vital Signs Vital SignReadingTime TakenCommentsBlood Vdefmxuj589/7504/16/2025 1:00 PM ORE MINER Xngtp742404/16/2025 1:00 PM SJYNclyazcvjon37.4 ??C (97.5 ??F)04/16/2025 1:00 PM CSTRespiratory Pwbf830906/17/2024 1:00 PM CSTOxygen Kbsrhgxvtg12%04/16/2025 1:00 PM CSTInhaled Oxygen Concentration--Fxwahe857.4 kg (274 lb 4.8 oz)04/16/2025 1:00 PM XZTXghazb004.5 cm (5' 9.49)04/16/2025 1:00 PM CSTBody Mass Index39.94 04/16/2025 1:00 PM CSTdocumented in this encounter Patient Instructions * Patient Instructions* Mamadou Bowie MD - 04/16/2025 1:00 PM ORE MINER Images from the original note were not included. Patient Education Preventive Care Advice This is general advice we often give to help people stay healthy. Your care team may have specific advice just for you. Please talk to your care team about your own preventive care needs. Lifestyle Exercise at least 150 minutes each week (30 minutes a day, 5 days a week). Do muscle strengthening activities 2 days a week. These help control your weight and prevent disease. No smoking. Wear sunscreen to prevent skin cancer. Take time with family and friends. Have your home tested for radon every 2 to 5 years. Radon is a colorless, odorless gas that can harm your lungs. To learn more, go to www.health.state.la. and search for Radon in Homes. Keep guns unloaded and locked up in a safe place like a safe or gun vault, or, use a gun lock and hide the keys. Always lock away bullets separately. To learn more, visit Mim[employer].Qloud.gov and search for safe gun storage. Nutrition Eat 5 or more servings of fruits and vegetables each day. Try wheat bread, brown rice and whole grain pasta (instead of white bread, rice, and pasta). Get enough calcium and vitamin D. Check the label on foods and aim for 100% of the ELECTRICIAN LOCOMOTIVE (recommendeddaily allowance). Regular exams Have a dental exam and cleaning every 6 months. Older adults: Ask your care team how often to have memory testing. See your health care team every year to talk about: Any changes in your health. Any medicines your care team has prescribed. Preventive care, family planning, and ways to prevent chronic diseases. Shots (vaccines) HPV shots (up to age 26), if you've never had them before. Hepatitis B shots (up to age 59), if you've never had them before. COVID-19 shot: Get this shot when it's due. Flu shot: Get a flu shot every year. Tetanus shot: Get a tetanus shot every 10 years. Pneumococcal, hepatitis A, and RSV shots: Ask your care team if you need these based on your risk. Shingles shot (for age 50 and up). General health tests Diabetes screening: Starting at age 35, Get screened for diabetes at least every 3 years. If you are younger than age 35, ask your care team if you should be screened for diabetes. Cholesterol test: At age 39, start having a cholesterol test every 5 years, or more often if advised. Bone density scan (DEXA): At age 50, ask your care team if you should have this scan for osteoporosis (brittle bones). Hepatitis C: Get tested at least once in your life. Abdominal aortic aneurysm screening: Talk to your doctor about having this screening if you: Have ever smoked; and Are biologically male; and Are between the ages of 65 and 75. STIs (sexually transmitted infections) Before age 24: Ask your care team if you should be screened for STIs. After age 24: Get screened for STIs if you're at risk. You are at risk for STIs (including HIV) if: You are sexually active with more than one person. You don't use condoms every time. You or a partner was diagnosed with a sexually transmitted infection. If you are at risk for HIV, ask about PrEP medicine to prevent HIV. Get tested for HIV at least once in your life, whether you are at risk for HIV or not. Cancer screening tests Cervical cancer screening: If you have a cervix, begin getting regular cervical cancer screening tests at age 21. Most people who have regular screenings with normal results can stop after age 65. Talk about this with your provider. Breast cancer scan (mammogram): If you've ever had breasts, begin having regular mammograms starting at age 40. This is a scan to check for breast cancer. Colon cancer screening: It is important to start screening for colon cancer at age 45. Have a colonoscopy test every 10 years (or more often if you're at risk) Or, ask your provider about stool tests like a FIT test every year or Cologuard test every 3 years. To learn more about your testing options, visit: www.[employer]/198407.pdf. For help making a decision, visit: [email or web address]. Prostate cancer screening test: If you have a prostate and are age 55 to 69, ask your provider if you would benefit from a yearly prostate cancer screening test. Lung cancer screening: If you are a current or former smoker age 50 to 80, ask your care team if ongoing lung cancer screenings are right for you. For informational purposes only. Not to replace the advice of your health care provider. Copyright ?? 2022 [facility]. All rights reserved. Clinically reviewed by the [facility] Transitions Program. RedKLEVER 138190 - REV 10/28. Recovering From Depression: Care Instructions Overview Sticking to your treatment plan is important as you recover from depression. It may take time for your symptoms to get better after you start treatment. Try not to give up if you don't feel better right away. Make sure you keep going to counseling and taking any prescribed medicine if they are partof your treatment plan. Focus on things that can help you feel better, such as being with friends and family. Try to eat healthy foods, be active, and get enough sleep. Take things slowly as you begin to recover. Follow-up care is a velasquez part of your treatment and safety. Be sure to make and go to all appointments, and call your doctor if you are having problems. It's also a good idea to know your test resultsand keep a list of the medicines you take. How can you care for yourself at home? Be realistic If you have a large task to do, break it up into smaller steps you can handle, and just do what youcan. You may want to put off important decisions until your depression has lifted. If you have plans that will have a major impact on your life, such as marriage, divorce, or a job change, try to wait a bit. Talk it over with friends and loved ones who can help you look at the overall picture first. Reaching out to people for help is important. Do not isolate yourself. Let your family and friends help you. Find someone you can trust and confide in, and talk to that person. Be patient, and be kind to yourself. Remember that depression is not your fault and is not something you can overcome with willpower alone. Treatment is important for depression, just like for any other illness. Feeling better takes time, and your mood will improve little by little. Stay active Stay busy and get outside. Take a walk, or try some other light exercise. Talk with your doctor about an exercise program. Exercise can help with mild depression. Go to a movie or concert. Take part in a jain activity or other social gathering. Go to a ball game. Ask a friend to have dinner with you. Take care of yourself Eat healthy foods such as fresh fruits and vegetables, whole grains, and lean protein. If you have lost your appetite, eat small snacks rather than large meals. Avoid using marijuana and other drugs and drinking alcohol. Do not take medicines that have not been prescribed for you. They may interfere with medicines you may be taking for depression, or they may make your depression worse. Take your medicines exactly as they are prescribed. You may start to feel better within 1 to 3 weeks of taking antidepressant medicine. But it can take as many as 6 to 8 weeks to see more improvement. If you have questions or concerns about your medicines, or if you do not notice any improvement by3 weeks, talk to your doctor. Continue to take your medicine after your symptoms improve. Taking your medicine for at least 6 months after you feel better can help keep you from getting depressed again. If this isn't the first time you have been depressed, your doctor may recommend you to take medicine even longer. If you have any side effects from your medicine, tell your doctor. Many side effects are mild and will go away on their own after you have been taking the medicine for a few weeks. Some may last longer. Talk to your doctor if side effects are bothering you too much. You might be able to try a different medicine. Continue counseling. It may help prevent depression from returning, especially if you've had multiple episodes of depression. Talk with your counselor if you are having a hard time attending your sessions or you think the sessions aren't working. Don't just stop going. Get enough sleep. Talk to your doctor if you are having problems sleeping. Avoid sleeping pills unless they are prescribed by the doctor treating your depression. Sleeping pills may make you groggy during the day, and they may interact with other medicine you are taking. If you have any other illnesses, such as diabetes, heart disease, or high blood pressure, make sureto continue with your treatment. Tell your doctor about all of the medicines you take, including those with or without a prescription. Where to get help 24 hours a day, 7 days a week If you or someone you know talks about suicide, self-harm, a mental health crisis, a substance use crisis, or any other kind of emotional distress, get help right away. You can: Call the Suicide and Crisis Lifeline at 988. Text HOME to 445650 to access the Crisis Text Line. Consider saving these numbers in your phone. Go to Strikeface for more information or to chat online. Call 911 anytime you think you may need emergency care. For example, call if: You feel like hurting yourself or someone else. Someone you know has depression and is about to attempt or is attempting suicide. Where to get help 24 hours a day, 7 days a week If you or someone you know talks about suicide, self-harm, a mental health crisis, a substance use crisis, or any other kind of emotional distress, get help right away. You can: Call the Suicide and Crisis Lifeline at 988. Text HOME to 466729 to access the Crisis Text Line. Consider saving these numbers in your phone. Go to Strikeface for more information or to chat online. Call your doctor now or seek immediate medical care if: You hear voices. Someone you know has depression and: Starts to give away possessions. Uses illegal drugs or drinks alcohol heavily. Talks or writes about , including writing suicide notes or talking about guns, knives, or pills. Starts to spend a lot of time alone. Acts very aggressively or suddenly appears calm. Watch closely for changes in your health, and be sure to contact your doctor if: You do not get better as expected. Where can you learn more? Go to https://www.Ohana.net/patiented Enter N529 in the search box to learn more about Recovering From Depression: Care Instructions. Current as of: December 04, 2023 Content Version: 14.6 ?? 0941-2112 [employer]. Care instructions adapted under license by your healthcare professional. If you have questions about a medical condition or this instruction, always ask your healthcare professional. [employer] disclaims any warranty or liability for your use of this information. MINER documented in this encounter Progress Notes * Mamadou Bowie MD - 04/16/2025 1:00 PM CST Images from the original note were not included. Preventive Care Visit [facility] Mamadou Bowie MD, Internal Medicine Apr 16, 2025 Assessment & Plan Routine general medical examination at a health care facility: - General health maintenance visit; overall doing well - Declined vaccines. - Requested upload of advanced healthcare directive to [employer]. Provided visit summary with contactinformation for scheduling testing. - No longer needs Paps s/p hysterectomy and no mammograms s/p top surgery - Colon screening due 2028 - Labs UTD Mild persistent asthma without complication: - Mild persistent asthma with intermittent evening wheeze; discussed increasing Breo dose, but control acceptable on current regimen per Gabriela. - Prescribed maintenance inhaler Breo refills; albuterol refill on file. Ordered repeat lung function test; scheduling to occur in approximately one month to allow further recovery from recent surgery; results to be reviewed when available. Completed asthma action plan reference for chart. Consent was obtained from the patient to use an AI documentation tool in the creation of this note. Depression Screening Follow Up 04/15/2025 9:06 PM PHQ PHQ-9 Total Score 7 Q9: Thoughts of better off /self-harm past 2 weeks Several days F/U: Thoughts of suicide or self-harm Yes F/U: Self harm-plan No F/U: Self-harm action No F/U: Safety concerns No Patient-reported Follow Up Actions Taken Referred patient back to mental health provider Counseling Appropriate preventive services were addressed with this patient via screening, questionnaire, or discussion as appropriate for fall prevention, nutrition, physical activity, Tobacco-use cessation, social engagement, weight loss and cognition. Checklist reviewing preventive services available has been given to the patient. Reviewed patient's diet, addressing concerns and/or questions. Subjective Gabriela is a 59 year old, presenting for the following: Physical 04/16/2025 12:58 PM Additional Questions Roomed by lucía Kraus, 59 years Asthma and postoperative respiratory status - Reports generally good breathing; notes increased wheezing since recent makeda surgery - Uses Breo daily as maintenance inhaler; adapting to routine after delays - Uses albuterol 3-4 times per week in the evening for wheezing; avoids using it within an hour of bedtime due to difficulty sleeping afterward - Identifies fall mold exposure as a trigger that ???makes me wheezy?? ; denies current allergy flare - Denies viral infections worsening breathing - Denies cold air causing breathing problems; notes cold air makes nose run - Had non-specific PFTs in 2020 - History of lung surgery: missing upper half of left lung - Denies shortness of breath limiting daily activity; characterizes episodes as occasional wheeze Edema and kidney-related symptoms - Reports intermittent leg edema recently, ???a little more edema?? but not severe - Describes occasional ???mysterious kidney issues?? with sensation similar to kidney stones but has had extensive testing previously; attributes to [place]???s and over-calcification - Denies hematuria and denies blood in stool Fatigue and vaccine concerns - Reports ongoing fatigue after surgery - Expresses caution with vaccines since long COVID; more interested in pneumonia or shingles vaccines but prefers to wait currently Dermatologic surveillance - Denies changing moles; follows with freight team associate Dr. Lopez and has routine spring appointment scheduled Advance Care Planning Patient states has Health Care Directive and will send to [facility] [employer]. 04/15/2025 General Health How would you rate your overall physical health? (!) FAIR Feel stress (tense, anxious, or unable to sleep) Only a little (!) STRESS CONCERN 04/15/2025 Nutrition Three or more servings of calcium each day? Yes Diet: Other If other, please elaborate: Cancer / inflammation diet with minimal simole carbs and sugars. Fairlyhigh protein with mostly lean red meats. How many servings of fruit and vegetables per day? (!) 2-3 How many sweetened beverages each day? 0-1 04/15/2025 Exercise Days per week of moderate/strenous exercise 4 days Average minutes spent exercising at this level 20 min 04/15/2025 Social Factors Frequency of feeling lonely or isolated Rarely Worry food won't last until get money to buy more No Food not last or not have enough money for food? No Do you have housing? (Housing is defined as stable permanent housing and does not include staying outside in a car, in a tent, in an abandoned building, in an overnight assisted, or couch-surfing.) Yes Are you worried about losing your housing? No Lack of transportation? No Unable to get utilities (heat,electricity)? No 04/15/2025 Fall Risk Fallen 2 or more times in the past year? No Trouble with walking or balance? No Patient-reported 04/15/2025 Dental Dentist two times every year? Yes Today's PHQ-9 Score: 04/15/2025 9:06 PM PHQ-9 SCORE PHQ-9 Total Score MyChart 7 (Mild depression) PHQ-9 Total Score 7 Patient-reported 04/15/2025 Substance Use Alcohol more than 3/day or more than 7/wk No Do you use any other substances recreationally? (!) CANNABIS PRODUCTS Social History Tobacco Use Smoking status: Never Passive exposure: Never Smokeless tobacco: Never Vaping Use Vaping status: Never Used Substance Use Topics Alcohol use: Not Currently Comment: 1 drink every couple of weeks Drug use: No 12/24/2023 LAST [facility]-7 RESULTS 1st degree relative breast or ovarian cancer No Any relative bilateral breast cancer No Any male have breast cancer No Any ONE woman have BOTH breast AND ovarian cancer No Any woman with breast cancer before 50yrs No 2 or more relatives with breast AND/OR ovarian cancer Yes 2 or more relatives with breast AND/OR bowel cancer No 04/15/2025 STI Screening New sexual partner(s) since last STI/HIV test? No History of abnormal Pap smear: Status post hysterectomy with removal of cervix and no history of CIN2 or greater or cervical cancer. Health Maintenance and Surgical History updated. ASCVD Risk Die Keeper The 10-year ASCVD risk score (Dewayne TAVARES, et al., 2019) is: 2.9% Values used to calculate the score: Age: 59 years Clinically relevant sex: Female Is Non- : No Diabetic: No Tobacco smoker: No Systolic Blood Pressure: 121 mmHg Is BP treated: No HDL Cholesterol: 62 mg/dL Total Cholesterol: 218 mg/dL Reviewed and updated as needed this visit by Provider Allergies Meds Problems 10 point ROS of systems including Constitutional, Eyes, Respiratory, Cardiovascular, Gastroenterology, Genitourinary, Integumentary, Muscularskeletal, Psychiatric were all negative except for pertinent positives noted in my HPI. Objective Exam BP 121/75 (BP Location: Right arm, Patient Position: Sitting, Cuff Size: Adult Large) Pulse 83 Temp 97.5 ??F (36.4 ??C) (Temporal) Resp 16 Ht 1.765 m (5' 9.49) Wt 124.4 kg (274 lb 4.8 oz) LMP (LMP Unknown) SpO2 99% BMI 39.94 kg/m?? Estimated body mass index is 39.94 kg/m?? as calculated from the following: Height as of this encounter: 1.765 m (5' 9.49). Weight as of this encounter: 124.4 kg (274 lb 4.8 oz). Physical Exam GENERAL: alert and no distress EYES: Eyes grossly normal to inspection, PERRL and conjunctivae and sclerae normal HENT: ear canals and TM's normal, nose and mouth without ulcers or lesions NECK: no adenopathy, no asymmetry, masses, or scars RESP: lungs clear to auscultation - no rales, rhonchi or wheezes CV: regular rate and rhythm, normal S1 S2, no S3 or S4, no murmur, click or rub, mild peripheral edema in the ankles ABDOMEN: soft, nontender, no hepatosplenomegaly, no masses and bowel sounds normal MS: no gross musculoskeletal defects noted SKIN: no suspicious lesions or rashes NEURO: Normal strength and tone, mentation intact and speech normal PSYCH: mentation appears normal, affect normal/bright Signed Electronically by: Mamadou Bowie MD Answers submitted by the patient for this visit: PHYSICAL on 04/16/2025 1:00 PM with Mamadou Bowie Patient Health Questionnaire (Submitted on 04/15/2025) If you checked off any problems, how difficult have these problems made it for you to do your work,take care of things at home, or get along with other people?: Somewhat difficult PHQ9 TOTAL SCORE: 7 MINER documented in this encounter Plan of Treatment DateTypeDepartmentCare Team (Latest Contact Info)Xjqaysrfspj75/29/2025 4:00 PM CSTOffice Visit [facility] [address] 4th [place] [address] Kenya Jennings MD [address] [place] [address] 05/20/2025 1:00 PM CSTOffice Visit [facility] [address] [place] [phone] Racheal Ng MD 2450 [facility] F282 [place], [place] 66[address] 05/25/2025 10:40 AM CSTOffice Visit [facility] Mental [facility] Addiction [address] [phone] Yael Reaves MD Formerly [facility], 1928–198[address] [place], [place] [address] 08/17/2025 12:15 PM CDTOffice Visit [facility] D[facility]atology [facility] [address] 3rd [place] [phone] Herber Lopez MD 420 [facility] 98 [place], [place] [address]15 01/14/2026 1:40 PM CDTAncillary Procedure [facility] Imaging Center CT Clinic [address] 1st [place] [phone] Yudy Pompa MD [address] [place] [address] 233775 01/18/2026 1:20 PM CDTOncology Visit [facility] [address] [place] [phone] Yudy Pompa MD [address] [place] [address] [phone] NameTypePriorityAssociated DiagnosesOrder SchedulePFT General Lab Testing (Please always keep checked)PFTRoutine Mild persistent asthma without complication Expected: 05/17/2025 (Approximate), Expires: 04/16/2026Pulmonary Function Test PFTRoutine Mild persistent asthma without complication Expected: 05/17/2025 (Approximate), Expires: 04/16/2026documented as of this encounter Goals GoalPatient Goal TypeAssociated ProblemsRecent ProgressPatient-Stated?Author MYC ECC SURG ENROLL Care PlanMy ECC SURG ENROLLNoSpFina horn Jdocumented as of this encounter Visit Diagnoses Diagnosis Routine general medical examination at a health care facility- Primary Mild persistent asthma without complication Unspecified asthma documented in this encounter Additional Health Concerns Active ProblemsNoted DateDiagnosed DateMy ECC SURG [id number] Noted TimePHQ-9 Depression Total Score: 7106/16/2024 9:06 PM CSTdocumented as of this encounter Care Teams Team MemberRelationshipSpecialtyStart DateEnd Date Mamadou Bowie MD [address] [place] [address] PCP - Sxzkxlp46/13/23 Cindy Ruiz H[facility] [place] [place] [address] ResidentInternal Medicine12/07/14 Trevor Espino MD [address] [place] [address] 292815 Urolog05/16/16 Jaci Whitlock APRN STAPLE SIDE LASTER [address] [place] [address] 395 [place], [place] 697795 Nurse Practitioner - Women's Health12/14/16 Doris Ricci MD [facility] 2000 [place] [address] PhysicianInternal Medicine07/11/20 Yudy Pompa MD [address] [place] [address]758 Assigned Cancer Care Provider08/21/20 Mary Carmen Rodriguez MD [address] [place] [address] MDDermatology11/09/20 Herber Lopez MD [address] [place] [address]314 MDDermapathology11/09/20 Gloria Elizalde MD [address] [place] [address] 852505 Resident12/24/22 Mamadou Bowie MD [address] [place] [address] Assigned PCP03/23/23 Makenzie Romano MD [address] [place] [address] 342654 MDPsychiatry & Neurology - Child & Adolescent Psychiatry11/08/23 Shani Stephenson MD [address] [place] [address] ResidentPsychiatry11/08/23 Ita Newton Specialty Care Coordinator06/04/24 Kenya Jennings MD [address] [place] [address] 239675 MDPlastic Surgery06/04/24 Herber Lopez MD [address] [place] [address] 715295 Assigned Dermatology Provider07/26/24 Сергей Dumont, [facility] Social Worker08/13/24 Kenya Jennings MD 420 [facility] 195 [place], [place] 873915 Assigned Surgical Provider08/26/24 Carmen Cole PA-C 6363 [facility] S [facility] 103 [place], [place] [address]8705 Assigned Sleep Provider09/25/24 Marita Chisholm RPH Formerly [facility], 1928–[address] [address] [address] 6[address]15[address] [place], [place] 493434 AsipcbbpvkLztivohydp78/22/25 Racheal Ng MD Formerly [facility], 1928–198[address] [place] [address] 5847282 [place], [place] 127934 Assigned Behavioral Health Aslgdulc62/23/25 Marita Chisholm RPH Formerly [facility], 1928–198[address] [address] 67715[address] [place], [place] 981594 Assigned MTM Fckhrwccat23/23/25documented as of this encounter
--- OUTSIDE RECORDS SUMMARY | 2025-04-23 05:03 | XMS_ITS | Encounter Summary ---
Author Organization [facility] Address [address] [place] [address] Care Team Providers Care Vender Name Role Phone Cindy Ruiz Unavailable [phone] Trevor Espino MD Unavailable [phone] Jaci Whitlock APRN ADDICTION PROFESSIONAL Unavailable + Doris Ricci MD Unavailable Yudy Pompa MD Unavailable [phone] Mary Carmen Rodriguez MD Unavailable + Herber Lopez MD Unavailable [phone] Gloria Elizalde MD Unavailable [phone] Mamadou Bowie MD Primary Care Provider [phone] Mamadou Bowie MD Unavailable Makenzie Romano MD Unavailable [phone] Shani Stephenson MD Unavailable [phone] Ita Newton Unavailable Unavailable Kenya Jennings MD Unavailable [phone] Herber Lopez MD Unavailable [phone] Сергей Dumont [facility] Unavailable Unavailable Kenya Jennings MD Unavailable Carmen Cole PA-C Unavailable [phone] Jesse Arvizu MD Unavailable Marita Chisholm [facility] Unavailable [phone] Encounter Details DateTypeDepartmentCare Team (Latest Contact Info)Yberrglnncv81/18/2025Travel Social History Tobacco UseTypesPacks/DayYears UsedDateSmoking Tobacco: NeverPassive Smoke Exposure: NeverSmokeless Tobacco: NeverAlcohol UseStandard Drinks/WeekComments Not Currently0 (1 standard drink = 0.6 oz pure alcohol)1 drink every couple of weeksSocial Connection and Isolation PanelAnswerDate RecordedFrequency of Communication with Friends and FamilyNot on file04/02/2024How often do you get together with friends or relatives?Three times a week04/02/2024ttends Congregation ServicesNot on file04/02/2024ctive Member of Clubs or OrganizationsNot on file 04/02/2024ttends Club or Organization MeetingsNot on file04/02/2024Marital StatusNot on file04/02/2024HQ-2AnswerDate RecordedPHQ-2 Tripe17405/19/2024[facility] [place] of Occupational Health - Occupational Stress QuestionnaireAnswerDate RecordedDo you feel stress - tense, restless, nervous, or anxious, or unable to sleep at night because yourmind is troubled all the time - these days?Only a laxxto0204/02/2024Exercise Vital SignAnswerDate RecordedOn average, how many days [...] abandoned building, in an overnight retirement, or couch-surfing.)Yes12/20/2024re you worried about losing your [...] ex-partner?No03/23/2025CommentsNoSex and Gender InformationValueDate RecordedSex Assigned at XqpvlXmcolu62/12/2021 10:33 PM CDTLegal SexFemale 03/09/2012 3:58 AM CSTGender Cubqsdjddgnkj08/12/2021 10:33 PM CDTSexual DxhpptjwobaNilxzuy37/17/2020 4:20 AM CSTdocumented as of this encounter Plan of Treatment DateTypeDepartmentCare Team (Latest Contact Info)Tioytkfrkoh13/29/2025 4:00 PM CSTOffice Visit [facility] [place] [address] [facility] 4th [place] [address] Kenya Jennings MD 420 [facility] 195 [place] [address] 05/20/2025 1:00 PM CSTOffice Visit [facility] [address] [facility] [address] [place] [address] Racheal Ng MD [address] [place] [address] 05/25/2025 10:40 AM CSTOffice Visit [facility] Mental Health & Addiction [facility] 2nd [facility] F[address] [phone] Yael Reaves MD 2450 [place], [place] 6[address]214 08/17/2025 12:15 PM CDTOffice Visit [facility] D[facility]atology [facility] [place] [address] [place] [address] 3rd [place] [phone] Herber Lopez MD 420 [facility] 98 [place], [place] [address]255 01/14/2026 1:40 PM CDTAncillary Procedure [facility] Imaging Center CT Clinic [place] [address] [place] [address] 1st [place] [phone] Yudy Pompa MD [address] [place] [address] [phone] 01/18/2026 1:20 PM CDTOncology Visit [facility] [address] [place] [phone] Yudy Pompa MD [address] [place] [address] 543525 documented as of this encounter Goals GoalPatient Goal TypeAssociated ProblemsRecent ProgressPatient-Stated?Author MYC ECC SURG ENROLL Care PlanMyC ECC SURG ENROLLNoSpearFina murray Jdocumented as of this encounter Visit Diagnoses Not on filedocumented in this encounter Additional Health Concerns Active ProblemsNoted DateDiagnosed DateMyC ECC SURG [id number] Noted TimePHQ-9 Depression Total Score: 11:51 AM CSTdocumented as of this encounter Care Teams Team MemberRelationshipSpecialtyStart DateEnd Date Mamadou Bowie MD 909 [place], [place] 215825 PCP - Ghqxbvs81/13/23 [address] Ru[address] [place], [place] 882360 ResidentInternal Medicine12/07/14 Trevor Espino MD [address] [place] [address] MDUrolog05/16/16 Jaci Whitlock APRN CNP [address] [place] [address] Nurse Practitioner - Women's Health12/14/[address] [facility] & [address] [address] PhysicianInternal Medicine07/11/20 Yudy Pompa MD [address] [place] [address] Assigned Cancer Care Provider08/21/20 Mary Carmen Rodriguez MD 420 [facility] 98 [place] [address] MDDermatology11/09/20 Herber Lopez MD [address] [place] [address] 98 [place], [place] [phone] MDDermapathology11/09/20 Gloria Elizalde MD [address] [place] 137365 Resident12/24/22 Mamadou Bowie MD 909 [place], [place] 132575 Assigned PCP03/23/23 Makenzie Romano MD 2450 [facility] 56 [place] [address] MDPsychiatry & Neurology - Child & Adolescent Psychiatry11/08/23 Shani Stephenson MD 420 [place], [place] 954395 ResidentPsychiatry11/08/23 Ita Newton Specialty Care Coordinator06/04/24 Kenya Jennings MD 420 [facility] 195 [place] [address] MDPlastic Surgery06/04/24 Herber Lopez MD 420 [facility] 98 [place], [place] 378835 Assigned Dermatology Provider07/26/24 Сергей Dumont [facility] Social Worker08/13/24 Kenya Jennings MD 420 [facility] 195 [place] [address] Assigned Surgical Provider08/26/24 Carmen Cole PA-C 6363 [facility] [address] 630175 Assigned Sleep Provider09/25/24 Jesse Arvizu MD 5775 [place], [place] 480276 Assigned Behavioral Health Provider12/26/2510 Marita Chisholm [facility] [address] [address] SifowgyajyHuimoiwkou41/22/25documented as of this encounter
--- OUTSIDE RECORDS SUMMARY | 2025-04-23 05:03 | XMS_ITS | Clinical Summary ---
Author Organization [facility] Address [address] [place] [address] Care Team Providers Care Passenger Service Agent Name Role Phone Unassigned, Provider Primary Care [...] for each transition of care or referral. [facility] Allergies Active AllergyReactionsCriticalityNoted DateCommentsSulfa AntibioticsRash 08/31/2014 Medications MedicationSigDispense QuantityRefillsLast FilledStart DateEnd DateStatus Marlow-3 Fatty Acids (FISH OIL OR) 2 times dailyActive buPROPion (WELLBUTRIN XL) 300 MG 24 hour release tablet Take 300 mg by mouth.02/18/2017Active Multiple Vitamins-Minerals (MULTIVITAL OR) Take 1 Cap by mouth.Active prazosin (MINIPRESS) 1 MG capsule Take 2 mg by mouth.02/18/2017Active venlafaxine (EFFEXORXR) 37.5 MG 24 hour release capsule Take once daily02/18/2017Active Active Problems ProblemNoted DateDiagnosed DateBCNS (basal cell nevus syndrome)03/15/2017 Social History Tobacco UseTypesPacks/DayYears UsedDateSmoking Tobacco: Never Assessed CommentsUnknownSex and Gender InformationValueDate RecordedSex Assigned at Not on fileLegal KiiUetxlq79/10/2012 5:18 AM CDTGender IdentityNot on fileSexual OrientationNot on file Plan of Treatment Health MaintenanceDue DateLast DoneCommentsCervical Cancer Screening Due 1964Colon Cancer Screening Plan Due1964Hep C Screening (Preventive Services)1965 8162Rtiyzbcrk34/19/1965HIV Screening (Preventive Services) 1980Adult Preventive Visit1982DTaP/Tdap/Td Vaccine (1 - Tdap) 05/23/19837630Ticinmledsy72/18/2010Pneumococcal Vaccine 50+ Yrs (1 of 1 - PCV) 2014Zoster/Shingles Vaccine (1 of 2)2014COVID-19 Vaccine (1 - 2024- season)2025Influenza Vaccine (#1)2025RSV Vaccine (1 - 1-dose 75+ series)2039HepA VaccineAged OutNo longer eligible based on patient's age to complete this topicHepB VaccineAged OutNo longer eligible based on patient's age to complete this topicHib VaccineAged OutNo longer eligible based on patient's age to complete this topicIPV (Polio) VaccineAged OutNo longer eligible based on patient's age to complete this topicMCV4 VaccineAged OutNo longer eligible based on patient's age to complete this topicMeningococcal B VaccineAged OutNo longer eligible based on patient's age to complete this topic Care Teams Team MemberRelationshipSpecialtyStart DateEnd Date Unassigned, Provider [address] [place] [address]356 PCP - General06/10/01
--- OUTSIDE RECORDS SUMMARY | 2025-04-23 05:03 | XMS_ITS | Clinical Summary ---
Author Organization [facility] Address [address] [place] [address] Care Team Providers Care Merit System Director Name Role Phone Zenia Jon MD Primary Care Provider [phone] Allergies Active AllergyReactionsCriticalityNoted DateCommentsSulfa (Sulfonamide Antibiotics)Rash08/31/2014 Medications MedicationSigDispense QuantityRefillsLast FilledStart DateEnd DateStatus buPROPion (WELLBUTRIN XL) 300 mg Extended-Release tablet Take 1 tablet by mouth every morning.ctive LORazepam (ATIVAN) 0.5 mg tab Take 1 tablet by mouth once daily.ctive albuterol HFA (VENTOLIN HFA) 90 mcg/actuation inhaler Indications:URI, acuteInhale 2 Puffs by mouth 4 times daily if needed. Fill upon request 1 Inhaler Active prazosin (MINIPRESS) 1 mg capsule 3 total zfpjc830Active venlafaxine (EFFEXOR XR) 37.5 mg Extended-Release capsule Take once daily01/21/2017Active Active Problems ProblemNoted DateDiagnosed XiszOkzjnosncm85/29/2015 Overview (09/01/2014): Followed by [facility], Dr. Davis. PTSD (post-traumatic stress disorder)09/01/2014Nevoid basal cell carcinoma bwxfidvk41/29/2015Obesity (BMI 30-39.9)09/01/2014Kidney wcypqsko01/29/2015Skin cancer of face09/01/2014 Overview (09/01/2014): Multiple removals by Dr. Cedillo of Dermatology. Family History Medical HistoryRelationNameCommentsHeart DiseaseFatherHypertensionFatherHeart DiseaseMotherHypertensionMotherRelationNameStatusCommentsFatherDeceased06/2014 MotherAlive Social History Tobacco UseTypesPacks/DayYears UsedDateSmoking Tobacco: NeverSmokeless Tobacco: Never Tobacco Cessation:Counseling Given: Yes Alcohol UseStandard Drinks/WeekCommentsNo0 (1 standard drink = 0.6 oz pure alcohol)CommentsNoSex and Gender InformationValueDate RecordedSex Assigned at BirthNot on fileLegal AycPbadpq59/14/2013 5:27 AM CSTGender Identity Not on fileSexual OrientationNot on fileOccupationIndustryJob Start DateJob End DatewoodworkerNot on fileNot on fileNot on filewriterNot on fileNot on fileNot on file Last Filed Vital Signs Vital SignReadingTime TakenCommentsBlood Rgbczzgz674/8204/15/2017 8:34 AM CAPPING MACHINE OPERATOR Tyyca859504/15/2017 8:34 AM AWCMvacmzcrqim61.3 ??C (99.2 ??F)04/15/2017 8:34 AM CSTRespiratory Utrq9634 9:38 AM CDTOxygen Seguwvkpvv15%04/15/2017 8:34 AM CSTInhaled Oxygen Concentration--Fvfmne556.7 kg (283 lb 12.8 oz)04/15/2017 8:34 AM OYBJwrykt639.8 cm (5' 10)04/15/2017 8:34 AM CSTBody Mass Index40.72 04/15/2017 8:34 AM CAPPING MACHINE OPERATOR Plan of Treatment Health MaintenanceDue DateLast DoneCommentsHIV for age 15-Hepatitis C screening for age 18-7905/23/1982Colonoscopy through age Lipids for age 45-Mammogram for age 45-Pneumococcal series for age 50+ (1 of 1 - PCV)2014Zoster (shingles) series for age 50+ (1 of 2) 2014Depression screening for age 12+, 03/27/2016, 09/15/2015BMI (ht and wt on same day) for age 18+, 09/21/2016, 09/15/2015Tetanus nfwsaoa47COVID-19 vaccine series (2024- season)504/, 07/30/2020Influenza Vaccine (#1) 2025RSV vaccine for adults or (1 - 1-dose 75+ series)2039 Hepatitis B series for 19+Aged OutNo longer eligible based on patient's age to complete this topic Care Teams Team MemberRelationshipSpecialtyStart DateEnd Date Zenia Jon MD PCP - GeneralFamily Nwtvtctr41/11/17
--- OUTSIDE RECORDS SUMMARY | 2025-04-23 05:03 | XMS_ITS | Encounter Summary ---
Author Organization [facility] Address [address] [place] [address] Care Team Providers Care Copper Plate Printer Name Role Phone Cindy Ruiz Unavailable Trevor Espino MD Unavailable [phone] Jaci Whitlock APRN CHERRY PICKER OPERATOR Unavailable + Doris Ricci MD Unavailable Yudy Pompa MD Unavailable [phone] Mary Carmen Rodriguez MD Unavailable + Herber Lopez MD Unavailable [phone] Gloria Elizalde MD Unavailable [phone] Mamadou Bowie MD Primary Care Provider [phone] Mamadou Bowie MD Unavailable Makenzie Romano MD Unavailable [phone] Shani Stephenson MD Unavailable [phone] Ita Newton Unavailable Unavailable Kenya Jennings MD Unavailable Herber Lopze MD Unavailable [phone] Сергей Dumont [facility] Unavailable Unavailable Kenya Jennings MD Unavailable [phone] Carmen Cole PA-C Unavailable [phone] Jesse Arvizu MD Unavailable Marita Chisholm [facility] Unavailable [phone] Encounter Details DateTypeDepartmentCare Team (Latest Contact Info)Reoxabosdxv89/15/2025Travel Social History Tobacco UseTypesPacks/DayYears UsedDateSmoking Tobacco: NeverPassive [...] MeetingsNot on file04/02/2024Marital StatusNot on file04/02/2024HQ-2AnswerDate RecordedPHQ-2 Ghggo06805/19/2024[facility] [place] of Occupational Health - Occupational Stress QuestionnaireAnswerDate RecordedDo you feel stress - tense, restless, nervous, or anxious, or unable to sleep at night because yourmind is troubled all the time - these days?Only a luphjc2004/02/2024Exercise Vital SignAnswerDate RecordedOn average, how many days [...] abandoned building, in an overnight snf, or couch-surfing.)Yes12/20/2024re you worried about losing your [...] ex-partner?No03/19/2023CommentsNoSex and Gender InformationValueDate RecordedSex Assigned at WzifuOdhcmo09/12/2021 10:33 PM CDTLegal SexFemale 03/09/2012 3:58 AM CSTGender Cvvehqywvlusg30/12/2021 10:33 PM CDTSexual AakrnfsvkukTijelgt41/17/2020 4:20 AM CSTdocumented as of this encounter Plan of Treatment DateTypeDepartmentCare Team (Latest Contact Info)Lmgjfsqdhwy07/29/2025 4:[address] [facility] [place] 9[address] [facility] [address] 4th [place] [address] Kenya Jennings MD 420 [facility] 195 [place] [address] 05/20/2025 1:00 PM CSTOffice Visit [facility] 5775 [facility] 255 [place] [address] Racheal Ng MD [address] [place] [address] 05/25/2025 10:[address] [facility] Mental Health & Addiction [facility] 2nd [facility] F275 [address] [phone] Yael Reaves MD 2450 [place], [place] 733944 08/17/2025 12:[address] [facility] D[facility]atology [facility] [place] [address] [place] [address] 3rd [place] [phone] Herber Lopez MD 420 [facility] 98 [place], [place] 596455 01/14/2026 1:[address] [facility] CT Clinic [place] [address] [place] [address] 1st [place] [phone] Yudy Pompa MD [address] [place] [address] [phone] 01/18/2026 1:[address] [facility] [address] [place] [phone] Yudy Pompa MD [address] [place] [address] 769245 documented as of this encounter Goals GoalPatient Goal TypeAssociated ProblemsRecent ProgressPatient-Stated?Author MYC ECC SURG ENROLL Care PlanMyC ECC SURG ENROLLNoSpearFina murraydocumented as of this encounter Visit Diagnoses Not on filedocumented in this encounter Additional Health Concerns Active ProblemsNoted DateDiagnosed DateMyC ECC SURG JXNYPG2309/11/2024ssessment Noted TimePHQ-9 Depression Total Score: 11:51 AM CSTdocumented as of this encounter Care Teams Team MemberRelationshipSpecialtyStart DateEnd Mamadou Bowie MD 909 [place], [place] 939165 PCP - Vjahhvy52/13/23 [address] Ruiz [address] [place], [place] [address] ResidentInternal Medicine12/07/14 Trevor Espino MD [address] [place] [address] Urolog05/16/16 Jaci Whitlock APRN CNP [address] [place] [address] Nurse Practitioner - Women's Health12/14/16 Doris Ricci MD [facility] & [address] [address] PhysicianInternal Medicine07/11/20 Yudy Pompa MD [address] [place] [address] Assigned Cancer Care Provider08/21/20 Mary Carmen Rodriguez MD 420 [facility] 98 [place] [address] MDDermatology11/09/20 Herber Lopez MD [address] [place] [address] 98 [place], [place] 6[address]65 MDDermapathology11/09/20 Gloria Elizalde MD 420 [place], [place] 404575 Resident12/24/22 Mamadou Bowie MD 909 [place], [place] 423225 Assigned PCP03/23/23 Makenzie Romano MD 2450 [facility] 56 [place] [address] MDPsychiatry & Neurology - Child & Adolescent Psychiatry11/08/23 Shani Stephenson MD 420 [place], [place] 734895 ResidentPsychiatry11/08/23 Ita Newton Specialty Care Coordinator06/04/24 Kenya Jennings MD 420 [facility] 195 [place] [address] MDPlastic Surgery06/04/24 Herber Lopez MD 420 [facility] 98 [place], [place] 515685 Assigned Dermatology Provider07/26/24 Сергей Dumont [facility] Social Worker08/13/24 Kenya Jennings MD 420 [facility] 195 [place] [address] Assigned Surgical Provider08/26/24 Carmen Cole PA-C 6363 [facility] [address] [place] [address] [place] 8[address]155 Assigned Sleep Provider09/25/24 Jesse Arvizu MD 5775 [place], [place] 350876 Assigned Behavioral Health Provider12/26/2510 Marita Chisholm [facility] [address] [address] RvrjuimpsfByaagcwska42/22/25documented as of this encounter
--- OUTSIDE RECORDS SUMMARY | 2025-04-23 05:03 | XMS_ITS | Encounter Summary ---
Author Organization [facility] Address [address] [place] [address] Care Team Providers Care Shell Grader Name Role Phone Cindy Ruiz Unavailable [phone] Trevor Espino MD Unavailable [phone] Jaci Whitlock APRN WELDING MANAGER Unavailable + Doris Ricci MD Unavailable Yudy Pompa MD Unavailable [phone] Mary Carmen Rodriguez MD Unavailable + Herber Lopez MD Unavailable +[phone] Gloria Elizalde MD Unavailable [phone] Mamadou Bowie MD Primary Care Provider [phone] Mamadou Bowie MD Unavailable Makenzie Romano MD Unavailable [phone] Shani Stephenson MD Unavailable [phone] Ita Newton Unavailable Unavailable Kenya Jennings MD Unavailable [phone] Herber Lopez MD Unavailable +[phone] Сергей Dumont [facility] Unavailable Unavailable Kenya Jennings MD Unavailable [phone] Carmen Cole PA-C Unavailable [phone] Jesse Arvizu MD Unavailable Marita Chisholm [facility] Unavailable [phone] Encounter Details DateTypeDepartmentCare Team (Latest Contact Info)Znuvetqwgmy25/14/2025Travel Social History Tobacco UseTypesPacks/DayYears UsedDateSmoking Tobacco: NeverPassive Smoke Exposure: NeverSmokeless Tobacco: NeverAlcohol UseStandard Drinks/WeekComments Not Currently0 (1 standard drink = 0.6 oz pure alcohol)1 drink every couple of weeksSocial Connection and Isolation PanelAnswerDate RecordedFrequency of Communication with Friends and FamilyNot on file04/02/2024How often do you get together with friends or relatives?Three times a week04/02/2024ttends Sikhism ServicesNot on file04/02/2024ctive Member of Clubs or OrganizationsNot on file 04/02/2024ttends Club or Organization MeetingsNot on file04/02/2024Marital StatusNot on file04/02/2024HQ-2AnswerDate RecordedPHQ-2 Dwajs45605/19/2024[facility] [place] of Occupational Health - Occupational Stress QuestionnaireAnswerDate RecordedDo you feel stress - tense, restless, nervous, or anxious, or unable to sleep at night because yourmind is troubled all the time - these days?Only a cjczxr7704/02/2024Exercise Vital SignAnswerDate RecordedOn average, how many days [...] ex-partner?No03/19/2023CommentsNoSex and Gender InformationValueDate RecordedSex Assigned at IzbtnNtrctb66/12/2021 10:33 PM CDTLegal SexFemale 03/09/2012 3:58 AM CSTGender Ripmawwiuuupn07/12/2021 10:33 PM CDTSexual JenzitoatxtAngjbyx37/17/2020 4:20 AM CSTdocumented as of this encounter Plan of Treatment DateTypeDepartmentCare Team (Latest Contact Info)Lzdfdxmjnth17/29/2025 4:00 PM CSTOffice Visit [facility] [place] [address] [facility] [address] 4th [place] [address] Kenya Jennings MD [address] [facility] 195 [place] [address] 05/20/2025 1:00 PM CSTOffice Visit [facility] [address] [facility] 255 [place] [address] Racheal Ng MD [address] [place] [address] 05/25/2025 10:40 AM CSTOffice Visit [facility] Mental Health & Addiction [facility] 2nd [facility] F[address] [phone] Yael Reaves MD 2450 [place], [place] 782744 08/17/2025 12:15 PM CDTOffice Visit [facility] Dermatology [facility] [place] [address] [place] [address] 3rd [place] [phone] Herber Lopez MD 420 [facility] 98 [place], [place] 2[address]95 01/14/2026 1:40 PM CDTAncillary Procedure [facility] Imaging Center CT Clinic [place] [address] [place] [address] 1st [place] [phone] Yudy Pompa MD [address] [place] [address] [phone] 01/18/2026 1:20 PM CDTOncology Visit [facility] [address] [place] [phone] Yudy Pompa MD [address] [place] [address] 851545 documented as of this encounter Goals GoalPatient Goal TypeAssociated ProblemsRecent ProgressPatient-Stated?Author MYC ECC SURG ENROLL Care PlanMyC ECC SURG ENROLLNoSpearFina murraydocumented as of this encounter Visit Diagnoses Not on filedocumented in this encounter Additional Health Concerns Active ProblemsNoted DateDiagnosed DateMyC ECC SURG VNZRIK4809/11/2024ssessment Noted TimePHQ-9 Depression Total Score: 11:51 AM CSTdocumented as of this encounter Care Teams Team MemberRelationshipSpecialtyStart DateEnd Mamadou Bowie MD 909 [place], [place] 165045 PCP - Rujolsa96/13/[address] [place], [place] 459770 ResidentInternal Medicine12/07/14 Trevor Espino MD [address] [place] [address] Urolog05/16/16 Jaci Whitlock APRN CNP [address] [place] [address] Nurse Practitioner - Women's Health12/14/16 oDris Ricci MD [facility] & [address] [address] PhysicianInternal Medicine07/11/20 Yudy Pompa MD [address] [place] [address] Assigned Cancer Care Provider08/21/20 Mary Carmen Rodriguez MD [address] [facility] 98 [place] [address] MDDermatology11/09/20 Herber Lopez MD [address] [place] [address] 98 [place], [place] 397125 MDDermapathology11/09/20 Gloria Elizalde MD 420 [place], [place] 401905 Resident12/24/22 Mamadou Bowie MD 909 [place], [place] 900255 Assigned PCP03/23/23 Makenzie Romano MD 2450 [facility] 56 [place] [address] MDPsychiatry & Neurology - Child & Adolescent Psychiatry11/08/23 Shani Stephenson MD 420 [place], [place] 094745 ResidentPsychiatry11/08/23 Ita Newton Specialty Care Coordinator06/04/24 Kenya Jennings MD [address] [facility] 195 [place] [address] MDPlastic Surgery06/04/24 Herber Lopez MD 420 [facility] 98 [place], [place] 877705 Assigned Dermatology Provider07/26/24 Сергей Dumont [facility] Social Worker08/13/24 Kenya Jennings MD [address] [facility] 195 [place] [address] Assigned Surgical Provider08/26/24 Carmen Cole PA-C 6363 [facility] [place] [address] [place] 29[address]15 Assigned Sleep Provider09/25/24 Jesse Arvizu MD 5775 [place], [place] 578166 Assigned Behavioral Health Provider12/26/2510 Marita Chisholm [facility] [address] [address] PenjdvnlezIsbylwxxsu98/22/25documented as of this encounter
--- OUTSIDE RECORDS SUMMARY | 2025-04-23 05:03 | XMS_ITS | Encounter Summary ---
Author Organization [facility] Address [address] [place] [address] Care Team Providers Care Petal Shaper Hand Name Role Phone Cindy Ruiz Unavailable Trevor Espino MD Unavailable [phone] Jaci Whitlock APRN CONCESSION CASHIER Unavailable + Doris Ricci MD Unavailable Yudy Pompa MD Unavailable [phone] Mary Carmen Rodriguez MD Unavailable + Herber Lopez MD Unavailable [phone] Gloria Elizalde MD Unavailable [phone] Mamadou Bowie MD Primary Care Provider [phone] Mamadou Bowie MD Unavailable Makenzie Romano MD Unavailable [phone] Shani Stephenson MD Unavailable [phone] Ita Newton Unavailable Unavailable Kenya Jennings MD Unavailable Herber Lopez MD Unavailable [phone] Сергей Dumont [facility] Unavailable Unavailable Kenya Jennings MD Unavailable Carmen Cole PA-C Unavailable [phone] Jesse Arvizu MD Unavailable Marita Chisholm [facility] Unavailable Racheal Ng MD Unavailable [phone] Marita Chisholm [facility] Unavailable + [phone] Encounter Details DateTypeDepartmentCare Team (Latest Contact Info)Sjfyfoppiqa38/07/2025Results Follow-Up [facility] Internal Medicine [address] 4th [place] [address] Mamadou Bowie MD [address] [place] [address] Dx: Prediabetes (Primary Dx) Social History Tobacco UseTypesPacks/DayYears UsedDateSmoking Tobacco: NeverPassive Smoke Exposure: NeverSmokeless Tobacco: NeverAlcohol UseStandard Drinks/WeekComments Not Currently0 (1 standard drink = 0.6 oz pure alcohol)1 drink every couple of weeksSocial Connection and Isolation PanelAnswerDate RecordedFrequency of Communication with Friends and FamilyNot on file04/02/2024How often do you get together with friends or relatives?Three times a week04/02/2024ttends Pentecostalism ServicesNot on file04/02/2024ctive Member of Clubs or OrganizationsNot on file 04/02/2024ttends Club or Organization MeetingsNot on file04/02/2024Marital StatusNot on file04/02/2024HQ-2AnswerDate RecordedPHQ-2 Jckvc81405/12/2024[facility] [place] of Occupational Health - Occupational Stress QuestionnaireAnswerDate RecordedDo you feel stress - tense, restless, nervous, or anxious, or unable to sleep at night because yourmind is troubled all the time - these days?Only a kljcrc4504/02/2024Exercise Vital SignAnswerDate RecordedOn average, how many days per week do you engage in moderate to strenuous exercise (like a brisk walk)?5 days04/02/2024On average, how many minutes do you engage in exercise at this level?40 min11/28/2024Adolescent EducationAnswerDate RecordedGetting School Help NeededNot on file01/29/2023Food [...] abandoned building, in an overnight detention, or couch-surfing.)Yes12/20/2024re you worried about losing your [...] ex-partner?No03/19/2023CommentsNoSex and Gender InformationValueDate RecordedSex Assigned at OwaymLlqvmn36/12/2021 10:33 PM CDTLegal SexFemale 03/09/2012 3:58 AM CSTGender Axgoahhoatlmy56/12/2021 10:33 PM CDTSexual BcwzsszknayFkvjtmp35/17/2020 4:20 AM CSTdocumented as of this encounter Plan of Treatment DateTypeDepartmentCare Team (Latest Contact Info)Uwnrqgzyczz99/29/2025 4:00 PM CSTOffice Visit [facility] Plastic [facility]ive Surgery [address] [place] [phone] Kenya Jennings MD 420 [facility] 195 [place], [place] [address] 05/20/2025 1:00 PM CSTOffice Visit [facility] [address] [facility] [address] [place] [phone] Racheal Ng MD 2450 [facility] F282 [place], [place] [address] 05/25/2025 10:40 AM CSTOffice Visit [facility] Mental Health & Addiction [address] F[address] [phone] Yael Reaves MD [address] [place] [address] [phone] 08/17/2025 12:15 PM CDTOffice Visit [facility] Dermatology Clinic [address] 3rd [place] [phone] Herber Lopez MD 420 [facility] 98 [place], [place] 2[address]95 01/14/2026 1:40 PM CDTAncillary Procedure [facility] Imaging Center CT Clinic [address] 1st [place] [phone] Yudy Pompa MD [address] [place] [address] 909715 01/18/2026 1:20 PM CDTOncology Visit [facility] [address] [place] [phone] Yudy Pompa MD [address] [place] [address] [phone] documented as of this encounter Goals GoalPatient Goal TypeAssociated ProblemsRecent ProgressPatient-Stated?Author MYC ECC SURG ENROLL Care PlanMyC ECC SURG ENROLLNoSpFina horn Jdocumented as of this encounter Visit Diagnoses Diagnosis Prediabetes- Primary Other abnormal glucose documented in this encounter Additional Health Concerns Active ProblemsNoted DateDiagnosed DateMy ECC SURG SEHKRX0509/11/2024ssessment Noted TimePHQ-9 Depression Total Score: 11:51 AM CSTdocumented as of this encounter Care Teams Team MemberRelationshipSpecialtyStart DateEnd Date Mamadou Bowie MD [address] [place] [address] [phone] PCP - Qczemhs36/13/23 Cindy Ruiz [address] [place], [place] [address] ResidentInternal Medicine12/07/14 Trevor Espino MD [address] [place] [address] 263415 MDUrolog05/16/16 Jaci Whitlock APRN CONCESSION CASHIER [address] [place] [address] 395 [place], [place] [phone] Nurse Practitioner - Women's Health12/14/16 Doris Ricci MD [facility] 1999 [place] [address] PhysicianInternal Medicine07/11/20 Yudy Pompa MD [address] [place] [address] [phone] Assigned Cancer Care Provider08/21/20 Mary Carmen Rodriguez MD [address] [place] [address] 405645 MDDermatology11/09/20 Herber Lopez MD [address] [place] [address] 503575 MDDermapathology11/09/20 Gloria Elizalde MD [address] [place] [address] 887345 Resident12/24/22 Mamadou Bowie MD [address] [place], [place] 334775 Assigned PCP03/23/23 Makenzie Romano MD [address] [place] [address] MDPsychiatry & Neurology - Child & Adolescent Psychiatry11/08/23 Shani Stephenson MD [address] [place] [address] 084285 ResidentPsychiatry11/08/23 Ita Newton Specialty Care Coordinator06/04/24 Kenya Jennings MD [address] [place] [address] MDPlastic Surgery06/04/24 Herber Lopez MD [address] [place] [address] 391515 Assigned Dermatology Provider07/26/24 Сергей Dumont, [facility] Social Worker08/13/24 Kenya Jennings MD 420 [facility] 195 [place] [address] Assigned Surgical Provider08/26/24 Carmen Cole PA-C [address] [facility] 103 [place], [place] [address]025 Assigned Sleep Provider09/25/24 Jesse Arvizu MD 5775 [place] [address] Assigned Behavioral Health Provider12/26/2510 Marita Chisholm [facility] [address] [place] [address]954 BcvztdixjaWmvzosjncz20/22/25 Racheal Ng MD [facility] [address] [phone] Assigned Behavioral Health Eknehtrm73/23/25 Marita Chisholm RPH [address] [place] [address] [phone] Assigned MTM Oxbfjtqutj10/23/25documented as of this encounter
--- OUTSIDE RECORDS SUMMARY | 2025-04-23 05:03 | XMS_ITS | Encounter Summary ---
Author Organization [facility] Address [address] [place] [address] Care Team Providers Care Water Treatment Technician Name Role Phone Cindy Ruiz Unavailable [phone] Trevor Espino MD Unavailable [phone] Jaci Whitlock APRN COUNCILMAN Unavailable + Doris Ricci MD Unavailable Yudy Pompa MD Unavailable [phone] Mary Carmen Rodriguez MD Unavailable + Herber Lopez MD Unavailable [phone] Gloria Elizalde MD Unavailable [phone] Mamadou Bowie MD Primary Care Provider [phone] Mamadou Bowie MD Unavailable Makenzie Romano MD Unavailable [phone] Shani Stephenson MD Unavailable [phone] Ita Newton Unavailable Unavailable Kenya Jennings MD Unavailable Herber Lopez MD Unavailable +[phone] Сергей Dumont [facility] Unavailable Unavailable Kenya Jennings MD Unavailable [phone] Carmen Cole PA-C Unavailable [phone] Jesse Arvizu MD Unavailable Marita Chisholm [facility] Unavailable [phone] Encounter Details DateTypeDepartmentCare Team (Latest Contact Info)Jjhdhjvgiiq73/09/2025Results Follow-Up [facility] Internal Medicine [address] 4th [place] [address] Mamadou Bowie MD [address] [place] [address] Dx: Elevated glucose (Primary Dx) Social History Tobacco UseTypesPacks/DayYears UsedDateSmoking [...] MeetingsNot on file04/02/2024Marital StatusNot on file04/02/2024HQ-2AnswerDate RecordedPHQ-2 Heeft02205/12/2024[facility] [place] of Occupational Health - Occupational Stress QuestionnaireAnswerDate RecordedDo you feel stress - tense, restless, nervous, or anxious, or unable to sleep at night because yourmind is troubled all the time - these days?Only a tjexop8904/02/2024Exercise Vital SignAnswerDate RecordedOn average, how many days [...] abandoned building, in an overnight assisted, or couch-surfing.)Yes12/20/2024re you worried about losing your [...] ex-partner?No03/19/2023CommentsNoSex and Gender InformationValueDate RecordedSex Assigned at KncmzStsmyi62/12/2021 10:33 PM CDTLegal SexFemale 03/09/2012 3:58 AM CSTGender Jfrkflmfkbkba12/12/2021 10:33 PM CDTSexual KdzahwcnwvoDzzzfxs25/17/2020 4:20 AM CSTdocumented as of this encounter Plan of Treatment DateTypeDepartmentCare Team (Latest Contact Info)Fgtuokjtqmo79/29/2025 4:[address] [facility] Plastic [facility] Re[facility]ive Surgery Clinic [address] 4th [place] [address] Kenya Jennings MD [address] [place] [address] 05/20/2025 1:00 PM CSTOffice Visit [facility] [address] [place] [phone] Racheal Ng MD 2450 [facility] F282 [place], [place] [phone] 05/25/2025 10:[address] [facility] Mental Health & Addiction [facility] 2nd [facility] F275 [address] [address] Yael Reaves MD [facility]0 [place], [place] [address]7594 08/17/2025 12:[address] [facility] Dermatology Clinic [address] 3rd [place] [phone] Herber Lopez MD 420 [facility] 98 [place], [place] [address]045 01/14/2026 1:[address] [facility] Imaging Center CT Clinic [address] 1st [place] [phone] Yudy Pompa MD [address] [place] [address] 612705 01/18/2026 1:[address] [facility] [address] [place] [address] Yudy Pompa MD [address] [place] [address] 331425 documented as of this encounter Goals GoalPatient Goal TypeAssociated ProblemsRecent ProgressPatient-Stated?Author MYC ECC SURG ENROLL Care PlanMyC ECC SURG ENROLLNoSpFina horn Jdocumented as of this encounter Results * (ABNORMAL) Hemoglobin A1c (03/12/2025 1:15 PM EXAMINING OFFICER)ComponentValueRef RangeTest MethodAnalysis TimePerformed AtPathologist SignatureEstimated Average Glucose 120(H)<117 mg/dL03/12/2025 4:10 PM CSTUU LABORATORYHemoglobin A1C5.8(H)<5.7 % 03/12/2025 4:10 PM CSTUU LABORATORYComment: Normal <5.7% Prediabetes 5.7-6.4% ?? Diabetes 6.5% or higher Note: Adopted from ADA consensus guidelines. Specimen (Source)Anatomical Location / LateralityCollection Method / Volume Collection TimeReceived TimeBloodSTRUCTURE OF LEFT UPPER LIMB / Unknown Venipuncture / Jsamcob4403/12/2025 1:15 PM CST03/12/2025 1:15 PM EXAMINING OFFICER Narrative Authorizing ProviderResult TypeResult StatusLee Gogo Bowie MDLAB - BLOOD ORDERABLESFinal ResultPerforming OrganizationAddressCity/State/ZIP CodePhone Number [facility] [place] [facility] 500 [facility], Room [address] [address] documented in this encounter Visit Diagnoses Diagnosis Elevated glucose- Primary Other abnormal glucose documented in this encounter Additional Health Concerns Active ProblemsNoted DateDiagnosed DateD[facility] ECC SURG [id number] Noted TimePHQ-9 Depression Total Score: 12:26 PM CDTdocumented as of this encounter Care Teams Team MemberRelationshipSpecialtyStart DateEnd Date Mamadou Bowie MD [address] [place] [address] PCP - Dikfjip52/13/23 Cindy Ruiz [facility] [address] [place] [address] ResidentInternal Medicine12/07/14 Trevor Espino MD 909 [place] [address] Urolog05/16/16 Jaci Whitlock APRN CNP 420 [facility] 395 [place] [address] Nurse Practitioner - Women's Health12/14/16 Doris Ricci MD [facility] 2000 [place] [address] PhysicianInternal Medicine07/11/20 Yudy Pompa MD [address] [place] [address] 631235 Assigned Cancer Care Provider08/21/20 Mary Carmen Rodriguez MD 420 [facility] 98 [place] [address] MDDermatology11/09/20 Herber Lopez MD 420 [facility] 98 [place] [address] MDDermapathology11/09/20 Gloria Elizalde MD 420 [place] [address] Resident12/24/22 Mamadou Bowie MD [address] [place] [address] Assigned PCP03/23/23 Makenzie Romano MD [address] [place] [address] MDPsychiatry & Neurology - Child & Adolescent Psychiatry11/08/23 Shani Stephenson MD 420 [place], [place] [address]805 ResidentPsychiatry11/08/23 Ita Newton Specialty Care Coordinator06/04/24 Kenya Jennings MD 420 [facility] 195 [place], [place] 0[address]405 MDPlastic Surgery06/04/24 Herber Lopez MD 420 [facility] 98 [place] [address] Assigned Dermatology Provider07/26/24 Сергей Dumont, [facility] Social Worker08/13/24 Kenya Jennings MD 420 [facility] 195 [place], [place] 7[address]35 Assigned Surgical Provider08/26/24 Carmen Cole PA-C [address] [facility] 103 [place], [place] 5[address]35 Assigned Sleep Provider09/25/24 Jesse Arvizu MD 5775 [place] [address] Assigned Behavioral Health Provider12/26/2510 Marita Chisholm, [facility] [address] [place], [place] [address] VnajygrsrkPwwjqrwhox08/22/25documented as of this encounter
--- OUTSIDE RECORDS SUMMARY | 2025-04-23 05:03 | XMS_ITS | Clinical Summary ---
Author Organization [facility] Address [address] [place] [address] Care Team Providers Care Drawbridge Tender Name Role Phone Cindy Ruiz Unavailable [phone] Trevor Espino MD Unavailable [phone] Jaci Whitlock APRN FSR Unavailable + Doris Ricci MD Unavailable [phone] Yudy Pompa MD Unavailable Mary Carmen Rodriguez MD Unavailable + Herber Lopez MD Unavailable [phone] [facility] Unavailable [phone] Mamadou Bowie MD Primary Care Provider [phone] Mamadou Bowie MD Unavailable Makenzie Romano MD Unavailable [phone] Shani Stephenson MD Unavailable [phone] Ita Newton Unavailable Unavailable Kenya Jennings MD Unavailable [phone] Herber Lopez MD Unavailable [phone] [facility] Unavailable Unavailable Kenya Jennings MD Unavailable [phone] Carmen Cole PA-C Unavailable [phone] Marita [facility]ishol[facility] Unavailable [phone] Racheal Ng MD Unavailable [phone] Marita Chisholm [place] [facility] Unavailable + [phone] Allergies Active AllergyReactionsCriticalityNoted DateCommentsAdhesive TapeRashLow 06/25/2014Sulfa ItqnyrzvguhFugtWat58/19/2014 Medications MedicationSigDispense QuantityRefillsLast FilledStart DateEnd DateStatus Multiple Vitamins-Minerals (MULTIVITAMIN OR) Take 1 capsule by mouth AMActive acetaminophen (TYLENOL) 500 MG tablet Take 500 mg by mouth every 6 hours as needed for mild painActive naproxen sodium (ANAPROX) 220 MG tablet Take 220 mg by mouth as neededActive minoxidil (LONITEN) 2.5 MG tablet Indications:Androgenetic alopeciaTake one-half tablet daily 60 tablet 5Active SUMAtriptan (IMITREX) 25 MG tablet Indications:Migraine without aura and without status migrainosus, not intractableTake 1 tablet (25 mg) by mouth at onset of headache for migraine. May repeat in 2 hours. Max 8 tablets/24 hours. - Oral 9 tablet 5Active methylphenidate (RITALIN) 5 MG tablet Take 5 mg by mouth daily as needed.Active aspirin 81 MG EC tablet Indications:Endometrioid adenocarcinoma of uterus (H)Take 1 tablet (81 mg) by mouth daily. 30 tablet 5Active prazosin (MINIPRESS) 1 MG capsule Indications:PTSD (post-traumatic stress disorder)Take 1 capsule (1 mg) by mouth at bedtime. 30 capsule 5Active hydrALAZINE (APRESOLINE) 10 MG tablet Take 1 tab (10mg) PRN signs of hypertensive crisis (severe headache, high BP with headache, nausea,vomitting, tremor, chest pain, shortness of breath, high anxiety) and proceed to nearest ER. May repeat once. 15 tablet 5Active tranylcypromine (PARNATE) 10 MG tablet Taken 2 tablets (20 mg) every morning and 20 mg every day at noon 120 tablet 5Active prochlorperazine (COMPAZINE) 5 MG tablet Indications:Mild intermittent asthma without complication,Migraine without aura and without status migrainosus, not intractableTAKE 1 TO 2 TABLETS BY MOUTH EVERY 4 TO 6 HOURS NEEDED FOR NAUSEA 30 tablet 5Active doxepin (SILENOR) 3 MG tablet Indications:PTSD (post-traumatic stress disorder),Drug-induced insomnia (H)Take 1-2 tablets (3-6 mg) by mouth nightly as needed for sleep (may repeat once). 120 tablet 5Active ROZEREM 8 MG tablet Indications:Drug-induced insomnia (H)Take 1 tablet (8 mg) by mouth at bedtime. 30 tablet 5Active hydrOXYzine HCl (ATARAX) 25 MG tablet Indications:Gender dysphoriaTake 1 tablet (25 mg) by mouth 3 times daily as needed for itching. 12 tablet 5Active oxyCODONE (ROXICODONE) 5 MG tablet Indications:Gender dysphoriaTake 1 tablet (5 mg) by mouth every 6 hours as needed for severe pain. 12 tablet 5Active prochlorperazine (COMPAZINE) 10 MG tablet Indications:Gender dysphoriaTake 1 tablet (10 mg) by mouth every 6 hours as needed for nausea or vomiting. 12 tablet 5Active triamcinolone (KENALOG) 0.1 % external cream Indications:S/P bilateral mastectomy,RashApply topically 2 times daily. 80 g 5Active hydrOXYzine HCl (ATARAX) 25 MG tablet Indications:PTSD (post-traumatic stress disorder)Take 1 tablet (25 mg) by mouth 2 times daily as needed for anxiety or itching. 60 tablet 5Active fluticasone-vilanterol (BREO ELLIPTA) 100-25 MCG/ACT inhaler Indications:Mild persistent asthma without complicationInhale 1 puff into the lungs daily. 28 each 5Active albuterol (PROAIR HFA/PROVENTIL HFA/VENTOLIN HFA) 108 (90 Base) MCG/ACT inhaler Indications:Mild persistent asthma without complicationInhale 2 puffs into the lungs every 4 hours as needed for shortness of breath or wheezing. 18 each 5Active prazosin (MINIPRESS) 1 MG capsule Indications:PTSD (post-traumatic stress disorder)Take 1 capsule (1 mg) by mouth 3 times daily as needed (As needed for hypervigilance). 270 capsule 5Active fluticasone-vilanterol (BREO ELLIPTA) 100-25 MCG/ACT inhaler Indications:Mild intermittent asthma without complicationInhale 1 puff into the lungs daily. 28 each Discontinued(Reorder (No AVS)) albuterol (PROAIR HFA/PROVENTIL HFA/VENTOLIN HFA) 108 (90 Base) MCG/ACT inhaler Indications:Mild intermittent asthma without complicationInhale 2 puffs into the lungs every 4 hours as needed for shortness of breath or wheezing. 18 g Discontinued(Reorder (No AVS)) hydrOXYzine HCl (ATARAX) 25 MG tablet Indications:PTSD (post-traumatic stress disorder)Take 1 tablet (25 mg) by mouth 2 times daily as needed for anxiety or itching. 60 tablet Discontinued(Reorder (No AVS)) prazosin (MINIPRESS) 1 MG capsule Indications:PTSD (post-traumatic stress disorder)Take 1 capsule (1 mg) by mouth 3 times daily as needed (hypervigilance). 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 09/08/2024OSA (obstructive sleep apnea)09/08/2024ttention deficit hyperactivity disorder (ADHD), combined type06/01/2024Generalized anxiety /22/2024 BCNS (basal cell nevus syndrome)05/16/2023Multiple melanocytic nevi05/16/2023 Neoplasm of unspecified behavior of bone, soft tissue, and skin11/17/2022History of nonmelanoma skin dxfwrz9011/17/2022Seborrheic qslifqhmg69/15/2023Solar lentigo 11/17/2022Multiple benign nevi11/17/2022Malignant neoplasm metastatic to lung, unspecified kuvjisinlk87/03/2022Encounter for long-term (current) use of dfypvxubctw23/03/2022Neoplasm of uncertain behavior of skin02/19/2021Tinea pedis of both feet02/19/2021Major depression, tcoklgifb78/09/2020Morbid obesity 03/10/2020PTSD (post-traumatic stress disorder)03/03/2020s/p robotic ASHVIN - 210/15/2019Endometrioid adenocarcinoma of exvpag1109/17/2016Kidney stone05/18/2016 S/P xomdvumnetmu73/26/2016Skin cancer of face09/01/2014 Overview (12/12/2018): Overview: Multiple removals by Dr. Cedillo of Dermatology. Other specified congenital malformation syndromes, not elsewhere classified 09/01/2014Postmenopausal vpcrsfyl71/19/2014asal cell nevus zsusjrjs43/19/2014 Ioybalg5106/24/2013 Resolved Problems ProblemNoted DateDiagnosed DateResolved ZzmfRgdfxfu40/18/202304/5Circadian rhythm tpaftwwq05 Encounters DateTypeDepartmentCare BpayUbqaoskhezf27/18/2025Telephone [facility] [address] [place] [phone] Jesse Arvizu MD 04/20/2025Refill [facility] Psych[facility] Clinic [address] [place] [phone] Racheal Ng MD Medication Zlulwi4704/16/2025 1:00 PM CSTOffice Visit [facility] Internal Medicine [address] 4th [place] [address] Mamadou Bowie MD Routine general medical examination at a health care facility (Primary Dx); Mild persistent asthma without jvaeoskkalpj08/11/6239Bvfsxt96/09/2025My Medical Advice [facility] [address] [place] [phone] Racheal Ng MD 04/06/2025 9:20 AM CSTVirtual Visit [facility] Mental Health & Addiction [address] [phone] OtisunAngella schaeffer MD Vallera, Vincent, MD Nyquist, Christina, MD Gender dysphoria; PTSD (post-traumatic stress disorder)04/05/2025 4:30 PM CSTOffice Visit [facility] Plastic and Reconstructive Surgery [address] [phone] Kenya Jennings MD S/P bilateral mastectomy (Primary Dx); Postoperative state04/05/20259476Mbwzdf22/25/2025 10:00 AM CSTOffice Visit [facility] Plastic and Reconstructive Surgery [address] [phone] Lynn Parks APRN CNP S/P bilateral mastectomy (Primary Dx); Rash03/30/20250034Wrplno87/24/0385Sdxuap23/21/2025Telephone [facility] Plastic and Reconstructive Surgery [address] [phone] Antonette Ferrari RN 03/23/2025 8:05 AM CSTAnesthesia Event [facility] PeriOp Services [address] [place] [address] SHOLA MEDEIROS [phone] Torey Dumont MD Chugaieva, Iryna, MD 03/23/2025 8:00 AM 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 - 03/23/2025 12:05 PM CSTSurgery [facility] [address] [place] [address] SH[place] MELTON [phone] Kenya Jennings MD MASTECTOMY, BILATERAL, SIMPLE, NO nipple grafts. On03/23/2025 6:12 AM 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 - 03/23/2025 3:15 PM CSTHospital Encounter [facility] [address] [place] [phone] Kenya Jennings MD Gender dysphoria (Primary Dx) Discharge Disposition: Home or Self Care03/23/20250515Qqxgjx33/15/2025Travel 03/19/2025 2:20 PM CSTVirtual Visit [facility] Mental Health & Addiction [place] [phone] [phone] Angella Lima MD Gabor, MD Jelly Macias Christina, MD Moderate episode of recurrent major depressive disorder (H) (Primary Dx); PTSD (post-traumatic stress disorder); Generalized anxiety disorder; Attention deficit hyperactivity disorder (ADHD), combined type03/19/2025Travel 03/12/2025 1:15 PM CSTLab [facility] Lab [place] [address] [place] [address] [address] [place] [phone] Elevated glucose; Fatigue, unspecified type03/12/2025 1:00 PM CSTOffice Visit [facility] Internal Medicine [place] [address] [place] [address] 4[address] [place] [phone] Mamadou Bowie MD Preop general physical exam (Primary Dx); Gender dysphoria; TARUN (obstructive sleep apnea); Fatigue, unspecified type03/12/2025Results Follow-Up [facility] Internal Medicine [address] [place] [phone] Mamadou Bowie MD Dx: Prediabetes (Primary Dx)03/12/20254979Iiawtj08/31/2025[facility] [address] [place] [phone] Racheal Ng MD 03/05/2025Telephone [facility] Psychiatry [facility] [address] [place] [address] Marisela Branch Prior Auth - Hturkdudqp88/28/2025[facility] Psychiatry [facility] [address] [place] [address] [address] [place] [address] Shellie Humphries RN Drug-induced insomnia (H) (Primary Dx)02/25/2025 11:15 AM CDTOffice Visit [facility] Psychiatry [facility] [address] [place] [phone] Racheal Ng MD PTSD (post-traumatic stress disorder) (Primary Dx); Drug-induced insomnia (H); Moderate episode of recurrent major depressive disorder (H); Generalized anxiety disorder; Attention deficit hyperactivity disorder (ADHD), combined type; Dissociative identity disorder (H); Suicidal ideation; TARUN (obstructive sleep apnea); Morbid obesity (H); Goltz-Gorlin svnqycrv21/23/2025Telephone [facility] Psychiatry [facility] [address] [place] [phone] Racheal Ng Prior Auth - Medication (Doxepin - APPEAL DENIED FOR QTY)02/25/2025Telephone [facility] Psychiatry [facility] [address] [place] [phone] Shellie Humphries RN Clinic Care Coordination - Follow-up02/25/2025[facility] [place] [facility] [facility] Psychiatry [facility] [address] [place] [address] Racheal Ng MD 02/25/2025[facility] [place] [facility] & [facility] Services [address] [place] [phone] Marita Chisholm [facility] 02/25/20254284Lkfojz42/22/2025 1:00 PM CDTVirtual Visit [facility] [address] [place] [address] [address] [place] [address] Marita Chisholm [facility] Major depression, recurrent (Primary Dx); Generalized anxiety disorder; PTSD (post-traumatic stress disorder); Euzibbmp10/22/2300Mtxzak03/20/2025 12:30 PM CDTOffice Visit [facility] Plastic and Reconstructive Surgery [facility] [address] [place] [address] [address] [place] [phone] Kenya Jennings MD Gender dysphoria (Primary Dx)02/21/20255360Xmcdao18/16/2025[facility] [place] [facility] Psychiatry [facility] [address] [place] [phone] Racheal Ng MD 02/12/2025[facility] [place] [facility] Plastic and Reconstructive Surgery [address] [phone] Antonette Ferrari RN 02/09/2025[facility] & Addiction [address] [place] [phone] [facility] 02/04/2025[facility] [place] [facility] [address] [place] [phone] Magi Marte, STEFFEN 01/26/2025 7:20 AM CDTVirtual Visit [facility] [address] [place] [phone] Yudy Pompa MD Endometrioid adenocarcinoma of uterus (H) (Primary Dx); Malignant neoplasm metastatic to lung, unspecified laterality (H)from Last 3 Months Immunizations ImmunizationAdministration DatesNext DueCOVID-19 MONOVALENT 12+ (Pfizer) 08/20/2020,1DTaP, Cdbzdrbmisb90/01/2009TD,PF 7+ (Tenivac)07/22/2018TDAP (Adacel,Boostrix)05/06/2008Td (Adult), Xbjvzmla39/19/2019 Family History Medical HistoryRelationCommentsArthritisFatherAutoimmune DiseaseFatherMicosis fungoidisC.A.D.FatherCancerFatherCerebrovascular DiseaseFatherDeep Vein ThrombosisFatherHypertensionFatherObesityFatherCancerMaternal Grandfather ArthritisMaternal GrandmotherHypertensionMaternal GrandmotherObesityMaternal GrandmotherAnesthesia ReactionMotherponvCancerMotherMelsnomaThyroid Disease MotherHyperthyroidism.CancerOther 1Mother had MelonomaDepressionPaternal GrandfatherMultiple inpatient and ECTObesityPaternal GrandfatherArthritis Paternal GrandmotherCerebrovascular DiseasePaternal GrandmotherHypertension Paternal GrandmotherRelationStatusCommentsFatherMaternal GrandfatherAlive Maternal GrandmotherMotherOther 1Other 2AlivePaternal GrandfatherPaternal Grandmother Social History Tobacco UseTypesPacks/DayYears UsedDateSmoking Tobacco: NeverPassive Smoke Exposure: NeverSmokeless Tobacco: Never Tobacco Cessation:Counseling Given: Not Answered Alcohol UseStandard Drinks/WeekCommentsNot Currently0 (1 standard drink = 0.6 oz pure alcohol)1 drink every couple of weeksPHQ-2AnswerDate RecordedPHQ-2 Score2 04/16/2025[facility] [place] [facility] - Occupational Stress QuestionnaireAnswerDate RecordedDo you feel stress - tense, restless, nervous, or anxious, or unable to sleep at night because yourmind is troubled all the time - these days?Only a gwqfue1104/15/2025Exercise Vital SignAnswerDate Recorded On average, how many days per week do you engage in moderate to strenuous exercise (like a brisk walk)?4 days04/15/2025On average, how many minutes do you engage in exercise at this level?20 min04/15/2025dolescent EducationAnswerDate RecordedGetting School Help NeededNot on file01/29/2023Social ConnectionsAnswer Date RecordedHow often do you feel lonely or isolated from those around you? Wuhhjl7604/15/2025Food InsecurityAnswerDate RecordedWithin the past 12 months, did you worry that your food would run out before you got money to buy more?No 04/15/2025Within the past 12 months, did the food you bought just not last and you didn???t have money to getmore?No04/15/2025Housing StabilityAnswerDate RecordedDo you have housing? (Housing is defined as stable permanent housing and does not include staying outside in a car, in a tent, in an abandoned building, in an overnight intermediate, or couch-surfing.)Yes04/15/2025re you worried about losing your housing?No04/15/2025Financial Resource StrainAnswerDate Recorded Within the past 12 months, have you or your family members you live with been unable to get utilities (heat, electricity) when it was really needed?No 04/15/2025Transportation NeedsAnswerDate RecordedWithin the past 12 months, has lack of transportation kept you from medical appointments, getting your medicines, non-medical meetings or appointments, work, or from getting things that you need?No04/15/2025Interpersonal SafetyAnswerDate RecordedDo you feel physically and emotionally safe where you currently live?Yes04/16/2025Within the past 12 months, have you been hit, slapped, kicked or otherwise physically hurt by someone?No04/16/2025Within the past 12 months, have you been humiliated or emotionally abused in other ways by your partner or ex-partner?No04/16/2025 CommentsNoSex and Gender InformationValueDate RecordedSex Assigned at UakbkKnpgmk33/12/2021 10:33 PM CDTLegal WluLibaui42/04/2012 3:58 AM CSTGender Bjkspydqyynoy31/12/2021 10:33 PM CDTSexual NyinhmshmerXprtfvc45/17/2020 4:20 AM 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 Last Filed Vital Signs Vital SignReadingTime TakenCommentsBlood Vkdhtbdn206/7504/16/2025 1:00 PM 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 Pymhp004004/16/2025 1:00 PM JJACutlyspvuli66.4 ??C (97.5 ??F)04/16/2025 1:00 PM CSTRespiratory Qins504206/17/2024 1:00 PM CSTOxygen Aqcxesaimv03%04/16/2025 1:00 PM CSTInhaled Oxygen Concentration--Aoaamb021.4 kg (274 lb 4.8 oz)04/16/2025 1:00 PM POIKzamng856.5 cm (5' 9.49)04/16/2025 1:00 PM CSTBody Mass Index39.94 04/16/2025 1:00 PM 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 Plan of Treatment DateTypeDepartmentCare Team (Latest Contact Info)Mablaffrrfk26/29/2025 4:00 PM CSTOffice Visit [facility] Plastic [facility] Reconstructive [facility] [place] [address] 4th [place] [phone] Kenya Jennings MD [address] [facility] [address] [place], [place] [address] 05/20/2025 1:00 PM CSTOffice Visit [facility] [address] [place] [phone] Racheal Ng MD [address] [place], [place] [address] [place], [place] [address] 05/25/2025 10:40 AM CSTOffice Visit [facility] Mental Health & Addiction [address] [phone] Yael Reaves MD [address] [place] [phone] 08/17/2025 12:15 PM CDTOffice Visit [facility] Dermatology Clinic [place] [address] [place] [phone] Herber Lopez MD [address] [facility] [address] [place], [place] [address] 01/14/2026 1:40 PM CDTAncillary Procedure [facility] [address] 1st [place] [address] Yudy Pompa MD [address] [place] [phone] 01/18/2026 1:20 PM CDTOncology Visit [facility] [address] [place] [phone] Yudy Pompa MD [address] [place] [address] Health MaintenanceDue DateLast DoneCommentsCT AQGWTNTKXBUB27/18/1965FIT 1964FLEX SIG1964sDNA (Cologuard)1964PNEUMOCOCCAL VACCINE 50+ YEARS (1 of 2 - PCV)1983ZOSTER VACCINE (1 of 2)1983RSV VACCINE (1 - Risk 50-74 years 1-dose series)2014COVID-19 VACCINE ( - 2024- season) /, 08/20/2020, 07/30/2020INFLUENZA VACCINE (#1)2025 PHQ-90/, 03/12/2025, 02/25/2025, Additional history exists ASTHMA CONTROL TEST, 03/12/2025, 01/08/2025, Additional history existsANNUAL REVIEW OF HM FUAVXW63/09/2024, 04/03/2024, 3A1C/STHMA ACTION PLAN, 04/16/2025, 04/16/2025, Additional history existsYEARLY PREVENTIVE VISIT , 04/03/2024, 3DIABETES FQVBRTSWU21/07/2028 03/12/2025, 03/12/2025, 01/18/2025, Additional history existsDTAP/TDAP/TD VACCINE (5 - Td or Tdap), 07/22/2018, 05/06/2008, Additional history izdtxhHBAVZTJXBZQ97, 09/04/2018COLORECTAL CANCER MDMGYIFFU03/02/7498IHUWH07/01/2025, 2ADVANCE CARE PLANNING , 04/03/2024, 03/19/2023EPRESSION ACTION PLANCompleted 03/19/2023MAMMO EKDTDZNRENqxuoqfbfaqr85/20/2024, 05/15/2021, 05/12/2020, Additional history existsHEPATITIS C SCREENINGDiscontinuedHIV SCREENING DiscontinuedHPV VACCINE (No Doses Required)CompletedMENINGITIS VACCINEAged OutNo longer eligible based on patient's age to complete this topicPAPDiscontinued Goals GoalPatient Goal TypeAssociated ProblemsRecent ProgressPatient-Stated?Author MYC ECC SURG E[facility]OLL [facility] [place] [facility] SUR[facility] ENROLLNoSpFina horn [employer] Devices ImplantedTypeAreaManufacturerDevice IdentifierShelf Expiration DateModel / Serial / LotWire Localization Other-06/29/2020 Implanted:Qty: 1 on 06/29/2020 by Rodney Powell MDOtherLeft: [id number] / / [id number] Procedures Procedure NamePriorityDate/TimeAssociated DiagnosisCommentsSURGICAL PATHOLOGY HJBXUmhxvzd74/18/2025 9:38 AM 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 ANE AIRWAY ETT YCCIQQQGCSURkwzyol60/18/2025 8:20 AM 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 MASTECTOMY, SIMPLE, MPVZFUTO06/18/2025 8:05 AM 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 Gender dysphoria in adult Special Needs MAOI Parnate CBC WITH VAFMOVEAQTwbhats21/07/2025 1:15 PM 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 Fatigue, unspecified type COMPREHENSIVE METABOLIC DFKGGEskmxpt83/07/2025 1:15 PM 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 Fatigue, unspecified type TSH WITH FREE T4 XFVAQYSncyvvr32/07/2025 1:15 PM 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 Fatigue, unspecified type HEMOGLOBIN T5KCeuhzlx23/07/2025 1:15 PM 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 Elevated glucose LIPID REFLEX TO DIRECT LDL STSWMXrbokfg00/09/2025 11:24 AM CDT Lipid screening MA SCREENING BILATERAL W/ YTYZMfptzdh35/20/2024 2:51 PM CDT Visit for screening mammogram COLONOSCOPY - HIM ZCXQYbetdjb20/02/2019 from Last 3 Months or Most Recently Relevant to Health Maintenance Results * Surgical Pathology Exam (03/23/2025 9:38 AM 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)ComponentValueRef RangeTest MethodAnalysis TimePerformed AtPathologist SignatureCase ReportSurgical Pathology Report ? Case: [id number] ? Authorizing Provider: ??Kenya Jennings MD ??Collected: ? 03/23/2025 09:38 AM ? Ordering Location: ? [facility] ? Received: ?03/23/2025 10:03 AM ? Pathologist: ? Mari Nava MD ? Specimens: ?? A) - Breast, Left, Left Breast Tissue ? B) - Breast, Right, Right Breast Tissue ? 03/25/2025 11:02 AM [facility] SPECIALTY LABSFinal DiagnosisA. LEFT breast, simple mastectomy: - Benign breast tissue with fibrocystic change (including microcysts) - Benign nipple and skin - Negative for atypia and malignancy B. RIGHT breast, simple mastectomy: - Benign breast tissue with fibrocystic change (including microcysts) and usual ductal hyperplasia - Benign nipple and skin - Negative for atypia and bufqxitzda70/20/2025 11:02 AM [facility] SPECIALTY LABS at [address] 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 Clinical InformationThe patient is a 59 year [...] tissue with no cysts or masses identified. Route Service Manager sections are submitted in cassettes A1-A2. The [...] 2.1 x 1.5 x 1.5 cm everted nipple).The cut surface is composed of 50% fibrous to 50% adipose tissue with no cysts or masses identified. Route Service Manager sections are submitted in cassettes B1-B2. The specimen is collected at 9:39 AM, received in the pathology lab at 9:55 AM, then sectioned and placed in formalin at 10:09 AM on 03/23/2025.03/25/2025 11:02 AM CSTUR LABORATORYMicroscopic DescriptionMicroscopic examination is performed. 03/25/2025 11:02 AM CSTUR LABORATORYPerforming LabsThe technical component of this testing was completed at [facility]. Stain controls for all stains resulted within this report have been reviewed and show appropriate reactivity.03/25/2025 11:02 AM CSTUR LABORATORYCase Images 03/25/2025 11:02 AM CSTUM SPECIALTY LABSSpecimen (Source)Anatomical Location / LateralityCollection Method / VolumeCollection TimeReceived TimeTissueLEFT BREAST STRUCTURE / Crvjbtz0503/23/2025 9:38 AM CST03/23/2025 10:03 AM CSTTissue specimen (specimen)RIGHT BREAST STRUCTURE / Ktsvrnk5303/23/2025 9:39 AM 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 03/23/2025 10:03 AM 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 Narrative Authorizing ProviderResult TypeResult StatusKenya CABRERA APFinal ResultPerforming OrganizationAddressCity/State/ZIP CodePhone Number SPECIALTY LABS Specialty Lab [address] [facility], [address] [place] [address], [facility] Lab [address] [facility], [address] [place] [address], [facility] * ANE AIRWAY ETT PERFORMABLE (03/23/2025 8:20 AM 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) Narrative Kaelyn Juarez APRN ADMINISTRATIVE SUPPORT ASSISTANT - 03/23/2025 8:20 AM 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 Kaelyn Juarez APRN CRNA 03/23/2025 9:21 AM Airway ? Patient location during procedure: OR ? Procedure Start/Stop Times: 03/23/2025 8:20 AM Staff - ? Anesthesiologist: ??Enedelia Matthews MD ? ADMINISTRATIVE SUPPORT ASSISTANT: Kaelyn Juarez APRN ADMINISTRATIVE SUPPORT ASSISTANT ? Performed By: ADMINISTRATIVE SUPPORT ASSISTANT and anesthesiologist Consent for Airway ? 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 Diabetes 6.5% or higher Note: Adopted from ADA consensus guidelines. 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 * Comprehensive metabolic panel (BMP + Alb, Alk Phos, ALT, AST, Total. 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)ComponentValueRef RangeTest MethodAnalysis Time Performed AtPathologist XcoyzpjqrOhvloq819752 - 145 mmol/L105/12/2024 1:52 PM CSTUCSC LABORATORY - CORE LABPotassium4.43.4 - 5.3 mmol/L105/12/2024 1:52 PM CSTUCSC LABORATORY - CORE LABCarbon Dioxide (CO2)2522 - 29 mmol/L105/12/2024 1:52 PM CSTUCSC LABORATORY - CORE LABAnion Wwz405 - 15 mmol/L105/12/2024 1:52 PM CSTUCSC LABORATORY - CORE LABUrea Skctqrfo21.78.0 - 23.0 mg/dL03/12/2025 1:52 PM CSTUCSC LABORATORY - CORE LABCreatinine0.820.51 - 1.17 mg/dL03/12/2025 1:52 PM CSTUCSC LABORATORY - CORE LABComment: Male and Female [...] 15 Years and older ??0.67-1.17 mg/dL GFR Udebpqkt22>60 mL/min/1.00n20703/12/2025 1:52 PM [facility]STU[facility] - CORE LAB Comment:The generation of [...] mg/dL03/12/2025 1:52 PM CSTUCSC LABORATORY - CORE LZWLstlbegb50448 - 107 mmol/L105/12/2024 1:52 PM CSTUCSC LAB[facility] - CORE ICEDzdwjey6542 - 99 mg/dL03/12/2025 1:52 PM CSTUCSC [facility] - CORE LAB Alkaline Nzldkcvlsvi4762 - 150 U/L105/12/2024 1:52 PM CSTUCLA LABORATORY - CORE LABComment: Female: 0-15 days [...] U/L 19 years and older ??40-129 U/L VPX857 - 45 U/L105/12/2024 1:52 PM CSTUCSC LABORATORY - CORE YVRLUZ524 - 70 U/L 03/12/2025 1:52 PM CSTUCSC [...] LEFT UPPER LIMB / Unknown Venipuncture / Jkarihv4003/12/2025 1:15 PM CST03/12/2025 1:15 PM 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 Narrative [facility] - [facility]ORE LAB - 03/12/2025 1:52 PM 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 The generation of reference intervals for this [...] - BLOOD ORDERABLESFinal ResultPerforming OrganizationAddressCity/State/ZIP CodePhone Number [facility] [place] [facility] - CORE LAB [facility] [address] 1st [place] [address] * CBC with platelets (03/12/2025 1:15 PM 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0 %MCV89.378.0 - 100.0 fL03/12/2025 1:20 PM CSTUCSC [facility]AT[facility] - CORE ITBBLP27.326.5 - 33.0 pg03/12/2025 1:20 PM CSTUCSC [facility] - CORE MCCRHEA30.831.5 - 36.5 g/dL03/12/2025 1:20 PM CSTUCSC [facility] - CORE OONFWH11.410.0 - 15.0 %03/12/2025 1:20 PM CSTUCSC LABORATORY - CORE LABPlatelet Lcvhw122924 - 450 10e3/uL03/12/2025 1:20 PM CSTUCSC LABORATORY - CORE LABSpecimen (Source)Anatomical Location / Laterality Collection Method / VolumeCollection TimeReceived TimeBloodSTRUCTURE OF LEFT UPPER LIMB / UnknownVenipuncture / Xenayhm2303/12/2025 1:15 PM CST03/12/2025 1:15 PM 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 If the electronic health record information indicates another gender identity or if Legal Sex is recorded as Unknown, both male and female reference intervals are provided where applicable, and should be considered according to the individual's appropriate clinical context. Authorizing ProviderResult TypeResult StatusLee Gogo DESHPANDE - BLOOD ORDERABLESFinal ResultPerforming OrganizationAddressCity/State/ZIP CodePhone Number [facility] - [address] 1st [place] [address] * (ABNORMAL) Lipid panel reflex to direct LDL Non-fasting (01/12/2025 11:24 AM CDT)ComponentValueRef RangeTest MethodAnalysis TimePerformed AtPathologist XueivtpstGsthrpnpgiu816(H)<200 mg/dL01/12/2025 12:23 PM CDTUCSC LABORATORY - CORE UHLRhyomtrwsoqlt368<150 mg/dL01/12/2025 12:23 PM CDTUCSC LABORATORY - CORE LABDirect Measure HDL62>=40 mg/dL01/12/2025 12:23 PM CDTUCSC LABORATORY - CORE LABLDL Cholesterol Wkiecnpfyd503(H)<100 mg/dL01/12/2025 12:23 PM CDTUCSC LABORATORY - CORE LABComment:LDL calculated using the Friedewald equation.Non HDL Rkohxobaqnc682(H)<130 mg/dL01/12/2025 12:23 PM CDTUCSC LABORATORY - CORE LABPatient Fasting > 8hrs?Yes01/12/2025 12:23 PM CDTUCSC LABORATORY - CORE LAB Specimen (Source)Anatomical Location / LateralityCollection Method / Volume Collection TimeReceived TimeBloodSTRUCTURE OF LEFT UPPER LIMB / Unknown Venipuncture / Ajbgmbk1401/12/2025 11:24 AM CDT01/12/2025 11:24 AM CDT Narrative [facility] - 01/12/2025 12:23 PM CDT Cholesterol Desirable: < 200 mg/dL Borderline High: 200 - 239 mg/dL High: >= 240 mg/dL Triglycerides Normal: < 150 mg/dL Borderline High: 150 - 199 mg/dL High: 200-499 mg/dL Very High: >= 500 mg/dL Direct Measure HDL Female: >= 50 mg/dL Male: >= 40 mg/dL LDL Cholesterol Desirable: < 100 mg/dL Above Desirable: 100 - 129 mg/dL Borderline High: 130 - 159 mg/dL High: ??160 - 189 mg/dL Very High: >= 190 mg/dL Non HDL Cholesterol Desirable: < 130 mg/dL Above Desirable: 130 - 159 mg/dL Borderline High: 160 - 189 mg/dL High: 190 - 219 mg/dL Very High: >= 220 mg/dL Authorizing ProviderResult TypeResult StatusMamadou Bowie MDLAB - BLOOD ORDERABLESFinal ResultPerforming OrganizationAddressCity/State/ZIP CodePhone Number [facility] [place] [address] [facility] 1st [place] [address] * MA Screen Bilateral w/Garrett (12/24/2023 2:51 PM CDT)Anatomical RegionLaterality ModalityBreastBilateralMammographySpecimen (Source)Anatomical Location / LateralityCollection Method / VolumeCollection TimeReceived Time Impressions 12/26/2023 1:01 PM CDT IMPRESSION: ACR [...] possible genetic testing and supplemental screening is: [phone]. Narrative 12/26/2023 1:01 PM CDT BILATERAL FULL FIELD DIGITAL SCREENING MAMMOGRAM WITH TOMOSYNTHESIS Performed on: 12/24/23 Compared to: 05/15/2021, 05/12/2020, and 09/19/2018 Technique: ??This study was evaluated with the assistance of Computer-Aided Detection. ??Breast Tomosynthesis was used in interpretation. Findings: There are scattered areas of fibroglandular density. ??There is no radiographic evidence of malignancy. Authorizing ProviderResult TypeResult StatusLee Gogo GARCIA MAMMOGRAPHY ORDERABLESFinal Result * Colonoscopy - HIM Scan (09/04/2018) Impressions Darrell Brandon, МАРИЯ - 09/04/2018 -One 5 mm polyp at the splenic fixture, removed piecemeal using a cold biopsy forceps. Resected and retrieved. -Likely benign tumor at the splenic flexure. ??Biopsied. -One 3 mm polyp in the rectum, removed piecemeal using a cold biopsy forceps. ??Resected and retrieved. -The examination was otherwise normal on direct and retroflexion views. Given recent colonoscopy exam and negative family history of colon cancer and polyps, recommend next colonoscopy in 10 years. Narrative Authorizing ProviderResult TypeResult StatusPatient ReportedPROCEDURESFinal Result from Last 3 Months or Most Recently Relevant to Health Maintenance Additional Health Concerns Active ProblemsNoted DateDiagnosed DateMyC ECC SURG DOLJZB6209/11/2024 Insurance [facility] Address: [id number] [place] [id number] [facility] Address: [id number] [place] [phone] * Guarantor: Gabriela Kraus TypeRelation to PatientDate of BirthPhone Billing AddressPersonal/AytvhiBcyd82/18/1966 [address] [place] [address] [facility] Address: [id number] [place] [phone] * Guarantor: Gabriela Kraus TypeRelation to PatientDate of BirthPhone Billing AddressMedication RfkersrFxyv90/18/1966 [address] [place] [address] [facility] Address: [id number] [place] [phone] * Guarantor: Gabriela Kraus TypeRelation to PatientDate of BirthPhone Billing NuaegjtKylmcfimihYryd35/18/1966 [address] [place] [phone] Advance Directives For more information, please contact: [phone] * Full Code (Latest Code Status on File) Date ActivatedDate TstttpdxjzhWsgyaugn76/18/2025 7:56 AMQuestionAnswerComments Code status determined by:* Discussion with patient/ legal decision maker * Full Code Date ActivatedDate InactivatedComments12/20/2024 10:29 AM03/23/2025 6:12 AM QuestionAnswerCommentsCode status determined by:* Discussion with patient/ legal decision maker * Full Code Date ActivatedDate InactivatedComments12/20/2024 3:23 AM12/20/2024 10:29 AMAll basic and advanced life-sustaining interventions are performed as appropriate QuestionAnswerCommentsCode status determined by:* Discussion with patient/ legal decision maker * Full Code Date ActivatedDate UzxbuexjjpqCtczdyrf74/29/2020 10:56 PM03/09/2020 4:37 PMAll basic and advanced life-sustaining interventions are performed as appropriate QuestionAnswerCommentsCode status determined by:* Unable to discuss and no AD/POLST on file; continue PREVIOUSLY ORDERED code status * Full Code Date ActivatedDate InactivatedComments01/31/2016 7:48 AM03/03/2020 5:21 PM Care Teams Team MemberRelationshipSpecialtyStart DateEnd Date Mamadou Bowie MD [address] [place] [phone] [facility] - Fietazx24/13/[address] [place], [place] [address] ResidentInternal Medicine12/07/14 Trevor Espino MD [address] [place] [address] [phone] Urology1 Jaci Whitlock APRN CNP [address] [facility] [address] [place], [place] [phone] Nurse Practitioner - Women's Health12/14/16 Doris Ricci MD [facility] [address] [place] [address] PhysicianInternal Medicine07/11/20 Yudy Pompa MD [address] [place] [address] [phone] Assigned Cancer Care Provider08/21/20 Mary Carmen Rodriguez MD [address] [facility] 98 [place], [place] [address] MDDermatology11/09/20 Herber Lopez MD [address] [facility] 98 [place], [place] [phone] MDDermapathology11/09/20 Gloria Elizalde MD [address] [place] [phone] Resident12/24/22 Mamadou Bowie MD [address] [place], [place] 305165 Assigned PCP03/23/23 Makenzie Romano MD [facility]0 [address] [address] MDPsychiatry & Neurology - Child & Adolescent Psychiatry11/08/23 Shani Stephenson MD [address] [place] [address] ResidentPsychiatry11/08/23 Ita Newton Specialty Care Coordinator06/04/24 Kenya Jennings MD [address] [place] [address] [address] [place] [phone] MDPlastic Surgery06/04/24 Herber Lopez MD [address] [place] [address] 98 [place], [place] [address] Assigned Dermatology Provider07/26/24 Сергей Dumont [facility] Social Worker08/13/24 Kenya Jennings MD [address] [place] [address] [phone] Assigned Surgical Provider08/26/24 Carmen Cole PA-C [address] [facility] [address] [address] Assigned Sleep Provider09/25/24 Marita Chisholm [facility] [address] [place] [address] [address] EytbtsfrlnTsexfmxtqi43/22/25 Racheal Ng MD [address] [place] [address] [phone] Assigned Behavioral Health Cwdmfiml17/23/25 Marita Chisholm [facility] [address] [place] [address] Assigned [facility] Abwqeiejpb62/23/25
--- OUTSIDE RECORDS SUMMARY | 2025-04-23 05:04 | XMS_ITS | Encounter Summary ---
Author Organization [facility] Address [address] [place] [address] Care Team Providers Care Course Developer Name Role Phone Cindy Ruiz Unavailable Trevor Espino MD Unavailable [phone] Jaci Whitlock APRN DIGITAL MARKETER Unavailable + Doris Ricci MD Unavailable [phone] Yudy Pompa MD Unavailable [phone] Mary Carmen Rodriguez MD Unavailable + Herber Lopez MD Unavailable +[phone] Gloria Elizalde MD Unavailable [phone] Mamadou Bowie MD Primary Care Provider [phone] Mamadou Bowie MD Unavailable Makenzie Romano MD Unavailable [phone] Shani Stephenson MD Unavailable [phone] Ita Newton Unavailable Unavailable Kenya Jennings MD Unavailable Herber Lopez MD Unavailable +[phone] Сергей Dumont [facility] Unavailable Unavailable Kenya Jennings MD Unavailable Carmen Cole PA-C Unavailable [phone] Jesse Arvizu MD Unavailable Marita Chisholm [facility] Unavailable [phone] Reason for Visit * ReasonOnset DateCommentsPrior Auth - Upnfcutnam36/23/2025Doxepin - APPEAL DENIED FOR QTY Encounter Details DateTypeDepartmentCare Team (Latest Contact Info)Rqbtdhvuudt36/23/2025Telephone [facility] [address] [facility] [address] [place] [address] Racheal Ng Prior Auth - Medication (Doxepin - APPEAL DENIED FOR QTY) Social History Tobacco UseTypesPacks/DayYears UsedDateSmoking Tobacco: NeverPassive Smoke Exposure: NeverSmokeless Tobacco: NeverAlcohol UseStandard Drinks/WeekComments Not Currently0 (1 standard drink = 0.6 oz pure alcohol)1 drink every couple of weeksSocial Connection and Isolation PanelAnswerDate RecordedFrequency of Communication with Friends and FamilyNot on file04/02/2024How often do you get together with friends or relatives?Three times a week04/02/2024ttends Muslim ServicesNot on file04/02/2024ctive Member of Clubs or OrganizationsNot on file 04/02/2024ttends Club or Organization MeetingsNot on file04/02/2024Marital StatusNot on file04/02/2024HQ-2AnswerDate RecordedPHQ-2 Vgltv87805/19/2024[facility] [place] of Occupational Health - Occupational Stress QuestionnaireAnswerDate RecordedDo you feel stress - tense, restless, nervous, or anxious, or unable to sleep at night because yourmind is troubled all the time - these days?Only a qlcyzu0204/02/2024Exercise Vital SignAnswerDate RecordedOn average, how many days [...] abandoned building, in an overnight usp, or couch-surfing.)Yes12/20/2024re you worried about losing your [...] ex-partner?No03/19/2023CommentsNoSex and Gender InformationValueDate RecordedSex Assigned at KjizePzdlzw20/12/2021 10:33 PM CDTLegal SexFemale 03/09/2012 3:58 AM CSTGender Ikgfmqihachzy88/12/2021 10:33 PM CDTSexual FwxthelwdhuBwdejua58/17/2020 4:20 AM CSTdocumented as of this encounter Miscellaneous Notes * Telephone Encounter - Anjali Reyna - 03/12/2025 1:45 PM CST Images from the original note were not included. MEDICATION APPEAL DENIED for QTY but Approved for Drug. Doxepin Generic Medication: DOXEPIN HCL 3 MG PO TABS Insurance Company: [employer] Denial Date: 03/11/2025 Denial Reason(s): DENIED FOR QUANTITY - Formulary exception for the the medication itself is approved - but only up to the quantity limit which is 30 tabs per 30 days. A second level appeal would need to be done between the clinic and insurance directly making a casefor why it's medically necessary for the patient to receive more than the allowed 30 tablets for 30days. Otherwise, patient can fill for the 30 tablets at pharmacy now. Pharmacy has been notified ofapproval. Second Level Appeal Information: SEE BELOW Patient Notified: NO Central Prior Authorization Team ONLY: Second level appeals will be managed by the clinic staff andprovider. Please contact the [facility] Prior Authorization Team if additional information about the denial is needed. CALLED [employer] AND THEY ARE FAXING ME A COPY OF DENIAL/APPROVAL LETTER. ICE DOG TRAINER ICE DOG TRAINER * Telephone Encounter - Anjali Reyna - 03/10/2025 3:13 PM CST Images from the original note were not included. Medication Appeal Initiation Medication: DOXEPIN HCL 3 MG PO TABS Appeal Start Date: 03/10/2025 Insurance Company: [employer] Insurance - CLINICAL REVIEW Insurance Comments: APPEAL FAXED WITH DENIAL LETTER AND LMN - QUANTITY REVIEW ICE DOG TRAINER * Telephone Encounter - Dior Holt - 03/02/2025 9:43 AM CDT Images from the original note were not included. PRIOR AUTHORIZATION DENIED Medication: DOXEPIN HCL 3 MG PO TABS Insurance Company: [employer] - Denial Date: 03/01/2025 Denial Reason(s): Appeal Information: Patient Notified: * Telephone Encounter - Dior Holt - 03/01/2025 12:31 PM CDT Images from the original note were not included. PA Initiation Medication: DOXEPIN HCL 3 MG PO TABS Insurance Company: [employer] - Pharmacy Filling the Rx: [id number] - [place], [place] - [address] [facility] [address] Filling Pharmacy Filling Pharmacy Fax: Start Date: 03/01/2025 Retail Pharmacy Prior Authorization Team * Telephone Encounter - Shellie Humphries RN - 02/25/2025 4:18 PM CDT Images from the original note were not included. Prior Authorization Retail Medication Request Medication/Dose: Doxepin Diagnosis and ICD code (if different than what is on RX): New/renewal/insurance change PA/secondary ins. PA: Previously Tried and Failed: See chart Rationale: Patient struggling with sleep Insurance Primary: Insurance ID: Secondary (if applicable): Insurance ID: Pharmacy Information (if different than what is on RX) Name: [facility] Information Preferred routing pool for dept communication: P mt psychiatry RN documented in this encounter Plan of Treatment DateTypeDepartmentCare Team (Latest Contact Info)Btkvyymewra17/29/2025 4:00 PM CSTOffice Visit [facility] [place] [address] [facility] [address] 4th [place] [address] Kenya Jennings MD [address] [place] [address] 05/20/2025 1:00 PM CSTOffice Visit [facility] [address] [place] [phone] Racheal Ng MD [address] [facility] [address] [place], [place] 99[address] 05/25/2025 10:40 AM CSTOffice Visit [facility] Mental Health & Addiction [address] [phone] Yael Reaves MD 2450 [place], [place] 284994 08/17/2025 12:15 PM CDTOffice Visit [facility] Dermatology Clinic [address] 3rd [place] [phone] Herber Lopez MD 420 [facility] 98 [place], [place] 279935 01/14/2026 1:40 PM CDTAncillary Procedure [facility] Imaging Center CT Clinic [address] 1st [place] [phone] Yudy Pompa MD [address] [place] [address] 225185 01/18/2026 1:20 PM CDTOncology Visit [facility] [address] [place] [phone] Yudy Pompa MD [address] [place] [address] [phone] documented as of this encounter Goals GoalPatient Goal TypeAssociated ProblemsRecent ProgressPatient-Stated?Author MYC ECC SURG ENROLL Care PlanMyC ECC SURG ENROLLNoSpearFina murray Jdocumented as of this encounter Visit Diagnoses Not on filedocumented in this encounter Additional Health Concerns Active ProblemsNoted DateDiagnosed DateMyC ECC SURG [id number] Noted TimePHQ-9 Depression Total Score: 7:26 PM CDTdocumented as of this encounter Care Teams Team MemberRelationshipSpecialtyStart DateEnd Date Mamadou Bowie MD 909 [place], [place] 917235 PCP - Sxqdpao93/13/[address] [place], [place] 5826[address] ResidentInternal Medicine12/07/14 Trevor Espino MD [address] [place] [address] 506545 Urolog05/16/16 Jaci Whitlock APRN DIGITAL MARKETER 420 [facility] 395 [place], [place] 099195 Nurse Practitioner - Women's Health12/14/16 Doris Ricci MD [facility] 1999 [place] [address] PhysicianInternal Medicine07/11/20 Yudy Pompa MD 909 [place], [place] 015485 Assigned Cancer Care Provider08/21/20 Mary Carmen Rodriguez MD 420 [facility] 98 [place], [place] 472125 MDDermatology11/09/20 Herber Lopez MD 420 [facility] 98 [place], [place] 284455 MDDermapathology11/09/20 Gloria Elizalde MD 420 [place], [place] 662795 Resident12/24/22 Mamadou Bowie MD 909 [place], [place] 315785 Assigned PCP03/23/23 Makenzie Romano MD [address] [address] MDPsychiatry & Neurology - Child & Adolescent Psychiatry11/08/23 Shani Stephenson MD 420 [place] [address] ResidentPsychiatry11/08/23 Ita Newton Specialty Care Coordinator06/04/24 Kenya Jennings MD [address] 534825 MDPlastic Surgery06/04/24 Herber Lopez MD 420 [facility] 98 [place], [place] 149805 Assigned Dermatology Provider07/26/24 Сергей Dumont [facility] Social Worker08/13/24 Kenya Jennings MD [address] [place] [address] 664435 Assigned Surgical Provider08/26/24 Carmen Cole PA-C [address] [place], [place] 210655 Assigned Sleep Provider09/25/24 Jesse Arvizu MD 5775 [place], [place] 367176 Assigned Behavioral Health Provider12/26/2510 Marita Chisholm [facility] [address] [place], [place] 327334 ArdcptfbfiSuyuavshew43/22/25documented as of this encounter
--- OUTSIDE RECORDS SUMMARY | 2025-04-23 05:04 | XMS_ITS | Encounter Summary ---
Author Organization [facility] Address [address] [place] [address] Care Team Providers Care Enrober Name Role Phone Cindy Ruiz Unavailable [phone] Trevor Espino MD Unavailable [phone] Jaci Whitlock APRN CHINESE TEACHER Unavailable + Doris Ricci MD Unavailable [phone] Yudy Pompa MD Unavailable Mary Carmen Rodriguez MD Unavailable + Herber Lopez MD Unavailable [phone] [facility] MD Unavailable [phone] Mamadou Bowie MD Primary Care Provider [phone] Mamadou Bowie MD Unavailable Makenzie Romano MD Unavailable Shani Stephenson MD Unavailable [phone] Ita Newton Unavailable Unavailable Kenya Jennings MD Unavailable + [phone] Herber Lopez MD Unavailable [phone] Сергей Dumont [facility] Unavailable Unavailable Kenya Jennings MD Unavailable [phone] Carmen Cole PA-C Unavailable [phone] Marita Chisholm [facility] Unavailable [phone] Racheal Ng MD Unavailable + [phone] Marita Chisholm Kenya [facility] Unavailable + [phone] Encounter Details DateTypeDepartmentCare Team (Latest Contact Info)Dnbgiwhgztz65/01/2025Travel Social History Tobacco UseTypesPacks/DayYears UsedDateSmoking Tobacco: NeverPassive Smoke Exposure: NeverSmokeless Tobacco: NeverAlcohol UseStandard Drinks/WeekComments Not Currently0 (1 standard drink = 0.6 oz pure alcohol)1 drink every couple of weeksSocial Connection and Isolation PanelAnswerDate RecordedFrequency of Communication with Friends and FamilyNot on file04/02/2024How often do you get together with friends or relatives?Three times a week04/02/2024ttends Temple ServicesNot on file04/02/2024ctive Member of Clubs or OrganizationsNot on file 04/02/2024ttends Club or Organization MeetingsNot on file04/02/2024Marital StatusNot on file04/02/2024HQ-2AnswerDate RecordedPHQ-2 Pcfzy96405/19/2024[facility] [place] of Occupational Health - Occupational Stress QuestionnaireAnswerDate RecordedDo you feel stress - tense, restless, nervous, or anxious, or unable to sleep at night because yourmind is troubled all the time - these days?Only a xatfyx9004/02/2024Exercise Vital SignAnswerDate RecordedOn average, how many days [...] ex-partner?No03/23/2025CommentsNoSex and Gender InformationValueDate RecordedSex Assigned at ThhtkSwghrj99/12/2021 10:33 PM CDTLegal SexFemale 03/09/2012 3:58 AM CSTGender Rnesjuqecmfrb30/12/2021 10:33 PM CDTSexual FpufenkbmzhZbpmble22/17/2020 4:20 AM CSTdocumented as of this encounter Plan of Treatment DateTypeDepartmentCare Team (Latest Contact Info)Gtfieaqqqph37/29/2025 4:00 PM CSTOffice Visit [facility] [place] [address] [facility] [address] 4th [place] [address] Kenya Jennings MD [address] [place] [address] 195 [place], [place] 2058[address] 05/20/2025 1:00 PM CSTOffice Visit [facility] [address] [facility] 255 [place] [address] Racheal Ng MD [address] [place] [place] [address] F282 [place], [place] 5620[address] 05/25/2025 10:40 AM CSTOffice Visit [facility] Mental Health & Addiction [address] F[address] [phone] Yael Reaves MD [address] [place] [address] 08/17/2025 12:15 PM CDTOffice Visit [facility] Dermatology Clinic [address] 3rd [place] [phone] Herber Lopez MD 420 [facility] 98 [place], [place] 07[address] 01/14/2026 1:40 PM CDTAncillary Procedure [facility] Imaging Center CT Clinic [place] [address] [place] [address] 1st [place] [phone] Yudy Pompa MD [address] [place] [address] 254755 01/18/2026 1:20 PM CDTOncology Visit [facility] [address] [place] [phone] Yudy Pompa MD [address] [place] [address] 587935 documented as of this encounter Goals GoalPatient Goal TypeAssociated ProblemsRecent ProgressPatient-Stated?Author MYC ECC SURG ENROLL Care PlanMyC ECC SURG ENROLLNoSpearFina murray Jdocumented as of this encounter Visit Diagnoses Not on filedocumented in this encounter Additional Health Concerns Active ProblemsNoted DateDiagnosed DateMyC ECC SURG [id number] Noted TimePHQ-9 Depression Total Score: 11:51 AM CSTdocumented as of this encounter Care Teams Team MemberRelationshipSpecialtyStart DateEnd Mamadou Bowie MD 909 [place] [address] PCP - Pqgoapm61/13/23 Cindy Ruiz [facility] [place] [facility] [place] [address] ResidentInternal Medicine12/07/14 Trevor Espino MD [address] [place] [address] 547415 MDUrolog05/16/16 Jaci Whitlock APRN CHINESE TEACHER [address] [place] [address] 090715 Nurse Practitioner - Women's Health12/14/16 Doris Ricci MD [facility] & [address] [address] PhysicianInternal Medicine07/11/20 Yudy Pompa MD [address] [place] [address] 698895 Assigned Cancer Care Provider08/21/20 Mary Carmen Rodriguez MD [address] 672965 MDDermatology11/09/20 Herber Lopez MD [address] [place] [address] MDDermapathology11/09/20 Gloria Elizalde MD [address] [place] [address] Resident12/24/22 Mamadou Bowie MD [address] [place] [address] Assigned PCP03/23/23 Makenzie Romano MD [address] [place] [address] 330714 MDPsychiatry & Neurology - Child & Adolescent Psychiatry11/08/23 Shani Stephenson MD [address] [place] [address] ResidentPsychiatry11/08/23 Ita Newton Specialty Care Coordinator06/04/24 Kenya Jennings MD [address] [place] [address] MDPlastic Surgery06/04/24 Herber Lopez MD [address] [place] [address] Assigned Dermatology Provider07/26/24 Сергей Dumont, [facility] Social Worker08/13/24 Kenya Jennings MD [address] [place] [address] Assigned Surgical Provider08/26/24 Carmen Cole PA-C 6363 [facility] [place] [address]46215 Assigned Sleep Provider09/25/24 Marita Chisholm RPH [address] [place] [address] MxmcedjowdVymsrpwbzq97/22/25 Racheal Ng MD [address] [place] [address] Assigned Behavioral Health Mblqqnst89/23/25 Marita Chisholm RPH [address] [place] [address] Assigned MTM Otspipugqr04/23/25documented as of this encounter
--- OUTSIDE RECORDS SUMMARY | 2025-04-23 05:04 | XMS_ITS | Encounter Summary ---
Author Organization [place] Address [address] [place] [address] Care Team Providers Care Deputy Fire Chief Name Role Phone Cindy Ruiz Unavailable [phone] Trevor Espino MD Unavailable [phone] Jaci Whitlock APRN GLOBE CLEANER Unavailable + Doris Ricci MD Unavailable [phone] Yudy Pompa MD Unavailable [phone] Mary Carmen Rodriguez MD Unavailable + Herber Lopez MD Unavailable [phone] [facility] MD Unavailable [phone] Mamadou Bowie MD Primary Care Provider [phone] Mamadou Bowie MD Unavailable Makenzie Romano MD Unavailable [phone] Shani Stephenson MD Unavailable [phone] Ita Newton Unavailable Unavailable Kenya Jennings MD Unavailable + [phone] Herber Lopez MD Unavailable +[phone] Сергей Dumont [facility] Unavailable Unavailable Kenya Jennings MD Unavailable [phone] Carmen Cole PA-C Unavailable [phone] Marita Chisholm [facility] Unavailable [phone] Racheal Ng MD Unavailable [phone] Marita Chisholm [facility] Unavailable + [phone] Reason for Visit * ReasonCommentsMedication Refill Encounter Details DateTypeDepartmentCare Team (Latest Contact Info)Chzxhhpdlof20/16/2025Refill [facility] [address] [facility] [address] [place] [address] Racheal Ng MD [address] [place] 9345382 [place] [address] Medication Refill Social History Tobacco UseTypesPacks/DayYears UsedDateSmoking Tobacco: NeverPassive Smoke Exposure: NeverSmokeless Tobacco: NeverAlcohol UseStandard Drinks/WeekComments Not Currently0 (1 standard drink = 0.6 oz pure alcohol)1 drink every couple of weeksPHQ-2AnswerDate RecordedPHQ-2 Sxnzr46406/17/2024[facility] [place] of Occupational Health - Occupational Stress QuestionnaireAnswerDate RecordedDo you feel stress - tense, restless, nervous, or anxious, or unable to sleep at night because yourmind is troubled all the time - these days?Only a ojneau9604/15/2025 Exercise Vital SignAnswerDate RecordedOn average, how many days per week do you engage in moderate to strenuous exercise (like a brisk walk)?4 days04/15/2025On average, how many minutes do you engage in exercise at this level?20 min 04/15/2025dolescent EducationAnswerDate RecordedGetting School Help NeededNot on file01/29/2023Social ConnectionsAnswerDate RecordedHow often do you feel lonely or isolated from those around you?Nimyln3804/15/2025Food InsecurityAnswer Date RecordedWithin the past 12 months, [...] abandoned building, in an overnight chcf, or couch-surfing.)Yes04/15/2025re you worried about losing your [...] ex-partner?No04/16/2025CommentsNoSex and Gender InformationValueDate RecordedSex Assigned at QhbxhEqbfvp44/12/2021 10:33 PM CDTLegal HgjPgxprn78/04/2012 3:58 AM CSTGender Luawsrpnapeqt84/12/2021 10:33 PM CDTSexual KnvvcsxwjrzMiggwux01/17/2020 4:20 AM CSTdocumented as of this encounter Miscellaneous Notes * Telephone Encounter - Stefanie Hartman RN - 04/22/2025 11:10 AM CST Last seen: 02/25/25 RTC: 03/18 follow-up Cancel: Yes No-show: No Next appt: 05/20/25 Incoming refill from Pharmacy Medication requested: prazosin (MINIPRESS) 1 MG capsule Directions: Take 1 capsule (1 mg) by mouth 3 times daily as needed (hypervigilance) Qty: 270 capsule with 0 refill Last refilled: 10/23/25 Medication refill approved per refill protocol ARCH STUDY ASSISTANT documented in this encounter Plan of Treatment DateTypeDepartmentCare Team (Latest Contact Info)Pisjxclcygc88/29/2025 4:00 PM CSTOffice Visit [facility] Plastic and Reconstructive Surgery Clinic [address] 4th [place] [phone] Kenya Jennings MD [address] [place] [address] 195 [place], [place] 391125 05/20/2025 1:00 PM CSTOffice Visit [facility] 57[address] [facility] 255 [place] [address] Racheal Ng MD [address] [place] [address] [address] [place], [place] [phone] 05/25/2025 10:40 AM CSTOffice Visit [facility] Mental Health & Addiction [address] [phone] Yael Reaves MD [address] [place] [address] 905204 08/17/2025 12:15 PM CDTOffice Visit [facility] Dermatology Clinic [address] 3rd [place] [phone] Herber Lopez MD [address] [place] [address] 98 [place], [place] 606415 01/14/2026 1:40 PM CDTAncillary Procedure [facility] Imaging Center CT Clinic [address] 1st [place] [phone] Yudy Pompa MD [address] [place] [address] 171555 01/18/2026 1:20 PM CDTOncology Visit [facility] Cancer Clinic 909 [place] [address] Yudy Pompa MD [address] [place] [address] 841725 documented as of this encounter Goals GoalPatient Goal TypeAssociated ProblemsRecent ProgressPatient-Stated?Author MYC ECC SURG ENROLL Care PlanMy ECC SURG ENROLLNoSpFina horn Jdocumented as of this encounter Visit Diagnoses Diagnosis PTSD (post-traumatic stress disorder) Posttraumatic stress disorder documented in this encounter Additional Health Concerns Active ProblemsNoted DateDiagnosed DateAt[facility] [place] ECC SURG [id number] Noted TimePHQ-9 Depression Total Score: 7106/16/2024 9:06 PM CSTdocumented as of this encounter Care Teams Team MemberRelationshipSpecialtyStart DateEnd Date Mamadou Bowie MD [address] [place] [address] PCP - Txxopqq01/13/23 Cindy Ruiz [facility] [place] [address] ResidentInternal Medicine12/07/14 Trevor Espino MD [address] [place] [address] Urolog05/16/16 Jaci Whitlock APRN GLOBE CLEANER [address] [place] [address] 395 [place] [address] Nurse Practitioner - Women's Health12/14/16 Doris Ricci MD [facility] 1999 [place] [address] PhysicianInternal Medicine07/11/20 Yudy Pompa MD [address] [place] [address] 708425 Assigned Cancer Care Provider08/21/20 Mary Carmen Rodriguez MD [address] [place] [address] 322045 MDDermatology11/09/20 Herber Lopez MD [address] [place] [address] 909185 MDDermapathology11/09/20 Gloria Elizalde MD [address] [place] [address] 238465 Resident12/24/22 Mamadou Bowie MD [address] [place] [address] 178335 Assigned PCP03/23/23 Makenzie Romano MD [address] [place] [address] 661214 MDPsychiatry & Neurology - Child & Adolescent Psychiatry11/08/23 Shani Stephenson MD [address] [place] [address] 789445 ResidentPsychiatry11/08/23 Ita Newton Specialty Care Coordinator06/04/24 Keyna Jennings MD [address] [place] [address] MDPlastic Surgery06/04/24 Herber Lopez MD 420 [facility] 98 [place] [address] Assigned Dermatology Provider07/26/24 Сергей Dumont, [facility] Social Worker08/13/24 Kenya Jennings MD 420 [facility] 195 [place] [address] Assigned Surgical Provider08/26/24 Carmen Cole PA-C [address] 487065 Assigned Sleep Provider09/25/24 Marita Chisholm [facility] [address] [place] [address] 262034 XkeprethqcSqnnmflfth05/22/25 Racheal Ng MD [address] [place] [address] [phone] Assigned Behavioral Health Viadcgcm54/23/25 Marita Chisholm [facility] [address] [place] [address] [phone] Assigned MTM Dnrktxibiy50/23/25documented as of this encounter
--- OUTSIDE RECORDS SUMMARY | 2025-04-23 05:04 | XMS_ITS | Encounter Summary ---
Author Organization [facility] Address [address] [place] [address] 18256 Care Team Providers Care Belt Polisher Name Role Phone Cindy Ruiz Unavailable Trevor Espino MD Unavailable [phone] Jaci Whitlock APRN [employer]CHER ALL ROUND Unavailable + Doris Ricci MD Unavailable Yudy Pompa MD Unavailable [phone] Mary Carmen Rodriguez MD Unavailable + Herber Lopez MD Unavailable +[phone] Gloria Elizalde MD Unavailable [phone] Mamadou Bowie MD Primary Care Provider [phone] Mamadou Bowie MD Unavailable Makenzie Romano MD Unavailable [phone] Shani Stephenson MD Unavailable [phone] Ita Newton Unavailable Unavailable Kenya Jennings MD Unavailable Herber Lopez MD Unavailable +[phone] Сергей Dumont [facility] Unavailable Unavailable Kenya Jennings MD Unavailable Carmen Cole PA-C Unavailable +[phone] Jesse Arvizu MD Unavailable Marita Chisholm [facility] Unavailable +[phone] Encounter Details DateTypeDepartmentCare Team (Latest Contact Info)Epwykgclskp06/31/2025[facility] Medical Advice [facility] [address] [place] [address] Racheal Ng MD 8748 [facility] [address] [place] [address] Social History Tobacco UseTypesPacks/DayYears UsedDateSmoking Tobacco: NeverPassive Smoke Exposure: NeverSmokeless Tobacco: NeverAlcohol UseStandard Drinks/WeekComments Not Currently0 (1 standard drink = 0.6 oz pure alcohol)1 drink every couple of weeksSocial Connection and Isolation PanelAnswerDate RecordedFrequency of Communication with Friends and FamilyNot on file04/02/2024How often do you get together with friends or relatives?Three times a week04/02/2024ttends Hindu ServicesNot on file04/02/2024ctive Member of Clubs or OrganizationsNot on file 04/02/2024ttends Club or Organization MeetingsNot on file04/02/2024Marital StatusNot on file04/02/2024HQ-2AnswerDate RecordedPHQ-2 Sznlg06605/12/2024[facility] [place] of Occupational Health - Occupational Stress QuestionnaireAnswerDate RecordedDo you feel stress - tense, restless, nervous, or anxious, or unable to sleep at night because yourmind is troubled all the time - these days?Only a tbvtpb5704/02/2024Exercise Vital SignAnswerDate RecordedOn average, how many days per week do you engage in moderate to strenuous exercise (like a brisk walk)?5 days04/02/2024On average, how many minutes do you engage in exercise at this level?40 min04/02/2024dolescent EducationAnswerDate RecordedGetting School Help NeededNot on file01/29/2023Food InsecurityAnswerDate RecordedWithin the past 12 months, did you worry that your food would run out before you got money to buy more?No08/17/2025Within the past 12 months, did the food you bought just not last and you didn???t have money to getmore?No12/20/2024Housing StabilityAnswer Date RecordedDo you have housing? (Housing is defined as stable permanent housing and does not include staying outside in a car, in a tent, in an abandoned building, in an overnight alf, or couch-surfing.)Yes12/20/2024re you worried about losing your [...] ex-partner?No03/19/2023CommentsNoSex and Gender InformationValueDate RecordedSex Assigned at QydokIxfyfx47/12/2021 10:33 PM CDTLegal SexFemale 03/09/2012 3:58 AM CSTGender Mdvdobhsiuolo88/12/2021 10:33 PM CDTSexual TsdaoidlrmyJdpkyyd02/17/2020 4:20 AM CSTdocumented as of this encounter Plan of Treatment DateTypeDepartmentCare Team (Latest Contact Info)Nibhjviosyp97/29/2025 4:00 PM CSTOffice Visit [facility] [address] 4th [place] [address] Kenya Jennings MD [address] [place] [address] 05/20/2025 1:00 PM CSTOffice Visit [facility] [address] [place] [phone] Racheal Ng MD 2450 [facility] [address] [place], [place] 9[address]214 05/25/2025 10:40 AM CSTOffice Visit [facility] Mental Health & Addiction [facility] 2nd [address] [address] Yael Reaves MD [facility]0 [place], [place] 154944 08/17/2025 12:15 PM CDTOffice Visit [facility] Dermatology Clinic [address] 3rd [place] [phone] Herber Lopez MD 420 [facility] 98 [place], [place] 572225 01/14/2026 1:40 PM CDTAncillary Procedure [facility] Imaging Center CT Clinic [address] 1st [place] [phone] Yudy Pompa MD [address] [place] [address] 196565 01/18/2026 1:20 PM CDTOncology Visit [facility] [address] [place] [address] Yudy Pompa MD [address] [place] [address] 088735 documented as of this encounter Goals GoalPatient Goal TypeAssociated ProblemsRecent ProgressPatient-Stated?Author MYC ECC SURG ENROLL Care PlanMyC ECC SURG ENROLLNoSpears, Fina Jdocumented as of this encounter Visit Diagnoses Not on filedocumented in this encounter Additional Health Concerns Active ProblemsNoted DateDiagnosed DateMyC ECC SURG [id number] Noted TimePHQ-9 Depression Total Score: 7:26 PM CDTdocumented as of this encounter Care Teams Team MemberRelationshipSpecialtyStart DateEnd Date Mamadou Bowie MD [address] [place] [address] 170925 PCP - Pytlzyg06/13/23 Cindy Ru[place] [address] ResidentInternal Medicine12/07/14 Trevor Espino MD [address] [place] [address] 491795 MDUrolog05/16/16 Jaci Whitlock APRN [employer]CHER ALL ROUND [address] [place] [address] 395 [place], [place] 741125 Nurse Practitioner - Women's Health12/14/16 Doris Ricci MD [facility] 1999 [place] [address] PhysicianInternal Medicine07/11/20 Yudy Pompa MD [address] [place] [address] 201905 Assigned Cancer Care Provider08/21/20 Mary Carmen Rodriguez MD [address] [place] [address] 98 [place] [address] MDDermatology11/09/20 Herber Lopez MD [address] [place] [address] MDDermapathology11/09/20 Gloria Elizalde MD [address] [place] [address] 824735 Resident12/24/22 Mamadou Bowie MD [address] [place] [address] 523215 Assigned PCP03/23/23 Makenzie Romano MD [address] [place] [address] 001114 MDPsychiatry & Neurology - Child & Adolescent Psychiatry11/08/23 Shani Stephenson MD [address] [place] [address] 777535 ResidentPsychiatry11/08/23 Ita Newton Specialty Care Coordinator06/04/24 Kenya Jennings MD [address] [place] [address] 091265 MDPlastic Surgery06/04/24 Herber Lopez MD [address] [place] [address] 591775 Assigned Dermatology Provider07/26/24 Сергей Dumont [facility] Social Worker08/13/24 Kenya Jennings MD [address] [place] [address] 790225 Assigned Surgical Provider08/26/24 Carmen Cole PA-C [address] [place] [address] Assigned Sleep Provider09/25/24 Jesse Arvizu MD 5775 [place], [place] 501786 Assigned Behavioral Health Provider12/26/2510 Marita Chisholm [facility] [address] [place], [place] 254834 QpeeogtcxaUyzeekepkx04/22/25documented as of this encounter
--- OUTSIDE RECORDS SUMMARY | 2025-04-23 05:04 | XMS_ITS | Encounter Summary ---
Author Organization [facility] Address [address] [place] [address] Care Team Providers Care Radio Time Salesperson Name Role Phone Cindy Ruiz Unavailable [phone] Trevor Espino MD Unavailable [phone] Jaci Whitlock APRN WAREHOUSE ASSEMBLY WORKER Unavailable + Doris Ricci MD Unavailable [phone] Yudy Pompa MD Unavailable [phone] Mary Carmen Rodriguez MD Unavailable + Herber Lopez MD Unavailable [phone] [facility]available [phone] Mamadou Bowie MD Primary Care Provider [phone] Mamadou Bowie MD Unavailable Makenzie Romano MD Unavailable [phone] Shani Stephenson MD Unavailable [phone] Ita Newton Unavailable Unavailable Kenya Jennings MD Unavailable + [phone] Herber Lopez MD Unavailable +[phone] Сергей Dumont [facility] Unavailable Unavailable Kenya Jennings MD Unavailable +[phone] Carmen Cole PA-C Unavailable +[phone] Marita Chisholm [facility] Unavailable [phone] Racheal Ng MD Unavailable [phone] Marita Chisholm Kenya [facility] Unavailable + [phone] Encounter Details DateTypeDepartmentCare Team (Latest Contact Info)Ttqweotcfwb31/18/2025Telephone [facility] 5775 [facility] [address] [place] [address] Jesse Arvizu MD 5783 [place] [address] Social History Tobacco UseTypesPacks/DayYears UsedDateSmoking Tobacco: NeverPassive Smoke Exposure: NeverSmokeless Tobacco: NeverAlcohol UseStandard Drinks/WeekComments Not Currently0 (1 standard drink = 0.6 oz pure alcohol)1 drink every couple of weeksPHQ-2AnswerDate RecordedPHQ-2 Gnqcp33506/17/2024[facility] [place] of Occupational Health - Occupational Stress QuestionnaireAnswerDate RecordedDo you feel stress - tense, restless, nervous, or anxious, or unable to sleep at night because yourmind is troubled all the time - these days?Only a jaeovs7604/15/2025 Exercise Vital SignAnswerDate RecordedOn average, how many days per week do you engage in moderate to strenuous exercise (like a brisk walk)?4 days04/15/2025On average, how many minutes do you engage in exercise at this level?20 min 04/15/2025dolescent EducationAnswerDate RecordedGetting School Help NeededNot on file01/29/2023Social ConnectionsAnswerDate RecordedHow often do you feel lonely or isolated from those around you?Hdtiff8904/15/2025Food InsecurityAnswer Date RecordedWithin the past 12 months, [...] abandoned building, in an overnight fci, or couch-surfing.)Yes04/15/2025re you worried about losing your [...] ex-partner?No04/16/2025CommentsNoSex and Gender InformationValueDate RecordedSex Assigned at PlzldXtzovm97/12/2021 10:33 PM CDTLegal OyjHdlukv37/04/2012 3:58 AM CSTGender Nfofkkdrhnrsh11/12/2021 10:33 PM CDTSexual NmjidqfocorPjwiiso23/17/2020 4:20 AM CSTdocumented as of this encounter Miscellaneous Notes * Telephone Encounter - Verónica Escobar - 04/22/2025 10:57 AM CST LVM to discuss TMS scheduling LATION HOSEMAN documented in this encounter Plan of Treatment DateTypeDepartmentCare Team (Latest Contact Info)Uadfvgfwory32/29/2025 4:00 PM CSTOffice Visit [facility] [address] 4th [place] [address] Kenya Jennings MD [address] [place] [address] 128165 05/20/2025 1:00 PM CSTOffice Visit [facility] [address] [place] [address] Racheal Ng MD 2450 [facility] [address] [place], [place] [address] 05/25/2025 10:40 AM CSTOffice Visit [facility] Mental Health & Addiction [facility] 2nd [facility] F[address] [phone] Yael Reaves MD [facility] [place], [place] 204[address] 08/17/2025 12:15 PM CDTOffice Visit [facility] Dermatology Clinic [address] 3rd [place] [phone] Herber Lopez MD 420 [facility] 98 [place], [place] 7[address]45 01/14/2026 1:40 PM CDTAncillary Procedure [facility] Imaging Center CT Clinic [address] 1st [place] [phone] Yudy Pompa MD [address] [place] [address] 191705 01/18/2026 1:20 PM CDTOncology Visit [facility] [address] [place] [address] Yudy Pompa MD [address] [place] [address] 642585 documented as of this encounter Goals GoalPatient Goal TypeAssociated ProblemsRecent ProgressPatient-Stated?Author MYC ECC SURG ENROLL Care [facility]In[facility] ECC SURG ENROLLNoSpearFina murray Jdocumented as of this encounter Visit Diagnoses Not on filedocumented in this encounter Additional Health Concerns Active ProblemsNoted DateDiagnosed DateMy ECC SURG [id number] Noted TimePHQ-9 Depression Total Score: 7106/16/2024 9:06 PM CSTdocumented as of this encounter Care Teams Team MemberRelationshipSpecialtyStart DateEnd Date Mamadou Bowie MD [address] [place] [address] 635295 PCP - Xhzosen86/13/23 Cindy Ruiz [employer] Formerly named [facility] [address] [place], [place] 658550 ResidentInternal Medicine12/07/14 Trevor Espino MD [address] [place] [address] 964265 MDUrolog05/16/16 Jaci Whitlock APRN WAREHOUSE ASSEMBLY WORKER [address] [place] [address] 816075 Nurse Practitioner - Women's Health12/14/16 Doris Ricci MD [facility] 1999 [place] [address] PhysicianInternal Medicine07/11/20 Yudy Pompa MD [address] [place] [address] 539245 Assigned Cancer Care Provider08/21/20 Mary Carmen Rodriguez MD [address] [address] MDDermatology11/09/20 Herber Lopez MD [address] [place] [address] MDDermapathology11/09/20 Gloria Elizalde MD [address] [place] [address] Resident12/24/22 Mamadou Bowie MD [address] [place] [address] Assigned PCP03/23/23 Makenzie Romano MD [address] [place] [address] MDPsychiatry & Neurology - Child & Adolescent Psychiatry11/08/23 Shani Stephenson MD [address] [place] [address] ResidentPsychiatry11/08/23 Ita Newton Specialty Care Coordinator06/04/24 Kenya Jennings MD [address] [place] [address]75 MDPlastic Surgery06/04/24 Herber Lopez MD [address] [place] [address] 284[address] Assigned Dermatology Provider07/26/24 Сергей Dumont, [facility] Social Worker08/13/24 Kenya Jennings MD [address] [place] [address] [place] [address] Assigned Surgical Provider08/26/24 Carmen Cole PA-C 6363 [facility] 103 [place], [place] 561075 Assigned Sleep Provider09/25/24 Martia Chisholm [facility] [address] [place] [address] WcsqvapbjgPtabhcaret31/22/25 Racheal Ng MD [facility] [address] [address] Assigned Behavioral Health Uqqyzhwc95/23/25 Marita Chisholm Rolando [address] [place] [address] Assigned MTM Jhuqmjksgs82/23/25documented as of this encounter
--- OUTSIDE RECORDS SUMMARY | 2025-04-23 05:04 | XMS_ITS | Encounter Summary ---
Author Organization [place] Address [address] [place] [address]44 Care Team Providers Care Air Support Operations Operator Name Role Phone Cindy Ruiz Unavailable [phone] Trevor Espino MD Unavailable [phone] Jaci Whitlock APRN HOSE BUILDER Unavailable + Doris Ricci MD Unavailable [phone] Yudy Pompa MD Unavailable [phone] Mary Carmen Rodriguez MD Unavailable + Herber Lopez MD Unavailable +[phone] [facility] MD Unavailable [phone] Mamadou Bowie MD Primary Care Provider [phone] Mamadou Bowie MD Unavailable Makenzie Romano MD Unavailable Shani Stephenson MD Unavailable [phone] Ita Newton Unavailable Unavailable Kenya Jennings MD Unavailable + [phone] Herber Lopez MD Unavailable [phone] Сергей Dumont [facility] Unavailable Unavailable Kenya Jennings MD Unavailable +[phone] Carmen Cole PA-C Unavailable +[phone] Marita Chisholm [facility] Unavailable [phone] Racheal Ng MD Unavailable Marita Chisholm [facility] Unavailable +- [phone] Encounter Details DateTypeDepartmentCare Team (Latest Contact Info)Patdxyvuwkr82/09/2025[facility] Medical Advice [facility] 5775 [facility] [address] [place] [address] Racheal Ng MD 3820 [facility] [address] [place] [address] Social History Tobacco UseTypesPacks/DayYears UsedDateSmoking Tobacco: NeverPassive Smoke Exposure: NeverSmokeless Tobacco: NeverAlcohol UseStandard Drinks/WeekComments Not Currently0 (1 standard drink = 0.6 oz pure alcohol)1 drink every couple of weeksPHQ-2AnswerDate RecordedPHQ-2 Ofvej51706/17/2024[facility] [place] of Occupational Health - Occupational Stress QuestionnaireAnswerDate RecordedDo you feel stress - tense, restless, nervous, or anxious, or unable to sleep at night because yourmind is troubled all the time - these days?Only a jpevlz4404/15/2025 Exercise Vital SignAnswerDate RecordedOn average, how many days per week do you engage in moderate to strenuous exercise (like a brisk walk)?4 days04/15/2025On average, how many minutes do you engage in exercise at this level?20 min 04/15/2025dolescent EducationAnswerDate RecordedGetting School Help NeededNot on file01/29/2023Social ConnectionsAnswerDate RecordedHow often do you feel lonely or isolated from those around you?Inikzp5404/15/2025Food InsecurityAnswer Date RecordedWithin the past 12 months, [...] abandoned building, in an overnight long-term, or couch-surfing.)Yes04/15/2025re you worried about losing your [...] ex-partner?No04/16/2025CommentsNoSex and Gender InformationValueDate RecordedSex Assigned at WhvkqJbssym33/12/2021 10:33 PM CDTLegal GygZkrkkr33/04/2012 3:58 AM CSTGender Ecnhngzwykfjs34/12/2021 10:33 PM CDTSexual IlwcgyrymjbMuzlxcz30/17/2020 4:20 AM CSTdocumented as of this encounter Plan of Treatment DateTypeDepartmentCare Team (Latest Contact Info)Rujohgycnpp39/29/2025 4:00 PM CSTOffice Visit [facility]astic [facility] [place] 909 [facility] 4th [place] [address] Kenya Jennings MD [address] [place] [address] 195 [place], [place] 255845 05/20/2025 1:00 PM CSTOffice Visit [facility] [address] [facility] 255 [place] [address] Racheal Ng MD [address] [place] [address] F[address] [place], [place] 446084 05/25/2025 10:40 AM CSTOffice Visit [facility] Mental Health & Addiction [address] [phone] Yael Reaves MD [address] [place] [address] 08/17/2025 12:15 PM CDTOffice Visit [facility] Dermatology Clinic [address] 3rd [place] [phone] Herber Lopez MD [address] [place] [address] 98 [place], [place] 443825 01/14/2026 1:40 PM CDTAncillary Procedure [facility] Imaging Center CT Clinic [address] 1st [place] [phone] Yudy Pompa MD [address] [place] [address] 63035455 01/18/2026 1:20 PM CDTOncology Visit [facility] [address] [place] [phone] Yudy Pompa MD [address] [place] [address] 544605 documented as of this encounter Goals GoalPatient Goal TypeAssociated ProblemsRecent ProgressPatient-Stated?Author MYC ECC SURG ENROLL Care PlanMyC ECC SURG ENROLLNoSpFina horndocumented as of this encounter Visit Diagnoses Not on filedocumented in this encounter Additional Health Concerns Active ProblemsNoted DateDiagnosed DateMyC ECC SURG [id number] Noted TimePHQ-9 Depression Total Score: 11:51 AM CSTdocumented as of this encounter Care Teams Team MemberRelationshipSpecialtyStart DateEnd Mamadou Bowie MD 909 [place] [address] PCP - Jwzuavp52/13/[address] Ru[place] [address] ResidentInternal Medicine12/07/14 Trevor Espino MD [address] [place] [address] 386055 MDUrolog05/16/16 Jaci Whitlock APRN HOSE BUILDER [address] [place] [address] 826625 Nurse Practitioner - Women's Health12/14/16 Doris Ricci MD [facility] & [address] [address] PhysicianInternal Medicine07/11/20 Yudy Pompa MD [address] [place] [address] 360675 Assigned Cancer Care Provider08/21/20 Mary Carmen Rodriguez MD [address] 927715 MDDermatology11/09/20 Herber Lopez MD [address] [place] [address] MDDermapathology11/09/20 Gloria Elizalde MD [address] [place] [address] Resident12/24/22 Mamadou Bowie MD [address] [place] [address] Assigned PCP03/23/23 Makenzie Romano MD [address] 052624 MDPsychiatry & Neurology - Child & Adolescent Psychiatry11/08/23 Shani Stephenson MD [address] [place] [address] ResidentPsychiatry11/08/23 Ita Newton Specialty Care Coordinator06/04/24 Kenya Jennings MD [address] [place] [address] 195 [place] [address] MDPlastic Surgery06/04/24 Herber Lopez MD [address] [place] [address] 98 [place] [address] Assigned Dermatology Provider07/26/24 Сергей Dumont, [facility] Social Worker08/13/24 Kenya Jennings MD [address] [place] [address] Assigned Surgical Provider08/26/24 Carmen Cole PA-C [address] 046165 Assigned Sleep Provider09/25/24 Marita Chisholm [facility] [address] [place] [address] 067114 VdecojfsgqBcykmwsano96/22/25 Racheal Ng MD [address] [place] [address] 687954 Assigned Behavioral Health Wxmspgxh32/23/25 Marita Chisholm [facility] [address] [place] [address] 36877454 Assigned MTM Sdbxkfgqsw45/23/25documented as of this encounter
--- OUTSIDE RECORDS SUMMARY | 2025-04-23 05:04 | XMS_ITS | Encounter Summary ---
Author Organization [place] Address [address] [place] [address] Care Team Providers Care Clay Carman Name Role Phone Cindy Ruiz Unavailable [phone] Trevor Espino MD Unavailable [phone] Jaci Whitlock APRN WRAPPER OFF Unavailable + Doris Ricci MD Unavailable +[phone] Yudy Pompa MD Unavailable [phone] Mary Carmen Rodriguez MD Unavailable + Herber Lopez MD Unavailable +[phone] [facility] ServicesGloria MD Unavailable +[phone] Mamadou Bowie MD Primary Care Provider [phone] Mamadou Bowie MD Unavailable Makenzie Romano MD Unavailable [phone] Shani Stephenson MD Unavailable [phone] Ita Newton Unavailable Unavailable Kenya Jennings MD Unavailable + [phone] Herber Lopez MD Unavailable +[phone] Сергей Dumont [facility] Unavailable Unavailable Kenya Jennings MD Unavailable +[phone] Carmen Cole PA-C Unavailable +[phone] Marita Chisholm [facility] Unavailable [phone] Racheal Ng MD Unavailable + [phone] Marita Chisholm Kenya [facility] Unavailable + [phone] Encounter Details DateTypeDepartmentCare Team (Latest Contact Info)Rhfnugfihzc10/11/2025Travel Social History Tobacco UseTypesPacks/DayYears UsedDateSmoking Tobacco: NeverPassive Smoke Exposure: NeverSmokeless Tobacco: NeverAlcohol UseStandard Drinks/WeekComments Not Currently0 (1 standard drink = 0.6 oz pure alcohol)1 drink every couple of weeksPHQ-2AnswerDate RecordedPHQ-2 Cvchs78906/17/2024[facility] [place] of Occupational Health - Occupational Stress QuestionnaireAnswerDate RecordedDo you feel stress - tense, restless, nervous, or anxious, or unable to sleep at night because yourmind is troubled all the time - these days?Only a hdmnvg0604/15/2025 Exercise Vital SignAnswerDate RecordedOn average, how many days per week do you engage in moderate to strenuous exercise (like a brisk walk)?4 days04/15/2025On average, how many minutes do you engage in exercise at this level?20 min 04/15/2025dolescent EducationAnswerDate RecordedGetting School Help NeededNot on file01/29/2023Social ConnectionsAnswerDate RecordedHow often do you feel lonely or isolated from those around you?Cibeuz1204/15/2025Food InsecurityAnswer Date RecordedWithin the past 12 months, [...] building, in an overnight long term, or couch-surfing.)Yes04/15/2025re you worried about losing your [...] ex-partner?No04/16/2025CommentsNoSex and Gender InformationValueDate RecordedSex Assigned at AblfuYbkpxf24/12/2021 10:33 PM CDTLegal NkpBhccpk72/04/2012 3:58 AM CSTGender Lcrdwzlpaqvuh07/12/2021 10:33 PM CDTSexual LfwiyfvovycOyoocvm38/17/2020 4:20 AM CSTdocumented as of this encounter Plan of Treatment DateTypeDepartmentCare Team (Latest Contact Info)Njwbifwwxdc22/29/2025 4:00 PM CSTOffice Visit [facility] [place] [address] [facility] [address] 4th [place] [phone] Kenya Jennings MD 420 [facility] 195 [place], [place] 0[address]25 05/20/2025 1:00 PM CSTOffice Visit [facility] [address] [place] [address] [place] [address] [place], [place] 28[address] [place], [place] 47[address] 05/25/2025 10:40 AM CSTOffice Visit [facility] Mental Health & Addiction [address] [place] [phone] Yael Reaves MD 2450 [place], [place] 883084 08/17/2025 12:15 PM CDTOffice Visit [facility] D[facility]atology Clinic [address] 3rd [place] [phone] Herber Lopez MD 420 [facility] 98 [place], [place] [address]2345 01/14/2026 1:40 PM CDTAncillary Procedure [facility] [address]st [place] [phone] Yudy Pompa MD [address] [place] [address]195 01/18/2026 1:20 PM CDTOncology Visit [facility] [address] [place] [address] Yudy Pompa MD [address] [place] [address] [phone] documented as of this encounter Goals GoalPatient Goal TypeAssociated ProblemsRecent ProgressPatient-Stated?Author MYC ECC SURG ENROLL Care PlanMyC ECC SURG ENROLLNoSpFina horn Jdocumented as of this encounter Visit Diagnoses Not on filedocumented in this encounter Additional Health Concerns Active ProblemsNoted DateDiagnosed DateMyC ECC SURG [id number] Noted TimePHQ-9 Depression Total Score: 7106/16/2024 9:06 PM CSTdocumented as of this encounter Care Teams Team MemberRelationshipSpecialtyStart DateEnd Date Mamadou Bowie MD [address] [place] [address] 845325 PCP - Lfaixcz05/13/[address] [place], [place] 050760 ResidentInternal Medicine12/07/14 Trevor Espino MD [address] [place] [address] Urolog05/16/16 Jaci Whitlock APRN WRAPPER OFF [address] [place] [address] Nurse Practitioner - Women's Health12/14/16 Doris Ricci MD [facility] & [address] [address] PhysicianInternal Medicine07/11/20 Yudy Pompa MD [address] [place] [address] Assigned Cancer Care Provider08/21/20 Mary Carmen Rodriguez MD [address] [place] [address] 98 [place], [place] 707515 MDDermatology11/09/20 Herber Lopez MD [address] [place] [address] MDDermapathology11/09/20 Gloria Elizalde MD [address] [place] [address] Resident12/24/22 Mamadou Bowie MD 909 [place] [address] Assigned PCP03/23/23 Makenzie Romano MD [address] [phone] [place], [place] 456504 MDPsychiatry & Neurology - Child & Adolescent Psychiatry11/08/23 Shani Stephenson MD 420 [place], [place] 823615 ResidentPsychiatry11/08/23 Ita Newton Specialty Care Coordinator06/04/24 Kenya Jennings MD 420 [facility] 195 [place], [place] [address]345 MDPlastic Surgery06/04/24 Herber Lopez MD 420 [facility] 98 [place], [place] 984075 Assigned Dermatology Provider07/26/24 Сергей Dumont, [facility] Social Worker08/13/24 Kenya Jennings MD 420 [facility] 195 [place], [place] 985365 Assigned Surgical Provider08/26/24 Carmen Cole PA-C [address] 085425 Assigned Sleep Provider09/25/24 Marita Chisholm, [facility] [address] 3132382 [place], [place] 5[address]14 ZvouldheqbYpuhqkuska64/22/25 Racheal Ng MD [address] [place] [address] Assigned Behavioral Health Nyyfiqup44/23/25 Marita Chisholm [facility] [address] [place] [address] Assigned MTM Usjpqakkmw19/23/25documented as of this encounter
--- OUTSIDE RECORDS SUMMARY | 2025-04-23 05:04 | XMS_ITS | Encounter Summary ---
Author Organization [place] Address [address] [place] [address] Care Team Providers Care Dye Tank Tender Name Role Phone Cindy Ruiz Unavailable [phone] Trevor Espino MD Unavailable [phone] Jaci Whitlock APRN STRATEGIC ALLIANCES MANAGER Unavailable + Doris Ricci MD Unavailable [phone] Yudy Pompa MD Unavailable [phone] Mary Carmen Rodriguez MD Unavailable + Herber Lopez MD Unavailable +[phone] [facility] Hospital[facility] MD Unavailable +[phone] Mamadou Bowie MD Primary Care Provider [phone] Mamadou Bowie MD Unavailable Makenzie Romano MD Unavailable [phone] Shani Stephenson MD Unavailable [phone] Ita Newton Unavailable Unavailable Kenya Jennings MD Unavailable + [phone] Herber Lopez MD Unavailable +[phone] Сергей Dumont [facility] Unavailable Unavailable Kenya Jennings MD Unavailable + [phone] Carmen Cole PA-C Unavailable +[phone] Marita Chisholm [facility] Unavailable [phone] Racheal Ng MD Unavailable + [phone] Marita Chisholm Kenya [facility] Unavailable + [phone] Encounter Details DateTypeDepartmentCare Team (Latest Contact Info)Wdasbskvqkb12/25/2025Travel Social History Tobacco UseTypesPacks/DayYears UsedDateSmoking Tobacco: NeverPassive Smoke Exposure: NeverSmokeless Tobacco: NeverAlcohol UseStandard Drinks/WeekComments Not Currently0 (1 standard drink = 0.6 oz pure alcohol)1 drink every couple of weeksSocial Connection and Isolation PanelAnswerDate RecordedFrequency of Communication with Friends and FamilyNot on file04/02/2024How often do you get together with friends or relatives?Three times a week04/02/2024ttends Worship ServicesNot on file04/02/2024ctive Member of Clubs or OrganizationsNot on file 04/02/2024ttends Club or Organization MeetingsNot on file04/02/2024Marital StatusNot on file04/02/2024HQ-2AnswerDate RecordedPHQ-2 Zpvbt10805/19/2024[facility] [place] of Occupational Health - Occupational Stress QuestionnaireAnswerDate RecordedDo you feel stress - tense, restless, nervous, or anxious, or unable to sleep at night because yourmind is troubled all the time - these days?Only a nxwmsy1804/02/2024Exercise Vital SignAnswerDate RecordedOn average, how many days [...] abandoned building, in an overnight residential, or couch-surfing.)Yes12/20/2024re you worried about losing your [...] ex-partner?No03/23/2025CommentsNoSex and Gender InformationValueDate RecordedSex Assigned at StrvoUkzeuo46/12/2021 10:33 PM CDTLegal SexFemale 03/09/2012 3:58 AM CSTGender Ptlkgzyfraxuk28/12/2021 10:33 PM CDTSexual IwombqudfimKfyhkuc39/17/2020 4:20 AM CSTdocumented as of this encounter Plan of Treatment DateTypeDepartmentCare Team (Latest Contact Info)Ogolvfqvcvb53/29/2025 4:00 PM CSTOffice Visit [facility] [place] [address] [facility] [address] 4th [place] [address] Kenya Jennings MD [address] [place] [address] 195 [place], [place] [address]255 05/20/2025 1:00 PM CSTOffice Visit [facility] [address] [facility] 255 [place] [address] Racheal Ng MD [address] [place] [address] F282 [place], [place] 68[address]34 05/25/2025 10:40 AM CSTOffice Visit [facility] Mental Health & Addiction [address] F[address] [phone] Yael Reaves MD [address] [place] [address] 08/17/2025 12:15 PM CDTOffice Visit [facility] Dermatology Clinic [address] 3rd [place] [phone] Herber Lopez MD 420 [facility] 98 [place], [place] 251445 01/14/2026 1:40 PM CDTAncillary Procedure [facility] Imaging Center CT Clinic [place] [address] [place] [address] 1st [place] [phone] Yudy Pompa MD [address] [place] [address]95 01/18/2026 1:20 PM CDTOncology Visit [facility] [address] [place] [phone] Yudy Pompa MD [address] [place] [address] 059955 documented as of this encounter Goals GoalPatient Goal TypeAssociated ProblemsRecent ProgressPatient-Stated?Author MYC ECC SURG ENROLL Care PlanMyC ECC SURG ENROLLNoSpearFina murray Jdocumented as of this encounter Visit Diagnoses Not on filedocumented in this encounter Additional Health Concerns Active ProblemsNoted DateDiagnosed DateMyC ECC SURG [id number] Noted TimePHQ-9 Depression Total Score: 11:51 AM CSTdocumented as of this encounter Care Teams Team MemberRelationshipSpecialtyStart DateEnd Mamadou Bowie MD 909 [place] [address] PCP - Kapifxj04/13/23 Cindy Ruiz [address] [facility] [place] [address] ResidentInternal Medicine12/07/14 Trevor Espino MD [address] [place] [address] 488835 MDUrolog05/16/16 Jaci Whitlock APRN STRATEGIC ALLIANCES MANAGER [address] [place] [address] 648625 Nurse Practitioner - Women's Health12/14/16 Doris Ricci MD [facility] & [address] [address] PhysicianInternal Medicine07/11/20 Yudy Pompa MD [address] [place] [address] 337755 Assigned Cancer Care Provider08/21/20 Mary Carmen Rodriguez MD [address] 063985 MDDermatology11/09/20 Herber Lopez MD [address] [place] [address] MDDermapathology11/09/20 Gloria Elizalde MD [address] [place] [address] Resident12/24/22 Mamadou Bowie MD [address] [place] [address] Assigned PCP03/23/23 Makenzie Romano MD [address] [place] [address] 258524 MDPsychiatry & Neurology - Child & Adolescent Psychiatry11/08/23 Shani Stephenson MD [address] [place] [address] ResidentPsychiatry11/08/23 Ita Newton Specialty Care Coordinator06/04/24 Kenya Jennings MD [address] [place] [address] MDPlastic Surgery06/04/24 Herber Lopez MD [address] [place] [address] Assigned Dermatology Provider07/26/24 Сергей Dumont, [facility] Social Worker08/13/24 Kenya Jennings MD [address] [place] [address] Assigned Surgical Provider08/26/24 Carmen Cole PA-C 6363 [facility] [place] 847025 Assigned Sleep Provider09/25/24 Marita Chisholm RPH [address] [place] [address] StuanksdmlLiggcjsllz48/22/25 Racheal Ng MD [address] [place] [address] Assigned Behavioral Health Pahjhtfe62/23/25 Marita Chisholm RPH [address] [place] [address] Assigned MTM Oatdfahedm83/23/25documented as of this encounter
--- OUTSIDE RECORDS SUMMARY | 2025-04-23 05:04 | XMS_ITS | Encounter Summary ---
Author Organization [place] Address [address] [place] [address] Care Team Providers Care Coil Connector Repairer Name Role Phone Cindy Ruiz Unavailable [phone] Trevor Espino MD Unavailable [phone] Jaci Whitlock APRN SAFETY LEADER Unavailable + Doris Ricci MD Unavailable Yudy Pompa MD Unavailable [phone] Mary Carmen Rodriguez MD Unavailable + Herber Lopez MD Unavailable +[phone] Gloria Elizalde MD Unavailable [phone] Mamadou Bowie MD Primary Care Provider [phone] Mamadou Bowie MD Unavailable Makenzie Romano MD Unavailable [phone] Shani Stephenson MD Unavailable [phone] Ita Newton Unavailable Unavailable Kenya Jennings MD Unavailable Herber Lopez MD Unavailable +[phone] Сергей Dumont [facility] Unavailable Unavailable Kenya Jennings MD Unavailable +[phone] Carmen Cole PA-C Unavailable +[phone] Jesse Arvizu MD Unavailable Marita Chisholm [facility] Unavailable [phone] Encounter Details DateTypeDepartmentCare Team (Latest Contact Info)Yrwmgjstmaq75/07/2025Travel Social History Tobacco UseTypesPacks/DayYears UsedDateSmoking Tobacco: NeverPassive Smoke Exposure: NeverSmokeless Tobacco: NeverAlcohol UseStandard Drinks/WeekComments Not Currently0 (1 standard drink = 0.6 oz pure alcohol)1 drink every couple of weeksSocial Connection and Isolation PanelAnswerDate RecordedFrequency of Communication with Friends and FamilyNot on file04/02/2024How often do you get together with friends or relatives?Three times a week04/02/2024ttends Christian ServicesNot on file04/02/2024ctive Member of Clubs or OrganizationsNot on file 04/02/2024ttends Club or Organization MeetingsNot on file04/02/2024Marital StatusNot on file04/02/2024HQ-2AnswerDate RecordedPHQ-2 Qmdkb73205/12/2024[facility] [place] of Occupational Health - Occupational Stress QuestionnaireAnswerDate RecordedDo you feel stress - tense, restless, nervous, or anxious, or unable to sleep at night because yourmind is troubled all the time - these days?Only a ihqkkx4804/02/2024Exercise Vital SignAnswerDate RecordedOn average, how many days [...] ex-partner?No03/19/2023CommentsNoSex and Gender InformationValueDate RecordedSex Assigned at QadebNpedjy72/12/2021 10:33 PM CDTLegal SexFemale 03/09/2012 3:58 AM CSTGender Ghxrvoudhbalk27/12/2021 10:33 PM CDTSexual YbrvdafwsljQykkpnm19/17/2020 4:20 AM CSTdocumented as of this encounter Plan of Treatment DateTypeDepartmentCare Team (Latest Contact Info)Dvcbszmpboy06/29/2025 4:00 PM CSTOffice Visit [facility] [place] [address] [facility] [address] 4th [place] [address] Kenya Jennings MD 420 [facility] 195 [place] [address] 05/20/2025 1:00 PM CSTOffice Visit [facility] 5775 [facility] 255 [place] [address] Racheal Ng MD [address] [place] [address] 05/25/2025 10:40 AM CSTOffice Visit [facility] Mental Health & Addiction [facility] [address] [facility] F[address] [phone] Yael Reaves MD 2450 [place], [place] 473754 08/17/2025 12:15 PM CDTOffice Visit [facility] Dermatology Clinic [place] [address] [place] [address] 3rd [place] [phone] Herber Lopez MD 420 [facility] 98 [place], [place] 256145 01/14/2026 1:40 PM CDTAncillary Procedure [facility] Imaging Center CT Clinic [place] [address] [place] [address] 1st [place] [phone] Yudy Pompa MD [address] [place] [address] 15205455 01/18/2026 1:20 PM CDTOncology Visit [facility] [address] [place] [phone] Yudy Pompa MD [address] [place] [address] 222595 documented as of this encounter Goals GoalPatient Goal TypeAssociated ProblemsRecent ProgressPatient-Stated?Author MYC ECC SURG ENROLL Care PlanMyC ECC SURG ENROLLNoSpearFina murraydocumented as of this encounter Visit Diagnoses Not on filedocumented in this encounter Additional Health Concerns Active ProblemsNoted DateDiagnosed DateMyC ECC SURG ZZSOWY9709/11/2024ssessment Noted TimePHQ-9 Depression Total Score: 11:51 AM CSTdocumented as of this encounter Care Teams Team MemberRelationshipSpecialtyStart DateEnd Mamadou Bowie MD 909 [place], [place] 182685 PCP - Zttdlbq65/13/23 [address] Ruiz [address] [place], [place] 417[address] ResidentInternal Medicine12/07/14 Trevor Espino MD [address] [place] [address] Urolog05/16/16 Jaci Whitlock APRN CNP [address] [place] [address] Nurse Practitioner - Women's Health12/14/16 Doris Ricci MD [facility] & [address] [address] PhysicianInternal Medicine07/11/20 Yudy Pompa MD [address] [place] [address] Assigned Cancer Care Provider08/21/20 Mary Carmen [place] MD 420 [facility] 98 [place] [address] MDDermatology11/09/20 Herber Lopez MD [address] [place] [address] 98 [place], [place] 598385 MDDermapathology11/09/20 Gloria Elizalde MD 420 [place], [place] 648055 Resident12/24/22 Mamadou Bowie MD 909 [place], [place] 731815 Assigned PCP03/23/23 Makenzie Romano MD 2450 [facility] 56 [place] [address] MDPsychiatry & Neurology - Child & Adolescent Psychiatry11/08/23 Shani Stephenson MD 420 [place], [place] 761405 ResidentPsychiatry11/08/23 Ita Newton Specialty Care Coordinator06/04/24 Kenya Jennings MD 420 [facility] 195 [place] [address] MDPlastic Surgery06/04/24 Herber Lopez MD 420 [facility] 98 [place], [place] 736505 Assigned Dermatology Provider07/26/24 Сергей Dumont [facility] Social Worker08/13/24 Kenya Jennings MD 420 [facility] 195 [place] [address] Assigned Surgical Provider08/26/24 Carmen Cole PA-C 6[address] [facility] [address] [address] [place] 275815 Assigned Sleep Provider09/25/24 Jesse Arvizu MD 5775 [place], [place] 333426 Assigned Behavioral Health Provider12/26/2510 Marita Chisholm [facility] [address] [address] XsklkioajbOsakjxmhmk43/22/25documented as of this encounter
--- OUTSIDE RECORDS SUMMARY | 2025-04-23 05:04 | XMS_ITS | Encounter Summary ---
Author Organization [place] Address [address] [place] [address] Care Team Providers Care Patternmaker Bench Name Role Phone Cindy Ruiz Unavailable [phone] Trevor Espino MD Unavailable [phone] Jaci Whitlock APRN FLEXIBLE BABYSITTER Unavailable + Doris Ricci MD Unavailable [phone] Yudy Pompa MD Unavailable [phone] Mary Carmen Rodriguez MD Unavailable + Herber Lopez MD Unavailable [phone] [facility] Unavailable [phone] Mamadou Bowie MD Primary Care Provider [phone] Mamadou Bowie MD Unavailable Makenzie Romano MD Unavailable [phone] Shani Stephenson MD Unavailable [phone] Ita Newton Unavailable Unavailable Kenya Jennings MD Unavailable + [phone] Herber Lopez MD Unavailable [phone] Сергей Dumont [facility] Unavailable Unavailable Kenya Jennings MD Unavailable [phone] Carmen Cole PA-C Unavailable [phone] Marita Chisholm [facility] Unavailable [phone] Racheal Ng MD Unavailable + [phone] Marita Chisholm Kenya [facility] Unavailable + [phone] Encounter Details DateTypeDepartmentCare Team (Latest Contact Info)Iucnjiockda34/24/2025Travel Social History Tobacco UseTypesPacks/DayYears UsedDateSmoking Tobacco: NeverPassive Smoke Exposure: NeverSmokeless Tobacco: NeverAlcohol UseStandard Drinks/WeekComments Not Currently0 (1 standard drink = 0.6 oz pure alcohol)1 drink every couple of weeksSocial Connection and Isolation PanelAnswerDate RecordedFrequency of Communication with Friends and FamilyNot on file04/02/2024How often do you get together with friends or relatives?Three times a week04/02/2024ttends Caodaism ServicesNot on file04/02/2024ctive Member of Clubs or OrganizationsNot on file 04/02/2024ttends Club or Organization MeetingsNot on file04/02/2024Marital StatusNot on file04/02/2024HQ-2AnswerDate RecordedPHQ-2 Ujcxk09005/19/2024Fin[facility] [place] of Occupational Health - Occupational Stress QuestionnaireAnswerDate RecordedDo you feel stress - tense, restless, nervous, or anxious, or unable to sleep at night because yourmind is troubled all the time - these days?Only a hzcagb0804/02/2024Exercise Vital SignAnswerDate RecordedOn average, how many days [...] ex-partner?No03/23/2025CommentsNoSex and Gender InformationValueDate RecordedSex Assigned at SybubSkmxyw19/12/2021 10:33 PM CDTLegal SexFemale 03/09/2012 3:58 AM CSTGender Akxffofsdtbiu94/12/2021 10:33 PM CDTSexual AlvshcjkmgpYrunwzf69/17/2020 4:20 AM CSTdocumented as of this encounter Plan of Treatment DateTypeDepartmentCare Team (Latest Contact Info)Wujbnwobtth52/29/2025 4:[address] [facility] [place] [address] [facility] [address] 4th [place] [address] Kenya Jennings MD [address] [place] [address] 195 [place], [place] 4[address]25 05/20/2025 1:00 PM CSTOffice Visit [facility] [address] [facility] 255 [place] [address] Racheal Ng MD [address] [place] [address] F282 [place], [place] [address] 05/25/2025 10:[address] Mental Health & Addiction [address] [phone] Yael Reaves MD [address] [place] [address] 08/17/2025 12:[address] Dermatology Clinic [address] 3rd [place] [phone] Herber Lopez MD 420 [facility] 98 [place], [place] 692875 01/14/2026 1:[address] Imaging Center CT [facility] [place] [address] [place] [address] 1st [place] [phone] Yudy Pompa MD [address] [place] [address] 701135 01/18/2026 1:[address] [address] [place] [phone] Yudy Pompa MD [address] [place] [address] 076565 documented as of this encounter Goals GoalPatient Goal TypeAssociated ProblemsRecent ProgressPatient-Stated?Author MYC ECC SURG ENROLL Care PlanMyC ECC SURG ENROLLNoSpearFina murray Jdocumented as of this encounter Visit Diagnoses Not on filedocumented in this encounter Additional Health Concerns Active ProblemsNoted DateDiagnosed DateMyC ECC SURG [id number] Noted TimePHQ-9 Depression Total Score: 11:51 AM CSTdocumented as of this encounter Care Teams Team MemberRelationshipSpecialtyStart DateEnd Mamadou Bowie MD 909 [place] [address] PCP - Zlcfdom22/13/23 Cindy Ruiz [facility] [place] [address] ResidentInternal Medicine12/07/14 Trevor Espino MD [address] [place] [address] 613475 MDUrolog05/16/16 Jaci Whitlock APRN FLEXIBLE BABYSITTER [address] [place] [address] 976755 Nurse Practitioner - Women's Health12/14/16 Doris Ricci MD [facility] & [address] [address] PhysicianInternal Medicine07/11/20 Yudy Pompa MD [address] [place] [address] 812865 Assigned Cancer Care Provider08/21/20 Mary Carmen Rodriguez MD [address] 803505 MDDermatology11/09/20 Herber Lopez MD [address] [place] [address] MDDermapathology11/09/20 Gloria Elizalde MD [address] [place] [address] Resident12/24/22 Mamadou Bowie MD [address] [place] [address] Assigned PCP03/23/23 Makenzie Romano MD [address] [place] [address] 932514 MDPsychiatry & Neurology - Child & Adolescent Psychiatry11/08/23 Shani Stephenson MD [address] [place] [address] ResidentPsychiatry11/08/23 Ita Newton Specialty Care Coordinator06/04/24 Kenya Jennings MD [address] [place] [address] MDPlastic Surgery06/04/24 Herber Lopez MD [address] [place] [address] Assigned Dermatology Provider07/26/24 Сергей Dumont, [facility] Social Worker08/13/24 Kenya Jennings MD [address] [place] [address] Assigned Surgical Provider08/26/24 Carmen Cole PA-C 6363 [facility] [place] 7[address] Assigned Sleep Provider09/25/24 Marita Chisholm RPH [address] [place] [address] LrruwavcxrEibbfzjyyt57/22/25 Racheal Ng MD [address] [place] [address] Assigned Behavioral Health Bkvdjvjr41/23/25 Marita Chisholm RPH [address] [place] [address] Assigned MTM Hucpeghnur11/23/25documented as of this encounter
--- OUTSIDE RECORDS SUMMARY | 2025-04-23 05:04 | XMS_ITS | Encounter Summary ---
Author Organization [place] Address [address] [place] [address] Care Team Providers Care Clinical Training Specialist Name Role Phone Cinyd Ruiz Unavailable Trevor Espino MD Unavailable [phone] Jaci Whitlock APRN FLOOR TILING PROFESSIONAL Unavailable + Doris Ricci MD Unavailable Yudy Pompa MD Unavailable [phone] Mary Carmen Rodriguez MD Unavailable + Herber Lopez MD Unavailable [phone] Gloria Elizalde MD Unavailable [phone] Mamadou Bowie MD Primary Care Provider [phone] Mamadou Bowie MD Unavailable Makenzie Romano MD Unavailable [phone] Shani Stephenson MD Unavailable [phone] Ita Newton Unavailable Unavailable Kenya Jennings MD Unavailable Herber Lopez MD Unavailable [phone] Сергей Dumont [facility] Unavailable Unavailable Kenya Jennings MD Unavailable Carmen Cole PA-C Unavailable [phone] Jesse Arvizu MD Unavailable Marita Chisholm [facility] Unavailable [phone] Encounter Details DateTypeDepartmentCare Team (Latest Contact Info)Aaxasoguyii31/21/2025Tebalbir Eulalia [facility] Plastic and Reconstructive Surgery Clinic [address] 4th [place] [address] Antonette Ferrari, RN Social History Tobacco UseTypesPacks/DayYears UsedDateSmoking Tobacco: NeverPassive Smoke Exposure: NeverSmokeless Tobacco: NeverAlcohol UseStandard Drinks/WeekComments Not Currently0 (1 standard drink = 0.6 oz pure alcohol)1 drink every couple of weeksSocial Connection and Isolation PanelAnswerDate RecordedFrequency of Communication with Friends and FamilyNot on file04/02/2024How often do you get together with friends or relatives?Three times a week04/02/2024ttends Buddhism ServicesNot on file04/02/2024ctive Member of Clubs or OrganizationsNot on file 04/02/2024ttends Club or Organization MeetingsNot on file04/02/2024Marital StatusNot on file04/02/2024HQ-2AnswerDate RecordedPHQ-2 Dshkv34605/19/2024[facility] [place] of Occupational Health - Occupational Stress QuestionnaireAnswerDate RecordedDo you feel stress - tense, restless, nervous, or anxious, or unable to sleep at night because yourmind is troubled all the time - these days?Only a lintug0104/02/2024Exercise Vital SignAnswerDate RecordedOn average, how many days [...] ex-partner?No03/23/2025CommentsNoSex and Gender InformationValueDate RecordedSex Assigned at IpcaiHkcilu98/12/2021 10:33 PM CDTLegal SexFemale 03/09/2012 3:58 AM CSTGender Zygotkubndmhg67/12/2021 10:33 PM CDTSexual LawkgnldwyiKynpbfz78/17/2020 4:20 AM CSTdocumented as of this encounter Miscellaneous Notes * Telephone Encounter - Antonette Ferrari RN - 03/26/2025 11:21 AM CST RN called patient for post-surgery follow up on POD-2. Left VM with call back number. OFILM TECHNICIAN documented in this encounter Plan of Treatment DateTypeDepartmentCare Team (Latest Contact Info)Rmksfqjgszk51/29/2025 4:00 PM CSTOffice Visit [facility] Plastic and Re[facility]ive [facility] Clinic [address] 4th [place] [phone] Kenya Jennings MD 420 [facility] 195 [place], [place] 86[address] 05/20/2025 1:00 PM CSTOffice Visit [facility] 5775 [facility] [address] [place] [phone] Racheal Ng MD 2450 [facility] F282 [place], [place] 64[address] 05/25/2025 10:40 AM CSTOffice Visit [facility] Mental Health & Addiction [address] F[address] [phone] Yael Reaves MD [facility]0 [place], [place] 47[address] 08/17/2025 12:15 PM CDTOffice Visit [facility] Dermatology Clinic [address] 3rd [place] [phone] Herber Lopez MD 420 [facility] 98 [place], [place] [address]105 01/14/2026 1:40 PM CDTAncillary Procedure [facility] Imaging Center CT Clinic [address] 1st [place] [phone] Yudy Pompa MD [address] [place] [address] 936445 01/18/2026 1:20 PM CDTOncology Visit [facility] [address] [place] [phone] Yudy Pompa MD [address] [place] [address] 622755 documented as of this encounter Goals GoalPatient Goal TypeAssociated ProblemsRecent ProgressPatient-Stated?Author MYC ECC SURG ENROLL Care PlanMyC ECC SURG ENROLLNoSpFina horn Jdocumented as of this encounter Visit Diagnoses Not on filedocumented in this encounter Additional Health Concerns Active ProblemsNoted DateDiagnosed DateMyC ECC SURG JRGXFB7109/11/2024ssessment Noted TimePHQ-9 Depression Total Score: 11:51 AM CSTdocumented as of this encounter Care Teams Team MemberRelationshipSpecialtyStart DateEnd Date Mamadou Bowie MD [address] [place] [address] 611815 PCP - Nineogg88/13/23 Cindy Ruiz [facility] [place] [address] ResidentInternal Medicine12/07/14 Trevor Espino MD [address] [place] [address] 067525 MDUrolog05/16/16 Jaci Whitlock APRN FLOOR TILING PROFESSIONAL [address] [place] [address] 887515 Nurse Practitioner - Women's Health12/14/16 Doris Ricci MD [facility] 1999 [place] [address] PhysicianInternal Medicine07/11/20 Yudy Pompa MD [address] [place] [address] 614505 Assigned Cancer Care Provider08/21/20 Mary Carmen Rodriguez MD [address] [place] [address] MDDermatology11/09/20 Herber Lopez MD [address] [place] [address] 666975 MDDermapathology11/09/20 Gloria Elizalde MD [address] [place] [address] 637395 Resident12/24/22 Mamadou Bowie MD [address] [place] [address] 758015 Assigned PCP03/23/23 Makenzie Romano MD [address] [place] [address] MDPsychiatry & Neurology - Child & Adolescent Psychiatry11/08/23 Shani Stephenson MD [address] [place] [address] ResidentPsychiatry11/08/23 Ita Newton Specialty Care Coordinator06/04/24 Kenya Jennings MD [address] [place] [address] MDPlastic Surgery06/04/24 Herber Lopez MD [address] [place] [address] 368575 Assigned Dermatology Provider07/26/24 Сергей Dumont, [employer]ANT OPERATOR Social Worker08/13/24 Kenya Jennings MD 420 [facility] 195 [place], [place] 478745 Assigned Surgical Provider08/26/24 Carmen Cole PA-C 6363 [facility] [address] 608975 Assigned Sleep Provider09/25/24 Jesse Arvizu MD 5775 [place], [place] [phone] Assigned Behavioral Health Provider12/26/2510 Marita Chisholm, [facility]0 [facility] [address] [place], [place] [phone] MarnglnepeHfexgwbggf10/22/25documented as of this encounter
[2025-04-23 05:10] VITALS: BP 147/83; PULSE 75; RESP 16; TEMP 36.3; O2SAT 97; BMI 38.7
--- NOTE | 2025-04-23 05:18 | ED.GENADULT ---
HPI - General Adult General Time Seen by Provider: 05:18 Date Seen: 04/23/25 Chief complaint: Flank Pain Stated complaint: Kidney Stone Time Seen by Provider: 04/23/25 05:18 Source: patient Mode of arrival: ambulatory Limitations: no limitations History of Present Illness HPI narrative: 59-year-old female who comes in today with flank pain. Patient is a couple days of right-sided flank pain radiating the right lower quadrant, dysuria and frequency. No fever nor chills. Has a history of kidney stones and says this feels similar. Taking Tylenol and Naprosyn for pain, took 1 oxycodone earlier as well. Has some nausea but no vomiting. Related Data Home Medications ?Medication ?Instructions ?Recorded ?Confirmed multivitamin 1 tab PO QAM 12/19/21 10/28/24 sumatriptan succinate 25 mg tablet 25 mg PO ONCE PRN 12/19/21 10/28/24 (Imitrex) bupropion HCl 200 mg tablet,12 hr 200 mg PO BID 12/16/23 10/28/24 sustained-release hydroxyzine HCl 25 mg tablet 25 mg PO DAILY PRN 07/02/24 10/28/24 methylphenidate HCl 5 mg tablet 5 mg PO QDAY PRN 07/02/24 10/28/24 prazosin 1 mg capsule 1 mg PO QHS 07/02/24 10/28/24 tranylcypromine 10 mg tablet 20 mg PO BID 10/28/24 10/28/24 Previous Rx's ?Medication ?Instructions ?Recorded prochlorperazine maleate 5 mg 5 mg PO Q8H PRN nausea #20 tabs 12/23/23 tablet ondansetron 4 mg disintegrating 4 mg PO Q6H PRN nausea and 04/23/25 tablet vomiting #20 tabs oxycodone 5 mg tablet 5 mg PO Q6H PRN pain #10 tabs 04/23/25 Allergies Allergy/AdvReac Type Severity Reaction Status Date / Time Sulfa (Sulfonamide Allergy Intermediate Rash Verified 10/28/24 19:23 Antibiotics) adhesive Allergy Mild Rash Verified 10/28/24 19:23 PFSH PFSH Medical History History of endometrial cancer ?Z85.42 - Personal history of malignant neoplasm of other parts of uterus (ICD-10) History of renal calculi ?Z87.442 - Personal history of urinary calculi (ICD-10) Surgical History History of total hysterectomy with bilateral salpingo-oophorectomy (BSO) (2016) ?Z90.710 - Acquired absence of both cervix and uterus (ICD-10) ?Z90.722 - Acquired absence of ovaries, bilateral (ICD-10) ?Z90.79 - Acquired absence of other genital organ(s) (ICD-10) History of parathyroidectomy (01/22/11) ?E89.2 - Postprocedural hypoparathyroidism (ICD-10) History of ovarian cystectomy (11/16/10) ?Z98.890 - Other specified postprocedural states (ICD-10) ?Z87.42 - Personal history of other diseases of the female genital tract (ICD-10) 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) ?Z90.2 - Acquired absence of lung [part of] (ICD-10) History of appendectomy (11/16/10) ?Z90.49 - Acquired absence of other specified parts of digestive tract (ICD-10) Social History Smoking Status: Never smoker Do you use any of these nicotine containing products: None Second hand tobacco smoke exposure: No How often do you have a drink containing alcohol: never AUDIT-C Alcohol total score: 0 Non-prescribed substance use: denies use service: No Exam Narrative: Exam Narrative: General: Well-developed and well-nourished, no acute distress Head: Atraumatic and normocephalic Eyes: Pupils are equal reactive, extraocular motions intact, conjunctiva clear ENT: External nose and ears are normal, posterior pharynx without erythema or exudate Neck: No midline cervical tenderness, full spontaneous range of motion the neck, trachea midline, no adenopathy Heart: Regular rate and rhythm no murmurs or thrills Lungs: Clear to auscultation bilaterally without wheezes or crackles Abdomen: Soft, nontender, nondistended with active bowel sounds Musculoskeletal: No tenderness, deformity, or edema Neurologic: Awake, alert, and oriented x3, no gross focal neurologic deficits, cranial nerves intact as tested Psych: Mood and affect are appropriate Skin: No rashes Const: Vital Signs, click to edit/add: Vital Signs - 24 hr 04/23/25 05:10 Temperature 97.3 F L Pulse Rate [Left P ulse Oximeter] 75 Respiratory Rate 16 Blood Pressure [Ri ght Upper Arm] 147/83 H Pulse Oximetry 97 Oxygen Delivery Me thod Room Air Course Course ED Course: Additional records reviewed: Reviewed prior emergency department visit from October 2024 which was for elevated blood pressure reading with other symptoms. Additional history from: None Care impacted by: Mental health, history of cancer, hypertension Testing considered but not performed: See ED course Disposition: Discharged Patient presents today with right flank pain and right lower quadrant pain along some dysuria. History of kidney stones says this feels similar. On exam appears comfortable, vital is stable, no right lower tenderness. Labs ordered, discussed CT scan which patient declines as she has had numerous CT scans in her life. She also says ?half the time my stones do not show up. As patient reports history of kidney stones and relatively comfortable with no fever and no atypical symptoms, I think this is reasonable and in keeping with care guidelines. Labs ordered to evaluate for possible infected stone, Toradol and Zofran ordered and plan for discharge with medicine for pain and nausea. Reevaluation(s) Time of Reevaluation #1: 06:02 Reevaluation #1: Labs are reassuring with normal CBC normal urinalysis, no blood but no evidence of infection. I am suspicious the patient may not have kidney stone but given flank pain reported history be discharged. If returns with continued pain, would recommend CT scan prior to further treatment. Vital Signs Vital signs: Initial Vital Signs Temperature 97.3 F L 04/23/25 05:10 Temperature Source Temporal Artery Scan 04/23/25 05:10 Pulse Rate 75 04/23/25 05:10 Respiratory Rate 16 04/23/25 05:10 Blood Pressure 147/83 H 04/23/25 05:10 Blood Pressure Mean 104 04/23/25 05:10 Blood Pressure Position Semi-Fowlers 04/23/25 05:10 Pulse Oximetry 97 04/23/25 05:10 Oxygen Delivery Method Room Air 04/23/25 05:10 Vital Signs Temperature 97.3 F L 04/23/25 05:10 Pulse Rate 75 12/19/25 05:10 Respiratory Rate 16 04/23/25 05:10 Blood Pressure 147/83 H 04/23/25 05:10 Pulse Oximetry 97 04/23/25 05:10 Oxygen Delivery Method Room Air 04/23/25 05:10 Temperature 97.3 F L 04/23/25 05:10 Pulse Rate 75 04/23/25 05:10 Respiratory Rate 16 04/23/25 05:10 Blood Pressure 147/83 H 04/23/25 05:10 Pulse Oximetry 97 04/23/25 05:10 Oxygen Delivery Method Room Air 04/23/25 05:10 Medications Administered Medications: Generic Name Dose Route Start Last Admin Trade Name Freq PRN Reason Stop Dose Admin Ketorolac Tromethamine 15 mg 04/23/25 05:25 04/23/25 05:47 Ketorolac 15 Mg/Ml Inj IVP 04/23/25 05:26 15 mg ONCE ONE Administration Ondansetron HCl 4 mg 04/23/25 05:25 04/23/25 05:47 Ondansetron 2 Mg/Ml Inj IVP 04/23/25 05:26 4 mg ONCE ONE Administration Medical Decision Making Lab Data Labs: Lab Results 04/23/25 Range/Units 05:01 WBC 5.51 (4.50-11.00) K/uL RBC 3.81 L (4.00-5.20) m/uL Hgb 11.1 L (12.0-16.0) gm/dL Hct 35.2 (33.0-51.0) % MCV 92 (80-100) fL MCH 29 (26-34) pg MCHC 32 (32-36) gm/dL RDW Coeff of Adrianna 13.5 (11.5-15.5) % Plt Count 316 (140-440) K/uL Neut % (Auto) 45.9 (42.0-72.0) % Lymph % (Auto) 30.9 (20-44) % [place] % (Auto) 10.2 (0.0-11.0) % Eos % (Auto) 11.4 H (0.0-7.0) % Baso % (Auto) 0.9 (0.0-3.0) % Neut # (Auto) 2.53 (1.7-7.0) K/uL Lymph # (Auto) 1.70 (0.90-2.90) K/uL [place] # (Auto) 0.60 (0.00-0.90) K/UL Eos # (Auto) 0.60 H (0.00-0.50) K/uL Baso # (Auto) 0.05 (0.00-0.30) K/uL Abs Immat Gran (auto) 0.04 (0.00-0.30) K/uL Imm/Tot Granulo (auto) 0.7 % Sodium 138 (135-149) mmol/L Potassium 4.0 (3.6-5.1) mmol/L Chloride 102 (96-114) mmol/L Carbon Dioxide 29 (20-32) mmol/L Anion Gap 7 (7-15) mEq/L BUN 20 (7-30) mg/dL Creatinine 0.8 (0.5-1.5) mg/dL Estimated Creat Clear 80.87 Estimated GFR 84 ml/min Glucose 109 (60-115) mg/dL Calcium 9.0 (8.4-10.6) mg/dL Urine Color Yellow (Yellow) Urine Appearance Clear (Clear) Urine pH 5.5 (5.0-8.5) Ur Specific Elizabeth 1.015 (1.000-1.030) Urine Protein Negative (Negative) Urine Glucose (UA) Negative (Negative) Urine Ketones Negative (Negative) Urine Blood 1+ A (Negative) Urine Nitrite Negative (Negative) Urine Bilirubin Negative (Negative) Urine Urobilinogen 0.2 (0.2-1.0) Ur Leukocyte Esterase 1+ A (Negative) Urine RBC 0-2 (0-2) Urine WBC 2-5 (0-5) Ur Squamous Epith Cells Moderate A (None-Few) Urine Bacteria Few A (None) Discharge Plan Discharge Clinical Impression: Acute flank pain, H/O renal calculi Patient Disposition: Home, Self-Care Condition: Stable Instructions: Kidney Stones (ED), Flank Pain (ED) Additional Instructions: Continue Tylenol and ibuprofen or Naprosyn Drink to thirst Follow-up with urology Activity Level: Activity as Tolerated Discharge Diet: Regular Prescriptions: New ondansetron 4 mg tablet,disintegrating 4 mg PO Q6H PRN (Reason: nausea and vomiting) Qty: 20 0RF oxycodone 5 mg tablet 5 mg PO Q6H PRN (Reason: pain) Qty: 10 0RF No Action multivitamin Tablet 1 tab PO QAM sumatriptan succinate [Imitrex] 25 mg tablet 25 mg PO ONCE PRN bupropion HCl 200 mg tablet sustained-release 12 hr 200 mg PO BID hydroxyzine HCl 25 mg tablet 25 mg PO DAILY PRN prazosin 1 mg capsule 1 mg PO QHS methylphenidate HCl 5 mg tablet 5 mg PO QDAY PRN tranylcypromine 10 mg tablet 20 mg PO BID prochlorperazine maleate 5 mg tablet 5 mg PO Q8H PRN (Reason: nausea) Qty: 20 1RF Follow Up/Referrals: Doris Ricci MD [Primary Care Provider, Internal Medicine] Stand Alone Forms: [facility] Info Instructions
[2025-04-23 05:46] LABS: Appearance Urine Clear (Clear)
[2025-04-23] MEDS: ONDANSETRON 2 MG/ML inj 4 MG IVP (05:47)
[2025-04-23 05:53] LABS: Hematocrit* 35.2 % (33.0-51.0); Hemoglobin* 11.1 gm/dL (12.0-16.0); Immature Granulocytes Abs Auto 0.04 K/uL (0.00-0.30); Immature Granulocytes Pct Auto 0.7 %; Lymphocytes Absolute Auto 1.70 K/uL (0.90-2.90); Mean Corpuscular HGB Conc 32 gm/dL (32-36); Mean Corpuscular Hemoglobin 29 pg (26-34); Mean Corpuscular Volume 92 fL (80-100); RDW Coefficient of Variation % 13.5 % (11.5-15.5); Red Blood Count* 3.81 m/uL (4.00-5.20); White Blood Count* 5.51 K/uL (4.50-11.00)
[2025-04-23 05:55] LABS: Slide Review Reflex No
[2025-04-23 06:01] LABS: Chloride* 102 mmol/L (96-114); Potassium* 4.0 mmol/L (3.6-5.1); Sodium* 138 mmol/L (135-149)
[2025-04-23 06:04] LABS: Anion Gap 7 mEq/L (7-15); Blood Urea Nitrogen* 20 mg/dL (7-30); Calcium* 9.0 mg/dL (8.4-10.6); Carbon Dioxide* 29 mmol/L (20-32); Creatinine* 0.8 mg/dL (0.5-1.5); Est. Creatinine Clearance* 80.87; Estimated Glomerular Filt Rate 84 ml/min; Glucose* 109 mg/dL (60-115)
== END 2025-04-23 06:29 | disposition home or self-care (01) ==
LOC: ED 05:36
PROVIDERS: Emergency Provider Family Medicine; PCP Internal Medicine
DX: R10.31 Right lower quadrant pain (principal); Z87.442 Personal history of urinary calculi
CPT/HCPCS: 36415; 80048; 81001; 85025; 87086; 96374; 96375; 99284; J1885; J2405